=== PATIENT | male | born 1960 | race African-American/Black ===

== ENCOUNTER 2018-01-10 22:40 | Inpatient (IN) | payer OTHER ==
[2018-01-10] MEDS ORDERED: NA CHLORIDE 0.9% 1,000 ML ONE (23:35)
[2018-01-10 23:43] LABS: Absolute Lymphocytes (CBC) 2.2 K/uL (0.7-4.9); Absolute Monocytes 0.7 K/uL (0.1-1.3); Basophils % 1.3 % (0-1.3); Eosinophils % 1.2 % (0-4.4); Hematocrit 44.4 % (39.6-49.0); Lymphocytes % 24.1 % (15.3-44.8); MCH 30.3 pg (27.0-35.0); MCV 95.5 fL (80-100); MPV 10.9 fL (7.6-11.3); Monocytes % 7.6 % (3.3-12.3); RBC Red Blood Cell Count 4.65 M/uL (4.33-5.43)
[2018-01-10 23:52] LABS: Urine Blood 1+ (NEG); Urine Glucose 2+ (NEG); Urine Protein NEGATIVE (NEG); Urine pH 5.5 (5.0-7.0)
[2018-01-10 23:57] LABS: Potassium 4.8 mEq/L (3.6-5.0)
[2018-01-11] MEDS ORDERED: NA CHLORIDE 0.9% 1,000 ML ONE (00:54)
--- NOTE | 2018-01-11 01:27 | EDPHYS ---
Physician Documentation [facility] Name: Shai Gonzalez Jr Age: 57 yrs Sex: Male : 1960 Arrival Date: 01/10/2018 Time: 22:41 Bed 19 Private MD: Trent Santiago H ED Physician Dylan Barroso HPI: 01/11 01:21 This 57 yrs old Black Male presents to ER via Ambulatory with complaints of polyuria gs elevated blood sugar. 01:21 Onset: The symptoms/episode began/occurred 2 week(s) ago, and became persistent. gs Associated signs and symptoms: Pertinent positives: polydipsia, polyphagia, Pertinent negatives: anorexia, constipation. Current symptoms: In the emergency department the patient's symptoms are unchanged from the initial presentation. The patient has experienced similar episodes in the past, several times. Historical: - Allergies: 01/10 22:58 No Known Allergies; fc - Home Meds: 22:58 tolterodine 4 mg oral cp24 1 cap once daily [Active]; fc 23:02 Lasix 20 mg Oral tab 1 tab 2 times per day [Active]; cyclobenzaprine 10 mg Oral tab 1 fc tab as needed [Active]; amlodipine 10 mg tab 1 tab once daily [Active]; tramadol 50 mg Oral tab 1 tab as needed [Active]; - PMHx: 22:58 Asthma; Hypertension; Gout; fc 23:02 Back pain; fc - PSHx: 23:02 None; fc - Immunization history:: Last tetanus immunization: unknown. - Social history:: Smoking status: Patient/guardian denies using tobacco. ROS: 01/11 01:21 All other systems are negative. gs Exam: 01:21 Head/Face: Normocephalic, atraumatic. Eyes: Pupils equal round and reactive to light, gs extra-ocular motions intact. Lids and lashes normal. Conjunctiva and sclera are non-icteric and not injected. Cornea within normal limits. Periorbital areas with no swelling, redness, or edema. ENT: Nares patent. No nasal discharge, no septal abnormalities noted. Tympanic membranes are normal and external auditory canals are clear. Oropharynx with no redness, swelling, or masses, exudates, or evidence of obstruction, uvula midline. Mucous membranes moist. Neck: Trachea midline, no thyromegaly or masses palpated, and no cervical lymphadenopathy. Supple, full range of motion without nuchal rigidity, or vertebral point tenderness. No Meningismus. Chest/axilla: Normal chest wall appearance and motion. Nontender with no deformity. No lesions are appreciated. Cardiovascular: Regular rate and rhythm with a normal S1 and S2. No gallops, murmurs, or rubs. Normal PMI, no JVD. No pulse deficits. Respiratory: Lungs have equal breath sounds bilaterally, clear to auscultation and percussion. No rales, rhonchi or wheezes noted. No increased work of breathing, no retractions or nasal flaring. Abdomen/GI: Soft, non-tender, with normal bowel sounds. No distension or tympany. No guarding or rebound. No evidence of tenderness throughout. Back: No spinal tenderness. No costovertebral tenderness. Full range of motion. Skin: Warm, dry with normal turgor. Normal color with no rashes, no lesions, and no evidence of cellulitis. MS/ Extremity: Pulses equal, no cyanosis. Neurovascular intact. Full, normal range of motion. Neuro: Awake and alert, GCS 15, oriented to person, place, time, and situation. Cranial nerves II-XII grossly intact. Motor strength 5/5 in all extremities. Sensory grossly intact. Cerebellar exam normal. Normal gait. 01:21 Constitutional: The patient appears alert, awake. Vital Signs: 01/10 22:58 BP 153 / 70; Pulse 100; Resp 18; Temp 97.8(O); Pulse Ox 99% on R/A; Weight 145.15 kg fc (R); Height 5 ft. 11 in. (180.34 cm) (R); Pain 0/10; 23:47 BP 153 / 72; Pulse 99; Resp 18; Pulse Ox 100% on R/A; Pain 0/10; ea 01/11 00:08 BP 181 / 88; Pulse 90; Resp 19; Pulse Ox 99% on R/A; ea 01:02 BP 137 / 62; Pulse 95; Resp 18 S; Pulse Ox 99% on R/A; ea 01:37 BP 134 / 54; Pulse 90; Resp 20 S; Pulse Ox 98% on R/A; ea 02:19 BP 134 / 70; Pulse 92; Resp 18 S; Pulse Ox 99% on R/A; ea 04/10 22:58 Body Mass Index 44.63 (145.15 kg, 180.34 cm) MDM: 01/10 23:26 Patient medically screened. 01/11 01:21 Differential diagnosis: DKA, hyperglycemia, new onset diabetes. Data reviewed: vital gs signs, nurses notes. Response to treatment: the patient's symptoms have mildly improved after treatment, and as a result, I will admit patient. 01/10 23:19 Order name: Urine Dipstick--Ancillary (enter results); Complete Time: 00:20 rg2 01/10 23:26 Order name: CBC with Diff; Complete Time: 00:20 gs 01/10 23:26 Order name: Basic Metabolic Panel; Complete Time: 00:20 Administered Medications: 01/10 23:38 Drug: NS 0.9% 1000 ml Route: IV; Rate: 1 bolus; Site: right antecubital; ea 01/11 00:58 Follow up: Response: No adverse reaction; IV Status: Completed infusion; IV Intake: ea 1000ml 00:59 Drug: NS 0.9% 1000 ml Route: IV; Rate: 1 bolus; Site: right antecubital; ea 02:21 Follow up: Response: No adverse reaction; IV Status: Completed infusion ea Point of Care Testing: Blood Glucose: 01/10 23:10 Blood Glucose: 500 mg/dL; ea 01/11 02:19 Blood Glucose: 420 mg/dL; ea Ranges: Critical Glucose Levels:Adult <50 mg/dl or >400 mg/dl <40 mg/dl or >180 mg/dl Disposition: 01/11/18 01:27 Hospitalization ordered by Matty Pina for Inpatient Admission. Preliminary diagnosis is Hyperglycemia, unspecified. - Bed requested for Telemetry/MedSurg (Inpatient). - Status is Inpatient Admission. ea - Condition is Stable. - Problem is new. - Symptoms have improved. UTI on Admission? No Critical care time excluding procedures: 01:21 Critical care time: Bedside Care: 10 minutes, Consultation: 10 minutes, Family gs Intervention: 10 minutes. Total time: 30 minutes Signatures: Dispatcher [employer] EDMS Chretien, Merna, RN RN fc Dennys, Zeenat, RN RN cg Lozano, Esha, RN RN ea Barroso, Dylan, MD MD gs
--- NOTE | 2018-01-11 01:27 | ER ---
Nurse's Notes [facility] Name: Shai Gonzalez Jr Age: 57 yrs Sex: Male : 1960 Arrival Date: 01/10/2018 Time: 22:41 Bed 19 Private MD: Trent Santiago H Diagnosis: Hyperglycemia, unspecified Presentation: 01/10 22:54 Presenting complaint: Patient states: that for the past month he has been having fc trouble with urinating frequently, almost every hr. Always feeling thirsty. Went to dr and given Detrol with no improvement. Transition of care: patient was not received from another setting of care. Onset of symptoms was December 2017. Care prior to arrival: None. 22:54 Method Of Arrival: Ambulatory fc 22:54 Acuity: MARIA INES 3 fc Historical: - Allergies: 22:58 No Known Allergies; fc - Home Meds: 22:58 tolterodine 4 mg oral cp24 1 cap once daily [Active]; fc 23:02 Lasix 20 mg Oral tab 1 tab 2 times per day [Active]; cyclobenzaprine 10 mg Oral tab 1 fc tab as needed [Active]; amlodipine 10 mg tab 1 tab once daily [Active]; tramadol 50 mg Oral tab 1 tab as needed [Active]; - PMHx: 22:58 Asthma; Hypertension; Gout; fc 23:02 Back pain; fc - PSHx: 23:02 None; fc - Immunization history:: Last tetanus immunization: unknown. - Social history:: Smoking status: Patient/guardian denies using tobacco. Screenin:38 Abuse screen: Denies threats or abuse. Nutritional screening: No deficits noted. ea Tuberculosis screening: No symptoms or risk factors identified. Fall Risk None identified. Assessment: 23:30 General: Appears in no apparent distress. Behavior is calm, cooperative, appropriate ea for age. General: pt states " I have been urinating a lot and I have been thirsty" , reports he has been urinating a lot for the past few days. . Pain: Denies pain. Neuro: Level of Consciousness is awake, alert, obeys commands, Oriented to person, place, time, situation. Cardiovascular: Heart tones S1 S2 present Patient's skin is warm and dry. Respiratory: Airway is patent Respiratory effort is even, unlabored, Respiratory pattern is regular, symmetrical, Breath sounds are clear bilaterally. GI: No signs and/or symptoms were reported involving the gastrointestinal system. Abdomen is round Bowel sounds present X 4 quads. : Reports excessive urination. EENT: No signs and/or symptoms were reported regarding the EENT system. Derm: Skin is dry, Skin is normal, Skin temperature is warm. Musculoskeletal: Range of motion: intact in all extremities. 01/11 00:59 Reassessment: Patient and/or family updated on plan of care and expected duration. Pain ea level reassessed. Patient is alert, oriented x 3, equal unlabored respirations, skin warm/dry/pink. pt blood glucose >500, physician notified, order obtained, med administered pt tolerated well. 01:37 Reassessment: Patient and/or family updated on plan of care and expected duration. Pain ea level reassessed. Patient is alert, oriented x 3, equal unlabored respirations, skin warm/dry/pink. Patient denies pain at this time. 02:19 Reassessment: Patient and/or family updated on plan of care and expected duration. Pain ea level reassessed. Patient is alert, oriented x 3, equal unlabored respirations, skin warm/dry/pink. Patient denies pain at this time. 02:41 Reassessment: Patient and/or family updated on plan of care and expected duration. Pain ea level reassessed. Patient is alert/active/playful, equal unlabored respirations, skin warm/dry/pink. Report given to receiving nurse. Vital Signs: 01/10 22:58 BP 153 / 70; Pulse 100; Resp 18; Temp 97.8(O); Pulse Ox 99% on R/A; Weight 145.15 kg fc (R); Height 5 ft. 11 in. (180.34 cm) (R); Pain 0/10; 23:47 BP 153 / 72; Pulse 99; Resp 18; Pulse Ox 100% on R/A; Pain 0/10; ea 01/11 00:08 BP 181 / 88; Pulse 90; Resp 19; Pulse Ox 99% on R/A; ea 01:02 BP 137 / 62; Pulse 95; Resp 18 S; Pulse Ox 99% on R/A; ea 01:37 BP 134 / 54; Pulse 90; Resp 20 S; Pulse Ox 98% on R/A; ea 02:19 BP 134 / 70; Pulse 92; Resp 18 S; Pulse Ox 99% on R/A; ea 01/10 22:58 Body Mass Index 44.63 (145.15 kg, 180.34 cm) ED Course: 01/10 22:41 Patient arrived in ED. am2 22:41 Jack JanieDO Luz Maria is Private Physician. am2 22:55 Triage completed. 22:58 Arm band placed on Patient placed in an exam room, on a stretcher. 23:04 Dylan Barroso MD is Attending Physician. gs 23:04 Esha Lozano, JUAN M is Primary Nurse. ea 23:10 Patient has correct armband on for positive identification. Placed in gown. Bed in low ea position. Call light in reach. Side rails up X 1. 23:30 Inserted saline lock: 20 gauge in right antecubital area, using aseptic technique. ea Blood collected. 01/11 01:26 Matty Pina MD is Hospitalizing Provider. gs 01:34 No provider procedures requiring assistance completed. Patient admitted, IV remains in ea place. Administered Medications: 01/10 23:38 Drug: NS 0.9% 1000 ml Route: IV; Rate: 1 bolus; Site: right antecubital; ea 01/11 00:58 Follow up: Response: No adverse reaction; IV Status: Completed infusion; IV Intake: ea 1000ml 00:59 Drug: NS 0.9% 1000 ml Route: IV; Rate: 1 bolus; Site: right antecubital; ea 02:21 Follow up: Response: No adverse reaction; IV Status: Completed infusion ea Point of Care Testing: Blood Glucose: 01/10 23:10 Blood Glucose: 500 mg/dL; ea 01/11 02:19 Blood Glucose: 420 mg/dL; ea Ranges: Intake: 00:58 IV: 1000ml; Total: 1000ml. ea Outcome: 01:27 Decision to Hospitalize by Provider. gs 01:34 Instructed on the need for admit, Demonstrated understanding of instructions. ea 02:40 Condition: stable ea 02:42 Admitted to Med/surg accompanied by tech, via wheelchair, room 429, Report called to ea Receiving nurse. 02:56 Patient left the ED. ea Signatures: Merna Gutierrez RN RN Vernell Rodriguez am2 Lozano, Esha, Dylan Randall RN, ea, MD MD gs Corrections: (The following items were deleted from the chart) 01/10 23: 00:10 General: Appears in no apparent distress. Behavior is calm, cooperative, ea appropriate for age, ea 00:10 Pain: Denies pain. ea ea 00:10 Neuro: Level of Consciousness is awake, alert, obeys commands, Oriented to ea person, place, time, situation, ea 00:10 General: pt states " I have been urinating a lot and I have been thirsty" , ea reports he has been urinating a lot for the past few days. . ea : 00:10 Cardiovascular: Heart tones S1 S2 present Patient's skin is warm and dry. ea ea 00:10 Respiratory: Airway is patent Respiratory effort is even, unlabored, Respiratory ea pattern is regular, symmetrical, Breath sounds are clear bilaterally. ea 00:10 GI: No signs and/or symptoms were reported involving the gastrointestinal system. ea Abdomen is round Bowel sounds present X 4 quads. ea 00:10 : Reports excessive urination ea ea 00:10 EENT: No signs and/or symptoms were reported regarding the EENT system. ea ea 00:10 Derm: Skin is dry, Skin is normal, Skin temperature is warm ea ea 00:10 Musculoskeletal: Range of motion: intact in all extremities, ea ea 00:00 Blood Glucose: Blood Glucose Jzuwwqt=219 mg/dL. ea ea : 22:59 Blood Glucose: Blood Glucose Izsawpq=168 mg/dL. ea ea
[2018-01-11] MEDS ORDERED: ONDANSETRON 4 MG/2 ML VIAL IV PRN (01:45)
[2018-01-11] MEDS ORDERED: MORPHINE 2 MG/ML SYR IV PRN (01:45)
[2018-01-11] MEDS ORDERED: ACETAMINOPHEN 500 MG TAB PO PRN (01:45)
[2018-01-11 03:07] VITALS: O2SAT 99
[2018-01-11] MEDS: NA CHLORIDE 0.9% 1,000 ML IV SCH ×4 (03:40→20:39)
[2018-01-11 04:32] VITALS: BMI 41.2
[2018-01-11 06:03] LABS: Absolute Lymphocytes (CBC) 2.1 K/uL (0.7-4.9); Absolute Monocytes 0.9 K/uL (0.1-1.3); Absolute Neutrophil 6.1 K/uL (1.8-8.0); Basophils % 0.7 % (0-1.3); Hematocrit 38.5 % (39.6-49.0); Lymphocytes % 22.9 % (15.3-44.8); MCH 29.9 pg (27.0-35.0); MCV 92.4 fL (80-100); MPV 10.8 fL (7.6-11.3); Monocytes % 9.5 % (3.3-12.3); RBC Red Blood Cell Count 4.17 M/uL (4.33-5.43)
[2018-01-11 06:20] LABS: Albumin 3.6 g/dL (3.2-5.5); Bilirubin Total 1.6 mg/dL (0.3-1.2); Potassium 4.4 mEq/L (3.6-5.0); Protein, Total 6.9 g/dL (6.0-8.3)
--- NOTE | 2018-01-11 06:20 | P.HP ---
Certification for Inpatient Patient admitted to: Observation With expected LOS: <2 Midnights Patient will require the following post-hospital care: None Practitioner: I am a practitioner with admitting privileges, knowledge of patient current condition, hospital course, and medical plan of care. Services: Services provided to patient in accordance with Admission requirements found in Title 42 Section 412.3 of the Code of Federal Regulations Patient History Date of Service: 01/11/18 Reason for admission: Hyperosmolar nonketotic syndrome History of Present Illness: Patient is a 57-year-old gentleman who came into the hospital with hyperglycemia. Patient has been running elevated blood sugars for the last 6 months. He has a Glucometer, and in May of last year his blood sugars were in the 200s at times. He started rechecking his blood sugars again in November. His blood sugars have been in the 400s or high. He has not been feeling well and has lost 20-30 lb over the last few months. He does have polydipsia, polyphagia, and polyuria. Patient was admitted to the hospital for further evaluation as his blood sugars were greater than 800. He will need diabetic education prior to discharge. Will have the nursing staff provide this. Allergies No Known Allergies Allergy (Unverified 12/26/11 06:20) Home Medications: Amlodipine Besylate [Amlodipine Besylate] 1 tab PO DAILY 01/11/18 Finasteride [Finasteride] 1 tab PO DAILY 01/11/18 Furosemide [Furosemide] 1 tab PO BIDP PRN 01/11/18 Lifitegrast [Xiidra] 1 drop EACH EYE BID 01/11/18 Tolterodine Tartrate [Tolterodine Tartrate ER] 1 cap PO DAILY 01/11/18 traMADol HCL [Ultram*] 1 tab PO BIDP PRN 01/11/18 - Past Medical/Surgical History Has patient received pneumonia vaccine in the past: No Diabetic: No -: gout -: HTN -: cataracts -: L knee surgery -: hip abscess removal - Family History Father Family History: Reviewed- Non-Contributory - Social History Smoking Status: Never smoker Alcohol use: Yes CD- Drugs: No Caffeine use: Yes Place of Residence: Home Review of Systems 10-point ROS is otherwise unremarkable Physical Examination - Vital Signs Temperature: 97.9 F Blood Pressure: 127/70 Pulse: 88 Respirations: 18 Pulse Ox (%): 98 - Physical Exam General: Alert, In no apparent distress, Oriented x3 HEENT: Atraumatic, PERRLA, Mucous membr. moist/pink, EOMI, Sclerae nonicteric Neck: Supple, 2+ carotid pulse no bruit, No LAD, Without JVD or thyroid abnormality Respiratory: Clear to auscultation bilaterally, Normal air movement Cardiovascular: Regular rate/rhythm, Normal S1 S2, No murmurs Gastrointestinal: Normal bowel sounds, Soft and benign, Non-distended, No tenderness Musculoskeletal: No clubbing, No swelling, No tenderness Integumentary: No rashes Neurological: Normal gait, Normal speech, Normal strength at 5/5 x4 extr, Normal tone, Sensation intact, Cranial nerves 3-12 intact, Normal affect Lymphatics: No axilla or inguinal lymphadenopathy - Studies Laboratory Data (last 24 hrs) 01/10/18 23:32: Sodium 128 L, Potassium 4.8, BUN 27 H, Creatinine 1.26 H, Glucose 841 H* 01/10/18 23:32: WBC 9.1, Hgb 14.1, Hct 44.4, Plt Count 220 Assessment & Plan - Problems (Diagnosis) (1) Hyperosmolar non-ketotic state in patient with type 2 diabetes mellitus Current Visit: Yes Status: Acute (2) History of hypertension Current Visit: Yes Status: Acute (3) History of gout Current Visit: Yes Status: Acute - Plan Plan: 1. Start him on oral hypoglycemic agents 2. Aggressive IV hydration 3. Diabetic education 4. Check a hemoglobin A1c 5. Strict blood pressure control 6. Check lipid profile 7. GI and DVT prophylaxis Discharge Plan: Home Plan to discharge in: 24 Hours - Advance Directives Does patient have a Living Will: No Does patient have a Durable POA for Healthcare: No - Code Status/Comfort Care Code Status Assessed: Yes Code Status: Full Code Critical Care: No Time Spent Managing PTS Care (In Minutes): 50
[2018-01-11] MEDS ORDERED: GLUCAGON 1 MG/VIAL IM PRN (06:31)
[2018-01-11] MEDS ORDERED: D50W 25 GM/50 ML SYRINGE IV PRN (06:31)
[2018-01-11] MEDS: INSULIN -REGULAR HUMAN 50 UNIT/0.5 ML ML SQ SCH ×4 (08:00→20:38)
[2018-01-11] MEDS ORDERED: INSULIN DETEMIR 100 UNIT/1 ML INSULIN SQ SCH ×2 (08:00→21:00)
[2018-01-11] MEDS ORDERED: GLIMEPIRIDE 2 MG TABLET PO SCH (08:00)
[2018-01-11] MEDS ORDERED: glipiZIDE 5 MG TAB PO SCH (08:00)
[2018-01-11 08:51] LABS: Thyroid Stimulating Hormone 0.88 uIU/mL (0.34-5.60)
[2018-01-11] MEDS: FINASTERIDE 5 MG TAB PO SCH (09:00)
[2018-01-11] MEDS: LIFITEGRAST EACH EYE SCH ×2 (09:00→20:29)
[2018-01-11] MEDS ORDERED: TOLTERODINE LA 4 MG CAP PO SCH (09:00)
[2018-01-11] MEDS ORDERED: LISINOPRIL 10 MG TAB PO SCH ×2 (09:00→12:00)
[2018-01-11] MEDS ORDERED: AMLODIPINE 10 MG TAB PO SCH (09:00)
[2018-01-11 09:32] LABS: A1c Component ND mg/dL; Hemoglobin A1c ND % (4-6.0)
[2018-01-11] MEDS: METFORMIN HCL 500 MG TAB PO SCH ×2 (09:37→17:05)
--- NOTE | 2018-01-11 10:49 | P.PN ---
Subjective Date of Service: 01/11/18 Primary Care Provider: Dr. Santiago Chief Complaint: Hyperosmolar nonketotic syndrome Subjective: Improving Physical Examination - Vital Signs Temperature: 97.6 F Blood Pressure: 163/75 Pulse: 89 Respirations: 18 Pulse Ox (%): 98 - Physical Exam General: Alert, In no apparent distress, Oriented x3, Cooperative HEENT: Atraumatic Neck: Supple Respiratory: Clear to auscultation bilaterally, Normal air movement Cardiovascular: Normal pulses, Regular rate/rhythm Gastrointestinal: Normal bowel sounds, Soft and benign, Non-distended Musculoskeletal: No erythema, No tenderness, No warmth Integumentary: No erythema, No warmth, No cyanosis Neurological: Normal speech, Normal strength at 5/5 x4 extr, Normal tone, Normal affect Lymphatics: No axilla or inguinal lymphadenopathy - Studies Laboratory Data (last 24 hrs) 01/10/18 23:32: Sodium 128 L, Potassium 4.8, BUN 27 H, Creatinine 1.26 H, Glucose 841 H* 01/10/18 23:32: WBC 9.1, Hgb 14.1, Hct 44.4, Plt Count 220 Medications List Reviewed: Yes Assessment & Plan - Problems (Diagnosis) (1) Diabetes mellitus Current Visit: Yes Status: Chronic Plan: Will check A1c. Will start basal insulin and metformin. Will teach on diabetes. Will reassess. Anticipate discharge tomorrow once blood sugars are improved. Will continue to monitor closely. Qualifiers: Diabetes mellitus type: type 2 Diabetes mellitus rat exterminator insulin use: without rat exterminator use Diabetes mellitus complication status: with hyperglycemia Qualified Code(s): E11.65 - Type 2 diabetes mellitus with hyperglycemia (2) Obesity Current Visit: Yes Status: Chronic Plan: Will teach on lifestyle modification education. Qualifiers: Obesity type: due to excess calories Obesity classification: adult class 3 (BMI >= 40) Serious obesity comorbidity presence: with serious comorbidity Body mass index: BMI 40.0-44.9 Qualified Code(s): E66.01 - Morbid (severe) obesity due to excess calories; Z68.41 - Body mass index (BMI) 40.0-44.9, adult ; Z68.41 - Body mass index (BMI) 40.0-44.9, adult; Z68.41 - Body mass index (BMI ) 40.0-44.9, adult; Z68.41 - Body mass index (BMI) 40.0-44.9, adult (3) Hypertension Current Visit: Yes Status: Chronic Plan: Will discontinue Norvasc and switched to lisinopril. Will monitor closely and adjust. Qualifiers: Hypertension type: essential hypertension Qualified Code(s): I10 - Essential (primary) hypertension (4) Hyperosmolar non-ketotic state in patient with type 2 diabetes mellitus Onset Date: 01/11/18 Current Visit: Yes Status: Acute Plan: This has improved. Will start basal insulin and metformin. Will teach on diabetes. Anticipate possible discharge tomorrow once blood sugar better improved. (5) Hyponatremia Current Visit: Yes Status: Acute Plan: Will continue with IV fluids. Will monitor and adjust appropriately. (6) BPH (benign prostatic hyperplasia) Current Visit: Yes Status: Chronic Plan: Will continue with his medication. Will need to consider checking PSA. This can be further evaluated as an outpatient by urology. Qualifiers: Lower urinary tract symptom presence: unspecified whether lower urinary tract symptoms present Qualified Code(s): N40.0 - Benign prostatic hyperplasia without lower urinary tract symptoms Discharge Plan: Home Plan to discharge in: 24 Hours Time Spent Managing Pts Care (In Minutes): 55
[2018-01-11] MEDS: ENOXAPARIN 40 MG/0.4 ML SQ SCH (17:04)
[2018-01-11] MEDS: MORPHINE 4 MG/ML SYR IV PRN (18:16)
[2018-01-11] MEDS: ATORVASTATIN 10 MG TAB PO SCH (20:37)
[2018-01-12 04:24] LABS: Absolute Monocytes 0.6 K/uL (0.1-1.3); Basophils % 1.1 % (0-1.3); Eosinophils % 1.7 % (0-4.4); Hematocrit 36.8 % (39.6-49.0); Lymphocytes % 29.5 % (15.3-44.8); MCH 29.8 pg (27.0-35.0); MPV 10.6 fL (7.6-11.3); Monocytes % 8.9 % (3.3-12.3); RBC Red Blood Cell Count 4.04 M/uL (4.33-5.43)
[2018-01-12 04:46] LABS: ALT/SGPT 15 IU/L (10-60); AST/SGOT 11 IU/L (10-42); Albumin 3.3 g/dL (3.2-5.5); Alkaline Phosphatase 52 IU/L (42-121); BUN Blood Urea Nitrogen 19 mg/dL (6-20); Bicarbonate 24 mEq/L (21-31); Glucose Level 379 mg/dL (65-120); Potassium 3.6 mEq/L (3.6-5.0); Protein, Total 6.4 g/dL (6.0-8.3); Sodium Level 134 mEq/L (135-145)
[2018-01-12] MEDS: LIFITEGRAST EACH EYE SCH ×2 (08:41→21:00)
[2018-01-12] MEDS: FINASTERIDE 5 MG TAB PO SCH (08:42)
[2018-01-12] MEDS: INSULIN DETEMIR 100 UNIT/1 ML INSULIN SQ SCH ×3 (08:49→21:47)
[2018-01-12] MEDS: LISINOPRIL 10 MG TAB PO SCH (08:50)
[2018-01-12] MEDS: AMLODIPINE 10 MG TAB PO SCH (08:50)
[2018-01-12] MEDS: METFORMIN HCL 500 MG TAB PO SCH ×2 (08:50→17:50)
[2018-01-12] MEDS: INSULIN -REGULAR HUMAN 50 UNIT/0.5 ML ML SQ SCH ×4 (08:53→21:00)
[2018-01-12] MEDS: NA CHLORIDE 0.9% 1,000 ML IV SCH (09:25)
--- NOTE | 2018-01-12 11:34 | P.PN ---
Subjective Date of Service: 01/12/18 Primary Care Provider: Dr. Santiago Chief Complaint: Hyperosmolar nonketotic syndrome Subjective: Improving Physical Examination - Vital Signs Temperature: 98 F Blood Pressure: 140/70 Pulse: 115 Respirations: 18 Pulse Ox (%): 97 - Physical Exam General: Alert, In no apparent distress, Oriented x3, Cooperative HEENT: Atraumatic, Mucous membr. moist/pink Neck: Supple Respiratory: Clear to auscultation bilaterally, Normal air movement Cardiovascular: Normal pulses, Regular rate/rhythm Gastrointestinal: Normal bowel sounds, Soft and benign, Non-distended, No tenderness, No masses, No rebound, No guarding Musculoskeletal: No erythema, No tenderness, No warmth Integumentary: No tenderness/swelling, No erythema, No warmth, No cyanosis Neurological: Normal speech, Normal strength at 5/5 x4 extr, Normal tone, Normal affect Lymphatics: No axilla or inguinal lymphadenopathy - Studies Medications List Reviewed: Yes Assessment & Plan - Problems (Diagnosis) (1) Diabetes mellitus Current Visit: Yes Status: Chronic Plan: A1c elevated and not able to quantify. Insulin therapy has been increased. Patient on metformin. ADA diet, insulin therapy education has been addressed in detail. This was readdressed with him today. Will monitor blood sugars closely. If blood sugars remain below 300-400 will consider discharge later today. If it remains above 400 will keep in 1 more date for better control. Will reassess this afternoon.. Qualifiers: Diabetes mellitus type: type 2 Diabetes mellitus intermediate insulin use: without long term care administrator use Diabetes mellitus complication status: with hyperglycemia Qualified Code(s): E11.65 - Type 2 diabetes mellitus with hyperglycemia (2) Obesity Current Visit: Yes Status: Chronic Plan: Will continue to teach on lifestyle modification education. Qualifiers: Obesity type: due to excess calories Obesity classification: adult class 3 (BMI >= 40) Serious obesity comorbidity presence: with serious comorbidity Body mass index: BMI 40.0-44.9 Qualified Code(s): E66.01 - Morbid (severe) obesity due to excess calories; Z68.41 - Body mass index (BMI) 40.0-44.9, adult ; Z68.41 - Body mass index (BMI) 40.0-44.9, adult; Z68.41 - Body mass index (BMI ) 40.0-44.9, adult; Z68.41 - Body mass index (BMI) 40.0-44.9, adult (3) Hypertension Current Visit: Yes Status: Chronic Plan: Will continue with Norvasc and Lisinopril. Qualifiers: Hypertension type: essential hypertension Qualified Code(s): I10 - Essential (primary) hypertension (4) Hyperosmolar non-ketotic state in patient with type 2 diabetes mellitus Onset Date: 01/11/18 Current Visit: Yes Status: Acute Plan: This has improved. Will continue with basal insulin and metformin. Will teach on diabetes. Anticipate possible discharge later today (5) Hyponatremia Current Visit: Yes Status: Acute Plan: Will continue with IV fluids. Will monitor and adjust appropriately. (6) BPH (benign prostatic hyperplasia) Current Visit: Yes Status: Chronic Plan: Will discontinue with his medication. This can be further evaluated as an outpatient by urology. Qualifiers: Lower urinary tract symptom presence: unspecified whether lower urinary tract symptoms present Qualified Code(s): N40.0 - Benign prostatic hyperplasia without lower urinary tract symptoms Discharge Plan: Home Plan to discharge in: 24 Hours Time Spent Managing Pts Care (In Minutes): 55
[2018-01-12] MEDS: TRAMADOL HCL 50 MG TAB PO PRN (11:35)
[2018-01-12] MEDS: ASPIRIN EC 81 MG TAB PO SCH (12:43)
[2018-01-12] MEDS: ENOXAPARIN 40 MG/0.4 ML SQ SCH (17:51)
[2018-01-12] MEDS: ATORVASTATIN 10 MG TAB PO SCH (21:46)
[2018-01-12] MEDS: MORPHINE 4 MG/ML SYR IV PRN (21:48)
[2018-01-13] MEDS ORDERED: INSULIN DETEMIR 100 UNIT/1 ML INSULIN SQ SCH (07:26)
[2018-01-13] MEDS: LIFITEGRAST EACH EYE SCH (09:00)
[2018-01-13] MEDS: INSULIN -REGULAR HUMAN 50 UNIT/0.5 ML ML SQ SCH ×2 (09:49→12:31)
[2018-01-13] MEDS: TRAMADOL HCL 50 MG TAB PO PRN (09:50)
[2018-01-13] MEDS: ASPIRIN EC 81 MG TAB PO SCH (09:51)
[2018-01-13] MEDS: LISINOPRIL 10 MG TAB PO SCH (09:51)
[2018-01-13] MEDS: METFORMIN HCL 500 MG TAB PO SCH (09:52)
[2018-01-13] MEDS: AMLODIPINE 10 MG TAB PO SCH (09:52)
[2018-01-13 11:28] VITALS: BP 113/61; TEMP 97.2
--- NOTE | 2018-01-13 14:21 | P.DS ---
Admission Date: 01/11/18 Discharge Date: 01/13/18 Primary Care Provider: Dr. Santiago Disposition: ROUTINE DISCHARGE Discharge Condition: GOOD Reason for Admission: Hyperosmolar nonketotic syndrome - Problems (1) Diabetes mellitus Status: Chronic Qualifiers: Diabetes mellitus type: type 2 Diabetes mellitus long term care pharmacist insulin use: without jail use Diabetes mellitus complication status: with hyperglycemia Qualified Code(s): E11.65 - Type 2 diabetes mellitus with hyperglycemia (2) Obesity Status: Chronic Qualifiers: Obesity type: due to excess calories Obesity classification: adult class 3 (BMI >= 40) Serious obesity comorbidity presence: with serious comorbidity Body mass index: BMI 40.0-44.9 Qualified Code(s): E66.01 - Morbid (severe) obesity due to excess calories; Z68.41 - Body mass index (BMI) 40.0-44.9, adult ; Z68.41 - Body mass index (BMI) 40.0-44.9, adult; Z68.41 - Body mass index (BMI ) 40.0-44.9, adult; Z68.41 - Body mass index (BMI) 40.0-44.9, adult (3) Hypertension Status: Chronic Qualifiers: Hypertension type: essential hypertension Qualified Code(s): I10 - Essential (primary) hypertension (4) Hyperosmolar non-ketotic state in patient with type 2 diabetes mellitus Onset Date: 01/11/18 Status: Acute (5) Hyponatremia Status: Acute (6) BPH (benign prostatic hyperplasia) Status: Chronic Qualifiers: Lower urinary tract symptom presence: unspecified whether lower urinary tract symptoms present Qualified Code(s): N40.0 - Benign prostatic hyperplasia without lower urinary tract symptoms Brief History of Present Illness: 57-year-old male presented to the emergency room with hyperglycemia. Patient found to have hyperosmolar hyperglycemia. Patient with diabetes. Patient had not been diagnose in the past but reported that he had elevated blood sugars. Patient was admitted due to elevated blood sugars. Hospital Course: Patient found to have diabetes. Patient had reported elevated blood sugars in the past. He was not taking any medication. During this time his blood sugars have not been well controlled. He was found to have blood sugars in the range of 800. Hemoglobin A1c was not able to be quantified. The patient was treated during his stay. Patient was started on basal insulin. Better control of his blood sugars were achieved. Patient was started on metformin as well. At discharge patient will continue with Levemir 35 units subcu twice daily and metformin 500 mg 1 pill twice daily with food. Recommendation to maintain blood sugars less than 140 fasting and less than 200 after meals. Patient is to keep a log of his blood sugars. Patient may require further adjustment if blood sugars remain above 200. Further adjustment can be done with the help of his PCP. Patient may require endocrinology evaluation as an outpatient for better control. Patient will continue with a 2200 ADA diet. Education on diet , diabetes and insulin therapy will be provided. Patient has hypertension. Medications had to be adjusted. At discharge, Patient will continue with Norvasc 10 mg daily. Lisinopril 10 mg 1 pill daily has been added. Recommendation is to maintain blood pressures less 150/80. Recommendation is to keep a blood pressure log. Further adjustment can be done by his PCP. Recommendation is to recheck lab-BMP in 1 week to monitor his progress. Patient has hyperlipidemia. Patient started on Lipitor 10 mg 1 pill daily due to elevated lipid levels. This will be continued at discharge. Recommendation is to recheck fasting lipid panel in 1 week to make further adjustments. Patient with obesity. Lifestyle modification education will be provided. Patient likely has underlying sleep apnea. Recommendation is for the patient to have a sleep study done as an outpatient to further evaluate and address. Patient will continue with aspirin 81 mg daily. Previous medication of Proscar has been discontinued. Patient also had been taking medication for incontinence. Both medications were discontinued. PSA within normal range. If the patient has further problems with his prostate the patient may follow up with urology to further evaluate and address. Patient will need a follow up with his PCP to be reassess and be cleared to go back to work. Vital Signs/Physical Exam: Temp Pulse Resp BP Pulse Ox 97.2 F 86 20 113/61 98 01/13/18 11:28 01/13/18 11:28 01/13/18 11:28 01/13/18 11:28 01/13/18 11:28 General: Alert, In no apparent distress, Oriented x3, Cooperative HEENT: Atraumatic, Mucous membr. moist/pink Neck: Supple, No Thyromegaly Respiratory: Clear to auscultation bilaterally, Normal air movement Cardiovascular: Normal pulses, Regular rate/rhythm Gastrointestinal: Normal bowel sounds, Soft and benign, Non-distended, No tenderness, No masses, No rebound, No guarding Musculoskeletal: No erythema, No tenderness, No warmth Integumentary: No tenderness/swelling, No erythema, No warmth, No cyanosis Neurological: Normal speech, Normal strength at 5/5 x4 extr, Normal tone, Normal affect Laboratory Data at Discharge: WBC 6.8 K/uL (4.3-10.9) D 01/12/18 03:34 Hgb 12.1 g/dL (13.6-17.9) L 01/12/18 03:34 Hct 36.8 % (39.6-49.0) L 01/12/18 03:34 Plt Count 202 K/uL (152-406) 01/12/18 03:34 Sodium 134 mEq/L (135-145) L 01/12/18 03:34 Potassium 3.6 mEq/L (3.6-5.0) 01/12/18 03:34 BUN 19 mg/dL (6-20) 01/12/18 03:34 Creatinine 0.95 mg/dL (0.61-1.24) 01/12/18 03:34 Glucose 379 mg/dL (65-120) H 01/12/18 03:34 Total Bilirubin 1.0 mg/dL (0.3-1.2) 01/12/18 03:34 AST 11 IU/L (10-42) 01/12/18 03:34 ALT 15 IU/L (10-60) 01/12/18 03:34 Alkaline Phosphatase 52 IU/L (42-121) 01/12/18 03:34 Triglycerides 281 mg/dL (35-160) H 01/11/18 05:19 Cholesterol 232 mg/dL (<200) H 01/11/18 05:19 HDL Cholesterol 45 mg/dL (27-67) 01/11/18 05:19 Cholesterol/HDL Ratio 5.16 01/11/18 05:19 Home Medications: Lifitegrast [Xiidra] 1 drop EACH EYE BID 01/11/18 traMADol HCL [Ultram*] 1 tab PO BIDP PRN 01/11/18 Amlodipine Besylate 1 tab PO DAILY #30 tablet 01/12/18 Aspirin [Aspirin EC 81 MG] 81 mg PO DAILY #90 tablet. 01/12/18 Atorvastatin Calcium [Lipitor*] 10 mg PO BEDTIME #30 tab 01/12/18 Lisinopril [Prinivil*] 10 mg PO DAILY #30 tab 01/12/18 Metformin HCl [Glucophage*] 500 mg PO BIDWM #60 tab 01/12/18 Insulin Detemir [Levemir Flextouch] 35 unit SQ BID #1 sydney 01/13/18 New Medications: Amlodipine Besylate 1 tab PO DAILY #30 tablet Aspirin [Aspirin EC 81 MG] 81 mg PO DAILY #90 tablet. Atorvastatin Calcium [Lipitor*] 10 mg PO BEDTIME #30 tab Insulin Detemir [Levemir Flextouch] 35 unit SQ BID #1 sydney Lisinopril [Prinivil*] 10 mg PO DAILY #30 tab Metformin HCl [Glucophage*] 500 mg PO BIDWM #60 tab Patient Discharge Instructions: 1. Patient will need to follow up with his PCP within 1 week to follow up this hospitalization. 2. Patient found to have diabetes. This is not well controlled. Patient started on medication. At discharge patient will continue with Levemir 35 units subcu twice daily and metformin 500 mg 1 pill twice daily with food. Recommendation to maintain blood sugars less than 140 fasting and less than 200 after meals. Patient is to keep a log of his blood sugars. Patient may require further adjustment if blood sugars remain above 200. Further adjustment can be done with the help of his PCP. Patient may require endocrinology evaluation as an outpatient for better control. Patient will continue with a 2200 ADA diet. Education on diet , diabetes and insulin therapy will be provided. 3. Patient has hypertension. Patient will continue with Norvasc 10 mg daily. Lisinopril 10 mg 1 pill daily has been added. Recommendation is to maintain blood pressures less 150/ 80. Recommendation is to keep a blood pressure log. Further adjustment can be done by his PCP. Recommendation is to recheck lab-BMP in 1 week to monitor his progress. 4. Patient has hyperlipidemia. Patient started on Lipitor 10 mg 1 pill daily. This will be continued at discharge. Recommendation is to recheck fasting lipid panel in 1 week to make further adjustments. 5. Patient with obesity. Lifestyle modification education will be provided. 6. Patient likely has underlying sleep apnea. Recommendation is for the patient to have a sleep study done as an outpatient to further evaluate and address. 7. Patient will continue with aspirin 81 mg daily. 8. Previous medication of Proscar has been discontinued. PSA within normal range. If the patient has further problems with his prostate the patient may follow up with urology to further evaluate and address. 9. Patient will need a follow up with his PCP to be reassess and be cleared to go back to work. Diet: ADA (0 ADA) Activity: Ad naida Time spent managing pt's care (in minutes): 55
== END 2018-01-13 13:00 | disposition home or self-care (01) | DRG 637 ==
LOC: ER 22:40 → ERHOLD 01-11 01:32 → 4TH 01-11 02:17
PROVIDERS: ADMIT Hospitalist; ATTEND Hospitalist
DX: E11.65 Type 2 diabetes mellitus with hyperglycemia (principal); E11.00 Type 2 diabetes mellitus with hyperosmolarity without nonketotic hyperglycemic-hyperosmolar coma (NKHHC); Z68.41 Body mass index [BMI] 40.0-44.9, adult; E87.1 Hypo-osmolality and hyponatremia; E66.9 Obesity, unspecified; N40.0 Benign prostatic hyperplasia without lower urinary tract symptoms; I10 Essential (primary) hypertension; E78.5 Hyperlipidemia, unspecified
CPT/HCPCS: 36415; 80048; 80053; 80061; 81003; 82962; 83036; 84439; 84443; 85025; 96360; 96361; 99285; G0103; J1650; J2270; J7030

== ENCOUNTER 2018-07-14 14:42 | Emergency (ER) | payer OTHER ==
[2018-07-14] MEDS ORDERED: ONDANSETRON 4 MG/2 ML VIAL ONE (15:41)
[2018-07-14] MEDS ORDERED: MORPHINE 4 MG/ML SYR ONE ×2 (15:41→17:58)
--- NOTE | 2018-07-14 15:53 | RAD REPORT ---
EXAM DESCRIPTION: RAD - Chest Single View - 07/14/2018 3:43 pm CLINICAL HISTORY: abdominal pain Chest pain. COMPARISON: Chest Single View dated 11/30/2016; CHEST SINGLE VIEW dated 10/02/2013; CHEST SINGLE VIEW dated 05/17/2010; CHEST PA AND LAT 2 VIEW dated 10/28/2006 FINDINGS: Portable technique limits examination quality. Right lung base infiltrate is present with a small right pleural effusion. The heart is normal in siz e. No displaced fractures. IMPRESSION: Right lower lobe pneumonia.
[2018-07-14 16:18] LABS: Absolute Lymphocytes (CBC) 1.1 K/uL (0.7-4.9); Absolute Monocytes 0.5 K/uL (0.1-1.3); Absolute Neutrophil 9.8 K/uL (1.8-8.0); Basophils % 0.2 % (0-1.3); Eosinophils % 0.3 % (0-4.4); Hematocrit 47.1 % (39.6-49.0); Lymphocytes % 9.4 % (15.3-44.8); MCH 29.8 pg (27.0-35.0); MCV 90.7 fL (80-100); MPV 10.4 fL (7.6-11.3); Monocytes % 4.7 % (3.3-12.3)
[2018-07-14 16:23] LABS: Protime INR 1.07
[2018-07-14 16:40] LABS: ALT/SGPT 28 U/L (12-78); AST/SGOT 16 U/L (15-37); Albumin 4.1 g/dL (3.4-5.0); Alkaline Phosphatase 69 U/L (45-117); BUN Blood Urea Nitrogen 10 mg/dL (7-18); Bicarbonate 27 mmol/L (21-32); Bilirubin Direct 0.1 mg/dL (0-0.2); Bilirubin Total 0.4 mg/dL (0.2-1.0); Glucose Level 118 mg/dL (74-106); Lipase 162 U/L (73-393); Potassium 3.7 mmol/L (3.5-5.1); Protein, Total 8.8 g/dL (6.4-8.2); Sodium Level 139 mmol/L (136-145); Troponin I < 0.02 ng/mL (0.0-0.045)
[2018-07-14 17:13] LABS: Urine Blood 2+ (NEG); Urine Glucose NEGATIVE (NEG); Urine Protein 3+ (NEG); Urine pH 5.5 (5.0-7.0)
--- NOTE | 2018-07-14 17:24 | RAD REPORT ---
EXAM DESCRIPTION: CTAbdomen Pelvis W Contrast - 07/14/2018 5:12 pm CLINICAL HISTORY: Abdominal pain. ABD PAIN COMPARISON: Abdomen WWo Cont dated 02/23/2017 TECHNIQUE: Biphasic CT imaging of the abdomen and pelvis was performed with 100 ml non-ionic IV cont rast. All CT scans are performed using dose optimization technique as appropriate and may include automated exposure control or mA/KV adjustment according to patient size. FINDINGS: Airspace opacity is present in the right lung base with a right pleural effusion.10 mm per icardial lymph node noted. The liver demonstrates no focal mass or intrahepatic biliary dilatation. The spleen, pancreas, right adrenal gland and kidneys are normal. 3 cm left adrenal mass is present. Significant distention of the colon is present with abrupt transition in the left lower quadrant (kanika ge 49/93). A mass is suspected in this region. Omental caking is present along the greater omentum. M ild to moderate ascites. No evidence of significant lymphadenopathy. No lytic or blastic bone lesion. 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 Moderate grade obstruction of the proximal colon is likely caused by the tumor. Mild ascites. Airspace opacity with a right pleural effusion in the right base probably represents pneumonia or asp iration.
[2018-07-14] MEDS ORDERED: Levofloxacin 750mg IV 750 MG/150 ML BAG IV ONE (17:58)
--- NOTE | 2018-07-14 19:03 | ER ---
Nurse's Notes [facility] Name: Shai Gonzalez Jr Age: 57 yrs Sex: Male : 1960 Arrival Date: 07/14/2018 Time: 14:48 Bed 5 Private MD: Trent Santiago H Diagnosis: Pneumonia due to other specified bacteria;Neoplasm of uncertain behavior of colon Presentation: 07/14 14:59 Presenting complaint: Patient states: Lower abdominal pain that started this AM with aj nausea. reports the pain is worse after patient drinks alcohol. Transition of care: patient was not received from another setting of care. Onset of symptoms was July 14, 2018. Risk Assessment: Do you want to hurt yourself or someone else? Patient reports no desire to harm self or others. Initial Sepsis Screen: Does the patient meet any 2 criteria? No. Patient's initial sepsis screen is negative. Does the patient have a suspected source of infection? No. Patient's initial sepsis screen is negative. Care prior to arrival: None. 14:59 Method Of Arrival: Ambulatory aj 14:59 Acuity: MARIA INES 3 aj Triage Assessment: 15:00 General: Appears in no apparent distress. uncomfortable, obese, Behavior is calm, aj cooperative, appropriate for age. Pain: Complains of pain in right lower quadrant and left lower quadrant. Neuro: Level of Consciousness is awake, alert, obeys commands, Oriented to person, place, time, situation, Appropriate for age. Respiratory: Airway is patent Respiratory effort is even, unlabored, Respiratory pattern is regular, symmetrical. GI: Abdomen is flat. Derm: Skin is intact, is healthy with good turgor, Skin is pink, warm \\T\\ dry. normal. Historical: - Allergies: 15:00 No Known Allergies; aj - Home Meds: 15:00 amlodipine 10 mg tab 1 tab once daily [Active]; cyclobenzaprine 10 mg Oral tab 1 tab as aj needed [Active]; Lasix 20 mg Oral tab 1 tab 2 times per day [Active]; tolterodine 4 mg Oral cp24 1 cap once daily [Active]; tramadol 50 mg Oral tab 1 tab as needed [Active]; - PMHx: 15:00 Asthma; Back pain; Gout; Hypertension; Diabetes - NIDDM; aj - PSHx: 15:00 None; aj - Immunization history:: Adult Immunizations unknown. - Social history:: Smoking status: Patient uses tobacco products, denies chronic smoking, but will smoke occasionally, Patient uses alcohol, on a daily basis. - Ebola Screening: : Patient negative for fever greater than or equal to 101.5 degrees Fahrenheit, and additional compatible Ebola Virus Disease symptoms Patient denies exposure to infectious person Patient denies travel to an Ebola-affected area in the 21 days before illness onset No symptoms or risks identified at this time. Screenin:15 Abuse screen: Denies threats or abuse. Denies injuries from another. Nutritional ss screening: No deficits noted. Tuberculosis screening: Never had TB. Fall Risk None identified. Assessment: 15:15 General: Appears uncomfortable, Behavior is calm, cooperative, Reports feeling ill for ss intermittently x 1 week. Denies fever, chills. Pain: Complains of pain in suprapubic area and right lower quadrant Pain currently is 10 out of 10 on a pain scale. Quality of pain is described as aching, crampy, pressure, sharp, tender, Pain began 1 week ago Is intermittent. Neuro: Level of Consciousness is awake, alert, obeys commands, Oriented to person, place, time, situation, Yarn Skeins Examiner are equal bilaterally Speech is normal, Facial symmetry appears normal. Cardiovascular: Heart tones S1 S2 present Capillary refill < 3 seconds is brisk in bilateral fingers Patient's skin is warm and dry. Respiratory: Airway is patent Respiratory effort is even, unlabored, Respiratory pattern is regular, symmetrical. GI: Bowel sounds present X 4 quads. firm to touch in all quads, patient reports this is his baseline. Tenderness noted to L upper quadrant and suprapubic area on palpation Reports diarrhea, Patient currently denies nausea, vomiting. : No signs and/or symptoms were reported regarding the genitourinary system. EENT: Nares are clear. Derm: Skin is intact, is healthy with good turgor, Skin is dry, Skin is pink, warm \\T\\ dry. normal. Musculoskeletal: Circulation, motion, and sensation intact. Capillary refill < 3 seconds, is brisk, in bilateral fingers. Range of motion: intact in all extremities, Swelling absent. 15:59 Reassessment: Patient reports feeling "some" pain relief shortly after Morphine ss administration. Lights dimmed and blanket given for comfort. 16:41 Reassessment: Patient appears in no apparent distress at this time. Patient and/or ss family updated on plan of care and expected duration. Pain level reassessed. patient attempting to give urine specimen at this time. 17:55 Reassessment: Patient updated on POC. at bedside, call light remains within reach. ss Awaiting acceptance from transferring facility. Vital Signs: 15:00 BP 176 / 79; Pulse 84; Resp 16; Temp 97.9; Pulse Ox 96% on R/A; Weight 147.42 kg; aj Height 5 ft. 11 in. (180.34 cm); 15:30 Pain 10/10; ss 16:40 BP 167 / 92; Pulse 88; Resp 18; Pulse Ox 96% on R/A; Pain 7/10; ss 18:16 BP 147 / 85; Pulse 98; Resp 18; Pulse Ox 96% on R/A; ss 18:16 Pain 9/10; ss 19:40 BP 166 / 93; Pulse 96; Resp 20; Temp 98.1; Pulse Ox 96% on R/A; ak1 15:00 Body Mass Index 45.33 (147.42 kg, 180.34 cm) ED Course: 14:48 Patient arrived in ED. mr 14:48 Trent Santiago DO is Private Physician. mr 15:00 Triage completed. aj 15:00 Arm band placed on right wrist. Patient placed in an exam room. aj 15:11 Deondre Sinha PA is PHCP. cp 15:11 Corey Trinidad MD is Attending Physician. cp 15:15 Patient has correct armband on for positive identification. Bed in low position. Call ss light in reach. Side rails up X 1. Adult w/ patient. clinical research monitor on. Pulse ox on. NIBP on. 15:30 EKG done, by battery service technician. reviewed by Deondre BARBOSA. sm3 15:30 Inserted saline lock: 22 gauge in right antecubital area, using aseptic technique. ss Blood collected. Patient maintains SpO2 saturation greater than 95% on room air. 15:43 XRAY Chest (1 view) In Process Unspecified. EDMS 15:47 Yamilex Iglesias, JUAN M is Primary Nurse. 17:11 CT Abd/Pelvis - W/Contrast: give oral contrast In Process Unspecified. EDMS 18:00 initiated a transfer with Michelle at the [facility]. eb 18:26 connected the GI recreational specialist with Ernestine BARBOSA for patient transfer consultation they will be eb calling back with the hospitalist. 19:45 No provider procedures requiring assistance completed. Patient transferred, IV remains ak1 in place. Administered Medications: 15:45 Drug: Zofran 4 mg Route: IVP; Site: right antecubital; ss 16:15 Follow up: Response: No adverse reaction; Pain is decreased ss 15:47 Drug: morphine 4 mg Route: IVP; Site: right antecubital; ss 16:15 Follow up: Response: No adverse reaction; Pain is decreased ss 18:00 Drug: morphine 4 mg Route: IVP; Site: right antecubital; ss 19:16 Follow up: Response: No adverse reaction; Pain is decreased ss 18:05 Drug: LevaQUIN 750 mg Volume: 150 ml; Route: IVPB; Infused Over: 90 mins; Site: right ss antecubital; 19:53 Follow up: IV Status: Completed infusion ak1 20:22 Drug: Phenergan 25 mg Route: IVP; Site: right antecubital; ak1 20:35 Follow up: Response: No adverse reaction ak1 20:35 Drug: Dilaudid 1 mg Route: IVP; Site: right antecubital; ak1 20:35 Follow up: Response: No adverse reaction ak1 Outcome: 19:02 ER care complete, transfer ordered by . cp 19:45 Transferred by ground EMS to [facility], Transfer form completed. ak1 X-rays sent w/ patient. Note: report called to Wallace Viera RN for 1552 19:45 Condition: good 19:45 Instructed on the need for transfer. 20:36 Patient left the ED. ak1 Signatures: Dispatcher [employer] EDMS Vernell Blakely RN RN aj Rivera, Mary mr Smirch, Shelby, RN RN ss Krenek, Amber, RN RN ak1 Deondre Sinha PA PA cp Botello, Elizabeth eb Montes, Shakira 3
--- NOTE | 2018-07-14 19:03 | EDPHYS ---
Physician Documentation [facility] Name: Shai Gonzalez Jr Age: 57 yrs Sex: Male : 1960 Arrival Date: 07/14/2018 Time: 14:48 Bed 5 Private MD: Trent Santiago H ED Physician Corey Trinidad HPI: 07/14 15:20 This 57 yrs old Black Male presents to ER via Ambulatory with complaints of Abdominal cp Pain. 15:20 The patient presents with abdominal pain in the lower abdomen. cp 15:20 Onset: The symptoms/episode began/occurred this morning. Associated signs and symptoms: cp Pertinent positives: nausea, Pertinent negatives: blood in stools, chest pain, constipation, diarrhea, dysuria, fever, hematuria, shortness of breath, testicular pain, vomiting. The symptoms are described as constant. Historical: - Allergies: 15:00 No Known Allergies; aj - Home Meds: 15:00 amlodipine 10 mg tab 1 tab once daily [Active]; cyclobenzaprine 10 mg Oral tab 1 tab as aj needed [Active]; Lasix 20 mg Oral tab 1 tab 2 times per day [Active]; tolterodine 4 mg Oral cp24 1 cap once daily [Active]; tramadol 50 mg Oral tab 1 tab as needed [Active]; - PMHx: 15:00 Asthma; Back pain; Gout; Hypertension; Diabetes - NIDDM; aj - PSHx: 15:00 None; aj - Immunization history:: Adult Immunizations unknown. - Social history:: Smoking status: Patient uses tobacco products, denies chronic smoking, but will smoke occasionally, Patient uses alcohol, on a daily basis. - Ebola Screening: : Patient negative for fever greater than or equal to 101.5 degrees Fahrenheit, and additional compatible Ebola Virus Disease symptoms Patient denies exposure to infectious person Patient denies travel to an Ebola-affected area in the 21 days before illness onset No symptoms or risks identified at this time. ROS: 15:30 Constitutional: Negative for body aches, chills, fever, poor PO intake. cp 15:30 Eyes: Negative for injury, pain, redness, and discharge. cp 15:30 ENT: Negative for drainage from ear(s), ear pain, sore throat, difficulty swallowing, difficulty handling secretions. 15:30 Cardiovascular: Negative for chest pain, edema, palpitations. 15:30 Respiratory: Negative for cough, shortness of breath, wheezing. 15:30 Abdomen/GI: Positive for abdominal pain, nausea, Negative for vomiting, diarrhea, constipation, anorexia, black/tarry stool, rectal bleeding. 15:30 Back: Negative for pain at rest, pain with movement, radiated pain. 15:30 : Negative for urinary symptoms, testicular pain 15:30 Skin: Negative for cellulitis, rash. 15:30 Neuro: Negative for altered mental status, headache, weakness. 15:30 All other systems are negative. Exam: 15:30 ECG was reviewed by the Attending Physician. cp 15:34 Head/Face: Normocephalic, atraumatic. Eyes: Pupils equal round and reactive to light, cp extra-ocular motions intact. Lids and lashes normal. Conjunctiva and sclera are non-icteric and not injected. Cornea within normal limits. Periorbital areas with no swelling, redness, or edema. ENT: Nares patent. No nasal discharge, no septal abnormalities noted. Tympanic membranes are normal and external auditory canals are clear. Oropharynx with no redness, swelling, or masses, exudates, or evidence of obstruction, uvula midline. Mucous membranes moist. Chest/axilla: Normal chest wall appearance and motion. Nontender with no deformity. No lesions are appreciated. 15:34 Constitutional: The patient appears in no acute distress, alert, awake, non-diaphoretic, non-toxic, well developed, well nourished, obese, uncomfortable. 15:34 Cardiovascular: Rate: normal, Rhythm: regular, Pulses: Pulses are 2+ in right radial artery and left radial artery. Edema: is not appreciated, JVD: is not appreciated. 15:34 Respiratory: the patient does not display signs of respiratory distress, Respirations: normal, no use of accessory muscles, no retractions, no splinting, no tachypnea, labored breathing, is not present, Breath sounds: decreased breath sounds, that are mild, are located in both bases, stridor, is not appreciated, wheezing: is not appreciated. 15:34 Abdomen/GI: Inspection: obese Bowel sounds: active, all quadrants, Palpation: soft, in all quadrants, moderate abdominal tenderness, in the left lower quadrant, rebound tenderness, is not appreciated, voluntary guarding, is elicited in the left lower quadrant. 15:34 Back: pain, is absent, ROM is normal. 15:34 Skin: cellulitis, is not appreciated, no rash present. 15:34 Neuro: Orientation: to person, place \T\ time. Mentation: lucid, able to follow commands, Cerebellar function: is grossly normal, Motor: moves all fours, strength is normal, Sensation: no obvious gross deficits. Vital Signs: 15:00 BP 176 / 79; Pulse 84; Resp 16; Temp 97.9; Pulse Ox 96% on R/A; Weight 147.42 kg; aj Height 5 ft. 11 in. (180.34 cm); 15:30 Pain 10/10; ss 16:40 BP 167 / 92; Pulse 88; Resp 18; Pulse Ox 96% on R/A; Pain 7/10; ss 18:16 BP 147 / 85; Pulse 98; Resp 18; Pulse Ox 96% on R/A; ss 18:16 Pain 9/10; ss 19:40 BP 166 / 93; Pulse 96; Resp 20; Temp 98.1; Pulse Ox 96% on R/A; ak1 15:00 Body Mass Index 45.33 (147.42 kg, 180.34 cm) aj MDM: 15:11 Patient medically screened. cp 16:00 Differential diagnosis: appendicitis, bowel obstruction, diverticulitis, cp Pyelonephritis, Ureterolithiasis, urinary tract infection. 17:30 Data reviewed: vital signs, nurses notes, lab test result(s), EKG, radiologic studies, cp CT scan, plain films. 17:30 Test interpretation: by ED physician or midlevel provider: ECG, plain radiologic cp studies. Response to treatment: the patient's symptoms have mildly improved after treatment. 18:29 ED course: Consult with DR Braden, GI \T\[facility], will consult on patient and cp recommends transfer to care of hospitalist. 07/14 15:18 Order name: Basic Metabolic Panel cp 07/14 15:18 Order name: CBC with Diff cp 07/14 15:18 Order name: Creatinine for Radiology cp 07/14 15:18 Order name: Hepatic Function cp 07/14 15:18 Order name: Lipase; Complete Time: 16:46 cp 07/14 15:18 Order name: Magnesium; Complete Time: 16:46 cp 07/14 15:18 Order name: Troponin I; Complete Time: 16:46 cp 07/14 15:18 Order name: Basic Metabolic Panel; Complete Time: 16:46 EDMS 07/14 16:47 Interpretation: Normal except: GLUC 118. cp 07/14 15:18 Order name: CBC with Automated Diff; Complete Time: 17:24 EDMS 07/14 17:24 Interpretation: Normal except: WBC 11.5; ALIDA% 85.4; LYM% 9.4; NEUT A 9.8. cp 07/14 15:18 Order name: Creatinine (Radiology Only); Complete Time: 16:46 EDMS 07/14 15:18 Order name: Liver (Hepatic) Function; Complete Time: 16:46 EDMS 07/14 16:47 Interpretation: Normal except: TP 8.8; GLOB 4.7; A/G 0.9. cp 07/14 15:18 Order name: PT-INR; Complete Time: 17:24 cp 07/14 15:18 Order name: Ptt, Activated; Complete Time: 17:24 cp 07/14 17:10 Order name: Urine Dipstick--Ancillary (enter results); Complete Time: 17:24 eb 07/14 17:25 Interpretation: Normal except: UKET 2+; UBLD 2+; UPROT 3+. cp 07/14 15:18 Order name: IV Saline Lock; Complete Time: 16:02 cp 07/14 15:18 Order name: Labs collected and sent; Complete Time: 16:02 cp 07/14 15:18 Order name: CT Abd/Pelvis - W/Contrast: give oral contrast; Complete Time: 17:25 cp 07/14 17:26 Interpretation: Report reviewed. 07/14 15:18 Order name: XRAY Chest (1 view); Complete Time: 16:46 cp 07/14 15:18 Order name: EKG; Complete Time: 15:19 cp 07/14 15:18 Order name: EKG - Nurse/Tech; Complete Time: 16:01 cp 07/14 15:18 Order name: Urine Dipstick-Ancillary (obtain specimen); Complete Time: 17:58 cp EC:30 Rate is 83 beats/min. Rhythm is regular. TX interval is normal. QRS interval is normal. cp QT interval is normal. T waves are Inverted in leads I, II, aVL, aVF, V5, V6. Interpreted by me. Reviewed by me. Administered Medications: 15:45 Drug: Zofran 4 mg Route: IVP; Site: right antecubital; ss 16:15 Follow up: Response: No adverse reaction; Pain is decreased ss 15:47 Drug: morphine 4 mg Route: IVP; Site: right antecubital; ss 16:15 Follow up: Response: No adverse reaction; Pain is decreased ss 18:00 Drug: morphine 4 mg Route: IVP; Site: right antecubital; ss 19:16 Follow up: Response: No adverse reaction; Pain is decreased ss 18:05 Drug: LevaQUIN 750 mg Volume: 150 ml; Route: IVPB; Infused Over: 90 mins; Site: right ss antecubital; 19:53 Follow up: IV Status: Completed infusion ak1 20:22 Drug: Phenergan 25 mg Route: IVP; Site: right antecubital; ak1 20:35 Follow up: Response: No adverse reaction ak1 20:35 Drug: Dilaudid 1 mg Route: IVP; Site: right antecubital; ak1 20:35 Follow up: Response: No adverse reaction ak1 Disposition: 07/15 13:20 Co-signature as Attending Physician, Corey Trinidad MD I agree with the assessment and kdr plan of care. Disposition: 07/14/18 19:[address] [facility]. Diagnosis are Pneumonia due to other specified bacteria, Neoplasm of uncertain behavior of colon. - Reason for transfer: Higher level of care. - Accepting physician is DR Butt. - Condition is Stable. - Problem is new. - Symptoms have improved. Signatures: Dispatcher [employer] Vernell Fitzgerald RN RN aj Rittger, Kevin, MD MD kdr Smirch, Shelby, RN RN ss Krenek, Amber, RN RN ak1 Deondre Sinha PA PA cp Corrections: (The following items were deleted from the chart) 07/14 20:36 19:02 07/14/2018 19:[address] [facility]. Diagnosis is ak1 Pneumonia due to other specified bacteria; Neoplasm of uncertain behavior of colon. Reason for transfer: Higher level of care. Accepting physician is DR Butt. Condition is Stable. Problem is new. Symptoms have improved. cp
[2018-07-14] MEDS ORDERED: HYDROMORPHONE HCL 1 MG/ML INJ ONE (20:04)
[2018-07-14] MEDS ORDERED: PROMETHAZINE 25 MG/ML VIAL ONE (20:25)
[2018-07-14 20:40] VITALS: O2SAT 96
[2018-07-14 20:45] VITALS: BP 166/93; TEMP 98.1
--- NOTE | 2018-07-14 23:29 | EKG ---
Test Date: 2018-07-14 Test Time: 15:25:14 Pointer Machine Operator: LIDIA-Ynes MEASUREMENT RESULTS: Intervals: Rate: 83 MN: 156 QRSD: 80 QT: 372 QTc: 437 [place]: P: 49 MN: 156 QRS: 16 T: 131 INTERPRETIVE STATEMENTS: Normal sinus rhythm T wave abnormality, consider lateral ischemia Abnormal ECG Compared to ECG 12/20/2016 11:11:36 T-wave abnormality now present Left ventricular hypertrophy no longer present ST (T wave) deviation no longer present Possible ischemia still present Electronically Signed On 07-14-18 23:28:17 CDT by Ranjith Bailey
== END 2018-07-14 20:36 | disposition short-term general hospital (02) ==
LOC: ER 14:42
DX: J15.8 Pneumonia due to other specified bacteria (principal); D37.4 Neoplasm of uncertain behavior of colon; I10 Essential (primary) hypertension; E11.9 Type 2 diabetes mellitus without complications; Z72.0 Tobacco use
CPT/HCPCS: 36415; 71045; 74177; 80048; 80076; 81003; 83690; 83735; 84484; 85025; 85610; 85730; 93005; 96365; 96366; 96375; 99285; J1170; J2405; J2550; Q9967

== ENCOUNTER 2018-09-10 11:43 | Emergency (ER) | payer OTHER ==
--- OUTSIDE RECORDS SUMMARY | 2018-09-10 11:46 | XMS REPORT | Clinical Summary ---
:1960 Author Organization [facility] Address [address] [place] [address] Care Team Providers Name Role Phone Pcp, No Primary Care Provider Unavailable Allergies No Known Allergies Medications Medication Sig Dispensed Refills Start Date End Date Status lisinopril Take 20 mg by 0 Active (PRINIVIL,ZESTRIL) mouth daily 1 20 MG tablet tab by mouth daily . glimepiride (AMARYL) Take 2 mg by 0 Active 2 MG tablet mouth 2 (two) times daily. amLODIPine (NORVASC) Take 10 mg by 0 Active 10 MG tablet mouth daily. acetaminophen-codein Take 1 tablet 0 Active e (TYLENOL #3) by mouth 2 300-30 mg per tablet (two) times daily as needed for Pain. carvedilol (COREG) Take 2 tablets 120 tablet 0 07/20/2018 Active 3.125 MG tablet (6.25 mg 9 total) by mouth 2 (two) times daily with breakfast and dinner. carvedilol (COREG) Take 3.125 mg 0 Discontinued 3.125 MG tablet by mouth 2 8 (two) times daily with breakfast and dinner. cyclobenzaprine Take 1 tablet 30 tablet 0 07/20/2018 (FLEXERIL) 10 MG (10 mg total) 8 tablet by mouth 3 (three) times daily as needed for Muscle spasms for up to 10 days. HYDROcodone-acetamin Take 1 tablet 30 tablet 0 07/20/2018 ophen (NORCO 5-325) by mouth every 8 5-325 mg per tablet 4 (four) hours as needed for up to 10 days. Max Daily Amount: 6 tablets Active Problems Problem Noted Date Benign prostatic hyperplasia 07/16/2018 Diabetes mellitus 07/16/2018 Hypertension 07/16/2018 Descending colon CA s/p GI stent 07/15/18 07/16/2018 Large bowel obstruction 07/16/2018 Hypokalemia 07/16/2018 Morbid obesity 07/15/2018 Pneumonia 07/14/2018 History of gout 01/11/2018 Adrenal mass, left 01/18/2017 Encounters Date Type Specialty Care Team Description 07/18/2018 Surgery Gastroenterology Julius Umanzor MD 07/18/2018 Anesthesia Event Gastroenterology Ishaan Mcmullen MD 07/15/2018 Anesthesia Event Kimberlyn Mehta, PACKAGE DELIVERY DRIVER 07/15/2018 Anesthesia Event Gastroenterology Kimberlyn Mehta, PACKAGE DELIVERY DRIVER 07/15/2018 Surgery Gastroenterology Shiva Cordova COLONOSCOPY,FLUOROSC MD Naomi OPIC STENT PLACEMENT 07/14/[address] [facility] [address] [facility], Colon carcinoma metastatic to multiple sites (HCC); - Encounter Medicine Isis Bentley MD Morbid obesity (HCC); 07/20/2018 Tam, Preoperative cardiovascular examination; Jessi Essential hypertension; MD Heather Alcohol abuse; Colonic mass; Type 2 diabetes mellitus with complication, without long-term current use of insulin (HCC); Hypokalemia; Large bowel obstruction (HCC) 07/14/2018 Orders Only General Internal Medicine after 09/09/2017 Immunizations Name Dates Previously Given Next Due Influenza Four-QIV Non-PF 5+ YR 07/20/2018 Pneumococcal Conjugate (Prevnar) 13-Valent 07/20/2018 Family History Medical History Relation Name Comments Cancer Father Colon cancer at advanced age Relation Name Status Comments Father Mother Alive Social History Tobacco Use Types Packs/Day Years Used Date Current Some Day Smoker Smokeless Tobacco: Never Used Alcohol Use Drinks/Week oz/Week Comments Yes last consumption of alcohol was 1 week ago Sex Assigned at Date Recorded Not on file Job Start Date Occupation Industry Not on file Not on file Not on file Travel History Travel Start Travel End No recent travel history available. Last Filed Vital Signs Vital Sign Reading Time Taken Blood Pressure 124/60 07/20/2018 8:38 AM CDT Pulse 84 07/20/2018 8:38 AM CDT Temperature 36.8 C (98.2 F) 07/20/2018 8:38 AM CDT Respiratory Rate 18 07/20/2018 8:38 AM CDT Oxygen Saturation 93% 07/20/2018 8:38 AM CDT Inhaled Oxygen Concentration - - Weight 146.4 kg (322 lb 12.1 oz) 07/14/2018 10:58 PM CDT Height 180.3 cm (5' 11") 07/14/2018 10:58 PM CDT Body Mass Index 45.02 07/14/2018 10:58 PM CDT Plan of Treatment Not on file Implants Implanted Type Area Marketing Reporting Analyst Device Shelf Model / Identifier Expiration Serial / Date Lot Stent Colonic Single [id number] - [id number] Stents-P N/A: [employer] 06/27/2019 [id number] / Implanted: Qty: 1 on 07/15/2018 by Shiva Cordova MD [facility] Colon / l [id number] Procedures Procedure Name Priority Date/Time Associated Comments Diagnosis RHYTHM STRIP - SCAN 07/21/2018 11:00 AM CDT REPORT OF PROCEDURE - 07/21/2018 11:00 ENDOSCOPY SCAN AM CDT POCT-GLUCOSE METER Routine 07/20/2018 8:46 Results for this AM CDT procedure are in the results section. CBC W/PLT COUNT & AUTO Routine 07/20/2018 4:46 Results for this DIFFERENTIAL AM CDT procedure are in the results section. CBC W/PLT COUNT & AUTO Routine 07/20/2018 4:46 Results for this DIFFERENTIAL AM CDT procedure are in the results section. BASIC METABOLIC PANEL Routine 07/20/2018 4:46 Results for this (7) AM CDT procedure are in the results section. POCT-GLUCOSE METER Routine 07/19/2018 10:17 Results for this PM CDT procedure are in the results section. POCT-GLUCOSE METER Routine 07/19/2018 4:39 Results for this PM CDT procedure are in the results section. ECHOCARDIOGRAM REPORT 07/19/2018 3:20 - SCAN PM CDT IR PORT-A-CATH Routine 07/19/2018 3:16 Results for this PLACEMENT PM CDT procedure are in the results section. POCT-GLUCOSE METER Routine 07/19/2018 12:21 Results for this PM CDT procedure are in the results section. ECHO W CONTRAST & Routine 07/19/2018 9:18 Results for this DOPPLER AM CDT procedure are in the results section. POCT-GLUCOSE METER Routine 07/19/2018 8:23 Results for this AM CDT procedure are in the results section. CBC W/PLT COUNT & AUTO Routine 07/19/2018 5:01 Results for this DIFFERENTIAL AM CDT procedure are in the results section. PROTHROMBIN TIME/INR Routine 07/19/2018 5:01 Results for this AM CDT procedure are in the results section. CBC W/PLT COUNT & AUTO Routine 07/19/2018 5:01 Results for this DIFFERENTIAL AM CDT procedure are in the results section. BASIC METABOLIC PANEL Routine 07/19/2018 5:01 Results for this (7) AM CDT procedure are in the results section. POCT-GLUCOSE METER Routine 07/18/2018 11:13 Results for this PM CDT procedure are in the results section. REPORT OF PROCEDURE - 07/18/2018 5:40 ENDOSCOPY URL PM CDT POCT-GLUCOSE METER Routine 07/18/2018 5:17 Results for this PM CDT procedure are in the results section. POCT-GLUCOSE METER Routine 07/18/2018 3:40 Results for this PM CDT procedure are in the results section. TISSUE EXAM AP Routine 07/18/2018 3:02 Results for this PM CDT procedure are in the results section. COLONOSCOPY 07/18/2018 3:00 Colonic mass PM CDT Stenosis colon (HCC) POCT-GLUCOSE METER Routine 07/18/2018 11:46 Results for this AM CDT procedure are in the results section. POCT-GLUCOSE METER Routine 07/18/2018 6:45 Results for this AM CDT procedure are in the results section. POCT-GLUCOSE METER Routine 07/17/2018 11:01 Results for this PM CDT procedure are in the results section. POCT-GLUCOSE METER Routine 07/17/2018 5:48 Results for this PM CDT procedure are in the results section. PROTEIN, BODY FLUID Routine 07/17/2018 3:45 Results for this PM CDT procedure are in the results section. BODY FLUID CELL COUNT Routine 07/17/2018 3:45 Results for this WITH DIFFERENTIAL PM CDT procedure are in the results section. ALBUMIN, BODY FLUID Routine 07/17/2018 3:45 Results for this PM CDT procedure are in the results section. CT GUIDED BIOPSY Routine 07/17/2018 3:28 Results for this ABDOMEN PM CDT procedure are in the results section. TISSUE EXAM AP Routine 07/17/2018 3:14 Results for this PM CDT procedure are in the results section. CYTOLOGY AP Routine 07/17/2018 2:35 Results for this PM CDT procedure are in the results section. CBC W/PLT COUNT & AUTO Routine 07/17/2018 12:55 Results for this DIFFERENTIAL PM CDT procedure are in the results section. CBC W/PLT COUNT & AUTO Routine 07/17/2018 12:55 Results for this DIFFERENTIAL PM CDT procedure are in the results section. PT/APTT Routine 07/17/2018 12:55 Results for this PM CDT procedure are in the results section. CBC W/PLT COUNT & AUTO Add-On 07/17/2018 12:17 Results for this DIFFERENTIAL PM CDT procedure are in the results section. CBC W/PLT COUNT & AUTO Add-On 07/17/2018 12:17 Results for this DIFFERENTIAL PM CDT procedure are in the results section. CT CHEST WITH IV PRISCILLA 07/17/2018 11:59 Results for this CONTRAST AM CDT procedure are in the results section. CT ABDOMEN/PELVIS WITH STAT 07/17/2018 11:59 Results for this IV CONTRAST AM CDT procedure are in the results section. POCT-GLUCOSE METER Routine 07/17/2018 11:11 Results for this AM CDT procedure are in the results section. HEMOGLOBIN A1C Routine 07/17/2018 5:22 Results for this AM CDT procedure are in the results section. BASIC METABOLIC PANEL Routine 07/17/2018 5:22 Results for this (7) AM CDT procedure are in the results section. POCT-GLUCOSE METER Routine 07/17/2018 5:14 Results for this AM CDT procedure are in the results section. POCT-GLUCOSE METER Routine 07/16/2018 11:43 Results for this PM CDT procedure are in the results section. TRANSFUSION SERVICE 07/16/2018 5:50 REPORT - SCAN PM CDT POCT-GLUCOSE METER Routine 07/16/2018 5:26 Results for this PM CDT procedure are in the results section. ALBUMIN Routine 07/16/2018 1:55 Results for this PM CDT procedure are in the results section. POCT-GLUCOSE METER Routine 07/16/2018 12:28 Results for this PM CDT procedure are in the results section. POCT-GLUCOSE METER Routine 07/16/2018 6:24 Results for this AM CDT procedure are in the results section. BASIC METABOLIC PANEL Routine 07/16/2018 2:02 Results for this (7) AM CDT procedure are in the results section. POCT-GLUCOSE METER Routine 07/15/2018 11:23 Results for this PM CDT procedure are in the results section. POCT-GLUCOSE METER Routine 07/15/2018 9:27 Results for this PM CDT procedure are in the results section. POCT-GLUCOSE METER Routine 07/15/2018 5:39 Results for this PM CDT procedure are in the results section. FL PHYSICAL INSTRUCTOR IN OR 30 Routine 07/15/2018 2:18 Results for this MINUTE INCREMENTS PM CDT procedure are in the results section. REPORT OF PROCEDURE - 07/15/2018 2:17 ENDOSCOPY URL PM CDT POCT-GLUCOSE METER Routine 07/15/2018 12:05 Results for this PM CDT procedure are in the results section. XR CHEST 1 VIEW Routine 07/15/2018 11:35 Results for this PORTABLE/BEDSIDE AM CDT procedure are in the results section. PROCEDURE W/ C-ARM 07/15/2018 11:32 Colon obstruction AM CDT (HCC) Case Notes FINAL ASSEMBLY AND PACKING SUPERVISOR CASE IN OR WITH FLUORO COLONOSCOPY,FLUOROSCOPIC STENT 07/15/2018 11:32 AM Colon obstruction (HCC) PLACEMENT CDT Case Notes FINAL ASSEMBLY AND PACKING SUPERVISOR CASE IN OR WITH FLUORO TYPE AND SCREEN, AUTOMATED Routine 07/15/2018 10:47 AM CDT CARCINOEMBRYONIC ANTIGEN (CEA) Routine 07/15/2018 10:47 AM CDT HEPATIC FUNCTION PANEL Routine 07/15/2018 8:44 AM CDT POCT-GLUCOSE METER Routine 07/15/2018 8:02 AM CDT POCT-GLUCOSE METER Routine 07/15/2018 1:47 AM CDT BLOOD CULTURE Routine 07/14/2018 11:55 PM CDT RAPID INFLUENZA A&B SCREEN Routine 07/14/2018 11:30 PM CDT BASIC METABOLIC PANEL (7) Routine 07/14/2018 11:29 PM CDT LEGIONELLA URINE ANTIGEN Routine 07/14/2018 11:28 PM CDT STREP PNEUMONIAE ANTIGEN Routine 07/14/2018 11:28 PM CDT ECG 12-LEAD Routine 07/14/2018 10:59 PM CDT Procedure Note - Interface, External Ris In - 07/14/2018 11:01 PM CDT Ventricular Rate 86 BPM Atrial Rate 86 BPM P-R Interval 158 ms QRS Duration 76 ms Q-T Interval 364 ms QTC Calculation(Bazett) 435 ms P [place] 57 degrees R [place] 35 degrees T [place] 178 degrees Sinus rhythm with Premature atrial complexes T wave abnormality, consider lateral ischemia Abnormal ECG When compared with ECG of 14-JUL-2018 22:59, No significant change was found ECG 12-LEAD STAT 07/14/2018 10:59 PM CDT ECG 12-LEAD Routine 07/14/2018 10:59 PM CDT ECG 12-LEAD Routine 07/14/2018 10:59 PM CDT Procedure Note - Interface, External Ris In - 07/14/2018 11:01 PM CDT Ventricular Rate 88 BPM Atrial Rate 88 BPM P-R Interval 160 ms QRS Duration 80 ms Q-T Interval 362 ms QTC Calculation(Bazett) 438 ms P [place] 66 degrees R [place] 39 degrees T [place] 127 degrees Sinus rhythm with Premature atrial complexes Minimal voltage criteria for LVH, may be normal variant T wave abnormality, consider lateral ischemia Abnormal ECG No previous ECGs available BLOOD CULTURE Routine 07/14/2018 10:47 PM CDT CBC W/PLT COUNT & AUTO Routine 07/14/2018 10:46 PM CDT Results for this DIFFERENTIAL procedure are in the results section. CBC W/PLT COUNT & AUTO Routine 07/14/2018 10:46 PM CDT Results for this DIFFERENTIAL procedure are in the results section. RESPIRATORY PANEL [facility] Routine 07/14/2018 10:29 PM CDT after 09/09/2017 Results RHYTHM STRIP - SCAN (07/21/2018 11:00 AM CDT) Narrative Performed At EKG-SCANNED (07/21/2018 11:00 AM CDT) Narrative Performed At POC-Glucose meter (07/20/2018 8:46 AM CDT)Only the most recent of24 resultswithin the time period is included. POC-Glucose Meter 195 (H)Comment: TESTED AT 70 - 110 mg/dL [facility] [id number] [facility] [id number] Specimen Blood Performing Organization Address City/State/Zipcode Phone Number [place] [phone] [place], [place] [phone] CENTER CBC with platelet count + automated diff (07/20/2018 4:46 AM CDT)Only the most recent of5 resultswithin the time period is included. WBC 7.2 3.5 - 10.5 K/L [facility] RBC 4.62 (L) 4.63 - 6.08 M/L [facility] Hemoglobin 13.4 (L) 13.7 - 17.5 GM/DL [facility] Hematocrit 43.7 40.1 - 51.0 % [facility] MCV 94.6 (H) 79.0 - 92.2 fL [facility] MCH 29.0 25.7 - 32.2 pg [facility] MCHC 30.7 (L) 32.3 - 36.5 GM/DL [facility] RDW 13.4 11.6 - 14.4 % [facility] Platelets 224 150 - 450 K/CU MM [facility] MPV 11.5 9.4 - 12.4 fL [facility] nRBC 0 0 - 0 /100 WBC [facility] % Neutros 66 % [facility] % Lymphs 19 % [facility] % Monos 10 % [facility] % Eos 4 % [facility] % Baso 1 % [facility] # Neutros 4.80 1.78 - 5.38 K/L [facility] # Lymphs 1.39 1.32 - 3.57 K/L [facility] # Monos 0.72 0.30 - 0.82 K/L [facility] # Eos 0.25 0.04 - 0.54 K/L [facility] # Baso 0.05 0.01 - 0.08 K/L [facility] Immature Granulocytes-Relative 0 0 - 1 % [facility] Specimen Blood - Arm, Left Performing Organization Address City/[facility]/Zipcode Phone Number [address] [phone] [place] Basic Metabolic Panel (07/20/2018 4:46 AM CDT)Only the most recent of5 resultswithin the time period is included. Sodium 141 136 - 145 meq/L [facility] Potassium 3.6 3.5 - 5.1 meq/L [facility] Chloride 106 98 - 107 meq/L [facility] CO2 25 22 - 29 meq/L [facility] BUN 9 7 - 21 mg/dL [facility] Creatinine 0.80 0.57 - 1.25 mg/dL [facility] Glucose 119 (H) 70 - 105 mg/dL [facility] Calcium 8.9 8.4 - 10.2 mg/dL [facility] EGFR 121Comment: ESTIMATED GFR IS mL/min/1.73 sq m [facility] NOT ACCURATE CREATININE [facility] CENTER CLEARANCE IN PREDICTING GLOMERULAR FILTRATION RATE. ESTIMATED GFR IS NOT APPLICABLE FOR DIALYSIS PATIENTS. Specimen Blood - Arm, Left Performing Organization Address City/[facility]/Zipcode Phone Number [facility] [address] [place] [address] [place] ECHOCARDIOGRAM REPORT - SCAN (07/19/2018 3:20 PM CDT) Narrative Performed At IR Port-a-Cath Placement (07/19/2018 3:16 PM CDT) Narrative Performed At FINAL REPORT [employer] [facility] Right internal jugular chest port insertion History: Patient requires access for chemotherapy administration. Modality: Sonography and fluoroscopy. Sedation: Versed 1.5 mg and fentanyl 50 mcg given intravenously for conscious sedation.Vital signs were monitored throughout the procedure by a nurse, and remained stable. Physician intra-service time was 30 minutes. Log Yard Derrick Operator:Singh Escamilla MD Chemical Inspector:Noé. Approach: Right internal jugular vein Estimated blood loss:< 5 cc. Specimen: None. Fluoroscopy Time: 0.1 min. Reference Air Kerma (Ka, r): 5.4 mGy. Technique: Informed written consent was obtained. Discussion of risks, benefits, and alternatives were made with the patient. The patient expressed understanding and agreed to proceed.A universal timeout was performed prior to starting the procedure.All elements maximal sterile barrier technique was utilized for this procedure, including utilization of sterile scrub solution for skin prep, a large sterile sheet to cover the areas of the patient that were not prepped, and hand hygiene, mask, head covering, and sterile gown for performing radiologist and scrub technologist. The skin was anesthetized with 2% lidocaine.Ultrasound evaluation showed a patent and compressible right internal jugular vein, which was punctured under direct real-time ultrasound guidance with a micropuncture needle.An ultrasound image was saved to PACS. A 0.018 inch wire was placed through the needle into the right atrium. A 4 Lao micropuncture sheath was placed. A subcutaneous tunnel and pocket were created in the right anterior chest wall by blunt dissection.The pocket was flushed with antibiotic solution. A 6F Bard port was placed within the pocket and the catheter brought through the tunnel. The catheter was cut at 25 cm. A peel-away sheath was placed in the right IJ vein and the catheter was advanced through the sheath, with its distal tip terminating in the cavoatrial junction. The peel-away sheath was removed. The port was flushed and aspirated easily following placement.The skin incision was closed with 3-0 running subcuticular Monocryl and Steri-Strips.The small jugular incision site was closed using Steri-Strips.The patient tolerated the procedure well and left the department in the same condition. Results:Spot radiograph of the chest demonstrates the new right IJ Port-A-Cath to lie in the expected position with its tip overlying the cavoatrial junction. Impression: Successful, uncomplicated placement of a right internal jugular chest port. The port is ready for immediate use. Signed: Singh Escamilla MD Report Verified Date/Time:07/19/2018 18:25:29 Reading Location: [place] [address] Angio Body Reading Room Procedure Note Interface, External Ris In - 07/19/2018 6:27 PM CDT FINAL REPORT Right internal jugular chest port insertion History: Patient requires access for chemotherapy administration. Modality: Sonography and fluoroscopy. Sedation: Versed 1.5 mg and fentanyl 50 mcg given intravenously for conscious sedation. Vital signs were monitored throughout the procedure by a nurse, and remained stable. Physician intra-service time was 30 minutes. Log Yard Derrick Operator: Singh Escamilla MD Chemical Inspector: Noé. Approach: Right internal jugular vein Estimated blood loss: < 5 cc. Specimen: None. Fluoroscopy Time: 0.1 min. Reference Air Kerma (Ka, r): 5.4 mGy. Technique: Informed written consent was obtained. Discussion of risks, benefits, and alternatives were made with the patient. The patient expressed understanding and agreed to proceed. A universal timeout was performed prior to starting the procedure. All elements maximal sterile barrier technique was utilized for this procedure, including utilization of sterile scrub solution for skin prep, a large sterile sheet to cover the areas of the patient that were not prepped, and hand hygiene, mask, head covering, and sterile gown for performing radiologist and scrub technologist. The skin was anesthetized with 2% lidocaine. Ultrasound evaluation showed a patent and compressible right internal jugular vein, which was punctured under direct real-time ultrasound guidance with a micropuncture needle. An ultrasound image was saved to PACS. A 0.018 inch wire was placed through the needle into the right atrium. A 4 Lao micropuncture sheath was placed. A subcutaneous tunnel and pocket were created in the right anterior chest wall by blunt dissection. The pocket was flushed with antibiotic solution. A 6F Bard port was placed within the pocket and the catheter brought through the tunnel. The catheter was cut at 25 cm. A peel-away sheath was placed in the right IJ vein and the catheter was advanced through the sheath, with its distal tip terminating in the cavoatrial junction. The peel-away sheath was removed. The port was flushed and aspirated easily following placement. The skin incision was closed with 3-0 running subcuticular Monocryl and Steri-Strips. The small jugular incision site was closed using Steri-Strips. The patient tolerated the procedure well and left the department in the same condition. Results: Spot radiograph of the chest demonstrates the new right IJ Port-A-Cath to lie in the expected position with its tip overlying the cavoatrial junction. Impression: Successful, uncomplicated placement of a right internal jugular chest port. The port is ready for immediate use. Signed: Singh Escamilla MD Report Verified Date/Time: 07/19/2018 18:25:29 Reading Location: [place] [address] Angio Body Reading Room Performing Organization Address City/State/Zipcode Phone Number [phone] ECHO W CONTRAST & DOPPLER (07/19/2018 9:18 AM CDT) Ejection Fraction [facility] Narrative Performed At Transthoracic Echocardiography Report (TTE) [facility] Demographics Patient Name Sunny LARA of Study 07/19/2018 [id number] GenderMale Visit Number [id number] RaceBlack [id number] Room Number [id number] Number Date of Birth1960 Referring Physician DEON TURCIOS Age57 year(s) Word Processing Specialist Tr Garnett RDCS AnalystIzokirstin Mahoney MD Physician Procedure Type of Study TTE procedure:2DECHO W/CONTRAST & DOPPLER (Routine) Indications:Dyspnea/SOB. Clinical History Asthma, DM, HTN, Smoker, Obesity HGB 13.1 HCT 43.3 % Contrast Medium: Definity. Height: 71 inches Weight: 146.06 kg (322 lbs) BSA: 2.58 m^2 BMI: 44.91 kg/m^2 HR: 71 bpm BP: 172/88 mmHg Summary IV saline contrast injection was negative for a PFO (patent foramen ovale) at rest and post Valsalva . The left ventricle is chamber size (by PSLAX dimension) is normal (male - LVIDd 4.2-5.8cm) . Mild concentric LV hypertrophy. All of the LV segments contract normally . Global LV systolic function normal . Estimated LVEF by qualitative assessment is normal (>60%) . LV endocardium is adequately visualized with IV ultrasound enhancing agent. Grade 1 diastolic dysfunction (impaired relaxation and low-normal LA pressure). LA size is mildly enlarged (35-41 ml/m2) . Previous Study No prior studies available for comparison. Signature Findings Left Ventricle The left ventricle is chamber size (by PSLAX di mension) is normal (male - LVIDd 4.2-5.8cm) . Mi ld concentric LV hypertrophy. All of the LV se gments contract normally . Global LV systolic fu nction normal . Estimated LVEF by qualitative as sessment is normal (>60%) . LV endocardium is ad equately visualized with IV ultrasound enhancing ag ent. Grade 1 diastolic dysfunction (impaired re laxation and low-normal LA pressure). Left AtriumLA size is mildly enlarged (35-41 ml/m2) . Right VentricleThe right ventricular chamber size and systolic fu nction are within normal limits. Right Atrium RA cavity size is normal . Atrial SeptumIV saline contrast injection was negative for a PFO (p atent foramen ovale) at rest and post Valsalva . Aortic Valve Normal AoV structure and function. Mitral Valve Mild MV leaflet thickening. Mi ld mitral annular calcification. No significant mitral regurgitation. Tricuspid ValveUnable to estimate peak systolic PA pressure; in adequate TR velocity signal. Pulmonic Valve Normal PV structure and function. AortaProximal ascending aorta size is normal . Aortic ro ot size (SInus of Valsalva diameter) is normal . PericardiumNo significant pericardial effusion is visualized. IVC/SVC/PA/PV/PleuralThe right upper pulmonary vein (RUPV) is normal . Th e estimated RA pressure by IVC dynamics 5mmHg . Chambers/Structures Left Atrium LA Volume: 105.38 mlLA Area: 28.87 cm^2 LA Vol. Index: 41 ml/m^2 Left Ventricle LVIDd: 4.95 cm LV Septum Diastolic: 1.28 cm LV PW Diastolic: 1.41 cm LVOT Diameter: 2.43 cm Right Ventricle TAPSE: 2.34 cm Aorta Ao Root S of Marysol.: 3.52 cmAscending Aorta: 3.44 cm Doppler/Quantitative Measurements Mitral Valve MV Peak E-Wave: 0.57 m/sMV Peak A-Wave: 0.74 m/s E/A Ratio: 0.76 Peak Gradient: 1.28 mmHg Deceleration Time: 271.6 msec MV Gareth. Peak: Tissue Doppler E' Lateral Velocity: 0.08 m/s E/E': 6.76 Aortic Valve Peak Velocity: 1.06 m/sMean Velocity: 0.8 m/s Peak Gradient: 4.51 mmHg Mean Gradient: 2.79 mmHg AV Area (continuity): 3.81 cm^2 AV VTI: 21.3 cm AV DVI: 0.82 LVOT Peak Velocity: 0.9 m/sPeak Gradient: 3.23 mmHg Mean Velocity: 0.61 m/s Mean Gradient: 1.66 mmHg LVOT Diameter: 2.43 cmLVOT VTI: 17.51 cm LVOT Area: 4.64 cm^2LVOT SV:81.16 ml LVOT CO: 5.76 l/min LVOT CI: 2.23 l/min/m^2 Procedure Note Interface, External Ris In - 07/19/2018 2:35 PM CDT Transthoracic Echocardiography Report (TTE) Demographics Patient Name LISSETH LARA Date of Study 07/19/2018 Gender Male Visit Number [id number] Race Black Room Number [id number] Number Date of 1960 Referring Physician DEON TURCIOS Age 57 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 Clinical History Asthma, DM, HTN, Smoker, Obesity HGB 13.1 HCT 43.3 % Contrast Medium: Definity. Height: 71 inches Weight: 146.06 kg (322 lbs) BSA: 2.58 m^2 BMI: 44.91 kg/m^2 HR: 71 bpm BP: 172/88 mmHg Summary IV saline contrast injection was negative for a PFO (patent foramen ovale) at rest and post Valsalva . The left ventricle is chamber size (by PSLAX dimension) is normal (male - LVIDd 4.2-5.8cm) . Mild concentric LV hypertrophy. All of the LV segments contract normally . Global LV systolic function normal . Estimated LVEF by qualitative assessment is normal (>60%) . LV endocardium is adequately visualized with IV ultrasound enhancing agent. Grade 1 diastolic dysfunction (impaired relaxation and low-normal LA pressure). LA size is mildly enlarged (35-41 ml/m2) . Previous Study No prior studies available for comparison. Signature Findings Left Ventricle The left ventricle is chamber size (by PSLAX dimension) is normal (male - LVIDd 4.2-5.8cm) . Mild concentric LV hypertrophy. All of the LV segments contract normally . Global LV systolic function normal . Estimated LVEF by qualitative assessment is normal (>60%) . LV endocardium is adequately visualized with IV ultrasound enhancing agent. Grade 1 diastolic dysfunction (impaired relaxation and low-normal LA pressure). Left Atrium LA size is mildly enlarged (35-41 ml/m2) . Right Ventricle The right ventricular chamber size and systolic function are within normal limits. Right Atrium RA cavity size is normal . Atrial Septum IV saline contrast injection was negative for a PFO (patent foramen ovale) at rest and post Valsalva . Aortic Valve Normal AoV structure and function. Mitral Valve Mild MV leaflet thickening. Mild mitral annular calcification. No significant mitral regurgitation. Tricuspid Valve Unable to estimate peak systolic PA pressure; inadequate TR velocity signal. Pulmonic Valve Normal PV structure and function. Aorta Proximal ascending aorta size is normal . Aortic root size (SInus of Valsalva diameter) is normal . Pericardium No significant pericardial effusion is visualized. IVC/SVC/PA/PV/Pleural The right upper pulmonary vein (RUPV) is normal . The estimated RA pressure by IVC dynamics 5mmHg . Chambers/Structures Left Atrium LA Volume: 105.38 ml LA Area: 28.87 cm^2 LA Vol. Index: 41 ml/m^2 Left Ventricle LVIDd: 4.95 cm LV Septum Diastolic: 1.28 cm LV PW Diastolic: 1.41 cm LVOT Diameter: 2.43 cm Right Ventricle TAPSE: 2.34 cm Aorta Ao Root S of Marysol.: 3.52 cm Ascending Aorta: 3.44 cm Doppler/Quantitative Measurements Mitral Valve MV Peak E-Wave: 0.57 m/s MV Peak A-Wave: 0.74 m/s E/A Ratio: 0.76 Peak Gradient: 1.28 mmHg Deceleration Time: 271.6 msec MV Gareth. Peak: Tissue Doppler E' Lateral Velocity: 0.08 m/s E/E': 6.76 Aortic Valve Peak Velocity: 1.06 m/s Mean Velocity: 0.8 m/s Peak Gradient: 4.51 mmHg Mean Gradient: 2.79 mmHg AV Area (continuity): 3.81 cm^2 AV VTI: 21.3 cm AV DVI: 0.82 LVOT Peak Velocity: 0.9 m/s Peak Gradient: 3.23 mmHg Mean Velocity: 0.61 m/s Mean Gradient: 1.66 mmHg LVOT Diameter: 2.43 cm LVOT VTI: 17.51 cm LVOT Area: 4.64 cm^2 LVOT SV:81.16 ml LVOT CO: 5.76 l/min LVOT CI: 2.23 l/min/m^2 Performing Organization Address City/State/Zipcode Phone Number [facility] Prothrombin time/INR (07/19/2018 5:01 AM CDT) Protime 14.2 11.7 - 14.7 seconds [facility] INR 1.1 <=5.9 [facility] Specimen Blood - Arm, Left Narrative Performed At [facility] RECOMMENDED COUMADIN/WARFARIN INR THERAPY RANGES STANDARD DOSE: 2.0 - 3.0 Includes: PROPHYLAXIS for venous thrombosis, systemic embolization; TREATMENT for venous thrombosis and/or pulmonary embolus. HIGH RISK: Target INR is 2.5-3.5 for patients with mechanical heart valves. Performing Organization Address City/[facility] Phone Number [address] [address] [phone] CENTER REPORT OF PROCEDURE - ENDOSCOPY URL (07/18/2018 5:40 PM CDT) Narrative Performed At Tissue Exam (07/18/2018 3:02 PM CDT)Only the most recent of2 resultswithin the time period is included. Case Report Surgical Pathology Report Case: [id number] [facility] Authorizing Provider:Julius Umanzor MDCollected: 07/18/[address] [place] [address] Ordering Location: [address] Received: 07/19/2018 [facility] Service Pathologist: Charo Brar MD Specimen:Large Intestine, Colon - Left/Descending, mass DIAGNOSIS LEFT/DESCENDING COLON, BIOPSY: [facility] - INVASIVE MODERATELY DIFFERENTIATED ADENOCARCINOMA, SITUATED PREDOMINANTLY [facility] BENEATH THE MUSCULARIS MUCOSA, WITH FOCAL NECROSIS MO/pl Signing Pathologist Direct Phone Line: [phone] CPT Code(s) 70041 x1 [facility] CLINICAL HISTORY Stenosis of colon, colonic [facility] mass [facility] SPECIMEN SOURCE Left descending colon mass [facility] biopsy [facility] GROSS DESCRIPTION The specimen is received in [facility] a formalin-filled container [facility] labeled with the patient's information and labeled "left descending colon mass biopsy" and consists of multiple fragments of guido-red soft tissue ranging from less than 0.1 to 0.3 cm, submitted entirely in A1. CG/ew MICROSCOPIC DESCRIPTION The biopsy from the [facility] left/descending colon shows [facility] an invasive mostly moderately differentiated adenocarcinoma, with features consistent with colonic type. A bit of the overlying epithelium shows some adenomatous changes, but a definitive adjacent polyp is not well-demonstrated in these sections. In this sample, invasive tumor is mostly present subjacent/below the muscularis mucosa and there is some associated necrosis with apoptosis. Other significant features are not noted. Specimen Tissue - Large Intestine, Colon - Left/Descending Performing Organization Address City/[facility] Corporation[facility] Phone Number [address] [phone] [place] Body fluid cell count with differential (07/17/2018 3:45 PM CDT) Appearance Slightly Bloody (A) Clear [facility] Color Yarelis (A) Colorless, Straw [facility] RBCs 9,500 (H) <=1 /cu mm [facility] Adjusted WBC Count 1,043 (H) <=5 /cu mm [facility] Lining Cells 42 (H) <=1 /cu mm [facility] % Segs 17 % [facility] % Lymphs 28 % [facility] % Monos 55 % [facility] % Eos 0 % [facility] % Baso 0 % [facility] Container Body Fluid EDTA Tube [facility] Specimen Body Fluid - Ascites Performing Organization Address City/[facility] Corporation[facility] Phone Number [address] [address] [place] Protein, body fluid (07/17/2018 3:45 PM CDT) Protein, Fluid 5.0 g/dL [facility] Specimen Body Fluid - Ascites Narrative Performed At [facility] Absence of reference range indicates that normals have not been defined. Assay performance has not been validated for this type of specimen. Performing Organization Address City/[facility] Corporationcode Phone Number [place] [phone] [place] [address] [place] Albumin, body fluid (07/17/2018 3:45 PM CDT) Albumin, Fluid 2.9 gm/dL [facility] Specimen Body Fluid - Ascites Narrative Performed At [facility] Reference Range:No Normals Assay performance has not been validated for this type of specimen. Performing Organization Address [facility] Corporationcoil Phone Number [address] [address] biopsy abdomen (07/17/2018 3:28 PM CDT) Narrative Performed At FINAL REPORT [facility] PROCEDURE: CT-guided core biopsy of omental nodules. Dose modulation, iterative reconstruction, and/or weight-based adjustment of the mA/kV was utilized to reduce the radiation dose to as low as reasonably achievable. INDICATION: 57-year-old man with omental nodules. COMPARISON: Chest, abdomen, and pelvis CT from earlier same date. SEDATION: Intravenous moderate sedation was administered by radiology nursing and monitored under the direction of the undersigned radiologist. The patient's vital signs were monitored throughout the procedure and recorded in the patient's medical record by radiology nursing. Total intraservice time of sedation was 45 minutes. MEDICATIONS: 2 mg Versed, 100 mcg fentanyl DESCRIPTION: After obtaining informed written consent, the patient was brought to the CT scanner and placed in the supine position. Preliminary CT scan revealed multiple omental nodules. The largest nodule in the right anterior abdomen was targeted for biopsy. The overlying skin was prepped and draped in the usual, sterile fashion and local 1% lidocaine anesthesia was administered. Under CT guidance, a 19-gauge introducer needle was inserted into the right paramedian anterior abdominal wall and placed into the periphery of the omental nodule. The inner stylette was removed, and a 20-gauge Temno core biopsy needle was passed introducer and into the nodule. Multiple passes were attempted through the nodule, however no tissue was readily obtained. The needles were removed. It was then decided to target the omental nodularity in the left abdomen. Under CT guidance, a 19-gauge introducer needle was inserted into the left anterior abdominal wall and placed into the periphery of the omental nodularity. The inner stylette was removed, and a 20-gauge Temno core biopsy needle was passed introducer and into the nodular. Five core biopsy samples of the omental nodularity were obtained. The needles were removed. Postprocedure CT scan revealed no evidence for hematoma. There were no immediate complications. IMPRESSION: Uncomplicated CT-guided core biopsy of omental nodules. Signed: Stephanie Duffy MD Report Verified Date/Time:07/17/2018 16:57:37 Reading Location: [address] Body Reading Room Procedure Note Interface, External Ris In - 07/17/2018 4:59 PM CDT FINAL REPORT PROCEDURE: CT-guided core biopsy of omental nodules. Dose modulation, iterative reconstruction, and/or weight-based adjustment of the mA/kV was utilized to reduce the radiation dose to as low as reasonably achievable. INDICATION: 57-year-old man with omental nodules. COMPARISON: Chest, abdomen, and pelvis CT from earlier same date. SEDATION: Intravenous moderate sedation was administered by radiology nursing and monitored under the direction of the undersigned radiologist. The patient's vital signs were monitored throughout the procedure and recorded in the patient's medical record by radiology nursing. Total intraservice time of sedation was 45 minutes. MEDICATIONS: 2 mg Versed, 100 mcg fentanyl DESCRIPTION: After obtaining informed written consent, the patient was brought to the CT scanner and placed in the supine position. Preliminary CT scan revealed multiple omental nodules. The largest nodule in the right anterior abdomen was targeted for biopsy. The overlying skin was prepped and draped in the usual, sterile fashion and local 1% lidocaine anesthesia was administered. Under CT guidance, a 19-gauge introducer needle was inserted into the right paramedian anterior abdominal wall and placed into the periphery of the omental nodule. The inner stylette was removed, and a 20-gauge Temno core biopsy needle was passed introducer and into the nodule. Multiple passes were attempted through the nodule, however no tissue was readily obtained. The needles were removed. It was then decided to target the omental nodularity in the left abdomen. Under CT guidance, a 19-gauge introducer needle was inserted into the left anterior abdominal wall and placed into the periphery of the omental nodularity. The inner stylette was removed, and a 20-gauge Temno core biopsy needle was passed introducer and into the nodular. Five core biopsy samples of the omental nodularity were obtained. The needles were removed. Postprocedure CT scan revealed no evidence for hematoma. There were no immediate complications. IMPRESSION: Uncomplicated CT-guided core biopsy of omental nodules. Signed: Stephanie Duffy MD Report Verified Date/Time: 07/17/2018 16:57:37 Reading Location: [address] Body Reading Room Performing Organization Address City/State/Zipcode Phone Number [facility] Cytology (07/17/2018 2:35 PM CDT) Case Report Medical Cytology Report Case: [id number] [facility] Authorizing Provider:Jessi Turcios MD Collected: 07/17/[address] [facility] Ordering Location: [address] Received: 07/18/2018 0837 Service Pathologist: Alvin Arroyo MD Specimen:Peritoneal Fluid DIAGNOSIS PERITONEAL FLUID (CYTOSPINS): [facility] - SUSPICIOUS FOR MALIGNANCY [facility] Signing Pathologist Direct Phone Line: [phone] COMMENT There are a few atypical [facility] clusters that are [facility] suspicious for malignancy in a background of reactive mesothelial cells and chronic inflammation. CPT Code(s) 67938 [facility] CLINICAL DATA Ascites; colon mass and [facility] omental nodules presents [facility] for CT-guided core biopsy of omental nodules SPECIMEN SOURCE PERITONEAL FLUID [facility] GROSS DESCRIPTION Prepared 4 cytospins from 4 ml yellow blood-tinged fluid [facility] Collected: [id number] [facility] Received: [id number] STATEMENT OF ADEQUACY Satisfactory [facility] Gross assessment was [facility] performed at [place], Department of [facility] Pathology, [address] [place] [id number], Technical component was [facility] performed at [place], Department of [facility] Pathology, [address] [place] [id number], Professional component was [facility] performed at [place], Department of [facility] Pathology, [address] [place] [address], Specimen Body Fluid - Peritoneal Fluid Narrative Performed At Performing Organization Address City/State/Zipcode Phone Number [address] [address] [place] PT/aPTT (07/17/2018 12:55 PM CDT) Protime 14.6 11.7 - 14.7 seconds [facility] INR 1.1 <=5.9 [facility] PTT 27.7 22.5 - 36.0 seconds [facility] Specimen Blood - Arm, Right Narrative Performed At [facility] RECOMMENDED COUMADIN/WARFARIN INR THERAPY RANGES STANDARD DOSE: 2.0 - 3.0 Includes: PROPHYLAXIS for venous thrombosis, systemic embolization; TREATMENT for venous thrombosis and/or pulmonary embolus. HIGH RISK: Target INR is 2.5-3.5 for patients with mechanical heart valves. Performing Organization Address City/State/Zipcode Phone Number [address] [address] [phone] [address] abdomen/pelvis with IV contrast (07/17/2018 11:59 AM CDT) Narrative Performed At FINAL REPORT [facility] TECHNIQUE: CT of the chest, abdomen, and pelvis WITH intravenous contrast and WITH oral contrast. Dose modulation, iterative reconstruction, and/or weight-based adjustment of the mA/kV was utilized to reduce the radiation dose to as low as reasonably achievable. INDICATION: 57-year-old man with colon mass. COMPARISON: None. FINDINGS: LINES/TUBES: None. LUNGS AND AIRWAYS: Central airways are patent. 3 mm nodule in the right upper lobe adjacent to the minor fissure (axial lung window series image 34). Relaxation atelectasis in the right lower lobe adjacent to the pleural effusion. Linear subsegmental atelectasis in the left lung base. Subcentimeter calcified granulomas in the right lower lobe. PLEURA: Small-moderate right pleural effusion. HEART AND MEDIASTINUM: The visualized thyroid gland is normal. No significant mediastinal, hilar, or axillary lymphadenopathy. The heart and pericardium are within normal limits. HEPATOBILIARY: 1 cm enhancing lesion in the right hepatic lobe (axial series image 63). Gallbladder is unremarkable. No biliary ductal dilatation. SPLEEN: No splenomegaly. PANCREAS: No focal masses or ductal dilatation. ADRENALS: 3.9 x 3.1 cm left adrenal nodule. No right adrenal nodules. KIDNEYS/URETERS: No hydronephrosis, stones, or solid mass lesions. PELVIC ORGANS/BLADDER: The bladder is underdistended, limiting its evaluation. Prostate and seminal vesicles are grossly unremarkable. PERITONEUM/RETROPERITONEUM: Omental and peritoneal soft tissue nodularity. Small volume ascites. LYMPH NODES: Few mildly prominent retroperitoneal lymph nodes, the largest is a 1.1 cm left para-aortic lymph node (axial series image 74). Nonspecific subcentimeter bilateral cardiophrenic lymph nodes measure up to 0.9 cm on the right. VESSELS: Atherosclerotic vascular calcifications without aneurysm. GI TRACT: Metallic stent and clip in the descending colon. The reported colonic mass in the descending colon is not clearly identified, likely secondary to overlying stent as well as lack of enteric contrast in this region. No bowel obstruction. Normal appendix. BONES AND SOFT TISSUES: Degenerative changes of the visualized spine. Soft tissues are unremarkable. IMPRESSION: Metallic stent in the descending colon. No bowel obstruction. The reported colonic mass is not clearly identified, likely secondary to overlying stent and lack of enteric contrast in this region. Peritoneal carcinomatosis with small volume ascites. Indeterminate findings, for which metastasis cannot be excluded, include: *3.9 cm left adrenal nodule. *Enhancing lesion in the right hepatic lobe. *Mildly prominent retroperitoneal lymph nodes. *3 mm pulmonary nodule in the right upper lobe. Small-moderate right pleural effusion. RECOMMENDATION: If indicated, hepatic and left adrenal lesions may be further characterized with abdomen MRI with and without intravenous contrast. Signed: Stephanie Duffy MD Report Verified Date/Time:07/17/2018 12:37:32 Reading Location: [facility] B1 C013Y CT Body Reading Room Procedure Note Interface, External Ris In - 07/17/2018 12:39 PM CDT FINAL REPORT TECHNIQUE: CT of the chest, abdomen, and pelvis WITH intravenous contrast and WITH oral contrast. Dose modulation, iterative reconstruction, and/or weight-based adjustment of the mA/kV was utilized to reduce the radiation dose to as low as reasonably achievable. INDICATION: 57-year-old man with colon mass. COMPARISON: None. FINDINGS: LINES/TUBES: None. LUNGS AND AIRWAYS: Central airways are patent. 3 mm nodule in the right upper lobe adjacent to the minor fissure (axial lung window series image 34). Relaxation atelectasis in the right lower lobe adjacent to the pleural effusion. Linear subsegmental atelectasis in the left lung base. Subcentimeter calcified granulomas in the right lower lobe. PLEURA: Small-moderate right pleural effusion. HEART AND MEDIASTINUM: The visualized thyroid gland is normal. No significant mediastinal, hilar, or axillary lymphadenopathy. The heart and pericardium are within normal limits. HEPATOBILIARY: 1 cm enhancing lesion in the right hepatic lobe (axial series image 63). Gallbladder is unremarkable. No biliary ductal dilatation. SPLEEN: No splenomegaly. PANCREAS: No focal masses or ductal dilatation. ADRENALS: 3.9 x 3.1 cm left adrenal nodule. No right adrenal nodules. KIDNEYS/URETERS: No hydronephrosis, stones, or solid mass lesions. PELVIC ORGANS/BLADDER: The bladder is underdistended, limiting its evaluation. Prostate and seminal vesicles are grossly unremarkable. PERITONEUM/RETROPERITONEUM: Omental and peritoneal soft tissue nodularity. Small volume ascites. LYMPH NODES: Few mildly prominent retroperitoneal lymph nodes, the largest is a 1.1 cm left para-aortic lymph node (axial series image 74). Nonspecific subcentimeter bilateral cardiophrenic lymph nodes measure up to 0.9 cm on the right. VESSELS: Atherosclerotic vascular calcifications without aneurysm. GI TRACT: Metallic stent and clip in the descending colon. The reported colonic mass in the descending colon is not clearly identified, likely secondary to overlying stent as well as lack of enteric contrast in this region. No bowel obstruction. Normal appendix. BONES AND SOFT TISSUES: Degenerative changes of the visualized spine. Soft tissues are unremarkable. IMPRESSION: Metallic stent in the descending colon. No bowel obstruction. The reported colonic mass is not clearly identified, likely secondary to overlying stent and lack of enteric contrast in this region. Peritoneal carcinomatosis with small volume ascites. Indeterminate findings, for which metastasis cannot be excluded, include: *3.9 cm left adrenal nodule. *Enhancing lesion in the right hepatic lobe. *Mildly prominent retroperitoneal lymph nodes. *3 mm pulmonary nodule in the right upper lobe. Small-moderate right pleural effusion. RECOMMENDATION: If indicated, hepatic and left adrenal lesions may be further characterized with abdomen MRI with and without intravenous contrast. Signed: Stephanie Duffy MD Report Verified Date/Time: 07/17/2018 12:37:32 Reading Location: [address] Body Reading Room Performing Organization Address City/State/Zipcode Phone Number [facility] CT chest with IV contrast (07/17/2018 11:59 AM CDT) Narrative Performed At FINAL REPORT [facility] TECHNIQUE: CT of the chest, abdomen, and pelvis WITH intravenous contrast and WITH oral contrast. Dose modulation, iterative reconstruction, and/or weight-based adjustment of the mA/kV was utilized to reduce the radiation dose to as low as reasonably achievable. INDICATION: 57-year-old man with colon mass. COMPARISON: None. FINDINGS: LINES/TUBES: None. LUNGS AND AIRWAYS: Central airways are patent. 3 mm nodule in the right upper lobe adjacent to the minor fissure (axial lung window series image 34). Relaxation atelectasis in the right lower lobe adjacent to the pleural effusion. Linear subsegmental atelectasis in the left lung base. Subcentimeter calcified granulomas in the right lower lobe. PLEURA: Small-moderate right pleural effusion. HEART AND MEDIASTINUM: The visualized thyroid gland is normal. No significant mediastinal, hilar, or axillary lymphadenopathy. The heart and pericardium are within normal limits. HEPATOBILIARY: 1 cm enhancing lesion in the right hepatic lobe (axial series image 63). Gallbladder is unremarkable. No biliary ductal dilatation. SPLEEN: No splenomegaly. PANCREAS: No focal masses or ductal dilatation. ADRENALS: 3.9 x 3.1 cm left adrenal nodule. No right adrenal nodules. KIDNEYS/URETERS: No hydronephrosis, stones, or solid mass lesions. PELVIC ORGANS/BLADDER: The bladder is underdistended, limiting its evaluation. Prostate and seminal vesicles are grossly unremarkable. PERITONEUM/RETROPERITONEUM: Omental and peritoneal soft tissue nodularity. Small volume ascites. LYMPH NODES: Few mildly prominent retroperitoneal lymph nodes, the largest is a 1.1 cm left para-aortic lymph node (axial series image 74). Nonspecific subcentimeter bilateral cardiophrenic lymph nodes measure up to 0.9 cm on the right. VESSELS: Atherosclerotic vascular calcifications without aneurysm. GI TRACT: Metallic stent and clip in the descending colon. The reported colonic mass in the descending colon is not clearly identified, likely secondary to overlying stent as well as lack of enteric contrast in this region. No bowel obstruction. Normal appendix. BONES AND SOFT TISSUES: Degenerative changes of the visualized spine. Soft tissues are unremarkable. IMPRESSION: Metallic stent in the descending colon. No bowel obstruction. The reported colonic mass is not clearly identified, likely secondary to overlying stent and lack of enteric contrast in this region. Peritoneal carcinomatosis with small volume ascites. Indeterminate findings, for which metastasis cannot be excluded, include: *3.9 cm left adrenal nodule. *Enhancing lesion in the right hepatic lobe. *Mildly prominent retroperitoneal lymph nodes. *3 mm pulmonary nodule in the right upper lobe. Small-moderate right pleural effusion. RECOMMENDATION: If indicated, hepatic and left adrenal lesions may be further characterized with abdomen MRI with and without intravenous contrast. Signed: Stephanie Duffy MD Report Verified Date/Time:07/17/2018 12:37:32 Reading Location: [address] Body Reading Room Procedure Note Interface, External Ris In - 07/17/2018 12:39 PM CDT FINAL REPORT TECHNIQUE: CT of the chest, abdomen, and pelvis WITH intravenous contrast and WITH oral contrast. Dose modulation, iterative reconstruction, and/or weight-based adjustment of the mA/kV was utilized to reduce the radiation dose to as low as reasonably achievable. INDICATION: 57-year-old man with colon mass. COMPARISON: None. FINDINGS: LINES/TUBES: None. LUNGS AND AIRWAYS: Central airways are patent. 3 mm nodule in the right upper lobe adjacent to the minor fissure (axial lung window series image 34). Relaxation atelectasis in the right lower lobe adjacent to the pleural effusion. Linear subsegmental atelectasis in the left lung base. Subcentimeter calcified granulomas in the right lower lobe. PLEURA: Small-moderate right pleural effusion. HEART AND MEDIASTINUM: The visualized thyroid gland is normal. No significant mediastinal, hilar, or axillary lymphadenopathy. The heart and pericardium are within normal limits. HEPATOBILIARY: 1 cm enhancing lesion in the right hepatic lobe (axial series image 63). Gallbladder is unremarkable. No biliary ductal dilatation. SPLEEN: No splenomegaly. PANCREAS: No focal masses or ductal dilatation. ADRENALS: 3.9 x 3.1 cm left adrenal nodule. No right adrenal nodules. KIDNEYS/URETERS: No hydronephrosis, stones, or solid mass lesions. PELVIC ORGANS/BLADDER: The bladder is underdistended, limiting its evaluation. Prostate and seminal vesicles are grossly unremarkable. PERITONEUM/RETROPERITONEUM: Omental and peritoneal soft tissue nodularity. Small volume ascites. LYMPH NODES: Few mildly prominent retroperitoneal lymph nodes, the largest is a 1.1 cm left para-aortic lymph node (axial series image 74). Nonspecific subcentimeter bilateral cardiophrenic lymph nodes measure up to 0.9 cm on the right. VESSELS: Atherosclerotic vascular calcifications without aneurysm. GI TRACT: Metallic stent and clip in the descending colon. The reported colonic mass in the descending colon is not clearly identified, likely secondary to overlying stent as well as lack of enteric contrast in this region. No bowel obstruction. Normal appendix. BONES AND SOFT TISSUES: Degenerative changes of the visualized spine. Soft tissues are unremarkable. IMPRESSION: Metallic stent in the descending colon. No bowel obstruction. The reported colonic mass is not clearly identified, likely secondary to overlying stent and lack of enteric contrast in this region. Peritoneal carcinomatosis with small volume ascites. Indeterminate findings, for which metastasis cannot be excluded, include: *3.9 cm left adrenal nodule. *Enhancing lesion in the right hepatic lobe. *Mildly prominent retroperitoneal lymph nodes. *3 mm pulmonary nodule in the right upper lobe. Small-moderate right pleural effusion. RECOMMENDATION: If indicated, hepatic and left adrenal lesions may be further characterized with abdomen MRI with and without intravenous contrast. Signed: Stephanie Duffy MD Report Verified Date/Time: 07/17/2018 12:37:32 Reading Location: [facility] B1 C013Y CT Body Reading Room Performing Organization Address City/State/Zipcode Phone Number GE RIS Hemoglobin A1c (07/17/2018 5:22 AM CDT) Hemoglobin A1C 5.6 4.3 - 6.1 % [facility] Specimen Blood Performing Organization Address City/State/Zipcode Phone Number [address] [phone] [facility] TRANSFUSION SERVICE REPORT - SCAN (07/16/2018 5:50 PM CDT) Narrative Performed At Albumin (07/16/2018 1:55 PM CDT) Albumin 3.9 3.5 - 5.0 g/dL [facility] Specimen Blood - Arm, Left Performing Organization Address City/[facility] Phone Number [address] [phone] [place] floor trader in or 30 minute increments (07/15/2018 2:18 PM CDT) Narrative Performed At FINAL REPORT GE RIS Intraoperative fluoroscopy. CLINICAL HISTORY: BOWEL OBSTRUCTION. FINDINGS: Seven fluoroscopically acquired images were acquired by the referring physician. An intraoperative verbal report was not requested. Fluoroscopy was not performed by the undersigned. Fluoroscopy time: 129 seconds. Seven images. Signed: Rj Angel MD Report Verified Date/Time:07/15/2018 14:44:01 Reading Location: [facility] B1 C013X Ortho Consult Reading Room Procedure Note Interface, External Ris In - 07/15/2018 2:46 PM CDT FINAL REPORT Intraoperative fluoroscopy. CLINICAL HISTORY: BOWEL OBSTRUCTION. FINDINGS: Seven fluoroscopically acquired images were acquired by the referring physician. An intraoperative verbal report was not requested. Fluoroscopy was not performed by the undersigned. Fluoroscopy time: 129 seconds. Seven images. Signed: Rj Angel MD Report Verified Date/Time: 07/15/2018 14:44:01 Reading Location: [facility] C013X Ortho Consult Reading Room Performing Organization Address City/State/Zipcode Phone Number [facility] REPORT OF PROCEDURE - ENDOSCOPY URL (07/15/2018 2:17 PM CDT) Narrative Performed At XR chest 1 view portable / bedside (07/15/2018 11:35 AM CDT) Narrative Performed At FINAL REPORT [facility] TECHNIQUE: Frontal view of the chest. INDICATION: Pneumonia. COMPARISON: None. FINDINGS: LINES/TUBES: NG/OG tube is only partially visualized. Due to lack of penetration, it is difficult to see the more distal portion. LUNGS: Mild patchy opacity in the right base PLEURA: Small right pleural effusion. HEART AND MEDIASTINUM: The cardiomediastinal silhouette is within normal limits. SOFT TISSUES AND BONES: Unremarkable. IMPRESSION: Small right pleural effusion. The patchy opacity in the right base could be atelectasis or pneumonia depending on clinical setting. Signed: João Mixon MD Report Verified Date/Time:07/15/2018 11:43:39 Reading Location: [facility] C013Y CT Body Reading Room Procedure Note Interface, External Ris In - 07/15/2018 12:04 PM CDT FINAL REPORT TECHNIQUE: Frontal view of the chest. INDICATION: Pneumonia. COMPARISON: None. FINDINGS: LINES/TUBES: NG/OG tube is only partially visualized. Due to lack of penetration, it is difficult to see the more distal portion. LUNGS: Mild patchy opacity in the right base PLEURA: Small right pleural effusion. HEART AND MEDIASTINUM: The cardiomediastinal silhouette is within normal limits. SOFT TISSUES AND BONES: Unremarkable. IMPRESSION: Small right pleural effusion. The patchy opacity in the right base could be atelectasis or pneumonia depending on clinical setting. Signed: João Mixon MD Report Verified Date/Time: 07/15/2018 11:43:39 Reading Location: [facility] B1 C013Y CT Body Reading Room Performing Organization Address City/[facility] Corporation[facility] Phone Number GE RIS Type and screen, automated (07/15/2018 10:47 AM CDT) ABO/RH AUTOMATED (BEAKER) A POSITIVE [facility] Ab Scrn NEGATIVE [facility] Specimen Blood - Arm, Left Performing Organization Address [facility] Corporationcoil Phone Number [address] [address] Carcinoembryonic Antigen (CEA) (07/15/2018 10:47 AM CDT) CEA, SERUM 766.0 (H) 0.0 - 5.0 ng/mL [facility] Specimen Blood - Arm, Left Performing Organization Address [facility] Corporation[facility] Phone Number [address] [address] [phone] CENTER Hepatic function panel (07/15/2018 8:44 AM CDT) Protein, Total 8.1 6.0 - 8.3 gm/dL [facility] Albumin 4.4 3.5 - 5.0 g/dL [facility] Total Bilirubin 0.6 0.2 - 1.2 mg/dL [facility] Bilirubin, Direct 0.3 0.1 - 0.5 mg/dL [facility] Alkaline Phosphatase 58 40 - 150 U/L [facility] AST 16 5 - 34 U/L [facility] ALT 19 6 - 55 U/L [facility] Specimen Blood - Arm, Left Performing Organization Address [facility] Corporationcode Phone Number [facility] [address] [place] [phone] [facility] Blood culture (07/14/2018 11:55 PM CDT)Only the most recent of2 resultswithin the time period is included. Result No growth in 5 days [facility] Specimen Blood - Hand, Right Performing Organization Address [facility] Corporation[facility]il Phone Number [address] [address] [phone] [place] Rapid Influenza A&B Screen (07/14/2018 11:30 PM CDT) Rapid Influenza A NEGATIVE LABORATORY Negative, Inconclusive [facility] Antigen FINDING [facility] Rapid influenza B NEGATIVE LABORATORY Negative, Inconclusive [facility] Antigen FINDING [facility] Specimen Nasal - Nasal Mucosa Performing Organization Address [facility] Phone Number [address] [address] [phone] [place] Strep pneumoniae urine antigen (07/14/2018 11:28 PM CDT) Strep pneumoniae Presumptive negative Presumptive negative [facility] for pneumococcal for pneumococcal [facility] pneumonia - see comment pneumonia - see CENTER comment, Presumptive negative for pneumococcal meningitis - see comment Specimen Urine - Urine, Unspecified Source Narrative Performed At Presumptive negative for pneumococcal [facility] pneumonia, suggesting no current or recent pneumococcal infection. Infection due to S. pneumoniae cannot be ruled out since the antigen present in the sample may be below the detection limit of the test. Performing Organization Address [facility] Corporation[facility] Phone Number [address] [address] [phone] [place] Legionella antigen, urine (07/14/2018 11:28 PM CDT) Legionella Urine Antigen Negative - see [facility] commentComment: Negative [facility] for L. pneumophila serogroup 1 antigen, suggesting no recent or current infection with this serogroup. Legionellosis cannot be ruled out since other serogroups and species may cause disease. Specimen Urine - Urine, Clean Catch Performing Organization Address City/[facility]/Zipcode Phone Number [facility] [address] [place] [address] CENTER EKG 12 lead (07/14/2018 10:59 PM CDT)Only the most recent of2 resultswithin the time period is included. Narrative Performed At Ventricular Rate 86 BPM GE MUSE Atrial Rate 86 BPM P-R Interval 158 ms QRS Duration 76 ms Q-T Interval 364 ms QTC Calculation(Bazett) 435 ms P [place] 57 degrees R [place] 35 degrees T [place] 178 degrees Sinus rhythm with Premature atrial complexes Minimal voltage criteria for LVH, may be normal variant T wave inversion lateral leads consider postischemic changes Abnormal ECG When compared with ECG of 14-JUL-2018 22:59, No significant change was found Confirmed by MD SAGE YOCHAI ([id number]) on 07/15/2018 6:45:16 AM Procedure Note Interface, External Ris In - 07/15/2018 6:45 AM CDT Ventricular Rate 86 BPM Atrial Rate 86 BPM P-R Interval 158 ms QRS Duration 76 ms Q-T Interval 364 ms QTC Calculation(Bazett) 435 ms P [place] 57 degrees R [place] 35 degrees T [place] 178 degrees Sinus rhythm with Premature atrial complexes Minimal voltage criteria for LVH, may be normal variant T wave inversion lateral leads consider postischemic changes Abnormal ECG When compared with ECG of 14-JUL-2018 22:59, No significant change was found Confirmed by MD SAEG YOCHAI ([id number]) on 07/15/2018 6:45:16 AM Performing Organization Address City/[facility]/Zipcode Phone Number [employer] RESPIRATORY PANEL [facility] (07/14/2018 10:29 PM CDT) Human Metapneumovirus Not detected Not detected, [facility] Rhinovirus Not detected Not detected, [facility] Influenza A Not detected Not detected, [facility] Equivocal [facility] INFLUENZA A (NO SUBTYPE) Not detected, [facility] Equivocal [facility] Influenza A subtype H1 Not detected, [facility] Influenza A Subtype H3 Not detected, [facility] Influenza A Subtype H1-2009 Not detected, [facility] Influenza B Not detected Not detected, [facility] Respiratory Syncytial Virus Not detected Not detected, [facility] Parainfluenza Virus 1 Not detected Not detected, [facility] Parainfluenza Virus 2 Not detected Not detected, [facility] Parainfluenza virus 3 Not detected Not detected, [facility] Parainfluenza Virus 4 Not detected Not detected, [facility] Adenovirus Not detected Not detected, [facility] Coronavirus 229E Not detected Not detected, [facility] Coronavirus HKU1 Not detected Not detected, [facility] Coronavirus NL63 Not detected Not detected, [facility] Coronavirus OC43 Not detected Not detected, [facility] Bordetella Pertussis Not detected Not detected, [facility] Chlamydophila Pneumoniae Not detected Not detected, [facility] Mycoplasma Pneumoniae Not detected Not detected, [facility] Specimen Nasopharyngeal - Nasopharyngeal Swab Narrative Performed At Other viruses and bacteria not targeted by [facility] this PCR panel cannot be excluded; therefore clinical correlation and follow up of serology, culture results, and other molecular studies is required. The results are not intended to be used as the sole means for clinical diagnosis or patient management decisions. This sample was tested at the [facility] Molecular Diagnostics Laboratory using the v2telArray Respiratory Panel. It is FDA cleared and has been verified and approved by the [facility] Molecular Diagnostics Laboratory for clinical use on nasal swab specimens. It is not FDA-cleared for use on bronchial wash/lavage samples. However, for this sample type, validation was performed and test characteristics were determined and approved, by [facility] Molecular Diagnostics laboratory for clinical use under the Clinical Laboratory Improvement Amendments (CLIA) of 1988 requirements. Therefore, FDA clearance is not required.This laboratory is CLIA-certified and [employer] (CAP)-accredited to perform high complexity testing. Performing Organization Address City/State/Zipcode Phone Number [facility] [address] [place] [address] CENTER after 09/09/2017 Insurance Payer Benefit Plan / Group Subscriber ID Type Phone Address OTHER-COMMERCIAL GENERIC COMMERCIAL xxxxxxxxx [employer] xxxxxxxxx PPO (Home) [id number] [place] [address] Advance Directives For more information, please contact:[address] [phone] Code Status Date Activated Date Inactivated Comments Full Code 07/14/2018 10:24 PM 07/20/2018 5:34 PM This code status was determined by: Patient
--- OUTSIDE RECORDS SUMMARY | 2018-09-10 11:47 | XMS REPORT ---
:1960 Author Organization [facility] Address [address] [place] [address] Care Team Providers Name Role Phone JENNY MARYAM Mc Unavailable Unavailable Problems This patient has no known problems. Allergies, Adverse Reactions, Alerts This patient has no known allergies or adverse reactions. Medications This patient has no known medications. Results Test Description Test Time Test Comments Text Results Atomic Results Result Comments TISSUE EXAM 2018-07-20 10:07:00 Surgical Pathology Report Case: [id number] Authorizing Provider: Jessi Turcios MD Collected: 07/17/2018 5797 Ordering Location: [address] Received: 07/17/2018 1607 Service Pathologist: Allen Velazquez MD Specimen: Omentum The addendum is being issued to report the results of immunohistochemistry (IHC) testing for Mismatch Repair (MMR) Proteins. The diagnosis remains unchanged.IHC testing for all four MMR proteins was performed with appropriate controls.RESULTSMLH1: Intact nuclear expressionMSH2: Intact nuclear expressionMSH6: Intact nuclear expressionPMS2: Intact nuclear expressionHE[facility] InterpretationNo loss of nuclear expression of MMR proteins: low probability of microsatellite instability-high (MSI-H)# #There are exceptions to the above IHC interpretations. These results should not be considered in isolation, and clinical correlation with genetic counseling is recommended to assess the need for germline testing.Immunohistochemistry disclaimer:The immunohistochemistry test was developed and its performance characteristics determined by [facility], Pathology Laboratory. It has not been cleared or approved by the U.S. Food and Drug Administration. The FDA has determined that such clearance or approval is not necessary. The test is used for clinical purposes. It should not be regarded as investigational or for research. This laboratory is certified under the Clinical Laboratory Improvement Amendments of 1988 (CLIA-88) as qualified to perform high complexity clinical laboratory testing.00103 x 4Addendum electronically signed by Star Trejo MD on 07/20/2018 at 10:07 AMPART A OMENTAL BIOPSY:MODERATELY DIFFERENTIATED ADENOCARCINOMA.SEE DIAGNOSTIC COMMENT. Signing Pathologist Direct Phone Line: [phone] signed by Allen Velazquez MD on 07/19/2018 at 7:35 AMPreliminary result electronically signed by Allen Velazquez MD on 07/18/2018 at 7:55 AMImmunohistochemical studies performed on block A1 demonstrate the tumor cells to be positive for CK20, CDX2, and CK19. They are negative for CK7, TTF1, and PSA. The immunoprofile is nonspecific but is most compatible with an adenocarcinoma of colonic origin. Correlation with clinical findings and imaging studies is required for complete interpretation.03035, 54196, [id number] givenOmentum The specimen is received in a formalin-filled container and labeled with the patient's information labeled "omentum" and consists of four off white core biopsies ranging from 0.2 to 0.4 cm, submitted entirely A1.CG/pl PERFORMED.The following special studies were performed on this case and the interpretation is incorporated in the diagnostic report above:BLOCK A1- CK7, CK20, CDX2, TTF1, PSA, MU56Tkj immunohistochemistry test was developed and its performance characteristics determined by [facility], Pathology Laboratory. It has not been cleared or approved by the U.S. Food and Drug Administration. The FDA has determined that such clearance or approval is not necessary. The test is used for clinical purposes. It should not be regarded as investigational or for research. This laboratory is certified under the Clinical Laboratory Improvement Amendments of 1988 (CLIA-88) as qualified to perform high complexity clinical laboratory testing. POCT-GLUCOSE METER 2018-07-20 09:00:00 Test Item Value Reference Range Comments POC-GLUCOSE METER (BEAKER) (test 195 mg/dL 70-[address] [facility] [address] g[facility]) [facility] [address] BLOOD [id number] 06:00:00 Test Item Value Reference Range Comments CULTURE ([employer]) (test ykhe=0414) No growth in 5 days BLOOD [id number] 06:00:00 Test Item Value Reference Range Comments CULTURE (BEAKER) (test ehfg=3396) No growth in 5 days BASIC METABOLIC [id number] 05:43:00 Test Item Value Reference Range Comments SODIUM (BEAKER) (test 141 meq/L 136-145 sibc=731) POTASSIUM (BEAKER) (test 3.6 meq/L 3.5-5.1 fwaw=328) CHLORIDE (BEAKER) (test 106 meq/L 98-107 jgvg=264) CO2 (BEAKER) (test 25 meq/L 22-29 rmmt=257) BLOOD UREA NITROGEN 9 mg/dL 7-21 (BEAKER) (test bqcf=224) CREATININE (BEAKER) (test 0.80 mg/dL 0.57-1.25 erwo=632) GLUCOSE RANDOM (BEAKER) 119 mg/dL 70-105 (test vryh=336) CALCIUM (BEAKER) (test 8.9 mg/dL 8.4-10.2 qfmz=336) EGFR (BEAKER) (test 121 mL/min/1.73 sq m ESTIMATED GFR IS NOT fmlh=8390) ACCURATE CREATININE CLEARANCE IN PREDICTING GLOMERULAR FILTRATION RATE. ESTIMATED GFR IS NOT APPLICABLE FOR DIALYSIS PATIENTS. CBC W/PLT COUNT & AUTO [id number] 05:01:00 Test Item Value Reference Range Comments WHITE BLOOD CELL COUNT (BEAKER) (test rpmj=327) 7.2 K/ L 3.5-10.5 RED BLOOD CELL COUNT (BEAKER) (test evju=028) 4.62 M/ L 4.63-6.08 HEMOGLOBIN (BEAKER) (test tvur=307) 13.4 GM/DL 13.7-17.5 HEMATOCRIT (BEAKER) (test cpni=022) 43.7 % 40.1-51.0 MEAN CORPUSCULAR VOLUME (BEAKER) (test ucpp=493) 94.6 fL 79.0-92.2 MEAN CORPUSCULAR HEMOGLOBIN (BEAKER) (test 29.0 pg 25.7-32.2 usdv=249) MEAN CORPUSCULAR HEMOGLOBIN CONC (BEAKER) (test 30.7 GM/DL 32.3-36.5 ilpk=155) RED CELL DISTRIBUTION WIDTH (BEAKER) (test 13.4 % 11.6-14.4 fkum=562) PLATELET COUNT (BEAKER) (test tfit=401) 224 K/CU MM 150-450 MEAN PLATELET VOLUME (BEAKER) (test uphv=913) 11.5 fL 9.4-12.4 NUCLEATED RED BLOOD CELLS (BEAKER) (test 0 /100 WBC 0-0 xsav=701) NEUTROPHILS RELATIVE PERCENT (BEAKER) (test 66 % sioa=874) LYMPHOCYTES RELATIVE PERCENT (BEAKER) (test 19 % vxgs=107) MONOCYTES RELATIVE PERCENT (BEAKER) (test 10 % uxpq=867) EOSINOPHILS RELATIVE PERCENT (BEAKER) (test 4 % svdk=324) BASOPHILS RELATIVE PERCENT (BEAKER) (test 1 % koem=232) NEUTROPHILS ABSOLUTE COUNT (BEAKER) (test 4.80 K/ L 1.78-5.38 brib=621) LYMPHOCYTES ABSOLUTE COUNT (BEAKER) (test 1.39 K/ L 1.32-3.57 wfwf=776) MONOCYTES ABSOLUTE COUNT (BEAKER) (test 0.72 K/ L 0.30-0.82 cqkv=231) EOSINOPHILS ABSOLUTE COUNT (BEAKER) (test 0.25 K/ L 0.04-0.54 bfke=036) BASOPHILS ABSOLUTE COUNT (BEAKER) (test 0.05 K/ L 0.01-0.08 gayc=805) IMMATURE GRANULOCYTES-RELATIVE PERCENT (BEAKER) 0 % 0-1 (test igzx=9192) POCT-GLUCOSE [id number] 22:22:00 Test Item Value Reference Range Comments POC-GLUCOSE METER (BEAKER) 171 mg/dL 70-[address] [facility] [address] [place] [address] (test ysfz=2146) [facility] [address] ANG, TUNNEL CATH CENTRAL INS W/PORT [id number] 18:25:00Reason for exam:-> need for chemotherapy.FINAL REPORT Right internal jugular chest port insertion History: Patient requires access for chemotherapy administration. Modality: Sonography andfluoroscopy. Sedation: Versed 1.5 mg and fentanyl 50 mcg given intravenously for conscious sedation. Vital signs were monitored throughout the procedure by a nurse, and remained stable. Physician intra-service time was 30 minutes. Compliance Auditor: Singh Escamilla MD Mine Wedge Sawyer: Noé. Approach: Right internal jugular vein Estimated blood loss : < 5 cc. Specimen:None. Fluoroscopy Time: 0.1 min.Reference Air Kerma (Ka , r): 5.4 mGy. Technique: Informed written consent was obtained. Discussion of risks, benefits, and alternatives were made with the patient. Thepatient expressed understanding and agreed to proceed. A [...] jugular vein, which was punctured under direct real- time ultrasound guidance with a micropuncture needle. An ultrasound image was saved to PACS. A 0.018 inch wire was placed through the needle into the right atrium. A 4 Polish micropuncture sheath was placed. A subcutaneous tunnel [...] placement. The skin incision was closed with 3- 0 running subcuticular Monocryl and Steri-Strips. The small [...] ready for immediate use. Signed: Singh Escamilla MDRsommer Verified Date/Time: 07/19 18:25:29 Reading Location: [facility] P048 Angio Body Reading Room POCT- GLUCOSE [id number] 16:53:00 Test Item Value Reference Range Comments POC-GLUCOSE METER (BEAKER) 124 mg/dL 70-110 TESTED AT [address] (test uyfq=5948) [facility] [address] TISSUE [id number] 16:29:00Surgical Pathology Report Case: [id number] Authorizing Provider: Julius Umanzor MD Collected: 07/18/2018 1502 Ordering Location: [address] Received: 07/19/2018 0751 Service Pathologist: Charo Brar MD Specimen: Large Intestine, Colon - Left/Descending , mass LEFT/DESCENDING COLON, BIOPSY: - INVASIVE MODERATELY DIFFERENTIATED ADENOCARCINOMA, SITUATED PREDOMINANTLY BENEATH THE MUSCULARIS MUCOSA, WITH FOCAL NECROSISMO/pl Signing Pathologist Direct Phone Line: [phone] signed by Charo Brar MD on 07/19/2018 at 4:29 [id number] v4Nrmslirs of colon, colonic mass Left descending colon mass biopsyThe specimen is received in a formalin-filled container labeled with the patient's information and labeled "left descending colon mass biopsy" and consists of multiple fragments of guido-red soft tissue ranging from less than 0.1 to 0.3 cm, submitted entirely in A1. CG/ew The biopsy from the left/descending colon shows an invasive mostly moderately differentiated adenocarcinoma, with features consistent with colonic type. A bit of the overlying epithelium shows some adenomatous changes, but a definitive adjacent polyp is not well-demonstrated in these sections. In this sample, invasive tumor is mostly present subjacent/below the muscularis mucosa and there is some associated necrosis with apoptosis. Other significant features are not noted.POCT-GLUCOSE [id number] 12:32:00 Test Item Value Reference Range Comments POC-GLUCOSE METER (BEAKER) 116 mg/dL 70-110 TESTED AT [address] (test lrsv=3498) [place] [id number] POCT-GLUCOSE [id number] 09:22:00 Test Item Value Reference Range Comments POC-GLUCOSE METER (BEAKER) 130 mg/dL 70-110 TESTED AT [address] (test pktm=3677) [place] [address] BASIC METABOLIC [id number] 06:03:00 Test Item Value Reference Range Comments SODIUM (BEAKER) (test 138 meq/L 136-145 jrfh=490) POTASSIUM (BEAKER) (test 3.3 meq/L 3.5-5.1 gqfz=048) CHLORIDE (BEAKER) (test 104 meq/L 98-107 bzlj=398) CO2 (BEAKER) (test 23 meq/L 22-29 azfn=389) BLOOD UREA NITROGEN 6 mg/dL 7-21 (BEAKER) (test qepb=750) CREATININE (BEAKER) (test 0.76 mg/dL 0.57-1.25 eykg=070) GLUCOSE RANDOM (BEAKER) 122 mg/dL 70-105 (test ldkr=064) CALCIUM (BEAKER) (test 9.2 mg/dL 8.4-10.2 jtct=825) EGFR (BEAKER) (test 128 mL/min/1.73 sq m ESTIMATED GFR IS NOT dlom=4299) ACCURATE CREATININE CLEARANCE IN PREDICTING GLOMERULAR FILTRATION RATE. ESTIMATED GFR IS NOT APPLICABLE FOR DIALYSIS PATIENTS. PROTHROMBIN [id number] 05:34:00 Test Item Value Reference Range Comments PROTIME (BEAKER) (test ygxa=753) 14.2 seconds 11.7-14.7 INR (BEAKER) (test cmxn=725) 1.1 <=5.9 RECOMMENDED COUMADIN/WARFARIN INR THERAPY RANGESSTANDARD DOSE: 2.0 - 3.0 Includes: PROPHYLAXIS forvenous thrombosis, systemic embolization; TREATMENT for venous thrombosis and/or pulmonary embolus.HIGH RISK: Target INR is 2.5-3.5 for patients with mechanical heart valves.CBC W/PLT COUNT & AUTO [id number] 05:29:00 Test Item Value Reference Range Comments WHITE BLOOD CELL COUNT (BEAKER) (test csbv=376) 9.1 K/ L 3.5-10.5 RED BLOOD CELL COUNT (BEAKER) (test dsng=655) 4.61 M/ L 4.63-6.08 HEMOGLOBIN (BEAKER) (test mgep=127) 13.5 GM/DL 13.7-17.5 HEMATOCRIT (BEAKER) (test gfxb=501) 42.6 % 40.1-51.0 MEAN CORPUSCULAR VOLUME (BEAKER) (test drsk=988) 92.4 fL 79.0-92.2 MEAN CORPUSCULAR HEMOGLOBIN (BEAKER) (test 29.3 pg 25.7-32.2 pbmc=200) MEAN CORPUSCULAR HEMOGLOBIN CONC (BEAKER) (test 31.7 GM/DL 32.3-36.5 vout=115) RED CELL DISTRIBUTION WIDTH (BEAKER) (test 13.3 % 11.6-14.4 zljb=078) PLATELET COUNT (BEAKER) (test oala=795) 235 K/CU MM 150-450 MEAN PLATELET VOLUME (BEAKER) (test hbiq=214) 11.5 fL 9.4-12.4 NUCLEATED RED BLOOD CELLS (BEAKER) (test 0 /100 WBC 0-0 meoh=089) NEUTROPHILS RELATIVE PERCENT (BEAKER) (test 71 % wnjp=689) LYMPHOCYTES RELATIVE PERCENT (BEAKER) (test 14 % exea=501) MONOCYTES RELATIVE PERCENT (BEAKER) (test 11 % bdjr=768) EOSINOPHILS RELATIVE PERCENT (BEAKER) (test 2 % vxws=794) BASOPHILS RELATIVE PERCENT (BEAKER) (test 1 % emge=746) NEUTROPHILS ABSOLUTE COUNT (BEAKER) (test 6.48 K/ L 1.78-5.38 dhxn=803) LYMPHOCYTES ABSOLUTE COUNT (BEAKER) (test 1.31 K/ L 1.32-3.57 gyle=127) MONOCYTES ABSOLUTE COUNT (BEAKER) (test 0.98 K/ L 0.30-0.82 hszq=578) EOSINOPHILS ABSOLUTE COUNT (BEAKER) (test 0.20 K/ L 0.04-0.54 fmco=540) BASOPHILS ABSOLUTE COUNT (BEAKER) (test 0.05 K/ L 0.01-0.08 tjmt=630) IMMATURE GRANULOCYTES-RELATIVE PERCENT (BEAKER) 1 % 0-1 (test ixhq=0083) POCT-GLUCOSE [id number] 23:21:00 Test Item Value Reference Range Comments POC-GLUCOSE METER (BEAKER) 127 mg/dL 70-110 TESTED AT [address] (test jqhc=3711) [facility] [address] POCT-GLUCOSE [id number] 17:29:00 Test Item Value Reference Range Comments POC-GLUCOSE METER (BEAKER) 116 mg/dL 70-110 TESTED AT [address] (test uftw=1319) [facility] [address] POCT-GLUCOSE [id number] 15:41:00 Test Item Value Reference Range Comments POC-GLUCOSE METER (BEAKER) 122 mg/dL 70-110 TESTED AT [address] (test akhb=6110) [place] [id number] 15:40:00Medical Cytology Report Case: [id number] Authorizing Provider: Jessi Turcios MD Collected: 07/17/2018 1435 Ordering Location: [address] Received: 07/18/2018 0837 Service Pathologist: Alvin Arroyo MD Specimen: Peritoneal Fluid PERITONEAL FLUID (CYTOSPINS): - SUSPICIOUS FOR MALIGNANCY Signing Pathologist Direct Phone Line: [phone] signed by Alvin Arroyo MD on 07/18/2018 at 3:40 PMThere are a few atypical clusters that are suspicious for malignancy in a background of reactive mesothelial cells and chronic inflammation.18905Tvdzvil; colon mass and omental nodules presents for CT-guided core biopsy of omentalnodulesPERITONEAL FLUIDPrepared 4 cytospins from 4 ml yellow blood-tinged fluidCollected: [id number]: [id number] [facility], Department of Pathology, [address] [place] [address], [facility], [address] [place] [address], [facility], [facility] of [facility], [address] [place] [address], GPCB-GLUCOSE [id number] 11:53:00 Test Item Value Reference Range Comments POC-GLUCOSE METER (BEAKER) 111 mg/dL 70-110 TESTED AT [address] (test odyp=4656) [place] [address] POCT-GLUCOSE [id number] 06:48:00 Test Item Value Reference Range Comments POC-GLUCOSE METER (BEAKER) 124 mg/dL 70-110 TESTED AT [address] (test qqix=1903) [place] [address] POCT-GLUCOSE [id number] 23:34:00 Test Item Value Reference Range Comments POC-GLUCOSE METER (BEAKER) 133 mg/dL 70-110 TESTED AT [address] (test mhxb=5207) [place] [address] BODY FLUID CELL COUNT WITH [id number] 18:38:00 Test Item Value Reference Range Comments APPEARANCE FLUID (BEAKER) (test pjvj=551) Slightly Bloody Clear COLOR FLUID (BEAKER) (test dwaq=018) Yarelis Colorless, Straw RBC FLUID (BEAKER) (test svvy=593) 9500 /cu mm <=1 ADJUSTED WBC FLUID (BEAKER) (test 1043 /cu mm <=5 tgpl=1510) LINING CELLS (BEAKER) (test wman=4458) 42 /cu mm <=1 NEUTROPHILS FLUID (BEAKER) (test pinp=0969) 17 % LYMPHS FLUID (BEAKER) (test vesr=373) 28 % MONO/MACROPHAGE FLUID (BEAKER) (test 55 % lbie=619) EOSINOPHILS FLUID (BEAKER) (test rlpp=962) 0 % BASO FLUID (BEAKER) (test agmm=219) 0 % CONTAINER BODY FLUID (BEAKER) (test EDTA Tube hqsa=8032) POCT-GLUCOSE [id number] 17:54:00 Test Item Value Reference Range Comments POC-GLUCOSE METER (BEAKER) 145 mg/dL 70-[address] [facility] [address] [facility] (test ejjc=7603) [facility] [address] CT, BIOPSY, [id number] 16:57:00Reason for exam:->Need biopsy of omentum for tissue diagnosisFINAL REPORT PROCEDURE: CT- guided core biopsy of omental nodules. Dose modulation, iterative reconstruction , and/or weight-based adjustment of the mA/kV was [...] no tissue was readily obtained. The needles wereremoved. It was then decided to target the omental nodularity in the left abdomen. Under CT guidance, a 19-gauge introducer needle was inserted into the left anterior abdominal wall and placed into theperiphery of the omental nodularity. The inner stylette was removed, and a 20-gauge Temno core biopsy needle was passed introducer and into the nodular. Five core biopsy samples of the omental nodularity were obtained. The needles were removed. Postprocedure CT scan revealed no evidence for hematoma. There were no immediate complications. IMPRESSION:Uncomplicated CT-guided core biopsy of omental nodules. Signed: Stephanie Mcdaniel MDReport Verified Date/Time: 2017 16:57:37 Reading Location: [address] Body Reading Room ALBUMIN , BODY [id number] 16:12:00 Test Item Value Reference Range Comments ALBUMIN FLUID (BEAKER) (test fsaz=039) 2.9 gm/dL Reference Range: No Normals Assay performance has not been validated for this type of specimen.PROTEIN, BODY [id number] 16:12:00 Test Item Value Reference Range Comments PROTEIN FLUID (BEAKER) (test zqdb=412) 5.0 g/dL Absence of reference range indicates that normals have not been defined.Assay performance has not been validated for this type of specimen.PT/[id number] 13:18:00 Test Item Value Reference Range Comments PROTIME (BEAKER) (test wwfp=857) 14.6 seconds 11.7-14.7 INR (BEAKER) (test okov=908) 1.1 <=5.9 PARTIAL THROMBOPLASTIN TIME (BEAKER) (test 27.7 seconds 22.5-36.0 astv=512) RECOMMENDED COUMADIN/WARFARIN INR THERAPY RANGESSTANDARD DOSE: 2.0 - 3.0 Includes: PROPHYLAXIS forvenous thrombosis, systemic embolization; TREATMENT for venous thrombosis and/or pulmonary embolus.HIGH RISK: Target INR is 2.5-3.5 for patients with mechanical heart valves.CBC W/PLT COUNT & AUTO [id number] 13:08:00 Test Item Value Reference Range Comments WHITE BLOOD CELL COUNT (BEAKER) (test wpkb=367) 10.4 K/ L 3.5-10.5 RED BLOOD CELL COUNT (BEAKER) (test ouar=588) 4.53 M/ L 4.63-6.08 HEMOGLOBIN (BEAKER) (test hzpb=607) 13.1 GM/DL 13.7-17.5 HEMATOCRIT (BEAKER) (test ivev=819) 43.3 % 40.1-51.0 MEAN CORPUSCULAR VOLUME (BEAKER) (test vrbn=821) 95.6 fL 79.0-92.2 MEAN CORPUSCULAR HEMOGLOBIN (BEAKER) (test 28.9 pg 25.7-32.2 fufw=480) MEAN CORPUSCULAR HEMOGLOBIN CONC (BEAKER) (test 30.3 GM/DL 32.3-36.5 ttts=004) RED CELL DISTRIBUTION WIDTH (BEAKER) (test 13.5 % 11.6-14.4 qixb=825) PLATELET COUNT (BEAKER) (test ctln=718) 236 K/CU MM 150-450 MEAN PLATELET VOLUME (BEAKER) (test kvbd=119) 11.4 fL 9.4-12.4 NUCLEATED RED BLOOD CELLS (BEAKER) (test 0 /100 WBC 0-0 iteh=754) NEUTROPHILS RELATIVE PERCENT (BEAKER) (test 73 % sxnx=565) LYMPHOCYTES RELATIVE PERCENT (BEAKER) (test 15 % chge=202) MONOCYTES RELATIVE PERCENT (BEAKER) (test 10 % ibxq=199) EOSINOPHILS RELATIVE PERCENT (BEAKER) (test 1 % byoo=181) BASOPHILS RELATIVE PERCENT (BEAKER) (test 1 % wseg=498) NEUTROPHILS ABSOLUTE COUNT (BEAKER) (test 7.56 K/ L 1.78-5.38 bben=360) LYMPHOCYTES ABSOLUTE COUNT (BEAKER) (test 1.60 K/ L 1.32-3.57 tofe=584) MONOCYTES ABSOLUTE COUNT (BEAKER) (test 1.01 K/ L 0.30-0.82 gapr=803) EOSINOPHILS ABSOLUTE COUNT (BEAKER) (test 0.14 K/ L 0.04-0.54 bsel=852) BASOPHILS ABSOLUTE COUNT (BEAKER) (test 0.06 K/ L 0.01-0.08 sawl=255) IMMATURE GRANULOCYTES-RELATIVE PERCENT (BEAKER) 0 % 0-1 (test bkal=5581) CT, [id number] 12:37:00CT abdomen pelvis with IV and PO contrast.FINAL REPORT TECHNIQUE: CT of the chest, abdomen, and pelvis WITH intravenouscontrast and WITH oral contrast. Dose modulation, iterative reconstruction, and/or weight-based adjustment of the mA/kV was utilized to reduce the radiation dose to as low as reasonably achievable. INDICATION: 57- year-old man with colon mass. COMPARISON: None. FINDINGS: LINES/TUBES: None. LUNGS AND AIRWAYS: Central airways are patent. 3 mm nodule in the right upper lobe adjacent to the minor fissure(axial lung window series image 34). Relaxation atelectasis in the right lower lobe adjacent to the pleural effusion. Linear subsegmental atelectasis in the left lung base. Subcentimeter calcified granulomas in the right lower lobe.PLEURA: Small-moderate right pleural effusion. HEART AND MEDIASTINUM: The visualized thyroid gland is normal. No significant mediastinal, hilar, or axillary lymphadenopathy. The heart and pericardium are within normal limits. HEPATOBILIARY: 1 cm enhancing lesion in the right hepatic lobe (axial series image 63). Gallbladder is unremarkable. No biliary ductal dilatation.SPLEEN: No splenomegaly.PANCREAS: No focal masses or ductal dilatation. ADRENALS: 3.9 x 3.1 cm left adrenal nodule. No right adrenal nodules.KIDNEYS/URETERS: No hydronephrosis, stones, or solid mass lesions.PELVIC ORGANS/BLADDER: The bladder is underdistended, limiting its evaluation. Prostate and seminal vesicles are grossly unremarkable. PERITONEUM/ RETROPERITONEUM: Omental and peritoneal soft tissue nodularity. Small volume ascites.LYMPH NODES: Few mildly prominent retroperitoneal lymph nodes, the largest is a 1.1 cm left para-aortic lymph node (axial series image 74). Nonspecific subcentimeter bilateral cardiophrenic lymph nodes measure up to 0.9 cm on the right.VESSELS: Atherosclerotic vascular calcifications without aneurysm. GI TRACT: Metallic stent and clip in the descending colon. The reported colonic mass in the descending colon is not clearly identified, likely secondary to overlying stent as well as lack of enteric contrast in this region. No bowel obstruction. Normal appendix. BONES AND SOFT TISSUES: Degenerative changes of the visualized spine. Soft tissues are unremarkable. IMPRESSION:Metallic stent in the descending colon. No bowel obstruction. The reported colonic mass is not clearly identified, likely secondary to overlying stent and lack of enteric contrast in this region. Peritoneal carcinomatosis with small volume ascites. Indeterminate findings, for which metastasis cannot be excluded, include: *3.9 cm left adrenal nodule.*Enhancing lesion in the right hepatic lobe.*Mildly prominent retroperitoneal lymph nodes.*3 mm pulmonary nodule in the right upper lobe. Small-moderate right pleural effusion. RECOMMENDATION:If indicated, hepatic and left adrenal lesions may be further characterized with abdomen MRI with and without intravenous contrast. Signed: Stephanie Mcdaniel MDReport Verified Date/Time: 07/17/2018 12:37:32 Reading Location: [address] Body Reading Room CT, CHEST, WITH [id number] 12:37:00FINAL REPORT TECHNIQUE: CT of the chest, abdomen, and pelvis WITH intravenouscontrast and WITH oral contrast. Dose modulation, iterative reconstruction, and/or weight-based adjustment of the mA/ kV was utilized to reduce the radiation dose to as low as reasonably achievable. INDICATION: 57-year-old man with colon mass. COMPARISON: None. FINDINGS: LINES/TUBES: None. LUNGS AND AIRWAYS: Central airways are patent. 3 mm nodule in the right upper lobe adjacent to the minor fissure(axial lung window series image 34). Relaxation atelectasis in the right lower lobe adjacent to the pleural effusion. Linear subsegmental atelectasis in the left lung base. Subcentimeter calcified granulomas in the right lower lobe.PLEURA: Small-moderate right pleural effusion. HEART AND MEDIASTINUM: The visualized thyroid gland is normal. No significant mediastinal, hilar, or axillary lymphadenopathy. The heart and pericardium are within normal limits. HEPATOBILIARY: 1 cm enhancing lesion in the right hepatic lobe (axial series image 63). Gallbladder is unremarkable. No biliary ductal dilatation.SPLEEN: No splenomegaly.PANCREAS: No focal masses or ductal dilatation. ADRENALS: 3.9 x 3.1 cm left adrenal nodule. No right adrenal nodules.KIDNEYS/URETERS: No hydronephrosis, stones, or solid mass lesions.PELVIC ORGANS/BLADDER: The bladder is underdistended, limiting its evaluation. Prostate and seminal vesicles are grossly unremarkable. PERITONEUM/RETROPERITONEUM: Omental and peritoneal soft tissue nodularity. Small volume ascites.LYMPH NODES: Few mildly prominent retroperitoneal lymph nodes, the largest is a 1.1 cm left para-aortic lymph node (axial series image 74). Nonspecific subcentimeter bilateral cardiophrenic lymph nodes measure up to 0.9 cm on the right.VESSELS: Atherosclerotic vascular calcifications without aneurysm. GI TRACT: Metallic stent and clip in the descending colon. The reported colonic mass in the descending colon is not clearly identified, likely secondary to overlying stent as well as lack of enteric contrast in this region. No bowel obstruction. Normal appendix. BONES AND SOFT TISSUES: Degenerative changes of the visualized spine. Soft tissues are unremarkable. IMPRESSION:Metallic stent in the descending colon. No bowel obstruction. The reported colonic mass is not clearly identified, likely secondary to overlying stent and lack of enteric contrast in this region. Peritoneal carcinomatosis with small volume ascites. Indeterminate findings, for which metastasis cannot be excluded, include: *3.9 cm left adrenal nodule.*Enhancing lesion in the right hepatic lobe.*Mildly prominent retroperitoneal lymph nodes.*3 mm pulmonary nodule in the right upper lobe. Small-moderate right pleural effusion. RECOMMENDATION:If indicated, hepatic and left adrenal lesions may be further characterized with abdomen MRI with and without intravenous contrast. Signed: Stephanie Mcdaniel MDReport Verified Date/Time: 07/17/2018 12:37:32 Reading Location: [facility] C013Y CT Body Reading Room 12 :37 PMPOCT-GLUCOSE [id number] 12:31:00 Test Item Value Reference Range Comments POC-GLUCOSE METER (BEAKER) 188 mg/dL 70-[address] [facility] [address] [place] [address] (test gdzb=4827) [facility] [address] CBC W/PLT COUNT & AUTO [id number] 12:21:00 Test Item Value Reference Range Comments WHITE BLOOD CELL COUNT (BEAKER) (test slmf=414) 10.1 K/ L 3.5-10.5 RED BLOOD CELL COUNT (BEAKER) (test jwuo=235) 4.41 M/ L 4.63-6.08 HEMOGLOBIN (BEAKER) (test nies=496) 13.1 GM/DL 13.7-17.5 HEMATOCRIT (BEAKER) (test mwdp=859) 42.6 % 40.1-51.0 MEAN CORPUSCULAR VOLUME (BEAKER) (test wxem=119) 96.6 fL 79.0-92.2 MEAN CORPUSCULAR HEMOGLOBIN (BEAKER) (test 29.7 pg 25.7-32.2 nrpk=803) MEAN CORPUSCULAR HEMOGLOBIN CONC (BEAKER) (test 30.8 GM/DL 32.3-36.5 cjab=238) RED CELL DISTRIBUTION WIDTH (BEAKER) (test 14.0 % 11.6-14.4 hnhl=851) PLATELET COUNT (BEAKER) (test dmeu=405) 232 K/CU MM 150-450 MEAN PLATELET VOLUME (BEAKER) (test cdoh=005) 12.5 fL 9.4-12.4 NUCLEATED RED BLOOD CELLS (BEAKER) (test 0 /100 WBC 0-0 jkhh=687) NEUTROPHILS RELATIVE PERCENT (BEAKER) (test 73 % puyu=808) LYMPHOCYTES RELATIVE PERCENT (BEAKER) (test 14 % mvds=323) MONOCYTES RELATIVE PERCENT (BEAKER) (test 10 % xzlz=264) EOSINOPHILS RELATIVE PERCENT (BEAKER) (test 1 % bhxm=326) BASOPHILS RELATIVE PERCENT (BEAKER) (test 1 % ycqw=102) NEUTROPHILS ABSOLUTE COUNT (BEAKER) (test 7.40 K/ L 1.78-5.38 qrfb=058) LYMPHOCYTES ABSOLUTE COUNT (BEAKER) (test 1.45 K/ L 1.32-3.57 npau=847) MONOCYTES ABSOLUTE COUNT (BEAKER) (test 1.01 K/ L 0.30-0.82 klsc=969) EOSINOPHILS ABSOLUTE COUNT (BEAKER) (test 0.13 K/ L 0.04-0.54 wufx=387) BASOPHILS ABSOLUTE COUNT (BEAKER) (test 0.07 K/ L 0.01-0.08 lbgi=087) IMMATURE GRANULOCYTES-RELATIVE PERCENT (BEAKER) 0 % 0-1 (test ccyr=2760) HEMOGLOBIN [id number] 10:07:00 Test Item Value Reference Range Comments HEMOGLOBIN A1C (BEAKER) (test rgum=034) 5.6 % 4.3-6.1 BASIC METABOLIC [id number] 06:33:00 Test Item Value Reference Range Comments SODIUM (BEAKER) (test 138 meq/L 136-145 ueag=084) POTASSIUM (BEAKER) (test 3.4 meq/L 3.5-5.1 wtyp=527) CHLORIDE (BEAKER) (test 105 meq/L 98-107 ljpr=435) CO2 (BEAKER) (test 24 meq/L 22-29 mvcp=287) BLOOD UREA NITROGEN 10 mg/dL 7-21 (BEAKER) (test wyfu=452) CREATININE (BEAKER) (test 0.80 mg/dL 0.57-1.25 jrcv=850) GLUCOSE RANDOM (BEAKER) 122 mg/dL 70-105 (test sqqr=796) CALCIUM (BEAKER) (test 8.5 mg/dL 8.4-10.2 mrxm=433) EGFR (BEAKER) (test 121 mL/min/1.73 sq m ESTIMATED GFR IS NOT qpgr=3459) ACCURATE CREATININE CLEARANCE IN PREDICTING GLOMERULAR FILTRATION RATE. ESTIMATED GFR IS NOT APPLICABLE FOR DIALYSIS PATIENTS. POCT-GLUCOSE [id number] 05:17:00 Test Item Value Reference Range Comments POC-GLUCOSE METER (BEAKER) 133 mg/dL 70-110 TESTED AT [address] (test xvdw=7172) [place] [id number] POCT-GLUCOSE [id number] 23:45:00 Test Item Value Reference Range Comments POC-GLUCOSE METER (BEAKER) 121 mg/dL 70-110 TESTED AT [address] (test ptmv=8176) [place] [address] POCT-GLUCOSE [id number] 17:45:00 Test Item Value Reference Range Comments POC-GLUCOSE METER (BEAKER) 112 mg/dL 70-110 TESTED AT [address] (test wbin=7428) [place] [address] [id number] 14:30:00 Test Item Value Reference Range Comments ALBUMIN (BEAKER) (test qdep=4601) 3.9 g/dL 3.5-5.0 POCT-GLUCOSE [id number] 12:40:00 Test Item Value Reference Range Comments POC-GLUCOSE METER (BEAKER) 110 mg/dL 70-110 TESTED AT [address] (test ygzj=1142) [place] [id number] POCT-GLUCOSE [id number] 08:32:00 Test Item Value Reference Range Comments POC-GLUCOSE METER (BEAKER) 137 mg/dL 70-110 TESTED AT [address] (test xrep=3665) [place] [address] BASIC METABOLIC [id number] 06:10:00 Test Item Value Reference Range Comments SODIUM (BEAKER) (test 143 meq/L 136-145 ighd=159) POTASSIUM (BEAKER) (test 3.4 meq/L 3.5-5.1 epzv=493) CHLORIDE (BEAKER) (test 105 meq/L 98-107 uebd=790) CO2 (BEAKER) (test 26 meq/L 22-29 sqyu=354) BLOOD UREA NITROGEN 13 mg/dL 7-21 (BEAKER) (test pyde=056) CREATININE (BEAKER) (test 0.96 mg/dL 0.57-1.25 ipby=786) GLUCOSE RANDOM (BEAKER) 90 mg/dL 70-105 (test spkt=145) CALCIUM (BEAKER) (test 9.1 mg/dL 8.4-10.2 oudp=723) EGFR (BEAKER) (test 98 mL/min/1.73 sq m ESTIMATED GFR IS NOT yvmt=1372) ACCURATE CREATININE CLEARANCE IN PREDICTING GLOMERULAR FILTRATION RATE. ESTIMATED GFR IS NOT APPLICABLE FOR DIALYSIS PATIENTS. POCT-GLUCOSE [id number] 00:28:00 Test Item Value Reference Range Comments POC-GLUCOSE METER (BEAKER) 108 mg/dL 70-110 TESTED AT [address] (test wzej=1702) [place] [id number] POCT-GLUCOSE [id number] 00:28:00 Test Item Value Reference Range Comments POC-GLUCOSE METER (BEAKER) 107 mg/dL 70-110 TESTED AT [address] (test lyjr=5028) [place] [address] POCT-GLUCOSE [id number] 17:40:00 Test Item Value Reference Range Comments POC-GLUCOSE METER (BEAKER) 137 mg/dL 70-110 TESTED AT [address] (test obxa=8527) [facility] [address] [place], CUSTOMER SUPPORT ADVISOR IN OR/30 MINUTE [id number] 14:44:00INTRA OP IMAGINGReason for exam:->BOWEL OBSTRUCTIONFINAL REPORT Intraoperative fluoroscopy. CLINICAL HISTORY: BOWEL OBSTRUCTION.FINDINGS: Seven fluoroscopically acquired images were acquired by the referring physician. An intraoperative verbal report was not requested. Fluoroscopy was not performed by the undersigned. Fluoroscopy time: 129 seconds. Seven images. Signed: Rj Angel Verified Date/Time: 14:44:01 Reading Location: [address] Ortho Consult Reading Room POCT- GLUCOSE [id number] 12:28:00 Test Item Value Reference Range Comments POC-GLUCOSE METER (ZACHARY) 154 mg/dL 70-110 TESTED AT [address] (test cxbh=7057) [facility] [address] CARCINOEMBRYONIC ANTIGEN (CEA)2018-07-15 11:45:00 Test Item Value Reference Range Comments CARCINOEMBRYONIC ANTIGEN (KEVINAKER) (test 766.0 ng/mL 0.0-5.0 cmme=480) RAD, CHEST, 1 VIEW, NON [id number] 11:43:00Reason for exam:->pnaShould this be performed at the bedside?->YesFINAL REPORT TECHNIQUE: Frontal view of the chest. [...] BONES: Unremarkable. IMPRESSION: Small right pleural effusion. Thepatchy opacity in the right base could be atelectasis or pneumonia depending on clinical setting. Signed: João Mixon Verified Date/Time: 2017 11:43:39 Reading Location: [facility] C013Y CT Body Reading Room HEPATIC FUNCTION [id number] 09:19:00 Test Item Value Reference Range Comments TOTAL PROTEIN (BEAKER) (test tduf=000) 8.1 gm/dL 6.0-8.3 ALBUMIN (BEAKER) (test jpia=2327) 4.4 g/dL 3.5-5.0 BILIRUBIN TOTAL (BEAKER) (test ebgg=042) 0.6 mg/dL 0.2-1.2 BILIRUBIN DIRECT (BEAKER) (test jqjk=024) 0.3 mg/dL 0.1-0.5 ALKALINE PHOSPHATASE (BEAKER) (test unhu=424) 58 U/L 40-150 AST (SGOT) (BEAKER) (test jxoq=865) 16 U/L 5-34 ALT (SGPT) (BEAKER) (test kgrx=290) 19 U/L 6-55 POCT-GLUCOSE [id number] 08:21:00 Test Item Value Reference Range Comments POC-GLUCOSE METER (BEAKER) 130 mg/dL 70-[address] [facility] [address] [facility] (test xfah=0217) [facility] [address] RESPIRATORY PANEL [id number] 07:29:00 Test Item Value Reference Range Comments HUMAN METAPNEUMOVIRUS (BEAKER) (test Not detected Not detected, Equivocal chni=8401) RHINOVIRUS (BEAKER) (test xuuc=0559) Not detected Not detected, Equivocal INFLUENZA A (BEAKER) (test iogl=1730) Not detected Not detected, Equivocal INFLUENZA A (NO SUBTYPE) (test Not detected, Equivocal kdgf=9191) INFLUENZA A SUBTYPE H1 (BEAKER) (test Not detected, Equivocal tssq=7460) INFLUENZA A SUBTYPE H3 (BEAKER) (test Not detected, Equivocal jfpy=0113) INFLUENZA A SUBTYPE H1-2009 (BEAKER) Not detected, Equivocal (test degs=7723) INFLUENZA B (BEAKER) (test nxfk=6979) Not detected Not detected, Equivocal RESPIRATORY SYNCYTIAL VIRUS (BEAKER) Not detected Not detected, Equivocal (test desf=2042) PARAINFLUENZA VIRUS 1 (BEAKER) (test Not detected Not detected, Equivocal ykvb=6393) PARAINFLUENZA VIRUS 2 (BEAKER) (test Not detected Not detected, Equivocal xciu=0604) PARAINFLUENZA VIRUS 3 (BEAKER) (test Not detected Not detected, Equivocal fhow=1759) PARAINFLUENZA VIRUS 4 (BEAKER) (test Not detected Not detected, Equivocal toob=4399) ADENOVIRUS (BEAKER) (test thiz=1565) Not detected Not detected, Equivocal CORONAVIRUS 229E (BEAKER) (test Not detected Not detected, Equivocal czen=4560) CORONAVIRUS HKU1 (BEAKER) (test Not detected Not detected, Equivocal pule=1071) CORONAVIRUS NL63 (BEAKER) (test Not detected Not detected, Equivocal tcbj=3300) CORONAVIRUS OC43 (BEAKER) (test Not detected Not detected, Equivocal yueb=4353) BORDETELLA PERTUSSIS (BEAKER) (test Not detected Not detected, Equivocal xbud=8318) CHLAMYDOPHILA PNEUMONIAE (BEAKER) (test Not detected Not detected, Equivocal ikpj=3497) MYCOPLASMA PNEUMONIAE (BEAKER) (test Not detected Not detected, Equivocal tayv=6517) Other viruses and bacteria not targeted by this PCR panel cannot be excluded; therefore clinical correlation and follow up of serology, culture results, and other molecular studies is required. The results are not intended to be used as the sole means for clinical diagnosis or patient management decisions. This sample was tested at the [facility] Molecular Diagnostics Laboratory using the [employer] Respiratory Panel. It is FDA cleared and has been verified and approved by the [facility] Molecular [facility]ostics Laboratory for clinical use on nasal swab specimens. It is not FDA-cleared for use on bronchial wash/lavage samples. However, for this sample type, validation was performed and test characteristics were determined and approved, by [facility] Molecular Diagnostics laboratory for clinical use under the Clinical Laboratory Improvement Amendments (CLIA) of 1988 requirements. Therefore, FDA clearance isnot required. This laboratory is CLIA-certified and [employer] ([employer])-accredited to perform high complexity testing.LEGIONELLA ANTIGEN, [id number] 04:44:00 Test Item Value Reference Range Comments L. PNEUMOPHILA SEROGP 1 Negative - see Negative for L. UR AG (BEAKER) (test comment pneumophila serogroup 1 yvvb=1038) antigen, suggesting no recent or current infection with this serogroup. Legionellosis cannot be ruled out since other serogroups and species may cause disease. STREP PNEUMONIAE [id number] 04:43:00 Test Item Value Reference Range Comments STREP PNEUMONIAE ANTIGEN Presumptive negative for Presumptive negative for (BEAKER) (test pneumococcal pneumonia - pneumococcal pneumonia - vgvz=3961) see comment see commen Presumptive negative for pneumococcal pneumonia, suggesting no current or recent pneumococcal infection. Infection due to S. pneumoniae cannot be ruled out since the antigen present in the sample may be below the detection limit of the test.POCT-GLUCOSE [id number] 01:51:00 Test Item Value Reference Range Comments POC-GLUCOSE METER (BEAKER) 127 mg/dL 70-[address] [facility] [address] [facility] (test kgmp=4474) [facility] [address] BASIC METABOLIC [id number] 00:38:00 Test Item Value Reference Range Comments SODIUM (BEAKER) (test 136 meq/L 136-145 tzhm=268) POTASSIUM (BEAKER) (test 3.3 meq/L 3.5-5.1 llue=718) CHLORIDE (BEAKER) (test 101 meq/L 98-107 damr=110) CO2 (BEAKER) (test 22 meq/L 22-29 hacb=067) BLOOD UREA NITROGEN 11 mg/dL 7-21 (BEAKER) (test stba=288) CREATININE (BEAKER) (test 0.85 mg/dL 0.57-1.25 ryiv=363) GLUCOSE RANDOM (BEAKER) 114 mg/dL 70-105 (test kors=827) CALCIUM (BEAKER) (test 9.3 mg/dL 8.4-10.2 nrbo=119) EGFR (BEAKER) (test 113 mL/min/1.73 sq m ESTIMATED GFR IS NOT tdnw=0624) ACCURATE CREATININE CLEARANCE IN PREDICTING GLOMERULAR FILTRATION RATE. ESTIMATED GFR IS NOT APPLICABLE FOR DIALYSIS PATIENTS. RAPID INFLUENZA A&B [id number] 00:32:00 Test Item Value Reference Range Comments RAPID INFLUENZA A AG (BEAKER) (test Negative Negative, Inconclusive ugbk=2459) RAPID INFLUENZA B AG (BEAKER) (test Negative Negative, Inconclusive xted=9848) CBC W/PLT COUNT & AUTO [id number] 22:58:00 Test Item Value Reference Range Comments WHITE BLOOD CELL COUNT (BEAKER) (test tjpf=567) 10.9 K/ L 3.5-10.5 RED BLOOD CELL COUNT (BEAKER) (test bxqm=080) 4.96 M/ L 4.63-6.08 HEMOGLOBIN (BEAKER) (test ndux=729) 14.5 GM/DL 13.7-17.5 HEMATOCRIT (BEAKER) (test mdim=626) 46.1 % 40.1-51.0 MEAN CORPUSCULAR VOLUME (BEAKER) (test oxnh=377) 92.9 fL 79.0-92.2 MEAN CORPUSCULAR HEMOGLOBIN (BEAKER) (test 29.2 pg 25.7-32.2 wcza=848) MEAN CORPUSCULAR HEMOGLOBIN CONC (BEAKER) (test 31.5 GM/DL 32.3-36.5 suhe=600) RED CELL DISTRIBUTION WIDTH (BEAKER) (test 13.9 % 11.6-14.4 xffg=732) PLATELET COUNT (BEAKER) (test jmny=585) 277 K/CU MM 150-450 MEAN PLATELET VOLUME (BEAKER) (test fska=647) 11.2 fL 9.4-12.4 NUCLEATED RED BLOOD CELLS (BEAKER) (test 0 /100 WBC 0-0 kluy=985) NEUTROPHILS RELATIVE PERCENT (BEAKER) (test 81 % pwup=267) LYMPHOCYTES RELATIVE PERCENT (BEAKER) (test 11 % qjvp=298) MONOCYTES RELATIVE PERCENT (BEAKER) (test 7 % rpcx=816) EOSINOPHILS RELATIVE PERCENT (BEAKER) (test 0 % eoqk=519) BASOPHILS RELATIVE PERCENT (BEAKER) (test 0 % hkbg=570) NEUTROPHILS ABSOLUTE COUNT (BEAKER) (test 8.86 K/ L 1.78-5.38 ruwi=399) LYMPHOCYTES ABSOLUTE COUNT (BEAKER) (test 1.21 K/ L 1.32-3.57 wybj=850) MONOCYTES ABSOLUTE COUNT (BEAKER) (test 0.79 K/ L 0.30-0.82 qgrr=697) EOSINOPHILS ABSOLUTE COUNT (BEAKER) (test 0.01 K/ L 0.04-0.54 wgvf=235) BASOPHILS ABSOLUTE COUNT (BEAKER) (test 0.02 K/ L 0.01-0.08 hisr=560) IMMATURE GRANULOCYTES-RELATIVE PERCENT (BEAKER) 1 % 0-1 (test zepc=6930)
[2018-09-10] MEDS ORDERED: NA CHLORIDE 0.9% 1,000 ML ONE (13:02)
[2018-09-10] MEDS ORDERED: CIPROFLOXACIN 400mg IV 400 MG/200 ML BAG IV ONE (13:03)
[2018-09-10] MEDS ORDERED: METRONIDAZOLE 500mg IVPB 500 MG/100 ML BAG IV ONE (13:03)
[2018-09-10 13:04] LABS: Absolute Lymphocytes (CBC) 1.4 K/uL (0.7-4.9); Absolute Neutrophil 7.9 K/uL (1.8-8.0); Basophils % 0.4 % (0-1.3); Eosinophils % 0.5 % (0-4.4); Hematocrit 42.6 % (39.6-49.0); Lymphocytes % 13.8 % (15.3-44.8); MCH 29.6 pg (27.0-35.0); MPV 9.7 fL (7.6-11.3); Monocytes % 9.3 % (3.3-12.3)
[2018-09-10 13:05] LABS: Protime INR 1.18
[2018-09-10] MEDS ORDERED: MORPHINE 4 MG/ML SYR ONE ×3 (13:06→19:04)
[2018-09-10] MEDS ORDERED: ONDANSETRON 4 MG/2 ML VIAL ONE (13:06)
--- NOTE | 2018-09-10 13:08 | RAD REPORT ---
EXAM DESCRIPTION: RAD - Chest Single View - 09/10/2018 12:43 pm CLINICAL HISTORY: ABDOMINAL DISTENTION Chest pain. COMPARISON: Chest Single View dated 07/14/2018; Chest Single View dated 11/30/2016; CHEST SINGLE VIEW dated 10/02/2013; CHEST SINGLE VIEW dated 05/17/2010; Abdomen Pelvis W Contrast dated 07/14/2018 FINDINGS: Portable technique limits examination quality. Linear opacities in the medial right lung base noted, likely atelectasis. The heart is normal in size . No displaced fractures.Right-sided port catheter its tip in the SVC.
[2018-09-10 13:19] LABS: ALT/SGPT 22 U/L (12-78); AST/SGOT 10 U/L (15-37); Alkaline Phosphatase 70 U/L (45-117); BUN Blood Urea Nitrogen 12 mg/dL (7-18); Bicarbonate 29 mmol/L (21-32); Bilirubin Direct 0.2 mg/dL (0-0.2); Bilirubin Total 0.5 mg/dL (0.2-1.0); Glucose Level 123 mg/dL (74-106); Lipase 107 U/L (73-393); Magnesium 2.1 mg/dL (1.8-2.4); NT PRO-BNP 122 pg/mL (<125); Potassium 3.1 mmol/L (3.5-5.1); Protein, Total 9.1 g/dL (6.4-8.2); Sodium Level 137 mmol/L (136-145); Troponin (Emerg Dept Use Only) < 0.02 ng/mL (0.0-0.045)
[2018-09-10] MEDS ORDERED: KCL 20 MEQ/100 mL IVPB 20 MEQ/100 ML BAG IV ONE (14:42)
--- NOTE | 2018-09-10 15:21 | RAD REPORT ---
EXAM DESCRIPTION: CT - Abdomen Pelvis W Contrast - 09/10/2018 2:22 pm CLINICAL HISTORY: Abdominal pain, history of colon cancer COMPARISON: CT July 2018 TECHNIQUE: Biphasic, helical CT imaging of the abdomen and pelvis was performed following 100 ml non -ionic IV contrast. No oral contrast administered. All CT scans are performed using dose optimization technique as appropriate and may include automated exposure control or mA/KV adjustment according to patient size. FINDINGS: Moderate right pleural effusion present with partial atelectasis of the right lower lobe. This is similar to July. No left-sided pleural effusion. No pericardial thickening or significant effusion. Lymph node in the right side pericardial fat has not changed size since July. The liver, spleen, and pancreas show no suspicious findings. Gallbladder and biliary tree are also wi thout suspicious finding. Symmetric renal function is seen with no hydronephrosis or suspicious renal mass. No pyelonephritis o r acute renal parenchymal process. Contracted urinary bladder shows no suspicious finding. A 4.3 x 3. 3 cm left adrenal mass is present similar to July. No gastric dilatation or wall thickening. There is a small quantity of oral contrast present having r eached the distal small bowel but not yet having reached the colon. Rectum and sigmoid portions of th e colon contain a small to moderate amount of stool with no acute findings. There is a stent in place across the descending colon, site of malignancy seen on the July study. From cecum to the proxima l aspect of the descending mass the colon is distended 8-9 cm. No wall thickening or edema. No free air or pneumatosis. Mild ascites is present primarily in the upper abdomen. This is a non sourav inable quantity of fluid. Ascites volume is similar to the comparison study. Carcinomatosis is seen with omental thickening and nodularity. No bulky lymphadenopathy. No hernia seen. No suspicious bony findings. IMPRESSION: Since the prior examination a stent has been placed across the obstructing descending co leydi malignancy. Colon proximal to the stent is distended or dilated 10 8-9 cm. The lumen across the stent is patent. Malignant ascites and carcinomatosis findings have not changed. No free air or surgically emergent finding.
[2018-09-10 15:36] LABS: Urine Blood TRACE (NEG); Urine Glucose NEGATIVE (NEG); Urine Protein 2+ (NEG)
--- NOTE | 2018-09-10 15:44 | EDPHYS ---
Physician Documentation [facility] Name: Shai Gonzalez Jr Age: 57 yrs Sex: Male : 1960 Arrival Date: 09/10/2018 Time: 11:46 Bed 2 Private MD: Trent Santiago H ED Physician Deondre Quijano HPI: 09/10 12:16 This 57 yrs old Black Male presents to ER via Ambulatory with complaints of Abdominal joao Pain. 12:16 The patient presents with abdominal pain abdominal distention in the upper abdomen, in joao the lower abdomen. Onset: The symptoms/episode began/occurred 1 week(s) ago. The symptoms do not radiate. Associated signs and symptoms: Pertinent positives: nausea and vomiting, shortness of breath. The symptoms are described as constant, crampy. Modifying factors: The symptoms are alleviated by nothing, the symptoms are aggravated by breathing deeply, pressure, walking. Severity of pain: At its worst the pain was mild moderate in the emergency department the pain is unchanged. The patient has experienced similar episodes in the past, multiple times. Historical: - Allergies: 11:59 No Known Allergies; aj - Home Meds: 11:59 amlodipine 10 mg tab 1 tab once daily [Active]; cyclobenzaprine 10 mg Oral tab 1 tab as aj needed [Active]; Lasix 20 mg Oral tab 1 tab 2 times per day [Active]; tolterodine 4 mg Oral cp24 1 cap once daily [Active]; tramadol 50 mg Oral tab 1 tab as needed [Active]; Hydrocodone-Acetaminophen Oral [Active]; - PMHx: 11:59 Asthma; Back pain; Diabetes - NIDDM; Gout; Hypertension; Colon Cancer; aj - PSHx: 11:59 Stent in bowel; aj - Immunization history:: Adult Immunizations up to date. - Social history:: Smoking status: Patient/guardian denies using tobacco. - Ebola Screening: : Patient negative for fever greater than or equal to 101.5 degrees Fahrenheit, and additional compatible Ebola Virus Disease symptoms Patient denies exposure to infectious person Patient denies travel to an Ebola-affected area in the 21 days before illness onset No symptoms or risks identified at this time. - Family history:: not pertinent. ROS: 12:16 Constitutional: Negative for fever, chills, and weight loss, Eyes: Negative for injury, joao pain, redness, and discharge, ENT: Negative for injury, pain, and discharge, Neck: Negative for injury, pain, and swelling, Cardiovascular: Negative for chest pain, palpitations, and edema, Respiratory: Negative for shortness of breath, cough, wheezing, and pleuritic chest pain, Back: Negative for injury and pain, : Negative for injury, bleeding, discharge, and swelling, MS/Extremity: Negative for injury and deformity, Skin: Negative for injury, rash, and discoloration, Neuro: Negative for headache, weakness, numbness, tingling, and seizure, Psych: Negative for depression, anxiety, suicide ideation, homicidal ideation, and hallucinations, Allergy/Immunology: Negative for hives, rash, and allergies, Endocrine: Negative for neck swelling, polydipsia, polyuria, polyphagia, and marked weight changes, Hematologic/Lymphatic: Negative for swollen nodes, abnormal bleeding, and unusual bruising. 12:16 Abdomen/GI: Positive for abdominal pain, abdominal distension, of the right upper quadrant, left upper quadrant, right lower quadrant and left lower quadrant. Exam: 12:16 Constitutional: This is a well developed, well nourished patient who is awake, alert, joao and in no acute distress. Head/Face: Normocephalic, atraumatic. Eyes: Pupils equal round and reactive to light, extra-ocular motions intact. Lids and lashes normal. Conjunctiva and sclera are non-icteric and not injected. Cornea within normal limits. Periorbital areas with no swelling, redness, or edema. ENT: Nares patent. No nasal discharge, no septal abnormalities noted. Tympanic membranes are normal and external auditory canals are clear. Oropharynx with no redness, swelling, or masses, exudates, or evidence of obstruction, uvula midline. Mucous membranes moist. Neck: Trachea midline, no thyromegaly or masses palpated, and no cervical lymphadenopathy. Supple, full range of motion without nuchal rigidity, or vertebral point tenderness. No Meningismus. Chest/axilla: Normal chest wall appearance and motion. Nontender with no deformity. No lesions are appreciated. Cardiovascular: Regular rate and rhythm with a normal S1 and S2. No gallops, murmurs, or rubs. Normal PMI, no JVD. No pulse deficits. Respiratory: Lungs have equal breath sounds bilaterally, clear to auscultation and percussion. No rales, rhonchi or wheezes noted. No increased work of breathing, no retractions or nasal flaring. Back: No spinal tenderness. No costovertebral tenderness. Full range of motion. Male : Normal genitalia with no discharge or lesions. Skin: Warm, dry with normal turgor. Normal color with no rashes, no lesions, and no evidence of cellulitis. MS/ Extremity: Pulses equal, no cyanosis. Neurovascular intact. Full, normal range of motion. Neuro: Awake and alert, GCS 15, oriented to person, place, time, and situation. Cranial nerves II-XII grossly intact. Motor strength 5/5 in all extremities. Sensory grossly intact. Cerebellar exam normal. Normal gait. Psych: Awake, alert, with orientation to person, place and time. Behavior, mood, and affect are within normal limits. 12:16 Abdomen/GI: Inspection: distension, Bowel sounds: active, Palpation: mild abdominal tenderness, in all quadrants, Liver: no appreciated palpable abnormalities, Hernia: not appreciated. Vital Signs: 11:59 BP 172 / 88; Pulse 94; Resp 24; Temp 98.1; Pulse Ox 97% on R/A; Weight 136.53 kg; aj Height 5 ft. 11 in. (180.34 cm); 12:53 BP 157 / 88; Pulse 100; Resp 28; Pulse Ox 96% on R/A; mh5 14:10 BP 136 / 73; Pulse 97; Resp 24; Pulse Ox 97% on R/A; ca1 15:05 BP 141 / 84; Pulse 98; Resp 24; Pulse Ox 96% on R/A; Pain 6/10; ca1 16:05 BP 127 / 76; Pulse 94; Resp 21 S; Pulse Ox 92% on R/A; Pain 5/10; ca1 17:03 BP 130 / 78; Pulse 90; Resp 25; Pulse Ox 97% on R/A; ca1 11:59 Body Mass Index 41.98 (136.53 kg, 180.34 cm) [facility]: 12:02 Patient medically screened. [facility] 12:18 Data reviewed: vital signs, nurses notes, lab test result(s), EKG, radiologic studies, [facility] CT scan, plain films. 09/10 12:04 Order name: Basic Metabolic Panel [facility] 09/10 12:04 Order name: CBC with Diff; Complete Time: 14:24 [facility] 12 12:04 Order name: LFT's; Complete Time: 14:24 [facility] 12 12:04 Order name: Magnesium; Complete Time: 14:24 [facility] 12 12:04 Order name: NT PRO-BNP; Complete Time: 14:24 [facility] 12 12:04 Order name: PT-INR; Complete Time: 14:24 [facility] 12 12:04 Order name: Troponin (emerg Dept Use Only); Complete Time: 14:24 [facility] 12 12:04 Order name: XRAY Chest (1 view); Complete Time: 14:24 [facility] 12 12:04 Order name: Lipase; Complete Time: 14:24 [facility] 12 12:04 Order name: CT Abd/Pelvis - W/Contrast; Complete Time: 15:28 [facility] 12 12:04 Order name: Urine Culture [facility] 09/10 12:04 Order name: Basic Metabolic Panel; Complete Time: 14:24 EDMS 09/10 12:51 Order name: AMMONIA [facility] 09/10 13:31 Order name: Urine Dipstick--Ancillary (enter results); Complete Time: 15:58 bd 12 12:04 Order name: EKG; Complete Time: 12:05 [facility] 09/10 12:04 Order name: Cardiac monitoring; Complete Time: 12:44 [facility] 09/10 12:04 Order name: EKG - Nurse/Tech; Complete Time: 12:45 [facility] 09/10 12:04 Order name: IV Saline Lock; Complete Time: 12:45 [facility] 09/10 12:04 Order name: Labs collected and sent; Complete Time: 12:45 [facility] 09/10 12:04 Order name: O2 Per Protocol; Complete Time: 12:45 [facility] 09/10 12:04 Order name: O2 Sat Monitoring; Complete Time: 12:45 [facility] 09/10 12:04 Order name: Urine Dipstick-Ancillary (obtain specimen); Complete Time: 16:02 [facility] Administered Medications: 13:00 Drug: NS 0.9% 1000 ml Route: IV; Rate: 125 ml/hr; Site: right antecubital; ca1 13:08 Drug: morphine 4 mg Route: IVP; Site: right antecubital; ca1 16:21 Follow up: Response: No adverse reaction ca1 13:10 Drug: Zofran 4 mg Route: IVP; Site: right antecubital; ca1 13:14 Drug: Flagyl 500 mg Volume: 100 ml; Route: IVPB; Rate: 200 ml/hr; Infused Over: 30 ca1 mins; Site: right antecubital; 14:00 Drug: Cipro 400 mg Volume: 200 ml; Route: IVPB; Infused Over: 60 mins; Site: right ca1 antecubital; 14:35 Drug: Potassium Chloride 20 mEq Route: IV; Rate: per protocol; Site: right antecubital; ca1 16:21 Follow up: Response: No adverse reaction ca1 15:40 Drug: morphine 4 mg Route: IVP; Site: right antecubital; ca1 16:22 Follow up: Response: No adverse reaction ca1 18:56 Drug: morphine 4 mg Route: IVP; Site: right antecubital; aa5 18:58 Follow up: Response: No adverse reaction aa5 Disposition: 09/10/18 15:[address] [facility]. Diagnosis are Abdominal tenderness, Other intestinal obstruction - descending colon, Obesity, unspecified, Ascites - mallignant, carcinomatosis, Type 2 diabetes mellitus, Pleural effusion in conditions classified elsewhere, Hypokalemia. - Reason for transfer: Higher level of care. - Accepting physician is to [facility]. - Condition is Fair. - Problem is new. - Symptoms have improved. Signatures: Dispatcher [employer] Vernell Fitzgerald RN RN aj Anderson, Corey, MD MD cha Calderon, Audri, RN RN aa5 Candace Sotomayor RN RN ca1 Corrections: (The following items were deleted from the chart) 16:00 15:43 09/10/2018 15:[address] [facility]. Diagnosis is joao Abdominal tenderness; Other intestinal obstruction - descending colon; Obesity, unspecified; Ascites - mallignant, carcinomatosis; Type 2 diabetes mellitus. Reason for transfer: Higher level of care. Accepting physician is to [facility]. Condition is Fair. Problem is new. Symptoms have improved. [facility] 16:00 16:00 09/10/2018 15:[address] [facility]. Diagnosis is joao Abdominal tenderness; Other intestinal obstruction - descending colon; Obesity, unspecified; Ascites - mallignant, carcinomatosis; Type 2 diabetes mellitus; Pleural effusion in conditions classified elsewhere. Reason for transfer: Higher level of care. Accepting physician is to [facility]. Condition is Fair. Problem is new. Symptoms have improved. [facility] 19:02 16:00 09/10/2018 15:[address] [facility]. Diagnosis is aa5 Abdominal tenderness; Other intestinal obstruction - descending colon; Obesity, unspecified; Ascites - mallignant, carcinomatosis; Type 2 diabetes mellitus; Pleural effusion in conditions classified elsewhere; Hypokalemia. Reason for transfer: Higher level of care. Accepting physician is to [facility]. Condition is Fair. Problem is new. Symptoms have improved. [facility]
--- NOTE | 2018-09-10 15:44 | ER ---
Nurse's Notes [facility] Name: Shai Gonzalez Jr Age: 57 yrs Sex: Male : 1960 Arrival Date: 09/10/2018 Time: 11:46 Bed 2 Private MD: Trent Santiago H Diagnosis: Abdominal tenderness;Other intestinal obstruction-descending colon;Obesity, unspecified;Ascites-mallignant, carcinomatosis;Type 2 diabetes mellitus;Pleural effusion in conditions classified elsewhere;Hypokalemia Presentation: 09/10 11:56 Presenting complaint: Patient states: Lower abdominal pain and swelling for 2 days with aj increased gas. Patient reports BM on Tuesday that was hard. Transition of care: patient was not received from another setting of care. Onset of symptoms was September 08, 2018. Risk Assessment: Do you want to hurt yourself or someone else? Patient reports no desire to harm self or others. Initial Sepsis Screen: Does the patient meet any 2 criteria? No. Patient's initial sepsis screen is negative. Does the patient have a suspected source of infection? No. Patient's initial sepsis screen is negative. Care prior to arrival: None. 11:56 Method Of Arrival: Ambulatory aj 11:56 Acuity: MARIA INES 3 aj Triage Assessment: 11:59 General: Appears in no apparent distress. uncomfortable, Behavior is calm, cooperative, aj appropriate for age. Pain: Complains of pain in right lower quadrant and left lower quadrant. Neuro: Level of Consciousness is awake, alert, obeys commands, Oriented to person, place, time, situation, Appropriate for age. Respiratory: Airway is patent Respiratory effort is even, unlabored, Respiratory pattern is regular, symmetrical. GI: Abdomen is round distended, Reports lower abdominal pain, constipation. Derm: Skin is intact, is healthy with good turgor, Skin is pink, warm \\T\\ dry. normal. Historical: - Allergies: 11:59 No Known Allergies; aj - Home Meds: 11:59 amlodipine 10 mg tab 1 tab once daily [Active]; cyclobenzaprine 10 mg Oral tab 1 tab as aj needed [Active]; Lasix 20 mg Oral tab 1 tab 2 times per day [Active]; tolterodine 4 mg Oral cp24 1 cap once daily [Active]; tramadol 50 mg Oral tab 1 tab as needed [Active]; Hydrocodone-Acetaminophen Oral [Active]; - PMHx: 11:59 Asthma; Back pain; Diabetes - NIDDM; Gout; Hypertension; Colon Cancer; aj - PSHx: 11:59 Stent in bowel; aj - Immunization history:: Adult Immunizations up to date. - Social history:: Smoking status: Patient/guardian denies using tobacco. - Ebola Screening: : Patient negative for fever greater than or equal to 101.5 degrees Fahrenheit, and additional compatible Ebola Virus Disease symptoms Patient denies exposure to infectious person Patient denies travel to an Ebola-affected area in the 21 days before illness onset No symptoms or risks identified at this time. - Family history:: not pertinent. Screenin:00 Abuse screen: Denies threats or abuse. Nutritional screening: No deficits noted. ca1 Tuberculosis screening: No symptoms or risk factors identified. Fall Risk None identified. Assessment: 12:00 General: Appears in no apparent distress. uncomfortable, Behavior is calm, cooperative. ca1 12:00 Pain: Complains of pain in left lower quadrant and right lower quadrant Pain does not ca1 radiate. Pain currently is 10 out of 10 on a pain scale. Quality of pain is described as squeezing, Pain began 2-3 days ago. Is intermittent. Neuro: Level of Consciousness is awake, alert, obeys commands, Oriented to person, place, time. Cardiovascular: Heart tones S1 S2 present. Respiratory: Airway is patent Trachea midline Respiratory effort is even, labored, Respiratory pattern is regular, symmetrical, tachypnea Breath sounds are clear bilaterally. GI: Bowel sounds present X 4 quads. hyperactive in left upper quadrant and left lower quadrant Abdomen is tender to palpation in left lower quadrant and right lower quadrant Abd is rigid X 4 quads. Reports bloating, constipation, Patient states, "the pain gets worst when I feel the left side of my abdomen bubbling". : No signs and/or symptoms were reported regarding the genitourinary system. Derm: Skin is pink, warm \\T\\ dry. Musculoskeletal: Circulation, motion, and sensation intact. 13:00 Reassessment: Reassessment: Patient appears in no apparent distress at this time. No ca1 changes from previously documented assessment. Patient and/or family updated on plan of care and expected duration. Pain level reassessed. 14:02 Reassessment: Patient appears in no apparent distress at this time. Patient states, ca1 "feeling a little better, pain have subsided a little and is at a 6/10".. 15:14 Reassessment: Patient appears in no apparent distress at this time. Awaiting results ca1 and medications on going. . 16:03 Reassessment: Patient appears in no apparent distress at this time. Informed of ca1 transfer orders by . . 17:02 Reassessment: Patient appears in no apparent distress at this time. Patient is alert, ca1 oriented x 3, equal unlabored respirations, skin warm/dry/pink. Awaiting approval from receiving hospital. . Vital Signs: 11:59 BP 172 / 88; Pulse 94; Resp 24; Temp 98.1; Pulse Ox 97% on R/A; Weight 136.53 kg; aj Height 5 ft. 11 in. (180.34 cm); 12:53 BP 157 / 88; Pulse 100; Resp 28; Pulse Ox 96% on R/A; mh5 14:10 BP 136 / 73; Pulse 97; Resp 24; Pulse Ox 97% on R/A; ca1 15:05 BP 141 / 84; Pulse 98; Resp 24; Pulse Ox 96% on R/A; Pain 6/10; ca1 16:05 BP 127 / 76; Pulse 94; Resp 21 S; Pulse Ox 92% on R/A; Pain 5/10; ca1 17:03 BP 130 / 78; Pulse 90; Resp 25; Pulse Ox 97% on R/A; ca1 11:59 Body Mass Index 41.98 (136.53 kg, 180.34 cm) aj ED Course: 11:46 Patient arrived in ED. as 11:46 Trent Santiago DO is Private Physician. as 11:57 Triage completed. aj 11:59 Arm band placed on right wrist. Patient placed in an exam room. aj 12:00 Patient has correct armband on for positive identification. Placed in gown. Bed in low ca1 position. Call light in reach. Side rails up X 1. Adult w/ patient. labeler on. Pulse ox on. NIBP on. 12:00 Initial lab(s) drawn, sent to lab. by Meagan Patel RN. Inserted saline lock: 20 ca1 gauge in right antecubital area, using aseptic technique. Blood collected. 12:02 Deondre Quijano MD is Attending Physician. joao 12:33 X-ray completed. Portable x-ray completed in exam room. Patient tolerated procedure la2 well. 12:43 XRAY Chest (1 view) In Process Unspecified. EDMS 12:44 Candace Sotomayor RN is Primary Nurse. ca1 12:52 EKG done, by ED staff, reviewed by Deondre Quijano MD. 5 14:23 CT Abd/Pelvis - W/Contrast In Process Unspecified. EDMS 14:23 CT completed. Patient tolerated procedure well. Patient moved back from CT. 18:59 No provider procedures requiring assistance completed. Patient transferred, IV remains aa5 in place. Administered Medications: 13:00 Drug: NS 0.9% 1000 ml Route: IV; Rate: 125 ml/hr; Site: right antecubital; ca1 13:08 Drug: morphine 4 mg Route: IVP; Site: right antecubital; ca1 16:21 Follow up: Response: No adverse reaction ca1 13:10 Drug: Zofran 4 mg Route: IVP; Site: right antecubital; ca1 13:14 Drug: Flagyl 500 mg Volume: 100 ml; Route: IVPB; Rate: 200 ml/hr; Infused Over: 30 ca1 mins; Site: right antecubital; 14:00 Drug: Cipro 400 mg Volume: 200 ml; Route: IVPB; Infused Over: 60 mins; Site: right ca1 antecubital; 14:35 Drug: Potassium Chloride 20 mEq Route: IV; Rate: per protocol; Site: right antecubital; ca1 16:21 Follow up: Response: No adverse reaction ca1 15:40 Drug: morphine 4 mg Route: IVP; Site: right antecubital; ca1 16:22 Follow up: Response: No adverse reaction ca1 18:56 Drug: morphine 4 mg Route: IVP; Site: right antecubital; aa5 18:58 Follow up: Response: No adverse reaction aa5 Outcome: 15:43 ER care complete, transfer ordered by . [facility] 18:59 Transferred to [facility], Transfer form completed. X-rays sent w/ aa5 patient. Note: Report given to [facility]. Report given by Candace Sotomayor RN to Candace Case RN (at [facility]) 18:59 Condition: stable 18:59 Instructed on the need for transfer, Demonstrated understanding of instructions. 19:02 Patient left the ED. 5 Signatures: Dispatcher [employer] Vernell Fitzgerald, RN RN Deondre Chow MD MD cha Hagler, Ml Velazquez Audri, JUAN M RN Ching Denney [facility] Yanni Moise la2 Candace Sotomayor RN RN ca1 Corrections: (The following items were deleted from the chart) 14:30 12:53 Patient has correct armband on for positive identification. Placed in gown. Bed ca1 in low position. Call light in reach. Side rails up X 1. Adult w/ patient. [facility] 14:30 12:53 labeler on. Pulse ox on. NIBP on. [place] [id number] 15:28 15:13 Reassessment: [place] [id number]
[2018-09-10 19:53] VITALS: TEMP 98.1
[2018-09-10 20:00] VITALS: BP 130/78; O2SAT 97
--- NOTE | 2018-09-11 07:12 | EKG ---
Test Date: 2018-09-10 Test Time: 12:49:53 Cabinet Installer: KANWAL MEASUREMENT RESULTS: Intervals: Rate: 98 [place]: 164 QRSD: 82 QT: 364 QTc: [address] [place]: P: 49 [place]: 164 QRS: 23 T: 173 INTERPRETIVE STATEMENTS: Sinus rhythm with premature atrial complexes T wave abnormality, consider lateral ischemia Prolonged QT Abnormal ECG Compared to ECG 07/14/2018 15:25:14 Atrial premature complex(es) now present Prolonged QT interval now present T-wave abnormality still present Possible ischemia still present Electronically Signed On 09-11-18 07:11:00 ANESTHESIOLOGIST/PHYSICIAN by Slick Velásquez
== END 2018-09-10 19:02 | disposition short-term general hospital (02) ==
LOC: ER 11:43
DX: K56.609 Unspecified intestinal obstruction, unspecified as to partial versus complete obstruction (principal); R18.0 Malignant ascites; C48.1 Malignant neoplasm of specified parts of peritoneum; E87.6 Hypokalemia; J91.8 Pleural effusion in other conditions classified elsewhere; E11.9 Type 2 diabetes mellitus without complications; E66.9 Obesity, unspecified; I10 Essential (primary) hypertension
CPT/HCPCS: 36415; 71045; 74177; 80048; 80076; 81003; 82140; 83690; 83735; 83880; 84484; 85025; 85610; 87086; 87088; 93005; 96374; 96375; 99285; J0744; J2405; J7030; Q9967

== ENCOUNTER 2019-05-07 20:37 | Emergency (ER) | payer OTHER ==
--- OUTSIDE RECORDS SUMMARY | 2019-05-07 20:41 | XMS REPORT | Clinical Summary ---
:1960 Author Organization [facility] Address [address] [place] [address] Care Team Providers Name Role Phone Pcp, No Primary Care Provider Unavailable Allergies No Known Allergies Medications Medication Sig Dispensed Refills Start Date End Date Status amLODIPine (NORVASC) Take 10 mg by 0 Active 10 MG tablet mouth daily. acetaminophen-codein Take 1 tablet 0 Active e (TYLENOL #3) by mouth 2 300-30 mg per tablet (two) times daily as needed for Pain. HYDROcodone-acetamin Take 1 tablet 0 Active ophen (NORCO 10-325) by mouth every 10-325 mg per tablet 6 (six) hours as needed for Pain. cyclobenzaprine Take 10 mg by 0 Active (FLEXERIL) 10 MG mouth 3 tablet (three) times daily as needed for Muscle spasms. carvedilol (COREG) Take 1 tablet 180 tablet 3 09/13/2018 Active 12.5 MG tablet (12.5 mg 9 total) by mouth 2 (two) times daily with breakfast and dinner. lisinopril Take 20 mg by 0 Discontinued (PRINIVIL,ZESTRIL) mouth daily 1 8 20 MG tablet tab by mouth daily . carvedilol (COREG) Take 3.125 mg 0 Discontinued 3.125 MG tablet by mouth 2 8 (two) times daily with breakfast and dinner. glimepiride (AMARYL) Take 2 mg by 0 Discontinued 2 MG tablet mouth 2 (two) 8 times daily. carvedilol (COREG) Take 2 tablets 120 tablet 0 07/20/2018 Discontinued 3.125 MG tablet (6.25 mg 8 total) by mouth 2 (two) times daily [...] 10 days. Max Daily Amount: 6 tablets spironolactone Take 50 mg by 0 Discontinued (ALDACTONE) 50 MG mouth 2 (two) 8 tablet times daily. morphine (MS CONTIN) Take 15 mg by 0 Discontinued 15 MG 12 hr tablet mouth every 12 8 (twelve) hours. senna-docusate Take 1 tablet 0 Discontinued (SENOKOT S) 8.6-50 by mouth 8 mg per tablet daily. polyethylene glycol Take 17 g by 1020 g 0 09/13/2018 (GLYCOLAX) 17 gram mouth 2 (two) 9 packet times daily for 30 days. Active Problems Problem Noted Date Colon adenocarcinoma 09/10/2018 Benign prostatic hyperplasia 07/16/2018 Diabetes mellitus 07/16/2018 Essential hypertension 07/16/2018 Descending colon CA s/p GI stent 07/15/18 07/16/2018 Large bowel obstruction 07/16/2018 Hypokalemia 07/16/2018 Morbid obesity 07/15/2018 Pneumonia 07/14/2018 History of gout 01/11/2018 Adrenal mass, left 01/18/2017 Encounters Date Type Specialty Care Team Description 04/11/2019 Hospital Computed Tomography Mary, Colon cancer Encounter Kyle Perdomo, metastasized to multiple sites (HCC) 1, [facility] Room 04/11/2019 Hospital Computed Tomography Mary, Colon cancer Encounter Kyle Perdomo, metastasized to MD multiple sites (HCC) 1, [facility] Room 04/09/2019 Outside Orders Central Scheduling Mary Colon cancer Kyle Perdomo, metastasized to multiple sites (HCC) (Primary Dx) 12/25/2018 Hospital Computed Tomography Musher, Malignant neoplasm Encounter eboni Garcia MD unspecified part of 1, [facility] colon (HCC) [facility] Room 12/18/2018 Outside Orders Central Scheduling Mary, Malignant neoplasm eboni Garcia MD unspecified part of colon (HCC) (Primary Dx) 09/11/2018 Surgery Gastroenterology Shiva Cordova COLONOSCOPY MD Naomi 09/11/2018 Anesthesia Event Gastroenterology Jazmin Munoz, JOURNEYMAN PRESS OPERATOR 09/10/2018 [facility] Internal [facility], Large bowel obstruction (HCC ) (Primary Dx); - Encounter Medicine Renato Gage Colonic mass; 09/13/2018 MD DEBRA Type 2 diabetes mellitus with complication, without long-term current use of insulin (HCC); Changela, Essential hypertension MD Valentino Loyd, MD Cody 09/10/2018 Travel 09/10/2018 [facility] Internal Medicine Aftab, Encounter Ishaan Garcia MD 07/18/2018 Surgery Gastroenterology Julius Umanzor COLONOSCOPY MD Ron 07/18/2018 Anesthesia Event Gastroenterology Ishaan Mcmullen MD 07/15/2018 Anesthesia Event Kimberlyn Mehta, JOURNEYMAN PRESS OPERATOR 07/15/2018 Anesthesia Event Gastroenterology Kimberlyn Mehta, JOURNEYMAN PRESS OPERATOR 07/15/2018 Surgery Gastroenterology Shiva Cordova COLONOSCOPY,FLUOROSC MD Naomi OPIC STENT PLACEMENT 07/14/2018 [facility], Colon carcinoma metastatic to multiple sites (HCC); - Encounter Medicine Isis Bentley MD Morbid obesity (HCC); 07/20/2018 Tam, Preoperative cardiovascular examination; Jessi Essential hypertension; MD Heather Alcohol abuse; Colonic mass; Type 2 diabetes mellitus with complication, without long-term current use of insulin (HCC); Hypokalemia; Large bowel obstruction (HCC) 07/14/2018 Orders Only General Internal Medicine after 05/06/2018 Immunizations Name Dates Previously Given Next Due [...] Vital Sign Reading Time Taken Blood Pressure 139/75 09/13/2018 11:50 AM [facility] Pulse 86 09/13/2018 11:50 AM [facility] Temperature 37.4 C (99.4 F) 09/13/2018 11:50 AM [facility] Respiratory Rate 18 09/13/2018 11:50 AM [facility] Oxygen Saturation 93% 09/13/2018 11:50 AM [facility] Inhaled Oxygen Concentration 21% 09/12/2018 12:32 AM [facility] Weight 143.1 kg (315 lb 6.4 oz) 09/10/2018 8:13 PM [facility] Height 180.3 cm (5' 11") 09/10/2018 8:13 PM [facility] Body Mass Index 43.99 09/10/2018 8:13 PM [facility] Plan of Treatment Not on file Implants Implanted Type Area Sampler And Test Preparer Device Shelf Model / Serial / Identifier Expiration Lot Date Stent Colonic Single [id number] - [id number] Stents- N/A: [employer] 06/27/2019 [id number] / Implanted: Qty: 1 on 07/15/2018 by Shiva Cordova MD Periphe Colon / ral [id number] Wallflex Colonic Stent [id number] [employer] 10/25/2019 GTIN [id number] / Implanted: Qty: 1 on 09/11/2018 by Shiva Cordova MD SCIENTIFIC [id number] / [id number] Procedures Procedure Name Priority Date/Time Associated Comments Diagnosis CT CHEST WITH IV Routine 04/11/2019 9:52 Colon cancer Results for this CONTRAST AM CDT metastasized to procedure are in multiple sites the results (HCC) section. CT ABDOMEN/PELVIS WITH Routine 04/11/2019 9:52 Colon cancer Results for this IV CONTRAST AM CDT metastasized to procedure are in multiple sites the results (HCC) section. CT PELVIS WITH IV Routine 12/25/2018 12:22 Results for this CONTRAST PM CDT procedure are in the results section. CT ABDOMEN WITH/WITHOUT Routine 12/25/2018 12:22 Results for this CONTRAST PM CDT procedure are in the results section. CT CHEST WITH IV Routine 12/25/2018 9:50 Malignant neoplasm Results for this CONTRAST AM CDT of colon, procedure are in unspecified part of the results colon (HCC) section. POCT-CREATININE Routine 12/25/2018 8:52 Results for this AM CDT procedure are in the results section. REPORT OF PROCEDURE - 09/20/2018 7:50 ENDOSCOPY SCAN AM [facility] RHYTHM STRIP - SCAN 09/20/2018 7:50 AM [facility] POCT-GLUCOSE METER Routine 09/13/2018 12:33 Results for this PM [facility] procedure are in the results section. POCT-GLUCOSE METER Routine 09/13/2018 7:48 Results for this AM [facility] procedure are in the results section. CBC W/PLT COUNT & AUTO Routine 09/13/2018 6:08 Results for this DIFFERENTIAL AM [facility] procedure are in the results section. MAGNESIUM STAT 09/13/2018 6:08 Results for this AM [facility] procedure are in the results section. CARCINOEMBRYONIC ANTIGEN Routine 09/13/2018 6:08 Results for this (CEA) AM [facility] procedure are in the results section. HEPATIC FUNCTION PANEL Routine 09/13/2018 6:08 Results for this AM [facility] procedure are in the results section. CBC W/PLT COUNT & AUTO Routine 09/13/2018 6:08 Results for this DIFFERENTIAL AM [facility] procedure are in the results section. BASIC METABOLIC PANEL Routine 09/13/2018 6:08 Results for this (7) AM [facility] procedure are in the results section. POCT-GLUCOSE METER Routine 09/13/2018 12:58 Results for this AM [facility] procedure are in the results section. POCT-GLUCOSE METER Routine 09/12/2018 5:34 Results for this PM [facility] procedure are in the results section. POCT-GLUCOSE METER Routine 09/12/2018 12:20 Results for this PM [facility] procedure are in the results section. POCT-GLUCOSE METER Routine 09/12/2018 7:18 Results for this AM [facility] procedure are in the results section. CBC W/PLT COUNT & AUTO Routine 09/12/2018 5:41 Results for this DIFFERENTIAL AM [facility] procedure are in the results section. MAGNESIUM STAT 09/12/2018 5:41 Results for this AM [facility] procedure are in the results section. CBC W/PLT COUNT & AUTO Routine 09/12/2018 5:41 Results for this DIFFERENTIAL AM [facility] procedure are in the results section. BASIC METABOLIC PANEL Routine 09/12/2018 5:41 Results for this (7) AM [facility] procedure are in the results section. POCT-GLUCOSE METER Routine 09/12/2018 12:27 Results for this AM [facility] procedure are in the results section. POCT-GLUCOSE METER Routine 09/11/2018 6:30 Results for this PM [facility] procedure are in the results section. REPORT OF PROCEDURE - 09/11/2018 6:00 ENDOSCOPY URL PM [facility] PROCEDURE W/ C-ARM 09/11/2018 6:00 Colonic obstruction PM [facility] (HCC) Special Needs Colonoscopy w/ anes COLONOSCOPY 09/11/2018 6:00 PM [facility] Colonic obstruction (HCC) Special Needs Colonoscopy w/ anes FL SYSTEMS INTEGRATION ENGINEER IN OR 30 Routine 09/11/2018 5:50 Results for this MINUTE INCREMENTS PM [facility] procedure are in the results section. POCT-GLUCOSE METER Routine 09/11/2018 12:05 Results for this PM [facility] procedure are in the results section. POCT-GLUCOSE METER Routine 09/11/2018 6:31 Results for this AM [facility] procedure are in the results section. CBC W/PLT COUNT & AUTO Routine 09/11/2018 5:34 Results for this DIFFERENTIAL AM [facility] procedure are in the results section. PHOSPHORUS STAT 09/11/2018 5:34 Results for this AM [facility] procedure are in the results section. MAGNESIUM STAT 09/11/2018 5:34 Results for this AM [facility] procedure are in the results section. CBC W/PLT COUNT & AUTO Routine 09/11/2018 5:34 Results for this DIFFERENTIAL AM [facility] procedure are in the results section. BASIC METABOLIC PANEL Routine 09/11/2018 5:34 Results for this (7) AM [facility] procedure are in the results section. POCT-GLUCOSE METER Routine 09/11/2018 1:33 Results for this AM [facility] procedure are in the results section. RHYTHM STRIP - SCAN 07/21/2018 11:00 AM [...] procedure are in the results section. FL SYSTEMS INTEGRATION ENGINEER IN OR 30 Routine 07/15/2018 2:18 Results [...] Colon obstruction AM CDT (HCC) Case Notes COPPER MINER BLASTING CASE IN OR WITH FLUORO COLONOSCOPY,FLUOROSCOPIC STENT 07/15/2018 11:32 AM Colon obstruction (HCC) PLACEMENT CDT Case Notes COPPER MINER BLASTING CASE IN OR WITH FLUORO TYPE AND [...] 364 ms QTC Calculation(Bazett) 435 ms P Butler 57 degrees R Butler 35 degrees T Butler 178 degrees Sinus rhythm with Premature atrial [...] 362 ms QTC Calculation(Bazett) 438 ms P Butler 66 degrees R Butler 39 degrees T Butler 127 degrees Sinus rhythm with Premature atrial [...] [facility] Routine 07/14/2018 10:29 PM CDT after 05/06/[address] Abdomen/Pelvis with IV Contrast (04/11/2019 9:52 AM CDT)Only the most recent of2 resultswithin the time period is included. Specimen Narrative Performed At FINAL REPORT [facility] EXAM: CT Chest, Abdomen and Pelvis WITH contrast INDICATION: Colon [id number] COMPARISON: 12/25/2018, 10/05/2018, 07/17/2018 TECHNIQUE: Chest, abdomen and pelvis were scanned utilizing a multidetector helical scanner from the lung apex to the pubic symphysis after administration of IV contrast. Coronal and sagittal reformations were obtained. Routine protocol was performed. Scan was performed when during portal venous phase. IV CONTRAST: 100 mL of Isovue-300 ORAL CONTRAST: None COMPLICATIONS: None RADIATION DOSE: Total DLP: 1501.52 mGy*cm Estimated effective dose: (DLP x 0.015 x size factor) mSv CTDIvol has been reviewed. It is below the limits set by the Radiation Protocol Committee (RPC). Dose reduction techniques used: Automated exposure control, adjustment of the mAs and/or kVp according to patient size, standardized low-dose protocol, and/or iterative reconstruction technique. FINDINGS: LINES and TUBES: Right chest port with catheter extending to the mid SVC. LUNGS AND AIRWAYS:Multiple pulmonary nodules are again seen (series 2): Right: Lower lobe abutting the major fissure, 2 mm (previous 5 mm), image 48 Lower lobe abutting the major fissure, 3 mm (previous punctate), image 54 Upper lobe abutting the minor fissure, 1 to 2 mm (previous 1 to 2 mm), image 57 Other punctate nodules previously described in the right middle lobe are no longer identified. Left: No discrete masses are seen. No new masses are seen in either lung. Trachea and main bronchi are clear. PLEURA: Decrease of the previous small right pleural effusion which is now minimal. No left effusion. No pneumothorax. HEART AND MEDIASTINUM: The thyroid gland is normal.No mediastinal, hilar or axillary lymphadenopathy.The heart is normal in size. There is no pericardial effusion.Thoracic aorta is atherosclerotic with minimal scattered calcified plaque. There is no dilatation of the thoracic aorta or main pulmonary artery. HEPATOBILIARY: Previously noted 1.0 cm enhancing lesion in the right lobe of the liver is only faintly seen, likely due to differences in bolus timing. Size is unchanged. No new liver lesions are seen. No intrahepatic bile duct dilatation. GALLBLADDER: No radio-opaque stones or sludge.No wall thickening. SPLEEN: No splenomegaly. Ill-defined areas of hypodensity at the medial aspect of the spleen are unchanged. PANCREAS: No focal masses or ductal dilatation. ADRENALS: Left adrenal nodule measuring 3.6 x 2.8 cm is unchanged in appearance. Precise characterization not possible on postcontrast only imaging. KIDNEYS/URETERS: Kidneys enhance symmetrically.No hydronephrosis. No cystic or solid mass lesions.No stones. GI TRACT: No abnormal distention, wall thickening, or evidence of bowel obstruction.Again noted is a stent in the mid descending colon. There is stable mild wall thickening of the colon surrounding the stent. There are no inflammatory findings.Appendix is not well seen but thought to be visualized and unremarkable. PELVIC ORGANS/BLADDER: Urinary bladder has an unremarkable appearance. No discrete abnormal mass or fluid collection in the pelvis. LYMPH NODES: No dominant lymph node mass is seen in the abdomen, retroperitoneum or pelvis. Again noted is an aortocaval node measuring 0.6 cm (previous 0.6 cm), image 76. Cardiophrenic node on the right measures 0.5 cm (previous 0.9 cm), image 46. VESSELS: The abdominal aorta is atherosclerotic but scattered calcified plaque. No aneurysm. IVC and portal system appear unremarkable. PERITONEUM / RETROPERITONEUM: No pneumoperitoneum or ascites. Previous area of omental thickening in the left anterior abdomen now measures 0.9 cm thickness (previous 1.8 cm). BONES: No acute or suspicious bone lesions. Degenerative changes in the spine. SOFT TISSUES: Superficial surrounding soft tissue unremarkable. IMPRESSION: 1.Multiple small pulmonary nodules are stable or decreased in size since previous exam. A single 3 mm nodule in the right, abutting the major fissure and possibly representing a subpleural node, is very slightly larger than on the previous exam. Continued attention on follow-up CT suggested. 2.Generally positive response to treatment. Previous small right pleural effusion has diminished and become minimal. Cardiophrenic lymph node on the right and focal area of peritoneal thickening on the left have diminished since previous exam. Small retroperitoneal lymph node is stable. 3.1.0 cm enhancing nodule in the right lobe of the liver is only faintly seen, likely due to differences in bolus timing, but unchanged in size. No new liver masses. 4.Stable appearing stent in the descending colon. 5.Faint area of heterogeneous hypodensity in the medial aspect of the spleen is unchanged. Left adrenal nodule is unchanged. Signed: Asa Menjivar MD Report Verified Date/Time:04/17/2019 09:11:14 Procedure Note Interface, External Ris In - 04/17/2019 9:13 AM CDT FINAL REPORT EXAM: CT Chest, Abdomen and Pelvis WITH contrast INDICATION: Colon cancer C18.9 COMPARISON: 12/25/2018, 10/05/2018, 07/17/2018 TECHNIQUE: Chest, abdomen and pelvis were scanned utilizing a multidetector helical scanner from the lung apex to the pubic symphysis after administration of IV contrast. Coronal and sagittal reformations were obtained. Routine protocol was performed. Scan was performed when during portal venous phase. IV CONTRAST: 100 mL of Isovue-300 ORAL CONTRAST: None COMPLICATIONS: None RADIATION DOSE: Total DLP: 1501.52 mGy*cm Estimated effective dose: (DLP x 0.015 x size factor) mSv CTDIvol has been reviewed. It is below the limits set by the Radiation Protocol Committee (RPC). Dose reduction techniques used: Automated exposure control, adjustment of the mAs and/or kVp according to patient size, standardized low-dose protocol, and/or iterative reconstruction technique. FINDINGS: LINES and TUBES: Right chest port with catheter extending to the mid SVC. LUNGS AND AIRWAYS: Multiple pulmonary nodules are again seen (series 2): Right: Lower lobe abutting the major fissure, 2 mm (previous 5 mm), image 48 Lower lobe abutting the major fissure, 3 mm (previous punctate), image 54 Upper lobe abutting the minor fissure, 1 to 2 mm (previous 1 to 2 mm), image 57 Other punctate nodules previously described in the right middle lobe are no longer identified. Left: No discrete masses are seen. No new masses are seen in either lung. Trachea and main bronchi are clear. PLEURA: Decrease of the previous small right pleural effusion which is now minimal. No left effusion. No pneumothorax. HEART AND MEDIASTINUM: The thyroid gland is normal. No mediastinal, hilar or axillary lymphadenopathy. The heart is normal in size. There is no pericardial effusion. Thoracic aorta is atherosclerotic with minimal scattered calcified plaque. There is no dilatation of the thoracic aorta or main pulmonary artery. HEPATOBILIARY: Previously noted 1.0 cm enhancing lesion in the right lobe of the liver is only faintly seen, likely due to differences in bolus timing. Size is unchanged. No new liver lesions are seen. No intrahepatic bile duct dilatation. GALLBLADDER: No radio-opaque stones or sludge. No wall thickening. SPLEEN: No splenomegaly. Ill-defined areas of hypodensity at the medial aspect of the spleen are unchanged. PANCREAS: No focal masses or ductal dilatation. ADRENALS: Left adrenal nodule measuring 3.6 x 2.8 cm is unchanged in appearance. Precise characterization not possible on postcontrast only imaging. KIDNEYS/URETERS: Kidneys enhance symmetrically. No hydronephrosis. No cystic or solid mass lesions. No stones. GI TRACT: No abnormal distention, wall thickening, or evidence of bowel obstruction. Again noted is a stent in the mid descending colon. There is stable mild wall thickening of the colon surrounding the stent. There are no inflammatory findings. Appendix is not well seen but thought to be visualized and unremarkable. PELVIC ORGANS/BLADDER: Urinary bladder has an unremarkable appearance. No discrete abnormal mass or fluid collection in the pelvis. LYMPH NODES: No dominant lymph node mass is seen in the abdomen, retroperitoneum or pelvis. Again noted is an aortocaval node measuring 0.6 cm (previous 0.6 cm), image 76. Cardiophrenic node on the right measures 0.5 cm (previous 0.9 cm), image 46. VESSELS: The abdominal aorta is atherosclerotic but scattered calcified plaque. No aneurysm. IVC and portal system appear unremarkable. PERITONEUM / RETROPERITONEUM: No pneumoperitoneum or ascites. Previous area of omental thickening in the left anterior abdomen now measures 0.9 cm thickness (previous 1.8 cm). BONES: No acute or suspicious bone lesions. Degenerative changes in the spine. SOFT TISSUES: Superficial surrounding soft tissue unremarkable. IMPRESSION: 1.Multiple small pulmonary nodules are stable or decreased in size since previous exam. A single 3 mm nodule in the right, abutting the major fissure and possibly representing a subpleural node, is very slightly larger than on the previous exam. Continued attention on follow-up CT suggested. 2.Generally positive response to treatment. Previous small right pleural effusion has diminished and become minimal. Cardiophrenic lymph node on the right and focal area of peritoneal thickening on the left have diminished since previous exam. Small retroperitoneal lymph node is stable. 3.1.0 cm enhancing nodule in the right lobe of the liver is only faintly seen, likely due to differences in bolus timing, but unchanged in size. No new liver masses. 4.Stable appearing stent in the descending colon. 5.Faint area of heterogeneous hypodensity in the medial aspect of the spleen is unchanged. Left adrenal nodule is unchanged. Signed: Asa Menjivar MD Report Verified Date/Time: 04/17/2019 09:11:14 Performing Organization Address City/State/Zipcode Phone Number [facility] CT Chest with IV Contrast (04/11/2019 9:52 AM CDT)Only the most recent of3 resultswithin the time period is included. Specimen Narrative Performed At FINAL REPORT [facility] EXAM: CT Chest, Abdomen and Pelvis WITH contrast INDICATION: Colon [id number] COMPARISON: 12/25/2018, 10/05/2018, 07/17/2018 TECHNIQUE: Chest, abdomen and pelvis were scanned utilizing a multidetector helical scanner from the lung apex to the pubic symphysis after administration of IV contrast. Coronal and sagittal reformations were obtained. Routine protocol was performed. Scan was performed when during portal venous phase. IV CONTRAST: 100 mL of Isovue-300 ORAL CONTRAST: None COMPLICATIONS: None RADIATION DOSE: Total DLP: 1501.52 mGy*cm Estimated effective dose: (DLP x 0.015 x size factor) mSv CTDIvol has been reviewed. It is below the limits set by the Radiation Protocol Committee (RPC). Dose reduction techniques used: Automated exposure control, adjustment of the mAs and/or kVp according to patient size, standardized low-dose protocol, and/or iterative reconstruction technique. FINDINGS: LINES and TUBES: Right chest port with catheter extending to the mid SVC. LUNGS AND AIRWAYS:Multiple pulmonary nodules are again seen (series 2): Right: Lower lobe abutting the major fissure, 2 mm (previous 5 mm), image 48 Lower lobe abutting the major fissure, 3 mm (previous punctate), image 54 Upper lobe abutting the minor fissure, 1 to 2 mm (previous 1 to 2 mm), image 57 Other punctate nodules previously described in the right middle lobe are no longer identified. Left: No discrete masses are seen. No new masses are seen in either lung. Trachea and main bronchi are clear. PLEURA: Decrease of the previous small right pleural effusion which is now minimal. No left effusion. No pneumothorax. HEART AND MEDIASTINUM: The thyroid gland is normal.No mediastinal, hilar or axillary lymphadenopathy.The heart is normal in size. There is no pericardial effusion.Thoracic aorta is atherosclerotic with minimal scattered calcified plaque. There is no dilatation of the thoracic aorta or main pulmonary artery. HEPATOBILIARY: Previously noted 1.0 cm enhancing lesion in the right lobe of the liver is only faintly seen, likely due to differences in bolus timing. Size is unchanged. No new liver lesions are seen. No intrahepatic bile duct dilatation. GALLBLADDER: No radio-opaque stones or sludge.No wall thickening. SPLEEN: No splenomegaly. Ill-defined areas of hypodensity at the medial aspect of the spleen are unchanged. PANCREAS: No focal masses or ductal dilatation. ADRENALS: Left adrenal nodule measuring 3.6 x 2.8 cm is unchanged in appearance. Precise characterization not possible on postcontrast only imaging. KIDNEYS/URETERS: Kidneys enhance symmetrically.No hydronephrosis. No cystic or solid mass lesions.No stones. GI TRACT: No abnormal distention, wall thickening, or evidence of bowel obstruction.Again noted is a stent in the mid descending colon. There is stable mild wall thickening of the colon surrounding the stent. There are no inflammatory findings.Appendix is not well seen but thought to be visualized and unremarkable. PELVIC ORGANS/BLADDER: Urinary bladder has an unremarkable appearance. No discrete abnormal mass or fluid collection in the pelvis. LYMPH NODES: No dominant lymph node mass is seen in the abdomen, retroperitoneum or pelvis. Again noted is an aortocaval node measuring 0.6 cm (previous 0.6 cm), image 76. Cardiophrenic node on the right measures 0.5 cm (previous 0.9 cm), image 46. VESSELS: The abdominal aorta is atherosclerotic but scattered calcified plaque. No aneurysm. IVC and portal system appear unremarkable. PERITONEUM / RETROPERITONEUM: No pneumoperitoneum or ascites. Previous area of omental thickening in the left anterior abdomen now measures 0.9 cm thickness (previous 1.8 cm). BONES: No acute or suspicious bone lesions. Degenerative changes in the spine. SOFT TISSUES: Superficial surrounding soft tissue unremarkable. IMPRESSION: 1.Multiple small pulmonary nodules are stable or decreased in size since previous exam. A single 3 mm nodule in the right, abutting the major fissure and possibly representing a subpleural node, is very slightly larger than on the previous exam. Continued attention on follow-up CT suggested. 2.Generally positive response to treatment. Previous small right pleural effusion has diminished and become minimal. Cardiophrenic lymph node on the right and focal area of peritoneal thickening on the left have diminished since previous exam. Small retroperitoneal lymph node is stable. 3.1.0 cm enhancing nodule in the right lobe of the liver is only faintly seen, likely due to differences in bolus timing, but unchanged in size. No new liver masses. 4.Stable appearing stent in the descending colon. 5.Faint area of heterogeneous hypodensity in the medial aspect of the spleen is unchanged. Left adrenal nodule is unchanged. Signed: Asa Menjivar MD Report Verified Date/Time:04/17/2019 09:11:14 Procedure Note Interface, External Ris In - 04/17/2019 9:13 AM CDT FINAL REPORT EXAM: CT Chest, Abdomen and Pelvis WITH contrast INDICATION: Colon cancer C18.9 COMPARISON: 12/25/2018, 10/05/2018, 07/17/2018 TECHNIQUE: Chest, abdomen and pelvis were scanned utilizing a multidetector helical scanner from the lung apex to the pubic symphysis after administration of IV contrast. Coronal and sagittal reformations were obtained. Routine protocol was performed. Scan was performed when during portal venous phase. IV CONTRAST: 100 mL of Isovue-300 ORAL CONTRAST: None COMPLICATIONS: None RADIATION DOSE: Total DLP: 1501.52 mGy*cm Estimated effective dose: (DLP x 0.015 x size factor) mSv CTDIvol has been reviewed. It is below the limits set by the Radiation Protocol Committee (RPC). Dose reduction techniques used: Automated exposure control, adjustment of the mAs and/or kVp according to patient size, standardized low-dose protocol, and/or iterative reconstruction technique. FINDINGS: LINES and TUBES: Right chest port with catheter extending to the mid SVC. LUNGS AND AIRWAYS: Multiple pulmonary nodules are again seen (series 2): Right: Lower lobe abutting the major fissure, 2 mm (previous 5 mm), image 48 Lower lobe abutting the major fissure, 3 mm (previous punctate), image 54 Upper lobe abutting the minor fissure, 1 to 2 mm (previous 1 to 2 mm), image 57 Other punctate nodules previously described in the right middle lobe are no longer identified. Left: No discrete masses are seen. No new masses are seen in either lung. Trachea and main bronchi are clear. PLEURA: Decrease of the previous small right pleural effusion which is now minimal. No left effusion. No pneumothorax. HEART AND MEDIASTINUM: The thyroid gland is normal. No mediastinal, hilar or axillary lymphadenopathy. The heart is normal in size. There is no pericardial effusion. Thoracic aorta is atherosclerotic with minimal scattered calcified plaque. There is no dilatation of the thoracic aorta or main pulmonary artery. HEPATOBILIARY: Previously noted 1.0 cm enhancing lesion in the right lobe of the liver is only faintly seen, likely due to differences in bolus timing. Size is unchanged. No new liver lesions are seen. No intrahepatic bile duct dilatation. GALLBLADDER: No radio-opaque stones or sludge. No wall thickening. SPLEEN: No splenomegaly. Ill-defined areas of hypodensity at the medial aspect of the spleen are unchanged. PANCREAS: No focal masses or ductal dilatation. ADRENALS: Left adrenal nodule measuring 3.6 x 2.8 cm is unchanged in appearance. Precise characterization not possible on postcontrast only imaging. KIDNEYS/URETERS: Kidneys enhance symmetrically. No hydronephrosis. No cystic or solid mass lesions. No stones. GI TRACT: No abnormal distention, wall thickening, or evidence of bowel obstruction. Again noted is a stent in the mid descending colon. There is stable mild wall thickening of the colon surrounding the stent. There are no inflammatory findings. Appendix is not well seen but thought to be visualized and unremarkable. PELVIC ORGANS/BLADDER: Urinary bladder has an unremarkable appearance. No discrete abnormal mass or fluid collection in the pelvis. LYMPH NODES: No dominant lymph node mass is seen in the abdomen, retroperitoneum or pelvis. Again noted is an aortocaval node measuring 0.6 cm (previous 0.6 cm), image 76. Cardiophrenic node on the right measures 0.5 cm (previous 0.9 cm), image 46. VESSELS: The abdominal aorta is atherosclerotic but scattered calcified plaque. No aneurysm. IVC and portal system appear unremarkable. PERITONEUM / RETROPERITONEUM: No pneumoperitoneum or ascites. Previous area of omental thickening in the left anterior abdomen now measures 0.9 cm thickness (previous 1.8 cm). BONES: No acute or suspicious bone lesions. Degenerative changes in the spine. SOFT TISSUES: Superficial surrounding soft tissue unremarkable. IMPRESSION: 1.Multiple small pulmonary nodules are stable or decreased in size since previous exam. A single 3 mm nodule in the right, abutting the major fissure and possibly representing a subpleural node, is very slightly larger than on the previous exam. Continued attention on follow-up CT suggested. 2.Generally positive response to treatment. Previous small right pleural effusion has diminished and become minimal. Cardiophrenic lymph node on the right and focal area of peritoneal thickening on the left have diminished since previous exam. Small retroperitoneal lymph node is stable. 3.1.0 cm enhancing nodule in the right lobe of the liver is only faintly seen, likely due to differences in bolus timing, but unchanged in size. No new liver masses. 4.Stable appearing stent in the descending colon. 5.Faint area of heterogeneous hypodensity in the medial aspect of the spleen is unchanged. Left adrenal nodule is unchanged. Signed: Asa Menjivar MD Report Verified Date/Time: 04/17/2019 09:11:14 Performing Organization Address City/State/Zipcode Phone Number [facility] CT abdomen without & with IV contrast (12/25/2018 12:22 PM CDT) Specimen Narrative Performed At FINAL REPORT [facility] CT CHEST, ABDOMEN, AND PELVIS WITH CONTRAST HISTORY: colon cancer metastasized to multiple sites COMPARISON:CTs of the chest abdomen and pelvis October 05, 2018 and July 17, 2018. TECHNIQUE: CT scan of the chest, abdomen, and pelvis WITH intravenous contrast, using standard protocol. Coronal and sagittal reformats are provided. IV CONTRAST:150 cc of Isovue-300. RADIATION DOSE: Total DLP: 2792.97 mGy*cm Dose modulation, iterative reconstruction, and/or weight based adjustment of the mA/kV was utilized to reduce the radiation dose to as low as reasonably achievable. COMPLICATIONS: None FINDINGS: Lines/tubes: Stable appearing right chest port, the tip near the confluence of the brachiocephalic veins. CHEST: Lungs and Airways: Right: *A 5 mm nodule abutting the major fissure (axial image 48), comparison is markedly limited given the previous size of the pleural effusion and adjacent atelectasis. *A punctate nodule near the major fissure (axial image 51), comparison is markedly limited given the previous size of the pleural effusion and adjacent atelectasis. *Stable punctate nodule in the right upper lobe adjacent to the minor fissure (axial image 52). *Stable 2 mm nodule adjacent to the lateral aspect of the minor fissure (axial image 53). *Punctate nodule adjacent to the major fissure (axial image 53), comparison is markedly limited given the previous size of the pleural effusion and adjacent atelectasis. *Stable punctate nodule along the minor fissure (axial image 55). *Stable 3 mm subpleural nodule in the anterior aspect of the middle lobe (axial image image 58). *Stable 3 mm calcified granuloma within the lower lobe (axial image 71). Pleura:Interval decreased size of the left pleural effusion and adjacent atelectasis, small residual. Heart and mediastinum: The thyroid gland is normal. The heart is normal, no pericardial effusion. ABDOMEN: HEPATOBILIARY: Stable 1 cm enhancing lesion in the right lobe of the liver, axial image 59. No biliary ductal dilatation. The gallbladder is unremarkable. SPLEEN: Subtle nonspecific heterogeneous density at the medial aspect, without a discrete well-defined mass. PANCREAS: No focal masses or ductal dilatation. ADRENALS: No right adrenal nodule. Stable 3.9 x 3.1 cm left adrenal nodule. KIDNEYS/URETERS: No hydronephrosis, stones, or solid mass lesions. PELVIS: The urinary bladder is partially decompressed, which limits evaluation. PERITONEUM / RETROPERITONEUM: *Interval decreased omental nodularity and thickening, 1.8 cm in thickness (axial image 70). *Resolution of the ascites. LYMPH NODES: *Decreased size of the right cardiophrenic lymph node, now 0.9 cm. *Interval decreased size of the enlarged retroperitoneal lymph nodes, the largest remaining aortocaval nodes, measures 0.6 cm in short axis. VESSELS: Atherosclerotic calcifications, including the coronary arteries. GI TRACT: Similar appearance of the metallic stent and clip in the descending colon, results in beam nix artifact which partially limits regional evaluation. Questionable mild interval increased soft tissue prominence adjacent to the superior and posterolateral aspect of the stent (axial image 69 and coronal image 80). BONES:No aggressive osseous lesion or acute fracture. SOFT TISSUES: Unremarkable. IMPRESSION: 1.Interval decrease in the peritoneal carcinomatosis and peritoneal/right cardiophrenic lymphadenopathy, compatible with response to treatment. 2.Stable appearance of the descending colon stent, questionable mild interval increase in the soft tissue prominence adjacent to the superior and posterolateral aspect of the stent, advise attention to this region on subsequent follow-ups. 3.Stable left adrenal nodule. 4.Stable enhancing 1 cm lesion in the right hepatic lobe. 5.Multiple stable small pulmonary nodules and nodules measuring up to 5 mm which cannot be evaluated for interval change. Advise continued attention on subsequent follow-ups. 6.Interval decrease in the left pleural effusion and adjacent atelectasis. 7.Mild nonspecific heterogeneity at the medial aspect of the spleen, advise attention on subsequent follow-ups. Signed: Og Soriano MD Report Verified Date/Time:12/25/2018 15:06:57 Procedure Note Interface, External Ris In - 12/25/2018 3:09 PM CDT FINAL REPORT CT CHEST, ABDOMEN, AND PELVIS WITH CONTRAST HISTORY: colon cancer metastasized to multiple sites COMPARISON: CTs of the chest abdomen and pelvis October 05, 2018 and July 17, 2018. TECHNIQUE: CT scan of the chest, abdomen, and pelvis WITH intravenous contrast, using standard protocol. Coronal and sagittal reformats are provided. IV CONTRAST: 150 cc of Isovue-300. RADIATION DOSE: Total DLP: 2792.97 mGy*cm Dose modulation, iterative reconstruction, and/or weight based adjustment of the mA/kV was utilized to reduce the radiation dose to as low as reasonably achievable. COMPLICATIONS: None FINDINGS: Lines/tubes: Stable appearing right chest port, the tip near the confluence of the brachiocephalic veins. CHEST: Lungs and Airways: Right: *A 5 mm nodule abutting the major fissure (axial image 48), comparison is markedly limited given the previous size of the pleural effusion and adjacent atelectasis. *A punctate nodule near the major fissure (axial image 51), comparison is markedly limited given the previous size of the pleural effusion and adjacent atelectasis. *Stable punctate nodule in the right upper lobe adjacent to the minor fissure (axial image 52). *Stable 2 mm nodule adjacent to the lateral aspect of the minor fissure (axial image 53). *Punctate nodule adjacent to the major fissure (axial image 53), comparison is markedly limited given the previous size of the pleural effusion and adjacent atelectasis. *Stable punctate nodule along the minor fissure (axial image 55). *Stable 3 mm subpleural nodule in the anterior aspect of the middle lobe (axial image image 58). *Stable 3 mm calcified granuloma within the lower lobe (axial image 71). Pleura: Interval decreased size of the left pleural effusion and adjacent atelectasis, small residual. Heart and mediastinum: The thyroid gland is normal. The heart is normal, no pericardial effusion. ABDOMEN: HEPATOBILIARY: Stable 1 cm enhancing lesion in the right lobe of the liver, axial image 59. No biliary ductal dilatation. The gallbladder is unremarkable. SPLEEN: Subtle nonspecific heterogeneous density at the medial aspect, without a discrete well-defined mass. PANCREAS: No focal masses or ductal dilatation. ADRENALS: No right adrenal nodule. Stable 3.9 x 3.1 cm left adrenal nodule. KIDNEYS/URETERS: No hydronephrosis, stones, or solid mass lesions. PELVIS: The urinary bladder is partially decompressed, which limits evaluation. PERITONEUM / RETROPERITONEUM: *Interval decreased omental nodularity and thickening, 1.8 cm in thickness (axial image 70). *Resolution of the ascites. LYMPH NODES: *Decreased size of the right cardiophrenic lymph node, now 0.9 cm. *Interval decreased size of the enlarged retroperitoneal lymph nodes, the largest remaining aortocaval nodes, measures 0.6 cm in short axis. VESSELS: Atherosclerotic calcifications, including the coronary arteries. GI TRACT: Similar appearance of the metallic stent and clip in the descending colon, results in beam nix artifact which partially limits regional evaluation. Questionable mild interval increased soft tissue prominence adjacent to the superior and posterolateral aspect of the stent (axial image 69 and coronal image 80). BONES: No aggressive osseous lesion or acute fracture. SOFT TISSUES: Unremarkable. IMPRESSION: 1. Interval decrease in the peritoneal carcinomatosis and peritoneal/right cardiophrenic lymphadenopathy, compatible with response to treatment. 2. Stable appearance of the descending colon stent, questionable mild interval increase in the soft tissue prominence adjacent to the superior and posterolateral aspect of the stent, advise attention to this region on subsequent follow-ups. 3. Stable left adrenal nodule. 4. Stable enhancing 1 cm lesion in the right hepatic lobe. 5. Multiple stable small pulmonary nodules and nodules measuring up to 5 mm which cannot be evaluated for interval change. Advise continued attention on subsequent follow-ups. 6. Interval decrease in the left pleural effusion and adjacent atelectasis. 7. Mild nonspecific heterogeneity at the medial aspect of the spleen, advise attention on subsequent follow-ups. Signed: Og Soriano MD Report Verified Date/Time: 12/25/2018 15:06:57 Performing Organization Address City/State/Zipcode Phone Number [facility] CT pelvis with IV contrast (12/25/2018 12:22 PM CDT) Specimen Narrative Performed At FINAL REPORT [facility] CT CHEST, ABDOMEN, AND PELVIS WITH CONTRAST HISTORY: colon cancer metastasized to multiple sites COMPARISON:CTs of the chest abdomen and pelvis October 05, 2018 and July 17, 2018. TECHNIQUE: CT scan of the chest, abdomen, and pelvis WITH intravenous contrast, using standard protocol. Coronal and sagittal reformats are provided. IV CONTRAST:150 cc of Isovue-300. RADIATION DOSE: Total DLP: 2792.97 mGy*cm Dose modulation, iterative reconstruction, and/or weight based adjustment of the mA/kV was utilized to reduce the radiation dose to as low as reasonably achievable. COMPLICATIONS: None FINDINGS: Lines/tubes: Stable appearing right chest port, the tip near the confluence of the brachiocephalic veins. CHEST: Lungs and Airways: Right: *A 5 mm nodule abutting the major fissure (axial image 48), comparison is markedly limited given the previous size of the pleural effusion and adjacent atelectasis. *A punctate nodule near the major fissure (axial image 51), comparison is markedly limited given the previous size of the pleural effusion and adjacent atelectasis. *Stable punctate nodule in the right upper lobe adjacent to the minor fissure (axial image 52). *Stable 2 mm nodule adjacent to the lateral aspect of the minor fissure (axial image 53). *Punctate nodule adjacent to the major fissure (axial image 53), comparison is markedly limited given the previous size of the pleural effusion and adjacent atelectasis. *Stable punctate nodule along the minor fissure (axial image 55). *Stable 3 mm subpleural nodule in the anterior aspect of the middle lobe (axial image image 58). *Stable 3 mm calcified granuloma within the lower lobe (axial image 71). Pleura:Interval decreased size of the left pleural effusion and adjacent atelectasis, small residual. Heart and mediastinum: The thyroid gland is normal. The heart is normal, no pericardial effusion. ABDOMEN: HEPATOBILIARY: Stable 1 cm enhancing lesion in the right lobe of the liver, axial image 59. No biliary ductal dilatation. The gallbladder is unremarkable. SPLEEN: Subtle nonspecific heterogeneous density at the medial aspect, without a discrete well-defined mass. PANCREAS: No focal masses or ductal dilatation. ADRENALS: No right adrenal nodule. Stable 3.9 x 3.1 cm left adrenal nodule. KIDNEYS/URETERS: No hydronephrosis, stones, or solid mass lesions. PELVIS: The urinary bladder is partially decompressed, which limits evaluation. PERITONEUM / RETROPERITONEUM: *Interval decreased omental nodularity and thickening, 1.8 cm in thickness (axial image 70). *Resolution of the ascites. LYMPH NODES: *Decreased size of the right cardiophrenic lymph node, now 0.9 cm. *Interval decreased size of the enlarged retroperitoneal lymph nodes, the largest remaining aortocaval nodes, measures 0.6 cm in short axis. VESSELS: Atherosclerotic calcifications, including the coronary arteries. GI TRACT: Similar appearance of the metallic stent and clip in the descending colon, results in beam nix artifact which partially limits regional evaluation. Questionable mild interval increased soft tissue prominence adjacent to the superior and posterolateral aspect of the stent (axial image 69 and coronal image 80). BONES:No aggressive osseous lesion or acute fracture. SOFT TISSUES: Unremarkable. IMPRESSION: 1.Interval decrease in the peritoneal carcinomatosis and peritoneal/right cardiophrenic lymphadenopathy, compatible with response to treatment. 2.Stable appearance of the descending colon stent, questionable mild interval increase in the soft tissue prominence adjacent to the superior and posterolateral aspect of the stent, advise attention to this region on subsequent follow-ups. 3.Stable left adrenal nodule. 4.Stable enhancing 1 cm lesion in the right hepatic lobe. 5.Multiple stable small pulmonary nodules and nodules measuring up to 5 mm which cannot be evaluated for interval change. Advise continued attention on subsequent follow-ups. 6.Interval decrease in the left pleural effusion and adjacent atelectasis. 7.Mild nonspecific heterogeneity at the medial aspect of the spleen, advise attention on subsequent follow-ups. Signed: Og Soriano MD Report Verified Date/Time:12/25/2018 15:06:57 Procedure Note Interface, External Ris In - 12/25/2018 3:09 PM CDT FINAL REPORT CT CHEST, ABDOMEN, AND PELVIS WITH CONTRAST HISTORY: colon cancer metastasized to multiple sites COMPARISON: CTs of the chest abdomen and pelvis October 05, 2018 and July 17, 2018. TECHNIQUE: CT scan of the chest, abdomen, and pelvis WITH intravenous contrast, using standard protocol. Coronal and sagittal reformats are provided. IV CONTRAST: 150 cc of Isovue-300. RADIATION DOSE: Total DLP: 2792.97 mGy*cm Dose modulation, iterative reconstruction, and/or weight based adjustment of the mA/kV was utilized to reduce the radiation dose to as low as reasonably achievable. COMPLICATIONS: None FINDINGS: Lines/tubes: Stable appearing right chest port, the tip near the confluence of the brachiocephalic veins. CHEST: Lungs and Airways: Right: *A 5 mm nodule abutting the major fissure (axial image 48), comparison is markedly limited given the previous size of the pleural effusion and adjacent atelectasis. *A punctate nodule near the major fissure (axial image 51), comparison is markedly limited given the previous size of the pleural effusion and adjacent atelectasis. *Stable punctate nodule in the right upper lobe adjacent to the minor fissure (axial image 52). *Stable 2 mm nodule adjacent to the lateral aspect of the minor fissure (axial image 53). *Punctate nodule adjacent to the major fissure (axial image 53), comparison is markedly limited given the previous size of the pleural effusion and adjacent atelectasis. *Stable punctate nodule along the minor fissure (axial image 55). *Stable 3 mm subpleural nodule in the anterior aspect of the middle lobe (axial image image 58). *Stable 3 mm calcified granuloma within the lower lobe (axial image 71). Pleura: Interval decreased size of the left pleural effusion and adjacent atelectasis, small residual. Heart and mediastinum: The thyroid gland is normal. The heart is normal, no pericardial effusion. ABDOMEN: HEPATOBILIARY: Stable 1 cm enhancing lesion in the right lobe of the liver, axial image 59. No biliary ductal dilatation. The gallbladder is unremarkable. SPLEEN: Subtle nonspecific heterogeneous density at the medial aspect, without a discrete well-defined mass. PANCREAS: No focal masses or ductal dilatation. ADRENALS: No right adrenal nodule. Stable 3.9 x 3.1 cm left adrenal nodule. KIDNEYS/URETERS: No hydronephrosis, stones, or solid mass lesions. PELVIS: The urinary bladder is partially decompressed, which limits evaluation. PERITONEUM / RETROPERITONEUM: *Interval decreased omental nodularity and thickening, 1.8 cm in thickness (axial image 70). *Resolution of the ascites. LYMPH NODES: *Decreased size of the right cardiophrenic lymph node, now 0.9 cm. *Interval decreased size of the enlarged retroperitoneal lymph nodes, the largest remaining aortocaval nodes, measures 0.6 cm in short axis. VESSELS: Atherosclerotic calcifications, including the coronary arteries. GI TRACT: Similar appearance of the metallic stent and clip in the descending colon, results in beam nix artifact which partially limits regional evaluation. Questionable mild interval increased soft tissue prominence adjacent to the superior and posterolateral aspect of the stent (axial image 69 and coronal image 80). BONES: No aggressive osseous lesion or acute fracture. SOFT TISSUES: Unremarkable. IMPRESSION: 1. Interval decrease in the peritoneal carcinomatosis and peritoneal/right cardiophrenic lymphadenopathy, compatible with response to treatment. 2. Stable appearance of the descending colon stent, questionable mild interval increase in the soft tissue prominence adjacent to the superior and posterolateral aspect of the stent, advise attention to this region on subsequent follow-ups. 3. Stable left adrenal nodule. 4. Stable enhancing 1 cm lesion in the right hepatic lobe. 5. Multiple stable small pulmonary nodules and nodules measuring up to 5 mm which cannot be evaluated for interval change. Advise continued attention on subsequent follow-ups. 6. Interval decrease in the left pleural effusion and adjacent atelectasis. 7. Mild nonspecific heterogeneity at the medial aspect of the spleen, advise attention on subsequent follow-ups. Signed: Og Soriano MD Report Verified Date/Time: 12/25/2018 15:06:57 Performing Organization Address City/[facility] [facility] Phone Number RIS POC-Creatinine (12/25/2018 8:52 AM CDT) POC-Creatinine 0.7Comment: TESTED AT [facility] 0.6 - 1.3 mg/dL [address] [address] POC-EGFR 140 mL/min/1.73M2 [facility] Specimen Blood Performing Organization Address [facility] HospitalCambridge [place] [address] [phone] [place] EKG-SCANNED (09/20/2018 7:50 AM AP[facility] THINNER)Only the most recent of2 resultswithin the time period is included. Narrative Performed At RHYTHM STRIP - SCAN (09/20/2018 7:50 AM AP[facility]INNER)Only the most recent of2 resultswithin the time period is included. Narrative Performed At POC-Glucose meter (09/13/2018 12:33 PM AP[facility] THINNER)Only the most recent of35 resultswithin the time period is included. POC-Glucose Meter 115 (H)Comment: TESTED AT 70 - 110 mg/dL [address] [address] Specimen Blood Performing Organization Address [facility] HospitalcoPhosImmune Phone Number [place] [phone] CENTER CBC with platelet count + automated diff (09/13/2018 6:08 AM APPLE THINNER)Only the most recent of8 resultswithin the time period is included. WBC 9.8 3.5 - 10.5 K/L [facility] RBC 4.61 (L) 4.63 - 6.08 M/L [facility] Hemoglobin 12.9 (L) 13.7 - 17.5 GM/DL [facility] Hematocrit 41.0 40.1 - 51.0 % [facility] MCV 88.9 79.0 - 92.2 fL [facility] MCH 28.0 25.7 - 32.2 pg [facility] MCHC 31.5 (L) 32.3 - 36.5 GM/DL [facility] RDW 13.0 11.6 - 14.4 % [facility] Platelets 285 150 - 450 K/CU MM [facility] MPV 11.3 9.4 - 12.4 fL [facility] nRBC 0 0 - 0 /100 WBC [facility] % Neutros 69 % [facility] % Lymphs 18 % [facility] % Monos 11 % [facility] % Eos 2 % [facility] % Baso 1 % [facility] # Neutros 6.71 (H) 1.78 - 5.38 K/L [facility] # Lymphs 1.72 1.32 - 3.57 K/L [facility] # Monos 1.10 (H) 0.30 - 0.82 K/L [facility] # Eos 0.17 0.04 - 0.54 K/L [facility] # Baso 0.06 0.01 - 0.08 K/L [facility] Immature Granulocytes-Relative 0 0 - 1 % [facility] Specimen Blood Performing Organization Address City/[facility]/Zipcode Phone Number [address] [address] [phone] [place] Magnesium (09/13/2018 6:08 AM APPLE THINNER)Only the most recent of3 resultswithin the time period is included. Magnesium 1.7 1.6 - 2.6 mg/dL [facility] Specimen Blood Performing Organization Address City/[facility]/Zipcode Phone Number [address] [address] [phone] [place] Carcinoembryonic Antigen (CEA) (09/13/2018 6:08 AM [facility]INNER)Only the most recent of2 resultswithin the time period is included. CEA, SERUM 1,302.5 (H) 0.0 - 5.0 ng/mL [facility] Specimen Blood Performing Organization Address City/[facility] Hospitalcomo Phone Number [address] [address] [phone] [place] Hepatic function panel (09/13/2018 6:08 AM AP[facility] THINNER)Only the most recent of2 resultswithin the time period is included. Protein, Total 7.4 6.0 - 8.3 gm/dL [facility] Albumin 3.9 3.5 - 5.0 g/dL [facility] Total Bilirubin 0.6 0.2 - 1.2 mg/dL [facility] Bilirubin, Direct 0.3 0.1 - 0.5 mg/dL [facility] Alkaline Phosphatase 63 40 - 150 U/L [facility] AST 23 5 - 34 U/L [facility] ALT 37 6 - 55 U/L [facility] Specimen Blood Performing Organization Address City/[facility]/Zipcode Phone Number [facility] [address] [place] [address] [phone] CENTER Basic metabolic panel (09/13/2018 6:08 AM [facility]INNER)Only the most recent of8 resultswithin the time period is included. Sodium 139 136 - 145 meq/L [facility] Potassium 3.5 3.5 - 5.1 meq/L [facility] Chloride 105 98 - 107 meq/L [facility] CO2 26 22 - 29 meq/L [facility] BUN 10 7 - 21 mg/dL [facility] Creatinine 0.77 0.57 - 1.25 mg/dL [facility] Glucose 135 (H) 70 - 105 mg/dL [facility] Calcium 8.9 8.4 - 10.2 mg/dL [facility] EGFR 126Comment: ESTIMATED GFR IS mL/min/1.73 sq m [facility] NOT ACCURATE CREATININE [facility] CLEARANCE IN PREDICTING GLOMERULAR FILTRATION RATE. ESTIMATED GFR IS NOT APPLICABLE FOR DIALYSIS PATIENTS. Specimen Blood Performing Organization Address [facility] Phone Number [facility] [address] [place], [place] [phone] [place] REPORT OF PROCEDURE - ENDOSCOPY URL (09/11/2018 6:00 PM AP[facility]INNER) Narrative Performed At [place] trading manager in or 30 minute increments (09/11/2018 5:50 PM [facility]INNER)Only the most recent of2 resultswithin the time period is included. Specimen Narrative Performed At FINAL REPORT [employer] Fluoroscopy 5 views intraoperative 09/11/2018 7:39 PM CLINICAL HISTORY: Instrument localization COMPARISON: None available IMPRESSION: Please correlate imaging report findings with the procedure note prepared by Dr. Cordova, as an intra-procedure imaging consultation was not requested. Reported fluoroscopy time: 525.3 seconds. Signed: Chau Gasca MD Report Verified Date/Time:09/11/2018 19:40:28 Reading Location: [facility] Radiology Reading Room Procedure Note Interface, External Ris In - 09/11/2018 7:42 PM [facility] FINAL REPORT Fluoroscopy 5 views intraoperative 09/11/2018 7:39 PM CLINICAL HISTORY: Instrument localization COMPARISON: None available IMPRESSION: Please correlate imaging report findings with the procedure note prepared by Dr. Cordova, as an intra-procedure imaging consultation was not requested. Reported fluoroscopy time: 525.3 seconds. Signed: Chau Gasca MD Report Verified Date/Time: 09/11/2018 19:40:28 Reading Location: [facility] Radiology Reading Room Performing Organization Address City/State/Zipcode Phone Number GE RIS Phosphorus (09/11/2018 5:34 AM AP[facility] THINNER) Phosphorus 3.8 2.3 - 4.7 mg/dL [facility] Specimen Blood Performing Organization Address City/[facility]/[place] [address] CENTER ECHOCARDIOGRAM REPORT - SCAN (07/19/2018 3:20 PM CDT) Narrative Performed At IR Port-a-Cath Placement (07/19/2018 3:16 PM CDT) Specimen Narrative Performed At FINAL REPORT GE RIS Right internal jugular chest port insertion History: Patient requires access for chemotherapy administration. Modality: Sonography and fluoroscopy. Sedation: Versed 1.5 mg and fentanyl 50 mcg given intravenously for conscious sedation.Vital signs were monitored throughout the procedure by a nurse, and remained stable. Physician intra-service time was 30 minutes. Print Shop Chief Clerk:Singh Escamilla MD Die Maker Stamping:Noé. Approach: Right internal jugular vein Estimated blood [...] needle into the right atrium. A 4 Czech micropuncture sheath was placed. A subcutaneous tunnel [...] MD Report Verified Date/Time:07/19/2018 18:25:29 Reading Location: [place] [address] Angio Body Reading Room Procedure Note Interface, [...] stable. Physician intra-service time was 30 minutes. Print Shop Chief Clerk: Singh Escamilla MD Die Maker Stamping: Noé. Approach: Right internal jugular vein Estimated [...] needle into the right atrium. A 4 Czech micropuncture sheath was placed. A subcutaneous tunnel [...] Report Verified Date/Time: 07/19/2018 18:25:29 Reading Location: [facility] P048 Angio Body Reading Room Performing Organization Address City/State/Zipcode Phone Number GE RIS ECHO W CONTRAST & DOPPLER (07/19/2018 9:18 AM CDT) Ejection Fraction [facility] Specimen Narrative Performed At Transthoracic Echocardiography Report (TTE) [facility] Demographics Patient Name Sunny LARA of Study 07/19/2018 [id number] GenderMale Visit Number [id number] RaceBlack [id number] Room Number 1551 Number Date of Birth1960 Referring Physician DEON TURCIOS Age57 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 Morton Interpreting Zeynep Mahoney MD Physician [...] 2.34 cm Aorta Ao Root S of Mayrsol.: 3.52 cm Ascending Aorta: 3.44 cm Doppler/Quantitative [...] Performing Organization Address City/State/Zipcode Phone Number [facility]CHO [facility] Prothrombin time/INR (07/19/2018 5:01 AM CDT) Protime 14.2 11.7 - 14.7 seconds [facility] INR 1.1 <=5.9 [facility] Specimen Blood Narrative Performed At [facility] RECOMMENDED COUMADIN/WARFARIN INR THERAPY RANGES STANDARD DOSE: 2.0 - 3.0 Includes: PROPHYLAXIS for venous thrombosis, systemic embolization; TREATMENT for venous thrombosis and/or pulmonary embolus. HIGH RISK: Target INR is 2.5-3.5 for patients with mechanical heart valves. Performing Organization Address City/[facility]/Zipcode Phone Number [facility] [address] [place] [address] CENTER REPORT OF PROCEDURE - ENDOSCOPY URL (07/18/2018 5:40 PM CDT) Narrative Performed At Tissue Exam (07/18/2018 3:02 PM CDT)Only the most recent of2 resultswithin the time period is included. Case Report Surgical Pathology Report Case: [id number] [facility] Authorizing Provider:Julius Umanzor MDCollected: 07/18/2018 1502 [facility] Ordering Location: [address] Received: 07/19/2018 0751 Service Pathologist: Charo Brar MD Specimen:Large Intestine, Colon - Left/Descending, mass DIAGNOSIS LEFT/DESCENDING COLON, BIOPSY: [facility] - INVASIVE MODERATELY DIFFERENTIATED ADENOCARCINOMA, SITUATED PREDOMINANTLY [facility] BENEATH THE MUSCULARIS MUCOSA, WITH FOCAL NECROSIS MO/pl Signing Pathologist Direct Phone Line: [phone] CPT Code(s) 35416 x1 [facility] CLINICAL HISTORY Stenosis of colon, colonic [facility] mass [facility] SPECIMEN SOURCE Left descending colon mass [facility] biopsy [facility] GROSS DESCRIPTION The specimen is received in [facility] a formalin-filled container [facility] labeled with the patient's information and labeled "left descending colon mass biopsy" and consists of multiple fragments of guido-red soft tissue ranging from less than 0.1 to 0.3 cm, submitted entirely in A1. CG/ew MICROSCOPIC DESCRIPTION The biopsy from the [facility] left/descending colon shows [facility] an invasive mostly moderately differentiated adenocarcinoma, with features consistent with colonic type. A bit of the overlying epithelium shows some adenomatous changes, but a definitive adjacent polyp is not well-demonstrated in these sections. In this sample, invasive tumor is mostly present subjacent/below the muscularis mucosa and there is some associated necrosis with apoptosis. Other significant features are not noted. Specimen Tissue Performing Organization Address City/[facility]/Zipcode Phone Number [facility] [address] [place] Body fluid cell count with differential (07/17/2018 3:45 PM CDT) Appearance Slightly Bloody (A) Clear [facility] Color Yarelis (A) Colorless, Straw [facility] RBCs 9,500 (H) <=1 /cu mm [facility] Adjusted WBC Count 1,043 (H) <=5 /cu mm [facility] Lining Cells 42 (H) <=1 /cu mm [facility] % Segs 17 % [facility] % Lymphs 28 % [facility] % Monos 55 % [facility] % Eos 0 % [facility] % Baso 0 % [facility] Container Body Fluid EDTA Tube [facility] Specimen Body Fluid Performing Organization Address City/[facility] Phone Number [address] [address] [place] Protein, body fluid (07/17/2018 3:45 PM CDT) Protein, Fluid 5.0 g/dL [facility] Specimen Body Fluid Narrative Performed At [facility] Absence of reference range indicates that normals have not been defined. Assay performance has not been validated for this type of specimen. Performing Organization Address City/State/[facility] Phone Number [address] [address] [phone] [place] Albumin, body fluid (07/17/2018 3:45 PM CDT) Albumin, Fluid 2.9 gm/dL [facility] Specimen Body Fluid Narrative Performed At [facility] Reference Range:No Normals Assay performance has not been validated for this type of specimen. Performing Organization Address City/State/[facility] Phone Number [facility] [address] [place] [address] [phone] biopsy abdomen (07/17/2018 3:28 PM CDT) Specimen Narrative Performed At FINAL REPORT [employer] PROCEDURE: CT-guided core biopsy of omental nodules. [...] MD Report Verified Date/Time:07/17/2018 16:57:37 Reading Location: [facility] B1 C013Y CT Body Reading Room Procedure [...] Report Verified Date/Time: 07/17/2018 16:57:37 Reading Location: [facility] B1 C013Y CT Body Reading Room Performing Organization Address City/State/Zipcode Phone Number GE RIS Cytology (07/17/2018 2:35 PM CDT) Case Report Medical Cytology Report Case: [id number] [facility] Authorizing Provider:Jessi Turcios MD Collected: 07/17/2018 1435 [facility] Ordering Location: [address] Received: 07/18/2018 0837 Service Pathologist: Alvin Arroyo MD Specimen:Peritoneal Fluid DIAGNOSIS PERITONEAL FLUID (CYTOSPINS): [facility] - SUSPICIOUS FOR MALIGNANCY [facility] Signing Pathologist Direct Phone Line: [phone] COMMENT There are a few atypical [facility] clusters that are [facility] suspicious for malignancy in a background of reactive mesothelial cells and chronic inflammation. CPT Code(s) 14460 [facility] CLINICAL DATA Ascites; colon mass and [facility] omental nodules presents [facility] for CT-guided core biopsy of omental nodules SPECIMEN SOURCE PERITONEAL FLUID [facility] GROSS DESCRIPTION Prepared 4 cytospins from 4 ml yellow blood-tinged fluid [facility] Collected: [id number] [facility] Received: [id number] STATEMENT OF ADEQUACY Satisfactory [facility] Gross assessment was [facility] performed at [place], Department [facility] Pathology, [address] [place] [phone], Technical component was [facility] performed at [place], Department [facility] Pathology, [address] [place] [address], Professional component was [facility] performed at [place], Department [facility] Pathology, [address] [place] [address], Specimen Body Fluid Narrative Performed At Performing Organization Address [facility] Phone Number [address] [address] [place] PT/aPTT (07/17/2018 12:55 PM CDT) Protime 14.6 11.7 - 14.7 seconds [facility] INR 1.1 <=5.9 [facility] PTT 27.7 22.5 - 36.0 seconds [facility] Specimen Blood Narrative Performed At [facility] RECOMMENDED COUMADIN/WARFARIN INR THERAPY RANGES STANDARD DOSE: 2.0 - 3.0 Includes: PROPHYLAXIS for venous thrombosis, systemic embolization; TREATMENT for venous thrombosis and/or pulmonary embolus. HIGH RISK: Target INR is 2.5-3.5 for patients with mechanical heart valves. Performing Organization Address [facility] Phone Number [address] [address] CENTER Hemoglobin A1c (07/17/2018 5:22 AM CDT) Hemoglobin A1C 5.6 4.3 - 6.1 % [facility] Specimen Blood Performing Organization Address [facility] Phone Number [address] [address] [phone] [place] TRANSFUSION SERVICE REPORT - SCAN (07/16/2018 5:50 PM CDT) Narrative Performed At Albumin (07/16/2018 1:55 PM CDT) Albumin 3.9 3.5 - 5.0 g/dL [facility] Specimen Blood Performing Organization Address [facility]/Zipcode Phone Number [address] [address] [place] REPORT OF PROCEDURE - ENDOSCOPY URL (07/15/2018 2:17 PM CDT) Narrative Performed At XR chest 1 view portable / bedside (07/15/2018 11:35 AM CDT) Specimen Narrative Performed At FINAL REPORT GE RIS TECHNIQUE: Frontal view of the chest. INDICATION: [...] MD Report Verified Date/Time:07/15/2018 11:43:39 Reading Location: [address] Body Reading Room Procedure Note [...] Report Verified Date/Time: 07/15/2018 11:43:39 Reading Location: [address] Body Reading Room Performing Organization Address City/State/Zipcode Phone Number GE RIS Type and screen, automated (07/15/2018 10:47 AM CDT) ABO/RH AUTOMATED (BEAKER) A POSITIVE [facility] Ab Scrn NEGATIVE [facility] Specimen Blood Performing Organization Address City/State/[facility] Phone Number [address] [address] Blood culture (07/14/2018 11:55 PM CDT)Only the most recent of2 resultswithin the time period is included. Result No growth in 5 days [facility] Specimen Blood Performing Organization Address [facility] Phone Number [address] [address] [phone] CENTER Rapid Influenza A&B Screen (07/14/2018 11:30 PM CDT) Rapid Influenza A Antigen Negative Negative, Inconclusive [facility] Rapid influenza B Antigen Negative Negative, Inconclusive [facility] Specimen Nasal Performing Organization Address [facility] Phone Number [address] [address] CENTER Strep pneumoniae urine antigen (07/14/2018 11:28 PM CDT) Strep pneumoniae Presumptive negative Presumptive negative [facility] for pneumococcal [facility] pneumonia - see comment pneumonia - see CENTER comment, Presumptive negative for pneumococcal meningitis - see comment Specimen Urine Narrative Performed At Presumptive negative for pneumococcal [facility] pneumonia, suggesting no current or recent pneumococcal infection. Infection due to S. pneumoniae cannot be ruled out since the antigen present in the sample may be below the detection limit of the test. Performing Organization Address [facility] Hospitalcom[facility] Phone Number [address] [id number] [phone] CENTER Legionella antigen, urine (07/14/2018 11:28 PM CDT) Legionella Urine Antigen Negative - see [facility] commentComment: Negative [facility] for L. pneumophila serogroup 1 antigen, suggesting no recent or current infection with this serogroup. Legionellosis cannot be ruled out since other serogroups and species may cause disease. Specimen Urine Performing Organization Address [facility] Phone Number [address] [place] [address] [phone] CENTER EKG 12 lead (07/14/2018 10:59 PM CDT)Only the most recent of2 resultswithin the time period is included. Specimen Narrative Performed At Ventricular Rate 86 BPM GE MUSE Atrial Rate 86 BPM P-R Interval 158 ms QRS Duration 76 ms Q-T Interval 364 ms QTC Calculation(Bazett) 435 ms P Butler 57 degrees R Butler 35 degrees T Butler 178 degrees Sinus rhythm with Premature atrial complexes Minimal voltage criteria for LVH, may be normal variant T wave inversion lateral leads consider postischemic changes Abnormal ECG When compared with ECG of 14-JUL-2018 22:59, No significant change was found Confirmed by MD SAGE YOCHAI ([id number]) on 07/15/2018 6:45:16 AM Procedure Note Interface, External Ris In - 07/15/2018 6:45 AM CDT Ventricular Rate 86 BPM Atrial Rate 86 BPM P-R Interval 158 ms QRS Duration 76 ms Q-T Interval 364 ms QTC Calculation(Bazett) 435 ms P Butler 57 degrees R Butler 35 degrees T Butler 178 degrees Sinus rhythm with Premature atrial complexes Minimal voltage criteria for LVH, may be normal variant T wave inversion lateral leads consider postischemic changes Abnormal ECG When compared with ECG of 14-JUL-2018 22:59, No significant change was found Confirmed by MD SAGE YOCHAI ([id number]) on 07/15/2018 6:45:16 AM Performing Organization Address City/State/Zipcode Phone Number GE MUSE Respiratory Panel [facility] (07/14/2018 10:29 PM CDT) Human Metapneumovirus Not detected Not detected, [facility] Rhinovirus Not detected Not detected, [facility] Equivocal [facility] Influenza A Not detected Not detected, [facility] INFLUENZA A (NO SUBTYPE) Not detected, [facility] [employer]ocal [facility] Influenza A subtype H1 Not detected, [facility] Influenza A Subtype H3 Not detected, [facility] [employer] [facility] Influenza A Subtype H1-2009 Not detected, [facility] [employer] [facility] Influenza B Not detected Not detected, [facility] Respiratory Syncytial Virus Not detected Not detected, [facility] Parainfluenza Virus 1 Not detected Not detected, [facility] Parainfluenza Virus 2 Not detected Not detected, [facility] Parainfluenza virus 3 Not detected Not detected, [facility] Parainfluenza Virus 4 Not detected Not detected, [facility] Adenovirus Not detected Not detected, [facility] Coronavirus 229E Not detected Not detected, [facility] Coronavirus HKU1 Not detected Not detected, [facility] Coronavirus NL63 Not detected Not detected, [facility] Coronavirus OC43 Not detected Not detected, [facility] Bordetella Pertussis Not detected Not detected, [facility] Chlamydophila Pneumoniae Not detected Not detected, [facility] Mycoplasma Pneumoniae Not detected Not detected, [facility] Specimen Nasopharyngeal Narrative Performed At Other viruses and bacteria not targeted by [facility] this PCR panel cannot be excluded; therefore clinical correlation and follow up of serology, culture results, and other molecular studies is required. The results are not intended to be used as the sole means for clinical diagnosis or patient management decisions. This sample was tested at the [facility] using the [employer] Respiratory Panel. It is FDA cleared and has been verified and approved by the [facility] for clinical use on nasal swab specimens. It is not FDA-cleared for use on bronchial wash/lavage samples. However, for this sample type, validation was performed and test characteristics were determined and approved, by [facility] for clinical use under the Clinical Laboratory Improvement Amendments (CLIA) of 1988 requirements. Therefore, FDA clearance is not required.This laboratory is CLIA-certified and [employer] ([employer])-accredited to perform high complexity testing. Performing Organization Address City/State/[facility] Phone Number S[facility]INO [employer] [facility] [address] [place] [address] CENTER after 05/06/2018 Insurance Payer Benefit Plan / Group Subscriber ID Type Phone Address [employer]N xxxxxxxxx PPO [employer] AM[employer] xxxxxxxxxxx (Home) [address] [place] [address] Advance Directives For more information, please contact:SABINO [employer] [id number] [place], [place] [phone] Code Status Date Activated Date Inactivated Comments Full Code 09/10/2018 8:57 PM This code status was determined by: Patient Full Code 07/14/2018 10:24 PM 07/20/2018 5:34 PM This code status was determined by: Patient
--- OUTSIDE RECORDS SUMMARY | 2019-05-07 20:42 | XMS REPORT ---
:1960 [facility] [address] [place] [address] Care Team Providers Name Role Phone MARLYS SOLITARIO Unavailable Unavailable ABDIRASHID SPARKS Unavailable Unavailable MARYAM ALVARADO Unavailable Unavailable Problems This patient has no known problems. Allergies, Adverse Reactions, Alerts This patient has no known allergies or adverse reactions. Medications This patient has no known medications. Results Test Description Test Time Test Comments Text Results Atomic Results Result Comments CT, ABDOMEN 2019-04-17 09:11:00 FINAL REPORT EXAM: CT Chest, Abdomen and Pelvis WITH contrast INDICATION: Colon cancer C18.9 COMPARISON: 12/25/2018, 10/05/2018, 07/17/2018TECHNIQUE: Chest, abdomen and pelvis were scanned utilizing [...] Multiple pulmonary nodules are again seen (series 2):Right:Lower lobe abutting the major fissure, 2 mm (previous 5 mm), image 48Lower lobe abutting the major fissure, 3 mm (previous punctate), image 54Upper lobe abutting the minor fissure, 1 to 2 mm (previous 1 to 2 mm), image 57Other punctate nodules previously described in the right middle lobe are no longer identified.Left:No discrete masses are seen.No new masses are seen in either lung.Trachea and main bronchi are clear. PLEURA: Decrease [...] adrenal nodule is unchanged. Signed: Asa Menjivar MDReport Verified Date/Time: 04/17/2019 09:11:14 , CHEST, WITH IV 2019-04-17 09:11:00 FINAL REPORT CONTRAST EXAM: CT Chest, Abdomen and Pelvis WITH contrast INDICATION: Colon cancer C18.9 COMPARISON: 12/25/2018, 10/05/2018, 07/17/2018TECHNIQUE: Chest, abdomen and pelvis were scanned utilizing [...] Multiple pulmonary nodules are again seen (series 2):Right:Lower lobe abutting the major fissure, 2 mm (previous 5 mm), image 48Lower lobe abutting the major fissure, 3 mm (previous punctate), image 54Upper lobe abutting the minor fissure, 1 to 2 mm (previous 1 to 2 mm), image 57Other punctate nodules previously described in the right middle lobe are no longer identified.Left:No discrete masses are seen.No new masses are seen in either lung.Trachea and main bronchi are clear. PLEURA: Decrease [...] adrenal nodule is unchanged. Signed: Asa Menjivar MDReport Verified Date/Time: 04/17/2019 09:11:14 , CHEST, WITH IV 2018-12-25 15:06:[address] CHEST, ABDOMEN, AND PELVIS WITH CONTRAST HISTORY: colon cancer metastasized to multiple sites COMPARISON: CTs of the chest abdomen and pelvis October 05, 2018 and July 17, 2018.TECHNIQUE:CT scan of the chest, abdomen, and pelvis WITH intravenous contrast, using standard protocol.Coronal and sagittal reformats are provided. IV CONTRAST: 150 cc of Isovue-300. RADIATION DOSE: Total DLP: 2792.97 mGy*cmDose modulation, iterative reconstruction, and/or weight based adjustment of the mA/kV was utilized to reduce the radiation dose to as low as reasonably achievable. COMPLICATIONS: None FINDINGS:Lines/tubes: Stable appearing right chest port, the tip near the confluence of the brachiocephalic veins. CHEST:Lungs and Airways: Right: *A 5 mm nodule abutting the major fissure (axial image 48), comparison is markedly limited given the previous size of the pleural effusion and adjacent atelectasis.*A punctate nodule near the major fissure (axial image 51), comparison is markedly limited given the previous size of the pleural effusion and adjacent atelectasis.*Stable punctate nodule in the right upper lobe adjacent to the minor fissure (axial image 52).*Stable 2 mm nodule adjacent to the lateral aspect of the minor fissure (axial image 53).*Punctate nodule adjacent to the major fissure (axial image 53), comparison is markedly limited given the previous size of the pleural effusion and adjacent atelectasis.*Stable punctate nodule along the minor fissure (axial image 55).*Stable 3 mm subpleural nodule in the anterior aspect of the middle lobe (axial image image 58).*Stable 3 mm calcified granuloma within the lower lobe (axial image 71). Pleura: Interval decreased size of the left pleural effusion and adjacent atelectasis, small residual. Heart and mediastinum: The thyroid gland is normal.The heart is normal, no pericardial effusion. ABDOMEN:HEPATOBILIARY: Stable 1 cm enhancing lesion in the right lobe of the liver, axial image 59.No biliary ductal dilatation. The gallbladder is unremarkable. SPLEEN: Subtle nonspecific heterogeneous density at the medial aspect, without a discrete well-defined mass. PANCREAS: No focal masses or ductal dilatation. ADRENALS: No right adrenal nodule.Stable 3.9 x 3.1 cm left adrenal nodule. KIDNEYS/URETERS: No hydronephrosis, stones, or solid mass lesions. PELVIS:The urinary bladder is partially decompressed, which limits evaluation. PERITONEUM / RETROPERITONEUM: *Interval decreased omental nodularity and thickening, 1.8 cm in thickness (axial image 70).*Resolution of the ascites. LYMPH NODES: *Decreased size of the right cardiophrenic lymph node, now 0.9 cm.*Interval decreased size of the enlarged retroperitoneal lymph [...] stent (axial image 69 and coronal image 80).BONES: No aggressive osseous lesion or acute fracture. SOFT TISSUES: Unremarkable. IMPRESSION: 1. Interval decrease in the peritoneal carcinomatosis and peritoneal/right cardiophrenic lymphadenopathy, compatible with response to treatment.2. Stable appearance of the descending colon stent, questionable mild interval increase in the soft tissue prominence adjacent to the superior and posterolateral aspect of the stent, advise attention to this region on subsequent follow-ups.3. Stable left adrenal nodule.4. Stable enhancing 1 cm lesion in the right hepatic lobe.5. Multiple stable small pulmonary nodules and nodules measuring up to 5 mm which cannot be evaluated for interval change. Advise continued attention on subsequent follow-ups.6. Interval decrease in the left pleural effusion and adjacent atelectasis.7. Mild nonspecific heterogeneity at the medial aspect of the spleen, advise attention on subsequent follow-ups. Signed: Og Soriano [facility] Verified Date/Time: 12/25/2018 15:06:57 , ABDOMEN, 2018-12-25 15:06:00 FINAL REPORT WITH IV CONTRAST CT CHEST, ABDOMEN, AND PELVIS WITH CONTRAST HISTORY: colon cancer metastasized to multiple sites COMPARISON: CTs of the chest abdomen and pelvis October 05, 2018 and July 17, 2018.TECHNIQUE:CT scan of the chest, abdomen, and pelvis WITH intravenous contrast, using standard protocol.Coronal and sagittal reformats are provided. IV CONTRAST: 150 cc of Isovue-300. RADIATION DOSE: Total DLP: 2792.97 mGy*cmDose modulation, iterative reconstruction, and/or weight based adjustment of the mA/kV was utilized to reduce the radiation dose to as low as reasonably achievable. COMPLICATIONS: None FINDINGS:Lines/tubes: Stable appearing right chest port, the tip near the confluence of the brachiocephalic veins. CHEST:Lungs and Airways: Right: *A 5 mm nodule abutting the major fissure (axial image 48), comparison is markedly limited given the previous size of the pleural effusion and adjacent atelectasis.*A punctate nodule near the major fissure (axial image 51), comparison is markedly limited given the previous size of the pleural effusion and adjacent atelectasis.*Stable punctate nodule in the right upper lobe adjacent to the minor fissure (axial image 52).*Stable 2 mm nodule adjacent to the lateral aspect of the minor fissure (axial image 53).*Punctate nodule adjacent to the major fissure (axial image 53), comparison is markedly limited given the previous size of the pleural effusion and adjacent atelectasis.*Stable punctate nodule along the minor fissure (axial image 55).*Stable 3 mm subpleural nodule in the anterior aspect of the middle lobe (axial image image 58).*Stable 3 mm calcified granuloma within the lower lobe (axial image 71). Pleura: Interval decreased size of the left pleural effusion and adjacent atelectasis, small residual. Heart and mediastinum: The thyroid gland is normal.The heart is normal, no pericardial effusion. ABDOMEN:HEPATOBILIARY: Stable 1 cm enhancing lesion in the right lobe of the liver, axial image 59.No biliary ductal dilatation. The gallbladder is unremarkable. SPLEEN: Subtle nonspecific heterogeneous density at the medial aspect, without a discrete well-defined mass. PANCREAS: No focal masses or ductal dilatation. ADRENALS: No right adrenal nodule.Stable 3.9 x 3.1 cm left adrenal nodule. KIDNEYS/URETERS: No hydronephrosis, stones, or solid mass lesions. PELVIS:The urinary bladder is partially decompressed, which limits evaluation. PERITONEUM / RETROPERITONEUM: *Interval decreased omental nodularity and thickening, 1.8 cm in thickness (axial image 70).*Resolution of the ascites. LYMPH NODES: *Decreased size of the right cardiophrenic lymph node, now 0.9 cm.*Interval decreased size of the enlarged retroperitoneal lymph [...] stent (axial image 69 and coronal image 80).BONES: No aggressive osseous lesion or acute fracture. SOFT TISSUES: Unremarkable. IMPRESSION: 1. Interval decrease in the peritoneal carcinomatosis and peritoneal/right cardiophrenic lymphadenopathy, compatible with response to treatment.2. Stable appearance of the descending colon stent, questionable mild interval increase in the soft tissue prominence adjacent to the superior and posterolateral aspect of the stent, advise attention to this region on subsequent follow-ups.3. Stable left adrenal nodule.4. Stable enhancing 1 cm lesion in the right hepatic lobe.5. Multiple stable small pulmonary nodules and nodules measuring up to 5 mm which cannot be evaluated for interval change. Advise continued attention on subsequent follow-ups.6. Interval decrease in the left pleural effusion and adjacent atelectasis.7. Mild nonspecific heterogeneity at the medial aspect of the spleen, advise attention on subsequent follow-ups. Signed: Og Soriano MDR[facility] Verified Date/Time: 12/25/2018 15:06:57 , PELVIS, WITH IV 2018-12-25 15:06:[address] CHEST, ABDOMEN, AND PELVIS WITH CONTRAST HISTORY: colon cancer metastasized to multiple sites COMPARISON: CTs of the chest abdomen and pelvis October 05, 2018 and July 17, 2018.TECHNIQUE:CT scan of the chest, abdomen, and pelvis WITH intravenous contrast, using standard protocol.Coronal and sagittal reformats are provided. IV CONTRAST: 150 cc of Isovue-300. RADIATION DOSE: Total DLP: 2792.97 mGy*cmDose modulation, iterative reconstruction, and/or weight based adjustment of the mA/kV was utilized to reduce the radiation dose to as low as reasonably achievable. COMPLICATIONS: None FINDINGS:Lines/tubes: Stable appearing right chest port, the tip near the confluence of the brachiocephalic veins. CHEST:Lungs and Airways: Right: *A 5 mm nodule abutting the major fissure (axial image 48), comparison is markedly limited given the previous size of the pleural effusion and adjacent atelectasis.*A punctate nodule near the major fissure (axial image 51), comparison is markedly limited given the previous size of the pleural effusion and adjacent atelectasis.*Stable punctate nodule in the right upper lobe adjacent to the minor fissure (axial image 52).*Stable 2 mm nodule adjacent to the lateral aspect of the minor fissure (axial image 53).*Punctate nodule adjacent to the major fissure (axial image 53), comparison is markedly limited given the previous size of the pleural effusion and adjacent atelectasis.*Stable punctate nodule along the minor fissure (axial image 55).*Stable 3 mm subpleural nodule in the anterior aspect of the middle lobe (axial image image 58).*Stable 3 mm calcified granuloma within the lower lobe (axial image 71). Pleura: Interval decreased size of the left pleural effusion and adjacent atelectasis, small residual. Heart and mediastinum: The thyroid gland is normal.The heart is normal, no pericardial effusion. ABDOMEN:HEPATOBILIARY: Stable 1 cm enhancing lesion in the right lobe of the liver, axial image 59.No biliary ductal dilatation. The gallbladder is unremarkable. SPLEEN: Subtle nonspecific heterogeneous density at the medial aspect, without a discrete well-defined mass. PANCREAS: No focal masses or ductal dilatation. ADRENALS: No right adrenal nodule.Stable 3.9 x 3.1 cm left adrenal nodule. KIDNEYS/URETERS: No hydronephrosis, stones, or solid mass lesions. PELVIS:The urinary bladder is partially decompressed, which limits evaluation. PERITONEUM / RETROPERITONEUM: *Interval decreased omental nodularity and thickening, 1.8 cm in thickness (axial image 70).*Resolution of the ascites. LYMPH NODES: *Decreased size of the right cardiophrenic lymph node, now 0.9 cm.*Interval decreased size of the enlarged retroperitoneal lymph [...] stent (axial image 69 and coronal image 80).BONES: No aggressive osseous lesion or acute fracture. SOFT TISSUES: Unremarkable. IMPRESSION: 1. Interval decrease in the peritoneal carcinomatosis and peritoneal/right cardiophrenic lymphadenopathy, compatible with response to treatment.2. Stable appearance of the descending colon stent, questionable mild interval increase in the soft tissue prominence adjacent to the superior and posterolateral aspect of the stent, advise attention to this region on subsequent follow-ups.3. Stable left adrenal nodule.4. Stable enhancing 1 cm lesion in the right hepatic lobe.5. Multiple stable small pulmonary nodules and nodules measuring up to 5 mm which cannot be evaluated for interval change. Advise continued attention on subsequent follow-ups.6. Interval decrease in the left pleural effusion and adjacent atelectasis.7. Mild nonspecific heterogeneity at the medial aspect of the spleen, advise attention on subsequent follow-ups. Signed: Og Soriano MDR[facility]ort Verified Date/Time: 12/25/2018 15:06:57 -CREATININE 2018-12-25 08:55:00 Test Item Value Reference Range Comments POC-CREATININE (BEAKER) (test 0.7 mg/dL 0.6-1.3 TESTED AT [facility] 7200 lzaw=6911) [facility] [address] POC-EGFR (BEAKER) (test 140 mL/min/1.73M2 cqdt=7886) TISSUE [id number] 13:08:00Surgical Pathology Report Case: [id number] Authorizing Provider: Jessi Turcios MD Collected: 07/17/2018 5674 Ordering Location: [address] Received: 07/17/2018 1607 Service Pathologist: Allen Velazquez MD Specimen: Omentum 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 The diagnosis remains unchanged.IHC testing for all four MMR proteins was performed with appropriate controls.RESULTSMLH1: Intact nuclear expressionMSH2: Intact nuclear expressionMSH6: Intact nuclear expressionPMS2: Intact nuclear expressionJ[facility] InterpretationNo loss of nuclear expression of MMR proteins: low probability of microsatellite instability-high (MSI-H)# #There are exceptions to the above IHC interpretations.These results should not be considered in isolation, and clinical correlation with genetic counseling is recommended to assess the need for germline testing.Immunohistochemistry disclaimer:The immunohistochemistry test was developed and its performance characteristics determined by [facility], Pathology Laboratory. It has not been cleared [...] qualified to perform high complexity clinical laboratory testing.[id number] x 4Addendum electronically signed by Star Trejo MD on 07/20/2018 at 10:07 AMPART A OMENTAL BIOPSY:MODERATELY DIFFERENTIATED ADENOCARCINOMA.SEE DIAGNOSTIC COMMENT. Signing Pathologist Direct Phone Line: [phone] signed by Allen Velazquez MD on 07/19/2018 at 7:35 AMPreliminary result electronically signed by Allen Velazquez MD on 07/18/2018 at 7:55 AMImmunohistochemical studies performed on block A1 demonstrate the tumor cells to be positive for CK20, CDX2 , and CK19. They are negative for CK7, TTF1, and PSA. The immunoprofile is nonspecific but is most compatible with an adenocarcinoma of colonic origin. Correlation with clinical findings and imaging studies is required for complete interpretation.[id number], 76030, [id number] givenOmentum The specimen is received in a formalin-filled container and labeledwith the patient's information labeled "omentum" and consists of four off white core biopsies ranging from 0.2 to 0.4 cm, submitted entirely A1.CG/pl PERFORMED.The following special studies were performed on this case and the interpretation is incorporated in the diagnostic report above:BLOCK A1- CK7,CK20, CDX2, TTF1, PSA, CL26Dzp immunohistochemistry test was developed and its performance characteristics determined by [facility], Pathology Laboratory. It has not been cleared [...] qualified to perform high complexity clinical laboratory testing.POCT-GLUCOSE [id number] 12:55:00 Test Item Value Reference Range Comments POC-GLUCOSE METER (BEAKER) 115 mg/dL 70-110 TESTED AT [address] (test mvvx=1592) [facility] [address] POCT-GLUCOSE [id number] 08:52:00 Test Item Value Reference Range Comments POC-GLUCOSE METER (BEAKER) 137 mg/dL 70-110 TESTED AT [facility] [address] (test iczk=7873) [facility] [address] CARCINOEMBRYONIC ANTIGEN (CEA)2018-09-13 07:11:00 Test Item Value Reference Range Comments CARCINOEMBRYONIC ANTIGEN (BEAKER) (test 1302.5 ng/mL 0.0-5.0 xugi=192) [id number] 07:04:00 Test Item Value Reference Range Comments MAGNESIUM (BEAKER) (test fibm=069) 1.7 mg/dL 1.6-2.6 BASIC METABOLIC [id number] 07:04:00 Test Item Value Reference Range Comments SODIUM (BEAKER) (test 139 meq/L 136-145 klly=944) POTASSIUM (BEAKER) (test 3.5 meq/L 3.5-5.1 chzx=246) CHLORIDE (BEAKER) (test 105 meq/L 98-107 kibn=982) CO2 (BEAKER) (test 26 meq/L 22-29 hsnk=076) BLOOD UREA NITROGEN 10 mg/dL 7-21 (BEAKER) (test vfvu=430) CREATININE (BEAKER) (test 0.77 mg/dL 0.57-1.25 tmkt=806) GLUCOSE RANDOM (BEAKER) 135 mg/dL 70-105 (test bdca=432) CALCIUM (BEAKER) (test 8.9 mg/dL 8.4-10.2 eqsc=922) EGFR (BEAKER) (test 126 mL/min/1.73 sq m ESTIMATED GFR IS NOT mtun=7301) ACCURATE CREATININE CLEARANCE IN PREDICTING GLOMERULAR FILTRATION RATE. ESTIMATED GFR IS NOT APPLICABLE FOR DIALYSIS PATIENTS. HEPATIC FUNCTION [id number] 07:04:00 Test Item Value Reference Range Comments TOTAL PROTEIN (BEAKER) (test iiir=599) 7.4 gm/dL 6.0-8.3 ALBUMIN (BEAKER) (test nfiz=2998) 3.9 g/dL 3.5-5.0 BILIRUBIN TOTAL (BEAKER) (test nsyu=182) 0.6 mg/dL 0.2-1.2 BILIRUBIN DIRECT (BEAKER) (test cnjt=524) 0.3 mg/dL 0.1-0.5 ALKALINE PHOSPHATASE (BEAKER) (test svtp=572) 63 U/L 40-150 AST (SGOT) (BEAKER) (test fzgn=520) 23 U/L 5-34 ALT (SGPT) (BEAKER) (test aqrb=996) 37 U/L 6-55 CBC W/PLT COUNT & AUTO [id number] 06:29:00 Test Item Value Reference Range Comments WHITE BLOOD CELL COUNT (BEAKER) (test lqzq=192) 9.8 K/ L 3.5-10.5 RED BLOOD CELL COUNT (BEAKER) (test zfai=507) 4.61 M/ L 4.63-6.08 HEMOGLOBIN (BEAKER) (test oqps=120) 12.9 GM/DL 13.7-17.5 HEMATOCRIT (BEAKER) (test mehp=236) 41.0 % 40.1-51.0 MEAN CORPUSCULAR VOLUME (BEAKER) (test yuco=914) 88.9 fL 79.0-92.2 MEAN CORPUSCULAR HEMOGLOBIN (BEAKER) (test 28.0 pg 25.7-32.2 gala=056) MEAN CORPUSCULAR HEMOGLOBIN CONC (BEAKER) (test 31.5 GM/DL 32.3-36.5 xves=063) RED CELL DISTRIBUTION WIDTH (BEAKER) (test 13.0 % 11.6-14.4 eqgl=476) PLATELET COUNT (BEAKER) (test wjpl=733) 285 K/CU MM 150-450 MEAN PLATELET VOLUME (BEAKER) (test tchg=393) 11.3 fL 9.4-12.4 NUCLEATED RED BLOOD CELLS (BEAKER) (test 0 /100 WBC 0-0 pcri=737) NEUTROPHILS RELATIVE PERCENT (BEAKER) (test 69 % quly=090) LYMPHOCYTES RELATIVE PERCENT (BEAKER) (test 18 % qjlz=519) MONOCYTES RELATIVE PERCENT (BEAKER) (test 11 % vefn=278) EOSINOPHILS RELATIVE PERCENT (BEAKER) (test 2 % etbm=513) BASOPHILS RELATIVE PERCENT (BEAKER) (test 1 % eypr=174) NEUTROPHILS ABSOLUTE COUNT (BEAKER) (test 6.71 K/ L 1.78-5.38 qgfh=939) LYMPHOCYTES ABSOLUTE COUNT (BEAKER) (test 1.72 K/ L 1.32-3.57 sqzt=254) MONOCYTES ABSOLUTE COUNT (BEAKER) (test 1.10 K/ L 0.30-0.82 twxj=148) EOSINOPHILS ABSOLUTE COUNT (BEAKER) (test 0.17 K/ L 0.04-0.54 ajnt=732) BASOPHILS ABSOLUTE COUNT (BEAKER) (test 0.06 K/ L 0.01-0.08 hiix=102) IMMATURE GRANULOCYTES-RELATIVE PERCENT (BEAKER) 0 % 0-1 (test syex=5614) POCT-GLUCOSE [id number] 01:02:00 Test Item Value Reference Range Comments POC-GLUCOSE METER (BEAKER) 130 mg/dL 70-110 TESTED AT [address] (test uhrj=5906) [facility] [address] POCT-GLUCOSE [id number] 17:48:00 Test Item Value Reference Range Comments POC-GLUCOSE METER (BEAKER) 119 mg/dL 70-110 TESTED AT [address] (test jmun=7029) [facility] [address] POCT-GLUCOSE [id number] 12:27:00 Test Item Value Reference Range Comments POC-GLUCOSE METER (BEAKER) 154 mg/dL 70-110 TESTED AT [address] (test bnkc=5238) [facility] [address] POCT-GLUCOSE [id number] 07:44:00 Test Item Value Reference Range Comments POC-GLUCOSE METER (BEAKER) 243 mg/dL 70-110 TESTED AT [address] (test rbrn=3176) [place] [id number] 06:49:00 Test Item Value Reference Range Comments MAGNESIUM (BEAKER) (test gggw=995) 1.8 mg/dL 1.6-2.6 BASIC METABOLIC [id number] 06:49:00 Test Item Value Reference Range Comments SODIUM (BEAKER) (test 138 meq/L 136-145 hhuf=979) POTASSIUM (BEAKER) (test 3.3 meq/L 3.5-5.1 hzul=718) CHLORIDE (BEAKER) (test 103 meq/L 98-107 nyam=242) CO2 (BEAKER) (test 27 meq/L 22-29 koyt=653) BLOOD UREA NITROGEN 18 mg/dL 7-21 (BEAKER) (test gviu=604) CREATININE (BEAKER) (test 1.08 mg/dL 0.57-1.25 twqr=414) GLUCOSE RANDOM (BEAKER) 139 mg/dL 70-105 (test nxlp=621) CALCIUM (BEAKER) (test 8.6 mg/dL 8.4-10.2 iwrt=356) EGFR (BEAKER) (test 85 mL/min/1.73 sq m ESTIMATED GFR IS NOT mbjn=6837) ACCURATE CREATININE CLEARANCE IN PREDICTING GLOMERULAR FILTRATION RATE. ESTIMATED GFR IS NOT APPLICABLE FOR DIALYSIS PATIENTS. CBC W/PLT COUNT & AUTO [id number] 06:29:00 Test Item Value Reference Range Comments WHITE BLOOD CELL COUNT (BEAKER) (test vefc=023) 9.6 K/ L 3.5-10.5 RED BLOOD CELL COUNT (BEAKER) (test pmdn=823) 4.04 M/ L 4.63-6.08 HEMOGLOBIN (BEAKER) (test xcju=015) 11.5 GM/DL 13.7-17.5 HEMATOCRIT (BEAKER) (test zold=884) 36.5 % 40.1-51.0 MEAN CORPUSCULAR VOLUME (BEAKER) (test vgqy=513) 90.3 fL 79.0-92.2 MEAN CORPUSCULAR HEMOGLOBIN (BEAKER) (test 28.5 pg 25.7-32.2 ybqd=659) MEAN CORPUSCULAR HEMOGLOBIN CONC (BEAKER) (test 31.5 GM/DL 32.3-36.5 lzpp=828) RED CELL DISTRIBUTION WIDTH (BEAKER) (test 13.1 % 11.6-14.4 ngpw=804) PLATELET COUNT (BEAKER) (test rhel=417) 238 K/CU MM 150-450 MEAN PLATELET VOLUME (BEAKER) (test feca=001) 11.3 fL 9.4-12.4 NUCLEATED RED BLOOD CELLS (BEAKER) (test 0 /100 WBC 0-0 qqbp=048) NEUTROPHILS RELATIVE PERCENT (BEAKER) (test 71 % ztrm=459) LYMPHOCYTES RELATIVE PERCENT (BEAKER) (test 15 % dhig=755) MONOCYTES RELATIVE PERCENT (BEAKER) (test 12 % ztsg=511) EOSINOPHILS RELATIVE PERCENT (BEAKER) (test 2 % phfd=534) BASOPHILS RELATIVE PERCENT (BEAKER) (test 1 % wdty=670) NEUTROPHILS ABSOLUTE COUNT (BEAKER) (test 6.74 K/ L 1.78-5.38 gsin=412) LYMPHOCYTES ABSOLUTE COUNT (BEAKER) (test 1.42 K/ L 1.32-3.57 zfhe=467) MONOCYTES ABSOLUTE COUNT (BEAKER) (test 1.17 K/ L 0.30-0.82 bybx=559) EOSINOPHILS ABSOLUTE COUNT (BEAKER) (test 0.14 K/ L 0.04-0.54 uxma=186) BASOPHILS ABSOLUTE COUNT (BEAKER) (test 0.06 K/ L 0.01-0.08 clci=617) IMMATURE GRANULOCYTES-RELATIVE PERCENT (BEAKER) 0 % 0-1 (test subf=8154) POCT-GLUCOSE [id number] 00:36:00 Test Item Value Reference Range Comments POC-GLUCOSE METER (BEAKER) 141 mg/dL 70-110 TESTED AT [address] (test stlp=8690) [address], [employer] IN OR/30 MINUTE [id number] 19:40:00Reason for exam:-> DURING PROCEDUREBRONCHFINAL REPORT Fluoroscopy 5 views intraoperative 09/11/2018 7:39 PM CLINICAL HISTORY: Instrument localization COMPARISON: None available IMPRESSION: Please correlate imaging report findings with the procedure note prepared by Dr. Cordova, as an intra-procedure imaging consultation was not requested. Reported fluoroscopy time: 525.3 seconds. Signed : Chau Gasca Verified Date/Time: 09/11/2018 19:40:28 Reading Location: [facility] Radiology Reading Room POCT-GLUCOSE [id number] 18:32: 00 Test Item Value Reference Range Comments POC-GLUCOSE METER (BEAKER) 116 mg/dL 70-110 TESTED AT [address] (test svqn=0979) [place] [address] POCT-GLUCOSE [id number] 12:08:00 Test Item Value Reference Range Comments POC-GLUCOSE METER (BEAKER) 156 mg/dL 70-110 TESTED AT [address] (test cqxx=9850) [place] [address] [id number] 09:06:00 Test Item Value Reference Range Comments MAGNESIUM (BEAKER) (test wypz=981) 1.9 mg/dL 1.6-2.6 [id number] 09:06:00 Test Item Value Reference Range Comments PHOSPHORUS (BEAKER) (test kdmp=267) 3.8 mg/dL 2.3-4.7 BASIC METABOLIC [id number] 06:49:00 Test Item Value Reference Range Comments SODIUM (BEAKER) (test 139 meq/L 136-145 viub=913) POTASSIUM (BEAKER) (test 3.0 meq/L 3.5-5.1 btbc=073) CHLORIDE (BEAKER) (test 100 meq/L 98-107 qbpo=428) CO2 (BEAKER) (test 28 meq/L 22-29 dmai=399) BLOOD UREA NITROGEN 13 mg/dL 7-21 (BEAKER) (test dyqt=858) CREATININE (BEAKER) (test 0.83 mg/dL 0.57-1.25 ftdg=670) GLUCOSE RANDOM (BEAKER) 135 mg/dL 70-105 (test xwam=123) CALCIUM (BEAKER) (test 9.2 mg/dL 8.4-10.2 dpuv=425) EGFR (BEAKER) (test 116 mL/min/1.73 sq m ESTIMATED GFR IS NOT zqqj=5606) ACCURATE CREATININE CLEARANCE IN PREDICTING GLOMERULAR FILTRATION RATE. ESTIMATED GFR IS NOT APPLICABLE FOR DIALYSIS PATIENTS. POCT-GLUCOSE [id number] 06:36:00 Test Item Value Reference Range Comments POC-GLUCOSE METER (BEAKER) 161 mg/dL 70-110 TESTED AT [address] (test jnje=9180) [facility] [address] CBC W/PLT COUNT & AUTO [id number] 06:28:00 Test Item Value Reference Range Comments WHITE BLOOD CELL COUNT (BEAKER) (test sked=346) 10.7 K/ L 3.5-10.5 RED BLOOD CELL COUNT (BEAKER) (test unqu=965) 4.72 M/ L 4.63-6.08 HEMOGLOBIN (BEAKER) (test fogt=970) 13.7 GM/DL 13.7-17.5 HEMATOCRIT (BEAKER) (test opio=004) 42.6 % 40.1-51.0 MEAN CORPUSCULAR VOLUME (BEAKER) (test lmed=782) 90.3 fL 79.0-92.2 MEAN CORPUSCULAR HEMOGLOBIN (BEAKER) (test 29.0 pg 25.7-32.2 btkz=124) MEAN CORPUSCULAR HEMOGLOBIN CONC (BEAKER) (test 32.2 GM/DL 32.3-36.5 kjxt=442) RED CELL DISTRIBUTION WIDTH (BEAKER) (test 12.9 % 11.6-14.4 ucgz=238) PLATELET COUNT (BEAKER) (test solt=084) 292 K/CU MM 150-450 MEAN PLATELET VOLUME (BEAKER) (test uodf=724) 11.3 fL 9.4-12.4 NUCLEATED RED BLOOD CELLS (BEAKER) (test 0 /100 WBC 0-0 fnoa=380) NEUTROPHILS RELATIVE PERCENT (BEAKER) (test 75 % qhms=417) LYMPHOCYTES RELATIVE PERCENT (BEAKER) (test 13 % udkh=350) MONOCYTES RELATIVE PERCENT (BEAKER) (test 11 % esuv=198) EOSINOPHILS RELATIVE PERCENT (BEAKER) (test 0 % fmxp=083) BASOPHILS RELATIVE PERCENT (BEAKER) (test 0 % nkih=310) NEUTROPHILS ABSOLUTE COUNT (BEAKER) (test 7.97 K/ L 1.78-5.38 xlzm=340) LYMPHOCYTES ABSOLUTE COUNT (BEAKER) (test 1.41 K/ L 1.32-3.57 lutt=841) MONOCYTES ABSOLUTE COUNT (BEAKER) (test 1.18 K/ L 0.30-0.82 egqh=377) EOSINOPHILS ABSOLUTE COUNT (BEAKER) (test 0.04 K/ L 0.04-0.54 imfe=225) BASOPHILS ABSOLUTE COUNT (BEAKER) (test 0.03 K/ L 0.01-0.08 ayug=909) IMMATURE GRANULOCYTES-RELATIVE PERCENT (BEAKER) 1 % 0-1 (test kyjy=9877) POCT-GLUCOSE [id number] 01:34:00 Test Item Value Reference Range Comments POC-GLUCOSE METER (BEAKER) 135 mg/dL 70-110 TESTED AT [facility] [address] (test okqn=5448) [facility] [address] POCT-GLUCOSE [id number] 09:00:00 Test Item Value Reference Range Comments POC-GLUCOSE METER (BEAKER) 195 mg/dL 70-110 TESTED AT [facility] [address] (test sotz=7494) [facility] [address] BLOOD [id number] 06:00:00 Test Item Value Reference Range Comments CULTURE (BEAKER) (test pehd=8513) No growth in 5 days BLOOD [id number] 06:00:00 Test Item Value Reference Range Comments CULTURE (BEAKER) (test mcna=7608) No growth in 5 days BASIC METABOLIC [id number] 05:43:00 Test Item Value Reference Range Comments SODIUM (BEAKER) (test 141 meq/L 136-145 inhc=878) POTASSIUM (BEAKER) (test 3.6 meq/L 3.5-5.1 kwsk=763) CHLORIDE (BEAKER) (test 106 meq/L 98-107 wuks=747) CO2 (BEAKER) (test 25 meq/L 22-29 ngsv=098) BLOOD UREA NITROGEN 9 mg/dL 7-21 (BEAKER) (test tjon=648) CREATININE (BEAKER) (test 0.80 mg/dL 0.57-1.25 ktgk=300) GLUCOSE RANDOM (BEAKER) 119 mg/dL 70-105 (test xqvf=206) CALCIUM (BEAKER) (test 8.9 mg/dL 8.4-10.2 goxt=349) EGFR (BEAKER) (test 121 mL/min/1.73 sq m ESTIMATED GFR IS NOT twwr=1361) ACCURATE CREATININE CLEARANCE IN PREDICTING GLOMERULAR FILTRATION RATE. ESTIMATED GFR IS NOT APPLICABLE FOR DIALYSIS PATIENTS. CBC W/PLT COUNT & AUTO [id number] 05:01:00 Test Item Value Reference Range Comments WHITE BLOOD CELL COUNT (BEAKER) (test zvoi=050) 7.2 K/ L 3.5-10.5 RED BLOOD CELL COUNT (BEAKER) (test gcec=804) 4.62 M/ L 4.63-6.08 HEMOGLOBIN (BEAKER) (test wjqi=517) 13.4 GM/DL 13.7-17.5 HEMATOCRIT (BEAKER) (test gamp=695) 43.7 % 40.1-51.0 MEAN CORPUSCULAR VOLUME (BEAKER) (test bfrc=278) 94.6 fL 79.0-92.2 MEAN CORPUSCULAR HEMOGLOBIN (BEAKER) (test 29.0 pg 25.7-32.2 yjsa=420) MEAN CORPUSCULAR HEMOGLOBIN CONC (BEAKER) (test 30.7 GM/DL 32.3-36.5 xhsz=633) RED CELL DISTRIBUTION WIDTH (BEAKER) (test 13.4 % 11.6-14.4 drim=362) PLATELET COUNT (BEAKER) (test gfjd=118) 224 K/CU MM 150-450 MEAN PLATELET VOLUME (BEAKER) (test tvpe=289) 11.5 fL 9.4-12.4 NUCLEATED RED BLOOD CELLS (BEAKER) (test 0 /100 WBC 0-0 gzcw=690) NEUTROPHILS RELATIVE PERCENT (BEAKER) (test 66 % wbbi=745) LYMPHOCYTES RELATIVE PERCENT (BEAKER) (test 19 % wpmz=814) MONOCYTES RELATIVE PERCENT (BEAKER) (test 10 % xdia=434) EOSINOPHILS RELATIVE PERCENT (BEAKER) (test 4 % ywwl=003) BASOPHILS RELATIVE PERCENT (BEAKER) (test 1 % qamd=308) NEUTROPHILS ABSOLUTE COUNT (BEAKER) (test 4.80 K/ L 1.78-5.38 pxqz=189) LYMPHOCYTES ABSOLUTE COUNT (BEAKER) (test 1.39 K/ L 1.32-3.57 hkhz=625) MONOCYTES ABSOLUTE COUNT (BEAKER) (test 0.72 K/ L 0.30-0.82 ifpo=535) EOSINOPHILS ABSOLUTE COUNT (BEAKER) (test 0.25 K/ L 0.04-0.54 fxfm=982) BASOPHILS ABSOLUTE COUNT (BEAKER) (test 0.05 K/ L 0.01-0.08 nojc=189) IMMATURE GRANULOCYTES-RELATIVE PERCENT (BEAKER) 0 % 0-1 (test zdhg=9261) POCT-GLUCOSE [id number] 22:22:00 Test Item Value Reference Range Comments POC-GLUCOSE METER (BEAKER) 171 mg/dL 70-110 TESTED AT [facility] [address] [facility] (test cfrr=8779) [facility] [address] ANG, TUNNEL CATH CENTRAL INS W/PORT [id number] 18:25:00Reason for exam:-> need for chemotherapy.FINAL REPORT Right internal jugular chest port insertion History: Patient requires access for chemotherapy administration. Modality: Sonography andfluoroscopy. Sedation: Versed 1.5 mg and fentanyl 50 mcg given intravenously for conscious sedation. Vital signs were monitored throughout the procedure by a nurse, and remained stable. Physician intra-service time was 30 minutes. Assistant Professor Of Dietetics: Singh Escamilla MD Motor Block Mechanic: Noé. Approach: Right internal jugular vein Estimated [...] needle into the right atrium. A 4 Turkmen micropuncture sheath was placed. A subcutaneous tunnel [...] ready for immediate use. Signed: Singh Escamilla MDReport Verified Date/Time: 07/19 18:25:29 Reading Location: [facility] P048 Angio Body Reading Room POCT- GLUCOSE [id number] 16:53:00 Test Item Value Reference Range Comments POC-GLUCOSE METER (BEAKER) 124 mg/dL 70-110 TESTED AT [address] (test kbrs=8227) [place] [address] TISSUE [id number] 16:29:00Surgical Pathology Report Case: [id number] Authorizing Provider: Julius Umanzor MD Collected: 07/18/2018 1502 Ordering Location: [address] Received: 07/19/2018 0751 Service Pathologist: Charo Brar MD Specimen: Large Intestine, Colon - Left/Descending , mass LEFT/DESCENDING COLON, BIOPSY: - INVASIVE MODERATELY DIFFERENTIATED ADENOCARCINOMA, SITUATED PREDOMINANTLY BENEATH THE MUSCULARIS MUCOSA, WITH FOCAL NECROSISMO/pl Signing Pathologist Direct Phone Line: [phone] signed by Charo Brar MD on 07/19/2018 at 4:29 [id number] e5Deizlxmd of colon, colonic mass Left descending colon [...] apoptosis. Other significant features are not noted.POCT-GLUCOSE [id number] 12:32:00 Test Item Value Reference Range Comments POC-GLUCOSE METER (BEAKER) 116 mg/dL 70-110 TESTED AT [address] (test xasw=8747) [place] [id number] POCT-GLUCOSE [id number] 09:22:00 Test Item Value Reference Range Comments POC-GLUCOSE METER (BEAKER) 130 mg/dL 70-110 TESTED AT [address] (test qzfz=8852) [facility] [address] BASIC METABOLIC [id number] 06:03:00 Test Item Value Reference Range Comments SODIUM (BEAKER) (test 138 meq/L 136-145 jkrv=181) POTASSIUM (BEAKER) (test 3.3 meq/L 3.5-5.1 obin=883) CHLORIDE (BEAKER) (test 104 meq/L 98-107 nzdz=344) CO2 (BEAKER) (test 23 meq/L 22-29 sryw=239) BLOOD UREA NITROGEN 6 mg/dL 7-21 (BEAKER) (test utfd=615) CREATININE (BEAKER) (test 0.76 mg/dL 0.57-1.25 lobd=316) GLUCOSE RANDOM (BEAKER) 122 mg/dL 70-105 (test arps=368) CALCIUM (BEAKER) (test 9.2 mg/dL 8.4-10.2 bwgy=239) EGFR (BEAKER) (test 128 mL/min/1.73 sq m ESTIMATED GFR IS NOT wjwp=0342) ACCURATE CREATININE CLEARANCE IN PREDICTING GLOMERULAR FILTRATION RATE. ESTIMATED GFR IS NOT APPLICABLE FOR DIALYSIS PATIENTS. PROTHROMBIN [id number] 05:34:00 Test Item Value Reference Range Comments PROTIME (BEAKER) (test clpw=635) 14.2 seconds 11.7-14.7 INR (BEAKER) (test oftc=969) 1.1 <=5.9 RECOMMENDED COUMADIN/WARFARIN INR THERAPY RANGESSTANDARD DOSE: 2.0 - 3.0 Includes: PROPHYLAXIS forvenous thrombosis, systemic embolization; TREATMENT for venous thrombosis and/or pulmonary embolus.HIGH RISK: Target INR is 2.5-3.5 for patients with mechanical heart valves.CBC W/PLT COUNT & AUTO [id number] 05:29:00 Test Item Value Reference Range Comments WHITE BLOOD CELL COUNT (BEAKER) (test asot=217) 9.1 K/ L 3.5-10.5 RED BLOOD CELL COUNT (BEAKER) (test rfqt=572) 4.61 M/ L 4.63-6.08 HEMOGLOBIN (BEAKER) (test twmm=801) 13.5 GM/DL 13.7-17.5 HEMATOCRIT (BEAKER) (test ivgu=053) 42.6 % 40.1-51.0 MEAN CORPUSCULAR VOLUME (BEAKER) (test pkjt=765) 92.4 fL 79.0-92.2 MEAN CORPUSCULAR HEMOGLOBIN (BEAKER) (test 29.3 pg 25.7-32.2 eqdn=986) MEAN CORPUSCULAR HEMOGLOBIN CONC (BEAKER) (test 31.7 GM/DL 32.3-36.5 bkxl=226) RED CELL DISTRIBUTION WIDTH (BEAKER) (test 13.3 % 11.6-14.4 emeu=300) PLATELET COUNT (BEAKER) (test cmhe=263) 235 K/CU MM 150-450 MEAN PLATELET VOLUME (BEAKER) (test zruc=832) 11.5 fL 9.4-12.4 NUCLEATED RED BLOOD CELLS (BEAKER) (test 0 /100 WBC 0-0 bimh=243) NEUTROPHILS RELATIVE PERCENT (BEAKER) (test 71 % ecaw=511) LYMPHOCYTES RELATIVE PERCENT (BEAKER) (test 14 % tlzn=549) MONOCYTES RELATIVE PERCENT (BEAKER) (test 11 % gbfu=369) EOSINOPHILS RELATIVE PERCENT (BEAKER) (test 2 % sijw=412) BASOPHILS RELATIVE PERCENT (BEAKER) (test 1 % jmkc=792) NEUTROPHILS ABSOLUTE COUNT (BEAKER) (test 6.48 K/ L 1.78-5.38 qmsv=976) LYMPHOCYTES ABSOLUTE COUNT (BEAKER) (test 1.31 K/ L 1.32-3.57 vijz=433) MONOCYTES ABSOLUTE COUNT (BEAKER) (test 0.98 K/ L 0.30-0.82 kpjg=386) EOSINOPHILS ABSOLUTE COUNT (BEAKER) (test 0.20 K/ L 0.04-0.54 fuur=482) BASOPHILS ABSOLUTE COUNT (BEAKER) (test 0.05 K/ L 0.01-0.08 vmvl=825) IMMATURE GRANULOCYTES-RELATIVE PERCENT (BEAKER) 1 % 0-1 (test uosr=3849) POCT-GLUCOSE [id number] 23:21:00 Test Item Value Reference Range Comments POC-GLUCOSE METER (BEAKER) 127 mg/dL 70-110 TESTED AT [address] (test rsfj=9346) [facility] [address] POCT-GLUCOSE [id number] 17:29:00 Test Item Value Reference Range Comments POC-GLUCOSE METER (BEAKER) 116 mg/dL 70-110 TESTED AT [address] (test zljx=1750) [facility] [address] POCT-GLUCOSE [id number] 15:41:00 Test Item Value Reference Range Comments POC-GLUCOSE METER (BEAKER) 122 mg/dL 70-110 TESTED AT [address] (test erfh=8899) [place] [id number] 15:40:00Medical Cytology Report Case: [id number] Authorizing Provider: Jessi Turcios MD Collected: 07/17/2018 1435 Ordering Location: [address] Received: 07/18/2018 0837 Service Pathologist: Alvin Arroyo MD Specimen: Peritoneal Fluid PERITONEAL FLUID (CYTOSPINS): - SUSPICIOUS FOR MALIGNANCY Signing Pathologist Direct Phone Line: [phone] signed by Alvin Arroyo MD on 07/18/2018 at 3:40 PMThere are a few atypical clusters that are suspicious for malignancy in a background of reactive mesothelial cells and chronic inflammation.[id number]; colon mass and omental nodules presents for CT-guided core biopsy of omentalnodulesPERITONEAL FLUIDPrepared 4 cytospins from 4 ml yellow blood-tinged fluidCollected: [id number]: [id number] [facility], Department of Pathology, [address] [place] [address], [facility], [facility], [address] [place] [phone], [facility], Department of Pathology, [address] [place] [address], LRFI-GLUCOSE [id number] 11:53:00 Test Item Value Reference Range Comments POC-GLUCOSE METER (BEAKER) 111 mg/dL 70-110 TESTED AT [address] (test ifwo=1163) [place] [address] POCT-GLUCOSE [id number] 06:48:00 Test Item Value Reference Range Comments POC-GLUCOSE METER (BEAKER) 124 mg/dL 70-110 TESTED AT [address] (test hcuw=7078) [place] [address] POCT-GLUCOSE [id number] 23:34:00 Test Item Value Reference Range Comments POC-GLUCOSE METER (BEAKER) 133 mg/dL 70-110 TESTED AT [address] (test tjvf=3503) [place] [id number] BODY FLUID CELL COUNT WITH [id number] 18:38:00 Test Item Value Reference Range Comments APPEARANCE FLUID (BEAKER) (test lgiu=519) Slightly Bloody Clear COLOR FLUID (BEAKER) (test dfmq=021) Yarelis Colorless, Straw RBC FLUID (BEAKER) (test ifqx=072) 9500 /cu mm <=1 ADJUSTED WBC FLUID (BEAKER) (test 1043 /cu mm <=5 izqy=1548) LINING CELLS (BEAKER) (test pomr=6728) 42 /cu mm <=1 NEUTROPHILS FLUID (BEAKER) (test dizr=0196) 17 % LYMPHS FLUID (BEAKER) (test ceov=171) 28 % MONO/MACROPHAGE FLUID (BEAKER) (test 55 % shok=973) EOSINOPHILS FLUID (BEAKER) (test mgom=867) 0 % BASO FLUID (BEAKER) (test vrfb=675) 0 % CONTAINER BODY FLUID (BEAKER) (test EDTA Tube kpuu=8168) POCT-GLUCOSE [id number] 17:54:00 Test Item Value Reference Range Comments POC-GLUCOSE METER (BEAKER) 145 mg/dL 70-110 TESTED AT [address] (test ahdf=9896) [place] [address] CT, BIOPSY, [id number] 16:57:00Reason for exam:->Need biopsy of omentum for [...] biopsy of omental nodules. Signed: Stephanie Duffy MDReport Verified Date/Time: 2017 16:57:37 Reading Location: [address] Body Reading Room ALBUMIN , BODY [id number] 16:12:00 Test Item Value Reference Range Comments ALBUMIN FLUID (BEAKER) (test dyom=279) 2.9 gm/dL Reference Range: No Normals Assay performance has not been validated for this type of specimen.PROTEIN, BODY [id number] 16:12:00 Test Item Value Reference Range Comments PROTEIN FLUID (BEAKER) (test june=830) 5.0 g/dL Absence of reference range indicates that normals have not been defined.Assay performance has not been validated for this type of specimen.PT/[id number] 13:18:00 Test Item Value Reference Range Comments PROTIME (BEAKER) (test chhb=980) 14.6 seconds 11.7-14.7 INR (BEAKER) (test hwko=701) 1.1 <=5.9 PARTIAL THROMBOPLASTIN TIME (BEAKER) (test 27.7 seconds 22.5-36.0 rpwd=029) RECOMMENDED COUMADIN/WARFARIN INR THERAPY RANGESSTANDARD DOSE: 2.0 - 3.0 Includes: PROPHYLAXIS forvenous thrombosis, systemic embolization; TREATMENT for venous thrombosis and/or pulmonary embolus.HIGH RISK: Target INR is 2.5-3.5 for patients with mechanical heart valves.CBC W/PLT COUNT & AUTO [id number] 13:08:00 Test Item Value Reference Range Comments WHITE BLOOD CELL COUNT (BEAKER) (test pyla=078) 10.4 K/ L 3.5-10.5 RED BLOOD CELL COUNT (BEAKER) (test jncc=390) 4.53 M/ L 4.63-6.08 HEMOGLOBIN (BEAKER) (test libv=635) 13.1 GM/DL 13.7-17.5 HEMATOCRIT (BEAKER) (test uhvp=378) 43.3 % 40.1-51.0 MEAN CORPUSCULAR VOLUME (BEAKER) (test xtwx=854) 95.6 fL 79.0-92.2 MEAN CORPUSCULAR HEMOGLOBIN (BEAKER) (test 28.9 pg 25.7-32.2 lctp=898) MEAN CORPUSCULAR HEMOGLOBIN CONC (BEAKER) (test 30.3 GM/DL 32.3-36.5 oxwe=983) RED CELL DISTRIBUTION WIDTH (BEAKER) (test 13.5 % 11.6-14.4 atag=491) PLATELET COUNT (BEAKER) (test ntzw=711) 236 K/CU MM 150-450 MEAN PLATELET VOLUME (BEAKER) (test ggec=275) 11.4 fL 9.4-12.4 NUCLEATED RED BLOOD CELLS (BEAKER) (test 0 /100 WBC 0-0 isjw=823) NEUTROPHILS RELATIVE PERCENT (BEAKER) (test 73 % tgjc=378) LYMPHOCYTES RELATIVE PERCENT (BEAKER) (test 15 % mzwh=377) MONOCYTES RELATIVE PERCENT (BEAKER) (test 10 % jyfi=668) EOSINOPHILS RELATIVE PERCENT (BEAKER) (test 1 % ldnb=872) BASOPHILS RELATIVE PERCENT (BEAKER) (test 1 % hqpp=973) NEUTROPHILS ABSOLUTE COUNT (BEAKER) (test 7.56 K/ L 1.78-5.38 czyp=337) LYMPHOCYTES ABSOLUTE COUNT (BEAKER) (test 1.60 K/ L 1.32-3.57 oawc=721) MONOCYTES ABSOLUTE COUNT (BEAKER) (test 1.01 K/ L 0.30-0.82 ztma=673) EOSINOPHILS ABSOLUTE COUNT (BEAKER) (test 0.14 K/ L 0.04-0.54 nykv=539) BASOPHILS ABSOLUTE COUNT (BEAKER) (test 0.06 K/ L 0.01-0.08 ujxi=721) IMMATURE GRANULOCYTES-RELATIVE PERCENT (BEAKER) 0 % 0-1 (test bsqa=0550) CT, [id number] 12:37:00CT abdomen pelvis with IV and PO [...] and without intravenous contrast. Signed: Stephanie Duffy MDReport Verified Date/Time: 07/17/2018 12:37:32 Reading Location: [address] Body Reading Room CT, CHEST, WITH [id number] 12:37:00FINAL REPORT TECHNIQUE: CT of the [...] and without intravenous contrast. Signed: Stephanie Duffy Verified Date/Time: 07/17/2018 12:37:32 Reading Location: [address] Body Reading Room 12 :37 PMPOCT-GLUCOSE [id number] 12:31:00 Test Item Value Reference Range Comments POC-GLUCOSE METER (BEAKER) 188 mg/dL 70-110 TESTED AT [facility] [address] [facility] (test xcaq=6303) [facility] [address] CBC W/PLT COUNT & AUTO [id number] 12:21:00 Test Item Value Reference Range Comments WHITE BLOOD CELL COUNT (BEAKER) (test awpf=342) 10.1 K/ L 3.5-10.5 RED BLOOD CELL COUNT (BEAKER) (test faum=300) 4.41 M/ L 4.63-6.08 HEMOGLOBIN (BEAKER) (test qvqn=373) 13.1 GM/DL 13.7-17.5 HEMATOCRIT (BEAKER) (test ijiz=500) 42.6 % 40.1-51.0 MEAN CORPUSCULAR VOLUME (BEAKER) (test mpbc=964) 96.6 fL 79.0-92.2 MEAN CORPUSCULAR HEMOGLOBIN (BEAKER) (test 29.7 pg 25.7-32.2 amva=187) MEAN CORPUSCULAR HEMOGLOBIN CONC (BEAKER) (test 30.8 GM/DL 32.3-36.5 mvoi=409) RED CELL DISTRIBUTION WIDTH (BEAKER) (test 14.0 % 11.6-14.4 zxai=818) PLATELET COUNT (BEAKER) (test pusp=002) 232 K/CU MM 150-450 MEAN PLATELET VOLUME (BEAKER) (test vgkt=368) 12.5 fL 9.4-12.4 NUCLEATED RED BLOOD CELLS (BEAKER) (test 0 /100 WBC 0-0 sgia=168) NEUTROPHILS RELATIVE PERCENT (BEAKER) (test 73 % rixv=505) LYMPHOCYTES RELATIVE PERCENT (BEAKER) (test 14 % qkqj=080) MONOCYTES RELATIVE PERCENT (BEAKER) (test 10 % mxwi=317) EOSINOPHILS RELATIVE PERCENT (BEAKER) (test 1 % fbiw=884) BASOPHILS RELATIVE PERCENT (BEAKER) (test 1 % znsz=594) NEUTROPHILS ABSOLUTE COUNT (BEAKER) (test 7.40 K/ L 1.78-5.38 xyfr=050) LYMPHOCYTES ABSOLUTE COUNT (BEAKER) (test 1.45 K/ L 1.32-3.57 tppl=140) MONOCYTES ABSOLUTE COUNT (BEAKER) (test 1.01 K/ L 0.30-0.82 upua=218) EOSINOPHILS ABSOLUTE COUNT (BEAKER) (test 0.13 K/ L 0.04-0.54 ysdb=393) BASOPHILS ABSOLUTE COUNT (BEAKER) (test 0.07 K/ L 0.01-0.08 vpxx=002) IMMATURE GRANULOCYTES-RELATIVE PERCENT (BEAKER) 0 % 0-1 (test aioz=7274) HEMOGLOBIN [id number] 10:07:00 Test Item Value Reference Range Comments HEMOGLOBIN A1C (BEAKER) (test damh=035) 5.6 % 4.3-6.1 BASIC METABOLIC [id number] 06:33:00 Test Item Value Reference Range Comments SODIUM (BEAKER) (test 138 meq/L 136-145 sigh=040) POTASSIUM (BEAKER) (test 3.4 meq/L 3.5-5.1 unvu=795) CHLORIDE (BEAKER) (test 105 meq/L 98-107 ftcy=296) CO2 (BEAKER) (test 24 meq/L 22-29 cdgo=947) BLOOD UREA NITROGEN 10 mg/dL 7-21 (BEAKER) (test ejug=601) CREATININE (BEAKER) (test 0.80 mg/dL 0.57-1.25 utgu=659) GLUCOSE RANDOM (BEAKER) 122 mg/dL 70-105 (test zeoc=509) CALCIUM (BEAKER) (test 8.5 mg/dL 8.4-10.2 tlop=985) EGFR (BEAKER) (test 121 mL/min/1.73 sq m ESTIMATED GFR IS NOT yaxf=4649) ACCURATE CREATININE CLEARANCE IN PREDICTING GLOMERULAR FILTRATION RATE. ESTIMATED GFR IS NOT APPLICABLE FOR DIALYSIS PATIENTS. POCT-GLUCOSE [id number] 05:17:00 Test Item Value Reference Range Comments POC-GLUCOSE METER (BEAKER) 133 mg/dL 70-110 TESTED AT [address] (test thlo=5824) [facility] [address] POCT-GLUCOSE [id number] 23:45:00 Test Item Value Reference Range Comments POC-GLUCOSE METER (BEAKER) 121 mg/dL 70-110 TESTED AT [place] [id number] [facility] (test mkzz=9952) [facility] [address] POCT-GLUCOSE [id number] 17:45:00 Test Item Value Reference Range Comments POC-GLUCOSE METER (BEAKER) 112 mg/dL 70-110 TESTED AT [address] (test yibj=5514) [place] [address] [id number] 14:30:00 Test Item Value Reference Range Comments ALBUMIN (BEAKER) (test tbls=1645) 3.9 g/dL 3.5-5.0 POCT-GLUCOSE [id number] 12:40:00 Test Item Value Reference Range Comments POC-GLUCOSE METER (BEAKER) 110 mg/dL 70-110 TESTED AT [address] (test vvpp=7244) [place] [address] POCT-GLUCOSE [id number] 08:32:00 Test Item Value Reference Range Comments POC-GLUCOSE METER (BEAKER) 137 mg/dL 70-110 TESTED AT [address] (test kzfj=2365) [place] [address] BASIC METABOLIC [id number] 06:10:00 Test Item Value Reference Range Comments SODIUM (BEAKER) (test 143 meq/L 136-145 xtou=362) POTASSIUM (BEAKER) (test 3.4 meq/L 3.5-5.1 tvph=286) CHLORIDE (BEAKER) (test 105 meq/L 98-107 mnvj=636) CO2 (BEAKER) (test 26 meq/L 22-29 peba=586) BLOOD UREA NITROGEN 13 mg/dL 7-21 (BEAKER) (test jsnr=516) CREATININE (BEAKER) (test 0.96 mg/dL 0.57-1.25 vyoh=820) GLUCOSE RANDOM (BEAKER) 90 mg/dL 70-105 (test btzz=075) CALCIUM (BEAKER) (test 9.1 mg/dL 8.4-10.2 xnrd=904) EGFR (BEAKER) (test 98 mL/min/1.73 sq m ESTIMATED GFR IS NOT ycem=2927) ACCURATE CREATININE CLEARANCE IN PREDICTING GLOMERULAR FILTRATION RATE. ESTIMATED GFR IS NOT APPLICABLE FOR DIALYSIS PATIENTS. POCT-GLUCOSE [id number] 00:28:00 Test Item Value Reference Range Comments POC-GLUCOSE METER (BEAKER) 108 mg/dL 70-110 TESTED AT [address] (test jjvn=2477) [place] [address] POCT-GLUCOSE [id number] 00:28:00 Test Item Value Reference Range Comments POC-GLUCOSE METER (BEAKER) 107 mg/dL 70-110 TESTED AT [facility] [address] [facility] (test ujbk=8799) [facility] [address] POCT-GLUCOSE [id number] 17:40:00 Test Item Value Reference Range Comments POC-GLUCOSE METER (BEAKER) 137 mg/dL 70-110 TESTED AT [address] (test ysgx=6626) [facility] [address] [place], [employer] IN OR/30 MINUTE [id number] 14:44:00INTRA OP IMAGINGReason for exam:->BOWEL OBSTRUCTIONFINAL REPORT Intraoperative fluoroscopy. CLINICAL HISTORY: BOWEL OBSTRUCTION.FINDINGS: Seven fluoroscopically acquired images were acquired by the referring physician. An intraoperative verbal report was not requested. Fluoroscopy was not performed by the undersigned. Fluoroscopy time: 129 seconds. Seven images. Signed: Rj Angel Verified Date/Time: 14:44:01 Reading Location: [address] Ortho Consult Reading Room POCT- GLUCOSE [id number] 12:28:00 Test Item Value Reference Range Comments POC-GLUCOSE METER (BEAKER) 154 mg/dL 70-110 TESTED AT [address] (test cvqn=3807) [facility] [address] CARCINOEMBRYONIC ANTIGEN (CEA)2018-07-15 11:45:00 Test Item Value Reference Range Comments CARCINOEMBRYONIC ANTIGEN (BEAKER) (test 766.0 ng/mL 0.0-5.0 haep=585) RAD, CHEST, 1 VIEW, NON [id number] 11:43:00Reason for exam:->pnaShould this be performed at [...] Mixon Verified Date/Time: 2017 11:43:39 Reading Location: [facility] B1 C013Y CT Body Reading Room HEPATIC FUNCTION [id number] 09:19:00 Test Item Value Reference Range Comments TOTAL PROTEIN (BEAKER) (test eoau=699) 8.1 gm/dL 6.0-8.3 ALBUMIN (BEAKER) (test aydo=2475) 4.4 g/dL 3.5-5.0 BILIRUBIN TOTAL (BEAKER) (test kzzx=015) 0.6 mg/dL 0.2-1.2 BILIRUBIN DIRECT (BEAKER) (test rzpr=511) 0.3 mg/dL 0.1-0.5 ALKALINE PHOSPHATASE (BEAKER) (test zpjn=129) 58 U/L 40-150 AST (SGOT) (BEAKER) (test rmtu=928) 16 U/L 5-34 ALT (SGPT) (BEAKER) (test ysvv=554) 19 U/L 6-55 POCT-GLUCOSE [id number] 08:21:00 Test Item Value Reference Range Comments POC-GLUCOSE METER (BEAKER) 130 mg/dL 70-110 TESTED AT [facility] [address] [facility] (test stvj=4355) [facility] [address] RESPIRATORY PANEL [id number] 07:29:00 Test Item Value Reference Range Comments HUMAN METAPNEUMOVIRUS (BEAKER) (test Not detected Not detected, Equivocal coob=3236) RHINOVIRUS (BEAKER) (test xrsn=9338) Not detected Not detected, Equivocal INFLUENZA A (BEAKER) (test oeda=0808) Not detected Not detected, Equivocal INFLUENZA A (NO SUBTYPE) (test Not detected, Equivocal owmo=1738) INFLUENZA A SUBTYPE H1 (BEAKER) (test Not detected, Equivocal nfpi=9178) INFLUENZA A SUBTYPE H3 (BEAKER) (test Not detected, Equivocal uyaw=1974) INFLUENZA A SUBTYPE H1-2009 (BEAKER) Not detected, Equivocal (test cwfe=4608) INFLUENZA B (BEAKER) (test leju=1849) Not detected Not detected, Equivocal RESPIRATORY SYNCYTIAL VIRUS (BEAKER) Not detected Not detected, Equivocal (test quqt=2423) PARAINFLUENZA VIRUS 1 (BEAKER) (test Not detected Not detected, Equivocal wfqe=8026) PARAINFLUENZA VIRUS 2 (BEAKER) (test Not detected Not detected, Equivocal udag=4882) PARAINFLUENZA VIRUS 3 (BEAKER) (test Not detected Not detected, Equivocal dkvy=4563) PARAINFLUENZA VIRUS 4 (BEAKER) (test Not detected Not detected, Equivocal qish=2123) ADENOVIRUS (BEAKER) (test stao=4236) Not detected Not detected, Equivocal CORONAVIRUS 229E (BEAKER) (test Not detected Not detected, Equivocal sjcv=5521) CORONAVIRUS HKU1 (BEAKER) (test Not detected Not detected, Equivocal pfns=2345) CORONAVIRUS NL63 (BEAKER) (test Not detected Not detected, Equivocal view=3701) CORONAVIRUS OC43 (BEAKER) (test Not detected Not detected, Equivocal phwi=0543) BORDETELLA PERTUSSIS (BEAKER) (test Not detected Not detected, Equivocal lfib=2521) CHLAMYDOPHILA PNEUMONIAE (BEAKER) (test Not detected Not detected, Equivocal aofi=1006) MYCOPLASMA PNEUMONIAE (BEAKER) (test Not detected Not detected, Equivocal smpq=0836) Other viruses and bacteria not targeted by this PCR panel cannot be excluded; therefore clinical correlation and follow up of serology, culture results, and other molecular studies is required. The results are not intended to be used as the sole means for clinical diagnosis or patient management decisions. This sample was tested at the [facility] using the [email or web address] Film[employer] Respiratory Panel. It is FDA cleared and has been verified and approved by the [facility] for clinical use on nasal swab specimens. It is not FDA-cleared for use on bronchial wash/lavage samples. However, for this sample type, validation was performed and test characteristics were determined and approved, by [facility] [employer] [facility] for clinical use under the Clinical Laboratory Improvement Amendments (CLIA) of 1988 requirements. Therefore, FDA clearance isnot required. This laboratory is CLIA-certified and [employer] ([employer])-accredited to perform high complexity testing.LEGIONELLA ANTIGEN, [id number] 04:44:00 Test Item Value Reference Range Comments L. PNEUMOPHILA SEROGP 1 Negative - see Negative for L. UR AG (BEAKER) (test comment pneumophila serogroup 1 qscb=7583) antigen, suggesting no recent or current infection with this serogroup. Legionellosis cannot be ruled out since other serogroups and species may cause disease. STREP PNEUMONIAE [id number] 04:43:00 Test Item Value Reference Range Comments STREP PNEUMONIAE ANTIGEN Presumptive negative for Presumptive negative for (BEAKER) (test pneumococcal pneumonia - pneumococcal pneumonia - tpwn=3270) see comment see commen Presumptive negative for pneumococcal pneumonia, suggesting no current or recent pneumococcal infection. Infection due to S. pneumoniae cannot be ruled out since the antigen present in the sample may be below the detection limit of the test.POCT-GLUCOSE [id number] 01:51:00 Test Item Value Reference Range Comments POC-GLUCOSE METER (BEAKER) 127 mg/dL 70-110 TESTED AT [facility] [address] [facility] (test ddrb=2177) [facility] [address] BASIC METABOLIC [id number] 00:38:00 Test Item Value Reference Range Comments SODIUM (BEAKER) (test 136 meq/L 136-145 exge=055) POTASSIUM (BEAKER) (test 3.3 meq/L 3.5-5.1 ycis=894) CHLORIDE (BEAKER) (test 101 meq/L 98-107 keul=485) CO2 (BEAKER) (test 22 meq/L 22-29 npcx=948) BLOOD UREA NITROGEN 11 mg/dL 7-21 (BEAKER) (test tcrl=834) CREATININE (BEAKER) (test 0.85 mg/dL 0.57-1.25 dyig=246) GLUCOSE RANDOM (BEAKER) 114 mg/dL 70-105 (test kslv=400) CALCIUM (BEAKER) (test 9.3 mg/dL 8.4-10.2 drzz=133) EGFR (BEAKER) (test 113 mL/min/1.73 sq m ESTIMATED GFR IS NOT npxi=1703) ACCURATE CREATININE CLEARANCE IN PREDICTING GLOMERULAR FILTRATION RATE. ESTIMATED GFR IS NOT APPLICABLE FOR DIALYSIS PATIENTS. RAPID INFLUENZA A&B [id number] 00:32:00 Test Item Value Reference Range Comments RAPID INFLUENZA A AG (BEAKER) (test Negative Negative, Inconclusive izay=4312) RAPID INFLUENZA B AG (BEAKER) (test Negative Negative, Inconclusive onao=2858) CBC W/PLT COUNT & AUTO [id number] 22:58:00 Test Item Value Reference Range Comments WHITE BLOOD CELL COUNT (BEAKER) (test ygcw=685) 10.9 K/ L 3.5-10.5 RED BLOOD CELL COUNT (BEAKER) (test twvn=034) 4.96 M/ L 4.63-6.08 HEMOGLOBIN (BEAKER) (test ahip=786) 14.5 GM/DL 13.7-17.5 HEMATOCRIT (BEAKER) (test pukb=702) 46.1 % 40.1-51.0 MEAN CORPUSCULAR VOLUME (BEAKER) (test mdda=284) 92.9 fL 79.0-92.2 MEAN CORPUSCULAR HEMOGLOBIN (BEAKER) (test 29.2 pg 25.7-32.2 irhe=754) MEAN CORPUSCULAR HEMOGLOBIN CONC (BEAKER) (test 31.5 GM/DL 32.3-36.5 oaqs=406) RED CELL DISTRIBUTION WIDTH (BEAKER) (test 13.9 % 11.6-14.4 rrar=201) PLATELET COUNT (BEAKER) (test sdhk=755) 277 K/CU MM 150-450 MEAN PLATELET VOLUME (BEAKER) (test xogm=912) 11.2 fL 9.4-12.4 NUCLEATED RED BLOOD CELLS (BEAKER) (test 0 /100 WBC 0-0 zptr=097) NEUTROPHILS RELATIVE PERCENT (BEAKER) (test 81 % lsib=155) LYMPHOCYTES RELATIVE PERCENT (BEAKER) (test 11 % cgqv=279) MONOCYTES RELATIVE PERCENT (BEAKER) (test 7 % oqbv=741) EOSINOPHILS RELATIVE PERCENT (BEAKER) (test 0 % bzoy=672) BASOPHILS RELATIVE PERCENT (BEAKER) (test 0 % pajo=700) NEUTROPHILS ABSOLUTE COUNT (BEAKER) (test 8.86 K/ L 1.78-5.38 noui=067) LYMPHOCYTES ABSOLUTE COUNT (BEAKER) (test 1.21 K/ L 1.32-3.57 tbxj=050) MONOCYTES ABSOLUTE COUNT (BEAKER) (test 0.79 K/ L 0.30-0.82 lezm=126) EOSINOPHILS ABSOLUTE COUNT (BEAKER) (test 0.01 K/ L 0.04-0.54 lbwa=801) BASOPHILS ABSOLUTE COUNT (BEAKER) (test 0.02 K/ L 0.01-0.08 bdpe=941) IMMATURE GRANULOCYTES-RELATIVE PERCENT (Azure MineralsAKER) 1 % 0-1 (test qnxu=9120)
--- OUTSIDE RECORDS SUMMARY | 2019-05-07 20:43 | XMS REPORT | Summary of Care ---
:1960 Author Organization [facility] [place] [address] Care Team Providers Name Role Phone Graham Goodwin MD Primary Care Provider Reason for Referral Consult, Test & Treat (Routine) Status Reason Specialty Diagnoses / Referred By Referred To Procedures Contact Contact Pending Consult, Endocrinology Diagnoses Uncontrolled type 2 diabetes mellitus with hyperglycemia Raymond Hernandez Test, and Procedures [place] OFFICE OUTPATIENT NEW 30 MINUTES MD Kyle Endocrinology Treat [address] [facility] [address] [place], [place] [address] [address] [address]; Phone: [phone] [phone] [place], [place] Fax: [phone] Reason for Visit Reason Comments Follow Up Encounter Details Date Type Department Care Team Description 05/07/2019 Office Visit [facility] Hematology BennettMiguel NP Follow Up and Oncology [address] [facility] [address] [facility] 7th Floor, [address] Floor, [address] [place] [address] [place] [address] Allergies No Known Allergiesdocumented as of this encounter (statuses as of 05/07/2019) Medications Medication Sig Dispensed Refills Start Date End Date Status glimepiride (AMARYL) 2 Take 2 mg by mouth 0 Active MG tablet every morning. carvedilol (COREG) Take 3.125 mg by 0 Active 3.125 MG tablet mouth 2 times daily (with meals). cyclobenzaprine Take 10 mg by 0 Active (FLEXERIL) 10 MG mouth 3 times tablet daily as needed for Muscle spasms. amlodipine (NORVASC) Take 10 mg by 0 Active 10 MG tablet mouth daily. ondansetron (ZOFRAN) 8 Take 1 Tab by 30 Tab 3 11/06/2018 Active mg tablet mouth every 8 hours as needed. For chemotherapy-induc ed nausea docusate sodium Take 1 Cap by 60 Cap 3 12/04/2018 Active (COLACE) 100 MG mouth two times capsule daily. lidocaine-prilocaine Apply 1 30 g 3 12/04/2018 Active (EMLA) 2.5-2.5 % cream application topically as needed. polyethylene glycol Take 17 g by mouth 1 Bottle 2 01/15/2019 Active (GLYCOLAX) powder daily as needed. Morphine Sulfate ER 15 Take 15 mg by 60 Each 0 03/12/2019 Active MG [id number]: mouth every 12 Colon cancer hours. metastasized to multiple sites, Cancer related pain hydrocodone-acetaminop Take 1 Tab by 120 Tab 0 04/23/2019 Active hen (NORCO) 10-325 MG mouth every 6 per tabletIndications: hours as needed Colon cancer for Pain. metastasized to Eprescribed multiple sites, Cancer related pain Tamsulosin HCl 0.4 MG TAKE 1 CAPSULE BY 30 Cap 3 05/04/2019 Active CAPSIndications: MOUTH EVERY DAY Benign prostatic hyperplasia with urinary frequency documented as of this encounter (statuses as of 05/07/2019) Active Problems Problem Noted Date Colon cancer metastasized to multiple sites 07/24/2018 documented as of this encounter (statuses as of 05/07/2019) Social History Tobacco Use Types Packs/Day Years Used Date Former Smoker Cigarettes Smokeless Tobacco: Former User Alcohol Use Drinks/Week oz/Week Comments Yes Alcohol Habits Answer Date Recorded How often do you have a drink containing alcohol? Not asked How many drinks containing alcohol do you have on a typical 5 or 6 07/24/2018 day when you are drinking? How often do you have six or more drinks on one occasion? Not asked Sex Assigned at Date Recorded Not on file Job Start Date Occupation Industry Not on file Not on file Not on file Travel History Travel Start Travel End No recent travel history available. documented as of this encounter Last Filed Vital Signs Vital Sign Reading Time Taken Comments Blood Pressure 113/71 05/07/2019 8:31 AM CDT Pulse 75 05/07/2019 8:31 AM CDT Temperature 36.7 C (98.1 F) 05/07/2019 8:31 AM CDT Respiratory Rate - - Oxygen Saturation - - Inhaled Oxygen Concentration - - Weight 138.2 kg (304 lb 9.6 oz) 05/07/2019 8:31 AM CDT Height 180.3 cm (5' 11") 05/07/2019 8:31 AM CDT Body Mass Index 42.48 05/07/2019 8:31 AM CDT documented in this encounter Patient Instructions Patient InstructionsAnusha Pavon CMA - 05/07/2019 9:00 AM [facility] [phone] FAX [phone] Please note that all labs and or imaging results will be discussed at the next office visit unless told otherwise. if a problem occurs after hours please contact our office and have physician customer liaison paged [phone] Patient Instructions: (to be completed before next visit) RTC 2 weeks with labs prior Endocrinology referral placed A1C add on for today's labs TELL US ABOUT YOUR EXPERIENCE You may receive an email or letter from [facility] via our partner, [employer]. This is a survey about your experience today. Your feedback is important to us so we can improve. If any question does not apply to your visit, please leave it blank. Our goal is to ensure you have an exceptional experience at [facility]. If for any reason you cannot rate your experience as very good, please let a member of our staff know so wecan make immediate improvements. Please don't hesitate to call if you have any questions or concerns before your appt. Thanks Anusha Pavon CMA II documented in this encounter Progress Notes Mirtha Armas RD, LD - 05/07/2019 9:00 AM CDT OUTPATIENT ONCOLOGY NUTRITION NOTE Shai Gonzalez Jr. is a 58 y.o. male referred by Dr. Hernandez for nutrition assessment and counseling due to elevated blood glucose. Participants: Patient and Visit Type: Initial nutrition assessment Oncology History: stage IV colon (dx 07/2018) -FOLFOX (1/22/19-01/29/19) -5FU/LV maintenance (02/21/19-ongoing) Subjective: (05/07/2019) BG steadily increasing over the month, now in the upper 300 range. Takes glimepiride but has never received formal diet counseling for diabetes. Diet recall reflects diet high in refined carbohydrates, saturated fats. Low in fruit and vegetable consumption and fiber. Reports using honey to angie foods and beverages as it is a natural sugar. Diet Recall: [place] side eggs, grits, sausage baked chicken, vegetables Steak or sausage or fried shrimp/fish, vegetables Snacks on fruit Dines out every day- popeyes, lubys, cook islander buffet Beverages: water, unsweet tea, juice, and whole/chocolate milk (16-32 oz) Objective: Past Medical History: Diagnosis Date Asthma Colon cancer HBP (high blood pressure) Labs: BG 358, A1c pending Ht Readings from Last 1 Encounters: 05/07/19 5' 11" (1.803 m) BMI: 42.6 Weight history: Wt Readings from Last 10 Encounters: 05/07/19 (!) 304 lb 9.6 oz (138.2 kg) 04/23/19 (!) 306 lb (138.8 kg) 04/09/19 (!) 305 lb (138.3 kg) 03/26/19 (!) 311 lb 9.6 oz (141.3 kg) 03/12/19 (!) 307 lb (139.3 kg) 02/28/19 (!) 301 lb 6.4 oz (136.7 kg) 02/12/19 (!) 305 lb 12.8 oz (138.7 kg) 01/29/19 (!) 309 lb (140.2 kg) 01/15/19 (!) 312 lb (141.5 kg) 01/01/19 (!) 313 lb 12.8 oz (142.3 kg) Usual Body Weight: 310# Polaris body weight: 75.3 kg (166 lb 0.1 oz) Adjusted ideal body weight: 100.4 kg (221 lb 7.1 oz) Estimated Nutrient Needs: 7188-0259 kcal/day (15-18 kcal/kg) 138-200 g protein/day (1-1.5 g/kg) Nutrient Intake Calorie needs met, protein needs unmet Nutrition Focused Physical Assessment Malnutrition Evidence Tool Etiology: None Nutrient Intake: Does not meet criteria Nutrient Indicator: Good PO intake Weight Loss: Does not meet criteria Subcutaneous Fat Loss: Does not meet criteria Muscle Loss: Does not meet criteria Supporting Evidence Fluid Accumulation: Does not meet criteria Videographer Strength: not assessed Malnutrition Evidence: Does not meet criteria for malnutrition at this time NUTRITION DIAGNOSIS: Food and nutrition related knowledge deficit related to stage IV colon cancer, uncontrolled diabetesas evidenced by pt report. Plan of Care: -Recommend consistent carbohydrate intake and reviewed portion sizing. -Reviewed food sources of carbohydrates and encouraged increased intake of fruits and non-starchy vegetables, fiber containing gains. Avoid high saturated fat foods, refined carbohydrates, and processed foods. Suggested eliminating sugar sweetened beverages from diet. -Recommend at least 30 minutes of physical activity daily. Teaching Assessment - Nutrition Knowledge: poor - Readiness to change: contemplation - Patient/family understanding of education: fair - Expected level of compliance: fair - Barriers to education: none Patient verbalizes understanding of plan and denies further nutrition related questions or concerns at this time. Dietitian will continue to monitor and remains available to address future nutrition related questions and concerns. Mirtha Armas, MS, RD, LD Registered Dietitian Azam Falcon [facility] Keanu, Miguel Morris NP - 05/07/2019 9:00 AM CDT Patient: Shai Gonzalez Jr. 1960 58 y.o. with stage IV colon cancer diagnosed at [facility], here for f/u 05/07/2019 S: Presents to clinic continuing on maintenance 5FU. Doing well with only complaint being continued numbness/tingling to fingertips and toes. Some mild problems with fine manipulation (buttons on shirt,etc), but not progressive. Glucose management concern. Not seeing endo. No CP/SOB, no N/V/D/C, no F/C/NS. ECOG PS 1 Course summary: - admitted to [facility] for obstipation - cScope 07/15/18 (Tasha@ [facility]): A malignant-appearing, intrinsic severe stenosis measuring 3 mm (inner diameter) was found in the descending colon and was non-traversed. This was stented with a 25 mm x 87 mm Ultraflex Precision stent under fluoroscopic guidance. Estimated blood loss was minimal. - CEA 766 on 07/15/18 - CT CAP 07/17/18 ([facility]): Metallic stent in the descending colon. No bowel obstruction. Peritonealcarcinomatosis with small volume ascites. 3.9 cm left adrenal nodule. Enhancing lesion in the right hepatic lobe. Mildly prominent retroperitoneal lymph nodes. 3 mm pulmonary nodule in the right upper lobe. Small-moderate right pleural effusion. Biopsy + for mod diff adenocarcinoma, pMMR, KRAS mut + - omental biopsy (CT-guided) 07/17/18: pMMR moderately differentiated adenoCA of colorectal origin. Ascites with suspicious cells - R thoracentesis 07/17/18 ([facility]): 1043 WBC, 9500 RBCs; fluid not sent for cytology. Protein 5, albumin 2.9 - paracentesis 07/18/18: cytology + for adenoCA - cScope 07/18/18: partially obstructing descending colon mass with stent in place - R chest port 07/19/18, was supposed to start chemo but lost insurance - admitted to [facility] in Sep 2018 for LBO -> cScope ([place]) 09/11/18 showed occluded stent -> Wallflex stent placed - CT CAP 10/05/18 - Progression of peritoneal carcinomatosis. Enlarging portacaval and periaortic lymph nodes. Enlarging right cardiophrenic lymph node concerning for metastasis. Very tiny right pulmonary nodules bear watching to exclude developing metastases. Stable right pleural effusion. Stable left adrenal nodule. Stable enhancing nodule in the right hepatic lobe. No new intrahepatic lesions have developed. Stable stent in the descending colon. Moderate burden of stool proximal to the stent. No obstruction. - FOLFOX #1 10/24, #2 11/06, #3 11/20, #4 12/04/18, #5 12/18/18 - CT CAP 12/25/18: Decreased size of peritoneal carcinomatosis and LAD. Otherwise stable overall, though with questionable mild interval increase in the soft tissue prominence adjacent to the superior and posterolateral aspect of the stent - FOLFOX #6 01/01, #7 4/15, #8 01/29 - 5FU/LV maintenance (no kelly secondary to colonic stent with prior obstruction) 02/12, 02/28, 03/12, 03/26, 04/09 - CT CAP 04/17/19: ongoing response - 5FU/LV maintenance (no kelly secondary to colonic stent with prior obstruction) 04/23, 05/07 Past Medical, Surgical, Family, Social History: unchanged No Known Allergies Current Outpatient Medications Medication Sig Dispense Refill amlodipine (NORVASC) 10 MG tablet Take 10 mg by mouth daily. carvedilol (COREG) 3.125 MG tablet Take 3.125 mg by mouth 2 times daily ( with meals). cyclobenzaprine (FLEXERIL) 10 MG tablet Take 10 mg by mouth 3 times daily as needed for Muscle spasms. docusate sodium (COLACE) 100 MG capsule Take 1 Cap by mouth two times daily. 60 Cap 3 glimepiride (AMARYL) 2 MG tablet Take 2 mg by mouth every morning. hydrocodone-acetaminophen (NORCO) 10-325 MG per tablet Take 1 Tab by mouth every 6 hours as needed for Pain. Eprescribed 120 Tab 0 lidocaine-prilocaine (EMLA) 2.5-2.5 % cream Apply 1 application topically as needed. 30 g 3 Morphine Sulfate ER 15 MG T12A Take 15 mg by mouth every 12 hours. 60 Each 0 ondansetron (ZOFRAN) 8 mg tablet Take 1 Tab by mouth every 8 hours as needed. For chemotherapy-induced nausea 30 Tab 3 polyethylene glycol (GLYCOLAX) powder Take 17 g by mouth daily as needed. 1 Bottle 2 Tamsulosin HCl 0.4 MG CAPS TAKE 1 CAPSULE BY MOUTH EVERY DAY 30 Cap 3 No current facility-administered medications for this visit. Review of Systems Constitutional: Negative for chills, fever and weight loss. HENT: Negative. Eyes: Negative. Respiratory: Positive for shortness of breath (chronic SAPP). Negative for cough. Cardiovascular: Positive for orthopnea (chronic (ANASTACIO)) and leg swelling ( chronic (mild)). Gastrointestinal: Negative for abdominal pain, blood in stool, constipation, diarrhea and vomiting. Genitourinary: Positive for frequency and urgency. Musculoskeletal: Positive for joint pain (chronic). Skin: Negative. Neurological: Positive for sensory change (mild numbness in toes, doesn't affect function; stable tofingers with minimal impact). Endo/Heme/Allergies: Negative. Psychiatric/Behavioral: Negative. BP 113/71 (BP Location: left arm, Patient Position: Sitting) | Pulse 75 | Temp 98.1 F (36.7 C)(Oral) | Ht 5' 11" (1.803 m) | Wt (!) 304 lb 9.6 oz ( 138.2 kg) | BMI 42.48 kg/m Wt Readings from Last 3 Encounters: 05/07/19 (!) 304 lb 9.6 oz (138.2 kg) 04/23/19 (!) 306 lb (138.8 kg) 04/09/19 (!) 305 lb (138.3 kg) Physical Exam Constitutional: He is oriented to person, place, and time and well-developed, well-nourished, and inno distress. No distress. Pleasant obese AA man accompanied by his , ambulatory HENT: Head: Normocephalic and atraumatic. Mouth/Throat: Oropharynx is clear and moist. No oropharyngeal exudate. Eyes: Conjunctivae are normal. Right eye exhibits no discharge. Left eye exhibits no discharge. No scleral icterus. Neck: Neck supple. No tracheal deviation present. Cardiovascular: Normal rate and regular rhythm. Exam reveals no friction rub. No murmur heard. Pulmonary/Chest: Effort normal. No stridor. No respiratory distress. He has no wheezes. He has no rales. He exhibits no tenderness. Port CDI Abdominal: Soft. Bowel sounds are normal. He exhibits distension. He exhibits no mass. There is no tenderness. There is no rebound and no guarding. Obese abd Musculoskeletal: Normal range of motion. He exhibits edema (trace BLE edema). He exhibits no tenderness or deformity. Lymphadenopathy: He has no cervical adenopathy. Neurological: He is alert and oriented to person, place, and time. He exhibits normal muscle tone. Coordination normal. Skin: Skin is warm and dry. No rash noted. He is not diaphoretic. No erythema. No pallor. Psychiatric: Mood, memory, affect and judgment normal. Pertinent labs/studies (other than those mentioned in the HPI): Lab Results Component Value Date WBC 8.1 05/07/2019 HGB 14.1 05/07/2019 HCT 42.8 05/07/2019 MCV 96.0 05/07/2019 PLT 176 05/07/2019 Lab Results Component Value Date ALT 30 05/07/2019 AST 22 05/07/2019 ALKPHOS 81 05/07/2019 BILITOT 0.8 05/07/2019 Lab Results Component Value Date CREATININE 0.91 05/07/2019 BUN 24 (H) 05/07/2019 NA 138 05/07/2019 K 4.6 05/07/2019 CL 99 (L) 05/07/2019 CO2 27 05/07/2019 Lab Results Component Value Date GLUCOSE 358 (H) 05/07/2019 Assessment/Plan: 1) biopsy-proven stage IV pMMR KRAS MUT L-sided colon cancer with malignant pleural effusion and malignant ascites (both cytology-proven). Delayed by insurance, of which he obtained October 2018. CT CAP 10/05/18 showed PD -> FOLFOX (copay for xeloda too high) -> [place] after 5 cycles with nice reduction in CEA -> maint 5FU with CT in April 2019 showing ongoing response - cont maintenance 5FU. 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 Chair [address], [address] [place] [address] 05/21/2019 Office Visit Hematology and Oncology Miguel Bennett, [employer] [address], [address] [place] [address] 05/21/2019 Appointment Infusion Center 12, [facility] Chair [address] Floor, [address] [place] [address] 05/23/2019 Appointment Infusion Center 12, [facility] Chair [address] Floor, [address] [place] [address] 06/05/2019 Appointment Infusion Center 12, [facility] Chair [address] Floor, [address] [place] [address] 06/07/2019 Appointment Infusion Center 12, [facility] Chair [address], [address] [place] [address] Name Type Priority Associated Diagnoses Order Schedule HEMOGLOBIN A1C Lab Routine Uncontrolled type 2 Ordered: 05/07/2019 diabetes mellitus with hyperglycemia CBC W/AUTO DIFF WITH Lab STAT Colon cancer metastasized Ordered: 05/07/2019 PLATELETS to multiple sites MAGNESIUM Lab STAT Colon cancer metastasized Ordered: 05/07/2019 to multiple sites Name Type Priority Associated Diagnoses Order Schedule AMB REF TO Outpatient Routine Uncontrolled type 2 Ordered: ENDOCRINOLOGY [facility] Referral diabetes mellitus 05/07/2019 with hyperglycemia Health Maintenance Due Date Last Done Comments TETANUS SHOT (ADULT) 12/12/1975 BMI FOLLOW UP PLAN 1978 HEPATITIS C SCREENING 1978 HIV SCREENING 1978 FLU VACCINE > 6 MONTHS 05/03/2019 08/02/2018 COLON CANCER SCREENIN09/12/2028 09/12/2018, 09/11/2018, COLONOSCOPY 07/18/2018, Additional history exists documented as of this encounter Results Not on filedocumented in this encounter Visit Diagnoses Diagnosis Colon cancer metastasized to multiple sites - Primary Malignant neoplasm of colon, unspecified site Uncontrolled type 2 diabetes mellitus with hyperglycemia documented in this encounter Insurance Payer Benefit Plan / Subscriber ID Effective Dates Phone Address Type Group [facility] - xxxxxxxxxxx 2018-Present [address] [place] [address] (Home) [id number] [place] [address] documented as of this encounter
--- NOTE | 2019-05-07 22:35 | EDPHYS ---
Physician Documentation [facility] Name: Shai Gonzalez Jr Age: 58 yrs Sex: Male : 1960 Arrival Date: 05/07/2019 Time: 20:40 Bed 12 Private MD: ED Physician Andre Blas HPI: 05/08 00:55 This 58 yrs old Black Male presents to ER via Ambulatory with complaints of Port kb Problem. 00:55 Pt reports he had his port accessed today for his home chemo pump. STates he is not kb supposed to do anything while the infusion is going, but he took the trash out and it accidentally pulled it out. Came here because he needs his port accessed again so that he can finish his transfusion. Onset: The symptoms/episode began/occurred just prior to arrival. Severity of symptoms: At their worst the symptoms were mild in the emergency department the symptoms are unchanged. The patient has not experienced similar symptoms in the past. The patient has not recently seen a physician. Historical: - Allergies: 05/07 21:14 No Known Allergies; ak1 - Home Meds: 21:14 amlodipine 10 mg tab 1 tab once daily [Active]; cyclobenzaprine 10 mg Oral tab 1 tab as ak1 needed [Active]; Hydrocodone-Acetaminophen Oral [Active]; Lasix 20 mg Oral tab 1 tab 2 times per day [Active]; tolterodine 4 mg Oral cp24 1 cap once daily [Active]; tramadol 50 mg Oral tab 1 tab as needed [Active]; - PMHx: 21:14 Asthma; Back pain; colon cancer; Diabetes - NIDDM; Gout; Hypertension; ak1 - PSHx: 21:14 Stent in bowel; ak1 - Immunization history:: Adult Immunizations unknown. - Social history:: Smoking status: Patient/guardian denies using tobacco. - Ebola Screening: : No symptoms or risks identified at this time. ROS: 05/08 00:53 Constitutional: Negative for fever, chills, and weight loss, ENT: Negative for injury, kb pain, and discharge, Neck: Negative for injury, pain, and swelling, Cardiovascular: Negative for chest pain, palpitations, and edema, Respiratory: Negative for shortness of breath, cough, wheezing, and pleuritic chest pain, Abdomen/GI: Negative for abdominal pain, nausea, vomiting, diarrhea, and constipation, Back: Negative for injury and pain, MS/Extremity: Negative for injury and deformity, Skin: Negative for injury, rash, and discoloration, Neuro: Negative for headache, weakness, numbness, tingling, and seizure. Exam: 00:54 Constitutional: This is a well developed, well nourished patient who is awake, alert, kb and in no acute distress. Head/Face: Normocephalic, atraumatic. ENT: Nares patent. No nasal discharge, no septal abnormalities noted. Tympanic membranes are normal and external auditory canals are clear. Oropharynx with no redness, swelling, or masses, exudates, or evidence of obstruction, uvula midline. Mucous membranes moist. Neck: Trachea midline, no thyromegaly or masses palpated, and no cervical lymphadenopathy. Supple, full range of motion without nuchal rigidity, or vertebral point tenderness. No Meningismus. Chest/axilla: Normal chest wall appearance and motion. Nontender with no deformity. No lesions are appreciated. Cardiovascular: Regular rate and rhythm with a normal S1 and S2. No gallops, murmurs, or rubs. Normal PMI, no JVD. No pulse deficits. Respiratory: Lungs have equal breath sounds bilaterally, clear to auscultation and percussion. No rales, rhonchi or wheezes noted. No increased work of breathing, no retractions or nasal flaring. Abdomen/GI: Soft, non-tender, with normal bowel sounds. No distension or tympany. No guarding or rebound. No evidence of tenderness throughout. Skin: Warm, dry with normal turgor. Normal color with no rashes, no lesions, and no evidence of cellulitis. Port noted to right upper chest MS/ Extremity: Pulses equal, no cyanosis. Neurovascular intact. Full, normal range of motion. Neuro: Awake and alert, GCS 15, oriented to person, place, time, and situation. Cranial nerves II-XII grossly intact. Motor strength 5/5 in all extremities. Sensory grossly intact. Cerebellar exam normal. Normal gait. Vital Signs: 05/07 21:11 BP 149 / 75; Pulse 72; Resp 18; Temp 97.2; Pulse Ox 96% on R/A; Weight 137.89 kg (R); ak1 Height 5 ft. 1 in. (154.94 cm) (R); Pain 0/10; 21:11 Body Mass Index 57.44 (137.89 kg, 154.94 cm) ak1 MDM: 22:18 Patient medically screened. kb 22:34 Data reviewed: vital signs, nurses notes. Data interpreted: Pulse oximetry: on room air kb is 96 %. Interpretation: normal. Counseling: I had a detailed discussion with the patient and/or guardian regarding: the historical points, exam findings, and any diagnostic results supporting the discharge/admit diagnosis, the need for outpatient follow up, a family practitioner, to return to the emergency department if symptoms worsen or persist or if there are any questions or concerns that arise at home. 05/07 22:18 Order name: Misc. Order: access port for pt's chemo, pt has his pump; Complete Time: kb 22:31 Administered Medications: No medications were administered Disposition: 05/08 07:09 Co-signature as Attending Physician, Andre Blas MD Available for consultation at ps1 all times. . Disposition: 05/07/19 22:35 Discharged to Home. Impression: Encounter for adjustment and management of infusion pump - reaccess port. - Condition is Stable. - Discharge Instructions: Implanted Port Home Guide. - Medication Reconciliation Form, Thank You Letter, Antibiotic Education, Prescription Opioid Use form. - Follow up: Emergency Department; When: As needed; Reason: Worsening of condition. Follow up: Private Physician; When: 2 - 3 days; Reason: Recheck today's complaints, Continuance of care, Re-evaluation by your physician. Signatures: Jenni Pemberton FNP-C FNP-Ckb Ballard, Brenda, RN RN bb Yarelis Overton RN RN ak1 Andre Blas MD MD ps1 Corrections: (The following items were deleted from the chart) 05/07 22:39 22:35 05/07/2019 22:35 Discharged to Home. Impression: Encounter for adjustment and bb management of infusion pump - reaccess port. Condition is Stable. Forms are Medication Reconciliation Form, Thank You Letter, Antibiotic Education, Prescription Opioid Use. Follow up: Emergency Department; When: As needed; Reason: Worsening of condition. Follow up: Private Physician; When: 2 - 3 days; Reason: Recheck today's complaints, Continuance of care, Re-evaluation by your physician. kb
--- NOTE | 2019-05-07 22:35 | ER ---
Nurse's Notes [facility] Name: Shai Gonzalez Jr Age: 58 yrs Sex: Male : 1960 Arrival Date: 05/07/2019 Time: 20:40 Bed 12 Private MD: Diagnosis: Encounter for adjustment and management of infusion pump-reaccess port Presentation: 05/07 21:12 Presenting complaint: Patient states: port access came out while pt was taking trash ak1 out at 1830. pt has chemo infusing for colon cancer. pt had port accessed today at [facility]. Transition of care: patient was not received from another setting of care. Onset of symptoms was May 07, 2019. Risk Assessment: Do you want to hurt yourself or someone else? Patient reports no desire to harm self or others. Initial Sepsis Screen: Does the patient meet any 2 criteria? No. Patient's initial sepsis screen is negative. Does the patient have a suspected source of infection? No. Patient's initial sepsis screen is negative. Care prior to arrival: None. 21:12 Method Of Arrival: Ambulatory ak1 21:12 Acuity: MARIA INES 3 ak1 Triage Assessment: 21:14 General: Appears in no apparent distress. Behavior is calm, cooperative. ak1 Historical: - Allergies: 21:14 No Known Allergies; ak1 - Home Meds: 21:14 amlodipine 10 mg tab 1 tab once daily [Active]; cyclobenzaprine 10 mg Oral tab 1 tab as ak1 needed [Active]; Hydrocodone-Acetaminophen Oral [Active]; Lasix 20 mg Oral tab 1 tab 2 times per day [Active]; tolterodine 4 mg Oral cp24 1 cap once daily [Active]; tramadol 50 mg Oral tab 1 tab as needed [Active]; - PMHx: 21:14 Asthma; Back pain; colon cancer; Diabetes - NIDDM; Gout; Hypertension; ak1 - PSHx: 21:14 Stent in bowel; ak1 - Immunization history:: Adult Immunizations unknown. - Social history:: Smoking status: Patient/guardian denies using tobacco. - Ebola Screening: : No symptoms or risks identified at this time. Screenin:32 Abuse screen: Denies threats or abuse. Nutritional screening: No deficits noted. bb Tuberculosis screening: No symptoms or risk factors identified. Fall Risk None identified. Assessment: 22:31 Reassessment: pt has rubalcaav needle dislodged from right chest wall. General: Appears in bb no apparent distress. obese, Behavior is calm, cooperative. Pain: Denies pain. Neuro: Level of Consciousness is awake, alert, obeys commands, Oriented to person, place, time, situation. Cardiovascular: No deficits noted. Respiratory: Respiratory effort is even, unlabored, Respiratory pattern is regular. GI: No signs and/or symptoms were reported involving the gastrointestinal system. Derm: Skin is dry, Skin is normal, Skin temperature is warm. Musculoskeletal: Circulation, motion, and sensation intact. Vital Signs: 21:11 BP 149 / 75; Pulse 72; Resp 18; Temp 97.2; Pulse Ox 96% on R/A; Weight 137.89 kg (R); ak1 Height 5 ft. 1 in. (154.94 cm) (R); Pain 0/10; 21:11 Body Mass Index 57.44 (137.89 kg, 154.94 cm) ak1 ED Course: 20:40 Patient arrived in ED. ag3 21:11 Arm band placed on Patient placed in waiting room, Patient notified of wait time. ak1 21:13 Triage completed. ak1 22:11 [facility]C [facility]. kb 22:11 Andre Blas MD is Attending Physician. kb 22:31 Caren Mancini, RN is Primary Nurse. bb 22:32 Patient has correct armband on for positive identification. Call light in reach. Adult bb w/ patient. 22:32 No provider procedures requiring assistance completed. Accessed Port-a-Cath. using bb accessed w/ # 20 Rubalcava needle, ,sterile technique, per hospital protocol. Good blood return. Flushes easily. 22:39 Patient did not have IV access during this emergency room visit. bb Administered Medications: No medications were administered Outcome: 22:35 Discharge ordered by . kb 22:39 Discharged to home ambulatory, with family. bb 22:39 Condition: stable 22:39 Discharge instructions given to patient, Instructed on discharge instructions, follow up and referral plans. Demonstrated understanding of instructions, follow-up care. 22:39 Patient left the ED. bb Signatures: Jenni Pemberton FNP-C FNP-Ckb Ballard, Brenda, RN RN bb Yarelis Overton RN RN ak1 Dannielle Packer ag3
[2019-05-07 23:35] VITALS: BP 149/75; TEMP 97.2; O2SAT 96
== END 2019-05-07 22:39 | disposition home or self-care (01) ==
LOC: ER 20:37
DX: Z45.1 Encounter for adjustment and management of infusion pump (principal); C18.9 Malignant neoplasm of colon, unspecified; I10 Essential (primary) hypertension; E11.9 Type 2 diabetes mellitus without complications
CPT/HCPCS: 99284

== ENCOUNTER 2019-06-15 08:22 | Emergency (ER) | payer OTHER ==
--- OUTSIDE RECORDS SUMMARY | 2019-06-15 08:26 | XMS REPORT | Clinical Summary ---
:1960 Author Organization [facility] Address [address] [place] [address] Care Team Providers Name Role Phone Pcp, [...] Perdomo, metastasized to multiple sites (HCC) 1, [facility] Room 04/11/2019 Hospital Computed Tomography Mary, Colon cancer Encounter Kyle Perdomo, metastasized to MD multiple sites (HCC) 1, [facility] Room 04/09/2019 Outside Orders Central Scheduling Mary Colon cancer Kyle Perdomo, metastasized to multiple sites (HCC) (Primary Dx) 12/25/2018 Hospital Computed Tomography Musher, Malignant neoplasm Encounter eboni Garcia MD unspecified part of 1, [facility] colon (HCC) [facility] Room 12/18/2018 Outside Orders Central Scheduling Mary, Malignant neoplasm eboni Garcia MD unspecified part of colon (HCC) (Primary Dx) 09/11/2018 Surgery Gastroenterology Shiva Cordova COLONOSCOPY MD Naomi 09/11/2018 Anesthesia Event Gastroenterology Jazmin Munoz, BUTCHER ALL ROUND 09/10/2018 [facility] Internal [facility], Large bowel obstruction (HCC ) (Primary Dx); - Encounter Medicine Renato Gage Colonic mass; 09/13/2018 MD DEBRA Type 2 diabetes mellitus with complication, without long-term current use of insulin (HCC); Changela, Essential hypertension MD Valentino Loyd, MD Cody 09/10/2018 Travel 09/10/2018 [facility] Internal Medicine Aftab, Encounter Ishaan Garcia MD 07/18/2018 Surgery Gastroenterology Julius Umanzor COLONOSCOPY MD Ron 07/18/2018 Anesthesia Event Gastroenterology Ishaan Mcmullen MD 07/15/2018 Anesthesia Event Kimberlyn Mehta, BUTCHER ALL ROUND 07/15/2018 Anesthesia Event Gastroenterology Kimberlyn Mehta, BUTCHER ALL ROUND 07/15/2018 Surgery Gastroenterology Shiva Cordova COLONOSCOPY,FLUOROSC MD Naomi OPIC STENT PLACEMENT 07/14/2018 [facility], Colon carcinoma metastatic to multiple sites (HCC); - Encounter Medicine Isis Bentley MD Morbid obesity (HCC); 07/20/2018 Tam, Preoperative cardiovascular examination; Jessi Essential hypertension; MD Heather Alcohol abuse; Colonic mass; Type 2 diabetes mellitus with complication, without long-term current use of insulin (HCC); Hypokalemia; Large bowel obstruction (HCC) 07/14/2018 Orders Only General Internal Medicine after 06/14/2018 Immunizations Name Dates Previously Given Next Due [...] Taken Blood Pressure 139/75 09/13/2018 11:50 AM LOSS PREVENTION AUDITOR Pulse 86 09/13/2018 11:50 AM LOSS PREVENTION AUDITOR Temperature 37.4 C (99.4 F) 09/13/2018 11:50 AM LOSS PREVENTION AUDITOR Respiratory Rate 18 09/13/2018 11:50 AM LOSS PREVENTION AUDITOR Oxygen Saturation 93% 09/13/2018 11:50 AM LOSS PREVENTION AUDITOR Inhaled Oxygen Concentration 21% 09/12/2018 12:32 AM LOSS PREVENTION AUDITOR Weight 143.1 kg (315 lb 6.4 oz) 09/10/2018 8:13 PM LOSS PREVENTION AUDITOR Height 180.3 cm (5' 11") 09/10/2018 8:13 PM LOSS PREVENTION AUDITOR Body Mass Index 43.99 09/10/2018 8:13 PM LOSS PREVENTION AUDITOR Plan of Treatment Not on file Implants Implanted Type Area Sandwich Hand Device Shelf Model / Serial / Identifier Expiration Lot Date Stent Colonic Single [id number] - [id number] Stents- N/A: [employer] SCI:[employer] 06/27/2019 [id number] / Implanted: Qty: 1 on 07/15/2018 by Shiva Cordova MD Periphe Colon / ral [id number] Wallflex Colonic Stent [id number] [employer] 10/25/2019 GTIN [id number] / Implanted: Qty: 1 on 09/11/2018 by Shiva Cordova MD SCIENTIFIC [id number] / [id number] Procedures Procedure Name Priority Date/Time Associated Comments [...] PROCEDURE - 09/20/2018 7:50 ENDOSCOPY SCAN AM LOSS PREVENTION AUDITOR RHYTHM STRIP - SCAN 09/20/2018 7:50 AM LOSS PREVENTION AUDITOR POCT-GLUCOSE METER Routine 09/13/2018 12:33 Results for this PM LOSS PREVENTION AUDITOR procedure are in the results section. POCT-GLUCOSE METER Routine 09/13/2018 7:48 Results for this AM LOSS PREVENTION AUDITOR procedure are in the results section. CBC W/PLT COUNT & AUTO Routine 09/13/2018 6:08 Results for this DIFFERENTIAL AM LOSS PREVENTION AUDITOR procedure are in the results section. MAGNESIUM STAT 09/13/2018 6:08 Results for this AM LOSS PREVENTION AUDITOR procedure are in the results section. CARCINOEMBRYONIC ANTIGEN Routine 09/13/2018 6:08 Results for this (CEA) AM LOSS PREVENTION AUDITOR procedure are in the results section. HEPATIC FUNCTION PANEL Routine 09/13/2018 6:08 Results for this AM LOSS PREVENTION AUDITOR procedure are in the results section. CBC W/PLT COUNT & AUTO Routine 09/13/2018 6:08 Results for this DIFFERENTIAL AM LOSS PREVENTION AUDITOR procedure are in the results section. BASIC METABOLIC PANEL Routine 09/13/2018 6:08 Results for this (7) AM LOSS PREVENTION AUDITOR procedure are in the results section. POCT-GLUCOSE METER Routine 09/13/2018 12:58 Results for this AM LOSS PREVENTION AUDITOR procedure are in the results section. POCT-GLUCOSE METER Routine 09/12/2018 5:34 Results for this PM LOSS PREVENTION AUDITOR procedure are in the results section. POCT-GLUCOSE METER Routine 09/12/2018 12:20 Results for this PM LOSS PREVENTION AUDITOR procedure are in the results section. POCT-GLUCOSE METER Routine 09/12/2018 7:18 Results for this AM LOSS PREVENTION AUDITOR procedure are in the results section. CBC W/PLT COUNT & AUTO Routine 09/12/2018 5:41 Results for this DIFFERENTIAL AM LOSS PREVENTION AUDITOR procedure are in the results section. MAGNESIUM STAT 09/12/2018 5:41 Results for this AM LOSS PREVENTION AUDITOR procedure are in the results section. CBC W/PLT COUNT & AUTO Routine 09/12/2018 5:41 Results for this DIFFERENTIAL AM LOSS PREVENTION AUDITOR procedure are in the results section. BASIC METABOLIC PANEL Routine 09/12/2018 5:41 Results for this (7) AM LOSS PREVENTION AUDITOR procedure are in the results section. POCT-GLUCOSE METER Routine 09/12/2018 12:27 Results for this AM LOSS PREVENTION AUDITOR procedure are in the results section. POCT-GLUCOSE METER Routine 09/11/2018 6:30 Results for this PM LOSS PREVENTION AUDITOR procedure are in the results section. 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 POCT-GLUCOSE METER Routine 09/11/2018 12:05 Results for this PM LOSS PREVENTION AUDITOR procedure are in the results section. POCT-GLUCOSE METER Routine 09/11/2018 6:31 Results for this AM LOSS PREVENTION AUDITOR procedure are in the results section. CBC W/PLT COUNT & AUTO Routine 09/11/2018 5:34 Results for this DIFFERENTIAL AM LOSS PREVENTION AUDITOR procedure are in the results section. PHOSPHORUS STAT 09/11/2018 5:34 Results for this AM LOSS PREVENTION AUDITOR procedure are in the results section. MAGNESIUM STAT 09/11/2018 5:34 Results for this AM LOSS PREVENTION AUDITOR procedure are in the results section. CBC W/PLT COUNT & AUTO Routine 09/11/2018 5:34 Results for this DIFFERENTIAL AM LOSS PREVENTION AUDITOR procedure are in the results section. BASIC METABOLIC PANEL Routine 09/11/2018 5:34 Results for this (7) AM LOSS PREVENTION AUDITOR procedure are in the results section. POCT-GLUCOSE METER Routine 09/11/2018 1:33 Results for this AM LOSS PREVENTION AUDITOR procedure are in the results section. RHYTHM [...] procedure are in the results section. 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 Routine 07/15/2018 2:18 Results [...] Colon obstruction AM CDT (HCC) Case Notes ASSOCIATE SOFTWARE APPLICATION ENGINEER CASE IN OR WITH FLUORO COLONOSCOPY,FLUOROSCOPIC STENT 07/15/2018 11:32 AM Colon obstruction (HCC) PLACEMENT CDT Case Notes ASSOCIATE SOFTWARE APPLICATION ENGINEER CASE IN OR WITH FLUORO TYPE AND [...] 364 ms QTC Calculation(Bazett) 435 ms P [place] 57 degrees R [place] 35 degrees T [place] 178 degrees Sinus rhythm with Premature atrial [...] 362 ms QTC Calculation(Bazett) 438 ms P [place] 66 degrees R [place] 39 degrees T [place] 127 degrees Sinus rhythm with Premature atrial [...] [facility] Routine 07/14/2018 10:29 PM CDT after 06/14/[address] Abdomen/Pelvis with IV Contrast (04/11/2019 9:52 AM CDT)Only the most recent of2 resultswithin the time period is included. Specimen Narrative Performed At FINAL REPORT [facility] EXAM: CT Chest, Abdomen and Pelvis WITH contrast INDICATION: Colon [id number] COMPARISON: 12/25/2018, 10/05/2018, 07/17/2018 TECHNIQUE: Chest, abdomen [...] 09:11:14 Performing Organization Address City/State/Zipcode Phone Number [facility] CT Chest with IV Contrast (04/11/2019 9:52 AM CDT)Only the most recent of3 resultswithin the time period is included. Specimen Narrative Performed At FINAL REPORT [facility] EXAM: CT Chest, Abdomen and Pelvis WITH contrast INDICATION: Colon [id number] COMPARISON: 12/25/2018, 10/05/2018, 07/17/2018 TECHNIQUE: Chest, abdomen [...] Left adrenal nodule is unchanged. Signed: Asa Mnejivar MD Report Verified Date/Time: 04/17/2019 09:11:14 Performing Organization Address City/State/Zipcode Phone Number [facility] CT abdomen without & with IV contrast (12/25/2018 12:22 PM CDT) Specimen Narrative Performed At FINAL REPORT [facility] CT CHEST, ABDOMEN, AND PELVIS WITH CONTRAST [...] 15:06:57 Performing Organization Address City/State/Zipcode Phone Number [facility] CT pelvis with IV contrast (12/25/2018 12:22 PM CDT) Specimen Narrative Performed At FINAL REPORT [facility] CT CHEST, ABDOMEN, AND PELVIS WITH CONTRAST [...] Verified Date/Time: 12/25/2018 15:06:57 Performing Organization Address City/[facility] Phone Number RIS POC-Creatinine (12/25/2018 8:52 AM CDT) POC-Creatinine 0.7Comment: TESTED AT [facility] 0.6 - 1.3 mg/dL [address] [address] POC-EGFR 140 mL/min/1.73M2 [facility] Specimen Blood Performing Organization Address [facility] Hospital[facility] [place] [address] BEE EKG-SCANNED (09/20/2018 7:50 AM LOSS PREVENTION AUDITOR)Only the most recent of2 resultswithin the time period is included. Narrative Performed At RHYTHM STRIP - SCAN (09/20/2018 7:50 AM LOSS PREVENTION AUDITOR)Only the most recent of2 resultswithin the time period is included. Narrative Performed At POC-Glucose meter (09/13/2018 12:33 PM LOSS PREVENTION AUDITOR)Only the most recent of35 resultswithin the time period is included. POC-Glucose Meter 115 (H)Comment: TESTED AT 70 - 110 mg/dL [address] [address] Specimen Blood Performing Organization Address [facility] Phone Number [place] [phone] CENTER CBC with platelet count + automated diff (09/13/2018 6:08 AM LOSS PREVENTION AUDITOR)Only the most recent of8 resultswithin the time period is included. WBC 9.8 3.5 - 10.5 K/L [facility] RBC 4.61 (L) 4.63 - 6.08 M/L [facility] Hemoglobin 12.9 (L) 13.7 - 17.5 GM/DL [facility] Hematocrit 41.0 40.1 - 51.0 % [facility] MCV 88.9 79.0 - 92.2 fL [facility] MCH 28.0 25.7 - 32.2 pg [facility] MCHC 31.5 (L) 32.3 - 36.5 GM/DL [facility] RDW 13.0 11.6 - 14.4 % [facility] Platelets 285 150 - 450 K/CU MM [facility] MPV 11.3 9.4 - 12.4 fL [facility] nRBC 0 0 - 0 /100 WBC [facility] % Neutros 69 % [facility] % Lymphs 18 % [facility] % Monos 11 % [facility] % Eos 2 % [facility] % Baso 1 % [facility] # Neutros 6.71 (H) 1.78 - 5.38 K/L [facility] # Lymphs 1.72 1.32 - 3.57 K/L [facility] # Monos 1.10 (H) 0.30 - 0.82 K/L [facility] # Eos 0.17 0.04 - 0.54 K/L [facility] # Baso 0.06 0.01 - 0.08 K/L [facility] Immature Granulocytes-Relative 0 0 - 1 % [facility] Specimen Blood Performing Organization Address City/[facility]/Zipcode Phone Number [address] [address] [phone] BEE Magnesium (09/13/2018 6:08 AM LOSS PREVENTION AUDITOR)Only the most recent of3 resultswithin the time period is included. Magnesium 1.7 1.6 - 2.6 mg/dL [facility] Specimen Blood Performing Organization Address City/[facility]/Zipcode Phone Number [address] [address] BEE Carcinoembryonic Antigen (CEA) (09/13/2018 6:08 AM LOSS PREVENTION AUDITOR)Only the most recent of2 resultswithin the time period is included. CEA, SERUM 1,302.5 (H) 0.0 - 5.0 ng/mL [facility] Specimen Blood Performing Organization Address City/[facility] Hospital[facility]m Phone Number [address] [address] [phone] BEE Hepatic function panel (09/13/2018 6:08 AM LOSS PREVENTION AUDITOR)Only the most recent of2 resultswithin the time period is included. Protein, Total 7.4 6.0 - 8.3 gm/dL [facility] Albumin 3.9 3.5 - 5.0 g/dL [facility] Total Bilirubin 0.6 0.2 - 1.2 mg/dL [facility] Bilirubin, Direct 0.3 0.1 - 0.5 mg/dL [facility] Alkaline Phosphatase 63 40 - 150 U/L [facility] AST 23 5 - 34 U/L [facility] ALT 37 6 - 55 U/L [facility] Specimen Blood Performing Organization Address City/[facility]/Zipcode Phone Number [facility] [address] [place] [address] [phone] CENTER Basic metabolic panel (09/13/2018 6:08 AM LOSS PREVENTION AUDITOR)Only the most recent of8 resultswithin the time period is included. Sodium 139 136 - 145 meq/L [facility] Potassium 3.5 3.5 - 5.1 meq/L [facility] Chloride 105 98 - 107 meq/L [facility] CO2 26 22 - 29 meq/L [facility] BUN 10 7 - 21 mg/dL [facility] Creatinine 0.77 0.57 - 1.25 mg/dL [facility] Glucose 135 (H) 70 - 105 mg/dL [facility] Calcium 8.9 8.4 - 10.2 mg/dL [facility] EGFR 126Comment: ESTIMATED GFR IS mL/min/1.[address] [facility] NOT ACCURATE CREATININE [facility] CLEARANCE IN PREDICTING GLOMERULAR FILTRATION RATE. ESTIMATED GFR IS NOT APPLICABLE FOR DIALYSIS PATIENTS. Specimen Blood Performing Organization Address [facility] Phone Number [facility] [address] [place], [place] [phone] BEE REPORT OF PROCEDURE - ENDOSCOPY URL (09/11/2018 6:00 PM LOSS PREVENTION AUDITOR) Narrative Performed At [place] 6th grade teacher in or 30 minute increments (09/11/2018 5:50 PM LOSS PREVENTION AUDITOR)Only the most recent of2 resultswithin the time period is included. Specimen Narrative Performed At FINAL REPORT [facility] Fluoroscopy 5 views intraoperative 09/11/2018 7:39 PM CLINICAL HISTORY: Instrument localization COMPARISON: None available IMPRESSION: Please correlate imaging report findings with the procedure note prepared by Dr. Cordova, as an intra-procedure imaging consultation was not requested. Reported fluoroscopy time: 525.3 seconds. Signed: Chau Gasca MD Report Verified Date/Time:09/11/2018 19:40:28 Reading Location: [facility] Radiology Reading Room Procedure Note Interface, External Ris In - 09/11/2018 7:42 PM LOSS PREVENTION AUDITOR FINAL REPORT Fluoroscopy 5 views intraoperative 09/11/2018 7:39 PM CLINICAL HISTORY: Instrument localization COMPARISON: None available IMPRESSION: Please correlate imaging report findings with the procedure note prepared by Dr. Cordova, as an intra-procedure imaging consultation was not requested. Reported fluoroscopy time: 525.3 seconds. Signed: Chau Gasca MD Report Verified Date/Time: 09/11/2018 19:40:28 Reading Location: [facility] Radiology Reading Room Performing Organization Address City/State/Zipcode Phone Number GE RIS Phosphorus (09/11/2018 5:34 AM LOSS PREVENTION AUDITOR) Phosphorus 3.8 2.3 - 4.7 mg/dL [facility] Specimen Blood Performing Organization Address City/[facility]/[place] [address] [phone] CENTER ECHOCARDIOGRAM REPORT - SCAN (07/19/2018 3:20 [...] stable. Physician intra-service time was 30 minutes. Eyeglass Frames Inspector:Singh Escamilla MD Tripper:Noé. Approach: Right internal jugular vein Estimated blood [...] needle into the right atrium. A 4 Russian micropuncture sheath was placed. A subcutaneous tunnel [...] MD Report Verified Date/Time:07/19/2018 18:25:29 Reading Location: [place] [address] Angio Body Reading Room Procedure Note Interface, [...] stable. Physician intra-service time was 30 minutes. Eyeglass Frames Inspector: Singh Escamilla MD Tripper: Noé. Approach: Right internal jugular vein Estimated [...] needle into the right atrium. A 4 Russian micropuncture sheath was placed. A subcutaneous tunnel [...] Report Verified Date/Time: 07/19/2018 18:25:29 Reading Location: [facility] P048 Angio Body Reading Room Performing Organization Address City/State/Zipcode Phone Number GE RIS ECHO W CONTRAST & DOPPLER (07/19/2018 9:18 AM CDT) Ejection Fraction [facility] ECHO HEARTLAB [facility] Specimen Narrative Performed At Transthoracic Echocardiography Report (TTE) [facility] ECHO HEARTLAB [facility] Demographics Patient Name Sunny LARA of Study 07/19/2018 [id number] GenderMale Visit Number [id number] RaceBlack [id number] Room Number 1551 Number Date of Birth1960 Referring Physician DEON TURCIOS Age57 year(s) 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 Tr Garnett [facility] AnalystIzokirstin Mahoney MD Physician Procedure Type of [...] of Study 07/19/2018 Gender Male Visit Number [id number] Race Black Room Number 1551 Number Date of 1960 Referring Physician DEON TURCIOS Age 57 year(s) 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 Tr Garnett RDCS 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 Helper Aramis Morton Interpreting Zeynep Mahoney MD Physician [...] City/State/Zipcode Phone Number [facility] ECHO HEARTLAB [facility] Prothrombin time/INR (07/19/2018 5:01 AM CDT) Protime 14.2 11.7 - 14.7 seconds [facility] INR 1.1 <=5.9 [facility] Specimen Blood Narrative Performed At [facility] RECOMMENDED COUMADIN/WARFARIN INR THERAPY RANGES STANDARD DOSE: 2.0 - 3.0 Includes: PROPHYLAXIS for venous thrombosis, systemic embolization; TREATMENT for venous thrombosis and/or pulmonary embolus. HIGH RISK: Target INR is 2.5-3.5 for patients with mechanical heart valves. Performing Organization Address City/[facility]/Zipcode Phone Number [facility] [address] [place] [address] [phone] CENTER REPORT OF PROCEDURE - ENDOSCOPY URL (07/18/2018 5:40 PM CDT) Narrative Performed At Tissue Exam (07/18/2018 3:02 PM CDT)Only the most recent of2 resultswithin the time period is included. Case Report Surgical Pathology Report Case: [id number] [facility] Authorizing Provider:Julius Umanzor MDCollected: 07/18/2018 1502 [facility] Ordering Location: [address] Received: 07/19/2018 0751 Service Pathologist: Charo Brar MD Specimen:Large Intestine, Colon - Left/Descending, mass DIAGNOSIS LEFT/DESCENDING COLON, BIOPSY: [facility] - INVASIVE MODERATELY DIFFERENTIATED ADENOCARCINOMA, SITUATED PREDOMINANTLY [facility] BENEATH THE MUSCULARIS MUCOSA, WITH FOCAL NECROSIS MO/pl Signing Pathologist Direct Phone Line: [phone] CPT Code(s) 74262 x1 [facility] CLINICAL HISTORY Stenosis of colon, colonic [facility] mass [facility] SPECIMEN SOURCE Left descending colon mass [facility] biopsy [facility] GROSS DESCRIPTION The specimen is received in [facility] a formalin-filled container [facility] labeled with the patient's information and labeled "left descending colon mass biopsy" and consists of multiple fragments of guido-red soft tissue ranging from less than 0.1 to 0.3 cm, submitted entirely in A1. CG/ew MICROSCOPIC DESCRIPTION The biopsy from the [facility] left/descending colon shows [facility] an invasive mostly moderately differentiated adenocarcinoma, with [...] not noted. Specimen Tissue Performing Organization Address City/[facility]/Zipcode Phone Number [facility] [address] [phone] BEE Body fluid cell count with differential (07/17/2018 3:45 PM CDT) Appearance Slightly Bloody (A) Clear [facility] Color Yarelis (A) Colorless, Straw [facility] RBCs 9,500 (H) <=1 /cu mm [facility] Adjusted WBC Count 1,043 (H) <=5 /cu mm [facility] Lining Cells 42 (H) <=1 /cu mm [facility] % Segs 17 % [facility] % Lymphs 28 % [facility] % Monos 55 % [facility] % Eos 0 % [facility] % Baso 0 % [facility] Container Body Fluid EDTA Tube [facility] Specimen Body Fluid Performing Organization Address City/[facility] Phone Number [address] [address] BEE Protein, body fluid (07/17/2018 3:45 PM CDT) Protein, Fluid 5.0 g/dL [facility] Specimen Body Fluid Narrative Performed At [facility] Absence of reference range indicates that normals have not been defined. Assay performance has not been validated for this type of specimen. Performing Organization Address City/State/[facility] Phone Number [address] [address] BEE Albumin, body fluid (07/17/2018 3:45 PM CDT) Albumin, Fluid 2.9 gm/dL [facility] Specimen Body Fluid Narrative Performed At [facility] Reference Range:No Normals Assay performance has not been validated for this type of specimen. Performing Organization Address City/State/[facility] Hospital[facility] Phone Number [facility] [address] [place] [address] [phone] biopsy abdomen (07/17/2018 3:28 PM CDT) Specimen Narrative Performed At FINAL REPORT [facility] PROCEDURE: CT-guided core biopsy of omental nodules. [...] MD Report Verified Date/Time:07/17/2018 16:57:37 Reading Location: [facility] B1 C013Y CT Body Reading Room Procedure [...] Report Verified Date/Time: 07/17/2018 16:57:37 Reading Location: [facility] B1 C013Y CT Body Reading Room Performing Organization Address City/State/Zipcode Phone Number GE RIS Cytology (07/17/2018 2:35 PM CDT) Case Report Medical Cytology Report Case: [id number] [facility] Authorizing Provider:Jessi Turcios MD Collected: 07/17/2018 1435 [facility] Ordering Location: [address] Received: 07/18/2018 0837 Service Pathologist: Alvin Arroyo MD Specimen:Peritoneal Fluid DIAGNOSIS PERITONEAL FLUID (CYTOSPINS): [facility] - SUSPICIOUS FOR MALIGNANCY [facility] Signing Pathologist Direct Phone Line: [phone] COMMENT There are a few atypical [facility] clusters that are [facility] suspicious for malignancy in a background of reactive mesothelial cells and chronic inflammation. CPT Code(s) 40361 [facility] CLINICAL DATA Ascites; colon mass and [facility] omental nodules presents [facility] for CT-guided core biopsy of omental nodules SPECIMEN SOURCE PERITONEAL FLUID [facility] GROSS DESCRIPTION Prepared 4 cytospins from 4 ml yellow blood-tinged fluid [facility] Collected: [id number] [facility] Received: [id number] STATEMENT OF ADEQUACY Satisfactory [facility] Gross assessment was [facility] performed at [place], Department [facility] Pathology, [address] [place] [address], Technical component was [facility] performed at [place], Department [facility]ology, [address] [place] [address], Professional component was [facility] performed at [place], Department [facility] Pathology, [address] [place] [address], Specimen Body Fluid Narrative Performed At Performing Organization Address [facility] Phone Number [address] [address] BEE PT/aPTT (07/17/2018 12:55 PM CDT) Protime 14.6 11.7 - 14.7 seconds [facility] INR 1.1 <=5.9 [facility] PTT 27.7 22.5 - 36.0 seconds [facility] Specimen Blood Narrative Performed At [facility] RECOMMENDED COUMADIN/WARFARIN INR THERAPY RANGES STANDARD DOSE: 2.0 - 3.0 Includes: PROPHYLAXIS for venous thrombosis, systemic embolization; TREATMENT for venous thrombosis and/or pulmonary embolus. HIGH RISK: Target INR is 2.5-3.5 for patients with mechanical heart valves. Performing Organization Address [facility] Hospital[facility] Phone Number [address] [address] CENTER Hemoglobin A1c (07/17/2018 5:22 AM CDT) Hemoglobin A1C 5.6 4.3 - 6.1 % [facility] Specimen Blood Performing Organization Address [facility] Phone Number [address] [address] [phone] BEE TRANSFUSION SERVICE REPORT - SCAN (07/16/2018 5:50 PM CDT) Narrative Performed At Albumin (07/16/2018 1:55 PM CDT) Albumin 3.9 3.5 - 5.0 g/dL [facility] Specimen Blood Performing Organization Address [facility]/Zipcode Phone Number [address] [address] BEE REPORT OF PROCEDURE - ENDOSCOPY URL (07/15/2018 [...] MD Report Verified Date/Time:07/15/2018 11:43:39 Reading Location: [address] Body Reading Room Procedure Note [...] Report Verified Date/Time: 07/15/2018 11:43:39 Reading Location: [address] Body Reading Room Performing Organization Address City/State/Zipcode Phone Number GE RIS Type and screen, automated (07/15/2018 10:47 AM CDT) ABO/RH AUTOMATED (BEAKER) A POSITIVE [facility] Ab Scrn NEGATIVE [facility] Specimen Blood Performing Organization Address City/State/[facility] Phone Number [address] [address] Blood culture (07/14/2018 11:55 PM CDT)Only the most recent of2 resultswithin the time period is included. Result No growth in 5 days [facility] Specimen Blood Performing Organization Address [facility] Hospital[facility] Phone Number [address] [address] [phone] CENTER Rapid Influenza A&B Screen (07/14/2018 11:30 PM CDT) Rapid Influenza A Antigen Negative Negative, Inconclusive [facility] Rapid influenza B Antigen Negative Negative, Inconclusive [facility] Specimen Nasal Performing Organization Address [facility] Phone Number [address] [address] [phone] CENTER Strep pneumoniae urine antigen (07/14/2018 11:28 PM CDT) Strep pneumoniae Presumptive negative Presumptive negative [facility] for pneumococcal [facility] pneumonia - see comment pneumonia - see CENTER comment, Presumptive negative for pneumococcal meningitis - see comment Specimen Urine Narrative Performed At Presumptive negative for pneumococcal [facility] pneumonia, suggesting no current or recent pneumococcal infection. Infection due to S. pneumoniae cannot be ruled out since the antigen present in the sample may be below the detection limit of the test. Performing Organization Address [facility] Hospital[facility]m Phone Number [address] [phone] CENTER Legionella antigen, urine (07/14/2018 11:28 PM CDT) Legionella Urine Antigen Negative - see [facility] commentComment: Negative [facility] for L. pneumophila serogroup 1 antigen, suggesting no recent or current infection with this serogroup. Legionellosis cannot be ruled out since other serogroups and species may cause disease. Specimen Urine Performing Organization Address [facility] Hospital[facility] Phone Number [address] [place] [address] CENTER EKG 12 lead (07/14/2018 10:59 PM CDT)Only the most recent of2 resultswithin the time period is included. Specimen Narrative Performed At Ventricular Rate 86 BPM GE MUSE Atrial Rate 86 BPM P-R Interval 158 ms QRS Duration 76 ms Q-T Interval 364 ms QTC Calculation(Bazett) 435 ms P [place] 57 degrees R [place] 35 degrees T [place] 178 degrees Sinus rhythm with Premature atrial [...] 364 ms QTC Calculation(Bazett) 435 ms P [place] 57 degrees R [place] 35 degrees T [place] 178 degrees Sinus rhythm with Premature atrial [...] CDT) Human Metapneumovirus Not detected Not detected, [facility] Rhinovirus Not detected Not detected, [facility] Equivocal [facility] Influenza A Not detected Not detected, [facility] INFLUENZA A (NO SUBTYPE) Not detected, [facility] [employer]ocal [facility] Influenza A subtype H1 Not detected, [facility] Influenza A Subtype H3 Not detected, [facility] Equivocal [facility] Influenza A Subtype H1-[address], [facility] Equivocal [facility] Influenza B Not detected Not detected, [facility] Respiratory Syncytial Virus Not detected Not detected, [facility] Parainfluenza Virus 1 Not detected Not detected, [facility] Parainfluenza Virus 2 Not detected Not detected, [facility] Parainfluenza virus 3 Not detected Not detected, [facility] Parainfluenza Virus 4 Not detected Not detected, [facility] Adenovirus Not detected Not detected, [facility] Coronavirus 229E Not detected Not detected, [facility] Coronavirus HKU1 Not detected Not detected, [facility] Coronavirus NL63 Not detected Not detected, [facility] Coronavirus OC43 Not detected Not detected, [facility] Bordetella Pertussis Not detected Not detected, [facility] Chlamydophila Pneumoniae Not detected Not detected, [facility] Mycoplasma Pneumoniae Not detected Not detected, [facility] Specimen Nasopharyngeal Narrative Performed At Other viruses and bacteria not targeted by [facility] this PCR panel cannot be excluded; therefore clinical correlation and follow up of serology, culture results, and other molecular studies is required. The results are not intended to be used as the sole means for clinical diagnosis or patient management decisions. This sample was tested at the [facility] using the [employer] Respiratory Panel. It is FDA cleared and has been verified and approved by the [facility] for clinical use on nasal swab specimens. It is not FDA-cleared for use on bronchial wash/lavage samples. However, for this sample type, validation was performed and test characteristics were determined and approved, by [facility] for clinical use under the Clinical Laboratory Improvement Amendments (CLIA) of 1988 requirements. Therefore, FDA clearance is not required.This laboratory is CLIA-certified and [employer] ([employer])-accredited to perform high complexity testing. Performing Organization Address City/State/[facility]code Phone Number SABINO [employer] [place] [employer] [facility] [address] [place] [address] CENTER after 06/14/2018 Insurance Payer Benefit Plan / Group Subscriber ID Type Phone Address [employer]N [employer]/CCN xxxxxxxxx PPO AMBETTER AMB[employer]TER SUPERIOR xxxxxxxxxxx (Home) [address] [place] [address] Advance Directives For more information, please contact:SABINO ParisiSHIMAUMA [employer] [address] [place], [place] [phone] Code Status Date Activated Date Inactivated Comments Full Code 09/10/2018 8:57 PM This code status was determined by: Patient Full Code 07/14/2018 10:24 PM 07/20/2018 5:34 PM This code status was determined by: Patient
--- OUTSIDE RECORDS SUMMARY | 2019-06-15 08:27 | XMS REPORT | Summary of Care ---
:1960 Author Organization [facility] [place] [address] Care Team Providers Name Role Phone Graham Goodwin MD Primary Care Provider Reason for Referral Consult, Test & Treat (Routine) Status Reason Specialty Diagnoses / Referred By Referred To Procedures Contact Contact Pending Consult, Gastroenterology Diagnoses Non-insulin dependent type 2 diabetes mellitus Nikhil Barfield MD [place], Test, and Procedures [facility], 1ST, INDIV, EA 15 MIN [address] [facility], [address] [place] [address] Phone: Fax: Reason for Visit Reason Comments Initial Visit - Diabetes Encounter Details Date Type Department Care Team Description 05/23/2019 Office Visit [facility] Nikhil Barfield MD Initial Visit - Medicine [address] [facility] Diabetes Endocrinology 8th Floor, [address] [facility] [place] [address] 8th Floor; [address] [phone] [place] [address] Allergies No Known Allergiesdocumented as of this encounter (statuses as of 05/23/2019) Medications Medication Sig Dispensed Refills Start Date End Date Status carvedilol (COREG) Take 3.125 mg by 0 Active 3.125 MG tablet mouth 2 times daily (with meals). cyclobenzaprine Take 10 mg by 0 Active (FLEXERIL) 10 MG mouth 3 times tablet daily as needed for Muscle spasms. amlodipine (NORVASC) Take 10 mg by 0 Active 10 MG tablet mouth daily. ondansetron (ZOFRAN) Take 1 Tab by 30 Tab 3 11/06/2018 Active 8 mg tablet mouth every 8 hours as needed. For chemotherapy-ind uced nausea docusate sodium Take 1 Cap by 60 Cap 3 12/04/2018 Active (COLACE) 100 MG mouth two times capsule daily. lidocaine-prilocaine Apply 1 30 g 3 12/04/2018 Active (EMLA) 2.5-2.5 % application cream topically as needed. polyethylene glycol Take 17 g by 1 Bottle 2 01/15/2019 Active (GLYCOLAX) powder mouth daily as needed. Morphine Sulfate ER Take 15 mg by 60 Each 0 03/12/2019 Active 15 MG mouth every 12 [id number]: hours. Colon cancer metastasized to multiple sites, Cancer related pain hydrocodone-acetamin Take 1 Tab by 120 Tab 0 04/23/2019 Active ophen (NORCO) 10-325 mouth every 6 MG per hours as needed tabletIndications: for Pain. Colon cancer Eprescribed metastasized to multiple sites, Cancer related pain Tamsulosin HCl 0.4 TAKE 1 CAPSULE 30 Cap 3 05/04/2019 Active MG CAPSIndications: BY MOUTH EVERY Benign prostatic DAY hyperplasia with urinary frequency linaGLIPtin 5 MG Take 1 tablet by 90 Tab 3 05/23/2019 08/21/20 Active TABS mouth daily for 19 90 days. glimepiride (AMARYL) Take 1 Tab by 90 Tab 3 05/23/2019 Active 4 MG tablet mouth every morning. glimepiride (AMARYL) Take 2 mg by 0 05/23/20 Discontinued 2 MG tablet mouth every 19 morning. documented as of this encounter (statuses as of 05/23/2019) Active Problems Problem Noted Date Non-insulin dependent type 2 diabetes mellitus 05/23/2019 Colon cancer metastasized to multiple sites 07/24/2018 documented as of this encounter (statuses as of 05/23/2019) Social History Tobacco Use Types Packs/Day Years [...] Sign Reading Time Taken Comments Blood Pressure 128/78 05/23/2019 8:08 AM CDT Pulse 73 05/23/2019 8:08 AM CDT Temperature - - Respiratory Rate 16 05/23/2019 8:08 AM CDT Oxygen Saturation - - Inhaled Oxygen Concentration - - Weight 137.9 kg (304 lb) 05/23/2019 8:08 AM CDT Height 177.8 cm (5' 10") 05/23/2019 8:08 AM CDT Body Mass Index 43.62 05/23/2019 8:08 AM CDT documented in this encounter Patient Instructions Patient InstructionsNikhil Barfield MD - 05/23/2019 2:00 PM CDTDIABETES INSTRUCTIONS Your new diabetes regimen is as follows: Glimepiride 4mg daily Linagliptin 5mg daily This medication can be associated with pancreatitis, stomach symptoms and contraindicated in patients with personal or family history of medullary thyroid carcinoma or MEN2 (multiple endocrine neoplasia) syndrome. You should go to the ER should you develop symptoms of severe abdominal pain, nausea, vomiting to be checked for pancreatitis. Important Reminders: - Please remember to obtain your yearly diabetic eye exam for diabetic retinopathy if you have not done. Please send us a copy of the results if they were not done at [facility]. Our fax # is [phone]. - Please check your blood pressure at home, your blood pressure goal is less than 140/90 - Please check your feet daily for ulcers and infections - It is recommended that you eat Diabetic diet. More information can be found at [email or web address]-d-[email or web address] - Eat meals on time and on a regular schedule - Blood sugar goals ---- Your fasting blood sugar should be between 90-130 ---- Your blood sugar after meals should be no greater than 180 Treatment of low blood sugar (less than 65) - the rule Eat 15 grams of carbohydrate 4 glucose tablets OR Half cup (4 ounces) of fruit juice or regular soda OR 6 hard candies OR 1 tablespoon of sugar OR honey Wait 15 minutes for the sugar to get into the blood and check your blood sugar. If it is below 65 then you can repeat with 15 more grams of carbohydrates. Your blood sugar should be checked to make sure it has come within a safe range PLEASE BRING A RECORD OF YOUR DILATED EYE EXAM at your next visit IT IS VERY IMPORTANT TO BRING YOUR BLOOD GLUCOSE LOGS WITH YOU TO EVERY ENDOCRINE VISIT GENERAL INSTRUCTIONS Please go to the front end web developer on your way out today to schedule your next appointment. Please let us know what we can do better by providing comments on the survey you will receive. We value your feedback! Return to clinic in 3 months documented in this encounter Progress Notes Nikhil Barfield MD - 05/23/2019 2:00 PM CDT [facility] Endocrine Clinic [facility] ENDO[facility] 8th Floor; [address] [facility] [address] Dept: [phone] Dept Referring physician Graham Goodwin MD Chief Complaint: Type 2 diabetes History of Present Illness Mr. Gonzalez is a 58 y.o. Black or male who presents with type 2 diabetes. 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 Patient is a very poor historian. Initial endocrine visit at [facility] Endocrine with [place] 05/23/2019 Onset: Diagnosed year 2017 Current diabetes regimen: Glimepiride 2mg once a day And another pill that he does not know the name Severity: Last A1C: HEMOGLOBIN A1C Date Value Ref Range Status 05/07/2019 11.7 (H) 4.2 - 5.6 % Final Comment: [employer] GUIDELINES FOR HGB A1C: PREDIABETES/INCREASED RISK . . . . . . . 5.7-6.4% DIAGNOSIS OF DIABETES . . . . . . . . . >=6.5% WITH CONFIRMATION OR APPROPRIATE SYMPTOMS NOTE: ASSAY MAY BE AFFECTED BY HEMOGLOBINOPATHIES (SICKLE CELL ANEMIA, S-C DISEASE, OTHERS) OR ARTIFICIALLY LOWERED BY DECREASED RED CELL SURVIVAL (HEMOLYTIC ANEMIAS, BLOOD LOSS, ETC.). CONSIDER ALTERNATE TESTING OR LABORATORY CONSULTATION. Unless Otherwise Indicated, All Testing Performed At: [facility], [address] [place] [id number] Box Office Clerk: Luis Alberto Perez M.D. IA Number [id number] [facility] [place]. [id number] Hypoglycemic episodes: none No history of seizure, loss of consciousness or hospitalization due to hypoglycemia Eat 3 meals a day: bk, lunch and dinner. No bedtime snacks. Does not check BG Associated signs and symptoms Diabetes associated complications/co-morbidities Microvascular Neuropathy: no numbness, tingling in b/l fingers/toes Eye exam: last dilated eye exam was in 2018. No DR. Nephropathy: not on ACEI/ARB Macrovascular Lipids: not on statin CAD: no history of stroke, ischemic heart disease, peripheral arterial disease DM foot: no ulcers No history of pancreatitis, medullary thyroid carcinoma or MEN syndrome Current Outpatient Medications Medication Sig Dispense Refill [...] times daily. 60 Cap 3 glimepiride (AMARYL) 4 MG tablet Take 1 Tab by mouth every morning. 90 Tab 3 hydrocodone-acetaminophen (NORCO) 10-325 MG per tablet Take 1 Tab by mouth every 6 hours as needed for Pain. Eprescribed 120 Tab 0 lidocaine-prilocaine (EMLA) 2.5-2.5 % cream Apply 1 application topically as needed. 30 g 3 linaGLIPtin 5 MG TABS Take 1 tablet by mouth daily for 90 days. 90 Tab 3 Morphine Sulfate ER 15 MG T12A [...] for this visit. Review of Systems Constitutional: negative for fevers, chills, sweats. anorexia. Eyes: negative for eye redness or excessive tears Ears, nose, mouth, throat: negative for ear drainage, earaches, hearing loss. Respiratory: negative for cough, sputum, hemoptysis. Cardiovascular: Negative for chest pain, dyspnea, or palpitations. Gastrointestinal: negative for nausea or vomiting Genitourinary: negative for dysuria. Skin: negative for rash, skin lesion(s). Hematologic/lymphatic: negative for easy bruising, bleeding. Musculoskeletal: negative for myalgias, or arthralgias. Neurological: negative for weakness. Endocrine: please see HPI Allergic/Immunologic: negative for urticaria, and anaphylaxis. Social History Tobacco Use Smoking status: Former Smoker Types: Cigarettes Smokeless tobacco: Former User Substance Use Topics Alcohol use: Yes Drinks per session: 5 or 6 Drug use: No Past medical history, family history and surgical history : reviewed, listed below or as in scanned in media Past Medical History: Diagnosis Date Asthma Colon cancer HBP (high blood pressure) No past surgical history on file. No Known Allergies Physical Exam Vitals: 05/23/19 0808 BP: 128/78 BP Location: right arm Patient Position: Sitting Cuff Size: regular Pulse: 73 Resp: 16 Weight: (!) 304 lb (137.9 kg) Height: 5' 10" (1.778 m) Body mass index is 43.62 kg/m. 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 Component Latest Ref Rng & Units 05/21/2019 GLUCOSE 70 - 99 MG/DL 426 (HH) BLOOD UREA NITROGEN 6 - 20 MG/DL 27 (H) CREATININE 0.80 - 1.40 MG/DL 0.86 EGFR AA >60 ML/MIN/1.73 111 EGFR >60 ML/MIN/1.73 96 BUN/CREAT RATIO 6 - 28 RATIO 31 (H) SODIUM 133 - 146 MEQ/L 135 POTASSIUM 3.5 - 5.4 MEQ/L 5.0 CHLORIDE 100 - 112 MEQ/L 98 (L) CO2 21 - 30 MEQ/L 22 CALCIUM 8.5 - 10.5 MG/DL 10.2 PROTEIN TOTAL 6.1 - 8.1 G/DL 7.7 ALBUMIN 3.4 - 4.8 G/DL 4.2 GLOBULINS, SERUM, TOTAL 1.9 - 3.7 G/DL 3.5 A/G RATIO 1.0 - 2.6 RATIO 1.2 BILIRUBIN TOTAL <=1.2 MG/DL 0.7 ALKALINE PHOSPHATASE 30 - 132 U/L 93 AST (SGOT) 7 - 56 U/L 26 ALT (SGPT) 3 - 47 U/L 29 DIAGNOSIS ICD-10-CM 1. Non-insulin dependent type 2 diabetes mellitus E11.9 2. Blood glucose elevated R73.9 Assessment and Plan Shai Gonzalez Jr. is a 58 y.o. male with 1. Type 2 diabetes HEMOGLOBIN A1C Date Value Ref Range Status 05/07/2019 11.7 (H) 4.2 - 5.6 % Final Comment: [employer] GUIDELINES FOR HGB A1C: PREDIABETES/INCREASED RISK . . . . . . . 5.7-6.4% DIAGNOSIS OF DIABETES . . . . . . . . . >=6.5% WITH CONFIRMATION OR APPROPRIATE SYMPTOMS NOTE: ASSAY MAY BE AFFECTED BY HEMOGLOBINOPATHIES (SICKLE CELL ANEMIA, S-C DISEASE, OTHERS) OR ARTIFICIALLY LOWERED BY DECREASED RED CELL SURVIVAL (HEMOLYTIC ANEMIAS, BLOOD LOSS, ETC.). CONSIDER ALTERNATE TESTING OR LABORATORY CONSULTATION. Unless Otherwise Indicated, All Testing Performed At: [facility], [address] [place] [id number] Box Office Clerk: Luis Alberto Perez M.D. IA Number [id number] [facility] [place]. [id number] Hypoglycemia: none Regimen prior to this visit: Glimepiride 2mg once a day Plan: Prescription drug management for diabetes: Glimepiride 4mg once a day Add Linagliptin 5mg daily He does not want any injection. He does not want to be on metformin due to bad online reviews that he had read This medication can be associated with pancreatitis, stomach symptoms and contraindicated in patients with personal or family history of medullary thyroid carcinoma or MEN2 (multiple endocrine neoplasia) syndrome. You should go to the ER should you develop symptoms of severe abdominal pain, nausea, vomiting to be checked for pancreatitis. BG log to be sent in for review in 1-2 weeks Discussed with patient to do self exam of both feet daily Check blood glucose before meals and at bedtime Counseled consistent and low carb diet Counseled signs/symptoms of hypoglycemia. Hypoglycemia precautions and management discussed. Counseled to eat all meals on time to avoid hypoglycemia Counseled patient to wear socks/shoes that are loose and examine feet daily Dyslipidemia: - Not on statin - Check FLP Diabetic retinopathy - Need eye exam this year. Diabetic nephropathy - Check microalbuminuria - not on KHALIF/ARB Orders Placed This Encounter Procedures POCT REAGENT STP/BLD GLUCOSE Lipid panel Microalbumin / creatinine urine ratio AMB REF TO GI CAGE UNLOADER [facility] Referral Priority: Routine Referral Type: Consult, Test & Treat Referral Reason: Consult, Test, and Treat Referred to Provider: Savanna Mccracken RD Number of Visits Requested: 6 Return to clinic in 3 months. Patient was given enough time and opportunities to ask questions. All questions and concerns were addressed to patient's satisfaction Nikhil Barfield MD Retort Furnace Helper Department of Endocrinology, Diabetes and Metabolism [facility] documented in this encounter Plan of Treatment Date Type Specialty Care Team Description 06/05/2019 Appointment Infusion Center 12, [facility] [address] Floor, [address] [place] [address] 06/07/2019 Appointment Infusion Center 12, [facility] [address] Floor, [address] [place] [address] 06/18/2019 Office Visit Hematology and Oncology Miguel Bennett NP [address] Floor, [address] [place] [address] 09/20/2019 Office Visit Endocrinology Nikhil Barfield MD [address] [facility] 8th Floor, [address] [place] [address] Name Type Priority Associated Diagnoses Order Schedule LIPID PANEL Lab Routine Non-insulin dependent type 2 Ordered: 05/23/2019 diabetes mellitus MICROALBUMIN/CREAT Lab Routine Non-insulin dependent type 2 Ordered: 2018 URINE RATIO diabetes mellitus Name Type Priority Associated Diagnoses Order Schedule AMB REF TO GI Outpatient Referral Routine Non-insulin Ordered: CAGE UNLOADER dependent type 2 05/23/2019 diabetes mellitus Health Maintenance Due Date Last Done Comments TETANUS SHOT (ADULT) 12/12/1975 ANNUAL DIABETIC FOOT EXAM 1978 ANNUAL DIABETIC RETINOPATHY 1978 SCREENING BMI FOLLOW UP PLAN 1978 HEPATITIS C SCREENING 1978 HIV SCREENING 1978 FLU VACCINE > 6 MONTHS 05/03/2019 08/02/2018 COLON CANCER SCREENIN09/12/2028 09/12/2018, 09/11/2018, COLONOSCOPY 07/18/2018, Additional history exists documented as of this encounter Procedures Procedure Name Priority Date/Time Associated Diagnosis Comments POCT REAGENT Routine 05/23/2019 8:15 AM Blood glucose Results for this STP/BLD GLUCOSE CDT elevated procedure are in the results section. documented in this encounter Results POCT REAGENT STP/BLD GLUCOSE (05/23/2019 8:15 AM CDT) GLUCOSE FINGERSTICK 369 Specimen Blood documented in this encounter Visit Diagnoses Diagnosis Non-insulin dependent type 2 diabetes mellitus - Primary Type II or unspecified type diabetes mellitus without mention of complication, not stated as uncontrolled Blood glucose elevated Other abnormal glucose documented in this encounter Insurance Payer Benefit Plan / Subscriber ID Effective Dates Phone Address Type Group [facility] - xxxxxxxxxxx 2018-Present [address] [place] [address] (Home) [address] [place] [address] documented as of this encounter
--- OUTSIDE RECORDS SUMMARY | 2019-06-15 08:27 | XMS REPORT | Summary of Care ---
:1960 Author Organization [facility] [place] [address] Care Team Providers Name Role Phone Graham Goodwin MD Primary Care Provider Reason for Visit Reason Comments Follow Up f/u colon cancer pain left side , black area side of left knee Encounter Details Date Type Department Care Team Description 05/21/2019 Office Visit [facility] Miguel Bennett Follow Up (f/u colon Medicine Hematology KAVEH Morris cancer pain left and Oncology [address] side , black area [address] 7th Floor, [address] side of left knee ) 7th Floor, [address] [place] [address] [place] [phone] [address] [phone] Allergies No Known Allergiesdocumented as of this encounter (statuses as of 05/21/2019) Medications Medication Sig Dispensed Refills Start Date [...] by 60 Each 0 03/12/2019 Active MG [id number]: mouth every 12 Colon cancer hours. metastasized [...] as of this encounter (statuses as of 05/21/2019) Active Problems Problem Noted Date Colon cancer metastasized to multiple sites 07/24/2018 documented as of this encounter (statuses as of 05/21/2019) Social History Tobacco Use Types Packs/Day Years [...] Sign Reading Time Taken Comments Blood Pressure 131/73 05/21/2019 8:58 AM CDT Pulse 82 05/21/2019 8:58 AM CDT Temperature - - Respiratory Rate 18 05/21/2019 8:58 AM CDT Oxygen Saturation - - Inhaled Oxygen Concentration - - Weight 135.4 kg (298 lb 9.6 oz) 05/21/2019 8:58 AM CDT Height 180.3 cm (5' 10.98") 05/21/2019 8:58 AM CDT Body Mass Index 41.67 05/21/2019 8:58 AM CDT documented in this encounter Progress Notes Kyle Hernandez MD - 05/21/2019 8:00 AM CDT Patient: Shai Gonzalez Jr. 1960 58 y.o. with stage IV colon cancer diagnosed at [facility], here for f/u 05/21/2019 S: doing well on maintenance 5FU. Still with numbness/tingling to fingertips and toes, stable to a little worse. Blood sugars have been a problem due to dietary indiscrection. Has still seen endo (notscheduled until 06/29). Intermittent LUQ pain, lasts for a few seconds, resolves spontaneously. No CP/ SOB, no N/V/D/C, no F/C/NS. ECOG PS 1 Course summary: - admitted to [facility] for obstipation - cScope 07/15/18 (Tasha@ [facility]): A malignant-appearing, intrinsic severe stenosis measuring 3 mm (inner diameter) was found in the descending colon and was non-traversed. This was stented with a 25 mm x 87 mm Ultraflex Precision stent under fluoroscopic guidance. Estimated blood loss was minimal. - CEA 766 on 07/15/18 - CT CAP 07/17/18 ([facility]): Metallic stent in the descending colon. No [...] with suspicious cells - R thoracentesis 07/17/18 ([facility]): 1043 WBC, 9500 RBCs; fluid not sent for cytology. Protein 5, albumin 2.9 - paracentesis 07/18/18: cytology + for adenoCA - cScope 07/18/18: partially obstructing descending colon mass with stent in place - R chest port 07/19/18, was supposed to start chemo but lost insurance - admitted to [facility] in Sep 2018 for LBO -> cScope [...] the stent - FOLFOX #6 01/01, #7 01/15, #8 01/29 - 5FU/LV maintenance (no kelly secondary to colonic stent with prior obstruction) 02/12, 02/28, 03/12, 03/26, 04/09 - CT CAP 04/17/19: ongoing response - 5FU/LV maintenance (no kelly secondary to colonic stent with prior obstruction) 04/23, 05/07, 05/21 Past Medical, Surgical, Family, Social History: unchanged [...] for this visit. Review of Systems Constitutional: Positive for weight loss (down a few pounds). Negative for chills and fever. HENT: Negative. Eyes: Negative. Respiratory: Positive for shortness of breath (chronic SAPP). Negative for cough. Cardiovascular: Positive for orthopnea (chronic (ANASTACIO)) and leg swelling ( chronic (mild)). Gastrointestinal: Positive for abdominal pain (intermittent LUQ pain, see HPI). Negative for blood in stool, constipation, diarrhea and vomiting. Genitourinary: Positive for frequency and urgency. Musculoskeletal: Positive for joint pain (chronic). Skin: Negative. Neurological: Positive for sensory change (mild numbness in toes adn fingers. doesn't affect function). Endo/Heme/Allergies: Negative. Psychiatric/Behavioral: Negative. BP 131/73 (BP Location: left arm, Patient Position: Sitting) | Pulse 82 | Resp 18 | Ht 5' 10.98" (1.803 m) | Wt 298 lb 9.6 oz (135.4 kg) | BMI 41.67 kg /m Wt Readings from Last 3 Encounters: 05/21/19 298 lb 9.6 oz (135.4 kg) 05/07/19 (!) 304 lb 9.6 oz (138.2 kg) 04/23/19 (!) 306 lb (138.8 kg) Physical Exam Constitutional: He is oriented [...] is not diaphoretic. No erythema. No pallor. Darkness of palms and soles Psychiatric: Mood, memory, affect and judgment normal. [...] FOLFOX (copay for xeloda too high) -> NE after 5 cycles with nice reduction in [...] to address his comorbidities, especially HTN 5) DM, poorly controlled. 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 Kalin Falcon [facility] documented in this encounter Plan of Treatment Date Type Specialty Care Team Description 05/21/2019 Hospital Encounter Infusion Center 12, [facility] Chair [address], [address] [place] [address] 05/23/2019 Appointment Infusion Center 12, [facility] [address], [address] [place] [address] 06/05/2019 Appointment Infusion Center 12, [facility] [address] Floor, [address] [place] [address] 06/07/2019 Appointment Infusion Center 12, [facility] [address] Floor, [address] [place] [address] 07/05/2019 Office Visit Endocrinology Yoselyn Singleton MD [address] [address] Health Maintenance Due Date Last Done Comments [...] Primary Malignant neoplasm of colon, unspecified site documented in this encounter Insurance Payer Benefit Plan / Subscriber ID Effective Dates Phone Address Type Group [facility] - xxxxxxxxxxx 2018-Present [address] [place] [address] [place] (Home) [address] [place] [address] documented as of this encounter
--- OUTSIDE RECORDS SUMMARY | 2019-06-15 08:27 | XMS REPORT ---
:1960 [facility] [address] [place] [address] Care Team Providers Name Role Phone MARLYS [...] attention on subsequent follow-ups. Signed: Og Soriano [facility] Verified Date/Time: 12/25/2018 15:06:57 , ABDOMEN, 2018-12-25 [...] (BEAKER) (test 0.7 mg/dL 0.6-1.[address] [facility] 7200 jhnu=4950) [facility] [address] POC-EGFR (BEAKER) (test 140 mL/min/1.73M2 zvqk=5747) TISSUE [id number] 13:08:00Surgical Pathology Report Case: [id number] Authorizing Provider: Jessi Turcios MD Collected: 07/17/2018 1254 Ordering Location: [address] Received: 07/17/2018 1607 Service Pathologist: Allen [...] nuclear expressionMSH6: Intact nuclear expressionPMS2: Intact [facility] expression[facility] InterpretationNo loss of nuclear expression of MMR proteins: low probability of microsatellite instability-high (MSI-H)# #There are exceptions to the above IHC interpretations.These results should not be considered in isolation, and clinical correlation with genetic counseling is recommended to assess the need for germline testing.Immunohistochemistry disclaimer:The immunohistochemistry test was developed and its performance characteristics determined by [facility], Pathology Laboratory. It has not been [...] qualified to perform high complexity clinical laboratory testing.[id number] x 4Addendum electronically signed by Star Trejo MD on 07/20/2018 at 10:07 AMPART A OMENTAL BIOPSY:MODERATELY DIFFERENTIATED ADENOCARCINOMA.SEE DIAGNOSTIC COMMENT. Signing Pathologist Direct Phone Line: [phone] signed by Allen Velazquez MD on 07/19/2018 [...] and imaging studies is required for complete interpretation.[id number], 24148, [id number] givenOmentum The specimen is received in a formalin-filled container and labeledwith the patient's information labeled "omentum" and consists of four off white core biopsies ranging from 0.2 to 0.4 cm, submitted entirely A1.CG/pl PERFORMED.The following special studies were performed on this case and the interpretation is incorporated in the diagnostic report above:BLOCK A1- CK7,CK20, CDX2, TTF1, PSA, FD09Sxv immunohistochemistry test was developed and its performance characteristics determined by [facility], Pathology Laboratory. It has not been [...] to perform high complexity clinical laboratory testing.POCT-GLUCOSE [id number] 12:55:00 Test Item Value Reference Range Comments POC-GLUCOSE METER (BEAKER) 115 mg/dL 70-110 TESTED AT [address] (test slge=0177) [facility] [address] POCT-GLUCOSE [id number] 08:52:00 Test Item Value Reference Range Comments POC-GLUCOSE METER (BEAKER) 137 mg/dL 70-[address] [facility] [address] (test zivx=0433) [facility] [address] CARCINOEMBRYONIC ANTIGEN (CEA)2018-09-13 07:11:00 Test Item Value Reference Range Comments CARCINOEMBRYONIC ANTIGEN (BEAKER) (test 1302.5 ng/mL 0.0-5.0 hfih=674) [id number] 07:04:00 Test Item Value Reference Range Comments MAGNESIUM (BEAKER) (test makg=672) 1.7 mg/dL 1.6-2.6 BASIC METABOLIC [id number] 07:04:00 Test Item Value Reference Range Comments SODIUM (BEAKER) (test 139 meq/L 136-145 ilcc=276) POTASSIUM (BEAKER) (test 3.5 meq/L 3.5-5.1 zhpl=538) CHLORIDE (BEAKER) (test 105 meq/L 98-107 soui=682) CO2 (BEAKER) (test 26 meq/L 22-29 osil=926) BLOOD UREA NITROGEN 10 mg/dL 7-21 (BEAKER) (test gcjm=668) CREATININE (BEAKER) (test 0.77 mg/dL 0.57-1.25 guld=972) GLUCOSE RANDOM (BEAKER) 135 mg/dL 70-105 (test ctqe=085) CALCIUM (BEAKER) (test 8.9 mg/dL 8.4-10.2 cdfs=472) EGFR (BEAKER) (test 126 mL/min/1.73 sq m ESTIMATED GFR IS NOT pdej=0145) ACCURATE CREATININE CLEARANCE IN PREDICTING GLOMERULAR FILTRATION RATE. ESTIMATED GFR IS NOT APPLICABLE FOR DIALYSIS PATIENTS. HEPATIC FUNCTION [id number] 07:04:00 Test Item Value Reference Range Comments TOTAL PROTEIN (BEAKER) (test txgz=811) 7.4 gm/dL 6.0-8.3 ALBUMIN (BEAKER) (test asst=9198) 3.9 g/dL 3.5-5.0 BILIRUBIN TOTAL (BEAKER) (test niep=167) 0.6 mg/dL 0.2-1.2 BILIRUBIN DIRECT (BEAKER) (test rrrl=738) 0.3 mg/dL 0.1-0.5 ALKALINE PHOSPHATASE (BEAKER) (test mwoi=408) 63 U/L 40-150 AST (SGOT) (BEAKER) (test hnuv=341) 23 U/L 5-34 ALT (SGPT) (BEAKER) (test ajuh=602) 37 U/L 6-55 CBC W/PLT COUNT & AUTO [id number] 06:29:00 Test Item Value Reference Range Comments WHITE BLOOD CELL COUNT (BEAKER) (test cplq=306) 9.8 K/ L 3.5-10.5 RED BLOOD CELL COUNT (BEAKER) (test ovgw=883) 4.61 M/ L 4.63-6.08 HEMOGLOBIN (BEAKER) (test fcaj=115) 12.9 GM/DL 13.7-17.5 HEMATOCRIT (BEAKER) (test fzoy=753) 41.0 % 40.1-51.0 MEAN CORPUSCULAR VOLUME (BEAKER) (test hwtv=367) 88.9 fL 79.0-92.2 MEAN CORPUSCULAR HEMOGLOBIN (BEAKER) (test 28.0 pg 25.7-32.2 kdjs=754) MEAN CORPUSCULAR HEMOGLOBIN CONC (BEAKER) (test 31.5 GM/DL 32.3-36.5 ultr=843) RED CELL DISTRIBUTION WIDTH (BEAKER) (test 13.0 % 11.6-14.4 nhvo=794) PLATELET COUNT (BEAKER) (test poty=658) 285 K/CU MM 150-450 MEAN PLATELET VOLUME (BEAKER) (test alsg=851) 11.3 fL 9.4-12.4 NUCLEATED RED BLOOD CELLS (BEAKER) (test 0 /100 WBC 0-0 uxyg=716) NEUTROPHILS RELATIVE PERCENT (BEAKER) (test 69 % prox=812) LYMPHOCYTES RELATIVE PERCENT (BEAKER) (test 18 % sttl=006) MONOCYTES RELATIVE PERCENT (BEAKER) (test 11 % jxzi=617) EOSINOPHILS RELATIVE PERCENT (BEAKER) (test 2 % kvoa=245) BASOPHILS RELATIVE PERCENT (BEAKER) (test 1 % ecwv=359) NEUTROPHILS ABSOLUTE COUNT (BEAKER) (test 6.71 K/ L 1.78-5.38 hisi=719) LYMPHOCYTES ABSOLUTE COUNT (BEAKER) (test 1.72 K/ L 1.32-3.57 kaeb=464) MONOCYTES ABSOLUTE COUNT (BEAKER) (test 1.10 K/ L 0.30-0.82 mitz=738) EOSINOPHILS ABSOLUTE COUNT (BEAKER) (test 0.17 K/ L 0.04-0.54 yyis=938) BASOPHILS ABSOLUTE COUNT (BEAKER) (test 0.06 K/ L 0.01-0.08 qhiq=946) IMMATURE GRANULOCYTES-RELATIVE PERCENT (BEAKER) 0 % 0-1 (test dlfr=7842) POCT-GLUCOSE [id number] 01:02:00 Test Item Value Reference Range Comments POC-GLUCOSE METER (BEAKER) 130 mg/dL 70-110 TESTED AT [address] (test syuv=8452) [facility] [address] POCT-GLUCOSE [id number] 17:48:00 Test Item Value Reference Range Comments POC-GLUCOSE METER (BEAKER) 119 mg/dL 70-110 TESTED AT [address] (test fqvp=7554) [facility] [address] POCT-GLUCOSE [id number] 12:27:00 Test Item Value Reference Range Comments POC-GLUCOSE METER (BEAKER) 154 mg/dL 70-110 TESTED AT [address] (test qnkp=7177) [facility] [address] POCT-GLUCOSE [id number] 07:44:00 Test Item Value Reference Range Comments POC-GLUCOSE METER (BEAKER) 243 mg/dL 70-110 TESTED AT [address] (test cuvb=5985) [place] [id number] 06:49:00 Test Item Value Reference Range Comments MAGNESIUM (BEAKER) (test swnt=275) 1.8 mg/dL 1.6-2.6 BASIC METABOLIC [id number] 06:49:00 Test Item Value Reference Range Comments SODIUM (BEAKER) (test 138 meq/L 136-145 mwjq=137) POTASSIUM (BEAKER) (test 3.3 meq/L 3.5-5.1 swmv=196) CHLORIDE (BEAKER) (test 103 meq/L 98-107 hxmk=907) CO2 (BEAKER) (test 27 meq/L 22-29 hhdn=776) BLOOD UREA NITROGEN 18 mg/dL 7-21 (BEAKER) (test fkao=863) CREATININE (BEAKER) (test 1.08 mg/dL 0.57-1.25 pvbk=602) GLUCOSE RANDOM (BEAKER) 139 mg/dL 70-105 (test syoi=754) CALCIUM (BEAKER) (test 8.6 mg/dL 8.4-10.2 fyuw=503) EGFR (BEAKER) (test 85 mL/min/1.73 sq m ESTIMATED GFR IS NOT chnf=8784) ACCURATE CREATININE CLEARANCE IN PREDICTING GLOMERULAR FILTRATION RATE. ESTIMATED GFR IS NOT APPLICABLE FOR DIALYSIS PATIENTS. CBC W/PLT COUNT & AUTO [id number] 06:29:00 Test Item Value Reference Range Comments WHITE BLOOD CELL COUNT (BEAKER) (test nkwe=543) 9.6 K/ L 3.5-10.5 RED BLOOD CELL COUNT (BEAKER) (test ltkp=964) 4.04 M/ L 4.63-6.08 HEMOGLOBIN (BEAKER) (test bgcd=128) 11.5 GM/DL 13.7-17.5 HEMATOCRIT (BEAKER) (test vevr=626) 36.5 % 40.1-51.0 MEAN CORPUSCULAR VOLUME (BEAKER) (test wjhw=225) 90.3 fL 79.0-92.2 MEAN CORPUSCULAR HEMOGLOBIN (BEAKER) (test 28.5 pg 25.7-32.2 cxuf=170) MEAN CORPUSCULAR HEMOGLOBIN CONC (BEAKER) (test 31.5 GM/DL 32.3-36.5 awan=089) RED CELL DISTRIBUTION WIDTH (BEAKER) (test 13.1 % 11.6-14.4 wjrc=197) PLATELET COUNT (BEAKER) (test nwbi=342) 238 K/CU MM 150-450 MEAN PLATELET VOLUME (BEAKER) (test tmtj=044) 11.3 fL 9.4-12.4 NUCLEATED RED BLOOD CELLS (BEAKER) (test 0 /100 WBC 0-0 hrfq=543) NEUTROPHILS RELATIVE PERCENT (BEAKER) (test 71 % cghp=780) LYMPHOCYTES RELATIVE PERCENT (BEAKER) (test 15 % rhqh=960) MONOCYTES RELATIVE PERCENT (BEAKER) (test 12 % dpyb=198) EOSINOPHILS RELATIVE PERCENT (BEAKER) (test 2 % xsoj=039) BASOPHILS RELATIVE PERCENT (BEAKER) (test 1 % xsno=813) NEUTROPHILS ABSOLUTE COUNT (BEAKER) (test 6.74 K/ L 1.78-5.38 ibrc=730) LYMPHOCYTES ABSOLUTE COUNT (BEAKER) (test 1.42 K/ L 1.32-3.57 vrdb=665) MONOCYTES ABSOLUTE COUNT (BEAKER) (test 1.17 K/ L 0.30-0.82 tuyl=650) EOSINOPHILS ABSOLUTE COUNT (BEAKER) (test 0.14 K/ L 0.04-0.54 yuvh=620) BASOPHILS ABSOLUTE COUNT (BEAKER) (test 0.06 K/ L 0.01-0.08 ahrg=597) IMMATURE GRANULOCYTES-RELATIVE PERCENT (BEAKER) 0 % 0-1 (test jawi=6564) POCT-GLUCOSE [id number] 00:36:00 Test Item Value Reference Range Comments POC-GLUCOSE METER (BEAKER) 141 mg/dL 70-110 TESTED AT [address] (test bjxe=0714) [address], CERTIFIED TRAVEL COUNSELOR IN OR/30 MINUTE [id number] 19:40:00Reason for exam:-> DURING PROCEDUREBRONCHFINAL REPORT Fluoroscopy 5 views intraoperative 09/11/2018 7:39 PM CLINICAL HISTORY: Instrument localization COMPARISON: None available IMPRESSION: Please correlate imaging report findings with the procedure note prepared by Dr. Cordova, as an intra-procedure imaging consultation was not requested. Reported fluoroscopy time: 525.3 seconds. Signed : Chau Gasca Verified Date/Time: 09/11/2018 19:40:28 Reading Location: [facility] Radiology Reading Room POCT-GLUCOSE [id number] 18:32: 00 Test Item Value Reference Range Comments POC-GLUCOSE METER (BEAKER) 116 mg/dL 70-110 TESTED AT [address] (test ojff=6758) [place] [address] POCT-GLUCOSE [id number] 12:08:00 Test Item Value Reference Range Comments POC-GLUCOSE METER (BEAKER) 156 mg/dL 70-110 TESTED AT [address] (test ixhe=2730) [place] [address] [id number] 09:06:00 Test Item Value Reference Range Comments MAGNESIUM (BEAKER) (test zxnc=683) 1.9 mg/dL 1.6-2.6 [id number] 09:06:00 Test Item Value Reference Range Comments PHOSPHORUS (BEAKER) (test vegg=143) 3.8 mg/dL 2.3-4.7 BASIC METABOLIC [id number] 06:49:00 Test Item Value Reference Range Comments SODIUM (BEAKER) (test 139 meq/L 136-145 cfbr=873) POTASSIUM (BEAKER) (test 3.0 meq/L 3.5-5.1 epae=054) CHLORIDE (BEAKER) (test 100 meq/L 98-107 jhir=645) CO2 (BEAKER) (test 28 meq/L 22-29 ztid=189) BLOOD UREA NITROGEN 13 mg/dL 7-21 (BEAKER) (test wfhp=139) CREATININE (BEAKER) (test 0.83 mg/dL 0.57-1.25 rcck=206) GLUCOSE RANDOM (BEAKER) 135 mg/dL 70-105 (test fkqz=539) CALCIUM (BEAKER) (test 9.2 mg/dL 8.4-10.2 tgbx=527) EGFR (BEAKER) (test 116 mL/min/1.73 sq m ESTIMATED GFR IS NOT eren=4582) ACCURATE CREATININE CLEARANCE IN PREDICTING GLOMERULAR FILTRATION RATE. ESTIMATED GFR IS NOT APPLICABLE FOR DIALYSIS PATIENTS. POCT-GLUCOSE [id number] 06:36:00 Test Item Value Reference Range Comments POC-GLUCOSE METER (BEAKER) 161 mg/dL 70-110 TESTED AT [address] (test bwkg=3883) [facility] [address] CBC W/PLT COUNT & AUTO [id number] 06:28:00 Test Item Value Reference Range Comments WHITE BLOOD CELL COUNT (BEAKER) (test wpsr=805) 10.7 K/ L 3.5-10.5 RED BLOOD CELL COUNT (BEAKER) (test zdxt=672) 4.72 M/ L 4.63-6.08 HEMOGLOBIN (BEAKER) (test gilb=964) 13.7 GM/DL 13.7-17.5 HEMATOCRIT (BEAKER) (test xlqk=563) 42.6 % 40.1-51.0 MEAN CORPUSCULAR VOLUME (BEAKER) (test szxz=466) 90.3 fL 79.0-92.2 MEAN CORPUSCULAR HEMOGLOBIN (BEAKER) (test 29.0 pg 25.7-32.2 utxu=816) MEAN CORPUSCULAR HEMOGLOBIN CONC (BEAKER) (test 32.2 GM/DL 32.3-36.5 jykp=978) RED CELL DISTRIBUTION WIDTH (BEAKER) (test 12.9 % 11.6-14.4 mxhn=820) PLATELET COUNT (BEAKER) (test apzf=170) 292 K/CU MM 150-450 MEAN PLATELET VOLUME (BEAKER) (test krps=245) 11.3 fL 9.4-12.4 NUCLEATED RED BLOOD CELLS (BEAKER) (test 0 /100 WBC 0-0 uhai=439) NEUTROPHILS RELATIVE PERCENT (BEAKER) (test 75 % jwyu=739) LYMPHOCYTES RELATIVE PERCENT (BEAKER) (test 13 % jumf=093) MONOCYTES RELATIVE PERCENT (BEAKER) (test 11 % qjta=794) EOSINOPHILS RELATIVE PERCENT (BEAKER) (test 0 % rjii=653) BASOPHILS RELATIVE PERCENT (BEAKER) (test 0 % uuzq=405) NEUTROPHILS ABSOLUTE COUNT (BEAKER) (test 7.97 K/ L 1.78-5.38 fmyl=131) LYMPHOCYTES ABSOLUTE COUNT (BEAKER) (test 1.41 K/ L 1.32-3.57 pwjv=366) MONOCYTES ABSOLUTE COUNT (BEAKER) (test 1.18 K/ L 0.30-0.82 xjew=769) EOSINOPHILS ABSOLUTE COUNT (BEAKER) (test 0.04 K/ L 0.04-0.54 gnmd=658) BASOPHILS ABSOLUTE COUNT (BEAKER) (test 0.03 K/ L 0.01-0.08 gzie=606) IMMATURE GRANULOCYTES-RELATIVE PERCENT (BEAKER) 1 % 0-1 (test yzig=2765) POCT-GLUCOSE [id number] 01:34:00 Test Item Value Reference Range Comments POC-GLUCOSE METER (BEAKER) 135 mg/dL 70-[address] [facility] [address] (test ldwk=0487) [facility] [address] POCT-GLUCOSE [id number] 09:00:00 Test Item Value Reference Range Comments POC-GLUCOSE METER (BEAKER) 195 mg/dL 70-[address] [facility] [address] (test irlw=5951) [facility] [address] BLOOD [id number] 06:00:00 Test Item Value Reference Range Comments CULTURE (BEAKER) (test psus=1080) No growth in 5 days BLOOD [id number] 06:00:00 Test Item Value Reference Range Comments CULTURE (BEAKER) (test prjf=5983) No growth in 5 days BASIC METABOLIC [id number] 05:43:00 Test Item Value Reference Range Comments SODIUM (BEAKER) (test 141 meq/L 136-145 jupy=265) POTASSIUM (BEAKER) (test 3.6 meq/L 3.5-5.1 dfun=555) CHLORIDE (BEAKER) (test 106 meq/L 98-107 haom=759) CO2 (BEAKER) (test 25 meq/L 22-29 onmw=622) BLOOD UREA NITROGEN 9 mg/dL 7-21 (BEAKER) (test fqtb=448) CREATININE (BEAKER) (test 0.80 mg/dL 0.57-1.25 idnb=920) GLUCOSE RANDOM (BEAKER) 119 mg/dL 70-105 (test xasy=066) CALCIUM (BEAKER) (test 8.9 mg/dL 8.4-10.2 pvcd=418) EGFR (BEAKER) (test 121 mL/min/1.73 sq m ESTIMATED GFR IS NOT hwrv=0727) ACCURATE CREATININE CLEARANCE IN PREDICTING GLOMERULAR FILTRATION RATE. ESTIMATED GFR IS NOT APPLICABLE FOR DIALYSIS PATIENTS. CBC W/PLT COUNT & AUTO [id number] 05:01:00 Test Item Value Reference Range Comments WHITE BLOOD CELL COUNT (BEAKER) (test djkv=549) 7.2 K/ L 3.5-10.5 RED BLOOD CELL COUNT (BEAKER) (test oafy=827) 4.62 M/ L 4.63-6.08 HEMOGLOBIN (BEAKER) (test mmnh=383) 13.4 GM/DL 13.7-17.5 HEMATOCRIT (BEAKER) (test vksg=201) 43.7 % 40.1-51.0 MEAN CORPUSCULAR VOLUME (BEAKER) (test svnb=625) 94.6 fL 79.0-92.2 MEAN CORPUSCULAR HEMOGLOBIN (BEAKER) (test 29.0 pg 25.7-32.2 wvni=079) MEAN CORPUSCULAR HEMOGLOBIN CONC (BEAKER) (test 30.7 GM/DL 32.3-36.5 tvmk=323) RED CELL DISTRIBUTION WIDTH (BEAKER) (test 13.4 % 11.6-14.4 ogqg=164) PLATELET COUNT (BEAKER) (test itey=582) 224 K/CU MM 150-450 MEAN PLATELET VOLUME (BEAKER) (test qmoh=039) 11.5 fL 9.4-12.4 NUCLEATED RED BLOOD CELLS (BEAKER) (test 0 /100 WBC 0-0 enxt=571) NEUTROPHILS RELATIVE PERCENT (BEAKER) (test 66 % zgue=282) LYMPHOCYTES RELATIVE PERCENT (BEAKER) (test 19 % yter=345) MONOCYTES RELATIVE PERCENT (BEAKER) (test 10 % klvr=304) EOSINOPHILS RELATIVE PERCENT (BEAKER) (test 4 % iwrs=805) BASOPHILS RELATIVE PERCENT (BEAKER) (test 1 % yuus=548) NEUTROPHILS ABSOLUTE COUNT (BEAKER) (test 4.80 K/ L 1.78-5.38 zkud=768) LYMPHOCYTES ABSOLUTE COUNT (BEAKER) (test 1.39 K/ L 1.32-3.57 ptzq=732) MONOCYTES ABSOLUTE COUNT (BEAKER) (test 0.72 K/ L 0.30-0.82 dvrd=758) EOSINOPHILS ABSOLUTE COUNT (BEAKER) (test 0.25 K/ L 0.04-0.54 blfo=640) BASOPHILS ABSOLUTE COUNT (BEAKER) (test 0.05 K/ L 0.01-0.08 ncmk=116) IMMATURE GRANULOCYTES-RELATIVE PERCENT (BEAKER) 0 % 0-1 (test lrny=3459) POCT-GLUCOSE [id number] 22:22:00 Test Item Value Reference Range Comments POC-GLUCOSE METER (BEAKER) 171 mg/dL 70-[address] [facility] [address] [facility] (test ltqj=0555) [facility] [address] ANG, TUNNEL CATH CENTRAL INS W/PORT [id number] 18:25:00Reason for exam:-> need for chemotherapy.FINAL REPORT Right internal jugular chest port insertion History: Patient requires access for chemotherapy administration. Modality: Sonography andfluoroscopy. Sedation: Versed 1.5 mg and fentanyl 50 mcg given intravenously for conscious sedation. Vital signs were monitored throughout the procedure by a nurse, and remained stable. Physician intra-service time was 30 minutes. Supervisor Statement Clerks: Singh Escamilla MD Tie In Machine Operator: Noé. Approach: Right internal jugular vein Estimated [...] needle into the right atrium. A 4 [place] micropuncture sheath was placed. A subcutaneous tunnel [...] MDReport Verified Date/Time: 07/19 18:25:29 Reading Location: [facility] P[address] Angio Body Reading Room POCT- GLUCOSE [id number] 16:53:00 Test Item Value Reference Range Comments POC-GLUCOSE METER (BEAKER) 124 mg/dL 70-110 TESTED AT [address] (test wckc=1176) [place] [address] TISSUE [id number] 16:29:00Surgical Pathology Report Case: [id number] Authorizing Provider: Julius Umanzor MD Collected: 07/18/2018 1502 Ordering Location: [address] Received: 07/19/2018 0751 Service Pathologist: Charo Brar MD Specimen: Large Intestine, Colon - Left/Descending , mass LEFT/DESCENDING COLON, BIOPSY: - INVASIVE MODERATELY DIFFERENTIATED ADENOCARCINOMA, SITUATED PREDOMINANTLY BENEATH THE MUSCULARIS MUCOSA, WITH FOCAL NECROSISMO/pl Signing Pathologist Direct Phone Line: [phone] signed by Charo Brar MD on 07/19/2018 at 4:29 [id number] s3Osvbuiee of colon, colonic mass Left descending colon [...] apoptosis. Other significant features are not noted.POCT-GLUCOSE [id number] 12:32:00 Test Item Value Reference Range Comments POC-GLUCOSE METER (BEAKER) 116 mg/dL 70-110 TESTED AT [address] (test mrkl=6504) [place] [id number] POCT-GLUCOSE [id number] 09:22:00 Test Item Value Reference Range Comments POC-GLUCOSE METER (BEAKER) 130 mg/dL 70-110 TESTED AT [address] (test bfeo=6120) [facility] [address] BASIC METABOLIC [id number] 06:03:00 Test Item Value Reference Range Comments SODIUM (BEAKER) (test 138 meq/L 136-145 ldpx=734) POTASSIUM (BEAKER) (test 3.3 meq/L 3.5-5.1 oula=042) CHLORIDE (BEAKER) (test 104 meq/L 98-107 hnyn=706) CO2 (BEAKER) (test 23 meq/L 22-29 yxnj=021) BLOOD UREA NITROGEN 6 mg/dL 7-21 (BEAKER) (test byfa=348) CREATININE (BEAKER) (test 0.76 mg/dL 0.57-1.25 vurf=507) GLUCOSE RANDOM (BEAKER) 122 mg/dL 70-105 (test zwcc=588) CALCIUM (BEAKER) (test 9.2 mg/dL 8.4-10.2 lzwc=751) EGFR (BEAKER) (test 128 mL/min/1.73 sq m ESTIMATED GFR IS NOT qksu=0567) ACCURATE CREATININE CLEARANCE IN PREDICTING GLOMERULAR FILTRATION RATE. ESTIMATED GFR IS NOT APPLICABLE FOR DIALYSIS PATIENTS. PROTHROMBIN [id number] 05:34:00 Test Item Value Reference Range Comments PROTIME (BEAKER) (test hugp=939) 14.2 seconds 11.7-14.7 INR (BEAKER) (test cnek=352) 1.1 <=5.9 RECOMMENDED COUMADIN/WARFARIN INR THERAPY RANGESSTANDARD DOSE: 2.0 - 3.0 Includes: PROPHYLAXIS forvenous thrombosis, systemic embolization; TREATMENT for venous thrombosis and/or pulmonary embolus.HIGH RISK: Target INR is 2.5-3.5 for patients with mechanical heart valves.CBC W/PLT COUNT & AUTO [id number] 05:29:00 Test Item Value Reference Range Comments WHITE BLOOD CELL COUNT (BEAKER) (test lshd=081) 9.1 K/ L 3.5-10.5 RED BLOOD CELL COUNT (BEAKER) (test dndx=044) 4.61 M/ L 4.63-6.08 HEMOGLOBIN (BEAKER) (test pkfp=148) 13.5 GM/DL 13.7-17.5 HEMATOCRIT (BEAKER) (test cjsr=298) 42.6 % 40.1-51.0 MEAN CORPUSCULAR VOLUME (BEAKER) (test ammt=263) 92.4 fL 79.0-92.2 MEAN CORPUSCULAR HEMOGLOBIN (BEAKER) (test 29.3 pg 25.7-32.2 paot=568) MEAN CORPUSCULAR HEMOGLOBIN CONC (BEAKER) (test 31.7 GM/DL 32.3-36.5 zrvs=616) RED CELL DISTRIBUTION WIDTH (BEAKER) (test 13.3 % 11.6-14.4 wyim=685) PLATELET COUNT (BEAKER) (test yrvo=548) 235 K/CU MM 150-450 MEAN PLATELET VOLUME (BEAKER) (test vsln=225) 11.5 fL 9.4-12.4 NUCLEATED RED BLOOD CELLS (BEAKER) (test 0 /100 WBC 0-0 lxxm=251) NEUTROPHILS RELATIVE PERCENT (BEAKER) (test 71 % fcje=769) LYMPHOCYTES RELATIVE PERCENT (BEAKER) (test 14 % jyks=151) MONOCYTES RELATIVE PERCENT (BEAKER) (test 11 % wlev=517) EOSINOPHILS RELATIVE PERCENT (BEAKER) (test 2 % robu=119) BASOPHILS RELATIVE PERCENT (BEAKER) (test 1 % crsg=999) NEUTROPHILS ABSOLUTE COUNT (BEAKER) (test 6.48 K/ L 1.78-5.38 wgsl=648) LYMPHOCYTES ABSOLUTE COUNT (BEAKER) (test 1.31 K/ L 1.32-3.57 otad=612) MONOCYTES ABSOLUTE COUNT (BEAKER) (test 0.98 K/ L 0.30-0.82 eepj=190) EOSINOPHILS ABSOLUTE COUNT (BEAKER) (test 0.20 K/ L 0.04-0.54 ngei=828) BASOPHILS ABSOLUTE COUNT (BEAKER) (test 0.05 K/ L 0.01-0.08 nekf=889) IMMATURE GRANULOCYTES-RELATIVE PERCENT (BEAKER) 1 % 0-1 (test msyc=6416) POCT-GLUCOSE [id number] 23:21:00 Test Item Value Reference Range Comments POC-GLUCOSE METER (BEAKER) 127 mg/dL 70-110 TESTED AT [address] (test xxwp=4363) [facility] [address] POCT-GLUCOSE [id number] 17:29:00 Test Item Value Reference Range Comments POC-GLUCOSE METER (BEAKER) 116 mg/dL 70-110 TESTED AT [address] (test rtfu=8289) [facility] [address] POCT-GLUCOSE [id number] 15:41:00 Test Item Value Reference Range Comments POC-GLUCOSE METER (BEAKER) 122 mg/dL 70-110 TESTED AT [address] (test dram=6297) [place] [id number] 15:40:00Medical Cytology Report Case: [id number] Authorizing Provider: Jessi Turcios MD Collected: 07/17/2018 1435 Ordering Location: [address] Received: 07/18/2018 0837 Service Pathologist: Alvin Arroyo MD Specimen: Peritoneal Fluid PERITONEAL FLUID (CYTOSPINS): - SUSPICIOUS FOR MALIGNANCY Signing Pathologist Direct Phone Line: [phone] signed by Alvin Arroyo MD on 07/18/2018 at 3:40 PMThere are a few atypical clusters that are suspicious for malignancy in a background of reactive mesothelial cells and chronic inflammation.[id number]; colon mass and omental nodules presents for CT-guided core biopsy of omentalnodulesPERITONEAL FLUIDPrepared 4 cytospins from 4 ml yellow blood-tinged fluidCollected: [id number]: [id number] [facility], Department of Pathology, [address] [place] [address], [facility], [facility] of [facility], [address] [place] [id number], [facility]gr[facility], Department of Pathology, [address] [place] [address], STQJ-GLUCOSE [id number] 11:53:00 Test Item Value Reference Range Comments POC-GLUCOSE METER (BEAKER) 111 mg/dL 70-110 TESTED AT [address] (test gfkb=9245) [place] [address] POCT-GLUCOSE [id number] 06:48:00 Test Item Value Reference Range Comments POC-GLUCOSE METER (BEAKER) 124 mg/dL 70-110 TESTED AT [address] (test rfjb=1902) [place] [address] POCT-GLUCOSE [id number] 23:34:00 Test Item Value Reference Range Comments POC-GLUCOSE METER (BEAKER) 133 mg/dL 70-110 TESTED AT [address] (test elkp=7225) [place] [id number] BODY FLUID CELL COUNT WITH [id number] 18:38:00 Test Item Value Reference Range Comments APPEARANCE FLUID (BEAKER) (test kver=408) Slightly Bloody Clear COLOR FLUID (BEAKER) (test ppfu=037) Yarelis Colorless, Straw RBC FLUID (BEAKER) (test vgfq=272) 9500 /cu mm <=1 ADJUSTED WBC FLUID (BEAKER) (test 1043 /cu mm <=5 bvda=1416) LINING CELLS (BEAKER) (test cufl=6305) 42 /cu mm <=1 NEUTROPHILS FLUID (BEAKER) (test qsto=7551) 17 % LYMPHS FLUID (BEAKER) (test wsde=174) 28 % MONO/MACROPHAGE FLUID (BEAKER) (test 55 % dvzd=868) EOSINOPHILS FLUID (BEAKER) (test cmnu=332) 0 % BASO FLUID (BEAKER) (test clqi=930) 0 % CONTAINER BODY FLUID (BEAKER) (test EDTA Tube zwlb=3413) POCT-GLUCOSE [id number] 17:54:00 Test Item Value Reference Range Comments POC-GLUCOSE METER (BEAKER) 145 mg/dL 70-110 TESTED AT [address] (test ywev=8607) [place] [address] [address], BIOPSY, [id number] 16:57:00Reason for exam:->Need biopsy of omentum for [...] MDReport Verified Date/Time: 2017 16:57:37 Reading Location: [address] Body Reading Room ALBUMIN , BODY [id number] 16:12:00 Test Item Value Reference Range Comments ALBUMIN FLUID (BEAKER) (test ktri=936) 2.9 gm/dL Reference Range: No Normals Assay performance has not been validated for this type of specimen.PROTEIN, BODY [id number] 16:12:00 Test Item Value Reference Range Comments PROTEIN FLUID (BEAKER) (test ygid=662) 5.0 g/dL Absence of reference range indicates that normals have not been defined.Assay performance has not been validated for this type of specimen.PT/[id number] 13:18:00 Test Item Value Reference Range Comments PROTIME (BEAKER) (test peji=886) 14.6 seconds 11.7-14.7 INR (BEAKER) (test hgdx=836) 1.1 <=5.9 PARTIAL THROMBOPLASTIN TIME (BEAKER) (test 27.7 seconds 22.5-36.0 nudp=554) RECOMMENDED COUMADIN/WARFARIN INR THERAPY RANGESSTANDARD DOSE: 2.0 - 3.0 Includes: PROPHYLAXIS forvenous thrombosis, systemic embolization; TREATMENT for venous thrombosis and/or pulmonary embolus.HIGH RISK: Target INR is 2.5-3.5 for patients with mechanical heart valves.CBC W/PLT COUNT & AUTO [id number] 13:08:00 Test Item Value Reference Range Comments WHITE BLOOD CELL COUNT (BEAKER) (test tmsq=410) 10.4 K/ L 3.5-10.5 RED BLOOD CELL COUNT (BEAKER) (test ljqd=643) 4.53 M/ L 4.63-6.08 HEMOGLOBIN (BEAKER) (test dlim=271) 13.1 GM/DL 13.7-17.5 HEMATOCRIT (BEAKER) (test rwki=723) 43.3 % 40.1-51.0 MEAN CORPUSCULAR VOLUME (BEAKER) (test pqvv=337) 95.6 fL 79.0-92.2 MEAN CORPUSCULAR HEMOGLOBIN (BEAKER) (test 28.9 pg 25.7-32.2 snxb=421) MEAN CORPUSCULAR HEMOGLOBIN CONC (BEAKER) (test 30.3 GM/DL 32.3-36.5 urjf=064) RED CELL DISTRIBUTION WIDTH (BEAKER) (test 13.5 % 11.6-14.4 oytc=736) PLATELET COUNT (BEAKER) (test rfun=284) 236 K/CU MM 150-450 MEAN PLATELET VOLUME (BEAKER) (test lvnh=696) 11.4 fL 9.4-12.4 NUCLEATED RED BLOOD CELLS (BEAKER) (test 0 /100 WBC 0-0 lvvr=487) NEUTROPHILS RELATIVE PERCENT (BEAKER) (test 73 % wedg=134) LYMPHOCYTES RELATIVE PERCENT (BEAKER) (test 15 % ekgj=546) MONOCYTES RELATIVE PERCENT (BEAKER) (test 10 % uhgg=176) EOSINOPHILS RELATIVE PERCENT (BEAKER) (test 1 % ggmc=213) BASOPHILS RELATIVE PERCENT (BEAKER) (test 1 % qzmj=885) NEUTROPHILS ABSOLUTE COUNT (BEAKER) (test 7.56 K/ L 1.78-5.38 sbic=218) LYMPHOCYTES ABSOLUTE COUNT (BEAKER) (test 1.60 K/ L 1.32-3.57 qrno=433) MONOCYTES ABSOLUTE COUNT (BEAKER) (test 1.01 K/ L 0.30-0.82 ofcx=210) EOSINOPHILS ABSOLUTE COUNT (BEAKER) (test 0.14 K/ L 0.04-0.54 fupy=683) BASOPHILS ABSOLUTE COUNT (BEAKER) (test 0.06 K/ L 0.01-0.08 slnc=382) IMMATURE GRANULOCYTES-RELATIVE PERCENT (BEAKER) 0 % 0-1 (test prdt=8415) CT, [id number] 12:37:00CT abdomen pelvis with IV and PO [...] MDReport Verified Date/Time: 07/17/2018 12:37:32 Reading Location: [address] Body Reading Room CT, CHEST, WITH [id number] 12:37:00FINAL REPORT TECHNIQUE: CT of the [...] Duffy Verified Date/Time: 07/17/2018 12:37:32 Reading Location: [address] Body Reading Room 12 :37 PMPOCT-GLUCOSE [id number] 12:31:00 Test Item Value Reference Range Comments POC-GLUCOSE METER (BEAKER) 188 mg/dL 70-[address] [facility] [address] [facility] (test bfxq=0559) [facility] [address] CBC W/PLT COUNT & AUTO [id number] 12:21:00 Test Item Value Reference Range Comments WHITE BLOOD CELL COUNT (BEAKER) (test wxec=791) 10.1 K/ L 3.5-10.5 RED BLOOD CELL COUNT (BEAKER) (test odek=084) 4.41 M/ L 4.63-6.08 HEMOGLOBIN (BEAKER) (test yban=905) 13.1 GM/DL 13.7-17.5 HEMATOCRIT (BEAKER) (test qibh=910) 42.6 % 40.1-51.0 MEAN CORPUSCULAR VOLUME (BEAKER) (test dyqm=396) 96.6 fL 79.0-92.2 MEAN CORPUSCULAR HEMOGLOBIN (BEAKER) (test 29.7 pg 25.7-32.2 lbgu=474) MEAN CORPUSCULAR HEMOGLOBIN CONC (BEAKER) (test 30.8 GM/DL 32.3-36.5 udmy=919) RED CELL DISTRIBUTION WIDTH (BEAKER) (test 14.0 % 11.6-14.4 cjen=145) PLATELET COUNT (BEAKER) (test arse=727) 232 K/CU MM 150-450 MEAN PLATELET VOLUME (BEAKER) (test vlnl=498) 12.5 fL 9.4-12.4 NUCLEATED RED BLOOD CELLS (BEAKER) (test 0 /100 WBC 0-0 nuhw=729) NEUTROPHILS RELATIVE PERCENT (BEAKER) (test 73 % qdxz=688) LYMPHOCYTES RELATIVE PERCENT (BEAKER) (test 14 % nccg=202) MONOCYTES RELATIVE PERCENT (BEAKER) (test 10 % tgwf=422) EOSINOPHILS RELATIVE PERCENT (BEAKER) (test 1 % rsib=184) BASOPHILS RELATIVE PERCENT (BEAKER) (test 1 % behu=802) NEUTROPHILS ABSOLUTE COUNT (BEAKER) (test 7.40 K/ L 1.78-5.38 nayl=599) LYMPHOCYTES ABSOLUTE COUNT (BEAKER) (test 1.45 K/ L 1.32-3.57 tqzo=872) MONOCYTES ABSOLUTE COUNT (BEAKER) (test 1.01 K/ L 0.30-0.82 awlt=461) EOSINOPHILS ABSOLUTE COUNT (BEAKER) (test 0.13 K/ L 0.04-0.54 bvno=677) BASOPHILS ABSOLUTE COUNT (BEAKER) (test 0.07 K/ L 0.01-0.08 upsg=435) IMMATURE GRANULOCYTES-RELATIVE PERCENT (BEAKER) 0 % 0-1 (test gcyn=9345) HEMOGLOBIN [id number] 10:07:00 Test Item Value Reference Range Comments HEMOGLOBIN A1C (BEAKER) (test fgoe=628) 5.6 % 4.3-6.1 BASIC METABOLIC [id number] 06:33:00 Test Item Value Reference Range Comments SODIUM (BEAKER) (test 138 meq/L 136-145 iyhf=093) POTASSIUM (BEAKER) (test 3.4 meq/L 3.5-5.1 cyji=513) CHLORIDE (BEAKER) (test 105 meq/L 98-107 icyx=251) CO2 (BEAKER) (test 24 meq/L 22-29 xseg=659) BLOOD UREA NITROGEN 10 mg/dL 7-21 (BEAKER) (test ujgh=427) CREATININE (BEAKER) (test 0.80 mg/dL 0.57-1.25 iryw=508) GLUCOSE RANDOM (BEAKER) 122 mg/dL 70-105 (test pzbh=337) CALCIUM (BEAKER) (test 8.5 mg/dL 8.4-10.2 lrol=414) EGFR (BEAKER) (test 121 mL/min/1.73 sq m ESTIMATED GFR IS NOT zvdo=0841) ACCURATE CREATININE CLEARANCE IN PREDICTING GLOMERULAR FILTRATION RATE. ESTIMATED GFR IS NOT APPLICABLE FOR DIALYSIS PATIENTS. POCT-GLUCOSE [id number] 05:17:00 Test Item Value Reference Range Comments POC-GLUCOSE METER (BEAKER) 133 mg/dL 70-110 TESTED AT [address] (test lgzz=3205) [facility] [address] POCT-GLUCOSE [id number] 23:45:00 Test Item Value Reference Range Comments POC-GLUCOSE METER (BEAKER) 121 mg/dL 70-110 TESTED AT [place] [id number] [facility] (test rgrg=2404) [facility] [address] POCT-GLUCOSE [id number] 17:45:00 Test Item Value Reference Range Comments POC-GLUCOSE METER (BEAKER) 112 mg/dL 70-110 TESTED AT [address] (test yuof=1686) [place] [address] [id number] 14:30:00 Test Item Value Reference Range Comments ALBUMIN (BEAKER) (test mwpv=1195) 3.9 g/dL 3.5-5.0 POCT-GLUCOSE [id number] 12:40:00 Test Item Value Reference Range Comments POC-GLUCOSE METER (BEAKER) 110 mg/dL 70-110 TESTED AT [address] (test blrm=9748) [place] [address] POCT-GLUCOSE [id number] 08:32:00 Test Item Value Reference Range Comments POC-GLUCOSE METER (BEAKER) 137 mg/dL 70-110 TESTED AT [address] (test gobo=9208) [place] [address] BASIC METABOLIC [id number] 06:10:00 Test Item Value Reference Range Comments SODIUM (BEAKER) (test 143 meq/L 136-145 eznj=621) POTASSIUM (BEAKER) (test 3.4 meq/L 3.5-5.1 rbso=707) CHLORIDE (BEAKER) (test 105 meq/L 98-107 ssrm=038) CO2 (BEAKER) (test 26 meq/L 22-29 rzme=069) BLOOD UREA NITROGEN 13 mg/dL 7-21 (BEAKER) (test gode=836) CREATININE (BEAKER) (test 0.96 mg/dL 0.57-1.25 eque=453) GLUCOSE RANDOM (BEAKER) 90 mg/dL 70-105 (test cgzx=206) CALCIUM (BEAKER) (test 9.1 mg/dL 8.4-10.2 omka=067) EGFR (BEAKER) (test 98 mL/min/1.73 sq m ESTIMATED GFR IS NOT wcrp=1990) ACCURATE CREATININE CLEARANCE IN PREDICTING GLOMERULAR FILTRATION RATE. ESTIMATED GFR IS NOT APPLICABLE FOR DIALYSIS PATIENTS. POCT-GLUCOSE [id number] 00:28:00 Test Item Value Reference Range Comments POC-GLUCOSE METER (BEAKER) 108 mg/dL 70-110 TESTED AT [address] (test cdfi=4259) [place] [address] POCT-GLUCOSE [id number] 00:28:00 Test Item Value Reference Range Comments POC-GLUCOSE METER (BEAKER) 107 mg/dL 70-[address] [facility] [address] [facility] (test ocgm=4636) [facility] [address] POCT-GLUCOSE [id number] 17:40:00 Test Item Value Reference Range Comments POC-GLUCOSE METER (BEAKER) 137 mg/dL 70-110 TESTED AT [address] (test gjke=7144) [facility] [address] [place], CERTIFIED TRAVEL COUNSELOR IN OR/30 MINUTE [id number] 14:44:00INTRA OP IMAGINGReason for exam:->BOWEL OBSTRUCTIONFINAL REPORT Intraoperative fluoroscopy. CLINICAL HISTORY: BOWEL OBSTRUCTION.FINDINGS: Seven fluoroscopically acquired images were acquired by the referring physician. An intraoperative verbal report was not requested. Fluoroscopy was not performed by the undersigned. Fluoroscopy time: 129 seconds. Seven images. Signed: Rj Angel Verified Date/Time: 14:44:01 Reading Location: [address] Ortho Consult Reading Room POCT- GLUCOSE [id number] 12:28:00 Test Item Value Reference Range Comments POC-GLUCOSE METER (BEAKER) 154 mg/dL 70-110 TESTED AT [address] (test manm=8087) [facility] [address] CARCINOEMBRYONIC ANTIGEN (CEA)2018-07-15 11:45:00 Test Item Value Reference Range Comments CARCINOEMBRYONIC ANTIGEN (BEAKER) (test 766.0 ng/mL 0.0-5.0 gzcm=656) RAD, CHEST, 1 VIEW, NON [id number] 11:43:00Reason for exam:->pnaShould this be performed at [...] Mixon Verified Date/Time: 2017 11:43:39 Reading Location: [facility] [address] Body Reading Room HEPATIC FUNCTION [id number] 09:19:00 Test Item Value Reference Range Comments TOTAL PROTEIN (BEAKER) (test ftyv=883) 8.1 gm/dL 6.0-8.3 ALBUMIN (BEAKER) (test luqk=6332) 4.4 g/dL 3.5-5.0 BILIRUBIN TOTAL (BEAKER) (test jvdi=824) 0.6 mg/dL 0.2-1.2 BILIRUBIN DIRECT (BEAKER) (test whfx=379) 0.3 mg/dL 0.1-0.5 ALKALINE PHOSPHATASE (BEAKER) (test mrdh=039) 58 U/L 40-150 AST (SGOT) (BEAKER) (test jgse=769) 16 U/L 5-34 ALT (SGPT) (BEAKER) (test oaqh=808) 19 U/L 6-55 POCT-GLUCOSE [id number] 08:21:00 Test Item Value Reference Range Comments POC-GLUCOSE METER (BEAKER) 130 mg/dL 70-[address] [facility] [address] [facility] (test arej=5396) [facility] [address] RESPIRATORY PANEL [id number] 07:29:00 Test Item Value Reference Range Comments HUMAN METAPNEUMOVIRUS (BEAKER) (test Not detected Not detected, Equivocal dzwx=3825) RHINOVIRUS (BEAKER) (test fszi=1840) Not detected Not detected, Equivocal INFLUENZA A (BEAKER) (test orno=1662) Not detected Not detected, Equivocal INFLUENZA A (NO SUBTYPE) (test Not detected, Equivocal iwhw=3242) INFLUENZA A SUBTYPE H1 (BEAKER) (test Not detected, Equivocal rjlm=2035) INFLUENZA A SUBTYPE H3 (BEAKER) (test Not detected, Equivocal hbav=5051) INFLUENZA A SUBTYPE H1-2009 (BEAKER) Not detected, Equivocal (test uedv=3811) INFLUENZA B (BEAKER) (test ypvy=9764) Not detected Not detected, Equivocal RESPIRATORY SYNCYTIAL VIRUS (BEAKER) Not detected Not detected, Equivocal (test rmsx=8138) PARAINFLUENZA VIRUS 1 (BEAKER) (test Not detected Not detected, Equivocal itdg=6914) PARAINFLUENZA VIRUS 2 (BEAKER) (test Not detected Not detected, Equivocal bpfe=6084) PARAINFLUENZA VIRUS 3 (BEAKER) (test Not detected Not detected, Equivocal kssu=4791) PARAINFLUENZA VIRUS 4 (BEAKER) (test Not detected Not detected, Equivocal hmbc=0532) ADENOVIRUS (BEAKER) (test upuq=6214) Not detected Not detected, Equivocal CORONAVIRUS 229E (BEAKER) (test Not detected Not detected, Equivocal xupw=5957) CORONAVIRUS HKU1 (BEAKER) (test Not detected Not detected, Equivocal wlmu=9854) CORONAVIRUS NL63 (BEAKER) (test Not detected Not detected, Equivocal fqbd=0940) CORONAVIRUS OC43 (BEAKER) (test Not detected Not detected, Equivocal etex=3925) BORDETELLA PERTUSSIS (BEAKER) (test Not detected Not detected, Equivocal jrla=5979) CHLAMYDOPHILA PNEUMONIAE (BEAKER) (test Not detected Not detected, Equivocal peid=2294) MYCOPLASMA PNEUMONIAE (BEAKER) (test Not detected Not detected, Equivocal udxy=3978) Other viruses and bacteria not targeted by this PCR panel cannot be excluded; therefore clinical correlation and follow up of serology, culture results, and other molecular studies is required. The results are not intended to be used as the sole means for clinical diagnosis or patient management decisions. This sample was tested at the [facility] Molecular Diagnostics Laboratory using the [email or web address] FilmArray Respiratory Panel. It is FDA cleared and has been verified and approved by the [facility]ostics Laboratory for clinical use on nasal swab specimens. It is not FDA-cleared for use on bronchial wash/lavage samples. However, for this sample type, validation was performed and test characteristics were determined and approved, by [facility] [employer] [facility] laboratory for clinical use under the Clinical Laboratory Improvement Amendments (CLIA) of 1988 requirements. Therefore, FDA clearance isnot required. This laboratory is CLIA-certified and [employer] (CAP)-accredited to perform high complexity testing.LEGIONELLA ANTIGEN, [id number] 04:44:00 Test Item Value Reference Range Comments L. PNEUMOPHILA SEROGP 1 Negative - see Negative for L. UR AG (BEAKER) (test comment pneumophila serogroup 1 jqwa=3374) antigen, suggesting no recent or current infection with this serogroup. Legionellosis cannot be ruled out since other serogroups and species may cause disease. STREP PNEUMONIAE [id number] 04:43:00 Test Item Value Reference Range Comments STREP PNEUMONIAE ANTIGEN Presumptive negative for Presumptive negative for (BEAKER) (test pneumococcal pneumonia - pneumococcal pneumonia - qiob=3838) see comment see commen Presumptive negative for pneumococcal pneumonia, suggesting no current or recent pneumococcal infection. Infection due to S. pneumoniae cannot be ruled out since the antigen present in the sample may be below the detection limit of the test.POCT-GLUCOSE [id number] 01:51:00 Test Item Value Reference Range Comments POC-GLUCOSE METER (BEAKER) 127 mg/dL 70-[address] [facility] [address] [facility] (test libo=3745) [facility] [address] BASIC METABOLIC [id number] 00:38:00 Test Item Value Reference Range Comments SODIUM (BEAKER) (test 136 meq/L 136-145 akfr=288) POTASSIUM (BEAKER) (test 3.3 meq/L 3.5-5.1 zdsl=636) CHLORIDE (BEAKER) (test 101 meq/L 98-107 sjzf=308) CO2 (BEAKER) (test 22 meq/L 22-29 vlqn=081) BLOOD UREA NITROGEN 11 mg/dL 7-21 (BEAKER) (test zgie=331) CREATININE (BEAKER) (test 0.85 mg/dL 0.57-1.25 eoaa=408) GLUCOSE RANDOM (BEAKER) 114 mg/dL 70-105 (test hfqm=986) CALCIUM (BEAKER) (test 9.3 mg/dL 8.4-10.2 lyra=711) EGFR (BEAKER) (test 113 mL/min/1.73 sq m ESTIMATED GFR IS NOT iofh=7392) ACCURATE CREATININE CLEARANCE IN PREDICTING GLOMERULAR FILTRATION RATE. ESTIMATED GFR IS NOT APPLICABLE FOR DIALYSIS PATIENTS. RAPID INFLUENZA A&B [id number] 00:32:00 Test Item Value Reference Range Comments RAPID INFLUENZA A AG (BEAKER) (test Negative Negative, Inconclusive qniy=6466) RAPID INFLUENZA B AG (BEAKER) (test Negative Negative, Inconclusive gcjm=6927) CBC W/PLT COUNT & AUTO [id number] 22:58:00 Test Item Value Reference Range Comments WHITE BLOOD CELL COUNT (BEAKER) (test rgch=050) 10.9 K/ L 3.5-10.5 RED BLOOD CELL COUNT (BEAKER) (test imkn=313) 4.96 M/ L 4.63-6.08 HEMOGLOBIN (BEAKER) (test tnrq=219) 14.5 GM/DL 13.7-17.5 HEMATOCRIT (BEAKER) (test bvzz=671) 46.1 % 40.1-51.0 MEAN CORPUSCULAR VOLUME (BEAKER) (test ckkf=521) 92.9 fL 79.0-92.2 MEAN CORPUSCULAR HEMOGLOBIN (BEAKER) (test 29.2 pg 25.7-32.2 citq=964) MEAN CORPUSCULAR HEMOGLOBIN CONC (BEAKER) (test 31.5 GM/DL 32.3-36.5 oxns=866) RED CELL DISTRIBUTION WIDTH (BEAKER) (test 13.9 % 11.6-14.4 ykbk=563) PLATELET COUNT (BEAKER) (test hera=980) 277 K/CU MM 150-450 MEAN PLATELET VOLUME (BEAKER) (test doll=396) 11.2 fL 9.4-12.4 NUCLEATED RED BLOOD CELLS (BEAKER) (test 0 /100 WBC 0-0 ktlq=616) NEUTROPHILS RELATIVE PERCENT (BEAKER) (test 81 % clii=165) LYMPHOCYTES RELATIVE PERCENT (BEAKER) (test 11 % uilv=040) MONOCYTES RELATIVE PERCENT (BEAKER) (test 7 % ohjw=503) EOSINOPHILS RELATIVE PERCENT (BEAKER) (test 0 % wqum=422) BASOPHILS RELATIVE PERCENT (BEAKER) (test 0 % kihz=192) NEUTROPHILS ABSOLUTE COUNT (BEAKER) (test 8.86 K/ L 1.78-5.38 wzlz=489) LYMPHOCYTES ABSOLUTE COUNT (BEAKER) (test 1.21 K/ L 1.32-3.57 ixob=514) MONOCYTES ABSOLUTE COUNT (BEAKER) (test 0.79 K/ L 0.30-0.82 zodl=491) EOSINOPHILS ABSOLUTE COUNT (BEAKER) (test 0.01 K/ L 0.04-0.54 ftey=311) BASOPHILS ABSOLUTE COUNT (BEAKER) (test 0.02 K/ L 0.01-0.08 ueoe=337) IMMATURE GRANULOCYTES-RELATIVE PERCENT (RadLogicsAKER) 1 % 0-1 (test pdua=8271)
[2019-06-15] MEDS ORDERED: NA CHLORIDE 0.9% 1,000 ML ONE (09:14)
[2019-06-15 09:23] LABS: Absolute Lymphocytes (CBC) 1.1 K/uL (0.7-4.9); Basophils % 0.3 % (0-1.3); Hematocrit 40.5 % (39.6-49.0); MPV 9.9 fL (7.6-11.3); RBC Red Blood Cell Count 4.27 M/uL (4.33-5.43)
[2019-06-15 09:45] LABS: BUN Blood Urea Nitrogen 18 mg/dL (7-18); Bicarbonate 26 mmol/L (21-32); Glucose Level 346 mg/dL (74-106); Potassium 4.2 mmol/L (3.5-5.1); Sodium Level 140 mmol/L (136-145)
--- NOTE | 2019-06-15 09:54 | RAD REPORT ---
EXAM DESCRIPTION: RAD -Hand Left 3 View - 06/15/2019 9:42 am CLINICAL HISTORY: Left hand pain FINDINGS: No fracture. Mild lateral subluxation third distal phalanx Moderate to marked narrowing third DIP joint with osteophytes and erosions compatible with an erosive arthropathy
[2019-06-15 09:56] LABS: Urine Blood 2+ (NEG); Urine Glucose 2+ (NEG); Urine Protein NEGATIVE (NEG); Urine Specific Gravity 1.015 (1.005-1.030)
--- NOTE | 2019-06-15 10:34 | ER ---
Nurse's Notes [facility] Name: Shai Gonzalez Jr Age: 58 yrs Sex: Male : 1960 Arrival Date: 06/15/2019 Time: 08:24 Bed 10 Private MD: Trent Santiago H Diagnosis: Hyperglycemia, unspecified;Contusion of left middle finger without damage to nail Presentation: 06/15 08:36 Presenting complaint: Patient states: "my blood sugar has been high for a year and it aa5 goes down with the pills but it comes right back up, it's roderick around 365". Pt also c/o pain to left middle finger, pt states "I was messing with my horse and hurt my finger". Pt reports he is on chemotherapy for colon cancer x 1 year ago. Transition of care: patient was not received from another setting of care. Onset of symptoms was June 2019. Risk Assessment: Do you want to hurt yourself or someone else? Patient reports no desire to harm self or others. Initial Sepsis Screen: Does the patient meet any 2 criteria? No. Patient's initial sepsis screen is negative. Does the patient have a suspected source of infection? No. Patient's initial sepsis screen is negative. Care prior to arrival: None. 08:36 Method Of Arrival: Ambulatory aa5 08:42 Acuity: MARIA INES 3 aa5 Historical: - Allergies: 08:40 No Known Allergies; aa5 - Home Meds: 08:40 Tradjenta 5 mg oral tab 1 tab once daily [Active]; glimepiride 4 mg Oral tab 1 tab once aa5 daily [Active]; tamsulosin 0.4 mg oral cp24 1 cap once daily [Active]; morphine 15 mg Oral tab every 12 hours [Active]; carvedilol 12.5 mg oral tab 2 times per day [Active]; amlodipine 10 mg tab 1 tab once daily [Active]; ondansetron HCl 8 mg oral tab as needed [Active]; hydrocodone-acetaminophen 10-325 mg oral tab every 6 hours [Active]; - PMHx: 08:40 Asthma; Back pain; colon cancer; Diabetes - NIDDM; Gout; Hypertension; aa5 - PSHx: 08:40 Stent in bowel; aa5 - Immunization history:: Adult Immunizations unknown. - Ebola Screening: : No symptoms or risks identified at this time. - Social history:: Smoking status: unknown. - Family history:: not pertinent. - Hospitalizations: : No recent hospitalization is reported. Screenin:16 Abuse screen: Denies threats or abuse. Denies injuries from another. Nutritional jl7 screening: No deficits noted. Tuberculosis screening: No symptoms or risk factors identified. Fall Risk IV access (20 points). Total Holliday Fall Scale indicates No Risk (0-24 pts). Assessment: 09:16 Pain: Complains of pain in left middle finger Pain currently is 15 out of 10 on a pain jl7 scale. Pain began 1 day ago. Neuro: Level of Consciousness is awake, alert, obeys commands, Oriented to person, place, time, situation. Cardiovascular: Patient's skin is warm and dry. Respiratory: Airway is patent Respiratory effort is even, unlabored, Respiratory pattern is regular, symmetrical. GI: Abdomen is round obese. : Reports urinary frequency. EENT: No signs and/or symptoms were reported regarding the EENT system. Derm: Skin is pink, warm \\T\\ dry. Musculoskeletal: Bony deformity noted of dorsal aspect of distal phalanx of left middle finger. 10:15 Reassessment: Patient appears in no apparent distress at this time. No changes from jl7 previously documented assessment. Patient and/or family updated on plan of care and expected duration. Pain level reassessed. Patient is alert, oriented x 3, equal unlabored respirations, skin warm/dry/pink. 11:00 Reassessment: Pt will be discharged once fluids are done infusing. jl7 Vital Signs: 08:43 BP 106 / 67; Pulse 75; Resp 18 S; Temp 98.2(O); Pulse Ox 98% on R/A; Weight 137.89 kg aa5 (R); Height 5 ft. 11 in. (180.34 cm) (R); 11:00 BP 120 / 66; Pulse 75; Resp 16 S; Pulse Ox 98% on R/A; jl7 08:43 Body Mass Index 42.40 (137.89 kg, 180.34 cm) aa5 ED Course: 08:24 Patient arrived in ED. rg4 08:25 Trent aSntiago DO is Private Physician. rg4 08:36 Arm band placed on. aa5 08:43 Triage completed. aa5 08:51 Mookie Leos MD is Attending Physician. rn 09:06 Initial lab(s) drawn, by ky, sent to lab. Inserted saline lock: 22 gauge in right hand, jl7 using aseptic technique. Blood collected. 09:16 Patient has correct armband on for positive identification. Bed in low position. Call [facility] light in reach. Pulse ox on. NIBP on. 09:16 Urine collected: clean catch specimen, clear. [facility] 09:16 Urine Microscopic Only Sent. [facility] 09:44 XRAY Hand LEFT 3 View In Process Unspecified. EDMS 10:32 Trent Santiago DO is Referral Physician. rn 11:00 No provider procedures requiring assistance completed. jl7 12:02 IV discontinued, intact, bleeding controlled, No redness/swelling at site. Pressure jl7 dressing applied. Administered Medications: 09:30 Drug: NS 0.9% 1000 ml Route: IV; Rate: 1000 ml; Site: right hand; jl7 12:02 Follow up: IV Status: Completed infusion; IV Intake: 1000ml jl7 10:50 Drug: Insulin Regular Human 5 units {Co-Signature: sg (Tino Clark RN).} Route: Sub-Q; jl7 Site: right lower abdomen; 12:01 Follow up: Response: No adverse reaction; Blood sugar is lowered jl7 10:50 Drug: [place] 10 mg-325 mg 1 tabs Route: PO; jl7 11:20 Follow up: Response: No adverse reaction; Pain is decreased jl7 Point of Care Testing: Blood Glucose: 08:42 Blood Glucose: 358 mg/dL; aa5 12:02 Blood Glucose: 306 mg/dL; jl7 Ranges: Intake: 12:02 IV: 1000ml; Total: 1000ml. jl7 Outcome: 10:33 Discharge ordered by . rn 12:02 Discharged to home ambulatory. jl7 12:02 Condition: stable 12:02 Discharge instructions given to patient, Instructed on discharge instructions, follow up and referral plans. medication usage, Demonstrated understanding of instructions, follow-up care, medications, Prescriptions given X 1. 12:03 Patient left the ED. jl7 Addendum: 06/18/2019 11:43 Addendum: Culture Results: Positive urine culture. Phone call Attempt #1 unable to a a5 leave voicemail. Signatures: Dispatcher [employer] Mookie Ashton MD MD rn Calderon, Audri, JUAN M RN 5 Ricarda Noyola [facility] James Cruz RN RN jl7 Tino Clark RN Corrections: (The following items were deleted from the chart) 06/15 08:43 08:36 Presenting complaint: Patient states: "my blood sugar has been high for a year aa5 and it goes down with the pills but it comes right back up, it's roderick around 365". Pt also c/o pain to left middle finger, pt states "I was messing with my horse and hurt my finger". aa5 08:55 08:53 James Cruz, JUAN M is Primary Nurse. jl7 aa 13:40 08:53 Meagan Patel, JUAN M is Primary Nurse. 5 13:40 08:53 Primary Nurse role handed off by Meagan Patel RN jl7 5
--- NOTE | 2019-06-15 10:34 | EDPHYS ---
Physician Documentation [facility] Name: Shai Gonzalez Jr Age: 58 yrs Sex: Male : 1960 Arrival Date: 06/15/2019 Time: 08:24 Bed 10 Private MD: Trent Santiago H ED Physician Mookie Leos HPI: 06/15 10:17 This 58 yrs old Black Male presents to ER via Ambulatory with complaints of Hand rn Injury, High Blood Sugar. 10:17 The patient or guardian reports injury. The complaints affect the PIP of left middle rn finger. Onset: The symptoms/episode began/occurred yesterday. Modifying factors: The symptoms are alleviated by nothing, the symptoms are aggravated by movement. Severity of symptoms: At their worst the symptoms were moderate, in the emergency department the symptoms are unchanged. The patient has not experienced similar symptoms in the past. The patient has not recently seen a physician. Reports here for 2 reasons. States blood sugar high for 2 weeks, has increased thirst and urination. Also here for left hand 3rd finger injured in rope with horse. Has gout as well. . Historical: - Allergies: 08:40 No Known Allergies; aa5 - Home Meds: 08:40 Tradjenta 5 mg oral tab 1 tab once daily [Active]; glimepiride 4 mg Oral tab 1 tab once aa5 daily [Active]; tamsulosin 0.4 mg oral cp24 1 cap once daily [Active]; morphine 15 mg Oral tab every 12 hours [Active]; carvedilol 12.5 mg oral tab 2 times per day [Active]; amlodipine 10 mg tab 1 tab once daily [Active]; ondansetron HCl 8 mg oral tab as needed [Active]; hydrocodone-acetaminophen 10-325 mg oral tab every 6 hours [Active]; - PMHx: 08:40 Asthma; Back pain; colon cancer; Diabetes - NIDDM; Gout; Hypertension; aa5 - PSHx: 08:40 Stent in bowel; aa5 - Immunization history:: Adult Immunizations unknown. - Ebola Screening: : No symptoms or risks identified at this time. - Social history:: Smoking status: unknown. - Family history:: not pertinent. - Hospitalizations: : No recent hospitalization is reported. ROS: 10:17 Constitutional: Negative for fever, chills, and weight loss, Eyes: Negative for injury, rn pain, redness, and discharge, Neck: Negative for injury, pain, and swelling, Cardiovascular: Negative for chest pain, palpitations, and edema, Respiratory: Negative for shortness of breath, cough, wheezing, and pleuritic chest pain, Abdomen/GI: Negative for abdominal pain, nausea, vomiting, diarrhea, and constipation, MS/Extremity: + left middle finger injury and pain Skin: Negative for injury, rash, and discoloration, Neuro: Negative for headache, weakness, numbness, tingling, and seizure. Exam: 10:17 Constitutional: This is a well developed, well nourished patient who is awake, alert, rn and in no acute distress. Head/Face: Normocephalic, atraumatic. Eyes: Pupils equal round and reactive to light, extra-ocular motions intact. ENT: MMM Cardiovascular: Regular rate and rhythm. No pulse deficits. Respiratory: Lungs have equal breath sounds bilaterally, clear to auscultation. No increased work of breathing, no retractions or nasal flaring. MS/ Extremity: Pulses equal, no cyanosis. Neurovascular intact. + left middle finger with mild tenderness PIP. + bony chronic deformity of left 3rd DIP. NO fusiform swelling. No flexor tenoxynovitis. Neuro: Awake and alert, GCS 15, oriented to person, place, time, and situation. Cranial nerves II-XII grossly intact. Motor strength 5/5 in all extremities. Sensory grossly intact. Cerebellar exam normal. Normal gait. Vital Signs: 08:43 BP 106 / 67; Pulse 75; Resp 18 S; Temp 98.2(O); Pulse Ox 98% on R/A; Weight 137.89 kg aa5 (R); Height 5 ft. 11 in. (180.34 cm) (R); 11:00 BP 120 / 66; Pulse 75; Resp 16 S; Pulse Ox 98% on R/A; jl7 08:43 Body Mass Index 42.40 (137.89 kg, 180.34 cm) aa5 MDM: 08:52 Patient medically screened. rn 10:22 Differential diagnosis: dislocation, closed fracture. Data reviewed: vital signs, rn nurses notes, lab test result(s), radiologic studies, plain films, and as a result, I will discharge patient. Counseling: I had a detailed discussion with the patient and/or guardian regarding: the historical points, exam findings, and any diagnostic results supporting the discharge/admit diagnosis, lab results, radiology results, the need for outpatient follow up, to return to the emergency department if symptoms worsen or persist or if there are any questions or concerns that arise at home. Special discussion: I discussed with the patient/guardian in detail that at this point there is no indication for admission to the hospital. It is understood, however, that if the symptoms persist or worsen the patient needs to return immediately for re-evaluation. Based on the history and exam findings, there is no indication for further emergent testing or inpatient evaluation. I discussed with the patient/guardian the need to see the primary care provider for further evaluation of the symptoms. ED course: Pt without acute fracture/dislocation of left 3rd digit, + chronic osteophytes on xray with mild subluxation of distal phalanx, likely chronic given injury and pain more proximal. Will splint. Glucose elevated but no AG and neg ketones. Will dc home with instructions to f/u with pcp for better glucose management given PCP took him off insulin.. 06/15 08:59 Order name: CBC with Diff; Complete Time: 10:00 rn 06/15 08:59 Order name: Basic Metabolic Panel rn 06/15 08:59 Order name: Ketone, Serum rn 06/15 08:59 Order name: Urine Microscopic Only rn 06/15 09:18 Order name: Urine Dipstick--Ancillary (enter results); Complete Time: 10:00 bd 06/15 11:06 Order name: Urine Culture EDMS 06/15 08:59 Order name: XRAY Hand LEFT 3 View; Complete Time: 10:00 rn 06/15 08:59 Order name: IV Start; Complete Time: 09:14 rn 06/15 08:59 Order name: Urine Dipstick-Ancillary (obtain specimen); Complete Time: 09:14 rn 06/15 10:22 Order name: Splint - Finger: left middle finger; Complete Time: 11:02 rn Administered Medications: 09:30 Drug: NS 0.9% 1000 ml Route: IV; Rate: 1000 ml; Site: right hand; jl7 12:02 Follow up: IV Status: Completed infusion; IV Intake: 1000ml jl 10:50 Drug: Insulin Regular Human 5 units {Co-Signature: sg (Tino Clark RN).} Route: Sub-Q; jl7 Site: right lower abdomen; 12:01 Follow up: Response: No adverse reaction; Blood sugar is lowered jl7 10:50 Drug: [place] 10 mg-325 mg 1 tabs Route: PO; jl7 11:20 Follow up: Response: No adverse reaction; Pain is decreased jl7 Point of Care Testing: Blood Glucose: 08:42 Blood Glucose: 358 mg/dL; aa5 12:02 Blood Glucose: 306 mg/dL; jl7 Ranges: Critical Glucose Levels:Adult <50 mg/dl or >400 mg/dl <40 mg/dl or >180 mg/dl Disposition: 06/15/19 10:33 Discharged to Home. Impression: Hyperglycemia, unspecified, Contusion of left middle finger without damage to nail. - Condition is Stable. - Discharge Instructions: Hyperglycemia, Finger Sprain, Adult. - Prescriptions for Ultram 50 mg Oral Tablet - take 1 tablet by ORAL route every 6 hours As needed; 15 tablet. - Medication Reconciliation Form, Thank You Letter, Antibiotic Education, Prescription Opioid Use form. - Follow up: Trent Santiago DO; When: As needed; Reason: Recheck today's complaints, Re-evaluation by your physician. - Problem is new. - Symptoms have improved. Signatures: Dispatcher [employer] EDMookie Roger MD MD rn Calderon, Audri RN RN aa5 James Cruz RN RN jl7 Tino marie Corrections: (The following items were deleted from the chart) 12:03 10:33 06/15/2019 10:33 Discharged to Home. Impression: Hyperglycemia, unspecified; jl7 Contusion of left middle finger without damage to nail. Condition is Stable. Forms are Medication Reconciliation Form, Thank You Letter, Antibiotic Education, Prescription Opioid Use. Follow up: Trent Santiago; When: As needed; Reason: Recheck today's complaints, Re-evaluation by your physician. Problem is new. Symptoms have improved. rn
[2019-06-15] MEDS ORDERED: INSULIN -REGULAR HUMAN 50 UNIT/0.5 ML ML ONE (10:38)
[2019-06-15] MEDS ORDERED: HYDROCODONE/APAP 10/325 TAB ONE (10:39)
[2019-06-15 11:03] LABS: Urine Bacteria <20 /HPF (NONE SEEN); Urine Culture Reflex Order REFLEXED; Urine Yeast PRESENT (NONE SEEN)
[2019-06-15 12:15] VITALS: TEMP 98.2; O2SAT 98
[2019-06-15 12:16] VITALS: BP 120/66
== END 2019-06-15 12:03 | disposition home or self-care (01) ==
LOC: ER 08:22
DX: S60.032A Contusion of left middle finger without damage to nail, initial encounter (principal); E11.65 Type 2 diabetes mellitus with hyperglycemia; X58.XXXA Exposure to other specified factors, initial encounter; Y93.89 Activity, other specified; Y92.9 Unspecified place or not applicable; I10 Essential (primary) hypertension; Z85.038 Personal history of other malignant neoplasm of large intestine
CPT/HCPCS: 96361; 87088; 85025; 87086; 80048; 36415; 82010; 82962 ×2; 87077; 87186; 73130; 96360; 96372; 99284; J7030; 81003; 81015

== ENCOUNTER 2019-09-18 07:27 | Inpatient (IN) | payer OTHER ==
--- OUTSIDE RECORDS SUMMARY | 2019-09-18 07:31 | XMS REPORT ---
:1960 Author Organization [facility] Address [address] [place] [address] Care Team Providers Name Role Phone MARLYS SOLITARIO Unavailable Unavailable ABDIRASHID SPARKS Unavailable Unavailable MARYAM ALVARADO Unavailable Unavailable Problems This patient has no known problems. Allergies, Adverse Reactions, Alerts This patient has no known allergies or adverse reactions. Medications This patient has no known medications. Results Test Description Test Time Test Comments Text Results Atomic Results Result Comments RAD, CHEST, 2 VIEWS 2019-07-16 14:00:00 Reason for FINAL REPORT PATIENT ID: Exam:->SOB shortness [id number] CHEST PA AND of breath LATERAL COMPARISON STUDY: 07/15/2018 History provided: Shortness of breath, metastatic colon cancer Heart upper limits of normal in size. Small right pleural effusion again noted. No pleural fluid on the left. Subpleural nodule seen on CT cannot be visualized on routine chest x-ray. There is a Port-A-Cath from right jugular approach with a loop as the catheter enters the jugular vein, the tip of the catheter at the level of the SVC. IMPRESSION: Right pleural effusion. Signed: Eliana White MDReport Verified Date/Time: 07/16/2019 14:00:37 Reading Location: [address] Radiology Reading Room , CHEST, WITH IV 2019-07-02 13:11:00 Reason for FINAL REPORT PATIENT ID: CONTRAST Exam:->C18.[id number] of the chest, abdomen and pelvis, with contrast Clinical History: C18.9 Technique: CT of the chest, abdomen and pelvis is performed with intravenous contrast administration. This exam was performed according to our departmental dose optimization program which includes automated exposure control, adjustment of the mA and/or kV according to patient's size and/or use of iterative reconstructive technique. Comparison Film: April 11, 2019, October 05, 2018, July 07, 2018 Discussion: There is a right-sided Port-A-Cath. Visualized thyroid gland is normal. No supraclavicular, axillary, mediastinal or hilar lymphadenopathy. Heart and pericardium are unremarkable. There is a moderate-sized right pleural effusion, increased since the prior exam. It is associated with relaxation atelectasis of the right lower lobe. A few tiny nodules along the right major fissure are unchanged. There are two subpleural nodules in the right upper lobe, which have become larger. No consolidation. Central airways are patent. Stable enhancing focus in the anterior right hepatic lobe probably represents a hemangioma. No new liver mass is identified. There is no biliary ductal dilatation, gallbladder is unremarkable. There are subcentimeter hypodensities in the medial aspect of the spleen, grossly unchanged. The pancreas is unremarkable. A left adrenal mass that measures 3.8 x 2.9 cm is unchanged. Kidneys demonstrate no mass, hydronephrosis or radiopaque stone. No bowel obstruction. Again noted is a stent in the descending colon, with localized colonic wall thickening. Normal appendix. Omental nodules are without significant interval change. No ascites. No new adenopathy. There is moderate vascular calcification. In the pelvis, bladder is unremarkable. Prostate gland is mildly prominent. Osseous structures demonstrate degenerative changes. No suspicious bony lesion is identified. Impression: Moderate right pleural effusion, increased since the previous exam. Small nodules along the right major fissure are unchanged. However, there are two right upper lobe subpleural nodules that have become larger, concerning for metastasis, and continued follow-up is suggested. Stable intra-abdominal findings, including omental carcinomatosis, left adrenal lesion, and subcentimeter hypodensities in the medial aspect of spleen. Signed: Stefanie Roy MDReport Verified Date/Time: 07/02/2019 13:11:30 Reading Location: [facility] C[address] [facility] Consult Reading Room , ABDOMEN 2019-07-02 13:11:00 Reason for FINAL REPORT PATIENT ID: Exam:->C18.[id number] of the chest, abdomen and pelvis, with contrast Clinical History: C18.9 Technique: CT of the chest, abdomen and pelvis is performed with intravenous contrast administration. This exam was performed according to our departmental dose optimization program which includes automated exposure control, adjustment of the mA and/or kV according to patient's size and/or use of iterative reconstructive technique. Comparison Film: April 11, 2019, October 05, 2018, July 07, 2018 Discussion: There is a right-sided Port-A-Cath. Visualized thyroid gland is normal. No supraclavicular, axillary, mediastinal or hilar lymphadenopathy. Heart and pericardium are unremarkable. There is a moderate-sized right pleural effusion, increased since the prior exam. It is associated with relaxation atelectasis of the right lower lobe. A few tiny nodules along the right major fissure are unchanged. There are two subpleural nodules in the right upper lobe, which have become larger. No consolidation. Central airways are patent. Stable enhancing focus in the anterior right hepatic lobe probably represents a hemangioma. No new liver mass is identified. There is no biliary ductal dilatation, gallbladder is unremarkable. There are subcentimeter hypodensities in the medial aspect of the spleen, grossly unchanged. The pancreas is unremarkable. A left adrenal mass that measures 3.8 x 2.9 cm is unchanged. Kidneys demonstrate no mass, hydronephrosis or radiopaque stone. No bowel obstruction. Again noted is a stent in the descending colon, with localized colonic wall thickening. Normal appendix. Omental nodules are without significant interval change. No ascites. No new adenopathy. There is moderate vascular calcification. In the pelvis, bladder is unremarkable. Prostate gland is mildly prominent. Osseous structures demonstrate degenerative changes. No suspicious bony lesion is identified. Impression: Moderate right pleural effusion, increased since the previous exam. Small nodules along the right major fissure are unchanged. However, there are two right upper lobe subpleural nodules that have become larger, concerning for metastasis, and continued follow-up is suggested. Stable intra-abdominal findings, including omental carcinomatosis, left adrenal lesion, and subcentimeter hypodensities in the medial aspect of spleen. Signed: Stefanie Roy MDReport Verified Date/Time: 07/02/2019 13:11:30 Reading Location: [facility] C[address] [facility] Consult Reading Room -CREATININE 2019-07-02 07:46:00 Test Item Value Reference Range Comments POC-CREATININE (ZACHARY) (test 0.7 mg/dL 0.6-1.3 TESTED AT [facility] 7200 ixae=1407) [facility] [address] POC-EGFR (ZACHARY) (test 140 mL/min/1.73M2 vipa=6319) CT, [id number] 09:11:00FINAL REPORT EXAM: CT Chest , Abdomen and Pelvis WITH contrast INDICATION: Colon [...] and/or kVp according to patient size, standardized low- doseprotocol, and/or iterative reconstruction technique. FINDINGS: LINES and TUBES: Right chest port with catheter extending to the mid SVC. LUNGS AND AIRWAYS: Multiple pulmonary nodules are again seen (series 2):Right:Lower lobe abutting the major fissure, 2 mm (previous 5 mm), image 48Lower lobe abutting the major fissure, 3 mm (previous punctate), image 54Upper lobe abutting the minor fissure, 1 to 2mm (previous 1 to 2 mm), image 57Other [...] is only faintly seen, likely due to differencesin bolus timing. Size is unchanged. No new [...] evidence of bowel obstruction. Again noted is astent in the mid descending colon. There is stable mild wall thickening of the colon surrounding thestent. There are no inflammatory findings. Appendix is [...] scattered calcified plaque. No aneurysm. IVC and portalsystem appear unremarkable. PERITONEUM / RETROPERITONEUM: No pneumoperitoneum [...] unchanged. Signed: Asa Menjivar MDReport Verified Date/Time: 2018 09:11:14 09 :11 AMCT, CHEST, WITH IV [id number] 09:11:00FINAL REPORT EXAM: CT Chest, Abdomen and Pelvis [...] and/or kVp according to patient size, standardized low-doseprotocol, and/or iterative reconstruction technique. FINDINGS: LINES and TUBES: Right chest port with catheter extending to the mid SVC. LUNGS AND AIRWAYS: Multiple pulmonary nodules are again seen ( series 2):Right:Lower lobe abutting the major fissure, 2 mm (previous 5 mm), image 48Lower lobe abutting the major fissure, 3 mm (previous punctate), image 54Upper lobe abutting the minor fissure, 1 to 2mm (previous 1 to 2 mm), image 57Other [...] is only faintly seen, likely due to differencesin bolus timing. Size is unchanged. No new liver lesions are seen. No intrahepatic bile duct dilatation. GALLBLADDER: No radio- opaque stones or sludge. No wall thickening. SPLEEN: No splenomegaly. Ill- defined areas of hypodensity at the medial aspect [...] evidence of bowel obstruction. Again noted is astent in the mid descending colon. There is stable mild wall thickening of the colon surrounding thestent. There are no inflammatory findings. Appendix is [...] scattered calcified plaque. No aneurysm. IVC and portalsystem appear unremarkable. PERITONEUM / RETROPERITONEUM: No pneumoperitoneum or ascites. Previous area of omental thickening in the left anterior abdomen now measures 0.9 cm thickness ( previous 1.8 cm). BONES: No acute or suspicious [...] on the previous exam. Continued attention on follow -up CT suggested. 2.Generally positive response to treatment. [...] is unchanged. Signed: Asa Menjivar MDReport Verified Date/Time : 04/17/2019 09:11:14 Electronically signed by: ASA MENJIVAR MD on 09:11 AMCT, CHEST, WITH IV [id number] 15:06:00FINAL REPORT CT CHEST, ABDOMEN, AND PELVIS WITH CONTRAST HISTORY: coloncancer metastasized to multiple sites COMPARISON: CTs of the chest abdomen and pelvis October and July 17, 2018.TECHNIQUE:CT scan of the chest, abdomen, and pelvis WITH intravenous contrast, using standard protocol.Coronal and sagittal reformats are provided. IV CONTRAST: 150 cc of Isovue-300. RADIATION DOSE: Total DLP: 2792.97 mGy*cmDose modulation, iterative reconstruction, and/or weight based adjustment of the mA/ kV was utilized [...] markedly limited given the previous size of thepleural effusion and adjacent atelectasis.*Stable punctate nodule in the right upper lobe adjacent to the minor fissure (axial image 52).* Stable 2 mm nodule adjacent to the lateral [...] 58).*Stable 3 mm calcified granuloma within the lowerlobe (axial image 71). Pleura: Interval decreased size of the left pleural effusion and adjacent atelectasis, small residual. Heart and mediastinum : The thyroid gland is normal.The heart is normal,no pericardial effusion. ABDOMEN:HEPATOBILIARY: Stable 1 cm enhancing [...] *Decreased size of the right cardiophrenic lymph node , now 0.9 cm.*Interval decreased size of the enlarged retroperitoneal lymph nodes, the largest remaining aortocaval nodes, measures 0.6 cm in short axis. VESSELS: Atherosclerotic calcifications, including the coronary arteries. GI TRACT: Similar appearance of the metallic stent and clip in the descending colon , results in beam nix artifact which partially [...] subsequent follow-ups. Signed: Og Soriano MDReport Verified Date/ Time: 12/25/2018 15:06:57 CT, ABDOMEN, WITHOUT / WITH IV [id number] 15:06: 00FINAL REPORT CT CHEST, ABDOMEN, AND PELVIS WITH CONTRAST HISTORY: coloncancer metastasized to multiple sites COMPARISON : CTs of the chest abdomen and pelvis October and July 17, 2018.TECHNIQUE:CT scan of the chest, abdomen, and pelvis WITH intravenous contrast, using standard protocol.Coronal and sagittal reformats are provided. IV CONTRAST: 150 cc of Isovue-300. RADIATION DOSE: Total DLP: 2792.97 mGy*cmDose modulation, iterative reconstruction, and/or weight based adjustment of the mA/kV was utilized to reduce the radiation dose to as low as reasonably achievable. COMPLICATIONS: None FINDINGS:Lines/ tubes: Stable appearing right chest port, the tip near the confluence of the brachiocephalic veins. CHEST:Lungs and Airways: Right: *A 5 mm nodule abutting the major fissure (axial image 48), comparison is markedly limited given the previous size of the pleural effusion and adjacent atelectasis.*A punctate nodule near the major fissure (axial image 51), comparison is markedly limited given the previous size of thepleural effusion and adjacent atelectasis. *Stable punctate nodule in the right upper lobe adjacent to the minor fissure ( axial image 52).*Stable 2 mm nodule adjacent to [...] 58).*Stable 3 mm calcified granuloma within the lowerlobe (axial image 71). Pleura: Interval decreased size of the left pleural effusion and adjacent atelectasis, small residual. Heart and mediastinum: The thyroid gland is normal.The heart is normal,no pericardial effusion. ABDOMEN:HEPATOBILIARY: Stable 1 cm enhancing [...] *Decreased size of the right cardiophrenic lymph node , now 0.9 cm.*Interval decreased size of the enlarged retroperitoneal lymph nodes, the largest remaining aortocaval nodes, measures 0.6 cm in short axis. VESSELS: Atherosclerotic calcifications, including the coronary arteries. GI TRACT: Similar appearance of the metallic stent and clip in the descending colon , results in beam nix artifact which partially [...] subsequent follow-ups. Signed: Og Soriano MDReport Verified Date/ Time: 12/25/2018 15:06:57 CT, PELVIS, WITH IV [id number] 15:06:00FINAL REPORT CT CHEST, ABDOMEN, AND PELVIS WITH CONTRAST HISTORY: coloncancer metastasized to multiple sites COMPARISON: CTs of the chest abdomen and pelvis October and July 17, 2018.TECHNIQUE: CT scan of the chest, abdomen, and [...] markedly limited given the previous size of thepleural effusion and adjacent atelectasis.*Stable punctate nodule in the right upper lobe adjacent to the minor fissure (axial image 52).* Stable 2 mm nodule adjacent to the lateral [...] 58).*Stable 3 mm calcified granuloma within the lowerlobe (axial image 71). Pleura: Interval decreased size of the left pleural effusion and adjacent atelectasis, small residual. Heart and mediastinum : The thyroid gland is normal.The heart is normal,no pericardial effusion. ABDOMEN:HEPATOBILIARY: Stable 1 cm enhancing [...] *Decreased size of the right cardiophrenic lymph node , now 0.9 cm.*Interval decreased size of the enlarged retroperitoneal lymph nodes, the largest remaining aortocaval nodes, measures 0.6 cm in short axis. VESSELS: Atherosclerotic calcifications, including the coronary arteries. GI TRACT: Similar appearance of the metallic stent and clip in the descending colon , results in beam nix artifact which partially [...] attention on subsequent follow-ups. Signed: [facility] Verified Date/ Time: 12/25/2018 15:06:57 [id number] 08:55:00 Test Item Value Reference Range Comments POC-CREATININE (BEAKER) 0.7 mg/dL 0.6-1.3 TESTED AT [facility] 7200 (test sspi=9986) [facility] [address] POC-EGFR (BEAKER) (test 140 mL/min/1.73M2 yszu=8450) TISSUE [id number] 13:08:00Surgical Pathology Report Case: [id number] Authorizing Provider: Jessi Turcios MD Collected: 07/17/2018 9634 Ordering Location: [address] Received: 07/17/2018 1607 Service Pathologist: Allen [...] nuclear expressionMSH6: Intact nuclear expressionPMS2: Intact nuclear expressionIHC InterpretationNo loss of nuclear expression of MMR proteins: low probability of microsatellite instability-high (MSI-H)# #There are exceptions to the above IHC interpretations.These results should not be considered in isolation, and clinical correlation with genetic counseling is recommended to assess the need for germline testing.Immunohistochemistry disclaimer:The immunohistochemistry test was developed and its performance characteristics determined by [facility], Pathology Laboratory. It has not been cleared [...] qualified to perform high complexity clinical laboratory testing.[id number] x 4Addendum electronically signed by Star Trejo MD on 07/20/2018 at 10:07 AMPART A OMENTAL BIOPSY:MODERATELY DIFFERENTIATED ADENOCARCINOMA.SEE DIAGNOSTIC COMMENT. Signing Pathologist Direct Phone Line: [phone] signed by Allen Velazquez MD on 07/19/2018 [...] and imaging studies is required for complete interpretation.89092, 70415, 14362n3Gst givenOmentum The specimen is received in a formalin-filled container and labeledwith the patient's information labeled "omentum" and consists of four off white core biopsies ranging from 0.2 to 0.4 cm, submitted entirely A1.CG/pl PERFORMED.The following special studies were performed on this case and the interpretation is incorporated in the diagnostic report above:BLOCK A1- CK7,CK20, CDX2, TTF1, PSA, WU30Igt immunohistochemistry test was developed and its performance characteristics determined by [facility], Pathology Laboratory. It has not been cleared [...] to perform high complexity clinical laboratory testing.POCT-GLUCOSE [id number] 12:55:00 Test Item Value Reference Range Comments POC-GLUCOSE METER (BEAKER) 115 mg/dL 70-110 TESTED AT [address] (test kgkh=7663) [facility] [address] POCT-GLUCOSE [id number] 08:52:00 Test Item Value Reference Range Comments POC-GLUCOSE METER (BEAKER) 137 mg/dL 70-110 TESTED AT [facility] [address] (test zklf=3786) [facility] [address] CARCINOEMBRYONIC ANTIGEN (CEA)2018-09-13 07:11:00 Test Item Value Reference Range Comments CARCINOEMBRYONIC ANTIGEN (BEAKER) (test 1302.5 ng/mL 0.0-5.0 kwap=478) [id number] 07:04:00 Test Item Value Reference Range Comments MAGNESIUM (BEAKER) (test ebpi=038) 1.7 mg/dL 1.6-2.6 BASIC METABOLIC [id number] 07:04:00 Test Item Value Reference Range Comments SODIUM (BEAKER) (test 139 meq/L 136-145 ilqz=057) POTASSIUM (BEAKER) (test 3.5 meq/L 3.5-5.1 pdoi=195) CHLORIDE (BEAKER) (test 105 meq/L 98-107 wwty=776) CO2 (BEAKER) (test 26 meq/L 22-29 pvco=079) BLOOD UREA NITROGEN 10 mg/dL 7-21 (BEAKER) (test nytd=908) CREATININE (BEAKER) (test 0.77 mg/dL 0.57-1.25 liql=396) GLUCOSE RANDOM (BEAKER) 135 mg/dL 70-105 (test stom=695) CALCIUM (BEAKER) (test 8.9 mg/dL 8.4-10.2 tjqk=765) EGFR (BEAKER) (test 126 mL/min/1.73 sq m ESTIMATED GFR IS NOT eojg=6742) ACCURATE CREATININE CLEARANCE IN PREDICTING GLOMERULAR FILTRATION RATE. ESTIMATED GFR IS NOT APPLICABLE FOR DIALYSIS PATIENTS. HEPATIC FUNCTION [id number] 07:04:00 Test Item Value Reference Range Comments TOTAL PROTEIN (BEAKER) (test nqip=439) 7.4 gm/dL 6.0-8.3 ALBUMIN (BEAKER) (test wgns=3701) 3.9 g/dL 3.5-5.0 BILIRUBIN TOTAL (BEAKER) (test ruei=915) 0.6 mg/dL 0.2-1.2 BILIRUBIN DIRECT (BEAKER) (test vjno=491) 0.3 mg/dL 0.1-0.5 ALKALINE PHOSPHATASE (BEAKER) (test uzmt=093) 63 U/L 40-150 AST (SGOT) (BEAKER) (test rcap=453) 23 U/L 5-34 ALT (SGPT) (BEAKER) (test sdwv=130) 37 U/L 6-55 CBC W/PLT COUNT & AUTO [id number] 06:29:00 Test Item Value Reference Range Comments WHITE BLOOD CELL COUNT (BEAKER) (test gykk=582) 9.8 K/ L 3.5-10.5 RED BLOOD CELL COUNT (BEAKER) (test urci=841) 4.61 M/ L 4.63-6.08 HEMOGLOBIN (BEAKER) (test ceyh=746) 12.9 GM/DL 13.7-17.5 HEMATOCRIT (BEAKER) (test tctv=284) 41.0 % 40.1-51.0 MEAN CORPUSCULAR VOLUME (BEAKER) (test lzva=182) 88.9 fL 79.0-92.2 MEAN CORPUSCULAR HEMOGLOBIN (BEAKER) (test 28.0 pg 25.7-32.2 mvns=974) MEAN CORPUSCULAR HEMOGLOBIN CONC (BEAKER) (test 31.5 GM/DL 32.3-36.5 jpwi=703) RED CELL DISTRIBUTION WIDTH (BEAKER) (test 13.0 % 11.6-14.4 rxkz=824) PLATELET COUNT (BEAKER) (test qdgs=606) 285 K/CU MM 150-450 MEAN PLATELET VOLUME (BEAKER) (test mjrz=907) 11.3 fL 9.4-12.4 NUCLEATED RED BLOOD CELLS (BEAKER) (test 0 /100 WBC 0-0 fbsu=316) NEUTROPHILS RELATIVE PERCENT (BEAKER) (test 69 % adcu=043) LYMPHOCYTES RELATIVE PERCENT (BEAKER) (test 18 % gpbb=397) MONOCYTES RELATIVE PERCENT (BEAKER) (test 11 % kaga=542) EOSINOPHILS RELATIVE PERCENT (BEAKER) (test 2 % hygg=368) BASOPHILS RELATIVE PERCENT (BEAKER) (test 1 % nzst=670) NEUTROPHILS ABSOLUTE COUNT (BEAKER) (test 6.71 K/ L 1.78-5.38 jszi=964) LYMPHOCYTES ABSOLUTE COUNT (BEAKER) (test 1.72 K/ L 1.32-3.57 kzyt=826) MONOCYTES ABSOLUTE COUNT (BEAKER) (test 1.10 K/ L 0.30-0.82 nrpv=867) EOSINOPHILS ABSOLUTE COUNT (BEAKER) (test 0.17 K/ L 0.04-0.54 djoc=919) BASOPHILS ABSOLUTE COUNT (BEAKER) (test 0.06 K/ L 0.01-0.08 jpwg=240) IMMATURE GRANULOCYTES-RELATIVE PERCENT (BEAKER) 0 % 0-1 (test onuh=9639) POCT-GLUCOSE [id number] 01:02:00 Test Item Value Reference Range Comments POC-GLUCOSE METER (BEAKER) 130 mg/dL 70-110 TESTED AT [address] (test hiwb=3136) [facility] [address] POCT-GLUCOSE [id number] 17:48:00 Test Item Value Reference Range Comments POC-GLUCOSE METER (BEAKER) 119 mg/dL 70-110 TESTED AT [address] (test rhpf=7586) [facility] [address] POCT-GLUCOSE [id number] 12:27:00 Test Item Value Reference Range Comments POC-GLUCOSE METER (BEAKER) 154 mg/dL 70-110 TESTED AT [address] (test jxte=0703) [facility] [address] POCT-GLUCOSE [id number] 07:44:00 Test Item Value Reference Range Comments POC-GLUCOSE METER (BEAKER) 243 mg/dL 70-110 TESTED AT [address] (test jipl=0910) [facility] [address] [id number] 06:49:00 Test Item Value Reference Range Comments MAGNESIUM (BEAKER) (test qlrf=120) 1.8 mg/dL 1.6-2.6 BASIC METABOLIC [id number] 06:49:00 Test Item Value Reference Range Comments SODIUM (BEAKER) (test 138 meq/L 136-145 xrcz=045) POTASSIUM (BEAKER) (test 3.3 meq/L 3.5-5.1 vwzr=819) CHLORIDE (BEAKER) (test 103 meq/L 98-107 mvmc=867) CO2 (BEAKER) (test 27 meq/L 22-29 thyo=261) BLOOD UREA NITROGEN 18 mg/dL 7-21 (BEAKER) (test jqst=623) CREATININE (BEAKER) (test 1.08 mg/dL 0.57-1.25 ziqs=378) GLUCOSE RANDOM (BEAKER) 139 mg/dL 70-105 (test bspl=892) CALCIUM (BEAKER) (test 8.6 mg/dL 8.4-10.2 mpym=974) EGFR (BEAKER) (test 85 mL/min/1.73 sq m ESTIMATED GFR IS NOT zsyg=2503) ACCURATE CREATININE CLEARANCE IN PREDICTING GLOMERULAR FILTRATION RATE. ESTIMATED GFR IS NOT APPLICABLE FOR DIALYSIS PATIENTS. CBC W/PLT COUNT & AUTO [id number] 06:29:00 Test Item Value Reference Range Comments WHITE BLOOD CELL COUNT (BEAKER) (test syte=242) 9.6 K/ L 3.5-10.5 RED BLOOD CELL COUNT (BEAKER) (test tgab=488) 4.04 M/ L 4.63-6.08 HEMOGLOBIN (BEAKER) (test xewm=737) 11.5 GM/DL 13.7-17.5 HEMATOCRIT (BEAKER) (test hnkc=155) 36.5 % 40.1-51.0 MEAN CORPUSCULAR VOLUME (BEAKER) (test vtei=761) 90.3 fL 79.0-92.2 MEAN CORPUSCULAR HEMOGLOBIN (BEAKER) (test 28.5 pg 25.7-32.2 ytmd=710) MEAN CORPUSCULAR HEMOGLOBIN CONC (BEAKER) (test 31.5 GM/DL 32.3-36.5 pwwl=285) RED CELL DISTRIBUTION WIDTH (BEAKER) (test 13.1 % 11.6-14.4 cqqg=120) PLATELET COUNT (BEAKER) (test fpyb=748) 238 K/CU MM 150-450 MEAN PLATELET VOLUME (BEAKER) (test ucjv=572) 11.3 fL 9.4-12.4 NUCLEATED RED BLOOD CELLS (BEAKER) (test 0 /100 WBC 0-0 iami=112) NEUTROPHILS RELATIVE PERCENT (BEAKER) (test 71 % rzxu=420) LYMPHOCYTES RELATIVE PERCENT (BEAKER) (test 15 % ngbi=711) MONOCYTES RELATIVE PERCENT (BEAKER) (test 12 % wgpf=482) EOSINOPHILS RELATIVE PERCENT (BEAKER) (test 2 % wlxs=340) BASOPHILS RELATIVE PERCENT (BEAKER) (test 1 % sfhs=921) NEUTROPHILS ABSOLUTE COUNT (BEAKER) (test 6.74 K/ L 1.78-5.38 jwiu=478) LYMPHOCYTES ABSOLUTE COUNT (BEAKER) (test 1.42 K/ L 1.32-3.57 crlo=822) MONOCYTES ABSOLUTE COUNT (BEAKER) (test 1.17 K/ L 0.30-0.82 exat=000) EOSINOPHILS ABSOLUTE COUNT (BEAKER) (test 0.14 K/ L 0.04-0.54 kbpe=133) BASOPHILS ABSOLUTE COUNT (BEAKER) (test 0.06 K/ L 0.01-0.08 idpt=911) IMMATURE GRANULOCYTES-RELATIVE PERCENT (BEAKER) 0 % 0-1 (test hsfo=9982) POCT-GLUCOSE [id number] 00:36:00 Test Item Value Reference Range Comments POC-GLUCOSE METER (BEAKER) 141 mg/dL 70-110 TESTED AT [address] (test pgxo=9202) [place] [address] [place], REFERENCE LIBRARY ASSISTANT IN OR/30 MINUTE [id number] 19:40:00Reason for exam:-> DURING PROCEDUREBRONCHFINAL REPORT Fluoroscopy 5 views intraoperative 09/11/2018 7:39 PM CLINICAL HISTORY: Instrument localization COMPARISON: None available IMPRESSION: Please correlate imaging report findings with the procedure note prepared by Dr. Cordova, as an intra-procedure imaging consultation was not requested. Reported fluoroscopy time: 525.3 seconds. Signed : Chau Gasca Verified Date/Time: 09/11/2018 19:40:28 Reading Location: [facility] Radiology Reading Room POCT-GLUCOSE [id number] 18:32: 00 Test Item Value Reference Range Comments POC-GLUCOSE METER (BEAKER) 116 mg/dL 70-110 TESTED AT [address] (test gzug=6694) [place] [address] POCT-GLUCOSE [id number] 12:08:00 Test Item Value Reference Range Comments POC-GLUCOSE METER (BEAKER) 156 mg/dL 70-110 TESTED AT [address] (test tjpf=6055) [place] [address] [id number] 09:06:00 Test Item Value Reference Range Comments MAGNESIUM (BEAKER) (test ggrt=284) 1.9 mg/dL 1.6-2.6 [id number] 09:06:00 Test Item Value Reference Range Comments PHOSPHORUS (BEAKER) (test ibam=433) 3.8 mg/dL 2.3-4.7 BASIC METABOLIC [id number] 06:49:00 Test Item Value Reference Range Comments SODIUM (BEAKER) (test 139 meq/L 136-145 uast=699) POTASSIUM (BEAKER) (test 3.0 meq/L 3.5-5.1 brvp=748) CHLORIDE (BEAKER) (test 100 meq/L 98-107 reyi=287) CO2 (BEAKER) (test 28 meq/L 22-29 mnzx=976) BLOOD UREA NITROGEN 13 mg/dL 7-21 (BEAKER) (test cgwr=097) CREATININE (BEAKER) (test 0.83 mg/dL 0.57-1.25 zjpp=593) GLUCOSE RANDOM (BEAKER) 135 mg/dL 70-105 (test qcxo=004) CALCIUM (BEAKER) (test 9.2 mg/dL 8.4-10.2 pryr=120) EGFR (BEAKER) (test 116 mL/min/1.73 sq m ESTIMATED GFR IS NOT nqyj=4234) ACCURATE CREATININE CLEARANCE IN PREDICTING GLOMERULAR FILTRATION RATE. ESTIMATED GFR IS NOT APPLICABLE FOR DIALYSIS PATIENTS. POCT-GLUCOSE [id number] 06:36:00 Test Item Value Reference Range Comments POC-GLUCOSE METER (BEAKER) 161 mg/dL 70-110 TESTED AT [facility] [address] (test qkxo=1310) [facility] [address] CBC W/PLT COUNT & AUTO [id number] 06:28:00 Test Item Value Reference Range Comments WHITE BLOOD CELL COUNT (BEAKER) (test hmta=590) 10.7 K/ L 3.5-10.5 RED BLOOD CELL COUNT (BEAKER) (test dbtg=442) 4.72 M/ L 4.63-6.08 HEMOGLOBIN (BEAKER) (test tung=300) 13.7 GM/DL 13.7-17.5 HEMATOCRIT (BEAKER) (test fcpd=821) 42.6 % 40.1-51.0 MEAN CORPUSCULAR VOLUME (BEAKER) (test ruwf=736) 90.3 fL 79.0-92.2 MEAN CORPUSCULAR HEMOGLOBIN (BEAKER) (test 29.0 pg 25.7-32.2 scfd=431) MEAN CORPUSCULAR HEMOGLOBIN CONC (BEAKER) (test 32.2 GM/DL 32.3-36.5 wrez=349) RED CELL DISTRIBUTION WIDTH (BEAKER) (test 12.9 % 11.6-14.4 olao=136) PLATELET COUNT (BEAKER) (test popy=713) 292 K/CU MM 150-450 MEAN PLATELET VOLUME (BEAKER) (test omzj=525) 11.3 fL 9.4-12.4 NUCLEATED RED BLOOD CELLS (BEAKER) (test 0 /100 WBC 0-0 iaqj=364) NEUTROPHILS RELATIVE PERCENT (BEAKER) (test 75 % foub=570) LYMPHOCYTES RELATIVE PERCENT (BEAKER) (test 13 % kppw=513) MONOCYTES RELATIVE PERCENT (BEAKER) (test 11 % fzqa=383) EOSINOPHILS RELATIVE PERCENT (BEAKER) (test 0 % dayb=973) BASOPHILS RELATIVE PERCENT (BEAKER) (test 0 % uhng=753) NEUTROPHILS ABSOLUTE COUNT (BEAKER) (test 7.97 K/ L 1.78-5.38 uemo=538) LYMPHOCYTES ABSOLUTE COUNT (BEAKER) (test 1.41 K/ L 1.32-3.57 nebe=626) MONOCYTES ABSOLUTE COUNT (BEAKER) (test 1.18 K/ L 0.30-0.82 fzzk=414) EOSINOPHILS ABSOLUTE COUNT (BEAKER) (test 0.04 K/ L 0.04-0.54 mxgh=104) BASOPHILS ABSOLUTE COUNT (BEAKER) (test 0.03 K/ L 0.01-0.08 imvv=671) IMMATURE GRANULOCYTES-RELATIVE PERCENT (BEAKER) 1 % 0-1 (test vbkg=1915) POCT-GLUCOSE [id number] 01:34:00 Test Item Value Reference Range Comments POC-GLUCOSE METER (BEAKER) 135 mg/dL 70-110 TESTED AT [address] (test dqam=8160) [place] [id number] POCT-GLUCOSE [id number] 09:00:00 Test Item Value Reference Range Comments POC-GLUCOSE METER (BEAKER) 195 mg/dL 70-110 TESTED AT [address] (test qtgq=4359) [place] [id number] BLOOD [id number] 06:00:00 Test Item Value Reference Range Comments CULTURE (BEAKER) (test ogqq=7318) No growth in 5 days BLOOD [id number] 06:00:00 Test Item Value Reference Range Comments CULTURE (BEAKER) (test hyke=4196) No growth in 5 days BASIC METABOLIC [id number] 05:43:00 Test Item Value Reference Range Comments SODIUM (BEAKER) (test 141 meq/L 136-145 ctqg=260) POTASSIUM (BEAKER) (test 3.6 meq/L 3.5-5.1 zdua=102) CHLORIDE (BEAKER) (test 106 meq/L 98-107 pock=456) CO2 (BEAKER) (test 25 meq/L 22-29 fkvi=682) BLOOD UREA NITROGEN 9 mg/dL 7-21 (BEAKER) (test udee=330) CREATININE (BEAKER) (test 0.80 mg/dL 0.57-1.25 aqhr=427) GLUCOSE RANDOM (BEAKER) 119 mg/dL 70-105 (test leox=213) CALCIUM (BEAKER) (test 8.9 mg/dL 8.4-10.2 jwfv=203) EGFR (BEAKER) (test 121 mL/min/1.73 sq m ESTIMATED GFR IS NOT rmzs=5567) ACCURATE CREATININE CLEARANCE IN PREDICTING GLOMERULAR FILTRATION RATE. ESTIMATED GFR IS NOT APPLICABLE FOR DIALYSIS PATIENTS. CBC W/PLT COUNT & AUTO [id number] 05:01:00 Test Item Value Reference Range Comments WHITE BLOOD CELL COUNT (BEAKER) (test fqra=009) 7.2 K/ L 3.5-10.5 RED BLOOD CELL COUNT (BEAKER) (test nnrh=129) 4.62 M/ L 4.63-6.08 HEMOGLOBIN (BEAKER) (test glba=101) 13.4 GM/DL 13.7-17.5 HEMATOCRIT (BEAKER) (test jzxc=144) 43.7 % 40.1-51.0 MEAN CORPUSCULAR VOLUME (BEAKER) (test nwdi=635) 94.6 fL 79.0-92.2 MEAN CORPUSCULAR HEMOGLOBIN (BEAKER) (test 29.0 pg 25.7-32.2 jbub=832) MEAN CORPUSCULAR HEMOGLOBIN CONC (BEAKER) (test 30.7 GM/DL 32.3-36.5 qiwf=282) RED CELL DISTRIBUTION WIDTH (BEAKER) (test 13.4 % 11.6-14.4 dzkn=750) PLATELET COUNT (BEAKER) (test trzd=564) 224 K/CU MM 150-450 MEAN PLATELET VOLUME (BEAKER) (test bpdc=386) 11.5 fL 9.4-12.4 NUCLEATED RED BLOOD CELLS (BEAKER) (test 0 /100 WBC 0-0 imgg=247) NEUTROPHILS RELATIVE PERCENT (BEAKER) (test 66 % ixia=497) LYMPHOCYTES RELATIVE PERCENT (BEAKER) (test 19 % tiws=158) MONOCYTES RELATIVE PERCENT (BEAKER) (test 10 % ztwz=318) EOSINOPHILS RELATIVE PERCENT (BEAKER) (test 4 % drpw=578) BASOPHILS RELATIVE PERCENT (BEAKER) (test 1 % liah=538) NEUTROPHILS ABSOLUTE COUNT (BEAKER) (test 4.80 K/ L 1.78-5.38 rast=107) LYMPHOCYTES ABSOLUTE COUNT (BEAKER) (test 1.39 K/ L 1.32-3.57 gfng=979) MONOCYTES ABSOLUTE COUNT (BEAKER) (test 0.72 K/ L 0.30-0.82 rgep=883) EOSINOPHILS ABSOLUTE COUNT (BEAKER) (test 0.25 K/ L 0.04-0.54 rnfw=632) BASOPHILS ABSOLUTE COUNT (BEAKER) (test 0.05 K/ L 0.01-0.08 wiqz=373) IMMATURE GRANULOCYTES-RELATIVE PERCENT (BEAKER) 0 % 0-1 (test gjvc=2250) POCT-GLUCOSE [id number] 22:22:00 Test Item Value Reference Range Comments POC-GLUCOSE METER (BEAKER) 171 mg/dL 70-110 TESTED AT [facility] [address] (test zdpp=9254) [facility] [address] ANG, TUNNEL CATH CENTRAL INS W/PORT [id number] 18:25:00Reason for exam:-> need for chemotherapy.FINAL REPORT Right internal jugular chest port insertion History: Patient requires access for chemotherapy administration. Modality: Sonography andfluoroscopy. Sedation: Versed 1.5 mg and fentanyl 50 mcg given intravenously for conscious sedation. Vital signs were monitored throughout the procedure by a nurse, and remained stable. Physician intra-service time was 30 minutes. Director Business Systems: Singh Escamilla MD Carbonation Tester: Noé. Approach: Right internal jugular vein Estimated [...] needle into the right atrium. A 4 Ukrainian micropuncture sheath was placed. A subcutaneous tunnel [...] ready for immediate use. Signed: Singh Escamilla Verified Date/Time: 07/19 18:25:29 Reading Location: [place] [address] Angio Body Reading Room POCT- GLUCOSE [id number] 16:53:00 Test Item Value Reference Range Comments POC-GLUCOSE METER (BEAKER) 124 mg/dL 70-110 TESTED AT [facility] [address] [place] [address] (test zbff=0025) [facility] [address] TISSUE [id number] 16:29:00Surgical Pathology Report Case: [id number] Authorizing Provider: Julius Umanzor MD Collected: 07/18/2018 1502 Ordering Location: [address] Received: 07/19/2018 0751 Service Pathologist: Charo Brar MD Specimen: Large Intestine, Colon - Left/Descending , mass LEFT/DESCENDING COLON, BIOPSY: - INVASIVE MODERATELY DIFFERENTIATED ADENOCARCINOMA, SITUATED PREDOMINANTLY BENEATH THE MUSCULARIS MUCOSA, WITH FOCAL NECROSISMO/pl Signing Pathologist Direct Phone Line: [phone] signed by Charo Brar MD on 07/19/2018 at 4:29 [id number] i4Rwtfkwus of colon, colonic mass Left descending colon [...] apoptosis. Other significant features are not noted.POCT-GLUCOSE [id number] 12:32:00 Test Item Value Reference Range Comments POC-GLUCOSE METER (BEAKER) 116 mg/dL 70-110 TESTED AT [address] (test kbpe=6645) [place] [address] POCT-GLUCOSE [id number] 09:22:00 Test Item Value Reference Range Comments POC-GLUCOSE METER (BEAKER) 130 mg/dL 70-110 TESTED AT [address] (test hdzs=3328) [place] [address] BASIC METABOLIC [id number] 06:03:00 Test Item Value Reference Range Comments SODIUM (BEAKER) (test 138 meq/L 136-145 gbcc=217) POTASSIUM (BEAKER) (test 3.3 meq/L 3.5-5.1 ijfy=563) CHLORIDE (BEAKER) (test 104 meq/L 98-107 vvco=582) CO2 (BEAKER) (test 23 meq/L 22-29 ydtn=377) BLOOD UREA NITROGEN 6 mg/dL 7-21 (BEAKER) (test jgtb=889) CREATININE (BEAKER) (test 0.76 mg/dL 0.57-1.25 eazy=561) GLUCOSE RANDOM (BEAKER) 122 mg/dL 70-105 (test lbti=043) CALCIUM (BEAKER) (test 9.2 mg/dL 8.4-10.2 ubko=835) EGFR (BEAKER) (test 128 mL/min/1.73 sq m ESTIMATED GFR IS NOT sfnh=1611) ACCURATE CREATININE CLEARANCE IN PREDICTING GLOMERULAR FILTRATION RATE. ESTIMATED GFR IS NOT APPLICABLE FOR DIALYSIS PATIENTS. PROTHROMBIN TIME/[id number] 05:34:00 Test Item Value Reference Range Comments PROTIME (BEAKER) (test mdjc=750) 14.2 seconds 11.7-14.7 INR (BEAKER) (test vvpe=553) 1.1 <=5.9 RECOMMENDED COUMADIN/WARFARIN INR THERAPY RANGESSTANDARD DOSE: 2.0 - 3.0 Includes: PROPHYLAXIS forvenous thrombosis, systemic embolization; TREATMENT for venous thrombosis and/or pulmonary embolus.HIGH RISK: Target INR is 2.5-3.5 for patients with mechanical heart valves.CBC W/PLT COUNT & AUTO [id number] 05:29:00 Test Item Value Reference Range Comments WHITE BLOOD CELL COUNT (BEAKER) (test essp=495) 9.1 K/ L 3.5-10.5 RED BLOOD CELL COUNT (BEAKER) (test telj=578) 4.61 M/ L 4.63-6.08 HEMOGLOBIN (BEAKER) (test wwia=875) 13.5 GM/DL 13.7-17.5 HEMATOCRIT (BEAKER) (test iwox=229) 42.6 % 40.1-51.0 MEAN CORPUSCULAR VOLUME (BEAKER) (test ivdh=555) 92.4 fL 79.0-92.2 MEAN CORPUSCULAR HEMOGLOBIN (BEAKER) (test 29.3 pg 25.7-32.2 wvhx=565) MEAN CORPUSCULAR HEMOGLOBIN CONC (BEAKER) (test 31.7 GM/DL 32.3-36.5 cvoc=400) RED CELL DISTRIBUTION WIDTH (BEAKER) (test 13.3 % 11.6-14.4 ahug=151) PLATELET COUNT (BEAKER) (test xdky=619) 235 K/CU MM 150-450 MEAN PLATELET VOLUME (BEAKER) (test npwn=384) 11.5 fL 9.4-12.4 NUCLEATED RED BLOOD CELLS (BEAKER) (test 0 /100 WBC 0-0 orxy=148) NEUTROPHILS RELATIVE PERCENT (BEAKER) (test 71 % znol=346) LYMPHOCYTES RELATIVE PERCENT (BEAKER) (test 14 % fvxr=205) MONOCYTES RELATIVE PERCENT (BEAKER) (test 11 % wfbr=173) EOSINOPHILS RELATIVE PERCENT (BEAKER) (test 2 % jbpz=115) BASOPHILS RELATIVE PERCENT (BEAKER) (test 1 % jirm=300) NEUTROPHILS ABSOLUTE COUNT (BEAKER) (test 6.48 K/ L 1.78-5.38 urhv=537) LYMPHOCYTES ABSOLUTE COUNT (BEAKER) (test 1.31 K/ L 1.32-3.57 ftjb=460) MONOCYTES ABSOLUTE COUNT (BEAKER) (test 0.98 K/ L 0.30-0.82 ucth=505) EOSINOPHILS ABSOLUTE COUNT (BEAKER) (test 0.20 K/ L 0.04-0.54 fyps=420) BASOPHILS ABSOLUTE COUNT (BEAKER) (test 0.05 K/ L 0.01-0.08 jeky=894) IMMATURE GRANULOCYTES-RELATIVE PERCENT (BEAKER) 1 % 0-1 (test kegz=9243) POCT-GLUCOSE [id number] 23:21:00 Test Item Value Reference Range Comments POC-GLUCOSE METER (BEAKER) 127 mg/dL 70-110 TESTED AT [address] (test xnip=3955) [place] [address] POCT-GLUCOSE [id number] 17:29:00 Test Item Value Reference Range Comments POC-GLUCOSE METER (BEAKER) 116 mg/dL 70-110 TESTED AT [address] (test rpzk=3865) [place] [address] POCT-GLUCOSE [id number] 15:41:00 Test Item Value Reference Range Comments POC-GLUCOSE METER (BEAKER) 122 mg/dL 70-110 TESTED AT [address] (test dniy=9514) [place] [address] [id number] 15:40:00Medical Cytology Report Case: [id number] Authorizing Provider: Jessi Turcios MD Collected: 07/17/2018 1435 Ordering Location: [address] Received: 07/18/2018 0837 Service Pathologist: Alvin Arroyo MD Specimen: Peritoneal Fluid PERITONEAL FLUID (CYTOSPINS): - SUSPICIOUS FOR MALIGNANCY Signing Pathologist Direct Phone Line: [phone] signed by Alvin Arroyo MD on 07/18/2018 at 3:40 PMThere are a few atypical clusters that are suspicious for malignancy in a background of reactive mesothelial cells and chronic inflammation.[id number]; colon mass and omental nodules presents for CT-guided core biopsy of omentalnodulesPERITONEAL FLUIDPrepared 4 cytospins from 4 ml yellow blood-tinged fluidCollected: [id number]: [id number].S. [facility], Department of Pathology, [address] [place] [address], [facility]sqwntC[facility], Department of Pathology, [address] [place] [address], DghyklC[facility], Department of Pathology, [address] [place] [address], PBNL-GLUCOSE [id number] 11:53:00 Test Item Value Reference Range Comments POC-GLUCOSE METER (BEAKER) 111 mg/dL 70-110 TESTED AT [address] (test vqgn=5304) [place] [address] POCT-GLUCOSE [id number] 06:48:00 Test Item Value Reference Range Comments POC-GLUCOSE METER (BEAKER) 124 mg/dL 70-110 TESTED AT [address] (test grfw=8383) [place] [address] POCT-GLUCOSE [id number] 23:34:00 Test Item Value Reference Range Comments POC-GLUCOSE METER (BEAKER) 133 mg/dL 70-110 TESTED AT [address] (test hqch=4012) [place] [address] BODY FLUID CELL COUNT WITH [id number] 18:38:00 Test Item Value Reference Range Comments APPEARANCE FLUID (BEAKER) (test ftil=115) Slightly Bloody Clear COLOR FLUID (BEAKER) (test rsbf=583) Yarelis Colorless, Straw RBC FLUID (BEAKER) (test wwec=907) 9500 /cu mm <=1 ADJUSTED WBC FLUID (BEAKER) (test 1043 /cu mm <=5 dpef=5746) LINING CELLS (BEAKER) (test fbgj=1925) 42 /cu mm <=1 NEUTROPHILS FLUID (BEAKER) (test hmdq=9739) 17 % LYMPHS FLUID (BEAKER) (test gtkt=175) 28 % MONO/MACROPHAGE FLUID (BEAKER) (test 55 % wnwx=769) EOSINOPHILS FLUID (BEAKER) (test vhwb=006) 0 % BASO FLUID (BEAKER) (test qpfp=253) 0 % CONTAINER BODY FLUID (BEAKER) (test EDTA Tube tfsq=5009) POCT-GLUCOSE [id number] 17:54:00 Test Item Value Reference Range Comments POC-GLUCOSE METER (BEAKER) 145 mg/dL 70-110 TESTED AT [address] (test qway=7265) [facility] [address] CT, BIOPSY, [id number] 16:57:00Reason for exam:->Need biopsy of omentum for [...] MDReport Verified Date/Time: 2017 16:57:37 Reading Location: [facility] C013Y CT Body Reading Room ALBUMIN , BODY [id number] 16:12:00 Test Item Value Reference Range Comments ALBUMIN FLUID (BEAKER) (test jddv=941) 2.9 gm/dL Reference Range: No Normals Assay performance has not been validated for this type of specimen.PROTEIN, BODY [id number] 16:12:00 Test Item Value Reference Range Comments PROTEIN FLUID (BEAKER) (test ldwe=075) 5.0 g/dL Absence of reference range indicates that normals have not been defined.Assay performance has not been validated for this type of specimen.PT/[id number] 13:18:00 Test Item Value Reference Range Comments PROTIME (BEAKER) (test scya=602) 14.6 seconds 11.7-14.7 INR (BEAKER) (test gkif=125) 1.1 <=5.9 PARTIAL THROMBOPLASTIN TIME (BEAKER) (test 27.7 seconds 22.5-36.0 rzdq=133) RECOMMENDED COUMADIN/WARFARIN INR THERAPY RANGESSTANDARD DOSE: 2.0 - 3.0 Includes: PROPHYLAXIS forvenous thrombosis, systemic embolization; TREATMENT for venous thrombosis and/or pulmonary embolus.HIGH RISK: Target INR is 2.5-3.5 for patients with mechanical heart valves.CBC W/PLT COUNT & AUTO [id number] 13:08:00 Test Item Value Reference Range Comments WHITE BLOOD CELL COUNT (BEAKER) (test bbqa=812) 10.4 K/ L 3.5-10.5 RED BLOOD CELL COUNT (BEAKER) (test ppto=669) 4.53 M/ L 4.63-6.08 HEMOGLOBIN (BEAKER) (test ajor=545) 13.1 GM/DL 13.7-17.5 HEMATOCRIT (BEAKER) (test zlxz=825) 43.3 % 40.1-51.0 MEAN CORPUSCULAR VOLUME (BEAKER) (test svuk=753) 95.6 fL 79.0-92.2 MEAN CORPUSCULAR HEMOGLOBIN (BEAKER) (test 28.9 pg 25.7-32.2 trcr=166) MEAN CORPUSCULAR HEMOGLOBIN CONC (BEAKER) (test 30.3 GM/DL 32.3-36.5 dpwd=883) RED CELL DISTRIBUTION WIDTH (BEAKER) (test 13.5 % 11.6-14.4 upjw=880) PLATELET COUNT (BEAKER) (test ncxq=889) 236 K/CU MM 150-450 MEAN PLATELET VOLUME (BEAKER) (test oiob=435) 11.4 fL 9.4-12.4 NUCLEATED RED BLOOD CELLS (BEAKER) (test 0 /100 WBC 0-0 xfuf=102) NEUTROPHILS RELATIVE PERCENT (BEAKER) (test 73 % tdni=079) LYMPHOCYTES RELATIVE PERCENT (BEAKER) (test 15 % kmdg=241) MONOCYTES RELATIVE PERCENT (BEAKER) (test 10 % hnce=377) EOSINOPHILS RELATIVE PERCENT (BEAKER) (test 1 % qtrz=867) BASOPHILS RELATIVE PERCENT (BEAKER) (test 1 % hscc=844) NEUTROPHILS ABSOLUTE COUNT (BEAKER) (test 7.56 K/ L 1.78-5.38 xbje=649) LYMPHOCYTES ABSOLUTE COUNT (BEAKER) (test 1.60 K/ L 1.32-3.57 vzuy=057) MONOCYTES ABSOLUTE COUNT (BEAKER) (test 1.01 K/ L 0.30-0.82 ewgd=098) EOSINOPHILS ABSOLUTE COUNT (BEAKER) (test 0.14 K/ L 0.04-0.54 bhsp=080) BASOPHILS ABSOLUTE COUNT (BEAKER) (test 0.06 K/ L 0.01-0.08 nbns=018) IMMATURE GRANULOCYTES-RELATIVE PERCENT (BEAKER) 0 % 0-1 (test apxp=6070) CT, [id number] 12:37:00CT abdomen pelvis with IV and PO [...] MDReport Verified Date/Time: 07/17/2018 12:37:32 Reading Location: [address] Body Reading Room CT, CHEST, WITH [id number] 12:37:00FINAL REPORT TECHNIQUE: CT of the [...] MDReport Verified Date/Time: 07/17/2018 12:37:32 Reading Location: [facility] B1 C013Y CT Body Reading Room 12 :37 PMPOCT-GLUCOSE [id number] 12:31:00 Test Item Value Reference Range Comments POC-GLUCOSE METER (ZACHARY) 188 mg/dL 70-110 TESTED AT [facility] [address] (test kjqk=3682) [facility] [address] CBC W/PLT COUNT & AUTO [id number] 12:21:00 Test Item Value Reference Range Comments WHITE BLOOD CELL COUNT (KEVINAKER) (test xjin=044) 10.1 K/ L 3.5-10.5 RED BLOOD CELL COUNT (BEAKER) (test vjhw=780) 4.41 M/ L 4.63-6.08 HEMOGLOBIN (BEAKER) (test zolg=051) 13.1 GM/DL 13.7-17.5 HEMATOCRIT (BEAKER) (test xkai=652) 42.6 % 40.1-51.0 MEAN CORPUSCULAR VOLUME (BEAKER) (test ielb=388) 96.6 fL 79.0-92.2 MEAN CORPUSCULAR HEMOGLOBIN (BEAKER) (test 29.7 pg 25.7-32.2 psdg=620) MEAN CORPUSCULAR HEMOGLOBIN CONC (BEAKER) (test 30.8 GM/DL 32.3-36.5 nyev=397) RED CELL DISTRIBUTION WIDTH (BEAKER) (test 14.0 % 11.6-14.4 bsjr=338) PLATELET COUNT (BEAKER) (test oewm=720) 232 K/CU MM 150-450 MEAN PLATELET VOLUME (BEAKER) (test ekpr=682) 12.5 fL 9.4-12.4 NUCLEATED RED BLOOD CELLS (BEAKER) (test 0 /100 WBC 0-0 qhtp=156) NEUTROPHILS RELATIVE PERCENT (BEAKER) (test 73 % ndml=705) LYMPHOCYTES RELATIVE PERCENT (BEAKER) (test 14 % btfr=265) MONOCYTES RELATIVE PERCENT (BEAKER) (test 10 % jwjj=363) EOSINOPHILS RELATIVE PERCENT (BEAKER) (test 1 % icag=994) BASOPHILS RELATIVE PERCENT (BEAKER) (test 1 % dwdr=379) NEUTROPHILS ABSOLUTE COUNT (BEAKER) (test 7.40 K/ L 1.78-5.38 pcog=290) LYMPHOCYTES ABSOLUTE COUNT (BEAKER) (test 1.45 K/ L 1.32-3.57 qtzz=599) MONOCYTES ABSOLUTE COUNT (BEAKER) (test 1.01 K/ L 0.30-0.82 pctd=315) EOSINOPHILS ABSOLUTE COUNT (BEAKER) (test 0.13 K/ L 0.04-0.54 khnd=647) BASOPHILS ABSOLUTE COUNT (BEAKER) (test 0.07 K/ L 0.01-0.08 ifky=676) IMMATURE GRANULOCYTES-RELATIVE PERCENT (BEAKER) 0 % 0-1 (test wnhc=1837) HEMOGLOBIN [id number] 10:07:00 Test Item Value Reference Range Comments HEMOGLOBIN A1C (BEAKER) (test ibok=705) 5.6 % 4.3-6.1 BASIC METABOLIC [id number] 06:33:00 Test Item Value Reference Range Comments SODIUM (BEAKER) (test 138 meq/L 136-145 sago=308) POTASSIUM (BEAKER) (test 3.4 meq/L 3.5-5.1 eyhh=356) CHLORIDE (BEAKER) (test 105 meq/L 98-107 vnlu=985) CO2 (BEAKER) (test 24 meq/L 22-29 ikit=571) BLOOD UREA NITROGEN 10 mg/dL 7-21 (BEAKER) (test mofq=579) CREATININE (BEAKER) (test 0.80 mg/dL 0.57-1.25 dpcr=975) GLUCOSE RANDOM (BEAKER) 122 mg/dL 70-105 (test fvxp=274) CALCIUM (BEAKER) (test 8.5 mg/dL 8.4-10.2 enzp=128) EGFR (BEAKER) (test 121 mL/min/1.73 sq m ESTIMATED GFR IS NOT jiwa=9818) ACCURATE CREATININE CLEARANCE IN PREDICTING GLOMERULAR FILTRATION RATE. ESTIMATED GFR IS NOT APPLICABLE FOR DIALYSIS PATIENTS. POCT-GLUCOSE [id number] 05:17:00 Test Item Value Reference Range Comments POC-GLUCOSE METER (BEAKER) 133 mg/dL 70-110 TESTED AT [address] (test bxtg=8762) [place] [address] POCT-GLUCOSE [id number] 23:45:00 Test Item Value Reference Range Comments POC-GLUCOSE METER (BEAKER) 121 mg/dL 70-110 TESTED AT [address] (test fetv=1119) [place] [id number] POCT-GLUCOSE [id number] 17:45:00 Test Item Value Reference Range Comments POC-GLUCOSE METER (BEAKER) 112 mg/dL 70-110 TESTED AT [address] (test ysoc=0731) [place] [id number] 14:30:00 Test Item Value Reference Range Comments ALBUMIN (BEAKER) (test trap=6426) 3.9 g/dL 3.5-5.0 POCT-GLUCOSE [id number] 12:40:00 Test Item Value Reference Range Comments POC-GLUCOSE METER (BEAKER) 110 mg/dL 70-110 TESTED AT [address] (test knqq=6758) [place] [id number] POCT-GLUCOSE [id number] 08:32:00 Test Item Value Reference Range Comments POC-GLUCOSE METER (BEAKER) 137 mg/dL 70-110 TESTED AT [address] (test nnth=6229) [place] [address] BASIC METABOLIC [id number] 06:10:00 Test Item Value Reference Range Comments SODIUM (BEAKER) (test 143 meq/L 136-145 fgzm=059) POTASSIUM (BEAKER) (test 3.4 meq/L 3.5-5.1 tlzy=198) CHLORIDE (BEAKER) (test 105 meq/L 98-107 hqby=351) CO2 (BEAKER) (test 26 meq/L 22-29 ydle=551) BLOOD UREA NITROGEN 13 mg/dL 7-21 (BEAKER) (test gres=474) CREATININE (BEAKER) (test 0.96 mg/dL 0.57-1.25 rtuj=024) GLUCOSE RANDOM (BEAKER) 90 mg/dL 70-105 (test wbxn=031) CALCIUM (BEAKER) (test 9.1 mg/dL 8.4-10.2 soxv=225) EGFR (BEAKER) (test 98 mL/min/1.73 sq m ESTIMATED GFR IS NOT ruva=5278) ACCURATE CREATININE CLEARANCE IN PREDICTING GLOMERULAR FILTRATION RATE. ESTIMATED GFR IS NOT APPLICABLE FOR DIALYSIS PATIENTS. POCT-GLUCOSE [id number] 00:28:00 Test Item Value Reference Range Comments POC-GLUCOSE METER (BEAKER) 108 mg/dL 70-110 TESTED AT [address] (test qrwn=7540) [place] [id number] POCT-GLUCOSE [id number] 00:28:00 Test Item Value Reference Range Comments POC-GLUCOSE METER (BEAKER) 107 mg/dL 70-110 TESTED AT [address] (test dxkd=8031) [place] [address] POCT-GLUCOSE [id number] 17:40:00 Test Item Value Reference Range Comments POC-GLUCOSE METER (BEAKER) 137 mg/dL 70-110 TESTED AT [address] (test irdr=3834) [place] [address] [place], REFERENCE [employer]RARY ASSISTANT IN OR/30 MINUTE [id number] 14:44:00INTRA OP IMAGINGReason for exam:->BOWEL OBSTRUCTIONFINAL REPORT Intraoperative fluoroscopy. CLINICAL HISTORY: BOWEL OBSTRUCTION.FINDINGS: Seven fluoroscopically acquired images were acquired by the referring physician. An intraoperative verbal report was not requested. Fluoroscopy was not performed by the undersigned. Fluoroscopy time: 129 seconds. Seven images. Signed: Rj Angel Verified Date/Time: 14:44:01 Reading Location: [facility] C013X Ortho Consult Reading Room POCT- GLUCOSE [id number] 12:28:00 Test Item Value Reference Range Comments POC-GLUCOSE METER (BEAKER) 154 mg/dL 70-110 TESTED AT [address] (test fdlo=0680) [facility] [address] CARCINOEMBRYONIC ANTIGEN (CEA)2018-07-15 11:45:00 Test Item Value Reference Range Comments CARCINOEMBRYONIC ANTIGEN (BEAKER) (test 766.0 ng/mL 0.0-5.0 jlfs=749) RAD, CHEST, 1 VIEW, NON [id number] 11:43:00Reason for exam:->pnaShould this be performed at [...] Mixon Verified Date/Time: 2017 11:43:39 Reading Location: [facility] C013Y CT Body Reading Room HEPATIC FUNCTION [id number] 09:19:00 Test Item Value Reference Range Comments TOTAL PROTEIN (BEAKER) (test gfmp=626) 8.1 gm/dL 6.0-8.3 ALBUMIN (BEAKER) (test vbyg=4646) 4.4 g/dL 3.5-5.0 BILIRUBIN TOTAL (BEAKER) (test dnrk=992) 0.6 mg/dL 0.2-1.2 BILIRUBIN DIRECT (BEAKER) (test nrhf=033) 0.3 mg/dL 0.1-0.5 ALKALINE PHOSPHATASE (BEAKER) (test icnf=242) 58 U/L 40-150 AST (SGOT) (BEAKER) (test hpxb=459) 16 U/L 5-34 ALT (SGPT) (BEAKER) (test lcel=724) 19 U/L 6-55 POCT-GLUCOSE [id number] 08:21:00 Test Item Value Reference Range Comments POC-GLUCOSE METER (BEAKER) 130 mg/dL 70-110 TESTED AT [facility] [address] (test ccaq=8288) [facility] [address] RESPIRATORY PANEL [id number] 07:29:00 Test Item Value Reference Range Comments HUMAN METAPNEUMOVIRUS (BEAKER) (test Not detected Not detected, Equivocal imbi=7977) RHINOVIRUS (BEAKER) (test ooak=8740) Not detected Not detected, Equivocal INFLUENZA A (BEAKER) (test xtkw=8694) Not detected Not detected, Equivocal INFLUENZA A (NO SUBTYPE) (test Not detected, Equivocal cuop=2457) INFLUENZA A SUBTYPE H1 (BEAKER) (test Not detected, Equivocal sfty=1287) INFLUENZA A SUBTYPE H3 (BEAKER) (test Not detected, Equivocal vkju=9779) INFLUENZA A SUBTYPE H1-2009 (BEAKER) Not detected, Equivocal (test umjz=9570) INFLUENZA B (BEAKER) (test niek=1669) Not detected Not detected, Equivocal RESPIRATORY SYNCYTIAL VIRUS (BEAKER) Not detected Not detected, Equivocal (test clch=7389) PARAINFLUENZA VIRUS 1 (BEAKER) (test Not detected Not detected, Equivocal mrmw=3125) PARAINFLUENZA VIRUS 2 (BEAKER) (test Not detected Not detected, Equivocal emwe=9205) PARAINFLUENZA VIRUS 3 (BEAKER) (test Not detected Not detected, Equivocal szia=4280) PARAINFLUENZA VIRUS 4 (BEAKER) (test Not detected Not detected, Equivocal uukl=6560) ADENOVIRUS (BEAKER) (test yqdg=6155) Not detected Not detected, Equivocal CORONAVIRUS 229E (BEAKER) (test Not detected Not detected, Equivocal rwvl=8052) CORONAVIRUS HKU1 (BEAKER) (test Not detected Not detected, Equivocal asfy=9485) CORONAVIRUS NL63 (BEAKER) (test Not detected Not detected, Equivocal beqm=3187) CORONAVIRUS OC43 (BEAKER) (test Not detected Not detected, Equivocal okvz=6463) BORDETELLA PERTUSSIS (BEAKER) (test Not detected Not detected, Equivocal armr=2796) CHLAMYDOPHILA PNEUMONIAE (BEAKER) (test Not detected Not detected, Equivocal qhri=5489) MYCOPLASMA PNEUMONIAE (BEAKER) (test Not detected Not detected, Equivocal nsth=1971) Other viruses and bacteria not targeted by this PCR panel cannot be excluded; therefore clinical correlation and follow up of serology, culture results, and other molecular studies is required. The results are not intended to be used as the sole means for clinical diagnosis or patient management decisions. This sample was tested at the [facility] using the [employer] Respiratory Panel. It is FDA cleared and has been verified and approved by the [facility] for clinical use on nasal swab specimens. It is not FDA-cleared for use on bronchial wash/lavage samples. However, for this sample type, validation was performed and test characteristics were determined and approved, by [facility] Only [facility] laboratory for clinical use under the Clinical Laboratory Improvement Amendments (CLIA) of 1988 requirements. Therefore, FDA clearance isnot required. This laboratory is CLIA-certified and [employer] (CAP)-accredited to perform high complexity testing.LEGIONELLA ANTIGEN, [id number] 04:44:00 Test Item Value Reference Range Comments L. PNEUMOPHILA SEROGP 1 Negative - see Negative for L. UR AG (BEAKER) (test comment pneumophila serogroup 1 mbed=4293) antigen, suggesting no recent or current infection with this serogroup. Legionellosis cannot be ruled out since other serogroups and species may cause disease. STREP PNEUMONIAE [id number] 04:43:00 Test Item Value Reference Range Comments STREP PNEUMONIAE ANTIGEN Presumptive negative for Presumptive negative for (BEAKER) (test pneumococcal pneumonia - pneumococcal pneumonia - feqm=1874) see comment see commen Presumptive negative for pneumococcal pneumonia, suggesting no current or recent pneumococcal infection. Infection due to S. pneumoniae cannot be ruled out since the antigen present in the sample may be below the detection limit of the test.POCT-GLUCOSE [id number] 01:51:00 Test Item Value Reference Range Comments POC-GLUCOSE METER (BEAKER) 127 mg/dL 70-110 TESTED AT [address] (test srzf=2381) [facility] [address] BASIC METABOLIC [id number] 00:38:00 Test Item Value Reference Range Comments SODIUM (BEAKER) (test 136 meq/L 136-145 wfvj=825) POTASSIUM (BEAKER) (test 3.3 meq/L 3.5-5.1 kzws=231) CHLORIDE (BEAKER) (test 101 meq/L 98-107 wttj=645) CO2 (BEAKER) (test 22 meq/L 22-29 wigk=269) BLOOD UREA NITROGEN 11 mg/dL 7-21 (BEAKER) (test vlni=877) CREATININE (BEAKER) (test 0.85 mg/dL 0.57-1.25 wlsu=720) GLUCOSE RANDOM (BEAKER) 114 mg/dL 70-105 (test kjic=250) CALCIUM (BEAKER) (test 9.3 mg/dL 8.4-10.2 fosz=871) EGFR (BEAKER) (test 113 mL/min/1.73 sq m ESTIMATED GFR IS NOT opdk=6372) ACCURATE CREATININE CLEARANCE IN PREDICTING GLOMERULAR FILTRATION RATE. ESTIMATED GFR IS NOT APPLICABLE FOR DIALYSIS PATIENTS. RAPID INFLUENZA A&B [id number] 00:32:00 Test Item Value Reference Range Comments RAPID INFLUENZA A AG (BEAKER) (test Negative Negative, Inconclusive agep=8244) RAPID INFLUENZA B AG (BEAKER) (test Negative Negative, Inconclusive zgjl=7820) CBC W/PLT COUNT & AUTO [id number] 22:58:00 Test Item Value Reference Range Comments WHITE BLOOD CELL COUNT (BEAKER) (test rcxq=756) 10.9 K/ L 3.5-10.5 RED BLOOD CELL COUNT (BEAKER) (test mdio=009) 4.96 M/ L 4.63-6.08 HEMOGLOBIN (BEAKER) (test qnkb=663) 14.5 GM/DL 13.7-17.5 HEMATOCRIT (BEAKER) (test hprs=120) 46.1 % 40.1-51.0 MEAN CORPUSCULAR VOLUME (BEAKER) (test tgbh=491) 92.9 fL 79.0-92.2 MEAN CORPUSCULAR HEMOGLOBIN (BEAKER) (test 29.2 pg 25.7-32.2 sfjk=689) MEAN CORPUSCULAR HEMOGLOBIN CONC (BEAKER) (test 31.5 GM/DL 32.3-36.5 fnqo=247) RED CELL DISTRIBUTION WIDTH (BEAKER) (test 13.9 % 11.6-14.4 yptw=495) PLATELET COUNT (BEAKER) (test izlp=134) 277 K/CU MM 150-450 MEAN PLATELET VOLUME (BEAKER) (test kzgb=349) 11.2 fL 9.4-12.4 NUCLEATED RED BLOOD CELLS (BEAKER) (test 0 /100 WBC 0-0 rxuk=036) NEUTROPHILS RELATIVE PERCENT (BEAKER) (test 81 % cbrz=522) LYMPHOCYTES RELATIVE PERCENT (BEAKER) (test 11 % tfrq=548) MONOCYTES RELATIVE PERCENT (BEAKER) (test 7 % pbmi=487) EOSINOPHILS RELATIVE PERCENT (BEAKER) (test 0 % zofr=951) BASOPHILS RELATIVE PERCENT (BEAKER) (test 0 % qbzr=588) NEUTROPHILS ABSOLUTE COUNT (BEAKER) (test 8.86 K/ L 1.78-5.38 nrnb=718) LYMPHOCYTES ABSOLUTE COUNT (BEAKER) (test 1.21 K/ L 1.32-3.57 ikli=600) MONOCYTES ABSOLUTE COUNT (BEAKER) (test 0.79 K/ L 0.30-0.82 lirm=182) EOSINOPHILS ABSOLUTE COUNT (BEAKER) (test 0.01 K/ L 0.04-0.54 huyj=615) BASOPHILS ABSOLUTE COUNT (BEAKER) (test 0.02 K/ L 0.01-0.08 zjph=082) IMMATURE GRANULOCYTES-RELATIVE PERCENT (BEAKER) 1 % 0-1 (test hazq=2376)
--- OUTSIDE RECORDS SUMMARY | 2019-09-18 07:32 | XMS REPORT | Summary of Care ---
:1960 Author Organization [facility] Address [address] [id number] Care Team Providers Name Role Phone Graham Goodwin MD Primary Care Provider Reason for Referral Radiology Services (Routine) Status Reason Specialty Diagnoses / Referred By Contact Referred To Contact Procedures Pending Radiology Diagnoses SOB (shortness of breath) Kyle Hernandez McNair, Radiology Procedures XR CHEST PA AND LATERAL [address] [facility] [address] [place] [address] [place] [address] Reason for Visit Reason Comments Follow Up Encounter Details Date Type Department Care Team Description 07/16/2019 Office Visit [facility] Miguel Arizmendi, [facility]am [facility] [address] [facility] 7th [address], [address] [place] [address] 7th Floor, [address] [phone] [place] [address] [phone] Allergies No Known Allergiesdocumented as of this encounter (statuses as of 07/16/2019) Medications Medication Sig Dispensed Refills Start Date [...] mouth every 8 hours as needed. For chemotherapy-yaneli cliff nausea docusate sodium Take 1 Cap by 60 Cap 3 12/04/2018 Active (COLACE) 100 MG mouth two times capsule daily. lidocaine-prilocaine Apply 1 30 g 3 12/04/2018 Active (EMLA) 2.5-2.5 % cream application topically as needed. polyethylene glycol Take 17 g by 1 Bottle 2 01/15/2019 Active (GLYCOLAX) powder mouth daily as needed. Morphine Sulfate ER 15 Take 15 mg by 60 Each 0 03/12/2019 Active MG G90MGydmkxtlzdx: mouth every 12 Colon cancer hours. metastasized to multiple sites (HCCode), Cancer related pain hydrocodone-acetaminop Take 1 Tab by 120 Tab 0 04/23/2019 Active hen (NORCO) 10-325 MG mouth every 6 per tabletIndications: hours as needed Colon cancer for Pain. metastasized to Eprescribed multiple sites (HCCode), Cancer related pain Tamsulosin HCl 0.4 MG TAKE 1 CAPSULE BY 30 Cap 3 05/04/2019 Active CAPSIndications: MOUTH EVERY DAY Benign prostatic hyperplasia with urinary frequency linaGLIPtin 5 MG TABS Take 1 tablet by 90 Tab 3 05/23/2019 08/21/2019 Active mouth daily for 90 days. glimepiride (AMARYL) 4 Take 1 Tab by 90 Tab 3 05/23/2019 Active MG tablet mouth every morning. Insulin Aspart Prot & Inject 20 Units 0 06/22/2019 Active Aspart (NOVOLOG MIX into the skin. 70/30 FLEXPEN) (70-30) 100 UNIT/ML SUPN documented as of this encounter (statuses as of 07/16/2019) Active Problems Problem Noted Date Non-insulin dependent type 2 diabetes mellitus (HCCode) 05/23/2019 Colon cancer metastasized to multiple sites (HCCode) 07/24/2018 documented as of this encounter (statuses as of 07/16/2019) Social History Tobacco Use Types Packs/Day Years [...] Sign Reading Time Taken Comments Blood Pressure 156/70 07/16/2019 8:45 AM CDT Pulse 75 07/16/2019 8:45 AM CDT Temperature 36.8 C (98.3 F) 07/16/2019 8:45 AM CDT Respiratory Rate - - Oxygen Saturation - - Inhaled Oxygen Concentration - - Weight 136.1 kg (300 lb) 07/16/2019 8:45 AM CDT Height - - Body Mass Index 43.05 06/18/2019 9:21 AM CDT documented in this encounter Patient Instructions Patient InstructionsArabella Hu CMA - 07/16/2019 9:30 AM CDT [facility] SECTION OF ONCOLOGY/HEMATOLOGY [phone] FAX [phone] Please note that all labs and or imaging results will be discussed at the next office visit unless told otherwise. if a problem occurs after hours please contact our office and have physician vocational auto body instructor paged [phone] Patient Instructions: (to be completed before next visit) RTC 2 weeks with labs prior help desk support will schedule the appt Please don't hesitate to call if you have any questions or concerns before your appt. TELL US ABOUT YOUR EXPERIENCE You may receive an email or letter from [facility] via our partner, [employer]. This is a survey about your experience today. Your feedback is important to us so we can improve. If any question does not apply to your visit, please leave it blank. Our goal is to ensure you have an exceptional experience at [facility]. If for any reason you cannot rate your experience as very good, please let a member of our staff know so wecan make immediate improvements. Thanks Arabella Hu CMA documented in this encounter Progress Notes Kyle Hernandez MD - 07/16/2019 9:30 AM CDTSeen with [employer] DEVELOPER Parks Only new complaint is worsening SAPP. No CP, BLE edema CT shows stable disease in abd, and most recent CEA lower. 2 subcm pleural nodules in the RUL, larger (but still small-mod) R-sided pleural effusion Plan: - cont maintenance chemo - CXR today. If effusion big euongh to tap, order thora (Ddx: malignancy, CHF, cirrhosis) Kyle Hernandez M.D. Kalin Shi Endowed Professor Azam [facility] yrd, Miguel Morris NP - 07/16/2019 9:30 AM CDT Patient: Shai Gonzalez Jr. 1960 58 y.o. with stage IV colon cancer diagnosed at [facility], here for f/u 07/16/2019 S: Pain to L side Presents to clinic on maintenance 5FU, doing well with treatments. Main problem continues to be poorglucose control. Has seen endocrinology and was started on glimepiride and linagliptin. He states that he is adhering to schedule and eating better but glucose remains elevated. He is not sleeping well. Having polyuria. Left hand pain after getting hand caught in rope as horse ran off, here with splint to left ring finger for sprain. Some swelling to left hand. Otherwise stable intermittent LUQ abdominal pain, no CP/SOB, no N/V/D/C, no F/C/ NS. ECOG PS 1 Course summary: - admitted to [facility] for obstipation - cScope 07/15/18 (Tasha@ [facility]): A malignant-appearing, intrinsic severe stenosis measuring 3 mm (inner diameter) was found in the descending colon and was non-traversed. This was stented with a 25 mm x 87 mm Ultraflex Precision stent under fluoroscopic guidance. Estimated blood loss was minimal. - CEA 766 on 07/15/18 - CT CAP 07/17/18 ([facility]): Metallic stent in the descending colon. No [...] with suspicious cells - R thoracentesis 07/17/18 ([facility]): 1043 WBC, 9500 RBCs; fluid not sent for cytology. Protein 5, albumin 2.9 - paracentesis 07/18/18: cytology + for adenoCA - cScope 07/18/18: partially obstructing descending colon mass with stent in place - R chest port 07/19/18, was supposed to start chemo but lost insurance - admitted to [facility] in Sep 2018 for LBO -> cScope [...] colonic stent with prior obstruction) 04/23, 05/07, 05/21, 06/05/19, 06/18/19 Past Medical, Surgical, Family, Social History: unchanged Past Medical History: Diagnosis Date Asthma Colon cancer (HCCode) HBP (high blood pressure) No Known Allergies Current Outpatient Medications Medication [...] affect function). Endo/Heme/Allergies: Negative. Psychiatric/Behavioral: Negative. BP 156/70 (BP Location: left arm, Patient Position: Sitting, Cuff Size: large) | Pulse 75 | Temp 98.3 F (36.8 C) (Oral) | Wt 300 lb (136.1 kg) | BMI 43.05 kg/m Wt Readings from Last 3 Encounters: 07/16/19 300 lb (136.1 kg) 07/02/19 (!) 307 lb 12.8 oz (139.6 kg) 06/18/19 (!) 304 lb (137.9 kg) Physical Exam Constitutional: He is oriented [...] edema). He exhibits no tenderness or deformity. Hands: Lymphadenopathy: He has no cervical adenopathy. Neurological: [...] HPI): Lab Results Component Value Date WBC 8.2 07/16/2019 HGB 12.9 (L) 07/16/2019 HCT 40.1 07/16/2019 MCV 100.0 07/16/2019 PLT 206 07/16/2019 Lab Results Component Value Date ALT PENDING 07/16/2019 AST PENDING 07/16/2019 ALKPHOS PENDING 07/16/2019 BILITOT PENDING 07/16/2019 Lab Results Component Value Date CREATININE PENDING 07/16/2019 BUN PENDING 07/16/2019 NA PENDING 07/16/2019 K PENDING 07/16/2019 CL PENDING 07/16/2019 CO2 PENDING 07/16/2019 Lab Results Component Value Date GLUCOSE PENDING 07/16/2019 Assessment/Plan: 1) biopsy-proven stage IV pMMR KRAS MUT L-sided colon cancer with malignant pleural effusion and malignant ascites (both cytology-proven). Delayed by insurance, of which he obtained October 2018. CT CAP 10/05/18 showed PD -> FOLFOX (copay for xeloda too high) -> MS after 5 cycles with nice reduction in CEA -> maint 5FU with CT in April 2019 showing ongoing response - cont maintenance 5FU. 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 (oxali +/- DM) - follow RTC [address] prior Discussed with KAVEH Maria [facility] signed by Miguel Parks NP at 11:51 AM CDTdocumented in this encounter Plan of Treatment Date Type Specialty Care Team Description 07/18/2019 Office Visit Gastroenterology Savanna Mccracken, RD [address] [address] [phone] 07/18/2019 Appointment Infusion Center 5, [facility] Chair [address] [facility] 7th [address], [address] [place] [address] 07/30/2019 Office Visit Hematology and Oncology Miguel Parks, KAVEH [address] [facility] 7[address], [address] [place] [address] [phone] 07/30/2019 Appointment Infusion Center 9, [facility] Chair [address] [facility] 7[address] Floor, [address] [place] [address] 08/01/2019 Appointment Infusion Center 5, [facility] [address] [facility] 7th Floor, [address] [place] [address] 09/20/2019 Office Visit Endocrinology Nikhil Barfield MD [address] [facility] 8th Floor, [address] [place] [address] [phone] Name Type Priority Associated Diagnoses Order Schedule BRAIN NATRIURETIC PEPTIDE Lab Routine SOB (shortness of Ordered: 07/16/2019 breath) XR CHEST PA AND LATERAL Imaging Routine SOB (shortness of 1 Occurrences breath) starting 07/16/2019 until 02/14/2020 ELECTROCARDIOGRAM COMPLETE ECG Routine SOB (shortness of 1 Occurrences breath) starting 07/16/2019 until 07/16/2020 CBC W/AUTO DIFF WITH Lab STAT Colon cancer Ordered: 07/16/2019 PLATELETS metastasized to multiple sites (HCCode) COMPREHENSIVE METABOLIC Lab STAT Colon cancer Ordered: 07/16/2019 PANEL metastasized to multiple sites (HCCode) CEA Lab Routine Colon cancer Ordered: 07/16/2019 metastasized to multiple sites (HCCode) MAGNESIUM Lab STAT Colon cancer Ordered: 07/16/2019 metastasized to multiple sites (HCCode) NT-PROBNP Lab Routine SOB (shortness of Ordered: 07/16/2019 breath) Health Maintenance Due Date Last Done Comments TETANUS SHOT (ADULT) 12/12/1975 ANNUAL DIABETIC FOOT EXAM 1978 ANNUAL DIABETIC RETINOPATHY 1978 SCREENING BMI FOLLOW UP PLAN 1978 HEPATITIS C SCREENING 1978 HIV SCREENING 1978 FLU VACCINE > 6 MONTHS 05/03/2019 08/02/2018 A1C TESTING EVERY 6 MONTHS 11/07/2019 05/07/2019 COLON CANCER SCREENIN09/12/2028 09/12/2018, 09/11/2018, COLONOSCOPY 07/18/2018, Additional history exists documented as of this encounter Results Not on filedocumented in this encounter Visit Diagnoses Diagnosis Colon cancer metastasized to multiple sites (HCCode) - Primary Malignant neoplasm of colon, unspecified site SOB (shortness of breath) Shortness of breath documented in this encounter Insurance Payer Benefit Plan / Subscriber ID Effective Dates Phone Address Type Group [facility] PRAVE[facility] - xxxxxxxxxxx 2018-Present [address] [place] [address] (Home) [address] [place] [address] documented as of this encounter"
--- OUTSIDE RECORDS SUMMARY | 2019-09-18 07:32 | XMS REPORT | Summary of Care ---
:1960 Author Organization [facility] [place] [address] Care Team Providers Name Role Phone Graham Goodwin MD Primary Care Provider Reason for Visit Reason Comments Follow Up Encounter Details Date Type Department Care Team Description 07[facility]2019 [facility] [address] [facility] 7th Floor, [address] [place] [address] 7th Floor, [address] [phone] [place] [address] [phone] Allergies No Known Allergiesdocumented as of this encounter (statuses as of 07/30/2019) Medications Medication Sig Dispensed Refills Start Date [...] 03/12/2019 Active 15 MG mouth every 12 [id number]: hours. Colon cancer metastasized to multiple sites (HCCode), Cancer related pain Tamsulosin HCl 0.4 TAKE 1 CAPSULE 30 Cap 3 05/04/2019 Active MG CAPSIndications: BY MOUTH EVERY Benign prostatic DAY hyperplasia with urinary frequency linaGLIPtin 5 MG Take 1 tablet by 90 Tab 3 05/23/2019 08/21/20 Active TABS mouth daily for 19 90 days. glimepiride (AMARYL) Take 1 Tab by 90 Tab 3 05/23/2019 Active 4 MG tablet mouth every morning. Insulin Aspart Prot Inject 20 Units 0 06/22/2019 Active & Aspart (NOVOLOG into the skin. MIX 70/30 FLEXPEN) (70-30) 100 UNIT/ML SUPN hydrocodone-acetamin Take 1 Tab by 120 Tab 0 07/30/2019 Active ophen (NORCO) 10-325 mouth every 6 MG per hours as needed tabletIndications: for Pain. Colon cancer Eprescribed metastasized to multiple sites (HCCode), Cancer related pain hydrocodone-acetamin Take 1 Tab by 120 Tab 0 04/23/2019 07/30/20 Discontinued ophen (NORCO) 10-325 mouth every 6 19 MG per hours as needed tabletIndications: for Pain. Colon cancer Eprescribed metastasized to multiple sites (HCCode), Cancer related pain documented as of this encounter (statuses as of 07/30/2019) Active Problems Problem Noted Date Non-insulin dependent type 2 diabetes mellitus (HCCode) 05/23/2019 Colon cancer metastasized to multiple sites (HCCode) 07/24/2018 documented as of this encounter (statuses as of 07/30/2019) Social History Tobacco Use Types Packs/Day Years [...] Sign Reading Time Taken Comments Blood Pressure 135/73 07/30/2019 8:25 AM CDT Pulse 71 07/30/2019 8:25 AM CDT Temperature 36.9 C (98.4 F) 07/30/2019 8:25 AM CDT Respiratory Rate - - Oxygen Saturation - - Inhaled Oxygen Concentration - - Weight 138.8 kg (306 lb) 07/30/2019 8:25 AM CDT Height 180.3 cm (5' 11") 07/30/2019 8:25 AM CDT Body Mass Index 42.68 07/30/2019 8:25 AM CDT documented in this encounter Patient Instructions Patient InstructionsLucy Noyola RN - 07/30/2019 9:30 AM CDT [facility] SECTION OF ONCOLOGY/HEMATOLOGY [phone] FAX [phone] Please note that all labs and or imaging results will be discussed at the next office visit unless told otherwise. if a problem occurs after hours please contact our office and have physician electronics engineering technician paged [phone] Patient Instructions: (to be completed before next visit) Follow up in [address] Hernandez. Please don't hesitate to call if you have any questions or concerns before your appt. TELL US ABOUT YOUR EXPERIENCE You may receive an email or letter from [facility] via our partner, [employer]. This is a survey about your experience today. Your feedback is important to us so we can improve. If any question does not apply to your visit, please leave it blank. Our goal is to ensure you have an exceptional experience at [facility]. If for any reason you cannot rate your experience as very good, please let a member of our staff know so wecan make immediate improvements. Best Regards, Lucy Noyola RN documented in this encounter Progress Notes Miguel Bennett NP - 07/30/2019 9:30 AM CDT Patient: Shai Gonzalez Jr. 1960 58 y.o. with stage IV colon cancer diagnosed at [facility], here for f/u 07/30/2019 S: Presents to clinic continuing on single agent 5FU. Feeling better in general , still staying pretty active working the jha and playing with grandchildren. Feels the SAPP is stable, no better and noworse. Glucose is better controlled on current insulin regimen. Having trouble with meal planning estella is often busy and away from the house so diet is still overall not healthy. Neuropathy to fingersand feet is stable. Only occasional use of Trinity for abdominal pain. No CP, no N/V, no F/C/NS. ECOG PS 1-2 Course summary: - admitted to [facility] for obstipation - cScope 07/15/18 (Tasha@ [facility]): A malignant-appearing, intrinsic severe stenosis measuring 3 mm (inner diameter) was found in the descending colon and was non-traversed. This was stented with a 25 mm x 87 mm Ultraflex Precision stent under fluoroscopic guidance. Estimated blood loss was minimal. - CEA 766 on 07/15/18 - CT CAP 07/17/18 ([facility]): Metallic stent in the descending [...] cells - R thoracentesis 07/17/18 ([facility]): 1043 WBC, 9500 RBCs; fluid not sent for cytology. Protein 5, albumin 2.9 - paracentesis 07/18/18: cytology + for adenoCA - cScope 07/18/18: partially obstructing descending colon mass with stent in place - R chest port 07/19/18, was supposed to start chemo but lost insurance - admitted to [facility] in Sep 2018 for LBO [...] with prior obstruction) 04/23, 05/07, 05/21, 06/05/19, 06/18/19, 07/02/19 - CT CAP 07/02/19: SD in abdomen and pelvis; 2 new small subcm lesions to R major fissure, increased pleural effusion - CXR 07/16/19: small right pleural effusion - 5FU/LV: 07/16/19, 07/30/19 Past Medical, Surgical, Family, Social History: unchanged [...] needed for Pain. Eprescribed 120 Tab 0 Insulin Aspart Prot & Aspart (NOVOLOG MIX 70/30 FLEXPEN) (70-30) 100 UNIT/ML SUPN Inject 20 Units into the skin. lidocaine-prilocaine (EMLA) 2.5-2.5 % cream Apply 1 [...] Respiratory: Positive for shortness of breath (chronic SAPP, had increased previously, now stable). Negative for cough. Cardiovascular: Positive for orthopnea (chronic (ANASTACIO)) and leg swelling ( chronic (mild)). Gastrointestinal: Positive for abdominal pain (intermittent LUQ pain, see HPI). Negative for blood in stool, constipation, diarrhea and vomiting. Genitourinary: Negative for frequency and urgency (improved with better glucose management). Musculoskeletal: Positive for joint pain (chronic). Skin: Negative. Neurological: Positive for sensory change (mild numbness in feet and fingers, lingering). Endo/Heme/Allergies: Negative. Psychiatric/Behavioral: Negative. BP 135/73 (BP Location: left arm, Patient Position: Sitting, Cuff Size: large) | Pulse 71 | Temp 98.4 F (36.9 C) (Oral) | Ht 5' 11" (1.803 m) | Wt (!) 306 lb (138.8 kg) | BMI 42.68 kg/m Wt Readings from Last 3 Encounters: 07/30/19 (!) 306 lb (138.8 kg) 07/16/19 300 lb (136.1 kg) 07/02/19 (!) 307 lb 12.8 oz (139.6 kg) Physical Exam Constitutional: He is oriented to person, place, and time and well-developed, well-nourished, and inno distress. Presents ambulatory in clinic, obese, good spirits, alone in clinic today HENT: Head: Normocephalic and atraumatic. Right Ear: External ear normal. Left Ear: External ear normal. Eyes: Conjunctivae and EOM are normal. No scleral icterus. Neck: Normal range of motion. Neck supple. Cardiovascular: Normal rate, regular rhythm and normal heart sounds. Pulmonary/Chest: Effort normal and breath sounds normal. Port CDI Abdominal: Soft. Bowel sounds are normal. Musculoskeletal: Normal range of motion. He exhibits edema (trace BLE). Lymphadenopathy: He has no cervical adenopathy. Neurological: He is alert and oriented to person, place, and time. Gait normal. Skin: Skin is warm and dry. No rash noted. No erythema. Psychiatric: Mood, memory, affect and judgment normal. Pertinent labs/studies (other than those mentioned in the HPI): Lab Results Component Value Date WBC 8.6 07/30/2019 HGB 13.6 07/30/2019 HCT 43.1 07/30/2019 MCV 100.0 07/30/2019 PLT 230 07/30/2019 Lab Results Component Value Date ALT 26 07/30/2019 AST 29 07/30/2019 ALKPHOS 71 07/30/2019 BILITOT 0.7 07/30/2019 Lab Results Component Value Date CREATININE 0.96 07/30/2019 BUN 20 07/30/2019 NA 142 07/30/2019 K 4.6 07/30/2019 CL 105 07/30/2019 CO2 29 07/30/2019 Lab Results Component Value Date GLUCOSE 81 07/30/2019 Assessment/Plan: 1) biopsy-proven stage IV pMMR KRAS MUT L-sided colon cancer with malignant pleural effusion and malignant ascites (both cytology-proven). Delayed by insurance, of which he obtained October 2018. CT CAP 10/05/18 showed PD -> FOLFOX (copay for xeloda too high) -> MN after 5 cycles with nice reduction in CEA -> maint 5FU with CT in July 2019 showing increased pleural effusion with 2 very small new lesions to right fissure. - cont maintenance 5FU. No avastin due to prior obstruction requiring stent - RTC 2 weeks with labs prior - follow CEA, was slowly rising, now dropping; today is pending - zofran prn 2) near obstruction of descending colon s/p stent placement - stool softener/laxative, reiterated need to maintain soft BM daily 3) obesity 4) HTN - pt knows to f/u with his primary MD to address his comorbidities, especially HTN 5) DM, poorly controlled. 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 SAPP stable. CEA falling. Echo in Jul 2018 showed normal EF. No other s/s of CHF Plan: Cont 5FU alone (no kelly) until PD RTC 2 weeks Kyle Hernandez M.D. [facility] documented in this encounter Plan of Treatment Date Type Specialty Care Team Description 07/30/2019 Hospital Encounter Infusion Center 9, [facility] Chair Arrived [address] [facility] 7th Floor, [address] [place] [address] [phone]/01/2019 Appointment Infusion Center 5, [facility] Chair [address] Floor, [address] [place] [address] 08/13/2019 Office Visit Hematology and Oncology Kyle Hernandez MD [address] [place] [address] 08/15/2019 Office Visit Gastroenterology Savanna Mccracken, RD [address] [facility] [address] [place] [address] 09/20/2019 Office Visit Endocrinology Nikhil Barfield MD [address] [facility] 8th Floor, [address] [place] [address] Name Type Priority Associated Diagnoses Order Schedule CBC W/AUTO DIFF WITH Lab STAT Colon cancer metastasized Ordered: 07/30/2019 PLATELETS to multiple sites (HCCode) COMPREHENSIVE METABOLIC Lab STAT Colon cancer metastasized Ordered: 2018 PANEL to multiple sites (HCCode) Health Maintenance Due Date Last Done Comments TETANUS SHOT (ADULT) 12/12/1975 ANNUAL DIABETIC FOOT EXAM 1978 ANNUAL DIABETIC RETINOPATHY 1978 SCREENING BMI FOLLOW UP PLAN 1978 HEPATITIS C SCREENING 1978 HIV SCREENING 1978 FLU VACCINE > 6 MONTHS 05/03/2019 08/02/2018 A1C TESTING EVERY 6 MONTHS 11/07/2019 05/07/2019 PREVNAR >=65 (PCV13) 2025 07/20/2018 COLON CANCER SCREENIN09/12/2028 09/12/2018, 09/11/2018, COLONOSCOPY 07/18/2018, Additional history exists documented as of this encounter Results Not on filedocumented in this encounter Visit Diagnoses Diagnosis Colon cancer metastasized to multiple sites (HCCode) - Primary Malignant neoplasm of colon, unspecified site Cancer related pain Neoplasm related pain (acute) (chronic) documented in this encounter Insurance Payer Benefit Plan / Subscriber ID Effective Dates Phone Address Type Group [facility] [employer] - xxxxxxxxxxx 2018-Present [address] [place] [address] (Home) [address] [place] [address] documented as of this encounter
--- OUTSIDE RECORDS SUMMARY | 2019-09-18 07:32 | XMS REPORT | Summary of Care ---
:1960 Author Organization [facility] [place] [address] Care Team Providers Name Role Phone Graham Goodwin MD Primary Care Provider Reason for Visit Reason Comments Nutrition Counseling Consult, Test & Treat (Routine) Status Reason Specialty Diagnoses / Referred By Referred To Procedures Contact Contact Authorization Not Consult, Gastroenterology Diagnoses Non-insulin dependent type 2 diabetes mellitus (HCCode) Non-insulin dependent type 2 diabetes mellitus E11.9 [place], [place], [place], Needed Test, and Procedures [place] MED NUTR THER, 1ST, INDIV, EA 15 MIN MD [place], RD Treat [address] [place] [address] [address] [facility], [address] [place] [phone] Phone: Fax: Encounter Details Date Type Department Care Team Description 07/18/2019 Office Visit [facility] Savanna Mccracken, Nutrition Counseling Medicine RD Gastroenterology [address] [facility] [address] [place] [address]. [facility] [address] 8th Floor, [address] [place] [id number] [place], [place] [phone] [phone] Allergies No Known Allergiesdocumented as of this encounter (statuses as of 07/18/2019) Medications Medication Sig Dispensed Refills Start Date [...] by 60 Each 0 03/12/2019 Active MG [id number]: mouth every 12 Colon cancer hours. metastasized [...] as of this encounter (statuses as of 07/18/2019) Active Problems Problem Noted Date Non-insulin dependent type 2 diabetes mellitus (HCCode) 05/23/2019 Colon cancer metastasized to multiple sites (HCCode) 07/24/2018 documented as of this encounter (statuses as of 07/18/2019) Social History Tobacco Use Types Packs/Day Years [...] of this encounter Last Filed Vital Signs Not on filedocumented in this encounter Progress Notes Savanna Mccracken, BLAS - 07/18/2019 9:00 AM CDT Nutrition Initial Data: This is a 58 year old Male Clinical Data: Diagnosis DM II, morbid obesity Current Weight and Height: Height is 70 in Weight is ->304 lbs. Weight is Current. BMI 43.6 (morbid obesity) Energy 1406-4664 calories per day (for weight loss) (45% carbs, 25% fat, 30% protein) Weight Change N/A Assessment: Pt reports recently eliminating sugary drinks from his diet. He states blood glucose ranges from 160s to 200s. He denies carb counting and admits to unhealthy snack choices at times (i.e. candy, chips etc). Further review of his diet intake indicated infrequent intake of wqyq-ndmfvyo-ttus foods, high saturated fat & high sodium intake. He denies any current exercise. I have provided extensive guidance on DM, HTN and weight loss mgmt. Intervention: Instructed pt. about caloric needs, carb food sources, carb counting based on weight loss goal Discussed meal planning strategies using visual aids and provided meal planning tools Discussed nutrition label reading to identify total caloric, carb, fat and sodium content of foods Reviewed anti-oxidant rich food sources and encouraged adequate intake Provided sample meal plans Plan: Pt to begin low carb diet (2331-0545 calories/day, 45% carbs, 30% protein, 25 % fat) Use meal planning guides provided Begin intake of some lean & plant-based protein foods Maintain a food and blood glucose log Consider mild exercise as tolerable after Physician clearance Bring log to follow up Follow-up in 4 wksElectronically signed by Savanna Mccracken RD at 2018 3:24 PM CDTdocumented in this encounter Plan of Treatment Date Type Specialty Care Team Description 07/30/2019 Office Visit Hematology and Oncology Miguel Bennett NP [address] [facility] 7th Floor, [address] [place] [address] 07/30/2019 Appointment Infusion Center 9, [facility] Chair [address] [facility] 7th Floor, [address] [place] [address] 08/01/2019 Appointment Infusion Center 5, [facility] Chair [address] [facility] 7th Floor, [address] [place] [address] 08/15/2019 Office Visit Gastroenterology Savanna Mccracken RD [address] [facility] [address] [place] [address] [phone] 09/20/2019 Office Visit Endocrinology Nikhil Barfield MD [address] [facility] 8th Floor, [address] [place] [address] [phone] Name Type Priority Associated Diagnoses Order Schedule [place] MED NUTR THER, [place] Charge Routine Diabetes Mellitus Treated Ordered: 1ST, CARLA BARON 15 With Insulin (Hccode) MIN Morbid obesity with BMI of 40.0-44.9, adult (HCCode) Health Maintenance Due Date Last Done [...] filedocumented in this encounter Visit Diagnoses Diagnosis Diabetes mellitus treated with insulin (HCCode) - Primary Morbid obesity with BMI of 40.0-44.9, adult (HCCode) documented in this encounter Insurance Payer Benefit Plan / Subscriber ID Effective Dates Phone Address Type Group [facility] [employer] - xxxxxxxxxxx 2018-Present [address] [place] [address] (Home) [address] [place] [address] documented as of this encounter
--- OUTSIDE RECORDS SUMMARY | 2019-09-18 07:32 | XMS REPORT | Summary of Care ---
:1960 Author Organization [facility] [place] [address] Care Team Providers Name Role Phone Graham Goodwin MD Primary Care Provider Reason for Referral Radiology Services (Routine) Status Reason Specialty Diagnoses / Procedures Referred By Referred To Contact Contact Pending Radiology Diagnoses Colon cancer metastasized to multiple sites (HCCode) Kyle Hernandez McNair , Radiology Procedures CT CHEST ABDOMEN PELVIS W CONTRAST [address] [facility] [address]st [place] [address] [place] [address] Reason for Visit Reason Comments Follow Up Encounter Details Date Type Department Care Team Description 06/18/2019 Office Visit [facility] Miguel Arizmendi, [facility] Azam [facility] [address] [facility] 7th Floor, [address] [place] [address] 7th Floor, [address] [phone] [place] [phone] Allergies No Known Allergiesdocumented as of this encounter (statuses as of 06/18/2019) Medications Medication Sig Dispensed Refills Start Date [...] by 60 Each 0 03/12/2019 Active MG [id number]: mouth every 12 Colon cancer hours. metastasized [...] 05/23/2019 Active MG tablet mouth every morning. documented as of this encounter (statuses as of 06/18/2019) Active Problems Problem Noted Date Non-insulin dependent type 2 diabetes mellitus (HCCode) 05/23/2019 Colon cancer metastasized to multiple sites (HCCode) 07/24/2018 documented as of this encounter (statuses as of 06/18/2019) Social History Tobacco Use Types Packs/Day Years [...] Sign Reading Time Taken Comments Blood Pressure 122/76 06/18/2019 9:21 AM CDT Pulse 80 06/18/2019 9:21 AM CDT Temperature 36.6 C (97.8 F) 06/18/2019 9:21 AM CDT Respiratory Rate - - Oxygen Saturation - - Inhaled Oxygen Concentration - - Weight 137.9 kg (304 lb) 06/18/2019 9:21 AM CDT Height 177.8 cm (5' 10") 06/18/2019 9:21 AM CDT Body Mass Index 43.62 06/18/2019 9:21 AM CDT documented in this encounter Patient Instructions Patient InstructionsArabella Hu CMA - 06/18/2019 8:30 AM CDT [facility] SECTION OF ONCOLOGY/HEMATOLOGY [phone] FAX [phone] Please note that all labs and or imaging results will be discussed at the next office visit unless told otherwise. if a problem occurs after hours please contact our office and have physician head refrigeration engineer paged [phone] Patient Instructions: (to be completed before next visit) RTC [address] and labs prior Please don't hesitate to call if you have any questions or concerns before your appt. TELL US ABOUT YOUR EXPERIENCE You may receive an email or letter from [facility] via our partner, [employer]. This is a survey about your experience today. Your feedback is important to us so we can improve. If any question does not apply to your visit, please leave it blank. Our goal is to ensure you have an exceptional experience at [facility]. If for any reason you cannot rate your experience as very good, please let a member of our staff know so wecan make immediate improvements. Thanks Arabella Hu CMA documented in this encounter Progress Notes Kyle Hernandez MD - 06/18/2019 8:30 AM CDTD/w STUDENT NURSE Bennett Aside from blood sugars, doing well Will give 2 more cycles of chemo and restage Kyle Hernandez M.D. Kalin Falcon [facility] yrd, Miguel Morris NP - 06/18/2019 8:30 AM CDT Patient: Shai Gonzalez Jr. 1960 58 y.o. with stage IV colon cancer diagnosed at [facility], here for f/u 06/18/2019 S: Needs to see PCP or endocrinology Has polyuria Taking glimepiride and linagliptin doing well on maintenance 5FU. Still with numbness/tingling to fingertips and toes, stable to a little worse. Blood sugars have been a problem due to dietary indiscrection. Has still seen endo (not scheduled until 06/29). Intermittent LUQ pain, lasts for a few seconds, resolves spontaneously. No CP/SOB, no N/V/D/C , no F/C/NS. ECOG PS 1 Course summary: - admitted to [facility] for obstipation - cScope 07/15/18 (Tasha@ [facility]): A malignant-appearing, intrinsic severe stenosis measuring 3 mm (inner diameter) was found in the descending colon and was non-traversed. This was stented with a 25 mm x 87 mm Ultraflex Precision stent under fluoroscopic guidance. Estimated blood loss was minimal. - CEA 766 on 07/15/18 - CT CAP 07/17/18 ([facility]): Metallic stent in the descending colon. No [...] with suspicious cells - R thoracentesis 07/17/18 ([facility]): 1043 WBC, 9500 RBCs; fluid not sent for cytology. Protein 5, albumin 2.9 - paracentesis 07/18/18: cytology + for adenoCA - cScope 07/18/18: partially obstructing descending colon mass with stent in place - R chest port 07/19/18, was supposed to start chemo but lost insurance - admitted to [facility] in Sep 2018 for LBO -> cScope [...] affect function). Endo/Heme/Allergies: Negative. Psychiatric/Behavioral: Negative. BP 122/76 (BP Location: left arm, Patient Position: Sitting, Cuff Size: large) | Pulse 80 | Temp 97.8 F (36.6 C) (Oral) | Ht 5' 10" (1.778 m) | Wt (!) 304 lb (137.9 kg) | BMI 43.62 kg/m Wt Readings from Last 3 Encounters: 06/18/19 (!) 304 lb (137.9 kg) 05/23/19 (!) 304 lb (137.9 kg) 05/21/19 298 lb 9.6 oz (135.4 kg) Physical Exam Constitutional: He is oriented [...] Lab Results Component Value Date WBC 8.6 06/18/2019 HGB 13.1 06/18/2019 HCT 40.4 06/18/2019 MCV 96.9 06/18/2019 PLT 178 06/18/2019 Lab Results Component Value Date ALT PENDING 06/18/2019 AST PENDING 06/18/2019 ALKPHOS PENDING 06/18/2019 BILITOT PENDING 06/18/2019 Lab Results Component Value Date CREATININE PENDING 06/18/2019 BUN PENDING 06/18/2019 NA PENDING 06/18/2019 K PENDING 06/18/2019 CL PENDING 06/18/2019 CO2 PENDING 06/18/2019 Lab Results Component Value Date GLUCOSE PENDING 06/18/2019 Assessment/Plan: 1) biopsy-proven stage IV pMMR KRAS MUT L-sided colon cancer with malignant pleural effusion and malignant ascites (both cytology-proven). Delayed by insurance, of which he obtained October 2018. 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 Kalin Qureshi Professor Azam Falcon [facility] documented in this encounter Plan of Treatment Date Type Specialty Care Team Description 06/20/2019 Appointment Infusion Center 12, [facility] Chair [address], [address] [place] [address] 07/02/2019 Appointment Infusion Center 9, [facility] Chair [address], [address] [place] [address] 07/04/2019 Appointment Infusion Center 5, [facility] Chair [address], [address] [place], [place] [phone] 07/16/2019 Office Visit Hematology and Oncology Miguel Bennett, KAVEH [address], [address] [place] [address] [phone] 07/16/2019 Appointment Infusion Center 9, [facility] Chair [address] 7th Floor, [address] [place] [address] 07/18/2019 Office Visit Gastroenterology Savanna Mccracken, RD [address] [facility] [address] [place], [place] [phone] 07/18/2019 Appointment Infusion Center 5, [facility] Chair [address] [facility] 7th Floor, [address] [place], [place] [phone] 09/20/2019 Office Visit Endocrinology Nikhil Barfield MD [address] [facility] 8th Floor, [address] [place], [place] [phone] Name Type Priority Associated Diagnoses Order Schedule CBC W/AUTO DIFF WITH Lab STAT Colon cancer Ordered: 06/18/2019 PLATELETS metastasized to multiple sites (HCCode) COMPREHENSIVE METABOLIC Lab STAT Colon cancer Ordered: 06/18/2019 PANEL metastasized to multiple sites (HCCode) CEA Lab Routine Colon cancer Ordered: 06/18/2019 metastasized to multiple sites (HCCode) MAGNESIUM Lab STAT Colon cancer Ordered: 06/18/2019 metastasized to multiple sites (HCCode) CT CHEST ABDOMEN PELVIS Imaging Routine Colon cancer 1 Occurrences W CONTRAST metastasized to starting 06/18/2019 multiple sites (HCCode) until 06/18/2020 Health Maintenance Due Date Last Done Comments [...] ID Effective Dates Phone Address Type Group [facility] - xxxxxxxxxxx 2018-Present [address] [place] [address] QU[place]IN Philip (Home) [address] [place] [address] documented as of this encounter
[2019-09-18 08:18] LABS: Absolute Lymphocytes (CBC) 1.3 K/uL (0.7-4.9); Basophils % 0.9 % (0-1.3); Hematocrit 43.6 % (39.6-49.0); Lymphocytes % 17.3 % (15.3-44.8); MPV 9.3 fL (7.6-11.3)
[2019-09-18 08:21] LABS: Protime INR 1.11
[2019-09-18] MEDS ORDERED: METOPROLOL TARTRATE 5 MG/5 ML INJ IV ONE (08:21)
[2019-09-18 08:32] LABS: ALT/SGPT 64 U/L (12-78); AST/SGOT 20 U/L (15-37); Albumin 3.4 g/dL (3.4-5.0); Alkaline Phosphatase 68 U/L (45-117); BUN Blood Urea Nitrogen 14 mg/dL (7-18); Bicarbonate 30 mmol/L (21-32); Bilirubin Direct 0.2 mg/dL (0-0.2); Bilirubin Total 0.4 mg/dL (0.2-1.0); Glucose Level 141 mg/dL (74-106); Magnesium 2.2 mg/dL (1.8-2.4); NT PRO-BNP 420 pg/mL (<125); Potassium 4.1 mmol/L (3.5-5.1); Protein, Total 7.4 g/dL (6.4-8.2); Sodium Level 141 mmol/L (136-145); Troponin (Emerg Dept Use Only) < 0.02 ng/mL (0.0-0.045)
--- NOTE | 2019-09-18 09:24 | RAD REPORT ---
EXAM DESCRIPTION: Alo Single View09/18/2019 7:56 am CLINICAL HISTORY: Palpitations COMPARISON: September 10, 2018 FINDINGS: Moderate right pleural effusion with right basilar atelectasis. Left lung appears clear. Heart is normal size Central venous line in place
[2019-09-18] MEDS ORDERED: FUROSEMIDE 40 MG/4 ML VIAL ONE (09:28)
--- NOTE | 2019-09-18 09:33 | RAD REPORT ---
EXAM DESCRIPTION: CT - Abdomen Pelvis W Contrast - 09/18/2019 9:06 am CLINICAL HISTORY: Abdominal pain COMPARISON: September 2018 TECHNIQUE: Computed axial tomography of the abdomen pelvis was obtained. 100 cc Isovue-300 was admin istered intravenously. Oral contrast was not requested which limits evaluation of bowel. All CT scans are performed using dose optimization technique as appropriate and may include automated exposure control or mA/KV adjustment according to patient size. FINDINGS: A moderate right pleural effusion with basilar atelectasis 32 millimeter left adrenal mass has decreased in size. Previously it measured 38 millimeters The liver, spleen, pancreas, right adrenal and kidneys appear unremarkable. There is no evidence of diverticulitis. A stent is present within the descending colon. An obstructio n is not present. Mild nodularity is present within the greater omentum. IMPRESSION: Moderate right pleural effusion Mild nodularity within greater omentum likely carcinomatosis. 32 millimeter left adrenal mass has decreased in size
--- NOTE | 2019-09-18 09:44 | EDPHYS ---
Physician Documentation [facility] Name: Shai Gonzalez Jr Age: 58 yrs Sex: Male : 1960 Arrival Date: 09/18/2019 Time: 07:28 Bed 6 Private MD: Trent Santiago H ED Physician Matty Hu HPI: 09/18 08:53 This 58 yrs old Black Male presents to ER via Ambulatory with complaints of Abdominal kb Pain, Shortness Of Breath, rapid heartbeat. 08:53 The patient has shortness of breath at rest. Onset: The symptoms/episode began/occurred kb 1 week(s) ago. Duration: The symptoms are continuous. The patient's shortness of breath is aggravated by exertion, light activity, is alleviated by nothing. Associated signs and symptoms: Pertinent positives: rapid heart rate, abd swelling. Severity of symptoms: At their worst the symptoms were moderate in the emergency department the symptoms are unchanged. The patient has not experienced similar symptoms in the past. The patient has been recently seen by a physician: the patient's primary care provider, 5 day(s) ago, with similar presenting complaints. Pt reports he has had abd swelling and shortness of breath for a week. Was seen by Dr Santiago on Tuesday and was told it was probably fluid, but no interventions were initiated. Today he went to [place] for cataract surgery and was told they couldn't do it because of his fast heart rate and difficulty breathing. Recommended he come to the ER. Historical: - Allergies: 07:46 No Known Allergies; ss - PMHx: 07:46 Asthma; colon cancer; Back pain; Diabetes - NIDDM; Gout; Hypertension; ss - PSHx: 07:46 Stent in bowel; ss - Immunization history:: Adult Immunizations up to date. - Social history:: Smoking status: Patient/guardian denies using tobacco. - Ebola Screening: : Patient denies exposure to infectious person Patient denies travel to an Ebola-affected area in the 21 days before illness onset. ROS: 08:50 Constitutional: Negative for fever, chills, and weight loss, ENT: Negative for injury, kb pain, and discharge, Neck: Negative for injury, pain, and swelling, Back: Negative for injury and pain, : Negative for injury, bleeding, discharge, and swelling, MS/Extremity: Negative for injury and deformity, Skin: Negative for injury, rash, and discoloration, Neuro: Negative for headache, weakness, numbness, tingling, and seizure. 08:50 Cardiovascular: Positive for palpitations. 08:50 Respiratory: Positive for dyspnea on exertion, shortness of breath. 08:50 Abdomen/GI: Positive for abdominal pain. Exam: 08:50 Constitutional: This is a well developed, well nourished patient who is awake, alert, kb and in no acute distress. Head/Face: Normocephalic, atraumatic. ENT: Nares patent. No nasal discharge, no septal abnormalities noted. Tympanic membranes are normal and external auditory canals are clear. Oropharynx with no redness, swelling, or masses, exudates, or evidence of obstruction, uvula midline. Mucous membranes moist. Neck: Trachea midline, no thyromegaly or masses palpated, and no cervical lymphadenopathy. Supple, full range of motion without nuchal rigidity, or vertebral point tenderness. No Meningismus. Chest/axilla: Normal chest wall appearance and motion. Nontender with no deformity. No lesions are appreciated. Back: No spinal tenderness. No costovertebral tenderness. Full range of motion. Skin: Warm, dry with normal turgor. Normal color with no rashes, no lesions, and no evidence of cellulitis. MS/ Extremity: Pulses equal, no cyanosis. Neurovascular intact. Full, normal range of motion. Neuro: Awake and alert, GCS 15, oriented to person, place, time, and situation. Cranial nerves II-XII grossly intact. Motor strength 5/5 in all extremities. Sensory grossly intact. Cerebellar exam normal. Normal gait. 08:50 Cardiovascular: Rate: tachycardic, Rhythm: regular, Pulses: no pulse deficits are appreciated, Heart sounds: S1, S2. 08:50 ECG was reviewed by the Attending Physician. 08:50 Respiratory: mild respiratory distress is noted, Respirations: labored breathing, that is mild, Breath sounds: decreased breath sounds, that are moderate, are located in both bases. 08:50 Abdomen/GI: Inspection: distension, that is moderate, that is severe, in the abdomen diffusely, Bowel sounds: normal, in all quadrants, Palpation: soft, in all quadrants, moderate abdominal tenderness, in the right lower quadrant. Vital Signs: 07:41 BP 152 / 108; Pulse 131; Resp 28; Temp 97.4(TE); Pulse Ox 97% ; Weight 148.32 kg; ss Height 5 ft. 11 in. (180.34 cm); Pain 7/10; 08:15 BP 148 / 105; Pulse 130; Resp 24 S; Pulse Ox 92% on R/A; aa5 08:20 Pulse Ox 97% on 4 lpm NC; aa5 08:24 BP 137 / 96; Pulse 125; Resp 22 S; Pulse Ox 97% on 4 lpm NC; aa5 08:29 BP 130 / 87; Pulse 105; Resp 24 S; Pulse Ox 96% on 4 lpm NC; aa5 08:38 BP 140 / 89; Pulse 98; Resp 22 S; Pulse Ox 96% on 4 lpm NC; aa5 09:34 BP 129 / 98; Pulse 110; Resp 28 S; Pulse Ox 95% on 4 lpm NC; aa5 10:15 BP 118 / 80; Pulse 114; Resp 20 S; Pulse Ox 98% on 4 lpm NC; aa5 12:30 BP 125 / 89; Pulse 131; Resp 26; Pulse Ox 95% on 3 lpm NC; Pain 0/10; ss 07:41 Body Mass Index 45.61 (148.32 kg, 180.34 cm) ss MDM: 07:31 Patient medically screened. kb 08:50 Data reviewed: vital signs, nurses notes. Data interpreted: Pulse oximetry: on room air kb is 96 %. Interpretation: normal. 09:41 Counseling: I had a detailed discussion with the patient and/or guardian regarding: the kb historical points, exam findings, and any diagnostic results supporting the discharge/admit diagnosis, lab results, radiology results, the need for further work-up and treatment in the hospital. 09:43 Physician consultation: Dustin Ramírez MD was called at 09:43, was contacted at 09:43, kb regarding admission, to the telemetry unit. patient's condition, and will see patient in ED, shortly. 09/18 07:38 Order name: Basic Metabolic Panel kb 09/18 07:38 Order name: CBC with Diff kb 09/18 07:38 Order name: LFT's kb 09/18 07:38 Order name: Magnesium kb 09/18 07:38 Order name: NT PRO-BNP kb 09/18 07:38 Order name: PT-INR 09/18 07:38 Order name: Troponin (emerg Dept Use Only) kb 09/18 08:24 Order name: Protime (+INR); Complete Time: 08:30 EDMS 09/18 08:24 Order name: CBC with Automated Diff; Complete Time: 08:30 EDMS 09/18 08:33 Order name: Basic Metabolic Panel; Complete Time: 08:36 EDMS 09/18 08:33 Order name: Liver (Hepatic) Function; Complete Time: 08:36 EDMS 09/18 08:33 Order name: Troponin (Emerg Dept Use Only); Complete Time: 08:36 EDMS 09/18 08:33 Order name: NT PRO-BNP; Complete Time: 08:36 EDMS 09/18 08:33 Order name: Magnesium; Complete Time: 08:36 EDMS 09/18 07:38 Order name: XRAY Chest (1 view) 09/18 07:38 Order name: EKG; Complete Time: 07:39 09/18 07:38 Order name: Cardiac monitoring; Complete Time: 07:41 kb 09/18 07:38 Order name: EKG - Nurse/Tech; Complete Time: 07:41 kb 09/18 07:38 Order name: IV Saline Lock; Complete Time: 08:04 kb 09/18 07:38 Order name: Labs collected and sent; Complete Time: 08:04 09/18 07:38 Order name: O2 Per Protocol; Complete Time: 07:42 kb 09/18 07:38 Order name: O2 Sat Monitoring; Complete Time: 07:42 09/18 07:38 Order name: CT Abd/Pelvis - IV Contrast Only 09/18 09:30 Order name: RAD; Complete Time: 09:31 EDMS 09/18 09:37 Order name: CT; Complete Time: 09:37 EDMS 09/18 11:15 Order name: Diet 2 Gm Sodium; Complete Time: 11:20 aa5 EC:50 Rate is 124 beats/min. Rhythm is regular. kb Administered Medications: 08:20 Drug: Lopressor 5 mg Route: IVP; Site: right forearm; aa5 08:25 Drug: Lopressor 5 mg Route: IVP; Site: right forearm; aa5 08:30 Drug: Lopressor 5 mg Route: IVP; Site: right forearm; aa5 08:40 Follow up: Response: No adverse reaction aa5 09:33 Drug: Lasix 40 mg Route: IVP; Site: right forearm; aa5 12:44 Drug: Digoxin 0.25 mg Route: IVP; Site: right forearm; ss 13:08 Follow up: Response: Cardiac rhythm is unchanged ss Disposition: 09/18/19 09:42 Hospitalization ordered by Dustin Ramírez for Observation. Preliminary diagnosis are Dyspnea, Tachycardia, unspecified, Pleural effusion, not elsewhere classified. - Bed requested for Telemetry/MedSurg (observation). - Status is Observation. ss - Condition is Stable. - Problem is new. - Symptoms are unchanged. UTI on Admission? No Signatures: Dispatcher [employer] EDMS Jenni Pemberton, CONRADO-C CHIEF COUNSEL-Caridad Collazo Audri, RN RN aa5 Yamilex Iglesias RN RN ss Everette Duvall RN RN ja1 Corrections: (The following items were deleted from the chart) 11:51 09:42 Hospitalization Ordered by Dustin Ramírez MD for Observation. Preliminary diagnosis bd is Dyspnea; Tachycardia, unspecified; Pleural effusion, not elsewhere classified. Bed requested for Telemetry/MedSurg (observation). Status is Observation. Condition is Stable. Problem is new. Symptoms are unchanged. UTI on Admission? No. kb 12:56 11:51 09/18/2019 09:42 Hospitalization Ordered by Dustin Ramírez MD for Observation. ja1 Preliminary diagnosis is Dyspnea; Tachycardia, unspecified; Pleural effusion, not elsewhere classified. Bed requested for Telemetry/MedSurg (observation). Status is Observation. Condition is Stable. Problem is new. Symptoms are unchanged. UTI on Admission? No. bd 13:08 12:56 09/18/2019 09:42 Hospitalization Ordered by Dustin Ramírez MD for Observation. ss Preliminary diagnosis is Dyspnea; Tachycardia, unspecified; Pleural effusion, not elsewhere classified. Bed requested for Telemetry/MedSurg (observation). Status is Observation. Condition is Stable. Problem is new. Symptoms are unchanged. UTI on Admission? No. ja1
--- NOTE | 2019-09-18 09:44 | ER ---
Nurse's Notes [facility] Name: Shai Gonzalez Jr Age: 58 yrs Sex: Male : 1960 Arrival Date: 09/18/2019 Time: 07:28 Bed 6 Private MD: Trent Santiago H Diagnosis: Dyspnea;Tachycardia, unspecified;Pleural effusion, not elsewhere classified Presentation: 09/18 07:42 Presenting complaint: Patient states: Went to have cataract surgery in [place] this ss morning and was told to come to the ER because his heart rate was high and he was breathing too fast. C/o abd pain/ distention x 1 week and SOB that has been getting worse over the past 3-4 days. Denies fever. Transition of care: patient was not received from another setting of care. Onset of symptoms was September 11, 2019. Risk Assessment: Do you want to hurt yourself or someone else? Patient reports no desire to harm self or others. Initial Sepsis Screen: Does the patient meet any 2 criteria? RR > 20 per min. HR > 90 bpm. Does the patient have a suspected source of infection? No. Patient's initial sepsis screen is negative. Care prior to arrival: None. 07:42 Acuity: MARIA INES 2 ss 07:42 Method Of Arrival: Ambulatory ss Historical: - Allergies: 07:46 No Known Allergies; ss - PMHx: 07:46 Asthma; colon cancer; Back pain; Diabetes - NIDDM; Gout; Hypertension; ss - PSHx: 07:46 Stent in bowel; ss - Immunization history:: Adult Immunizations up to date. - Social history:: Smoking status: Patient/guardian denies using tobacco. - Ebola Screening: : Patient denies exposure to infectious person Patient denies travel to an Ebola-affected area in the 21 days before illness onset. Screenin:00 Abuse screen: Denies threats or abuse. Nutritional screening: No deficits noted. aa5 Tuberculosis screening: No symptoms or risk factors identified. Fall Risk IV access (20 points). Total Holliday Fall Scale indicates No Risk (0-24 pts). Assessment: 07:45 General: Appears comfortable, Behavior is calm, cooperative. Pain: Complains of pain in aa5 right upper quadrant, left upper quadrant, right lower quadrant and left lower quadrant Pain does not radiate. Pain currently is 7 out of 10 on a pain scale. Quality of pain is described as "It just feels bloated" Pain began 2-3 days ago. Is continuous. Neuro: Level of Consciousness is awake, alert, obeys commands, Oriented to person, place, time, situation. Cardiovascular: Denies chest pain, palpitations, Heart tones S1 S2 present Rhythm is atrial fibrillation. Respiratory: Reports shortness of breath at rest since 2-3 days ago Airway is patent Respiratory effort is even, unlabored, Respiratory pattern is tachypnea Breath sounds are clear bilaterally. Denies cough. GI: Abdomen is distended, Bowel sounds present X 4 quads. Abd is soft and non tender X 4 quads. Reports bloating, Patient currently denies diarrhea, nausea, vomiting. : No signs and/or symptoms were reported regarding the genitourinary system. EENT: No signs and/or symptoms were reported regarding the EENT system. Derm: Skin is dry, Skin is normal, Skin temperature is warm. Musculoskeletal: Range of motion: intact in all extremities. 08:20 Reassessment: Pt sitting up in bed. A\\T\\O x 4, equal and unlabored respirations, skin is aa5 normal/warm/dry. A-fib with RVR on monitor. . 08:48 Reassessment: Pt to CT via stretcher . aa5 09:30 Neuro: Level of Consciousness is awake, alert, obeys commands, Oriented to person, aa5 place, time, situation. Cardiovascular: Rhythm is atrial fibrillation. Respiratory: Airway is patent Respiratory effort is even, unlabored, Respiratory pattern is regular, symmetrical. Derm: Skin is dry, Skin is normal, Skin temperature is warm. 12:30 Reassessment: Pt sitting up in bed, eating lunch, pt tolerating well. . aa5 13:04 Reassessment: Report called to JUAN M Rossi. Vital Signs: 07:41 BP 152 / 108; Pulse 131; Resp 28; Temp 97.4(TE); Pulse Ox 97% ; Weight 148.32 kg; ss Height 5 ft. 11 in. (180.34 cm); Pain 7/10; 08:15 BP 148 / 105; Pulse 130; Resp 24 S; Pulse Ox 92% on R/A; aa5 08:20 Pulse Ox 97% on 4 lpm NC; aa5 08:24 BP 137 / 96; Pulse 125; Resp 22 S; Pulse Ox 97% on 4 lpm NC; aa5 08:29 BP 130 / 87; Pulse 105; Resp 24 S; Pulse Ox 96% on 4 lpm NC; aa5 08:38 BP 140 / 89; Pulse 98; Resp 22 S; Pulse Ox 96% on 4 lpm NC; aa5 09:34 BP 129 / 98; Pulse 110; Resp 28 S; Pulse Ox 95% on 4 lpm NC; aa5 10:15 BP 118 / 80; Pulse 114; Resp 20 S; Pulse Ox 98% on 4 lpm NC; aa5 12:30 BP 125 / 89; Pulse 131; Resp 26; Pulse Ox 95% on 3 lpm NC; Pain 0/10; ss 07:41 Body Mass Index 45.61 (148.32 kg, 180.34 cm) ED Course: 07:28 Patient arrived in ED. am2 07:28 Trent Santiago DO is Private Physician. am2 07:31 Jenn[facility]ember[facility]C [facility]. kb 07:31 Anup Ovalles MD is Attending Physician. kb 07:41 Arm band placed on right wrist. ss 07:43 Matty Hu MD is Attending Physician. kb 07:45 Triage completed. ss 07:45 Patient has correct armband on for positive identification. Placed in gown. Bed in low aa5 position. Call light in reach. Side rails up X2. fine sander on. Pulse ox on. NIBP on. 07:45 EKG done, by senior technical support engineer. reviewed by Matty Hu MD. at1 08:01 Initial lab(s) drawn, by al, sent to lab. Inserted saline lock: 20 gauge in right dh3 forearm, using aseptic technique. Blood collected. 08:04 Meagan Patel, JUAN M is Primary Nurse. aa5 09:14 Patient moved back from [place]. aa5 09:42 Dustin Ramírez MD is Hospitalizing Provider. kb 12:44 No provider procedures requiring assistance completed. Patient admitted, IV remains in ss place. Administered Medications: 08:20 Drug: Lopressor 5 mg Route: IVP; Site: right forearm; aa5 08:25 Drug: Lopressor 5 mg Route: IVP; Site: right forearm; aa5 08:30 Drug: Lopressor 5 mg Route: IVP; Site: right forearm; aa5 08:40 Follow up: Response: No adverse reaction aa5 09:33 Drug: Lasix 40 mg Route: IVP; Site: right forearm; aa5 12:44 Drug: Digoxin 0.25 mg Route: IVP; Site: right forearm; ss 13:08 Follow up: Response: Cardiac rhythm is unchanged ss Output: 09:30 Urine: 200ml (Voided); Total: 200ml. aa5 Outcome: 09:42 Decision to Hospitalize by Provider. kb 13:04 Admitted to Tele accompanied by tech, family with patient, via wheelchair, room 415, ss with oxygen, with chart, Report called to JUAN M Rossi 13:04 Condition: good 13:04 Instructed on the need for admit. 13:08 Patient left the ED. Signatures: Jenni Pemberton, Meagan Bradley RN RN aa5 Yamilex Iglesias RN RN Vernell Navarrete, wafer line worker EKG Tat1 Vernell Rodriguez am2 Petra Paul 3 Corrections: (The following items were deleted from the chart) 07:59 07:45 EKG done, by senior technical support engineer. reviewed by Jenni SALGUERO at1 at1
[2019-09-18] MEDS ORDERED: DIGOXIN 0.25 MG/ML AMP IV SCH ×2 (12:00→17:00)
[2019-09-18] MEDS ORDERED: DIGOXIN 0.25 MG/ML AMP ONE (12:41)
[2019-09-18] MEDS ORDERED: GLUCAGON 1 MG/VIAL IM PRN (12:56)
[2019-09-18] MEDS ORDERED: ONDANSETRON 4 MG/2 ML VIAL IV PRN (12:56)
[2019-09-18] MEDS: INSULIN -REGULAR HUMAN 50 UNIT/0.5 ML ML SQ SCH ×3 (12:56→20:39)
[2019-09-18] MEDS ORDERED: D50W 25 GM/50 ML SYRINGE/VIAL IV PRN (12:56)
[2019-09-18] MEDS: ALBUTEROL 2.5 MG/3 ML NEB SOL NEB SCH ×2 (13:20→21:00)
[2019-09-18] MEDS: IPRATROPIUM BROM 0.5MG/2.5ML NEB SCH ×2 (13:20→21:00)
[2019-09-18 13:36] VITALS: BMI 45.6
[2019-09-18] MEDS ORDERED: CYCLOBENZAPRINE 10 MG TAB PO PRN (14:11)
[2019-09-18] MEDS: ACETAMINOPHEN 500 MG TAB PO PRN (14:37)
[2019-09-18] MEDS: METOPROLOL TARTRATE 5 MG/5 ML INJ IV PRN ×2 (14:38→23:18)
[2019-09-18 16:42] LABS: Urine Appearance CLEAR; Urine Bilirubin NEGATIVE (NEG); Urine Blood NEGATIVE (NEG); Urine Color YELLOW; Urine Glucose NEGATIVE (NEG); Urine Protein NEGATIVE (NEG); Urine Specific Gravity 1.025 (1.005-1.030); Urine pH 6.5 (5.0-7.0)
[2019-09-18 16:47] LABS: Urine Microscopic Reflex NO UMIC
[2019-09-18] MEDS ORDERED: ENOXAPARIN 100 MG/ML SYR SQ ONE (17:00)
[2019-09-18] MEDS: HYDROCODONE/APAP 10/325 TAB PO PRN (17:51)
[2019-09-18] MEDS: METOPROLOL TAR 50 MG TAB PO SCH (18:46)
[2019-09-18] MEDS: POLYETHYL GLY 3350 17 GM/DOSE PO SCH (20:41)
[2019-09-18] MEDS: DOCUSATE NA 100 MG CAP PO SCH (20:48)
[2019-09-18] MEDS: HUMALOG MIX 75/25 100 UNITS/ML SQ SCH (20:50)
--- NOTE | 2019-09-18 22:22 | HP ---
Date of Admission: 09/18/2019 Primary Care Physician: Trent Santiago DO. Consultants: 1.Dr. Velásquez with Cardiology. 2.Dr. Goddard with Pulmonology. Chief Complaint: Shortness of breath, palpitations. History Of Present Illness: Patient is a 58-year-old male with past medical history of colon cancer, advanced stage with metastases, diabetes, gout, hypertension, who has been having progressive shortn ess of breath over the past 1 week. Patient denies any chest pain, fever, chills, cough, or sputum p roduction. Patient does note some abdominal distention. Patient had gotten to see his PCP and was s cheduled for a cataract surgery this morning at [facility]. His surgery was canceled due to his symptoms including shortness of breath and he was found to be tachycardic, rate in the 150s to 1 30s. Patient then came back to [place] and came to the ER for further evaluation. His symptoms are constant, moderate, progressively worsening. Patient was given Lopressor x3 and then his rate i mproved to the low 100s and patient still remained short of breath. His chest x-ray showed significa nt right-sided pleural effusion. Patient was then also given 40 mg of Lasix and then referred for ad mission. Imaging Studies: Chest x-ray showed right pleural effusion. His CT scan of the abdomen and pelvis s howed nodularity within the greater omentum, likely carcinomatosis and adrenal mass, which was decrea sed in size. Patient was then referred for admission. When seen in the ER, he was awake, alert, poornima ented x3. Some mild distress. Past Medical History: Gout; hypertension; cataract; diabetes type 2, insulin-requiring; colon cancer currently on chemotherapy, last session 2 weeks ago. Follows with Oncology at [facility]. Past Surgical History: Right cataract surgery, left knee surgery, hip abscess removal. Allergies: NO KNOWN DRUG ALLERGIES. Medications: List reviewed. Social History: Patient denies any tobacco use, alcohol use, or illicit drug use. Patient is marrie d, independent in his activities of daily living. Family History: Patient denies any premature history of coronary artery disease in the family. Physical Examination: VITAL SIGNS: Blood pressure 152/108, pulse 131, respirations 28, temperature 97.4, O2 of 97% on 4 L via nasal cannula. BMI is 45. GENERAL: Awake, alert, oriented x3, appears in some mild distress, ill-appearing male. HEENT: Normocephalic, atraumatic. PERRLA. EOMI. Moist mucous membranes. Oropharynx is clear. No rmal dentition. Conjunctivae are anicteric. NECK: Supple. No JVD. Trachea midline. CV: S1, S2, irregularly irregular. Rapid rate. Peripheral pulses present. RESPIRATORY: Diminished breath sounds, right worse than left. Some rales heard. Patient is slightl y tachypneic. No use of accessory muscles. No stridor. GASTROINTESTINAL: Abdomen: Soft, nontender. However, is distended. Positive bowel sounds. No gua rding or rigidity. No tenderness to palpation. EXTREMITIES: No clubbing, cyanosis, or edema. No calf tenderness. NEURO: Cranial nerves 2 through 12 intact grossly. No focal neurological deficits. Speech is yoselyn l. Sensation is decreased to light touch in a stocking-glove distribution. SKIN: No rashes. Normal skin turgor. PSYCH: Mood is okay. Affect is full. Insight and judgment are good. Laboratory Data: Sodium 141, potassium 4.1, chloride 105, CO2 of 30, BUN 14, creatinine 1.02, glucos e 141, calcium 8.5, magnesium 2.2. Troponin less than 0.02. WBC 7.7, H and H 14.3 and 43.6, platele ts 235, neutrophils 70%. INR 1.1. Imaging Studies: CT abdomen and pelvis without contrast shows moderate right pleural effusion, mild nodularity within greater omentum, likely carcinomatosis. The 32 mm left adrenal mass has decreased in size. Chest x-ray shows moderate right pleural effusion with right basilar atelectasis. Left kaitlyn g appears clear. Heart normal in size. Central venous line in place. Assessment And Plan: A 58-year-old male with: 1.Shortness of breath, likely secondary to atrial fibrillation. Patient is hypoxic requiring 4 L of oxygen via nasal cannula. 2.Atrial fibrillation, new onset with rapid ventricular response, rate is improved with Lopressor; h owever, climbing back up to the 130s. We will check TSH, magnesium level, and have Cardiology evalua tion and echocardiogram. Patient will need to be placed on Lovenox. However, we will hold off as th e patient needs thoracentesis. 3.Moderate right pleural effusion. Patient would benefit from thoracentesis. We will reach out to radiologist to see if thoracentesis is possible under guidance. We will obtain pulmonary consultatio n. 4.Essential hypertension, stable. 5.Gout. We will continue home medications as appropriate. Plan: Admit patient to Med-Surg, place as inpatient. Length of stay greater than 2 midnights. ANGELI Voice ID: [id number]
[2019-09-19] MEDS: ALBUTEROL 2.5 MG/3 ML NEB SOL NEB SCH ×2 (02:00→07:55)
[2019-09-19] MEDS: IPRATROPIUM BROM 0.5MG/2.5ML NEB SCH ×2 (02:00→07:55)
[2019-09-19] MEDS: HYDROCODONE/APAP 10/325 TAB PO PRN ×3 (05:30→20:21)
[2019-09-19] MEDS: METOPROLOL TAR 50 MG TAB PO SCH (05:30)
[2019-09-19 06:13] LABS: Absolute Lymphocytes (CBC) 1.6 K/uL (0.7-4.9); Basophils % 0.8 % (0-1.3); Hematocrit 40.9 % (39.6-49.0); Lymphocytes % 21.2 % (15.3-44.8); RBC Red Blood Cell Count 4.25 M/uL (4.33-5.43)
[2019-09-19 06:46] LABS: Albumin 3.5 g/dL (3.4-5.0); Bilirubin Total 0.3 mg/dL (0.2-1.0); Potassium 4.2 mmol/L (3.5-5.1); Protein, Total 7.5 g/dL (6.4-8.2); Thyroid Stimulating Hormone 2.05 uIU/mL (0.360-3.740)
[2019-09-19] MEDS: INSULIN -REGULAR HUMAN 50 UNIT/0.5 ML ML SQ SCH ×4 (07:30→20:22)
--- NOTE | 2019-09-19 07:58 | EKG ---
Test Date: 2019-09-18 Test Time: 07:45:49 Assisted Living Administrator: SILVANO MEASUREMENT RESULTS: Intervals: Rate: 124 OH: QRSD: 76 QT: 314 QTc: 451 Bejou: P: -86 OH: QRS: 29 T: -78 INTERPRETIVE STATEMENTS: Atrial flutter with variable AV block T wave abnormality, consider inferior ischemia Abnormal ECG Compared to ECG 09/10/2018 12:49:53 Sinus rhythm no longer present Prolonged QT interval no longer present T-wave abnormality still present Electronically Signed On 09-19-19 07:57:35 [employer]ARDMASTER by Ranjith Bailey
[2019-09-19] MEDS: AMLODIPINE 10 MG TAB PO SCH (09:00)
[2019-09-19] MEDS: HUMALOG MIX 75/25 100 UNITS/ML SQ SCH ×2 (09:00→21:00)
--- NOTE | 2019-09-19 10:29 | RAD REPORT ---
EXAM DESCRIPTION: US - Thoracentesis w/ US Guide - 09/19/2019 9:26 am CLINICAL HISTORY: Pleural effusion. right pleural effusion, SOB, hypoxia COMPARISON: No comparisons FINDINGS: Preoperative diagnosis: Right pleural effusion Post operative diagnosis: Same Conscious Sedation: None. Estimated blood loss: Minimal Specimens:A small volume of fluid was sent for requested lab studies. The patient was placed in the upright recumbent position and the posterior right chest was prepped an d draped in the usual sterile fashion. 1% Lidocaine was infiltrated into the soft tissues for local anesthesia. Under sonographic guidance, a thoracentesis needle and 6 Argentine catheter was advanced in to the right pleural space. Approximately 1.5 liters yellow fluid was aspirated. Samples were sent to pathology for requested analysis. The patient tolerated the procedure without immediate complication and transferred to the floor in stable condition. IMPRESSION: Successful ultrasound-guided thoracentesis as detailed.
[2019-09-19 10:48] LABS: Appearance SLT. TURBID (CLEAR); Body Fluid Source PLEURAL; Body Fluid WBC 1245 /mm^3; Color of fluid Yellow (COLORLESS)
[2019-09-19] MEDS: TAMSULOSIN 0.4 MG SR CAP PO SCH (11:23)
[2019-09-19] MEDS: DOCUSATE NA 100 MG CAP PO SCH ×2 (11:24→20:21)
[2019-09-19] MEDS: SOTALOL HCL 80 MG TAB PO SCH ×2 (11:24→19:14)
[2019-09-19] MEDS: GLIMEPIRIDE 2 MG TABLET PO SCH (11:24)
[2019-09-19] MEDS: POLYETHYL GLY 3350 17 GM/DOSE PO SCH ×2 (11:25→20:21)
--- NOTE | 2019-09-19 11:29 | CON ---
History Of Present Illness: Mr. Gonzalez is 58. He came to the hospital with shortness of breath. He is found to have a large right pleural effusion and atrial fibrillation. I am asked to see him for the atrial fibrillation. Mr. Gonzalez was not aware his heart was beating fast. Not aware of having a trial fib before. His last visit with a doctor was about 4 days before this admission on September 14 , he was in an oncologist's office where he gets chemotherapy for metastatic colon cancer. A CAT sca n looks like there is a large right pleural effusion. It looks like there may be a loop of intestine in there as well to me. I am not sure what the radiologist found in it. There may be a loop of int estine in the right side of his chest as well. The patient has had surgery for the colon cancer. Th ere is a stent in his colon as well. The patient has never had myocardial infarction, stroke, atrial fib. Outpatient Oral Medications: Aspirin, amlodipine, GlycoLax, Zofran, insulin, hydrocodone, glimepirid e, docusate, cyclobenzaprine, carvedilol, and tamsulosin. Allergies: HE REPORTS NO ALLERGIES. Social History: Uses no tobacco or alcohol. Physical Examination: Constitutional: 5 feet 11 inches, 327 pounds. General: Alert, oriented, pleasant, not in distress. Lungs: Reveal no breath sounds on the right. Abdomen: Obese. Extremities: Mild edema. Heart: Irregularly irregular. Vital Signs: His blood pressure 135/54, heart rate 116. Impression: We really do not know how long he has been in atrial fibrillation. It certainly could b e much more than 48 hours easily. He is asymptomatic for that, so I think cardioverting him right no w would be risky. We want to slow his heart rate down to what we can. We will give him anticoagulat ion for 3 weeks to try to get him in normal rhythm. I will use Betapace to slow him down, which will give us a better chance of sustaining sinus rhythm if we get to that point where we do a cardioversi on. We will see if he can tolerate it. With the atrial fibrillation, he should not be on Zofran or cyclobenzaprine. I am not sure if he will have a thoracentesis today or not. I do not think Dr. Lara lopez or the radiologist had seen him yet. We will try Betapace instead of metoprolol to slow his hea rt rate and plan on doing a cardioversion after he can be anticoagulated for at least 3 weeks. RAYNE/DEVAN Voice ID: [id number] Report ID: [id number]
--- NOTE | 2019-09-19 12:18 | P.CNS ---
Date of Consult: 09/19/19 Reason for Consult: Pleural effusion shortness of breath Chief Complaint: Shortness of breath History of Present Illness: Patient is a 58 years of age with a history of colon cancer. Metastatic disease people other problems has been having progressive dyspnea over the past week this problem started when he was diagnosed with colon cancer about a year ago about 6 months ago then noticed some pleural effusion. This too small to do a thoracentesis patient also noticed some abdominal distention apparently he was scheduled to have a cataract surgery downtime is found to have a tachycardia and was sent here for evaluation patient recently had a thoracentesis and he is feeling much better. He has had a history of smoking for at least 40 years smoke about 1 or 2 packs a week any quick quite sometime ago no history of coronary artery disease increasing multiple DrAnastacia also saw all pulmonologists. Patient denies any cough or sputum hemoptysis fever or chills also has some lower extremity edema and was prescribed some diuretics Allergies No Known Allergies Allergy (Unverified 12/26/11 06:20) Home Medications: Amlodipine Besylate 1 tab PO DAILY #30 tablet 01/12/18 Aspirin [Aspirin EC 81 MG] 81 mg PO DAILY #90 tablet. 01/12/18 Carvedilol [Coreg] 1 tab PO BID 09/18/19 Cyclobenzaprine [Flexeril] 10 mg PO TID PRN 09/18/19 Docusate [Colace Cap*] 1 cap PO BID 09/18/19 Glimepiride 1 tab PO DAILY 09/18/19 Hydrocodone Bit/Acetaminophen [Hydrocodon-Acetaminophn 10-325] 1 tab PO Q6H PRN 09/18/19 Insulin Aspart Protam & Aspart [Novolog Mix 70-30 Flexpen Syrn] 30 units SQ BID 09/18/19 Ondansetron HCl 1 tab PO Q8H PRN 09/18/19 Polyethyl Gly 3350 [Glycolax*] 1 packet PO BID 09/18/19 Tamsulosin HCl 1 tab PO DAILY 09/18/19 - Past Medical/Surgical History Diabetic: Yes -: gout -: HTN -: cataracts -: DM -: colon cancer -: L knee surgery -: hip abscess removal - Family History Mother Medical History: Hypertension Father Medical History: Cancer Notes: throat cancer - Social History Smoking Status: Former smoker, Unknown if ever smoked Alcohol use: No CD- Drugs: No Caffeine use: Yes Place of Residence: Home Review of Systems 10-point ROS is otherwise unremarkable General: Weakness Respiratory: Shortness of Breath Cardiovascular: Edema Physical Examination Temp Pulse Resp BP Pulse Ox 97.2 F 103 H 20 110/62 95 09/19/19 12:00 09/19/19 12:00 09/19/19 12:00 09/19/19 12:00 09/19/19 12:00 General: Alert, In no apparent distress, Oriented x3 HEENT: Atraumatic Neck: Supple Respiratory: Clear to auscultation bilaterally, Diminished (Diminished on the right side) Cardiovascular: Edema (Minimal edema), Irregular heart rate/rhythm Gastrointestinal: Normal bowel sounds, Soft and benign - Problems (1) Pleural effusion Current Visit: Yes Status: Acute Plan: The patient is a 58 years of age immediately dyspnea over the past week is fond of significant right-sided pleural effusion status post thoracentesis 1.5 ET was drained by the radiologist's just straw-colored feeling much better report throughout thromboembolism he is high risk he also has intra-abdominal carcinomatosis perforation SP sigmoid predominance of lymphocytes in may be malignant effusion (2) Atrial fibrillation Current Visit: Yes Status: Acute Plan: The patient has new onset of atrial fibrillation is anticoagulated rate control echocardiogram he may have underlying COPD Qualifiers: Atrial fibrillation type: paroxysmal Qualified Code(s): I48.0 - Paroxysmal atrial fibrillation
[2019-09-19] MEDS ORDERED: IPRATROPIUM BROM 0.5MG/2.5ML NEB PRN (12:21)
[2019-09-19] MEDS ORDERED: ALBUTEROL 2.5 MG/3 ML NEB SOL NEB PRN (12:21)
--- NOTE | 2019-09-19 13:45 | RAD REPORT ---
EXAM DESCRIPTION: US - Extrem Venous W Compress Mahamed - 09/19/2019 1:21 pm CLINICAL HISTORY: Rule out DVT Bilateral leg edema and swelling. COMPARISON: Upper Lower Extrem Art Multi dated 01/05/2017 TECHNIQUE: Real-time sonographic interrogation of the left and right lower extremity deep venous sys tems was performed. FINDINGS: Normal compressibility, flow augmentation, phasic flow and spontaneous flow is identified in both the left and right lower extremity deep venous systems. IMPRESSION: No sonographic evidence of left or right lower extremity deep venous thrombosis.
--- NOTE | 2019-09-19 14:18 | P.PN ---
Subjective Date of Service: 09/19/19 Primary Care Provider: Dr. Santiago; Oncology-Dr. Brooke Chief Complaint: Shortness of breath Subjective: Doing well Physical Examination - Vital Signs Temperature: 97.2 F Blood Pressure: 110/62 Pulse: 103 Respirations: 20 Pulse Ox (%): 95 - Physical Exam General: Alert, In no apparent distress, Oriented x3 HEENT: Atraumatic Neck: Supple Respiratory: Diminished (To the right side) Cardiovascular: Irregular heart rate/rhythm (AFib rate around 100) Gastrointestinal: Normal bowel sounds Musculoskeletal: No tenderness, No warmth Integumentary: No erythema, No warmth, No cyanosis Neurological: Normal speech, Normal strength at 5/5 x4 extr, Normal tone - Studies Medications List Reviewed: Yes Assessment & Plan Discharge Plan: Home Plan to discharge in: Greater than 2 days Physician Review Additional Text: Impression: Shortness of breath secondary to moderate right pleural effusion suspect CHF related versus malignant process New onset atrial fibrillation with RVR Hypertension Diabetes mellitus type 2 History of colon cancer on chemotherapy BPH Plan: Shortness of breath secondary to moderate right pleural effusion suspect CHF related versus malignant process: Case discussed with pulmonology. Patient will have thoracentesis. Will obtain lab to further evaluate. Will continue monitor closely after thoracentesis. Will maintain sats above 90%. Will obtain echocardiogram. Anticipate improvement over the next 2-3 days. New onset atrial fibrillation with RVR: Reviewed notes from cardiology. Cardiology plans to discontinue metoprolol and jacquard loom card changer to sotalol. Patient will require chronic anti coagulation therapy. Will discuss further with cardiology. Hypertension: Will monitor closely. Will provide medication. Diabetes mellitus type 2: Continue Accu-Cheks. Continue sliding scale. Will continue with basal insulin. History of colon cancer on chemotherapy: Patient recently had chemotherapy. BPH: Continue with medication. Time Spent Managing Pts Care (In Minutes): 55
--- NOTE | 2019-09-19 14:44 | RAD REPORT ---
EXAM DESCRIPTION: CT - Chest Angio - 09/19/2019 2:31 pm CLINICAL HISTORY: Chest pain. Rule out PE COMPARISON: Chest For Pe Angio dated 11/30/2016; Extrem Venous W Compress Mahamed dated 09/19/2019 TECHNIQUE: CT angiogram of the pulmonary arteries was performed with MIP. All CT scans are performed using dose optimization technique as appropriate and may include automated exposure control or mA/KV adjustment according to patient size. FINDINGS: No evidence of pulmonary thromboembolism. No acute aortic finding demonstrated. Right lung base opacity is present likely representing atelectasis or pneumonia. A small right pleura l effusion is noted. Poorly defined opacities in the right lung probably represent mild re-expansion pulmonary edema status post recent thoracentesis. No left-sided pleural effusion. No pericardial effusion. A noncalcified anterolateral right-sided ple ural plaque is evident. No pneumothorax. No concerning bony finding. IMPRESSION: No evidence of pulmonary thromboembolism.
[2019-09-20 04:42] LABS: Albumin 3.1 g/dL (3.4-5.0); Bilirubin Total 0.3 mg/dL (0.2-1.0); Magnesium 2.5 mg/dL (1.8-2.4); Potassium 4.7 mmol/L (3.5-5.1); Protein, Total 6.6 g/dL (6.4-8.2)
[2019-09-20 04:43] LABS: Absolute Lymphocytes (CBC) 1.5 K/uL (0.7-4.9); Basophils % 0.5 % (0-1.3); Hematocrit 37.9 % (39.6-49.0); Lymphocytes % 23.3 % (15.3-44.8); MPV 9.1 fL (7.6-11.3); RBC Red Blood Cell Count 3.92 M/uL (4.33-5.43)
[2019-09-20] MEDS: SOTALOL HCL 80 MG TAB PO SCH (05:01)
[2019-09-20] MEDS: HYDROCODONE/APAP 10/325 TAB PO PRN (05:01)
[2019-09-20 05:10] LABS: Blood Morphology Comment NOT SEEN (NOT SEEN); Platelet Estimate ADEQ
[2019-09-20] MEDS: INSULIN -REGULAR HUMAN 50 UNIT/0.5 ML ML SQ SCH ×2 (07:30→11:30)
--- NOTE | 2019-09-20 07:53 | ECHO ---
HEIGHT: 5 ft 11 in WEIGHT: 327 lb 0 oz DATE OF STUDY: 09/19/[address]: Dustin Ramírez MD 2-DIMENSIONAL: YES M.MODE: YES DOPPLER: YES COLOR FLOW: YES TDS: YES PORTABLE: NO DEFINITY: NO BUBBLE STUDY: NO DIAGNOSIS: ATRIAL FIBRILLATION CARDIAC HISTORY: CATHERIZATION: NO SURGERY: NO PROSTHETIC VALVE: NO PACEMAKER: NO MEASUREMENTS (cm) DIASTOLIC (NORMALS) SYSTOLIC (NORMALS) IVSd 1.5 (0.6-1.2) LA Diam 3.4 (1.9-4.0) LVEF 59% LVIDd 4.0 (3.5-5.7) LVIDs 2.8 (2.0-3.5) %FS 31% LVPWd 1.5 (0.6-1.2) Ao Diam 2.9 (2.0-3.7) 2 DIMENSIONAL ASSESSMENT: RIGHT ATRIUM: NORMAL LEFT ATRIUM: NORMAL RIGHT VENTRICLE: NORMAL LEFT VENTRICLE: LEFT VENTRICULAR HYPERTROPHY TRICUSPID VALVE: NORMAL MITRAL VALVE: NORMAL PULMONIC VALVE: NORMAL AORTIC VALVE: NORMAL PERICARDIAL EFFUSION: NONE AORTIC ROOT: NORMAL LEFT VENTRICULAR WALL MOTION: NORMAL DOPPLER/COLOR FLOW: TRACE MITRAL AND TRICUSPID REGURGITATION. NORMAL RIGHT VENTRICULAR SYSTOLIC PRESSURE. COMMENTS: NORMAL LEFT VENTRICULAR EJECTION FRACTION. LEFT VENTRICULAR HYPERTROPHY. TRACE MITRAL AND TRICUSPID REGURGITATION. ATRIAL FIBRILLATION. HEART RATE 75-90 BEATS PER MINUTE. TECHNOLOGIST: Sushila BOYER
--- NOTE | 2019-09-20 08:26 | RAD REPORT ---
EXAM DESCRIPTION: Nathaliat Single View09/20/2019 6:59 am CLINICAL HISTORY: Chest pain COMPARISON: September 18, 2019 FINDINGS: Small right pleural effusion with right basilar atelectasis Left lung appears clear. Heart is enlarged Heart is enlarged. Central venous line with its tip in the superior vena cava
--- NOTE | 2019-09-20 08:32 | P.PN ---
Subjective Date of Service: 09/20/19 Primary Care Provider: Dr. Santiago; Oncology-Dr. Brooke Chief Complaint: Pleural effusion Subjective: Improving (Patient is improving doing well shortness of breath has improved) Review of Systems General: Weakness Respiratory: Shortness of Breath Physical Examination - Vital Signs Temperature: 97.6 F Blood Pressure: 110/57 Pulse: 80 Respirations: 17 Pulse Ox (%): 98 - Physical Exam General: Alert, Oriented x3 Respiratory: Clear to auscultation bilaterally, Diminished (On the right side) Cardiovascular: No edema, Regular rate/rhythm - Studies Medications List Reviewed: Yes Assessment & Plan - Problems (Diagnosis) (1) Pleural effusion Current Visit: Yes Status: Acute Plan: Status post thoracentesis is doing much better lymphocytic predominant suspicious of metastatic cancer no evidence of DVT or pulmonary embolism awaiting chemistries and cytology vital signs stable chest x-ray no evidence of pneumothorax no DVT stable for discharge to follow with me in 2 weeks (2) Atrial fibrillation Current Visit: Yes Status: Acute Plan: Patient in AFib rate controlled echocardiogram normal Qualifiers: Atrial fibrillation type: paroxysmal Qualified Code(s): I48.0 - Paroxysmal atrial fibrillation Physician Review Additional Text: Impression: Shortness of breath secondary to moderate right pleural effusion suspect CHF related versus malignant process New onset atrial fibrillation with RVR Hypertension Diabetes mellitus type 2 History of colon cancer on chemotherapy BPH Plan: Shortness of breath secondary to moderate right pleural effusion suspect CHF related versus malignant process: Case discussed with pulmonology. Patient will have thoracentesis. Will obtain lab to further evaluate. Will continue monitor closely after thoracentesis. Will maintain sats above 90%. Will obtain echocardiogram. Anticipate improvement over the next 2-3 days. New onset atrial fibrillation with RVR: Reviewed notes from cardiology. Cardiology plans to discontinue metoprolol and bladder changer to sotalol. Patient will require chronic anti coagulation therapy. Will discuss further with cardiology. Hypertension: Will monitor closely. Will provide medication. Diabetes mellitus type 2: Continue Accu-Cheks. Continue sliding scale. Will continue with basal insulin. History of colon cancer on chemotherapy: Patient recently had chemotherapy. BPH: Continue with medication.
[2019-09-20 08:47] VITALS: O2SAT 96
--- NOTE | 2019-09-20 08:51 | P.DS ---
Admission Date: 09/18/19 Discharge Date: 09/20/19 Primary Care Provider: Dr. Santiago; Oncology-Dr. Brooke([facility]) [facility] Discharge Condition: GOOD Reason for Admission: Pleural effusion Consultations: Pulmonary-Dr. Goddard Cardiology-Dr. Velásquez Procedures: CT AB Scan: FINDINGS: A moderate right pleural effusion with basilar atelectasis 32 millimeter left adrenal mass has decreased in size. Previously it measured 38 millimeters The liver, spleen, pancreas, right adrenal and kidneys appear unremarkable. There is no evidence of diverticulitis. A stent is present within the descending colon. An obstruction is not present. Mild nodularity is present within the greater omentum. IMPRESSION: Moderate right pleural effusion Mild nodularity within greater omentum likely carcinomatosis. 32 millimeter left adrenal mass has decreased in size CT Chest: FINDINGS: No evidence of pulmonary thromboembolism. No acute aortic finding demonstrated. Right lung base opacity is present likely representing atelectasis or pneumonia. A small right pleural effusion is noted. Poorly defined opacities in the right lung probably represent mild re-expansion pulmonary edema status post recent thoracentesis. No left-sided pleural effusion. No pericardial effusion. A noncalcified anterolateral right-sided pleural plaque is evident. No pneumothorax. No concerning bony finding. IMPRESSION: No evidence of pulmonary thromboembolism. ECHO: Ejection fraction 59% LEFT VENTRICULAR WALL MOTION: NORMAL DOPPLER/COLOR FLOW: TRACE MITRAL AND TRICUSPID REGURGITATION. NORMAL RIGHT VENTRICULAR SYSTOLIC PRESSURE. COMMENTS: NORMAL LEFT VENTRICULAR EJECTION FRACTION. LEFT VENTRICULAR HYPERTROPHY. TRACE MITRAL AND TRICUSPID REGURGITATION. ATRIAL FIBRILLATION. HEART RATE 75-90 BEATS PER MINUTE. Venous Doppler: FINDINGS: Normal compressibility, flow augmentation, phasic flow and spontaneous flow is identified in both the left and right lower extremity deep venous systems. IMPRESSION: No sonographic evidence of left or right lower extremity deep venous thrombosis Thorancentesis: COMPARISON: No comparisons FINDINGS: Preoperative diagnosis: Right pleural effusion Post operative diagnosis: Same Conscious Sedation: None. Estimated blood loss: Minimal Specimens:A small volume of fluid was sent for requested lab studies. The patient was placed in the upright recumbent position and the posterior right chest was prepped and draped in the usual sterile fashion. 1% Lidocaine was infiltrated into the soft tissues for local anesthesia. Under sonographic guidance, a thoracentesis needle and 6 [place] catheter was advanced into the right pleural space. Approximately 1.5 liters yellow fluid was aspirated. Samples were sent to pathology for requested analysis. The patient tolerated the procedure without immediate complication and transferred to the floor in stable condition. IMPRESSION: Successful ultrasound-guided thoracentesis as detailed. Follow up CXR: COMPARISON: September 18, 2019 FINDINGS: Small right pleural effusion with right basilar atelectasis Left lung appears clear. Heart is enlarged Heart is enlarged. Central venous line with its tip in the superior vena cava Medical Problem List: Shortness of breath secondary to moderate right pleural effusion possibly related to atrial fibrillation New onset atrial fibrillation with RVR Hypertension Diabetes mellitus type 2 insulin dependent History of colon cancer on chemotherapy with metastasis to the greater omentum likely omental carcinomatosis and adrenal gland BPH History of colonic stent Brief History of Present Illness: 58 yo AAM with history of colon cancer with mets on chemotherapy, DM, HTN presented with shortness of breath. He was to have surgery on the day of admission but sent to the ER for evaluation. He was found to have pleural effusions and Atrial fibrillation with RVR. He was admitted for further evaluation and treatment. Hospital Course: Patient presented with shortness of breath secondary to right pleural effusion. He was given IV diuretic therapy. He was also seen by Pulmonary. Due to his history of colon cancer and mets, thorancentesis was recommended. He had a radiology assisted US guided thorancentesis. This was successful and patient tolerated the procedure well. Repeat CXR showed improvement. He is without SOB today. No need for home oxygen. Pathology from thoracentesis showed no malignant cells. Pleural effusion may be related to underlying AFib. Echocardiogram shows normal ejection fraction. Patient is to have another chemotherapy treatment soon. Recommend follow up with oncology within 1 week to further address and monitor. Recommend recheck chest x-ray in 2-4 weeks to monitor resolution.. Patient also was found to have new onset atrial fibrillation with RVR. Echocardiogram shows normal ejection fraction. Cardiology was consulted. Patient initially on beta-trisha therapy. This was switched over to Betapace. At discharge patient will continue with Betapace 80 mg 1 pill twice daily. Patient will also continue with chronic anti coagulation therapy-Eliquis 5 mg 1 pill twice daily. Education on Betapace and Eliquis provided. Recommend follow up with cardiology in 2-3 weeks. If the patient remains in atrial fibrillation, cardiology will consider cardioversion after that time. Education on atrial fibrillation also provided. Please note Flexeril and Zofran have been discontinued as this may interfere with Betapace. Patient with hypertension. Patient previously on carvedilol and Norvasc. Carvedilol was discontinued since the patient is on Betapace. This has remained stable. At discharge he will continue with medication-Norvasc 10 mg daily. Carvedilol has been discontinued. Recommend to maintain blood pressures less 150/80. Further adjustment can be done by his PCP. Patient with diabetes mellitus type 2 insulin-dependent. This has remained stable. Patient will continue with his insulin therapy-insulin 70/30 30 units subcu twice daily. Patient will also continue with glimepiride 4 mg daily. Patient is to monitor for hypoglycemia since the patient is on insulin and glimepiride. May need to consider discontinuing glimepiride if with low blood sugars. Recommend to maintain blood sugars less 140 fasting and less than 200 after meals. Further adjustment can be done by his PCP. Patient with BPH. At discharge he will continue with medication-Flomax 0.4 mg daily. As mentioned above patient with stage IV colon cancer. CT scan revealed a stent within the descending colon. No obstruction seen. Mild nodularity within the greater omentum likely carcinomatosis. 32 mm left adrenal mass has decreased in size. Patient continues with chemotherapy as an outpatient. Patient gets chemotherapy and care at [facility] in [place]. Recommend to follow up with oncology within 1 week to follow up this hospitalization. Vital Signs/Physical Exam: Temp Pulse Resp BP Pulse Ox 97.6 F 80 17 110/57 L 98 09/20/19 08:31 09/20/19 08:31 09/20/19 08:31 09/20/19 08:31 09/20/19 08:31 General: Alert, In no apparent distress, Oriented x3 HEENT: Atraumatic Neck: Supple Respiratory: Clear to auscultation bilaterally, Normal air movement Cardiovascular: Irregular heart rate/rhythm (AFib rate controlled) Gastrointestinal: Normal bowel sounds, Soft and benign, No masses, No rebound, No guarding, Ascites Musculoskeletal: No erythema, No tenderness, No warmth Integumentary: No erythema, No warmth, No cyanosis Neurological: Normal speech, Normal strength at 5/5 x4 extr, Normal tone, Normal affect Laboratory Data at Discharge: WBC 6.5 K/uL (4.3-10.9) D 09/20/19 03:26 Hgb 12.4 g/dL (13.6-17.9) L 09/20/19 03:26 Hct 37.9 % (39.6-49.0) L 09/20/19 03:26 Plt Count 226 K/uL (152-406) 09/20/19 03:26 PT 13.1 SECONDS (9.5-12.5) H 09/18/19 08:01 INR 1.11 09/18/19 08:01 Sodium 140 mmol/L (136-145) 09/20/19 03:26 Potassium 4.7 mmol/L (3.5-5.1) 09/20/19 03:26 BUN 22 mg/dL (7-18) H 09/20/19 03:26 Creatinine 1.23 mg/dL (0.55-1.3) 09/20/19 03:26 Glucose 158 mg/dL (74-106) H 09/20/19 03:26 Magnesium 2.5 mg/dL (1.8-2.4) H 09/20/19 03:26 Total Bilirubin 0.3 mg/dL (0.2-1.0) 09/20/19 03:26 AST 20 U/L (15-37) 09/20/19 03:26 ALT 51 U/L (12-78) 09/20/19 03:26 Alkaline Phosphatase 65 U/L (45-117) 09/20/19 03:26 Home Medications: Amlodipine Besylate 1 tab PO DAILY #30 tablet 01/12/18 Docusate [Colace Cap*] 1 cap PO BID 09/18/19 Glimepiride 1 tab PO DAILY 09/18/19 Hydrocodone Bit/Acetaminophen [Hydrocodon-Acetaminophn 10-325] 1 tab PO Q6H PRN 09/18/19 Insulin Aspart Protam & Aspart [Novolog Mix 70-30 Flexpen Syrn] 30 units SQ BID 09/18/19 Polyethyl Gly 3350 [Glycolax*] 1 packet PO BID 09/18/19 Tamsulosin HCl 1 tab PO DAILY 09/18/19 Apixaban [Eliquis] 5 mg PO BID #60 tablet 09/20/19 Sotalol HCl [Betapace*] 80 mg PO BID 6AM 6PM #60 tab 09/20/19 New Medications: Apixaban [Eliquis] 5 mg PO BID #60 tablet Sotalol HCl [Betapace*] 80 mg PO BID 6AM 6PM #60 tab Patient Discharge Instructions: 1. Recommend follow up with PCP within 1 week. 2. Patient presented with shortness of breath secondary to right pleural effusion. He was given IV diuretic therapy. He was also seen by Pulmonary. Due to his history of colon cancer and mets, thorancentesis was recommended. He had a radiology assisted US guided thorancentesis. This was successful and patient tolerated the procedure well. Repeat CXR showed improvement. He is without SOB today. No need for home oxygen. Pathology from thoracentesis showed no malignant cells. Pleural effusion may be related to underlying AFib. Echocardiogram shows normal ejection fraction. Patient is to have another chemotherapy treatment soon. Recommend follow up with oncology within 1 week to further address and monitor. Recommend recheck chest x-ray in 2-4 weeks to monitor resolution.. 3. Patient also was found to have new onset atrial fibrillation with RVR. Echocardiogram shows normal ejection fraction. Cardiology was consulted. Patient initially on beta-trisha therapy. This was switched over to Betapace. At discharge patient will continue with Betapace 80 mg 1 pill twice daily. Patient will also continue with chronic anti coagulation therapy-Eliquis 5 mg 1 pill twice daily. Education on Betapace and Eliquis provided. Recommend follow up with cardiology in 2-3 weeks. If the patient remains in atrial fibrillation, cardiology will consider cardioversion after that time. Education on atrial fibrillation also provided. Please note Flexeril and Zofran have been discontinued as this may interfere with Betapace. 4. Patient with hypertension. Patient previously on carvedilol and Norvasc. Carvedilol was discontinued since the patient is on Betapace. This has remained stable. At discharge he will continue with medication-Norvasc 10 mg daily. Carvedilol has been discontinued. Recommend to maintain blood pressures less 150/80. Further adjustment can be done by his PCP. 5. Patient with diabetes mellitus type 2 insulin-dependent. This has remained stable. Patient will continue with his insulin therapy-insulin 70/30 30 units subcu twice daily. Patient will also continue with glimepiride 4 mg daily. Patient is to monitor for hypoglycemia since the patient is on insulin and glimepiride. May need to consider discontinuing glimepiride if with low blood sugars. Recommend to maintain blood sugars less 140 fasting and less than 200 after meals. Further adjustment can be done by his PCP. 6. Patient with BPH. At discharge he will continue with medication-Flomax 0.4 mg daily. 7. As mentioned above patient with stage IV colon cancer. CT scan revealed a stent within the descending colon. No obstruction seen. Mild nodularity within the greater omentum likely carcinomatosis. 32 mm left adrenal mass has decreased in size. Patient continues with chemotherapy as an outpatient. Patient gets chemotherapy and care at [facility] in [place]. Recommend to follow up with oncology within 1 week to follow up this hospitalization. Diet: ADA Activity: Ad naida Time spent managing pt's care (in minutes): 55
[2019-09-20] MEDS: GLIMEPIRIDE 2 MG TABLET PO SCH (09:00)
[2019-09-20] MEDS: AMLODIPINE 10 MG TAB PO SCH (09:00)
[2019-09-20] MEDS: HUMALOG MIX 75/25 100 UNITS/ML SQ SCH (09:00)
[2019-09-20] MEDS: POLYETHYL GLY 3350 17 GM/DOSE PO SCH (09:06)
[2019-09-20] MEDS: DOCUSATE NA 100 MG CAP PO SCH (09:06)
[2019-09-20] MEDS: TAMSULOSIN 0.4 MG SR CAP PO SCH (09:07)
[2019-09-20] MEDS: ACETAMINOPHEN 500 MG TAB PO PRN (09:20)
[2019-09-20 12:06] VITALS: BP 115/62; TEMP 97.5
--- NOTE | 2019-09-20 13:41 | PN ---
Date of Progress Note: 09/20/2019 Mr. Gonzalez had came in with ascites, pleural effusion, hypoxia, was found to have atrial fibrillation . Dr. Bailey placed him on Betapace 80 mg 1 p.o. b.i.d. His initial heart rate was in the 150s. He is now in the 70s to 80s, but remained in atrial fibrillation. He should be on Betapace and Xarelto and as far as we concerned whenever it is okay with Dr. Peters, he can go home. We will plan a card ioversion at about 3 weeks from yesterday. He will see me in the office in the near future. LAURA/DEVAN Voice ID: [id number] Report ID: [id number]
== END 2019-09-20 12:42 | disposition home or self-care (01) | DRG 187 ==
LOC: ER 07:27 → ERHOLD 10:27 → 4TH 12:59
PROVIDERS: ADMIT Family Medicine; ATTEND Family Medicine
PROC: 0W993ZZ Drainage of Right Pleural Cavity, Percutaneous Approach (ICD-10-PCS; principal; 2019-09-19)
DX: J90 Pleural effusion, not elsewhere classified (principal); C18.9 Malignant neoplasm of colon, unspecified; C78.6 Secondary malignant neoplasm of retroperitoneum and peritoneum; I48.91 Unspecified atrial fibrillation; I10 Essential (primary) hypertension; M10.9 Gout, unspecified; N40.0 Benign prostatic hyperplasia without lower urinary tract symptoms; E11.9 Type 2 diabetes mellitus without complications
CPT/HCPCS: 32555; 36415; 71045; 71275; 74177; 80048; 80053; 80076; 81003; 82947; 83615; 83735; 83880; 84443; 84484; 85025; 85610; 88108; 88305; 89050; 93005; 93306; 93970; 94640; 94760; 96374; 96375; 99285; J1160; J1650; J1815; J1940; Q9967

== ENCOUNTER 2019-09-27 07:51 | Emergency (ER) | payer OTHER ==
--- OUTSIDE RECORDS SUMMARY | 2019-09-27 07:54 | XMS REPORT ---
:1960 [facility] Address [address] [place] [address] Care Team Providers Name Role Phone MARLYS [...] for FINAL REPORT PATIENT ID: Exam:->SOB shortness [id number] CHEST PA AND of breath LATERAL COMPARISON [...] MDReport Verified Date/Time: 07/16/2019 14:00:37 Reading Location: [address] Radiology Reading Room , CHEST, WITH IV 2019-07-02 13:11:00 Reason for FINAL REPORT PATIENT ID: CONTRAST Exam:->C18.[id number] of the chest, abdomen and pelvis, [...] MDReport Verified Date/Time: 07/02/2019 13:11:30 Reading Location: [facility] C013X [facility] Consult Reading Room , ABDOMEN 2019-07-02 13:11:00 Reason for FINAL REPORT PATIENT ID: Exam:->C18.[id number] of the chest, abdomen and pelvis, [...] MDReport Verified Date/Time: 07/02/2019 13:11:30 Reading Location: [facility] C013X [facility] Consult Reading Room -CREATININE 2019-07-02 07:46:00 Test Item Value Reference Range Comments POC-CREATININE (ZACHARY) (test 0.7 mg/dL 0.6-1.3 TESTED AT [facility] 7200 dxaf=7410) [facility] [address] POC-EGFR (ZACHARY) (test 140 mL/min/1.73M2 flvb=1112) CT, [id number] 09:11:00FINAL REPORT EXAM: CT Chest , Abdomen [...] 09:11:14 09 :11 AMCT, CHEST, WITH IV [id number] 09:11:00FINAL REPORT EXAM: CT Chest, Abdomen and [...] MD on 09:11 AMCT, CHEST, WITH IV [id number] 15:06:00FINAL REPORT CT CHEST, ABDOMEN, AND PELVIS [...] 15:06:57 CT, ABDOMEN, WITHOUT / WITH IV [id number] 15:06: 00FINAL REPORT CT CHEST, ABDOMEN, AND [...] Time: 12/25/2018 15:06:57 CT, PELVIS, WITH IV [id number] 15:06:00FINAL REPORT CT CHEST, ABDOMEN, AND PELVIS [...] attention on subsequent follow-ups. Signed: Og Soriano [facility] Verified Date/ Time: 12/25/2018 15:06:57 [id number] 08:55:00 Test Item Value Reference Range Comments POC-CREATININE (BEAKER) 0.7 mg/dL 0.6-1.3 TESTED AT [facility] 7200 (test dypi=3892) [facility] [address] POC-EGFR (BEAKER) (test 140 mL/min/1.73M2 qvju=2937) TISSUE [id number] 13:08:00Surgical Pathology Report Case: [id number] Authorizing Provider: Jessi Turcios MD Collected: 07/17/2018 0004 Ordering Location: [address] Received: 07/17/2018 1607 Service Pathologist: Allen [...] developed and its performance characteristics determined by [facility], Pathology Laboratory. It has not been [...] qualified to perform high complexity clinical laboratory testing.[id number] x 4Addendum electronically signed by Star Trejo MD on 07/20/2018 at 10:07 AMPART A OMENTAL BIOPSY:MODERATELY DIFFERENTIATED ADENOCARCINOMA.SEE DIAGNOSTIC COMMENT. Signing Pathologist Direct Phone Line: [phone] signed by Allen Velazquez MD on 07/19/2018 [...] and imaging studies is required for complete interpretation.[id number], 33432, [id number] givenOmentum The specimen is received in a formalin-filled container and labeledwith the patient's information labeled "omentum" and consists of four off white core biopsies ranging from 0.2 to 0.4 cm, submitted entirely A1.CG/pl PERFORMED.The following special studies were performed on this case and the interpretation is incorporated in the diagnostic report above:BLOCK A1- CK7,CK20, CDX2, TTF1, PSA, AZ92Fje immunohistochemistry test was developed and its performance characteristics determined by [facility], Pathology Laboratory. It has not been [...] to perform high complexity clinical laboratory testing.POCT-GLUCOSE [id number] 12:55:00 Test Item Value Reference Range Comments POC-GLUCOSE METER (BEAKER) 115 mg/dL 70-110 TESTED AT [address] (test eaml=1836) [facility] [address] POCT-GLUCOSE [id number] 08:52:00 Test Item Value Reference Range Comments POC-GLUCOSE METER (BEAKER) 137 mg/dL 70-110 TESTED AT [facility] [address] [facility] (test rtjt=4034) [facility] [address] CARCINOEMBRYONIC ANTIGEN (CEA)2018-09-13 07:11:00 Test Item Value Reference Range Comments CARCINOEMBRYONIC ANTIGEN (BEAKER) (test 1302.5 ng/mL 0.0-5.0 nwkp=771) [id number] 07:04:00 Test Item Value Reference Range Comments MAGNESIUM (BEAKER) (test jadu=674) 1.7 mg/dL 1.6-2.6 BASIC METABOLIC [id number] 07:04:00 Test Item Value Reference Range Comments SODIUM (BEAKER) (test 139 meq/L 136-145 zvbt=756) POTASSIUM (BEAKER) (test 3.5 meq/L 3.5-5.1 jfis=002) CHLORIDE (BEAKER) (test 105 meq/L 98-107 xqpd=275) CO2 (BEAKER) (test 26 meq/L 22-29 zses=139) BLOOD UREA NITROGEN 10 mg/dL 7-21 (BEAKER) (test ywku=579) CREATININE (BEAKER) (test 0.77 mg/dL 0.57-1.25 gcln=120) GLUCOSE RANDOM (BEAKER) 135 mg/dL 70-105 (test hohj=811) CALCIUM (BEAKER) (test 8.9 mg/dL 8.4-10.2 srdw=763) EGFR (BEAKER) (test 126 mL/min/1.73 sq m ESTIMATED GFR IS NOT ucnb=7203) ACCURATE CREATININE CLEARANCE IN PREDICTING GLOMERULAR FILTRATION RATE. ESTIMATED GFR IS NOT APPLICABLE FOR DIALYSIS PATIENTS. HEPATIC FUNCTION [id number] 07:04:00 Test Item Value Reference Range Comments TOTAL PROTEIN (BEAKER) (test brfn=710) 7.4 gm/dL 6.0-8.3 ALBUMIN (BEAKER) (test wktx=4504) 3.9 g/dL 3.5-5.0 BILIRUBIN TOTAL (BEAKER) (test crtu=481) 0.6 mg/dL 0.2-1.2 BILIRUBIN DIRECT (BEAKER) (test fvnj=571) 0.3 mg/dL 0.1-0.5 ALKALINE PHOSPHATASE (BEAKER) (test ccgy=305) 63 U/L 40-150 AST (SGOT) (BEAKER) (test pivy=077) 23 U/L 5-34 ALT (SGPT) (BEAKER) (test edul=923) 37 U/L 6-55 CBC W/PLT COUNT & AUTO [id number] 06:29:00 Test Item Value Reference Range Comments WHITE BLOOD CELL COUNT (BEAKER) (test oxzt=263) 9.8 K/ L 3.5-10.5 RED BLOOD CELL COUNT (BEAKER) (test irpv=010) 4.61 M/ L 4.63-6.08 HEMOGLOBIN (BEAKER) (test puar=120) 12.9 GM/DL 13.7-17.5 HEMATOCRIT (BEAKER) (test hfhe=097) 41.0 % 40.1-51.0 MEAN CORPUSCULAR VOLUME (BEAKER) (test cspy=796) 88.9 fL 79.0-92.2 MEAN CORPUSCULAR HEMOGLOBIN (BEAKER) (test 28.0 pg 25.7-32.2 chkb=145) MEAN CORPUSCULAR HEMOGLOBIN CONC (BEAKER) (test 31.5 GM/DL 32.3-36.5 bjrm=460) RED CELL DISTRIBUTION WIDTH (BEAKER) (test 13.0 % 11.6-14.4 kvwv=361) PLATELET COUNT (BEAKER) (test hrnd=927) 285 K/CU MM 150-450 MEAN PLATELET VOLUME (BEAKER) (test avaq=573) 11.3 fL 9.4-12.4 NUCLEATED RED BLOOD CELLS (BEAKER) (test 0 /100 WBC 0-0 pzux=941) NEUTROPHILS RELATIVE PERCENT (BEAKER) (test 69 % zdvk=589) LYMPHOCYTES RELATIVE PERCENT (BEAKER) (test 18 % frmk=840) MONOCYTES RELATIVE PERCENT (BEAKER) (test 11 % wueu=079) EOSINOPHILS RELATIVE PERCENT (BEAKER) (test 2 % onpa=741) BASOPHILS RELATIVE PERCENT (BEAKER) (test 1 % ocqw=506) NEUTROPHILS ABSOLUTE COUNT (BEAKER) (test 6.71 K/ L 1.78-5.38 tjyk=235) LYMPHOCYTES ABSOLUTE COUNT (BEAKER) (test 1.72 K/ L 1.32-3.57 yejn=923) MONOCYTES ABSOLUTE COUNT (BEAKER) (test 1.10 K/ L 0.30-0.82 ldye=743) EOSINOPHILS ABSOLUTE COUNT (BEAKER) (test 0.17 K/ L 0.04-0.54 tbpa=771) BASOPHILS ABSOLUTE COUNT (BEAKER) (test 0.06 K/ L 0.01-0.08 litg=213) IMMATURE GRANULOCYTES-RELATIVE PERCENT (BEAKER) 0 % 0-1 (test hixr=2783) POCT-GLUCOSE [id number] 01:02:00 Test Item Value Reference Range Comments POC-GLUCOSE METER (BEAKER) 130 mg/dL 70-110 TESTED AT [address] (test smke=0303) [facility] [address] POCT-GLUCOSE [id number] 17:48:00 Test Item Value Reference Range Comments POC-GLUCOSE METER (BEAKER) 119 mg/dL 70-110 TESTED AT [address] (test inin=6567) [facility] [address] POCT-GLUCOSE [id number] 12:27:00 Test Item Value Reference Range Comments POC-GLUCOSE METER (BEAKER) 154 mg/dL 70-110 TESTED AT [address] (test nsey=9099) [facility] [address] POCT-GLUCOSE [id number] 07:44:00 Test Item Value Reference Range Comments POC-GLUCOSE METER (BEAKER) 243 mg/dL 70-110 TESTED AT [address] (test ybwz=6676) [facility] [address] [id number] 06:49:00 Test Item Value Reference Range Comments MAGNESIUM (BEAKER) (test sulz=629) 1.8 mg/dL 1.6-2.6 BASIC METABOLIC [id number] 06:49:00 Test Item Value Reference Range Comments SODIUM (BEAKER) (test 138 meq/L 136-145 tndr=164) POTASSIUM (BEAKER) (test 3.3 meq/L 3.5-5.1 vvbw=612) CHLORIDE (BEAKER) (test 103 meq/L 98-107 jcgj=304) CO2 (BEAKER) (test 27 meq/L 22-29 dgjg=727) BLOOD UREA NITROGEN 18 mg/dL 7-21 (BEAKER) (test zsih=268) CREATININE (BEAKER) (test 1.08 mg/dL 0.57-1.25 epht=331) GLUCOSE RANDOM (BEAKER) 139 mg/dL 70-105 (test trll=828) CALCIUM (BEAKER) (test 8.6 mg/dL 8.4-10.2 kwqc=203) EGFR (BEAKER) (test 85 mL/min/1.73 sq m ESTIMATED GFR IS NOT svcs=9428) ACCURATE CREATININE CLEARANCE IN PREDICTING GLOMERULAR FILTRATION RATE. ESTIMATED GFR IS NOT APPLICABLE FOR DIALYSIS PATIENTS. CBC W/PLT COUNT & AUTO [id number] 06:29:00 Test Item Value Reference Range Comments WHITE BLOOD CELL COUNT (BEAKER) (test fkaf=468) 9.6 K/ L 3.5-10.5 RED BLOOD CELL COUNT (BEAKER) (test odex=308) 4.04 M/ L 4.63-6.08 HEMOGLOBIN (BEAKER) (test hxvn=831) 11.5 GM/DL 13.7-17.5 HEMATOCRIT (BEAKER) (test tsqe=202) 36.5 % 40.1-51.0 MEAN CORPUSCULAR VOLUME (BEAKER) (test jlui=319) 90.3 fL 79.0-92.2 MEAN CORPUSCULAR HEMOGLOBIN (BEAKER) (test 28.5 pg 25.7-32.2 kxjo=795) MEAN CORPUSCULAR HEMOGLOBIN CONC (BEAKER) (test 31.5 GM/DL 32.3-36.5 orlh=224) RED CELL DISTRIBUTION WIDTH (BEAKER) (test 13.1 % 11.6-14.4 cbzv=269) PLATELET COUNT (BEAKER) (test yjgt=349) 238 K/CU MM 150-450 MEAN PLATELET VOLUME (BEAKER) (test sbie=256) 11.3 fL 9.4-12.4 NUCLEATED RED BLOOD CELLS (BEAKER) (test 0 /100 WBC 0-0 eqgh=159) NEUTROPHILS RELATIVE PERCENT (BEAKER) (test 71 % drjh=914) LYMPHOCYTES RELATIVE PERCENT (BEAKER) (test 15 % epcd=446) MONOCYTES RELATIVE PERCENT (BEAKER) (test 12 % zmoj=655) EOSINOPHILS RELATIVE PERCENT (BEAKER) (test 2 % wosr=046) BASOPHILS RELATIVE PERCENT (BEAKER) (test 1 % fmec=308) NEUTROPHILS ABSOLUTE COUNT (BEAKER) (test 6.74 K/ L 1.78-5.38 wnhh=316) LYMPHOCYTES ABSOLUTE COUNT (BEAKER) (test 1.42 K/ L 1.32-3.57 rdww=948) MONOCYTES ABSOLUTE COUNT (BEAKER) (test 1.17 K/ L 0.30-0.82 vvmu=869) EOSINOPHILS ABSOLUTE COUNT (BEAKER) (test 0.14 K/ L 0.04-0.54 kfge=444) BASOPHILS ABSOLUTE COUNT (BEAKER) (test 0.06 K/ L 0.01-0.08 fyxb=528) IMMATURE GRANULOCYTES-RELATIVE PERCENT (BEAKER) 0 % 0-1 (test ajdg=0785) POCT-GLUCOSE [id number] 00:36:00 Test Item Value Reference Range Comments POC-GLUCOSE METER (BEAKER) 141 mg/dL 70-110 TESTED AT [address] (test vybh=4028) [place] [address] [place], ATOMIC PHYSICS PROFESSOR IN OR/30 MINUTE [id number] 19:40:00Reason for exam:-> DURING PROCEDUREBRONCHFINAL REPORT Fluoroscopy 5 views intraoperative 09/11/2018 7:39 PM CLINICAL HISTORY: Instrument localization COMPARISON: None available IMPRESSION: Please correlate imaging report findings with the procedure note prepared by Dr. Cordova, as an intra-procedure imaging consultation was not requested. Reported fluoroscopy time: 525.3 seconds. Signed : Chau Gasca Verified Date/Time: 09/11/2018 19:40:28 Reading Location: [facility] Radiology Reading Room POCT-GLUCOSE [id number] 18:32: 00 Test Item Value Reference Range Comments POC-GLUCOSE METER (BEAKER) 116 mg/dL 70-110 TESTED AT [address] (test ctyc=1647) [place] [address] POCT-GLUCOSE [id number] 12:08:00 Test Item Value Reference Range Comments POC-GLUCOSE METER (BEAKER) 156 mg/dL 70-110 TESTED AT [address] (test uule=4666) [place] [address] [id number] 09:06:00 Test Item Value Reference Range Comments MAGNESIUM (BEAKER) (test fflb=431) 1.9 mg/dL 1.6-2.6 [id number] 09:06:00 Test Item Value Reference Range Comments PHOSPHORUS (BEAKER) (test twmf=453) 3.8 mg/dL 2.3-4.7 BASIC METABOLIC [id number] 06:49:00 Test Item Value Reference Range Comments SODIUM (BEAKER) (test 139 meq/L 136-145 ndka=985) POTASSIUM (BEAKER) (test 3.0 meq/L 3.5-5.1 awnk=666) CHLORIDE (BEAKER) (test 100 meq/L 98-107 xksb=377) CO2 (BEAKER) (test 28 meq/L 22-29 kbnt=937) BLOOD UREA NITROGEN 13 mg/dL 7-21 (BEAKER) (test qwcu=191) CREATININE (BEAKER) (test 0.83 mg/dL 0.57-1.25 zmpz=296) GLUCOSE RANDOM (BEAKER) 135 mg/dL 70-105 (test cyto=612) CALCIUM (BEAKER) (test 9.2 mg/dL 8.4-10.2 cfib=173) EGFR (BEAKER) (test 116 mL/min/1.73 sq m ESTIMATED GFR IS NOT jqob=7326) ACCURATE CREATININE CLEARANCE IN PREDICTING GLOMERULAR FILTRATION RATE. ESTIMATED GFR IS NOT APPLICABLE FOR DIALYSIS PATIENTS. POCT-GLUCOSE [id number] 06:36:00 Test Item Value Reference Range Comments POC-GLUCOSE METER (BEAKER) 161 mg/dL 70-110 TESTED AT [facility] [address] [facility] (test tfjs=2717) [facility] [address] CBC W/PLT COUNT & AUTO [id number] 06:28:00 Test Item Value Reference Range Comments WHITE BLOOD CELL COUNT (BEAKER) (test kmkm=563) 10.7 K/ L 3.5-10.5 RED BLOOD CELL COUNT (BEAKER) (test ymlb=344) 4.72 M/ L 4.63-6.08 HEMOGLOBIN (BEAKER) (test bmgq=570) 13.7 GM/DL 13.7-17.5 HEMATOCRIT (BEAKER) (test ehzt=890) 42.6 % 40.1-51.0 MEAN CORPUSCULAR VOLUME (BEAKER) (test kqtx=836) 90.3 fL 79.0-92.2 MEAN CORPUSCULAR HEMOGLOBIN (BEAKER) (test 29.0 pg 25.7-32.2 vwaq=428) MEAN CORPUSCULAR HEMOGLOBIN CONC (BEAKER) (test 32.2 GM/DL 32.3-36.5 shni=621) RED CELL DISTRIBUTION WIDTH (BEAKER) (test 12.9 % 11.6-14.4 jbfy=947) PLATELET COUNT (BEAKER) (test mdcg=973) 292 K/CU MM 150-450 MEAN PLATELET VOLUME (BEAKER) (test edpw=704) 11.3 fL 9.4-12.4 NUCLEATED RED BLOOD CELLS (BEAKER) (test 0 /100 WBC 0-0 coui=526) NEUTROPHILS RELATIVE PERCENT (BEAKER) (test 75 % hnxp=103) LYMPHOCYTES RELATIVE PERCENT (BEAKER) (test 13 % mojl=450) MONOCYTES RELATIVE PERCENT (BEAKER) (test 11 % xsrj=830) EOSINOPHILS RELATIVE PERCENT (BEAKER) (test 0 % ofrg=985) BASOPHILS RELATIVE PERCENT (BEAKER) (test 0 % hidj=962) NEUTROPHILS ABSOLUTE COUNT (BEAKER) (test 7.97 K/ L 1.78-5.38 lgsq=983) LYMPHOCYTES ABSOLUTE COUNT (BEAKER) (test 1.41 K/ L 1.32-3.57 mmud=096) MONOCYTES ABSOLUTE COUNT (BEAKER) (test 1.18 K/ L 0.30-0.82 dvle=945) EOSINOPHILS ABSOLUTE COUNT (BEAKER) (test 0.04 K/ L 0.04-0.54 jzqp=762) BASOPHILS ABSOLUTE COUNT (BEAKER) (test 0.03 K/ L 0.01-0.08 lpwd=080) IMMATURE GRANULOCYTES-RELATIVE PERCENT (BEAKER) 1 % 0-1 (test jjxx=2720) POCT-GLUCOSE [id number] 01:34:00 Test Item Value Reference Range Comments POC-GLUCOSE METER (BEAKER) 135 mg/dL 70-110 TESTED AT [address] (test hkpj=9197) [place] [id number] POCT-GLUCOSE [id number] 09:00:00 Test Item Value Reference Range Comments POC-GLUCOSE METER (BEAKER) 195 mg/dL 70-110 TESTED AT [address] (test oemf=1661) [place] [id number] BLOOD [id number] 06:00:00 Test Item Value Reference Range Comments CULTURE (BEAKER) (test ljrg=4042) No growth in 5 days BLOOD [id number] 06:00:00 Test Item Value Reference Range Comments CULTURE (BEAKER) (test rwws=3492) No growth in 5 days BASIC METABOLIC [id number] 05:43:00 Test Item Value Reference Range Comments SODIUM (BEAKER) (test 141 meq/L 136-145 zowo=288) POTASSIUM (BEAKER) (test 3.6 meq/L 3.5-5.1 itpu=268) CHLORIDE (BEAKER) (test 106 meq/L 98-107 ibdo=130) CO2 (BEAKER) (test 25 meq/L 22-29 mrfq=215) BLOOD UREA NITROGEN 9 mg/dL 7-21 (BEAKER) (test agoo=272) CREATININE (BEAKER) (test 0.80 mg/dL 0.57-1.25 efdg=412) GLUCOSE RANDOM (BEAKER) 119 mg/dL 70-105 (test gjug=975) CALCIUM (BEAKER) (test 8.9 mg/dL 8.4-10.2 yikg=462) EGFR (BEAKER) (test 121 mL/min/1.73 sq m ESTIMATED GFR IS NOT soqk=2648) ACCURATE CREATININE CLEARANCE IN PREDICTING GLOMERULAR FILTRATION RATE. ESTIMATED GFR IS NOT APPLICABLE FOR DIALYSIS PATIENTS. CBC W/PLT COUNT & AUTO [id number] 05:01:00 Test Item Value Reference Range Comments WHITE BLOOD CELL COUNT (BEAKER) (test jxqw=784) 7.2 K/ L 3.5-10.5 RED BLOOD CELL COUNT (BEAKER) (test cxlh=381) 4.62 M/ L 4.63-6.08 HEMOGLOBIN (BEAKER) (test yynl=657) 13.4 GM/DL 13.7-17.5 HEMATOCRIT (BEAKER) (test gohi=771) 43.7 % 40.1-51.0 MEAN CORPUSCULAR VOLUME (BEAKER) (test nxbi=716) 94.6 fL 79.0-92.2 MEAN CORPUSCULAR HEMOGLOBIN (BEAKER) (test 29.0 pg 25.7-32.2 yhra=882) MEAN CORPUSCULAR HEMOGLOBIN CONC (BEAKER) (test 30.7 GM/DL 32.3-36.5 mvqg=703) RED CELL DISTRIBUTION WIDTH (BEAKER) (test 13.4 % 11.6-14.4 ukvt=490) PLATELET COUNT (BEAKER) (test sbso=305) 224 K/CU MM 150-450 MEAN PLATELET VOLUME (BEAKER) (test wiwk=199) 11.5 fL 9.4-12.4 NUCLEATED RED BLOOD CELLS (BEAKER) (test 0 /100 WBC 0-0 ybvb=239) NEUTROPHILS RELATIVE PERCENT (BEAKER) (test 66 % wbpp=848) LYMPHOCYTES RELATIVE PERCENT (BEAKER) (test 19 % onmc=794) MONOCYTES RELATIVE PERCENT (BEAKER) (test 10 % sulf=306) EOSINOPHILS RELATIVE PERCENT (BEAKER) (test 4 % abtr=900) BASOPHILS RELATIVE PERCENT (BEAKER) (test 1 % ciid=456) NEUTROPHILS ABSOLUTE COUNT (BEAKER) (test 4.80 K/ L 1.78-5.38 bfwd=984) LYMPHOCYTES ABSOLUTE COUNT (BEAKER) (test 1.39 K/ L 1.32-3.57 kvmq=113) MONOCYTES ABSOLUTE COUNT (BEAKER) (test 0.72 K/ L 0.30-0.82 kxfw=476) EOSINOPHILS ABSOLUTE COUNT (BEAKER) (test 0.25 K/ L 0.04-0.54 dmqj=608) BASOPHILS ABSOLUTE COUNT (BEAKER) (test 0.05 K/ L 0.01-0.08 gldx=028) IMMATURE GRANULOCYTES-RELATIVE PERCENT (BEAKER) 0 % 0-1 (test rcbr=5651) POCT-GLUCOSE [id number] 22:22:00 Test Item Value Reference Range Comments POC-GLUCOSE METER (BEAKER) 171 mg/dL 70-110 TESTED AT [facility] [address] [facility] (test nwdt=3068) [facility] [address] ANG, TUNNEL CATH CENTRAL INS W/PORT [id number] 18:25:00Reason for exam:-> need for chemotherapy.FINAL REPORT Right internal jugular chest port insertion History: Patient requires access for chemotherapy administration. Modality: Sonography andfluoroscopy. Sedation: Versed 1.5 mg and fentanyl 50 mcg given intravenously for conscious sedation. Vital signs were monitored throughout the procedure by a nurse, and remained stable. Physician intra-service time was 30 minutes. Hadoop Developer: Singh Escamilla MD Assembly Hand: Noé. Approach: Right internal jugular vein Estimated [...] needle into the right atrium. A 4 Romansh micropuncture sheath was placed. A subcutaneous tunnel [...] Escamilla Verified Date/Time: 07/19 18:25:29 Reading Location: [place] [address] Angio Body Reading Room POCT- GLUCOSE [id number] 16:53:00 Test Item Value Reference Range Comments POC-GLUCOSE METER (BEAKER) 124 mg/dL 70-110 TESTED AT [facility] [address] [place] [address] (test azrd=9464) [facility] [address] TISSUE [id number] 16:29:00Surgical Pathology Report Case: [id number] Authorizing Provider: Julius Umanzor MD Collected: 07/18/2018 1502 Ordering Location: [address] Received: 07/19/2018 0751 Service Pathologist: Charo Brar MD Specimen: Large Intestine, Colon - Left/Descending , mass LEFT/DESCENDING COLON, BIOPSY: - INVASIVE MODERATELY DIFFERENTIATED ADENOCARCINOMA, SITUATED PREDOMINANTLY BENEATH THE MUSCULARIS MUCOSA, WITH FOCAL NECROSISMO/pl Signing Pathologist Direct Phone Line: [phone] signed by Charo Brar MD on 07/19/2018 at 4:29 [id number] u9Puprwalg of colon, colonic mass Left descending colon [...] apoptosis. Other significant features are not noted.POCT-GLUCOSE [id number] 12:32:00 Test Item Value Reference Range Comments POC-GLUCOSE METER (BEAKER) 116 mg/dL 70-110 TESTED AT [address] (test pqse=0160) [place] [address] POCT-GLUCOSE [id number] 09:22:00 Test Item Value Reference Range Comments POC-GLUCOSE METER (BEAKER) 130 mg/dL 70-110 TESTED AT [address] (test jexm=3473) [place] [address] BASIC METABOLIC [id number] 06:03:00 Test Item Value Reference Range Comments SODIUM (BEAKER) (test 138 meq/L 136-145 yeei=815) POTASSIUM (BEAKER) (test 3.3 meq/L 3.5-5.1 kkvi=186) CHLORIDE (BEAKER) (test 104 meq/L 98-107 wqsh=470) CO2 (BEAKER) (test 23 meq/L 22-29 buhy=411) BLOOD UREA NITROGEN 6 mg/dL 7-21 (BEAKER) (test tqmg=569) CREATININE (BEAKER) (test 0.76 mg/dL 0.57-1.25 zwwa=640) GLUCOSE RANDOM (BEAKER) 122 mg/dL 70-105 (test abut=177) CALCIUM (BEAKER) (test 9.2 mg/dL 8.4-10.2 tqcq=117) EGFR (BEAKER) (test 128 mL/min/1.73 sq m ESTIMATED GFR IS NOT srre=4555) ACCURATE CREATININE CLEARANCE IN PREDICTING GLOMERULAR FILTRATION RATE. ESTIMATED GFR IS NOT APPLICABLE FOR DIALYSIS PATIENTS. PROTHROMBIN TIME/[id number] 05:34:00 Test Item Value Reference Range Comments PROTIME (BEAKER) (test jrzm=874) 14.2 seconds 11.7-14.7 INR (BEAKER) (test xjum=343) 1.1 <=5.9 RECOMMENDED COUMADIN/WARFARIN INR THERAPY RANGESSTANDARD DOSE: 2.0 - 3.0 Includes: PROPHYLAXIS forvenous thrombosis, systemic embolization; TREATMENT for venous thrombosis and/or pulmonary embolus.HIGH RISK: Target INR is 2.5-3.5 for patients with mechanical heart valves.CBC W/PLT COUNT & AUTO [id number] 05:29:00 Test Item Value Reference Range Comments WHITE BLOOD CELL COUNT (BEAKER) (test fpxy=610) 9.1 K/ L 3.5-10.5 RED BLOOD CELL COUNT (BEAKER) (test mvff=006) 4.61 M/ L 4.63-6.08 HEMOGLOBIN (BEAKER) (test sfrf=799) 13.5 GM/DL 13.7-17.5 HEMATOCRIT (BEAKER) (test lacf=667) 42.6 % 40.1-51.0 MEAN CORPUSCULAR VOLUME (BEAKER) (test kmnh=203) 92.4 fL 79.0-92.2 MEAN CORPUSCULAR HEMOGLOBIN (BEAKER) (test 29.3 pg 25.7-32.2 htkt=356) MEAN CORPUSCULAR HEMOGLOBIN CONC (BEAKER) (test 31.7 GM/DL 32.3-36.5 pghr=330) RED CELL DISTRIBUTION WIDTH (BEAKER) (test 13.3 % 11.6-14.4 dcfj=342) PLATELET COUNT (BEAKER) (test zcwv=267) 235 K/CU MM 150-450 MEAN PLATELET VOLUME (BEAKER) (test dpxq=889) 11.5 fL 9.4-12.4 NUCLEATED RED BLOOD CELLS (BEAKER) (test 0 /100 WBC 0-0 hbcc=660) NEUTROPHILS RELATIVE PERCENT (BEAKER) (test 71 % lgvs=660) LYMPHOCYTES RELATIVE PERCENT (BEAKER) (test 14 % brxo=557) MONOCYTES RELATIVE PERCENT (BEAKER) (test 11 % qlvx=616) EOSINOPHILS RELATIVE PERCENT (BEAKER) (test 2 % geoo=967) BASOPHILS RELATIVE PERCENT (BEAKER) (test 1 % ceag=755) NEUTROPHILS ABSOLUTE COUNT (BEAKER) (test 6.48 K/ L 1.78-5.38 xnbl=358) LYMPHOCYTES ABSOLUTE COUNT (BEAKER) (test 1.31 K/ L 1.32-3.57 jntz=673) MONOCYTES ABSOLUTE COUNT (BEAKER) (test 0.98 K/ L 0.30-0.82 cssh=159) EOSINOPHILS ABSOLUTE COUNT (BEAKER) (test 0.20 K/ L 0.04-0.54 sjhg=185) BASOPHILS ABSOLUTE COUNT (BEAKER) (test 0.05 K/ L 0.01-0.08 ojci=278) IMMATURE GRANULOCYTES-RELATIVE PERCENT (BEAKER) 1 % 0-1 (test lfeb=4571) POCT-GLUCOSE [id number] 23:21:00 Test Item Value Reference Range Comments POC-GLUCOSE METER (BEAKER) 127 mg/dL 70-110 TESTED AT [address] (test kxow=7034) [place] [id number] POCT-GLUCOSE [id number] 17:29:00 Test Item Value Reference Range Comments POC-GLUCOSE METER (BEAKER) 116 mg/dL 70-110 TESTED AT [address] (test udbr=2949) [place] [id number] POCT-GLUCOSE [id number] 15:41:00 Test Item Value Reference Range Comments POC-GLUCOSE METER (BEAKER) 122 mg/dL 70-110 TESTED AT [address] (test vmla=1190) [place] [id number] 15:40:00Medical Cytology Report Case: [id number] Authorizing Provider: Jessi Turcios MD Collected: 07/17/2018 1435 Ordering Location: [address] Received: 07/18/2018 0837 Service Pathologist: Alvin Arroyo MD Specimen: Peritoneal Fluid PERITONEAL FLUID (CYTOSPINS): - SUSPICIOUS FOR MALIGNANCY Signing Pathologist Direct Phone Line: [phone] signed by Alvin Arroyo MD on 07/18/2018 at 3:40 PMThere are a few atypical clusters that are suspicious for malignancy in a background of reactive mesothelial cells and chronic inflammation.[id number]; colon mass and omental nodules presents for CT-guided core biopsy of omentalnodulesPERITONEAL FLUIDPrepared 4 cytospins from 4 ml yellow blood-tinged fluidCollected: [id number]: [id number] L. [facility], Department of [facility]ology, [address] [place] [id number], [facility], [facility], [address] [place] [id number], [facility], Department of [facility]ology, [address] [place] [id number], KCMG-GLUCOSE [id number] 11:53:00 Test Item Value Reference Range Comments POC-GLUCOSE METER (BEAKER) 111 mg/dL 70-110 TESTED AT [address] (test gfvk=4410) [place] [address] POCT-GLUCOSE [id number] 06:48:00 Test Item Value Reference Range Comments POC-GLUCOSE METER (BEAKER) 124 mg/dL 70-110 TESTED AT [address] (test fztp=9706) [place] [address] POCT-GLUCOSE [id number] 23:34:00 Test Item Value Reference Range Comments POC-GLUCOSE METER (BEAKER) 133 mg/dL 70-110 TESTED AT [address] (test zkhx=7099) [place] [address] BODY FLUID CELL COUNT WITH [id number] 18:38:00 Test Item Value Reference Range Comments APPEARANCE FLUID (BEAKER) (test qtzy=841) Slightly Bloody Clear COLOR FLUID (BEAKER) (test nhgg=747) Yarelis Colorless, Straw RBC FLUID (BEAKER) (test bhxq=572) 9500 /cu mm <=1 ADJUSTED WBC FLUID (BEAKER) (test 1043 /cu mm <=5 oveb=0472) LINING CELLS (BEAKER) (test taas=9258) 42 /cu mm <=1 NEUTROPHILS FLUID (BEAKER) (test rzbq=6885) 17 % LYMPHS FLUID (BEAKER) (test hpwt=641) 28 % MONO/MACROPHAGE FLUID (BEAKER) (test 55 % xdqz=768) EOSINOPHILS FLUID (BEAKER) (test emsl=274) 0 % BASO FLUID (BEAKER) (test lhje=901) 0 % CONTAINER BODY FLUID (BEAKER) (test EDTA Tube uips=7100) POCT-GLUCOSE [id number] 17:54:00 Test Item Value Reference Range Comments POC-GLUCOSE METER (BEAKER) 145 mg/dL 70-110 TESTED AT [address] (test wuka=6544) [facility] [address] CT, BIOPSY, [id number] 16:57:00Reason for exam:->Need biopsy of omentum for [...] MDReport Verified Date/Time: 2017 16:57:37 Reading Location: [facility] C013Y CT Body Reading Room ALBUMIN , BODY [id number] 16:12:00 Test Item Value Reference Range Comments ALBUMIN FLUID (BEAKER) (test vkta=858) 2.9 gm/dL Reference Range: No Normals Assay performance has not been validated for this type of specimen.PROTEIN, BODY [id number] 16:12:00 Test Item Value Reference Range Comments PROTEIN FLUID (BEAKER) (test mnga=357) 5.0 g/dL Absence of reference range indicates that normals have not been defined.Assay performance has not been validated for this type of specimen.[id number] 13:18:00 Test Item Value Reference Range Comments PROTIME (BEAKER) (test vmov=138) 14.6 seconds 11.7-14.7 INR (BEAKER) (test iyke=094) 1.1 <=5.9 PARTIAL THROMBOPLASTIN TIME (BEAKER) (test 27.7 seconds 22.5-36.0 hzwu=808) RECOMMENDED COUMADIN/WARFARIN INR THERAPY RANGESSTANDARD DOSE: 2.0 - 3.0 Includes: PROPHYLAXIS forvenous thrombosis, systemic embolization; TREATMENT for venous thrombosis and/or pulmonary embolus.HIGH RISK: Target INR is 2.5-3.5 for patients with mechanical heart valves.CBC W/PLT COUNT & AUTO [id number] 13:08:00 Test Item Value Reference Range Comments WHITE BLOOD CELL COUNT (BEAKER) (test nubu=668) 10.4 K/ L 3.5-10.5 RED BLOOD CELL COUNT (BEAKER) (test ufnk=116) 4.53 M/ L 4.63-6.08 HEMOGLOBIN (BEAKER) (test hrex=102) 13.1 GM/DL 13.7-17.5 HEMATOCRIT (BEAKER) (test hrqk=103) 43.3 % 40.1-51.0 MEAN CORPUSCULAR VOLUME (BEAKER) (test lbyl=384) 95.6 fL 79.0-92.2 MEAN CORPUSCULAR HEMOGLOBIN (BEAKER) (test 28.9 pg 25.7-32.2 jzsf=565) MEAN CORPUSCULAR HEMOGLOBIN CONC (BEAKER) (test 30.3 GM/DL 32.3-36.5 qihs=971) RED CELL DISTRIBUTION WIDTH (BEAKER) (test 13.5 % 11.6-14.4 amly=915) PLATELET COUNT (BEAKER) (test eqcr=179) 236 K/CU MM 150-450 MEAN PLATELET VOLUME (BEAKER) (test oayx=447) 11.4 fL 9.4-12.4 NUCLEATED RED BLOOD CELLS (BEAKER) (test 0 /100 WBC 0-0 nxdf=281) NEUTROPHILS RELATIVE PERCENT (BEAKER) (test 73 % rmwy=250) LYMPHOCYTES RELATIVE PERCENT (BEAKER) (test 15 % cbsh=271) MONOCYTES RELATIVE PERCENT (BEAKER) (test 10 % fsbv=757) EOSINOPHILS RELATIVE PERCENT (BEAKER) (test 1 % jyzp=293) BASOPHILS RELATIVE PERCENT (BEAKER) (test 1 % gxqu=918) NEUTROPHILS ABSOLUTE COUNT (BEAKER) (test 7.56 K/ L 1.78-5.38 ptcx=529) LYMPHOCYTES ABSOLUTE COUNT (BEAKER) (test 1.60 K/ L 1.32-3.57 mtsm=538) MONOCYTES ABSOLUTE COUNT (BEAKER) (test 1.01 K/ L 0.30-0.82 wvrp=611) EOSINOPHILS ABSOLUTE COUNT (BEAKER) (test 0.14 K/ L 0.04-0.54 jajn=605) BASOPHILS ABSOLUTE COUNT (BEAKER) (test 0.06 K/ L 0.01-0.08 smxj=078) IMMATURE GRANULOCYTES-RELATIVE PERCENT (BEAKER) 0 % 0-1 (test dhsk=5984) CT, [id number] 12:37:00CT abdomen pelvis with IV and PO [...] MDReport Verified Date/Time: 07/17/2018 12:37:32 Reading Location: [address] Body Reading Room CT, CHEST, WITH [id number] 12:37:00FINAL REPORT TECHNIQUE: CT of the [...] MDReport Verified Date/Time: 07/17/2018 12:37:32 Reading Location: [facility] B1 C013Y CT Body Reading Room 12 :37 PMPOCT-GLUCOSE [id number] 12:31:00 Test Item Value Reference Range Comments POC-GLUCOSE METER (ZACHARY) 188 mg/dL 70-110 TESTED AT [facility] [address] [facility] (test nyzq=3506) [facility] [address] CBC W/PLT COUNT & AUTO [id number] 12:21:00 Test Item Value Reference Range Comments WHITE BLOOD CELL COUNT (KEVINAKER) (test lrnn=297) 10.1 K/ L 3.5-10.5 RED BLOOD CELL COUNT (BEAKER) (test pkts=307) 4.41 M/ L 4.63-6.08 HEMOGLOBIN (BEAKER) (test wirb=201) 13.1 GM/DL 13.7-17.5 HEMATOCRIT (BEAKER) (test umep=342) 42.6 % 40.1-51.0 MEAN CORPUSCULAR VOLUME (BEAKER) (test cqsi=507) 96.6 fL 79.0-92.2 MEAN CORPUSCULAR HEMOGLOBIN (BEAKER) (test 29.7 pg 25.7-32.2 lmdk=038) MEAN CORPUSCULAR HEMOGLOBIN CONC (BEAKER) (test 30.8 GM/DL 32.3-36.5 fkid=981) RED CELL DISTRIBUTION WIDTH (BEAKER) (test 14.0 % 11.6-14.4 gltr=511) PLATELET COUNT (BEAKER) (test sfwd=382) 232 K/CU MM 150-450 MEAN PLATELET VOLUME (BEAKER) (test vxfy=853) 12.5 fL 9.4-12.4 NUCLEATED RED BLOOD CELLS (BEAKER) (test 0 /100 WBC 0-0 kbms=721) NEUTROPHILS RELATIVE PERCENT (BEAKER) (test 73 % xaqf=840) LYMPHOCYTES RELATIVE PERCENT (BEAKER) (test 14 % oajf=172) MONOCYTES RELATIVE PERCENT (BEAKER) (test 10 % ahfj=391) EOSINOPHILS RELATIVE PERCENT (BEAKER) (test 1 % ultm=269) BASOPHILS RELATIVE PERCENT (BEAKER) (test 1 % tupo=834) NEUTROPHILS ABSOLUTE COUNT (BEAKER) (test 7.40 K/ L 1.78-5.38 xtbd=053) LYMPHOCYTES ABSOLUTE COUNT (BEAKER) (test 1.45 K/ L 1.32-3.57 qyvq=680) MONOCYTES ABSOLUTE COUNT (BEAKER) (test 1.01 K/ L 0.30-0.82 vaba=354) EOSINOPHILS ABSOLUTE COUNT (BEAKER) (test 0.13 K/ L 0.04-0.54 focr=825) BASOPHILS ABSOLUTE COUNT (BEAKER) (test 0.07 K/ L 0.01-0.08 htbx=086) IMMATURE GRANULOCYTES-RELATIVE PERCENT (BEAKER) 0 % 0-1 (test iihb=2248) HEMOGLOBIN [id number] 10:07:00 Test Item Value Reference Range Comments HEMOGLOBIN A1C (BEAKER) (test frsu=244) 5.6 % 4.3-6.1 BASIC METABOLIC [id number] 06:33:00 Test Item Value Reference Range Comments SODIUM (BEAKER) (test 138 meq/L 136-145 adwm=486) POTASSIUM (BEAKER) (test 3.4 meq/L 3.5-5.1 duvt=097) CHLORIDE (BEAKER) (test 105 meq/L 98-107 rcmg=315) CO2 (BEAKER) (test 24 meq/L 22-29 bagx=430) BLOOD UREA NITROGEN 10 mg/dL 7-21 (BEAKER) (test ydke=214) CREATININE (BEAKER) (test 0.80 mg/dL 0.57-1.25 miol=848) GLUCOSE RANDOM (BEAKER) 122 mg/dL 70-105 (test fzle=827) CALCIUM (BEAKER) (test 8.5 mg/dL 8.4-10.2 raqo=051) EGFR (BEAKER) (test 121 mL/min/1.73 sq m ESTIMATED GFR IS NOT mdss=3784) ACCURATE CREATININE CLEARANCE IN PREDICTING GLOMERULAR FILTRATION RATE. ESTIMATED GFR IS NOT APPLICABLE FOR DIALYSIS PATIENTS. POCT-GLUCOSE [id number] 05:17:00 Test Item Value Reference Range Comments POC-GLUCOSE METER (BEAKER) 133 mg/dL 70-110 TESTED AT [address] (test rrzv=9702) [place] [address] POCT-GLUCOSE [id number] 23:45:00 Test Item Value Reference Range Comments POC-GLUCOSE METER (BEAKER) 121 mg/dL 70-110 TESTED AT [address] (test vprx=2901) [place] [id number] POCT-GLUCOSE [id number] 17:45:00 Test Item Value Reference Range Comments POC-GLUCOSE METER (BEAKER) 112 mg/dL 70-110 TESTED AT [address] (test yhvn=9729) [place] [id number] 14:30:00 Test Item Value Reference Range Comments ALBUMIN (BEAKER) (test sfjj=3390) 3.9 g/dL 3.5-5.0 POCT-GLUCOSE [id number] 12:40:00 Test Item Value Reference Range Comments POC-GLUCOSE METER (BEAKER) 110 mg/dL 70-110 TESTED AT [address] (test eiik=8062) [place] [id number] POCT-GLUCOSE [id number] 08:32:00 Test Item Value Reference Range Comments POC-GLUCOSE METER (BEAKER) 137 mg/dL 70-110 TESTED AT [address] (test jkts=4359) [place] [address] BASIC METABOLIC [id number] 06:10:00 Test Item Value Reference Range Comments SODIUM (BEAKER) (test 143 meq/L 136-145 pwch=723) POTASSIUM (BEAKER) (test 3.4 meq/L 3.5-5.1 nxcu=854) CHLORIDE (BEAKER) (test 105 meq/L 98-107 uuym=641) CO2 (BEAKER) (test 26 meq/L 22-29 vffm=896) BLOOD UREA NITROGEN 13 mg/dL 7-21 (BEAKER) (test wywv=570) CREATININE (BEAKER) (test 0.96 mg/dL 0.57-1.25 juty=562) GLUCOSE RANDOM (BEAKER) 90 mg/dL 70-105 (test kqkr=420) CALCIUM (BEAKER) (test 9.1 mg/dL 8.4-10.2 kqvl=597) EGFR (BEAKER) (test 98 mL/min/1.73 sq m ESTIMATED GFR IS NOT maok=0919) ACCURATE CREATININE CLEARANCE IN PREDICTING GLOMERULAR FILTRATION RATE. ESTIMATED GFR IS NOT APPLICABLE FOR DIALYSIS PATIENTS. POCT-GLUCOSE [id number] 00:28:00 Test Item Value Reference Range Comments POC-GLUCOSE METER (BEAKER) 108 mg/dL 70-110 TESTED AT [address] (test aafv=6362) [place] [id number] POCT-GLUCOSE [id number] 00:28:00 Test Item Value Reference Range Comments POC-GLUCOSE METER (BEAKER) 107 mg/dL 70-110 TESTED AT [address] (test qbik=3572) [place] [address] POCT-GLUCOSE [id number] 17:40:00 Test Item Value Reference Range Comments POC-GLUCOSE METER (BEAKER) 137 mg/dL 70-110 TESTED AT [address] (test dkya=9760) [place] [address] [place], ATOMIC PHYSICS PROFESSOR IN OR/30 MINUTE [id number] 14:44:00INTRA OP IMAGINGReason for exam:->BOWEL OBSTRUCTIONFINAL REPORT Intraoperative fluoroscopy. CLINICAL HISTORY: BOWEL OBSTRUCTION.FINDINGS: Seven fluoroscopically acquired images were acquired by the referring physician. An intraoperative verbal report was not requested. Fluoroscopy was not performed by the undersigned. Fluoroscopy time: 129 seconds. Seven images. Signed: Rj Angel Verified Date/Time: 14:44:01 Reading Location: [facility] C013X Ortho Consult Reading Room POCT- GLUCOSE [id number] 12:28:00 Test Item Value Reference Range Comments POC-GLUCOSE METER (BEAKER) 154 mg/dL 70-110 TESTED AT [address] (test msuk=9508) [facility] [address] CARCINOEMBRYONIC ANTIGEN (CEA)2018-07-15 11:45:00 Test Item Value Reference Range Comments CARCINOEMBRYONIC ANTIGEN (BEAKER) (test 766.0 ng/mL 0.0-5.0 xhgi=134) RAD, CHEST, 1 VIEW, NON [id number] 11:43:00Reason for exam:->pnaShould this be performed at [...] Mixon Verified Date/Time: 2017 11:43:39 Reading Location: [facility] C013Y CT Body Reading Room HEPATIC FUNCTION [id number] 09:19:00 Test Item Value Reference Range Comments TOTAL PROTEIN (BEAKER) (test xxas=448) 8.1 gm/dL 6.0-8.3 ALBUMIN (BEAKER) (test rpaz=7622) 4.4 g/dL 3.5-5.0 BILIRUBIN TOTAL (BEAKER) (test jiqr=412) 0.6 mg/dL 0.2-1.2 BILIRUBIN DIRECT (BEAKER) (test dwqo=417) 0.3 mg/dL 0.1-0.5 ALKALINE PHOSPHATASE (BEAKER) (test iyag=952) 58 U/L 40-150 AST (SGOT) (BEAKER) (test tqmc=146) 16 U/L 5-34 ALT (SGPT) (BEAKER) (test jtpf=653) 19 U/L 6-55 POCT-GLUCOSE [id number] 08:21:00 Test Item Value Reference Range Comments POC-GLUCOSE METER (BEAKER) 130 mg/dL 70-110 TESTED AT [facility] [address] [facility] (test fvgj=0172) [facility] [address] RESPIRATORY PANEL [id number] 07:29:00 Test Item Value Reference Range Comments HUMAN METAPNEUMOVIRUS (BEAKER) (test Not detected Not detected, Equivocal uknq=7183) RHINOVIRUS (BEAKER) (test zfsm=0000) Not detected Not detected, Equivocal INFLUENZA A (BEAKER) (test vtfq=9311) Not detected Not detected, Equivocal INFLUENZA A (NO SUBTYPE) (test Not detected, Equivocal leru=4731) INFLUENZA A SUBTYPE H1 (BEAKER) (test Not detected, Equivocal rrvf=4104) INFLUENZA A SUBTYPE H3 (BEAKER) (test Not detected, Equivocal eqbx=6596) INFLUENZA A SUBTYPE H1-2009 (BEAKER) Not detected, Equivocal (test yjsj=2878) INFLUENZA B (BEAKER) (test ntqy=6391) Not detected Not detected, Equivocal RESPIRATORY SYNCYTIAL VIRUS (BEAKER) Not detected Not detected, Equivocal (test idhg=2353) PARAINFLUENZA VIRUS 1 (BEAKER) (test Not detected Not detected, Equivocal tzhy=4779) PARAINFLUENZA VIRUS 2 (BEAKER) (test Not detected Not detected, Equivocal thgf=1651) PARAINFLUENZA VIRUS 3 (BEAKER) (test Not detected Not detected, Equivocal mevm=1952) PARAINFLUENZA VIRUS 4 (BEAKER) (test Not detected Not detected, Equivocal sgbn=7649) ADENOVIRUS (BEAKER) (test xggh=3157) Not detected Not detected, Equivocal CORONAVIRUS 229E (BEAKER) (test Not detected Not detected, Equivocal kmgu=6422) CORONAVIRUS HKU1 (BEAKER) (test Not detected Not detected, Equivocal lfur=8247) CORONAVIRUS NL63 (BEAKER) (test Not detected Not detected, Equivocal mned=6421) CORONAVIRUS OC43 (BEAKER) (test Not detected Not detected, Equivocal mosf=6976) BORDETELLA PERTUSSIS (BEAKER) (test Not detected Not detected, Equivocal rjqc=8938) CHLAMYDOPHILA PNEUMONIAE (BEAKER) (test Not detected Not detected, Equivocal prit=0053) MYCOPLASMA PNEUMONIAE (BEAKER) (test Not detected Not detected, Equivocal beix=5942) Other viruses and bacteria not targeted by this PCR panel cannot be excluded; therefore clinical correlation and follow up of serology, culture results, and other molecular studies is required. The results are not intended to be used as the sole means for clinical diagnosis or patient management decisions. This sample was tested at the [facility] using the AffymaxArray Respiratory Panel. It is FDA cleared and has been verified and approved by the [facility] for clinical use on nasal swab specimens. It is not FDA-cleared for use on bronchial wash/lavage samples. However, for this sample type, validation was performed and test characteristics were determined and approved, by [facility] for clinical use under the Clinical Laboratory Improvement Amendments (CLIA) of 1988 requirements. Therefore, FDA clearance isnot required. This laboratory is CLIA-certified and [employer] ([employer])-accredited to perform high complexity testing.LEGIONELLA ANTIGEN, [id number] 04:44:00 Test Item Value Reference Range Comments L. PNEUMOPHILA SEROGP 1 Negative - see Negative for L. UR AG (BEAKER) (test comment pneumophila serogroup 1 bmdh=6009) antigen, suggesting no recent or current infection with this serogroup. Legionellosis cannot be ruled out since other serogroups and species may cause disease. STREP PNEUMONIAE [id number] 04:43:00 Test Item Value Reference Range Comments STREP PNEUMONIAE ANTIGEN Presumptive negative for Presumptive negative for (BEAKER) (test pneumococcal pneumonia - pneumococcal pneumonia - bvzt=4653) see comment see commen Presumptive negative for pneumococcal pneumonia, suggesting no current or recent pneumococcal infection. Infection due to S. pneumoniae cannot be ruled out since the antigen present in the sample may be below the detection limit of the test.POCT-GLUCOSE [id number] 01:51:00 Test Item Value Reference Range Comments POC-GLUCOSE METER (BEAKER) 127 mg/dL 70-110 TESTED AT [address] (test bufr=2186) [facility] [address] BASIC METABOLIC [id number] 00:38:00 Test Item Value Reference Range Comments SODIUM (BEAKER) (test 136 meq/L 136-145 kspm=914) POTASSIUM (BEAKER) (test 3.3 meq/L 3.5-5.1 owfc=244) CHLORIDE (BEAKER) (test 101 meq/L 98-107 ypql=967) CO2 (BEAKER) (test 22 meq/L 22-29 njgb=439) BLOOD UREA NITROGEN 11 mg/dL 7-21 (BEAKER) (test vbhp=932) CREATININE (BEAKER) (test 0.85 mg/dL 0.57-1.25 ykam=963) GLUCOSE RANDOM (BEAKER) 114 mg/dL 70-105 (test icoq=981) CALCIUM (BEAKER) (test 9.3 mg/dL 8.4-10.2 hehu=987) EGFR (BEAKER) (test 113 mL/min/1.73 sq m ESTIMATED GFR IS NOT kyjq=5605) ACCURATE CREATININE CLEARANCE IN PREDICTING GLOMERULAR FILTRATION RATE. ESTIMATED GFR IS NOT APPLICABLE FOR DIALYSIS PATIENTS. RAPID INFLUENZA A&B [id number] 00:32:00 Test Item Value Reference Range Comments RAPID INFLUENZA A AG (BEAKER) (test Negative Negative, Inconclusive idql=2875) RAPID INFLUENZA B AG (BEAKER) (test Negative Negative, Inconclusive mqlu=8985) CBC W/PLT COUNT & AUTO [id number] 22:58:00 Test Item Value Reference Range Comments WHITE BLOOD CELL COUNT (BEAKER) (test oyxn=570) 10.9 K/ L 3.5-10.5 RED BLOOD CELL COUNT (BEAKER) (test pokv=098) 4.96 M/ L 4.63-6.08 HEMOGLOBIN (BEAKER) (test uudd=601) 14.5 GM/DL 13.7-17.5 HEMATOCRIT (BEAKER) (test gvfu=163) 46.1 % 40.1-51.0 MEAN CORPUSCULAR VOLUME (BEAKER) (test zwzr=990) 92.9 fL 79.0-92.2 MEAN CORPUSCULAR HEMOGLOBIN (BEAKER) (test 29.2 pg 25.7-32.2 jjhe=943) MEAN CORPUSCULAR HEMOGLOBIN CONC (BEAKER) (test 31.5 GM/DL 32.3-36.5 ldrd=210) RED CELL DISTRIBUTION WIDTH (BEAKER) (test 13.9 % 11.6-14.4 ullf=586) PLATELET COUNT (BEAKER) (test ftfr=055) 277 K/CU MM 150-450 MEAN PLATELET VOLUME (BEAKER) (test mwci=924) 11.2 fL 9.4-12.4 NUCLEATED RED BLOOD CELLS (BEAKER) (test 0 /100 WBC 0-0 lsas=510) NEUTROPHILS RELATIVE PERCENT (BEAKER) (test 81 % vrev=328) LYMPHOCYTES RELATIVE PERCENT (BEAKER) (test 11 % fesr=177) MONOCYTES RELATIVE PERCENT (BEAKER) (test 7 % popo=077) EOSINOPHILS RELATIVE PERCENT (BEAKER) (test 0 % huil=778) BASOPHILS RELATIVE PERCENT (BEAKER) (test 0 % chuj=931) NEUTROPHILS ABSOLUTE COUNT (BEAKER) (test 8.86 K/ L 1.78-5.38 tddq=257) LYMPHOCYTES ABSOLUTE COUNT (BEAKER) (test 1.21 K/ L 1.32-3.57 drzj=310) MONOCYTES ABSOLUTE COUNT (BEAKER) (test 0.79 K/ L 0.30-0.82 eagz=960) EOSINOPHILS ABSOLUTE COUNT (BEAKER) (test 0.01 K/ L 0.04-0.54 arkg=879) BASOPHILS ABSOLUTE COUNT (BEAKER) (test 0.02 K/ L 0.01-0.08 esmw=790) IMMATURE GRANULOCYTES-RELATIVE PERCENT (BEAKER) 1 % 0-1 (test icpg=7573)
[2019-09-27] MEDS ORDERED: MORPHINE 4 MG/ML SYR ONE (08:32)
[2019-09-27] MEDS ORDERED: ONDANSETRON 4 MG/2 ML VIAL ONE (08:33)
[2019-09-27 09:03] LABS: Absolute Lymphocytes (CBC) 0.6 K/uL (0.7-4.9); Basophils % 0.4 % (0-1.3); Hematocrit 42.9 % (39.6-49.0); Lymphocytes % 5.3 % (15.3-44.8); MPV 9.5 fL (7.6-11.3); RBC Red Blood Cell Count 4.45 M/uL (4.33-5.43)
[2019-09-27 09:17] LABS: ALT/SGPT 63 U/L (12-78); AST/SGOT 40 U/L (15-37); Albumin 3.4 g/dL (3.4-5.0); Alkaline Phosphatase 63 U/L (45-117); BUN Blood Urea Nitrogen 26 mg/dL (7-18); Bicarbonate 24 mmol/L (21-32); Bilirubin Direct 0.1 mg/dL (0-0.2); Bilirubin Total 0.4 mg/dL (0.2-1.0); Glucose Level 167 mg/dL (74-106); Lipase 108 U/L (73-393); Potassium 4.5 mmol/L (3.5-5.1); Protein, Total 7.3 g/dL (6.4-8.2); Sodium Level 142 mmol/L (136-145)
--- NOTE | 2019-09-27 10:28 | RAD REPORT ---
EXAM DESCRIPTION: CT - Abdomen Pelvis W Contrast - 09/27/2019 9:59 am CLINICAL HISTORY: ABD PAIN Additional history of lower abdominal pain since 0300 hours, history of colon cancer, ascites COMPARISON: CT study September 18, CT September 2018 TECHNIQUE: Biphasic, helical CT imaging of the abdomen and pelvis was performed following 100 ml non -ionic IV contrast. No oral contrast administered. All CT scans are performed using dose optimization technique as appropriate and may include automated exposure control or mA/KV adjustment according to patient size. FINDINGS: Large to moderately large right pleural effusion is present only partially visualized. Sig nificant atelectasis in the right low. Findings are similar to comparison. Very minimal pericardial e ffusion present. Liver is enlarged and has a nodular contour. No portal vein thrombus. There is an ill-defined 2.0 x 1 .5 centimeter area of enhancement seen in the central right lobe on arterial phase imaging. This is i sodense to the liver on venous phase imaging. This has a similar appearance back to September 2018. Th is is not a typical appearance for metastatic disease and stability over a 14 month interval would fa vor a benign etiology. Spleen and pancreas show no suspicious findings. Well filled gallbladder shows no suspicious finding. Gallstones can be occult. No biliary tree dilatation. Symmetric renal function is seen with no hydronephrosis or suspicious renal mass. No pyelonephritis o r acute parenchymal process. No bladder abnormalities. Right adrenal gland is normal. Low-density lef t adrenal mass has not changed back to July 2018 imaging. This is likely an incidental adrenal imchelle noma. Stomach is mostly decompressed. No gastric wall thickening or mass identifiable. No dilated small bow el or focal small bowel abnormality seen. Stent in the descending colon is again noted. Colon proxima l to the stent is distended but not dilated. No evidence for mass AP proximal or distal aspect of the stent. Colon distal to the stent is mostly decompressed but there is air and stool that extends to t he rectum. No appendicitis findings. Stranding and nodularity along the omentum is similar to the mid September examination. Mild strandin g in the fat adjacent to the stented portion of the colon also stable from prior imaging. No free air , free fluid, pneumatosis or new stranding. No hernia, mass or bulky lymphadenopathy. No suspicious bony findings. IMPRESSION: No free air, bowel obstruction or surgically emergent finding identifiable. There is a l david segment stent in the descending colon. No mass lesion confirmed at the proximal or distal aspect of the stent. Colon is distended proximal to the stent but not dilated. In the absence of bowel contrast and bowel cleansing, stool from soft tissue mass can be difficult to distinguish in the region of the stent. Cirrhotic appearing changes to the liver without a new or progressive liver parenchymal finding. No acute small bowel finding. No acute finding. Large to moderately large right pleural effusion incompletely assessed. Finding is not significantly different from the [facility] imaging.
--- NOTE | 2019-09-27 10:47 | ER ---
Nurse's Notes [facility] Name: Shai Gonzalez Jr Age: 58 yrs Sex: Male : 1960 Arrival Date: 09/27/2019 Time: 07:56 Bed 14 Private MD: Diagnosis: Unspecified abdominal pain;Constipation, unspecified Presentation: 09/27 08:01 Presenting complaint: EMS states: LOWER ABDOMINAL PAIN SINCE 0300. Transition of care: bp patient was not received from another setting of care. Onset of symptoms was September 27, 2019 at 03:00. Risk Assessment: Do you want to hurt yourself or someone else? Patient reports no desire to harm self or others. Initial Sepsis Screen: Does the patient meet any 2 criteria? No. Patient's initial sepsis screen is negative. Does the patient have a suspected source of infection? No. Patient's initial sepsis screen is negative. Care prior to arrival: Medication(s) given: 30MG TORADOL IV initiated. 20 GA, in the left antecubital area, Glucose check: 190. 08:01 Method Of Arrival: EMS: [facility] bp 08:01 Acuity: MARIA INES 3 bp Historical: - Allergies: 08:01 No Known Allergies; bp - Home Meds: 08:01 sotalol 80 mg Oral tab 1 tab 2 times per day [Active]; Tradjenta 5 mg oral tab 1 tab bp once daily [Active]; [place] 10-325 mg Oral tab 1 tab every 6 hours [Active]; glimepiride 4 mg Oral tab 1 tab once daily [Active]; Eliquis 5 mg oral tab 1 tab 2 times per day [Active]; - PMHx: 08:01 Asthma; Back pain; colon cancer; Diabetes - NIDDM; Gout; Hypertension; ASCITES; bp - Immunization history:: Adult Immunizations up to date. - Social history:: Smoking status: Patient/guardian denies using tobacco. - Family history:: not pertinent. - Ebola Screening: : No symptoms or risks identified at this time. - Hospitalizations: : The patient was recently seen at [facility]. Screenin:05 Abuse screen: Denies threats or abuse. Denies injuries from another. Nutritional bp screening: No deficits noted. Tuberculosis screening: No symptoms or risk factors identified. Fall Risk None identified. Assessment: 08:05 General: SEE TRIAGE NOTE. Pain: Complains of pain in right lower quadrant and left bp lower quadrant. GI: Bowel sounds present X 4 quads. Abd is soft X 4 quads. 09:00 Reassessment: ALL CURRENT COMPLETED, RESULTS PENDING. bp 11:00 Reassessment: PT D/C HOME AMBULATORY WITH FAMILY, DX WITH NONSPECIFIC ABDOMINAL PAIN. bp Vital Signs: 08:01 BP 160 / 90; Pulse 88; Resp 17; Temp 98.5; Pulse Ox 97% ; Weight 145.15 kg; Height 5 bp ft. 11 in. (180.34 cm); 09:00 BP 122 / 76; Pulse 120; Resp 18; Pulse Ox 94% ; bp 10:58 BP 124 / 79; Pulse 114; Resp 17; Temp 98.3; Pulse Ox 96% ; bp 08:01 Body Mass Index 44.63 (145.15 kg, 180.34 cm) bp ED Course: 07:56 Patient arrived in ED. bp 07:57 Rojelio Garcia, JUAN M is Primary Nurse. bp 07:58 Mookie Leos MD is Attending Physician. rn 08:05 Maintain EMS IV. Dressing intact. Good blood return noted. Site clean \T\ dry. Gauge \T\ bp site: 20 GAUGE LEFT AC. 08:05 Patient has correct armband on for positive identification. Bed in low position. Call bp light in reach. Side rails up X2. Adult w/ patient. 08:23 EKG done, by systems technologist. reviewed by Mookie Leos MD. at1 08:32 Radiology exam delayed due to lab results not completed at this time. (BUN/Creatinine). vm2 09:09 Triage completed. bp 09:14 Arm band placed on. bp 10:00 CT Abd/Pelvis - IV Contrast Only In Process Unspecified. EDMS 11:00 No provider procedures requiring assistance completed. IV discontinued, intact, bp bleeding controlled, No redness/swelling at site. Pressure dressing applied. Administered Medications: 08:30 Drug: morphine 4 mg Route: IVP; Site: left antecubital; bp 11:04 Follow up: Response: Pain is decreased bp 08:30 Drug: Zofran 4 mg Route: IVP; Site: left antecubital; bp 11:04 Follow up: Response: Nausea is decreased bp Outcome: 10:46 Discharge ordered by . rn 11:00 Discharged to home ambulatory, with family. bp 11:00 Condition: stable 11:00 Discharge instructions given to Instructed on discharge instructions, follow up and referral plans. medication usage, Demonstrated understanding of instructions, follow-up care, medications, Prescriptions given X 1. 11:05 Patient left the ED. bp Signatures: Dispatcher [employer] EDMS Mookie Leos MD MD rn Vernell Navarrete, agricultural chemicals inspector EKG [facility] Nita Hernández 2 Rojelio Garcia, RN RN bp
--- NOTE | 2019-09-27 10:47 | EDPHYS ---
Physician Documentation [facility] Name: Shai Gonzalez Jr Age: 58 yrs Sex: Male : 1960 Arrival Date: 09/27/2019 Time: 07:56 Bed 14 Private MD: ED Physician Mookie Leos HPI: 09/27 08:01 This 58 yrs old Black Male presents to ER via Unassigned with complaints of Abdominal rn Pain. 08:01 The patient presents with abdominal pain in the lower abdomen, in the periumbilical rn area. Onset: The symptoms/episode began/occurred last night. The symptoms do not radiate. Associated signs and symptoms: Pertinent positives: constipation, Pertinent negatives: anorexia, blood in stools, chest pain, diarrhea, dysuria, fever, hematuria, testicular pain. The symptoms are described as crampy, intermittent, sharp. Modifying factors: The symptoms are alleviated by nothing, the symptoms are aggravated by nothing. Severity of pain: At its worst the pain was moderate in the emergency department the pain is unchanged. The patient has not experienced similar symptoms in the past. Reports has colon cancer, undergoing chemotherapy in [place], reports had 10AM appt today, last night began with lower abd pain, no fever/vomiting/diarrhea. + mild constipation but pain did not improve after miralax and BM. . Historical: - Allergies: 08:01 No Known Allergies; bp - Home Meds: 08:01 sotalol 80 mg Oral tab 1 tab 2 times per day [Active]; Tradjenta 5 mg oral tab 1 tab bp once daily [Active]; [place] 10-325 mg Oral tab 1 tab every 6 hours [Active]; glimepiride 4 mg Oral tab 1 tab once daily [Active]; Eliquis 5 mg oral tab 1 tab 2 times per day [Active]; - PMHx: 08:01 Asthma; Back pain; colon cancer; Diabetes - NIDDM; Gout; Hypertension; ASCITES; bp - Immunization history:: Adult Immunizations up to date. - Social history:: Smoking status: Patient/guardian denies using tobacco. - Family history:: not pertinent. - Ebola Screening: : No symptoms or risks identified at this time. - Hospitalizations: : The patient was recently seen at [facility]. ROS: 08:01 Constitutional: Negative for fever, chills, and weight loss, Eyes: Negative for injury, rn pain, redness, and discharge, Neck: Negative for injury, pain, and swelling, Cardiovascular: Negative for chest pain, palpitations, and edema, Respiratory: Negative for shortness of breath, cough, wheezing, and pleuritic chest pain, Abdomen/GI: + abd pain, negative for vomiting/diarrhea MS/Extremity: Negative for injury and deformity, Skin: Negative for injury, rash, and discoloration, Neuro: Negative for headache, weakness, numbness, tingling, and seizure. Exam: 08:01 Constitutional: This is a well developed, well nourished patient who is awake, alert, rn appears uncomfortable Head/Face: Normocephalic, atraumatic. ENT: MMM Cardiovascular: Irregular rhythm, regular rate Respiratory: No increased work of breathing, no retractions or nasal flaring. Abdomen/GI: Soft, + fluid wave, mild lower midline tenderness MS/ Extremity: Pulses equal, no cyanosis. Neurovascular intact. Full, normal range of motion. Equal circumference. Neuro: Awake and alert, GCS 15, oriented to person, place, time, and situation. Vital Signs: 08:01 BP 160 / 90; Pulse 88; Resp 17; Temp 98.5; Pulse Ox 97% ; Weight 145.15 kg; Height 5 bp ft. 11 in. (180.34 cm); 09:00 BP 122 / 76; Pulse 120; Resp 18; Pulse Ox 94% ; bp 10:58 BP 124 / 79; Pulse 114; Resp 17; Temp 98.3; Pulse Ox 96% ; bp 08:01 Body Mass Index 44.63 (145.15 kg, 180.34 cm) bp MDM: 07:58 Patient medically screened. rn 10:44 Differential diagnosis: appendicitis, bowel obstruction, diverticulitis, rn Ureterolithiasis, worsening cancer, ascites. Data reviewed: vital signs, nurses notes, lab test result(s), radiologic studies, CT scan, and as a result, I will discharge patient. Counseling: I had a detailed discussion with the patient and/or guardian regarding: the historical points, exam findings, and any diagnostic results supporting the discharge/admit diagnosis, lab results, radiology results, the need for outpatient follow up, to return to the emergency department if symptoms worsen or persist or if there are any questions or concerns that arise at home. Response to treatment: the patient's symptoms have markedly improved after treatment, and as a result, I will discharge patient. Special discussion: I discussed with the patient/guardian in detail that at this point there is no indication for admission to the hospital. It is understood, however, that if the symptoms persist or worsen the patient needs to return immediately for re-evaluation. ED course: No acute findings on bloodwork or CT abdomen, could be constipation, no dilation or evidence of stent malfunction, will dc home, has appt today with his cancer doctor. . 09/27 08:00 Order name: Basic Metabolic Panel; Complete Time: 09:46 rn 09/27 08:00 Order name: CBC with Diff rn 09/27 08:00 Order name: Creatinine for Radiology; Complete Time: :46 rn 09/27 08:00 Order name: Hepatic Function; Complete Time: 09:46 rn 09/27 08:00 Order name: Lipase; Complete Time: 09:46 rn 09/27 09:14 Order name: CBC Smear Scan [facility] 09/27 08:00 Order name: IV Saline Lock; Complete Time: 08:40 rn 09/27 08:00 Order name: Labs collected and sent; Complete Time: 08:40 rn 09/27 08:00 Order name: CT Abd/Pelvis - IV Contrast Only; Complete Time: 10:33 rn Administered Medications: 08:30 Drug: morphine 4 mg Route: IVP; Site: left antecubital; bp 11:04 Follow up: Response: Pain is decreased bp 08:30 Drug: Zofran 4 mg Route: IVP; Site: left antecubital; bp 11:04 Follow up: Response: Nausea is decreased bp Disposition: 09/27/19 10:46 Discharged to Home. Impression: Unspecified abdominal pain, Constipation, unspecified. - Condition is Stable. - Discharge Instructions: Abdominal Pain, Adult, Constipation, Adult. - Prescriptions for Ultram 50 mg Oral Tablet - take 1 tablet by ORAL route every 6 hours As needed; 20 tablet. - Medication Reconciliation Form, Thank You Letter, Antibiotic Education, Prescription Opioid Use form. - Follow up: Private Physician; When: Today; Reason: Recheck today's complaints, Re-evaluation by your physician. - Problem is new. - Symptoms have improved. Signatures: Dispatcher [employer] EDMookie Roger MD MD rn Radha, Rojelio, JUAN M RN bp Corrections: (The following items were deleted from the chart) 11:05 10:46 09/27/2019 10:46 Discharged to Home. Impression: Unspecified abdominal pain; bp Constipation, unspecified. Condition is Stable. Forms are Medication Reconciliation Form, Thank You Letter, Antibiotic Education, Prescription Opioid Use. Follow up: Private Physician; When: Today; Reason: Recheck today's complaints, Re-evaluation by your physician. Problem is new. Symptoms have improved. rn
[2019-09-27 11:16] VITALS: BP 124/79; TEMP 98.3; O2SAT 96
[2019-09-27 12:49] LABS: Anisocytosis 1+; Blood Morphology Comment NOTED (NOT SEEN); Platelet Estimate ADEQ; Urine White Blood Cell Casts OK
--- NOTE | 2019-09-28 13:51 | EKG ---
Test Date: 2019-09-27 Test Time: 08:01:06 Volunteer Assistant: SILVANO MEASUREMENT RESULTS: Intervals: Rate: 95 [place]: QRSD: 74 QT: 348 QTc: 437 [place]: P: WI: QRS: 54 T: 65 INTERPRETIVE STATEMENTS: Atrial flutter with variable AV block ST & T wave abnormality, consider inferolateral ischemia Abnormal ECG Compared to ECG 09/18/2019 07:45:49 ST (T wave) deviation now present T-wave abnormality no longer present Possible ischemia still present Electronically Signed On 09-28-19 13:47:07 ADVANCED ANALYTICS ASSOCIATE by Slick Velásquez
== END 2019-09-27 11:05 | disposition home or self-care (01) ==
LOC: ER 07:51
DX: K59.00 Constipation, unspecified (principal); I10 Essential (primary) hypertension; E11.9 Type 2 diabetes mellitus without complications; Z79.01 Long term (current) use of anticoagulants; Z85.038 Personal history of other malignant neoplasm of large intestine
CPT/HCPCS: 93005; 85025; 80048; 36415; 80076; 83690; 74177; 96375; 96374; 99284; Q9967; J2405

== ENCOUNTER 2019-10-16 09:32 | Observation (INO) | payer OTHER ==
--- OUTSIDE RECORDS SUMMARY | 2019-10-16 09:36 | XMS REPORT ---
:1960 [facility] Address [address] [place] [address] Care Team Providers Name Role Phone MARLYS [...] for FINAL REPORT PATIENT ID: Exam:->SOB shortness [id number] CHEST PA AND of breath LATERAL COMPARISON [...] MDReport Verified Date/Time: 07/16/2019 14:00:37 Reading Location: [address] Radiology Reading Room , CHEST, WITH IV 2019-07-02 13:11:00 Reason for FINAL REPORT PATIENT ID: CONTRAST Exam:->C18.[id number] of the chest, abdomen and pelvis, [...] MDReport Verified Date/Time: 07/02/2019 13:11:30 Reading Location: [facility] C013X [facility] Consult Reading Room , ABDOMEN 2019-07-02 13:11:00 Reason for FINAL REPORT PATIENT ID: Exam:->C18.[id number] of the chest, abdomen and pelvis, [...] the medial aspect of spleen. Signed: Stefanie Royort Verified Date/Time: 07/02/2019 13:11:30 Reading Location: [facility] C013X [facility] Consult Reading Room -CREATININE 2019-07-02 07:46:00 Test Item Value Reference Range Comments POC-CREATININE (ZACHARY) (test 0.7 mg/dL 0.6-1.3 TESTED AT [facility] 7200 jfta=0805) [facility] [address] POC-EGFR (ZACHARY) (test 140 mL/min/1.73M2 qsbr=9124) CT, [id number] 09:11:00FINAL REPORT EXAM: CT Chest , Abdomen [...] 09:11:14 09 :11 AMCT, CHEST, WITH IV [id number] 09:11:00FINAL REPORT EXAM: CT Chest, Abdomen and [...] MD on 09:11 AMCT, CHEST, WITH IV [id number] 15:06:00FINAL REPORT CT CHEST, ABDOMEN, AND PELVIS [...] 15:06:57 CT, ABDOMEN, WITHOUT / WITH IV [id number] 15:06: 00FINAL REPORT CT CHEST, ABDOMEN, AND [...] Time: 12/25/2018 15:06:57 CT, PELVIS, WITH IV [id number] 15:06:00FINAL REPORT CT CHEST, ABDOMEN, AND PELVIS [...] Soriano MDReport Verified Date/ Time: 12/25/2018 15:06:57 [id number] 08:55:00 Test Item Value Reference Range Comments POC-CREATININE (ZACHARY) 0.7 mg/dL 0.6-1.3 TESTED AT [facility] 7200 (test uofh=6214) [facility] [address] POC-EGFR (ZACHARY) (test 140 mL/min/1.73M2 pusz=8527) TISSUE [id number] 13:08:00Surgical Pathology Report Case: [id number] Authorizing Provider: Jessi Turcios MD Collected: 07/17/2018 6104 Ordering Location: [address] Received: 07/17/2018 1607 Service Pathologist: Allen [...] developed and its performance characteristics determined by [facility], Pathology Laboratory. It has not been [...] qualified to perform high complexity clinical laboratory testing.[id number] x 4Addendum electronically signed by Star Trejo MD on 07/20/2018 at 10:07 AMPART A OMENTAL BIOPSY:MODERATELY DIFFERENTIATED ADENOCARCINOMA.SEE DIAGNOSTIC COMMENT. Signing Pathologist Direct Phone Line: [phone] signed by Allen Velazquez MD on 07/19/2018 [...] and imaging studies is required for complete interpretation.[id number], 95949, [id number] givenOmentum The specimen is received in a formalin-filled container and labeledwith the patient's information labeled "omentum" and consists of four off white core biopsies ranging from 0.2 to 0.4 cm, submitted entirely A1.CG/pl PERFORMED.The following special studies were performed on this case and the interpretation is incorporated in the diagnostic report above:BLOCK A1- CK7,CK20, CDX2, TTF1, PSA, TV96Sze immunohistochemistry test was developed and its performance characteristics determined by [facility], Pathology Laboratory. It has not been [...] to perform high complexity clinical laboratory testing.POCT-GLUCOSE [id number] 12:55:00 Test Item Value Reference Range Comments POC-GLUCOSE METER (BEAKER) 115 mg/dL 70-110 TESTED AT [address] (test syrv=5822) [facility] [address] POCT-GLUCOSE [id number] 08:52:00 Test Item Value Reference Range Comments POC-GLUCOSE METER (BEAKER) 137 mg/dL 70-110 TESTED AT [facility] [address] [facility] (test kauv=6253) [facility] [address] CARCINOEMBRYONIC ANTIGEN (CEA)2018-09-13 07:11:00 Test Item Value Reference Range Comments CARCINOEMBRYONIC ANTIGEN (BEAKER) (test 1302.5 ng/mL 0.0-5.0 eadn=134) [id number] 07:04:00 Test Item Value Reference Range Comments MAGNESIUM (BEAKER) (test vlou=348) 1.7 mg/dL 1.6-2.6 BASIC METABOLIC [id number] 07:04:00 Test Item Value Reference Range Comments SODIUM (BEAKER) (test 139 meq/L 136-145 owfo=730) POTASSIUM (BEAKER) (test 3.5 meq/L 3.5-5.1 yexg=035) CHLORIDE (BEAKER) (test 105 meq/L 98-107 muah=636) CO2 (BEAKER) (test 26 meq/L 22-29 eweb=011) BLOOD UREA NITROGEN 10 mg/dL 7-21 (BEAKER) (test vydj=758) CREATININE (BEAKER) (test 0.77 mg/dL 0.57-1.25 nivq=005) GLUCOSE RANDOM (BEAKER) 135 mg/dL 70-105 (test kndw=454) CALCIUM (BEAKER) (test 8.9 mg/dL 8.4-10.2 etjt=232) EGFR (BEAKER) (test 126 mL/min/1.73 sq m ESTIMATED GFR IS NOT fkph=0230) ACCURATE CREATININE CLEARANCE IN PREDICTING GLOMERULAR FILTRATION RATE. ESTIMATED GFR IS NOT APPLICABLE FOR DIALYSIS PATIENTS. HEPATIC FUNCTION [id number] 07:04:00 Test Item Value Reference Range Comments TOTAL PROTEIN (BEAKER) (test tahh=744) 7.4 gm/dL 6.0-8.3 ALBUMIN (BEAKER) (test gzbr=3431) 3.9 g/dL 3.5-5.0 BILIRUBIN TOTAL (BEAKER) (test cqsl=606) 0.6 mg/dL 0.2-1.2 BILIRUBIN DIRECT (BEAKER) (test pcrn=652) 0.3 mg/dL 0.1-0.5 ALKALINE PHOSPHATASE (BEAKER) (test ctgi=644) 63 U/L 40-150 AST (SGOT) (BEAKER) (test dujj=878) 23 U/L 5-34 ALT (SGPT) (BEAKER) (test utie=751) 37 U/L 6-55 CBC W/PLT COUNT & AUTO [id number] 06:29:00 Test Item Value Reference Range Comments WHITE BLOOD CELL COUNT (BEAKER) (test ujvi=632) 9.8 K/ L 3.5-10.5 RED BLOOD CELL COUNT (BEAKER) (test laei=705) 4.61 M/ L 4.63-6.08 HEMOGLOBIN (BEAKER) (test zcwn=546) 12.9 GM/DL 13.7-17.5 HEMATOCRIT (BEAKER) (test lyvo=687) 41.0 % 40.1-51.0 MEAN CORPUSCULAR VOLUME (BEAKER) (test vtya=449) 88.9 fL 79.0-92.2 MEAN CORPUSCULAR HEMOGLOBIN (BEAKER) (test 28.0 pg 25.7-32.2 fndx=869) MEAN CORPUSCULAR HEMOGLOBIN CONC (BEAKER) (test 31.5 GM/DL 32.3-36.5 tvbn=234) RED CELL DISTRIBUTION WIDTH (BEAKER) (test 13.0 % 11.6-14.4 vmih=440) PLATELET COUNT (BEAKER) (test edod=691) 285 K/CU MM 150-450 MEAN PLATELET VOLUME (BEAKER) (test twgj=967) 11.3 fL 9.4-12.4 NUCLEATED RED BLOOD CELLS (BEAKER) (test 0 /100 WBC 0-0 ymaq=341) NEUTROPHILS RELATIVE PERCENT (BEAKER) (test 69 % gfca=130) LYMPHOCYTES RELATIVE PERCENT (BEAKER) (test 18 % mxaq=352) MONOCYTES RELATIVE PERCENT (BEAKER) (test 11 % irja=624) EOSINOPHILS RELATIVE PERCENT (BEAKER) (test 2 % ryxr=003) BASOPHILS RELATIVE PERCENT (BEAKER) (test 1 % hrrg=223) NEUTROPHILS ABSOLUTE COUNT (BEAKER) (test 6.71 K/ L 1.78-5.38 huyb=900) LYMPHOCYTES ABSOLUTE COUNT (BEAKER) (test 1.72 K/ L 1.32-3.57 urlj=945) MONOCYTES ABSOLUTE COUNT (BEAKER) (test 1.10 K/ L 0.30-0.82 pzlj=029) EOSINOPHILS ABSOLUTE COUNT (BEAKER) (test 0.17 K/ L 0.04-0.54 pjmi=317) BASOPHILS ABSOLUTE COUNT (BEAKER) (test 0.06 K/ L 0.01-0.08 bhgq=459) IMMATURE GRANULOCYTES-RELATIVE PERCENT (BEAKER) 0 % 0-1 (test oxpn=5000) POCT-GLUCOSE [id number] 01:02:00 Test Item Value Reference Range Comments POC-GLUCOSE METER (BEAKER) 130 mg/dL 70-110 TESTED AT [address] (test qicb=5220) [facility] [address] POCT-GLUCOSE [id number] 17:48:00 Test Item Value Reference Range Comments POC-GLUCOSE METER (BEAKER) 119 mg/dL 70-110 TESTED AT [address] (test qspc=8423) [facility] [address] POCT-GLUCOSE [id number] 12:27:00 Test Item Value Reference Range Comments POC-GLUCOSE METER (BEAKER) 154 mg/dL 70-110 TESTED AT [address] (test rbyn=8200) [facility] [address] POCT-GLUCOSE [id number] 07:44:00 Test Item Value Reference Range Comments POC-GLUCOSE METER (BEAKER) 243 mg/dL 70-110 TESTED AT [address] (test yizt=8128) [facility] [address] [id number] 06:49:00 Test Item Value Reference Range Comments MAGNESIUM (BEAKER) (test tgnp=405) 1.8 mg/dL 1.6-2.6 BASIC METABOLIC [id number] 06:49:00 Test Item Value Reference Range Comments SODIUM (BEAKER) (test 138 meq/L 136-145 uays=468) POTASSIUM (BEAKER) (test 3.3 meq/L 3.5-5.1 uiyu=120) CHLORIDE (BEAKER) (test 103 meq/L 98-107 gmzh=169) CO2 (BEAKER) (test 27 meq/L 22-29 woia=694) BLOOD UREA NITROGEN 18 mg/dL 7-21 (BEAKER) (test begd=569) CREATININE (BEAKER) (test 1.08 mg/dL 0.57-1.25 hfsy=471) GLUCOSE RANDOM (BEAKER) 139 mg/dL 70-105 (test xtwf=437) CALCIUM (BEAKER) (test 8.6 mg/dL 8.4-10.2 xymk=085) EGFR (BEAKER) (test 85 mL/min/1.73 sq m ESTIMATED GFR IS NOT cpfy=5746) ACCURATE CREATININE CLEARANCE IN PREDICTING GLOMERULAR FILTRATION RATE. ESTIMATED GFR IS NOT APPLICABLE FOR DIALYSIS PATIENTS. CBC W/PLT COUNT & AUTO [id number] 06:29:00 Test Item Value Reference Range Comments WHITE BLOOD CELL COUNT (BEAKER) (test grai=301) 9.6 K/ L 3.5-10.5 RED BLOOD CELL COUNT (BEAKER) (test xaoq=568) 4.04 M/ L 4.63-6.08 HEMOGLOBIN (BEAKER) (test dyvy=602) 11.5 GM/DL 13.7-17.5 HEMATOCRIT (BEAKER) (test ziuc=466) 36.5 % 40.1-51.0 MEAN CORPUSCULAR VOLUME (BEAKER) (test roga=200) 90.3 fL 79.0-92.2 MEAN CORPUSCULAR HEMOGLOBIN (BEAKER) (test 28.5 pg 25.7-32.2 zvor=373) MEAN CORPUSCULAR HEMOGLOBIN CONC (BEAKER) (test 31.5 GM/DL 32.3-36.5 jwlu=378) RED CELL DISTRIBUTION WIDTH (BEAKER) (test 13.1 % 11.6-14.4 ftif=522) PLATELET COUNT (BEAKER) (test agku=601) 238 K/CU MM 150-450 MEAN PLATELET VOLUME (BEAKER) (test djkc=423) 11.3 fL 9.4-12.4 NUCLEATED RED BLOOD CELLS (BEAKER) (test 0 /100 WBC 0-0 flre=090) NEUTROPHILS RELATIVE PERCENT (BEAKER) (test 71 % sxyy=121) LYMPHOCYTES RELATIVE PERCENT (BEAKER) (test 15 % ulvc=139) MONOCYTES RELATIVE PERCENT (BEAKER) (test 12 % jinp=963) EOSINOPHILS RELATIVE PERCENT (BEAKER) (test 2 % agqk=315) BASOPHILS RELATIVE PERCENT (BEAKER) (test 1 % zdvq=973) NEUTROPHILS ABSOLUTE COUNT (BEAKER) (test 6.74 K/ L 1.78-5.38 ymgf=632) LYMPHOCYTES ABSOLUTE COUNT (BEAKER) (test 1.42 K/ L 1.32-3.57 yuyf=659) MONOCYTES ABSOLUTE COUNT (BEAKER) (test 1.17 K/ L 0.30-0.82 msxr=592) EOSINOPHILS ABSOLUTE COUNT (BEAKER) (test 0.14 K/ L 0.04-0.54 gxhh=145) BASOPHILS ABSOLUTE COUNT (BEAKER) (test 0.06 K/ L 0.01-0.08 oywv=711) IMMATURE GRANULOCYTES-RELATIVE PERCENT (BEAKER) 0 % 0-1 (test btru=8491) POCT-GLUCOSE [id number] 00:36:00 Test Item Value Reference Range Comments POC-GLUCOSE METER (BEAKER) 141 mg/dL 70-110 TESTED AT [address] (test gdvc=5497) [facility] [address] [place], TUBE HANDLER IN OR/30 MINUTE [id number] 19:40:00Reason for exam:-> DURING PROCEDUREBRONCHFINAL REPORT Fluoroscopy 5 views intraoperative 09/11/2018 7:39 PM CLINICAL HISTORY: Instrument localization COMPARISON: None available IMPRESSION: Please correlate imaging report findings with the procedure note prepared by Dr. Cordova, as an intra-procedure imaging consultation was not requested. Reported fluoroscopy time: 525.3 seconds. Signed : Chau Gasca Verified Date/Time: 09/11/2018 19:40:28 Reading Location: [facility] Radiology Reading Room POCT-GLUCOSE [id number] 18:32: 00 Test Item Value Reference Range Comments POC-GLUCOSE METER (BEAKER) 116 mg/dL 70-110 TESTED AT [address] (test swxr=6371) [place] [id number] POCT-GLUCOSE [id number] 12:08:00 Test Item Value Reference Range Comments POC-GLUCOSE METER (BEAKER) 156 mg/dL 70-110 TESTED AT [address] (test fhdb=2461) [place] [address] [id number] 09:06:00 Test Item Value Reference Range Comments MAGNESIUM (BEAKER) (test yamw=458) 1.9 mg/dL 1.6-2.6 [id number] 09:06:00 Test Item Value Reference Range Comments PHOSPHORUS (BEAKER) (test poov=460) 3.8 mg/dL 2.3-4.7 BASIC METABOLIC [id number] 06:49:00 Test Item Value Reference Range Comments SODIUM (BEAKER) (test 139 meq/L 136-145 faka=095) POTASSIUM (BEAKER) (test 3.0 meq/L 3.5-5.1 kbnd=461) CHLORIDE (BEAKER) (test 100 meq/L 98-107 ryuk=834) CO2 (BEAKER) (test 28 meq/L 22-29 tmbl=193) BLOOD UREA NITROGEN 13 mg/dL 7-21 (BEAKER) (test kumu=556) CREATININE (BEAKER) (test 0.83 mg/dL 0.57-1.25 ovpx=613) GLUCOSE RANDOM (BEAKER) 135 mg/dL 70-105 (test zncx=751) CALCIUM (BEAKER) (test 9.2 mg/dL 8.4-10.2 chan=039) EGFR (BEAKER) (test 116 mL/min/1.73 sq m ESTIMATED GFR IS NOT atkh=5151) ACCURATE CREATININE CLEARANCE IN PREDICTING GLOMERULAR FILTRATION RATE. ESTIMATED GFR IS NOT APPLICABLE FOR DIALYSIS PATIENTS. POCT-GLUCOSE [id number] 06:36:00 Test Item Value Reference Range Comments POC-GLUCOSE METER (BEAKER) 161 mg/dL 70-110 TESTED AT [facility] [address] [facility] (test bfcx=1250) [facility] [address] CBC W/PLT COUNT & AUTO [id number] 06:28:00 Test Item Value Reference Range Comments WHITE BLOOD CELL COUNT (BEAKER) (test hsao=705) 10.7 K/ L 3.5-10.5 RED BLOOD CELL COUNT (BEAKER) (test gomr=086) 4.72 M/ L 4.63-6.08 HEMOGLOBIN (BEAKER) (test kvmz=945) 13.7 GM/DL 13.7-17.5 HEMATOCRIT (BEAKER) (test ftal=048) 42.6 % 40.1-51.0 MEAN CORPUSCULAR VOLUME (BEAKER) (test zrsr=961) 90.3 fL 79.0-92.2 MEAN CORPUSCULAR HEMOGLOBIN (BEAKER) (test 29.0 pg 25.7-32.2 hvlv=490) MEAN CORPUSCULAR HEMOGLOBIN CONC (BEAKER) (test 32.2 GM/DL 32.3-36.5 fzfj=736) RED CELL DISTRIBUTION WIDTH (BEAKER) (test 12.9 % 11.6-14.4 asru=974) PLATELET COUNT (BEAKER) (test trny=622) 292 K/CU MM 150-450 MEAN PLATELET VOLUME (BEAKER) (test rfiu=538) 11.3 fL 9.4-12.4 NUCLEATED RED BLOOD CELLS (BEAKER) (test 0 /100 WBC 0-0 ojca=497) NEUTROPHILS RELATIVE PERCENT (BEAKER) (test 75 % rfmz=852) LYMPHOCYTES RELATIVE PERCENT (BEAKER) (test 13 % mlrr=965) MONOCYTES RELATIVE PERCENT (BEAKER) (test 11 % oztz=276) EOSINOPHILS RELATIVE PERCENT (BEAKER) (test 0 % rqjc=117) BASOPHILS RELATIVE PERCENT (BEAKER) (test 0 % alfz=112) NEUTROPHILS ABSOLUTE COUNT (BEAKER) (test 7.97 K/ L 1.78-5.38 oqmz=114) LYMPHOCYTES ABSOLUTE COUNT (BEAKER) (test 1.41 K/ L 1.32-3.57 nlrw=629) MONOCYTES ABSOLUTE COUNT (BEAKER) (test 1.18 K/ L 0.30-0.82 gpee=733) EOSINOPHILS ABSOLUTE COUNT (BEAKER) (test 0.04 K/ L 0.04-0.54 rdhr=642) BASOPHILS ABSOLUTE COUNT (BEAKER) (test 0.03 K/ L 0.01-0.08 ydve=993) IMMATURE GRANULOCYTES-RELATIVE PERCENT (BEAKER) 1 % 0-1 (test yoof=4232) POCT-GLUCOSE [id number] 01:34:00 Test Item Value Reference Range Comments POC-GLUCOSE METER (BEAKER) 135 mg/dL 70-110 TESTED AT [address] (test rxuu=9660) [place] [id number] POCT-GLUCOSE [id number] 09:00:00 Test Item Value Reference Range Comments POC-GLUCOSE METER (BEAKER) 195 mg/dL 70-110 TESTED AT [address] (test rrqr=1540) [place] [address] BLOOD [id number] 06:00:00 Test Item Value Reference Range Comments CULTURE (BEAKER) (test svgv=6008) No growth in 5 days BLOOD [id number] 06:00:00 Test Item Value Reference Range Comments CULTURE (BEAKER) (test kaqi=2442) No growth in 5 days BASIC METABOLIC [id number] 05:43:00 Test Item Value Reference Range Comments SODIUM (BEAKER) (test 141 meq/L 136-145 znpm=427) POTASSIUM (BEAKER) (test 3.6 meq/L 3.5-5.1 ydyp=922) CHLORIDE (BEAKER) (test 106 meq/L 98-107 ngyq=507) CO2 (BEAKER) (test 25 meq/L 22-29 zfkj=072) BLOOD UREA NITROGEN 9 mg/dL 7-21 (BEAKER) (test dvoc=624) CREATININE (BEAKER) (test 0.80 mg/dL 0.57-1.25 kzcd=781) GLUCOSE RANDOM (BEAKER) 119 mg/dL 70-105 (test hrbl=134) CALCIUM (BEAKER) (test 8.9 mg/dL 8.4-10.2 gkul=692) EGFR (BEAKER) (test 121 mL/min/1.73 sq m ESTIMATED GFR IS NOT sime=0444) ACCURATE CREATININE CLEARANCE IN PREDICTING GLOMERULAR FILTRATION RATE. ESTIMATED GFR IS NOT APPLICABLE FOR DIALYSIS PATIENTS. CBC W/PLT COUNT & AUTO [id number] 05:01:00 Test Item Value Reference Range Comments WHITE BLOOD CELL COUNT (BEAKER) (test yanw=150) 7.2 K/ L 3.5-10.5 RED BLOOD CELL COUNT (BEAKER) (test esei=059) 4.62 M/ L 4.63-6.08 HEMOGLOBIN (BEAKER) (test ucoy=865) 13.4 GM/DL 13.7-17.5 HEMATOCRIT (BEAKER) (test loaz=199) 43.7 % 40.1-51.0 MEAN CORPUSCULAR VOLUME (BEAKER) (test bgyv=985) 94.6 fL 79.0-92.2 MEAN CORPUSCULAR HEMOGLOBIN (BEAKER) (test 29.0 pg 25.7-32.2 oswo=328) MEAN CORPUSCULAR HEMOGLOBIN CONC (BEAKER) (test 30.7 GM/DL 32.3-36.5 iatw=030) RED CELL DISTRIBUTION WIDTH (BEAKER) (test 13.4 % 11.6-14.4 ddoe=612) PLATELET COUNT (BEAKER) (test uedd=426) 224 K/CU MM 150-450 MEAN PLATELET VOLUME (BEAKER) (test lmkk=709) 11.5 fL 9.4-12.4 NUCLEATED RED BLOOD CELLS (BEAKER) (test 0 /100 WBC 0-0 ntza=360) NEUTROPHILS RELATIVE PERCENT (BEAKER) (test 66 % kygw=847) LYMPHOCYTES RELATIVE PERCENT (BEAKER) (test 19 % ukrv=561) MONOCYTES RELATIVE PERCENT (BEAKER) (test 10 % scwh=748) EOSINOPHILS RELATIVE PERCENT (BEAKER) (test 4 % xtuq=209) BASOPHILS RELATIVE PERCENT (BEAKER) (test 1 % tdfs=127) NEUTROPHILS ABSOLUTE COUNT (BEAKER) (test 4.80 K/ L 1.78-5.38 jpis=467) LYMPHOCYTES ABSOLUTE COUNT (BEAKER) (test 1.39 K/ L 1.32-3.57 jstj=134) MONOCYTES ABSOLUTE COUNT (BEAKER) (test 0.72 K/ L 0.30-0.82 ugwv=458) EOSINOPHILS ABSOLUTE COUNT (BEAKER) (test 0.25 K/ L 0.04-0.54 wrdr=324) BASOPHILS ABSOLUTE COUNT (BEAKER) (test 0.05 K/ L 0.01-0.08 mlbg=190) IMMATURE GRANULOCYTES-RELATIVE PERCENT (BEAKER) 0 % 0-1 (test qbml=0183) POCT-GLUCOSE [id number] 22:22:00 Test Item Value Reference Range Comments POC-GLUCOSE METER (BEAKER) 171 mg/dL 70-110 TESTED AT [address] (test cuhe=1908) [facility] [address] ANG, TUNNEL CATH CENTRAL INS W/PORT [id number] 18:25:00Reason for exam:-> need for chemotherapy.FINAL REPORT Right internal jugular chest port insertion History: Patient requires access for chemotherapy administration. Modality: Sonography andfluoroscopy. Sedation: Versed 1.5 mg and fentanyl 50 mcg given intravenously for conscious sedation. Vital signs were monitored throughout the procedure by a nurse, and remained stable. Physician intra-service time was 30 minutes. Site Leasing Agent: Singh Escamilla MD Crm Functional Analyst: Noé. Approach: Right internal jugular vein Estimated [...] needle into the right atrium. A 4 Cypriot micropuncture sheath was placed. A subcutaneous tunnel [...] Escamilla Verified Date/Time: 07/19 18:25:29 Reading Location: [place] [address] Angio Body Reading Room POCT- GLUCOSE [id number] 16:53:00 Test Item Value Reference Range Comments POC-GLUCOSE METER (BEAKER) 124 mg/dL 70-110 TESTED AT [facility] [address] [facility] (test xqae=4580) [facility] [address] TISSUE [id number] 16:29:00Surgical Pathology Report Case: [id number] Authorizing Provider: Julius Umanzor MD Collected: 07/18/2018 1502 Ordering Location: [address] Received: 07/19/2018 0751 Service Pathologist: Charo Brar MD Specimen: Large Intestine, Colon - Left/Descending , mass LEFT/DESCENDING COLON, BIOPSY: - INVASIVE MODERATELY DIFFERENTIATED ADENOCARCINOMA, SITUATED PREDOMINANTLY BENEATH THE MUSCULARIS MUCOSA, WITH FOCAL NECROSISMO/pl Signing Pathologist Direct Phone Line: [phone] signed by Charo Brar MD on 07/19/2018 at 4:29 [id number] [id number] of colon, colonic mass Left descending colon [...] apoptosis. Other significant features are not noted.POCT-GLUCOSE [id number] 12:32:00 Test Item Value Reference Range Comments POC-GLUCOSE METER (BEAKER) 116 mg/dL 70-110 TESTED AT [address] (test tebv=1328) [place] [id number] POCT-GLUCOSE [id number] 09:22:00 Test Item Value Reference Range Comments POC-GLUCOSE METER (BEAKER) 130 mg/dL 70-110 TESTED AT [address] (test hrqy=2103) [place] [id number] BASIC METABOLIC [id number] 06:03:00 Test Item Value Reference Range Comments SODIUM (BEAKER) (test 138 meq/L 136-145 zaso=550) POTASSIUM (BEAKER) (test 3.3 meq/L 3.5-5.1 altr=302) CHLORIDE (BEAKER) (test 104 meq/L 98-107 rctl=665) CO2 (BEAKER) (test 23 meq/L 22-29 tynn=923) BLOOD UREA NITROGEN 6 mg/dL 7-21 (BEAKER) (test vjmz=861) CREATININE (BEAKER) (test 0.76 mg/dL 0.57-1.25 khca=317) GLUCOSE RANDOM (BEAKER) 122 mg/dL 70-105 (test uqvv=860) CALCIUM (BEAKER) (test 9.2 mg/dL 8.4-10.2 gsep=453) EGFR (BEAKER) (test 128 mL/min/1.73 sq m ESTIMATED GFR IS NOT wzla=0814) ACCURATE CREATININE CLEARANCE IN PREDICTING GLOMERULAR FILTRATION RATE. ESTIMATED GFR IS NOT APPLICABLE FOR DIALYSIS PATIENTS. PROTHROMBIN [id number] 05:34:00 Test Item Value Reference Range Comments PROTIME (BEAKER) (test xzpv=817) 14.2 seconds 11.7-14.7 INR (BEAKER) (test jhaa=722) 1.1 <=5.9 RECOMMENDED COUMADIN/WARFARIN INR THERAPY RANGESSTANDARD DOSE: 2.0 - 3.0 Includes: PROPHYLAXIS forvenous thrombosis, systemic embolization; TREATMENT for venous thrombosis and/or pulmonary embolus.HIGH RISK: Target INR is 2.5-3.5 for patients with mechanical heart valves.CBC W/PLT COUNT & AUTO [id number] 05:29:00 Test Item Value Reference Range Comments WHITE BLOOD CELL COUNT (BEAKER) (test qtqc=449) 9.1 K/ L 3.5-10.5 RED BLOOD CELL COUNT (BEAKER) (test woac=511) 4.61 M/ L 4.63-6.08 HEMOGLOBIN (BEAKER) (test uuqj=139) 13.5 GM/DL 13.7-17.5 HEMATOCRIT (BEAKER) (test dcqs=432) 42.6 % 40.1-51.0 MEAN CORPUSCULAR VOLUME (BEAKER) (test xtkb=363) 92.4 fL 79.0-92.2 MEAN CORPUSCULAR HEMOGLOBIN (BEAKER) (test 29.3 pg 25.7-32.2 xxhr=516) MEAN CORPUSCULAR HEMOGLOBIN CONC (BEAKER) (test 31.7 GM/DL 32.3-36.5 yaqg=662) RED CELL DISTRIBUTION WIDTH (BEAKER) (test 13.3 % 11.6-14.4 otfa=092) PLATELET COUNT (BEAKER) (test qlwv=274) 235 K/CU MM 150-450 MEAN PLATELET VOLUME (BEAKER) (test hbqr=746) 11.5 fL 9.4-12.4 NUCLEATED RED BLOOD CELLS (BEAKER) (test 0 /100 WBC 0-0 dvyu=674) NEUTROPHILS RELATIVE PERCENT (BEAKER) (test 71 % lfgd=338) LYMPHOCYTES RELATIVE PERCENT (BEAKER) (test 14 % gxza=000) MONOCYTES RELATIVE PERCENT (BEAKER) (test 11 % dxxs=654) EOSINOPHILS RELATIVE PERCENT (BEAKER) (test 2 % magw=646) BASOPHILS RELATIVE PERCENT (BEAKER) (test 1 % tkuj=483) NEUTROPHILS ABSOLUTE COUNT (BEAKER) (test 6.48 K/ L 1.78-5.38 cxyp=875) LYMPHOCYTES ABSOLUTE COUNT (BEAKER) (test 1.31 K/ L 1.32-3.57 xygf=925) MONOCYTES ABSOLUTE COUNT (BEAKER) (test 0.98 K/ L 0.30-0.82 bwhn=626) EOSINOPHILS ABSOLUTE COUNT (BEAKER) (test 0.20 K/ L 0.04-0.54 tqye=127) BASOPHILS ABSOLUTE COUNT (BEAKER) (test 0.05 K/ L 0.01-0.08 dnhd=702) IMMATURE GRANULOCYTES-RELATIVE PERCENT (BEAKER) 1 % 0-1 (test ovsr=6207) POCT-GLUCOSE [id number] 23:21:00 Test Item Value Reference Range Comments POC-GLUCOSE METER (BEAKER) 127 mg/dL 70-110 TESTED AT [address] (test eegg=8432) [place] [id number] POCT-GLUCOSE [id number] 17:29:00 Test Item Value Reference Range Comments POC-GLUCOSE METER (BEAKER) 116 mg/dL 70-110 TESTED AT [address] (test galk=6298) [place] [id number] POCT-GLUCOSE [id number] 15:41:00 Test Item Value Reference Range Comments POC-GLUCOSE METER (BEAKER) 122 mg/dL 70-110 TESTED AT [address] (test jevz=4877) [place] [id number] 15:40:00Medical Cytology Report Case: [id number] Authorizing Provider: Jessi Turcios MD Collected: 07/17/2018 1435 Ordering Location: [address] Received: 07/18/2018 0837 Service Pathologist: Alvin Arroyo MD Specimen: Peritoneal Fluid PERITONEAL FLUID (CYTOSPINS): - SUSPICIOUS FOR MALIGNANCY Signing Pathologist Direct Phone Line: [phone] signed by Alvin Arroyo MD on 07/18/2018 at 3:40 PMThere are a few atypical clusters that are suspicious for malignancy in a background of reactive mesothelial cells and chronic inflammation.[id number]; colon mass and omental nodules presents for CT-guided core biopsy of omentalnodulesPERITONEAL FLUIDPrepared 4 cytospins from 4 ml yellow blood-tinged fluidCollected: [id number]: [id number] [facility]hel[facility], Department of [facility]ology, [address] [place] [id number], [facility], [facility], [address] [place] [id number], [facility]ofK[facility], [facility] of Pathology, [address] [place] [id number], UYDC-GLUCOSE [id number] 11:53:00 Test Item Value Reference Range Comments POC-GLUCOSE METER (BEAKER) 111 mg/dL 70-110 TESTED AT [address] (test ejot=4932) [place] [id number] POCT-GLUCOSE [id number] 06:48:00 Test Item Value Reference Range Comments POC-GLUCOSE METER (BEAKER) 124 mg/dL 70-110 TESTED AT [address] (test ldvc=5882) [place] [address] POCT-GLUCOSE [id number] 23:34:00 Test Item Value Reference Range Comments POC-GLUCOSE METER (BEAKER) 133 mg/dL 70-110 TESTED AT [address] (test dtcf=2615) [place] [address] BODY FLUID CELL COUNT WITH [id number] 18:38:00 Test Item Value Reference Range Comments APPEARANCE FLUID (BEAKER) (test sisv=534) Slightly Bloody Clear COLOR FLUID (BEAKER) (test xzjh=007) Yarelis Colorless, Straw RBC FLUID (BEAKER) (test ppga=446) 9500 /cu mm <=1 ADJUSTED WBC FLUID (BEAKER) (test 1043 /cu mm <=5 vvwz=0283) LINING CELLS (BEAKER) (test ubsw=6562) 42 /cu mm <=1 NEUTROPHILS FLUID (BEAKER) (test iais=3256) 17 % LYMPHS FLUID (BEAKER) (test kusu=485) 28 % MONO/MACROPHAGE FLUID (BEAKER) (test 55 % rsar=356) EOSINOPHILS FLUID (BEAKER) (test ojxy=353) 0 % BASO FLUID (BEAKER) (test iehy=060) 0 % CONTAINER BODY FLUID (BEAKER) (test EDTA Tube bmsz=8804) POCT-GLUCOSE [id number] 17:54:00 Test Item Value Reference Range Comments POC-GLUCOSE METER (BEAKER) 145 mg/dL 70-110 TESTED AT [facility] [address] [place] [address] (test zcsc=1822) [facility] [address] CT, BIOPSY, [id number] 16:57:00Reason for exam:->Need biopsy of omentum for [...] MDReport Verified Date/Time: 2017 16:57:37 Reading Location: [facility] C013Y CT Body Reading Room ALBUMIN , BODY [id number] 16:12:00 Test Item Value Reference Range Comments ALBUMIN FLUID (BEAKER) (test knkh=303) 2.9 gm/dL Reference Range: No Normals Assay performance has not been validated for this type of specimen.PROTEIN, BODY [id number] 16:12:00 Test Item Value Reference Range Comments PROTEIN FLUID (BEAKER) (test vtlx=077) 5.0 g/dL Absence of reference range indicates that normals have not been defined.Assay performance has not been validated for this type of specimen.[id number] 13:18:00 Test Item Value Reference Range Comments PROTIME (BEAKER) (test dzks=749) 14.6 seconds 11.7-14.7 INR (BEAKER) (test jkxy=334) 1.1 <=5.9 PARTIAL THROMBOPLASTIN TIME (BEAKER) (test 27.7 seconds 22.5-36.0 cadz=916) RECOMMENDED COUMADIN/WARFARIN INR THERAPY RANGESSTANDARD DOSE: 2.0 - 3.0 Includes: PROPHYLAXIS forvenous thrombosis, systemic embolization; TREATMENT for venous thrombosis and/or pulmonary embolus.HIGH RISK: Target INR is 2.5-3.5 for patients with mechanical heart valves.CBC W/PLT COUNT & AUTO [id number] 13:08:00 Test Item Value Reference Range Comments WHITE BLOOD CELL COUNT (BEAKER) (test vvuc=403) 10.4 K/ L 3.5-10.5 RED BLOOD CELL COUNT (BEAKER) (test hbzm=016) 4.53 M/ L 4.63-6.08 HEMOGLOBIN (BEAKER) (test jopv=843) 13.1 GM/DL 13.7-17.5 HEMATOCRIT (BEAKER) (test voxp=147) 43.3 % 40.1-51.0 MEAN CORPUSCULAR VOLUME (BEAKER) (test zyct=268) 95.6 fL 79.0-92.2 MEAN CORPUSCULAR HEMOGLOBIN (BEAKER) (test 28.9 pg 25.7-32.2 mndk=630) MEAN CORPUSCULAR HEMOGLOBIN CONC (BEAKER) (test 30.3 GM/DL 32.3-36.5 eofu=979) RED CELL DISTRIBUTION WIDTH (BEAKER) (test 13.5 % 11.6-14.4 zjng=225) PLATELET COUNT (BEAKER) (test cvnq=701) 236 K/CU MM 150-450 MEAN PLATELET VOLUME (BEAKER) (test offs=065) 11.4 fL 9.4-12.4 NUCLEATED RED BLOOD CELLS (BEAKER) (test 0 /100 WBC 0-0 iexl=022) NEUTROPHILS RELATIVE PERCENT (BEAKER) (test 73 % niai=239) LYMPHOCYTES RELATIVE PERCENT (BEAKER) (test 15 % qlsu=433) MONOCYTES RELATIVE PERCENT (BEAKER) (test 10 % ddxw=617) EOSINOPHILS RELATIVE PERCENT (BEAKER) (test 1 % ggew=645) BASOPHILS RELATIVE PERCENT (BEAKER) (test 1 % ydvf=757) NEUTROPHILS ABSOLUTE COUNT (BEAKER) (test 7.56 K/ L 1.78-5.38 kozr=909) LYMPHOCYTES ABSOLUTE COUNT (BEAKER) (test 1.60 K/ L 1.32-3.57 xnbe=924) MONOCYTES ABSOLUTE COUNT (BEAKER) (test 1.01 K/ L 0.30-0.82 diyb=836) EOSINOPHILS ABSOLUTE COUNT (BEAKER) (test 0.14 K/ L 0.04-0.54 iqre=888) BASOPHILS ABSOLUTE COUNT (BEAKER) (test 0.06 K/ L 0.01-0.08 zywa=985) IMMATURE GRANULOCYTES-RELATIVE PERCENT (BEAKER) 0 % 0-1 (test qsfh=2000) CT, [id number] 12:37:00CT abdomen pelvis with IV and PO [...] MDReport Verified Date/Time: 07/17/2018 12:37:32 Reading Location: [address] Body Reading Room CT, CHEST, WITH [id number] 12:37:00FINAL REPORT TECHNIQUE: CT of the [...] MDReport Verified Date/Time: 07/17/2018 12:37:32 Reading Location: [facility] C013Y CT Body Reading Room 12 :37 PMPOCT-GLUCOSE [id number] 12:31:00 Test Item Value Reference Range Comments POC-GLUCOSE METER (ZACHARY) 188 mg/dL 70-110 TESTED AT [facility] [address] [place] [address] (test fkij=3400) [facility] [address] CBC W/PLT COUNT & AUTO [id number] 12:21:00 Test Item Value Reference Range Comments WHITE BLOOD CELL COUNT (ZACHARY) (test cqnk=550) 10.1 K/ L 3.5-10.5 RED BLOOD CELL COUNT (BEAKER) (test omzq=429) 4.41 M/ L 4.63-6.08 HEMOGLOBIN (BEAKER) (test skcm=686) 13.1 GM/DL 13.7-17.5 HEMATOCRIT (BEAKER) (test wgbu=641) 42.6 % 40.1-51.0 MEAN CORPUSCULAR VOLUME (BEAKER) (test qzhh=813) 96.6 fL 79.0-92.2 MEAN CORPUSCULAR HEMOGLOBIN (BEAKER) (test 29.7 pg 25.7-32.2 rdla=998) MEAN CORPUSCULAR HEMOGLOBIN CONC (BEAKER) (test 30.8 GM/DL 32.3-36.5 iebq=810) RED CELL DISTRIBUTION WIDTH (BEAKER) (test 14.0 % 11.6-14.4 jdaq=219) PLATELET COUNT (BEAKER) (test pioe=594) 232 K/CU MM 150-450 MEAN PLATELET VOLUME (BEAKER) (test iaxo=178) 12.5 fL 9.4-12.4 NUCLEATED RED BLOOD CELLS (BEAKER) (test 0 /100 WBC 0-0 kyhu=972) NEUTROPHILS RELATIVE PERCENT (BEAKER) (test 73 % nhyt=372) LYMPHOCYTES RELATIVE PERCENT (BEAKER) (test 14 % khli=990) MONOCYTES RELATIVE PERCENT (BEAKER) (test 10 % gyza=504) EOSINOPHILS RELATIVE PERCENT (BEAKER) (test 1 % ywlk=069) BASOPHILS RELATIVE PERCENT (BEAKER) (test 1 % uxcd=685) NEUTROPHILS ABSOLUTE COUNT (BEAKER) (test 7.40 K/ L 1.78-5.38 bxdf=855) LYMPHOCYTES ABSOLUTE COUNT (BEAKER) (test 1.45 K/ L 1.32-3.57 cjmx=876) MONOCYTES ABSOLUTE COUNT (BEAKER) (test 1.01 K/ L 0.30-0.82 sioc=981) EOSINOPHILS ABSOLUTE COUNT (BEAKER) (test 0.13 K/ L 0.04-0.54 dvyk=633) BASOPHILS ABSOLUTE COUNT (BEAKER) (test 0.07 K/ L 0.01-0.08 zbxj=400) IMMATURE GRANULOCYTES-RELATIVE PERCENT (BEAKER) 0 % 0-1 (test vnih=1081) HEMOGLOBIN [id number] 10:07:00 Test Item Value Reference Range Comments HEMOGLOBIN A1C (BEAKER) (test fcty=494) 5.6 % 4.3-6.1 BASIC METABOLIC [id number] 06:33:00 Test Item Value Reference Range Comments SODIUM (BEAKER) (test 138 meq/L 136-145 kfdc=537) POTASSIUM (BEAKER) (test 3.4 meq/L 3.5-5.1 kscw=996) CHLORIDE (BEAKER) (test 105 meq/L 98-107 dpqd=580) CO2 (BEAKER) (test 24 meq/L 22-29 meas=898) BLOOD UREA NITROGEN 10 mg/dL 7-21 (BEAKER) (test rpvj=587) CREATININE (BEAKER) (test 0.80 mg/dL 0.57-1.25 aggg=493) GLUCOSE RANDOM (BEAKER) 122 mg/dL 70-105 (test uyou=079) CALCIUM (BEAKER) (test 8.5 mg/dL 8.4-10.2 uldk=308) EGFR (BEAKER) (test 121 mL/min/1.73 sq m ESTIMATED GFR IS NOT guhj=3487) ACCURATE CREATININE CLEARANCE IN PREDICTING GLOMERULAR FILTRATION RATE. ESTIMATED GFR IS NOT APPLICABLE FOR DIALYSIS PATIENTS. POCT-GLUCOSE [id number] 05:17:00 Test Item Value Reference Range Comments POC-GLUCOSE METER (BEAKER) 133 mg/dL 70-110 TESTED AT [address] (test oevj=2491) [place] [address] POCT-GLUCOSE [id number] 23:45:00 Test Item Value Reference Range Comments POC-GLUCOSE METER (BEAKER) 121 mg/dL 70-110 TESTED AT [address] (test ujfj=4977) [place] [id number] POCT-GLUCOSE [id number] 17:45:00 Test Item Value Reference Range Comments POC-GLUCOSE METER (BEAKER) 112 mg/dL 70-110 TESTED AT [address] (test vucv=9904) [place] [address] [id number] 14:30:00 Test Item Value Reference Range Comments ALBUMIN (BEAKER) (test vcsf=1116) 3.9 g/dL 3.5-5.0 POCT-GLUCOSE [id number] 12:40:00 Test Item Value Reference Range Comments POC-GLUCOSE METER (BEAKER) 110 mg/dL 70-110 TESTED AT [address] (test ikzk=0236) [place] [id number] POCT-GLUCOSE [id number] 08:32:00 Test Item Value Reference Range Comments POC-GLUCOSE METER (BEAKER) 137 mg/dL 70-110 TESTED AT [address] (test nyyp=4998) [place] [address] BASIC METABOLIC [id number] 06:10:00 Test Item Value Reference Range Comments SODIUM (BEAKER) (test 143 meq/L 136-145 jfum=684) POTASSIUM (BEAKER) (test 3.4 meq/L 3.5-5.1 jwwj=746) CHLORIDE (BEAKER) (test 105 meq/L 98-107 ngni=785) CO2 (BEAKER) (test 26 meq/L 22-29 euqo=339) BLOOD UREA NITROGEN 13 mg/dL 7-21 (BEAKER) (test iqlo=599) CREATININE (BEAKER) (test 0.96 mg/dL 0.57-1.25 slvj=011) GLUCOSE RANDOM (BEAKER) 90 mg/dL 70-105 (test otyj=060) CALCIUM (BEAKER) (test 9.1 mg/dL 8.4-10.2 bstv=673) EGFR (BEAKER) (test 98 mL/min/1.73 sq m ESTIMATED GFR IS NOT ldem=2773) ACCURATE CREATININE CLEARANCE IN PREDICTING GLOMERULAR FILTRATION RATE. ESTIMATED GFR IS NOT APPLICABLE FOR DIALYSIS PATIENTS. POCT-GLUCOSE [id number] 00:28:00 Test Item Value Reference Range Comments POC-GLUCOSE METER (BEAKER) 108 mg/dL 70-110 TESTED AT [address] (test opfn=3498) [place] [id number] POCT-GLUCOSE [id number] 00:28:00 Test Item Value Reference Range Comments POC-GLUCOSE METER (BEAKER) 107 mg/dL 70-110 TESTED AT [address] (test dzfy=6193) [place] [id number] POCT-GLUCOSE [id number] 17:40:00 Test Item Value Reference Range Comments POC-GLUCOSE METER (BEAKER) 137 mg/dL 70-110 TESTED AT [address] (test sifj=1314) [address], TUBE HAND[employer]ER IN OR/30 MINUTE [id number] 14:44:00INTRA OP IMAGINGReason for exam:->BOWEL OBSTRUCTIONFINAL REPORT Intraoperative fluoroscopy. CLINICAL HISTORY: BOWEL OBSTRUCTION.FINDINGS: Seven fluoroscopically acquired images were acquired by the referring physician. An intraoperative verbal report was not requested. Fluoroscopy was not performed by the undersigned. Fluoroscopy time: 129 seconds. Seven images. Signed: Rj Angel Verified Date/Time: 14:44:01 Reading Location: [facility] C013X Ortho Consult Reading Room POCT- GLUCOSE [id number] 12:28:00 Test Item Value Reference Range Comments POC-GLUCOSE METER (BEAKER) 154 mg/dL 70-110 TESTED AT [facility] [address] [facility] (test vqqy=8195) [facility] [address] CARCINOEMBRYONIC ANTIGEN (CEA)2018-07-15 11:45:00 Test Item Value Reference Range Comments CARCINOEMBRYONIC ANTIGEN (BEAKER) (test 766.0 ng/mL 0.0-5.0 uaen=946) RAD, CHEST, 1 VIEW, NON [id number] 11:43:00Reason for exam:->pnaShould this be performed at [...] Mixon Verified Date/Time: 2017 11:43:39 Reading Location: [facility] C013Y CT Body Reading Room HEPATIC FUNCTION [id number] 09:19:00 Test Item Value Reference Range Comments TOTAL PROTEIN (BEAKER) (test omme=036) 8.1 gm/dL 6.0-8.3 ALBUMIN (BEAKER) (test amsv=3363) 4.4 g/dL 3.5-5.0 BILIRUBIN TOTAL (BEAKER) (test qnrc=619) 0.6 mg/dL 0.2-1.2 BILIRUBIN DIRECT (BEAKER) (test ekba=140) 0.3 mg/dL 0.1-0.5 ALKALINE PHOSPHATASE (BEAKER) (test vsuk=619) 58 U/L 40-150 AST (SGOT) (BEAKER) (test kpzu=076) 16 U/L 5-34 ALT (SGPT) (BEAKER) (test gabc=354) 19 U/L 6-55 POCT-GLUCOSE [id number] 08:21:00 Test Item Value Reference Range Comments POC-GLUCOSE METER (BEAKER) 130 mg/dL 70-110 TESTED AT [address] (test crbz=2639) [facility] [address] RESPIRATORY PANEL [id number] 07:29:00 Test Item Value Reference Range Comments HUMAN METAPNEUMOVIRUS (BEAKER) (test Not detected Not detected, Equivocal rjvo=7794) RHINOVIRUS (BEAKER) (test voly=5878) Not detected Not detected, Equivocal INFLUENZA A (BEAKER) (test vegw=5777) Not detected Not detected, Equivocal INFLUENZA A (NO SUBTYPE) (test Not detected, Equivocal ieim=7032) INFLUENZA A SUBTYPE H1 (BEAKER) (test Not detected, Equivocal axsv=4938) INFLUENZA A SUBTYPE H3 (BEAKER) (test Not detected, Equivocal sfvd=6600) INFLUENZA A SUBTYPE H1-2009 (BEAKER) Not detected, Equivocal (test zfpe=5952) INFLUENZA B (BEAKER) (test wfpg=1344) Not detected Not detected, Equivocal RESPIRATORY SYNCYTIAL VIRUS (BEAKER) Not detected Not detected, Equivocal (test reuh=1169) PARAINFLUENZA VIRUS 1 (BEAKER) (test Not detected Not detected, Equivocal htnf=7278) PARAINFLUENZA VIRUS 2 (BEAKER) (test Not detected Not detected, Equivocal rslo=7034) PARAINFLUENZA VIRUS 3 (BEAKER) (test Not detected Not detected, Equivocal ifuw=0971) PARAINFLUENZA VIRUS 4 (BEAKER) (test Not detected Not detected, Equivocal svxz=3883) ADENOVIRUS (BEAKER) (test hgmm=1387) Not detected Not detected, Equivocal CORONAVIRUS 229E (BEAKER) (test Not detected Not detected, Equivocal jlwp=0488) CORONAVIRUS HKU1 (BEAKER) (test Not detected Not detected, Equivocal ahna=4534) CORONAVIRUS NL63 (BEAKER) (test Not detected Not detected, Equivocal pyib=0014) CORONAVIRUS OC43 (BEAKER) (test Not detected Not detected, Equivocal wvfe=7835) BORDETELLA PERTUSSIS (BEAKER) (test Not detected Not detected, Equivocal wpex=4796) CHLAMYDOPHILA PNEUMONIAE (BEAKER) (test Not detected Not detected, Equivocal efos=5698) MYCOPLASMA PNEUMONIAE (BEAKER) (test Not detected Not detected, Equivocal qlxg=8276) Other viruses and bacteria not targeted by [...] [facility] Laboratory using the [employer] Respiratory Panel. It is FDA cleared and has been verified and approved by the [facility] Molecular Diagnostics Laboratory for clinical use on nasal swab specimens. It is not FDA-cleared for use on bronchial wash/lavage samples. However, for this sample type, validation was performed and test characteristics were determined and approved, by [facility] for clinical use under the Clinical Laboratory Improvement Amendments (CLIA) of 1988 requirements. Therefore, FDA clearance isnot required. This laboratory is CLIA-certified and [employer] ([employer])-accredited to perform high complexity testing.LEGIONELLA ANTIGEN, [id number] 04:44:00 Test Item Value Reference Range Comments L. PNEUMOPHILA SEROGP 1 Negative - see Negative for L. UR AG (BEAKER) (test comment pneumophila serogroup 1 irgu=1447) antigen, suggesting no recent or current infection with this serogroup. Legionellosis cannot be ruled out since other serogroups and species may cause disease. STREP PNEUMONIAE [id number] 04:43:00 Test Item Value Reference Range Comments STREP PNEUMONIAE ANTIGEN Presumptive negative for Presumptive negative for (BEAKER) (test pneumococcal pneumonia - pneumococcal pneumonia - uadb=2061) see comment see commen Presumptive negative for pneumococcal pneumonia, suggesting no current or recent pneumococcal infection. Infection due to S. pneumoniae cannot be ruled out since the antigen present in the sample may be below the detection limit of the test.POCT-GLUCOSE [id number] 01:51:00 Test Item Value Reference Range Comments POC-GLUCOSE METER (BEAKER) 127 mg/dL 70-110 TESTED AT [facility] [address] [facility] (test vkek=3687) [facility] [address] BASIC METABOLIC [id number] 00:38:00 Test Item Value Reference Range Comments SODIUM (BEAKER) (test 136 meq/L 136-145 zvie=822) POTASSIUM (BEAKER) (test 3.3 meq/L 3.5-5.1 vquy=480) CHLORIDE (BEAKER) (test 101 meq/L 98-107 ptbp=292) CO2 (BEAKER) (test 22 meq/L 22-29 agfk=264) BLOOD UREA NITROGEN 11 mg/dL 7-21 (BEAKER) (test askh=231) CREATININE (BEAKER) (test 0.85 mg/dL 0.57-1.25 ztdi=414) GLUCOSE RANDOM (BEAKER) 114 mg/dL 70-105 (test vqbt=299) CALCIUM (BEAKER) (test 9.3 mg/dL 8.4-10.2 xqde=274) EGFR (BEAKER) (test 113 mL/min/1.73 sq m ESTIMATED GFR IS NOT zjod=9313) ACCURATE CREATININE CLEARANCE IN PREDICTING GLOMERULAR FILTRATION RATE. ESTIMATED GFR IS NOT APPLICABLE FOR DIALYSIS PATIENTS. RAPID INFLUENZA A&B [id number] 00:32:00 Test Item Value Reference Range Comments RAPID INFLUENZA A AG (BEAKER) (test Negative Negative, Inconclusive ezoh=1050) RAPID INFLUENZA B AG (BEAKER) (test Negative Negative, Inconclusive muzs=8513) CBC W/PLT COUNT & AUTO [id number] 22:58:00 Test Item Value Reference Range Comments WHITE BLOOD CELL COUNT (BEAKER) (test bwix=050) 10.9 K/ L 3.5-10.5 RED BLOOD CELL COUNT (BEAKER) (test urvo=176) 4.96 M/ L 4.63-6.08 HEMOGLOBIN (BEAKER) (test hndk=928) 14.5 GM/DL 13.7-17.5 HEMATOCRIT (BEAKER) (test tzds=569) 46.1 % 40.1-51.0 MEAN CORPUSCULAR VOLUME (BEAKER) (test esow=440) 92.9 fL 79.0-92.2 MEAN CORPUSCULAR HEMOGLOBIN (BEAKER) (test 29.2 pg 25.7-32.2 ifpg=975) MEAN CORPUSCULAR HEMOGLOBIN CONC (BEAKER) (test 31.5 GM/DL 32.3-36.5 fdzo=776) RED CELL DISTRIBUTION WIDTH (BEAKER) (test 13.9 % 11.6-14.4 mmhs=165) PLATELET COUNT (BEAKER) (test ebpv=867) 277 K/CU MM 150-450 MEAN PLATELET VOLUME (BEAKER) (test vqkv=382) 11.2 fL 9.4-12.4 NUCLEATED RED BLOOD CELLS (BEAKER) (test 0 /100 WBC 0-0 uthg=169) NEUTROPHILS RELATIVE PERCENT (BEAKER) (test 81 % ahom=336) LYMPHOCYTES RELATIVE PERCENT (BEAKER) (test 11 % ixns=835) MONOCYTES RELATIVE PERCENT (BEAKER) (test 7 % pltn=049) EOSINOPHILS RELATIVE PERCENT (BEAKER) (test 0 % uflc=660) BASOPHILS RELATIVE PERCENT (BEAKER) (test 0 % wmfj=500) NEUTROPHILS ABSOLUTE COUNT (BEAKER) (test 8.86 K/ L 1.78-5.38 kkjb=100) LYMPHOCYTES ABSOLUTE COUNT (BEAKER) (test 1.21 K/ L 1.32-3.57 zpxu=475) MONOCYTES ABSOLUTE COUNT (BEAKER) (test 0.79 K/ L 0.30-0.82 ofhz=421) EOSINOPHILS ABSOLUTE COUNT (BEAKER) (test 0.01 K/ L 0.04-0.54 fnnu=345) BASOPHILS ABSOLUTE COUNT (BEAKER) (test 0.02 K/ L 0.01-0.08 lsia=749) IMMATURE GRANULOCYTES-RELATIVE PERCENT (BEAKER) 1 % 0-1 (test mbbz=4544)
[2019-10-16] MEDS ORDERED: NA CHLORIDE 0.9% 1,000 ML ONE (10:26)
[2019-10-16 11:06] LABS: Absolute Lymphocytes (CBC) 1.4 K/uL (0.7-4.9); Basophils % 0.9 % (0-1.3); Hematocrit 43.6 % (39.6-49.0); Lymphocytes % 16.4 % (15.3-44.8); MPV 9.1 fL (7.6-11.3); RBC Red Blood Cell Count 4.59 M/uL (4.33-5.43)
[2019-10-16 11:07] LABS: Protime INR 1.27
[2019-10-16 11:19] LABS: ALT/SGPT 45 U/L (12-78); AST/SGOT 21 U/L (15-37); Albumin 3.7 g/dL (3.4-5.0); Alkaline Phosphatase 77 U/L (45-117); BUN Blood Urea Nitrogen 18 mg/dL (7-18); Bicarbonate 30 mmol/L (21-32); Bilirubin Direct 0.2 mg/dL (0-0.2); Bilirubin Total 0.5 mg/dL (0.2-1.0); Glucose Level 102 mg/dL (74-106); Magnesium 2.1 mg/dL (1.8-2.4); NT PRO-BNP 533 pg/mL (<125); Potassium 3.9 mmol/L (3.5-5.1); Protein, Total 8.2 g/dL (6.4-8.2); Sodium Level 141 mmol/L (136-145); Troponin (Emerg Dept Use Only) < 0.02 ng/mL (0.0-0.045)
--- NOTE | 2019-10-16 11:21 | RAD REPORT ---
EXAM DESCRIPTION: RAD - Chest Single View - 10/16/2019 10:49 am CLINICAL HISTORY: COUGH Chest pain. COMPARISON: Chest Single View dated 09/20/2019; Chest Single View dated 09/18/2019; Chest Single Vie w dated 09/10/2018; Chest Single View dated 07/14/2018 FINDINGS: Portable technique limits examination quality. Moderate right pleural effusion. Left lung is grossly clear. Right-sided port catheter has tip in the SVC. The heart is normal in size. No displaced fractures.
[2019-10-16 12:11] LABS: Urine Blood TRACE (NEG); Urine Glucose NEGATIVE (NEG); Urine Protein NEGATIVE (NEG); Urine Specific Gravity 1.015 (1.005-1.030)
--- NOTE | 2019-10-16 12:53 | ER ---
Nurse's Notes [facility] Name: Shai Gonzalez Jr Age: 58 yrs Sex: Male : 1960 Arrival Date: 10/16/2019 Time: 09:35 Bed 13 Private MD: Trent Santiago H Diagnosis: Dyspnea;Pleural effusion in conditions classified elsewhere-moderate right Presentation: 10/16 09:45 Presenting complaint: Patient states: difficulty breathing since they pulled fluid out iw of my back, 2 weeks ago, feels like there's fluid in his stomach. Transition of care: patient was not received from another setting of care. Onset of symptoms was October 03, 2019. Risk Assessment: Do you want to hurt yourself or someone else? Patient reports no desire to harm self or others. Initial Sepsis Screen: Does the patient meet any 2 criteria? No. Patient's initial sepsis screen is negative. Does the patient have a suspected source of infection? No. Patient's initial sepsis screen is negative. Care prior to arrival: None. 09:45 Method Of Arrival: Ambulatory iw 09:45 Acuity: MARIA INES 3 iw 10:15 Initial Sepsis Screen: Does the patient meet any 2 criteria? RR > 20 per min. HR > 90 iw bpm. Yes Does the patient have a suspected source of infection? No. Patient's initial sepsis screen is negative. Triage Assessment: 09:56 General: Appears in no apparent distress. comfortable, obese, Behavior is cooperative, iw appropriate for age, anxious. Pain: Denies pain. EENT: No deficits noted. Neuro: No deficits noted. Cardiovascular: Rhythm is sinus rhythm. Respiratory: Reports shortness of breath Airway is patent Respiratory effort is even, labored, Onset: The symptoms/episode began/occurred this morning, the patient has mild shortness of breath. GI: Abdomen is obese, Reports bloating. : No signs and/or symptoms were reported regarding the genitourinary system. Derm: No deficits noted. Musculoskeletal: No deficits noted. Historical: - Allergies: 09:48 No Known Allergies; iw - Home Meds: 09:48 Eliquis 5 mg Oral tab 1 tab 2 times per day [Active]; glimepiride 4 mg Oral tab 1 tab iw once daily [Active]; [place] 10-325 mg Oral tab 1 tab every 6 hours [Active]; sotalol 80 mg Oral tab 1 tab 2 times per day [Active]; Tradjenta 5 mg Oral tab 1 tab once daily [Active]; - PMHx: 09:48 ascites; Asthma; Back pain; colon cancer; Diabetes - NIDDM; Gout; Hypertension; iw - PSHx: 09:48 None; iw - Immunization history:: Adult Immunizations not up to date. - Social history:: Smoking status: Patient/guardian denies using tobacco. - Ebola Screening: : Patient negative for fever greater than or equal to 101.5 degrees Fahrenheit, and additional compatible Ebola Virus Disease symptoms Patient denies exposure to infectious person Patient denies travel to an Ebola-affected area in the 21 days before illness onset No symptoms or risks identified at this time. - Family history:: not pertinent. Screenin:58 Abuse screen: Denies threats or abuse. Denies injuries from another. Nutritional iw screening: No deficits noted. Tuberculosis screening: No symptoms or risk factors identified. Fall Risk None identified. Assessment: 09:57 General: SEE TRIAGE NOTE. Cardiovascular: Rhythm is sinus rhythm. Respiratory: Airway iw is patent Breath sounds are coarse bilaterally. 10:59 Reassessment: RESP COARSE BILATERALLY, ABDOMEN BLOATED BUT NOT TAUT. PT MAINTAINING bp SP02 ON ROOM AIR. 12:00 Reassessment: LAB RESULTS IN PROCESS, VS STABLE ON MONITOR. PT STILL AFFIRMS SOB. bp 13:00 Reassessment: ADMIT IN PROCESS. PT REMAINS TACHYCARDIC ON MONITOR. bp 15:00 Reassessment: PT SEEN BY ADMIT MD, BED ASSIGNMENT PENDING. iw 15:57 Reassessment: ADMIT COMPLETE. REPORT TO KINA MCGOWAN FOR 208. iw Vital Signs: 09:48 BP 138 / 94; Pulse 115; Resp 22 S; Temp 97.9; Pulse Ox 96% on R/A; Weight 144.7 kg; iw Height 5 ft. 11 in. (180.34 cm); Pain 7/10; 10:13 BP 137 / 91; Pulse 107; Resp 20; Pulse Ox 95% ; iw 10:58 BP 117 / 84; Pulse 101; Resp 24; Pulse Ox 94% ; bp 12:01 BP 123 / 82; Pulse 91; Resp 20; Temp 98.0(O); Pulse Ox 100% on R/A; 5 13:00 BP 106 / 73; Pulse 114; Resp 20; Pulse Ox 93% ; bp 14:00 BP 101 / 71; Pulse 103; Resp 20; Pulse Ox 95% ; bp 15:00 BP 124 / 70; Pulse 94; Resp 20; Pulse Ox 92% ; iw 15:58 BP 134 / 90; Pulse 105; Resp 20; Temp 98; Pulse Ox 100% ; iw 09:48 Body Mass Index 44.49 (144.70 kg, 180.34 cm) iw ED Course: 09:35 Patient arrived in ED. mr 09:36 Trent Santiago, is Private Physician. mr 09:47 Triage completed. iw 09:48 Arm band placed on. iw 09:56 Tresa Arizmendi, RN is Primary Nurse. iw 09:58 Deondre Quijano MD is Attending Physician. joao 09:58 Patient has correct armband on for positive identification. Placed in gown. Bed in low iw position. Call light in reach. Side rails up X2. 10:30 EKG done, by radar technician. reviewed by Deondre Quijano MD. at1 10:45 Inserted saline lock: 22 gauge in right hand, using aseptic technique. Blood collected. bp 10:50 XRAY Chest (1 view) In Process Unspecified. EDMS 12:50 Tavia Louis MD is Hospitalizing Provider. joao 16:00 No provider procedures requiring assistance completed. Patient admitted, IV remains in iw place. Administered Medications: 10:45 Drug: NS 0.9% 1000 ml Route: IV; Rate: 75 ml/hr; Site: right hand; bp 16:00 Follow up: IV Status: Infusion continued upon admission iw 13:10 Drug: SOLU-Medrol 125 mg Route: IVP; Site: right hand; bp 15:37 Follow up: Response: No adverse reaction iw 13:10 Drug: Xopenex 1.25 mg Route: Inhalation; bp 13:10 Drug: AtroVENT Aerosol 0.5 mg Route: Inhalation; bp Outcome: 12:52 Decision to Hospitalize by Provider. joao 15:59 Admitted to ER Hold. [facility] iw 15:59 Condition: stable 15:59 Instructed on the need for admit. 16:19 Patient left the ED. bp Signatures: Dispatcher [employer] EDNV Deondre Quijano MD MD cha Rivera, Mary mr Trsea Arizmendi, RN RN iw Vernell Navarrete, train caller EKG Tat1 Ching Price 5 Rojelio Garcia, RN RN bp Corrections: (The following items were deleted from the chart) 10:16 09:45 Initial Sepsis Screen: Does the patient meet any 2 criteria? No. Patient's iw initial sepsis screen is negative. Does the patient have a suspected source of infection? No. Patient's initial sepsis screen is negative. 14:45 14:00 Reassessment: ADMIT IN PROCESS. PT REMAINS TACHYCARDIC ON MONITOR. bp bp
--- NOTE | 2019-10-16 12:53 | EDPHYS ---
Physician Documentation [facility] Name: Shai Gonzalez Jr Age: 58 yrs Sex: Male : 1960 Arrival Date: 10/16/2019 Time: 09:35 Bed 13 Private MD: Trent Santiago H ED Physician Deondre Quijano HPI: 10/16 10:52 This 58 yrs old Black Male presents to ER via Ambulatory with complaints of Breathing joao Difficulty. 10:52 The patient has shortness of breath with light activity. Onset: The symptoms/episode joao began/occurred 2 day(s) ago. Duration: The symptoms are continuous, and are steadily getting worse. The patient's shortness of breath has no apparent modifying factors. Severity of symptoms: At their worst the symptoms were moderate in the emergency department the symptoms are unchanged. The patient has experienced similar episodes in the past, several times. Historical: - Allergies: 09:48 No Known Allergies; iw - Home Meds: 09:48 Eliquis 5 mg Oral tab 1 tab 2 times per day [Active]; glimepiride 4 mg Oral tab 1 tab iw once daily [Active]; [place] 10-325 mg Oral tab 1 tab every 6 hours [Active]; sotalol 80 mg Oral tab 1 tab 2 times per day [Active]; Tradjenta 5 mg Oral tab 1 tab once daily [Active]; - PMHx: 09:48 ascites; Asthma; Back pain; colon cancer; Diabetes - NIDDM; Gout; Hypertension; iw - PSHx: 09:48 None; iw - Immunization history:: Adult Immunizations not up to date. - Social history:: Smoking status: Patient/guardian denies using tobacco. - Ebola Screening: : Patient negative for fever greater than or equal to 101.5 degrees Fahrenheit, and additional compatible Ebola Virus Disease symptoms Patient denies exposure to infectious person Patient denies travel to an Ebola-affected area in the 21 days before illness onset No symptoms or risks identified at this time. - Family history:: not pertinent. ROS: 10:52 Constitutional: Negative for fever, chills, and weight loss, Eyes: Negative for injury, joao pain, redness, and discharge, ENT: Negative for injury, pain, and discharge, Neck: Negative for injury, pain, and swelling, Cardiovascular: Negative for chest pain, palpitations, and edema, Abdomen/GI: Negative for abdominal pain, nausea, vomiting, diarrhea, and constipation, Back: Negative for injury and pain, : Negative for injury, bleeding, discharge, and swelling, MS/Extremity: Negative for injury and deformity, Skin: Negative for injury, rash, and discoloration, Neuro: Negative for headache, weakness, numbness, tingling, and seizure, Psych: Negative for depression, anxiety, suicide ideation, homicidal ideation, and hallucinations, Allergy/Immunology: Negative for hives, rash, and allergies, Endocrine: Negative for neck swelling, polydipsia, polyuria, polyphagia, and marked weight changes, Hematologic/Lymphatic: Negative for swollen nodes, abnormal bleeding, and unusual bruising. 10:52 Respiratory: Positive for shortness of breath, at rest. Exam: 10:52 Constitutional: This is a well developed, well nourished patient who is awake, alert, joao and in no acute distress. Head/Face: Normocephalic, atraumatic. Eyes: Pupils equal round and reactive to light, extra-ocular motions intact. Lids and lashes normal. Conjunctiva and sclera are non-icteric and not injected. Cornea within normal limits. Periorbital areas with no swelling, redness, or edema. ENT: Nares patent. No nasal discharge, no septal abnormalities noted. Tympanic membranes are normal and external auditory canals are clear. Oropharynx with no redness, swelling, or masses, exudates, or evidence of obstruction, uvula midline. Mucous membranes moist. Neck: Trachea midline, no thyromegaly or masses palpated, and no cervical lymphadenopathy. Supple, full range of motion without nuchal rigidity, or vertebral point tenderness. No Meningismus. Chest/axilla: Normal chest wall appearance and motion. Nontender with no deformity. No lesions are appreciated. Cardiovascular: Regular rate and rhythm with a normal S1 and S2. No gallops, murmurs, or rubs. Normal PMI, no JVD. No pulse deficits. Abdomen/GI: Soft, non-tender, with normal bowel sounds. No distension or tympany. No guarding or rebound. No evidence of tenderness throughout. Back: No spinal tenderness. No costovertebral tenderness. Full range of motion. Male : Normal genitalia with no discharge or lesions. Skin: Warm, dry with normal turgor. Normal color with no rashes, no lesions, and no evidence of cellulitis. Neuro: Awake and alert, GCS 15, oriented to person, place, time, and situation. Cranial nerves II-XII grossly intact. Motor strength 5/5 in all extremities. Sensory grossly intact. Cerebellar exam normal. Normal gait. Psych: Awake, alert, with orientation to person, place and time. Behavior, mood, and affect are within normal limits. 10:52 Respiratory: mild respiratory distress is noted, moderate respiratory distress is noted, Respirations: labored breathing, that is mild, Breath sounds: decreased breath sounds, that are moderate, are heard in the right middle lobe, right lower lobe, right posterior middle lobe and right posterior lower lobe. Vital Signs: 09:48 BP 138 / 94; Pulse 115; Resp 22 S; Temp 97.9; Pulse Ox 96% on R/A; Weight 144.7 kg; iw Height 5 ft. 11 in. (180.34 cm); Pain 7/10; 10:13 BP 137 / 91; Pulse 107; Resp 20; Pulse Ox 95% ; iw 10:58 BP 117 / 84; Pulse 101; Resp 24; Pulse Ox 94% ; bp 12:01 BP 123 / 82; Pulse 91; Resp 20; Temp 98.0(O); Pulse Ox 100% on R/A; mh5 13:00 BP 106 / 73; Pulse 114; Resp 20; Pulse Ox 93% ; bp 14:00 BP 101 / 71; Pulse 103; Resp 20; Pulse Ox 95% ; bp 15:00 BP 124 / 70; Pulse 94; Resp 20; Pulse Ox 92% ; iw 15:58 BP 134 / 90; Pulse 105; Resp 20; Temp 98; Pulse Ox 100% ; iw 09:48 Body Mass Index 44.49 (144.70 kg, 180.34 cm) MDM: 09:[address] [facility] 10:55 Data reviewed: vital signs, nurses notes, lab test result(s), EKG, radiologic studies, joao plain films. 10/16 09:58 Order name: Basic Metabolic Panel; Complete Time: 12:46 joao 10/16 09:58 Order name: CBC with Diff; Complete Time: 12:46 [facility] 10/16 09:58 Order name: LFT's; Complete Time: 12:46 [facility] 10/16 09:58 Order name: Magnesium; Complete Time: 12:46 joao 10/16 09:58 Order name: NT PRO-BNP; Complete Time: 12:46 joao 10/16 09:58 Order name: PT-INR; Complete Time: 12:46 joao 10/16 09:58 Order name: Troponin (emerg Dept Use Only); Complete Time: 12:46 joao 10/16 09:58 Order name: Blood Culture Adult (2) joao 10/16 10:57 Order name: Urine Dipstick--Ancillary (enter results); Complete Time: 12:46 bd 10/16 15:00 Order name: CBC with Automated Diff EDMS 10/16 15:00 Order name: CBC with Automated Diff EDMS 10/16 15:00 Order name: CBC with Automated Diff EDMS 10/16 15:00 Order name: CBC with Automated Diff EDMS 10/16 15:00 Order name: CBC with Automated Diff EDMS 10/16 09:58 Order name: XRAY Chest (1 view); Complete Time: 12:46 joao 10/16 15:00 Order name: CBC with Automated Diff EDMS 10/16 15:00 Order name: Comprehensive Metabolic Panel EDMS 10/16 15:00 Order name: Comprehensive Metabolic Panel EDMS 10/16 15:00 Order name: Comprehensive Metabolic Panel EDMS 10/16 15:00 Order name: Comprehensive Metabolic Panel EDMS 10/16 15:00 Order name: Magnesium EDMS 10/16 15:00 Order name: Magnesium EDMS 10/16 15:00 Order name: Magnesium EDMS 10/16 15:00 Order name: Magnesium EDMS 10/16 15:00 Order name: Magnesium EDMS 10/16 15:00 Order name: Magnesium EDMS 10/16 09:58 Order name: EKG; Complete Time: 09:59 joao 10/16 09:58 Order name: Cardiac monitoring; Complete Time: 10:13 joao 10/16 09:58 Order name: EKG - Nurse/Tech; Complete Time: 10:13 joao 10/16 09:58 Order name: IV Saline Lock; Complete Time: 10:00 joao 10/16 09:58 Order name: Labs collected and sent; Complete Time: 10:59 joao 10/16 09:58 Order name: O2 Per Protocol; Complete Time: 10:13 joao 10/16 09:58 Order name: O2 Sat Monitoring; Complete Time: 10:13 [facility] 10/16 09:58 Order name: Urine Dipstick-Ancillary (obtain specimen); Complete Time: 10:59 [facility] 10/16 14:58 Order name: CONS Pharmacy Consult EDMS 10/16 15:00 Order name: CONS Physician Consult EDMS Administered Medications: 10:45 Drug: NS 0.9% 1000 ml Route: IV; Rate: 75 ml/hr; Site: right hand; bp 16:00 Follow up: IV Status: Infusion continued upon admission iw 13:10 Drug: SOLU-Medrol 125 mg Route: IVP; Site: right hand; bp 15:37 Follow up: Response: No adverse reaction iw 13:10 Drug: Xopenex 1.25 mg Route: Inhalation; bp 13:10 Drug: AtroVENT Aerosol 0.5 mg Route: Inhalation; bp Disposition: 10/16/19 12:52 Hospitalization ordered by Tavia Louis for Inpatient Admission. Preliminary diagnosis are Dyspnea, Pleural effusion in conditions classified elsewhere - moderate right. - Bed requested for Telemetry/MedSurg (Inpatient). - Status is Inpatient Admission. bp - Condition is Fair. - Problem is new. - Symptoms have improved. UTI on Admission? No Signatures: Dispatcher [employer] EDIL Caridad Fisher Corey, MD MD cha Williams, Irene, RN RN Rojelio Garcia RN RN bp Corrections: (The following items were deleted from the chart) 15:40 12:52 Hospitalization Ordered by Tavia Louis MD for Inpatient Admission. Preliminary bd diagnosis is Dyspnea; Pleural effusion in conditions classified elsewhere - moderate right. Bed requested for Telemetry/MedSurg (Inpatient). Status is Inpatient Admission. Condition is Fair. Problem is new. Symptoms have improved. UTI on Admission? No. joao 15:41 15:40 10/16/2019 12:52 Hospitalization Ordered by Tavia Louis MD for Inpatient bd Admission. Preliminary diagnosis is Dyspnea; Pleural effusion in conditions classified elsewhere - moderate right. Bed requested for Telemetry/MedSurg (Inpatient). Status is Inpatient Admission. Condition is Fair. Problem is new. Symptoms have improved. UTI on Admission? No. bd 16:19 15:41 10/16/2019 12:52 Hospitalization Ordered by Tavia Louis MD for Inpatient bp Admission. Preliminary diagnosis is Dyspnea; Pleural effusion in conditions classified elsewhere - moderate right. Bed requested for Telemetry/MedSurg (Inpatient). Status is Inpatient Admission. Condition is Fair. Problem is new. Symptoms have improved. UTI on Admission? No. bd
[2019-10-16] MEDS ORDERED: METHYLPREDNISOLONE 125 MG INJ ONE (13:09)
[2019-10-16] MEDS ORDERED: LEVALBUTEROL 1.25 MG/3 ML NEB ONE (13:09)
[2019-10-16] MEDS ORDERED: IPRATROPIUM BROM 0.5MG/2.5ML ONE (13:09)
[2019-10-16] MEDS ORDERED: ONDANSETRON 4 MG/2 ML VIAL IV PRN (14:55)
--- NOTE | 2019-10-16 14:59 | P.HP ---
Certification for Inpatient Patient admitted to: Observation Practitioner: I am a practitioner with admitting privileges, knowledge of patient current condition, hospital course, and medical plan of care. Services: Services provided to patient in accordance with Admission requirements found in Title 42 Section 412.3 of the Code of Federal Regulations Patient History Date of Service: 10/16/19 Reason for admission: Shortness of breath History of Present Illness: Mr. Lemos a 68-year-old male with a history of metastatic colon cancer, gout , hypertension who presented to the ER with complaints of 5 days history of progressive shortness of breath. Patient was seen in September 2019 for similar complaints. He had moderate right pleural effusion and underwent thoracentesis. Patient was discharged in a stable condition. He follows up with oncologist [facility]. Patient's shortness of breath is worse with exertion. He denies any fevers nor chills. Allergies No Known Allergies Allergy (Unverified 12/26/11 06:20) - Past Medical/Surgical History Diabetic: Yes -: gout -: HTN -: cataracts -: DM -: colon cancer -: L knee surgery -: hip abscess removal - Family History Mother -: Hypertension Father -: Cancer Notes: throat cancer - Social History Alcohol use: No CD- Drugs: No Caffeine use: Yes Review of Systems 10-point ROS is otherwise unremarkable Respiratory: Shortness of Breath Gastrointestinal: Constipation Physical Examination - Physical Exam General: Alert, In no apparent distress HEENT: Atraumatic, PERRLA, Mucous membr. moist/pink, EOMI, Sclerae nonicteric Neck: Supple, 2+ carotid pulse no bruit, No LAD, Without JVD or thyroid abnormality Respiratory: Clear to auscultation bilaterally, Normal air movement, Diminished (Right) Cardiovascular: Regular rate/rhythm, Normal S1 S2 Gastrointestinal: Normal bowel sounds, No tenderness Musculoskeletal: No tenderness Integumentary: No rashes Neurological: Normal gait, Normal speech, Normal strength at 5/5 x4 extr, Normal tone, Normal affect Lymphatics: No axilla or inguinal lymphadenopathy - Studies Laboratory Data (last 24 hrs) 10/16/19 10:45: PT 14.8 H, INR 1.27 10/16/19 10:45: WBC 8.7, Hgb 14.4, Hct 43.6, Plt Count 283 10/16/19 10:45: Sodium 141, Potassium 3.9, BUN 18, Creatinine 1.03, Glucose 102 , Magnesium 2.1, Total Bilirubin 0.5, AST 21, ALT 45, Alkaline Phosphatase 77 Imagings Data: FINDINGS: Portable technique limits examination quality. Moderate right pleural effusion. Left lung is grossly clear. Right-sided port catheter has tip in the SVC. The heart is normal in size. No displaced fractures. Assessment and Plan - Plan Mr. Lemos is a 52-year-old with metastatic lung cancer presenting with a shortness of breath. #Shortness of breath, likely secondary to pleural effusion. patient is saturating greater than 90 percentile on room air. -rule out other etiology - no evidence of acute infection #Moderate right pleural effusion- recurrent. Cannot rule out malignancy related. Patient would benefit from thoracentesis. -We will obtain pulmonary consultation. - Continue supplemental oxygen. #Essential hypertension, stable. #Metastatic lung ca- follows up with oncologist outpatient. will defer management to his primary oncology team - r/o acute obstruction given reported constipation -KUB #DM- BG AC & HS and cover with ISS - check hgba1c #Gout. We will continue home medications as appropriate. Home meds yet to be uploaded to MAR DVT ppx- lovenox. Patient is full code. His at bedside is NOK. - Advance Directives Does patient have a Living Will: No Does patient have a Durable POA for Healthcare: No
[2019-10-16 16:35] VITALS: BMI 43.5
[2019-10-16] MEDS: MORPHINE 2 MG/ML SYR IV PRN (16:44)
[2019-10-16] MEDS ORDERED: D50W 25 GM/50 ML SYRINGE/VIAL IV PRN (16:56)
[2019-10-16] MEDS ORDERED: GLUCAGON 1 MG/VIAL IM PRN (16:56)
[2019-10-16 17:34] LABS: Absolute Lymphocytes (CBC) 0.9 K/uL (0.7-4.9); Basophils % 0.4 % (0-1.3); Lymphocytes % 9.4 % (15.3-44.8); MPV 9.1 fL (7.6-11.3); RBC Red Blood Cell Count 4.56 M/uL (4.33-5.43)
--- NOTE | 2019-10-16 18:30 | RAD REPORT ---
EXAM DESCRIPTION: RAD - Abdomen 1 View (KUB) - 10/16/2019 6:10 pm CLINICAL HISTORY: constipation. h/o metastatic colon ca. r/o obstruc Pain COMPARISON: No comparisons FINDINGS: The bowel gas pattern is non-obstructive. No evidence of free air or pneumatosis. No suspi cious calcifications. No significant bony findings. Colonic stent is noted on the left. IMPRESSION: Negative examination.
[2019-10-16 18:44] LABS: Urine White Blood Cell Casts OK
[2019-10-16 18:45] LABS: Blood Morphology Comment NOTED (NOT SEEN); Platelet Estimate ADEQ; Poikilocytosis 1+
--- NOTE | 2019-10-16 20:56 | EKG ---
Test Date: 2019-10-16 Test Time: 10:09:51 Death Claim Examiner: SILVANO MEASUREMENT RESULTS: Intervals: Rate: 101 MN: QRSD: 74 QT: 338 QTc: 438 [place]: P: MN: QRS: 32 T: 73 INTERPRETIVE STATEMENTS: Atrial flutter with variable AV block Nonspecific T wave abnormality Abnormal ECG Compared to ECG 09/27/2019 08:01:06 T-wave abnormality now present ST (T wave) deviation no longer present Possible ischemia no longer present Electronically Signed On 10-16-19 20:54:53 [employer] by Slick Velásquez
[2019-10-16] MEDS: INSULIN -REGULAR HUMAN 50 UNIT/0.5 ML ML SQ SCH (21:27)
[2019-10-17] MEDS: MORPHINE 2 MG/ML SYR IV PRN ×2 (04:20→12:26)
[2019-10-17 05:38] LABS: Urine Appearance CLEAR; Urine Blood NEGATIVE (NEG); Urine Color DK YELLOW; Urine Glucose 2+ (NEG); Urine Protein NEGATIVE (NEG); Urine Specific Gravity 1.025 (1.005-1.030); Urine pH 5.5 (5.0-7.0)
[2019-10-17 05:51] LABS: Absolute Lymphocytes (CBC) 1.3 K/uL (0.7-4.9); Basophils % 0.6 % (0-1.3); Hematocrit 41.9 % (39.6-49.0); Lymphocytes % 12.8 % (15.3-44.8); RBC Red Blood Cell Count 4.38 M/uL (4.33-5.43)
[2019-10-17 06:13] LABS: Albumin 3.4 g/dL (3.4-5.0); Bilirubin Total 0.4 mg/dL (0.2-1.0); Magnesium 2.2 mg/dL (1.8-2.4); Potassium 4.2 mmol/L (3.5-5.1); Protein, Total 7.8 g/dL (6.4-8.2)
[2019-10-17 06:25] LABS: Urine Bilirubin NEGATIVE (NEG); Urine Microscopic Reflex NO UMIC
[2019-10-17 06:44] VITALS: O2SAT 93
[2019-10-17] MEDS: INSULIN -REGULAR HUMAN 50 UNIT/0.5 ML ML SQ SCH ×2 (07:30→11:30)
--- NOTE | 2019-10-17 11:15 | P.PN ---
Subjective Date of Service: 10/17/19 Chief Complaint: Shortness of breath Patient was seen and examined at bedside. Denies any new complaints. Continues to be short of breath. Physical Examination - Vital Signs Temperature: 97.6 F Blood Pressure: 119/80 Pulse: 112 Respirations: 20 Pulse Ox (%): 96 - Physical Exam General: Alert, In no apparent distress HEENT: Atraumatic, PERRLA, EOMI Neck: Supple, JVD not distended Respiratory: Diminished Cardiovascular: Regular rate/rhythm, Normal S1 S2 Gastrointestinal: Normal bowel sounds, No tenderness Musculoskeletal: No tenderness Integumentary: No rashes Neurological: Normal speech, Normal tone, Normal affect Lymphatics: No axilla or inguinal lymphadenopathy - Studies Laboratory Data (last 24 hrs) 10/16/19 10:45: PT 14.8 H, INR 1.27 10/16/19 10:45: Sodium 141, Potassium 3.9, BUN 18, Creatinine 1.03, Glucose 102 , Magnesium 2.1, Total Bilirubin 0.5, AST 21, ALT 45, Alkaline Phosphatase 77 Medications List Reviewed: Yes Assessment And Plan - Plan Mr. Lemos is a 52-year-old with metastatic lung cancer presenting with a shortness of breath. #Shortness of breath, likely secondary to pleural effusion. patient is saturating greater than 90 percentile on room air. -rule out other etiology - no evidence of acute infection #Moderate right pleural effusion- recurrent. Based on previous urine analysis, malignancy related. -Patient may benefit from thoracentesis. Discussed with IR, obtain chest US to quantify further. -patient will need a close follow up with his oncologist. Discussed with primary oncologist team, patient will follow up all for possible referral to CT surgeon. -hold off on pleurx cath as patient is still undergoing chemotherapy -Pulmonary consultation, recommendation appreciated -Continue supplemental oxygen as needed. #Essential hypertension, stable. #Metastatic colon ca- follows up with oncologist outpatient. will defer management to his primary oncology team -intermittent constipation, relieved with laxative. # DM-controlled. Hemoglobin A1c of 6.2% - BG AC & HS and cover with ISS #Gout- We will continue home medications as appropriate. DVT ppx- lovenox. Patient is full code. His at bedside is NOK.
--- NOTE | 2019-10-17 13:04 | P.CNS ---
Date of Consult: 10/17/19 Reason for Consult: Pleural effusion Chief Complaint: Shortness of breath History of Present Illness: Patient is 58 years of age with metastatic colon cancer was admitted in September with effusion status post thoracentesis lymphocytic predominant and was discharged came back again with 3 4 day history of worsening dyspnea denies any fever chills or chest pain still undergoing chemotherapy Allergies No Known Allergies Allergy (Unverified 12/26/11 06:20) Home Medications: Amlodipine [Norvasc] 10 mg PO [id number] 10/16/19 Apixaban [Eliquis] 5 mg PO BID 6AM 6PM 10/16/19 Cyclobenzaprine [Flexeril] 10 mg PO [id number] 10/16/19 Furosemide 20 mg PO [id number] 10/16/19 Glimepiride 4 mg PO [id number] 10/16/19 Insulin NPH Hum/Reg Insulin Hm [Novolin 70-30 Flexpen] 30 unit SQ BID 6AM 6PM Linagliptin [Tradjenta] 5 mg PO [id number] 10/16/19 Sotalol HCl [Betapace] 80 mg PO BID 6AM 6PM 10/16/19 Tamsulosin HCl 0.4 mg PO [id number] 10/16/19 - Past Medical/Surgical History Diabetic: Yes -: gout -: HTN -: cataracts -: DM -: colon cancer -: L knee surgery -: hip abscess removal - Family History Mother Medical History: Hypertension Father Medical History: Cancer Notes: throat cancer - Social History Smoking Status: Former smoker, Unknown if ever smoked Alcohol use: No CD- Drugs: No Caffeine use: Yes Place of Residence: Home Review of Systems 10-point ROS is otherwise unremarkable General: Weakness Respiratory: Shortness of Breath Physical Examination Temp Pulse Resp BP Pulse Ox 97.6 F 112 H 20 119/80 95 10/17/19 11:15 10/17/19 11:15 10/17/19 12:26 10/17/19 11:15 10/17/19 12:26 General: Alert, Oriented x3 HEENT: Atraumatic Neck: Supple Respiratory: Diminished (Diminished air entry on the right side) Cardiovascular: No edema, Regular rate/rhythm, Normal S1 S2 Gastrointestinal: Normal bowel sounds, Soft and benign - Problems (1) Pleural effusion Current Visit: No Status: Acute Plan: Patient is 50s is 80 years of age admitted with recurrent shortness of breath recurrent right-sided pleural effusion metastatic colon cancer status post chemotherapy vital signs are satisfactory last thoracentesis was done mid September showed a lymphocytic predominant effusion exudative with negative cytology most likely had some malignant the hospitalist discuss with the oncology plan to do a thoracentesis discharged patient back to the oncologist for them to do a possible vats evaluation PleurX catheter would be contraindicated in view of active chemotherapy chemistries reviewed no evidence of sepsis Dc all antibiotics patient is on Eliquis niece to hold that for at least 24 hr
--- NOTE | 2019-10-17 13:21 | RAD REPORT ---
EXAM DESCRIPTION: US - Chest - 10/17/2019 1:06 pm CLINICAL HISTORY: evaluate pleural effusion COMPARISON: Chest Single View dated 10/16/2019 FINDINGS: Real-time sonography of the right chest was performed to evaluate pleural effusion. A smal l volume pleural effusion is present. Moderate atelectatic lung is seen in the right lung base. IMPRESSION: Small volume right pleural effusion is noted with right lower lobe atelectasis present.
--- NOTE | 2019-10-17 14:07 | P.DS ---
Admission Date: 10/16/19 Discharge Date: 10/17/19 Disposition: ROUTINE DISCHARGE Discharge Condition: GOOD Reason for Admission: Shortness of breath Consultations: [employer]ing Machine [employer]ter Brief History of Present Illness: Mr. Lemos a 68-year-old male with a history of metastatic colon cancer, gout , hypertension who presented to the ER with complaints of 5 days history of progressive shortness of breath. Patient was seen in September 2019 for similar complaints. He had moderate right pleural effusion and underwent thoracentesis. Patient was discharged in a stable condition. [facility]. Patient's shortness of breath is worse with exertion. He denies any fevers nor chills. Hospital Course: Mrr. Lemos a 68-year-old male with a history of metastatic colon cancer Currently on chemotherapy, gout, hypertension, afib on OAC who presented to the ER with complaints of 5 days history of progressive shortness of breath. Initial evaluation was concerning for moderate pleural effusion noted on the right. Patient was recently admitted to the hospital for same reason, presented with shortness of breath, underwent thoracentesis. Fluid analysis was concerning for malignancy related that had predominant lymphocytic cells. Cytology was however negative. Patient was admitted and evaluated for recurrent pleural effusion. He was placed on diuretics and repeat chest ultrasound showed pleural effusion to be small. He did improve and denied any shortness of breath. Chemotherapy is contraindication for pleurx catheter Placement, discussed with patient's primary oncologist. the plan is for the patient to follow up with the primary oncologist for evaluation by CT surgeon for possible VATS if pleural effusion is indeed recurrent. He remained hemodynamically stable for discharge. Vital Signs/Physical Exam: Temp Pulse Resp BP Pulse Ox 97.6 F 112 H 19 119/80 96 10/17/19 11:15 10/17/19 11:15 10/17/19 12:56 10/17/19 11:15 10/17/19 12:56 Laboratory Data at Discharge: WBC 9.9 K/uL (4.3-10.9) 10/17/19 05:24 Hgb 13.7 g/dL (13.6-17.9) 10/17/19 05:24 Hct 41.9 % (39.6-49.0) 10/17/19 05:24 Plt Count 293 K/uL (152-406) 10/17/19 05:24 PT 14.8 SECONDS (9.5-12.5) H 10/16/19 10:45 INR 1.27 10/16/19 10:45 Sodium 142 mmol/L (136-145) 10/17/19 05:24 Potassium 4.2 mmol/L (3.5-5.1) 10/17/19 05:24 BUN 25 mg/dL (7-18) H 10/17/19 05:24 Creatinine 1.10 mg/dL (0.55-1.3) 10/17/19 05:24 Glucose 156 mg/dL (74-106) H 10/17/19 05:24 Magnesium 2.2 mg/dL (1.8-2.4) 10/17/19 05:24 Total Bilirubin 0.4 mg/dL (0.2-1.0) 10/17/19 05:24 AST 11 U/L (15-37) L 10/17/19 05:24 ALT 36 U/L (12-78) 10/17/19 05:24 Alkaline Phosphatase 70 U/L (45-117) 10/17/19 05:24 Home Medications: Amlodipine [Norvasc*] 10 mg PO [id number] 10/16/19 Apixaban [Eliquis] 5 mg PO BID 6AM 6PM 10/16/19 Cyclobenzaprine [Flexeril*] 10 mg PO [id number] 10/16/19 Furosemide 20 mg PO [id number] 10/16/19 Glimepiride 4 mg PO [id number] 10/16/19 Insulin NPH Hum/Reg Insulin Hm [Novolin 70-30 Flexpen] 30 unit SQ BID 6AM 6PM Linagliptin [Tradjenta] 5 mg PO [id number] 10/16/19 Sotalol HCl [Betapace*] 80 mg PO BID 6AM 6PM 10/16/19 Tamsulosin HCl 0.4 mg PO [id number] 10/16/19 Diet: ADA Activity: Ad naida Followup: Perez Goddard MD [ACTIVE - CAN ADMIT] - (please call to make an appointment. ) Kyle Hernandez MD [OUTSIDE PHYSICIAN] -
[2019-10-17 15:17] VITALS: BP 135/85; TEMP 97
[2019-10-17] MEDS ORDERED: SOTALOL HCL 80 MG TAB PO SCH (18:00)
== END 2019-10-17 14:44 | disposition home or self-care (01) ==
LOC: ER 09:32 → ERHOLD 14:56 → 2ND 15:58
PROVIDERS: ADMIT Hospitalist; ATTEND Hospitalist
DX: J90 Pleural effusion, not elsewhere classified (principal); I10 Essential (primary) hypertension; M10.9 Gout, unspecified; I48.91 Unspecified atrial fibrillation; Z79.01 Long term (current) use of anticoagulants; Z85.038 Personal history of other malignant neoplasm of large intestine; E11.9 Type 2 diabetes mellitus without complications
CPT/HCPCS: 96361; 93005; 87040 ×2; 85025 ×3; 80048; 36415 ×2; 83735 ×3; 85610; 82947 ×4; 80076; 81003 ×2; 83036; 84484; 80053; 83880; 74018; 71045; 76604; 96374; 99285; J2270 ×3; J7030; J2930; G0378 ×3

== ENCOUNTER 2019-11-26 17:32 | Observation (INO) | payer OTHER ==
--- OUTSIDE RECORDS SUMMARY | 2019-11-26 17:36 | XMS REPORT ---
:1960 Author Organization [facility] Address [address] [place] [address] [address]. [address] [place] [address] Care Team Providers Name Role Phone JOSE J IRIZARRY Unavailable Unavailable MARLYS SOLITARIO Unavailable Unavailable ABDIRASHID SPARKS Unavailable Unavailable MARYAM ALVARADO Unavailable Unavailable Problems This patient has no known problems. Allergies, Adverse Reactions, Alerts This patient has no known allergies or adverse reactions. Medications This patient has no known medications. Results Test Description Test Time Test Comments Text Results Atomic Results Result Comments CYTOLOGY 2019-10-30 Medical Cytology Report 16:03:00 Case: [id number] Authorizing Provider: Nima Carranza MD Collected: 10/27/2019 1635 Ordering Location: [address] Received: 10/29/2019 1009 Service Pathologist: Charo Brar MD Specimen: Pleural, Right RIGHT PLEURAL FLUID (CYTOSPINS AND CELL BLOCK): - VERY RARE ATYPICAL CELLS PRESENT (see comment) Signing Pathologist Direct Phone Line: [phone] signed by Charo Brar MD on 10/30/2019 at 4:03 PMPlease also see cytopathology report [id number].The rare atypical cells noted in this current sample are less than those reportedly noted in the sample previous, [id number]. Please see that report for additional information.Additional testing on this small amount of material does not appear prudent at this time.02561, 36469Eoebk pleural effusion; HTN, DM, Afib/Aflutter, stage IV colon adenocarcinoma treated by Dr. Solitario with FOLFOX and most recently single agent 5FU admitted with SOB + dry cough requiring thoracocentesis for R malignant pleural effusion.RIGHT PLEURAL FLUIDReceived 1100 ml brown fluidPrepared cell block(A2) using collodion bag and 4 cytospinsCollected: [id number]: [id number]. U/S, THORACENTESIS 2019-10-30 Laterality?->[facility] FINAL REPORT PATIENT ID: 14:02:00 Lauren cabello [id number] Exam: Ultrasound exam:->suspected guided thoracentesis Clinical malignant pleural History: Right-sided Pleural effusionLabs to Effusion Human Resources Project Coordinator: manju Senior PA-C Ordered:->Body Supervising Physician: Jan Hanna MD Consent: Benefits (w/Gram Stain, and risks were explained to the C\\T\\S)Labs to be patient who gave consent to the Ordered:->Glucose procedure. Complication: None +LDH+ProteinLabs Immediate Procedure: The to be patient was placed in sitting Ordered:->Cytolog position. The right posterior y chest was prepped and draped in usual sterile fashion. 2% lidocaine was used as local anesthetic. Under ultrasound guidance, a thoracentesis catheter was inserted into the pleural cavity. Approximately 1250 cc of serosanguineous pleural fluid was aspirated. The catheter was removed. The specimen was sent to the laboratory for further analysis. The patient tolerated the procedure well without any adverse reaction. A STAT chest x-ray was ordered. The patient left the department in stable condition. Impression: Ultrasound guided right sided thoracentesis. Signed: Jan Hanna MDReport Verified Date/Time: 10/30/2019 14:02:14 Reading Location: [address] Ultrasound Reading Room LOGY 2019-10-30 Medical Cytology Report 11:52:00 Case: [id number] Authorizing Provider: Nima Carranza MD Collected: 10/25/2019 4163 Ordering Location: [address] Received: 10/26/2019 0959 Service Pathologist: Taylor Kessler MD Specimen: Pleural, Right RIGHT PLEURAL FLUID (CYTOSPINS AND CELL BLOCK): - FEW ATYPICAL CELLS CONSISTENT WITH METASTATIC CARCINOMA (SEE COMMENT) Preliminary result electronically signed by Taylor Kessler MD on 10/26/2019 at 3:49 PMRare single atypical cells are seen and the immunohistochemical features and history of metastatic colon cancer favor malignant cells of colonic origin. Due to the overall paucity of atypical cells, cytologic examination of any recurrent pleural effusions is recommended.16422, 48703, 54517 x 1, 89540 x 89 y.o. man with hx of Stage IV colon cancer with omental metastases (dx 07/2018, s/p FOLFOX and 5FU chemotherapy) c/b prior large bowel obstruction (s/p stent placement), reported to have malignant pleural effusions (recent thoracentesis 09/2019), and malignant ascitesRIGHT PLEURAL FLUIDReceived 1100 mls bloody fluid; Prepared 4 cytospins, cell block(A2) using MediaBrixodion bagCollected: [id number]: [id number].SatisfactoryThe interpretation of this case included the use of immunohistochemistry or special stains on cell block.MOC31- few positive cellsCDX2-few positive cellsTTF1-negativeCalretinin- few positive cells in backgroundControl Slides Examined: In-house known positive controls were evaluated along with the test tissue. These control slides run alongside of the patients sample show appropriate staining. Internal positive and negative controls when available are evaluated Immunohistochemistry technical testing was performed at [facility], Pathology Laboratory where it was developed and its performance characteristics were determined. It has not been cleared or approved [...] qualified to perform high complexity clinical laboratory testing.[facility], Department of Pathology, [address] [place] [address], DgvsshK[facility], [facility] of [facility], [address] [place] [address], [facility], [facility] of [facility], [address] [place] [address], BODY FLUID CULTURE + GRAM STAIN 2019-10-29 15:54:00 Test Item Value Reference Range Comments CULTURE (BEAKER) (test kssc=7868) No growth GRAM STAIN RESULT (BEAKER) (test vzcz=1197) <1+ White blood cells seen GRAM STAIN RESULT (BEAKER) (test rbop=19610) No organisms seen RAD, CHEST, PA OR AP, 1 [id number] 17:45:00Reason for exam:->right side thoracentesisFINAL REPORT TECHNIQUE: Frontal view of the chest. INDICATION: 58-year-old man after right thoracentesis. COMPARISON: Chest radiograph 10/25/2019. FINDINGS: LINES/TUBES: Unchanged. LUNGS: Persistent hazy airspace opacity in the right mid and lower lung zones. PLEURA: Decreased small- moderate right pleural effusion. No pneumothorax. HEART AND MEDIASTINUM: The cardiomediastinal silhouette is unchanged. SOFT TISSUES AND BONES: Unremarkable. IMPRESSION:Decreased small-moderate right pleural effusion. No pneumothorax. Otherwise, no significant change since 10/25/2019. Signed: Stephanie Duffy MDReport Verified Date/Time: 10/27/2019 17:45:36 Reading Location: [facility] C013Y CT Body Reading Room BODY FLUID CELL COUNT WITH [id number] 17:23:00 Test Item Value Reference Range Comments APPEARANCE FLUID (BEAKER) (test teav=119) Bloody Clear COLOR FLUID (BEAKER) (test ohll=662) Red Colorless, Straw RBC FLUID (BEAKER) (test dpaa=294) 656061 /cu mm <=1 ADJUSTED WBC FLUID (BEAKER) (test tnhr=2914) 2050 /cu mm <=5 LINING CELLS (BEAKER) (test lxwm=6625) 20 /cu mm <=1 NEUTROPHILS FLUID (BEAKER) (test ncns=6542) 33 % LYMPHS FLUID (BEAKER) (test ihpx=320) 47 % MONO/MACROPHAGE FLUID (BEAKER) (test 13 % qocj=192) EOSINOPHILS FLUID (BEAKER) (test fstr=807) 7 % BASO FLUID (BEAKER) (test nsvf=607) 0 % CONTAINER BODY FLUID (BEAKER) (test EDTA Tube clwl=6921) U/S, [id number] 17:08:00Laterality?->RightReason for exam:-> persistent fluid, still symptomatic, re-tap for therapeutic and diagnostic purposesLabs to be Ordered:->Glucose+LDH+ProteinLabs to be Ordered:->Body Fluid Culture (w/Gram Stain, C\\T\\S)Labs to be Ordered:->CytologyFINAL REPORT PROCEDURE: Ultrasound-guided thoracentesis INDICATION: 58 -year-old man with right pleural effusion. DESCRIPTION: After obtaining informed written consent, ultrasoundscan showed pleural effusion on the right. The overlying skin was prepped and draped in the usual, sterile fashion and local 2% lidocaine anesthesia was administered. A 4 Libyan catheter was advanced into the pleural cavity and 1300 cc of bloody fluid was removed. The catheter was removed without immediate complication. Samples were sent for analysis. IMPRESSION:Uncomplicated ultrasound-guided right thoracentesis with 1300 cc fluid removed. Signed: Stephanie Duffy MDReport Verified Date/Time: 17:08:31 Reading Location: [facility] C013Y CT Body Reading Room POCT- GLUCOSE [id number] 11:21:00 Test Item Value Reference Range Comments POC-GLUCOSE METER (BEAKER) 162 mg/dL 70-110 : TESTED AT [address] (test iurm=6142) [facility]: Counter Stacker/Corporate Planning Manager [phone] for [place], [place] POCT-GLUCOSE [id number] 07:21:00 Test Item Value Reference Range Comments POC-GLUCOSE METER (BEAKER) 136 mg/dL 70-110 : TESTED AT [address] (test kdqz=2545) [place] [address]: Counter Stacker/Corporate Planning Manager [phone] for LAW, [place] [id number] 06:31:00 Test Item Value Reference Range Comments MAGNESIUM (BEAKER) (test xjcw=970) 2.1 mg/dL 1.6-2.6 Counter Stacker ID - ARGENIS MBASIC METABOLIC [id number] 06:31:00 Test Item Value Reference Range Comments SODIUM (BEAKER) (test 137 meq/L 136-145 wegv=492) POTASSIUM (BEAKER) (test 4.4 meq/L 3.5-5.1 ucni=799) CHLORIDE (BEAKER) (test 103 meq/L 98-107 gjxp=484) CO2 (BEAKER) (test 27 meq/L 22-29 mdzj=157) BLOOD UREA NITROGEN 18 mg/dL 7-21 (BEAKER) (test jpdo=794) CREATININE (BEAKER) (test 0.84 mg/dL 0.57-1.25 ylyx=990) GLUCOSE RANDOM (BEAKER) 133 mg/dL 70-105 (test tjiz=443) CALCIUM (BEAKER) (test 8.8 mg/dL 8.4-10.2 ltgt=242) EGFR (BEAKER) (test 114 mL/min/1.73 sq m ESTIMATED GFR IS NOT qyxr=6218) ACCURATE CREATININE CLEARANCE IN PREDICTING GLOMERULAR FILTRATION RATE. ESTIMATED GFR IS NOT APPLICABLE FOR DIALYSIS PATIENTS. Counter Stacker ID - ARGENIS MPROTHROMBIN TIME/[id number] 05:51:00 Test Item Value Reference Range Comments PROTIME (BEAKER) (test sudg=480) 14.0 seconds 11.9-14.2 INR (BEAKER) (test sttd=614) 1.1 <=5.9 Effective 02/28/2019: PT Reference Range ChangeNew: 11.9-14.2 Previous: 11.7- 14.7RECOMMENDED COUMADIN/WARFARIN INR THERAPY RANGESSTANDARD DOSE: 2.0-3.0 Includes: PROPHYLAXIS for venous thrombosis, systemic embolization; TREATMENT for venous thrombosis and/or pulmonary embolus.HIGH RISK: Target INR is2.5-3.5 for patients wiht mechanical heart valves.CBC W/PLT COUNT & AUTO [id number] 05:41:00 Test Item Value Reference Range Comments WHITE BLOOD CELL COUNT (BEAKER) (test stan=946) 7.7 K/ L 3.5-10.5 RED BLOOD CELL COUNT (BEAKER) (test fnxm=971) 4.14 M/ L 4.63-6.08 HEMOGLOBIN (BEAKER) (test rkjt=942) 12.8 GM/DL 13.7-17.5 HEMATOCRIT (BEAKER) (test fcee=294) 40.3 % 40.1-51.0 MEAN CORPUSCULAR VOLUME (BEAKER) (test sfeb=144) 97.3 fL 79.0-92.2 MEAN CORPUSCULAR HEMOGLOBIN (BEAKER) (test 30.9 pg 25.7-32.2 oazs=843) MEAN CORPUSCULAR HEMOGLOBIN CONC (BEAKER) (test 31.8 GM/DL 32.3-36.5 vduf=843) RED CELL DISTRIBUTION WIDTH (BEAKER) (test 14.0 % 11.6-14.4 hdnm=446) PLATELET COUNT (BEAKER) (test znhs=165) 228 K/CU MM 150-450 MEAN PLATELET VOLUME (BEAKER) (test nnuv=671) 11.1 fL 9.4-12.4 NUCLEATED RED BLOOD CELLS (BEAKER) (test 0 /100 WBC 0-0 hyls=274) NEUTROPHILS RELATIVE PERCENT (BEAKER) (test 65 % pfmy=961) LYMPHOCYTES RELATIVE PERCENT (BEAKER) (test 17 % pruw=882) MONOCYTES RELATIVE PERCENT (BEAKER) (test 13 % sbpe=477) EOSINOPHILS RELATIVE PERCENT (BEAKER) (test 4 % qpga=290) BASOPHILS RELATIVE PERCENT (BEAKER) (test 1 % bkzc=433) NEUTROPHILS ABSOLUTE COUNT (BEAKER) (test 4.94 K/ L 1.78-5.38 yzic=369) LYMPHOCYTES ABSOLUTE COUNT (BEAKER) (test 1.30 K/ L 1.32-3.57 rabs=735) MONOCYTES ABSOLUTE COUNT (BEAKER) (test 1.00 K/ L 0.30-0.82 jios=259) EOSINOPHILS ABSOLUTE COUNT (BEAKER) (test 0.34 K/ L 0.04-0.54 tans=592) BASOPHILS ABSOLUTE COUNT (BEAKER) (test 0.07 K/ L 0.01-0.08 ndus=532) IMMATURE GRANULOCYTES-RELATIVE PERCENT (BEAKER) 0 % 0-1 (test rvsw=6365) POCT-GLUCOSE [id number] 21:40:00 Test Item Value Reference Range Comments POC-GLUCOSE METER (BEAKER) 140 mg/dL 70-110 : TESTED AT [facility] [address] (test hqtp=0387) [facility], [address]: Counter Stacker/Corporate Planning Manager [id number] for Chayito Du [id number] 18:44:00 Test Item Value Reference Range Comments MAGNESIUM (BEAKER) (test 2.1 mg/dL 1.6-2.6 Specimen slightly hemolyzed ddkh=279) Counter Stacker DARYN TOBIN EBASIC METABOLIC [id number] 18:44:00 Test Item Value Reference Range Comments SODIUM (BEAKER) (test 137 meq/L 136-145 hzio=793) POTASSIUM (BEAKER) (test 5.2 meq/L 3.5-5.1 Specimen slightly nmar=944) hemolyzed CHLORIDE (BEAKER) (test 103 meq/L 98-107 guhk=192) CO2 (BEAKER) (test 27 meq/L 22-29 fotc=597) BLOOD UREA NITROGEN 21 mg/dL 7-21 (BEAKER) (test xtyc=179) CREATININE (BEAKER) (test 1.03 mg/dL 0.57-1.25 Specimen slightly gtyk=250) hemolyzed GLUCOSE RANDOM (BEAKER) 153 mg/dL 70-105 (test avpt=331) CALCIUM (BEAKER) (test 8.4 mg/dL 8.4-10.2 psww=414) EGFR (BEAKER) (test 90 mL/min/1.73 sq m ESTIMATED GFR IS NOT fupg=6977) ACCURATE CREATININE CLEARANCE IN PREDICTING GLOMERULAR FILTRATION RATE. ESTIMATED GFR IS NOT APPLICABLE FOR DIALYSIS PATIENTS. Counter Stacker DARYN TOBIN ELACTATE DEHYDROGENASE (LDH)2019-10-26 18:44:00 Test Item Value Reference Range Comments LACTATE DEHYDROGENASE (BEAKER) 345 U/L 125-220 Specimen slightly hemolyzed (test rcbl=881) Counter Stacker DARYN TOBIN EPOCT-GLUCOSE [id number] 16:31:00 Test Item Value Reference Range Comments POC-GLUCOSE METER (BEAKER) 143 mg/dL 70-110 : TESTED AT [place] [id number] [facility] (test inuf=4175) [facility], [address]: Counter Stacker/Corporate Planning Manager [id number] for [place], [place] POCT-GLUCOSE [id number] 10:51:00 Test Item Value Reference Range Comments POC-GLUCOSE METER (BEAKER) 135 mg/dL 70-110 : TESTED AT [place] [id number] [facility] (test djfh=7179) [facility], [address]: Counter Stacker/Corporate Planning Manager [id number] for [place], [place] CBC W/PLT COUNT & AUTO [id number] 10:37:00 Test Item Value Reference Range Comments WHITE BLOOD CELL COUNT (BEAKER) (test mczq=853) 9.3 K/ L 3.5-10.5 RED BLOOD CELL COUNT (BEAKER) (test fvhe=279) 4.44 M/ L 4.63-6.08 HEMOGLOBIN (BEAKER) (test zwgo=641) 13.4 GM/DL 13.7-17.5 HEMATOCRIT (BEAKER) (test svxs=206) 43.2 % 40.1-51.0 MEAN CORPUSCULAR VOLUME (BEAKER) (test lgzj=431) 97.3 fL 79.0-92.2 MEAN CORPUSCULAR HEMOGLOBIN (BEAKER) (test 30.2 pg 25.7-32.2 zdvz=747) MEAN CORPUSCULAR HEMOGLOBIN CONC (BEAKER) (test 31.0 GM/DL 32.3-36.5 rlcj=318) RED CELL DISTRIBUTION WIDTH (BEAKER) (test 14.2 % 11.6-14.4 bqqy=166) PLATELET COUNT (BEAKER) (test kwbh=702) 272 K/CU MM 150-450 MEAN PLATELET VOLUME (BEAKER) (test lkez=726) 10.6 fL 9.4-12.4 NUCLEATED RED BLOOD CELLS (BEAKER) (test 0 /100 WBC 0-0 qnec=095) NEUTROPHILS RELATIVE PERCENT (BEAKER) (test 66 % nwyp=503) LYMPHOCYTES RELATIVE PERCENT (BEAKER) (test 17 % wzbc=304) MONOCYTES RELATIVE PERCENT (BEAKER) (test 13 % xhcs=847) EOSINOPHILS RELATIVE PERCENT (BEAKER) (test 4 % dlua=148) BASOPHILS RELATIVE PERCENT (BEAKER) (test 1 % zxxn=572) NEUTROPHILS ABSOLUTE COUNT (BEAKER) (test 6.10 K/ L 1.78-5.38 qfef=986) LYMPHOCYTES ABSOLUTE COUNT (BEAKER) (test 1.54 K/ L 1.32-3.57 bten=659) MONOCYTES ABSOLUTE COUNT (BEAKER) (test 1.18 K/ L 0.30-0.82 ywjm=258) EOSINOPHILS ABSOLUTE COUNT (BEAKER) (test 0.36 K/ L 0.04-0.54 flxb=726) BASOPHILS ABSOLUTE COUNT (BEAKER) (test 0.06 K/ L 0.01-0.08 dhkk=260) IMMATURE GRANULOCYTES-RELATIVE PERCENT (BEAKER) 0 % 0-1 (test ewzp=8777) POCT-GLUCOSE [id number] 04:16:00 Test Item Value Reference Range Comments POC-GLUCOSE METER (BEAKER) 183 mg/dL 70-110 : TESTED AT [facility] [address] [facility] (test kzej=5892) [facility], [address]: Counter Stacker/Corporate Planning Manager [phone] for LETA LGAUERRE BODY FLUID CELL COUNT WITH [id number] 21:39:00 Test Item Value Reference Range Comments APPEARANCE FLUID (BEAKER) (test lebm=435) Bloody Clear COLOR FLUID (BEAKER) (test wzvj=387) Red Colorless, Straw RBC FLUID (BEAKER) (test mtos=258) 360745 /cu mm <=1 ADJUSTED WBC FLUID (BEAKER) (test fakm=9094) 1657 /cu mm <=5 LINING CELLS (BEAKER) (test bbpy=8933) 33 /cu mm <=1 NEUTROPHILS FLUID (BEAKER) (test hbgz=9862) 13 % LYMPHS FLUID (BEAKER) (test hmhv=845) 64 % MONO/MACROPHAGE FLUID (BEAKER) (test 11 % msxd=020) EOSINOPHILS FLUID (BEAKER) (test ekpy=227) 9 % BASO FLUID (BEAKER) (test zqnp=485) 3 % CONTAINER BODY FLUID (BEAKER) (test EDTA Tube ntcf=6173) POCT-GLUCOSE [id number] 19:01:00 Test Item Value Reference Range Comments POC-GLUCOSE METER (BEAKER) 123 mg/dL 70-110 : TESTED AT [address] (test tbpq=0511) [facility], [address]: Counter Stacker/Corporate Planning Manager [phone] for BEVERLY SAMANIEGO RAD, CHEST, 1 VIEW, NON [id number] 18:04:00Reason for exam:->post right sided thoracentesisShould this be performed at the bedside?->YesFINAL REPORT INDICATION: post right sided thoracentesis TECHNIQUE: Chest radiograph, single view, portable technique. FINDINGS / IMPRESSION: No pneumothorax is demonstrated afterright thoracentesis. Moderate right pleural effusion is not significantly changed in size since October 23. Enlarged heart shadow and right chest port again demonstrated. Right chest port turns back onitself in the internal jugular vein and terminates in the upper SVC. Signed: Roldan Hemphill MDReport Verified Date/Time: 10/25/2019 18:04:22 Reading Location: [facility] C013T Transitional Reading Room POCT-GLUCOSE [id number] 12:43:00 Test Item Value Reference Range Comments POC-GLUCOSE METER (BEAKER) 144 mg/dL 70-110 : TESTED AT [facility] [address] [facility] (test tpdu=9774) [facility], [address]: Counter Stacker/Corporate Planning Manager [phone] for BEVERLY SAMANIEGO [id number] 06:05:00 Test Item Value Reference Range Comments MAGNESIUM (BEAKER) (test lcog=096) 2.1 mg/dL 1.6-2.6 Counter Stacker ID - BSBASIC METABOLIC [id number] 06:05:00 Test Item Value Reference Range Comments SODIUM (BEAKER) (test 137 meq/L 136-145 qcvo=624) POTASSIUM (BEAKER) (test 4.3 meq/L 3.5-5.1 mmgo=328) CHLORIDE (BEAKER) (test 102 meq/L 98-107 bnlm=367) CO2 (BEAKER) (test 26 meq/L 22-29 qhvp=777) BLOOD UREA NITROGEN 23 mg/dL 7-21 (BEAKER) (test jugc=545) CREATININE (BEAKER) (test 0.88 mg/dL 0.57-1.25 wbmu=913) GLUCOSE RANDOM (BEAKER) 126 mg/dL 70-105 (test rchw=473) CALCIUM (BEAKER) (test 8.7 mg/dL 8.4-10.2 zuka=124) EGFR (BEAKER) (test 108 mL/min/1.73 sq m ESTIMATED GFR IS NOT qcmw=0876) ACCURATE CREATININE CLEARANCE IN PREDICTING GLOMERULAR FILTRATION RATE. ESTIMATED GFR IS NOT APPLICABLE FOR DIALYSIS PATIENTS. Counter Stacker ID - BSPT/[id number] 05:00:00 Test Item Value Reference Range Comments PROTIME (BEAKER) (test aaum=144) 14.2 seconds 11.9-14.2 INR (BEAKER) (test jtsl=348) 1.1 <=5.9 PARTIAL THROMBOPLASTIN TIME (BEAKER) (test 27.6 seconds 22.5-36.0 jgmp=910) Effective 02/28/2019: PT Reference Range ChangeNew: 11.9-14.2 Previous: 11.7- 14.7RECOMMENDED COUMADIN/WARFARIN INR THERAPY RANGESSTANDARD DOSE: 2.0-3.0 Includes: PROPHYLAXIS for venous thrombosis, systemic embolization; TREATMENT for venous thrombosis and/or pulmonary embolus.HIGH RISK: Target INR is2.5-3.5 for patients wiht mechanical heart valves.CBC W/PLT COUNT & AUTO [id number] 04:47:00 Test Item Value Reference Range Comments WHITE BLOOD CELL COUNT (BEAKER) (test nymk=265) 7.8 K/ L 3.5-10.5 RED BLOOD CELL COUNT (BEAKER) (test vmhx=744) 4.10 M/ L 4.63-6.08 HEMOGLOBIN (BEAKER) (test rgwr=538) 12.6 GM/DL 13.7-17.5 HEMATOCRIT (BEAKER) (test fvpt=534) 39.8 % 40.1-51.0 MEAN CORPUSCULAR VOLUME (BEAKER) (test gxvh=648) 97.1 fL 79.0-92.2 MEAN CORPUSCULAR HEMOGLOBIN (BEAKER) (test 30.7 pg 25.7-32.2 cmas=797) MEAN CORPUSCULAR HEMOGLOBIN CONC (BEAKER) (test 31.7 GM/DL 32.3-36.5 kylk=036) RED CELL DISTRIBUTION WIDTH (BEAKER) (test 14.4 % 11.6-14.4 ryca=812) PLATELET COUNT (BEAKER) (test bjra=009) 211 K/CU MM 150-450 MEAN PLATELET VOLUME (BEAKER) (test uway=086) 10.6 fL 9.4-12.4 NUCLEATED RED BLOOD CELLS (BEAKER) (test 0 /100 WBC 0-0 ypud=985) NEUTROPHILS RELATIVE PERCENT (BEAKER) (test 58 % njwr=506) LYMPHOCYTES RELATIVE PERCENT (BEAKER) (test 20 % yuym=354) MONOCYTES RELATIVE PERCENT (BEAKER) (test 15 % rkcp=047) EOSINOPHILS RELATIVE PERCENT (BEAKER) (test 5 % qwrm=981) BASOPHILS RELATIVE PERCENT (BEAKER) (test 1 % sahn=501) NEUTROPHILS ABSOLUTE COUNT (BEAKER) (test 4.51 K/ L 1.78-5.38 oxhe=626) LYMPHOCYTES ABSOLUTE COUNT (BEAKER) (test 1.57 K/ L 1.32-3.57 sivt=440) MONOCYTES ABSOLUTE COUNT (BEAKER) (test 1.19 K/ L 0.30-0.82 sifw=681) EOSINOPHILS ABSOLUTE COUNT (BEAKER) (test 0.41 K/ L 0.04-0.54 ghrz=575) BASOPHILS ABSOLUTE COUNT (BEAKER) (test 0.05 K/ L 0.01-0.08 prdi=120) IMMATURE GRANULOCYTES-RELATIVE PERCENT (BEAKER) 0 % 0-1 (test bquy=5464) POCT-GLUCOSE [id number] 21:38:00 Test Item Value Reference Range Comments POC-GLUCOSE METER (BEAKER) 170 mg/dL 70-110 : TESTED AT [address] (test hrnb=1094) [facility], [address]: Counter Stacker/Corporate Planning Manager [phone] for MARLENY RODRIGUEZ POCT-GLUCOSE [id number] 17:40:00 Test Item Value Reference Range Comments POC-GLUCOSE METER (BEAKER) 211 mg/dL 70-110 : TESTED AT [address] (test anrw=3316) [facility], [address]: Counter Stacker/Corporate Planning Manager [phone] for Estefany Gross POCT-GLUCOSE [id number] 11:07:00 Test Item Value Reference Range Comments POC-GLUCOSE METER (BEAKER) 168 mg/dL 70-110 : TESTED AT [address] (test elnn=0752) [facility], [address]: Counter Stacker/Corporate Planning Manager [phone] for Estefany Gross POCT-GLUCOSE [id number] 07:58:00 Test Item Value Reference Range Comments POC-GLUCOSE METER (BEAKER) 129 mg/dL 70-110 : TESTED AT [address] (test rkbd=5769) [facility], [address]: Counter Stacker/Corporate Planning Manager [id number] for Estefany Gross [id number] 06:35:00 Test Item Value Reference Range Comments MAGNESIUM (BEAKER) (test zxcx=254) 2.1 mg/dL 1.6-2.6 Counter Stacker ID - ARGENIS MBASIC METABOLIC [id number] 06:35:00 Test Item Value Reference Range Comments SODIUM (BEAKER) (test 139 meq/L 136-145 vuxk=625) POTASSIUM (BEAKER) (test 4.0 meq/L 3.5-5.1 dxqi=671) CHLORIDE (BEAKER) (test 105 meq/L 98-107 uqos=001) CO2 (BEAKER) (test 28 meq/L 22-29 nuby=176) BLOOD UREA NITROGEN 18 mg/dL 7-21 (BEAKER) (test vion=780) CREATININE (BEAKER) (test 0.83 mg/dL 0.57-1.25 hfwd=740) GLUCOSE RANDOM (BEAKER) 123 mg/dL 70-105 (test vbou=217) CALCIUM (BEAKER) (test 8.9 mg/dL 8.4-10.2 yyod=756) EGFR (BEAKER) (test 115 mL/min/1.73 sq m ESTIMATED GFR IS NOT kuem=6675) ACCURATE CREATININE CLEARANCE IN PREDICTING GLOMERULAR FILTRATION RATE. ESTIMATED GFR IS NOT APPLICABLE FOR DIALYSIS PATIENTS. Counter Stacker ID - ARGENIS MCARCINOEMBRYONIC ANTIGEN (CEA)2019-10-24 06:24:00 Test Item Value Reference Range Comments CARCINOEMBRYONIC ANTIGEN (BEAKER) (test 100.3 ng/mL 0.0-5.0 krin=589) Counter Stacker ID - ARGENIS MTSH/FREE T4 IF [id number] 06:24:00 Test Item Value Reference Range Comments THYROID STIMULATING HORMONE (BEAKER) (test 1.00 uIU/mL 0.35-4.94 oqse=472) Counter Stacker ID - ARGENIS MTROPONIN [id number] 06:16:00 Test Item Value Reference Range Comments TROPONIN I (BEAKER) (test wfzl=592) < ng/mL 0.00-0.03 Troponin I (TnI) levels must be interpreted in the context of the presenting symptoms and the clinical findings. Elevated TnI levels indicate myocardial damage, but are not specific for ischemic heart disease. Elevated TnI levels are seen in patients with other cardiac conditions (including myocarditis and congestive heart failure), and slight TnI elevations occur in patients with other conditions, including sepsis, renal failure, acidosis, acute neurological disease, and persistent tachyarrhythmia.Counter Stacker ID - ARGENIS MLACTATE DEHYDROGENASE (LDH)2019-10-24 06:08:00 Test Item Value Reference Range Comments LACTATE DEHYDROGENASE (BEAKER) (test ykui=096) 209 U/L 125-220 Counter Stacker ID - ARGENIS [facility] W/PLT COUNT & AUTO [id number] 05:43:00 Test Item Value Reference Range Comments WHITE BLOOD CELL COUNT (BEAKER) (test dkyw=546) 8.5 K/ L 3.5-10.5 RED BLOOD CELL COUNT (BEAKER) (test rvcq=286) 4.58 M/ L 4.63-6.08 HEMOGLOBIN (BEAKER) (test ajlw=488) 13.8 GM/DL 13.7-17.5 HEMATOCRIT (BEAKER) (test hhdq=852) 44.8 % 40.1-51.0 MEAN CORPUSCULAR VOLUME (BEAKER) (test qncf=970) 97.8 fL 79.0-92.2 MEAN CORPUSCULAR HEMOGLOBIN (BEAKER) (test 30.1 pg 25.7-32.2 rnkw=804) MEAN CORPUSCULAR HEMOGLOBIN CONC (BEAKER) (test 30.8 GM/DL 32.3-36.5 mcro=164) RED CELL DISTRIBUTION WIDTH (BEAKER) (test 14.6 % 11.6-14.4 ohwu=237) PLATELET COUNT (BEAKER) (test mnte=918) 229 K/CU MM 150-450 MEAN PLATELET VOLUME (BEAKER) (test heuh=514) 10.6 fL 9.4-12.4 NUCLEATED RED BLOOD CELLS (BEAKER) (test 0 /100 WBC 0-0 avcr=146) NEUTROPHILS RELATIVE PERCENT (BEAKER) (test 66 % bkyr=268) LYMPHOCYTES RELATIVE PERCENT (BEAKER) (test 16 % xisl=207) MONOCYTES RELATIVE PERCENT (BEAKER) (test 12 % tvqq=311) EOSINOPHILS RELATIVE PERCENT (BEAKER) (test 5 % cjua=192) BASOPHILS RELATIVE PERCENT (BEAKER) (test 1 % fcln=217) NEUTROPHILS ABSOLUTE COUNT (BEAKER) (test 5.62 K/ L 1.78-5.38 oxpg=095) LYMPHOCYTES ABSOLUTE COUNT (BEAKER) (test 1.39 K/ L 1.32-3.57 yvgu=496) MONOCYTES ABSOLUTE COUNT (BEAKER) (test 1.00 K/ L 0.30-0.82 rrxl=521) EOSINOPHILS ABSOLUTE COUNT (BEAKER) (test 0.43 K/ L 0.04-0.54 vhvo=427) BASOPHILS ABSOLUTE COUNT (BEAKER) (test 0.06 K/ L 0.01-0.08 sdgy=356) IMMATURE GRANULOCYTES-RELATIVE PERCENT (BEAKER) 1 % 0-1 (test tnil=4912) POCT-GLUCOSE [id number] 00:33:00 Test Item Value Reference Range Comments POC-GLUCOSE METER (BEAKER) 109 mg/dL 70-110 : TESTED AT [address] (test cwwv=8691) [place] [id number]: Counter Stacker/Corporate Planning Manager [id number] for Chayito Du TROPONIN [id number] 17:41:00 Test Item Value Reference Range Comments TROPONIN I (BEAKER) (test dhre=112) < ng/mL 0.00-0.03 Troponin I (TnI) levels must be interpreted in the context of the presenting symptoms and the clinical findings. Elevated TnI levels indicate myocardial damage, but are not specific for ischemic heart disease. Elevated TnI levels are seen in patients with other cardiac conditions (including myocarditis and congestive heart failure), and slight TnI elevations occur in patients with other conditions, including sepsis, renal failure, acidosis, acute neurological disease, and persistent tachyarrhythmia.Counter Stacker ID - BSPOCT-GLUCOSE [id number] 17:16:00 Test Item Value Reference Range Comments POC-GLUCOSE METER (BEAKER) 60 mg/dL 70-110 : TESTED AT [address] (test bwdv=7015) [place] [id number]: Counter Stacker/Corporate Planning Manager [id number] for Estefany Gross RAD, CHEST, 2 [id number] 14:27:00Reason for exam:->SHORTNESS OF BREATHx3 months; worse over last month; recent admission in [facility] REPORT INDICATION: SHORTNESS OF BREATH COMPARISON: July 16, 2019 TECHNIQUE: Frontal and lateral views of the chest. FINDINGS: Lungs and pleura: Moderate right effusion and adjacent compressive atelectasis..Heart and mediastinum: Normal heart size. Unremarkable mediastinal contours.Osseous structures: No acute abnormality.Additional findings: Port-A- Cath tip overlies the SVC. IMPRESSION: Moderate right effusion with adjacent compressive atelectasis Signed: Rosales Martin MDReport Verified Date/Time: 14:27:38 Reading Location: [facility] Radiology Reading Room [id number] 13:25:00 Test Item Value Reference Range Comments PARTIAL THROMBOPLASTIN TIME (BEAKER) (test 26.1 sec 22.5-36.0 thzl=046) PROTHROMBIN [id number] 13:25:00 Test Item Value Reference Range Comments PROTIME (BEAKER) (test zmjm=212) 11.0 sec 11.7-14.7 INR (BEAKER) (test tplg=169) 1.1 INR <=5.9 RECOMMENDED COUMADIN/WARFARIN INR THERAPY RANGESSTANDARD DOSE: 2.0 - 3.0 Includes: PROPHYLAXIS forvenous thrombosis, systemic embolization; TREATMENT for venous thrombosis and/or pulmonary embolus.HIGH RISK: Target INR is 2.5-3.5 for patients with mechanical heart valves.CBC W/PLT COUNT & AUTO [id number] 12:51:00 Test Item Value Reference Range Comments WHITE BLOOD CELL COUNT (BEAKER) (test clzy=800) 9.9 K/ L 3.5-10.5 RED BLOOD CELL COUNT (BEAKER) (test pefb=402) 4.28 M/ L 4.63-6.08 HEMOGLOBIN (BEAKER) (test xeyt=120) 13.3 GM/DL 13.7-17.5 HEMATOCRIT (BEAKER) (test zrsu=803) 42.1 % 40.1-51.0 MEAN CORPUSCULAR VOLUME (BEAKER) (test aesa=990) 98.4 fL 79.0-92.2 MEAN CORPUSCULAR HEMOGLOBIN (BEAKER) (test 31.1 pg 25.7-32.2 ggnd=668) MEAN CORPUSCULAR HEMOGLOBIN CONC (BEAKER) (test 31.6 GM/DL 32.3-36.5 ozph=048) RED CELL DISTRIBUTION WIDTH (BEAKER) (test 14.6 % 11.6-14.4 eikf=158) PLATELET COUNT (BEAKER) (test opml=117) 227 K/CU MM 150-450 MEAN PLATELET VOLUME (BEAKER) (test zzxe=339) 10.4 fL 9.4-12.4 NEUTROPHILS RELATIVE PERCENT (BEAKER) (test 69 % tdsx=171) LYMPHOCYTES RELATIVE PERCENT (BEAKER) (test 17 % vnnp=972) MONOCYTES RELATIVE PERCENT (BEAKER) (test 9 % pghx=034) EOSINOPHILS RELATIVE PERCENT (BEAKER) (test 4 % todv=955) BASOPHILS RELATIVE PERCENT (BEAKER) (test 1 % bkmg=538) NEUTROPHILS ABSOLUTE COUNT (BEAKER) (test 6.88 K/ L 1.78-5.38 gqfj=539) LYMPHOCYTES ABSOLUTE COUNT (BEAKER) (test 1.64 K/ L 1.32-3.57 hgdr=732) MONOCYTES ABSOLUTE COUNT (BEAKER) (test 0.89 K/ L 0.30-0.82 bdxi=002) EOSINOPHILS ABSOLUTE COUNT (BEAKER) (test 0.42 K/ L 0.04-0.54 agsf=832) BASOPHILS ABSOLUTE COUNT (BEAKER) (test 0.05 K/ L 0.01-0.08 aomd=949) IMMATURE GRANULOCYTES-RELATIVE PERCENT (BEAKER) 0 % 0-1 (test tcwf=8779) CT, CHEST, WITH IV CONTRAST- PE TEST [id number] 12:20:00Reason for exam:-& gt;SHORTNESS OF BREATHx3 months; worse over last month; [place]?->No SedationFINAL REPORT CT of the chest, pulmonary embolism protocol, and CT of the abdomen and pelvis, with contrast Clinical History: Shortness of breath, tachycardia, bowel obstructionsuspected, history of colon cancer Technique: Precontrast axial images at the level of the pulmonary outflow tract are obtained for the purpose of contrast bolus tracking. Postcontrast axial images of the chest are subsequently obtained with optimal pulmonary arterial enhancement followed by delayedpostcontrast images. Coronal reformatted images are obtained. CT of the abdomen and pelvis is also obtained after intravenous contrast administration. This exam was performed according to our departmental dose optimization program which includes automated exposure control, adjustment of the mA and/or kV according to patient's size and/or use of iterative reconstructive technique. Comparison Film: September 19, 2019, September 18, 2019 Discussion: Contrast opacification of the pulmonary arteries is suboptimal. Allowing for this limitation, no filling defect is identified. There is a right-sided Port-A-Cath. Visualized thyroid gland is unremarkable. No supraclavicular, axillary, mediastinal or hilar lymphadenopathy. There is a large right-sided pleural effusion, similar to the prior exam, associated with collapse of most of the right lung. Aerated portion of the lung appear unremarkable. There isno left effusion. Subtle enhancing pleural nodules are noted at the right lung base, suggestive of metastatic disease Central airways appear patent. No liver lesion is identified. There is no biliary ductal dilatation, gallbladder is unremarkable. Spleen, and pancreas are normal. There is a left adrenal 3.2 x 3.3 cm mass without significant interval change, and contains a punctate focus of calcification. Right adrenal gland is normal. Kidneys demonstrate no mass, hydronephrosis or radiopaque stone. No evidence of bowel obstruction. A stent is present in the proximal descending colon, where wall thickening is noted, in keeping with history of colon cancer. Multiple nodules are seen in the omentum, compatible with carcinomatosis. There may be subtle serosal nodules along the hepatic dome as well. In the pelvis, bladder, prostate and seminal vesicles are unremarkable. No ascites or free intraperitoneal air. Osseous structures demonstrate degenerative changes. No suspicious bony lesion is identified. Impression: Technically suboptimal exam, allowing for this limitation, no PE is identified. Large right pleural effusion. Suspect right-sided pleural-based metastasis. Stent in proximal descending colon. There is omental carcinomatosis. Serosal deposits may also be present along the liver surface. Indeterminate left adrenal 3.3 cm mass. Signed : Stefanie Royort Verified Date/Time: 10/23/2019 12:20:34 Reading Location: [facility] C0X [facility] Consult Reading Room CT, [id number] 12:20:00FINAL REPORT CT of the chest, pulmonary embolism protocol, and CT of the abdomen and pelvis, with contrast Clinical History: Shortness of breath, tachycardia, bowel obstructionsuspected, history of colon cancer Technique: Precontrast axial images at the level of the pulmonary outflow tract are obtained for the purpose of contrast bolus tracking. Postcontrast axial images of the chest are subsequently obtained with optimal pulmonary arterial enhancement followed by delayedpostcontrast images. Coronal reformatted images are obtained. CT of the abdomen and pelvis is also obtained after intravenous contrast administration. This exam was performed according to our departmental dose optimization program which includes automated exposure control, adjustment of the mA and/or kV according to patient's size and/or use of iterative reconstructive technique. Comparison Film: September 19, 2019, September 18, 2019 Discussion: Contrast opacification of the pulmonary arteries is suboptimal. Allowing for this limitation, no filling defect is identified. There is a right-sided Port-A-Cath. Visualized thyroid gland is unremarkable. No supraclavicular, axillary, mediastinal or hilar lymphadenopathy. There is a large right-sided pleural effusion, similar to the prior exam, associated with collapse of most of the right lung. Aerated portion of the lung appear unremarkable. There isno left effusion. Subtle enhancing pleural nodules are noted at the right lung base, suggestive of metastatic disease Central airways appear patent. No liver lesion is identified. There is no biliary ductal dilatation, gallbladder is unremarkable. Spleen, and pancreas are normal. There is a left adrenal 3.2 x 3.3 cm mass without significant interval change, and contains a punctate focus of calcification. Right adrenal gland is normal. Kidneys demonstrate no mass, hydronephrosis or radiopaque stone. No evidence of bowel obstruction. A stent is present in the proximal descending colon, where wall thickening is noted, in keeping with history of colon cancer. Multiple nodules are seen in the omentum, compatible with carcinomatosis. There may be subtle serosal nodules along the hepatic dome as well. In the pelvis, bladder, prostate and seminal vesicles are unremarkable. No ascites or free intraperitoneal air. Osseous structures demonstrate degenerative changes. No suspicious bony lesion is identified. Impression: Technically suboptimal exam, allowing for this limitation, no PE is identified. Large right pleural effusion. Suspect right-sided pleural-based metastasis. Stent in proximal descending colon. There is omental carcinomatosis. Serosal deposits may also be present along the liver surface. Indeterminate left adrenal 3.3 cm mass. Signed : Stefanie Royort Verified Date/Time: 10/23/2019 12:20:34 Reading Location: [facility] C013X [facility] Consult Reading Room URINALYSIS WITH MICROSCOPIC IF [id number] 12:10:00 Test Item Value Reference Range Comments COLOR (BEAKER) (test uuue=379) Yellow CLARITY (BEAKER) (test vpgy=701) Clear SPECIFIC GRAVITY UA (BEAKER) (test qoog=578) 1.015 1.005-1.030 PH UA (BEAKER) (test qsge=514) 6.0 5.0-9.0 PROTEIN UA (BEAKER) (test ywid=314) Negative Negative GLUCOSE UA (BEAKER) (test pjgl=704) Negative Negative KETONES UA (BEAKER) (test pcth=685) Negative Negative BILIRUBIN UA (BEAKER) (test zsrg=457) Negative Negative BLOOD UA (BEAKER) (test pdof=870) Trace Negative NITRITE UA (BEAKER) (test dgvc=118) Negative Negative LEUKOCYTE ESTERASE UA (BEAKER) (test syuq=753) Negative Negative UROBILINOGEN UA (BEAKER) (test xojz=630) 1.0 mg/dL 0.2-1.0 SOURCE(BEAKER) (test yydq=8835) BASIC METABOLIC [id number] 11:56:00 Test Item Value Reference Range Comments SODIUM (BEAKER) (test 141 meq/L 136-145 nsfg=984) POTASSIUM (BEAKER) (test 3.8 meq/L 3.5-5.1 Specimen slightly oehn=886) hemolyzed CHLORIDE (BEAKER) (test 103 meq/L 98-107 erim=073) CO2 (BEAKER) (test 28 meq/L 22-29 oloj=314) BLOOD UREA NITROGEN 16 mg/dL 7-21 (BEAKER) (test lqjy=230) CREATININE (BEAKER) (test 0.84 mg/dL 0.57-1.25 Specimen slightly mgfk=531) hemolyzed GLUCOSE RANDOM (BEAKER) 78 mg/dL 70-105 (test wfoo=612) CALCIUM (BEAKER) (test 8.2 mg/dL 8.4-10.2 gybb=296) EGFR (BEAKER) (test 114 mL/min/1.73 sq m ESTIMATED GFR IS NOT tkxl=7696) ACCURATE CREATININE CLEARANCE IN PREDICTING GLOMERULAR FILTRATION RATE. ESTIMATED GFR IS NOT APPLICABLE FOR DIALYSIS PATIENTS. LACTATE DEHYDROGENASE (LDH)2019-10-23 11:50:00 Test Item Value Reference Range Comments LACTATE DEHYDROGENASE (BEAKER) 233 U/L 125-220 Specimen slightly hemolyzed (test odhn=425) B-TYPE NATRIURETIC FACTOR (BNP)2019-10-23 11:49:00 Test Item Value Reference Range Comments B-TYPE NATRIURETIC PEPTIDE (BEAKER) (test xcgo=238) 93 pg/mL 0-100 [id number] 11:49:00 Test Item Value Reference Range Comments PHOSPHORUS (BEAKER) (test 3.7 mg/dL 2.3-4.7 Specimen slightly hemolyzed nchm=316) TROPONIN [id number] 11:49:00 Test Item Value Reference Range Comments TROPONIN I (BEAKER) (test qlav=057) 0.01 ng/mL 0.00-0.03 Troponin I (TnI) levels must be interpreted in the context of the presenting symptoms and the clinical findings. Elevated TnI levels indicate myocardial damage, but are not specific for ischemic heart disease. Elevated TnI levels are seen in patients with other cardiac conditions (including myocarditis and congestive heart failure), and slight TnI elevations occur in patients with other conditions, including sepsis, renal failure, acidosis, acute neurological disease, and persistent tachyarrhythmia.BLOOD GAS, [id number] 11:22:00 Test Item Value Reference Range Comments PH VENOUS (BEAKER) (test pghs=886) 7.40 7.32-7.42 PCO2 VENOUS (BEAKER) (test mzgf=734) 49 mmHg 41-51 PO2 VENOUS (BEAKER) (test pewq=602) 42 mmHg 25-40 O2 SATURATION VENOUS (BEAKER) (test sazv=011) 77.6 % 40.0-70.0 HCO3 VENOUS (BEAKER) (test faks=332) 30 mmol/L 21-29 BASE EXCESS VENOUS (BEAKER) (test wwhw=649) 3.9 mmol/L -2.0-3.0 PATIENT TEMPERATURE (BEAKER) (test ukex=0889) 37.0 C FIO2 (BEAKER) (test ucts=9274) 100.0 % POCT-GLUCOSE [id number] 11:13:00 Test Item Value Reference Range Comments POC-GLUCOSE METER (BEAKER) 69 mg/dL 70-110 : TESTED AT [address] (test adxj=8827) [facility] [id number]: Counter Stacker/Corporate Planning Manager [id number] for CONNER LUNDBERG RAD, CHEST, 2 [id number] 14:00:00Reason for Exam:->SOB shortness of breathFINAL REPORT CHEST PA AND LATERAL COMPARISON STUDY : 07/15/2018 History provided: Shortness of breath, metastatic [...] MDReport Verified Date/Time: 07/16/2019 14:00:37 Reading Location: [address] Radiology Reading Room Electronically signed by: ELIANA WHITE on 02:00 PMCT, CHEST, WITH IV [id number] 13:11:00Reason for Exam:- >C18.9FINAL REPORT CT of the chest, abdomen and pelvis, with contrast Clinical History: C18.9 Technique: CT of the chest, abdomen and pelvis is performed with intravenous contrast administration. This exam was performed according to our departmental dose optimization program whichincludes automated exposure control, adjustment of the mA and/or kV according to patient's size and/or use of iterative reconstructive technique. Comparison Film: April 11, 2019, October 05, 2018, July 07, 2018 Discussion: There is a right-sided Port-A-Cath. Visualized thyroid gland is normal. No supraclavicular, axillary, mediastinal or hilar lymphadenopathy. Heart and pericardium are unremarkable.There is a moderate-sized right pleural effusion, increased since the prior exam. It is associated with relaxation atelectasis of the right lower lobe. A few tiny nodules along the right major fissure are unchanged. There are two subpleural nodules in the right upper lobe, which have become larger. Noconsolidation. Central airways are patent. Stable enhancing focus in the anterior right hepatic lobeprobably represents a hemangioma. No new liver mass [...] intra-abdominal findings, including omental carcinomatosis, left adrenal lesion , and subcentimeter hypodensities in the medial aspect of spleen. Signed: Stefanie Royeport Verified Date/Time: 07/02/2019 13:11:30 Reading Location: [address] Consult Reading Room CT, [id number] 13:11:00Reason for Exam:-> C18.9FINAL REPORT CT of the chest, abdomen and pelvis, with contrast Clinical History: C18.9 Technique: CT of the chest, abdomen and pelvis is performed with intravenous contrast administration. This exam was performed according to our departmental dose optimization program whichincludes automated exposure control, adjustment of the mA and/or kV according to patient' s size and/or use of iterative reconstructive technique. Comparison Film: April 11, 2019, October 05, 2018, July 07, 2018 Discussion: There is a right-sided Port-A-Cath. Visualized thyroid gland is normal. No supraclavicular, axillary, mediastinal or hilar lymphadenopathy. Heart and pericardium are unremarkable.There is a moderate-sized right pleural effusion, increased since the prior exam. It is associated with relaxation atelectasis of the right lower lobe. A few tiny nodules along the right major fissure are unchanged. There are two subpleural nodules in the right upper lobe, which have become larger. Noconsolidation. Central airways are patent. Stable enhancing focus in the anterior right hepatic lobeprobably represents a hemangioma. No new liver mass [...] Royort Verified Date/Time: 07/02/2019 13:11:30 Reading Location: [address] Consult Reading Room [id number] 07:46:00 Test Item Value Reference Range Comments POC-CREATININE (BEAKER) 0.7 mg/dL 0.6-1.3 TESTED AT [facility] 7200 (test awpj=5972) [facility] [address] POC-EGFR (BEAKER) (test 140 mL/min/1.73M2 gvmy=0742) CT, [id number] 09:11:00FINAL REPORT EXAM: CT Chest , Abdomen and Pelvis WITH contrast INDICATION: Colon cancer C18.9 COMPARISON: 12/25/2018, 10/05/2018, 10/15/2018TECHNIQUE: Chest, abdomen and pelvis were scanned utilizing [...] 09:11:14 09 :11 AMCT, CHEST, WITH IV [id number] 09:11:00FINAL REPORT EXAM: CT Chest, Abdomen and [...] MD on 09:11 AMCT, CHEST, WITH IV [id number] 15:06:00FINAL REPORT CT CHEST, ABDOMEN, AND PELVIS [...] 15:06:57 CT, ABDOMEN, WITHOUT / WITH IV [id number] 15:06: 00FINAL REPORT CT CHEST, ABDOMEN, AND [...] Time: 12/25/2018 15:06:57 CT, PELVIS, WITH IV [id number] 15:06:00FINAL REPORT CT CHEST, ABDOMEN, AND PELVIS [...] advise attention on subsequent follow-ups. Signed: Og Sorianoeport Verified Date/ Time: 12/25/2018 15:06:57 [id number] 08:55:00 Test Item Value Reference Range Comments POC-CREATININE (BEAKER) 0.7 mg/dL 0.6-1.3 TESTED AT [facility] 7200 (test hswa=1570) [facility] [address] POC-EGFR (BEAKER) (test 140 mL/min/1.73M2 oium=1584) TISSUE [id number] 13:08:00Surgical Pathology Report Case: [id number] Authorizing Provider: Jessi Turcios MD Collected: 07/17/2018 2070 Ordering Location: [address] Received: 07/17/2018 1607 Service Pathologist: Allen [...] developed and its performance characteristics determined by [facility], Pathology Laboratory. It has not been [...] qualified to perform high complexity clinical laboratory testing.[id number] x 4Addendum electronically signed by Star Trejo MD on 07/20/2018 at 10:07 AMPART A OMENTAL BIOPSY:MODERATELY DIFFERENTIATED ADENOCARCINOMA.SEE DIAGNOSTIC COMMENT. Signing Pathologist Direct Phone Line: [phone] signed by Allen Velazquez MD on 07/19/2018 [...] and imaging studies is required for complete interpretation.32067, 13869, [id number] givenOmentum The specimen is received in a formalin-filled container and labeledwith the patient's information labeled "omentum" and consists of four off white core biopsies ranging from 0.2 to 0.4 cm, submitted entirely A1.CG/pl PERFORMED.The following special studies were performed on this case and the interpretation is incorporated in the diagnostic report above:BLOCK A1- CK7,CK20, CDX2, TTF1, PSA, SE81Exg immunohistochemistry test was developed and its performance characteristics determined by [facility], Pathology Laboratory. It has not been [...] to perform high complexity clinical laboratory testing.POCT-GLUCOSE [id number] 12:55:00 Test Item Value Reference Range Comments POC-GLUCOSE METER (BEAKER) 115 mg/dL 70-110 TESTED AT [address] (test vvxg=1278) [place] [address] POCT-GLUCOSE [id number] 08:52:00 Test Item Value Reference Range Comments POC-GLUCOSE METER (BEAKER) 137 mg/dL 70-110 TESTED AT [address] (test vpoa=1318) [place] [address] CARCINOEMBRYONIC ANTIGEN (CEA)2018-09-13 07:11:00 Test Item Value Reference Range Comments CARCINOEMBRYONIC ANTIGEN (BEAKER) (test 1302.5 ng/mL 0.0-5.0 afbh=654) [id number] 07:04:00 Test Item Value Reference Range Comments MAGNESIUM (BEAKER) (test vowi=540) 1.7 mg/dL 1.6-2.6 BASIC METABOLIC [id number] 07:04:00 Test Item Value Reference Range Comments SODIUM (BEAKER) (test 139 meq/L 136-145 fgow=287) POTASSIUM (BEAKER) (test 3.5 meq/L 3.5-5.1 yfgh=749) CHLORIDE (BEAKER) (test 105 meq/L 98-107 jftu=963) CO2 (BEAKER) (test 26 meq/L 22-29 opzu=270) BLOOD UREA NITROGEN 10 mg/dL 7-21 (BEAKER) (test sisf=755) CREATININE (BEAKER) (test 0.77 mg/dL 0.57-1.25 oahw=792) GLUCOSE RANDOM (BEAKER) 135 mg/dL 70-105 (test fqcc=139) CALCIUM (BEAKER) (test 8.9 mg/dL 8.4-10.2 rgtv=369) EGFR (BEAKER) (test 126 mL/min/1.73 sq m ESTIMATED GFR IS NOT gfzl=8182) ACCURATE CREATININE CLEARANCE IN PREDICTING GLOMERULAR FILTRATION RATE. ESTIMATED GFR IS NOT APPLICABLE FOR DIALYSIS PATIENTS. HEPATIC FUNCTION [id number] 07:04:00 Test Item Value Reference Range Comments TOTAL PROTEIN (BEAKER) (test jusu=881) 7.4 gm/dL 6.0-8.3 ALBUMIN (BEAKER) (test biyq=7968) 3.9 g/dL 3.5-5.0 BILIRUBIN TOTAL (BEAKER) (test zbtc=168) 0.6 mg/dL 0.2-1.2 BILIRUBIN DIRECT (BEAKER) (test bulk=391) 0.3 mg/dL 0.1-0.5 ALKALINE PHOSPHATASE (BEAKER) (test qkrt=795) 63 U/L 40-150 AST (SGOT) (BEAKER) (test dndk=699) 23 U/L 5-34 ALT (SGPT) (BEAKER) (test pzcd=388) 37 U/L 6-55 CBC W/PLT COUNT & AUTO [id number] 06:29:00 Test Item Value Reference Range Comments WHITE BLOOD CELL COUNT (BEAKER) (test qdmd=095) 9.8 K/ L 3.5-10.5 RED BLOOD CELL COUNT (BEAKER) (test uxib=876) 4.61 M/ L 4.63-6.08 HEMOGLOBIN (BEAKER) (test zphq=599) 12.9 GM/DL 13.7-17.5 HEMATOCRIT (BEAKER) (test qifx=349) 41.0 % 40.1-51.0 MEAN CORPUSCULAR VOLUME (BEAKER) (test kboh=065) 88.9 fL 79.0-92.2 MEAN CORPUSCULAR HEMOGLOBIN (BEAKER) (test 28.0 pg 25.7-32.2 jbcn=352) MEAN CORPUSCULAR HEMOGLOBIN CONC (BEAKER) (test 31.5 GM/DL 32.3-36.5 fhjx=536) RED CELL DISTRIBUTION WIDTH (BEAKER) (test 13.0 % 11.6-14.4 lpky=197) PLATELET COUNT (BEAKER) (test ezyh=390) 285 K/CU MM 150-450 MEAN PLATELET VOLUME (BEAKER) (test fcgv=869) 11.3 fL 9.4-12.4 NUCLEATED RED BLOOD CELLS (BEAKER) (test 0 /100 WBC 0-0 clwj=491) NEUTROPHILS RELATIVE PERCENT (BEAKER) (test 69 % zjdj=025) LYMPHOCYTES RELATIVE PERCENT (BEAKER) (test 18 % ygmy=518) MONOCYTES RELATIVE PERCENT (BEAKER) (test 11 % bsyw=671) EOSINOPHILS RELATIVE PERCENT (BEAKER) (test 2 % xnxc=841) BASOPHILS RELATIVE PERCENT (BEAKER) (test 1 % imdj=975) NEUTROPHILS ABSOLUTE COUNT (BEAKER) (test 6.71 K/ L 1.78-5.38 yotn=777) LYMPHOCYTES ABSOLUTE COUNT (BEAKER) (test 1.72 K/ L 1.32-3.57 nvfq=371) MONOCYTES ABSOLUTE COUNT (BEAKER) (test 1.10 K/ L 0.30-0.82 dqdw=027) EOSINOPHILS ABSOLUTE COUNT (BEAKER) (test 0.17 K/ L 0.04-0.54 epxp=443) BASOPHILS ABSOLUTE COUNT (BEAKER) (test 0.06 K/ L 0.01-0.08 tkgv=809) IMMATURE GRANULOCYTES-RELATIVE PERCENT (BEAKER) 0 % 0-1 (test lksw=2814) POCT-GLUCOSE [id number] 01:02:00 Test Item Value Reference Range Comments POC-GLUCOSE METER (BEAKER) 130 mg/dL 70-110 TESTED AT [address] (test nbor=9061) [facility] [address] POCT-GLUCOSE [id number] 17:48:00 Test Item Value Reference Range Comments POC-GLUCOSE METER (BEAKER) 119 mg/dL 70-110 TESTED AT [address] (test xcer=3508) [facility] [address] POCT-GLUCOSE [id number] 12:27:00 Test Item Value Reference Range Comments POC-GLUCOSE METER (BEAKER) 154 mg/dL 70-110 TESTED AT [facility] [address] [facility] (test ipyc=0285) [facility] [address] POCT-GLUCOSE [id number] 07:44:00 Test Item Value Reference Range Comments POC-GLUCOSE METER (BEAKER) 243 mg/dL 70-110 TESTED AT [facility] [address] [facility] (test wgrk=1612) [facility] [address] [id number] 06:49:00 Test Item Value Reference Range Comments MAGNESIUM (BEAKER) (test kgtd=659) 1.8 mg/dL 1.6-2.6 BASIC METABOLIC [id number] 06:49:00 Test Item Value Reference Range Comments SODIUM (BEAKER) (test 138 meq/L 136-145 vzfe=529) POTASSIUM (BEAKER) (test 3.3 meq/L 3.5-5.1 riwh=957) CHLORIDE (BEAKER) (test 103 meq/L 98-107 mvoe=527) CO2 (BEAKER) (test 27 meq/L 22-29 yfkj=077) BLOOD UREA NITROGEN 18 mg/dL 7-21 (BEAKER) (test duht=463) CREATININE (BEAKER) (test 1.08 mg/dL 0.57-1.25 fqak=361) GLUCOSE RANDOM (BEAKER) 139 mg/dL 70-105 (test jhaa=205) CALCIUM (BEAKER) (test 8.6 mg/dL 8.4-10.2 eemu=856) EGFR (BEAKER) (test 85 mL/min/1.73 sq m ESTIMATED GFR IS NOT hmnv=2665) ACCURATE CREATININE CLEARANCE IN PREDICTING GLOMERULAR FILTRATION RATE. ESTIMATED GFR IS NOT APPLICABLE FOR DIALYSIS PATIENTS. CBC W/PLT COUNT & AUTO [id number] 06:29:00 Test Item Value Reference Range Comments WHITE BLOOD CELL COUNT (BEAKER) (test ptdb=116) 9.6 K/ L 3.5-10.5 RED BLOOD CELL COUNT (BEAKER) (test rljr=530) 4.04 M/ L 4.63-6.08 HEMOGLOBIN (BEAKER) (test idol=689) 11.5 GM/DL 13.7-17.5 HEMATOCRIT (BEAKER) (test ijvz=157) 36.5 % 40.1-51.0 MEAN CORPUSCULAR VOLUME (BEAKER) (test iclb=685) 90.3 fL 79.0-92.2 MEAN CORPUSCULAR HEMOGLOBIN (BEAKER) (test 28.5 pg 25.7-32.2 kqfp=965) MEAN CORPUSCULAR HEMOGLOBIN CONC (BEAKER) (test 31.5 GM/DL 32.3-36.5 nwxx=344) RED CELL DISTRIBUTION WIDTH (BEAKER) (test 13.1 % 11.6-14.4 rdmg=232) PLATELET COUNT (BEAKER) (test gpwu=142) 238 K/CU MM 150-450 MEAN PLATELET VOLUME (BEAKER) (test eypo=450) 11.3 fL 9.4-12.4 NUCLEATED RED BLOOD CELLS (BEAKER) (test 0 /100 WBC 0-0 xftp=884) NEUTROPHILS RELATIVE PERCENT (BEAKER) (test 71 % ofiw=051) LYMPHOCYTES RELATIVE PERCENT (BEAKER) (test 15 % mmms=089) MONOCYTES RELATIVE PERCENT (BEAKER) (test 12 % nlbu=364) EOSINOPHILS RELATIVE PERCENT (BEAKER) (test 2 % pfwx=734) BASOPHILS RELATIVE PERCENT (BEAKER) (test 1 % wkxk=020) NEUTROPHILS ABSOLUTE COUNT (BEAKER) (test 6.74 K/ L 1.78-5.38 rkar=935) LYMPHOCYTES ABSOLUTE COUNT (BEAKER) (test 1.42 K/ L 1.32-3.57 qrtx=743) MONOCYTES ABSOLUTE COUNT (BEAKER) (test 1.17 K/ L 0.30-0.82 wtff=788) EOSINOPHILS ABSOLUTE COUNT (BEAKER) (test 0.14 K/ L 0.04-0.54 qsej=386) BASOPHILS ABSOLUTE COUNT (BEAKER) (test 0.06 K/ L 0.01-0.08 relq=050) IMMATURE GRANULOCYTES-RELATIVE PERCENT (BEAKER) 0 % 0-1 (test lful=4757) POCT-GLUCOSE [id number] 00:36:00 Test Item Value Reference Range Comments POC-GLUCOSE METER (BEAKER) 141 mg/dL 70-110 TESTED AT [facility] [address] [facility] (test avsn=5282) [facility] [address] [place], FRINGE KNOTTER IN OR/30 MINUTE [id number] 19:40:00Reason for exam:-> DURING PROCEDUREBRONCHFINAL REPORT Fluoroscopy 5 views intraoperative 09/11/2018 7:39 PM CLINICAL HISTORY: Instrument localization COMPARISON: None available IMPRESSION: Please correlate imaging report findings with the procedure note prepared by Dr. Cordova, as an intra-procedure imaging consultation was not requested. Reported fluoroscopy time: 525.3 seconds. Signed : Chau Gasca Verified Date/Time: 09/11/2018 19:40:28 Reading Location: [facility] Radiology Reading Room POCT-GLUCOSE [id number] 18:32: 00 Test Item Value Reference Range Comments POC-GLUCOSE METER (BEAKER) 116 mg/dL 70-110 TESTED AT [address] (test jwli=9202) [facility] [address] POCT-GLUCOSE [id number] 12:08:00 Test Item Value Reference Range Comments POC-GLUCOSE METER (BEAKER) 156 mg/dL 70-110 TESTED AT [address] (test wlqw=6381) [place] [address] [id number] 09:06:00 Test Item Value Reference Range Comments MAGNESIUM (BEAKER) (test atim=272) 1.9 mg/dL 1.6-2.6 [id number] 09:06:00 Test Item Value Reference Range Comments PHOSPHORUS (BEAKER) (test dbid=845) 3.8 mg/dL 2.3-4.7 BASIC METABOLIC [id number] 06:49:00 Test Item Value Reference Range Comments SODIUM (BEAKER) (test 139 meq/L 136-145 nbma=491) POTASSIUM (BEAKER) (test 3.0 meq/L 3.5-5.1 efvg=536) CHLORIDE (BEAKER) (test 100 meq/L 98-107 kqgz=682) CO2 (BEAKER) (test 28 meq/L 22-29 rloy=121) BLOOD UREA NITROGEN 13 mg/dL 7-21 (BEAKER) (test ibzu=573) CREATININE (BEAKER) (test 0.83 mg/dL 0.57-1.25 pwcz=685) GLUCOSE RANDOM (BEAKER) 135 mg/dL 70-105 (test oull=607) CALCIUM (BEAKER) (test 9.2 mg/dL 8.4-10.2 ysez=248) EGFR (BEAKER) (test 116 mL/min/1.73 sq m ESTIMATED GFR IS NOT eofj=5663) ACCURATE CREATININE CLEARANCE IN PREDICTING GLOMERULAR FILTRATION RATE. ESTIMATED GFR IS NOT APPLICABLE FOR DIALYSIS PATIENTS. POCT-GLUCOSE [id number] 06:36:00 Test Item Value Reference Range Comments POC-GLUCOSE METER (BEAKER) 161 mg/dL 70-110 TESTED AT [facility] [address] [facility] (test wyak=4577) [facility] [address] CBC W/PLT COUNT & AUTO [id number] 06:28:00 Test Item Value Reference Range Comments WHITE BLOOD CELL COUNT (BEAKER) (test uzxr=770) 10.7 K/ L 3.5-10.5 RED BLOOD CELL COUNT (BEAKER) (test rejk=004) 4.72 M/ L 4.63-6.08 HEMOGLOBIN (BEAKER) (test vqqp=808) 13.7 GM/DL 13.7-17.5 HEMATOCRIT (BEAKER) (test ogqt=107) 42.6 % 40.1-51.0 MEAN CORPUSCULAR VOLUME (BEAKER) (test gcyz=679) 90.3 fL 79.0-92.2 MEAN CORPUSCULAR HEMOGLOBIN (BEAKER) (test 29.0 pg 25.7-32.2 ifjk=166) MEAN CORPUSCULAR HEMOGLOBIN CONC (BEAKER) (test 32.2 GM/DL 32.3-36.5 crwy=065) RED CELL DISTRIBUTION WIDTH (BEAKER) (test 12.9 % 11.6-14.4 myql=609) PLATELET COUNT (BEAKER) (test qsaa=994) 292 K/CU MM 150-450 MEAN PLATELET VOLUME (BEAKER) (test flni=561) 11.3 fL 9.4-12.4 NUCLEATED RED BLOOD CELLS (BEAKER) (test 0 /100 WBC 0-0 afof=540) NEUTROPHILS RELATIVE PERCENT (BEAKER) (test 75 % yoqx=992) LYMPHOCYTES RELATIVE PERCENT (BEAKER) (test 13 % qnvi=497) MONOCYTES RELATIVE PERCENT (BEAKER) (test 11 % dnbm=358) EOSINOPHILS RELATIVE PERCENT (BEAKER) (test 0 % tbge=697) BASOPHILS RELATIVE PERCENT (BEAKER) (test 0 % dcfx=531) NEUTROPHILS ABSOLUTE COUNT (BEAKER) (test 7.97 K/ L 1.78-5.38 cuwn=947) LYMPHOCYTES ABSOLUTE COUNT (BEAKER) (test 1.41 K/ L 1.32-3.57 ktpf=544) MONOCYTES ABSOLUTE COUNT (BEAKER) (test 1.18 K/ L 0.30-0.82 qhyi=404) EOSINOPHILS ABSOLUTE COUNT (BEAKER) (test 0.04 K/ L 0.04-0.54 mtbb=958) BASOPHILS ABSOLUTE COUNT (BEAKER) (test 0.03 K/ L 0.01-0.08 alow=195) IMMATURE GRANULOCYTES-RELATIVE PERCENT (BEAKER) 1 % 0-1 (test eprh=7257) POCT-GLUCOSE [id number] 01:34:00 Test Item Value Reference Range Comments POC-GLUCOSE METER (BEAKER) 135 mg/dL 70-110 TESTED AT [address] (test elof=7302) [place] [id number] POCT-GLUCOSE [id number] 09:00:00 Test Item Value Reference Range Comments POC-GLUCOSE METER (BEAKER) 195 mg/dL 70-110 TESTED AT [address] (test mioo=8143) [facility] [address] BLOOD [id number] 06:00:00 Test Item Value Reference Range Comments CULTURE (BEAKER) (test scmn=9042) No growth in 5 days BLOOD [id number] 06:00:00 Test Item Value Reference Range Comments CULTURE (BEAKER) (test iyji=3678) No growth in 5 days BASIC METABOLIC [id number] 05:43:00 Test Item Value Reference Range Comments SODIUM (BEAKER) (test 141 meq/L 136-145 xhhw=119) POTASSIUM (BEAKER) (test 3.6 meq/L 3.5-5.1 hqle=719) CHLORIDE (BEAKER) (test 106 meq/L 98-107 vwui=664) CO2 (BEAKER) (test 25 meq/L 22-29 jjds=510) BLOOD UREA NITROGEN 9 mg/dL 7-21 (BEAKER) (test waod=717) CREATININE (BEAKER) (test 0.80 mg/dL 0.57-1.25 plcu=332) GLUCOSE RANDOM (BEAKER) 119 mg/dL 70-105 (test hhtu=019) CALCIUM (BEAKER) (test 8.9 mg/dL 8.4-10.2 mnzd=938) EGFR (BEAKER) (test 121 mL/min/1.73 sq m ESTIMATED GFR IS NOT wcsb=7388) ACCURATE CREATININE CLEARANCE IN PREDICTING GLOMERULAR FILTRATION RATE. ESTIMATED GFR IS NOT APPLICABLE FOR DIALYSIS PATIENTS. CBC W/PLT COUNT & AUTO [id number] 05:01:00 Test Item Value Reference Range Comments WHITE BLOOD CELL COUNT (BEAKER) (test uhys=999) 7.2 K/ L 3.5-10.5 RED BLOOD CELL COUNT (BEAKER) (test yeit=202) 4.62 M/ L 4.63-6.08 HEMOGLOBIN (BEAKER) (test qstf=407) 13.4 GM/DL 13.7-17.5 HEMATOCRIT (BEAKER) (test ohvp=361) 43.7 % 40.1-51.0 MEAN CORPUSCULAR VOLUME (BEAKER) (test yedv=239) 94.6 fL 79.0-92.2 MEAN CORPUSCULAR HEMOGLOBIN (BEAKER) (test 29.0 pg 25.7-32.2 ijaj=636) MEAN CORPUSCULAR HEMOGLOBIN CONC (BEAKER) (test 30.7 GM/DL 32.3-36.5 wgug=702) RED CELL DISTRIBUTION WIDTH (BEAKER) (test 13.4 % 11.6-14.4 vtvy=327) PLATELET COUNT (BEAKER) (test nssc=006) 224 K/CU MM 150-450 MEAN PLATELET VOLUME (BEAKER) (test jbrb=779) 11.5 fL 9.4-12.4 NUCLEATED RED BLOOD CELLS (BEAKER) (test 0 /100 WBC 0-0 cspt=296) NEUTROPHILS RELATIVE PERCENT (BEAKER) (test 66 % ixet=225) LYMPHOCYTES RELATIVE PERCENT (BEAKER) (test 19 % nmhf=595) MONOCYTES RELATIVE PERCENT (BEAKER) (test 10 % fzmu=860) EOSINOPHILS RELATIVE PERCENT (BEAKER) (test 4 % oebb=821) BASOPHILS RELATIVE PERCENT (BEAKER) (test 1 % oaip=100) NEUTROPHILS ABSOLUTE COUNT (BEAKER) (test 4.80 K/ L 1.78-5.38 frfo=510) LYMPHOCYTES ABSOLUTE COUNT (BEAKER) (test 1.39 K/ L 1.32-3.57 yjjc=280) MONOCYTES ABSOLUTE COUNT (BEAKER) (test 0.72 K/ L 0.30-0.82 gbnc=254) EOSINOPHILS ABSOLUTE COUNT (BEAKER) (test 0.25 K/ L 0.04-0.54 pfvi=738) BASOPHILS ABSOLUTE COUNT (BEAKER) (test 0.05 K/ L 0.01-0.08 cqbl=749) IMMATURE GRANULOCYTES-RELATIVE PERCENT (BEAKER) 0 % 0-1 (test wswq=4786) POCT-GLUCOSE [id number] 22:22:00 Test Item Value Reference Range Comments POC-GLUCOSE METER (BEAKER) 171 mg/dL 70-110 TESTED AT [facility] [address] [facility] (test kpte=3188) [facility] [address] ANG, TUNNEL CATH CENTRAL INS W/PORT [id number] 18:25:00Reason for exam:-> need for chemotherapy.FINAL REPORT Right internal jugular chest port insertion History: Patient requires access for chemotherapy administration. Modality: Sonography andfluoroscopy. Sedation: Versed 1.5 mg and fentanyl 50 mcg given intravenously for conscious sedation. Vital signs were monitored throughout the procedure by a nurse, and remained stable. Physician intra-service time was 30 minutes. Human Resources Project Coordinator: Singh Escamilla MD Time Analysis Clerk: Noé. Approach: Right internal jugular vein Estimated [...] needle into the right atrium. A 4 Libyan micropuncture sheath was placed. A subcutaneous tunnel [...] MDReport Verified Date/Time: 07/19 18:25:29 Reading Location: [place] [address] Angio Body Reading Room POCT- GLUCOSE [id number] 16:53:00 Test Item Value Reference Range Comments POC-GLUCOSE METER (BEAKER) 124 mg/dL 70-110 TESTED AT [address] (test bkbj=3472) [facility] [address] TISSUE [id number] 16:29:00Surgical Pathology Report Case: [id number] Authorizing Provider: Julius Umanzor MD Collected: 07/18/2018 1502 Ordering Location: [address] Received: 07/19/2018 0751 Service Pathologist: Charo Brar MD Specimen: Large Intestine, Colon - Left/Descending , mass LEFT/DESCENDING COLON, BIOPSY: - INVASIVE MODERATELY DIFFERENTIATED ADENOCARCINOMA, SITUATED PREDOMINANTLY BENEATH THE MUSCULARIS MUCOSA, WITH FOCAL NECROSISMO/pl Signing Pathologist Direct Phone Line: [phone] signed by Charo Brar MD on 07/19/2018 at 4:29 [id number] t1Rmzjzeoa of colon, colonic mass Left descending colon [...] apoptosis. Other significant features are not noted.POCT-GLUCOSE [id number] 12:32:00 Test Item Value Reference Range Comments POC-GLUCOSE METER (BEAKER) 116 mg/dL 70-110 TESTED AT [address] (test oozh=9548) [facility] [address] POCT-GLUCOSE [id number] 09:22:00 Test Item Value Reference Range Comments POC-GLUCOSE METER (BEAKER) 130 mg/dL 70-110 TESTED AT [address] (test rqmw=1108) [facility] [address] BASIC METABOLIC [id number] 06:03:00 Test Item Value Reference Range Comments SODIUM (BEAKER) (test 138 meq/L 136-145 vsxg=010) POTASSIUM (BEAKER) (test 3.3 meq/L 3.5-5.1 vqee=598) CHLORIDE (BEAKER) (test 104 meq/L 98-107 pclo=143) CO2 (BEAKER) (test 23 meq/L 22-29 bckj=301) BLOOD UREA NITROGEN 6 mg/dL 7-21 (BEAKER) (test axrk=054) CREATININE (BEAKER) (test 0.76 mg/dL 0.57-1.25 mtuf=610) GLUCOSE RANDOM (BEAKER) 122 mg/dL 70-105 (test bdcj=098) CALCIUM (BEAKER) (test 9.2 mg/dL 8.4-10.2 cgdc=380) EGFR (BEAKER) (test 128 mL/min/1.73 sq m ESTIMATED GFR IS NOT vdpu=9445) ACCURATE CREATININE CLEARANCE IN PREDICTING GLOMERULAR FILTRATION RATE. ESTIMATED GFR IS NOT APPLICABLE FOR DIALYSIS PATIENTS. PROTHROMBIN [id number] 05:34:00 Test Item Value Reference Range Comments PROTIME (BEAKER) (test txli=953) 14.2 seconds 11.7-14.7 INR (BEAKER) (test upou=797) 1.1 <=5.9 RECOMMENDED COUMADIN/WARFARIN INR THERAPY RANGESSTANDARD DOSE: 2.0 - 3.0 Includes: PROPHYLAXIS forvenous thrombosis, systemic embolization; TREATMENT for venous thrombosis and/or pulmonary embolus.HIGH RISK: Target INR is 2.5-3.5 for patients with mechanical heart valves.CBC W/PLT COUNT & AUTO [id number] 05:29:00 Test Item Value Reference Range Comments WHITE BLOOD CELL COUNT (BEAKER) (test pcxk=592) 9.1 K/ L 3.5-10.5 RED BLOOD CELL COUNT (BEAKER) (test xoqw=820) 4.61 M/ L 4.63-6.08 HEMOGLOBIN (BEAKER) (test udlq=793) 13.5 GM/DL 13.7-17.5 HEMATOCRIT (BEAKER) (test msid=555) 42.6 % 40.1-51.0 MEAN CORPUSCULAR VOLUME (BEAKER) (test dvtj=358) 92.4 fL 79.0-92.2 MEAN CORPUSCULAR HEMOGLOBIN (BEAKER) (test 29.3 pg 25.7-32.2 ludo=340) MEAN CORPUSCULAR HEMOGLOBIN CONC (BEAKER) (test 31.7 GM/DL 32.3-36.5 qxyn=288) RED CELL DISTRIBUTION WIDTH (BEAKER) (test 13.3 % 11.6-14.4 teyd=827) PLATELET COUNT (BEAKER) (test albe=916) 235 K/CU MM 150-450 MEAN PLATELET VOLUME (BEAKER) (test vtcc=628) 11.5 fL 9.4-12.4 NUCLEATED RED BLOOD CELLS (BEAKER) (test 0 /100 WBC 0-0 sele=253) NEUTROPHILS RELATIVE PERCENT (BEAKER) (test 71 % wflb=672) LYMPHOCYTES RELATIVE PERCENT (BEAKER) (test 14 % ifqi=418) MONOCYTES RELATIVE PERCENT (BEAKER) (test 11 % atbr=478) EOSINOPHILS RELATIVE PERCENT (BEAKER) (test 2 % zcjm=311) BASOPHILS RELATIVE PERCENT (BEAKER) (test 1 % etlf=688) NEUTROPHILS ABSOLUTE COUNT (BEAKER) (test 6.48 K/ L 1.78-5.38 tmrs=516) LYMPHOCYTES ABSOLUTE COUNT (BEAKER) (test 1.31 K/ L 1.32-3.57 lekt=539) MONOCYTES ABSOLUTE COUNT (BEAKER) (test 0.98 K/ L 0.30-0.82 zsfp=710) EOSINOPHILS ABSOLUTE COUNT (BEAKER) (test 0.20 K/ L 0.04-0.54 srfv=026) BASOPHILS ABSOLUTE COUNT (BEAKER) (test 0.05 K/ L 0.01-0.08 iwba=527) IMMATURE GRANULOCYTES-RELATIVE PERCENT (BEAKER) 1 % 0-1 (test ccvg=5638) POCT-GLUCOSE [id number] 23:21:00 Test Item Value Reference Range Comments POC-GLUCOSE METER (BEAKER) 127 mg/dL 70-110 TESTED AT [address] (test enyi=0888) [place] [address] POCT-GLUCOSE [id number] 17:29:00 Test Item Value Reference Range Comments POC-GLUCOSE METER (BEAKER) 116 mg/dL 70-110 TESTED AT [address] (test xalj=0964) [facility] [address] POCT-GLUCOSE [id number] 15:41:00 Test Item Value Reference Range Comments POC-GLUCOSE METER (BEAKER) 122 mg/dL 70-110 TESTED AT [address] (test nbmr=8735) [place] [id number] 15:40:00Medical Cytology Report Case: [id number] Authorizing Provider: Jessi Turcios MD Collected: 07/17/2018 1435 Ordering Location: [address] Received: 07/18/2018 0837 Service Pathologist: Alvin Arroyo MD Specimen: Peritoneal Fluid PERITONEAL FLUID (CYTOSPINS): - SUSPICIOUS FOR MALIGNANCY Signing Pathologist Direct Phone Line: [phone] signed by Alvin Arroyo MD on 07/18/2018 at 3:40 PMThere are a few atypical clusters that are suspicious for malignancy in a background of reactive mesothelial cells and chronic inflammation.[id number]; colon mass and omental nodules presents for CT-guided core biopsy of omentalnodulesPERITONEAL FLUIDPrepared 4 cytospins from 4 ml yellow blood-tinged fluidCollected: [id number]: [id number] Scott & [facility], Department of Pathology, [address] [place] [address], [facility]dkzvmL[facility], [facility] of [facility]ology, [address] [place] [address], XjsdzeLoma Linda University [facility], Department of Pathology, [address] [place] [address], BZZO-GLUCOSE [id number] 11:53:00 Test Item Value Reference Range Comments POC-GLUCOSE METER (BEAKER) 111 mg/dL 70-110 TESTED AT [address] (test urbv=1210) [place] [address] POCT-GLUCOSE [id number] 06:48:00 Test Item Value Reference Range Comments POC-GLUCOSE METER (BEAKER) 124 mg/dL 70-110 TESTED AT [address] (test sydd=5228) [place] [address] POCT-GLUCOSE [id number] 23:34:00 Test Item Value Reference Range Comments POC-GLUCOSE METER (BEAKER) 133 mg/dL 70-110 TESTED AT [address] (test eath=9301) [place] [address] BODY FLUID CELL COUNT WITH [id number] 18:38:00 Test Item Value Reference Range Comments APPEARANCE FLUID (BEAKER) (test eurq=046) Slightly Bloody Clear COLOR FLUID (BEAKER) (test thum=372) Yarelis Colorless, Straw RBC FLUID (BEAKER) (test ymih=539) 9500 /cu mm <=1 ADJUSTED WBC FLUID (BEAKER) (test 1043 /cu mm <=5 gxhw=7529) LINING CELLS (BEAKER) (test lebt=5205) 42 /cu mm <=1 NEUTROPHILS FLUID (BEAKER) (test vqpb=4861) 17 % LYMPHS FLUID (BEAKER) (test ympu=017) 28 % MONO/MACROPHAGE FLUID (BEAKER) (test 55 % zuia=985) EOSINOPHILS FLUID (BEAKER) (test rysv=816) 0 % BASO FLUID (BEAKER) (test xewh=803) 0 % CONTAINER BODY FLUID (BEAKER) (test EDTA Tube hcdg=5065) POCT-GLUCOSE [id number] 17:54:00 Test Item Value Reference Range Comments POC-GLUCOSE METER (BEAKER) 145 mg/dL 70-110 TESTED AT [facility] [address] [place] (test nely=1134) [facility] [address] CT, BIOPSY, [id number] 16:57:00Reason for exam:->Need biopsy of omentum for [...] MDReport Verified Date/Time: 2017 16:57:37 Reading Location: [address] Body Reading Room ALBUMIN , BODY [id number] 16:12:00 Test Item Value Reference Range Comments ALBUMIN FLUID (BEAKER) (test wwhg=071) 2.9 gm/dL Reference Range: No Normals Assay performance has not been validated for this type of specimen.PROTEIN, BODY [id number] 16:12:00 Test Item Value Reference Range Comments PROTEIN FLUID (BEAKER) (test lsbs=049) 5.0 g/dL Absence of reference range indicates that normals have not been defined.Assay performance has not been validated for this type of specimen.PT/[id number] 13:18:00 Test Item Value Reference Range Comments PROTIME (BEAKER) (test jghu=755) 14.6 seconds 11.7-14.7 INR (BEAKER) (test brqh=016) 1.1 <=5.9 PARTIAL THROMBOPLASTIN TIME (BEAKER) (test 27.7 seconds 22.5-36.0 rksl=499) RECOMMENDED COUMADIN/WARFARIN INR THERAPY RANGESSTANDARD DOSE: 2.0 - 3.0 Includes: PROPHYLAXIS forvenous thrombosis, systemic embolization; TREATMENT for venous thrombosis and/or pulmonary embolus.HIGH RISK: Target INR is 2.5-3.5 for patients with mechanical heart valves.CBC W/PLT COUNT & AUTO [id number] 13:08:00 Test Item Value Reference Range Comments WHITE BLOOD CELL COUNT (BEAKER) (test prlh=383) 10.4 K/ L 3.5-10.5 RED BLOOD CELL COUNT (BEAKER) (test nmqn=608) 4.53 M/ L 4.63-6.08 HEMOGLOBIN (BEAKER) (test pmpu=493) 13.1 GM/DL 13.7-17.5 HEMATOCRIT (BEAKER) (test kpft=962) 43.3 % 40.1-51.0 MEAN CORPUSCULAR VOLUME (BEAKER) (test akjw=649) 95.6 fL 79.0-92.2 MEAN CORPUSCULAR HEMOGLOBIN (BEAKER) (test 28.9 pg 25.7-32.2 ngdj=446) MEAN CORPUSCULAR HEMOGLOBIN CONC (BEAKER) (test 30.3 GM/DL 32.3-36.5 xdox=785) RED CELL DISTRIBUTION WIDTH (BEAKER) (test 13.5 % 11.6-14.4 hblc=429) PLATELET COUNT (BEAKER) (test jfun=600) 236 K/CU MM 150-450 MEAN PLATELET VOLUME (BEAKER) (test ikid=828) 11.4 fL 9.4-12.4 NUCLEATED RED BLOOD CELLS (BEAKER) (test 0 /100 WBC 0-0 oljk=214) NEUTROPHILS RELATIVE PERCENT (BEAKER) (test 73 % zqir=283) LYMPHOCYTES RELATIVE PERCENT (BEAKER) (test 15 % lasw=413) MONOCYTES RELATIVE PERCENT (BEAKER) (test 10 % fijs=713) EOSINOPHILS RELATIVE PERCENT (BEAKER) (test 1 % azhg=860) BASOPHILS RELATIVE PERCENT (BEAKER) (test 1 % rvme=695) NEUTROPHILS ABSOLUTE COUNT (BEAKER) (test 7.56 K/ L 1.78-5.38 ptya=530) LYMPHOCYTES ABSOLUTE COUNT (BEAKER) (test 1.60 K/ L 1.32-3.57 cojl=610) MONOCYTES ABSOLUTE COUNT (BEAKER) (test 1.01 K/ L 0.30-0.82 rbth=126) EOSINOPHILS ABSOLUTE COUNT (BEAKER) (test 0.14 K/ L 0.04-0.54 zahn=416) BASOPHILS ABSOLUTE COUNT (BEAKER) (test 0.06 K/ L 0.01-0.08 ezcb=161) IMMATURE GRANULOCYTES-RELATIVE PERCENT (BEAKER) 0 % 0-1 (test uuhd=2629) CT, [id number] 12:37:00CT abdomen pelvis with IV and PO [...] MDReport Verified Date/Time: 07/17/2018 12:37:32 Reading Location: [facility] B1 C[address]Y CT Body Reading Room CT, CHEST, WITH [id number] 12:37:00FINAL REPORT TECHNIQUE: CT of the [...] MDReport Verified Date/Time: 07/17/2018 12:37:32 Reading Location: [facility] C013 CT Body Reading Room 12 :37 PMPOCT-GLUCOSE [id number] 12:31:00 Test Item Value Reference Range Comments POC-GLUCOSE METER (BEAKER) 188 mg/dL 70-110 TESTED AT [address] (test bgpk=2657) [facility] [id number] CBC W/PLT COUNT & AUTO [id number] 12:21:00 Test Item Value Reference Range Comments WHITE BLOOD CELL COUNT (BEAKER) (test htaw=548) 10.1 K/ L 3.5-10.5 RED BLOOD CELL COUNT (BEAKER) (test dgwn=245) 4.41 M/ L 4.63-6.08 HEMOGLOBIN (BEAKER) (test umuj=945) 13.1 GM/DL 13.7-17.5 HEMATOCRIT (BEAKER) (test slfp=647) 42.6 % 40.1-51.0 MEAN CORPUSCULAR VOLUME (BEAKER) (test duts=428) 96.6 fL 79.0-92.2 MEAN CORPUSCULAR HEMOGLOBIN (BEAKER) (test 29.7 pg 25.7-32.2 dhbk=705) MEAN CORPUSCULAR HEMOGLOBIN CONC (BEAKER) (test 30.8 GM/DL 32.3-36.5 vkar=618) RED CELL DISTRIBUTION WIDTH (BEAKER) (test 14.0 % 11.6-14.4 fpij=794) PLATELET COUNT (BEAKER) (test egrc=143) 232 K/CU MM 150-450 MEAN PLATELET VOLUME (BEAKER) (test pzup=579) 12.5 fL 9.4-12.4 NUCLEATED RED BLOOD CELLS (BEAKER) (test 0 /100 WBC 0-0 goyz=517) NEUTROPHILS RELATIVE PERCENT (BEAKER) (test 73 % obox=004) LYMPHOCYTES RELATIVE PERCENT (BEAKER) (test 14 % jxjp=733) MONOCYTES RELATIVE PERCENT (BEAKER) (test 10 % xeqh=696) EOSINOPHILS RELATIVE PERCENT (BEAKER) (test 1 % zdqj=609) BASOPHILS RELATIVE PERCENT (BEAKER) (test 1 % ldfe=136) NEUTROPHILS ABSOLUTE COUNT (BEAKER) (test 7.40 K/ L 1.78-5.38 akje=246) LYMPHOCYTES ABSOLUTE COUNT (BEAKER) (test 1.45 K/ L 1.32-3.57 wzkt=615) MONOCYTES ABSOLUTE COUNT (BEAKER) (test 1.01 K/ L 0.30-0.82 aixy=766) EOSINOPHILS ABSOLUTE COUNT (BEAKER) (test 0.13 K/ L 0.04-0.54 qtqa=666) BASOPHILS ABSOLUTE COUNT (BEAKER) (test 0.07 K/ L 0.01-0.08 lgak=910) IMMATURE GRANULOCYTES-RELATIVE PERCENT (BEAKER) 0 % 0-1 (test itmj=1893) HEMOGLOBIN [id number] 10:07:00 Test Item Value Reference Range Comments HEMOGLOBIN A1C (BEAKER) (test obay=018) 5.6 % 4.3-6.1 BASIC METABOLIC [id number] 06:33:00 Test Item Value Reference Range Comments SODIUM (BEAKER) (test 138 meq/L 136-145 eyyq=791) POTASSIUM (BEAKER) (test 3.4 meq/L 3.5-5.1 meft=246) CHLORIDE (BEAKER) (test 105 meq/L 98-107 moye=435) CO2 (BEAKER) (test 24 meq/L 22-29 qodr=526) BLOOD UREA NITROGEN 10 mg/dL 7-21 (BEAKER) (test krus=944) CREATININE (BEAKER) (test 0.80 mg/dL 0.57-1.25 axcv=205) GLUCOSE RANDOM (BEAKER) 122 mg/dL 70-105 (test pckg=423) CALCIUM (BEAKER) (test 8.5 mg/dL 8.4-10.2 hyfd=671) EGFR (BEAKER) (test 121 mL/min/1.73 sq m ESTIMATED GFR IS NOT nslk=2312) ACCURATE CREATININE CLEARANCE IN PREDICTING GLOMERULAR FILTRATION RATE. ESTIMATED GFR IS NOT APPLICABLE FOR DIALYSIS PATIENTS. POCT-GLUCOSE [id number] 05:17:00 Test Item Value Reference Range Comments POC-GLUCOSE METER (BEAKER) 133 mg/dL 70-110 TESTED AT [address] (test kkmz=8149) [place] [address] POCT-GLUCOSE [id number] 23:45:00 Test Item Value Reference Range Comments POC-GLUCOSE METER (BEAKER) 121 mg/dL 70-110 TESTED AT [address] (test ohxd=6444) [place] [address] POCT-GLUCOSE [id number] 17:45:00 Test Item Value Reference Range Comments POC-GLUCOSE METER (BEAKER) 112 mg/dL 70-110 TESTED AT [address] (test xpsv=9576) [place] [address] [id number] 14:30:00 Test Item Value Reference Range Comments ALBUMIN (BEAKER) (test cckb=3762) 3.9 g/dL 3.5-5.0 POCT-GLUCOSE [id number] 12:40:00 Test Item Value Reference Range Comments POC-GLUCOSE METER (BEAKER) 110 mg/dL 70-110 TESTED AT [address] (test togw=4887) [place] [address] POCT-GLUCOSE [id number] 08:32:00 Test Item Value Reference Range Comments POC-GLUCOSE METER (BEAKER) 137 mg/dL 70-110 TESTED AT [address] (test yxbn=7747) [place] [address] BASIC METABOLIC [id number] 06:10:00 Test Item Value Reference Range Comments SODIUM (BEAKER) (test 143 meq/L 136-145 jtoz=932) POTASSIUM (BEAKER) (test 3.4 meq/L 3.5-5.1 blnl=619) CHLORIDE (BEAKER) (test 105 meq/L 98-107 nfst=674) CO2 (BEAKER) (test 26 meq/L 22-29 uzcm=659) BLOOD UREA NITROGEN 13 mg/dL 7-21 (BEAKER) (test fzyy=983) CREATININE (BEAKER) (test 0.96 mg/dL 0.57-1.25 mvse=837) GLUCOSE RANDOM (BEAKER) 90 mg/dL 70-105 (test cudv=189) CALCIUM (BEAKER) (test 9.1 mg/dL 8.4-10.2 ivrj=821) EGFR (BEAKER) (test 98 mL/min/1.73 sq m ESTIMATED GFR IS NOT sfoj=3744) ACCURATE CREATININE CLEARANCE IN PREDICTING GLOMERULAR FILTRATION RATE. ESTIMATED GFR IS NOT APPLICABLE FOR DIALYSIS PATIENTS. POCT-GLUCOSE [id number] 00:28:00 Test Item Value Reference Range Comments POC-GLUCOSE METER (BEAKER) 108 mg/dL 70-110 TESTED AT [address] (test wjcz=3358) [facility] [address] POCT-GLUCOSE [id number] 00:28:00 Test Item Value Reference Range Comments POC-GLUCOSE METER (BEAKER) 107 mg/dL 70-110 TESTED AT [address] (test pqfo=7578) [facility] [address] POCT-GLUCOSE [id number] 17:40:00 Test Item Value Reference Range Comments POC-GLUCOSE METER (BEAKER) 137 mg/dL 70-110 TESTED AT [address] (test ndml=1992) [facility] [address] [place], [place]TER IN [place]/30 MINUTE [id number] 14:44:00INTRA OP IMAGINGReason for exam:->BOWEL OBSTRUCTIONFINAL REPORT Intraoperative fluoroscopy. CLINICAL HISTORY: BOWEL OBSTRUCTION.FINDINGS: Seven fluoroscopically acquired images were acquired by the referring physician. An intraoperative verbal report was not requested. Fluoroscopy was not performed by the undersigned. Fluoroscopy time: 129 seconds. Seven images. Signed: Rj Angel Verified Date/Time: 14:44:01 Reading Location: [address] Consult Reading Room POCT- GLUCOSE [id number] 12:28:00 Test Item Value Reference Range Comments POC-GLUCOSE METER (BEAKER) 154 mg/dL 70-110 TESTED AT [facility] [address] [place] (test vdap=6336) [facility] [address] CARCINOEMBRYONIC ANTIGEN (CEA)2018-07-15 11:45:00 Test Item Value Reference Range Comments CARCINOEMBRYONIC ANTIGEN (BEAKER) (test 766.0 ng/mL 0.0-5.0 bqrc=388) RAD, CHEST, 1 VIEW, NON [id number] 11:43:00Reason for exam:->pnaShould this be performed at [...] Mixon Verified Date/Time: 2017 11:43:39 Reading Location: [address] Body Reading Room HEPATIC FUNCTION [id number] 09:19:00 Test Item Value Reference Range Comments TOTAL PROTEIN (BEAKER) (test wyzy=008) 8.1 gm/dL 6.0-8.3 ALBUMIN (BEAKER) (test krtw=3121) 4.4 g/dL 3.5-5.0 BILIRUBIN TOTAL (BEAKER) (test ccwb=005) 0.6 mg/dL 0.2-1.2 BILIRUBIN DIRECT (BEAKER) (test pqve=282) 0.3 mg/dL 0.1-0.5 ALKALINE PHOSPHATASE (BEAKER) (test khnw=190) 58 U/L 40-150 AST (SGOT) (BEAKER) (test kzbz=378) 16 U/L 5-34 ALT (SGPT) (BEAKER) (test puty=511) 19 U/L 6-55 POCT-GLUCOSE [id number] 08:21:00 Test Item Value Reference Range Comments POC-GLUCOSE METER (BEAKER) 130 mg/dL 70-110 TESTED AT [facility] [address] [facility] (test dzui=7558) [facility] [address] RESPIRATORY PANEL [id number] 07:29:00 Test Item Value Reference Range Comments HUMAN METAPNEUMOVIRUS (BEAKER) (test Not detected Not detected, Equivocal tcvo=3366) RHINOVIRUS (BEAKER) (test fmbj=5989) Not detected Not detected, Equivocal INFLUENZA A (BEAKER) (test vavl=3569) Not detected Not detected, Equivocal INFLUENZA A (NO SUBTYPE) (test Not detected, Equivocal ozhj=6596) INFLUENZA A SUBTYPE H1 (BEAKER) (test Not detected, Equivocal ycjd=9403) INFLUENZA A SUBTYPE H3 (BEAKER) (test Not detected, Equivocal ebxl=5950) INFLUENZA A SUBTYPE H1-2009 (BEAKER) Not detected, Equivocal (test wvox=5150) INFLUENZA B (BEAKER) (test zilt=0387) Not detected Not detected, Equivocal RESPIRATORY SYNCYTIAL VIRUS (BEAKER) Not detected Not detected, Equivocal (test gtru=1280) PARAINFLUENZA VIRUS 1 (BEAKER) (test Not detected Not detected, Equivocal kbvl=7845) PARAINFLUENZA VIRUS 2 (BEAKER) (test Not detected Not detected, Equivocal qlar=2996) PARAINFLUENZA VIRUS 3 (BEAKER) (test Not detected Not detected, Equivocal esij=0791) PARAINFLUENZA VIRUS 4 (BEAKER) (test Not detected Not detected, Equivocal nbkh=7039) ADENOVIRUS (BEAKER) (test kxxf=6858) Not detected Not detected, Equivocal CORONAVIRUS 229E (BEAKER) (test Not detected Not detected, Equivocal ofpp=1319) CORONAVIRUS HKU1 (BEAKER) (test Not detected Not detected, Equivocal epsy=1699) CORONAVIRUS NL63 (BEAKER) (test Not detected Not detected, Equivocal vvrv=4411) CORONAVIRUS OC43 (BEAKER) (test Not detected Not detected, Equivocal ghjf=9180) BORDETELLA PERTUSSIS (BEAKER) (test Not detected Not detected, Equivocal nahu=4379) CHLAMYDOPHILA PNEUMONIAE (BEAKER) (test Not detected Not detected, Equivocal ufwi=0128) MYCOPLASMA PNEUMONIAE (BEAKER) (test Not detected Not detected, Equivocal adyy=2959) Other viruses and bacteria not targeted by this PCR panel cannot be excluded; therefore clinical correlation and follow up of serology, culture results, and other molecular studies is required. The results are not intended to be used as the sole means for clinical diagnosis or patient management decisions. This sample was tested at the [facility] using the [employer] Respiratory Panel. It is FDA cleared and has been verified and approved by the [facility] for clinical use on nasal swab specimens. It is not FDA-cleared for use on bronchial wash/lavage samples. However, for this sample type, validation was performed and test characteristics were determined and approved, by [facility] for clinical use under the Clinical Laboratory Improvement Amendments (CLIA) of 1988 requirements. Therefore, FDA clearance isnot required. This laboratory is CLIA-certified and [employer] (CAP)-accredited to perform high complexity testing.LEGIONELLA ANTIGEN, [id number] 04:44:00 Test Item Value Reference Range Comments L. PNEUMOPHILA SEROGP 1 Negative - see Negative for L. UR AG (AKER) (test comment pneumophila serogroup 1 xdzi=2692) antigen, suggesting no recent or current infection with this serogroup. Legionellosis cannot be ruled out since other serogroups and species may cause disease. STREP PNEUMONIAE [id number] 04:43:00 Test Item Value Reference Range Comments STREP PNEUMONIAE ANTIGEN Presumptive negative for Presumptive negative for (BEAKER) (test pneumococcal pneumonia - pneumococcal pneumonia - rnxh=7540) see comment see commen Presumptive negative for pneumococcal pneumonia, suggesting no current or recent pneumococcal infection. Infection due to S. pneumoniae cannot be ruled out since the antigen present in the sample may be below the detection limit of the test.POCT-GLUCOSE [id number] 01:51:00 Test Item Value Reference Range Comments POC-GLUCOSE METER (Sunrun) 127 mg/dL 70-110 TESTED AT [facility] [address] (test xuvg=2308) [facility] [address] BASIC METABOLIC [id number] 00:38:00 Test Item Value Reference Range Comments SODIUM (BEAKER) (test 136 meq/L 136-145 gtsa=552) POTASSIUM (BEAKER) (test 3.3 meq/L 3.5-5.1 utpz=250) CHLORIDE (BEAKER) (test 101 meq/L 98-107 gvqp=218) CO2 (BEAKER) (test 22 meq/L 22-29 hxmp=962) BLOOD UREA NITROGEN 11 mg/dL 7-21 (BEAKER) (test phwl=016) CREATININE (BEAKER) (test 0.85 mg/dL 0.57-1.25 exul=059) GLUCOSE RANDOM (BEAKER) 114 mg/dL 70-105 (test kcxv=948) CALCIUM (BEAKER) (test 9.3 mg/dL 8.4-10.2 isrg=450) EGFR (BEAKER) (test 113 mL/min/1.73 sq m ESTIMATED GFR IS NOT qfey=5573) ACCURATE CREATININE CLEARANCE IN PREDICTING GLOMERULAR FILTRATION RATE. ESTIMATED GFR IS NOT APPLICABLE FOR DIALYSIS PATIENTS. RAPID INFLUENZA A&B [id number] 00:32:00 Test Item Value Reference Range Comments RAPID INFLUENZA A AG (BEAKER) (test Negative Negative, Inconclusive alar=8586) RAPID INFLUENZA B AG (BEAKER) (test Negative Negative, Inconclusive kocw=9523) CBC W/PLT COUNT & AUTO [id number] 22:58:00 Test Item Value Reference Range Comments WHITE BLOOD CELL COUNT (BEAKER) (test vtej=126) 10.9 K/ L 3.5-10.5 RED BLOOD CELL COUNT (BEAKER) (test qvud=718) 4.96 M/ L 4.63-6.08 HEMOGLOBIN (BEAKER) (test zpsq=666) 14.5 GM/DL 13.7-17.5 HEMATOCRIT (BEAKER) (test nkjp=252) 46.1 % 40.1-51.0 MEAN CORPUSCULAR VOLUME (BEAKER) (test skng=280) 92.9 fL 79.0-92.2 MEAN CORPUSCULAR HEMOGLOBIN (BEAKER) (test 29.2 pg 25.7-32.2 yarc=495) MEAN CORPUSCULAR HEMOGLOBIN CONC (BEAKER) (test 31.5 GM/DL 32.3-36.5 hfov=014) RED CELL DISTRIBUTION WIDTH (BEAKER) (test 13.9 % 11.6-14.4 ivcm=165) PLATELET COUNT (BEAKER) (test iinw=211) 277 K/CU MM 150-450 MEAN PLATELET VOLUME (BEAKER) (test ufka=046) 11.2 fL 9.4-12.4 NUCLEATED RED BLOOD CELLS (BEAKER) (test 0 /100 WBC 0-0 etfz=833) NEUTROPHILS RELATIVE PERCENT (BEAKER) (test 81 % qzyc=225) LYMPHOCYTES RELATIVE PERCENT (BEAKER) (test 11 % pymp=278) MONOCYTES RELATIVE PERCENT (BEAKER) (test 7 % moij=996) EOSINOPHILS RELATIVE PERCENT (BEAKER) (test 0 % cfgk=342) BASOPHILS RELATIVE PERCENT (BEAKER) (test 0 % evbk=943) NEUTROPHILS ABSOLUTE COUNT (BEAKER) (test 8.86 K/ L 1.78-5.38 xpfo=157) LYMPHOCYTES ABSOLUTE COUNT (BEAKER) (test 1.21 K/ L 1.32-3.57 fepf=387) MONOCYTES ABSOLUTE COUNT (BEAKER) (test 0.79 K/ L 0.30-0.82 qoyh=584) EOSINOPHILS ABSOLUTE COUNT (BEAKER) (test 0.01 K/ L 0.04-0.54 wzun=189) BASOPHILS ABSOLUTE COUNT (BEAKER) (test 0.02 K/ L 0.01-0.08 qdpy=854) IMMATURE GRANULOCYTES-RELATIVE PERCENT (BEAKER) 1 % 0-1 (test pffo=6796)
--- OUTSIDE RECORDS SUMMARY | 2019-11-26 17:37 | XMS REPORT | Summary of Care ---
:1960 Author Organization [facility] [place] [address] Care Team Providers Name Role Phone Graham Goodwin MD Primary Care Provider Reason for Visit Reason Comments Follow Up Colon cancer metastasized to multiple sites. Encounter Details Date Type Department Care Team Description [facility] Azam Morris NP cancer metastasized [facility] [address] [facility] to multiple sites. ) Cancer Center 7th Floor, [address] [facility] [address] 7th Floor, [address] [place] [address] [place] [address] Allergies No Known Allergiesdocumented as of this encounter (statuses as of 10/23/2019) Medications Medication Sig Dispensed Refills Start Date [...] 2.5-2.5 % cream application topically as needed. Morphine Sulfate ER 15 Take 15 mg by 60 Each 0 03/12/2019 Active MG [id number]: mouth every 12 Colon cancer hours. metastasized to multiple sites (HCCode), Cancer related pain glimepiride (AMARYL) 4 Take 1 Tab by 90 Tab 3 05/23/2019 Active MG tablet mouth every morning. Insulin Aspart Prot & Inject 20 Units 0 06/22/2019 Active Aspart (NOVOLOG MIX into the skin. 70/30 FLEXPEN) (70-30) 100 UNIT/ML SUPN hydrocodone-acetaminop Take 1 Tab by 120 Tab 0 07/30/2019 Active hen (NORCO) 10-325 MG mouth every 6 per tabletIndications: hours as needed Colon cancer for Pain. metastasized to Eprescribed multiple sites (HCCode), Cancer related pain Tamsulosin HCl 0.4 MG TAKE 1 CAPSULE BY 90 Cap 1 08/24/2019 Active CAPSIndications: MOUTH EVERY DAY Benign prostatic hyperplasia with urinary frequency [facility] PURELA[facility] TAKE 17 G BY MOUTH 510 g 2 09/14/2019 Active powderIndications: DAILY NEEDED Colon cancer WITH WATER OR metastasized to JUICE multiple sites (HCCode) documented as of this encounter (statuses as of 10/23/2019) Active Problems Problem Noted Date Non-insulin dependent type 2 diabetes mellitus (HCCode) 05/23/2019 Colon cancer metastasized to multiple sites (HCCode) 07/24/2018 documented as of this encounter (statuses as of 10/23/2019) Social History Tobacco Use Types Packs/Day Years [...] Sign Reading Time Taken Comments Blood Pressure 134/79 10/23/2019 8:40 AM MED AIDE Pulse 73 10/23/2019 8:40 AM MED AIDE Temperature - - Respiratory Rate 16 10/23/2019 8:40 AM MED AIDE Oxygen Saturation - - Inhaled Oxygen Concentration - - Weight 144.2 kg (318 lb) 10/23/2019 8:40 AM MED AIDE Height 180.3 cm (5' 11") 10/23/2019 8:40 AM MED AIDE Body Mass Index 44.35 10/23/2019 8:40 AM MED AIDE documented in this encounter Progress Notes Kyle Hernandez MD - 10/23/2019 9:00 AM CST Patient: Lisseth Gonzalez Jr. 1960 58 y.o. with stage IV colon cancer diagnosed at [facility], here for f/u 10/23/2019 S: last cycle held due to concern for CV issues. missed his appt with cardiology , rescheduled for later today. Pt still c/o SOB, even with rest. Worse than it was last time. Constipated but able to have BMs, thinks that his abd pain is related to constipation. No GI bleeding. Urinating but "coming out slow." Neuropathy stable. No CP, no N/V, no F/C/NS. ECOG PS 2 Course summary: - admitted to [facility] for obstipation - cScope 07/15/18 ([email or web address]@ [facility]): A malignant-appearing, intrinsic severe stenosis measuring 3 mm (inner diameter) was found in the descending colon and was non-traversed. This was stented with a 25 mm x 87 mm Ultraflex Precision stent under fluoroscopic guidance. Estimated blood loss was minimal. - CEA 766 on 07/15/18 - CT CAP 07/17/18 ([facility]): Metallic stent in the descending colon. No [...] cells - R thoracentesis 07/17/18 ([facility]): 1043 WBC, 9500 RBCs; fluid not sent for cytology. Protein 5, albumin 2.9 - paracentesis 07/18/18: cytology + for adenoCA - cScope 07/18/18: partially obstructing descending colon mass with stent in place - R chest port 07/19/18, was supposed to start chemo but lost insurance - admitted to [facility] in Sep 2018 for LBO -> cScope [...] to colonic stent with prior obstruction) 04/23, 8, 05/21, 06/05/19, 06/18/19, 07/02/19 - CT CAP 07/02/19: SD in abdomen and pelvis; 2 new small subcm lesions to R major fissure, increased pleural effusion - CXR 07/16/19: small right pleural effusion - 5FU/LV: 07/16/19, 07/30/19, 08/13/19, 08/27/19, 09/10/19 - [facility] admission: 09/18/19-09/20/19 (approximate dates): R pleural effusion, negative CT chest angiogram, normal EF. Thoracentesis with negative cytology, started on Betapace and Eliquis - 5FU/LV: 09/25/19, held 10/08/19 for worsening clinical status (+SAPP, absent right pleural sounds) Past Medical, Surgical, Family, Social History: unchanged Past Medical History: Diagnosis Date Asthma Colon cancer (HCCode) HBP (high blood pressure) No Known Allergies Current Outpatient Medications Medication Sig Dispense Refill amlodipine (NORVASC) 10 MG tablet Take 10 mg by mouth daily. carvedilol (COREG) 3.125 MG tablet Take 3.125 mg by mouth 2 times daily ( with meals). [facility] PURELAX powder TAKE 17 G BY MOUTH DAILY NEEDED WITH WATER OR JUICE 510 g 2 cyclobenzaprine (FLEXERIL) 10 MG tablet Take 10 [...] needed. For chemotherapy-induced nausea 30 Tab 3 Tamsulosin HCl 0.4 MG CAPS TAKE 1 CAPSULE BY MOUTH EVERY DAY 90 Cap 1 No current facility-administered medications for this visit. Review of Systems Constitutional: Negative for chills, fever and weight loss. HENT: Negative. Eyes: Negative. Respiratory: Positive for shortness of breath (+SAPP, even with minimal exertion) . Negative for cough. Cardiovascular: Positive for orthopnea (chronic (ANASTACIO)) and leg swelling ( chronic (mild), R>L). Gastrointestinal: Positive for abdominal pain (mild, intermittent) and constipation. Negative for blood in stool, diarrhea and vomiting. Genitourinary: Negative for frequency and urgency (improved with better glucose management). ED Musculoskeletal: Positive for joint pain (chronic). Skin: Negative. Neurological: Positive for sensory change (mild numbness in feet and fingers, lingering and more noticeable in fingertips lately). Negative for seizures. Endo/Heme/Allergies: Negative. Psychiatric/Behavioral: Negative. There were no vitals taken for this visit. Wt Readings from Last 3 Encounters: 10/08/19 (!) 319 lb (144.7 kg) 09/25/19 (!) 320 lb (145.2 kg) 09/10/19 (!) 318 lb 12.8 oz (144.6 kg) Physical Exam Constitutional: He is oriented to person, place, and time and well-developed, well-nourished, and inno distress. No distress. Presents ambulatory in clinic, obese, alone in clinic today. More dyspneic than he was last time butstill no acute distress HENT: Head: Normocephalic and atraumatic. Right Ear: External ear normal. Left Ear: External ear normal. Eyes: Conjunctivae and EOM are normal. No scleral icterus. Neck: Normal range of motion. Neck supple. Cardiovascular: Regular rhythm and normal heart sounds. Tachycardia present. tachycardic Pulmonary/Chest: Tachypnea noted. He has decreased breath sounds in the right middle field and the right lower field. Port CDI Decreased breath sounds R lung Abdominal: Soft. Bowel sounds are normal. Musculoskeletal: Normal range of motion. General: Edema (trace BLE; R>L) present. Lymphadenopathy: He has no cervical adenopathy. Neurological: He is alert and oriented to person, place, and time. Gait normal. Skin: Skin is warm and dry. No rash noted. He is not diaphoretic. No erythema. Psychiatric: Mood, memory, affect and judgment normal. Pertinent labs/studies (other than those mentioned in the HPI): Results for LISSETH GONZALEZ JR. ( ) as of 10/23/2019 09:21 10/23/2019 08:18 GLUCOSE 64 (L) BLOOD UREA NITROGEN 23 (H) CREATININE 0.85 BUN/CREAT RATIO 27 SODIUM 145 POTASSIUM 4.3 CHLORIDE 101 CO2 32 (H) CALCIUM 9.5 PROTEIN TOTAL 7.5 ALBUMIN 4.0 GLOBULINS, SERUM, TOTAL 3.5 A/G RATIO 1.1 BILIRUBIN TOTAL 1.1 ALKALINE PHOSPHATASE 78 AST (SGOT) 22 ALT (SGPT) 21 MAGNESIUM 2.1 CEA PENDING RBC 4.70 WBC 9.1 HEMOGLOBIN 14.3 HEMATOCRIT 45.0 MEAN CORPUSCULAR VOLUME 95.7 MEAN CORPUSCULAR HEMOGLOBIN 30.4 MEAN CORPUSCULAR HEMOGLOBIN CONC 31.8 (L) RED CELL DISTRIBUTION WIDTH 14.7 PLATELET COUNT 252 NEUTROPHILS % 65 LYMPHOCYTES % 17 (L) MONOCYTES % 13 BASOPHILS % 0 EOSINOPHILS % 5 EGFR 96 EGFR AA 111 Assessment/Plan: 1) biopsy-proven stage IV pMMR KRAS MUT L-sided colon cancer with malignant pleural effusion and malignant ascites (both cytology-proven). Delayed by insurance, of which he obtained October 2018. CT CAP 10/05/18 showed PD -> FOLFOX (copay for xeloda too high) -> ID after 5 cycles with nice reduction in CEA -> maint 5FU with CT in July 2019 showing increased pleural effusion with 2 very small new lesions to right fissure. CXR That showed small effusion (a little blunting of the R costophrenic angle) - not enough to tap. - Hold maintenance 5FU pending cardiac eval (see below) - follow CEA - zofran prn 2) SOB/R pleural effusion/vol overload Limited records from [facility] showed: BNP 533 (normal <125) Cr and LFTs were normal. CXR showed R pleural effision. R Pleural fluid + WBC (1245 with 68% lymphs and 20% mononuc cless and 10% PMN. We don't have any results of LDH, prot, cytology , but pt says that he was told that it wasn't related to his cancer he also says that he had CT chest, but we don't have the report. He says that he was told that there was no PE --> send pt to ED for CT angio (r/o PE), possible admission for echo, cardiology evaluation, ratecontrol. 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 Kalin [facility] documented in this encounter Plan of Treatment Date Type Specialty Care Team Description 10/25/2019 Appointment Infusion Center 10, [facility] [address], [address] [place] [address] 11/05/2019 Appointment Infusion Center 10, [facility] [address], [address] [place] [address] 11/07/2019 Appointment Infusion Center 10, [facility] [address], [address] [place] [address] Health Maintenance Due Date Last Done Comments TETANUS SHOT (ADULT) 12/12/1975 ANNUAL DIABETIC FOOT EXAM 1978 ANNUAL DIABETIC RETINOPATHY 1978 SCREENING BMI FOLLOW UP PLAN 1978 HEPATITIS C SCREENING 1978 HIV SCREENING 1978 FLU VACCINE > 6 MONTHS 05/03/2019 08/02/2018 A1C TESTING EVERY 6 MONTHS 11/07/2019 05/07/2019 COLON CANCER SCREENING: COLONOSCOPY 09/11/2028 09/11/2018, 07/18/2018, 07/15/2018 documented as of this encounter Results Not on filedocumented in this encounter Visit Diagnoses Diagnosis Colon cancer metastasized to multiple sites (HCCode) - Primary Malignant neoplasm of colon, unspecified site documented in this encounter Insurance Payer Benefit Plan / Subscriber ID Effective Dates Phone Address Type Group [facility] - xxxxxxxxxxx 2018-Present [address] [place] [address] (Home) [address] [place] [address] documented as of this encounter
--- OUTSIDE RECORDS SUMMARY | 2019-11-26 17:38 | XMS REPORT | Summary of Care ---
:1960 Author Organization [facility] [place] [address] Care Team Providers Name Role Phone Graham Goodwin MD Primary Care Provider Reason for Referral Infusion Clinic (Urgent) Status Reason Specialty Diagnoses / Referred By Referred To Procedures Contact Contact Pending New Treatment Infusion Center Diagnoses Colon cancer metastasized to multiple sites (HCCode) Mary Infusion Procedures AL OFFICE OUTPATIENT NEW 30 MINUTES MD Kyle [address] [place] [address] Reason for Visit Reason Comments Follow Up Encounter Details Date Type Department Care Team Description 11/05/2019 Office Visit [facility] Miguel Arizmendi, [facility] [address] [facility] [address] [facility] 7th Floor, [address] [place] [address] 7th Floor, [address] [phone] [place] [address] [phone] Allergies No Known Allergiesdocumented as of this encounter (statuses as of 11/05/2019) Medications Medication Sig Dispensed Refills Start Date End Date Status carvedilol (COREG) 3.125 Take 12.5 mg by 0 Active MG tablet mouth two times daily. cyclobenzaprine Take 10 mg by 0 Active (FLEXERIL) 10 MG tablet mouth 3 times daily as needed for Muscle spasms. amlodipine (NORVASC) 10 Take 10 mg by 0 Active MG tablet mouth daily. ondansetron (ZOFRAN) 8 mg Take 1 Tab by 30 Tab 3 11/06/2018 Active tablet mouth every 8 hours as needed. For chemotherapy-in duced nausea Additional Information Patient not taking. Reason: PRN Med, Informant: Self, Reported on 11/05/2019 8 :56 AM docusate sodium (COLACE) Take 1 Cap by mouth 60 Cap 3 12/04/2018 Active 100 MG capsule two times daily. lidocaine-prilocaine Apply 1 application 30 g 3 12/04/2018 Active (EMLA) 2.5-2.5 % cream topically as needed. Morphine Sulfate ER 15 Take 15 mg by mouth 60 Each 0 03/12/2019 Active MG [id number]: every 12 hours. Colon cancer metastasized to multiple sites (HCCode), Cancer related pain glimepiride (AMARYL) 4 Take 1 Tab by mouth 90 Tab 3 05/23/2019 Active MG tablet every morning. Insulin Aspart Prot & Inject 30 Units into 0 06/22/2019 Active Aspart (NOVOLOG MIX the skin. 70/30 FLEXPEN) (70-30) 100 UNIT/ML SUPN hydrocodone-acetaminophe Take 1 Tab by mouth 120 Tab 0 07/30/2019 Active n (NORCO) 10-325 MG per every 6 hours as tabletIndications: Colon needed for Pain. cancer metastasized to Eprescribed multiple sites (HCCode), Cancer related pain Tamsulosin HCl 0.4 MG TAKE 1 CAPSULE BY 90 Cap 1 08/24/2019 Active CAPSIndications: Benign MOUTH EVERY DAY prostatic hyperplasia with urinary frequency [facility] PURELAX TAKE 17 G BY MOUTH 510 g 2 09/14/2019 Active powderIndications: Colon DAILY NEEDED WITH cancer metastasized to WATER OR JUICE multiple sites (HCCode) aspirin EC 81 MG TBEC Take 81 mg by mouth. 0 10/27/2019 10/26/2020 Active furosemide (LASIX) 20 MG Take 40 mg by mouth. 0 10/27/2019 Active tablet linaGLIPtin 5 MG TABS Take 5 mg by mouth. 0 Active metoprolol (LOPRESSOR) Take 25 mg by mouth 0 10/27/2019 10/26/2020 Active 25 MG tablet two times daily. sotalol (BETAPACE) 80 MG Take 80 mg by mouth. 0 10/27/2019 Active tablet senna-docusate Take 1 Tab by mouth. 0 10/27/2019 10/26/2020 Active (PERICOLACE) 8.6-50 MG per tablet tramadol (ULTRAM) 50 MG Take 50 mg by mouth. 0 10/27/2019 Active tablet Apixaban (ELIQUIS) 5 MG Take 5 mg by mouth. 0 Active TABS documented as of this encounter (statuses as of 11/05/2019) Active Problems Problem Noted Date Non-insulin dependent type 2 diabetes mellitus (HCCode) 05/23/2019 Colon cancer metastasized to multiple sites (HCCode) 07/24/2018 documented as of this encounter (statuses as of 11/05/2019) Social History Tobacco Use Types Packs/Day Years [...] Sign Reading Time Taken Comments Blood Pressure 149/82 11/05/2019 8:53 AM RN PROGR[facility] Pulse 120 11/05/2019 8:53 AM RN [facility] Temperature 36.9 C (98.5 F) 11/05/2019 8:53 AM RN PRO[facility] Respiratory Rate 18 11/05/2019 8:53 AM RN PROGR[facility]ARE Oxygen Saturation - - Inhaled Oxygen Concentration - - Weight 144.2 kg (318 lb) 11/05/2019 8:53 AM RN PROGR[facility] Height 180.3 cm (5' 11") 11/05/2019 8:53 AM RN PROGRESSIVE CARE Body Mass Index 44.35 11/05/2019 8:53 AM RN PRO[facility] documented in this encounter Progress Notes Kyle Hernandez MD - 11/05/2019 8:30 AM CST Patient: Shai Gonzalez 1960 58 y.o. with stage IV colon cancer diagnosed at [facility], here for f/u 11/05/2019 S: since last appt, pt was hospitalized at [facility] and underwent restaging, thoracentesis, and evaluation/tx by cardiology. Still with SAPP, but overall better. Has some R pleuritic chest pain. Occasionalcough, no hemoptysis. Daily BMs without blood. Urinating but "coming out slow." Neuropathy mild and stable. No CP, no N/V, no F/C/NS. ECOG PS 2 (due to SAPP) Course summary: - admitted to [facility] for obstipation - cScope 07/15/18 ([email or web address]@ [facility]): A malignant-appearing, intrinsic severe stenosis measuring 3 mm (inner diameter) was found in the descending colon and was non-traversed. This was stented with a 25 mm x 87 mm Ultraflex Precision stent under fluoroscopic guidance. Estimated blood loss was minimal. - CEA 766 on 07/15/18 - CT CAP 07/17/18 ([facility]): Metallic stent in the descending colon. [...] with suspicious cells - R thoracentesis 07/17/18 ([facility]): 1043 WBC, 9500 RBCs; fluid not sent for cytology. Protein 5, albumin 2.9 - paracentesis 07/18/18: cytology + for adenoCA - cScope 07/18/18: partially obstructing descending colon mass with stent in place - R chest port 07/19/18, was supposed to start chemo but lost insurance - admitted to [facility] in Sep 2018 for LBO -> [...] 07/16/19, 07/30/19, 08/13/19, 08/27/19, 09/10/19 [facility]-09/20/19 (approximate dates): R pleural effusion, negative CT chest angiogram, normal EF. Thoracentesis with negative cytology, started on Betapace and Eliquis - 5FU/LV: 09/25/19, held 10/08/19 for worsening clinical status (+SAPP, absent right pleural sounds) - CT 10/23/19 ([facility]): Technically suboptimal exam, allowing for this limitation , no PE is identified. Large right pleural effusion. Suspect right-sided pleural -based Metastasis. Stent in proximal descending colon. There is omental carcinomatosis. Serosal deposits may also be present along the liver surface. Indeterminate left adrenal 3.3 cm mass. - R thoracentesis 10/27/19: few atypical cells staining + for MOC1 and CDX2 - FOLFIRI #1 11/05/19 Past Medical, Surgical, Family, Social History: unchanged Past Medical History: Diagnosis Date Asthma Colon cancer (HCCode) HBP (high blood pressure) No Known Allergies Current Outpatient Medications Medication Sig Dispense Refill amlodipine (NORVASC) 10 MG tablet Take 10 mg by mouth daily. Apixaban (ELIQUIS) 5 MG TABS Take 5 mg by mouth. aspirin EC 81 MG TBEC Take 81 mg by mouth. carvedilol (COREG) 3.125 MG tablet Take 12.5 mg by mouth two times daily. [facility] PURELAX powder TAKE 17 G BY MOUTH DAILY NEEDED WITH WATER OR JUICE 510 g 2 cyclobenzaprine (FLEXERIL) 10 MG tablet Take 10 mg by mouth 3 times daily as needed for Muscle spasms. docusate sodium (COLACE) 100 MG capsule Take 1 Cap by mouth two times daily. 60 Cap 3 furosemide (LASIX) 20 MG tablet Take 40 mg by mouth. glimepiride (AMARYL) 4 MG tablet Take 1 Tab by mouth every morning. 90 Tab 3 hydrocodone-acetaminophen (NORCO) 10-325 MG per tablet Take 1 Tab by mouth every 6 hours as needed for Pain. Eprescribed 120 Tab 0 Insulin Aspart Prot & Aspart (NOVOLOG MIX 70/30 FLEXPEN) (70-30) 100 UNIT/ML SUPN Inject 30 Units into the skin. lidocaine-prilocaine (EMLA) 2.5-2.5 % cream Apply 1 application topically as needed. 30 g 3 linaGLIPtin 5 MG TABS Take 5 mg by mouth. metoprolol (LOPRESSOR) 25 MG tablet Take 25 mg by mouth two times daily. Morphine Sulfate ER 15 MG T12A Take 15 mg by mouth every 12 hours. 60 Each 0 ondansetron (ZOFRAN) 8 mg tablet Take 1 Tab by mouth every 8 hours as needed. For chemotherapy-induced nausea (Patient taking differently: Take 8 mg by mouth. For chemotherapy-induced nausea) 30 Tab 3 senna-docusate (PERICOLACE) 8.6-50 MG per tablet Take 1 Tab by mouth. sotalol (BETAPACE) 80 MG tablet Take 80 mg by mouth. Tamsulosin HCl 0.4 MG CAPS TAKE 1 CAPSULE BY MOUTH EVERY DAY 90 Cap 1 tramadol (ULTRAM) 50 MG tablet Take 50 mg by mouth. No current facility-administered medications for this visit. Review of Systems Constitutional: Negative for chills, fever and weight loss. HENT: Negative. Eyes: Negative. Respiratory: Positive for shortness of breath (+SAPP). Negative for cough. Cardiovascular: Positive for orthopnea (chronic (ANASTACIO)) and leg swelling ( chronic (mild), R>L). Gastrointestinal: Positive for abdominal pain (mild, intermittent) and constipation. Negative for blood in stool, diarrhea and vomiting. Genitourinary: Negative for frequency and urgency (improved with better glucose management). ED Musculoskeletal: Positive for joint pain (chronic). Skin: Negative. Neurological: Positive for sensory change (mild numbness in feet and fingers). Negative for seizures. Endo/Heme/Allergies: Negative. Psychiatric/Behavioral: Negative. There were no vitals taken for this visit. Wt Readings from Last 3 Encounters: 10/31/19 (!) 323 lb 9.6 oz (146.8 kg) 10/23/19 (!) 318 lb (144.2 kg) 10/08/19 (!) 319 lb (144.7 kg) Physical Exam Constitutional: He is oriented to person, place, and time and well-developed, well-nourished, and inno distress. No distress. Alone today. Looks better than he did last time HENT: Head: Normocephalic and atraumatic. Right Ear: External ear normal. Left Ear: External ear normal. Eyes: Conjunctivae and EOM are normal. No scleral icterus. Neck: Normal range of motion. Neck supple. Cardiovascular: Regular rhythm and normal heart sounds. Tachycardia present. tachycardic Pulmonary/Chest: No tachypnea. He has no decreased breath sounds. Port CDI Decreased breath sounds R lung [...] (other than those mentioned in the HPI): pending Assessment/Plan: 1) biopsy-proven stage IV pMMR KRAS MUT L-sided colon cancer with malignant pleural effusion and malignant ascites (both cytology-proven). Delayed by insurance, of which he obtained October 2018. CT CAP 10/05/18 showed PD -> FOLFOX (copay for xeloda too high) -> AL after 5 cycles with nice reduction in CEA -> maint 5FU with CT in July 2019 showing increased pleural effusion with 2 very small new lesions to right fissure. CXR That showed small effusion (a little blunting of the R costophrenic angle) - not enough to tap. Now with larger effusion (cytology +), rising CEA - add irinotecan (FOLFIRI); can try oxali again later on if neuropathy improves and if cancer resistant to irinotecan - follow CEA - zofran prn 2) SOB/R pleural effusion/vol overload - cytology was mildly + but BNP has been high at >500, andrate has been high (120s-130s). In other words, cancer and CV issues probably both contributing to his symptoms - cont f/u with cardiology for rate control - await effect of rate control and chemo to see if another thora and/or pleurX is indicated 3) near obstruction of descending colon s/p [...] 8) abdominal pain secondary to #1 - [place] prn (will stop MSER for now), rare use 9) ANASTACIO, not currently, using CPAP Kyle Hernandez M.D. Kalin [facility] documented in this encounter Plan of Treatment Date Type Specialty Care Team Description 11/05/2019 Appointment Infusion Center 10, [facility] Chair [address] [facility] 7th Floor, [address] [place] [address] 11/07/2019 Appointment Infusion Center 10, [facility] Chair [address] [facility] [address], [address] [place] [address] 12/05/2019 Office Visit Cardiology Kelly Lobo MD [address] [facility] [address] [place] [address] [phone] Name Type Priority Associated Diagnoses Order Schedule AMB REF TO Outpatient Referral Routine Colon cancer Ordered: INFUSION CENTER metastasized to 11/05/2019 multiple sites (HCCode) Health Maintenance Due Date [...] ID Effective Dates Phone Address Type Group [facility] [employer] - xxxxxxxxxxx 2018-Present [address] [place] [address] (Home) [address] [place] [address] documented as of this encounter
--- OUTSIDE RECORDS SUMMARY | 2019-11-26 17:38 | XMS REPORT | Summary of Care ---
:1960 Author Organization [facility] [place] [address] Care Team Providers Name Role Phone Graham Goodwin MD Primary Care Provider Reason for Visit Reason Comments Cardiology Follow-up fluid outside of lungs hospital f/u [facility] released Tuesday - pain on R side for past 2 weeks Shortness of Breath when idle and exertion Palpitations Consultation (Routine) Status Reason Specialty Diagnoses / Referred By Referred To Procedures Contact Contact Authorization Not Cardiology Diagnoses SOB (shortness of breath) SOB (shortness of breath) Nima Carranza Needed Procedures IN OFFICE OUTPATIENT NEW 30 MINUTES [id number] (CPT) - [facility] REFERRAL TO CARDIOLOGY [address] [place] [address] Encounter Details Date Type Department Care Team Description 10/31/2019 Office Visit [facility] Kelly Lobo Cardiology Follow- up Medicine Cardiology MD Ashvin (fluid outside of lungs [address] [facility] f/u 6th Floor, [address] [place] [address] [place] [address] Tuesday - pain on R side [id number] for past 2 weeks ); [phone] Shortness of Breath (Fax) (when idle and exertion ); Palpitations Allergies No Known Allergiesdocumented as of this encounter (statuses as of 11/06/2019) Medications Medication Sig Dispensed Refills Start Date [...] mouth 60 Each 0 03/12/2019 Active MG [id number]: every 12 hours. Colon cancer metastasized to [...] as of this encounter (statuses as of 11/06/2019) Active Problems Problem Noted Date Non-insulin dependent type 2 diabetes mellitus (HCCode) 05/23/2019 Colon cancer metastasized to multiple sites (HCCode) 07/24/2018 documented as of this encounter (statuses as of 11/06/2019) Social History Tobacco Use Types Packs/Day Years [...] Sign Reading Time Taken Comments Blood Pressure 120/79 10/31/2019 9:43 AM V BELT CURER Pulse 81 10/31/2019 9:43 AM V BELT CURER Temperature - - Respiratory Rate - - Oxygen Saturation 97% 10/31/2019 9:43 AM V BELT CURER Inhaled Oxygen Concentration - - Weight 146.8 kg (323 lb 9.6 oz) 10/31/2019 9:43 AM V BELT CURER Height 180.3 cm (5' 11") 10/31/2019 9:43 AM V BELT CURER Body Mass Index 45.13 10/31/2019 9:43 AM V BELT CURER documented in this encounter Progress Notes Kelly Lobo MD - 10/31/2019 11:00 AM CST Patient Name: Shai Gonzalez : 1960 MR #: [id number] Date: 11/06/2019 Referring Physician: inpatient follow up Staff Cardiac Fire Extinguisher Installer: Kelly Lobo MD, PhD Cardiac Electrophysiology Clinic Note CC: atrial fibrillation/flutter Chief Complaint Patient presents with Cardiology Follow-up fluid outside of lungs ~ hospital f/u [facility] released Tuesday - pain on R side for past 2 weeks Shortness of Breath when idle and exertion Palpitations History of Present Illness: Shai Gonzalez is a 58 y.o. old male with medical history significant for afib/flutter CHADS2-VASc=2, DM, HTN, obesity/ANASTACIO, stage IV colon cancer, referred for afib/flutter. Went to OSH 09/2019 with shortness of breath. Was diagnosed with atrial flutter and pleural effusion. He had thoracentesis for the effusion. For atrial flutter , he was started on eliquis and sotalol. Went to [facility] 10/2019 with shortness of breath, with recurrence of pleural effusion which was drained.Telemetry showed atrial fibrillation and atrial flutter. Sotaolol was continued. Eliquis was stoppeddue to his likely need for more thoracenteses. Metoprolol was added for better rate control. He feels fine. He can walk >10 minutes without dyspnea. Denies palpitations, lightheadedness/dizziness, syncope. He has stable orthopnea. No LE edema. No bleeding. No personal history of CAD, CHF. Never had [place], cath, stress test. No family history of cardiovascular disease ROS Gen - denies f/c Neuro - denies RAE CV - see HPI Resp - see HPI GI - denies abd pain - denies dysuria MSK - denies arthralgias Heme - denies bleeding Skin - denies rashes Psych - denies depression Lymph- denies LAD PMH Past Medical History: Diagnosis Date Asthma Colon cancer (HCCode) HBP (high blood pressure) PSH No past surgical history on file. Family History Family History Problem Relation Name Age of Onset Colon Cancer Father Social History Social History Socioeconomic History Marital status: Spouse name: Not on file Number of children: Not on file Years of education: Not on file Highest education level: Not on file Occupational History Not on file Social Needs Financial resource strain: Not on file Food insecurity: Worry: Not on file Inability: Not on file Transportation needs: Medical: Not on file Non-medical: Not on file Tobacco Use Smoking status: Former Smoker Types: Cigarettes Smokeless tobacco: Former User Substance and Sexual Activity Alcohol use: Yes Drinks per session: 5 or 6 Drug use: No Sexual activity: Not on file Lifestyle Physical activity: Days per week: Not on file Minutes per session: Not on file Stress: Not on file Relationships Social connections: Talks on phone: Not on file Gets together: Not on file Attends restorationist service: Not on file Active member of club or organization: Not on file Attends meetings of clubs or organizations: Not on file Relationship status: Not on file Intimate partner violence: Fear of current or ex partner: Not on file Emotionally abused: Not on file Physically abused: Not on file Forced sexual activity: Not on file Other Topics Concerns: Not on file Social History Narrative Not on file Current Outpatient Medications: amlodipine (NORVASC) 10 MG tablet, Take 10 mg by mouth daily., Disp: , Rfl: carvedilol (COREG) 3.125 MG tablet, Take 3.125 mg by mouth 2 times daily ( with meals)., Disp: ,Rfl: [employer] PURELAX powder, TAKE 17 G BY MOUTH DAILY NEEDED WITH WATER OR JUICE , Disp: 510 g, Rfl: 2 cyclobenzaprine (FLEXERIL) 10 MG tablet, Take 10 mg by mouth 3 times daily as needed for Musclespasms., Disp: , Rfl: docusate sodium (COLACE) 100 MG capsule, Take 1 Cap by mouth two times daily. (Patient not taking: Reported on 10/31/2019), Disp: 60 Cap, Rfl: 3 glimepiride (AMARYL) 4 MG tablet, Take 1 Tab by mouth every morning., Disp : 90 Tab, Rfl: 3 hydrocodone-acetaminophen (NORCO) 10-325 MG per tablet, Take 1 Tab by mouth every 6 hours as needed for Pain. Eprescribed, Disp: 120 Tab, Rfl: 0 Insulin Aspart Prot & Aspart (NOVOLOG MIX 70/30 FLEXPEN) (70-30) 100 UNIT/ML SUPN, Inject 30 Units into the skin., Disp: , Rfl: lidocaine-prilocaine (EMLA) 2.5-2.5 % cream, Apply 1 application topically as needed., Disp: 30g, Rfl: 3 Morphine Sulfate ER 15 MG T12A, Take 15 mg by mouth every 12 hours., Disp: 60 Each, Rfl: 0 ondansetron (ZOFRAN) 8 mg tablet, Take 1 Tab by mouth every 8 hours as needed. For chemotherapy-induced nausea (Patient not taking: Reported on 2019), Disp: 30 Tab, Rfl: 3 Tamsulosin HCl 0.4 MG CAPS, TAKE 1 CAPSULE BY MOUTH EVERY DAY, Disp: 90 Cap , Rfl: 1 PHYSICAL EXAM Ht 5' 11" (1.803 m) | Wt (!) 323 lb 9.6 oz (146.8 kg) | BMI 45.13 kg/m Gen: NAD HEENT: normal conjunctiva Neck: no JVD CV: RRR, no m/r/g Pulm: normal respiratory effort, no w/r/c Abd: soft Extremities: no edema Labs/imaging: reviewed ECG: NA Echo: 10/2019 Summary 1. The left ventricle is chamber size (by PSLAX dimension) is normal (male - LVIDd 4.2-5.8cm) with moderate concentric LV hypertrophy. LVEF by Aldrich's method of disk assessment is normal (55-60%) . Degree of diastolic dysfunction (LAP assessment) is inconclusive due to arrhythmia . 2. Normal RV size and systolic function. 3. RA cavity size is mildly enlarged . 4. No significant valvular abnormality. 5. Estimated peak systolic PA pressure is 30-35 mmHg . Previous Study In comparison with the prior exam on 07-19-18 there are no significant changes. Stress: NA Cath: NA ASSESSMENT/PLAN: Atrial flutter, CHADS2-VASc=2 - currently rate controlled - continue aspirin, no AC due to possible need for more thoracenteses - continue sotalol 80mg bid, QTc acceptable today - continue metoprolol - Chemotherapy is currently being held "pending cardiac evaluation", which includes assessment of arrhythmia. He's currently well rate controlled. But recurrent illness/pleural effusion or chemotherapycan precipitated tachycardia RVR. Atrial flutter ablation is a possibility for improved rhythm control. It may alleviate recurrent pleural effusion (unless they're malignant effusions). After the ablation, he would require 1 month of systemic anticoagulation, but can stop after 1 month. He is currently not interested in this procedure as he may need a repeat thoracentesis, but he will keep thinking about it. Will also communicate with oncologist Dr. Hernandez. RTC: 1 month Patient seen and discussed with Dr. Lashell Marinelli MD [facility] Space Control Agent 10/31/2019, 9:52 AM The patient was seen, examined, and discussed with Dr. Marinelli. All data including telemetry, EKGs, and imaging studies were independently visualized and confirmed. The above note was reviewed and edited as appropriate. I agree with the findings , corrections, and addenda after the appropriate edits were made to the above note. > 50% of this 40 minute appointment was spent counseling the patient regarding atrial flutter management. Electronically signed by Kelly Lobo MD, PhD. Kelly Lobo MD, PhD, [facility] Playground Supervisor Director of Electrophysiology, [facility] Rug Sizer, [facility] documented in this encounter Plan of Treatment Date Type Specialty Care Team Description 11/07/2019 Appointment Infusion Center 10, [facility] Chair [address], [address] [place] [address] 11/19/2019 Office Visit Hematology and Oncology Miguel Bennett NP [address], [address] [place] [address] 11/19/2019 Appointment Infusion Center 10, [facility] [address], [address] [place] [address] 11/21/2019 Appointment Infusion Center 1, [facility] [address] Floor, [address] [place] [address] 12/03/2019 Appointment Infusion Center 10, [facility] Chair [address] Floor, [address] [place] [address] 12/05/2019 Office Visit Cardiology Kelly Lobo MD [address] [facility] [address] [place] [address] [phone] 12/05/2019 Appointment Infusion Center 1, [facility] Chair [address] [facility] 7th Floor, [address] [place] [address] Health Maintenance Due Date Last Done Comments TETANUS SHOT (ADULT) 12/12/1975 ANNUAL DIABETIC FOOT EXAM 1978 ANNUAL DIABETIC RETINOPATHY 1978 SCREENING BMI FOLLOW UP PLAN 1978 HEPATITIS C SCREENING 1978 HIV SCREENING 1978 FLU VACCINE > 6 MONTHS 05/03/2019 08/02/2018 A1C TESTING EVERY 6 MONTHS 11/07/2019 05/07/2019 COLON CANCER SCREENING: COLONOSCOPY 09/11/2028 09/11/2018, 07/18/2018, 07/15/2018 documented as of this encounter Procedures Procedure Name Priority Date/Time Associated Comments Diagnosis ELECTROCARDIOGRAM Routine 10/31/2019 10:25 SOB (shortness of Results for this COMPLETE AM V BELT CURER breath) procedure are in the results section. documented in this encounter Results ELECTROCARDIOGRAM COMPLETE (10/31/2019 10:25 AM V BELT CURER) Narrative Performed At Result approved by Kelly Lobo MD on 10/31/19 documented in this encounter Visit Diagnoses Diagnosis SOB (shortness of breath) - Primary Shortness of breath documented in this encounter Insurance Payer Benefit Plan / Subscriber ID Effective Dates Phone Address Type Group [facility] [employer] - xxxxxxxxxxx 2018-Present [address] [place] [address] (Home) [address] [place] [address] documented as of this encounter
--- OUTSIDE RECORDS SUMMARY | 2019-11-26 17:38 | XMS REPORT | Summary of Care ---
:1960 Author Organization [facility] [place] [address] Care Team Providers Name Role Phone Graham Goodwin MD Primary Care Provider Reason for Visit Reason Comments Follow Up Encounter Details Date Type Department Care Team Description [facility] Azam [facility] Cancer [address] [facility] 7th Floor, [address] [place] [address] 7th Floor, [address] [phone] [place] [address] [phone] Allergies No Known Allergiesdocumented as of this encounter (statuses as of 11/19/2019) Medications Medication Sig Dispensed Refills Start Date End Date Status carvedilol (COREG) Take 12.5 mg by 0 Active 3.125 MG tablet mouth two times daily. cyclobenzaprine [...] by 60 Each 0 03/12/2019 Active MG [id number]: mouth every 12 Colon cancer hours. metastasized to multiple sites (HCCode), Cancer related pain glimepiride (AMARYL) 4 Take 1 Tab by 90 Tab 3 05/23/2019 Active MG tablet mouth every morning. Insulin Aspart Prot & Inject 30 Units 0 06/22/2019 Active Aspart (NOVOLOG MIX [...] frequency [facility] PURELAX TAKE 17 G BY 510 g 2 09/14/2019 Active powderIndications: MOUTH DAILY Colon cancer NEEDED WITH WATER metastasized to OR JUICE multiple sites (HCCode) aspirin EC 81 MG TBEC Take 81 mg by 0 10/27/2019 10/26/2020 Active mouth. furosemide (LASIX) 20 Take 40 mg by 0 10/27/2019 Active MG tablet mouth. linaGLIPtin 5 MG TABS Take 5 mg by 0 Active mouth. metoprolol (LOPRESSOR) Take 25 mg by 0 10/27/2019 10/26/2020 Active 25 MG tablet mouth two times daily. sotalol (BETAPACE) 80 Take 80 mg by 0 10/27/2019 Active MG tablet mouth. senna-docusate Take 1 Tab by 0 10/27/2019 10/26/2020 Active (PERICOLACE) 8.6-50 MG mouth. per tablet tramadol (ULTRAM) 50 Take 50 mg by 0 10/27/2019 Active MG tablet mouth. Apixaban (ELIQUIS) 5 Take 5 mg by 0 Active MG TABS mouth. promethazine Take 1 Tab by 30 Tab 2 11/08/2019 Active (PHENERGAN) 12.5 MG mouth every 6 tablet hours as needed for Nausea. documented as of this encounter (statuses as of 11/19/2019) Active Problems Problem Noted Date Non-insulin dependent type 2 diabetes mellitus (HCCode) 05/23/2019 Colon cancer metastasized to multiple sites (HCCode) 07/24/2018 documented as of this encounter (statuses as of 11/19/2019) Social History Tobacco Use Types Packs/Day Years [...] Sign Reading Time Taken Comments Blood Pressure 162/91 11/19/2019 8:11 AM CATTLE KILLER Pulse 116 11/19/2019 8:11 AM CATTLE KILLER Temperature 36.7 C (98 F) 11/19/2019 8:11 AM CATTLE KILLER Respiratory Rate - - Oxygen Saturation - - Inhaled Oxygen Concentration - - Weight 145.9 kg (321 lb 9.6 oz) 11/19/2019 8:11 AM CATTLE KILLER Height 180.3 cm (5' 11") 11/19/2019 8:11 AM CATTLE KILLER Body Mass Index 44.85 11/19/2019 8:11 AM CATTLE KILLER documented in this encounter Patient Instructions Patient InstructionsArabella Hu CMA - 11/19/2019 8:30 AM CATTLE KILLER [facility] SECTION OF ONCOLOGY/HEMATOLOGY [phone] FAX [phone] Please note that all labs and or imaging results will be discussed at the next office visit unless told otherwise. if a problem occurs after hours please contact our office and have physician personal lines sales rep paged [phone] Patient Instructions: (to be completed before next visit) Return to clinic in 2 weeks with labs prior Please don't hesitate to call if you have any questions or concerns before your appt. TELL US ABOUT YOUR EXPERIENCE You may receive an email or letter from [facility] via our partner, [employer]. This is a survey about your experience today. Your feedback is important to us so we can improve. If any question does not apply to your visit, please leave it blank. Our goal is to ensure you have an exceptional experience at [facility]. If for any reason you cannot rate your experience as very good, please let a member of our staff know so wecan make immediate improvements. Thanks Arabella Hu CMA LE KILLER documented in this encounter Progress Notes Kyle Hernandez MD - 11/19/2019 8:30 AM CST Patient: Shai Gonzalez 1960 58 y.o. with stage IV colon cancer diagnosed at [facility], here for f/u 11/19/2019 S: Presents to clinic for next cycle FOLFIRI. Tolerated well overall. Some nausea and was told by his systems software engineer not to take ondansetron. Has started on promethazine which he takes once daily to prevent nausea. Has slowed down his Miralax use since starting irinotecan, no watery movement but looser.Still with daily stool softener. +SAPP, but much improved overall. Stable neuropathy. No CP , no F/C/NS, no bleed, voiding well. Has cardiology appointment 12/05/19. ECOG PS 2 (due to SAPP) Course summary: - admitted to [facility] for obstipation - cScope 07/15/18 ([email or web address]@ [email or web address]): A malignant-appearing, intrinsic severe stenosis measuring 3 mm (inner diameter) was found in the descending colon and was non-traversed. This was stented with a 25 mm x 87 mm Ultraflex Precision stent under fluoroscopic guidance. Estimated blood loss was minimal. - CEA 766 on 07/15/18 - CT CAP 07/17/18 ([facility]): Metallic stent in the descending colon. [...] with suspicious cells - R thoracentesis 07/17/18 ([facility]): 1043 WBC, 9500 RBCs; fluid not sent for cytology. Protein 5, albumin 2.9 - paracentesis 07/18/18: cytology + for adenoCA - cScope 07/18/18: partially obstructing descending colon mass with stent in place - R chest port 07/19/18, was supposed to start chemo but lost insurance - admitted to [facility] in Sep 2018 for LBO -> [...] absent right pleural sounds) - CT 10/23/19 ([facility]): Technically suboptimal exam, allowing for this limitation , no PE is identified. Large right pleural effusion. Suspect right-sided pleural -based Metastasis. Stent in proximal descending colon. There is omental carcinomatosis. Serosal deposits may also be present along the liver surface. Indeterminate left adrenal 3.3 cm mass. - R thoracentesis 10/27/19: few atypical cells staining + for MOC1 and CDX2 - FOLFIRI #1 11/05/19, #2 11/19/19 Past Medical, Surgical, Family, Social History: unchanged [...] needed. For chemotherapy-induced nausea 30 Tab 3 promethazine (PHENERGAN) 12.5 MG tablet Take 1 Tab by mouth every 6 hours as needed for Nausea. 30 Tab 2 senna-docusate (PERICOLACE) 8.6-50 MG per tablet Take [...] Respiratory: Positive for shortness of breath (+SAPP, though now improved). Negative for cough. Cardiovascular: Positive for orthopnea (chronic (ANASTACIO)) and leg swelling ( chronic (mild), R>L). Gastrointestinal: Positive for abdominal pain (mild, intermittent). Negative for blood in stool, constipation (less so since irinotecan), diarrhea and vomiting. Genitourinary: Negative for frequency and urgency (improved with better glucose management). ED Musculoskeletal: Positive for joint pain (chronic). Skin: Negative. Neurological: Positive for sensory change (mild numbness in feet and fingers). Negative for seizures. Endo/Heme/Allergies: Negative. Psychiatric/Behavioral: Negative. BP (!) 162/91 (BP Location: left arm, Patient Position: Sitting, Cuff Size: large) | Pulse 116 | Temp 98 F (36.7 C) (Oral) | Ht 5' 11" (1.803 m) | Wt (!) 321 lb 9.6 oz (145.9 kg) | BMI 44.85 kg/m Wt Readings from Last 3 Encounters: 11/19/19 (!) 321 lb 9.6 oz (145.9 kg) 11/05/19 (!) 318 lb (144.2 kg) 10/31/19 (!) 323 lb 9.6 oz (146.8 kg) Physical Exam Constitutional: He is oriented to person, place, and time and well-developed, well-nourished, and inno distress. No distress. Alone today. No distress, appears much better than before HENT: Head: Normocephalic and atraumatic. Right Ear: External ear normal. Left Ear: External ear normal. Eyes: Conjunctivae and EOM are normal. No scleral icterus. Neck: Normal range of motion. Neck supple. Cardiovascular: Regular rhythm and normal heart sounds. Tachycardia present. tachycardic Pulmonary/Chest: No tachypnea. He has no decreased breath sounds. Port CDI Decreased breath sounds R lung, though improved some Abdominal: Soft. Bowel sounds are normal. Musculoskeletal: [...] FOLFOX (copay for xeloda too high) -> OR after 5 cycles with nice reduction in CEA -> maint 5FU with CT in July 2019 showing increased pleural effusion with 2 very small new lesions to right fissure. CXR That showed small effusion (a little blunting of the R costophrenic angle) - not enough to tap. Now with larger effusion (cytology +), rising CEA - FOLFIRI #2 today; can try oxali again later on if neuropathy improves and if cancer resistant to irinotecan - follow CEA - zofran prn 2) SOB/R pleural effusion/vol overload - cytology was mildly + but BNP has been high at >500, andrate has been high (120s-130s). In other words, cancer and CV issues probably both contributing to his symptoms - cont f/u with cardiology for rate control, next appointment 12/05/19 - await effect of rate control and [...] 8) abdominal pain secondary to #1 - Boscobel prn (will stop MSER for now), rare use 9) ANASTACIO, not currently, using CPAP RTC 2 weeks with labs prior Kyle Hernandez M.D. Kalin Qureshi Professor Az[facility] Cancer [facility] documented in this encounter Plan of Treatment Date Type Specialty Care Team Description 11/19/2019 Hospital Encounter Infusion Center 10, [facility] Chair Arrived [address], [address] [place] [address] 11/21/2019 Appointment Infusion Center 1, [facility] Chair [address], [address] [place] [address] 12/03/2019 Office Visit Hematology and Miguel Bennett, Oncology EXECUTIVE COMPENSATION ANALYST [address], [address] [place] [address] [phone] 12/03/2019 Appointment Infusion Center 10, [facility] Chair [address], [address] [place] [address] 12/05/2019 Office Visit Cardiology Kelly Lobo MD [address] [facility] [address] [place] [address] [phone] 12/05/2019 Appointment Infusion Center 1, [facility] Chair [address] [facility] 7th Floor, [address] [place] [address] Name Type Priority Associated Diagnoses Order Schedule CBC W/AUTO DIFF WITH Lab STAT Colon cancer metastasized Ordered: 11/19/2019 PLATELETS to multiple sites (HCCode) COMPREHENSIVE METABOLIC Lab STAT Colon cancer metastasized Ordered: 2019 PANEL to multiple sites (HCCode) CEA Lab Routine Colon cancer metastasized Ordered: 11/19/2019 to multiple sites (HCCode) MAGNESIUM Lab STAT Colon cancer metastasized Ordered: 11/19/2019 to multiple sites (HCCode) Health Maintenance Due [...] - xxxxxxxxxxx 2018-Present [address] [place] [address] (Home) [address] [place] [address] documented as of this encounter
[2019-11-26 18:27] LABS: Absolute Lymphocytes (CBC) 1.1 K/uL (0.7-4.9); Hematocrit 39.9 % (39.6-49.0); MPV 8.9 fL (7.6-11.3); RBC Red Blood Cell Count 4.36 M/uL (4.33-5.43)
[2019-11-26] MEDS ORDERED: NA CHLORIDE 0.9% 500 ML ONE (18:33)
[2019-11-26] MEDS ORDERED: LEVALBUTEROL 1.25 MG/3 ML NEB ONE ×2 (18:33→20:03)
[2019-11-26] MEDS ORDERED: Levofloxacin 750mg IV 750 MG/150 ML BAG IV ONE (18:33)
--- NOTE | 2019-11-26 18:39 | RAD REPORT ---
EXAM DESCRIPTION: RAD - Chest Single View - 11/26/2019 6:30 pm CLINICAL HISTORY: COUGH Chest pain. COMPARISON: Abdomen 1 View (KUB) dated 10/16/2019; Chest Single View dated 10/16/2019; Chest Single Vi ew dated 09/20/2019; Chest Single View dated 09/18/2019; Chest dated 10/17/2019 FINDINGS: Portable technique limits examination quality. Small right pleural effusion is seen, significantly smaller than on 10/16/2019 comparative study. Haz y left parahilar lung opacity is seen which may represent infiltrate/pneumonia. The heart is moderate ly enlarged. Right-sided port catheter its tip in the SVC.
[2019-11-26 18:43] LABS: ALT/SGPT 31 U/L (12-78); AST/SGOT 34 U/L (15-37); Albumin 3.5 g/dL (3.4-5.0); Alkaline Phosphatase 70 U/L (45-117); Amylase Level 40 U/L (25-115); BUN Blood Urea Nitrogen 17 mg/dL (7-18); Bicarbonate 30 mmol/L (21-32); Bilirubin Direct 0.1 mg/dL (0-0.2); Bilirubin Total 0.3 mg/dL (0.2-1.0); CKMB Creatine Kinase MB < 1.0 ng/mL (0.3-3.6); Creatine Phosphokinase 353 U/L (39-308); Glucose Level 70 mg/dL (74-106); Lipase 113 U/L (73-393); Potassium 3.4 mmol/L (3.5-5.1); Protein, Total 8.5 g/dL (6.4-8.2); Sodium Level 139 mmol/L (136-145); Troponin (Emerg Dept Use Only) < 0.02 ng/mL (0.0-0.045)
[2019-11-26 19:45] LABS: Anisocytosis 1+; Blood Morphology Comment NOTED (NOT SEEN); Platelet Estimate ADEQ; Urine White Blood Cell Casts OK
[2019-11-26] MEDS ORDERED: ALBUTEROL 2.5 MG/3 ML NEB SOL ONE (19:59)
[2019-11-26] MEDS ORDERED: IPRATROPIUM BROM 0.5MG/2.5ML ONE (19:59)
[2019-11-26] MEDS ORDERED: METHYLPREDNISOLONE 125 MG INJ ONE (19:59)
[2019-11-26] MEDS ORDERED: ONDANSETRON 4 MG/2 ML VIAL ONE (20:04)
[2019-11-26] MEDS ORDERED: MORPHINE 4 MG/ML SYR ONE (20:04)
[2019-11-26] MEDS ORDERED: FUROSEMIDE 40 MG/4 ML VIAL ONE (20:17)
[2019-11-26] MEDS ORDERED: FUROSEMIDE 20 MG/ 2ML VIAL ONE (20:17)
[2019-11-26 20:42] LABS: Urine Blood 1+ (NEG); Urine Glucose NEGATIVE (NEG); Urine Protein 1+ (NEG); Urine pH 5.5 (5.0-7.0)
[2019-11-26 20:42] LABS: Urine Bacteria <20 /HPF (NONE SEEN); Urine Culture Reflex Order NOT NEEDED; Urine Mucus 1+ /HPF (NONE SEEN)
--- NOTE | 2019-11-26 20:44 | EDPHYS ---
Physician Documentation [facility] Name: Shai Gonzalez Jr Age: 58 yrs Sex: Male : 1960 Arrival Date: 11/26/2019 Time: 17:37 Bed 8 Private MD: Trent Santiago H ED Physician Matty Hu HPI: 11/26 18:43 This 58 yrs old Black Male presents to ER via Ambulatory with complaints of Cough. ma2 18:43 Onset: The symptoms/episode began/occurred gradually, 2 day(s) ago. Severity of ma2 symptoms: At their worst the symptoms were moderate, in the emergency department the symptoms are unchanged. Associated signs and symptoms: Pertinent negatives: diarrhea, fever, sore throat, vomiting. The patient has not experienced similar symptoms in the past. Historical: - Allergies: 17:39 No Known Allergies; hb - PMHx: 17:39 ascites; Asthma; Back pain; colon cancer; Diabetes - NIDDM; Gout; Hypertension; hb - PSHx: 17:39 None; hb - Immunization history:: Adult Immunizations up to date. - Coronavirus screen:: The patient has NOT traveled to [place] in the past 14 days. The patient has NOT had contact with known/suspected case of Coronavirus? Proceed with normal triage procedures. - Social history:: Patient/guardian denies using alcohol, street drugs, The patient lives with family, Smoking status: Patient denies any tobacco usage or history of. - Family history:: not pertinent. - Ebola Screening: : No symptoms or risks identified at this time. ROS: 18:43 Constitutional: Negative for fever, chills, and weight loss. ma2 18:43 All other systems are negative. Exam: 18:43 Constitutional: This is a well developed, well nourished patient who is awake, alert, ma2 and in no acute distress. Eyes: Pupils equal round and reactive to light, extra-ocular motions intact. Lids and lashes normal. Conjunctiva and sclera are non-icteric and not injected. Cornea within normal limits. Periorbital areas with no swelling, redness, or edema. ENT: Nares patent. No nasal discharge, no septal abnormalities noted. Tympanic membranes are normal and external auditory canals are clear. Oropharynx with no redness, swelling, or masses, exudates, or evidence of obstruction, uvula midline. Mucous membranes moist. Neck: Trachea midline, no thyromegaly or masses palpated, and no cervical lymphadenopathy. Supple, full range of motion without nuchal rigidity, or vertebral point tenderness. No Meningismus. Chest/axilla: Normal chest wall appearance and motion. Nontender with no deformity. No lesions are appreciated. Cardiovascular: Regular rate and rhythm with a normal S1 and S2. No gallops, murmurs, or rubs. Normal PMI, no JVD. No pulse deficits. Respiratory: Lungs have equal breath sounds bilaterally, clear to auscultation and percussion. No rales, rhonchi or wheezes noted. No increased work of breathing, no retractions or nasal flaring. Abdomen/GI: Soft, non-tender, with normal bowel sounds. No distension or tympany. No guarding or rebound. No evidence of tenderness throughout. Skin: Warm, dry with normal turgor. Normal color with no rashes, no lesions, and no evidence of cellulitis. MS/ Extremity: Pulses equal, no cyanosis. Neurovascular intact. Full, normal range of motion. Neuro: Awake and alert, GCS 15, oriented to person, place, time, and situation. Cranial nerves II-XII grossly intact. Motor strength 5/5 in all extremities. Sensory grossly intact. Cerebellar exam normal. Normal gait. Vital Signs: 17:39 BP 157 / 90; Pulse 112; Resp 24; Temp 99.2; Pulse Ox 96% on R/A; Weight 143.34 kg; hb Height 5 ft. 11 in. (180.34 cm); Pain 7/10; 18:25 BP 139 / 95; Pulse 103; Resp 21; Pulse Ox 100% on Nebulizer Mask; ca1 19:20 BP 128 / 84; Pulse 114; Resp 24 S; Pulse Ox 99% on R/A; ca1 20:28 BP 136 / 75; Pulse 120; Resp 28; Pulse Ox 100% on R/A; ca1 21:06 BP 153 / 95; Pulse 124; Resp 28; Pulse Ox 91% on R/A; ca1 21:10 Pulse Ox 88% on R/A; ca1 21:15 Pulse Ox 94% on 2 lpm NC; ca1 22:00 BP 122 / 76; Pulse 122; Resp 22; Pulse Ox 94% on 2 lpm NC; sg 22:30 BP 114 / 75; Pulse 122; Resp 24; Pulse Ox 97% on 2 lpm NC; rv 23:00 BP 132 / 76; Pulse 120; Resp 23; Temp 98.9; Pulse Ox 97% on 2 lpm NC; rv 17:39 Body Mass Index 44.07 (143.34 kg, 180.34 cm) hb MDM: 17:52 Patient medically screened. ma2 18:43 Differential Diagnosis: Obstructed Airway Bronchitis Influenza Upper Respiratory ma2 Infection Sinusitis Pharyngitis. Data reviewed: vital signs, nurses notes. 20:40 Counseling: I had a detailed discussion with the patient and/or guardian regarding: the ma2 historical points, exam findings, and any diagnostic results supporting the discharge/admit diagnosis, the presence of at least one elevated blood pressure reading (>120/80) during this emergency department visit, the need for further work-up and treatment in the hospital. Response to treatment: the patient's symptoms have markedly improved after treatment. 11/26 18:15 Order name: Amylase, Serum ca1 11/26 18:15 Order name: Basic Metabolic Panel ca1 11/26 18:15 Order name: Blood Culture Adult (2) ca1 11/26 18:15 Order name: CBC with Diff ca1 11/26 18:15 Order name: Ckmb ca1 11/26 18:15 Order name: CPK ca1 11/26 18:15 Order name: Lactate ca1 11/26 18:15 Order name: LFT's ca1 11/26 18:15 Order name: Lipase ca1 11/26 18:15 Order name: Procalcitonin ca1 11/26 18:15 Order name: Protime (+inr) ca1 11/26 18:15 Order name: Ptt, Activated ca1 11/26 18:15 Order name: Troponin (emerg Dept Use Only) ca1 11/26 18:15 Order name: Urine Microscopic Only ca1 11/26 18:17 Order name: Flu ca1 11/26 18:35 Order name: CBC with Automated Diff; Complete Time: 19:52 EDMS 11/26 18:35 Order name: Glucose, Ancillary Testing; Complete Time: 19:52 EDMS 11/26 18:51 Order name: Basic Metabolic Panel; Complete Time: 19:52 EDMS 11/26 18:51 Order name: Liver (Hepatic) Function; Complete Time: 19:52 EDMS 11/26 18:51 Order name: Creatine Phosphokinase; Complete Time: 19:52 EDMS 11/26 18:51 Order name: CKMB Creatine Kinase MB; Complete Time: 19:52 EDMS 11/26 18:51 Order name: Troponin (Emerg Dept Use Only); Complete Time: 19:52 EDMS 11/26 18:51 Order name: Amylase Level; Complete Time: 19:52 EDMS 11/26 18:51 Order name: Lipase; Complete Time: 19:52 EDMS 11/26 19:18 Order name: Influenza Screen (A ; Complete Time: 19:52 EDMS 11/26 19:44 Order name: Procalcitonin; Complete Time: 19:52 EDMS 11/26 19:46 Order name: CBC Smear Scan; Complete Time: 19:52 EDMS 11/26 20:00 Order name: Urine Dipstick--Ancillary (enter results) ar5 11/26 20:07 Order name: Lactate EDNJ 11/26 20:46 Order name: Urine Dipstick-Ancillary EDNJ 11/26 18:15 Order name: Chest Single View XRAY ca1 11/26 18:15 Order name: Accucheck; Complete Time: 18:15 ca1 11/26 18:15 Order name: Cardiac monitoring; Complete Time: 18:15 ca1 11/26 18:15 Order name: EKG - Nurse/Tech; Complete Time: 18:17 ca1 11/26 18:15 Order name: IV Saline Lock - Large Bore; Complete Time: 18:15 ca1 11/26 18:15 Order name: Labs collected and sent; Complete Time: 18:15 ca1 11/26 18:15 Order name: O2 Per Protocol; Complete Time: 18:15 ca1 11/26 18:15 Order name: O2 Sat Monitoring; Complete Time: 18:15 ca1 11/26 18:15 Order name: Urine Dipstick-Ancillary (obtain specimen); Complete Time: 20:27 ca1 11/26 22:51 Order name: RAD EDMS Administered Medications: 18:24 Not Given (Physician Discretion): NS 0.9% (30 ml/kg) 30 ml/kg IV at bolus once; Sepsis ca1 Protocol 18:27 Drug: Xopenex 1.25 mg Route: Inhalation; ca1 18:27 Drug: Xopenex 1.25 mg Route: Inhalation; ca1 18:30 Drug: NS 0.9% 500 ml Route: IV; Rate: bolus; Site: right antecubital; ca1 23:09 Follow up: IV Status: Completed infusion; IV Intake: 500ml rv 18:34 Drug: LevaQUIN 750 mg Volume: 150 ml; Route: IVPB; Infused Over: 90 mins; Site: right ca1 antecubital; 23:09 Follow up: IV Status: Completed infusion rv 20:03 Not Given (TACHYCARDIA): Albuterol - atroVENT (3:1) (2.5 mg - 0.5 mg) 3 ml Nebulizer rv once 20:03 Drug: SOLU-Medrol 125 mg Route: IVP; Site: right antecubital; rv 21:04 Follow up: Response: No adverse reaction ca1 20:04 Drug: morphine 4 mg {Note: RASS 0.} Route: IVP; Site: right antecubital; rv 21:04 Follow up: Response: No adverse reaction; Pain is decreased; RASS: Alert and Calm (0) ca1 20:04 Drug: Zofran 4 mg Route: IVP; Site: right antecubital; rv 21:05 Follow up: Response: No adverse reaction; Nausea is decreased ca1 20:04 Drug: Xopenex (3) 1.25 mg Route: Inhalation; rv 21:05 Follow up: Response: No adverse reaction ca1 20:19 Drug: Lasix 60 mg Route: IVP; Site: right antecubital; rv 21:04 Follow up: Urine output 1100 ml; Response: No adverse reaction ca1 Disposition: 11/26/19 20:41 Hospitalization ordered by Matty Pina for Inpatient Admission. Preliminary diagnosis are Asthma, Pneumonia due to other specified bacteria. - Bed requested for Telemetry/MedSurg (observation). - Status is Inpatient Admission. rv - Condition is Stable. - Problem is new. - Symptoms are unchanged. Signatures: Dispatcher [employer] Tino Johnson RN RN Sonia Tyler RN RN Matty uH MD MD [facility] Jose Purcell RN RN rv Acob, JUAN M Maria RN ca1 Corrections: (The following items were deleted from the chart) 20:41 20:41 Hospitalization Ordered by Matty Pina MD for Observation. Preliminary [facility] diagnosis is Asthma; Pneumonia due to other specified bacteria. Bed requested for Telemetry/MedSurg (observation). Status is Observation. Condition is Stable. Problem is new. Symptoms are unchanged. ma2 22:56 20:41 11/26/2019 20:41 Hospitalization Ordered by Matty Pina MD for Inpatient sg Admission. Preliminary diagnosis is Asthma; Pneumonia due to other specified bacteria. Bed requested for Telemetry/MedSurg (observation). Status is Inpatient Admission. Condition is Stable. Problem is new. Symptoms are unchanged. ma2 23:12 22:56 11/26/2019 20:41 Hospitalization Ordered by Matty Pina MD for Inpatient rv Admission. Preliminary diagnosis is Asthma; Pneumonia due to other specified bacteria. Bed requested for Telemetry/MedSurg (observation). Status is Inpatient Admission. Condition is Stable. Problem is new. Symptoms are unchanged. sg
--- NOTE | 2019-11-26 20:44 | ER ---
Nurse's Notes [facility] Name: Shai Gonzalez Jr Age: 58 yrs Sex: Male : 1960 Arrival Date: 11/26/2019 Time: 17:37 Bed 8 Private MD: Trent Santiago H Diagnosis: Asthma;Pneumonia due to other specified bacteria Presentation: 11/26 17:37 Presenting complaint: Productive cough with yellow sputum,. pain with cough, and SOB x hb 3 days. Transition of care: patient was not received from another setting of care. Onset of symptoms was November 23, 2019. Risk Assessment: Do you want to hurt yourself or someone else? Patient reports no desire to harm self or others. Care prior to arrival: None. 17:37 Method Of Arrival: Ambulatory hb 17:37 Acuity: MARIA INES 3 hb 17:58 Initial Sepsis Screen: Does the patient meet any 2 criteria? RR > 20 per min. HR > 90 ca1 bpm. Does the patient have a suspected source of infection? Yes: Productive cough/pneumonia. 17:59 Acuity: MARIA INES 2 ca1 Historical: - Allergies: 17:39 No Known Allergies; hb - PMHx: 17:39 ascites; Asthma; Back pain; colon cancer; Diabetes - NIDDM; Gout; Hypertension; hb - PSHx: 17:39 None; hb - Immunization history:: Adult Immunizations up to date. - Coronavirus screen:: The patient has NOT traveled to [place] in the past 14 days. The patient has NOT had contact with known/suspected case of Coronavirus? Proceed with normal triage procedures. - Social history:: Patient/guardian denies using alcohol, street drugs, The patient lives with family, Smoking status: Patient denies any tobacco usage or history of. - Family history:: not pertinent. - Ebola Screening: : No symptoms or risks identified at this time. Screenin:54 Abuse screen: Denies threats or abuse. Denies injuries from another. Nutritional ca1 screening: No deficits noted. Tuberculosis screening: No symptoms or risk factors identified. Fall Risk IV access (20 points). Assessment: 17:54 General: Appears distressed, comfortable, Behavior is calm, cooperative, appropriate ca1 for age. Pain: Complains of pain in right upper quadrant Aggravated by coughing. Neuro: Level of Consciousness is awake, alert, obeys commands, Oriented to person, place, time, situation, Appropriate for age. Cardiovascular: Heart tones S1 S2 present Capillary refill < 3 seconds Patient's skin is warm and dry. Cardiovascular: Rhythm is atrial fibrillation. Respiratory: Reports shortness of breath at rest cough that is non-productive, Airway is patent Respiratory effort is even, unlabored, Respiratory pattern is regular, symmetrical, Breath sounds are diminished Breath sounds with wheezes bilaterally. GI: Abdomen is round non-distended, obese, Bowel sounds present X 4 quads. Abd is soft and non tender X 4 quads. : No signs and/or symptoms were reported regarding the genitourinary system. EENT: No signs and/or symptoms were reported regarding the EENT system. Derm: Skin is intact, is healthy with good turgor, Skin is pink, warm \T\ dry. Musculoskeletal: Circulation, motion, and sensation intact. Capillary refill < 3 seconds, Range of motion: intact in all extremities. 18:25 Reassessment: VO give only NS 500ml bolus and Xopenex 2.5. ca1 18:35 Reassessment: Patient appears in no apparent distress at this time. Patient and/or ca1 family updated on plan of care and expected duration. Pain level reassessed. Patient is alert, oriented x 3, equal unlabored respirations, skin warm/dry/pink. 19:25 Reassessment: Patient appears in no apparent distress at this time. Patient and/or ca1 family updated on plan of care and expected duration. Pain level reassessed. Patient is alert, oriented x 3, equal unlabored respirations, skin warm/dry/pink. Reassessment: Ambulated to restroom, with steady gait. 20:28 Reassessment: Patient appears in no apparent distress at this time. Patient and/or ca1 family updated on plan of care and expected duration. Pain level reassessed. Patient is alert, oriented x 3, equal unlabored respirations, skin warm/dry/pink. 21:12 Reassessment: Patient appears in no apparent distress at this time. Patient is alert, ca1 oriented x 3, equal unlabored respirations, skin warm/dry/pink. 23:09 Reassessment: Patient appears in no apparent distress at this time. Patient and/or rv family updated on plan of care and expected duration. Pain level reassessed. Patient is alert, oriented x 3, equal unlabored respirations, skin warm/dry/pink. patient is alert and oriented upon admission. respiration is still labored. with oxygen therapy at 2 LPM via nasal cannula. given report to Dagoberto MCGOWAN, she took the patient to the floor via wheelchair with oxygen running at 2LPM via nasal cannula. Patient denies pain at this time. Patient states feeling better. Patient states symptoms have improved. Vital Signs: 17:39 BP 157 / 90; Pulse 112; Resp 24; Temp 99.2; Pulse Ox 96% on R/A; Weight 143.34 kg; hb Height 5 ft. 11 in. (180.34 cm); Pain 7/10; 18:25 BP 139 / 95; Pulse 103; Resp 21; Pulse Ox 100% on Nebulizer Mask; ca1 19:20 BP 128 / 84; Pulse 114; Resp 24 S; Pulse Ox 99% on R/A; ca1 20:28 BP 136 / 75; Pulse 120; Resp 28; Pulse Ox 100% on R/A; ca1 21:06 BP 153 / 95; Pulse 124; Resp 28; Pulse Ox 91% on R/A; ca1 21:10 Pulse Ox 88% on R/A; ca1 21:15 Pulse Ox 94% on 2 lpm NC; ca1 22:00 BP 122 / 76; Pulse 122; Resp 22; Pulse Ox 94% on 2 lpm NC; sg 22:30 BP 114 / 75; Pulse 122; Resp 24; Pulse Ox 97% on 2 lpm NC; rv 23:00 BP 132 / 76; Pulse 120; Resp 23; Temp 98.9; Pulse Ox 97% on 2 lpm NC; rv 17:39 Body Mass Index 44.07 (143.34 kg, 180.34 cm) hb ED Course: 17:37 Patient arrived in ED. mr 17:37 Trent Santiago DO is Private Physician. mr 17:38 Triage completed. hb 17:39 Arm band placed on. hb 17:51 Candace Sotomayor, JUAN M is Primary Nurse. ca1 17:52 Matty Hu MD is Attending Physician. ma2 17:54 Patient has correct armband on for positive identification. Placed in gown. Bed in low ca1 position. Call light in reach. Side rails up X2. Pulse ox on. NIBP on. Warm blanket given. 18:15 No provider procedures requiring assistance completed. Inserted saline lock: 20 gauge ca1 in right antecubital area, using aseptic technique. Blood collected. 18:15 Initial lab(s) drawn, by laborer landscape, sent to lab. First set of blood cultures drawn by ca1 lab staff. 18:25 Second set of blood cultures drawn by lab staff. ca1 18:37 EKG done, by ED staff, reviewed by Matty Hu MD. ca1 20:41 Matty Pina MD is Hospitalizing Provider. ma2 21:12 Patient admitted, IV remains in place. ca1 Administered Medications: 18:24 Not Given (Physician Discretion): NS 0.9% (30 ml/kg) 30 ml/kg IV at bolus once; Sepsis ca1 Protocol 18:27 Drug: Xopenex 1.25 mg Route: Inhalation; ca1 18:27 Drug: Xopenex 1.25 mg Route: Inhalation; ca1 18:30 Drug: NS 0.9% 500 ml Route: IV; Rate: bolus; Site: right antecubital; ca1 23:09 Follow up: IV Status: Completed infusion; IV Intake: 500ml rv 18:34 Drug: LevaQUIN 750 mg Volume: 150 ml; Route: IVPB; Infused Over: 90 mins; Site: right ca1 antecubital; 23:09 Follow up: IV Status: Completed infusion rv 20:03 Not Given (TACHYCARDIA): Albuterol - atroVENT (3:1) (2.5 mg - 0.5 mg) 3 ml Nebulizer rv once 20:03 Drug: SOLU-Medrol 125 mg Route: IVP; Site: right antecubital; rv 21:04 Follow up: Response: No adverse reaction ca1 20:04 Drug: morphine 4 mg {Note: RASS 0.} Route: IVP; Site: right antecubital; rv 21:04 Follow up: Response: No adverse reaction; Pain is decreased; RASS: Alert and Calm (0) ca1 20:04 Drug: Zofran 4 mg Route: IVP; Site: right antecubital; rv 21:05 Follow up: Response: No adverse reaction; Nausea is decreased ca1 20:04 Drug: Xopenex (3) 1.25 mg Route: Inhalation; rv 21:05 Follow up: Response: No adverse reaction ca1 20:19 Drug: Lasix 60 mg Route: IVP; Site: right antecubital; rv 21:04 Follow up: Urine output 1100 ml; Response: No adverse reaction ca1 Intake: 23:09 IV: 500ml; Total: 500ml. rv Output: 21:04 Urine: 1100ml; Total: 1100ml. ca1 Outcome: 20:41 Decision to Hospitalize by Provider. ma2 23:12 Admitted to Med/surg accompanied by nurse, via wheelchair, room 211, with oxygen, with rv chart, Report called to DAGOBERTO MCGOWAN 23:12 Condition: stable 23:12 Discharge instructions given to patient, Instructed on the need for admit, Demonstrated understanding of instructions. 23:12 Patient left the ED. rv Signatures: Tino Clark RN RN Charo Wilson mr TylerSonia RN RN hb Matty Hu MD MD ak2 Jose Purcell RN RN rv Candace Sotomayor RN RN ca1 Corrections: (The following items were deleted from the chart) 17:40 17:39 BP 157 / 90; Pulse 112bpm; Resp 24bpm; Pulse Ox 95% RA; Temp 99.2F; 143.34 kg; hb Height 5 ft. 11 in.; BMI: 44.0; Pain 7/10; hb 21:15 21:06 BP 153 / 95; Pulse 124bpm; Resp 28bpm; Pulse Ox 94% RA; ca1 ca1
[2019-11-26] MEDS ORDERED: ACETAMINOPHEN 500 MG TAB PO PRN (21:17)
[2019-11-26] MEDS ORDERED: MORPHINE 2 MG/ML SYR IV PRN (21:17)
[2019-11-26] MEDS ORDERED: ONDANSETRON 4 MG/2 ML VIAL IV PRN (21:17)
[2019-11-26 21:29] LABS: Protime INR 1.24
[2019-11-26] MEDS ORDERED: NA CHLORIDE 0.9% 1,000 ML IV SCH (22:00)
[2019-11-26] MEDS ORDERED: ALBUTEROL 2.5 MG/3 ML NEB SOL NEB SCH (22:00)
[2019-11-27 00:54] VITALS: BMI 43.4
[2019-11-27] MEDS: METHYLPREDNISOLONE 125 MG INJ IV SCH ×2 (00:54→05:08)
[2019-11-27] MEDS ORDERED: HYDROCODONE/CHLORPHEN 5 ML/OSYR PO PRN (01:33)
[2019-11-27] MEDS: IPRATROPIUM BROM 0.5MG/2.5ML NEB SCH ×2 (02:25→08:10)
[2019-11-27 04:28] VITALS: O2SAT 92
[2019-11-27 05:27] LABS: Absolute Lymphocytes (CBC) 0.5 K/uL (0.7-4.9); Basophils % 0.4 % (0-1.3); Hematocrit 40.9 % (39.6-49.0); Lymphocytes % 16.8 % (15.3-44.8); MPV 8.8 fL (7.6-11.3); RBC Red Blood Cell Count 4.39 M/uL (4.33-5.43)
[2019-11-27 05:43] LABS: Albumin 3.4 g/dL (3.4-5.0); Bilirubin Total 0.3 mg/dL (0.2-1.0); Potassium 4.1 mmol/L (3.5-5.1); Protein, Total 8.4 g/dL (6.4-8.2)
[2019-11-27 06:07] LABS: Blood Morphology Comment NOT SEEN (NOT SEEN); Platelet Estimate ADEQ
[2019-11-27] MEDS ORDERED: BENZONATATE 100 MG CAP PO PRN (08:17)
[2019-11-27] MEDS: predniSONE 10 MG TAB PO SCH ×2 (08:31→09:28)
--- NOTE | 2019-11-27 08:42 | EKG ---
Test Date: 2019-11-26 Test Time: 18:23:15 Medical Transcription Editor: DWIGHT MEASUREMENT RESULTS: Intervals: Rate: 103 VT: QRSD: 76 QT: 272 QTc: 356 Valentines: P: VT: QRS: 36 T: 124 INTERPRETIVE STATEMENTS: Atrial flutter with variable AV block Nonspecific T wave abnormality Abnormal ECG Compared to ECG 10/16/2019 10:09:51 No significant changes Electronically Signed On 11-27-19 08:41:05 MATERIAL WORKER by Slick Velásquez
[2019-11-27] MEDS ORDERED: CEFTRIAXONE/SWI 1gm 1 GM/10 ML SYR IV SCH (09:00)
[2019-11-27] MEDS ORDERED: DULERA 200/5 (MOMETASONE/FORMOTEROL) INHALER IH SCH (09:00)
[2019-11-27] MEDS ORDERED: CEFTRIAXONE 1 GM/NS 50 ML 1 GM/50 ML BAG IV SCH (09:00)
[2019-11-27] MEDS ORDERED: HYDROCODONE/APAP 10/325 TAB PO PRN (10:20)
--- NOTE | 2019-11-27 10:33 | RAD REPORT ---
EXAM DESCRIPTION: CT - Chest Abdomen Pelvis W Cont - 11/27/2019 9:02 am CLINICAL HISTORY: abdominal distention/pleural effusion COMPARISON: Chest dated 10/17/2019; Abdomen Pelvis W Contrast dated 09/27/2019 TECHNIQUE: Following dynamic enhancement using 100 milliliters nonionic IV contrast, axial imaging o f the chest, abdomen and pelvis was performed. Biphasic technique was utilized through the abdomen. Oral contrast was administered. All CT scans are performed using dose optimization technique as appropriate and may include automated exposure control or mA/KV adjustment according to patient size. FINDINGS: Patchy alveolar opacification is present in the inferior aspect of the left lower lobe. No dense consolidation or air bronchogram formation. No endobronchial lesions seen. Left upper lung fie ld is clear. Partial atelectasis is present in the right lower lobe. Small to moderate right pleural fluid collection is present primarily in the right lung base. Stranding is seen along the margins of the pleural fluid and there are several small focal areas of pleural fluid present. Fluid is present along the superior aspect of the major fissure. Loculation of the right pleural fluid is suspected. No pneumothorax. No pleural based mass. No significant aortic or pulmonary arterial tree finding. Me diastinal and hilar regions show no mass or abnormal lymphadenopathy. No chest wall mass or axillary lymphadenopathy. Liver size is normal. There is a small 11 millimeter focus of enhancement in the lateral mid right lo be (image 62/95) on arterial phase imaging. This is isodense on venous phase imaging. No other liver lesions identifiable. There is slight nodular contour to the liver parenchyma. Spleen is normal size. No acute pancreatic process. Gallbladder and biliary tree are unremarkable. G allstones can be occult on CT imaging. Symmetric renal function is seen with no mass or hydronephrosi s. No right adrenal abnormality. A 4.2 centimeter left adrenal mass is present. This is heterogeneous in attenuation includes a small calcification. No gastric dilatation or wall thickening. No acute small bowel finding. Moderate stool volume is pres ent in the colon from cecum to the splenic flexure. There is a long segment stent within the lumen of the descending colon presumed to be the site of colon malignancy. There is omental nodularity in the left mid abdomen suspicious for metastatic disease. No new or enlarging colon mass. No free air, ama e fluid or pneumatosis. Bony degenerative changes are present. SI joints are fused. Pathologic bone process is not identified . No significant vascular findings. IMPRESSION: Alveolar opacities are present in the left lower lobe typical for mild pneumonia. Small to moderate right-sided pleural effusion with atelectasis. Loculation is suspected.No chest mal ignant finding confirmed. Pleural fluid is similar to the September 2019 CT abdomen study. Nodular liver capsule could indicate cirrhosis or hepatic parenchymal disease. A small enhancing focu s in the lateral right lobe is not substantially different from comparison. Left-sided omental nodularity suspicious for metastatic disease. This is similar to comparison. Patie nt has a long segment of the descending colon stented. This is presumed to be the area of primary col on malignancy. No enlarging mass at the stent. A 4.2 centimeter left adrenal mass is present and stable.
[2019-11-27] MEDS ORDERED: DRISDOL (VITAMIN D=ERGOCALCIFEROL) 50000 UNIT CAP PO SCH (11:00)
--- NOTE | 2019-11-27 12:10 | CON ---
Patient admitted on 11/26/[address] Peters. Reason For Consultation: Chest pain and cough and atrial flutter. History Of Present Illness: Mr. Gonzalez is a 58-year-old black male, who has multiple past medical hi story including history of colon cancer, presently on chemotherapy. He has history of ascites, diabe elissa, gout, hypertension. He came in with cough, asthma exacerbation, atypical chest pain. Had a dori st x-ray showing bilateral pleural effusion. Was found in atrial flutter, which is chronic to him. He is on sotalol and is not on any anticoagulation apparently because of history of bleeding. His ra te is controlled. Denied syncope. Past Medical History: As stated above. Allergies: NONE. Review of Systems: Negative. Social History: Negative. Family History: Noncontributory. Medications: At home include Norvasc, glimepiride, Lopressor, aspirin, Lasix, insulin, Tradjenta, so talol and Flomax. Physical Examination: General: He was in no acute distress. Vital Signs: Stable. He was in atrial flutter at a rate of 80. He weighed 312 pounds. HEENT: Negative. Neck: Supple without any bruit. Chest: Reveals some rales and decreased breath sounds in both bases. Cardiac: Revealed atrial flutter. No murmurs, gallops, or rubs. Abdomen: Obese. Positive for ascites. Nontender. Extremities: Revealed 1+ edema. Skin: Dry and intact. Neurologic: He was nonfocal. Impression And Plan: 1.Atypical chest pain. Echocardiogram is pending. Maybe we will do an outpatient stress test on hi m down the road. 2.Pleural effusion, ascites, possibly related to his colon cancer. 3.Chronic atrial fibrillation and flutter, on sotalol, rate controlled. He is on aspirin. Not a ca ndidate for anticoagulation. 4.His other problems include diabetes, gout, and hypertension. Both of those are well controlled. He has an echocardiogram pending. We will see what that shows. Continue present medical regimen. W e will consider an outpatient stress test in the near future. LAURA/AZAML Voice ID: [id number] Report ID: [id number]
--- NOTE | 2019-11-27 12:26 | P.DS ---
Admission Date: 11/26/19 Discharge Date: 11/27/19 Primary Care Provider: Dr. Santiago; Pulm-Dr. Goddard; Oncology-[place] Disposition: ROUTINE DISCHARGE Discharge Condition: GOOD Reason for Admission: SOB Consultations: Pulmonary-Dr. Goddard Cardiology-Dr. Velásquez Procedures: CT Scan: FINDINGS: Patchy alveolar opacification is present in the inferior aspect of the left lower lobe. No dense consolidation or air bronchogram formation. No endobronchial lesions seen. Left upper lung field is clear. Partial atelectasis is present in the right lower lobe. Small to moderate right pleural fluid collection is present primarily in the right lung base. Stranding is seen along the margins of the pleural fluid and there are several small focal areas of pleural fluid present. Fluid is present along the superior aspect of the major fissure. Loculation of the right pleural fluid is suspected. No pneumothorax. No pleural based mass. No significant aortic or pulmonary arterial tree finding. Mediastinal and hilar regions show no mass or abnormal lymphadenopathy. No chest wall mass or axillary lymphadenopathy. Liver size is normal. There is a small 11 millimeter focus of enhancement in the lateral mid right lobe (image 62/95) on arterial phase imaging. This is isodense on venous phase imaging. No other liver lesions identifiable. There is slight nodular contour to the liver parenchyma. Spleen is normal size. No acute pancreatic process. Gallbladder and biliary tree are unremarkable. Gallstones can be occult on CT imaging. Symmetric renal function is seen with no mass or hydronephrosis. No right adrenal abnormality. A 4.2 centimeter left adrenal mass is present. This is heterogeneous in attenuation includes a small calcification. No gastric dilatation or wall thickening. No acute small bowel finding. Moderate stool volume is present in the colon from cecum to the splenic flexure. There is a long segment stent within the lumen of the descending colon presumed to be the site of colon malignancy. There is omental nodularity in the left mid abdomen suspicious for metastatic disease. No new or enlarging colon mass. No free air, free fluid or pneumatosis. Bony degenerative changes are present. SI joints are fused. Pathologic bone process is not identified. No significant vascular findings. IMPRESSION: Alveolar opacities are present in the left lower lobe typical for mild pneumonia. Small to moderate right-sided pleural effusion with atelectasis. Loculation is suspected.No chest malignant finding confirmed. Pleural fluid is similar to the September 2019 CT abdomen study. Nodular liver capsule could indicate cirrhosis or hepatic parenchymal disease. A small enhancing focus in the lateral right lobe is not substantially different from comparison. Left-sided omental nodularity suspicious for metastatic disease. This is similar to comparison. Patient has a long segment of the descending colon stented. This is presumed to be the area of primary colon malignancy. No enlarging mass at the stent. A 4.2 centimeter left adrenal mass is present and stable. Medical Problem List: Shortness of breath secondary to bronchitis likely viral with underlying reactive airway disease Colon cancer with metastasis to the liver, omentum Chronic small moderate right pleural effusion with atelectasis Chronic atrial fibrillation not on chronic anti coagulation therapy Hypertension Diabetes mellitus type 2 insulin dependent Chronic pain secondary to cancer Brief History of Present Illness: 58-year-old male presented to emergency room with shortness of breath. Patient with history of colon cancer with metastasis, diabetes, hypertension and atrial fibrillation. Patient was admitted for further evaluation. Hospital Course: Patient presented with shortness of breath. Patient was admitted for further evaluation. Patient seen and evaluated by pulmonology. CT scan showed a chronic small to moderate right pleural effusion with atelectasis. White count unremarkable. Pro calcitonin negative. Pulmonology felt shortness of breath was related to bronchitis likely viral with underlying reactive airway disease. Patient has done well. No need for home oxygen at this time. At discharge patient will continue with prednisone 10 mg 1 pill twice daily for 5 days then 1 pill once daily for 5 days. Patient will also be provided Tessalon Perles 100 mg 3 times a day as needed for cough. Patient will continue with Dulera 2 puffs twice daily and Xopenex 2 puffs 3 times a day as needed for shortness of breath. Recommend follow up with pulmonology in 1-2 weeks to follow up this hospitalization. Patient may require pulmonary function test as an outpatient to further evaluate. Patient with underlying colon cancer with metastasis to the liver and omentum. Chronic pleural effusion noted with atelectasis. Patient currently getting chemotherapy. Patient has follow up with oncology within the next week. Recommend follow up with oncology to further address his condition. CT scan shows no significant change from September 2019. Patient with chronic atrial fibrillation not on chronic anti coagulation therapy due to his cancer. This was discussed in detail with Cardiology. At discharge patient will continue with his medication Betapace 80 mg 1 pill twice daily. Patient with hypertension. This has remained stable. At discharge she will continue with metoprolol 25 mg 1 pill twice daily. Patient with diabetes mellitus type 2 insulin dependent. Blood sugar stable. At discharge he will continue with insulin 70/30 30 units subcu twice daily, glimepiride 4 mg daily, and Tradjenta 5 mg daily. Patient is to monitor for hypoglycemia. Further adjustment in medication may be required. This can be done with the help of his PCP. Patient with chronic pain. Patient may continue with hydrocodone as directed. Further adjustment in medication can be done by his PCP or oncology. I will provide a limited supply of tramadol 50 mg 1 pill 3 times a day for pain. Vital Signs/Physical Exam: Temp Pulse Resp BP Pulse Ox 97.4 F 113 H 18 133/80 95 11/27/19 08:00 11/27/19 08:00 11/27/19 11:04 11/27/19 08:00 11/27/19 11:04 General: Alert, In no apparent distress, Oriented x3, Cooperative HEENT: Atraumatic Neck: Supple Respiratory: Expiratory wheezes (Mild) Cardiovascular: Irregular heart rate/rhythm (Atrial fibrillation rate slightly increased) Gastrointestinal: Normal bowel sounds, Soft and benign, Non-distended, No tenderness, No masses, No rebound, No guarding Musculoskeletal: No tenderness, No warmth Integumentary: No erythema, No warmth, No cyanosis Neurological: Normal speech, Normal strength at 5/5 x4 extr, Normal tone, Normal affect Laboratory Data at Discharge: WBC 2.9 K/uL (4.3-10.9) L D 11/27/19 05:02 Hgb 12.9 g/dL (13.6-17.9) L 11/27/19 05:02 Hct 40.9 % (39.6-49.0) 11/27/19 05:02 Plt Count 235 K/uL (152-406) 11/27/19 05:02 PT 14.5 SECONDS (9.5-12.5) H 11/26/19 20:55 INR 1.24 11/26/19 20:55 APTT 30.9 SECONDS (24.3-36.9) 11/26/19 20:55 Sodium 134 mmol/L (136-145) L 11/27/19 05:02 Potassium 4.1 mmol/L (3.5-5.1) 11/27/19 05:02 BUN 17 mg/dL (7-18) 11/27/19 05:02 Creatinine 1.04 mg/dL (0.55-1.3) 11/27/19 05:02 Glucose 294 mg/dL (74-106) H 11/27/19 05:02 Total Bilirubin 0.3 mg/dL (0.2-1.0) 11/27/19 05:02 AST 27 U/L (15-37) 11/27/19 05:02 ALT 34 U/L (12-78) 11/27/19 05:02 Alkaline Phosphatase 72 U/L (45-117) 11/27/19 05:02 Amylase 40 U/L (25-115) 11/26/19 18:10 Lipase 113 U/L (73-393) 11/26/19 18:10 Home Medications: Amlodipine [Norvasc*] 10 mg PO [id number] 10/16/19 Furosemide 40 mg PO DAILY 10/16/19 Glimepiride 4 mg PO [id number] 10/16/19 Insulin NPH Hum/Reg Insulin Hm [Novolin 70-30 Flexpen] 30 unit SQ BID 6AM 6PM Linagliptin [Tradjenta] 5 mg PO [id number] 10/16/19 Sotalol HCl [Betapace*] 80 mg PO BID 6AM 6PM 10/16/19 Tamsulosin HCl 0.4 mg PO [id number] 10/16/19 Aspirin Chewable [Aspirin Chewable*] 81 mg PO DAILY 11/27/19 Benzonatate [Tessalon Perle*] 100 mg PO TID PRN #15 cap 11/27/19 Docusate [Colace Cap*] 100 mg PO BID 11/27/19 Ergocalciferol (Vitamin D2) [Vitamin D 50,000 Unit Cap] 50,000 unit PO Q7D 11/27 Hydrocodone 10/APAP 325 [[place] 10/325*] 1 tab PO Q6H PRN 11/27/19 Levalbuterol Tartrate [Xopenex Hfa] 2 puff IH TID PRN #1 hfa.aer.ad 11/27/19 Metoprolol Tartrate [Lopressor*] 25 mg PO BID 11/27/19 Mometasone/Formoterol [Dulera 200 Mcg/5 Mcg Inhaler] 2 puff IH BID #1 inhaler Polyethyl Gly 3350 [Glycolax*] 17 gm PO DAILYPRN PRN 11/27/19 Promethazine HCl 12.5 mg PO Q6HP PRN 11/27/19 Tramadol HCl [Ultram] 50 mg PO TID PRN #15 tablet 11/27/19 predniSONE [Deltasone*] 10 mg PO SEECOM #15 tab 11/27/19 New Medications: Benzonatate [Tessalon Perle*] 100 mg PO TID PRN #15 cap PRN Reason: Cough Levalbuterol Tartrate [Xopenex Hfa] 2 puff IH TID PRN #1 hfa.aer.ad PRN Reason: Shortness Of Breath Mometasone/Formoterol [Dulera 200 Mcg/5 Mcg Inhaler] 2 puff IH BID #1 inhaler predniSONE [Deltasone*] 10 mg PO SEECOM #15 tab Tramadol HCl [Ultram] 50 mg PO TID PRN #15 tablet PRN Reason: Pain Scale 2-4 (Mild) Patient Discharge Instructions: 1. Recommend follow up with PCP in 1-2 weeks to follow up this hospitalization. 2. Patient presented with shortness of breath. Patient was admitted for further evaluation. Patient seen and evaluated by pulmonology. CT scan showed a chronic small to moderate right pleural effusion with atelectasis. White count unremarkable. Pro calcitonin negative. Pulmonology felt shortness of breath was related to bronchitis likely viral with underlying reactive airway disease. Patient has done well. No need for home oxygen at this time. At discharge patient will continue with prednisone 10 mg 1 pill twice daily for 5 days then 1 pill once daily for 5 days. Patient will also be provided Tessalon Perles 100 mg 3 times a day as needed for cough. Patient will continue with Dulera 2 puffs twice daily and Xopenex 2 puffs 3 times a day as needed for shortness of breath. Recommend follow up with pulmonology in 1-2 weeks to follow up this hospitalization. Patient may require pulmonary function test as an outpatient to further evaluate. 3. Patient with underlying colon cancer with metastasis to the liver and omentum. Chronic pleural effusion noted with atelectasis. Patient currently getting chemotherapy. Patient has follow up with oncology within the next week. Recommend follow up with oncology to further address his condition. CT scan shows no significant change from September 2019. 4. Patient with chronic atrial fibrillation not on chronic anti coagulation therapy due to his cancer. This was discussed in detail with Cardiology. At discharge patient will continue with his medication Betapace 80 mg 1 pill twice daily. 5. Patient with hypertension. This has remained stable. At discharge she will continue with metoprolol 25 mg 1 pill twice daily. 6. Patient with diabetes mellitus type 2 insulin dependent. Blood sugar stable. At discharge he will continue with insulin 70/30 30 units subcu twice daily, glimepiride 4 mg daily, and Tradjenta 5 mg daily. Patient is to monitor for hypoglycemia. Further adjustment in medication may be required. This can be done with the help of his PCP. 7. Patient with chronic pain. Patient may continue with hydrocodone as directed. Further adjustment in medication can be done by his PCP or oncology. I will provide a limited supply of tramadol 50 mg 1 pill 3 times a day for pain. Diet: AHA Activity: Ad naida Time spent managing pt's care (in minutes): 55
--- NOTE | 2019-11-27 12:46 | P.CNS ---
Date of Consult: 11/27/19 Reason for Consult: Cough Primary Care Provider: Dr. Santiago; Pulm-Dr. Goddard; Oncology-[place] Chief Complaint: Cough History of Present Illness: Patient is 58 years of age with metastatic colon cancer is been treated in [place] recently had a thoracentesis done his medication was changed admitted to the hospital complaining of acute cough nonproductive no history of obstructive airways disease patient does not smoke no fever chills Allergies No Known Allergies Allergy (Verified 11/26/19 23:54) Home Medications: Amlodipine [Norvasc*] 10 mg PO [id number] 10/16/19 Furosemide 40 mg PO DAILY 10/16/19 Glimepiride 4 mg PO [id number] 10/16/19 Insulin NPH Hum/Reg Insulin Hm [Novolin 70-30 Flexpen] 30 unit SQ BID 6AM 6PM Linagliptin [Tradjenta] 5 mg PO [id number] 10/16/19 Sotalol HCl [Betapace*] 80 mg PO BID 6AM 6PM 10/16/19 Tamsulosin HCl 0.4 mg PO [id number] 10/16/19 Aspirin Chewable [Aspirin Chewable*] 81 mg PO DAILY 11/27/19 Benzonatate [Tessalon Perle*] 100 mg PO TID PRN #15 cap 11/27/19 Docusate [Colace Cap*] 100 mg PO BID 11/27/19 Ergocalciferol (Vitamin D2) [Vitamin D 50,000 Unit Cap] 50,000 unit PO Q7D 11/27 Hydrocodone 10/APAP 325 [[place] 10/325*] 1 tab PO Q6H PRN 11/27/19 Levalbuterol Tartrate [Xopenex Hfa] 2 puff IH TID PRN #1 hfa.aer.ad 11/27/19 Metoprolol Tartrate [Lopressor*] 25 mg PO BID 11/27/19 Mometasone/Formoterol [Dulera 200 Mcg/5 Mcg Inhaler] 2 puff IH BID #1 inhaler Polyethyl Gly 3350 [Glycolax*] 17 gm PO DAILYPRN PRN 11/27/19 Promethazine HCl 12.5 mg PO Q6HP PRN 11/27/19 Tramadol HCl [Ultram] 50 mg PO TID PRN #15 tablet 11/27/19 predniSONE [Deltasone*] 10 mg PO SEECOM #15 tab 11/27/19 - Past Medical/Surgical History Diabetic: Yes -: gout -: HTN -: cataracts -: DM -: colon cancer -: Atrial Fibrillation -: L knee surgery -: hip abscess removal -: Port a cath right chest -: Thoracentesis -: Colon surgery - Family History Mother Medical History: Hypertension Father Medical History: Cancer Notes: throat cancer - Social History Smoking Status: Former smoker, Unknown if ever smoked Alcohol use: Yes CD- Drugs: No Caffeine use: Yes Place of Residence: Home Review of Systems 10-point ROS is otherwise unremarkable General: Weakness Respiratory: Cough, Shortness of Breath Physical Examination Temp Pulse Resp BP Pulse Ox 97.4 F 113 H 18 133/80 95 11/27/19 08:00 11/27/19 08:00 11/27/19 11:04 11/27/19 08:00 11/27/19 11:04 General: Alert, Oriented x3 Neck: Supple Respiratory: Expiratory wheezes Cardiovascular: No edema, Regular rate/rhythm Laboratory Data (last 24 hrs) 11/26/19 20:55: PT 14.5 H, INR 1.24, APTT 30.9 11/26/19 18:10: WBC 3.4 L, Hgb 12.9 L, Hct 39.9, Plt Count 245 11/26/19 18:10: Sodium 139, Potassium 3.4 L, BUN 17, Creatinine 0.99, Glucose 70 L, Total Bilirubin 0.3, AST 34, ALT 31, Alkaline Phosphatase 70, Amylase 40, Lipase 113 - Problems (1) Cough Current Visit: Yes Status: Acute Plan: Patient is 58 years of age admitted with acute cough years metastatic colon cancer recent thoracentesis was positive for malignant cells as per patient chemistries all reviewed mildly neutropenic vital signs are stable he may have underlying reactive airways disease from a viral infection no evidence of bacterial infection pro calcitonin is negative final signs satisfactory patient can be discharged home on inhaler
[2019-11-27 14:17] VITALS: BP 124/65; TEMP 97.8
--- NOTE | 2019-11-27 16:45 | P.HP ---
Certification for Inpatient Patient admitted to: Observation With expected LOS: <2 Midnights Patient will require the following post-hospital care: None Practitioner: I am a practitioner with admitting privileges, knowledge of patient current condition, hospital course, and medical plan of care. Services: Services provided to patient in accordance with Admission requirements found in Title 42 Section 412.3 of the Code of Federal Regulations Patient History Date of Service: 11/26/19 Reason for admission: FEVER/DYSPNEA/METASTATIC LUNG CANCER/PLEURAL EFFUSION History of Present Illness: PATIENT IS A 58YO WHO WAS ADMITTED TO THE HOSPITAL WITH SHORTNESS OF BREATH. PATIENT WAS HAVING WHEEZING AND CONGESTION AND CAME TO THE HOSPITAL. PATIENT HAS A HISTORY OF STAGE IV LUNG CANCER. PATIENT HAS HAD THORACENTESIS WITH REMOVAL OF ABOUT 3 L OF FLUID. THIS WAS DONE FROM THE RIGHT LUNG. PATIENT WAS TOLD THERE WAS CANCER CELLS. PATIENT HAVING AN CHEMOTHERAPY AND HAD A MEDIPORT PLACED OVER A MONTH AGO. HE GETS CHEMOTHERAPY EVERY OTHER WEEK. HE HAS BEEN HAVING SOME ABDOMINAL DISTENTION WELL. WILL GO AHEAD AND GET A CT OF HIS CHEST ABDOMEN AND PELVIS. HE DOES NOT FEEL WELL AND HE HAS BEEN TACHYCARDIC THROUGHOUT HIS STAY. HE WILL PROBABLY NEED INPATIENT HOSPITALIZATION. HE IS ON CHEMOTHERAPY AND I WORRY HIS IMMUNE RESPONSE WILL BE SUPPRESSED IF HE DOES HAVE AN UNDERLYING ILLNESS WHICH COULD COMPROMISE HIS LIFE. HE WILL BE ADMITTED FOR FURTHER WORKUP AT THIS TIME. Allergies No Known Allergies Allergy (Verified 11/26/19 23:54) Home Medications: Amlodipine [Norvasc*] 10 mg PO [id number] 10/16/19 Furosemide 40 mg PO DAILY 10/16/19 Glimepiride 4 mg PO [id number] 10/16/19 Insulin NPH Hum/Reg Insulin Hm [Novolin 70-30 Flexpen] 30 unit SQ BID 6AM 6PM Linagliptin [Tradjenta] 5 mg PO [id number] 10/16/19 Sotalol HCl [Betapace*] 80 mg PO BID 6AM 6PM 10/16/19 Tamsulosin HCl 0.4 mg PO [id number] 10/16/19 Aspirin Chewable [Aspirin Chewable*] 81 mg PO DAILY 11/27/19 Benzonatate [Tessalon Perle*] 100 mg PO TID PRN #15 cap 11/27/19 Docusate [Colace Cap*] 100 mg PO BID 11/27/19 Ergocalciferol (Vitamin D2) [Vitamin D 50,000 Unit Cap] 50,000 unit PO Q7D 11/27 Hydrocodone 10/APAP 325 [[place] 10/325*] 1 tab PO Q6H PRN 11/27/19 Levalbuterol Tartrate [Xopenex Hfa] 2 puff IH TID PRN #1 hfa.aer.ad 11/27/19 Metoprolol Tartrate [Lopressor*] 25 mg PO BID 11/27/19 Mometasone/Formoterol [Dulera 200 Mcg/5 Mcg Inhaler] 2 puff IH BID #1 inhaler Polyethyl Gly 3350 [Glycolax*] 17 gm PO DAILYPRN PRN 11/27/19 Promethazine HCl 12.5 mg PO Q6HP PRN 11/27/19 Tramadol HCl [Ultram] 50 mg PO TID PRN #15 tablet 11/27/19 predniSONE [Deltasone*] 10 mg PO SEECOM #15 tab 11/27/19 - Past Medical/Surgical History Has patient received pneumonia vaccine in the past: Yes Diabetic: Yes -: gout -: HTN -: cataracts -: DM -: LUNG cancer -: Atrial Fibrillation -: L knee surgery -: hip abscess removal -: Port a cath right chest -: Thoracentesis -: Colon surgery - Family History Mother Medical History: Hypertension Father Medical History: Cancer Notes: throat cancer - Social History Alcohol use: Yes CD- Drugs: No Caffeine use: Yes Place of Residence: Home Review of Systems 10-point ROS is otherwise unremarkable Physical Examination - Vital Signs Temperature: 97.8 F Blood Pressure: 124/65 Pulse: 116 Respirations: 17 Pulse Ox (%): 96 - Physical Exam General: Alert, In no apparent distress, Oriented x3 HEENT: Atraumatic, PERRLA, Mucous membr. moist/pink, EOMI, Sclerae nonicteric Neck: Supple, 2+ carotid pulse no bruit, No LAD, Without JVD or thyroid abnormality Respiratory: Diminished, Crackles/rales Cardiovascular: Regular rate/rhythm, Normal S1 S2, Systolic murmur Gastrointestinal: Normal bowel sounds, Soft and benign, Non-distended, No tenderness Musculoskeletal: No clubbing, No tenderness, Swelling Integumentary: No rashes Neurological: Normal speech, Normal tone, Normal affect, Abnormal strength Lymphatics: No axilla or inguinal lymphadenopathy - Studies Laboratory Data (last 24 hrs) 11/26/19 20:55: PT 14.5 H, INR 1.24, APTT 30.9 11/26/19 18:10: WBC 3.4 L, Hgb 12.9 L, Hct 39.9, Plt Count 245 11/26/19 18:10: Sodium 139, Potassium 3.4 L, BUN 17, Creatinine 0.99, Glucose 70 L, Total Bilirubin 0.3, AST 34, ALT 31, Alkaline Phosphatase 70, Amylase 40, Lipase 113 Microbiology Data (last 24 hrs): 11/26/19 18:26 Nasopharnyx Influenza Type A Antigen Screen - Final 11/26/19 18:26 Nasopharnyx Influenza Type B Antigen Screen - Final Assessment & Plan - Problems (Diagnosis) (1) Malignant lung neoplasm Status: Acute (2) Atrial fibrillation Status: Acute Qualifiers: Atrial fibrillation type: paroxysmal Qualified Code(s): I48.0 - Paroxysmal atrial fibrillation (3) History of gout Onset Date: 01/11/18 Status: Acute (4) History of hypertension Onset Date: 01/11/18 Status: Acute (5) Hyperosmolar non-ketotic state in patient with type 2 diabetes mellitus Onset Date: 01/11/18 Status: Acute (6) Pleural effusion Status: Acute (7) Diabetes mellitus Status: Chronic Qualifiers: Diabetes mellitus type: type 2 Diabetes mellitus residential insulin use: without residential use Diabetes mellitus complication status: with hyperglycemia Qualified Code(s): E11.65 - Type 2 diabetes mellitus with hyperglycemia (8) Hypertension Status: Chronic Qualifiers: Hypertension type: essential hypertension Qualified Code(s): I10 - Essential (primary) hypertension (9) Obesity Status: Chronic Qualifiers: Obesity type: due to excess calories Obesity classification: adult class 3 (BMI >= 40) Serious obesity comorbidity presence: with serious comorbidity Body mass index: BMI 40.0-44.9 Qualified Code(s): E66.01 - Morbid (severe) obesity due to excess calories; Z68.41 - Body mass index (BMI) 40.0-44.9, adult ; Z68.41 - Body mass index (BMI) 40.0-44.9, adult; Z68.41 - Body mass index (BMI ) 40.0-44.9, adult; Z68.41 - Body mass index (BMI) 40.0-44.9, adult - Plan PLAN: 1. CONTINUE WITH IV ANTIBIOTICS 2. AWAITING SPUTUM AND BLOOD CULTURE; PROCALCITONIN LEVEL PENDING 3. REPEAT CHEST X-RAY IN AM 4. WILL ORDER CT SCAN OF THE CHEST/ABD/PEL 5. CHECK ECHOCARDIOGRAM TO EVALUATE CARDIAC FUNCTIONING 6. CONTINUE WITH NEBS NEEDED 7. O2 PER PROTOCOL 8. CONTINUE WITH GENTLE HYDRATION 9. REPEAT LABS INCLUDING CBC AND RENAL FUNCTION IN A.M. 10. CONSULT WITH PULMONARY 11. GI AND DVT PROPHYLAXIS Discharge Plan: Home Plan to discharge in: Greater than 2 days - Advance Directives Does patient have a Living Will: No Does patient have a Durable POA for Healthcare: No - Code Status/Comfort Care Code Status Assessed: Yes Code Status: Full Code Critical Care: No Time Spent Managing PTS Care (In Minutes): 45
[2019-11-27] MEDS ORDERED: NPH (HUMAN) 100 UNITS/ML INSULIN SQ SCH (18:00)
[2019-11-27] MEDS ORDERED: SOTALOL HCL 80 MG TAB PO SCH (18:00)
[2019-11-27] MEDS ORDERED: METOPROLOL TAR 25 MG TAB PO SCH (21:00)
[2019-11-27] MEDS ORDERED: DOCUSATE NA 100 MG CAP PO SCH (21:00)
[2019-11-27] MEDS ORDERED: IPRATROPIUM BROM 0.5MG/2.5ML NEB SCH (22:00)
[2019-11-28] MEDS ORDERED: TAMSULOSIN 0.4 MG SR CAP PO SCH (06:00)
[2019-11-28] MEDS ORDERED: AMLODIPINE 10 MG TAB PO SCH (06:00)
[2019-11-28] MEDS ORDERED: FUROSEMIDE 40 MG TABLET PO SCH (09:00)
[2019-11-28] MEDS ORDERED: ASPIRIN 81 MG CHEWABLE TABLET PO SCH (09:00)
== END 2019-11-27 13:43 | disposition home or self-care (01) ==
LOC: ER 17:32 → INTOOBSV 21:47 → ERHOLD 21:47 → 2ND 23:00
PROVIDERS: ADMIT Family Medicine; ATTEND Family Medicine
DX: J40 Bronchitis, not specified as acute or chronic (principal); C34.90 Malignant neoplasm of unspecified part of unspecified bronchus or lung; C18.9 Malignant neoplasm of colon, unspecified; C78.7 Secondary malignant neoplasm of liver and intrahepatic bile duct; C78.6 Secondary malignant neoplasm of retroperitoneum and peritoneum; E27.9 Disorder of adrenal gland, unspecified; J90 Pleural effusion, not elsewhere classified; J98.11 Atelectasis; I48.20 Chronic atrial fibrillation, unspecified; I48.0 Paroxysmal atrial fibrillation; E11.65 Type 2 diabetes mellitus with hyperglycemia; I11.9 Hypertensive heart disease without heart failure; I44.30 Unspecified atrioventricular block; R07.89 Other chest pain; R18.8 Other ascites; G89.3 Neoplasm related pain (acute) (chronic); M10.9 Gout, unspecified; E66.01 Morbid (severe) obesity due to excess calories; Z68.41 Body mass index [BMI] 40.0-44.9, adult; Z79.4 Long term (current) use of insulin; Z79.891 Long term (current) use of opiate analgesic; Z79.82 Long term (current) use of aspirin; Z79.52 Long term (current) use of systemic steroids; Z79.899 Other long term (current) drug therapy
CPT/HCPCS: 36415; 71045; 71260; 74177; 80048; 80053; 80076; 81003; 81015; 82150; 82550; 82553; 82947; 83605; 83690; 84145; 84484; 85025; 85610; 85730; 87040; 87804; 93005; 94760; 96365; 96366; 96375; 99285; G0378; J0696; J1815; J1940; J2270; J2405; J2930; J7040; J7512; J7606; Q9967

== ENCOUNTER 2020-11-01 22:03 | Emergency (ER) | payer OTHER ==
--- OUTSIDE RECORDS SUMMARY | 2020-11-01 22:08 | XMS REPORT | Clinical Summary ---
:1960 Author Organization [facility] Address [address] [place] [address] Care Team Providers Name Role Phone Santiago, Adryan Kylie Primary Care Provider Allergies No Known Allergies Medications Medication Sig Dispensed Refills Start End Date Status Date tamsulosin Take 0.4 mg by 0 Acti ve (FLOMAX) 0.4 mg mouth daily. Cap 24 hr capsule glimepiride Take 4 mg by mouth 0 Active (AMARYL) 4 MG every morning tablet before breakfast. linaGLIPtin Take 5 mg by mouth 0 Active (TRADJENTA) 5 mg daily. Tab furosemide Take 2 tablets (40 30 tablet 0 Active (LASIX) 20 MG mg total) by mouth 0 tablet daily. metoprolol Take 1 tablet (25 60 tablet 11 08/22/20 A ctive succinate mg total) by mouth 0 21 (TOPROL-XL) 25 2 (two) times MG 24 hr tablet daily. morphine (MS Take 15 mg by 0 Act annabelle CONTIN) 15 MG 12 mouth 2 (two) hr tablet times daily . enoxaparin Inject 120 mg 0 Activ e (LOVENOX) 120 subcutaneously 2 mg/0.8 mL (two) times daily. SyrgIndications: deep venous thrombosis HYDROcodone-acet Take 1 tablet by 15 tablet 0 Active aminophen (NORCO mouth every 4 0 10-325) 10-325 (four) hours as mg per tablet needed for Pain. Max Daily Amount: 6 tablets amLODIPine Take 10 mg by 0 04/28/20 Disco ntinued (NORVASC) 10 MG mouth daily. 20 ( Stop Taking at tablet Discharge) metoprolol Take 1 tablet (25 120 tablet 0 04/28/20 Discontinued (LOPRESSOR) 25 mg total) by mouth 0 20 (Stop Taking at MG tablet 2 (two) times Discha rge) daily. senna-docusate Take 1 tablet by 30 tablet 11 10/26/19 (SENOKOT S) mouth nightly. 0 21 8.6-50 mg per tablet aspirin 81 MG EC Take 1 tablet (81 30 tablet 3 10/26 tablet mg total) by mouth 0 21 daily. sotalol AF Take 1 tablet (80 60 tablet 0 04/28/20 D iscontinued (BETAPACE AF) 80 mg total) by mouth 0 20 (Stop Taking at MG tablet 2 (two) times Discha rge) daily. traMADol Take 1 tablet (50 60 tablet 0 10/02/20 Di scontinued (ULTRAM) 50 mg mg total) by mouth 0 20 (Stop Taking at tablet every 6 (six) Discha rge) hours as needed. Max Daily Amount: 200 mg enoxaparin Inject 0.97 mLs 60 mL 3 04/27/20 Dis continued (LOVENOX) 150 (150 mg total) 0 20 mg/mL injection subcutaneously every 12 (twelve) hours for 90 days. enoxaparin Inject 0.97 mLs 58.2 mL 2 10/02/20 Dis continued (LOVENOX) 150 (150 mg total) 0 20 ( Stop Taking at mg/mL injection subcutaneously Discharge) every 12 (twelve) hours for 90 days. digoxin Take 1 tablet (125 90 tablet 0 04/28/20 D iscontinued (LANOXIN) 0.125 mcg total) by 0 20 MG tablet mouth daily. metoprolol Take 1 tablet (25 90 tablet 0 04/28/20 D iscontinued succinate mg total) by mouth 0 20 (TOPROL-XL) 25 daily. MG 24 hr tablet digoxin Take 1 tablet (125 30 tablet 2 07/27/20 E xpired (LANOXIN) 0.125 mcg total) by 0 20 MG tablet mouth daily for 90 days. metoprolol Take 2 tablets (50 60 tablet 2 07/27/20 succinate mg total) by mouth 0 20 (TOPROL-XL) 25 daily for 90 days. MG 24 hr tablet HYDROcodone-acet Take 1 tablet by 0 Discontinued aminophen (NORCO mouth every 6 20 (Reorder) 10-325) 10-325 (six) hours as mg per tablet needed for Pain . polyethylene Take 17 g by mouth 510 g 2 09/21/20 glycol daily for 30 days. 0 20 (GLYCOLAX) 17 gram packet gabapentin Take 1 capsule 42 capsule 0 10/16/19 Exp ired (NEURONTIN) 300 (300 mg total) by 0 21 MG capsule mouth 3 (three) times daily for 14 days. amoxicillin-clav Take 1 tablet by 10 tablet 0 ulanate mouth every 12 0 21 (AUGMENTIN) (twelve) hours for 875-125 mg per 5 days. 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, pleural 09/30/2020 biopsy 09/30/2020 Multiple subsegmental pulmonary emboli without acute c or pulmonale 04/23/2020 Colon adenocarcinoma 09/10/2018 Benign prostatic hyperplasia 07/16/2018 Diabetes mellitus 07/16/2018 Essential hypertension 07/16/2018 Descending colon CA s/p GI stent 07/15/18 07/16/2018 Large bowel obstruction 07/16/2018 Hypokalemia 07/16/2018 Morbid obesity 07/15/2018 Pneumonia 07/14/2018 History of gout 01/11/2018 Adrenal mass, left 01/18/2017 Resolved Problems Problem Noted Date Resolved Date Pleural effusion, right 09/30/2020 10/01/2020 Generalized abdominal pain 08/20/2020 10/01/2020 Acute chest pain 04/22/2020 10/01/2020 SOB (shortness of breath) 10/23/2019 10/01/2020 Recurrent pleural effusion on right 10/23/2019 12 Encounters Date Type Specialty Care Team Description 10/30/2020 Outside Orders Central Scheduling Stephanie Solitario MD malignant neopl asm of colon (HCC) (Primary Dx) 10/09/2020 Hospital Radiology [place], Rina Pleural effusi on Encounter Roberta 10/06/2020 Outside Orders Central Scheduling [place], Rina Pleura l effusion Roberta (Primary Dx) [facility] Ricardo 09/30/2020 Anesthesia Event Lenora Saldana MD Cohen, Joshua Bernard, MD 09/30/2020 [facility]ori n - Encounter MD Ricardo 10[facility]02[facility]2020 [facility] En[facility] MD Ricardo 09/29/2020 Hospital Pre-Admission Testing Encounter 09/29/2020 Travel 09/18/2020 Orders Only Cardiac Intensive Care Jaimson Rosemarypaul Lima Pre op testing (Primary Dx) 08/21/2020 Anesthesia Event Gastroenterology Chase Mason MD Ware, Chandra Ann, CRNA 08/21/2020 Surgery Gastroenterology Julius Umanzor SIGMOIDOS COPY,FLEX MD Ron W/STENT 08/20/2020 [facility] Karasek, Generalized abd ominal pain (Primary Dx); - Encounter MD Wojciech Colon adenocarcinoma (HCC); 08/22/2020 Clara Umanzor Essential hyper tension; MD Clark Large bowel obstruction (HCC); Alex, Multiple subseg mental pulmonary emboli without acute cor pulmonale (HCC); MD Samir Typical atrial flutter (HCC); SOB (shortness of breath) 08/20/2020 Travel 06/16/2020 Hospital Radiology Mary, Recurrent pleur al effusion on right; Encounter MD Kyle Colon adenocarc inoma (HCC) 06/16/2020 Clinic Visit Radiology Jr Hunt MD 06/05/2020 Hospital Computed Tomography Musher, Colon ca ncer Encounter MD Kyle metastasized to 1, [facility] multiple sites (HCC) [address] Room 06/05/2020 Hospital Computed Tomography Musher, Colon ca ncer Encounter MD Kyle metastasized to 1, [facility] multiple sites (HCC) [address] Room 05/26/2020 Orders Only Oncology Miguel Bennett Recurrent pleu ral effusion on right (Primary Dx); KAVEH Morris Colon adenocarc inoma (HCC) 05/12/2020 [facility] Musher, Colon cancer Encounter MD Kyle metastasized to multiple sites (HCC) 05/12/2020 Outside Orders Central Scheduling Musher, Colon c ney Wright MD metastasized to multiple sites (HCC) (Primary Dx) 04/22/2020 [facility] Brusatori, Acute chest lori n (Primary Dx); - Encounter Bijal Acute dyspnea; 04/28/2020 MD Lor Palpitations; Margarito Preston Multiple subse gmental pulmonary emboli without acute cor pulmonale (HCC); MD Caridad Acute massive pulmonary embolism (HCC); Lou, Cancer associat ed pain; MD Zhou Pleuritic chest pain; Siddhartha Leo, SOB (shortness of breath); Bandar Slow transit co nstipation; MD Ariadna Neoplastic (mal ignant) related fatigue; Palliative care by specialist; ACP (advance ca re planning); Acute pulmonary embolism without acute cor pulmonale, unspecified pulmonary embolism type (HCC); Colon adenocarc inoma (HCC); Typical atrial flutter (HCC); Essential hyper tension; Morbid obesity (HCC); Recurrent pleur al effusion on right 04/22/2020 Orders Only General Internal Medicine 04/22/2020 Travel 04/07/2020 [facility] Mushanahi, Malignant neopl asm of colon, unspecified part of colon (HCC); Encounter MD Kyle Pleural effusio n on right 03/27/2020 Outside Orders Central Scheduling Musher, Maligna nt neoplasm of colon, unspecified part of colon (HCC) (Primary Dx); MD Kyle Pleural effusio n on right 03/13/2020 Hospital Computed Tomography Musher, Colon ca ncer Encounter MD Kyle metastasized to 1, [facility] multiple sites (HCC) [address] Room 03/13/2020 Hospital Computed Tomography Musher, Colon ca ncer Encounter MD Kyle metastasized to 1, [facility] multiple sites (HCC) [facility] Room 02/19/2020 Outside Orders Central Scheduling Musher, Colon c ney Wright MD metastasized to multiple sites (HCC) (Primary Dx) 01/18/2020 [facility] Computed Tomography Musher, Colon ca ncer Encounter MD Kyle metastasized to 1, [facility] multiple sites (HCC) [facility] [address] Room 01/18/2020 Hospital Computed Tomography Karel Solitario MD metastasized to [address] [place] [address] multiple sites (HCC) [facility] Room 01/09/2020 Outside Orders Central Scheduling Karel Solitario MD metastasized to multiple sites (HCC) (Primary Dx) after 11/01/2019 Immunizations Name Administration Dates Next Due Influenza Four-QIV Non-PF 5+ YR 07/20/2018 Pneumococcal Conjugate (Prevnar) 13-Valent 07/20/2018 Family History Medical History Relation Name Comments Cancer Father Colon cancer at advanced age Relation Name Status Comments Father Mother Alive Social History Tobacco Use Types Packs/Day Years Used Date Former Smoker Quit: 2016 Smokeless Tobacco: Never Used Alcohol Use Drinks/Week oz/Week Comments Yes special occasion s Sex Assigned at Date Recorded Not on file Last Filed Vital Signs Vital Sign Reading Time Taken Comments Blood Pressure 111/56 10/02/2020 3:18 PM LABOR OPERATOR Pulse 101 10/02/2020 3:18 PM LABOR OPERATOR Temperature 37.4 C (99.3 F) 10/02/2020 3:18 PM LABOR OPERATOR Respiratory Rate 18 10/02/2020 3:18 PM LABOR OPERATOR Oxygen Saturation 100% 10/02/2020 3:18 PM LABOR OPERATOR Inhaled Oxygen Concentration 28% 04/26/2020 7:34 PM CDT Weight 117.8 kg (259 lb 11.2 oz) 10/02/2020 8:50 AM LABOR OPERATOR Height 180.3 cm (5' 11") 09/30/2020 5:41 AM LABOR OPERATOR Body Mass Index 36.22 09/30/2020 5:41 AM LABOR OPERATOR Plan of Treatment Date Type Specialty Care Team Description 11/04/2020 Appointment Computed Tomography Kailey Solitario MD [address] [address] 1, [facility] [address] Room 11/04/2020 Appointment Computed Tomography Kailey Solitario MD [address] [address] 1, [facility] [address] Room Health Maintenance Due Date Last Done Comments DTAP/TDAP/TD VACCINES (1 - Tdap) 12/12/1967 DIABETIC EYE EXAM 1970 DIABETIC FOOT EXAM 1970 HEPATITIS C SCREENING 1978 PNEUMOCOCCAL VACCINE 0-64 YRS (1 of 1 - 09/14/2018 07/20/20 18 PPSV23) URINE MICROALBUMIN 05/23/2020 05/23/2019 INFLUENZA VACCINE (#1) 2020 07/20/2018 DEPRESSION SCREENING (12+) 10/03/2020 HEMOGLOBIN A1C 10/25/2020 04/24/2020, 07/17/2018 LIPID PANEL 05/23/2022 05/23/2019 COLON CANCER SCREENING COLONOSCOPY 09/11/2028 09/11/2018, 1 Implants Implanted Type Area Math Instructor Device Shelf Model / Identifier Expiration Serial / Date Lot Stent Colonic Single [id number] - [id number] Stents-P N/A: BIPIN ON SCI:ENDO 06/27/2019 [id number] / Implanted: Qty: 1 on 07/15/2018 by Shiva Mejias MD at [facility] eriphera Colon / l [id number] Description:PLACED 07/15/18 Wallflex Colonic Stent [id number] [employer] C 10/25/2019 GTIN [id number] / Implanted: Qty: 1 on 09/11/2018 by Shiva Mejias MD at [facility] [id number] / [id number] Wallflex Colonic Tent [employer] 01/28/2021 [id number] / Implanted: Qty: 1 on 08/21/2020 by Julius Umanzor MD at [facility] / Procedures Procedure Name Priority Date/Time Associated Comments Diagnosis XR CHEST 2 VIEWS Routine 10/09/2020 7:51 Pleural effusion Res ults for this AM LABOR OPERATOR procedure are i n the results section. POCT-GLUCOSE METER Routine 10/02/2020 4:38 Resul ts for this PM LABOR OPERATOR procedure are i n the results section. POCT-GLUCOSE METER Routine 10/02/2020 1:11 Resul ts for this PM LABOR OPERATOR procedure are i n the results section. XR CHEST 1 VIEW Routine 10/02/2020 10:58 Results for this PORTABLE/BEDSIDE AM LABOR OPERATOR procedure a re in the results section. XR CHEST 1 VIEW Routine 10/02/2020 6:47 Results for this PORTABLE/BEDSIDE AM LABOR OPERATOR procedure a re in the results section. (CELLAVISION MANUAL Routine 10/02/2020 4:16 Resu lts for this DIFF) AM LABOR OPERATOR procedure are i n the results section. CBC W/PLT COUNT & Routine 10/02/2020 4:16 Result s for this AUTO DIFFERENTIAL AM LABOR OPERATOR procedure are in the results section. CBC W/PLT COUNT & Routine 10/02/2020 4:16 Result s for this AUTO DIFFERENTIAL AM LABOR OPERATOR procedure are in the results section. MAGNESIUM Routine 10/02/2020 4:16 Results for this AM LABOR OPERATOR procedure are i n the results section. BASIC METABOLIC PANEL Routine 10/02/2020 4:16 Re sults for this (7) AM LABOR OPERATOR procedure are i n the results section. PREPARE LEUKO-REDUCED STAT 10/01/2020 11:54 Re sults for this RBC PM LABOR OPERATOR procedure are i n the results section. POCT-GLUCOSE METER Routine 10/01/2020 11:22 Resul ts for this AM LABOR OPERATOR procedure are i n the results section. POCT-GLUCOSE METER Routine 10/01/2020 7:30 Resul ts for this AM LABOR OPERATOR procedure are i n the results section. (CELLAVISION MANUAL Routine 10/01/2020 4:04 Resu lts for this DIFF) AM LABOR OPERATOR procedure are i n the results section. CBC W/PLT COUNT & Routine 10/01/2020 4:04 Result s for this AUTO DIFFERENTIAL AM LABOR OPERATOR procedure are in the results section. CBC W/PLT COUNT & Routine 10/01/2020 4:04 Result s for this AUTO DIFFERENTIAL AM LABOR OPERATOR procedure are in the results section. MAGNESIUM Routine 10/01/2020 4:04 Results for this AM LABOR OPERATOR procedure are i n the results section. BASIC METABOLIC PANEL Routine 10/01/2020 4:04 Re sults for this (7) AM LABOR OPERATOR procedure are i n the results section. XR CHEST 1 VIEW Routine 10/01/2020 1:09 Results for this PORTABLE/BEDSIDE AM LABOR OPERATOR procedure a re in the results section. POCT-GLUCOSE METER Routine 09/30/2020 11:48 Resul ts for this PM LABOR OPERATOR procedure are i n the results section. CBC (HEMOGRAM ONLY) Timed 09/30/2020 10:58 Resu lts for this PM LABOR OPERATOR procedure are i n the results section. TRANSFUSE Routine 09/30/2020 9:37 LEUKO-REDUCED RED PM LABOR OPERATOR BLOOD CELLS MAGNESIUM STAT 09/30/2020 6:04 Results for this PM LABOR OPERATOR procedure are i n the results section. BASIC METABOLIC PANEL STAT 09/30/2020 6:04 Re sults for this (7) PM LABOR OPERATOR procedure are i n the results section. TROPONIN I STAT 09/30/2020 6:04 Results for this PM LABOR OPERATOR procedure are i n the results section. PREPARE LEUKO-REDUCED Routine 09/30/2020 5:58 Re sults for this RBC PM LABOR OPERATOR procedure are i n the results section. ECG 12-LEAD Routine 09/30/2020 5:14 Results for this PM LABOR OPERATOR procedure are i n the results section. ECG 12-LEAD Routine 09/30/2020 5:14 PM LABOR OPERATOR Procedure Note - Interface, External Ris In - 09/30/2020 5:15 PM LABOR OPERATOR Ventricular Rate 113 BPM Atrial Rate 113 BPM P-R Interval 178 ms QRS Duration 70 ms Q-T Interval 340 ms QTC Calculation(Bazett) 466 ms P [place] 49 degrees R [place] 15 degrees T [place] 59 degrees Sinus tachycardia Nonspecific T wave abnormali ty Abnormal ECG When compared with ECG of 17:13, Premature atrial complexes a re no longer Present ECG 12-LEAD Routine 09/30/2020 5:13 PM LABOR OPERATOR Resu lts for this procedure are in the results section . ECG 12-LEAD Routine 09/30/2020 5:13 PM LABOR OPERATOR Procedure Note - Interface, External Ris In - 09/30/2020 5:15 PM LABOR OPERATOR Ventricular Rate 103 BPM Atrial Rate 103 BPM P-R Interval 154 ms QRS Duration 72 ms Q-T Interval 304 ms QTC Calculation(Bazett) 398 ms P [place] 45 degrees R [place] 17 degrees T [place] 68 degrees Sinus tachycardia with [place] ture atrial complexes Nonspecific T wave abnormali ty Abnormal ECG When compared with ECG of 12:53, Premature atrial complexes a re now Present Nonspecific T wave abnormali ty, worse in Anterolateral leads QT has shortened POCT-GLUCOSE METER Routine 09/30/2020 4:34 Resul ts for PM LABOR OPERATOR this procedure are in the results section. HEMOGLOBIN AND Routine 09/30/2020 4:31 Results f or HEMATOCRIT PM LABOR OPERATOR this procedure are in the results section. POCT-GLUCOSE METER Routine 09/30/2020 1:51 Resul ts for PM LABOR OPERATOR this procedure are in the results section. HGB/HCT (H&H) - STAT Routine 09/30/2020 11:57 Res ults for LAB AM LABOR OPERATOR this procedure are in the results section. CT CHEST WITHOUT IV STAT 09/30/2020 11:11 Resu lts for CONTRAST AM LABOR OPERATOR this procedure are in the results section. XR CHEST 1 VIEW Routine 09/30/2020 10:30 Results for PORTABLE/BEDSIDE AM LABOR OPERATOR this proced ure are in the results section. CALCIUM, IONIZED STAT 09/30/2020 10:15 Results for AM LABOR OPERATOR this procedure are in the results section. PT/APTT STAT 09/30/2020 10:15 Results for AM LABOR OPERATOR this procedure are in the results section. MAGNESIUM STAT 09/30/2020 10:15 Results for AM LABOR OPERATOR this procedure are in the results section. PHOSPHORUS STAT 09/30/2020 10:15 Results for AM LABOR OPERATOR this procedure are in the results section. BASIC METABOLIC PANEL STAT 09/30/2020 10:15 Re sults for (7) AM LABOR OPERATOR this procedure are in the results section. CBC (HEMOGRAM ONLY) STAT 09/30/2020 10:15 Resu lts for AM LABOR OPERATOR this procedure are in the results section. HEMOGLOBIN AND STAT 09/30/2020 10:15 Results f or HEMATOCRIT AM LABOR OPERATOR this procedure are in the results section. POTASSIUM STAT 09/30/2020 10:15 Results for AM LABOR OPERATOR this procedure are in the results section. GLUCOSE STAT 09/30/2020 10:15 Results for AM LABOR OPERATOR this procedure are in the results section. TISSUE EXAM AP Routine 09/30/2020 9:05 Results for AM LABOR OPERATOR this procedure are in the results section. HGB/HCT (H&H) - STAT STAT 09/30/2020 8:59 Res ults for LAB AM LABOR OPERATOR this procedure are in the results section. GLUCOSE-STAT LAB STAT 09/30/2020 8:59 Results for AM LABOR OPERATOR this procedure are in the results section. POCT-GLUCOSE METER Routine 09/30/2020 7:26 Resul ts for AM LABOR OPERATOR this procedure are in the results section. THORACOSCOPY (VATS) 09/30/2020 7:09 Pleural effusion AM LABOR OPERATOR BRONCHOSCOPY 09/30/2020 7:09 Pleural effusion AM LABOR OPERATOR POCT-GLUCOSE METER Routine 09/30/2020 5:42 Resul ts for AM LABOR OPERATOR this procedure are in the results section. XR CHEST 2 VIEWS Routine 09/29/2020 12:19 Results for PM LABOR OPERATOR this procedure are in the results section. TYPE AND SCREEN, Routine 09/29/2020 11:52 Results for AUTOMATED AM LABOR OPERATOR this procedure are in the results section. SARS-COV2/RT-PCR Routine 09/29/2020 11:47 Preop testing Result s for ([facility]) AM LABOR OPERATOR this proce dure are in the results section. POCT-GLUCOSE METER Routine 08/22/2020 9:17 Resul ts for AM LABOR OPERATOR this procedure are in the results section. CBC W/PLT COUNT & Routine 08/22/2020 6:22 Result s for AUTO DIFFERENTIAL AM LABOR OPERATOR this proce dure are in the results section. BASIC METABOLIC PANEL Routine 08/22/2020 6:22 Re sults for (7) AM LABOR OPERATOR this procedure are in the results section. CBC W/PLT COUNT & Routine 08/22/2020 6:22 Result s for AUTO DIFFERENTIAL AM LABOR OPERATOR this proce dure are in the results section. POCT-GLUCOSE METER Routine 08/21/2020 9:18 Resul ts for PM LABOR OPERATOR this procedure are in the results section. POCT-GLUCOSE METER Routine 08/21/2020 3:26 Resul ts for PM LABOR OPERATOR this procedure are in the results section. REPORT OF PROCEDURE - 08/21/2020 2:17 ENDOSCOPY URL PM LABOR OPERATOR FL FLUORO Routine 08/21/2020 1:55 Results for NON-SPECIFIC UP TO 1 PM LABOR OPERATOR this pr ocedure HOUR are in the results section. PROCEDURE W/ C-ARM 08/21/2020 12:55 Colonic obstructio n PM LABOR OPERATOR (HCC) SIGMOIDOSCOPY,FLEX 08/21/2020 12:55 Colonic obstructio n W/STENT PM LABOR OPERATOR (HCC) POCT-GLUCOSE METER Routine 08/21/2020 7:29 Resul ts for AM LABOR OPERATOR this procedure are in the results section. CBC W/PLT COUNT & Routine 08/21/2020 5:31 Result s for AUTO DIFFERENTIAL AM LABOR OPERATOR this proce dure are in the results section. CBC W/PLT COUNT & Routine 08/21/2020 5:31 Result s for AUTO DIFFERENTIAL AM LABOR OPERATOR this proce dure are in the results section. BASIC METABOLIC PANEL Routine 08/21/2020 5:31 Re sults for (7) AM LABOR OPERATOR this procedure are in the results section. ECG 12-LEAD Routine 08/20/2020 12:53 Results for PM LABOR OPERATOR this procedure are in the results section. SARS-COV2/RT-PCR Routine 08/20/2020 12:41 Results for ([facility]) PM LABOR OPERATOR this proce dure are in the results section. CT ABDOMEN/PELVIS STAT 08/20/2020 11:53 Result s for WITH IV CONTRAST AM LABOR OPERATOR this proced ure are in the results section. CBC W/PLT COUNT & STAT 08/20/2020 10:07 Result s for AUTO DIFFERENTIAL AM LABOR OPERATOR this proce dure are in the results section. TROPONIN I STAT 08/20/2020 10:07 Results for AM LABOR OPERATOR this procedure are in the results section. URINALYSIS W/ REFLEX Routine 08/20/2020 10:07 Res ults for URINE CULTURE AM LABOR OPERATOR this procedure are in the results section. LACTIC ACID, VENOUS STAT 08/20/2020 10:07 Resu lts for AM LABOR OPERATOR this procedure are in the results section. LIPASE STAT 08/20/2020 10:07 Results for AM LABOR OPERATOR this procedure are in the results section. COMPREHENSIVE STAT 08/20/2020 10:07 Results fo r METABOLIC PANEL AM LABOR OPERATOR this procedu re are in the results section. CBC W/PLT COUNT & STAT 08/20/2020 10:07 Result s for AUTO DIFFERENTIAL AM LABOR OPERATOR this proce dure are in the results section. ED ECG INTERPRETATION Routine 08/20/2020 9:50 Re sults for AM LABOR OPERATOR this procedure are in the results section. ECG 12-LEAD Routine 08/20/2020 9:44 Results for AM LABOR OPERATOR this procedure are in the results section. REPORT OF PROCEDURE - 08/20/2020 Result s for ENDOSCOPY SCAN this procedur e are in the results section. REPORT OF PROCEDURE - 08/20/2020 Result s for ENDOSCOPY SCAN this procedur e are in the results section. XR CHEST 1 VIEW PRISCILLA 06/16/2020 11:23 Results for PORTABLE/BEDSIDE AM CDT this proced ure are in the results section. IR REMOVAL INDWELLING Routine 06/16/2020 9:30 Recurrent pleur al Results for TUNNELED PLEURAL CATH AM CDT effusion o n right this procedure W/CUFF Colon adenocarcinoma are in the (HCC) results section. CBC W/PLT COUNT & Routine 06/16/2020 8:25 Result s for AUTO DIFFERENTIAL AM CDT this proce dure are in the results section. PROTHROMBIN TIME/INR Routine 06/16/2020 8:25 Res ults for AM CDT this procedure are in the results section. APTT Routine 06/16/2020 8:25 Results for AM CDT this procedure are in the results section. CBC W/PLT COUNT & Routine 06/16/2020 8:25 Result s for AUTO DIFFERENTIAL AM CDT this proce dure are in the results section. CT ABDOMEN/PELVIS Routine 06/05/2020 9:25 Colon cancer Result s for WITH IV CONTRAST AM CDT metastasized to this pro cedure multiple sites (HCC) are in the results section. CT CHEST WITH IV Routine 06/05/2020 9:25 Colon cancer Results for CONTRAST AM CDT metastasized to this procedu re multiple sites (HCC) are in the results section. XR CHEST 2 VIEWS Routine 05/12/2020 1:29 Colon cancer Results for PM CDT metastasized to this procedu re multiple sites (HCC) are in the results section. RHYTHM STRIP - SCAN 04/29/2020 2:02 PM CDT POCT-GLUCOSE METER Routine 04/28/2020 11:11 Resul ts for AM CDT this procedure are in the results section. POCT-GLUCOSE METER Routine 04/28/2020 9:01 Resul ts for AM CDT this procedure are in the results section. BASIC METABOLIC PANEL Routine 04/28/2020 5:15 Re sults for (7) AM CDT this procedure are in the results section. CBC (HEMOGRAM ONLY) Routine 04/28/2020 5:15 Resu lts for AM CDT this procedure are in the results section. PHOSPHORUS Routine 04/28/2020 5:15 Results for AM CDT this procedure are in the results section. MAGNESIUM Routine 04/28/2020 5:15 Results for AM CDT this procedure are in the results section. POCT-GLUCOSE METER Routine 04/27/2020 9:30 Resul ts for PM CDT this procedure are in the results section. POCT-GLUCOSE METER Routine 04/27/2020 4:55 Resul ts for PM CDT this procedure are in the results section. POCT-GLUCOSE METER Routine 04/27/2020 11:05 Resul ts for AM CDT this procedure are in the results section. POCT-GLUCOSE METER Routine 04/27/2020 7:49 Resul ts for AM CDT this procedure are in the results section. BASIC METABOLIC PANEL Add-On 04/27/2020 6:44 Re sults for (7) AM CDT this procedure are in the results section. PHOSPHORUS Routine 04/27/2020 6:44 Results for AM CDT this procedure are in the results section. MAGNESIUM Routine 04/27/2020 6:44 Results for AM CDT this procedure are in the results section. POCT-GLUCOSE METER Routine 04/26/2020 9:10 Resul ts for PM CDT this procedure are in the results section. POCT-GLUCOSE METER Routine 04/26/2020 6:00 Resul ts for PM CDT this procedure are in the results section. POCT-GLUCOSE METER Routine 04/26/2020 12:48 Resul ts for PM CDT this procedure are in the results section. POCT-GLUCOSE METER Routine 04/26/2020 8:37 Resul ts for AM CDT this procedure are in the results section. DIGOXIN LEVEL Routine 04/26/2020 6:02 Results fo r AM CDT this procedure are in the results section. PHOSPHORUS Routine 04/26/2020 6:02 Results for AM CDT this procedure are in the results section. MAGNESIUM Routine 04/26/2020 6:02 Results for AM CDT this procedure are in the results section. POCT-GLUCOSE METER Routine 04/25/2020 10:12 Resul ts for PM CDT this procedure are in the results section. POCT-GLUCOSE METER Routine 04/25/2020 4:03 Resul ts for PM CDT this procedure are in the results section. POCT-GLUCOSE METER Routine 04/25/2020 12:35 Resul ts for PM CDT this procedure are in the results section. HEPARIN ASSAY - LOW Routine 04/25/2020 10:00 Resu lts for MOLECULAR WEIGHT AM CDT this proced ure are in the results section. POCT-GLUCOSE METER Routine 04/25/2020 8:42 Resul ts for AM CDT this procedure are in the results section. POCT-GLUCOSE METER Routine 04/25/2020 5:24 Resul ts for AM CDT this procedure are in the results section. CBC W/PLT COUNT & Routine 04/25/2020 5:02 Result s for AUTO DIFFERENTIAL AM CDT this proce dure are in the results section. PHOSPHORUS Routine 04/25/2020 5:02 Results for AM CDT this procedure are in the results section. MAGNESIUM Routine 04/25/2020 5:02 Results for AM CDT this procedure are in the results section. CBC W/PLT COUNT & Routine 04/25/2020 5:02 Result s for AUTO DIFFERENTIAL AM CDT this proce dure are in the results section. BASIC METABOLIC PANEL Routine 04/25/2020 5:02 Re sults for (7) AM CDT this procedure are in the results section. POCT-GLUCOSE METER Routine 04/24/2020 11:26 Resul ts for PM CDT this procedure are in the results section. POCT-GLUCOSE METER Routine 04/24/2020 11:00 Resul ts for AM CDT this procedure are in the results section. POCT-GLUCOSE METER Routine 04/24/2020 5:52 Resul ts for AM CDT this procedure are in the results section. CBC W/PLT COUNT & Routine 04/24/2020 3:21 Result s for AUTO DIFFERENTIAL AM CDT this proce dure are in the results section. HEMOGLOBIN A1C Routine 04/24/2020 3:21 Results f or AM CDT this procedure are in the results section. TSH/FREE T4 IF Routine 04/24/2020 3:21 Results f or INDICATED AM CDT this procedure are in the results section. PHOSPHORUS Routine 04/24/2020 3:21 Results for AM CDT this procedure are in the results section. MAGNESIUM Routine 04/24/2020 3:21 Results for AM CDT this procedure are in the results section. CBC W/PLT COUNT & Routine 04/24/2020 3:21 Result s for AUTO DIFFERENTIAL AM CDT this proce dure are in the results section. BASIC METABOLIC PANEL Routine 04/24/2020 3:21 Re sults for (7) AM CDT this procedure are in the results section. POCT-GLUCOSE METER Routine 04/24/2020 2:15 Resul ts for AM CDT this procedure are in the results section. TROPONIN I Routine 04/23/2020 8:21 Results for PM CDT this procedure are in the results section. B-TYPE NATRIURETIC Routine 04/23/2020 8:21 Resul ts for FACTOR (BNP) PM CDT this procedure are in the results section. HEPATIC FUNCTION Routine 04/23/2020 8:21 Results for PANEL PM CDT this procedure are in the results section. ECG 12-LEAD Routine 04/23/2020 6:52 Results for PM CDT this procedure are in the results section. ECG 12-LEAD Routine 04/23/2020 6:52 PM CDT Procedure Note - Interface, External Ris In - 04/29/2020 2:19 PM CDT Ventricular Rate 112 BPM Atrial Rate 242 BPM QRS Duration 90 ms Q-T Interval 376 ms QTC Calculation(Bazett) 513 ms R [place] 25 degrees T [place] 84 degrees Atrial flutter with variable A-V block ST elevation consider latera l injury or acute infarct * ACUTE AR * Abnormal ECG When compared with ECG of 18:49, Atrial flutter has replaced Atrial fibrillation Criteria for Inferior infarc t are no longer Present ST elevation now present in Inferior leads ECG 12-LEAD Routine 04/23/2020 6:49 PM CDT Procedure Note - Interface, External Ris In - 04/29/2020 2:18 PM CDT Ventricular Rate 109 BPM Atrial Rate 120 BPM QRS Duration 84 ms Q-T Interval 366 ms QTC Calculation(Bazett) 492 ms R [place] -30 degrees T [place] -28 degrees Poor data quality, interp retation may be adversely affected Atrial fibrillation with rap id ventricular response Left axis deviation Inferior infarct , age undet ermined Lateral injury pattern * ACUTE AR * Abnormal ECG When compared with ECG of 18:25, Significant changes have occ urred POCT-GLUCOSE METER Routine 04/23/2020 4:52 PM Re sults for this CDT procedure are i n the results section . PT/APTT STAT 04/23/2020 10:37 AM Results for this CDT procedure are i n the results section . PROCALCITONIN Routine 04/23/2020 9:17 AM Results for this CDT procedure are i n the results section . POCT-GLUCOSE METER Routine 04/23/2020 9:15 AM Re sults for this CDT procedure are i n the results section . APTT STAT 04/23/2020 5:05 AM Results for this CDT procedure are i n the results section . CBC W/PLT COUNT & AUTO Routine 04/23/2020 5:04 AM Results for this DIFFERENTIAL CDT procedure are i n the results section . PHOSPHORUS Routine 04/23/2020 5:04 AM Results for this CDT procedure are i n the results section . MAGNESIUM Routine 04/23/2020 5:04 AM Results for this CDT procedure are i n the results section . CBC W/PLT COUNT & AUTO Routine 04/23/2020 5:04 AM Results for this DIFFERENTIAL CDT procedure are i n the results section . BASIC METABOLIC PANEL Routine 04/23/2020 5:04 AM Results for this (7) CDT procedure are i n the results section . 2D ECHO W/ DOPPLER STAT(After Hours 04/23/2020 2:09 AM Results for this (CW/PW/COLOR) Page Staff) CDT procedure are in the results section . BLOOD GAS, ARTERIAL STAT 04/23/2020 1:01 AM R esults for this CDT procedure are i n the results section . APTT STAT 04/22/2020 10:32 PM Results for this CDT procedure are i n the results section . LACTIC ACID, VENOUS STAT 04/22/2020 10:32 PM R esults for this CDT procedure are i n the results section . CBC (HEMOGRAM ONLY) STAT 04/22/2020 10:31 PM R esults for this CDT procedure are i n the results section . TROPONIN I STAT 04/22/2020 10:31 PM Results for this CDT procedure are i n the results section . BLOOD CULTURE STAT 04/22/2020 10:31 PM Results for this CDT procedure are i n the results section . BLOOD CULTURE STAT 04/22/2020 10:31 PM Results for this CDT procedure are i n the results section . CT CHEST PE TEST DESIGN STAT 04/22/2020 9:42 PM Results for this CDT procedure are i n the results section . VENOUS DOPPLER LEGS STAT 04/22/2020 9:07 PM R esults for this BILATERAL CDT procedure are i n the results section . CRITICAL CARE Routine 04/22/2020 8:42 PM Results for this CDT procedure are i n the results section . SARS-COV2/RT-PCR ([facility] & STAT 04/22/2020 8:41 PM Results for this REF LABS) CDT procedure are i n the results section . CBC W/PLT COUNT & AUTO STAT 04/22/2020 7:37 PM Results for this DIFFERENTIAL CDT procedure are i n the results section . TROPONIN I STAT 04/22/2020 7:37 PM Results for this CDT procedure are i n the results section . B-TYPE NATRIURETIC STAT 04/22/2020 7:37 PM Re sults for this FACTOR (BNP) CDT procedure are i n the results section . PT/APTT STAT 04/22/2020 7:37 PM Results for this CDT procedure are i n the results section . LACTIC ACID, VENOUS STAT 04/22/2020 7:37 PM R esults for this CDT procedure are i n the results section . BASIC METABOLIC PANEL STAT 04/22/2020 7:37 PM Results for this (7) CDT procedure are i n the results section . CBC W/PLT COUNT & AUTO STAT 04/22/2020 7:37 PM Results for this DIFFERENTIAL CDT procedure are i n the results section . D-DIMER STAT 04/22/2020 7:37 PM Results for this CDT procedure are i n the results section . XR CHEST 1 VIEW STAT 04/22/2020 7:16 PM Resul ts for this PORTABLE/BEDSIDE CDT procedure a re in the results section . ECG 12-LEAD Routine 04/22/2020 6:25 PM CDT Procedure Note - Interface, External Ris In - 05/16/2020 12:17 PM CDT Ventricular Rate 129 BPM Atrial Rate 129 BPM P-R Interval 162 ms QRS Duration 74 ms Q-T Interval 362 ms QTC Calculation(Bazett) 530 ms P [place] 75 degrees R [place] 44 degrees T [place] 126 degrees Sinus tachycardia T wave abnormality, consider lateral ischemia Abnormal ECG When compared with ECG of 10:11, Sinus rhythm has replaced At rial flutter T wave inversion more eviden t in Lateral leads ECG 12-LEAD Routine 04/22/2020 6:25 PM CDT Procedure Note - Interface, External Ris In - 04/28/2020 5:08 PM CDT Ventricular Rate 129 BPM Atrial Rate 129 BPM P-R Interval 162 ms QRS Duration 74 ms Q-T Interval 362 ms QTC Calculation(Bazett) 530 ms P [place] 75 degrees R [place] 44 degrees T [place] 126 degrees Sinus tachycardia T wave abnormality, consider lateral ischemia Abnormal ECG When compared with ECG of 10:11, Sinus rhythm has replaced At rial flutter T wave inversion more eviden t in Lateral leads ECG 12-LEAD STAT 04/22/2020 6:25 Results for this PM CDT procedure are i n the results section. IR TUNNELED CATH Routine 04/07/2020 10:06 Results for this INTRAPERITONEAL AM CDT procedure ar e in the results section. CBC W/PLT COUNT & AUTO Routine 04/07/2020 6:43 R esults for this DIFFERENTIAL AM CDT procedure are i n the results section. APTT Routine 04/07/2020 6:43 Results for this AM CDT procedure are i n the results section. PROTHROMBIN TIME/INR Routine 04/07/2020 6:43 Res ults for this AM CDT procedure are i n the results section. CBC W/PLT COUNT & AUTO Routine 04/07/2020 6:43 R esults for this DIFFERENTIAL AM CDT procedure are i n the results section. CT CHEST WITH IV Routine 03/13/2020 7:23 Colon cancer Results for this CONTRAST AM CDT metastasized to procedure ar e in multiple sites (HCC) the res ults section. CT ABDOMEN/PELVIS WITH Routine 03/13/2020 7:23 Colon cancer R esults for this IV CONTRAST AM CDT metastasized to procedure ar e in multiple sites (HCC) the res ults section. CT ABDOMEN/PELVIS WITH Routine 01/18/2020 8:20 Colon cancer R esults for this IV CONTRAST AM CDT metastasized to procedure ar e in multiple sites (HCC) the res ults section. CT CHEST WITH IV Routine 01/18/2020 8:20 Colon cancer Results for this CONTRAST AM CDT metastasized to procedure ar e in multiple sites (HCC) the res ults section. POCT-CREATININE Routine 01/18/2020 7:59 Results for this AM CDT procedure are i n the results section. after 11/01/2019 Results XR Chest 2 Views (10/09/2020 7:51 AM LABOR OPERATOR)Only the most recent of3 resultswithin the time period is included. Specimen Narrative Performed At FINAL REPORT [facility] EXAMINATION: RAD, CHEST, 2 VIEWS INDICATION: Pleural effusion COMPARISON: 10/02/2020 FINDINGS: TUBES and LINES: Right anterior chest port catheter looped over the right upper chest with distal tip over t he low superior vena cava. LUNGS: Likely scarring/atelectasis at the right lung base with moderate size right pleural effusion. Sl ight improved aeration of the right lung when compared with the prior exam. The left lung is clear. PLEURA: No pneumothorax HEART AND MEDIASTINUM: The cardiomedia stinal silhouette is partially obscured. BONES AND SOFT TISSUES: No acute osseo us lesion. Soft tissues are unremarkable. UPPER ABDOMEN: No free air under the johnny phragm. IMPRESSION: Likely scarring/atelectasis at the right lung base with moderate size right pleural effusion. Slight improved aeration of the right lung when compared with the prior exam. The l eft lung is clear. Signed: Starr Bailey MD Report Verified Date/Time: 10/09/2020 09:28:01 Reading Location: [facility] Reading Amisha m 1 - B01.627 Electronically signed by: STARR miller 10/09/2020 09:28 AM Procedure Note Interface, External Ris In - 10/09/2020 9:30 AM LABOR OPERATOR FINAL REPORT EXAMINATION: RAD, CHEST, 2 VIEWS INDICATION: Pleural effusion COMPARISON: 10/02/2020 FINDINGS: TUBES and LINES: Right anterior chest p ort catheter looped over the right upper chest with distal tip over t he low superior vena cava. LUNGS: Likely scarring/atelectasis at t he right lung base with moderate size right pleural effusion. Sl ight improved aeration of the right lung when compared with the prior exam. The left lung is clear. PLEURA: No pneumothorax HEART AND MEDIASTINUM: The cardiomedias tinal silhouette is partially obscured. BONES AND SOFT TISSUES: No acute osseou s lesion. Soft tissues are unremarkable. UPPER ABDOMEN: No free air under the johnny phragm. IMPRESSION: Likely scarring/atelectasis at the right lung base with moderate size right pleural effusion. Slight improved aeration of the right lung when compared with the prior exam. The l eft lung is clear. Signed: Starr Bailey MD Report Verified Date/Time: 10/09/2020 0 9:28:01 Reading Location: [facility] Reading Amisha m 1 - B01.627 Performing Organization Address City/State/Zipcode Phone Number [facility] POC-Glucose meter (10/02/2020 4:38 PM LABOR OPERATOR)Only the most recent of34 results within the time period is included. [facility] POC-Glucose Meter 110 70 - 110 mg/dL [facility] Comment: [facility] : TESTED AT [address], [address] CENTER : Dehydrogenation Operator Head/Route Salesman And Driver ID = [id number] for JOSE ALBERTO WITT Specimen Blood Performing Organization Address City/[facility]/Zipcode Phone Number [address] [address] CENTER XR chest 1 view portable / bedside (10/02/2020 10:58 AM LABOR OPERATOR)Only the most recent of6 resultswithin the time period is included. Specimen Narrative Performed At FINAL REPORT RIS CLINICAL HISTORY: s/p ChT removal TECHNIQUE: 1 view of the chest. COMPARISON: 10/02/2020 IMPRESSION: The right central line is unchanged. The right lower chest tube has been removed without pneumothorax. Right hemithorax pleural parenchymal opacities are similar appear ing. The left lung remains relatively well-aerated. The cardiomedia stinal silhouette is magnified by technique. Signed: Radha Argueta MD Report Verified Date/Time: 10/02/2020 12:26:12 Reading Location: [employer] [facility] Reading Room Procedure Note Interface, External Ris In - 10/02/2020 12:28 PM LABOR OPERATOR FINAL REPORT CLINICAL HISTORY: s/p ChT removal TECHNIQUE: 1 view of the chest. COMPARISON: 10/02/2020 IMPRESSION: The right central line is unchanged. The right lower chest tube has been removed without pneumothorax. Right hemithorax pleural parenchymal opacities are similar appear ing. The left lung remains relatively well-aerated. The cardiomedia stinal silhouette is magnified by technique. Signed: Radha Argueta MD Report Verified Date/Time: 10/02/2020 1 2:26:12 Reading Location: [facility] [facility] Reading Room Performing Organization Address City/State/Zipcode Phone Number RIS Manual Differential (10/02/2020 4:16 AM LABOR OPERATOR)Only the most recent of2 results within the time period is included. Pathologist Sig nature % Neutros 72 % [facility] % Lymphs 8 % [facility] % Monos 8 % [facility] % Eos 7 % [facility] % Baso 2 % [facility] % Atypical Lymphs 2 (H) 0 - 0 % [facility] # Neutros 7.63 (H) 1.78 - 5.38 K/ul [facility] # Lymphs 0.85 (L) 1.32 - 3.57 K/ul [facility] # Monos 0.85 (H) 0.30 - 0.82 K/uL [facility] # Eos 0.74 (H) 0.04 - 0.54 K/uL [facility] # Baso 0.21 (H) 0.01 - 0.08 K/uL [facility] # Atypical Lymphs 0.21 (H) 0.00 - 0.00 K/uL [facility] Total Counted 100 [facility] WBC Morphology Normal [facility] Giant Platelet Present [facility] Large Platelet Present [facility] Polychromasia 1+ few [facility] Hypochromia 1+ few [facility] Poikilocytes 1+ few [facility] Spherocytes 1+ few [facility] Ovalocytes 1+ few [facility] Tear Drop Cells 1+ few [facility] Artifact Present [facility] Platelet Conc Adequate [facility] Specimen Blood Narrative Performed At Dehydrogenation Operator Head DARYN - Jessenia Mendoza [facility] User comments: Slide comments: WBC: SEGMENTED WITH TOXIC GRANULATIONS PRESENT Performing Organization Address City/State/Zipcode Phone Number [facility] [address] [place] [address] CENTER CBC with platelet count + automated diff (10/02/2020 4:16 AM LABOR OPERATOR)Only the most recent of11 resultswithin the time period is included. Pathologist Sig nature WBC 10.6 (H) 3.5 - 10.5 K/L [facility] RBC 2.98 (L) 4.63 - 6.08 M/L [facility] Hemoglobin 7.2 (L) 13.7 - 17.5 GM/DL [facility] Hematocrit 25.3 (L) 40.1 - 51.0 % [facility] MCV 84.9 79.0 - 92.2 fL [facility] MCH 24.2 (L) 25.7 - 32.2 pg [facility] MCHC 28.5 (L) 32.3 - 36.5 GM/DL [facility] RDW 18.7 (H) 11.6 - 14.4 % [facility] Platelets 332 150 - 450 K/CU MM [facility] MPV 9.8 9.4 - 12.4 fL [facility] nRBC 0 0 - 0 /100 WBC [facility] Specimen Blood Performing Organization Address City/State/Zipcode Phone Number [address] [address] CENTER Magnesium (10/02/2020 4:16 AM LABOR OPERATOR)Only the most recent of10 resultswithin the time period is included. Pathologist Sig nature Magnesium 2.2 1.6 - 2.6 mg/dL [facility] Specimen Blood Narrative Performed At Dehydrogenation Operator Head ID - ARGENIS M [facility] Performing Organization Address City/State/Zipcode Phone Number [address] [address] CENTER Basic Metabolic Panel (10/02/2020 4:16 AM LABOR OPERATOR)Only the most recent of12 results within the time period is included. Sodium 139 136 - 145 meq/L [facility] Potassium 4.2 3.5 - 5.1 meq/L [facility] Chloride 104 98 - 107 meq/L [facility] CO2 27 22 - 29 meq/L [facility] BUN 8 7 - 21 mg/dL [facility] Creatinine 0.64 0.57 - 1.25 [facility] mg/dL [facility] Glucose 107 (H) 70 - 105 mg/dL [facility] Calcium 8.2 (L) 8.4 - 10.2 [facility] mg/dL [facility] EGFR 155Comment: mL/min/1.73 sq [facility] ESTIMATED GFR IS NOT [facility] ACCURATE CENTER CREATININE CLEARANCE IN PREDICTING GLOMERULAR FILTRATION RATE. ESTIMATED GFR IS NOT APPLICABLE FOR DIALYSIS PATIENTS. Specimen Blood Narrative Performed At Dehydrogenation Operator Head ID - ARGENIS Irish [facility]ENTER Performing Organization Address City/[facility] Centercode Phone Number [facility] [address] [place] [address] CENTER Prepare Leuko-Red RBC (10/01/2020 11:54 PM LABOR OPERATOR)Only the most recent of2 results within the time period is included. Pathologist Sig nature CROSSMATCH COMPATIBLE SAFETRACE TX Unit ABO A Pos SAFETRACE TX UNIT NUMBER [id number] SAFETRACE TX Status TX_TIMEINCHART SAFETRACE TX Blood Bank Product RED BLOOD CELLS SAFETRACE TX PRODUCT CODE [id number] SAFETRACE TX CROSSMATCH COMPATIBLE SAFETRACE TX Unit ABO A Pos SAFETRACE TX UNIT NUMBER [id number] SAFETRACE TX Status RETURNED FROM ISSUE SAFETRACE TX Blood Bank Product RED BLOOD CELLS SAFETRACE TX PRODUCT CODE [id number] SAFETRACE TX Specimen Other Performing Organization Address City/[facility] Centercode Phone Number SAFETRACE TX CBC (Hemogram only) (09/30/2020 10:58 PM LABOR OPERATOR)Only the most recent of4 results within the time period is included. Pathologist Sig idris WBC 12.7 (H) 3.5 - 10.5 K/L [facility] RBC 3.35 (L) 4.63 - 6.08 M/L [facility] Hemoglobin 8.0 (L) 13.7 - 17.5 GM/DL [facility] Hematocrit 28.4 (L) 40.1 - 51.0 % [facility] MCV 84.8 79.0 - 92.2 fL [facility] MCH 23.9 (L) 25.7 - 32.2 pg [facility] MCHC 28.2 (L) 32.3 - 36.5 GM/DL [facility] RDW 18.7 (H) 11.6 - 14.4 % [facility] Platelets 325 150 - 450 K/CU MM [facility] MPV 10.2 9.4 - 12.4 fL [facility] nRBC 0 0 - 0 /100 WBC [facility] Specimen Blood Performing Organization Address City/State/[facility] Phone Number [facility] [address] [place] [address] CENTER Transfuse Leuko-Red RBC (09/30/2020 9:37 PM LABOR OPERATOR)Troponin I (09/30/2020 6:04 PM LABOR OPERATOR)Only the most recent of5 resultswithin the time period is included. Pathologist Sig nature Troponin I <0.01 0.00 - 0.03 ng/mL [facility] Specimen Blood Narrative Performed At Troponin I (TnI) levels must be interpreted [facility] in the context of the presenting symptoms and the clinical findings. Elevated TnI levels indicate myocardial damage, but are not specific for ischemic heart disease. Elevated TnI levels are seen in patients with other cardiac conditions (including myocarditis and congestive heart failure), and slight TnI elevations occur in patients with other conditions, including sepsis, renal failure, acidosis, acute neurological disease, and persistent tachyarrhythmia. Dehydrogenation Operator Head ID - BS Performing Organization Address City/State/Zipcode Phone Number [facility] [address] [place] [address] [place] ECG 12 lead (09/30/2020 5:14 PM LABOR OPERATOR)Only the most recent of6 resultswithin the time period is included. Specimen Narrative Performed At Ventricular Rate 113 BPM GE MUSE Atrial Rate 113 BPM P-R Interval 178 ms QRS Duration 70 ms Q-T Interval 340 ms QTC Calculation(Bazett) 466 ms P [place] 49 degrees R [place] 15 degrees T [place] 59 degrees Sinus tachycardia with frequent Prematur e atrial complexes Nonspecific T wave abnormality Abnormal ECG When compared with ECG of 30-SEP-2020 17 :13, No significant changes Confirmed by MD CHAMPION JOSEPH P ([id number]) on 10/01/20 8:18:03 AM Procedure Note Interface, External Ris In - 10/01/2020 8:18 AM LABOR OPERATOR Ventricular Rate 113 BPM Atrial Rate 113 BPM P-R Interval 178 ms QRS Duration 70 ms Q-T Interval 340 ms QTC Calculation(Bazett) 466 ms P [place] 49 degrees R [place] 15 degrees T [place] 59 degrees Sinus tachycardia with frequent Prematur e atrial complexes Nonspecific T wave abnormality Abnormal ECG When compared with ECG of 30-SEP-2020 17 :13, No significant changes Confirmed by MD CHAMPION JOSEPH P ([id number]) on 10/01/2020 8:18:03 AM Performing Organization Address [facility] Centercoin Phone Number [employer] MUSE Hemoglobin and hematocrit (09/30/2020 4:31 PM LABOR OPERATOR)Only the most recent of2 resultswithin the time period is included. Pathologist Sig nature Hemoglobin 6.8 (L) 13.7 - 17.5 GM/DL [facility] Hematocrit 24.6 (L) 40.1 - 51.0 % [facility] Specimen Blood Narrative Performed At Dehydrogenation Operator Head ID - [id number] [facility]ENTER Performing Organization Address City/State/Zipcode Phone Number [facility] [address] [place] [address] [place] HGB/HCT (H&H)-Stat Lab (09/30/2020 11:57 AM LABOR OPERATOR)Only the most recent of2 resultswithin the time period is included. Pathologist Sig nature Hemoglobin 7.6 (L) 13.0 - 16.8 GM/DL [facility] Hematocrit 22.0 (L) 40.0 - 50.0 % [facility] Specimen Blood, Arterial Performing Organization Address City/State/Zipcode Phone Number [facility] [address] [place] [address] chest without IV contrast (09/30/2020 11:11 AM LABOR OPERATOR) Specimen Narrative Performed At FINAL REPORT [employer] RUST TECHNIQUE: CT of the chest WITHOUT intra venous contrast. Dose modulation, iterative reconstruction, an d/or weight-based adjustment of the mA/kV was utilized to reduce the radiation dose to as low as reasonably achievable. INDICATION: Pleural effusion. COMPARISON: CT abdomen pelvis 04/19/2020, CT chest 06/05/2020. FINDINGS: ABSENCE OF INTRAVENOUS CONTRAST DECREASE S SENSITIVITY FOR DETECTION OF FOCAL LESIONS AND VASCULAR PATHOLOGY. LINES/TUBES: The right IJ port catheter tip terminates in the superior vena cava.. LUNGS AND AIRWAYS: Mild retained secreti ons within the right main bronchus. Central airways are otherwise patent. There is consolidative opacity throughout the rig ht lung which has increased since August 22, 2020. Linear bands of subsegmental atelectasis within the left lower lobe. There is a n ew 0.4 cm lingular nodule. (See axial image 37). PLEURA: Complex ri ght subpulmonic pleural effusion with pleural nodularity. Few sm all foci of gas are noted within the effusion. There is a tunneled pleural catheter. HEART AND MEDIASTINUM: There are mildly enlarged mediastinal lymph nodes appear. For instance a right parat tato lymph node measures 1.8 x 2.2 cm. This is not significantly changed since previous exam.. The heart and pericardium are within nor mal limits. SOFT TISSUES AND BONES: Small amount of subcutaneous gas in the right chest wall.. Degenerative changes in the spine. No suspicious osseous lesion. UPPER ABDOMEN: Metallic stent in the pro ximal descending colon.. Partially visualized omental nodularity in the left upper quadrant of the abdomen. Redemonstration of implant along the dome of the left hepatic lobe measuring 2.8 cm. There is redemonstration of a 4.7 x 3.4 cm left adrenal mass. IMPRESSION: Complex loculated malignant effusion in the right lung base with pleural catheter in place. Foci of gas a re noted within the collection and in the right chest wall. This may related to recent intervention. Superimposed infection can not be excluded. Increased consolidation throughout the r ight lung concerning for pneumonia and/or atelectasis. New 4 mm lingular nodule which may repre sent metastatic disease. Redemonstration of peritoneal metastatic disease. Unchanged left adrenal mass. Unchanged mildly enlarged mediastinal ly mph nodes also concerning for metastatic disease. Signed: Olga Alamo MD Report Verified Date/Time: 09/30/2020 13:19:51 Reading Location: [address] Reading Room Procedure Note Interface, External Ris In - 09/30/2020 1:22 PM LABOR OPERATOR FINAL REPORT TECHNIQUE: CT of the chest WITHOUT intra venous contrast. Dose modulation, iterative reconstruction, an d/or weight-based adjustment of the mA/kV was utilized to reduce the radiation dose to as low as reasonably achievable. INDICATION: Pleural effusion. COMPARISON: CT abdomen pelvis 04/19/2020, CT chest 06/05/2020. FINDINGS: ABSENCE OF INTRAVENOUS CONTRAST DECREASE S SENSITIVITY FOR DETECTION OF FOCAL LESIONS AND VASCULAR PATHOLOGY. LINES/TUBES: The right IJ port catheter tip terminates in the superior vena cava.. LUNGS AND AIRWAYS: Mild retained secreti ons within the right main bronchus. Central airways are otherwise patent. There is consolidative opacity throughout the rig ht lung which has increased since August 22, 2020. Linear bands of subsegmental atelectasis within the left lower lobe. There is a n ew 0.4 cm lingular nodule. (See axial image 37). PLEURA: Complex ri ght subpulmonic pleural effusion with pleural nodularity. Few sm all foci of gas are noted within the effusion. There is a tunneled pleural catheter. HEART AND MEDIASTINUM: There are mildly enlarged mediastinal lymph nodes appear. For instance a right parat tato lymph node measures 1.8 x 2.2 cm. This is not significantly changed since previous exam.. The heart and pericardium are within nor mal limits. SOFT TISSUES AND BONES: Small amount of subcutaneous gas in the right chest wall.. Degenerative changes in the spine. No suspicious osseous lesion. UPPER ABDOMEN: Metallic stent in the pro ximal descending colon.. Partially visualized omental nodularity in the left upper quadrant of the abdomen. Redemonstration of implant along the dome of the left hepatic lobe measuring 2.8 cm. There is redemonstration of a 4.7 x 3.4 cm left adrenal mass. IMPRESSION: Complex loculated malignant effusion in the right lung base with pleural catheter in place. Foci of gas a re noted within the collection and in the right chest wall. This may related to recent intervention. Superimposed infection can not be excluded. Increased consolidation throughout the r ight lung concerning for pneumonia and/or atelectasis. New 4 mm lingular nodule which may repre sent metastatic disease. Redemonstration of peritoneal metastatic disease. Unchanged left adrenal mass. Unchanged mildly enlarged mediastinal ly mph nodes also concerning for metastatic disease. Signed: Olga Alamo MD Report Verified Date/Time: 09/30/2020 1 3:19:51 Reading Location: [facility] C013X [facility] Reading Room Performing Organization Address City/State/Zipcode Phone Number [facility] PT/aPTT (09/30/2020 10:15 AM LABOR OPERATOR)Only the most recent of3 resultswithin the time period is included. Pathologist Sig nature Protime 16.0 (H) 11.9 - 14.2 seconds [facility] INR 1.32 <=5.90 [facility] PTT 33.1 22.5 - 36.0 seconds [facility] Specimen Blood Narrative Performed At Effective 02/28/2019: PT Reference Range [facility] Change New: 11.9-14.2 Previous: 11.7-14.7 RECOMMENDED COUMADIN/WARFARIN INR THERAPY RANGES STANDARD DOSE: 2.0-3.0 Includes: PROPHYLAXIS for venous thrombosis, systemic embolization; TREATMENT for venous thrombosis and/or pulmonary embolus. HIGH RISK: Target INR is 2.5-3.5 for patients wiht mechanical heart valves. Performing Organization Address City/[facility] Phone Number [address] [address] [place] Calcium, Ionized (09/30/2020 10:15 AM LABOR OPERATOR) Pathologist Sig nature Calcium, Ion 1.16 1.12 - 1.27 mmol/L [facility] pH, Blood 7.35 [facility] Specimen Blood Performing Organization Address [facility] Centercode Phone Number [address] [address] [place] Potassium (09/30/2020 10:15 AM LABOR OPERATOR) Pathologist Sig nature Potassium 3.6 3.5 - 5.1 meq/L [facility] Specimen Blood Performing Organization Address [facility] Phone Number [address] [address] CENTER Phosphorus (09/30/2020 10:15 AM LABOR OPERATOR)Only the most recent of7 resultswithin the time period is included. Pathologist Sig nature Phosphorus 4.4 2.3 - 4.7 mg/dL [facility] Specimen Blood Narrative Performed At Dehydrogenation Operator Head DARYN Oliver [facility] MED [facility]AL CENTER Performing Organization Address [facility] Phone Number [address] [address] [place] Glucose (09/30/2020 10:15 AM LABOR OPERATOR) Pathologist Sig nature Glucose 126 (H) 70 - 105 mg/dL [facility] Specimen Blood Performing Organization Address [facility]ode Phone Number [address] [address] [place] Tissue Exam (09/30/2020 9:05 AM LABOR OPERATOR) Case Report Surgical Pathology Report Case: [id number] I [facility] Authorizing Provider: Tarun Coker MD Collected: 09/30/2020 09:05 AM [facility] Ordering Location: [facility] Received: 09/30/2020 09:23 AM [facility] Pathologist: Allen Velazquez MD Specimens: A) - Pleural, Right, RIGHT PLEURAL BIOPSY B) - Pleu ral, Right, RIGHT PLUERAL BIOPSY R/O CANCER DIAGNOSIS A. PLEURA, RIGHT, BIOPSY: [facility] E lectronically MODERATELY DIFFERENTIATED ADENOCARCINOMA. [facility] signed by Caroline, SEE DIAGNOSTIC COMMENT. MEDICAL Cirilo jaelyn Ramirez MD CENTER on 10/08/2020 at B. PLEURA, RIGHT, BIOPSY: 9: 40 AM MODERATELY DIFFERENTIATED ADENOCARCINOMA. Signing Pathologist Direct Phone Line: COMMENT Immunohistochemical [facility] studies performed on [facility] block A2 demonstrate the MEDICAL tumor cells to be CENTER positive for CK20 and CDX2. They are negative for CK7 and TTF1. The immunophenotypic as well as the morphologic findings are compatible with an adenocarcinoma of colonic origin. CPT Code(s) 11925, 66840 X 2, [address]107, [facility] [id number] [facility] CLINICAL HISTORY Preoperative diagnosis: [facility] Pleural effusion. [facility] SPECIMEN SOURCE A. Pleural, right [facility] B. Pleural, right [facility] GROSS DESCRIPTION Part A received in formalin labeled with the patient's name, date of , assigned accession number and "pleural, right" consists of multiple tucker-black fragments of soft tissue measuring between 0.[address] [facility] to 1.5 cm in greatest dimens ion and 2 x 2.5 x 0.8 cm in aggregate. The entire tissue is submitted in cassettes A1-A3. [facility] MEDICAL Part B received fresh for in traoperative consultation labeled with the patient's name, date of , assigned accession number and "pleural, right" consists of two pink-maroon fragments of soft tissue CENTER measuring 2.5 x 1.5 x 0.8 cm in aggregate. A portion of the lesion was submitted for frozen section, and the results were communicated to the surgical team. The entire tissue including the remainder of the frozen section is submit murphy in cassette B1-B4 (B1 is the remainder of the frozen section). LC/ew INTRAOPERATIVE [facility] CONSULTATION B. PLEURA, RIGHT, BIOPSY: [facility] - POSITIVE FOR [facility] MICROSCOPIC Performed. [facility] SPECIAL STUDIES The interpretation of this c ase included the use of immunohistochemistry or special stains. [facility] Control Slides Examined: In -house known positive controls were evaluated along with the test tissue. These control slides run alongside of the patients sample show appropriate staining. Internal posit MEDICAL annabelle and negative controls when available are evaluated [place] Immunohistochemistry technic al testing was performed at [facility], Pathology Laboratory where it was developed and its performance characteristics were determined. It has not be en cleared or approved by [facility] U.S. Food and Drug Administration. The FDA has determined that such clearance or approval is not necessary. The test is used for clinical purposes. It should not be regarde d as investigational or for research. This laboratory is certified under the Clinical Laboratory Improvement Amendments of 1988 (CLIA-88) as qualified to perform high complexity clinical laboratory testing. BLOCK A2- CK7, CK20, CDX2, TTF1 Gross assessment [facility] was performed at [facility] Pathology, [address] [place] [address] CENTER [id number], Technical component [facility] was performed at [facility] Pathology, [address] [place] [address] CENTER [address], Professional [facility] component was [facility] performed at Pathology, [address] [place] [address] CENTER [address], Specimen Tissue - Structure of right pleural cavi ty (body structure) Tissue specimen (specimen) - Structure o f right pleural cavity (body structure) Performing Organization Address City/State/Zipcode Phone Number [address] [phone] [place] Glucose-Stat Lab (09/30/2020 8:59 AM LABOR OPERATOR) Pathologist Sig nature Glucose 101 70 - 110 mg/dL [facility] [place] Specimen Blood, Arterial Performing Organization Address [facility]/Zipcode Phone Number [facility] [address] [place] [address] CENTER Type and screen, automated (09/29/2020 11:52 AM LABOR OPERATOR) Pathologist Sig nature ABO/RH AUTOMATED A POSITIVE [facility] (BEAKER) [facility] Ab Scrn NEGATIVE [facility] Specimen Blood - Entire left upper arm (body stru cture) Performing Organization Address City/[facility]/Zipcode Phone Number [facility] [address] [place] [address] SARS-CoV2/RT-PCR ([facility] Ref Labs) (09/29/2020 11:47 AM LABOR OPERATOR)Only the most recent of3 resultswithin the time period is included. SARS-COV2/RT-PCR Negative Not Detected, [facility] Negative, See [facility] external report CENTER for linked test SARS-COV-2 [facility] VIRGEN [facility] PERFORMING LAB [facility] Specimen Other - Nasopharyngeal wall structure (b monty structure) Narrative Performed At Negative result for this test determines that [facility] SARS-CoV-2 RNA was not present in the specimen above the Limit of Detection (LOD). However, Negative results do not preclude SARS-CoV-2 infection and should not be used as the sole basis for treatment or patient management decisions. Negative results must be combined with clinical observations, patient history, and epidemiological information. A false negative result may occur if a specimen is improperly collected, transported or handled. A false negative result should be considered if patient's recent exposures or clinical presentation indicate that COVID-19 (SARS-CoV-2) is likely and diagnostic tests for other causes of illness are negative. Re-testing should be considered in cases of suspected false negatives. The limit of detection for this assay is 800 copies/mL. This SARS CoV-2 test is a real-time RT-PCR test intended for the qualitative detection of nucleic acid from SARS-CoV-2 in a nasopharyngeal swab specimen collected from individuals suspected of COVID-19 by their healthcare provider. This test has not been Food and Drug Administration (FDA) cleared or approved. This is a modified version of an approved Emergency Use Authorization (EUA) and is in the process of review by the FDA. Once authorized by the FDA, the issued EUA will be effective until the declaration that circumstances exist justifying the authorization of the emergency use of in vitro diagnostic tests for detection and/or diagnosis of COVID-19 is terminated under Section 564(b)(2) of the Act or the EUA is revoked under Section 564(g) of the Act. Fact Sheet for Healthcare Providers: https://www.[employer]/sites/default/files/pro duct/documents/Fact_Sheet_HC_Providers_Lyra_SA RS-CoV-2.pdf Fact Sheet for Healthcare Patients: https://www.[employer]/sites/default/files/pro duct/documents/Fact_Sheet_Patients_Lyra_SARS-C oV-2.pdf Performing Laboratory: [place] [address] Performing Organization Address City/State/[place]code [place] [address] CENTER REPORT OF PROCEDURE - ENDOSCOPY URL (08/21/2020 2:17 PM LABOR OPERATOR) Narrative Performed At This result has an attachment that is no t available. [place] fluoro non-specific up to 1 hour (08/21/2020 1:55 PM LABOR OPERATOR) Specimen Narrative Performed At Fluoroscopic unit utilized for a procedure performed i n the OR. No [facility] interpretation was requested. Refer to the operative report for findings. Refer to PACS for patient radiation dose i nformation. Procedure Note Interface, External Ris In - 08/21/2020 5:26 PM LABOR OPERATOR Fluoroscopic unit utilized for a procedu re performed in the OR. No interpretation was requested. Refer to the operative r eport for findings. Refer to PACS for patient radiation dose information. Performing Organization Address City/State/Zipcode Phone Number GE RIS CT abdomen pelvis with IV contrast (08/20/2020 11:53 AM LABOR OPERATOR)Only the most recent of4 resultswithin the time period is included. Specimen Narrative Performed At FINAL REPORT GE RIS CT of the abdomen and pelvis, with contr ast Clinical History: Abdominal distension ABDOMINAL PAIN Technique: CT of the abdomen and pelvis is performed with intravenous contrast administration. This exam was performed according to our departmental dose optimization program w hich includes automated exposure control, adjustment of the mA a nd/or kV according to patient's size and/or use of iterative r econstructive technique. Comparison Film: June 05, 2020 Discussion: There is a loculated right pleural effus ion, associated with marked nodular thickening of the pleura, which is worse since the prior study. There are enlarged right diaphrag matic lymph nodes. There are serosal deposits along the olya er surface, progressed since the prior study, with two dominant nodul ar foci noted at the dome region, measuring 2.7 cm and 2.3 cm, and another dominant deposit is seen along the inferior right lobe, josh uring 2 cm. No biliary ductal dilatation. Gallbladder is normal. The spleen, pancreas are unremarkable. A left adrenal mass measures 3.3 x 4.2 cm, without interval change. N ormal right adrenal gland. Kidneys demonstrate no mass, hydronephro sis or radiopaque stone. There is a stent in the descending colon . There is increased distention of the colon proximal to the stent, suggesting obstruction. Small bowel is normal in ca liber. In the pelvis, bladder is normal. Prosta te is mildly prominent. There is mild degree of omental carcinom atosis not significantly changed. No free air, or ascites. No new adenopathy. Bony structures demonstrate degenerative changes. No larry picious lesion is identified. Impression: Colonic distention proximal to the stent in the descending colon, suggesting obstruction. Interval progression of right pleural, a nd hepatic serosal metastatic deposits. Omental carcinomatosis is tatianna sly unchanged. Stable left adrenal mass. Signed: Stefanie Roy MD Report Verified Date/Time: 08/20/2020 12:21:52 Reading Location: [facility] C013X [facility] Reading Room Procedure Note Interface, External Ris In - 08/20/2020 12:24 PM LABOR OPERATOR FINAL REPORT CT of the abdomen and pelvis, with contr ast Clinical History: Abdominal distension ABDOMINAL PAIN Technique: CT of the abdomen and pelvis is performed with intravenous contrast administration. This exam was performed according to our departmental dose optimization program w hich includes automated exposure control, adjustment of the mA a nd/or kV according to patient's size and/or use of iterative r econstructive technique. Comparison Film: June 05, 2020 Discussion: There is a loculated right pleural effus ion, associated with marked nodular thickening of the pleura, which is worse since the prior study. There are enlarged right diaphrag matic lymph nodes. There are serosal deposits along the olya er surface, progressed since the prior study, with two dominant nodul ar foci noted at the dome region, measuring 2.7 cm and 2.3 cm, and another dominant deposit is seen along the inferior right lobe, josh uring 2 cm. No biliary ductal dilatation. Gallbladder is normal. The spleen, pancreas are unremarkable. A left adrenal mass measures 3.3 x 4.2 cm, without interval change. N ormal right adrenal gland. Kidneys demonstrate no mass, hydronephro sis or radiopaque stone. There is a stent in the descending colon . There is increased distention of the colon proximal to the stent, suggesting obstruction. Small bowel is normal in ca liber. In the pelvis, bladder is normal. Prosta te is mildly prominent. There is mild degree of omental carcinom atosis not significantly changed. No free air, or ascites. No new adenopathy. Bony structures demonstrate degenerative changes. No larry picious lesion is identified. Impression: Colonic distention proximal to the stent in the descending colon, suggesting obstruction. Interval progression of right pleural, a nd hepatic serosal metastatic deposits. Omental carcinomatosis is tatianna sly unchanged. Stable left adrenal mass. Signed: Stefanie Roy MD Report Verified Date/Time: 08/20/2020 1 2:21:52 Reading Location: [facility] C013X [facility] Reading Room Performing Organization Address City/State/Zipcode Phone Number GE [facility] Urinalysis w/Microscopic + Reflex to Culture (08/20/2020 10:07 AM LABOR OPERATOR) Color, UA Yellow [facility] Clarity, UA Clear [facility] Specific [place], 1.020 1.005 - 1.030 [facility] UA [facility] pH, UA 6.0 5.0 - 9.0 [facility] Protein, UA Negative Negative [facility] Glucose, UA Negative Negative [facility] Ketones, UA Negative Negative [facility] Bilirubin, UA Negative Negative [facility] Blood, UA Trace (A) Negative [facility] Nitrite, UA Negative Negative [facility] Leukocytes, UA Negative Negative [facility] Urobilinogen, UA 0.2 0.2 - 1.0 mg/dL [facility] Bacteria, UA Occasional [facility] RBC, UA <5 /HPF [facility] WBC, UA <5 /HPF [facility] Specimen Source [facility] Specimen Urine Performing Organization Address [facility] Phone Number [facility] [address] [place] [address] Lactic acid, venous (08/20/2020 10:07 AM LABOR OPERATOR)Only the most recent of3 results within the time period is included. Lactate, Venous 1.60Comment: 0.50 - 2.20 [facility] markedly mmol/L [facility] hemolyzed Specimen Blood Performing Organization Address [facility] Phone Number [facility] [address] [place] [address] Lipase (08/20/2020 10:07 AM LABOR OPERATOR) Pathologist Sig nature Lipase 26 8 - 78 U/L [facility] Specimen Blood Performing Organization Address [facility] Phone Number [facility] [address] [place] [address] Comprehensive metabolic panel (08/20/2020 10:07 AM LABOR OPERATOR) Protein, Total 8.6 (H)Comment: 6.0 - 8.3 [facility] Specimen slightly gm/dL [facility] hemolyzed Albumin 4.4Comment: 3.5 - 5.0 [facility] Specimen slightly g/dL [facility] hemolyzed Alkaline 75 40 - 150 U/L [facility] Phosphatase [facility] Total Bilirubin 0.3Comment: 0.2 - 1.2 [facility] Specimen slightly mg/dL [facility] hemolyzed Sodium 134 (L) 136 - 145 [facility] meq/L [facility] Potassium 3.9Comment: 3.5 - 5.1 [facility] Specimen slightly meq/L [facility] hemolyzed Chloride 99 98 - 107 [facility] meq/L [facility] CO2 29 22 - 29 meq/L [facility] BUN 12 7 - 21 mg/dL [facility] Creatinine 0.68Comment: 0.57 - 1.25 [facility] Specimen slightly mg/dL [facility] hemolyzed Glucose 110 (H) 70 - 105 [facility] mg/dL [facility] Calcium 9.1 8.4 - 10.2 [facility] mg/dL [facility] AST 25Comment: 5 - 34 U/L [facility] Specimen slightly [facility] hem[facility] ALT 10Comment: 6 - 55 U/L [facility] Specimen slightly [facility] hem[facility] EGFR 145Comment: mL/min/1.73 [facility] ESTIMATED GFR IS sq m [facility] NOT ACCURATE CREATININE CLEARANCE IN PREDICTING GLOMERULAR FILTRATION RATE. ESTIMATED GFR IS NOT APPLICABLE FOR DIALYSIS PATIENTS. Specimen Blood Performing Organization Address City/State/Zipcode Phone Number [facility] [address] [place] [address] ECG/EKG Interpretation (08/20/2020 9:50 AM LABOR OPERATOR) Narrative Performed At Wojciech Mcdermott MD 08/20/2020 10: 34 AM ECG/EKG Interpretation Date/Time: 08/20/2020 10:34 AM Performed by: Wojciech Mcdermott MD Authorized by: Wojciech Mcdermott MD The ECG was interpreted by ED physician. Comments: Sin us with PACs, rate 83, pr 152, qrs 82, qtc 465, normal axis , no sig dayanara/std, twi inferolaterally EKG-SCANNED (08/20/2020)Only the most recent of2 resultswithin the time period is included. Narrative Performed At This result has an attachment that is no t available. Ordered by an unspecified provider. IR Removal Indwelling Tunneled Pleural Cath w/Cuff (06/16/2020 9:30 AM CDT) Specimen Narrative Performed At FINAL REPORT GE RUST History: Recurrent right pleural effusio ns, patient no longer needs tunneled pleural catheter Procedure: Following informed written consent, the patient's existing right tunneled pleural catheter and surroundin g skin site were prepped and draped in the usual sterile manner. 2% l idocaine was given locally for anesthesia. No conscious sedation wa s administered. The catheter cuff was bluntly dissected from the subc utaneous tunnel and the catheter was removed without complicatio ns. Impression: 1. Successful uncomplicated removal of t he patient's right tunneled pleural catheter. No fluoroscopy was utilized for this pro cedure and no images were obtained. Signed: Lalita Lopez MD Report Verified Date/Time: 06/24/2020 16:22:21 Reading Location: [place] [address] Angio Body Reading Room Procedure Note Interface, External Ris In - 06/24/2020 4:24 PM CDT FINAL REPORT History: Recurrent right pleural effusio ns, patient no longer needs tunneled pleural catheter Procedure: Following informed written consent, the patient's existing right tunneled pleural catheter and surroundin g skin site were prepped and draped in the usual sterile manner. 2% l idocaine was given locally for anesthesia. No conscious sedation wa s administered. The catheter cuff was bluntly dissected from the subc utaneous tunnel and the catheter was removed without complicatio ns. Impression: 1. Successful uncomplicated removal of t he patient's right tunneled pleural catheter. No fluoroscopy was utilized for this pro cedure and no images were obtained. Signed: Lalita Lopez MD Report Verified Date/Time: 06/24/2020 1 6:22:21 Reading Location: [facility] P048 Angio Body Reading Room Performing Organization Address City/[facility] Phone Number LORENZO aPTT (06/16/2020 8:25 AM CDT)Only the most recent of4 resultswithin the time period is included. Pathologist Sig nature PTT 29.4 22.5 - 36.0 seconds [facility] Specimen Blood Performing Organization Address [facility] Phone Number [address] [address] CENTER Prothrombin time/INR (06/16/2020 8:25 AM CDT)Only the most recent of2 results within the time period is included. Pathologist Sig nature Protime 15.6 (H) 11.9 - 14.2 seconds [facility] INR 1.28 <=5.90 [facility] Specimen Blood Narrative Performed At Effective 02/28/2019: PT Reference Range [facility] Change New: 11.9-14.2 Previous: 11.7-14.7 RECOMMENDED COUMADIN/WARFARIN INR THERAPY RANGES STANDARD DOSE: 2.0-3.0 Includes: PROPHYLAXIS for venous thrombosis, systemic embolization; TREATMENT for venous thrombosis and/or pulmonary embolus. HIGH RISK: Target INR is 2.5-3.5 for patients wiht mechanical heart valves. Performing Organization Address [facility] Phone Number [address] Chest with IV Contrast (06/05/2020 9:25 AM CDT)Only the most recent of3 resultswithin the time period is included. Specimen Narrative Performed At FINAL REPORT GE LORENZO EXAM: CT, ABDOMEN \\T\\ PELVIS, WITH IV CO NTRAST, CT, CHEST, WITH IV CONTRAST CLINICAL HISTORY: Unlisted Reason for Ex am Colon cancer metastasized to multiple si elissa COMPARISON: CT pulmonary angiogram 2019, CT chest abdomen and pelvis 03/13/2020 REFERRING PHYSICIAN: Dr. SOLITARIO. TECHNIQUE: A CT scan of the chest, abdom en, and pelvis. After the uncomplicated administration of intraven ous contrast material, volumetric imaging of the chest, abdomen , and pelvis was performed with coronal and sagittal reconstruction s. Oral contrast was not administered. Dose modulation, iterative reconstruction, and/or weight-based adjustment of the mA/kV was utilized to reduce the radiation dose to as low as reasonably a chievable. FINDINGS: ONCOLOGIC FINDINGS: History of colon cancer, with a stent ac ross the descending colonic mass, and a right pleural catheter in pl halima, with: - Increasing pleural thickening and nodu larity on the right compared with 03/13/2020. -Large right pleural effusion is grossly unchanged in size otherwise. -Peritoneal nodularity and omental nodul arity (most notable axial image 79 in the omentum and axial image 87 and the right lateral peritoneum), slightly more conspicuous t mariano 03/13/2020. -Capsular implants and/or peritoneal imp lants adjacent to the liver with mild contour nodularity (axial imag e 54), similar to 04/22/2020, perhaps slightly progressed from 03/13/20 20. -Suspicious right anterior supradiaphrag matic lymph nodes, up to 12 mm short axis, minimally increasing cons picuity from 03/13/2020 -Left adrenal mass, 38 x 36 mm, unchange d from on 03/13/2020 ADDITIONAL FINDINGS: CHEST: Lungs: Consolidation and subpleural nodu larity in the right lung, not convincingly changed from prior exam 04/03. Minimal subsegmental left lower lobe atelectasis. Otherwise g rossly clear left lung. Lymph nodes and Mediastinum: As above. U nchanged 13 mm short axis subcarinal node. Otherwise no definite m ediastinal lymphadenopathy. Left lower lobe consolidation has resolv ed since 04/22/2020, may have been related to a small pulmonary infarc t. Pleura: As above. Cardiovascular: The pulmonary emboli see n on CT PE 04/22/2020 are not visualized, although this exam was not t ailored for evaluation of the pulmonary vasculature. Right chest wall Port-A-Cath with tip at the upper SVC, catheter partially coiled in the right internal jugular vein. Coronary artery calcifications and atherosclerotic calcifications Other: Unremarkable. ABDOMEN/PELVIS: Liver: As above. Gallbladder and bile ducts: Unremarkable . Spleen, pancreas, adrenals: Left adrenal mass as above. Otherwise unremarkable Kidneys and ureters: Unremarkable. Bowel: As above. Wall thickening of the colon about the stent, not convincingly changed. No evidence for lore wel obstruction. Normal appendix. Bladder and reproductive organs: Underdi stended bladder. Lymph nodes: No lymphadenopathy. Peritoneum: As above. Vessels: Moderate atherosclerotic calcif ications. Abdominal wall: Extensive subcutaneous n odularity and foci of soft tissue gas and skin thickening in the bi lateral anterior abdominal wall upper and lower quadrants is new, l ikely related to subcutaneous medication administration. MUSCULOSKELETAL: Multilevel degenerative changes of the t horacolumbar spine. Small nonspecific lytic focus in the left pubi c bone, unchanged over multiple exams and likely benign. Ankylo sis of the bilateral sacroiliac joints unchanged. IMPRESSION: History of colon cancer, with a descendi ng colonic stent and a right pleural catheter, with: 1.Suggestion of some mildly increased di sease, extensive right pleural and peritoneal/omental nodularit y appears slightly worse than 03/13/2020. 2.Right anterior supradiaphragmatic lymp h nodes continue to minimally increased in conspicuity. 3.Unchanged left adrenal mass. 4.Unchanged size of the large right pleu ral effusion. Signed: Angelita Leon MD Report Verified Date/Time: 06/05/2020 10:54:37 Reading Location: [facility] B1 C013Y CT Body R [facility] Room Procedure Note Interface, External Ris In - 06/05/2020 10:56 AM CDT FINAL REPORT EXAM: CT, ABDOMEN \\T\\ PELVIS, WITH IV CO NTRAST, CT, CHEST, WITH IV CONTRAST CLINICAL HISTORY: Unlisted Reason for Ex am Colon cancer metastasized to multiple si elissa COMPARISON: CT pulmonary angiogram 2019, CT chest abdomen and pelvis 03/13/2020 REFERRING PHYSICIAN: Dr. SOLITARIO. TECHNIQUE: A CT scan of the chest, abdom en, and pelvis. After the uncomplicated administration of intraven ous contrast material, volumetric imaging of the chest, abdomen , and pelvis was performed with coronal and sagittal reconstruction s. Oral contrast was not administered. Dose modulation, iterative reconstruction, and/or weight-based adjustment of the mA/kV was utilized to reduce the radiation dose to as low as reasonably a chievable. FINDINGS: ONCOLOGIC FINDINGS: History of colon cancer, with a stent ac ross the descending colonic mass, and a right pleural catheter in pl halima, with: - Increasing pleural thickening and nodu larity on the right compared with 03/13/2020. -Large right pleural effusion is grossly unchanged in size otherwise. -Peritoneal nodularity and omental nodul arity (most notable axial image 79 in the omentum and axial image 87 and the right lateral peritoneum), slightly more conspicuous t mariano 03/13/2020. -Capsular implants and/or peritoneal imp lants adjacent to the liver with mild contour nodularity (axial imag e 54), similar to 04/22/2020, perhaps slightly progressed from 03/13/20 20. -Suspicious right anterior supradiaphrag matic lymph nodes, up to 12 mm short axis, minimally increasing cons picuity from 03/13/2020 -Left adrenal mass, 38 x 36 mm, unchange d from on 03/13/2020 ADDITIONAL FINDINGS: CHEST: Lungs: Consolidation and subpleural nodu larity in the right lung, not convincingly changed from prior exam 04/03. Minimal subsegmental left lower lobe atelectasis. Otherwise g rossly clear left lung. Lymph nodes and Mediastinum: As above. U nchanged 13 mm short axis subcarinal node. Otherwise no definite m ediastinal lymphadenopathy. Left lower lobe consolidation has resolv ed since 04/22/2020, may have been related to a small pulmonary infarc t. Pleura: As above. Cardiovascular: The pulmonary emboli see n on CT PE 04/22/2020 are not visualized, although this exam was not t ailored for evaluation of the pulmonary vasculature. Right chest wall Port-A-Cath with tip at the upper SVC, catheter partially coiled in the right internal jugular vein. Coronary artery calcifications and atherosclerotic calcifications Other: Unremarkable. ABDOMEN/PELVIS: Liver: As above. Gallbladder and bile ducts: Unremarkable . Spleen, pancreas, adrenals: Left adrenal mass as above. Otherwise unremarkable Kidneys and ureters: Unremarkable. Bowel: As above. Wall thickening of the colon about the stent, not convincingly changed. No evidence for lore wel obstruction. Normal appendix. Bladder and reproductive organs: Underdi stended bladder. Lymph nodes: No lymphadenopathy. Peritoneum: As above. Vessels: Moderate atherosclerotic calcif ications. Abdominal wall: Extensive subcutaneous n odularity and foci of soft tissue gas and skin thickening in the bi lateral anterior abdominal wall upper and lower quadrants is new, l ikely related to subcutaneous medication administration. MUSCULOSKELETAL: Multilevel degenerative changes of the t horacolumbar spine. Small nonspecific lytic focus in the left pubi c bone, unchanged over multiple exams and likely benign. Ankylo sis of the bilateral sacroiliac joints unchanged. IMPRESSION: History of colon cancer, with a descendi ng colonic stent and a right pleural catheter, with: 1.Suggestion of some mildly increased di sease, extensive right pleural and peritoneal/omental nodularit y appears slightly worse than 03/13/2020. 2.Right anterior supradiaphragmatic lymp h nodes continue to minimally increased in conspicuity. 3.Unchanged left adrenal mass. 4.Unchanged size of the large right pleu ral effusion. Signed: Angelita Leon MD Report Verified Date/Time: 06/05/2020 1 0:54:37 Reading Location: [facility] C013Y CT Body R eading Room Performing Organization Address City/State/Zipcode Phone Number [employer] RIS RHYTHM STRIP - SCAN (04/29/2020 2:02 PM CDT) Narrative Performed At This result has an attachment that is no t available. Digoxin level (04/26/2020 6:02 AM CDT) Pathologist Sig nature Digoxin Lvl 1.14 0.80 - 2.00 ng/mL [facility] Specimen Blood Narrative Performed At Dehydrogenation Operator Head ID - MORENO [facility] Performing Organization Address City/State/Zipcode Phone Number [facility] MEDICAL [address] [place] [address] CENTER Heparin Assay - Low Molecular Weight (04/25/2020 10:00 AM CDT) Pathologist Sig nature Anti 10A-Lovenox 1.05 0.60 - 2.00 u/ml [facility] Specimen Blood Narrative Performed At Anti-Factor 10-A Level (Heparin Assay for Low [facility] Molecular Weight Heparin) Monitoring Guidelines: Blood samples should be obtained 4 hours post subcutaneous injection (time of Peak level) Therapeutic Peak Levels: 0.6-1.0 units/mL twice daily enoxapar in 1.0-2.0 units/mL once daily enoxapari n Ref: CHEST 2012;141:[id number] Please draw 4 hours after enoxaparin dose for accurate level. Performing Organization Address City/[facility]/Zipcode Phone Number [address] [address] CENTER TSH/Free T4 If Indicated (04/24/2020 3:21 AM CDT) Pathologist Sig nature TSH 0.685 0.350 - 4.940 uIU/mL [facility] Specimen Blood Narrative Performed At Dehydrogenation Operator Head ID - EDASI [facility] Performing Organization Address [facility] Phone Number [address] [address] CENTER Hemoglobin A1c (04/24/2020 3:21 AM CDT) Pathologist Sig nature Hemoglobin A1C 6.9 (H) 4.3 - 6.1 % [facility] Specimen Blood Performing Organization Address [facility] Phone Number [address] [address] CENTER B-type Natriuretic Factor (BNP) (04/23/2020 8:21 PM CDT)Only the most recent of 2 resultswithin the time period is included. Pathologist Sig nature BNP 85 0 - 100 pg/mL [facility] ME DICAL CENTER Specimen Blood Narrative Performed At Dehydrogenation Operator Head ID - BS [facility] Performing Organization Address [facility] Phone Number [address] [address] CENTER Hepatic function panel (04/23/2020 8:21 PM CDT) Protein, Total 7.8Comment: 6.0 - 8.3 [facility] Specimen gm/dL [facility] hemolyzed Albumin 3.5Comment: 3.5 - 5.0 [facility] Specimen g/dL [facility] hemolyzed Total Bilirubin 0.5Comment: 0.2 - 1.2 [facility] Specimen mg/dL [facility] hemolyzed Bilirubin, Direct 0.2Comment: 0.1 - 0.5 [facility] Specimen mg/dL [facility] hemolyzed Alkaline 74 40 - 150 U/L [facility] AST 29Comment: 5 - 34 U/L [facility] hemolyzed ALT 14Comment: 6 - 55 U/L [facility] hemolyzed Specimen Blood Narrative Performed At Dehydrogenation Operator Head ID - BS [facility] MED [facility]AL CENTER Performing Organization Address City/[facility] Centercode [place] [address] CENTER Procalcitonin (04/23/2020 9:17 AM CDT) Pathologist Sig nature Procalcitonin <0.05 <0.05 ng/mL [facility] Specimen Blood Narrative Performed At SEPSIS RISK (ng/mL) [facility] Low: 0.05-0.50 Intermediate: 0.51-2.00 High: >=2.01 Performing Organization Address [facility] Phone Number [address] [address] CENTER 2D Echo W/Doppler(CW/PW/Color) (04/23/2020 2:09 AM CDT) Pathologist Sig nature Ejection Fraction [facility] ECHO HEARTLAB [facility] Specimen Narrative Performed At Transthoracic Echocardiography Report (T TE) [facility] ECHO HEARTLAB [facility] Demographics Patient Name SHAI LARA Date of Study 04/23/2020 Anastacia Gender Male Visit Number [id number] Race Black Room Number ED27 Number Date of 1960 Referring Physician Constance jha Age 59 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 Clinical History Obesity, DM, Pneumonia, HTN, Asthma HGB 11.4 HCT 37.1 % Contrast Medium: Definity. Height: 71 inches Weight: 146.06 kg (322 lbs) BSA: 2.58 m^2 BMI: 44.91 kg/m^2 HR: 119 bpm BP: 136/86 mmHg Summary Technically difficult study. 1. The left ventricle is chamber size (by PSLAX dimension) is small (male - LVIDd < 4.2cm) with moderate concentric LV hypertrophy. Estimated LVEF by qualitative assessment is normal (55-60%) . Degree of diastolic dysfunction (LAP assessment) is inconclusive due to tachycardia . 2. Normal RV size and systolic function . 3. No significant valvular abnormality. 4. Unable to estimate peak systolic PA pressure; inadequate TR velocity signal. Previous Study In comparison with the prior exam on 10/24/2019 the following changes are noted: patient was tachycardic on today's exam and PASP was unable to be measured. Signature Findings Rhythm/BP Rapid rhythm during the exam. Left Ventricle The LV endocardium is adequately visualized. The left ventricle is chamber size (by PSLAX dimension) is small (male - LVIDd < 4.2cm) . Moderate concentric LV hypertrophy. All of the LV segments contract normally . Estimated LVEF by qualitative assessment is normal (55- 60%) . Degree of diastolic dysfunction (LAP assessment) i s inconclusive due to tachycardia . Left Atrium LA is partially visualized. LA size is normal . Right Ventricle RV is partially visualized. RV chamber size is normal . Global RV systolic function is normal . Right Atrium The right atrium is not well visualized. Atrial Septum Normal interatrial septum by available views. Aortic Valve The aortic valve is not well visualized. No evidence of aortic stenosis. Mitral Valve MV is partially visualized. Mild MV leaflet thickening. Mild mitral annular calcification. No significant mitral regurgitation. Tricuspid Valve TV is not well visualized. Unable to estimate peak systolic PA pressure; inadequate TR velocity signal. Pulmonic Valve PV is not well visualized; function appears normal by Doppler visualized. Aorta Aortic root size (SInus of Valsalva diameter) is norm al . Pericardium Small pericardial effusion present anterior to the RV. IVC/SVC/PA/PV/Pleural The estimated RA pressure by IVC dynamics 11-15mmHg . Chambers/Structures Left Atrium LA Volume: 83.05 ml LA Area: 25.73 cm^2 LA Vol. Index: 32 ml/m^2 Left Ventricle LVIDd: 3.72 cm LV Septum Diastolic: 1.63 cm LV PW Diastolic: 1.56 cm LVOT Diameter: 2.19 cm Right Ventricle RV Diast Dim.: 3.33 cm Aorta Ao Root S of Mary[place].: 3.61 cm Doppler/Quantitative Measurements Mitral Valve Deceleration Time: 135.3 msec MV Gareth. Peak: Aortic Valve Peak Velocity: 0.83 m/s Mean Velocity: 0.62 m/s Peak Gradient: 2.77 mmHg Mean Gradient: 1.76 mmHg AV Area (continuity): 3.93 cm^2 AV VTI: 12.82 cm AV DVI: 1.04 LVOT Peak Velocity: 0.85 m/s Peak Gradient: 2.86 mmHg Mean Velocity: 0.61 m/s Mean Gradient: 1.67 mmHg LVOT Diameter: 2.19 cm LVOT VTI: 13.39 cm LVOT Area: 3.77 cm^2 LVOT SV:50.41 ml LVOT CO: 6 l/min LVOT CI: 2.33 l/min/m^2 Procedure Note Interface, External Ris In - 04/23/2020 8:15 AM CDT Transthoracic Echocardiography Report (TTE) Demographics Patient Name SHAI LARA Date of Study 04/23/2020 Caitlin arellano Male Visit Number [id number] Race Black Room Number ED27 Number Date of 1960 [facility] Physician Constance Horowitz Age 59 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 Clinical History Obesity, DM, Pneumonia, HTN, Asthma HGB 11.4 HCT 37.1 % Contrast Medium: Definity. Height: 71 inches Weight: 146.06 kg (322 lbs) BSA: 2.58 m^2 BMI: 44.91 kg/m^2 HR: 119 bpm BP: 136/86 mmHg Summary Technically difficult study. 1. The left ventricle is chamber size ( by PSLAX dimension) is small (male - LVIDd < 4.2cm) with moderate concentr ic LV hypertrophy. Estimated LVEF by qualitative assessmen t is normal (55-60%) . Degree of diastolic dysfunction (LAP as sessment) is inconclusive due to tachycardia . 2. Normal RV size and systolic function . 3. No significant valvular abnormality. 4. Unable to estimate peak systolic PA pressure; inadequate TR velocity signal. Previous Study In comparison with the prior exam on the following changes are noted: patient was tachycardic on today 's exam and PASP was unable to be measured. Signature Findings Rhythm/BP Rapid rhythm dur ing the exam. Left Ventricle The LV endocardi um is adequately visualized. The left ventric le is chamber size (by PSLAX dimension) is sm all (male - LVIDd < 4.2cm) . Moderate concent brayan LV hypertrophy. All of the LV se gments contract normally . Estimated LVEF b y qualitative assessment is normal (55-60%) . Degree of diasto lic dysfunction (LAP assessment) is inconclusive due to tachycardia . Left Atrium LA is partially visualized. LA size is yoselyn l . Right Ventricle RV is partially visualized. RV chamber size is normal . Global RV systol ic function is normal . Right Atrium The right atrium is not well visualized. Atrial Septum Normal interatri al septum by available views. Aortic Valve The aortic valve is not well visualized. No evidence of a ortic stenosis. Mitral Valve MV is partially visualized. Mild MV leaflet thickening. Mild mitral kishan lar calcification. No significant m itral regurgitation. Tricuspid Valve TV is not well v isualized. Unable to estima te peak systolic PA pressure; inadequate TR ve locity signal. Pulmonic Valve PV is not well v isualized; function appears normal by Doppler visua lized. Aorta Aortic root size (SInus of Valsalva diameter) is normal . Pericardium Small pericardia l effusion present anterior to the RV. IVC/SVC/PA/PV/Pleural The estimated RA pressure by IVC dynamics 11-15mmHg . Chambers/Structures Left Atrium LA Volume: 83.05 ml LA Area: 25.73 cm^2 LA Vol. Index: 32 ml/m^2 Left Ventricle LVIDd: 3.72 cm LV Septum Diastolic: 1.63 cm LV PW Diastolic: 1.56 cm LVOT Diameter: 2.19 cm Right Ventricle RV Diast Dim.: 3.33 cm Aorta Ao Root S of Marysol.: 3.61 cm Doppler/Quantitative Measurements Mitral Valve Deceleration Dennys e: 135.3 msec MV Gareth. Peak: Aortic Valve Peak Velocity: 0.83 m/s Mean Velocity: 0.62 m/s Peak Gradient: 2.77 mmHg Mean Gradient: 1.76 mmHg AV Area (continuity): 3.93 cm^2 AV VTI: 12.82 cm AV DVI: 1.04 LVOT Peak Velocity: 0.85 m/s Pea k Gradient: 2.86 mmHg Mean Velocity: 0.61 m/s Krystal n Gradient: 1.67 mmHg LVOT Diameter: 2.19 cm LVO T VTI: 13.39 cm LVOT Area: 3.77 cm^2 LVO T SV:50.41 ml LVOT CO: 6 l/min LVO T CI: 2.33 l/min/m^2 Performing Organization Address [facility] Phone Number [facility] MKCKESSON CPACS Blood gas, arterial (04/23/2020 1:01 AM CDT) Pathologist Sig nature pH, Arterial 7.44 7.35 - 7.45 [facility] pCO2, Arterial 36 35 - 45 mmHg [facility] pO2, Arterial 108 (H) 80 - 90 mmHg [facility] O2 Sat, Arterial 98.1 (H) 96.0 - 97.0 % [facility] HCO3, Arterial 24 21 - 29 mmol/L [facility] Base Excess, Arterial -0.1 -2.0 - 3.0 [facility] mmol/L [facility] Patient Temperature 36.8 C [facility] FIO2 28.0 % [facility] Specimen Blood, Arterial Performing Organization Address [facility] Phone Number [address] [address] [place] Blood Culture - Routine (Left Venipuncture) (04/22/2020 10:31 PM CDT)Only the most recent of2 resultswithin the time period is included. Pathologist Sig nature Result No growth in 5 days [facility] Specimen Blood - Entire left upper arm (body stru cture) Performing Organization Address [facility] Phone Number [facility] [address] [place] [address] chest PE test design (04/22/2020 9:42 PM CDT) Specimen Narrative Performed At FINAL REPORT GE RIS TECHNIQUE: CT of the chest WITH intraven ous contrast (pulmonary embolism protocol). Dose modulation, ite rative reconstruction, and/or weight-based adjustment of the mA/kV was utilized to reduce the radiation dose to as low as reasonably a chievable. INDICATION: Shortness of breath. COMPARISON: 03/13/2020. FINDINGS: LINES/TUBES: None. PULMONARY ARTERIES: Proximal to the bifu rcation of the main pulmonary artery, the main pulmonary artery is 3.1 cm in diameter. There are numerous filling defects in the bilatera l lobar branches extending into the segmental branches.. LUNGS AND AIRWAYS: Central airways are p atent. Nodular pleural thickening and loculated pleural effusio n are not significant changed. There is unchanged consolidatio n and volume loss in the right middle and right lower lobes. Sharmin pheral focus of consolidation within the left lower lobe. (Axial image 47). PLEURA: There is a moderate loculated ri ght basilar pleural effusion with, pleural catheter in place. Effusio n is unchanged in size.. HEART AND MEDIASTINUM: The visualized th yroid gland is normal. No significant mediastinal, hilar, or axill yessy lymphadenopathy. The heart and pericardium are within normal limits. SOFT TISSUES AND BONES: Degenerative joao nges are noted in the spine. No suspicious osseous lesion.. UPPER ABDOMEN: Stable 4.2 cm left adrena l mass. Partially visualized stent in the proximal descending colon. There is persistent thickening along the surface of the live r suggestive of peritoneal metastatic disease. IMPRESSION: Bilateral acute pulmonary emboli within the lobar and segmental branches in all the lobes. No evidence o f right heart strain. Unchanged appearance of right-sided pleu ral metastatic disease with stable loculated right basilar pleural e ffusion with, pleural catheter in place. Nodular thickening along the surface of the liver suggestive of peritoneal metastatic disease. Unchanged left adrenal mass. New subpleural focus of consolidation in the left lower lobe possibly representing pulmonary infarct or new me tastatic focus. Attention on follow-up imaging is recommended.. D/W Dr. Nolasco at 9:51 PM . Signed: Olga Alamo MD Report Verified Date/Time: 04/22/2020 21:52:23 Reading Location: [address] Reading Room Procedure Note Interface, External Ris In - 04/22/2020 9:54 PM CDT FINAL REPORT TECHNIQUE: CT of the chest WITH intraven ous contrast (pulmonary embolism protocol). Dose modulation, ite rative reconstruction, and/or weight-based adjustment of the mA/kV was utilized to reduce the radiation dose to as low as reasonably a chievable. INDICATION: Shortness of breath. COMPARISON: 03/13/2020. FINDINGS: LINES/TUBES: None. PULMONARY ARTERIES: Proximal to the bifu rcation of the main pulmonary artery, the main pulmonary artery is 3.1 cm in diameter. There are numerous filling defects in the bilatera l lobar branches extending into the segmental branches.. LUNGS AND AIRWAYS: Central airways are p atent. Nodular pleural thickening and loculated pleural effusio n are not significant changed. There is unchanged consolidatio n and volume loss in the right middle and right lower lobes. Sharmin pheral focus of consolidation within the left lower lobe. (Axial image 47). PLEURA: There is a moderate loculated ri ght basilar pleural effusion with, pleural catheter in place. Effusio n is unchanged in size.. HEART AND MEDIASTINUM: The visualized th yroid gland is normal. No significant mediastinal, hilar, or axill yessy lymphadenopathy. The heart and pericardium are within normal limits. SOFT TISSUES AND BONES: Degenerative joao nges are noted in the spine. No suspicious osseous lesion.. UPPER ABDOMEN: Stable 4.2 cm left adrena l mass. Partially visualized stent in the proximal descending colon. There is persistent thickening along the surface of the live r suggestive of peritoneal metastatic disease. IMPRESSION: Bilateral acute pulmonary emboli within the lobar and segmental branches in all the lobes. No evidence o f right heart strain. Unchanged appearance of right-sided pleu ral metastatic disease with stable loculated right basilar pleural e ffusion with, pleural catheter in place. Nodular thickening along the surface of the liver suggestive of peritoneal metastatic disease. Unchanged left adrenal mass. New subpleural focus of consolidation in the left lower lobe possibly representing pulmonary infarct or new me tastatic focus. Attention on follow-up imaging is recommended.. D/W Dr. Nolasco at 9:51 PM . Signed: Olga Alamo MD Report Verified Date/Time: 04/22/2020 2 1:52:23 Reading Location: [facility] [id number] [facility] Reading Room Performing Organization Address City/State/Zipcode Phone Number GE RIS Venous doppler legs bilateral (04/22/2020 9:07 PM CDT) [facility] Sig nature Ejection Fraction [facility] ECHO HEART[facility] [employer] [facility] Specimen Impressions Performed At Right Impression [facility] ECHO HEART[facility] MRI InterventionsCKSift [facility]ON [facility] 1. There is no deep venous obstruction in the common femoral, profunda femoral, femoral, popliteal, posterior tibial or peroneal veins where visualized. 2. There is no superficial venous obstruction in the great saphenous vein where visualized. Left Impression 1. There is no deep venous obstruction in the common femoral, profunda femoral, femoral, popliteal, posterior tibial or peroneal veins where visualized. 2. There is no superficial venous obstruction in the great saphenous vein where visualized. Conclusions Summary Venous duplex imaging and compression of the bilateral lower extremities were performed. The veins were technically difficult to visualize due to edema and patient body habitus. The bilateral venous systems were patent and compressible with no evidence of thrombus where visualized. 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 Indications for Study:Swelling and R/O D VT. Patient Status:STAT. Study Location:Portable. Technical Quality:Technically Difficult. Risk Factors History of Disease + +----+ + !Diagnosis !Date!Comments ! + +----+ + !History/Risk Factors: ! !Morbid Obesity, DM, HTN ! + +----+ + Procedure Note Interface, External Ris In - 04/24/2020 12:12 AM CDT [facility] - Lower Extremities DVT Study Demographics Patient Name SHAI LARA Da te of Study 04/22/2020 Ag e 59 Visit Number [id number] Ge nder Male Accession Number [id number] Da te of 1960 Referring Constance Appiah Ro om Number [id number] Physician Lor Ant[employer] Furn[employer] Restorer Leighton Escobedo In terpreting Marla Garza, Ph ysician Procedure Type of Study: Veins: Lower Extremities DVT Study, RAMIN OUS DOPPLER LEG, BILATERAL. Indications for Study:Swelling and R/O D VT. Patient Status:STAT. Study Location:Portable. Technical Quality:Technically Difficult. Risk Factors History of Disease + +----+--- + !Diagnosis !Date!Com ments ! + +----+--- + !History/Risk Factors: ! !Mor bid Obesity, DM, HTN ! + +----+--- + Impressions Right Impression 1. There is no deep venous obstruction i n the common femoral, profunda femoral, femoral, popliteal, posterior t ibial or peroneal veins where visualized. 2. There is no superficial venous obstru ction in the great saphenous vein where visualized. Left Impression 1. There is no deep venous obstruction i n the common femoral, profunda femoral, femoral, popliteal, posterior t ibial or peroneal veins where visualized. 2. There is no superficial venous obstru ction in the great saphenous vein where visualized. Conclusions Summary Venous duplex imaging and compression o f the bilateral lower extremities were performed. The veins were technica lly difficult to visualize due to edema and patient body habitus. The aidan ateral venous systems were patent and compressible with no evidence of th rombus where visualized. Signature Velocities are measured in cm/s ; Diamet ers are measured in cm Performing Organization Address City/State/Zipcode Phone Number [facility] (04/22/2020 8:42 PM CDT) Narrative Performed At Bijal Nolasco MD 04/22 10:47 PM Critical Care Performed by: Bijal Nolasco MD Authorized by: Bijal Nolasco MD Total critical care time: 30 minutes Critical care time was exclusive of sepa rately billable procedures and treating other patients. Critical care was necessary to treat or prevent imminent or life-threatening deterioration of the fo llowing conditions: respiratory failure and cardiac failure. Critical care was time spent personally by me on the [facility] activities: blood draw for specimens, discussions wi consultants, evaluation of patient's response to treatment, obtaini ng history from patient or surrogate, ordering and review of labora tory studies, pulse oximetry, review of old charts, development of zeenat atment plan with patient or surrogate, discussions with primary prov ider, interpretation of cardiac output measurements, examination of lavelle ent, ordering and performing treatments and interventions, ordering and review of r adiographic studies and re-evaluation of patient's condition . D-dimer, quantitative (04/22/2020 7:37 PM CDT) Pathologist Sig nature D-Dimer, Quant 19.48 (H) <0.50 MG/L FEU [facility] Specimen Blood - Entire right upper arm (body str ucture) Narrative Performed At Intended Use: The D-Dimer Assay can be used [facility] to aid in the diagnosis of Deep Vein Thrombosis (DVT) and Pulmonary Embolism Disease (PED). In patients with low pre-test probability, various studies concerning STA Liatest D-dimer test have reported that with a cutoff value of 0.50 MG/L FEU, the Negative Predictive Value (NPV) regarding the exclusion of thrombosis is within 95-100% range. Performing Organization Address City/State/Zipcode Phone Number [facility] [address] [place] [address] CENTER ANG INTRAPERITONEAL PERMANENT CATHETER (04/07/2020 10:06 AM CDT) Specimen Narrative Performed At FINAL REPORT [facility] Tunneled right pleural catheter insertion, 04/07/2020. History: Recurrent malignant pleural effusion. Modality:Fluoroscopy. Sedation: Versed 1.5 mg and fentanyl 100 mcg was given intravenously for conscious sedation. Vital signs we re monitored throughout the procedure by a nurse, and remained stabl e. Physician intra-service time was 40 minutes. Range Mounter: Nelida. Radial Saw Operator: Nichol. Approach: Right lateral chest. Estimated blood loss: < 1 cc. Specimen: 0.45 liters of serosanguineous fluid. Fluoroscopy Time: 0.6 min. Dose (Ka ,r): 60.1 mGy. Technique: Informed written consent was obtained. Discussion of risks, benefits, and alternatives were m michelle with the patient. The patient expressed understanding and agre ed to proceed. All elements maximal sterile barrier technique was ut ilized for this procedure, including utilization of sterile scrub s olution for skin prep, a large sterile sheet to cover the areas o f the patient that were not prepped, and hand hygiene, mask, head co vering, and sterile gown for performing radiologist and scrub technol ogist. The skin was anesthetized with 2% lidoca ine. The right pleural cavity was accessed using fluoro guidanc e with an 18-gauge angiocath. A Garland wire was advanced through the ca theter and curled within the chest. A subcutaneous tunnel was creat ed in the lateral chest wall by blunt dissection. A Paddy Pleurex catheter was brought through the tunnel. A peel-away sheath was place d into the pleural cavity and the Pleurex catheter was advanced throug h the sheath, with its distal tip terminating in the right medial ches t. The peel-away sheath was removed. The catheter was sutured to t he skin with 2-0 silk to secure its placement. Vacuum bottle was attached to the tube to drain the fluid. Vital signs were monitored th roughout the procedure by a nurse, and remained stable. The patien t tolerated the procedure well and left the department in the same cond ition. Results: Spot radiograph of the chest demonstrates the Jeannette Pleurex catheter to lie in the expected position with its tip overlying the right midlung. Final x-r ay demonstrates significant decrease in right pleural effusion without evidence of pneumothorax. Impression: Successful, uncomplicated placement of a right Paddy Pleurex tunneled catheter using fluoroscopic guidance and cons cious sedation. Signed: Brock Krause MD Report Verified Date/Time: 04/08/2020 14:28:27 Reading Location: [place] [id number] Angio Body Reading Room Procedure Note Interface, External Ris In - 04/08/2020 2:30 PM CDT FINAL REPORT Tunneled right pleural catheter insertio n, 04/07/2020. History: Recurrent malignant pleural eff usion. Modality:Fluoroscopy. Sedation: Versed 1.5 mg and fentanyl 100 mcg was given intravenously for conscious sedation. Vital signs wer e monitored throughout the procedure by a nurse, and remained stabl e. Physician intra-service time was 40 minutes. Range Mounter: Nelida. Radial Saw Operator: Nichol. Approach: Right lateral chest. Estimated blood loss: < 1 cc. Specimen: 0.45 liters of serosanguineous fluid. Fluoroscopy Time: 0.6 min. Dose (Ka,r ): 60.1 mGy. Technique: Informed written consent was obtained. Discussion of risks, benefits, and alternatives were m michelle with the patient. The patient expressed understanding and agre ed to proceed. All elements maximal sterile barrier technique was ut ilized for this procedure, including utilization of sterile scrub s olution for skin prep, a large sterile sheet to cover the areas o f the patient that were not prepped, and hand hygiene, mask, head co vering, and sterile gown for performing radiologist and scrub technol ogist. The skin was anesthetized with 2% lidoca ine. The right pleural cavity was accessed using fluoro guidanc e with an 18-gauge angiocath. A Garland wire was advanced through the ca theter and curled within the chest. A subcutaneous tunnel was create d in the lateral chest wall by blunt dissection. A Jeannette Pleurex c atheter was brought through the tunnel. A peel-away sheath was place d into the pleural cavity and the Pleurex catheter was advanced throug h the sheath, with its distal tip terminating in the right medial ches t. The peel-away sheath was removed. The catheter was sutured to th e skin with 2-0 silk to secure its placement. Vacuum bottle was attached to the tube to drain the fluid. Vital signs were monitored th roughout the procedure by a nurse, and remained stable. The patient tolerated the procedure well and left the department in the same cond ition. Results: Spot radiograph of the chest d emonstrates the Paddy Pleurex catheter to lie in the expected position with its tip overlying the right midlung. Final x-ra y demonstrates significant decrease in right pleural effusion witho ut evidence of pneumothorax. Impression: Successful, uncomplicated placement of a right Jeannette Pleurex tunneled catheter using fluoroscopic mahad dance and conscious sedation. Signed: Brock Krause MD Report Verified Date/Time: 04/08/2020 1 4:28:27 Reading Location: [place] [address] Angio Body Reading Room Performing Organization Address City/State/Zipcode Phone Number GE RIS POC-Creatinine (01/18/2020 7:59 AM CDT) POC-Creatinine 0.9Comment: : 0.6 - 1.3 [facility] TESTED AT [facility] mg/dL [facility] [address] [facility] [id number]: Dehydrogenation Operator Head/Technicia n ID = [id number] for YULISSA MARY POC-EGFR 105 mL/min/1.73M2 [facility] Specimen Blood Performing Organization Address City/State/Zipcode Phone Number [facility] [address] [place] [address] CENTER after 11/01/2019 Advance Directives For more information, please contact: [phone] Code Status Date Activated Date Inactivated Comments Full Code 09/30/2020 1:16 PM 10/02/2020 7:51 PM This code status was determined by: Patient Full Code 09/30/2020 6:06 AM 09/30/2020 1:16 PM This code status was determined by: Patient Full Code 08/20/2020 8:39 PM 08/22/2020 6:52 PM This code status was determined by: Patient Full Code 04/22/2020 7:09 PM 04/22/2020 7:09 PM This code status was determined by: Patient Full Code 04/07/2020 10:28 AM 04/11/2020 12:48 PM This code status was determined by: Patient
--- OUTSIDE RECORDS SUMMARY | 2020-11-01 22:15 | XMS REPORT | Continuity of Care Document ---
:1960 Author Organization [facility] t Address [address] [place] [address] Dr. [address] [place] [address] Care Team Providers Name Role Phone Adryan Santiago Kylie Primary Care Physician Altaf TORRE Attending Clinician Maile Bennett NP Attending Clinician Fredi TORRE Attending Clinician Lilibeth LINN-Roberta Oliver Attending Clinician Altaf TORRE Attending Clinician Roberta Mcelroy Attending Clinician SALVADOR RAI Attending Clinician Unavailable Salvador Rai MD Attending Clinician Shana TORRE Attending Clinician Efe Figueredo MD Attending Clinician Benny Florez MD Attending Clinician Janie Siwft Attending Clinician Sharron TORRE Attending Clinician Clark Sands MD Attending Clinician Alex TORRE Attending Clinician Joaquin Mason MD Attending Clinician Stefanie Sneed CRNA Attending Clinician Ron Sands MD Attending Clinician SHARRON Attending Clinician Unavailable Ashvin Lobo MD Attending Clinician ALTAF Attending Clinician Unavailable Gilbert TORRE, Alireza Attending Clinician Eusebio TORRE Attending Clinician , [address] Room Attending Clinician Unavailable Donald LINN, Maile Attending Clinician Lor Goldberg MD Attending Clinician Caridad Preston MD Attending Clinician Marguerite TORRE Attending Clinician Ariadna Young MD Attending Clinician LOR GOLDBERG Attending Clinician Unavailable Johny TORRE Attending Clinician TATY IRIZARRY Attending Clinician Unavailable Kaykay ODONNELL Attending Clinician Carolyne TORRE Attending Clinician BRYANT SPARKS Attending Clinician Unavailable Mc ALVARADO Attending Clinician Unavailable SALVADOR RAI Admitting Clinician Unavailable CLARK SANDS Admitting Clinician Unavailable ALTAF Admitting Clinician Unavailable SANTOSH Admitting Clinician Unavailable MARGUERITE Admitting Clinician Unavailable BRYANT SPARKS Admitting Clinician Unavailable Mc ALVARADO Admitting Clinician Unavailable Payers Payer Name Policy Type Policy Effective Date Expiration Date [facility] Number AMBETTERAMBETTER [id number] 2020 SABINO Carrion [id number] 00:00:00 - Medical /2019-Present Center Problems Condition Condition Condition Status Onset Resolution Last Treating Co mments Source Name Details Category Date Date Treatment Clinician Date 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[address] [facility] 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 00:00: Medi jessica pleural pleural 00 Center effusion effusion s/p R VATS s/p R VATS decorticat decorticat ion, ion, pleural pleural biopsy biopsy 09/30/2020 09/30/2020 Multiple Multiple Disease [facility] sub[facility] subsegment 7-22 [facility] - al al 00:00: Medical pulmonary pulmonary 00 Cent er emboli emboli without without acute cor acute cor pulmonale pulmonale Colon Colon Disease Active 2017-[address] [facility] [address] adenocarci adenocarci 2-09 [facility] k[facility] - noma noma 00:00: Medical 00 Center Benign Benign Disease Active 2017-[address] [facility] prostatic prostatic 0-14 [facility] - hyperplasi hyperplasi 00:00: Me dical a a 00 Center Diabetes Diabetes Disease Active 2017-[facility] mellitus mellitus 0-14 [facility] Medical 00 [place] Essential Essential Disease Active 2017-[address] [facility] [address] hypertensi hypertensi 0-14 [facility] - on on 00:00: Medical 00 Center Descending Descending Disease Active 2017-[address] colon CA colon CA 0-14 [facility] - s/p GI s/p GI 00:00: Medical stent stent 00 [place] 07/15/18 07/15/18 Large Large Disease Active 2017-[address] [facility] [address] bowel bowel 0-14 [facility] - obstructio obstructio 00:00: Nv dical n n 00 Center Hypokalemi Hypokalemi Disease Active 2017-[address] a a 0-14 [facility] - 00:00: Medical 00 [place] Morbid Morbid Disease Active 2017-[address] [facility] obesity obesity 0-13 [facility] - 00:00: Medical 00 [place] Pneumonia Pneumonia Disease Active 2017-[address] [facility] 0-12 [facility] - 00:00: Medical 00 Center History of History of Disease Active [facility] gout gout 4-11 [facility] - 00:00: Medical 00 Center Adrenal Adrenal Disease Active [facility] mass, left mass, left 4-18 [facility] - 00:00: Medical 00 [place] Pleural Pleural Disease Resolve 2019-102020-10-01 2020-10-[address] effusion, effusion, d 2- 00:00:00 10:41:37 [facility] - right right 00:00: Medical 00 [place] Generalize Generalize Disease Resolve 2019-102020-10-01 2020-10-[address] d d d - 00:00:00 10:41:57 [facility] - abdominal abdominal 00:00: Medi jessica pain pain 00 Center History of Past Illness Condition Condition Condition Status Onset Resolution Last Treating Co mments Source Name Details Category Date Date Treatment Clinician Date Acute Acute Disease Resolve 2020-10-01 2020-10-[address] [facility] [address] chest pain chest pain d 7- 00:00:00 10:41:56 [facility] - 00:00: Medical 00 Center SOB SOB Disease Resolve 2020-10-01 2020-10-[address] (shortness (shortness d 10-23 00:00:00 10:41:59 [facility] - of breath) of breath) 00:00: Me dical 00 [place] Recurrent Recurrent Disease Resolve 2020-10-01 2020-10-[address] pleural pleural d 10-23 00:00:00 10:41:52 [facility] - effusion effusion 00:00: Medica l on right on right 00 [place] Allergies, Adverse Reactions, Alerts This patient has no known allergies or adverse reactions. Family History Family Member Diagnosis Comments Start Date Stop Date Source Natural father [facility] Social History Social Habit Start Date Stop Date Quantity Comments Source History of Current smoker [facility] tobacco use [facility] Cente r Sex Assigned At [facility] Tobacco use and 2020-10-01 2020-10-[address] [facility] - exposure 00:00:00 00:00:00 [facility] Alcohol intake 2020-10-01 2020-10-01 Current drinker [facility] - 00:00:00 00:00:00 of alcohol [facility] Center (finding) Alcohol Comment 2019-10-23 2019-10-[address] [facility] - 00:00:00 00:00:00 [facility] Smoking Status Start Date Stop Date Source Former smoker 2020-10-01 00:00:00 2020-10-01 00:00:00 [facility] Medications Ordered Filled Start Stop Current Ordering Indication Dosage Frequency Signature Comments Components Source Medication Medication Date Date Medication? Clinician (SIG) Name Name tamsulosin 2019-10 Yes .4mg QD Take 0.[address] [facility] (FLOMAX) 2-31 mg by [facility] - 0.4 mg Cap 17:51: mouth Medica l 24 hr 38 daily. [place] capsule glimepiride 2019-10 Yes 4mg Take [address] (AMARYL) 4 2-31 by mouth [facility] - MG tablet 17:51: every Medical 38 morning Center before breakfast. linaGLIPtin 2019-10 Yes 5mg QD Take [address] (TRADJENTA) 2-31 by mouth [facility] - 5 mg Tab 17:51: daily. Medical 38 Center morphine 2019-10 Yes 15mg Q.5D Take [address] (MS CONTIN) 2-31 by mouth 2 Niecy kes - 15 MG 12 hr 17:51: (two) Medic al tablet 38 times Center daily . enoxaparin 2019-10 Yes deep venous 120mg Q.5D Inject [address] (LOVENOX) 2-31 thrombosis mg [facility] - 120 mg/0.8 17:51: subcutaneo M edical mL Syrg 38 usly 2 Center (two) times daily. HYDROcodone 2019-10 2020- No 1{tbl} Take [address] -acetaminop 2-31 12-31 tablet by Niecy mixon ([employer] 16:16: 00:00 mouth Medic al 10-325) 15 :00 every 6 Center 10-325 mg (six) per tablet hours as needed for Pain . HYDROcodone 2019-10 Yes 1{tbl} Take [address] -acetaminop 2-31 tablet by Amy mixon ([employer] 00:00: mouth Medica l 10-325) 00 every 4 Center 10-325 mg (four) per tablet hours as needed for Pain. Max Daily Amount: 6 tablets gabapentin 2019-10- No 300mg [id number] Take [address] (NEURONTIN) 2-31 -14 [id number] capsule [facility] - 300 MG 00:00: 23:59 3D (300 mg Medical capsule 00 :00 total) by Center mouth 3 (three) times daily for 14 days. amoxicillin 2019-10- No 1{tbl} Take [address] -clavulanat 2-31 01-05 tablet by Niecy tolbert 00:00: 23:59 mouth Medical (AUGMENTIN) 00 :00 every 12 Cent er 875-125 mg (twelve) per tablet hours for 5 days. metoprolol 2019-10- Yes 25mg Q.5D Take [address] succinate 1-20 11-20 tablet (25 Amy es - (TOPROL-XL) 00:00: 23:59 mg total) Medical 25 MG 24 hr 00 :00 by mouth 2 Ce nter tablet (two) times daily. polyethylen 2019-10- No 17g QD Take [address] e glycol 1-20 12-20 by mouth [facility] - (GLYCOLAX) 00:00: 23:59 daily for M edical 17 gram 00 :00 30 days. Center packet amLODIPine 2019- No 10mg QD Take [address] [facility] (NORVASC) 04-28 by mouth [facility] - 10 MG 07:49: 00:00 daily. Medical tablet 09 :00 Center digoxin 2019- No 125ug QD Take [address] [facility] (LANOXIN) 04-28 10-25 tablet [facility] - 0.125 MG 00:00: 23:59 (125 mcg Medi jessica tablet 00 :00 total) by Center mouth daily for 90 days. metoprolol 2019- No 50mg QD Take [address] succinate 04-28 10-25 tablets [facility] - (TOPROL-XL) 00:00: 23:59 (50 mg Med ical 25 MG 24 hr 00 :00 total) by [facility] ter tablet mouth daily for 90 days. digoxin 2019- No 125ug QD Take [address] (LANOXIN) 04-28 tablet [facility] - 0.125 MG 00:00: 00:00 (125 mcg Medi jessica tablet 00 :00 total) by Center mouth daily. metoprolol 2019- No 25mg QD Take [address] succinate 04-28 tablet (25 Amy es - (TOPROL-XL) 00:00: 00:00 mg total) Medical 25 MG 24 hr 00 :00 by mouth Cent er tablet daily. enoxaparin 2019- No 150mg Inject [facility] (LOVENOX) 04-27 0.97 mLs [facility]ukes - 150 mg/mL 00:00: 00:00 (150 mg Medi jessica injection 00 :00 total) Center subcutaneo usly every 12 (twelve) hours for 90 days. enoxaparin 2019- No 150mg Inject [facility] (LOVENOX) 04-25- 0.97 mLs [facility] - 150 mg/mL 00:00: 00:00 (150 mg Medi jessica injection 00 :00 total) Center subcutaneo usly every 12 (twelve) hours for 90 days. furosemide Yes 40mg QD Take 2 [facility] (LASIX) 20 1-25 tablets [facility] - MG tablet 00:00: (40 mg Medica l 00 total) by Center mouth daily. senna-docus No 1{tbl} QD Take [address] ate 10-27 tablet by [facility]ukes - (SENOKOT S) 00:00: 23:59 mouth Medi jessica 8.6-50 mg 00 :00 nightly. Center per tablet aspirin 81 No 81mg QD Take [address] [facility] MG EC 10-27 tablet (81 [facility] - tablet 00:00: 23:59 mg total) Medic al 00 :00 by mouth Center daily. traMADol No 50mg Take [address] [facility] [facility] (ULTRAM) 50 10-27 tablet (50 L ukes - mg tablet 00:00: 00:00 mg total) Me dical 00 :00 by mouth Center every 6 (six) hours as needed. Max Daily Amount: 200 mg metoprolol 2019- No 25mg Q.5D Take [address] (LOPRESSOR) 10-27-27 tablet (25 L ukes - 25 MG 00:00: 00:00 mg total) Medica l tablet 00 :00 by mouth 2 Center (two) times daily. sotalol AF No 80mg Q.5D Take [address] (BETAPACE 10-27- tablet (80 Amy es - AF) 80 MG 00:00: 00:00 mg total) Me dical tablet 00 :00 by mouth 2 Center (two) times daily. Immunizations Ordered Immunization Filled Immunization Date Status Commen ts Source Name Name Pneumococcal 2018-07-[address] [facility] - Conjugate (Prevnar) 00:00:00 Medic al Center 13-Valent Influenza Four-QIV 2018-07-[address] [facility] - Non-PF 5+ YR 00:00:00 Medical Cent er Vital Signs Vital Name Observation Time Observation Value Comments Source Systolic blood 2020-10-02 15:18:00 111 mm[Hg] [facility] Diastolic blood 2020-10-02 15:18:00 56 mm[Hg] [facility] Heart rate 2020-10-02 15:18:00 101 /min [facility] Body temperature 2020-10-02 15:18:00 37.39 Stefany [facility] Respiratory rate 2020-10-02 15:18:00 18 /min [facility] Oxygen saturation in 2020-10-02 15:18:00 100 /min [facility] - Arterial blood by Medical Ce nter Pulse oximetry Body weight 2020-10-02 08:50:00 117.8 kg [facility] BMI 2020-10-02 08:50:00 36.22 kg/m2 [facility] Body height 2020-09-30 05:41:00 180.3 cm [facility] Procedures Procedure Date / Time Performing Clinician Source Performed XR CHEST 2 VIEWS 2020-10-09 07:51:00 Rina Mcelroy [facility] POCT-GLUCOSE METER 2020-10-02 16:38:00 Tarun Rai [facility] POCT-GLUCOSE METER 2020-10-02 13:11:00 Tarun Rai [facility] XR CHEST 1 VIEW 2020-10-02 10:58:00 Twila Ellis [facility] PORTABLE/BEDSIDE [facility] XR CHEST 1 VIEW 2020-10-02 06:47:00 Twila Ellis [facility] PORTABLE/BEDSIDE [facility] BASIC METABOLIC PANEL (7) 2020-10-02 04:16:00 Twila Ellis [facility] MAGNESIUM 2020-10-02 04:16:00 Twila Ellis [facility] CBC W/PLT COUNT & AUTO 2020-10-02 04:16:00 Twila Ellis [facility] DIFFERENTIAL [facility] (CELLAVISION MANUAL DIFF) 2020-10-02 04:16:00 Twila Ellis [facility] PREPARE LEUKO-REDUCED RBC 2020-10-01 23:54:00 Noé Aryacasey [facility] POCT-GLUCOSE METER 2020-10-01 11:22:00 [facility] 2020-10-01 07:30:00 [facility] BASIC [facility]OLIC PANEL (7) 2020-10-01 04:04:00 Twila Ellis [facility] MAGNESIUM 2020-10-01 04:04:00 [facility] W/[facility]T [facility] & AUTO 2020-10-01 04:04:00 Snads [facility] (CELLAVISION MANUAL DIFF) 2020-10-01 04:04:[address] [facility] [place] XR CHEST 1 VIEW 2020-10-01 01:09:00 Twila Ellis [facility] - PORTABLE/BEDSIDE [facility] POCT-GLUCOSE METER 2020-09-30 23:48:00 Tarun Rai [facility] CBC (HEMOGRAM ONLY) 2020-09-30 22:58:00 Twila Ellis [facility] TRANSFUSE LEUKO-REDUCED 2020-09-30 21:37:[address] [facility] - RED BLOOD CELLS [facility] TROPONIN I 2020-09-30 18:04:00 Twila Ellis [facility] BASIC METABOLIC PANEL (7) 2020-09-30 18:04:00 Twila Ellis [facility] MAGNESIUM 2020-09-30 18:04:00 Twila Ellis [facility] PREPARE LEUKO-REDUCED RBC 2020-09-30 17:58:00 Twila Ellis [facility] ECG 12-LEAD 2020-09-30 17:14:05 Unknown, Hl7 [facility] ECG 12-LEAD 2020-09-30 17:13:49 Twila Ellis [facility] POCT-GLUCOSE METER 2020-09-30 16:34:00 Tarun Rai [facility] HEMOGLOBIN AND HEMATOCRIT 2020-09-30 16:31:00 Twila Ellis [facility] POCT-GLUCOSE METER 2020-09-30 13:51:00 Tarun Rai [facility] HGB/HCT (H&H) - STAT LAB 2020-09-30 11:57:00 Tarun Rai [facility] CT CHEST WITHOUT IV 2020-09-30 11:11:00 April Ramírez [facility] XR CHEST 1 VIEW 2020-09-30 10:30:00 Noé [facility] - PORTABLE/BEDSIDE [facility] GLUCOSE 2020-09-30 10:15:00 [facility] POT[facility]SIUM 2020-09-30 10:15:00 Saldana [facility] HEMOGLOBIN AND HEMATOCRIT 2020-09-30 10:15:00 [facility] CBC (HEMOGRAM ONLY) 2020-09-30 10:15:[address] [facility] [place] BASIC METABOLIC PANEL (7) 2020-09-30 10:15:[address] [facility] [place] PHOSPHORUS 2020-09-30 10:15:00 Noé [facility] MAGNESIUM 2020-09-30 10:15:00 Noé [facility] PT/APTT 2020-09-30 10:15:00 [facility]ON[facility]ED 2020-09-30 10:15:00 oNé [facility] TISSUE EXAM 2020-09-30 09:05:00 Tarun Rai [facility] GLUCOSE-STAT LAB 2020-09-30 08:59:45 Shana [facility] HGB/HCT (H&H) - STAT LAB 2020-09-30 08:59:45 Lenora Saldana [facility] POCT-GLUCOSE METER 2020-09-30 07:26:00 Tarun Rai [facility] BRONCHOSCOPY 2020-09-30 07:09:00 Tarun Rai [facility] THORACOSCOPY (VATS) 2020-09-30 07:09:00 Fredi Tarun Salvador [facility] POCT-GLUCOSE METER 2020-09-30 05:42:00 Fredi Tarun [facility] XR CHEST 2 VIEWS 2020-09-29 12:19:00 Lalita Quintanilla [facility] TYPE AND SCREEN, AUTOMATED 2020-09-29 11:52:00 Lalita Quintanilla and [facility] SARS-COV2/RT-PCR ([facility] & 2020-09-29 11:47:[address] [facility] - REF LABS) [facility] POCT-GLUCOSE METER 2020-08-22 09:17:00 Samir [facility] BASIC METABOLIC PANEL (7) 2020-08-22 06:22:00 Daiana Hartman sa [facility] CBC W/PLT COUNT & AUTO 2020-08-22 06:22:00 Daiana Hartman [facility] POCT-GLUCOSE METER 2020-08-21 21:18:00 [facility]-GLU[facility]SE METER 2020-08-21 15:26:00 Samir [facility] REPORT OF PROCEDURE - 2020-08-21 14:17:41 Julius Sands I [facility] ENDOSCOPY [facility] [place] FLUORO NON-SPECIFIC UP 2020-08-21 13:55:[address] [facility] - TO 1 HOUR [facility] SIGMOIDOSCOPY,FLEX W/STENT 2020-08-21 12:55:00 Julius Sands [facility] PROCEDURE W/ C-ARM 2020-08-21 12:55:00 Julius Sandsu [facility] POCT-GLUCOSE METER 2020-08-21 07:29:00 Samir [facility] BASIC METABOLIC PANEL (7) 2020-08-21 05:31:00 Swati Ralph [facility] CBC W/PLT COUNT & AUTO 2020-08-21 05:31:00 Swati Ralph [facility] DIFFERENTIAL [facility] ECG 12-LEAD 2020-08-20 12:53:13 Unknown, Hl7 [facility] SARS-COV2/RT-PCR ([facility] & 2020-08-20 12:41:00 Daiana Hartman [facility] REF LABS) [facility] CT ABDOMEN/PELVIS WITH IV 2020-08-20 11:53:00 Wojciech Mcdermott [facility] COMPREHENSIVE METABOLIC 2020-08-20 10:07:00 Sharron [facility] LIPASE 2020-08-20 10:07:00 Sharron [facility] LACTIC ACID, VENOUS 2020-08-20 10:07:00 Sharron [facility] URINALYSIS W/ REFLEX URINE 2020-08-20 10:07:00 Wojciech Mcdermott [facility] TROPONIN I 2020-08-20 10:07:00 Sharron [facility] CBC W/PLT COUNT & AUTO 2020-08-20 10:07:00 Sharron [facility] ED ECG INTERPRETATION 2020-08-20 09:50:55 Sharron [facility] ECG 12-LEAD 2020-08-20 09:44:38 Unknown, Hl7 [facility] REPORT OF PROCEDURE - 2020-08-20 00:00:00 Provider, Germaine [facility] - ENDOSCOPY SCAN Scanning [facility] XR CHEST 1 VIEW 2020-06-16 11:23:00 Kyle Solitario [facility] PORTABLE/BEDSIDE Medical Center IR REMOVAL INDWELLING 2020-06-16 09:30:00 Miguel Bennett [facility] TUNNELED PLEURAL CATH Medical nter W/CUFF APTT 2020-06-16 08:25:00 Sheila Guerra [facility] PROTHROMBIN TIME/INR 2020-06-16 08:25:00 Sheila Guerra [facility] CBC W/PLT COUNT & AUTO 2020-06-16 08:25:00 Sheila Guerra [facility] CT CHEST WITH IV CONTRAST 2020-06-05 09:25:00 Kyle Solitario [facility] CT ABDOMEN/PELVIS WITH IV 2020-06-05 09:25:00 Kyle Solitario [facility] XR CHEST 2 VIEWS 2020-05-12 13:29:00 Kyle Solitario [facility] RHYTHM STRIP - SCAN 2020-04-29 14:02:04 Germaine Meyer [facility] POCT-GLUCOSE METER 2020-04-28 11:11:00 Gumaro [facility] POCT-GLUCOSE METER 2020-04-28 09:01:00 Marguerite [facility] MAGNESIUM 2020-04-28 05:15:00 Norberto [facility] PHOSPHORUS 2020-04-28 05:15:00 Norberto [facility] CBC (HEMOGRAM ONLY) 2020-04-28 05:15:00 George [facility] BASIC METABOLIC PANEL (7) 2020-04-28 05:15:00 George [facility] POCT-GLUCOSE METER 2020-04-27 21:30:00 Omiunliane [facility] POCT-GLUCOSE METER 2020-04-27 16:55:00 Omiunliane [facility] POCT-GLUCOSE METER 2020-04-27 11:05:00 Civunluzcorazonmarleen [facility] POCT-GLUCOSE METER 2020-04-27 07:49:00 Civjacquiemarisola, [facility] MAGNESIUM 2020-04-27 06:44:00 [facility]US 2020-04-27 06:44:00 Norberto [facility] BASIC METABOLIC PANEL (7) 2020-04-27 06:44:00 Alber Vazquez [facility] POCT-GLUCOSE METER 2020-04-26 21:10:00 [facility] PO[facility]SE [facility] 2020-04-26 18:00:00 [facility] POCT-GLUCOSE METER 2020-04-26 12:48:00 [facility] POCT-GLUCOSE METER 2020-04-26 08:37:00 Marthaluztom [facility] MAGNESIUM 2020-04-26 06:02:00 Norberto [facility] PHOSPHORUS 2020-04-26 06:02:00 Norberto [facility] DIGOXIN LEVEL 2020-04-26 06:02:00 Blas Freitas [facility] POCT-GLUCOSE METER 2020-04-25 22:12:00 Civunigunta, [facility] POCT-GLUCOSE METER 2020-04-25 16:03:00 Civunigunta, [facility] POCT-GLUCOSE METER 2020-04-25 12:35:00 [facility] HEPARIN ASSAY - LOW 2020-04-25 10:00:00 Margarito Preston I [facility] POCT-GLUCOSE METER 2020-04-25 08:42:00 [facility] POCT-GLUCOSE METER 2020-04-25 05:24:00 Zhou Blake [facility] BASIC METABOLIC PANEL (7) 2020-04-25 05:02:00 Tamra Winston [facility] MAGNESIUM 2020-04-25 05:02:00 Norberto [facility] PHOSPHORUS 2020-04-25 05:02:00 Norberto [facility] CBC W/PLT COUNT & AUTO 2020-04-25 05:02:00 Tamra Winston [facility] POCT-GLUCOSE METER 2020-04-24 23:26:00 [facility]ER 2020-04-24 11:00:[address] [facility] POCT-GLUCOSE METER 2020-04-24 05:52:[address] [facility] BASIC METABOLIC PANEL (7) 2020-04-24 03:21:00 Tamra Winston [facility] MAGNESIUM 2020-04-24 03:21:00 Norberto [facility] PHOSPHORUS 2020-04-24 03:21:00 Norberto [facility] TSH/FREE T4 IF INDICATED 2020-04-24 03:21:00 Audelia [facility] HEMOGLOBIN A1C 2020-04-24 03:21:00 Blas Freitas [facility] CBC W/PLT COUNT & AUTO 2020-04-24 03:21:00 Tamra Winston [facility] POCT-GLUCOSE METER 2020-04-24 02:15:[address] [facility] HEPATIC FUNCTION PANEL 2020-04-23 20:21:00 Audelia [facility] B-TYPE NATRIURETIC FACTOR 2020-04-23 20:21:00 Jayjay Aldrich [facility] (BNP) [facility] TROPONIN I 2020-04-23 20:21:00 Jayjay Aldrich [facility] ECG 12-LEAD 2020-04-23 18:52:30 Unknown, Hl7 Doctor [facility] ECG 12-LEAD 2020-04-23 18:49:58 Unknown, Hl7 Doctor [facility] POCT-GLUCOSE METER 2020-04-23 16:52:00 [facility] PT[facility]TT 2020-04-23 10:37:00 BryonAbe vides [facility] PROCALCITONIN 2020-04-23 09:17:00 Nikki Dimas [facility] POCT-GLUCOSE METER 2020-04-23 09:15:00 Constance [facility] APTT 2020-04-23 05:05:00 Constance [facility] BASIC METABOLIC PANEL (7) 2020-04-23 05:04:00 Tamra Winston [facility] MAGNESIUM 2020-04-23 05:04:00 Norberto [facility] PHOSPHORUS 2020-04-23 05:04:00 Norberto [facility] CBC W/PLT COUNT & AUTO 2020-04-23 05:04:00 [facility] 2D ECHO W/ DOPPLER 2020-04-23 02:09:23 [facility] BLOOD GAS, ARTERIAL 2020-04-23 01:01:[address] [facility] LACTIC ACID, VENOUS 2020-04-22 22:32:00 Constance [facility] APTT 2020-04-22 22:32:00 Hortensia [facility] BLOOD CULTURE 2020-04-22 22:31:00 [facility] TROPONIN I 2020-04-22 22:31:00 [facility] [facility] CBC (HEMOGRAM ONLY) 2020-04-22 22:31:00 Bijal Goldberg [facility] CT CHEST PE TEST DESIGN 2020-04-22 21:42[facility]00 [facility] DOPPLER LEGS 2020-04-22 21:07:00 Bijal Goldberg [facility] BILATERAL [facility] CRITICAL CARE 2020-04-22 20:42:13 Bijal Goldberg [facility] SARS-COV2/RT-PCR ([facility] & 2020-04-22 20:41[facility]00 [facility] D-DIMER 2020-04-22 19:37:00 [facility] BASIC METABOLIC PANEL (7) 2020-04-22 19:37:00 Bijal Goldberg [facility] LACTIC ACID, VENOUS 2020-04-22 19:37:00 Bijal Goldberg [facility] PT/APTT 2020-04-22 19:37:00 Constance [facility] B-TYPE NATRIURETIC FACTOR 2020-04-22 19:37:00 Bijal Goldberg [facility] (BNP) [facility] TROPONIN I 2020-04-22 19:37:00 [facility] W/PLT COUNT & AUTO 2020-04-22 19:37:00 Bijal Goldberg [facility] DIFFERENTIAL [facility] XR CHEST 1 VIEW 2020-04-22 19:16:[address] [facility] - PORTABLE/BEDSIDE [facility] ECG 12-LEAD 2020-04-22 18:25:30 Unknown, Hl7 [facility] IR TUNNELED CATH 2020-04-07 10:06:00 Kyle Solitario [facility] PROTHROMBIN TIME/INR 2020-04-07 06:43:00 Sheila [facility] APTT 2020-04-07 06:43:00 KaushalshadySheila [facility] CBC W/PLT COUNT & AUTO 2020-04-07 06:43:00 KaushalshadySheila [facility] CT ABDOMEN/PELVIS WITH IV 2020-03-13 07:23:00 Kyle Solitario [facility] CT CHEST WITH IV CONTRAST 2020-03-13 07:23:00 Kyle Solitario [facility] CT CHEST WITH IV CONTRAST 2020-01-18 08:20:00 Kyle Solitario [facility] CT ABDOMEN/PELVIS WITH IV 2020-01-18 08:20:00 Kyle Solitario [facility] POCT-CREATININE 2020-01-18 07:59:00 Kyle Solitario [facility] Plan of Care Planned Activity Planned Date Details Comments Source Future Scheduled 2028-09-[address] [facility] - Test 00:00:00 malignant neoplasm of [facility] colon (procedure) [code = 550279511] Future Scheduled 2022-05-[address] - Test 00:00:00 (procedure) [code = [facility] 14462938] Future Scheduled 2020-10-[address] - Test 00:00:00 measurement [facility] (procedure) [code = 65931315] Future Scheduled 2020-10-[address] [facility] - Test 00:00:00 (12+) [code = [facility] Center DEPRESSION SCREENING (12+)] Future Scheduled 2020-06-03 INFLUENZA VACCINE (#1) [facility] Test 00:00:00 [code = INFLUENZA Medical nter VACCINE (#1)] Future Scheduled 2020-05-23 Urine screening for [facility] - Test 00:00:00 protein (procedure) [facility] [code = 693043449] Future Scheduled 2018-09-[address] [facility] - Test 00:00:00 0-64 YRS (1 of 1 - Medical C enter PPSV23) [code = PNEUMOCOCCAL VACCINE 0-64 YRS (1 of 1 - PPSV23)] Future Scheduled 1978 HEPATITIS C [facility] Test 00:00:00 [code = HEPATITIS C [facility] Center SCREENING] Future Scheduled 1970 DIABETIC EYE EXAM [facility] - Test 00:00:00 [code = DIABETIC EYE [facility] EXAM] Future Scheduled [address] - Test 00:00:00 examination Medical Center (regime/therapy) [code = 154680243] Future Scheduled 1967-12-12 DTAP/TDAP/TD VACCINES [facility] Test 00:00:00 (1 - Tdap) [code = Medical C enter DTAP/TDAP/TD VACCINES (1 - Tdap)] Encounters Start End Encounter Admission Attending Care Care Encounter Source Date/Time Date/Time Type Type Clinicians Facility Department ID 2020-10-27 2020-10-27 Office KAREN Bennett 1.2.840.114 [id number] 07:40:19 09:59:48 Visit Miguel Villa 350.1.13.21 [place] 0.2.7.2.686 [id number] 530 2020-10-23 2020-10-23 Office SHANICE Rai 1.2.840.114 [id number] 07:37:27 07:52:27 Visit Tarun AMBULATOR 350.1.13.21 Y 0.2.7.2.686 [id number] 2020-10-15 2020-10-15 Office SHANICE Mcelroy 1.2.840.114 [id number] 08:32:53 08:47:53 Visit Rina Granados AMBULATOR 350.1.13.21 Y 0.2.7.2.686 [id number] 2020-10-13 2020-10-13 Office SHANICE Mcelroy 1.2.840.114 [id number] 08:02:20 13:44:23 Visit Rina Granados AMBULATOR 350.1.13.21 Y 0.2.7.2.686 [id number] 2020-10-13 2020-10-13 Office KAREN Solitario 1.2.840.114 [id number] 09:10:38 11:10:40 Visit Kyle Daisy 350.1.13.21 0.2.7.2.686 [id number] 530 2020-10-09 2020-10-09 Office SHANICE Rai 1.2.840.114 [id number] 08:03:42 11:34:59 Visit Tarun AMBULATOR 350.1.13.21 Y 0.2.7.2.686 [id number] 810 2020-09-18 2020-09-18 Office SHANICE Rai 1.2.840.114 [id number] 14:05:33 16:28:30 Visit Tarun AMBULATOR 350.1.13.21 Y 0.2.7.2.686 [id number] 2020-09-18 2020-09-18 Office Niesha Florez [facility] 1.2.840.114 [id number] 13:03:03 16:27:09 Visit Benny AMBULATOR 350.1.13.21 Y 0.2.7.2.686 [id number] 2020-09-15 2020-09-15 Office Altaf [facility] 1.2.840.114 [id number] 08:20:44 08:40:44 Visit Kyle GonzalezNair 350.1.13.21 0.2.7.2.686 [id number] 530 2020-09-01 2020-09-01 Office Altaf [facility] 1.2.840.114 [id number] 08:27:37 08:47:37 Visit Kyle Daisy 350.1.13.21 0.2.7.2.686 [id number] 530 2020-08-11 2020-08-11 Office Altaf [facility] 1.2.840.114 [id number] 07:56:03 08:16:03 Visit Kyle Daisy 350.1.13.21 0.2.7.2.686 [id number] 530 2020-07-31 2020-07-31 Office Niesha Florez [facility] 1.2.840.114 [id number] 12:31:07 16:10:42 Visit Benny AMBULATOR 350.1.13.21 Y 0.2.7.2.686 [id number] 2020-07-30 2020-07-30 Office SHANICE Lobo 1.2.840.114 [id number] 08:44:23 09:04:23 Visit Mihail AMBULATOR 350.1.13.21 Ashvin Y 0.2.7.2.686 [id number] 375 2020-07-28 2020-07-28 Office [facility] 1.2.840.114 [id number] 07:55:26 08:15:26 Visit Kyle Daisy 350.1.13.21 0.2.7.2.686 [id number] 530 2020-07-14 2020-07-14 Office SAMSON SolitarioBenito 1.2.840.114 [id number] 08:23:29 08:43:29 Visit Kyle Daisy 350.1.13.21 0.2.7.2.686 [id number] 530 2020-06-30 2020-06-30 Office Niesha Florez [facility] 1.2.840.114 [id number] 14:43:40 16:30:13 Visit Benny AMBULATOR 350.1.13.21 Y 0.2.7.2.686 [id number] 380 2020-06-30 2020-06-30 Office SAMSON BennettBenito 1.2.840.114 [id number] 08:36:48 09:57:06 Visit Miguel GonzalezNair 350.1.13.21 Maile 0.2.7.2.686 [id number] 530 2020-06-10 2020-06-10 Office SHANICE Kaplan 1.2.840.114 [id number] 09:12:52 15:33:28 Visit Torre AMBULATOR 350.1.13.21 Y 0.2.7.2.686 [id number] 315 2020-06-10 2020-06-10 Office SAMSON SolitarioBenito 1.2.840.114 [id number] 07:49:33 08:09:33 Visit Kyle Daisy 350.1.13.21 0.2.7.2.686 [id number] 530 2020-05-28 2020-05-28 Office Lasehll, SHANICE 1.2.840.114 [id number] 07:57:22 14:16:45 Visit Kelly AMBULATOR 350.1.13.21 Ashvin Srinivas 0.2.7.2.686 [id number] 375 2020-05-26 2020-05-26 Office Altaf [facility] 1.2.840.114 [id number] 08:00:00 08:20:00 Visit Kyle Gracer 350.1.13.21 0.2.7.2.686 [id number] 530 2020-05-12 2020-05-12 Office Altaf [facility] 1.2.840.114 [id number] 07:59:35 08:19:35 Visit Kyle GonzalezNair 350.1.13.21 0.2.7.2.686 [id number] 530 2020-04-30 2020-04-30 Office Donald [facility] 1.2.840.114 [id number] 07:54:09 08:24:09 Visit Miguel GonzalezNair 350.1.13.21 Maile 0.2.7.2.686 [id number] 530 2020-04-14 2020-04-14 Office Altaf [facility] 1.2.840.114 [id number] 07:42:46 08:02:46 Visit Kyle Gracer 350.1.13.21 0.2.7.2.686 [id number] 530 2020-03-31 2020-03-31 Office Altfa [facility] 1.2.840.114 [id number] 07:45:44 08:05:44 Visit Kyle GonzalezNair 350.1.13.21 0.2.7.2.686 [id number] 530 2020-03-17 2020-03-17 Office Altaf [facility] 1.2.840.114 [id number] 07:34:53 07:54:53 Visit Kyle GonzalezNair 350.1.13.21 0.2.7.2.686 [id number] 530 2020-03-12 2020-03-12 Office Lashell, SHANICE 1.2.840.114 [id number] 08:22:35 09:55:45 Visit Kelly AMBULATOR 350.1.13.21 Ashvin Y 0.2.7.2.686 [id number] 375 2020-02-18 2020-02-18 Office KAREN Solitario 1.2.840.114 [id number] 07:45:56 08:05:56 Visit Kyle Gracer 350.1.13.21 0.2.7.2.686 [id number] 530 2020-02-04 2020-02-04 Office KAREN Solitario 1.2.840.114 [id number] 08:05:32 10:29:35 Visit Kyle Gracer 350.1.13.21 0.2.7.2.686 [id number] 530 2020-01-30 2020-01-30 [facility] 1.[facility].840.114 [id number] 08:24:26 13:41:01 ne Visit Danny Mcguire 350.1.13.10 Lorenzo 4.2.7.2.686 [facility] [id number] [address] 2020-01-07 2020-01-07 Office [facility] 1.2.840.114 [id number] 08:00:07 09:16:25 Visit Kyle Villa 350.1.13.21 0.2.7.2.686 [id number] 530 2019-12-24 2019-12-24 Office SAMSON BennettBenito 1.2.840.114 [id number] 08:11:41 08:41:41 Visit Miguel Villa 350.1.13.21 Maile 0.2.7.2.686 [id number] 530 2019-12-10 2019-12-10 Office SAMSON BennettBenito 1.2.840.114 [id number] 08:35:24 10:46:00 Visit Miguel Villa 350.1.13.21 Maile 0.2.7.2.686 [id number] 530 2019-11-19 2019-11-19 Office SAMSON BennettBenito 1.2.840.114 [id number] 07:56:36 08:26:36 Visit Miguel Villa 350.1.13.21 Maile 0.2.7.2.686 [id number] 530 2019-11-05 2019-11-05 Office [facility] 1.2.840.114 [id number] 08:50:57 09:20:57 Visit Miguel Villa 350.1.13.21 Maile 0.2.7.2.686 [id number] 530 2019-10-31 2019-10-31 Office Lashell SHANICE 1.2.840.114 [id number] 09:27:53 10:54:17 Visit Mihail AMBULATOR 350.1.13.21 Ashvin Y 0.2.7.2.686 [id number] 375 2019-10-23 2019-10-23 Office [facility] 1.2.840.114 [id number] 08:26:58 08:56:58 Visit Miguel Villa 350.1.13.21 Maile 0.2.7.2.686 [id number] 530 2019-07-30 2019-07-30 Office Donald [facility] 1.2.840.114 [id number] 07:25:57 07:55:57 Visit Miguel Villa 350.1.13.21 [place] 0.2.7.2.686 [id number] 530 2019-07-18 2019-07-18 Office Kaykay SHANICE 1.2.637.668 [id number] 08:35:31 10:08:39 Visit Savanna AMBULATOR 350.1.13.21 Y 0.2.7.2.686 [id number] 325 2019-07-16 2019-07-16 Office Donald [facility] 1.2.840.114 [id number] 08:17:45 09:32:54 Visit Miguel Villa 350.1.13.21 Maile 0.2.7.2.686 [id number] 530 2019-06-18 2019-06-18 Office Donald [facility] 1.2.840.114 [id number] 09:03:37 10:04:35 Visit Miguel Villa 350.1.13.21 Ma[place] 0.2.7.2.686 [id number] 530 2019-05-23 2019-05-23 Office Nikhil Barfield [facility] 1.2.840.114 [id number] 07:28:00 08:59:08 Visit AMBULATOR 350.1.13.21 Y 0.2.7.2.686 [id number] 2019-05-21 2019-05-21 Office SHANICE Bennett 1.2.840.114 [id number] 08:53:36 09:23:36 Visit Miguel AMBULATOR 350.1.13.21 Maile Y 0.2.7.2.686 [id number] 360 2019-05-07 2019-05-07 Office SHANICE Bennett 1.2.840.114 [id number] 07:57:42 09:30:05 Visit Miguel AMBULATOR 350.1.13.21 Maile Y 0.2.7.2.686 [id number] 360 Results Test Description Test Time Test Comments Results Result [facility] e Comments RAD, CHEST, 2 Reason for VIEWS 7 Exam:->Pleura 09:28:00 l [facility] 1960 Sex: M FINAL REPORT EXAMINATION: RAD, CHEST, 2 VIEWS INDICATION: Pleural effusion COMPARISON: 10/02/2020 FINDINGS:TUBES and LINES: Right anterior chest port catheter looped over the right upper chest with distal tip over the low superior vena cava. LUNGS: Likely scarring/atelectasis at the right lung base with moderate size right pleural effusion. Slight improved aeration of the right lung when compared with the prior exam. The left lung is clear. PLEURA: No pneumothorax HEART AND MEDIASTINUM: The cardiomediastinal silhouette is partially obscured. BONES AND SOFT TISSUES: No acute osseous lesion. Soft tissues are unremarkable. UPPER ABDOMEN: No free air under the diaphragm. IMPRESSION: Likely scarring/atelectasis at the right lung base with moderate size right pleural effusion. Slight improved aeration of the right lung when compared with the prior exam. The left lung is clear. Signed: Starr Bailey MDReport Verified Date/Time: 10/09/2020 09:28:01 Reading Location: [facility] Reading Room [address] [place] [address] Chest 2 Views Interface, External [facility] 7 Ris In - 10/09/2020 - Med ical 09:28:00 9:30 AM [facility]AL Center REPORT EXAMINATION: RAD, CHEST, 2 VIEWS INDICATION: Pleural effusion COMPARISON: 10/02/2020 FINDINGS:TUBES and LINES: Right anterior chest port catheter looped over the right upper chest with distal tip over the low superior vena cava. LUNGS: Likely scarring/atelectasis at the right lung base with moderate size right pleural effusion. Slight improved aeration of the right lung when compared with the prior exam. The left lung is clear. PLEURA: No pneumothorax HEART AND MEDIASTINUM: The cardiomediastinal silhouette is partially obscured. BONES AND SOFT TISSUES: No acute osseous lesion. Soft tissues are unremarkable. UPPER ABDOMEN: No free air under the diaphragm. IMPRESSION: Likely scarring/atelectasis at the right lung base with moderate size right pleural effusion. Slight improved aeration of the right lung when compared with the prior exam. The left lung is clear. Signed: Starr Bailey MDReport Verified Date/Time: 10/09/2020 09:28:01 Reading Location: [facility] Reading Room [address] [address] Tissue Exam 2020-10-08 09:40:00 Test Item Value Reference Range Interpretation Comme nts Case Report (test code = 104) Surgical Pathology Report Case: [id number] Authorizing Provider: Tarun Rai MD Collected: 09/30/2020 09:05 AM [facility] Received: 09/30/2020 09:23 AM PERIOPERATIVE SERVICES Pathologist: Allen Velazquez MD Specimens: A) - Pleural, Right, RIGHT PLEURAL BIOPSY B) - Pleural, Right, RIGHT PLUERAL BIOPSY R/O CANCER DIAGNOSIS (test code = 3220) v8escQBpQFIut9qcYLNpiETyGbNsXzHoAfYtHr p cdWMxIHtccnRmMVxlcGljOTIwMFxhbnNpXHNwbH PnS4RhdfyxLDgcYQ3wPS9soYzfsKOepTJxBRXgM tVhh6bbl746qJWcd2rhAZVLplrvlHa4mDduW20a f5U2PafzG33imVQcXEndaKDfolvlwnJjZHMgVBU QXMVHNRwnUleUCAFoFTMFK0MJUCjjfCFoLS1BYM ZMBUHVACsiJBaOKoTBGW8MNIZFAZElIQCDUb7MB YRQQQ8JEWToDPBbfyVZMSEmROaZQ73FS9NWSeCM I88SYI0FNzurYBNtuMAxKEQvHYKWTOESEMvvJgh VOKBoLZGAJ7CYJDyvhVBcBG5MVEGSTFVIOEnvRC pBExBVOJ4GIYMOSJIaNAIWWi3YSINFXH5HWWZnB THrrq28WPH9GeAzi2C0LPO3TDIpJHNqy6chLYEu hBZdZfThKdEoEdIyGikmiIOxYOScPdShc2thl32 2aRFse2psHGRpAsN5xLDaKUBhdZPsR334FLSjXM hyd0clz7HtAEZyjJWiv8Q9HDOVvnoftWa6fAttA 84on0V9CeleS2oeWTWzFTRrZ9BmYG2cIWThLwi9 MKU2APL7RELhDHNpY9CdYH2xKLKsnDKfJHv7y2e dbXjyBEDhTPC5x0gqNUoddgAgZP0fas4kbWq3z9 sdeaYhMTQjGTFfiLODDJCxH4BmpSdcLc5neRi3f NsvUpzaHVX5Hjy4EO8wdy88vhk4gDltEILiustk YuA2IFxdJXPxxgunRHd3DKfgQWXgtIP6IDMexOT mL6JzXXOnAH5ztuh2JLK5ITubVFGsGwX3ANPefS OwRKOpnUkhPWggk253CCB5AtVqXW5wA7Fxe0N4d N6ljXAoCEKlpZOqIyJhXYGphl3njYTaCNftk8Vy BTX8kxL4yLJvwLMcDEOqTnM5SLspHM8ntz65QYO zMDL9in8ugOKdyDdxefZcbMYrVUvvZ7SwEHEwf1 16TXGvT0BpGRXff1B1xdMgOjTlUVDujBK5qmY6Z NMeEH3nuraym3dnGPyrXZefJGGlzwH4ylV0PGJw rDNhQ2HcnC5wBEXmVG4qddjrw0llGOV2MHacMAC tRCC6LoPnBZWxz4Ockqe1XcMad5HmfXXbOZhtG5 5gj705KJVncuJtS4rbmOIrmmpehUPcsghwAFcve sO5RYNuYWitonxwVKNkTUonT8cjFuOuQBYlhIoi ZEasp5IzDZIjQAViVgYikXJyVFSeLgx5SVWawVB gFRHyZnQwU7rtbidiUuPOTIMow2thD9fijTFFcJ WrU2PmEKummpDpGRzqLMdqQSKdWON5XR27DIcsC HBhcn19 COMMENT (test code = 3359) i2kbnMOcEENkiHY9LdZeQYBag1zhl2TmfREgsAQ zMToavMFwvgEgsw48vCC5jM96FH0yGNAeCiL2MQ MbqpV3Nje8ADAqBIApoYKyS447z8cgr4gngcZvk WK6hJntQARzGBLyPZuhJVMqHyBoFO5ziF0moDro eV9neVDqcEMjeTPgaFMjoXHjDIAgpuZipb2zOKF ruzAhmX9mfuCTGbTuWM4vzyN5fsT7JYG5aFWxjM Esy4NyK0OksCVwnO4qFeTjnQ8gyHUtpeWqZt9iR LEWBqPwHS2mRZJLDABqOECrLMpnQFRlPK3aB8B3 rQVcVUJeahSNRltdIE0bBAOWMiHbTKFeDZUdwK0 0ph7saXHfb8F1hFmhJQBhOHgqgJctMVDvtDcaNV 7laiZam7onT5caXADjhmWlrpwiVCHgHBZbr86vG HZjFramMYcutIyeZI8jQKXavv1kUOAvhA1enRCc c6XgL30cf30lGzGlmcgyfO4bPFapSGO7 CPT Code(s) (test code = 3357) o2tnpSZqFXAenDP6TtVoSIXxz8iok6TlwBWs cGF tPEvtjDTbbbDtkr44dUE5jK61AI5eIPXgIcY9XI VjjnZ4Zlb1IIVeMIFbbUEyG880v7cvp7mbmkAvt NY4kRwrFVAbGVAxINeuYIHfGcRfOGhdAnOdHQe0 AmT3DUclTapkWAyaVCJjHJb2WgUgyHNtiBHdnR= = CLINICAL HISTORY (test code = 3356) f2uwaJRpPIGqjPL5EoYgZOCha4uqr4D sdHBncGF gKHqmhMIdcdLlqu26aAL9rM63WF5wDFNsYgD2AE WkksL6Yze9ODPgXOXlxENxP580l9gti5oocdDco PW1rIrbWHFkKGFmRKseMDPtHkVqCERqm2GmmwZ8 wYGwOZWeWCwdz7DtpexsDMjdhZFcwYShKeF9n7n xhj6bcLTtoG== SPECIMEN SOURCE (test code = 3377) g9zjkFTeUMJsaNL6BsLpQKNva2olk3Uc dHBncGF uRNgfnBKrqtRkbw81nFR0fD45JO6aZCMcLuS3SI HoqiW4Uyk8CRPvJESwgCVgP431t0swj4gyudAtt FF2lQznWRCfFLWjDWzsQAIsExToYB9uTXdggYCk yQjvgetybCBtFMHwlzFCWbJUmZI5hwXcYJWgxLh odCBccGFyfQ== GROSS DESCRIPTION (test code = 3366) u7grbLDsGXCvzBC0TlNeFJLqc2zfu4 BsdHBncGF bEEklxKXeulUtdr28oQP7hV75OX3tZPUaLxK4AF HyplY8Uhi2BVVoJJWwwOTuY108k0lxe7ovpeRby SQ6fFvuVCVeUZObXPtxULJlOlVlCVWkpBEVQGHp U3IieiPhUOxrXSTxha9akAfdJBukAvOpTHScq9c 3bGV6zWSxmEZ7sPNuqYfiJF7tiNXeMMVlyLLcf1 TfWztboHtkTRFvn9jrqdQiXEXtF9Qxf0zgtwHnu C8eAXApTW3fHDOxbBB7dwWjEDAptAjoyJYeW01a v5ozjKDha1BhrTBpqIbnkQWyO3MmbO1reSRplyR kffFbfKFnuQGth2Cwd05qmBK7hXTxwBItjFNly2 IhjC2sGCDdgXpsDW3mNZ55KGJrKPKfYLVjoUAom kHvhdMysTBrkFUmkY8oweIkn37rNW0fKFEpqOIb MwJheCPvYhoeW01niD4oFWorykRaPFQoYdNRgRV cCF00iWWeFOCka2V0YBIvziUspSPrkXR4TEPtfY 1nR5Emy1Y4jJKfTAXqUWTpJgilEDFikYEyGENnF FWkqiVsBhPpUNZgqXMyUZZmmiXxdIYxs0IfbJ81 dvEgcMMfDDGoeqOcN53xp8OxvUB5oQ8pZAsrKmZ qWBPbf0i7sCY9sTNoyOA7qDFxmFilKU7ihQOcVZ YlkDBvr2PeDywydEomGIEjj9eazdTwHNDuM1Iqr 5feziJymF1pGZLhOW8gBJWxqPJ1xmWqUGMuyOrf eVSrQ23pk6awzOTlp6UbpOiaTSHppygagXRnu35 wSEVvHBtrAQ39yqRnPmLgf8T1BRIkv4X6OLXlAX YvuRSltdhvNo56QPtgXW78VUecUM09UMHjLFtaR VWfU6DtX3C6RL0mXHGns7R0iW4uRI2rBUSxXCSx ACGes96pz6LuABM3Lu3cnIAhFWKaa9HtLyFknvL cFUXvG7Kac71tKTMzBLG3gAIfevKlgLy5uiR6RL ZoWGMieV16oojqBXGeMLW4pwF3kDBor8NjC8bnZ WtheYZwoE7iBGsiKGKdsKcmNNW2xVUzfVPatY4i qSYrcZ1iCZVoNTZfFG2xsM1eQXZeq9XvgOmuPDK bl3ugouUwTTD4sY2qPWimJYN3Me4tlIPcWBOebk FdPNYaDPH9RYGQFQ8ACJWhXjNbyTZsoSevNRPgq RDdkhDbcsQfAqK6hFUkAcIpqdSsWJApB1Aap37l HhFXRa3hv8voPLX9 INTRAOPERATIVE CONSULTATION (test code = c1lhtJFeFZFry SZ6LqNlYKFif6ulu7ObnTCylOD 3369) mDYgtzJEzgxXroe12tDH8jC21RV7sTITbXxO9EZ FtmgW9Wcf2GCOuLTXkuEYaE308b7dsn7cckuSzy SW4vTqpTPOnZVYpDUlxETPcIjFblBYmJWQpSNJa RIIYYQVPUJkfQsnJKBCgCMLMT1VTBHrbmZJyGST nVIIBW6YYPCrOTIRWB8SgI6OYL2lOP90HRSquQO J9 MICROSCOPIC DESCRIPTION (test code = a8sfbLBvQKWvxSY3PkDzUZNyo0lbc8 [facility] 3371) kPXtwdNArumCnhv78mCX1oA57ER4mXBRhZfW7IF RounC2Gog7LLRxZWSpgRTnP615l6cvh8blmbVnx ZL4pEmqGKMzZKKdKHddJAAdGfBhMQHzYu8njGQi LiBccGFyfQ== SPECIAL STUDIES (test code = 3376) d8yyaUEcDDLru3sxYDDagMQbJbFqGuRj ZnRuYmp woEDzALujcfFeYHafb1StW5IrYnWlPBwefxMlZK KxOrlfzwpaNYEkLAO0rgDaRWIdQBlwHCNyUAtyV b7hlILceUazRnArIJUyd6bqlcLGwxeywSl1r3oi KYOdUdC0uVZyEAcxN4nbtuLbgSMwB5CvuUWsjMu 6y3ntZtAhSnY2dQHsREeoG5uewvAzyYFvEEHhGD l1sW15KNXauW1jyUNyFJjgrdZvRlZ7ZDcwXIHvN wP7MGDofHTfRRJsB5lhJMXuEBsbZLSyGAduhSUx ILG6wYwnj3N2cLRzgHFhqZypWeCzLzHiYuJDx1L wKPo5jSroM7LoPTNtSnA5qSZwNKIbNFgdKOAuHB SmsbL0uUxesxPyn90yvEGaMLRnEUUuOmDecTuzN HXgZPZTi6WpfZmjNES0xEt9iQlhXjkiCHC6Ybt0 SU7agr72gxa4uChjFUYhkvvyOlM8YYltJTCnguy zTVn8RKheQAMmkJA2QMKntNImJ3MbKYYxFW8iua c7ZRB7ENozCYNgStF9QTBwiDYqBEHoaDaiWYfsm 127SOW5PwLcKK4wR1Aul2M8vA0kpKCeLRQzmEAs MrQvSNIotk4eaKPfRXadg6StFUE4hfP8wFEbcST lFZWkBN13Jkjkh4BsHrtzs3IaR76rvLV2MTbol0 qcBE7zTrJ5mlOhHKzup2xbxO8lBvN5KSzqPS8qE W4oHVBqtU4hedxhVZMwHqTxnqwzARGwfTxiogAe Sy8xsRleFOR1DRfpC6ycqU8eLtN0BWmkZ5csyD9 bPAj1VQgekYX7PYAevP1zQH2jnuceb6zxJCrmLH yaQNNesbT0jdL0WAGpiTKxA9KrsS2jYZUgTQ7np fonj6uzWAJ3OBtbSAZfTND0GoVqAUZpf8Gsrkr8 ArTmk0KeqRFwPAtsR10wt410JDPmlwKdW3kjfUT gwofndCXefqrmDMvlvyA1BRSnNQTuBMaeUEFrOH ZzMjJcbGFuZzEwMzNcaGljaFxmMVxkYmNoXGYxX FrlV4yhGjSxD1OtPIDyJuKxLTenZZvzlSKkzUAd nPE1pY4qNA4fFWEaxAClJ7FsVMIqetLgaUDtZQR 7yBKcgZYoIX4qZEtroUKzn6ysr2SwG1vpxOsclL F2XX5xIXYdHFVtBDyss8MrjQ3jOimsuOYtefsrQ VtsdnKxSZzoooiwNADjWBhtE0qnKoXyKKOorOva QAnca5FpSJSkGEZjPhhpwxYpVKq8shAqLPWdpzc dSOGrjKbtdN0lBjPhBrJyYxzxFF6uXJHxI1ezmY IdUUKvIWNmU6osRzIjkR4uoHbiXDtlSnKnBkOnU mNDi539jm0dCJGjvHCcsaOTtDOirB8tUIutUWig IPczxATtUJrbz1ltHWUyi8l5sBOpQOGyryZpb7v qKVnmycIiHWNsuLVrlMBmOVYqy48kSOkifQspnW jhGBBbl0WukPrxe1YpTnJlIFytw2GxR35euOTmm TEplJsyPXFpvgOyIAOke84um0xgUXAlItE9mYTa cZF5hRNhqKMes4NzmJoxJHRyr1esMRSnxr3fhbi igXCdf6WceW1mheahJNpqzTOssgEyYNDxx0e6kU WeBGUtXEGcZHthjSx7VIDll949kj9yifG8vOQaB JJ9WJrcHXFqFFSjeyElKJBesEDhaAKcGEYsHUzt XGYxXGZzMjJcbGFuZzEwMzNcaGljaFxmMVxkYmN oFMAwFLgcS6fmYpBuD4CjSTAiEnDjyFNvO3thoE FyXHBsYWluXGYxXGZzMjJcbGFuZzEwMzNcaGlja SkqRSzlIaSlTBZeYXysU5sgPsYrC6TlLUAtZfUu HQympZJkatzsODnktdZhAIwncwzsANAoCTzhG9y zDdCnEFAhgChuNYqhc3XfEGYxDVZrRzkasgSlBX j6jaNgENHgldjhaMZtdyhxXHbzysVfMPnfetugP PLeGPafP9sgMwRoZQQtfEiqPRjph2IgKZNhZXWn IwfbchYgQEafiZMnb6pxv6ZaB9nowFjceJY2JSH cR7xcyHSscJF7XYV5qG8pERiiuhEaISNlt3DhMR ZpTTHrWoM0iK6pBKG4RmRJcEvmQFIpCGisWBOjD GZzMjJcbGFuZzEwMzNcaGljaFxmMVxkYmNoXGYx SLmgP6pcHqFyB8MwSMVkNcLhvHkaCMlaLWm0Rjb jpUZsizplFZghjbXtDZyoeqprKUOmWIusB3ptUe IfEBBmyOhtBFaab9IzOIUxKDVdOwbpaoCsJWTjH TXyuYPkxUIIVE83GWKuWBNqlYublN2teYGAEBGt fxW1c8V4SUakXTJrUGf8RZgnrjZlOLOjqZ3fBIU sFN1jXSq0hbIlZWDcx5DuCS5kYDDgeTLeXDL6MH Cke5TxH0Mjd6ZgSUGnDJPcsp5eleChEoDGkRCiS NKlsp41XJDsVQ7qK3qiQEVtMWVkkyFrzECrw6Xh MOIidGE7rBZtLH1TKjEIu14xKYUzNOYOzrLpZBD eqBfwmPJ0smA1nX7uPqWTxNGaKcRQCAlavfFjME Wrwa5bjhMyAKQiZTYzc1XguVCogYBnfdMzY9Ygt 6HrEQLyuj12TQprtXVvee72NI1aN5Fqv5RioC2q EBzxQLNuf1OjgCXiqZPeSVPva1DaZ4ucvctrBNv ojGJhxE6qVDAeEPc9ABScg7ScOCNix2NkAnDpjo LjJKPbDNBdYILcbV80FZD4oTubtAgoapWxUT1jI TOuzqWpMCQyEYPlqG8hHXtdpmXbVPLmpeA9s1W8 HBmgNDKaryZtKokjQHS9bnHicgL5aHFdK3ddjbm iTIjyUGRpr8ShbH4rhHWKuPGtc9VblWDxbYATrF GwCP7zjdHgNM0nLKO9DWupJCNEEDYaKDcnOABtA FC0CQvoRxgqXGB1hjSyFEExt1BoHAglH7ixS66v qCrefKn4pESbxKzjwQLxrMGiAEXhzmN4o5N4JLG xj7RhchncHRJySBiwULZjDKImXyDhxJJxQlRqTy EezGlvhQgzYcciWqQaEEYdHUpbU5wzYwTzFoNzP oxfEEC2h4cymXDjFITogKO2ZdHnUTXts5lmo1Fb yZVvqSXjHTrjeXNufiZubk11kJQ3bT56HE6dAJZ eGcJ4QXTphmJ9Lnr6LFXpVCHwbWWiN470c2inv6 samjRdbSZ6fVlmURQmMDXmVFbzQZRwLpGiNjbCC 1mpEWXgCFAXHhnvT8vuQYreQ9AGErktZAFYIAln YXJ9fQ== Gross assessment was performed at (test [facility] enter, code = 2777) Department of Pathology, [address] [place] [id number], Technical component was performed at [facility] er, (test code = 2778) Department of Pathology, [address] [place], [place] [id number], Professional component was performed at [facility] enter, (test code = 2779) Department of Pathology, [address] [place] [address], [facility] [id number] 09:40:00Surgical Pathology Report Case: [id number] Authorizing Provider: Tarun Rai MD Collected: 09/30/2020 09:05 AM Ordering Location: [facility] Received: 09/30/2020 09:23 AM PERIOPERATIVE SERVICES Pathologist: Allen Velazquez MD Specimens: A) - Pleural, Right, RIGHT PLEURAL BIOPSY B) -Pleural, Right, RIGHT PLUERAL BIOPSY R/O CANCER A. PLEURA, RIGHT, BIOPSY:MODERATELY DIFFERENTIATED ADENOCARCINOMA.SEE DIAGNOSTIC COMMENT.B. PLEURA, RIGHT, BIOPSY:MODERATELY DIFFERENTIATED ADENOCARCINOMA. Signing Pathologist Direct Phone Line: [phone] signed by Allen Velazquez MD on 10/08/2020 at 9:40 AMImmunohistochemical studies performed on block A2 demonstrate the tumor cells to be positive for CK20 and CDX2. They are negative for CK7and TTF1. The immunophenotypic as well as the morphologic findings are compatible with an adenocarcinoma of colonic origin. 37310, 20737 X 2, 74566, [id number] diagnosis: Pleural effusion.A. Pleural, right B. Pleural, right Part A received in formalin labeled with the patient's name, date of , assigned accession number and "pleural, right" consists of multiple tucker-black fragments of soft tissue measuring between 0.5 to 1.5 cm in greatest dimension and 2 x 2.5 x 0.8 cm in aggregate. The entire tissue is submitted in cassettes A1-A3.Part B received fresh for intraoperative consultationlabeled with the patient's name, date of , assigned accession number and "pleural, right" consists of two pink-maroon fragments of soft tissue measuring 2.5 x 1.5 x 0.8 cm in aggregate. A portion of the lesion was submitted for frozen section, and the results were communicated to the surgical team. The entire tissue including the remainder of the frozen section is submitted in cassette B1-B4 (B1is the remainder of the frozen section). LC/ewB. PLEURA, RIGHT, BIOPSY: - POSITIVE FOR CARCINOMA Per formed. The interpretation of this case included the use of immunohistochemistry or special stains.Control Slides Examined: In-house known positive controls were evaluated along with the test tissue.These control slides run alongside of the patients sample show appropriate staining. Internal positive and negative controls when available are evaluated Immunohistochemistry technical testing was performed at [facility], Pathology Laboratory where it was developed and [...] Laboratory Improvement Amendments of 1988 (CLIA-88) as qualifiedto perform high complexity clinical laboratory testing.BLOCK A2- CK7, CK20, CDX2, [id number] [facility], Department of Pathology, [address] [place] [address], [facility], [address] [place] [address], [facility], [facility] of [facility], [address] [place] [address], XXW-Glucose [id number] 16:50:00 Test Item Value Reference Range Interpretation Comments POC-Glucose Meter (test 110 mg/dL 70-110 : TE STED AT [facility] code = 1538) [address] [place] [address], 770 30: Department Of Mathematics Chair/Techni patrick ID = [id number] for JOSE ALBERTO WITT Lab Interpretation (test Normal code = 15188-1) [facility] [id number] 16:50:00 Test Item Value Reference Range Interpretation Comments POC-GLUCOSE METER 110 mg/dL 70-110 : TESTED A T [place] [address] (BEAKER) (test code = [facility], 1538) [address]: Department Of Mathematics Chair/Techni patrick ID = [id number] for JOSE ALBERTO SHEPHERD POCT-GLUCOSE [id number] 13:23:00 Test Item Value Reference Range Interpretation Comments POC-GLUCOSE METER 98 mg/dL 70-110 : TESTED A T [facility] 6720 (ZACHARY) (test code = NAM[place], 1538) [address]: Department Of Mathematics Chair/Techni patrick ID = [id number] for [facility], HIWITHA RAD, CHEST, 1 VIEW, NON [id number] 12:26:00Reason for exam:->s/p ChT removalShould this be performed at the bedside?->Yes [facility] : 1960 Sex: MFINAL REPORT CLINICAL HISTORY: s/p ChT removal TECHNIQUE: 1 view of t he chest. COMPARISON: 10/02/2020 IMPRESSION: The right central line is unchanged. The right lower chest tube has been removed without pneumothorax. Right hemithorax pleural parenchymal opacities are similar appearing. The left lung remains relatively well-aerated. The cardiomediastinal silhouette is ma gnified by technique. Signed: Radha Cabrera MDReport Verified Date/Time: 10/02/2020 12:26:12 Reading Location: [facility] Reading Room XR chest 1 view portable / [id number] 12:26:00Interface, External Ris In - 10/02/2020 12:28 PM CSTFINAL REPORT CLINICAL HISTORY: s/p ChT removal TECHNIQUE: 1 view of the chest. COMPARISON: 10/02/2020 IMPRESSION: The right central line is unchanged. The right lower chest tube has been removed without pneumothorax. Right hemithorax pleural parenchymal opacities are similar appearing. The left lung remains relatively well-aerated. The cardiomediastinal silhouette is magnified by technique. Signed: Radha Cabrera MDReport Verified Date/Time: 10/02/2020 12:26:12 Reading Location: [facility] Reading [facility] diff 2020-10-02 09:20:00 Test Item Value Reference Range Interpretation Comments WBC (test code = 6690-2) 10.6 3.5- 10.5 K/L H RBC (test code = 789-8) 2.98 4.63- 6.08 M/L L MCHC (test code = 786-4) 28.5 32.3- 36.5 GM/DL L Hematocrit (test code = 4544-3) 25.3 % 40.1-51 L MCV (test code = 787-2) 84.9 fL 79-92.2 MCH (test code = 785-6) 24.2 pg 25.7-32.2 L RDW (test code = 788-0) 18.7 % 11.6-14.4 H Platelets (test code = 777-3) 332 150- 450 K/CU MM MPV (test code = 43451-6) 9.8 fL 9.4-12.4 nRBC (test code = 413) 0 0- 0 /100 WBC Lab Interpretation (test code = Abnormal 96016-6) [facility] Hospital[facility]ual [id number] 09:20:00 Test Item Value Reference Range Interpretation Comments % Neutros (test code = 72 % 2816) % Lymphs (test code = 8 % 2817) % Monos (test code = 8 % 2818) % Eos (test code = 7 % 2819) % Baso (test code = 2 % 0) % Atypical Lymphs (test 2 % 0-0 H code = 2829) # Neutros (test code = 7.63 K/ul 1.78-5.38 H 2830) # Lymphs (test code = 0.85 K/ul 1.32-3.57 L 2831) # Monos (test code = 0.85 K/uL 0.3-0.82 H 2832) # Eos (test code = 0.74 K/uL 0.04-0.54 H 2834) # Baso (test code = 0.21 K/uL 0.01-0.08 H 2835) # Atypical Lymphs (test 0.21 K/uL 0-0 H code = 2858) Total Counted (test 100 code = 1351) WBC Morphology (test Normal code = 487) Giant Platelet (test Present code = 313) Large Platelet (test Present code = 2156) Polychromasia (test 1+ few code = 478) Hypochromia (test code 1+ few = 963) Poikilocytes (test code 1+ few = 966) Spherocytes (test code 1+ few = 768) Ovalocytes (test code = 1+ few 477) Tear Drop Cells (test 1+ few code = 481) Artifact (test code = Present 3432) Platelet Conc (test Adequate code = 3438) MIGUEL A (test code = MIGUEL A) Department Of Mathematics Chair ID - Jessenia Tawnya comments: Slide comments: WBC: SEGMENTED WITH TOXIC GRANULATIONS PRESENT Lab Interpretation Abnormal (test code = 66587-2) [facility] W/PLT COUNT & AUTO [id number] 09:20:00 Test Item Value Reference Range Interpretation Comments WHITE BLOOD CELL COUNT (BEAKER) 10.6 K/ L 3.5-10.5 H (test code = 775) RED BLOOD CELL COUNT (BEAKER) 2.98 M/ L 4.63-6.08 L (test code = 761) HEMOGLOBIN (BEAKER) (test code = 7.2 GM/DL 13.7-17.5 L 410) HEMATOCRIT (BEAKER) (test code = 25.3 % 40.1-51.0 L 411) MEAN CORPUSCULAR VOLUME (BEAKER) 84.9 fL 79.0-92.2 (test code = 753) MEAN CORPUSCULAR HEMOGLOBIN 24.2 pg 25.7-32.2 L (BEAKER) (test code = 751) MEAN CORPUSCULAR HEMOGLOBIN CONC 28.5 GM/DL 32.3-36.5 L (BEAKER) (test code = 752) RED CELL DISTRIBUTION WIDTH 18.7 % 11.6-14.4 H (BEAKER) (test code = 412) PLATELET COUNT (BEAKER) (test 332 K/CU MM 150-450 code = 756) MEAN PLATELET VOLUME (BEAKER) 9.8 fL 9.4-12.4 (test code = 754) NUCLEATED RED BLOOD CELLS 0 /100 WBC 0-0 (BEAKER) (test code = 413) (CELLAVISION MANUAL DIFF)2020-10-02 09:20:00 Test Item Value Reference Range Interpretation Comments NEUTROPHILS - REL 72 % (CELLAVISION)(BEAKER) (test code = 2816) LYMPHOCYTES - REL 8 % (CELLAVISION)(BEAKER) (test code = 2817) MONOCYTES - REL 8 % (CELLAVISION)(BEAKER) (test code = 2818) EOSINOPHILS - REL 7 % (CELLAVISION)(BEAKER) (test code = 2819) BASOPHILS - REL 2 % (CELLAVISION)(BEAKER) (test code = 2820) ATYPICAL LYMPHOCYTES - REL 2 % 0-0 H (CELLAVISION)(BEAKER) (test code = 2829) NEUTROPHILS - ABS 7.63 K/ul 1.78-5.38 H (CELLAVISION)(BEAKER) (test code = 2830) LYMPHOCYTES - ABS 0.85 K/ul 1.32-3.57 L (CELLAVISION)(BEAKER) (test code = 2831) MONOCYTES - ABS 0.85 K/uL 0.30-0.82 H (CELLAVISION)(BEAKER) (test code = 2832) EOSINOPHILS - ABS 0.74 K/uL 0.04-0.54 H (CELLAVISION)(BEAKER) (test code = 2834) BASOPHILS - ABS 0.21 K/uL 0.01-0.08 H (CELLAVISION)(BEAKER) (test code = 2835) ATYPICAL LYMPHOCYTES - ABS 0.21 K/uL 0.00-0.00 H (CELLAVISION)(BEAKER) (test code = 2858) TOTAL COUNTED (BEAKER) (test code = 100 1351) WBC MORPHOLOGY (BEAKER) (test code Normal = 487) GIANT PLATELETS (BEAKER) (test code Present = 313) LARGE PLT(BEAKER) (test code = Present 2156) POLYCHROMATOPHILLIC RBCS(BEAKER) 1+ few (test code = 478) HYPOCHROMIA (BEAKER) (test code = 1+ few 963) POIKILOCYTES (BEAKER) (test code = 1+ few 966) SPHEROCYTES (BEAKER) (test code = 1+ few 768) OVALOCYTES (BEAKER) (test code = 1+ few 477) TEAR DROP CELLS (BEAKER) (test code 1+ few = 481) ARTIFACT (CELLAVISION)(BEAKER) Present (test code = 3432) PLATELET CONCENTRATION Adequate (CELLAVISION)(BEAKER) (test code = 3438) Department Of Mathematics Chair ID - Jessenia Tawnya comments: Slide comments: WBC: SEGMENTED WITH TOXIC GRANULATIONS PRESENTRAD, CHEST, 1 VIEW, NON [id number] 08:45:00 Reason for exam:->s/p R VATSShould this be performed at the bedside?->Yes [facility] : 1960 Sex: MFINAL REPORT CLINICAL HISTORY: s/p R VATS TECHNIQUE: 1 view of the [facility] COMPARISON: 10/01/2020 IMPRESSION: The right central line is unchanged. Right hemithorax pleural-parenchymal opacity is unchanged. Left lung remains well-aerated. The cardiomediastinal silhouette is magnified by technique. Signed: Radha Cabrera MDReport Verified Date/Time: 10/02/2020 08:45:51 Reading Location: [facility] Reading Room Basic Metabolic [id number] 06:11:00 Test Item Value Reference Range Interpretation Comments Sodium (test code = 139 meq/L 457-003 9507-2) Potassium (test code = 4.2 meq/L 3.5-5.1 2823-3) Chloride (test code = 104 meq/L 98-107 2075-0) CO2 (test code = 27 meq/L - 2028-9) BUN (test code = 8 mg/dL 7-21 3094-0) Creatinine (test code 0.64 mg/dL 0.57-1.25 = 2160-0) Glucose (test code = 107 mg/dL 70-105 H 2345-7) Calcium (test code = 8.2 mg/dL 8.4-10.2 L 22947-9) EGFR (test code = 155 mL/min/1.73 [place] [address]-7) NOT ACCURATE CREATININE CLEARANCE IN PREDICTING GLOMERULAR FILTRATION RATE . ESTIMATED GFR I S NOT APPLICABLE FOR DIALYSIS PATIENTS. MIGUEL A (test code = MIGUEL A) Department Of Mathematics Chair ID - ARGENIS M Lab Interpretation Abnormal (test code = 14754-8) [facility] HospitalMagnesium2020-12-31 06:11:00 Test Item Value Reference Range Interpretation Comments Magnesium (test code = 2.2 mg/dL 1.6-2.6 66030-4) MIGUEL A (test code = MIGUEL A) Department Of Mathematics Chair ID - ARGENIS M Lab Interpretation (test Normal code = 79461-6) [facility] HospitalBASIC METABOLIC [id number] 06:11:00 Test Item Value Reference Range Interpretation Comments SODIUM (BEAKER) 139 meq/L 136-145 (test code = 381) POTASSIUM (BEAKER) 4.2 meq/L 3.5-5.1 (test code = 379) CHLORIDE (BEAKER) 104 meq/L 98-107 (test code = 382) CO2 (BEAKER) (test 27 meq/L code = 355) BLOOD UREA NITROGEN 8 mg/dL 7-21 (BEAKER) (test code = 354) CREATININE (BEAKER) 0.64 mg/dL 0.57-1.25 (test code = 358) GLUCOSE RANDOM 107 mg/dL 70-105 H (BEAKER) (test code = 652) CALCIUM (BEAKER) 8.2 mg/dL 8.4-10.2 L (test code = 697) EGFR (BEAKER) (test 155 mL/min/1.73 ESTIM ATED GFR IS code = 1092) sq m NOT ACCURATE CREATININE CLEARANCE IN PREDICTING GLOMERULAR FILTRATION RATE . ESTIMATED GFR I S NOT APPLICABLE FOR DIALYSIS PATIEN TS. Department Of Mathematics Chair ID - ARGENIS [id number] 06:11:00 Test Item Value Reference Range Interpretation Comments MAGNESIUM (BEAKER) (test code = 2.2 mg/dL 1.6-2.6 627) Department Of Mathematics Chair ID - ARGENIS MPrepare Leuko-Red [id number] 23:54:00 Test Item Value Reference Range Interpretation Comments CROSSMATCH (test code = COMPATIBLE 2264) Unit ABO (test code = A Pos 7954738) UNIT NUMBER (test code = [id number] 934-0) Status (test code = RETURNED FROM ISSUE [id number]) Blood Bank Product (test RED BLOOD CELLS code = 2263) PRODUCT CODE (test code = [id number] 933-2) [facility]-GLUCOSE [id number] 11:35:00 Test Item Value Reference Range Interpretation Comments POC-GLUCOSE METER 133 mg/dL 70-110 H : TESTED A T [facility] 6720 (BEAKER) (test code = NAMITA Fer[place], 1538) [address]: Department Of Mathematics Chair/Techni patrick ID = [id number] for UKWU, HYGINUS ECG 12 [id number] 08:18:06Interface, External Ris In - 10/01/2020 8:18 AM CSTVentricular Rate 113 BPMAtrial Rate 113 BPMP-R Interval 178 msQRS Duration 70 msQ-T Interval 340 msQTC Calculation(Bazett) 466 msP Harmony 49 degreesR Harmony 15 degreesT Harmony 59 degreesSinus tachycardia with frequent Premature atrial complexesNonspecific T wave abnormalityAbnormal ECGWhen compared with ECG of 30-SEP-2020 17:13,No significant changesConfirmed by MD JAYCEE, BRYANT Haley ([id number]) on 10/01/2020 8:18:03 [facility]-GLUCOSE METER 2020-10-01 07:42:00 Test Item Value Reference Range Interpretation Comments POC-GLUCOSE METER 116 mg/dL 70-110 H : TESTED A T [facility] 6720 (ZACHARY) (test code = [place], 1538) [address]: Department Of Mathematics Chair/Techni patrick ID = [id number] for Ca ge, Yoselyn RAD, CHEST, 1 VIEW, NON [id number] 07:35:00Reason for exam:->s/p R VATSShould this be performed at the bedside?->Yes [facility] : 1960 Sex: MFINAL REPORT RAD, CHEST, 1 VIEW, NON DEPT INDICATION: s/p R VATS MICHEAL RISON: Prior day's exam FINDINGS: Portable frontal view of the chest. IMPRESSION: Support Lines: Port-A-Cath tip overlies the SVC Lungs and pleura: Right pleural effusion, decreased in the interim. Diffuse interstitial opacities are unchanged. No pneumothorax.Heart and mediastinum: Stable contours.Stable surgical changes.Additional findings: None. Signed: Twila Escobar Verified Date/Time: 10/01/2020 07:35:22 Reading Location: [facility] Reading Room CBC W/PLT COUNT & AUTO [id number] 06:46:00 Test Item Value Reference Range Interpretation Comments WHITE BLOOD CELL COUNT (ZACHARY) 11.8 K/ L 3.5-10.5 H (test code = 775) RED BLOOD CELL COUNT (BEAKER) 3.27 M/ L 4.63-6.08 L (test code = 761) HEMOGLOBIN (BEAKER) (test code = 7.7 GM/DL 13.7-17.5 L 410) HEMATOCRIT (BEAKER) (test code = 27.5 % 40.1-51.0 L 411) MEAN CORPUSCULAR VOLUME (BEAKER) 84.1 fL 79.0-92.2 (test code = 753) MEAN CORPUSCULAR HEMOGLOBIN 23.5 pg 25.7-32.2 L (BEAKER) (test code = 751) MEAN CORPUSCULAR HEMOGLOBIN CONC 28.0 GM/DL 32.3-36.5 L (BEAKER) (test code = 752) RED CELL DISTRIBUTION WIDTH 19.0 % 11.6-14.4 H (BEAKER) (test code = 412) PLATELET COUNT (BEAKER) (test 329 K/CU MM 150-450 code = 756) MEAN PLATELET VOLUME (BEAKER) 9.9 fL 9.4-12.4 (test code = 754) NUCLEATED RED BLOOD CELLS 0 /100 WBC 0-0 (BEAKER) (test code = 413) (CELLAVISION MANUAL DIFF)2020-10-01 06:46:00 Test Item Value Reference Range Interpretation Comments NEUTROPHILS - REL 71 % (CELLAVISION)(BEAKER) (test code = 2816) LYMPHOCYTES - REL 13 % (CELLAVISION)(BEAKER) (test code = 2817) MONOCYTES - REL 7 % (CELLAVISION)(BEAKER) (test code = 2818) EOSINOPHILS - REL 7 % (CELLAVISION)(BEAKER) (test code = 2819) BANDS - REL (CELLAVISION)(BEAKER) 1 % 0-10 (test code = 2826) ATYPICAL LYMPHOCYTES - REL 1 % 0-0 H (CELLAVISION)(BEAKER) (test code = 2829) NEUTROPHILS - ABS 8.38 K/ul 1.78-5.38 H (CELLAVISION)(BEAKER) (test code = 2830) LYMPHOCYTES - ABS 1.53 K/ul 1.32-3.57 (CELLAVISION)(BEAKER) (test code = 2831) MONOCYTES - ABS 0.83 K/uL 0.30-0.82 H (CELLAVISION)(BEAKER) (test code = 2832) EOSINOPHILS - ABS 0.83 K/uL 0.04-0.54 H (CELLAVISION)(BEAKER) (test code = 2834) BANDS - ABS (CELLAVISION)(BEAKER) 0.12 K/uL 0.00-0.80 (test code = 2840) ATYPICAL LYMPHOCYTES - ABS 0.12 K/uL 0.00-0.00 H (CELLAVISION)(BEAKER) (test code = 2858) TOTAL COUNTED (BEAKER) (test code = 100 1351) WBC MORPHOLOGY (BEAKER) (test code Normal = 487) PLT MORPHOLOGY (BEAKER) (test code Normal = 486) POLYCHROMATOPHILLIC RBCS(BEAKER) 1+ few (test code = 478) HYPOCHROMIA (BEAKER) (test code = 1+ few 963) POIKILOCYTES (BEAKER) (test code = 1+ few 966) ARTIFACT (CELLAVISION)(BEAKER) Present (test code = 3432) PLATELET CONCENTRATION Adequate (CELLAVISION)(BEAKER) (test code = 3438) Department Of Mathematics Chair ID - Penny OverholtUser comments: Slide comments:BASIC METABOLIC PANEL 2020-10-01 04:43:00 Test Item Value Reference Range Interpretation Comments SODIUM (BEAKER) 138 meq/L 136-145 (test code = 381) POTASSIUM (BEAKER) 4.4 meq/L 3.5-5.1 (test code = 379) CHLORIDE (BEAKER) 103 meq/L 98-107 (test code = 382) CO2 (BEAKER) (test 26 meq/L 22-29 code = 355) BLOOD UREA NITROGEN 11 mg/dL 7-21 (BEAKER) (test code = 354) CREATININE (BEAKER) 0.77 mg/dL 0.57-1.25 (test code = 358) GLUCOSE RANDOM 129 mg/dL 70-105 H (BEAKER) (test code = 652) CALCIUM (BEAKER) 8.4 mg/dL 8.4-10.2 (test code = 697) EGFR (BEAKER) (test 125 mL/min/1.73 ESTIM ATED GFR IS code = 1092) sq m NOT ACCURATE CREATININE CLEARANCE IN PREDICTING GLOMERULAR FILTRATION RATE . ESTIMATED GFR I S NOT APPLICABLE FOR DIALYSIS PATIEN TS. Department Of Mathematics Chair ID - [id number] 04:43:00 Test Item Value Reference Range Interpretation Comments MAGNESIUM (BEAKER) (test code = 2.2 mg/dL 1.6-2.6 627) Department Of Mathematics Chair ID - EDASIPOCT-GLUCOSE [id number] 00:08:00 Test Item Value Reference Range Interpretation Comments POC-GLUCOSE METER 96 mg/dL 70-110 : TESTED A T [facility] 6720 (BEAKER) (test code = NAMITA [place], 1538) [address]: Department Of Mathematics Chair/Techni patrick ID = [id number] for STEPHEN REBOLLEDO CBC (Hemogram only)2020-09-30 23:13:00 Test Item Value Reference Range Interpretation Comments WBC (test code = 6690-2) 12.7 3.5- 10.5 K/L H RBC (test code = 789-8) 3.35 4.63- 6.08 M/L L MCHC (test code = 786-4) 28.2 32.3- 36.5 GM/DL L Hematocrit (test code = 4544-3) 28.4 % 40.1-51 L MCV (test code = 787-2) 84.8 fL 79-92.2 MCH (test code = 785-6) 23.9 pg 25.7-32.2 L RDW (test code = 788-0) 18.7 % 11.6-14.4 H Platelets (test code = 777-3) 325 150- 450 K/CU MM MPV (test code = 41199-0) 10.2 fL 9.4-12.4 nRBC (test code = 413) 0 0- 0 /100 WBC Lab Interpretation (test code = Abnormal 62101-8) [facility]2020-09-30 23:13:00 Test Item Value Reference Range Interpretation Comments WHITE BLOOD CELL COUNT (BEAKER) 12.7 K/ L 3.5-10.5 H (test code = 775) RED BLOOD CELL COUNT (BEAKER) 3.35 M/ L 4.63-6.08 L (test code = 761) HEMOGLOBIN (BEAKER) (test code = 8.0 GM/DL 13.7-17.5 L 410) HEMATOCRIT (BEAKER) (test code = 28.4 % 40.1-51.0 L 411) MEAN CORPUSCULAR VOLUME (BEAKER) 84.8 fL 79.0-92.2 (test code = 753) MEAN CORPUSCULAR HEMOGLOBIN 23.9 pg 25.7-32.2 L (BEAKER) (test code = 751) MEAN CORPUSCULAR HEMOGLOBIN CONC 28.2 GM/DL 32.3-36.5 L (BEAKER) (test code = 752) RED CELL DISTRIBUTION WIDTH 18.7 % 11.6-14.4 H (BEAKER) (test code = 412) PLATELET COUNT (BEAKER) (test 325 K/CU MM 150-450 code = 756) MEAN PLATELET VOLUME (BEAKER) 10.2 fL 9.4-12.4 (test code = 754) NUCLEATED RED BLOOD CELLS 0 /100 WBC 0-0 (BEAKER) (test code = 413) Troponin [id number] 18:48:00 Test Item Value Reference Range Interpretation Comments Troponin I (test code = <0.01 0-0.03 90766-0) MIGUEL A (test code = MIGUEL A) Troponin I (TnI) levels must be interpreted [...] failure, acidosis, acute neurological disease, and persistent tachyarrhythmia.Opera tor ID - BS Lab Interpretation (test Normal code = 05600-4) [facility] [id number] 18:48:00 Test Item Value Reference Range Interpretation Comments TROPONIN I (BEAKER) (test code = 397) < ng/mL 0.00-0.03 Troponin I (TnI) levels [...] failure, acidosis, acute neurological disease, and persistent tachyarrhythmia.Department Of Mathematics Chair ID - [id number] 18:42:00 Test Item Value Reference Range Interpretation Comments MAGNESIUM (BEAKER) 2.3 mg/dL 1.6-2.6 Specimen slightly (test code = 627) hemolyzed Department Of Mathematics Chair ID - BSBASIC METABOLIC [id number] 18:42:00 Test Item Value Reference Range Interpretation Comments SODIUM (BEAKER) 136 meq/L 136-145 (test code = 381) POTASSIUM (BEAKER) 3.9 meq/L 3.5-5.1 Specimen slightly (test code = 379) hemolyzed CHLORIDE (BEAKER) 103 meq/L 98-107 (test code = 382) CO2 (BEAKER) (test 25 meq/L 22-29 code = 355) BLOOD UREA NITROGEN 10 mg/dL 7-21 (BEAKER) (test code = 354) CREATININE (BEAKER) 0.79 mg/dL 0.57-1.25 Specimen slightly (test code = 358) hemolyzed GLUCOSE RANDOM 190 mg/dL 70-105 H (BEAKER) (test code = 652) CALCIUM (BEAKER) 8.0 mg/dL 8.4-10.2 L (test code = 697) EGFR (BEAKER) (test 122 mL/min/1.73 ESTIM ATED GFR IS code = 1092) sq m NOT ACCURATE CREATININE CLEARANCE IN PREDICTING GLOMERULAR FILTRATION RATE . ESTIMATED GFR I S NOT APPLICABLE FOR DIALYSIS PATIEN TS. Department Of Mathematics Chair ID - BSHemoglobin and [id number] 16:53:00 Test Item Value Reference Range Interpretation Comments Hemoglobin (test code = 6.8 13.7- 17.5 GM/DL L 786-4) Hematocrit (test code = 24.6 % 40.1-51 L 4544-3) MIGUEL A (test code = MIGUEL A) Department Of Mathematics Chair ID - [id number] Lab Interpretation (test Abnormal code = 72579-4) [facility] HospitalHEMOGLOBIN AND [id number] 16:53:00 Test Item Value Reference Range Interpretation Comments HEMOGLOBIN (BEAKER) (test code = 6.8 GM/DL 13.7-17.5 L 410) HEMATOCRIT (BEAKER) (test code = 24.6 % 40.1-51.0 L 411) Department Of Mathematics Chair ID - 6000POCT-GLUCOSE [id number] 16:47:00 Test Item Value Reference Range Interpretation Comments POC-GLUCOSE METER 167 mg/dL 70-110 H : TESTED A T [facility] (BEAKER) (test code = NAMITA [place], 1538) [address]: Department Of Mathematics Chair/Techni patrick ID = [id number] for AMADA CORONA POCT-GLUCOSE [id number] 14:04:00 Test Item Value Reference Range Interpretation Comments POC-GLUCOSE METER 95 mg/dL 70-110 : TESTED A T [facility] 6720 (BEAKER) (test code = NAMITA Brantley [facility], 1538) [address]: Department Of Mathematics Chair/Techni patrick ID = [id number] for JYOTHI MORALES CT, CHEST, WITHOUT [id number] 13:19:00Evaluate for residual pleural effusion, extent of disease in R chestUnlisted Reason for Exam - ClickYes and Enter Reason Below->No [facility] : 1960 Sex: MFINAL REPORT TECHNIQUE: CT of the chest WITHOUT intravenous contrast. Dose modulation, iterative reconstruction, and/or weight-based adjustment of the mA/kV was utilized to reduce the radiation dose to as low as reasonably achievable. INDICATION: Pleural effusion. COMPARISON: CT abdomen pelvis 04/19/2020, CT chest 06/05/2020. FINDINGS: ABSENCE OF INTRAVENOUS CONTRAST DECR EASES SENSITIVITY FOR DETECTION OF FOCAL LESIONS AND VASCULAR PATHOLOGY. LINES/TUBES: The right IJ port catheter tip terminates in the superior vena cava.. LUNGS AND AIRWAYS: Mild retained secretions within the right main bronchus. Central airways are otherwise patent. There is consolidative opacity throughout the right lung which has increased since August 22, 2020. Linear bands of subsegmental atelectasis within the left lower lobe. There is a new 0.4 cm lingular nodule. (See axial image 37). PLEURA: Complex right subpulmonic pleural effusion with pleural nodularity. Few small foci of gas are noted within the effusion. There is a tunneled pleural catheter. HEART AND MEDIASTINUM: There are mildly enlarged mediastinal lymph nodes appear. For instance a right paratracheal lymph node measures 1.8x 2.2 cm. This is not significantly changed since previous exam.. The heart and pericardium are within normal limits. SOFT TISSUES AND BONES: Small amount of subcutaneous gas in the right chest wall.. D egenerative changes in the spine. No suspicious osseous lesion. UPPER ABDOMEN: Metallic stent in theproximal descending colon.. Partially visualized omental nodularity in the left upper quadrant of the abdomen. Redemonstration of implant along the dome of the left hepatic lobe measuring 2.8 cm. Thereis redemonstration of a 4.7 x 3.4 cm left adrenal mass. IMPRESSION:Complex loculated malignant effusion in the right lung base with pleural catheter in place. Foci of gas are noted within the collection and in the right chest wall. This may related to recent intervention. Superimposed infection cannot be excluded. Increased consolidation throughout the right lung concerning for pneumonia and/or atelectasis. New 4 mm lingular nodule which may represent metastatic disease. Redemonstration of peritoneal metastatic disease. Unchanged left adrenal mass. Unchanged mildly enlarged mediastinal lymph nodesalso concerning for metastatic disease. Signed: Olga Alamo MDReport Verified Date/Time:09/30/2020 13:19:51 Reading Location: [facility] B1 [id number] Ortho Consult Reading Room CT chest without IV [id number] 13:19:00Interface, External Ris In - 09/30/2020 1:22 PM CSTFINAL REPORT TECHNIQUE: CT of the chest WITHOUT intravenous contrast. Dose modulation, iterative reconstruction, and/or weight-based adjustment of the mA/kV was utilized to reduce the radiation dose to as low as reasonably achievable. INDICATION: Pleural effusion. COMPARISON: CT abdomen pelvis 04/19/2020, CT chest 06/05/2020. FINDINGS: ABSENCE OF INTRAVENOUS CONTRAST DECREASES SENSITIVITY FOR DETECTION OF FOCAL LESIONS AND VASCULAR PATHOLOGY. LINES/TUBES: The right IJ port catheter tip terminates in the superior vena cava.. LUNGS AND AIRWAYS: Mild retained secretions within the right main bronchus. Central airways are otherwi se patent. There is consolidative opacity throughout the right lung which has increased since August 22, 2020. Linear bands of subsegmental atelectasis within the left lower lobe. There is a new 0.4 cm lingular nodule. (See axial image 37). PLEURA: Complex right subpulmonic pleural effusion with pleural nodularity. Few small foci of gas are noted within the effusion. There is a tunneled pleural catheter. HEART AND MEDIASTINUM: There are mildly enlarged mediastinal lymph nodes appear. For instance a right paratracheal lymph node measures 1.8 x 2.2 cm. This is not significantly changed since previous exam.. The heart and pericardium are within normal limits. SOFT TISSUES AND BONES: Small amount ofsubcutaneous gas in the right chest wall.. Degenerative changes in the spine. No suspicious osseous lesion. UPPER ABDOMEN: Metallic stent in the proximal descending colon.. Partially visualized omentalnodularity in the left upper quadrant of the abdomen. Redemonstration of implant along the dome of the left hepatic lobe measuring 2.8 cm. There is redemonstration of a 4.7 x 3.4 cm left adrenal mass.IMPRESSION:Complex loculated malignant effusion in the right lung base with pleural catheter in place. Foci of gas are noted within the collection and in the right chest wall. This may related to recent intervention. Superimposed infection cannot be excluded. Increased consolidation throughout the right lung concerning for pneumonia and/or atelectasis. New 4 mm lingular nodule which may represent metastatic disease. Redemonstration of peritoneal metastatic disease. Unchanged left adrenal mass. Unchanged mildly enlarged mediastinal lymph nodes also concerning for metastatic disease. Signed: Olga Alamo MDReport Verified Date/Time: 09/30/2020 13:19:51 Reading Location: [address] OrthoConsult Reading [facility] [id number] 12:15:00 Test Item Value Reference Range Interpretation Comments Hemoglobin (test code = 786-4) 7.6 13.0- 16.8 GM/DL L Hematocrit (test code = 4544-3) 22.0 % 40-50 L Lab Interpretation (test code = Abnormal 12978-7) [facility] [id number] 12:15:00 Test Item Value Reference Range Interpretation Comments HEMOGLOBIN (BEAKER) (test code = 7.6 GM/DL 13.0-16.8 L 410) HEMATOCRIT (BEAKER) (test code = 22.0 % 40.0-50.0 L 411) [id number] 11:09:00 Test Item Value Reference Range Interpretation Comments Glucose (test code = 2345-7) 126 mg/dL 70-105 H Lab Interpretation (test code = Abnormal 77192-6) [facility] 11:09:00 Test Item Value Reference Range Interpretation Comments Phosphorus (test code = 4.4 mg/dL 2.3-4.7 2777-1) MIGUEL A (test code = MIGUEL A) Department Of Mathematics Chair ID - SAHRA C Lab Interpretation (test Normal code = 60231-9) [facility] 11:09:00 Test Item Value Reference Range Interpretation Comments Potassium (test code = 2823-3) 3.6 meq/L 3.5-5.1 Lab Interpretation (test code = Normal 30103-5) [facility] 11:09:00 Test Item Value Reference Range Interpretation Comments GLUCOSE RANDOM (BEAKER) (test code 126 mg/dL 70-105 H = 652) [id number] 11:09:00 Test Item Value Reference Range Interpretation Comments MAGNESIUM (BEAKER) (test code = 1.9 mg/dL 1.6-2.6 627) Department Of Mathematics Chair ID - SAHRA CBASIC METABOLIC [id number] 11:09:00 Test Item Value Reference Range Interpretation Comments SODIUM (BEAKER) 139 meq/L 136-145 (test code = 381) POTASSIUM (BEAKER) 3.6 meq/L 3.5-5.1 (test code = 379) CHLORIDE (BEAKER) 102 meq/L 98-107 (test code = 382) CO2 (BEAKER) (test 27 meq/L 22-29 code = 355) BLOOD UREA NITROGEN 9 mg/dL 7-21 (BEAKER) (test code = 354) CREATININE (BEAKER) 0.63 mg/dL 0.57-1.25 (test code = 358) GLUCOSE RANDOM 126 mg/dL 70-105 H (BEAKER) (test code = 652) CALCIUM (BEAKER) 8.9 mg/dL 8.4-10.2 (test code = 697) EGFR (BEAKER) (test 158 mL/min/1.73 ESTIM ATED GFR IS code = 1092) sq m NOT ACCURATE CREATININE CLEARANCE IN PREDICTING GLOMERULAR FILTRATION RATE . ESTIMATED GFR I S NOT APPLICABLE FOR DIALYSIS PATIEN TS. Department Of Mathematics Chair ID - SAHRA [id number] 11:09:00 Test Item Value Reference Range Interpretation Comments PHOSPHORUS (BEAKER) (test code = 4.4 mg/dL 2.3-4.7 604) Department Of Mathematics Chair ID - SAHRA [id number] 11:09:00 Test Item Value Reference Range Interpretation Comments POTASSIUM (BEAKER) (test code = 3.6 meq/L 3.5-5.1 379) Calcium, [id number] 10:48:00 Test Item Value Reference Range Interpretation Comments Calcium, Ion (test code = 1994-3) 1.16 mmol/L 1.12-1.27 pH, Blood (test code = 11129-9) 7.35 [facility], [id number] 10:48:00 Test Item Value Reference Range Interpretation Comments CALCIUM IONIZED (BEAKER) (test 1.16 mmol/L 1.12-1.27 code = 698) PH, BLOOD (BEAKER) (test code = 7.35 1810) RAD, CHEST, 1 VIEW, NON [id number] 10:43:00Reason for exam:->s/p R VATSShould this be performed at the bedside?->Yes [facility] : 1960 Sex: MFINAL REPORT RAD, CHEST, 1 VIEW, NON DEPT INDICATION: s/p R VATS MICHEAL RISON: Prior day's exam FINDINGS: Portable frontal view of the chest. IMPRESSION: Support Lines: Port-A-Cath tip overlies the SVC Lungs and pleura: Increased opacification of the right hemithorax Nopneumothorax.Heart and mediastinum: Stable contours.Additional findings: None. Signed: Twila Escobar Verified Date/Time: 09/30/2020 10:43:01 Reading Location: [facility] Reading Room [id number] 10:42:00 Test Item Value Reference Range Interpretation Comments Protime (test code = 16.0 11.9- 14.2 H 5902-2) seconds INR (test code = 1.32 <=5.90 6301-6) PTT (test code = 33.1 22.5- 36.0 13051-6) seconds MIGUEL A (test code = MIGUEL A) Effective 02/28/2019: PT Reference Range ChangeNew: 11.9-14.2 Previous: 11.7-14.7 RECOMMENDED COUMADIN/WARFARIN INR THERAPY RANGESSTANDARD DOSE: 2.0-3.0 Includes: PROPHYLAXIS for venous thrombosis, systemic embolization; TREATMENT for venous thrombosis and/or pulmonary embolus.HIGH RISK: Target INR is 2.5-3.5 for patients wiht mechanical heart valves. Lab Interpretation Abnormal (test code = 00004-9) [facility]PT[facility][id number] 10:42:00 Test Item Value Reference Range Interpretation Comments PROTIME (BEAKER) (test code = 16.0 seconds 11.9-14.2 H 759) INR (BEAKER) (test code = 370) 1.32 <=5.90 PARTIAL THROMBOPLASTIN TIME 33.1 seconds 22.5-36.0 (BEAKER) (test code = 760) Effective 02/28/2019: PT Reference Range ChangeNew: 11.9-14.2 Previous: 11.7- 14.7RECOMMENDED COUMADIN/WARFARIN INR THERAPY RANGESSTANDARD DOSE: 2.0-3.0 Includes: PROPHYLAXIS for venous thrombosis, systemic embolization; TREATMENT for venous thrombosis and/or pulmonary embolus.HIGH RISK: Target INR is2.5-3.5 for patients wiht mechanical heart valves.CBC (HEMOGRAM ONLY)2020-09-30 10:32:00 Test Item Value Reference Range Interpretation Comments WHITE BLOOD CELL COUNT (BEAKER) 9.4 K/ L 3.5-10.5 (test code = 775) RED BLOOD CELL COUNT (BEAKER) 3.03 M/ L 4.63-6.08 L (test code = 761) HEMOGLOBIN (BEAKER) (test code = 7.1 GM/DL 13.7-17.5 L 410) HEMATOCRIT (BEAKER) (test code = 25.5 % 40.1-51.0 L 411) MEAN CORPUSCULAR VOLUME (BEAKER) 84.2 fL 79.0-92.2 (test code = 753) MEAN CORPUSCULAR HEMOGLOBIN 23.4 pg 25.7-32.2 L (BEAKER) (test code = 751) MEAN CORPUSCULAR HEMOGLOBIN CONC 27.8 GM/DL 32.3-36.5 L (BEAKER) (test code = 752) RED CELL DISTRIBUTION WIDTH 19.3 % 11.6-14.4 H (BEAKER) (test code = 412) PLATELET COUNT (BEAKER) (test 289 K/CU MM 150-450 code = 756) MEAN PLATELET VOLUME (BEAKER) 9.9 fL 9.4-12.4 (test code = 754) NUCLEATED RED BLOOD CELLS 0 /100 WBC 0-0 (BEAKER) (test code = 413) HEMOGLOBIN AND [id number] 10:30:00 Test Item Value Reference Range Interpretation Comments HEMOGLOBIN (BEAKER) (test code = 7.1 GM/DL 13.7-17.5 L 410) HEMATOCRIT (BEAKER) (test code = 25.5 % 40.1-51.0 L 411) Glucose-Stat [id number] 09:11:00 Test Item Value Reference Range Interpretation Comments Glucose (test code = 2345-7) 101 mg/dL 70-110 Lab Interpretation (test code = Normal 96262-0) [facility] [id number] 09:11:00 Test Item Value Reference Range Interpretation Comments GLUCOSE RANDOM (BEAKER) (test code 101 mg/dL 70-110 = 652) HGB/HCT (H&H) - STAT [id number] 09:11:00 Test Item Value Reference Range Interpretation Comments HEMOGLOBIN (BEAKER) (test code = 8.0 GM/DL 13.0-16.8 L 410) HEMATOCRIT (BEAKER) (test code = 24.0 % 40.0-50.0 L 411) POCT-GLUCOSE [id number] 07:38:00 Test Item Value Reference Range Interpretation Comments POC-GLUCOSE METER 116 mg/dL 70-110 H : Notified RN/MD: ([facility]) (test code = TESTED AT [place] [address]) [place] [facility], [id number]: Department Of Mathematics Chair/Techni patrick ID = [id number] for Charo Young POCT-GLUCOSE [id number] 05:55:00 Test Item Value Reference Range Interpretation Comments POC-GLUCOSE METER 54 mg/dL 70-110 L : TESTED A T [facility] 67 ([facility]) (test code = JORGEJAMI Brantley [facility], 1538) [address]: Department Of Mathematics Chair/Techni patrick ID = [id number] for TADEO AN, LACRYSTAL SARS-CoV2/RT-PCR ([facility])2020-09-29 17:14:00 Test Item Value Reference Range Interpretation Comments SARS-COV2/RT-PCR Negative Not Detected, (test code = Negative, See 24666-8) external report for linked test SARS-COV-2 [facility] VIRGEN PERFORMING LAB (test code = 06674-3) MIGUEL A (test code = Negative result for this MIGUEL A) test determines that SARS-CoV-2 RNA was not present in the [...] of the Act. Fact Sheet for Healthcare Providers:https://www.Sina/sites/default/f fidelia/product/documents/F act_Sheet_HC_Providers_L oih_RTQV-TpD-4.pdf Fact Sheet for Healthcare Patients:https://www.[employer]/sites/default/fi les/product/documents/Fa ct_Sheet_Patients_Lyra_S ARS-CoV-2.pdf Performing Laboratory:[facility] [place] [address] [facility] ([facility])2020-09-29 17:14:00 Test Item Value Reference Range Interpretation Comments SARS-COV2/RT-PCR (test Negative Not Detected, Negative, code = 9290261) See external report for linked test SARS-COV-2 PERFORMING LAB [facility] (test code = 2022057) Negative result for this test determines that SARS-CoV-2 RNA was not present in the specimen above the Limit of Detection (LOD). However, Negative results do not preclude SARS-CoV-2 infection and should not be used as the sole basis for treatment or patient management decisions. Negative results mustbe combined with clinical observations, patient history, and epidemiological information. A false negative result may occur if a specimen is improperly collected, transported or handled. A false negative result should be considered if patient's recent exposures or clinical presentation indicate that COVID-19 (SARS-CoV-2) is likely and diagnostic tests for other causes of illness are negative. Re-testing should be considered in cases of suspected false negatives.The limit of detection for this assay is 800 copies/mL.This SARS CoV-2 test is a real-time RT-PCR test intended for the qualitative detection of nucleic acid from SARS-CoV-2 in a nasopharyngeal swab specimen collected from individuals susp ected of COVID-19 by their healthcare provider.This test has not been Food and Drug [...] is revoked under Section 564(g) of the Act.Fact Sheet for Healthcare Providers:https://www.[employer]vel[employer].com/sites/default/files/product/documents/Fact_Shee y_VE_Lzfjhfesl_Wdll_KWUP-GxW-0.pdfFact Sheet for Healthcare Patients:https://www.[employer].com/sites/default/files/product/ documents/Wogu_Eeywy_Rbhxvbjk_Qjpb_CDGI-ToE-8.pdfPerforming Laboratory:[facility], [place] [address]EET, CHEST, 2 VIEWS 2020-09-29 13:54:00Reason for exam:->Pleural effusion [J90] [facility] : 1960 Sex: MFINAL REPORT PA and Lateral views of the chest dated 09/29/2020 MICHEAL RISON: June 16, 2020 Clinical information: Pleural effusion [J90] Comment: Heart is normal in size. Pulmonary vasculature is unremarkable. There is moderate right pleural effusion. Subsegmental atelectasis is seen in the right mid and lower lobes. The rest of lungs are clear. Port-A-Cath remainsin place. IMPRESSION: Right pleural effusion with right mid and lower lobe subsegmental atelectasis.Signed: Maile Tapia MDReport Verified Date/Time: 09/29/2020 13:54:45 Type and screen, [id number] 13:02:00 Test Item Value Reference Range Interpretation Comments ABO/RH AUTOMATED (BEAKER) (test A POSITIVE code = 2260) Ab Scrn (test code = 890-4) NEGATIVE [facility] [id number] 09:29:00 Test Item Value Reference Range Interpretation Comments POC-GLUCOSE METER 88 mg/dL 70-110 : TESTED A T [facility] 6720 (BEAKER) (test code = [place], 1538) [address]: Department Of Mathematics Chair/Techni patrick ID = [id number] for YEN ARANDA IRIS BASIC METABOLIC [id number] 07:08:00 Test Item Value Reference Range Interpretation Comments SODIUM (BEAKER) 139 meq/L 136-145 (test code = 381) POTASSIUM (BEAKER) 3.8 meq/L 3.5-5.1 (test code = 379) CHLORIDE (BEAKER) 104 meq/L 98-107 (test code = 382) CO2 (BEAKER) (test 28 meq/L 22-29 code = 355) BLOOD UREA NITROGEN 10 mg/dL 7-21 (BEAKER) (test code = 354) CREATININE (BEAKER) 0.62 mg/dL 0.57-1.25 (test code = 358) GLUCOSE RANDOM 98 mg/dL 70-105 (BEAKER) (test code = 652) CALCIUM (BEAKER) 8.5 mg/dL 8.4-10.2 (test code = 697) EGFR (BEAKER) (test 161 mL/min/1.73 ESTIM ATED GFR IS code = 1092) sq m NOT ACCURATE CREATININE CLEARANCE IN PREDICTING GLOMERULAR FILTRATION RATE . ESTIMATED GFR I S NOT APPLICABLE FOR DIALYSIS PATIEN TS. Department Of Mathematics Chair ID - EDASICBC W/PLT COUNT & AUTO [id number] 06:44:00 Test Item Value Reference Range Interpretation Comments WHITE BLOOD CELL COUNT (BEAKER) 9.0 K/ L 3.5-10.5 (test code = 775) RED BLOOD CELL COUNT (BEAKER) 3.23 M/ L 4.63-6.08 L (test code = 761) HEMOGLOBIN (BEAKER) (test code = 7.9 GM/DL 13.7-17.5 L 410) HEMATOCRIT (BEAKER) (test code = 27.4 % 40.1-51.0 L 411) MEAN CORPUSCULAR VOLUME (BEAKER) 84.8 fL 79.0-92.2 (test code = 753) MEAN CORPUSCULAR HEMOGLOBIN 24.5 pg 25.7-32.2 L (BEAKER) (test code = 751) MEAN CORPUSCULAR HEMOGLOBIN CONC 28.8 GM/DL 32.3-36.5 L (BEAKER) (test code = 752) RED CELL DISTRIBUTION WIDTH 18.0 % 11.6-14.4 H (BEAKER) (test code = 412) PLATELET COUNT (BEAKER) (test 287 K/CU MM 150-450 code = 756) MEAN PLATELET VOLUME (BEAKER) 10.0 fL 9.4-12.4 (test code = 754) NUCLEATED RED BLOOD CELLS 0 /100 WBC 0-0 (BEAKER) (test code = 413) NEUTROPHILS RELATIVE PERCENT 77 % (BEAKER) (test code = 429) LYMPHOCYTES RELATIVE PERCENT 12 % (BEAKER) (test code = 430) MONOCYTES RELATIVE PERCENT 3 % (BEAKER) (test code = 431) EOSINOPHILS RELATIVE PERCENT 7 % (BEAKER) (test code = 432) BASOPHILS RELATIVE PERCENT 1 % (BEAKER) (test code = 437) NEUTROPHILS ABSOLUTE COUNT 6.92 K/ L 1.78-5.38 H (BEAKER) (test code = 670) LYMPHOCYTES ABSOLUTE COUNT 1.08 K/ L 1.32-3.57 L (BEAKER) (test code = 414) MONOCYTES ABSOLUTE COUNT (BEAKER) 0.26 K/ L 0.30-0.82 L (test code = 415) EOSINOPHILS ABSOLUTE COUNT 0.60 K/ L 0.04-0.54 H (BEAKER) (test code = 416) BASOPHILS ABSOLUTE COUNT (BEAKER) 0.06 K/ L 0.01-0.08 (test code = 417) IMMATURE GRANULOCYTES-RELATIVE 1 % 0-1 PERCENT (BEAKER) (test code = 2801) POCT-GLUCOSE [id number] 21:33:00 Test Item Value Reference Range Interpretation Comments POC-GLUCOSE METER 108 mg/dL 70-110 : TESTED A T [facility] 6720 (BEAKER) (test code = [facility], 1538) [address]: Department Of Mathematics Chair/Techni patrick ID = [id number] for OVIDIO LEONARD POCT-GLUCOSE [id number] 15:38:00 Test Item Value Reference Range Interpretation Comments POC-GLUCOSE METER 91 mg/dL 70-110 : TESTED A T [facility] 6720 (BEAKER) (test code = [facility], 1538) [address]: Department Of Mathematics Chair/Techni patrick ID = [id number] for GIA ARELLANO FL, FLUORO, NON-SPECIFIC, UP TO 1 [id number] 13:55:00Reason for exam:- >abnormal imaging [facility] : 1960 Sex: MFluoroscopic unit utilized for a procedure performed in the OR. No interpretation was requested. Refer to the operative report for findings. Refer to PACS for patient radiation dose information.FL fluoro non-specific up to 1 [id number] 13:55:00Interface, External Ris In - 08/21/2020 5:26 PM CSTFluoroscopic unit utilized for a procedure performed in the OR. No interpretation was requested. Refer to the operative report for findings. Referto PACS for patient radiation dose information.[facility] [id number] 07:42:00 Test Item Value Reference Range Interpretation Comments POC-GLUCOSE METER 110 mg/dL 70-110 : TESTED A T [facility] 6720 (BEAKER) (test code = [facility] [employer] [facility], 1538) [address]: Department Of Mathematics Chair/Techni patrick ID = [id number] for ROSA BEGUM BASIC METABOLIC [id number] 07:15:00 Test Item Value Reference Range Interpretation Comments SODIUM (BEAKER) 139 meq/L 136-145 (test code = 381) POTASSIUM (BEAKER) 3.5 meq/L 3.5-5.1 (test code = 379) CHLORIDE (BEAKER) 102 meq/L 98-107 (test code = 382) CO2 (BEAKER) (test 28 meq/L 22-29 code = 355) BLOOD UREA NITROGEN 13 mg/dL 7-21 (BEAKER) (test code = 354) CREATININE (BEAKER) 0.70 mg/dL 0.57-1.25 (test code = 358) GLUCOSE RANDOM 126 mg/dL 70-105 H (BEAKER) (test code = 652) CALCIUM (BEAKER) 8.3 mg/dL 8.4-10.2 L (test code = 697) EGFR (BEAKER) (test 140 mL/min/1.73 ESTIM ATED GFR IS code = 1092) sq m NOT ACCURATE CREATININE CLEARANCE IN PREDICTING GLOMERULAR FILTRATION RATE . ESTIMATED GFR I S NOT APPLICABLE FOR DIALYSIS PATIEN TS. Department Of Mathematics Chair ID - PIAYA LCBC W/PLT COUNT & AUTO [id number] 06:55:00 Test Item Value Reference Range Interpretation Comments WHITE BLOOD CELL COUNT (BEAKER) 8.3 K/ L 3.5-10.5 (test code = 775) RED BLOOD CELL COUNT (BEAKER) 3.33 M/ L 4.63-6.08 L (test code = 761) HEMOGLOBIN (BEAKER) (test code = 8.1 GM/DL 13.7-17.5 L 410) HEMATOCRIT (BEAKER) (test code = 28.5 % 40.1-51.0 L 411) MEAN CORPUSCULAR VOLUME (BEAKER) 85.6 fL 79.0-92.2 (test code = 753) MEAN CORPUSCULAR HEMOGLOBIN 24.3 pg 25.7-32.2 L (BEAKER) (test code = 751) MEAN CORPUSCULAR HEMOGLOBIN CONC 28.4 GM/DL 32.3-36.5 L (BEAKER) (test code = 752) RED CELL DISTRIBUTION WIDTH 18.3 % 11.6-14.4 H (BEAKER) (test code = 412) PLATELET COUNT (BEAKER) (test 348 K/CU MM 150-450 code = 756) MEAN PLATELET VOLUME (BEAKER) 10.2 fL 9.4-12.4 (test code = 754) NUCLEATED RED BLOOD CELLS 0 /100 WBC 0-0 (BEAKER) (test code = 413) NEUTROPHILS RELATIVE PERCENT 84 % (BEAKER) (test code = 429) LYMPHOCYTES RELATIVE PERCENT 8 % (BEAKER) (test code = 430) MONOCYTES RELATIVE PERCENT 3 % (BEAKER) (test code = 431) EOSINOPHILS RELATIVE PERCENT 4 % (BEAKER) (test code = 432) BASOPHILS RELATIVE PERCENT 0 % (BEAKER) (test code = 437) NEUTROPHILS ABSOLUTE COUNT 6.99 K/ L 1.78-5.38 H (BEAKER) (test code = 670) LYMPHOCYTES ABSOLUTE COUNT 0.63 K/ L 1.32-3.57 L (BEAKER) (test code = 414) MONOCYTES ABSOLUTE COUNT (BEAKER) 0.28 K/ L 0.30-0.82 L (test code = 415) EOSINOPHILS ABSOLUTE COUNT 0.35 K/ L 0.04-0.54 (BEAKER) (test code = 416) BASOPHILS ABSOLUTE COUNT (BEAKER) 0.03 K/ L 0.01-0.08 (test code = 417) IMMATURE GRANULOCYTES-RELATIVE 1 % 0-1 PERCENT (BEAKER) (test code = 2801) SARS-COV2/RT-PCR ([facility])2020-08-21 00:20:00 Test Item Value Reference Range Interpretation Comments SARS-COV2/RT-PCR (test Negative Not Detected, Negative, code = 0236803) See external report for linked test SARS-COV-2 PERFORMING LAB [facility] (test code = 3303925) Negative result for this test determines that SARS-CoV-2 RNA was not present in the specimen above the Limit of Detection (LOD). However, Negative results do not preclude SARS-CoV-2 infection and should not be used as the sole basis for treatment or patient management decisions. Negative results mustbe combined with clinical observations, patient history, and epidemiological information. A false negative result may occur if a specimen is improperly collected, transported or handled. A false negative result should be considered if patient's recent exposures or clinical presentation indicate that COVID-19 (SARS-CoV-2) is likely and diagnostic tests for other causes of illness are negative. Re-testing should be considered in cases of suspected false negatives.The limit of detection for this assay is 100 copies/mL.This SARS CoV-2 test is a real-time RT-PCR test intended for the qualitative detection of nucleic acid from SARS-CoV-2 in a nasopharyngeal swab specimen collected from individuals suspected of COVID-19 by their healthcare provider.This test has not been Food and Drug [...] is revoked under Section 564(g) of the Act.Testing was performed using the [employer] SARS-CoV-2 assay.Fact Sheet for Healthcare Providers:https://www.[employer].vieyra/grant/ TF_IIUB-SdR-4_NKA_Waqy_Tetje_09-256507.pdfFact Sheet for Healthcare Patients:https://www.[employer]/grant/MX_THXH-ShN-4_Ydzsipb_Wqla_Jhdcc_NB_[id number].pdfPerforming Laboratory:[facility] [place], [place] [address]TL, [id number] 12:21:00Reason for exam:->ABDOMINAL PAINWhat is the patient's sedation requirement?->No Sedation [facility] : 1960 Sex: MFINAL REPORT CT of the abdomen and pelvis, with contrast Clinical His tory: Abdominal distensionABDOMINAL PAIN Technique: CT of the abdomen and pelvis is performed with intravenous contrast administration. This exam was performed according to our departmental dose optimization program which includes automated exposure control, adjustment of the mA and/or kV according to patient's size and/or use of iterative reconstructive technique. Comparison Film: June 05, 2020 Discussion: There is a loculated right pleural effusion, associated with marked nodular thickeningof the pleura, which is worse since the prior study. There are enlarged right diaphragmatic lymph nodes. There are serosal deposits along the liver surface, progressed since the prior study, with two dominant nodular foci noted at the dome region, measuring 2.7 cm and 2.3 cm, and another dominant deposit is seen along the inferior right lobe, measuring 2 cm. No biliary ductal dilatation. Gallbladder is normal. The spleen, pancreas are unremarkable. A left adrenal mass measures 3.3 x 4.2 cm, without interval change. Normal right adrenal gland. Kidneys demonstrate no mass, hydronephrosis or radiopaque stone. There is a stent in the descending colon. There is increased distention of the colon proximal to the stent, suggesting obstruction. Small bowel is normal in caliber. In the pelvis, bladder is normal. Prostate is mildly prominent. There is mild degree of omental carcinomatosis not significantlychanged. No free air, or ascites. No new adenopathy. Bony structures demonstrate degenerative changes. No suspicious lesion is identified. Impression: Colonic distention proximal to the stent in the descending colon, suggesting obstruction. Interval progression of right pleural, and hepatic serosal metastatic deposits. Omental carcinomatosis is grossly unchanged. Stable left adrenal mass. Signed: Stefanie Royeport Verified Date/Time: 08/20/2020 12:21:52 Reading Location: [facility] C013X [facility] CT abdomen pelvis with IV [id number] 12:21:00Interface, External Ris In - 08/20/2020 12:[address] of the ab domen and pelvis, with contrast Clinical History: Abdominal distensionABDOMINAL PAIN Technique: CT of the abdomen and pelvis is performed with intravenous contrast administration. This exam was performed according to our departmental dose optimization program which includes automated exposure control, adjustment of the mA and/or kV according to patient's size and/or use of iterative reconstructive technique. Comparison Film: June 05, 2020 Discussion: There is a loculated right pleural effusion, associated with marked nodular thickening of the pleura, which is worse since the prior study. There are enlarged right diaphragmatic lymph nodes. There are serosal deposits along the liver surface, p rogressed since the prior study, with two dominant nodular foci noted at the dome region, measuring 2.7 cm and 2.3 cm, and another dominant deposit is seen along the inferior right lobe, measuring 2 cm. No biliary ductal dilatation. Gallbladder is normal. The spleen, pancreas are unremarkable. A left adrenal mass measures 3.3 x 4.2 cm, without interval change. Normal right adrenal gland. Kidneys demonstrate no mass, hydronephrosis or radiopaque stone. There is a stent in the descending colon. There is increased distention of the colon proximal to the stent, suggesting obstruction. Small bowel is normal in caliber. In the pelvis, bladder is normal. Prostate is mildly prominent. There is mild degreeof omental carcinomatosis not significantly changed. No free air, or ascites. No new adenopathy. Bony structures demonstrate degenerative changes. No suspicious lesion is identified. Impression: Colonic distention proximal to the stent in the descending colon, suggesting obstruction. Interval progression of right pleural, and hepatic serosal metastatic deposits. Omental carcinomatosis is grossly unchanged. Stable left adrenal mass. Signed: Stefanie Roy MDReport Verified Date/Time: 08/20/2020 12:21:52 Reading Location: [facility] C013X Ortho Consult Reading [facility] [id number] 12:05:00 Test Item Value Reference Range Interpretation Comments TROPONIN I (BEAKER) (test code = 397) < ng/mL 0.00-0.03 Troponin I (TnI) levels [...] failure, acidosis, acute neurological disease, and persistent tachyarrhythmia.Comprehensive metabolic [id number] 11:03:00 Test Item Value Reference Range Interpretation Comments Protein, Total (test 8.6 6.0- 8.3 gm/dL H Speci men slightly code = 2885-2) hemolyzed Albumin (test code = 4.4 g/dL 3.5-5 Specime n slightly 04959-6) hemolyzed Alkaline Phosphatase 75 U/L 40-150 (test code = 6768-6) Total Bilirubin (test 0.3 mg/dL 0.2-1.2 Specim en slightly code = 1975-2) hemolyzed Sodium (test code = 134 meq/L 136-145 L 2951-2) Potassium (test code = 3.9 meq/L 3.5-5.1 Speci men slightly 2823-3) hemolyzed Chloride (test code = 99 meq/L 98-107 2075-0) CO2 (test code = 29 meq/L 22-29 8-9) BUN (test code = 12 mg/dL 7-21 3094-0) Creatinine (test code = 0.68 mg/dL 0.57-1.25 Spec imen slightly 2160-0) hemolyzed Glucose (test code = 110 mg/dL 70-105 H 2345-7) Calcium (test code = 9.1 mg/dL 8.4-10.2 82993-5) AST (test code = 25 U/L 5-34 Specimen sl ightly 1920-8) hemolyzed ALT (test code = 10 U/L 6-55 Specimen sl ightly 1742-6) hemolyzed EGFR (test code = 145 mL/min/1.73 [place] [address]-1) NOT ACCURATE CREATININE CLEARANCE IN PREDICTING GLOMERULAR FILTRATION RATE . ESTIMATED GFR I S NOT APPLICABLE FOR DIALYSIS PATIEN TS. Lab Interpretation Abnormal (test code = 47847-9) [facility]00 Test Item Value Reference Range Interpretation Comments Lipase (test code = 3040-3) 26 U/L 8-78 Lab Interpretation (test code = Normal 79195-5) [facility] HospitalL[facility], [id number] 11:03:00 Test Item Value Reference Range Interpretation Comments Lactate, Venous (test 1.60 mmol/L 0.5-2.2 Specim en markedly code = 2872) hemolyzed Lab Interpretation (test Normal code = 31476-1) [facility]COM[facility] METABOLIC [id number] 11:03:00 Test Item Value Reference Range Interpretation Comments TOTAL PROTEIN 8.6 gm/dL 6.0-8.3 H Specimen sligh tly (BEAKER) (test code = hemoly zed 770) ALBUMIN (BEAKER) 4.4 g/dL 3.5-5.0 Specimen sl ightly (test code = 1145) hemolyzed ALKALINE PHOSPHATASE 75 U/L 40-150 (BEAKER) (test code = 346) BILIRUBIN TOTAL 0.3 mg/dL 0.2-1.2 Specimen sli ghtly (BEAKER) (test code = hemoly zed 377) SODIUM (BEAKER) (test 134 meq/L 136-145 L code = 381) POTASSIUM (BEAKER) 3.9 meq/L 3.5-5.1 Specimen slightly (test code = 379) hemolyzed CHLORIDE (BEAKER) 99 meq/L 98-107 (test code = 382) CO2 (BEAKER) (test 29 meq/L 22-29 code = 355) BLOOD UREA NITROGEN 12 mg/dL 7-21 (BEAKER) (test code = 354) CREATININE (BEAKER) 0.68 mg/dL 0.57-1.25 Specimen slightly (test code = 358) hemolyzed GLUCOSE RANDOM 110 mg/dL 70-105 H (BEAKER) (test code = 652) CALCIUM (BEAKER) 9.1 mg/dL 8.4-10.2 (test code = 697) AST (SGOT) (BEAKER) 25 U/L 5-34 Specimen slightly (test code = 353) hemolyzed ALT (SGPT) (BEAKER) 10 U/L 6-55 Specimen slightly (test code = 347) hemolyzed EGFR (BEAKER) (test 145 ESTIMATE D GFR IS code = 1092) mL/min/1.73 sq NOT ACCURA TE m CREATININE CLEARANCE IN PREDICTING GLOMERULAR FILTRATION RATE . ESTIMATED GFR I S NOT APPLICABLE FOR DIALYSIS PATIEN TS. [id number] 11:03:00 Test Item Value Reference Range Interpretation Comments LIPASE (BEAKER) (test code = 749) 26 U/L 8-78 LACTIC ACID, [id number] 11:03:00 Test Item Value Reference Range Interpretation Comments LACTATE BLOOD VENOUS 1.60 mmol/L 0.50-2.20 Specime n markedly (2) (BEAKER) (test hemolyzed code = 2872) Urinalysis w/Microscopic + Reflex to [id number] 10:25:00 Test Item Value Reference Range Interpretation Comments Color, UA (test code = 5778-6) Yellow Clarity, UA (test code = 5767-9) Clear Specific [place], UA (test code = 1.020 1.005-1.030 5811-5) pH, UA (test code = 5803-2) 6.0 5.0-9.0 Protein, UA (test code = 70740-7) Negative Negative Glucose, UA (test code = 365) Negative Negative Ketones, UA (test code = 2514-8) Negative Negative Bilirubin, UA (test code = Negative Negative 94622-3) Blood, UA (test code = 93327-2) Trace Negative A Nitrite, UA (test code = 5802-4) Negative Negative Leukocytes, UA (test code = Negative Negative 5799-2) Urobilinogen, UA (test code = 0.2 mg/dL 0.2-1 55245-2) Bacteria, UA (test code = 30465-0) Occasional RBC, UA (test code = 799-7) <5 /HPF WBC, UA (test code = 77742-6) <5 /HPF Specimen Source (test code = 2795) Lab Interpretation (test code = Abnormal 70718-6) [facility] URINE [id number] 10:25:00 Test Item Value Reference Range Interpretation Comments COLOR (BEAKER) (test code = 470) Yellow CLARITY (BEAKER) (test code = 469) Clear SPECIFIC GRAVITY UA (BEAKER) (test 1.020 1.005-1.030 code = 468) PH UA (BEAKER) (test code = 467) 6.0 5.0-9.0 PROTEIN UA (BEAKER) (test code = Negative Negative 464) GLUCOSE UA (BEAKER) (test code = Negative Negative 365) KETONES UA (BEAKER) (test code = Negative Negative 371) BILIRUBIN UA (BEAKER) (test code = Negative Negative 462) BLOOD UA (BEAKER) (test code = Trace Negative A 461) NITRITE UA (BEAKER) (test code = Negative Negative 465) LEUKOCYTE ESTERASE UA (BEAKER) Negative Negative (test code = 466) UROBILINOGEN UA (BEAKER) (test 0.2 mg/dL 0.2-1.0 code = 463) BACTERIA (BEAKER) (test code = Occasional 517) RBC UA-MANUAL (BEAKER) (test code <5 /HPF = 1659) WBC UA-MANUAL (BEAKER) (test code <5 /HPF = 1661) SOURCE(BEAKER) (test code = 2795) CBC W/PLT COUNT & AUTO [id number] 10:20:00 Test Item Value Reference Range Interpretation Comments WHITE BLOOD CELL COUNT (BEAKER) 10.0 K/ L 3.5-10.5 (test code = 775) RED BLOOD CELL COUNT (BEAKER) 4.01 M/ L 4.63-6.08 L (test code = 761) HEMOGLOBIN (BEAKER) (test code = 9.9 GM/DL 13.7-17.5 L 410) HEMATOCRIT (BEAKER) (test code = 33.6 % 40.1-51.0 L 411) MEAN CORPUSCULAR VOLUME (BEAKER) 83.8 fL 79.0-92.2 (test code = 753) MEAN CORPUSCULAR HEMOGLOBIN 24.7 pg 25.7-32.2 L (BEAKER) (test code = 751) MEAN CORPUSCULAR HEMOGLOBIN CONC 29.5 GM/DL 32.3-36.5 L (BEAKER) (test code = 752) RED CELL DISTRIBUTION WIDTH 18.4 % 11.6-14.4 H (BEAKER) (test code = 412) PLATELET COUNT (BEAKER) (test 511 K/CU MM 150-450 H code = 756) MEAN PLATELET VOLUME (BEAKER) 11.1 fL 9.4-12.4 (test code = 754) NEUTROPHILS RELATIVE PERCENT 82 % (BEAKER) (test code = 429) LYMPHOCYTES RELATIVE PERCENT 12 % (BEAKER) (test code = 430) MONOCYTES RELATIVE PERCENT 5 % (BEAKER) (test code = 431) EOSINOPHILS RELATIVE PERCENT 1 % (BEAKER) (test code = 432) BASOPHILS RELATIVE PERCENT 0 % (BEAKER) (test code = 437) NEUTROPHILS ABSOLUTE COUNT 8.15 K/ L 1.78-5.38 H (BEAKER) (test code = 670) LYMPHOCYTES ABSOLUTE COUNT 1.14 K/ L 1.32-3.57 L (BEAKER) (test code = 414) MONOCYTES ABSOLUTE COUNT (BEAKER) 0.50 K/ L 0.30-0.82 (test code = 415) EOSINOPHILS ABSOLUTE COUNT 0.11 K/ L 0.04-0.54 (BEAKER) (test code = 416) BASOPHILS ABSOLUTE COUNT (BEAKER) 0.01 K/ L 0.01-0.08 (test code = 417) IMMATURE GRANULOCYTES-RELATIVE 0 % 0-1 PERCENT (BEJUAN LUIS) (test code = 2801) ECG/EKG [id number] 09:50:55Wojciech Mcdermott MD 08/20/2020 10:34 AMECG/EKG Interpretation Date/Time: 08/20/2020 10:34 AMPerformed by: Wojciech Mcdermott MDAuthorized by: Wojciech Mcdermott MD The ECG was interpreted by ED physician. Comments: Sinus with PACs, rate 83, pr 152, qrs 82, qtc 465, normal axis, no sig dayanara/std, twi inferolaterallyCH[facility] [id number] 00:00:00Ordered by an unspecified provider.[facility] CenterANG, REMOVAL OF INDWELLING TUNNELED PLEURAL CATH W/[id number] 16:22:00Reason for Exam:->Pleur-X no longer draining, needs removalFINAL REPORT History: Recurrent right pleural effusions, patient no longer needs tunneled pleural catheter Procedure: Following informed written consent, the patient's existing right tunneled pleural catheter and surrounding skin site were prepped and draped in the usual sterile manner. 2% lidocaine was given locally for anesthesia. No conscious sedation was administered. The catheter cuff was bluntly dissected from the subcutaneous tunnel and the catheter was removed withoutcomplications. Impression: 1. Successful uncomplicated removal of the patient's right tunneled pleural catheter. No fluoroscopy was utilized for this procedure and no images were obtained. Signed: Lalita Goodman MDReport Verified Date/Time: 06/24/2020 16:22:21 Reading Location: [place] [address] Angio Body Reading Room IR Removal Indwelling Tunneled Pleural Cath w/[id number] 16:22:00Interface, External Ris In - 06/24/2020 4:24 PM CDTFINAL REPORT History: Recurrent right pleural effusions, patient no longer needs tunneled pleural catheter Procedure: Following informed written consent, the patient's existing right tunneled pleural catheter and surrounding skin site were prepped and draped in the usual sterile manner. 2% lidocaine was given locally for anest hesia. No conscious sedation was administered. The catheter cuff was bluntly dissected from the subcutaneous tunnel and the catheter was removed without complications. Impression: 1. Successful uncomplicated removal of the patient's right tunneled pleural catheter. No fluoroscopy was utilized for this procedure and no images were obtained. Signed: Lalita Goodmaneport Verified Date/Time: 06/24/2020 16:22:21 Reading Location: [place] [id number] Angio Body Reading [facility]ST, 1 VIEW, NON [id number] 12:14:00 Reason for exam:->pleural drain removedShould this be performed at the bedside?->YesFINAL REPORT Chest, one view History: Removal of pleural drain Comparison: 05/12/2020 Findings:Left lung is clear. Unchanged right basilar consolidation, which could represent compressive atelectasis. Normal size heart. Moderate right pleural effusion, unchanged. Interval removal of previous right pleural drainage catheter. No pneumothorax is appreciated. Unchanged position ofright-sided Port-A-Cath, which terminates in the superior vena cava. Impression:Interval removal of previous right pleural drain. Otherwise, no significant interval change. Signed: Yaron Abebe MDR eport Verified Date/Time: 06/16/2020 12:14:55 Reading Location: [facility] Radiology Reading Room Prothrombin time/[id number] 08:47:00 Test Item Value Reference Range Interpretation Comments Protime (test code = 15.6 11.9- 14.2 H 5902-2) seconds INR (test code = 1.28 <=5.90 6301-6) MIGUEL A (test code = MIGUEL A) Effective 02/28/2019: PT Reference Range ChangeNew: 11.9-14.2 Previous: 11.7-14.7 RECOMMENDED COUMADIN/WARFARIN INR THERAPY RANGESSTANDARD DOSE: 2.0-3.0 Includes: PROPHYLAXIS for venous thrombosis, systemic embolization; TREATMENT for venous thrombosis and/or pulmonary embolus.HIGH RISK: Target INR is 2.5-3.5 for patients wiht mechanical heart valves. Lab Interpretation Abnormal (test code = 83928-1) [facility] HospitalaPTT2020-09-[facility] 08:47:00 Test Item Value Reference Range Interpretation Comments PTT (test code = 03883-6) 29.4 22.5- 36.0 seconds Lab Interpretation (test code = Normal 34165-4) [facility] HospitalPROTHROMBIN TIME/[id number] 08:47:00 Test Item Value Reference Range Interpretation Comments PROTIME (BEAKER) (test code = 15.6 seconds 11.9-14.2 H 759) INR (BEAKER) (test code = 370) 1.28 <=5.90 Effective 02/28/2019: PT Reference Range ChangeNew: 11.9-14.2 Previous: 11.7- 14.7RECOMMENDED COUMADIN/WARFARIN INR THERAPY RANGESSTANDARD DOSE: 2.0-3.0 Includes: PROPHYLAXIS for venous thrombosis, systemic embolization; TREATMENT for venous thrombosis and/or pulmonary embolus.HIGH RISK: Target INR is2.5-3.5 for patients wiht mechanical heart valves.[id number] 08:47:00 Test Item Value Reference Range Interpretation Comments PARTIAL THROMBOPLASTIN TIME 29.4 seconds 22.5-36.0 (BEAKER) (test code = 760) CBC W/PLT COUNT & AUTO [id number] 08:39:00 Test Item Value Reference Range Interpretation Comments WHITE BLOOD CELL COUNT (BEAKER) 4.1 K/ L 3.5-10.5 (test code = 775) RED BLOOD CELL COUNT (BEAKER) 3.25 M/ L 4.63-6.08 L (test code = 761) HEMOGLOBIN (BEAKER) (test code = 8.3 GM/DL 13.7-17.5 L 410) HEMATOCRIT (BEAKER) (test code = 29.0 % 40.1-51.0 L 411) MEAN CORPUSCULAR VOLUME (BEAKER) 89.2 fL 79.0-92.2 (test code = 753) MEAN CORPUSCULAR HEMOGLOBIN 25.5 pg 25.7-32.2 L (BEAKER) (test code = 751) MEAN CORPUSCULAR HEMOGLOBIN CONC 28.6 GM/DL 32.3-36.5 L (BEAKER) (test code = 752) RED CELL DISTRIBUTION WIDTH 16.9 % 11.6-14.4 H (BEAKER) (test code = 412) PLATELET COUNT (BEAKER) (test 341 K/CU MM 150-450 code = 756) MEAN PLATELET VOLUME (BEAKER) 9.6 fL 9.4-12.4 (test code = 754) NUCLEATED RED BLOOD CELLS 0 /100 WBC 0-0 (BEAKER) (test code = 413) NEUTROPHILS RELATIVE PERCENT 62 % (BEAKER) (test code = 429) LYMPHOCYTES RELATIVE PERCENT 25 % (BEAKER) (test code = 430) MONOCYTES RELATIVE PERCENT 5 % (BEAKER) (test code = 431) EOSINOPHILS RELATIVE PERCENT 7 % (BEAKER) (test code = 432) BASOPHILS RELATIVE PERCENT 1 % (BEAKER) (test code = 437) NEUTROPHILS ABSOLUTE COUNT 2.54 K/ L 1.78-5.38 (BEAKER) (test code = 670) LYMPHOCYTES ABSOLUTE COUNT 1.01 K/ L 1.32-3.57 L (BEAKER) (test code = 414) MONOCYTES ABSOLUTE COUNT (BEAKER) 0.22 K/ L 0.30-0.82 L (test code = 415) EOSINOPHILS ABSOLUTE COUNT 0.28 K/ L 0.04-0.54 (BEAKER) (test code = 416) BASOPHILS ABSOLUTE COUNT (BEAKER) 0.04 K/ L 0.01-0.08 (test code = 417) IMMATURE GRANULOCYTES-RELATIVE 1 % 0-1 PERCENT (BEAKER) (test code = 2801) CT, CHEST, WITH IV [id number] 10:54:00Unlisted Reason for Exam - Click Yes and Enter Reason Below->YesUnlisted Reason for Exam->Colon cancer metastasized to multiple sitesFINAL REPORT EXAM: CT, ABDOMEN \\T\\ PELVIS, WITH IV CONTRAST, CT, CHEST, WITH IV CONTRAST CLINICAL HISTORY: Unlisted Reason for ExamColon cancer metastasized to multiple sites COM PARISON: CT pulmonary angiogram 04/22/2020, CT chest abdomen and pelvis 03/13/2020 REFERRING PHYSICIAN: Dr. SOLITARIO. TECHNIQUE: A CT scan of the chest, abdomen, and pelvis. After the uncomplicated administration of intravenous contrast material, volumetric imaging of the chest, abdomen, and pelvis was performed with coronal and sagittal reconstructions. Oral contrast was not administered. Dose modulation, iterative reconstruction, and/or weight-based adjustment of the mA/kV was utilized to reduce the radiation dose to as low as reasonably achievable. FINDINGS: ONCOLOGIC FINDINGS: History of colon cancer, with a stent across the descending colonic mass, and a right pleural catheter in place, with:- Increasing pleural thickening and nodularity on the right compared with 03/13/2020.-Large right pleural effusion is grossly unchanged in size otherwise.- Peritoneal nodularity and omental nodularity (most notable axial image 79 in the omentum and axial image 87 and the right lateral peritoneum), slightly more conspicuous than 03/13/2020.-Capsular implants and/or peritoneal implants adjacent to the liver with mild contour nodularity (axial image 54), similar to 04/22/2020, perhaps slightly progressed from 03/13/2020.-Suspicious right anterior supradiaphragmatic lymph nodes, up to 12 mm short axis, minimallyincreasing conspicuity from 03/13/2020-Left adrenal mass, 38 x 36 mm, unchanged from on 03/13/2020 ADDITIONAL FINDINGS: CHEST:Lungs: Consolidation and subpleural nodularity in the right lung, not convincingly changed from prior exam 04/22/2020. Minimal subsegmental left lower lobe atelectasis. Otherwise grossly clear left lung. Lymph nodes and Mediastinum: As above. Unchanged 13 mm short axis subcarinalnode. Otherwise no definite mediastinal lymphadenopathy. Left lower lobe consolidation has resolved since 04/22/2020, may have been related to a small pulmonary infarct.Pleura: As above.Cardiovascular: The pulmonary emboli seen on CT PE 04/22/2020 are not visualized, although this exam was not tailored for evaluation of the pulmonary vasculature. Right chest wall Port-A-Cath with tip at the upper SVC, catheter partially coiled in the right internal jugular vein. Coronary artery calcifications and atherosclerotic calcificationsOther: Unremarkable. ABDOMEN/PELVIS: Liver: As above.Gallbladder and bile ducts: Unremarkable.Spleen, pancreas, adrenals: Left adrenal mass as above. Otherwise unremarkableKidneys and ureters: Unremarkable.Bowel: As above. Wall thickening of the colon about the stent, not convincingly changed. No evidence for bowel obstruction. Normal appendix.Bladder and reproductive organs: Underdistended bladder.Lymph nodes: No lymphadenopathy.Peritoneum: As above.Vessels: Moderate atherosclerotic calcifications.Abdominal wall: Extensive subcutaneous nodularity and foci of soft tissue gas and skin thickening in the bilateral anterior abdominal wall upper and lower quadrants is new, likely related to subcutaneous medication administration. MUSCULOSKELETAL:Multilevel degenerative changes of the thoracolumbar spine. Small nonspecific lytic focus in the left pubic bone, unchanged over multiple exams and likely benign. 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 IMPRESSION: History of colon cancer, with a descending colonic stent and a right pleural catheter, with: 1.Suggestion of some mildly increased disease, extensive right pleural and peritoneal/omental nodularity appears slightly worse than 03/13/2020.2.Right anterior supradiaphragmatic lymph nodes continue to minimally increased in conspicuity.3.Unchanged left adrenal mass.4.Unchanged size of the large right pleural effusion. Signed: Angelita Rae Verified Date/Time: 06/05/2020 10:54:37 Reading Location: [address] Body Reading Room CT, [id number] 10:54:00Unlisted Reason for Exam - Click Yes and Enter Reason Below- >YesUnlisted Reason for Exam->Colon cancer metastasized to multiple sites FINAL REPORT EXAM: CT, ABDOMEN \\T\\ PELVIS, WITH IV CONTRAST, CT, CHEST, WITH IV CONTRAST CLINICAL HISTORY: Unlisted Reason for ExamColon cancer metastasized to multiple sites COMPARISON: CT pulmonary angiogram 04/22/2020, CT chest abdomen and pelvis 03/13/2020 REFERRING PHYSICIAN: Dr. SOLITARIO. TECHNIQUE: A CT scan of the chest, abdomen, and pelvis. After the uncomplicated administration of intravenous contrast material, volumetric imaging of the chest, abdomen, and pelvis was performed with coronal and sagittal reconstructions. Oral contrast was not administered. Dose modulation, iterative reconstruction, and/or weight-based adjustment of the mA/kV was utilized to reduce the radiation dose to as low as reasonably achievable. FINDINGS: ONCOLOGIC FINDINGS: History of colon cancer, with a stent across the descending colonic mass, and a right pleural catheter in place, with:- Inc reasing pleural thickening and nodularity on the right compared with 03/13/2020.- Large right pleural effusion is grossly unchanged in size otherwise.-Peritoneal nodularity and omental nodularity (most notable axial image 79 in the omentum and axial image 87 and the right lateral peritoneum), slightly more conspicuous than 03/13/2020.-Capsular implants and/or peritoneal implants adjacent to the liver with mild contour nodularity (axial image 54), similar to 04/22/2020, perhaps slightly progressed from 03/13/2020.-Suspicious right anterior supradiaphragmatic lymph nodes, up to 12 mm short axis, minimallyincreasing conspicuity from 03/13/2020-Left adrenal mass, 38 x 36 mm, unchanged from on 03/13/2020 ADDITIONAL FINDINGS: CHEST:Lungs: Consolidation and subpleural nodularity in the right lung, not convincingly changed from prior exam 04/22/2020. Minimal subsegmental left lower lobe atelectasis. Otherwise grossly clear left lung. Lymph nodes and Mediastinum: As above. Unchanged 13 mm short axis subcarinalnode. Otherwise no definite mediastinal lymphadenopathy. Left lower lobe consolidation has resolved since 04/22/2020, may have been related to a small pulmonary infarct.Pleura: As above.Cardiovascular: The pulmonary emboli seen on CT PE 04/22/2020 are not visualized, although this exam was not tailored for evaluation of the pulmonary vasculature. Right chest wall Port-A-Cath with tip at the upper SVC, catheter partially coiled in the right internal jugular vein. Coronary artery calcifications and atherosclerotic calcificationsOther: Unremarkable. ABDOMEN/PELVIS: Liver: As above.Gallbladder and bile ducts: Unremarkable.Spleen, pancreas, adrenals: Left adrenal mass as above. Otherwise unremarkableKidneys and ureters: Unremarkable.Bowel: As above. Wall thickening of the colon about the stent, not convincingly changed. No evidence for bowel obstruction. Normal appendix.Bladder and reproductive organs: Underdistended bladder.Lymph nodes: No lymphadenopathy.Peritoneum: As above.Vessels: Moderate atherosclerotic calcifications.Abdominal wall: Extensive subcutaneous nodularity and foci of soft tissue gas and skin thickening in the bilateral anterior abdominal wall upper and lower quadrants is new, likely related to subcutaneous medication administration. MUSCULOSKELETAL:Multilevel degenerative changes of the thoracolumbar spine. Small nonspecific lytic focus in the left pubic bone, unchanged over multiple exams and likely benign. 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 IMPRESSION: History of colon cancer, with a descending colonic stent and a right pleural catheter, with: 1.Suggestion of some mildly increased disease, extensive right pleural and peritoneal/omental nodularity appears slightly worse than 03/13/2020.2.Right anterior supradiaphragmatic lymph nodes continue to minimally increased in conspicuity.3.Unchanged left adrenal mass.4.Unchanged size of the large right pleural effusion. Signed: Angelita Rae MDReport Verified Date/Time: 06/05/2020 10:54:37 Reading Location: [facility] C013Y CT Body Reading Room CT Chest with IV Contrast 2020-06-05 10:54:00Interface, External Ris In - 06/05/2020 10:56 AM CDTFINAL REPORT EXAM: CT, ABDOMEN \\T\\ PELVIS, WITH IV CONTRAST, CT, CHEST, WITH IV CONTRAST CLINICAL HISTORY: Unlisted Reason for ExamColon cancer metastasized to multiple sites COMPARISON: CT pulmonary angiogram 04/22/2020, CT chest abdomen and pelvis 03/13/2020 REFERRING PHYSICIAN: Dr. SOLITARIO. TECHNIQUE: A CT scan of the chest, abdomen, and pelvis. After the uncomplicated administration of intravenous contrast material, volumetric imaging of the chest, abdomen, and pelvis was performed with coronal and sagittal reconstructions. Oral contrast was not administered. Dose modulation, iterative reconstruction, and/or weight-based adjustment of the mA/kV was utilized to reduce the radiation dose to as low as reasonably achievable. FINDINGS: ONCOLOGIC FINDINGS: History of colon cancer, with a stent across the descending colonic mass, and a right pleural catheter in place, with:- Increasing pleural thickening and nodularity on theright compared with 03/13/2020.-Large right pleural effusion is grossly unchanged in size otherwise.-Peritoneal nodularity and omental nodularity (most notable axial image 79 in the omentum and axial image 87 and the right lateral peritoneum), slightly more conspicuous than 03/13/2020.-Capsular implantsand/or peritoneal implants adjacent to the liver with mild contour nodularity (axial image 54), similar to 04/22/2020, perhaps slightly progressed from 03/13/2020.-Suspicious right anterior supradiaphragmatic lymph nodes, up to 12 mm short axis, minimally increasing conspicuity from 03/13/2020-Left adrenal mass, 38 x 36 mm, unchanged from on 03/13/2020 ADDITIONAL FINDINGS: CHEST:Lungs: Consolidation and subpleural nodularity in the right lung, not convincingly changed from prior exam 04/22/2020. Minimal subsegmental left lower lobe atelectasis. Otherwise grossly clear left lung. Lymph nodes and Mediastinum: As above. Unchanged 13 mm short axis subcarinal node. Otherwise no definite mediastinal lymphadenopathy. Left lower lobe consolidation has resolved since 04/22/2020, may have been related to a smallpulmonary infarct.Pleura: As above.Cardiovascular: The pulmonary emboli seen on CT PE 04/22/2020 are not visualized, although this exam was not tailored for evaluation of the pulmonary vasculature. Right chest wall Port-A-Cath with tip at the upper SVC, catheter partially coiled in the right internal jugular vein. Coronary artery calcifications and atherosclerotic calcificationsOther: Unremarkable. ABDOMEN/PELVIS: Liver: As above.Gallbladder and bile ducts: Unremarkable.Spleen, pancreas, adrenals: Left adrenal mass as above. Otherwise unremarkableKidneys and ureters: Unremarkable.Bowel: As above. Wall thickening of the colon about the stent, not convincingly changed. No evidence for bowel obstruction. Normal appendix.Bladder and reproductive organs: Underdistended bladder.Lymph nodes: No lymphadenopathy.Peritoneum: As above.Vessels: Moderate atherosclerotic calcifications.Abdominal wall: Extensive subcutaneous nodularity and foci of soft tissue gas and skin thickening in the bilateral anterior a bdominal wall upper and lower quadrants is new, likely related to subcutaneous medication administration. MUSCULOSKELETAL:Multilevel degenerative changes of the thoracolumbar spine. Small nonspecific lytic focus in the left pubic bone, unchanged over multiple exams and likely benign. 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 IMPRESSION: History of colon cancer, with a descending colonicstent and a right pleural catheter, with: 1.Suggestion of some mildly increased disease, extensive right pleural and peritoneal/omental nodularity appears slightly worse than 03/13/2020.2.Right anterior supradiaphragmatic lymph nodes continue to minimally increased in conspicuity.3.Unchanged left adrenal mass.4.Unchanged size of the large right pleural effusion. Signed: Angelita Rae Verified Date/Time: 06/05/2020 10:54:37 Reading Location: [facility] C013Y CT [facility] [id number] 15:35:00Reason for Exam:->Colon cancer metastasized to multiple sitesFINAL REPORT EXAM: RAD, CHEST, 2 VIEWSDATE: 05/12/2020 1:30 PM INDICATION: Colon cancer metastasized to multiple sitesCOMPARISON: Chest x-ray, 04/22/2020; chest CT, 04/22/2020 FIND INGS:Lines and tubes: Stable appearance of right chest port with IJ catheter extending to lower SVC.Stable tunneled pleural drainage catheter at the right base Heart size normal. Again noted is opacification of the lower right hemithorax likely representing combined pleural effusion and atelectasis. U nderlying mass or pleural thickening not excluded. The left lung is expanded and clear. No pneumothorax. Upper abdomen unremarkable. No acute bony abnormality. IMPRESSION:Stable appearance of the chestwith opacification of the lower right hemithorax compatible with atelectasis, pleural thickening andpleural fluid. Signed: Jermaine Menjivar MDReport Verified Date/Time: 05/12/2020 15:35:02 Reading Location: [facility] Reading Room [address] [place] [address] POCT-GLUCOSE [id number] 11:41:00 Test Item Value Reference Range Interpretation Comments POC-GLUCOSE METER 173 mg/dL 70-110 H : TESTED A T [facility] 6720 ([employer]) (test code = NAMITA Brantley [facility], 153) 08245: Department Of Mathematics Chair/Techni patrick ID = [id number] for GISELL WASSERMAN POCT-GLUCOSE [id number] 09:15:00 Test Item Value Reference Range Interpretation Comments POC-GLUCOSE METER 149 mg/dL 70-110 H : TESTED A T [facility] 6720 (BEAKER) (test code = NAMITA Brantley [facility], 1538) 68158: Department Of Mathematics Chair/Techni patrick ID = [id number] for CHARO MCDANIEL [id number] 06:46:00 Test Item Value Reference Range Interpretation Comments PHOSPHORUS (BEAKER) (test code = 3.5 mg/dL 2.3-4.7 604) Department Of Mathematics Chair ID Carmencita BAIN [id number] 06:46:00 Test Item Value Reference Range Interpretation Comments MAGNESIUM (BEAKER) (test code = 2.1 mg/dL 1.6-2.6 627) Department Of Mathematics Chair ID Carmencita BAIN WBASIC METABOLIC [id number] 06:46:00 Test Item Value Reference Range Interpretation Comments SODIUM (BEAKER) 140 meq/L 136-145 (test code = 381) POTASSIUM (BEAKER) 4.1 meq/L 3.5-5.1 (test code = 379) CHLORIDE (BEAKER) 104 meq/L 98-107 (test code = 382) CO2 (BEAKER) (test 31 meq/L 22-29 H code = 355) BLOOD UREA NITROGEN 11 mg/dL 7-21 (BEAKER) (test code = 354) CREATININE (BEAKER) 0.89 mg/dL 0.57-1.25 (test code = 358) GLUCOSE RANDOM 142 mg/dL 70-105 H (BEAKER) (test code = 652) CALCIUM (BEAKER) 9.1 mg/dL 8.4-10.2 (test code = 697) EGFR (BEAKER) (test 106 mL/min/1.73 ESTIM ATED GFR IS code = 1092) sq m NOT ACCURATE CREATININE CLEARANCE IN PREDICTING GLOMERULAR FILTRATION RATE . ESTIMATED GFR I S NOT APPLICABLE FOR DIALYSIS PATIEN TS. Department Of Mathematics Chair ID Carmencita BAIN WCBC (HEMOGRAM ONLY)2020-04-28 05:50:00 Test Item Value Reference Range Interpretation Comments WHITE BLOOD CELL COUNT (BEAKER) 6.8 K/ L 3.5-10.5 (test code = 775) RED BLOOD CELL COUNT (BEAKER) 4.12 M/ L 4.63-6.08 L (test code = 761) HEMOGLOBIN (BEAKER) (test code = 11.5 GM/DL 13.7-17.5 L 410) HEMATOCRIT (BEAKER) (test code = 39.1 % 40.1-51.0 L 411) MEAN CORPUSCULAR VOLUME (BEAKER) 94.9 fL 79.0-92.2 H (test code = 753) MEAN CORPUSCULAR HEMOGLOBIN 27.9 pg 25.7-32.2 (BEAKER) (test code = 751) MEAN CORPUSCULAR HEMOGLOBIN CONC 29.4 GM/DL 32.3-36.5 L (BEAKER) (test code = 752) RED CELL DISTRIBUTION WIDTH 16.6 % 11.6-14.4 H (BEAKER) (test code = 412) PLATELET COUNT (BEAKER) (test 251 K/CU MM 150-450 code = 756) MEAN PLATELET VOLUME (BEAKER) 10.1 fL 9.4-12.4 (test code = 754) NUCLEATED RED BLOOD CELLS 0 /100 WBC 0-0 (BEAKER) (test code = 413) Blood Culture - Routine (Left Venipuncture)2020-04-28 00:00:00 Test Item Value Reference Range Interpretation Comments Result (test code = No growth in 5 days 6463-4) [facility] [id number] 00:00:00 Test Item Value Reference Range Interpretation Comments CULTURE (BEAKER) (test No growth in 5 days code = 1095) BLOOD [id number] 00:00:00 Test Item Value Reference Range Interpretation Comments CULTURE (BEAKER) (test No growth in 5 days code = 1095) POCT-GLUCOSE [id number] 21:44:00 Test Item Value Reference Range Interpretation Comments POC-GLUCOSE METER 182 mg/dL 70-110 H : TESTED A T [facility] 6720 (BEAKER) (test code [facility], = 1538) 75000: Department Of Mathematics Chair/Techni patrick ID = [id number] for GARC IA, DAGOBERTO POCT-GLUCOSE [id number] 17:07:00 Test Item Value Reference Range Interpretation Comments POC-GLUCOSE METER 159 mg/dL 70-110 H : TESTED A T [facility] 6720 (BEAKER) (test code = [facility], 153) 80338: Department Of Mathematics Chair/Techni patrick ID = [id number] for ELLIOTT NNY, AILYN POCT-GLUCOSE [id number] 11:28:00 Test Item Value Reference Range Interpretation Comments POC-GLUCOSE METER 191 mg/dL 70-110 H : TESTED A T [facility] 6720 (BEAKER) (test code = [facility], 1538) 70605: Department Of Mathematics Chair/Techni patrick ID = [id number] for ELLIOTT NNY, AILYN BASIC METABOLIC [id number] 10:05:00 Test Item Value Reference Range Interpretation Comments SODIUM (BEAKER) 138 meq/L 136-145 (test code = 381) POTASSIUM (BEAKER) 4.1 meq/L 3.5-5.1 (test code = 379) CHLORIDE (BEAKER) 105 meq/L 98-107 (test code = 382) CO2 (BEAKER) (test 23 meq/L 22-29 code = 355) BLOOD UREA NITROGEN 10 mg/dL 7-21 (BEAKER) (test code = 354) CREATININE (BEAKER) 0.84 mg/dL 0.57-1.25 (test code = 358) GLUCOSE RANDOM 164 mg/dL 70-105 H (BEAKER) (test code = 652) CALCIUM (BEAKER) 9.3 mg/dL 8.4-10.2 (test code = 697) EGFR (BEAKER) (test 113 mL/min/1.73 ESTIM ATED GFR IS code = 1092) sq m NOT ACCURATE CREATININE CLEARANCE IN PREDICTING GLOMERULAR FILTRATION RATE . ESTIMATED GFR I S NOT APPLICABLE FOR DIALYSIS PATIEN TS. Department Of Mathematics Chair ID Carmencita MENDOZA FPOCT-GLUCOSE [id number] 08:09:00 Test Item Value Reference Range Interpretation Comments POC-GLUCOSE METER 158 mg/dL 70-110 H : TESTED A T [facility] 6720 (BEAKER) (test code = Endosee [facility], 1538) 11048: Department Of Mathematics Chair/Techni patrick ID = [id number] for AILYN ACEVEDO [id number] 07:24:00 Test Item Value Reference Range Interpretation Comments PHOSPHORUS (BEAKER) (test code = 3.5 mg/dL 2.3-4.7 604) Department Of Mathematics Chair ID Carmencita MENDOZA [id number] 07:24:00 Test Item Value Reference Range Interpretation Comments MAGNESIUM (BEAKER) (test code = 1.9 mg/dL 1.6-2.6 627) Department Of Mathematics Chair ID Carmencita MENDOZA FPOCT-GLUCOSE [id number] 21:21:00 Test Item Value Reference Range Interpretation Comments POC-GLUCOSE METER 193 mg/dL 70-110 H : TESTED A T [facility] 6720 (BEAKER) (test code = [facility] [place], 1538) 66300: Department Of Mathematics Chair/Techni patrick ID = [id number] for RODRIGO CRYSTAL PICKARDA POCT-GLUCOSE [id number] 18:12:00 Test Item Value Reference Range Interpretation Comments POC-GLUCOSE METER 121 mg/dL 70-110 H : TESTED A T [facility] 6720 (BEAKER) (test code = [facility], 1538) 51762: Department Of Mathematics Chair/Techni patrick ID = [id number] for LATHA KIRKPATRICK POCT-GLUCOSE [id number] 13:00:00 Test Item Value Reference Range Interpretation Comments POC-GLUCOSE METER 163 mg/dL 70-110 H : TESTED A T [facility] 6720 (BEAKER) (test code = [facility], 1538) 35848: Department Of Mathematics Chair/Techni patrick ID = [id number] for LATHA KIRKPATRICK POCT-GLUCOSE [id number] 08:48:00 Test Item Value Reference Range Interpretation Comments POC-GLUCOSE METER 142 mg/dL 70-110 H : TESTED A T [facility] 6720 (BEAKER) (test code = [facility], 1538) 22502: Department Of Mathematics Chair/Techni patrick ID = [id number] for LATHA KIRKPATRICK Digoxin [id number] 07:10:00 Test Item Value Reference Range Interpretation Comments Digoxin Lvl (test code = 1.14 ng/mL 0.8-2 64975-9) MIGUEL A (test code = MIGUEL A) Department Of Mathematics Chair ID - EDASI Lab Interpretation (test Normal code = 67738-2) [facility] [id number] 07:10:00 Test Item Value Reference Range Interpretation Comments DIGOXIN LEVEL (BEAKER) (test code 1.14 ng/mL 0.80-2.00 = 669) Department Of Mathematics Chair ID - [id number] 06:55:00 Test Item Value Reference Range Interpretation Comments MAGNESIUM (BEAKER) 1.9 mg/dL 1.6-2.6 Specimen moderately (test code = 627) hemolyzed Department Of Mathematics Chair ID - [id number] 06:55:00 Test Item Value Reference Range Interpretation Comments PHOSPHORUS (BEAKER) 3.4 mg/dL 2.3-4.7 Specimen moderately (test code = 604) hemolyzed Department Of Mathematics Chair ID - EDASIPOCT-GLUCOSE [id number] 22:24:00 Test Item Value Reference Range Interpretation Comments POC-GLUCOSE METER 133 mg/dL 70-110 H : TESTED A T [facility] 6720 (BEAKER) (test code = [facility], 1538) 03070: Department Of Mathematics Chair/Techni patrick ID = [id number] for JOSE EDUARDO MAYEN POCT-GLUCOSE [id number] 16:41:00 Test Item Value Reference Range Interpretation Comments POC-GLUCOSE METER 151 mg/dL 70-110 H : TESTED A T [facility] 6720 (BEAKER) (test code = [facility], 1538) 53566: Department Of Mathematics Chair/Techni patrick ID = [id number] for LATI N, GISELL POCT-GLUCOSE [id number] 13:09:00 Test Item Value Reference Range Interpretation Comments POC-GLUCOSE METER 141 mg/dL 70-110 H : TESTED A T [facility] 6720 (BEAKER) (test code = [facility], 1538) 70826: Department Of Mathematics Chair/Techni patrick ID = [id number] for LATI N, GISELL Heparin Assay - Low Molecular [id number] 11:52:00 Test Item Value Reference Range Interpretation Comments Anti 10A-Lovenox (test 1.05 u/ml 0.6-2 code = 1605) MIGUEL A (test code = MIGUEL A) Anti-Factor 10-A Level (Heparin Assay for Low Molecular Weight Heparin)Monitoring Guidelines: Blood samples should be obtained 4 hours post subcutaneous injection (time of Peak level) Therapeutic Peak Levels: 0.6-1.0 units/mL twice daily enoxaparin 1.0-2.0 units/mL once daily enoxaparin Ref: CHEST 2012;141:x20x-t98uGkq ase draw 4 hours after enoxaparin dose for accurate level. Lab Interpretation (test Normal code = 33126-6) [facility] HospitalHEPARIN ASSAY - LOW MOLECULAR [id number] 11:52:00 Test Item Value Reference Range Interpretation Comments LOVENOX-ANTI 10A (BEAKER) (test 1.05 u/ml 0.60-2.00 code = 1605) Anti-Factor 10-A Level (Heparin Assay for Low Molecular Weight Heparin)Monitoring Guidelines: Blood samples should be obtained 4 hours post subcutaneous injection (time of Peak level) Therapeutic Peak Levels: 0.6-1.0 units/mL twice daily enoxaparin 1.0-2.0 units/mL once daily enoxaparinRef: CHEST 2012;141:c85f-m64hPgykzt draw 4 hours after enoxaparin dose for accurate level.POCT-GLUCOSE [id number] 09:01:00 Test Item Value Reference Range Interpretation Comments POC-GLUCOSE METER 150 mg/dL 70-110 H : TESTED A T [facility] 6720 (BEAKER) (test code = [place], 1538) 75057: Department Of Mathematics Chair/Techni patrick ID = [id number] for GISELL WASSERMAN [id number] 06:44:00 Test Item Value Reference Range Interpretation Comments PHOSPHORUS (BEAKER) (test code = 3.7 mg/dL 2.3-4.7 604) Department Of Mathematics Chair ID - [id number] 06:44:00 Test Item Value Reference Range Interpretation Comments MAGNESIUM (BEAKER) (test code = 2.0 mg/dL 1.6-2.6 627) Department Of Mathematics Chair ID - EDASIBASIC METABOLIC [id number] 06:44:00 Test Item Value Reference Range Interpretation Comments SODIUM (BEAKER) 139 meq/L 136-145 (test code = 381) POTASSIUM (BEAKER) 3.9 meq/L 3.5-5.1 (test code = 379) CHLORIDE (BEAKER) 104 meq/L 98-107 (test code = 382) CO2 (BEAKER) (test 28 meq/L 22-29 code = 355) BLOOD UREA NITROGEN 12 mg/dL 7-21 (BEAKER) (test code = 354) CREATININE (BEAKER) 0.89 mg/dL 0.57-1.25 (test code = 358) GLUCOSE RANDOM 126 mg/dL 70-105 H (BEAKER) (test code = 652) CALCIUM (BEAKER) 8.6 mg/dL 8.4-10.2 (test code = 697) EGFR (BEAKER) (test 106 mL/min/1.73 ESTIM ATED GFR IS code = 1092) sq m NOT ACCURATE CREATININE CLEARANCE IN PREDICTING GLOMERULAR FILTRATION RATE . ESTIMATED GFR I S NOT APPLICABLE FOR DIALYSIS PATIEN TS. Department Of Mathematics Chair ID - EDASICBC W/PLT COUNT & AUTO [id number] 06:05:00 Test Item Value Reference Range Interpretation Comments WHITE BLOOD CELL COUNT (BEAKER) 5.9 K/ L 3.5-10.5 (test code = 775) RED BLOOD CELL COUNT (BEAKER) 4.09 M/ L 4.63-6.08 L (test code = 761) HEMOGLOBIN (BEAKER) (test code = 11.8 GM/DL 13.7-17.5 L 410) HEMATOCRIT (BEAKER) (test code = 38.5 % 40.1-51.0 L 411) MEAN CORPUSCULAR VOLUME (BEAKER) 94.1 fL 79.0-92.2 H (test code = 753) MEAN CORPUSCULAR HEMOGLOBIN 28.9 pg 25.7-32.2 (BEAKER) (test code = 751) MEAN CORPUSCULAR HEMOGLOBIN CONC 30.6 GM/DL 32.3-36.5 L (BEAKER) (test code = 752) RED CELL DISTRIBUTION WIDTH 16.6 % 11.6-14.4 H (BEAKER) (test code = 412) PLATELET COUNT (BEAKER) (test 223 K/CU MM 150-450 code = 756) MEAN PLATELET VOLUME (BEAKER) 10.4 fL 9.4-12.4 (test code = 754) NUCLEATED RED BLOOD CELLS 0 /100 WBC 0-0 (BEAKER) (test code = 413) NEUTROPHILS RELATIVE PERCENT 62 % (BEAKER) (test code = 429) LYMPHOCYTES RELATIVE PERCENT 20 % (BEAKER) (test code = 430) MONOCYTES RELATIVE PERCENT 14 % (BEAKER) (test code = 431) EOSINOPHILS RELATIVE PERCENT 4 % (BEAKER) (test code = 432) BASOPHILS RELATIVE PERCENT 1 % (BEAKER) (test code = 437) NEUTROPHILS ABSOLUTE COUNT 3.62 K/ L 1.78-5.38 (BEAKER) (test code = 670) LYMPHOCYTES ABSOLUTE COUNT 1.18 K/ L 1.32-3.57 L (BEAKER) (test code = 414) MONOCYTES ABSOLUTE COUNT (BEAKER) 0.82 K/ L 0.30-0.82 (test code = 415) EOSINOPHILS ABSOLUTE COUNT 0.21 K/ L 0.04-0.54 (BEAKER) (test code = 416) BASOPHILS ABSOLUTE COUNT (BEAKER) 0.03 K/ L 0.01-0.08 (test code = 417) IMMATURE GRANULOCYTES-RELATIVE 0 % 0-1 PERCENT (BEAKER) (test code = 2801) POCT-GLUCOSE [id number] 05:34:00 Test Item Value Reference Range Interpretation Comments POC-GLUCOSE METER 130 mg/dL 70-110 H : TESTED A T [facility] 6720 (ZACHARY) (test code = NAMITA Brantley [facility], 1538) 30081: Department Of Mathematics Chair/Techni patrick ID = [id number] for NG KYA HOU POCT-GLUCOSE [id number] 23:36:00 Test Item Value Reference Range Interpretation Comments POC-GLUCOSE METER 142 mg/dL 70-110 H : TESTED A T [facility] 6720 (ZACHARY) (test code = [facility] Fercho [facility], 1538) 90393: Department Of Mathematics Chair/Techni patrick ID = [id number] for NG KYA HOU Hemoglobin [id number] 12:08:00 Test Item Value Reference Range Interpretation Comments Hemoglobin A1C (test code = 4548-4) 6.9 % 4.3-6.1 H Lab Interpretation (test code = Abnormal 90649-4) [facility]MO[facility] [id number] 12:08:00 Test Item Value Reference Range Interpretation Comments HEMOGLOBIN A1C (ZACHARY) (test code = 6.9 % 4.3-6.1 H 368) POCT-GLUCOSE [id number] 11:11:00 Test Item Value Reference Range Interpretation Comments POC-GLUCOSE METER 127 mg/dL 70-110 H : TESTED A T [facility] 6720 (ZACHARY) (test code = [facility] Fer[employer] [facility], 1538) 27203: Department Of Mathematics Chair/Techni patrick ID = [id number] for GR ANTRONIT TSH/Free T4 If [id number] 08:33:00 Test Item Value Reference Range Interpretation Comments TSH (test code = 0.685 0.350- 4.940 uIU/mL 64822-9) MIGUEL A (test code = MIGUEL A) Department Of Mathematics Chair ID - EDASI Lab Interpretation (test Normal code = 94108-3) [facility] Hospital[facility] T4 IF [id number] 08:33:00 Test Item Value Reference Range Interpretation Comments THYROID STIMULATING HORMONE 0.685 uIU/mL 0.350-4.940 (BEAKER) (test code = 772) Department Of Mathematics Chair ID - EDYANICKPOCT-GLUCOSE [id number] 06:04:00 Test Item Value Reference Range Interpretation Comments POC-GLUCOSE METER 114 mg/dL 70-110 H : TESTED A T [facility] 6720 (BEAKER) (test code = NAMITA GABRI[place], 1538) 69604: Department Of Mathematics Chair/Techni patrick ID = [id number] for MO RRIS, CONNER [id number] 04:13:00 Test Item Value Reference Range Interpretation Comments PHOSPHORUS (BEAKER) (test code = 3.8 mg/dL 2.3-4.7 604) Department Of Mathematics Chair ID - ARLYN [id number] 04:13:00 Test Item Value Reference Range Interpretation Comments MAGNESIUM (BEAKER) (test code = 1.9 mg/dL 1.6-2.6 627) Department Of Mathematics Chair ID - ARLYN LBASIC METABOLIC [id number] 04:13:00 Test Item Value Reference Range Interpretation Comments SODIUM (BEAKER) 135 meq/L 136-145 L (test code = 381) POTASSIUM (BEAKER) 3.6 meq/L 3.5-5.1 (test code = 379) CHLORIDE (BEAKER) 103 meq/L 98-107 (test code = 382) CO2 (BEAKER) (test 24 meq/L 22-29 code = 355) BLOOD UREA NITROGEN 9 mg/dL 7-21 (BEAKER) (test code = 354) CREATININE (BEAKER) 0.82 mg/dL 0.57-1.25 (test code = 358) GLUCOSE RANDOM 116 mg/dL 70-105 H (BEAKER) (test code = 652) CALCIUM (BEAKER) 8.7 mg/dL 8.4-10.2 (test code = 697) EGFR (BEAKER) (test 117 mL/min/1.73 ESTIM ATED GFR IS code = 1092) sq m NOT ACCURATE CREATININE CLEARANCE IN PREDICTING GLOMERULAR FILTRATION RATE . ESTIMATED GFR I S NOT APPLICABLE FOR DIALYSIS PATIEN TS. Department Of Mathematics Chair ID - ARLYN LCBC W/PLT COUNT & AUTO [id number] 03:28:00 Test Item Value Reference Range Interpretation Comments WHITE BLOOD CELL COUNT (BEAKER) 5.1 K/ L 3.5-10.5 (test code = 775) RED BLOOD CELL COUNT (BEAKER) 3.82 M/ L 4.63-6.08 L (test code = 761) HEMOGLOBIN (BEAKER) (test code = 11.0 GM/DL 13.7-17.5 L 410) HEMATOCRIT (BEAKER) (test code = 35.0 % 40.1-51.0 L 411) MEAN CORPUSCULAR VOLUME (BEAKER) 91.6 fL 79.0-92.2 (test code = 753) MEAN CORPUSCULAR HEMOGLOBIN 28.8 pg 25.7-32.2 (BEAKER) (test code = 751) MEAN CORPUSCULAR HEMOGLOBIN CONC 31.4 GM/DL 32.3-36.5 L (BEAKER) (test code = 752) RED CELL DISTRIBUTION WIDTH 16.6 % 11.6-14.4 H (BEAKER) (test code = 412) PLATELET COUNT (BEAKER) (test 218 K/CU MM 150-450 code = 756) MEAN PLATELET VOLUME (BEAKER) 9.4 fL 9.4-12.4 (test code = 754) NUCLEATED RED BLOOD CELLS 0 /100 WBC 0-0 (BEAKER) (test code = 413) NEUTROPHILS RELATIVE PERCENT 64 % (BEAKER) (test code = 429) LYMPHOCYTES RELATIVE PERCENT 18 % (BEAKER) (test code = 430) MONOCYTES RELATIVE PERCENT 13 % (BEAKER) (test code = 431) EOSINOPHILS RELATIVE PERCENT 5 % (BEAKER) (test code = 432) BASOPHILS RELATIVE PERCENT 1 % (BEAKER) (test code = 437) NEUTROPHILS ABSOLUTE COUNT 3.25 K/ L 1.78-5.38 (BEAKER) (test code = 670) LYMPHOCYTES ABSOLUTE COUNT 0.89 K/ L 1.32-3.57 L (BEAKER) (test code = 414) MONOCYTES ABSOLUTE COUNT (BEAKER) 0.67 K/ L 0.30-0.82 (test code = 415) EOSINOPHILS ABSOLUTE COUNT 0.23 K/ L 0.04-0.54 (BEAKER) (test code = 416) BASOPHILS ABSOLUTE COUNT (BEAKER) 0.03 K/ L 0.01-0.08 (test code = 417) IMMATURE GRANULOCYTES-RELATIVE 0 % 0-1 PERCENT (BEAKER) (test code = 2801) POCT-GLUCOSE [id number] 02:26:00 Test Item Value Reference Range Interpretation Comments POC-GLUCOSE METER 119 mg/dL 70-110 H : TESTED Marleen Crooks [facility] 6720 (ZACHARY) (test code = [place], 1538) [id number]: Department Of Mathematics Chair/Techni patrick ID = [id number] for [place] Venous doppler legs [id number] 00:12:14Ejection FractionSLEH ECHO HEARTLAB MKCKESSON CPACSRight Impression1. There is no deep venous obstruction in the common femoral, profundafemoral, femoral, popliteal, posterior tibial or peroneal veins wherevisualized.2. There is no superficial venous obstruction in the great saphenous veinwhere visualized.Left Impression1. There is no deep venous obstruction in the common femoral, profundafemoral, femoral, popliteal, posterior tibial or peroneal veins wherevisualized.2. There is no superficial venous obstruction in the great saphenous veinwhere visualized. Conclusions Summary Venous duplex imaging and compression of the bilateral lower extremities were performed. The veins were technically difficult to visualize due to edema and patient body habitus. The bilateral venous systems were patent and compressible with no evidence of thrombus where visualized. 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 Indications for Study:Swelling and R/O DVT.Patient Status:STAT.Study Location:Portable.Technical Quality:Technically Difficult.Risk FactorsHistory of Disease+- +----+ +!Diagn osis !Date!Comments !+ +----+ +!History/Risk Factors: ! !Morbid Obesity, DM, HTN !+ +----+ +Impre ssionsRight Impression1. There is no deep venous obstruction in the common femoral, profundafemoral, femoral, popliteal, posterior tibial or peroneal veins wherevisualized.2. There is no superficial venous obstruction in the great saphenous veinwhere visualized.Left Impression1. There is no deep venous obstruction in the common femoral, profundafemoral, femoral, popliteal, posterior tibial or peroneal veins wherevisualized.2. There is no superficial venous obstruction in the great saphenous veinwhere visualized. Conclusions Summary Venous duplex imaging and compression of the bilateral lower extremities were performed. The veins were technically difficult to visualize due to edema and patient body habitus. The bilateral venous systems were patent and compressible with no evidence of thrombus where visualized. Signature Velocities are measured in cm/s ; Diameters are measured in [facility] HospitalB- type Natriuretic Factor (BNP)2020-04-23 20:57:00 Test Item Value Reference Range Interpretation Comments BNP (test code = 81951-8) 85 pg/mL 0-100 MIGUEL A (test code = MIGUEL A) Department Of Mathematics Chair ID - BS Lab Interpretation (test Normal code = 14927-4) [facility]TR[facility] [id number] 20:57:00 Test Item Value Reference Range Interpretation Comments TROPONIN I (BEAKER) (test code = 397) < ng/mL 0.00-0.03 Troponin I (TnI) levels [...] failure, acidosis, acute neurological disease, and persistent tachyarrhythmia.Department Of Mathematics Chair ID - BSB-TYPE NATRIURETIC FACTOR (BNP)2020-04-23 20:57:00 Test Item Value Reference Range Interpretation Comments B-TYPE NATRIURETIC PEPTIDE (BEAKER) 85 pg/mL 0-100 (test code = 700) Department Of Mathematics Chair ID - BSHepatic function [id number] 20:50:00 Test Item Value Reference Range Interpretation Comments Protein, Total (test 7.8 6.0- 8.3 gm/dL Speci men code = 2885-2) moderately hemolyzed Albumin (test code = 3.5 g/dL 3.5-5 Specime n 70572-4) moderately hemolyzed Total Bilirubin (test 0.5 mg/dL 0.2-1.2 Specim en code = 1975-2) moderately hemolyzed Bilirubin, Direct 0.2 mg/dL 0.1-0.5 Specimen (test code = 1968-7) moderat jose hemolyzed Alkaline Phosphatase 74 U/L 40-150 (test code = 6768-6) AST (test code = 29 U/L 5-34 Specimen 1920-8) moderately hemolyzed ALT (test code = 14 U/L 6-55 Specimen 1742-6) moderately hemolyzed MIGUEL A (test code = MIGUEL A) Department Of Mathematics Chair ID - BS Lab Interpretation Normal (test code = 28794-2) [facility] HospitalHEPATIC FUNCTION [id number] 20:50:00 Test Item Value Reference Range Interpretation Comments TOTAL PROTEIN (BEAKER) 7.8 gm/dL 6.0-8.3 Speci men moderately (test code = 770) hemolyzed ALBUMIN (BEAKER) (test 3.5 g/dL 3.5-5.0 Speci men moderately code = 1145) hemolyzed BILIRUBIN TOTAL 0.5 mg/dL 0.2-1.2 Specimen mod erately (BEAKER) (test code = hemoly zed 377) BILIRUBIN DIRECT 0.2 mg/dL 0.1-0.5 Specimen mo derately (BEAKER) (test code = hemoly zed 706) ALKALINE PHOSPHATASE 74 U/L 40-150 (BEAKER) (test code = 346) AST (SGOT) (BEAKER) 29 U/L 5-34 Specimen moderately (test code = 353) hemolyzed ALT (SGPT) (BEAKER) 14 U/L 6-55 Specimen moderately (test code = 347) hemolyzed Department Of Mathematics Chair ID - BSPOCT-GLUCOSE [id number] 17:04:00 Test Item Value Reference Range Interpretation Comments POC-GLUCOSE METER 99 mg/dL 70-110 : TESTED A T [facility] 6720 (BEAKER) (test code = NAMITA [place]AB[place]EL [place], 1538) [address]: Department Of Mathematics Chair/Techni patrick ID = [id number] for Ivett Barrera (contract) PT/[id number] 11:19:00 Test Item Value Reference Range Interpretation Comments PROTIME (BEAKER) (test code = 16.2 seconds 11.9-14.2 H 759) INR (BEAKER) (test code = 370) 1.3 <=5.9 PARTIAL THROMBOPLASTIN TIME 41.5 seconds 22.5-36.0 H (BEAKER) (test code = 760) Effective 02/28/2019: PT Reference Range ChangeNew: 11.9-14.2 Previous: 11.7- 14.7RECOMMENDED COUMADIN/WARFARIN INR THERAPY RANGESSTANDARD DOSE: 2.0-3.0 Includes: PROPHYLAXIS for venous thrombosis, systemic embolization; TREATMENT for venous thrombosis and/or pulmonary embolus.HIGH RISK: Target INR is2.5-3.5 for patients wiht mechanical heart valves.[id number] 10:20:00 Test Item Value Reference Range Interpretation Comments Procalcitonin (test code = <0.05 <0.05 ng/mL 56011-4) MIGUEL A (test code = MIGUEL A) SEPSIS RISK (ng/mL)Low: 0.05-0.50Intermedi ate: 0.51-2.00High: >=2.01 Lab Interpretation (test Normal code = 99085-4) [facility] HospitalPROCALCITONIN2020-07-22 10:20:00 Test Item Value Reference Range Interpretation Comments PROCALCITONIN (BEAKER) (test code = < ng/mL <0.05 3036) SEPSIS RISK (ng/mL)Low: 0.05-0.50Intermediate: 0.51-2.00High: >=2.01POCT-GLUCOSE [id number] 09:26:00 Test Item Value Reference Range Interpretation Comments POC-GLUCOSE METER 131 mg/dL 70-110 H : TESTED A T [facility] 6720 (BEAKER) (test code = N[place], 1538) [address]: Department Of Mathematics Chair/Techni patrick ID = [id number] for Anjali Zavala 2D Echo W/Doppler(CW/PW/Color)2020-04-23 08:15:31Ejection FractionSLEH ECHO HEARTLAB MKCKESSON CPACSInterface, External Ris In 04/23/2020 8:15 AM C DTTransthoracic Echocardiography Report (TTE) Demographics Patient Name LISSETH GONZALEZ Date of Study 04/23/2020 Gender Male Visit Number [id number] Race Black Room Number [id number] Number Date of 1960 Referring Physician Constance Horowitz Age 59 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 1. The left ventricle is chamber size (by PSLAX dimension) is small (male - LVIDd < 4.2cm) with moderate concentric LV hypertrophy. Estimated LVEF by qualitative assessment is normal (55-60%) . Degree of diastolic dysfunction (LAP assessment) is inconclusive due to tachycardia . 2. Normal RV size and systolic function. 3. No significant valvular abnormality. 4. Unable [...] signal. Pulmonic Valve PV is not well visualized;function appears normal by Doppler visualized. Aorta Aorticroot size (SInus of Valsalva diameter) is normal . Pericardium Small pericardial effusion present anterior [...] LVOT CO: 6 l/min LVOT CI: 2.33 l/min/m^2[facility] CenterAPTT2020-07-22 05:48:00 Test Item Value Reference Range Interpretation Comments PARTIAL THROMBOPLASTIN TIME 33.4 seconds 22.5-36.0 (BEAKER) (test code = 760) 6 hours after starting heparin infusion and as indicated per sliding scale [id number] 05:35:00 Test Item Value Reference Range Interpretation Comments PHOSPHORUS (BEAKER) (test code = 3.6 mg/dL 2.3-4.7 604) Department Of Mathematics Chair ID - [id number] 05:35:00 Test Item Value Reference Range Interpretation Comments MAGNESIUM (BEAKER) (test code = 1.9 mg/dL 1.6-2.6 627) Department Of Mathematics Chair ID - EDASIBASIC METABOLIC [id number] 05:35:00 Test Item Value Reference Range Interpretation Comments SODIUM (BEAKER) 137 meq/L 136-145 (test code = 381) POTASSIUM (BEAKER) 3.7 meq/L 3.5-5.1 (test code = 379) CHLORIDE (BEAKER) 102 meq/L 98-107 (test code = 382) CO2 (BEAKER) (test 27 meq/L 22-29 code = 355) BLOOD UREA NITROGEN 13 mg/dL 7-21 (BEAKER) (test code = 354) CREATININE (BEAKER) 0.88 mg/dL 0.57-1.25 (test code = 358) GLUCOSE RANDOM 160 mg/dL 70-105 H (BEAKER) (test code = 652) CALCIUM (BEAKER) 8.5 mg/dL 8.4-10.2 (test code = 697) EGFR (BEAKER) (test 107 mL/min/1.73 ESTIM ATED GFR IS code = 1092) sq m NOT ACCURATE CREATININE CLEARANCE IN PREDICTING GLOMERULAR FILTRATION RATE . ESTIMATED GFR I S NOT APPLICABLE FOR DIALYSIS PATIEN TS. Department Of Mathematics Chair ID - EDASICBC W/PLT COUNT & AUTO [id number] 05:17:00 Test Item Value Reference Range Interpretation Comments WHITE BLOOD CELL COUNT (BEAKER) 5.3 K/ L 3.5-10.5 (test code = 775) RED BLOOD CELL COUNT (BEAKER) 3.98 M/ L 4.63-6.08 L (test code = 761) HEMOGLOBIN (BEAKER) (test code = 11.5 GM/DL 13.7-17.5 L 410) HEMATOCRIT (BEAKER) (test code = 36.8 % 40.1-51.0 L 411) MEAN CORPUSCULAR VOLUME (BEAKER) 92.5 fL 79.0-92.2 H (test code = 753) MEAN CORPUSCULAR HEMOGLOBIN 28.9 pg 25.7-32.2 (BEAKER) (test code = 751) MEAN CORPUSCULAR HEMOGLOBIN CONC 31.3 GM/DL 32.3-36.5 L (BEAKER) (test code = 752) RED CELL DISTRIBUTION WIDTH 16.9 % 11.6-14.4 H (BEAKER) (test code = 412) PLATELET COUNT (BEAKER) (test 258 K/CU MM 150-450 code = 756) MEAN PLATELET VOLUME (BEAKER) 10.0 fL 9.4-12.4 (test code = 754) NUCLEATED RED BLOOD CELLS 0 /100 WBC 0-0 (BEAKER) (test code = 413) NEUTROPHILS RELATIVE PERCENT 59 % (BEAKER) (test code = 429) LYMPHOCYTES RELATIVE PERCENT 23 % (BEAKER) (test code = 430) MONOCYTES RELATIVE PERCENT 14 % (BEAKER) (test code = 431) EOSINOPHILS RELATIVE PERCENT 3 % (BEAKER) (test code = 432) BASOPHILS RELATIVE PERCENT 1 % (BEAKER) (test code = 437) NEUTROPHILS ABSOLUTE COUNT 3.16 K/ L 1.78-5.38 (BEAKER) (test code = 670) LYMPHOCYTES ABSOLUTE COUNT 1.21 K/ L 1.32-3.57 L (BEAKER) (test code = 414) MONOCYTES ABSOLUTE COUNT (BEAKER) 0.75 K/ L 0.30-0.82 (test code = 415) EOSINOPHILS ABSOLUTE COUNT 0.16 K/ L 0.04-0.54 (BEAKER) (test code = 416) BASOPHILS ABSOLUTE COUNT (BEAKER) 0.04 K/ L 0.01-0.08 (test code = 417) IMMATURE GRANULOCYTES-RELATIVE 0 % 0-1 PERCENT (BEAKER) (test code = 2801) Blood gas, [id number] 02:57:00 Test Item Value Reference Range Interpretation Comments pH, Arterial (test code = 2744-1) 7.44 7.35-7.45 pCO2, Arterial (test code = 36 35- 45 mmHg 2018-8) pO2, Arterial (test code = 108 80- 90 mmHg H 2703-7) O2 Sat, Arterial (test code = 98.1 % 96-97 H 2708-6) HCO3, Arterial (test code = 24 mmol/L 21-29 1960-4) Base Excess, Arterial (test code -0.1 mmol/L -2-3 = 1925-7) Patient Temperature (test code = 36.8 C 8310-5) FIO2 (test code = 1819) 28 % Lab Interpretation (test code = Abnormal 25138-4) [facility] HospitalBL[facility]OD GAS, [id number] 02:57:00 Test Item Value Reference Range Interpretation Comments PH ARTERIAL (BEAKER) (test code = 7.44 7.35-7.45 383) PCO2 ARTERIAL (BEAKER) (test code 36 mmHg 35-45 = 384) PO2 ARTERIAL (BEAKER) (test code 108 mmHg 80-90 H = 385) O2 SATURATION ARTERIAL (BEAKER) 98.1 % 96.0-97.0 H (test code = 386) HCO3 ARTERIAL (BEAKER) (test code 24 mmol/L -29 = 388) BASE EXCESS ARTERIAL (BEAKER) -0.1 mmol/L -2.0-3.0 (test code = 387) PATIENT TEMPERATURE (BEAKER) 36.8 C (test code = 1818) FIO2 (BEAKER) (test code = 1819) 28.0 % TROPONIN [id number] 23:01:00 Test Item Value Reference Range Interpretation Comments TROPONIN I (BEAKER) (test code = 397) < ng/mL 0.00-0.03 Troponin I (TnI) levels [...] failure, acidosis, acute neurological disease, and persistent tachyarrhythmia.Department Of Mathematics Chair ID - BSLACTIC ACID, VENOUS 2020-04-22 22:49:00 Test Item Value Reference Range Interpretation Comments LACTATE BLOOD VENOUS (2) (BEAKER) 1.17 mmol/L 0.50-2.20 (test code = 2872) Department Of Mathematics Chair ID - [id number] 22:49:00 Test Item Value Reference Range Interpretation Comments PARTIAL THROMBOPLASTIN TIME 28.6 seconds 22.5-36.0 (BEAKER) (test code = 760) Prior to initiating heparinCBC (HEMOGRAM ONLY)2020-04-22 22:41:00 Test Item Value Reference Range Interpretation Comments WHITE BLOOD CELL COUNT (BEAKER) 5.0 K/ L 3.5-10.5 (test code = 775) RED BLOOD CELL COUNT (BEAKER) 3.96 M/ L 4.63-6.08 L (test code = 761) HEMOGLOBIN (BEAKER) (test code = 11.4 GM/DL 13.7-17.5 L 410) HEMATOCRIT (BEAKER) (test code = 37.1 % 40.1-51.0 L 411) MEAN CORPUSCULAR VOLUME (BEAKER) 93.7 fL 79.0-92.2 H (test code = 753) MEAN CORPUSCULAR HEMOGLOBIN 28.8 pg 25.7-32.2 (BEAKER) (test code = 751) MEAN CORPUSCULAR HEMOGLOBIN CONC 30.7 GM/DL 32.3-36.5 L (BEAKER) (test code = 752) RED CELL DISTRIBUTION WIDTH 16.9 % 11.6-14.4 H (BEAKER) (test code = 412) PLATELET COUNT (BEAKER) (test 226 K/CU MM 150-450 code = 756) MEAN PLATELET VOLUME (BEAKER) 9.7 fL 9.4-12.4 (test code = 754) NUCLEATED RED BLOOD CELLS 1 /100 WBC 0-0 H (BEAKER) (test code = 413) SARS-COV2/RT-PCR ([facility])2020-04-22 22:33:00 Test Item Value Reference Range Interpretation Comments SARS-COV2/RT-PCR (test code Negative Not Detected, Negative, = 9128096) See external report for linked test SARS-COV-2 PERFORMING LAB BSC (test code = 9789909) Negative results do not preclude SARS-CoV-2 infection and should not be used as the sole basis for patient management decisions. Negative results must be combined with clinical observations, patient history, and epidemiological information. A false negative result may occur if a specimen is improperly collected, transported or handled.The limit of detection for this assay is 250 copies/mL.This SARS CoV-2 test is a rapid, real-time RT-PCR test intended for the qualitative detection of nucleic acid from SARS-CoV-2 in a nasopharyngeal swab specimen collected from individuals suspected of COVID-19 by their healthcare provider.This test has not been Food and Drug Administration (FDA) cleared or approved and has been authorized by FDA under an Emergency Use Authorization (EUA). This EUA will be effective until the declaration that circumstances exist justifying the authorization of the emergency use of in vitro diagnostic tests for detection and/or diagnosis of COVID-19 is terminated under Section 564(b)(2) of the Act or the EUA is revoked under Section 564(g) of the Act.Fact Sheet for Healthcare Pro viders:https://www.Sensopia/Documents/Xpert%20Xpress%20SARS%20CoV-2/Fact%20Sh eets/302-3802%80DQQD-QYI-0%20HEALTHCARE%20PROVIDERS%20FACT%20SHEET.pdfFact Sheet for Healthcare Patients:https://www.Excelsoft/Documents/Xpert%20Xpress%20SARS%20CoV-2/Fact%20Sheets/302-3801%20SARS-COV -2%20PATIENT%20FACT%20SHEET.pdfPerforming Laboratory:[facility] [place] [address].[place], [place] [address]UI, CHEST WITH IV CONTRAST- PE TEST [id number] 21:52:00Reason for exam:->SHORTNESS OF BREATHWhat is the patient's sedation requirement?->No SedationFINAL REPORT TECHNIQUE: CT of the chest WITH intravenous contrast (pulmonary e mbolism protocol). Dose modulation, iterative reconstruction, and/or weight- based adjustment of the mA/kV was utilized to reduce the radiation dose to as low as reasonably achievable. INDICATION: Shortness of breath. COMPARISON: 03/13/2020. FINDINGS: LINES/TUBES: None. PULMONARY ARTERIES: Proximal tothe bifurcation of the main pulmonary artery, the main pulmonary artery is 3.1 cm in diameter. There are numerous filling defects in the bilateral lobar branches extending into the segmental branches.. LUNGS AND AIRWAYS: Central airways are patent. Nodular pleural thickening and loculated pleural effusion are not significant changed. There is unchanged consolidation and volume loss in the right middle and right lower lobes. Peripheral focus of consolidation within the left lower lobe. (Axial image 47). PLEURA: There is a moderate loculated right basilar pleural effusion with, pleural catheter in place. Effusion is unchanged in size.. HEART AND MEDIASTINUM: The visualized thyroid gland is normal. No significant mediastinal, hilar, or axillary lymphadenopathy. The heart and pericardium are within normal limits. SOFT TISSUES AND BONES: Degenerative changes are noted in the spine. No suspicious osseous lesion.. UPPER ABDOMEN: Stable 4.2 cm left adrenal mass. Partially visualized stent in the proximal descending colon. There is persistent thickening along the surface of the liver suggestive of peritoneal metastatic disease. IMPRESSION:Bilateral acute pulmonary emboli within the lobar and segmental branches in all the lobes. No evidence of right heart strain. 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 Nodular thickening along the surface of the liver suggestive of peritoneal metastatic disease. Unchanged left adrenal mass. New subpleural focus of consolidation in the left lower lobe possibly representing pulmonary infarct or new metastatic focus. Attention on follow-up imaging is recommended.. D/W Dr. Goldberg at 9:51 PM . Signed: Olga Alamo MDRepst. louis behavioral medicine institute Verified Date/Time: 04/22/2020 21:52:23 Reading Location: [address] Transitional Reading Room CT chest PE test [id number] 21:52:00Interface, External Ris In - 04/22/2020 9:54 PM CDTFINAL REPORT TECHNIQUE: CT of the chest WITH intravenous contrast (pulmonary embolism protocol). Dose modulation, iterative reconstruction, and/or weight-based adjustment of the mA/kV was utilized to reduce the radiation dose to as low as reasonably achievable. INDICATION: Shortness of breath. COMPARISON: 03/13/2020. FINDINGS: LINES/TUBES: None. PULMONARY ARTERIES: Proximal to the bifurcation of the main pulmonary artery, the main pulmonary artery is 3.1 cm in diameter. There are numerous filling defects in the bilateral lobar branches extending into the segmental branches.. LUNGS AND AIRWAYS: Central airways are patent. N odular pleural thickening and loculated pleural effusion are not significant changed. There is unchanged consolidation and volume loss in the right middle and right lower lobes. Peripheral focus of consolidation within the left lower lobe. (Axial image 47). PLEURA: There is a moderate loculated right basilar pleural effusion with, pleural catheter in place. Effusion is unchanged in size.. HEART AND MEDIASTINUM: The visualized thyroid gland is normal. No significant mediastinal, hilar, or axillary lymphadenopathy. The heart and pericardium are within normal limits. SOFT TISSUES AND BONES: Degenerative changes are noted in the spine. No suspicious osseous lesion.. UPPER ABDOMEN: Stable 4.2 cm left adrenal mass. Partially visualized stent in the proximal descending colon. There is persistent thickening along the surface of the liver suggestive of peritoneal metastatic disease. IMPRESSION:Bilateralacute pulmonary emboli within the lobar and segmental branches in all the lobes. No evidence of right heart strain. 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 Nodular thickening along the surface of the liver suggestive of peritoneal metastatic disease. Unchanged left adrenal mass. New subpleuralfocus of consolidation in the left lower lobe possibly representing pulmonary infarct or new metastatic focus. Attention on follow-up imaging is recommended.. D/W Dr. Goldberg at 9:51 PM . Signed: Olga Alamo MDReport Verified Date/Time: 04/22/2020 21:52:23 Reading Location: [address] Transitional Reading Room [facility] [id number] 20:42:13Bijal Goldberg MD 04/22/2020 10:47 PMCritical CarePerformed by: Bijal Goldberg MDAuthorized by: Bijal Glodberg MD Total critical care time: 30 minutesCritical care time was exclusive of separately billable procedures and treating other patients.Critical care was necessary to treat or prevent imminent or life-threatening deterioration of the following conditions:respiratory failure and cardiac failure.Critical care was time spent personally by me on the following activities: blood draw for specimens, discussions with consultants, evaluation of patient's response to treatment, obtaining history from patient or surrogate, ordering and review of laboratory studies, pulse oximetry, review of old charts, development of treatment plan with patient or surrogate, discussions with primary provider, interpretation of cardiac output measurements, examination of patient, ordering and performing treatments and interventions, ordering and review of radiographic studies and re-evaluation of patient's condition.[facility] HospitalD-dimer, [id number] 20:32:00 Test Item Value Reference Range Interpretation Comments D-Dimer, Quant (test code 19.48 <0.50 MG/L FEU H = 86720-5) MIGUEL A (test code = MIGUEL A) Intended Use: The D-Dimer Assay can be used to aid in the diagnosis of Deep Vein Thrombosis (DVT) and Pulmonary Embolism Disease (PED).In patients with low pre-test probability, various studies concerning STA Liatest D-dimer test have reported that with a cutoff value of 0.50 MG/L FEU, the Negative Predictive Value (NPV) regarding the exclusion of thrombosis is within 95-100% range. Lab Interpretation (test Abnormal code = 38920-3) [facility] HospitalB-TYPE NATRIURETIC FACTOR (BNP)2020-04-22 20:32:00 Test Item Value Reference Range Interpretation Comments B-TYPE NATRIURETIC PEPTIDE (BEAKER) 136 pg/mL 0-100 H (test code = 700) Department Of Mathematics Chair ID - [id number] 20:32:00 Test Item Value Reference Range Interpretation Comments D-DIMER QUANTITATIVE (BEAKER) 19.48 MG/L FEU <0.50 H (test code = 671) Intended Use: The D-Dimer Assay can be used to aid in the diagnosis of Deep Vein Thrombosis (DVT) and Pulmonary Embolism Disease (PED).In patients with low pre- test probability, various studies concerning STA Liatest D-dimer test have reported that with a cutoff value of 0.50 MG/L FEU, the Negative Predictive Value (NPV) regarding the exclusion of thrombosis is within 95-100% range. TROPONIN [id number] 20:31:00 Test Item Value Reference Range Interpretation Comments TROPONIN I (BEAKER) (test code = 397) < ng/mL 0.00-0.03 Troponin I (TnI) levels [...] failure, acidosis, acute neurological disease, and persistent tachyarrhythmia.Department Of Mathematics Chair ID - CDPBASIC METABOLIC PANEL 2020-04-22 20:24:00 Test Item Value Reference Range Interpretation Comments SODIUM (BEAKER) 137 meq/L 136-145 (test code = 381) POTASSIUM (BEAKER) 3.7 meq/L 3.5-5.1 (test code = 379) CHLORIDE (BEAKER) 100 meq/L 98-107 (test code = 382) CO2 (BEAKER) (test 26 meq/L 22-29 code = 355) BLOOD UREA NITROGEN 15 mg/dL 7-21 (BEAKER) (test code = 354) CREATININE (BEAKER) 0.93 mg/dL 0.57-1.25 (test code = 358) GLUCOSE RANDOM 127 mg/dL 70-105 H (BEAKER) (test code = 652) CALCIUM (BEAKER) 9.1 mg/dL 8.4-10.2 (test code = 697) EGFR (BEAKER) (test 101 mL/min/1.73 ESTIM ATED GFR IS code = 1092) sq m NOT ACCURATE CREATININE CLEARANCE IN PREDICTING GLOMERULAR FILTRATION RATE . ESTIMATED GFR I S NOT APPLICABLE FOR DIALYSIS PATIEN TS. Department Of Mathematics Chair ID - CDPLACTIC ACID, [id number] 20:21:00 Test Item Value Reference Range Interpretation Comments LACTATE BLOOD VENOUS 1.18 mmol/L 0.50-2.20 Specime n slightly (2) (BEAKER) (test hemolyzed code = 0086) Department Of Mathematics Chair ID - [id number]/[id number] 20:16:00 Test Item Value Reference Range Interpretation Comments PROTIME (BEAKER) (test code = 16.3 seconds 11.9-14.2 H 759) INR (BEAKER) (test code = 370) 1.4 <=5.9 PARTIAL THROMBOPLASTIN TIME 28.0 seconds 22.5-36.0 (BEAKER) (test code = 760) Effective 02/28/2019: PT Reference Range ChangeNew: 11.9-14.2 Previous: 11.7- 14.7RECOMMENDED COUMADIN/WARFARIN INR THERAPY RANGESSTANDARD DOSE: 2.0-3.0 Includes: PROPHYLAXIS for venous thrombosis, systemic embolization; TREATMENT for venous thrombosis and/or pulmonary embolus.HIGH RISK: Target INR is2.5-3.5 for patients wiht mechanical heart valves.CBC W/PLT COUNT & AUTO [id number] 20:16:00 Test Item Value Reference Range Interpretation Comments WHITE BLOOD CELL COUNT (BEAKER) 6.0 K/ L 3.5-10.5 (test code = 775) RED BLOOD CELL COUNT (BEAKER) 4.28 M/ L 4.63-6.08 L (test code = 761) HEMOGLOBIN (BEAKER) (test code = 12.4 GM/DL 13.7-17.5 L 410) HEMATOCRIT (BEAKER) (test code = 39.3 % 40.1-51.0 L 411) MEAN CORPUSCULAR VOLUME (BEAKER) 91.8 fL 79.0-92.2 (test code = 753) MEAN CORPUSCULAR HEMOGLOBIN 29.0 pg 25.7-32.2 (BEAKER) (test code = 751) MEAN CORPUSCULAR HEMOGLOBIN CONC 31.6 GM/DL 32.3-36.5 L (BEAKER) (test code = 752) RED CELL DISTRIBUTION WIDTH 16.9 % 11.6-14.4 H (BEAKER) (test code = 412) PLATELET COUNT (BEAKER) (test 264 K/CU MM 150-450 code = 756) MEAN PLATELET VOLUME (BEAKER) 10.1 fL 9.4-12.4 (test code = 754) NUCLEATED RED BLOOD CELLS 1 /100 WBC 0-0 H (BEAKER) (test code = 413) NEUTROPHILS RELATIVE PERCENT 69 % (BEAKER) (test code = 429) LYMPHOCYTES RELATIVE PERCENT 16 % (BEAKER) (test code = 430) MONOCYTES RELATIVE PERCENT 13 % (BEAKER) (test code = 431) EOSINOPHILS RELATIVE PERCENT 1 % (BEAKER) (test code = 432) BASOPHILS RELATIVE PERCENT 1 % (BEAKER) (test code = 437) NEUTROPHILS ABSOLUTE COUNT 4.09 K/ L 1.78-5.38 (BEAKER) (test code = 670) LYMPHOCYTES ABSOLUTE COUNT 0.96 K/ L 1.32-3.57 L (BEAKER) (test code = 414) MONOCYTES ABSOLUTE COUNT (BEAKER) 0.77 K/ L 0.30-0.82 (test code = 415) EOSINOPHILS ABSOLUTE COUNT 0.08 K/ L 0.04-0.54 (BEAKER) (test code = 416) BASOPHILS ABSOLUTE COUNT (BEAKER) 0.04 K/ L 0.01-0.08 (test code = 417) IMMATURE GRANULOCYTES-RELATIVE 1 % 0-1 PERCENT (BEAKER) (test code = 2801) RAD, CHEST, 1 VIEW, NON [id number] 19:27:00Reason for exam:->SHORTNESS OF BREATHShould this be performed at the bedside?->YesFINAL REPORT TECHNIQUE: Frontal view of the chest. INDICATION: Shortness of br eath. COMPARISON: 10/27/2019. FINDINGS: LINES/TUBES: Right IJ port is unchanged with coiling of the catheter over the right supraclavicular region.LUNGS: Small right-sided pleural effusion and basilar consolidation remain unchanged. Left lung is clear.. No pneumothorax. HEART AND MEDIASTINUM: The cardiomediastinal silhouette is stable. SOFT TISSUES AND BONES: Unremarkable. IMPRESSION:Unchanged right basilar effusion and consolidation.. Signed: Olga Alamo MDReport Verified Date/Time: 04/22/2020 19:27:50 Reading Location: [address] Transitional Reading Room ANG, PERC TUNNELED INTRAPERITONEAL CATH, ALL [id number] 14:28:00Reason for Exam:->J90 FINAL REPORT Tunneled right pleural catheter insertion, 04/07/2020. History: Recurrent malignant pleural effusion. Modality:Fluoroscopy. Sedation: Versed 1.5 mg and fentanyl 100 mcg was given intravenously for conscious sedation. Vital signs were monitored throughout the procedure by a nurse, and remained stable. Physician intra-service time was 40 minutes. Technical Writer And Editor: Nelida. Senior Net Programmer: Nichol. Approach: Right lateral chest. Estimated blood loss: < 1 cc. Specimen: 0.45 liters of serosanguineous fluid. Fluoroscopy Time: 0.6 min. Dose (Ka,r): 60.1 mGy. Technique: Informed written consent was obtained. Discussion of risks, benefits, and alternatives were made with the patient. The patient expressed understanding and agreed to proceed. All elements maximal sterile barrier technique was utilized for this procedure, including utilization of sterile scrub solution for skin prep, a large sterile sheet to cover the areas of the patient that were not prepped, and hand hygiene, mask, head covering, and sterile gown for performing radiologist and scrub technologist. The skin was anesthetized with 2% lidocaine. The right pleural cavity was accessed using fluoro guidance with an 18-gauge angiocath. A Garland wire was advanced through the catheter and curled within the chest. A subcutaneous tunnel was created in the lateral chest wall by blunt dissection. A Paddy Pleurex catheter was brought through the tunnel. A peel-away sheath was placed into the pleuralcavity and the Pleurex catheter was advanced through the sheath, with its distal tip terminating in the right medial chest. The peel-away sheath was removed. The catheter was sutured to the skin with 2-0 silk to secure its placement. Vacuum bottle was attached to the tube to drain the fluid. Vital sig ns were monitored throughout the procedure by a nurse, and remained stable. The patient tolerated the procedure well and left the department in the same condition. Results: Spot radiograph of the chest demonstrates the Queens Pleurex catheter to lie in the expected position with its tip overlying the right midlung. Final x-ray demonstrates significant decrease in right pleural effusion without evidence of pneumothorax. Impression: Successful, uncomplicated placement of a right Paddy Pleurex tunneled catheter using fluoroscopic guidance and conscious sedation. Signed: Brock Bruno MDReport Verified Date/Time: 04/08/2020 14:28:27 Reading Location: [address] Body Reading Room ANG INTRAPERITONEAL PERMANENT [id number] 14:28:00 Interface, External Ris In - 04/08/2020 2:30 PM CDTFINAL REPORT Tunneled right pleural catheter insertion, 04/07/2020. History: Recurrent malignant pleural effusion. Modality:Fluoroscopy. Sedation: Versed 1.5 mg and fentanyl 100 mcg was given intravenously for conscious sedation. Vital signs were monitored throughout the procedure by a nurse, and remained stable. Physician intra- service time was 40 minutes. Technical Writer And Editor: Nelida. Senior Net Programmer: Nichol. Approach: Right lateral chest. Estimated blood loss: < 1 cc. Specimen: 0.45 liters of serosanguineous fluid. Fluoroscopy Time: 0.6 min. Dose (Ka,r): 60.1 mGy. Technique: Informed written consent was obtained. Discussion of risks, benefits, and alternatives were made with the patient. The patient expressed understanding and agreed to proceed. All elements maximal sterile barrier technique was utilized for this procedure, including utilization of sterile scrub solution for skin prep, a large sterile sheet to cover the areas of the patient that were not prepped, and hand hygiene, mask, head covering, and sterile gown for performing radiologist and scrub technologist. The skin was anesthetized with 2% lidocaine. The right pleural cavity was accessed using fluoro guidance with an 18-gauge angiocath. A Garland wi re was advanced through the catheter and curled within the chest. A subcutaneous tunnel was createdin the lateral chest wall by blunt dissection. A Paddy Pleurex catheter was brought through the tunnel. A peel-away sheath was placed into the pleural cavity and the Pleurex catheter was advanced through the sheath, with its distal tip terminating in the right medial chest. The peel- away sheath was removed. The catheter was sutured to the skin with 2-0 silk to secure its placement. Vacuum bottle was attached to the tube to drain the fluid. Vital signs were monitored throughout the procedure by a nurse, and remained stable. The patient tolerated the procedure well and left the department in the same condition. Results: Spot radiograph of the chest demonstrates the Queens Pleurex catheter to lie in the expected position with its tip overlying the right midlung. Final x-ray demonstrates significant decrease in right pleural effusion without evidence of pneumothorax. Impression: Successful, uncomplicated placement of a right Queens Pleurex tunneled catheter using fluoroscopic guidance and conscious sedation. Signed: Brock Bruno MDReport Verified Date/Time: 04/08/2020 14:28:27 Reading Location: [facility] P048 Angio Body Reading Room [facility] W/PLT COUNT & AUTO [id number] 07:37:00 Test Item Value Reference Range Interpretation Comments WHITE BLOOD CELL COUNT (BEAKER) 5.0 K/ L 3.5-10.5 (test code = 775) RED BLOOD CELL COUNT (BEAKER) 3.87 M/ L 4.63-6.08 L (test code = 761) HEMOGLOBIN (BEAKER) (test code = 11.4 GM/DL 13.7-17.5 L 410) HEMATOCRIT (BEAKER) (test code = 37.2 % 40.1-51.0 L 411) MEAN CORPUSCULAR VOLUME (BEAKER) 96.1 fL 79.0-92.2 H (test code = 753) MEAN CORPUSCULAR HEMOGLOBIN 29.5 pg 25.7-32.2 (BEAKER) (test code = 751) MEAN CORPUSCULAR HEMOGLOBIN CONC 30.6 GM/DL 32.3-36.5 L (BEAKER) (test code = 752) RED CELL DISTRIBUTION WIDTH 17.0 % 11.6-14.4 H (BEAKER) (test code = 412) PLATELET COUNT (BEAKER) (test 254 K/CU MM 150-450 code = 756) MEAN PLATELET VOLUME (BEAKER) 10.4 fL 9.4-12.4 (test code = 754) NUCLEATED RED BLOOD CELLS 0 /100 WBC 0-0 (BEAKER) (test code = 413) NEUTROPHILS RELATIVE PERCENT 47 % (BEAKER) (test code = 429) LYMPHOCYTES RELATIVE PERCENT 29 % (BEAKER) (test code = 430) MONOCYTES RELATIVE PERCENT 16 % (BEAKER) (test code = 431) EOSINOPHILS RELATIVE PERCENT 7 % (BEAKER) (test code = 432) BASOPHILS RELATIVE PERCENT 1 % (BEAKER) (test code = 437) NEUTROPHILS ABSOLUTE COUNT 2.33 K/ L 1.78-5.38 (BEAKER) (test code = 670) LYMPHOCYTES ABSOLUTE COUNT 1.45 K/ L 1.32-3.57 (BEAKER) (test code = 414) MONOCYTES ABSOLUTE COUNT (BEAKER) 0.78 K/ L 0.30-0.82 (test code = 415) EOSINOPHILS ABSOLUTE COUNT 0.32 K/ L 0.04-0.54 (BEAKER) (test code = 416) BASOPHILS ABSOLUTE COUNT (BEAKER) 0.04 K/ L 0.01-0.08 (test code = 417) IMMATURE GRANULOCYTES-RELATIVE 1 % 0-1 PERCENT (BEAKER) (test code = 2801) [id number] 07:16:00 Test Item Value Reference Range Interpretation Comments PARTIAL THROMBOPLASTIN TIME 26.5 seconds 22.5-36.0 (BEAKER) (test code = 760) PROTHROMBIN TIME/[id number] 07:15:00 Test Item Value Reference Range Interpretation Comments PROTIME (BEAKER) (test code = 14.0 seconds 11.9-14.2 759) INR (BEAKER) (test code = 370) 1.1 <=5.9 Effective 02/28/2019: PT Reference Range ChangeNew: 11.9-14.2 Previous: 11.7- 14.7RECOMMENDED COUMADIN/WARFARIN INR THERAPY RANGESSTANDARD DOSE: 2.0-3.0 Includes: PROPHYLAXIS for venous thrombosis, systemic embolization; TREATMENT for venous thrombosis and/or pulmonary embolus.HIGH RISK: Target INR is2.5-3.5 for patients wiht mechanical heart valves.CT, [id number] 08:47:00FINAL REPORT CT of the chest, abdomen and pelvis, with contrast Clinical History: Colon cancer metastasized to multiple sites Technique: CT of the chest, abdomen and pelvis is performed with intravenous contrast administration. This exam was performed according to our departmental dose optimization program which includes automated exposure control, adjustment of the mA and/or kV according to patient's size and/or use of iterative reconstructive technique. Comparison Film: January 18, 2020, October 23, 2019 Discussion: There is a right-sided Port-A-Cath. Visualized thyroid gland is normal. No supraclavicular, axillary, or hilar adenopathy. There is a cluster of mildly enlarged right diaphragmatic lymph nodes, unchanged. Heart and pericardium are unremarkable. There is a moderate loculated right pleural effusion, with mild plaque-like pleural thickening, as before. Stable patchy atelectasis in the right lung. Central airways are patent. No new mass is identified. No liverlesion is identified. There is no biliary ductal dilatation, gallbladder is normal. Spleen, pancreasare unremarkable. Stable left adrenal mass measuring approximately 3.4 cm. Kidneys demonstrate no mass, hydronephrosis or radiopaque stone. There is a stent in the descending colon. No obstruction. Normal appendix. In the pelvis, the bladder is unremarkable. Prostate gland is enlarged. Stable appearance of omental nodularity, compatible with carcinomatosis. No new adenopathy. No ascites. Bony structures demonstrate degenerative changes. Impression: Stable appearance of loculated right pleural effusion with pleural-based nodularity and mildly enlarged right diaphragmatic lymph nodes likely reflecting metastatic disease. Omental carcinomatosis is also unchanged. Stable left adrenal mass. Signed: Stefanie Royort Verified Date/Time: 03/13/2020 08:47:59 Reading Location: [address] CT, CHEST, WITH IV [id number] 08:47:00FINAL REPORT CT of the chest, abdomen and pelvis, with contrast Clinical History: Colon cancer metastasized to multiple sites Technique: CT of the chest, abdomen and pelvis is performed with intravenous contrast administration. This exam was performed according to our departmental dose optimization program which includes automated exposure control, adjustment of the mA and/or kV according to patient's size and/or use of iterative reconstructive technique. Comparison Film: January 18, 2020, October 23, 2019 Discussion: There is a right-sided Port-A-Cath. Visualized thyroid gland is normal. No supraclavicular, axillary, or hilar adenopathy. There is a cluster of mildly enlarged right diaphragmatic lymph nodes, unchanged. Heart and pericardium are unremarkable. There is a mod erate loculated right pleural effusion, with mild plaque-like pleural thickening, as before. Stable patchy atelectasis in the right lung. Central airways are patent. No new mass is identified. No liverlesion is identified. There is no biliary ductal dilatation, gallbladder is normal. Spleen, pancreas are unremarkable. Stable left adrenal mass measuring approximately 3.4 cm. Kidneys demonstrate no mass, hydronephrosis or radiopaque stone. There is a stent in the descending colon. No obstruction. Normal appendix. In the pelvis, the bladder is unremarkable. Prostate gland is enlarged. Stable appearance of omental nodularity, compatible with carcinomatosis. No new adenopathy. No ascites. Bony structures demonstrate degenerative changes. Impression: Stable appearance of loculated right pleural effusion with pleural-based nodularity and mildly enlarged right diaphragmatic lymph nodes likely reflecting metastatic disease. Omental carcinomatosis is also unchanged. Stable left adrenal mass. Signed: Stefanie Roy MDReport Verified Date/Time: 03/13/2020 08:47:59 Reading Location: [address] Ortho Consult Reading Room CT, CHEST, WITH IV [id number] 10:57:00FINAL REPORT CT of the chest, abdomen and pelvis, with contrast Clinical History: Colon cancer metastasized to multiple sites Technique: CT of the chest, abdomen and pelvis is performed with intravenous contrast administration. This exam was performed according to our departmental dose optimization program which includes automated exposure control, adjustment of the mA and/or kV according to patient's size and/or use of iterative reconstructive technique. Comparison Film: October 23, 2019, September 18, 2019, July 02, 2019, April 11, 2019 Discussion: Visualized thyroidgland is unremarkable. There is a right-sided Port-A-Cath. No supraclavicular, axillary, mediastinalor hilar lymphadenopathy. However, there is increased number of small nodules in the right diaphragmatic region, worrisome for metastasis. Heart and pericardium are unremarkable. There is a moderate tolarge right pleural effusion, which is partly loculated. There are multiple enhancing pleural-based nodules or plaque-like thickening, progressed since October 23, 2019, compatible with progression of metastasis. Central airways are patent, no significant bronchiectasis or bronchial wall thickening. No liver lesion is identified no biliary ductal dilatation, gallbladder appears normal. Spleen, pancreas, are also unremarkable. Stable left adrenal 3.3 cm mass. Kidneys demonstrate no mass, hydronephrosis or radiopaque stone. A stent is again seen in the descending colon. No bowel obstruction. Omental nodularity is stable, compatible with carcinomatosis. In the pelvis, bladder is normal. Prostate gland is mildly enlarged. No ascites. Osseous structures demonstrate degenerative changes. No suspicious bony lesion is identified. Impression: Moderate to large right pleural effusion. Increased right pleural nodularity and plaque-like thickening, compatible with progression of metastasis. There is also increased number of small right diaphragmatic lymph nodes, which are all likely metastatic. Stent in descending colon. Stable appearance of omental carcinomatosis. Stable left adrenal 3.3 cm mass. Signed: Stefanie Roy MDReport Verified Date/Time: 01/18/2020 10:57:00 Reading Location: [facility] C0X Ortho Consult Reading [facility], [id number] 10:57:00FINAL REPORT CT of the chest, abdomen and pelvis, with contrast Clinical History: Colon cancer metastasized to multiple sites Technique: CT of the chest, abdomen and pelvis is performed with intravenous contrast administration. This exam was performed according to our departmental dose optimization program which includes automated exposure control, adjustment of the mA and/or kV according to patient's size and/or use of iterative reconstructive technique. Comparison Film: October 23, 2019, September 18, 2019, July 02, 2019, April 11, 2019 Discussion: Visualized thyroidgland is unremarkable. There is a right-sided Port-A-Cath. No supraclavicular, axillary, mediastinalor hilar lymphadenopathy. However, there is increased number of small nodules in the right diaphragmatic region, worrisome for metastasis. Heart and pericardium are unremarkable. There is a moderate tolarge right pleural effusion, which is partly loculated. There are multiple enhancing pleural-based nodules or plaque-like thickening, progressed since October 23, 2019, compatible with progression of metastasis. Central airways are patent, no significant bronchiectasis or bronchial wall thickening. No liver lesion is identified no biliary ductal dilatation, gallbladder appears normal. Spleen, pancreas, are also unremarkable. Stable left adrenal 3.3 cm mass. Kidneys demonstrate no mass, hydronephrosis or radiopaque stone. A stent is again seen in the descending colon. No bowel obstruction. Omental nodularity is stable, compatible with carcinomatosis. In the pelvis, bladder is normal. Prostate gland is mildly enlarged. No ascites. Osseous structures demonstrate degenerative changes. No suspicious bony lesion is identified. Impression: Moderate to large right pleural effusion. Increased right pleural nodularity and plaque-like thickening, compatible with progression of metastasis. There is also increased number of small right diaphragmatic lymph nodes, which are all likely metastatic. Stent in descending colon. Stable appearance of omental carcinomatosis. Stable left adrenal 3.3 cm mass. Signed: Stefanie Roy MDReport Verified Date/Time: 01/18/2020 10:57:00 Reading Location: [facility] C013X Ortho Consult Reading Room [id number] 08:12:00 Test Item Value Reference Range Interpretation Comments POC-Creatinine (test 0.9 mg/dL 0.6-1.3 : TESTE D AT [facility] 7200 code = 1859) [facility] A, [facility] 7703 0: Department Of Mathematics Chair/Techni patrick ID = [id number] for MARY CARDONA POC-EGFR (test code 105 mL/min/1.73M2 = 1860) [id number] 08:12:00 Test Item Value Reference Range Interpretation Comments POC-CREATININE 0.9 mg/dL 0.6-1.3 : TESTED AT [facility] ([facility]) (test [address] [facility] code = 1859) A, [facility] 7 7030: Department Of Mathematics Chair/Techni patrick ID = [id number] for ASHLEY GARNETT POC-EGFR 105 mL/min/1.73M2 (BEAKER) (test code = 1860) [id number] 16:03:00Medical Cytology Report Case: [id number] Authorizing Provider: Nima Carranza MD Collected: 10/27/2019 1635 Ordering Location: [address] Received: 10/29/2019 1009 Service Pathologist: Charo Brar MD Specimen: Pleural, Right RIGHT PLEURAL FLUID (CYTOSPINS AND CELL BLOCK): - VERY RARE ATYPICAL CELLS PRESENT (see comment) Signing Pathologist Direct Phone Line: [phone] signed by Charo Brar MD on 10/30/2019 at 4:03 PMPlease also see cytopathology report [id number].The rare atypical cells noted in this current sample are less than those reportedly noted in the sample previous, [id number]. Please see that report for additional information.Additional testing on this small amount of material does not appear prudentat this time.55283, 79179Ndanp pleural effusion; HTN, DM, Afib/Aflutter, stage IV colon adenocarcinoma treated by Dr. Solitario with FOLFOX and most recently single agent 5FU admitted with SOB + dry coughrequiring thoracocentesis for R malignant pleural effusion.RIGHT PLEURAL FLUIDReceived 1100 ml brownfluidPrepared cell block(A2) using collodion bag and 4 cytospinsCollected: [id number]: [id number].U/S, [id number] 14:02:00Laterality?->RightReason for exam:->suspected malignant pleural effusionLabs to be Ordered:->Body Fluid Culture (w/Gram Stain, C\\T\\S)Labs to be Ordered:->Glucose+LDH+ProteinLabs to be Ordered:->CytologyFINAL REPORT Exam: Ultrasound guided thoracentesis Clinical History: Right-sided Pleural Effusion Technical Writer And Editor: Daiana Senior PA-C Supervising Physician: Jan Hanna MD Consent: Benefits and risks were explained to the patient who gave consent to the procedure. Complication: None Immediate Procedure: The patient was placed in sitting position. The right posterior chest was prepped and draped in usual [...] MDReport Verified Date/Time: 10/30/2019 14:02:14 Reading Location: [address] Ultrasound Reading Room [id number] 11:52:00Medical Cytology Report Case: [id number] Authorizing Provider: Nima Carranza MD Collected: 10/25/2019 0169 Ordering Location: [address] Received: 10/26/2019 0959 Service Pathologist: Taylor Kessler MD Specimen: Pleural, Right RIGHT PLEURAL FLUID (CYTOSPINS AND CELL BLOCK): - FEW ATYPICAL CELLS CONSISTENT WITH METASTATIC CARCINOMA (SEE COMMENT) Preliminary result electronically signed by Taylor Kessler MD on 10/26/2019 at 3:49 PMRare single atypical cells are seen and the i mmunohistochemical features and history of metastatic colon cancer favor malignant cells of colonic origin. Due to the overall paucity of atypical cells, cytologic examination of any recurrent pleuraleffusions is recommended.27898, 29665, 19030 x 1, 97522 x 89 y.o. man with hx of Stage IV colon cancer with omental metastases (dx 07/2018, s/p FOLFOX and 5FU chemotherapy) c/b prior large bowel obstruction (s/p stent placement), reported to have malignant pleural effusions (recent thoracentesis 09/2019), and malignant ascitesRIGHT PLEURAL FLUIDReceived 1100 mls bloody fluid; Prepared 4 cytospins, cell block(A2) using collodion bagCollected: [id number]: [id number].SatisfactoryThe interpretation of this case included the use [...] evaluated Immunohistochemistry technical testing was performed at [facility], Pathology Laboratory where it was developed and its performance characteristics were determined. It has not been cleared or approved by the U.S. Food and Drug Administration. The FDA has determined that such clearance or approval is not necessary. The test is usedfor clinical purposes. It should not be regarded as investigational or for research. This laboratoryis certified under the Clinical Laboratory Improvement Amendments of 1988 (CLIA-88) as qualified to perform high complexity clinical laboratory testing.[facility], Department of Pathology, [address] [place] [id number], [facility]fpuvK[facility], [facility] of Pathology, [address] [place] [id number], [facility]zwjJer[facility], Department of [facility]ology, [address] [place] [id number], GMNG FLUID CULTURE + GRAM [id number] 15:54:00 Test Item Value Reference Range Interpretation Comments CULTURE (BEAKER) (test No growth code = 1095) GRAM STAIN RESULT <1+ White blood cells (BEAKER) (test code = seen 1123) GRAM STAIN RESULT No organisms seen (BEAKER) (test code = 45318) RAD, CHEST, PA OR AP, 1 [id number] 17:45:00Reason for exam:->right side thoracentesisFINAL REPORT TECHNIQUE: [...] MDReport Verified Date/Time: 10/27/2019 17:45:36 Reading Location: [facility] B1 C013Y CT Body Reading Room BODY FLUID CELL COUNT WITH [id number] 17:23:00 Test Item Value Reference Range Interpretation Comments APPEARANCE FLUID (BEAKER) Bloody Clear A (test code = 510) COLOR FLUID (BEAKER) (test Red Colorless, Straw A code = 511) RBC FLUID (BEAKER) (test code 322413 /cu mm <=1 H = 513) ADJUSTED WBC FLUID (BEAKER) 2050 /cu mm <=5 H (test code = 1691) LINING CELLS (BEAKER) (test 20 /cu mm <=1 H code = 1590) NEUTROPHILS FLUID (BEAKER) 33 % (test code = 1656) LYMPHS FLUID (BEAKER) (test 47 % code = 488) MONO/MACROPHAGE FLUID (BEAKER) 13 % (test code = 489) EOSINOPHILS FLUID (BEAKER) 7 % (test code = 491) BASO FLUID (BEAKER) (test code 0 % = 492) CONTAINER BODY FLUID (BEAKER) EDTA Tube (test code = 2873) U/S, [id number] 17:08:00Laterality?->RightReason for exam:- >persistent fluid, still symptomatic, re-tap for therapeutic and diagnostic purposesLabs to be Ordered:->Glucose+LDH+ProteinLabs to be Ordered:->Body Fluid Culture (w/Gram Stain, C\\T\\S)Labs to be Ordered:->CytologyFINAL REPORT PROCEDURE: Ultrasound-guided thoracentesis INDICATION: 58-year-old man with right pleural effusion. DESCRIPTION: After obtaining informed written consent, ultrasoundscan showed pleural effusion on the right. The overlying skin was prepped and draped in the usual, sterile fashion and local 2% lidocaine anesthesia was administered. A 4 Barbadian catheter was advanced into the pleural cavity and 1300 cc of bloody fluid was removed. The catheter was removed without immediate complication. Samples were sent for analysis. IMPRESSION:Uncomplicated ultrasound-guided right thoracentesis with 1300 cc fluid removed. Signed: Stephanie Duffy MDReport Verified Date/Time: 10/27/2019 17:08:31 Reading Location: [facility] B1 C013Y [place] Body Reading Room POCT-GLUCOSE METER 2019-10-27 11:21:00 Test Item Value Reference Range Interpretation Comments POC-GLUCOSE METER 162 mg/dL 70-110 H : TESTED A T [facility] 6720 (BEAKER) (test code = NAMITA Br[place]ley [place], 1538) [id number]: Department Of Mathematics Chair/Techni patrick ID = [id number] for IB ARIELLAMMARIELLELEM POCT-GLUCOSE [id number] 07:21:00 Test Item Value Reference Range Interpretation Comments POC-GLUCOSE METER 136 mg/dL 70-110 H : TESTED A T [facility] 6720 (BEAKER) (test code = NAMITA Brantley [place], 1538) [address]: Department Of Mathematics Chair/Techni patrick ID = [id number] for IB ARIELLAM, SERKERRYLEM [id number] 06:31:00 Test Item Value Reference Range Interpretation Comments MAGNESIUM (BEAKER) (test code = 2.1 mg/dL 1.6-2.6 627) Department Of Mathematics Chair ID - ARGENIS MBASIC METABOLIC [id number] 06:31:00 Test Item Value Reference Range Interpretation Comments SODIUM (BEAKER) 137 meq/L 136-145 (test code = 381) POTASSIUM (BEAKER) 4.4 meq/L 3.5-5.1 (test code = 379) CHLORIDE (BEAKER) 103 meq/L 98-107 (test code = 382) CO2 (BEAKER) (test 27 meq/L 22-29 code = 355) BLOOD UREA NITROGEN 18 mg/dL 7-21 (BEAKER) (test code = 354) CREATININE (BEAKER) 0.84 mg/dL 0.57-1.25 (test code = 358) GLUCOSE RANDOM 133 mg/dL 70-105 H (BEAKER) (test code = 652) CALCIUM (BEAKER) 8.8 mg/dL 8.4-10.2 (test code = 697) EGFR (BEAKER) (test 114 mL/min/1.73 ESTIM ATED GFR IS code = 1092) sq m NOT ACCURATE CREATININE CLEARANCE IN PREDICTING GLOMERULAR FILTRATION RATE . ESTIMATED GFR I S NOT APPLICABLE FOR DIALYSIS PATIEN TS. Department Of Mathematics Chair ID - ARGENIS MPROTHROMBIN TIME/[id number] 05:51:00 Test Item Value Reference Range Interpretation Comments PROTIME (BEAKER) (test code = 14.0 seconds 11.9-14.2 759) INR (BEAKER) (test code = 370) 1.1 <=5.9 Effective 02/28/2019: PT Reference Range ChangeNew: 11.9-14.2 Previous: 11.7- 14.7RECOMMENDED COUMADIN/WARFARIN INR THERAPY RANGESSTANDARD DOSE: 2.0-3.0 Includes: PROPHYLAXIS for venous thrombosis, systemic embolization; TREATMENT for venous thrombosis and/or pulmonary embolus.HIGH RISK: Target INR is2.5-3.5 for patients wiht mechanical heart valves.CBC W/PLT COUNT & AUTO [id number] 05:41:00 Test Item Value Reference Range Interpretation Comments WHITE BLOOD CELL COUNT (BEAKER) 7.7 K/ L 3.5-10.5 (test code = 775) RED BLOOD CELL COUNT (BEAKER) 4.14 M/ L 4.63-6.08 L (test code = 761) HEMOGLOBIN (BEAKER) (test code = 12.8 GM/DL 13.7-17.5 L 410) HEMATOCRIT (BEAKER) (test code = 40.3 % 40.1-51.0 411) MEAN CORPUSCULAR VOLUME (BEAKER) 97.3 fL 79.0-92.2 H (test code = 753) MEAN CORPUSCULAR HEMOGLOBIN 30.9 pg 25.7-32.2 (BEAKER) (test code = 751) MEAN CORPUSCULAR HEMOGLOBIN CONC 31.8 GM/DL 32.3-36.5 L (BEAKER) (test code = 752) RED CELL DISTRIBUTION WIDTH 14.0 % 11.6-14.4 (BEAKER) (test code = 412) PLATELET COUNT (BEAKER) (test 228 K/CU MM 150-450 code = 756) MEAN PLATELET VOLUME (BEAKER) 11.1 fL 9.4-12.4 (test code = 754) NUCLEATED RED BLOOD CELLS 0 /100 WBC 0-0 (BEAKER) (test code = 413) NEUTROPHILS RELATIVE PERCENT 65 % (BEAKER) (test code = 429) LYMPHOCYTES RELATIVE PERCENT 17 % (BEAKER) (test code = 430) MONOCYTES RELATIVE PERCENT 13 % (BEAKER) (test code = 431) EOSINOPHILS RELATIVE PERCENT 4 % (BEAKER) (test code = 432) BASOPHILS RELATIVE PERCENT 1 % (BEAKER) (test code = 437) NEUTROPHILS ABSOLUTE COUNT 4.94 K/ L 1.78-5.38 (BEAKER) (test code = 670) LYMPHOCYTES ABSOLUTE COUNT 1.30 K/ L 1.32-3.57 L (BEAKER) (test code = 414) MONOCYTES ABSOLUTE COUNT (BEAKER) 1.00 K/ L 0.30-0.82 H (test code = 415) EOSINOPHILS ABSOLUTE COUNT 0.34 K/ L 0.04-0.54 (BEAKER) (test code = 416) BASOPHILS ABSOLUTE COUNT (BEAKER) 0.07 K/ L 0.01-0.08 (test code = 417) IMMATURE GRANULOCYTES-RELATIVE 0 % 0-1 PERCENT (BEAKER) (test code = 2801) POCT-GLUCOSE [id number] 21:40:00 Test Item Value Reference Range Interpretation Comments POC-GLUCOSE METER 140 mg/dL 70-110 H : TESTED A T [facility] 6720 (BEAKER) (test code = NAM[place], 1538) [address]: Department Of Mathematics Chair/Techni patrick ID = [id number] for Chayito Yoon [id number] 18:44:00 Test Item Value Reference Range Interpretation Comments MAGNESIUM (BEAKER) 2.1 mg/dL 1.6-2.6 Specimen slightly (test code = 627) hemolyzed Department Of Mathematics Chair ID - MAHAD EBASIC METABOLIC [id number] 18:44:00 Test Item Value Reference Range Interpretation Comments SODIUM (BEAKER) 137 meq/L 136-145 (test code = 381) POTASSIUM (BEAKER) 5.2 meq/L 3.5-5.1 H Specimen slightly (test code = 379) hemolyzed CHLORIDE (BEAKER) 103 meq/L 98-107 (test code = 382) CO2 (BEAKER) (test 27 meq/L 22-29 code = 355) BLOOD UREA NITROGEN 21 mg/dL 7-21 (BEAKER) (test code = 354) CREATININE (BEAKER) 1.03 mg/dL 0.57-1.25 Specimen slightly (test code = 358) hemolyzed GLUCOSE RANDOM 153 mg/dL 70-105 H (BEAKER) (test code = 652) CALCIUM (BEAKER) 8.4 mg/dL 8.4-10.2 (test code = 697) EGFR (BEAKER) (test 90 mL/min/1.73 ESTIMA EDSON GFR IS code = 1092) sq m NOT ACCURATE CREATININE CLEARANCE IN PREDICTING GLOMERULAR FILTRATION RATE . ESTIMATED GFR I S NOT APPLICABLE FOR DIALYSIS PATIEN TS. Department Of Mathematics Chair ID - MAHAD ELACTATE DEHYDROGENASE (LDH)2019-10-26 18:44:00 Test Item Value Reference Range Interpretation Comments LACTATE DEHYDROGENASE 345 U/L 125-220 H Specim en slightly (BEAKER) (test code = hemoly zed 635) Department Of Mathematics Chair ID - MAHAD EPOCT-GLUCOSE [id number] 16:31:00 Test Item Value Reference Range Interpretation Comments POC-GLUCOSE METER 143 mg/dL 70-110 H : TESTED A T [facility] 6720 (BEAKER) (test code = [facility], 1538) [address]: Department Of Mathematics Chair/Techni patrick ID = [id number] for IB RAHIM, SERKALEM POCT-GLUCOSE [id number] 10:51:00 Test Item Value Reference Range Interpretation Comments POC-GLUCOSE METER 135 mg/dL 70-110 H : TESTED A T [facility] 6720 (BEAKER) (test code = [facility], 1538) [address]: Department Of Mathematics Chair/Techni patrick ID = [id number] for IB RAHIM, SERKALEM CBC W/PLT COUNT & AUTO [id number] 10:37:00 Test Item Value Reference Range Interpretation Comments WHITE BLOOD CELL COUNT (BEAKER) 9.3 K/ L 3.5-10.5 (test code = 775) RED BLOOD CELL COUNT (BEAKER) 4.44 M/ L 4.63-6.08 L (test code = 761) HEMOGLOBIN (BEAKER) (test code = 13.4 GM/DL 13.7-17.5 L 410) HEMATOCRIT (BEAKER) (test code = 43.2 % 40.1-51.0 411) MEAN CORPUSCULAR VOLUME (BEAKER) 97.3 fL 79.0-92.2 H (test code = 753) MEAN CORPUSCULAR HEMOGLOBIN 30.2 pg 25.7-32.2 (BEAKER) (test code = 751) MEAN CORPUSCULAR HEMOGLOBIN CONC 31.0 GM/DL 32.3-36.5 L (BEAKER) (test code = 752) RED CELL DISTRIBUTION WIDTH 14.2 % 11.6-14.4 (BEAKER) (test code = 412) PLATELET COUNT (BEAKER) (test 272 K/CU MM 150-450 code = 756) MEAN PLATELET VOLUME (BEAKER) 10.6 fL 9.4-12.4 (test code = 754) NUCLEATED RED BLOOD CELLS 0 /100 WBC 0-0 (BEAKER) (test code = 413) NEUTROPHILS RELATIVE PERCENT 66 % (BEAKER) (test code = 429) LYMPHOCYTES RELATIVE PERCENT 17 % (BEAKER) (test code = 430) MONOCYTES RELATIVE PERCENT 13 % (BEAKER) (test code = 431) EOSINOPHILS RELATIVE PERCENT 4 % (BEAKER) (test code = 432) BASOPHILS RELATIVE PERCENT 1 % (BEAKER) (test code = 437) NEUTROPHILS ABSOLUTE COUNT 6.10 K/ L 1.78-5.38 H (BEAKER) (test code = 670) LYMPHOCYTES ABSOLUTE COUNT 1.54 K/ L 1.32-3.57 (BEAKER) (test code = 414) MONOCYTES ABSOLUTE COUNT (BEAKER) 1.18 K/ L 0.30-0.82 H (test code = 415) EOSINOPHILS ABSOLUTE COUNT 0.36 K/ L 0.04-0.54 (BEAKER) (test code = 416) BASOPHILS ABSOLUTE COUNT (BEAKER) 0.06 K/ L 0.01-0.08 (test code = 417) IMMATURE GRANULOCYTES-RELATIVE 0 % 0-1 PERCENT (BEAKER) (test code = 2801) POCT-GLUCOSE [id number] 04:16:00 Test Item Value Reference Range Interpretation Comments POC-GLUCOSE METER 183 mg/dL 70-110 H : TESTED A T [facility] 6720 (BEAKER) (test code = NAMT[place], 1538) [address]: Department Of Mathematics Chair/Techni patrick ID = [id number] for LETA COX BODY FLUID CELL COUNT WITH [id number] 21:39:00 Test Item Value Reference Range Interpretation Comments APPEARANCE FLUID (BEAKER) Bloody Clear A (test code = 510) COLOR FLUID (BEAKER) (test Red Colorless, Straw A code = 511) RBC FLUID (BEAKER) (test code 412112 /cu mm <=1 H = 513) ADJUSTED WBC FLUID (BEAKER) 1657 /cu mm <=5 H (test code = 1691) LINING CELLS (BEAKER) (test 33 /cu mm <=1 H code = 1590) NEUTROPHILS FLUID (BEAKER) 13 % (test code = 1656) LYMPHS FLUID (BEAKER) (test 64 % code = 488) MONO/MACROPHAGE FLUID (BEAKER) 11 % (test code = 489) EOSINOPHILS FLUID (BEAKER) 9 % (test code = 491) BASO FLUID (BEAKER) (test code 3 % = 492) CONTAINER BODY FLUID (BEAKER) EDTA Tube (test code = 2873) POCT-GLUCOSE [id number] 19:01:00 Test Item Value Reference Range Interpretation Comments POC-GLUCOSE METER 123 mg/dL 70-110 H : TESTED A T [facility] 6720 (BEAKER) (test code = NAMITA Brantley [facility], 1538) [address]: Department Of Mathematics Chair/Techni patrick ID = [id number] for BEVERLY DICKSON RAD, CHEST, 1 VIEW, NON [id number] 18:04:00Reason for exam:->post right sided thoracentesisShould this be performed at the bedside?->YesFINAL REPORT INDICATION: post right sided thoracentesis TECHNIQUE: Chest radiograph, single view, portable technique. FINDINGS / IMPRESSION: No pneumothorax is demonstrated afterright thoracentesis. Moderate right pleural effusion is not significantly changed in size since October 23. Enlarged heart shadow and right chest port again demonstrated. Right chest port turns back on itself in the internal jugular vein and terminates in the upper SVC. Signed: Jair Venegas MDReport Verified Date/Time: 10/25/2019 18:04:22 Reading Location: [address] Transitional Reading Room POCT-GLUCOSE [id number] 12:43:00 Test Item Value Reference Range Interpretation Comments POC-GLUCOSE METER 144 mg/dL 70-110 H : TESTED A T [facility] 6720 (BEAKER) (test code = NAMITA Brantley [facility], 1538) [address]: Department Of Mathematics Chair/Techni patrick ID = [id number] for BEVERLY DICKSON [id number] 06:05:00 Test Item Value Reference Range Interpretation Comments MAGNESIUM (BEAKER) (test code = 2.1 mg/dL 1.6-2.6 627) Department Of Mathematics Chair ID - BSBASIC METABOLIC [id number] 06:05:00 Test Item Value Reference Range Interpretation Comments SODIUM (BEAKER) 137 meq/L 136-145 (test code = 381) POTASSIUM (BEAKER) 4.3 meq/L 3.5-5.1 (test code = 379) CHLORIDE (BEAKER) 102 meq/L 98-107 (test code = 382) CO2 (BEAKER) (test 26 meq/L 22-29 code = 355) BLOOD UREA NITROGEN 23 mg/dL 7-21 H (BEAKER) (test code = 354) CREATININE (BEAKER) 0.88 mg/dL 0.57-1.25 (test code = 358) GLUCOSE RANDOM 126 mg/dL 70-105 H (BEAKER) (test code = 652) CALCIUM (BEAKER) 8.7 mg/dL 8.4-10.2 (test code = 697) EGFR (BEAKER) (test 108 mL/min/1.73 ESTIM ATED GFR IS code = 1092) sq m NOT ACCURATE CREATININE CLEARANCE IN PREDICTING GLOMERULAR FILTRATION RATE . ESTIMATED GFR I S NOT APPLICABLE FOR DIALYSIS PATIEN TS. Department Of Mathematics Chair ID - BSPT/[id number] 05:00:00 Test Item Value Reference Range Interpretation Comments PROTIME (BEAKER) (test code = 14.2 seconds 11.9-14.2 759) INR (BEAKER) (test code = 370) 1.1 <=5.9 PARTIAL THROMBOPLASTIN TIME 27.6 seconds 22.5-36.0 (BEAKER) (test code = 760) Effective 02/28/2019: PT Reference Range ChangeNew: 11.9-14.2 Previous: 11.7- 14.7RECOMMENDED COUMADIN/WARFARIN INR THERAPY RANGESSTANDARD DOSE: 2.0-3.0 Includes: PROPHYLAXIS for venous thrombosis, systemic embolization; TREATMENT for venous thrombosis and/or pulmonary embolus.HIGH RISK: Target INR is2.5-3.5 for patients wiht mechanical heart valves.CBC W/PLT COUNT & AUTO [id number] 04:47:00 Test Item Value Reference Range Interpretation Comments WHITE BLOOD CELL COUNT (BEAKER) 7.8 K/ L 3.5-10.5 (test code = 775) RED BLOOD CELL COUNT (BEAKER) 4.10 M/ L 4.63-6.08 L (test code = 761) HEMOGLOBIN (BEAKER) (test code = 12.6 GM/DL 13.7-17.5 L 410) HEMATOCRIT (BEAKER) (test code = 39.8 % 40.1-51.0 L 411) MEAN CORPUSCULAR VOLUME (BEAKER) 97.1 fL 79.0-92.2 H (test code = 753) MEAN CORPUSCULAR HEMOGLOBIN 30.7 pg 25.7-32.2 (BEAKER) (test code = 751) MEAN CORPUSCULAR HEMOGLOBIN CONC 31.7 GM/DL 32.3-36.5 L (BEAKER) (test code = 752) RED CELL DISTRIBUTION WIDTH 14.4 % 11.6-14.4 (BEAKER) (test code = 412) PLATELET COUNT (BEAKER) (test 211 K/CU MM 150-450 code = 756) MEAN PLATELET VOLUME (BEAKER) 10.6 fL 9.4-12.4 (test code = 754) NUCLEATED RED BLOOD CELLS 0 /100 WBC 0-0 (BEAKER) (test code = 413) NEUTROPHILS RELATIVE PERCENT 58 % (BEAKER) (test code = 429) LYMPHOCYTES RELATIVE PERCENT 20 % (BEAKER) (test code = 430) MONOCYTES RELATIVE PERCENT 15 % (BEAKER) (test code = 431) EOSINOPHILS RELATIVE PERCENT 5 % (BEAKER) (test code = 432) BASOPHILS RELATIVE PERCENT 1 % (BEAKER) (test code = 437) NEUTROPHILS ABSOLUTE COUNT 4.51 K/ L 1.78-5.38 (BEAKER) (test code = 670) LYMPHOCYTES ABSOLUTE COUNT 1.57 K/ L 1.32-3.57 (BEAKER) (test code = 414) MONOCYTES ABSOLUTE COUNT (BEAKER) 1.19 K/ L 0.30-0.82 H (test code = 415) EOSINOPHILS ABSOLUTE COUNT 0.41 K/ L 0.04-0.54 (BEAKER) (test code = 416) BASOPHILS ABSOLUTE COUNT (BEAKER) 0.05 K/ L 0.01-0.08 (test code = 417) IMMATURE GRANULOCYTES-RELATIVE 0 % 0-1 PERCENT (BEAKER) (test code = 2801) POCT-GLUCOSE [id number] 21:38:00 Test Item Value Reference Range Interpretation Comments POC-GLUCOSE METER 170 mg/dL 70-110 H : TESTED A T [facility] 6720 (BEAKER) (test code = [facility], 1538) [address]: Department Of Mathematics Chair/Techni patrick ID = [id number] for MARLENY SETH POCT-GLUCOSE [id number] 17:40:00 Test Item Value Reference Range Interpretation Comments POC-GLUCOSE METER 211 mg/dL 70-110 H : TESTED A T [facility] 6720 (BEAKER) (test code = [facility], 1538) 7[address]: Department Of Mathematics Chair/Techni patrick ID = [id number] for Vi ctEstefany engel POCT-GLUCOSE [id number] 11:07:00 Test Item Value Reference Range Interpretation Comments POC-GLUCOSE METER 168 mg/dL 70-110 H : TESTED A T [facility] 6720 (BEAKER) (test code = [facility], 1538) [address]: Department Of Mathematics Chair/Techni patrick ID = [id number] for Vi ctEstefany engel POCT-GLUCOSE [id number] 07:58:00 Test Item Value Reference Range Interpretation Comments POC-GLUCOSE METER 129 mg/dL 70-110 H : TESTED A T [facility] 6720 (BEAKER) (test code = [facility], 1538) 21447: Department Of Mathematics Chair/Techni patrick ID = [id number] for Vi ctorEstefany [id number] 06:35:00 Test Item Value Reference Range Interpretation Comments MAGNESIUM (BEAKER) (test code = 2.1 mg/dL 1.6-2.6 627) Department Of Mathematics Chair ID - ARGENIS MBASIC METABOLIC [id number] 06:35:00 Test Item Value Reference Range Interpretation Comments SODIUM (BEAKER) 139 meq/L 136-145 (test code = 381) POTASSIUM (BEAKER) 4.0 meq/L 3.5-5.1 (test code = 379) CHLORIDE (BEAKER) 105 meq/L 98-107 (test code = 382) CO2 (BEAKER) (test 28 meq/L 22-29 code = 355) BLOOD UREA NITROGEN 18 mg/dL 7-21 (BEAKER) (test code = 354) CREATININE (BEAKER) 0.83 mg/dL 0.57-1.25 (test code = 358) GLUCOSE RANDOM 123 mg/dL 70-105 H (BEAKER) (test code = 652) CALCIUM (BEAKER) 8.9 mg/dL 8.4-10.2 (test code = 697) EGFR (BEAKER) (test 115 mL/min/1.73 ESTIM ATED GFR IS code = 1092) sq m NOT ACCURATE CREATININE CLEARANCE IN PREDICTING GLOMERULAR FILTRATION RATE . ESTIMATED GFR I S NOT APPLICABLE FOR DIALYSIS PATIEN TS. Department Of Mathematics Chair ID - ARGENIS MCARCINOEMBRYONIC ANTIGEN (CEA)2019-10-24 06:24:00 Test Item Value Reference Range Interpretation Comments CARCINOEMBRYONIC ANTIGEN (BEAKER) 100.3 ng/mL 0.0-5.0 H (test code = 685) Department Of Mathematics Chair ID - ARGENIS MTSH/FREE T4 IF [id number] 06:24:00 Test Item Value Reference Range Interpretation Comments THYROID STIMULATING HORMONE 1.00 uIU/mL 0.35-4.94 (BEAKER) (test code = 772) Department Of Mathematics Chair ID - ARGENIS MTROPONIN [id number] 06:16:00 Test Item Value Reference Range Interpretation Comments TROPONIN I (BEAKER) (test code = 397) < ng/mL 0.00-0.03 Troponin I (TnI) levels [...] failure, acidosis, acute neurological disease, and persistent tachyarrhythmia.Department Of Mathematics Chair ID - ARGENIS MLACTATE DEHYDROGENASE (LDH)2019-10-24 06:08:00 Test Item Value Reference Range Interpretation Comments LACTATE DEHYDROGENASE (BEAKER) (test 209 U/L 125-220 code = 635) Department Of Mathematics Chair ID - ARGENIS MCBC W/PLT COUNT & AUTO [id number] 05:43:00 Test Item Value Reference Range Interpretation Comments WHITE BLOOD CELL COUNT (BEAKER) 8.5 K/ L 3.5-10.5 (test code = 775) RED BLOOD CELL COUNT (BEAKER) 4.58 M/ L 4.63-6.08 L (test code = 761) HEMOGLOBIN (BEAKER) (test code = 13.8 GM/DL 13.7-17.5 410) HEMATOCRIT (BEAKER) (test code = 44.8 % 40.1-51.0 411) MEAN CORPUSCULAR VOLUME (BEAKER) 97.8 fL 79.0-92.2 H (test code = 753) MEAN CORPUSCULAR HEMOGLOBIN 30.1 pg 25.7-32.2 (BEAKER) (test code = 751) MEAN CORPUSCULAR HEMOGLOBIN CONC 30.8 GM/DL 32.3-36.5 L (BEAKER) (test code = 752) RED CELL DISTRIBUTION WIDTH 14.6 % 11.6-14.4 H (BEAKER) (test code = 412) PLATELET COUNT (BEAKER) (test 229 K/CU MM 150-450 code = 756) MEAN PLATELET VOLUME (BEAKER) 10.6 fL 9.4-12.4 (test code = 754) NUCLEATED RED BLOOD CELLS 0 /100 WBC 0-0 (BEAKER) (test code = 413) NEUTROPHILS RELATIVE PERCENT 66 % (BEAKER) (test code = 429) LYMPHOCYTES RELATIVE PERCENT 16 % (BEAKER) (test code = 430) MONOCYTES RELATIVE PERCENT 12 % (BEAKER) (test code = 431) EOSINOPHILS RELATIVE PERCENT 5 % (BEAKER) (test code = 432) BASOPHILS RELATIVE PERCENT 1 % (BEAKER) (test code = 437) NEUTROPHILS ABSOLUTE COUNT 5.62 K/ L 1.78-5.38 H (BEAKER) (test code = 670) LYMPHOCYTES ABSOLUTE COUNT 1.39 K/ L 1.32-3.57 (BEAKER) (test code = 414) MONOCYTES ABSOLUTE COUNT (BEAKER) 1.00 K/ L 0.30-0.82 H (test code = 415) EOSINOPHILS ABSOLUTE COUNT 0.43 K/ L 0.04-0.54 (BEAKER) (test code = 416) BASOPHILS ABSOLUTE COUNT (BEAKER) 0.06 K/ L 0.01-0.08 (test code = 417) IMMATURE GRANULOCYTES-RELATIVE 1 % 0-1 PERCENT (BEAKER) (test code = 2801) POCT-GLUCOSE [id number] 00:33:00 Test Item Value Reference Range Interpretation Comments POC-GLUCOSE METER 109 mg/dL 70-110 : TESTED Marleen Crooks [facility] 6720 (BEAKER) (test code = [place], 1538) [address]: Department Of Mathematics Chair/Techni patrick ID = [id number] for Chayito Yoon TROPONIN [id number] 17:41:00 Test Item Value Reference Range Interpretation Comments TROPONIN I (ZACHARY) (test code = 397) < ng/mL 0.00-0.03 Troponin I (TnI) levels [...] failure, acidosis, acute neurological disease, and persistent tachyarrhythmia.Department Of Mathematics Chair ID - BSPOCT-GLUCOSE METER 2019-10-23 17:16:00 Test Item Value Reference Range Interpretation Comments POC-GLUCOSE METER 60 mg/dL 70-110 L : [facility] (ZACHARY) (test code = [place], 1538) 475[address]: Department Of Mathematics Chair/Techni patrick ID = [id number] for Ion orEstefany, CHEST, 2 [id number] 14:27:00Reason for exam:->SHORTNESS OF BREATHx3 months; worse over last month; recent admission in [facility] REPORT INDICATION: SHORTNESS OF BREATH COMPARISON: July 16, 2019 TECHNIQUE: Frontal and lateral views of the chest. FINDINGS: Lungs and pleura: Moderate right effusion and adjacent compressive atelectasis..Heart and mediastinum: Normal heart size. Unremarkable mediastinal contours.Osseous structures: No acute abnormality.Additional findings: Port-A-Cath tip overlies the SVC. IMPRESSION: Moderate right effusion with adjacent compressive atelectasis Signed: Twila [place] Verified Date/Time: 10/23/2019 14:27:38 Reading Location: [facility] Reading Room [id number] 13:25:00 Test Item Value Reference Range Interpretation Comments PARTIAL THROMBOPLASTIN TIME 26.1 sec 22.5-36.0 (ZACHARY) (test code = 760) PROTHROMBIN TIME/[id number] 13:25:00 Test Item Value Reference Range Interpretation Comments PROTIME (BEAKER) (test code = 759) 11.0 sec 11.7-14.7 L INR (BEAKER) (test code = 370) 1.1 INR <=5.9 RECOMMENDED COUMADIN/WARFARIN INR THERAPY RANGESSTANDARD DOSE: 2.0 - 3.0 Includes: PROPHYLAXIS forvenous thrombosis, systemic embolization; TREATMENT for venous thrombosis and/or pulmonary embolus.HIGH RISK: Target INR is 2.5-3.5 for patients with mechanical heart valves.CBC W/PLT COUNT & AUTO DIFFERENTIAL 2019-10-23 12:51:00 Test Item Value Reference Range Interpretation Comments WHITE BLOOD CELL COUNT (BEAKER) 9.9 K/ L 3.5-10.5 (test code = 775) RED BLOOD CELL COUNT (BEAKER) 4.28 M/ L 4.63-6.08 L (test code = 761) HEMOGLOBIN (BEAKER) (test code = 13.3 GM/DL 13.7-17.5 L 410) HEMATOCRIT (BEAKER) (test code = 42.1 % 40.1-51.0 411) MEAN CORPUSCULAR VOLUME (BEAKER) 98.4 fL 79.0-92.2 H (test code = 753) MEAN CORPUSCULAR HEMOGLOBIN 31.1 pg 25.7-32.2 (BEAKER) (test code = 751) MEAN CORPUSCULAR HEMOGLOBIN CONC 31.6 GM/DL 32.3-36.5 L (BEAKER) (test code = 752) RED CELL DISTRIBUTION WIDTH 14.6 % 11.6-14.4 H (BEAKER) (test code = 412) PLATELET COUNT (BEAKER) (test 227 K/CU MM 150-450 code = 756) MEAN PLATELET VOLUME (BEAKER) 10.4 fL 9.4-12.4 (test code = 754) NEUTROPHILS RELATIVE PERCENT 69 % (BEAKER) (test code = 429) LYMPHOCYTES RELATIVE PERCENT 17 % (BEAKER) (test code = 430) MONOCYTES RELATIVE PERCENT 9 % (BEAKER) (test code = 431) EOSINOPHILS RELATIVE PERCENT 4 % (BEAKER) (test code = 432) BASOPHILS RELATIVE PERCENT 1 % (BEAKER) (test code = 437) NEUTROPHILS ABSOLUTE COUNT 6.88 K/ L 1.78-5.38 H (BEAKER) (test code = 670) LYMPHOCYTES ABSOLUTE COUNT 1.64 K/ L 1.32-3.57 (BEAKER) (test code = 414) MONOCYTES ABSOLUTE COUNT (BEAKER) 0.89 K/ L 0.30-0.82 H (test code = 415) EOSINOPHILS ABSOLUTE COUNT 0.42 K/ L 0.04-0.54 (BEAKER) (test code = 416) BASOPHILS ABSOLUTE COUNT (BEAKER) 0.05 K/ L 0.01-0.08 (test code = 417) IMMATURE GRANULOCYTES-RELATIVE 0 % 0-1 PERCENT (BEAKER) (test code = 2801) CT, CHEST, WITH IV CONTRAST- PE TEST [id number] 12:20:00Reason for exam:- >SHORTNESS OF BREATHx3 months; worse over last month; [place]?->No SedationFINAL REPORT [...] filling defect is identified. There is a right- sided Port-A-Cath. Visualized thyroid gland is unremarkable. No [...] surface. Indeterminate left adrenal 3.3 cm mass. Signed: Stefanie Royeport Verified Date/Time: 10/23/2019 12:20:34 Reading Location: [facility] C013X Ortho Consult Reading Room CT, ABDOMEN 2019-10-23 12:20:00FINAL REPORT CT of the chest, pulmonary [...] of the abdomen and pelvis is also o btained after intravenous contrast administration. This exam was [...] surface. Indeterminate left adrenal 3.3 cm mass. Signed: Stefanie Royeport Verified Date/Time: 10/23/2019 12:20:34 Reading Location: [address] Consult Reading Room URINALYSIS WITH MICROSCOPIC IF [id number] 12:10:00 Test Item Value Reference Range Interpretation Comments COLOR (BEAKER) (test code = 470) Yellow CLARITY (BEAKER) (test code = 469) Clear SPECIFIC GRAVITY UA (BEAKER) (test 1.015 1.005-1.030 code = 468) PH UA (BEAKER) (test code = 467) 6.0 5.0-9.0 PROTEIN UA (BEAKER) (test code = Negative Negative 464) GLUCOSE UA (BEAKER) (test code = Negative Negative 365) KETONES UA (BEAKER) (test code = Negative Negative 371) BILIRUBIN UA (BEAKER) (test code = Negative Negative 462) BLOOD UA (BEAKER) (test code = 461) Trace Negative A NITRITE UA (BEAKER) (test code = Negative Negative 465) LEUKOCYTE ESTERASE UA (BEAKER) Negative Negative (test code = 466) UROBILINOGEN UA (BEAKER) (test code 1.0 mg/dL 0.2-1.0 = 463) SOURCE(BEAKER) (test code = 2795) BASIC METABOLIC [id number] 11:56:00 Test Item Value Reference Range Interpretation Comments SODIUM (BEAKER) 141 meq/L 136-145 (test code = 381) POTASSIUM (BEAKER) 3.8 meq/L 3.5-5.1 Specimen slightly (test code = 379) hemolyzed CHLORIDE (BEAKER) 103 meq/L 98-107 (test code = 382) CO2 (BEAKER) (test 28 meq/L 22-29 code = 355) BLOOD UREA NITROGEN 16 mg/dL 7-21 (BEAKER) (test code = 354) CREATININE (BEAKER) 0.84 mg/dL 0.57-1.25 Specimen slightly (test code = 358) hemolyzed GLUCOSE RANDOM 78 mg/dL 70-105 (BEAKER) (test code = 652) CALCIUM (BEAKER) 8.2 mg/dL 8.4-10.2 L (test code = 697) EGFR (BEAKER) (test 114 mL/min/1.73 ESTIM ATED GFR IS code = 1092) sq m NOT ACCURATE CREATININE CLEARANCE IN PREDICTING GLOMERULAR FILTRATION RATE . ESTIMATED GFR I S NOT APPLICABLE FOR DIALYSIS PATIEN TS. LACTATE DEHYDROGENASE (LDH)2019-10-23 11:50:00 Test Item Value Reference Range Interpretation Comments LACTATE DEHYDROGENASE 233 U/L 125-220 H Specim en slightly (BEAKER) (test code = hemoly zed 635) B-TYPE NATRIURETIC FACTOR (BNP)2019-10-23 11:49:00 Test Item Value Reference Range Interpretation Comments B-TYPE NATRIURETIC PEPTIDE (BEAKER) 93 pg/mL 0-100 (test code = 700) [id number] 11:49:00 Test Item Value Reference Range Interpretation Comments PHOSPHORUS (BEAKER) 3.7 mg/dL 2.3-4.7 Specimen slightly (test code = 604) hemolyzed TROPONIN [id number] 11:49:00 Test Item Value Reference Range Interpretation Comments TROPONIN I (BEAKER) (test code = 0.01 ng/mL 0.00-0.03 397) Troponin I (TnI) levels must be interpreted [...] acute neurological disease, and persistent tachyarrhythmia.BLOOD GAS, [id number] 11:22:00 Test Item Value Reference Range Interpretation Comments PH VENOUS (BEAKER) (test code = 7.40 7.32-7.42 701) PCO2 VENOUS (BEAKER) (test code = 49 mmHg 41-51 755) PO2 VENOUS (BEAKER) (test code = 42 mmHg 25-40 H 702) O2 SATURATION VENOUS (BEAKER) 77.6 % 40.0-70.0 H (test code = 703) HCO3 VENOUS (BEAKER) (test code = 30 mmol/L 21-29 H 705) BASE EXCESS VENOUS (BEAKER) (test 3.9 mmol/L -2.0-3.0 H code = 704) PATIENT TEMPERATURE (BEAKER) (test 37.0 C code = 1818) FIO2 (BEAKER) (test code = 1819) 100.0 % POCT-GLUCOSE [id number] 11:13:00 Test Item Value Reference Range Interpretation Comments POC-GLUCOSE METER 69 mg/dL 70-110 L : TESTED A T [facility] 7200 (BEAKER) (test code = [place] BLDG A, 1538) [place] 7[address] 0: [employer] Chair/Techni patrick ID = [id number] for [facility], CHEST, 2 [id number] 14:00:00Reason for Exam:->SOB shortness of breathFINAL REPORT CHEST PA AND LATERAL COMPARISON STUDY: 07/15/2018 History provided: Shortness [...] the SVC. IMPRESSION: Right pleural effusion. Signed: Deven White MDReport Verified Date/Time: 07/16/2019 14:00:37 Reading Location: [address] Radiology Reading Room CT, CHEST, WITH IV [id number] 13:11:00Reason for Exam:->C18.9FINAL REPORT CT of the chest, abdomen and [...] colon, with localized colonic wall thickening. Normal appe ndix. Omental nodules are without significant interval change. [...] MDReport Verified Date/Time: 07/02/2019 13:11:30 Reading Location: [facility] C0X Ortho Consult Reading Room CT, [id number] 13:11:00Reason for Exam:->C18.9FINAL REPORT CT of the chest, abdomen and [...] colon, with localized colonic wall thickening. Normal appe ndix. Omental nodules are without significant interval change. [...] MDReport Verified Date/Time: 07/02/2019 13:11:30 Reading Location: [facility] C013X Ortho Consult Reading Room [id number] 07:46:00 Test Item Value Reference Range Interpretation Comments POC-CREATININE 0.7 mg/dL 0.6-1.3 TESTED AT [facility] 7200 ([facility]) (test RANDY D G A code = 1859) [facility] 7703 0 POC-EGFR 140 mL/min/1.73M2 ([facility]) (test code = 1860) CT, [id number] 09:11:00FINAL REPORT EXAM: CT Chest, Abdomen and [...] dominant lymph node mass is seen in th e abdomen, retroperitoneum or pelvis. Again noted is [...] unchanged. Left adrenal nodule is unchanged. Signed: Jermaine Menjivar MDReport Verified Date/Time: 04/17/2019 09:11:14 CT, CHEST, WITH IV [id number] 09:11:00FINAL REPORT EXAM: CT Chest, Abdomen and Pelvis WITH contrast INDICATION: Colon cancer C18.9 COMPARISON: 12/25/2018, 10/05/2018, 07/17/2018TECHNIQUE: Chest, abdomen and pelvis were scanned utilizing a multidetector helical scanner from the lung apex to the pubic symphysis after ad ministration of IV contrast. Coronal and sagittal reformations [...] but unchanged in size. No new liver m asses. 4.Stable appearing stent in the descending colon. 5.Faint area of heterogeneous hypodensity in the medial aspect of the spleen is unchanged. Left adrenal nodule is unchanged. Signed: Jermaine Menjivar MDReport Verified Date/Time: 04/17/2019 09:11:14 CT, CHEST, WITH IV [id number] 15:06:00FINAL REPORT CT CHEST, ABDOMEN, AND PELVIS [...] as reasonably achievable. COMPLICATIONS: None FINDINGS:Lines/tubes: Stable ap pearing right chest port, the tip near the [...] attention on subsequent follow-ups. Signed: Og Soriano MDRepst. [facility] Verified Date/Time: 12/25/2018 15:06:57 CT, ABDOMEN, WITHOUT / WITH IV [id number] 15:06:[address] CHEST, ABDOMEN, AND PELVIS [...] as reasonably achievable. COMPLICATIONS: None FINDINGS:Lines/tubes: Stable ap pearing right chest port, the tip near the [...] Og Soriano MDReport Verified Date/Time: 12/25/2018 15:06:57 CT, PELVIS, WITH IV [id number] 15:06:00FINAL REPORT CT CHEST, ABDOMEN, AND PELVIS [...] as reasonably achievable. COMPLICATIONS: None FINDINGS:Lines/tubes: Stable ap pearing right chest port, the tip near the [...] Og Soriano MDReport Verified Date/Time: 12/25/2018 15:06:57 [id number] 08:55:00 Test Item Value Reference Range Interpretation Comments POC-CREATININE 0.7 mg/dL 0.6-1.3 TESTED AT [facility] 7200 ([facility]) (test RANDY [facility] G A code = 1859) [facility] 7703 0 POC-EGFR 140 mL/min/1.73M2 ([facility]) (test code = 1860) TISSUE [id number] 13:08:00Surgical Pathology Report Case: [id number] Authorizing Provider: Jessi Turcios MD Collected: 07/17/2018 2583 Ordering Location: [address] Received: 07/17/2018 1607 Service Pathologist: Allen Velazquez MD Specimen: 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 It has not been cleared or approved by the U.S. Food and Drug Administration. The FDA has determined that such clearance or approval is not necessary. The test is used fo r clinical purposes. It should not be regarded as investigational or for research. This laboratory is certified under the Clinical Laboratory Improvement Amendments of 1988 (CLIA-88) as qualified to perform high complexity clinical laboratory testing.[id number] x 4Addendum electronically signed by Star Trejo MD on 07/20/2018 at 10:07 AMPART A OMENTAL BIOPSY:MODERATELY DIFFERENTIATED ADENOCARCINOMA.SEE DIAGNOSTIC COMMENT. Signing Pathologist Direct Phone Line: [phone] signed by Allen Velazquez MD on 07/19/2018 [...] and imaging studies is required for complete interpretation.[id number], [id number], [id number] givenOmentum The specimen is received in a formalin-filled container and labeledwith the patient's information labeled "omentum" and consists of four off white core biopsies ranging from 0.2 to 0.4 cm, submitted entirely A1.CG/pl PERFORMED.The following special studies were performed on this case and the interpretation is incorporated in the diagnostic report above:BLOCK A1- CK7,CK20, CDX2, TTF1, PSA, BT64Dgy immunohistochemistry test was developed and its performance characteristics determined by [facility] Pathology [facility]. It has not been cleared or approved by the U.S. Food and Drug Administration. The FDA has determined that such clearance or approval is not necessary. The test is used for clinical purposes. It should not be regarded as investigational or for research. This laboratory is certified under the Clinical Laboratory Improvement Amendments of 1988 (CLIA- 88) as qualified to perform high complexity clinical laboratory testing.POCT- GLUCOSE [id number] 12:55:00 Test Item Value Reference Range Interpretation Comments POC-GLUCOSE METER 115 mg/dL 70-110 H TESTED AT [facility] 67 ([facility]) (test code = [facility] 1538) [address] POCT-GLUCOSE [id number] 08:52:00 Test Item Value Reference Range Interpretation Comments POC-GLUCOSE METER 137 mg/dL 70-110 H TESTED AT [place] [address] ([facility]) (test code = [facility] 1538) [address] CARCINOEMBRYONIC ANTIGEN (CEA)2018-09-13 07:11:00 Test Item Value Reference Range Interpretation Comments CARCINOEMBRYONIC ANTIGEN 1302.5 ng/mL 0.0-5.0 H ([facility]) (test code = 685) [id number] 07:04:00 Test Item Value Reference Range Interpretation Comments MAGNESIUM (BEAKER) (test code = 1.7 mg/dL 1.6-2.6 627) BASIC METABOLIC [id number] 07:04:00 Test Item Value Reference Range Interpretation Comments SODIUM (BEAKER) 139 meq/L 136-145 (test code = 381) POTASSIUM (BEAKER) 3.5 meq/L 3.5-5.1 (test code = 379) CHLORIDE (BEAKER) 105 meq/L 98-107 (test code = 382) CO2 (BEAKER) (test 26 meq/L 22-29 code = 355) BLOOD UREA NITROGEN 10 mg/dL 7-21 (BEAKER) (test code = 354) CREATININE (BEAKER) 0.77 mg/dL 0.57-1.25 (test code = 358) GLUCOSE RANDOM 135 mg/dL 70-105 H (BEAKER) (test code = 652) CALCIUM (BEAKER) 8.9 mg/dL 8.4-10.2 (test code = 697) EGFR (BEAKER) (test 126 mL/min/1.73 ESTIM ATED GFR IS code = 1092) sq m NOT ACCURATE CREATININE CLEARANCE IN PREDICTING GLOMERULAR FILTRATION RATE . ESTIMATED GFR I S NOT APPLICABLE FOR DIALYSIS PATIEN TS. HEPATIC FUNCTION [id number] 07:04:00 Test Item Value Reference Range Interpretation Comments TOTAL PROTEIN (BEAKER) (test code = 7.4 gm/dL 6.0-8.3 770) ALBUMIN (BEAKER) (test code = 1145) 3.9 g/dL 3.5-5.0 BILIRUBIN TOTAL (BEAKER) (test code 0.6 mg/dL 0.2-1.2 = 377) BILIRUBIN DIRECT (BEAKER) (test 0.3 mg/dL 0.1-0.5 code = 706) ALKALINE PHOSPHATASE (BEAKER) (test 63 U/L 40-150 code = 346) AST (SGOT) (BEAKER) (test code = 23 U/L 5-34 353) ALT (SGPT) (BEAKER) (test code = 37 U/L 6-55 347) CBC W/PLT COUNT & AUTO [id number] 06:29:00 Test Item Value Reference Range Interpretation Comments WHITE BLOOD CELL COUNT (BEAKER) 9.8 K/ L 3.5-10.5 (test code = 775) RED BLOOD CELL COUNT (BEAKER) 4.61 M/ L 4.63-6.08 L (test code = 761) HEMOGLOBIN (BEAKER) (test code = 12.9 GM/DL 13.7-17.5 L 410) HEMATOCRIT (BEAKER) (test code = 41.0 % 40.1-51.0 411) MEAN CORPUSCULAR VOLUME (BEAKER) 88.9 fL 79.0-92.2 (test code = 753) MEAN CORPUSCULAR HEMOGLOBIN 28.0 pg 25.7-32.2 (BEAKER) (test code = 751) MEAN CORPUSCULAR HEMOGLOBIN CONC 31.5 GM/DL 32.3-36.5 L (BEAKER) (test code = 752) RED CELL DISTRIBUTION WIDTH 13.0 % 11.6-14.4 (BEAKER) (test code = 412) PLATELET COUNT (BEAKER) (test 285 K/CU MM 150-450 code = 756) MEAN PLATELET VOLUME (BEAKER) 11.3 fL 9.4-12.4 (test code = 754) NUCLEATED RED BLOOD CELLS 0 /100 WBC 0-0 (BEAKER) (test code = 413) NEUTROPHILS RELATIVE PERCENT 69 % (BEAKER) (test code = 429) LYMPHOCYTES RELATIVE PERCENT 18 % (BEAKER) (test code = 430) MONOCYTES RELATIVE PERCENT 11 % (BEAKER) (test code = 431) EOSINOPHILS RELATIVE PERCENT 2 % (BEAKER) (test code = 432) BASOPHILS RELATIVE PERCENT 1 % (BEAKER) (test code = 437) NEUTROPHILS ABSOLUTE COUNT 6.71 K/ L 1.78-5.38 H (BEAKER) (test code = 670) LYMPHOCYTES ABSOLUTE COUNT 1.72 K/ L 1.32-3.57 (BEAKER) (test code = 414) MONOCYTES ABSOLUTE COUNT (BEAKER) 1.10 K/ L 0.30-0.82 H (test code = 415) EOSINOPHILS ABSOLUTE COUNT 0.17 K/ L 0.04-0.54 (BEAKER) (test code = 416) BASOPHILS ABSOLUTE COUNT (BEAKER) 0.06 K/ L 0.01-0.08 (test code = 417) IMMATURE GRANULOCYTES-RELATIVE 0 % 0-1 PERCENT (BEAKER) (test code = 2801) POCT-GLUCOSE [id number] 01:02:00 Test Item Value Reference Range Interpretation Comments POC-GLUCOSE METER 130 mg/dL 70-110 H TEST[facility] [place] [address] [facility] (test code = [place] 1538) [address] POCT-GLUCOSE [id number] 17:48:00 Test Item Value Reference Range Interpretation Comments POC-GLUCOSE METER 119 mg/dL 70-110 H TESTED AT [place] [address] ([facility]) (test code = [place] 1538) [address] POCT-GLUCOSE [id number] 12:27:00 Test Item Value Reference Range Interpretation Comments POC-GLUCOSE METER 154 mg/dL 70-110 H TESTED AT [place] [address] ([facility]) (test code = [place] 1538) [address] POCT-GLUCOSE [id number] 07:44:00 Test Item Value Reference Range Interpretation Comments POC-GLUCOSE METER 243 mg/dL 70-110 H TESTED AT [facility] 6720 (BEAKER) (test code = [place] 1538) [address] [id number] 06:49:00 Test Item Value Reference Range Interpretation Comments MAGNESIUM (BEAKER) (test code = 1.8 mg/dL 1.6-2.6 627) BASIC METABOLIC [id number] 06:49:00 Test Item Value Reference Range Interpretation Comments SODIUM (BEAKER) 138 meq/L 136-145 (test code = 381) POTASSIUM (BEAKER) 3.3 meq/L 3.5-5.1 L (test code = 379) CHLORIDE (BEAKER) 103 meq/L 98-107 (test code = 382) CO2 (BEAKER) (test 27 meq/L 22-29 code = 355) BLOOD UREA NITROGEN 18 mg/dL 7-21 (BEAKER) (test code = 354) CREATININE (BEAKER) 1.08 mg/dL 0.57-1.25 (test code = 358) GLUCOSE RANDOM 139 mg/dL 70-105 H (BEAKER) (test code = 652) CALCIUM (BEAKER) 8.6 mg/dL 8.4-10.2 (test code = 697) EGFR (BEAKER) (test 85 mL/min/1.73 ESTIMA EDSON GFR IS code = 1092) sq m NOT ACCURATE CREATININE CLEARANCE IN PREDICTING GLOMERULAR FILTRATION RATE . ESTIMATED GFR I S NOT APPLICABLE FOR DIALYSIS PATIEN TS. CBC W/PLT COUNT & AUTO [id number] 06:29:00 Test Item Value Reference Range Interpretation Comments WHITE BLOOD CELL COUNT (BEAKER) 9.6 K/ L 3.5-10.5 (test code = 775) RED BLOOD CELL COUNT (BEAKER) 4.04 M/ L 4.63-6.08 L (test code = 761) HEMOGLOBIN (BEAKER) (test code = 11.5 GM/DL 13.7-17.5 L 410) HEMATOCRIT (BEAKER) (test code = 36.5 % 40.1-51.0 L 411) MEAN CORPUSCULAR VOLUME (BEAKER) 90.3 fL 79.0-92.2 (test code = 753) MEAN CORPUSCULAR HEMOGLOBIN 28.5 pg 25.7-32.2 (BEAKER) (test code = 751) MEAN CORPUSCULAR HEMOGLOBIN CONC 31.5 GM/DL 32.3-36.5 L (BEAKER) (test code = 752) RED CELL DISTRIBUTION WIDTH 13.1 % 11.6-14.4 (BEAKER) (test code = 412) PLATELET COUNT (BEAKER) (test 238 K/CU MM 150-450 code = 756) MEAN PLATELET VOLUME (BEAKER) 11.3 fL 9.4-12.4 (test code = 754) NUCLEATED RED BLOOD CELLS 0 /100 WBC 0-0 (BEAKER) (test code = 413) NEUTROPHILS RELATIVE PERCENT 71 % (BEAKER) (test code = 429) LYMPHOCYTES RELATIVE PERCENT 15 % (BEAKER) (test code = 430) MONOCYTES RELATIVE PERCENT 12 % (BEAKER) (test code = 431) EOSINOPHILS RELATIVE PERCENT 2 % (BEAKER) (test code = 432) BASOPHILS RELATIVE PERCENT 1 % (BEAKER) (test code = 437) NEUTROPHILS ABSOLUTE COUNT 6.74 K/ L 1.78-5.38 H (BEAKER) (test code = 670) LYMPHOCYTES ABSOLUTE COUNT 1.42 K/ L 1.32-3.57 (BEAKER) (test code = 414) MONOCYTES ABSOLUTE COUNT (BEAKER) 1.17 K/ L 0.30-0.82 H (test code = 415) EOSINOPHILS ABSOLUTE COUNT 0.14 K/ L 0.04-0.54 (BEAKER) (test code = 416) BASOPHILS ABSOLUTE COUNT (BEAKER) 0.06 K/ L 0.01-0.08 (test code = 417) IMMATURE GRANULOCYTES-RELATIVE 0 % 0-1 PERCENT (BEAKER) (test code = 2801) POCT-GLUCOSE [id number] 00:36:00 Test Item Value Reference Range Interpretation Comments POC-GLUCOSE METER 141 mg/dL 70-110 H TESTED AT [facility] 6720 [facility] (test code = [place] 1538) [address] [place], [employer]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 Cordova, as an intra- procedure imaging consultation was not requested. Reported fluoroscopy time: 525.3 seconds. Signed: Latricia Gasca Verified Date/Time: 09/11/2018 19:40:28 Reading Location: [facility] Radiology Reading Room [facility] signed by: LATRICIA GASCA M.D. on 09/11/2018 07:40 PMPOCT-GLUCOSE [id number] 18:32:00 Test Item Value Reference Range Interpretation Comments POC-GLUCOSE METER 116 mg/dL 70-110 H TESTED AT [facility] 6720 (BEAKER) (test code = [facility] 1538) [address] POCT-GLUCOSE [id number] 12:08:00 Test Item Value Reference Range Interpretation Comments POC-GLUCOSE METER 156 mg/dL 70-110 H TESTED AT [facility] 6720 ([facility] (test code = [facility] 1538) [address] [id number] 09:06:00 Test Item Value Reference Range Interpretation Comments MAGNESIUM (BEAKER) (test code = 1.9 mg/dL 1.6-2.6 627) [id number] 09:06:00 Test Item Value Reference Range Interpretation Comments PHOSPHORUS (BEAKER) (test code = 3.8 mg/dL 2.3-4.7 604) BASIC METABOLIC [id number] 06:49:00 Test Item Value Reference Range Interpretation Comments SODIUM (BEAKER) 139 meq/L 136-145 (test code = 381) POTASSIUM (BEAKER) 3.0 meq/L 3.5-5.1 L (test code = 379) CHLORIDE (BEAKER) 100 meq/L 98-107 (test code = 382) CO2 (BEAKER) (test 28 meq/L 22-29 code = 355) BLOOD UREA NITROGEN 13 mg/dL 7-21 (BEAKER) (test code = 354) CREATININE (BEAKER) 0.83 mg/dL 0.57-1.25 (test code = 358) GLUCOSE RANDOM 135 mg/dL 70-105 H (BEAKER) (test code = 652) CALCIUM (BEAKER) 9.2 mg/dL 8.4-10.2 (test code = 697) EGFR (BEAKER) (test 116 mL/min/1.73 ESTIM ATED GFR IS code = 1092) sq m NOT ACCURATE CREATININE CLEARANCE IN PREDICTING GLOMERULAR FILTRATION RATE . ESTIMATED GFR I S NOT APPLICABLE FOR DIALYSIS PATIEN TS. POCT-GLUCOSE [id number] 06:36:00 Test Item Value Reference Range Interpretation Comments POC-GLUCOSE METER 161 mg/dL 70-110 H TESTED AT [facility] 6720 ([facility]) (test code = [place] 1538) [address] CBC W/PLT COUNT & AUTO [id number] 06:28:00 Test Item Value Reference Range Interpretation Comments WHITE BLOOD CELL COUNT (BEAKER) 10.7 K/ L 3.5-10.5 H (test code = 775) RED BLOOD CELL COUNT (BEAKER) 4.72 M/ L 4.63-6.08 (test code = 761) HEMOGLOBIN (BEAKER) (test code = 13.7 GM/DL 13.7-17.5 410) HEMATOCRIT (BEAKER) (test code = 42.6 % 40.1-51.0 411) MEAN CORPUSCULAR VOLUME (BEAKER) 90.3 fL 79.0-92.2 (test code = 753) MEAN CORPUSCULAR HEMOGLOBIN 29.0 pg 25.7-32.2 (BEAKER) (test code = 751) MEAN CORPUSCULAR HEMOGLOBIN CONC 32.2 GM/DL 32.3-36.5 L (BEAKER) (test code = 752) RED CELL DISTRIBUTION WIDTH 12.9 % 11.6-14.4 (BEAKER) (test code = 412) PLATELET COUNT (BEAKER) (test 292 K/CU MM 150-450 code = 756) MEAN PLATELET VOLUME (BEAKER) 11.3 fL 9.4-12.4 (test code = 754) NUCLEATED RED BLOOD CELLS 0 /100 WBC 0-0 (BEAKER) (test code = 413) NEUTROPHILS RELATIVE PERCENT 75 % (BEAKER) (test code = 429) LYMPHOCYTES RELATIVE PERCENT 13 % (BEAKER) (test code = 430) MONOCYTES RELATIVE PERCENT 11 % (BEAKER) (test code = 431) EOSINOPHILS RELATIVE PERCENT 0 % (BEAKER) (test code = 432) BASOPHILS RELATIVE PERCENT 0 % (BEAKER) (test code = 437) NEUTROPHILS ABSOLUTE COUNT 7.97 K/ L 1.78-5.38 H (BEAKER) (test code = 670) LYMPHOCYTES ABSOLUTE COUNT 1.41 K/ L 1.32-3.57 (BEAKER) (test code = 414) MONOCYTES ABSOLUTE COUNT (BEAKER) 1.18 K/ L 0.30-0.82 H (test code = 415) EOSINOPHILS ABSOLUTE COUNT 0.04 K/ L 0.04-0.54 (BEAKER) (test code = 416) BASOPHILS ABSOLUTE COUNT (BEAKER) 0.03 K/ L 0.01-0.08 (test code = 417) IMMATURE GRANULOCYTES-RELATIVE 1 % 0-1 PERCENT (BEAKER) (test code = 2801) POCT-GLUCOSE [id number] 01:34:00 Test Item Value Reference Range Interpretation Comments POC-GLUCOSE METER 135 mg/dL 70-110 H TESTED AT [place] [address] (BEAKER) (test code = [place] 1538) [address] POCT-GLUCOSE [id number] 09:00:00 Test Item Value Reference Range Interpretation Comments POC-GLUCOSE METER 195 mg/dL 70-110 H TESTED AT [place] [address] (BEAKER) [facility] 1538) [address] BLOOD [id number] 06:00:00 Test Item Value Reference Range Interpretation Comments CULTURE (BEAKER) (test No growth in 5 days code = 1095) BLOOD [id number] 06:00:00 Test Item Value Reference Range Interpretation Comments CULTURE (BEAKER) (test No growth in 5 days code = 1095) BASIC METABOLIC [id number] 05:43:00 Test Item Value Reference Range Interpretation Comments SODIUM (BEAKER) 141 meq/L 136-145 (test code = 381) POTASSIUM (BEAKER) 3.6 meq/L 3.5-5.1 (test code = 379) CHLORIDE (BEAKER) 106 meq/L 98-107 (test code = 382) CO2 (BEAKER) (test 25 meq/L 22-29 code = 355) BLOOD UREA NITROGEN 9 mg/dL 7-21 (BEAKER) (test code = 354) CREATININE (BEAKER) 0.80 mg/dL 0.57-1.25 (test code = 358) GLUCOSE RANDOM 119 mg/dL 70-105 H (BEAKER) (test code = 652) CALCIUM (BEAKER) 8.9 mg/dL 8.4-10.2 (test code = 697) EGFR (BEAKER) (test 121 mL/min/1.73 ESTIM ATED GFR IS code = 1092) sq m NOT ACCURATE CREATININE CLEARANCE IN PREDICTING GLOMERULAR FILTRATION RATE . ESTIMATED GFR I S NOT APPLICABLE FOR DIALYSIS PATIEN TS. CBC W/PLT COUNT & AUTO [id number] 05:01:00 Test Item Value Reference Range Interpretation Comments WHITE BLOOD CELL COUNT (BEAKER) 7.2 K/ L 3.5-10.5 (test code = 775) RED BLOOD CELL COUNT (BEAKER) 4.62 M/ L 4.63-6.08 L (test code = 761) HEMOGLOBIN (BEAKER) (test code = 13.4 GM/DL 13.7-17.5 L 410) HEMATOCRIT (BEAKER) (test code = 43.7 % 40.1-51.0 411) MEAN CORPUSCULAR VOLUME (BEAKER) 94.6 fL 79.0-92.2 H (test code = 753) MEAN CORPUSCULAR HEMOGLOBIN 29.0 pg 25.7-32.2 (BEAKER) (test code = 751) MEAN CORPUSCULAR HEMOGLOBIN CONC 30.7 GM/DL 32.3-36.5 L (BEAKER) (test code = 752) RED CELL DISTRIBUTION WIDTH 13.4 % 11.6-14.4 (BEAKER) (test code = 412) PLATELET COUNT (BEAKER) (test 224 K/CU MM 150-450 code = 756) MEAN PLATELET VOLUME (BEAKER) 11.5 fL 9.4-12.4 (test code = 754) NUCLEATED RED BLOOD CELLS 0 /100 WBC 0-0 (BEAKER) (test code = 413) NEUTROPHILS RELATIVE PERCENT 66 % (BEAKER) (test code = 429) LYMPHOCYTES RELATIVE PERCENT 19 % (BEAKER) (test code = 430) MONOCYTES RELATIVE PERCENT 10 % (BEAKER) (test code = 431) EOSINOPHILS RELATIVE PERCENT 4 % (BEAKER) (test code = 432) BASOPHILS RELATIVE PERCENT 1 % (BEAKER) (test code = 437) NEUTROPHILS ABSOLUTE COUNT 4.80 K/ L 1.78-5.38 (BEAKER) (test code = 670) LYMPHOCYTES ABSOLUTE COUNT 1.39 K/ L 1.32-3.57 (BEAKER) (test code = 414) MONOCYTES ABSOLUTE COUNT (BEAKER) 0.72 K/ L 0.30-0.82 (test code = 415) EOSINOPHILS ABSOLUTE COUNT 0.25 K/ L 0.04-0.54 (BEAKER) (test code = 416) BASOPHILS ABSOLUTE COUNT (BEAKER) 0.05 K/ L 0.01-0.08 (test code = 417) IMMATURE GRANULOCYTES-RELATIVE 0 % 0-1 PERCENT (BEAKER) (test code = 2801) POCT-GLUCOSE [id number] 22:22:00 Test Item Value Reference Range Interpretation Comments POC-GLUCOSE METER 171 mg/dL 70-110 H TESTED AT [facility] 6720 ([facility]) (test code = NAMITA Brantley [facility] 1538) [address] ANG, TUNNEL CATH CENTRAL INS W/PORT [id number] 18:25:00Reason for exam:- >need for chemotherapy.FINAL REPORT Right internal jugular chest port insertion History: Patient requires access for chemotherapy administration. Modality: Sonography andfluoroscopy. Sedation: Versed 1.5 mg and fentanyl 50 mcg given intravenously for conscious sedation. Vital signs were monitored throughout the procedure by a nurse, and remained stable. Physician intra-service time was 30 minutes. Technical Writer And Editor: Singh Perez MD Senior Net Programmer: Noé. Approach: Right internal jugular vein Estimated blood loss: < 5 cc. Specimen:None. Fluoroscopy Time: 0.1 min.Reference Air Kerma (Ka, r): 5.4 mGy. Technique: [...] needle into the right atrium. A 4 Barbadian micropuncture sheath was placed. A subcutaneous tunnel [...] closed with 3-0 running subcuticular Monocryl and Steri- Strips. The small jugular incision site was closed [...] is ready for immediate use. Signed: Singh Perez MDReport Verified Date/Time: 07/19/2018 18:25:29 Reading Location: [address] Body Reading Room POCT-GLUCOSE [id number] 16:53:00 Test Item Value Reference Range Interpretation Comments POC-GLUCOSE METER 124 mg/dL 70-110 H TESTED AT [facility] 67 ([facility]) (test code = NAMITA Brantley [facility] 1538) [address] TISSUE [id number] 16:29:00Surgical Pathology Report Case: [id number] Authorizing Provider: Julius Sands MD Collected: 07/18/2018 1502 Ordering Location: [address] Received: 07/19/2018 0757 Service Pathologist: Charo Brar MD Specimen: Large Intestine, Colon - Left/Descending, mass LEFT/DESCENDING COLON, BIOPSY: - INVASIVE MODERATELY DIFFERENTIATED ADENOCARCINOMA, SITUATED PREDOMINANTLY BENEATH THE MUSCULARIS MUCOSA, WITH FOCAL NECROSISMO/pl Signing Pathologist Direct Phone Line: [phone] signed by Charo Brar MD on 07/19/2018 at 4:29 [id number] [id number] of colon, colonic mass Left descending colon mass biopsyThe specimen is received in a formalin-filled con tainer labeled with the patient's information and labeled [...] apoptosis. Other significant features are not noted. POCT-GLUCOSE [id number] 12:32:00 Test Item Value Reference Range Interpretation Comments POC-GLUCOSE METER 116 mg/dL 70-110 H TESTED AT [place] [address] ([facility]) (test code = [facility] 1538) [address] POCT-GLUCOSE [id number] 09:22:00 Test Item Value Reference Range Interpretation Comments POC-GLUCOSE METER 130 mg/dL 70-110 H TESTED AT [place] [address] ([facility]) (test code = [facility] 1538) [address] BASIC METABOLIC [id number] 06:03:00 Test Item Value Reference Range Interpretation Comments SODIUM (BEAKER) 138 meq/L 136-145 (test code = 381) POTASSIUM (BEAKER) 3.3 meq/L 3.5-5.1 L (test code = 379) CHLORIDE (BEAKER) 104 meq/L 98-107 (test code = 382) CO2 (BEAKER) (test 23 meq/L 22-29 code = 355) BLOOD UREA NITROGEN 6 mg/dL 7-21 L ([facility]) (test code = 354) CREATININE (BEAKER) 0.76 mg/dL 0.57-1.25 (test code = 358) GLUCOSE RANDOM 122 mg/dL 70-105 H ([facility]) (test code = 652) CALCIUM (BEAKER) 9.2 mg/dL 8.4-10.2 (test code = 697) EGFR (BEAKER) (test 128 mL/min/1.73 ESTIM ATED GFR IS code = 1092) sq m NOT ACCURATE CREATININE CLEARANCE IN PREDICTING GLOMERULAR FILTRATION RATE . ESTIMATED GFR I S NOT APPLICABLE FOR DIALYSIS PATIEN TS. PROTHROMBIN [id number] 05:34:00 Test Item Value Reference Range Interpretation Comments PROTIME (BEAKER) (test code = 14.2 seconds 11.7-14.7 759) INR (BEAKER) (test code = 370) 1.1 <=5.9 RECOMMENDED COUMADIN/WARFARIN INR THERAPY RANGESSTANDARD DOSE: 2.0 - 3.0 Includes: PROPHYLAXIS forvenous thrombosis, systemic embolization; TREATMENT for venous thrombosis and/or pulmonary embolus.HIGH RISK: Target INR is 2.5-3.5 for patients with mechanical heart valves.CBC W/PLT COUNT & AUTO DIFFERENTIAL 2018-07-19 05:29:00 Test Item Value Reference Range Interpretation Comments WHITE BLOOD CELL COUNT (BEAKER) 9.1 K/ L 3.5-10.5 (test code = 775) RED BLOOD CELL COUNT (BEAKER) 4.61 M/ L 4.63-6.08 L (test code = 761) HEMOGLOBIN (BEAKER) (test code = 13.5 GM/DL 13.7-17.5 L 410) HEMATOCRIT (BEAKER) (test code = 42.6 % 40.1-51.0 411) MEAN CORPUSCULAR VOLUME (BEAKER) 92.4 fL 79.0-92.2 H (test code = 753) MEAN CORPUSCULAR HEMOGLOBIN 29.3 pg 25.7-32.2 (BEAKER) (test code = 751) MEAN CORPUSCULAR HEMOGLOBIN CONC 31.7 GM/DL 32.3-36.5 L (BEAKER) (test code = 752) RED CELL DISTRIBUTION WIDTH 13.3 % 11.6-14.4 (BEAKER) (test code = 412) PLATELET COUNT (BEAKER) (test 235 K/CU MM 150-450 code = 756) MEAN PLATELET VOLUME (BEAKER) 11.5 fL 9.4-12.4 (test code = 754) NUCLEATED RED BLOOD CELLS 0 /100 WBC 0-0 (BEAKER) (test code = 413) NEUTROPHILS RELATIVE PERCENT 71 % (BEAKER) (test code = 429) LYMPHOCYTES RELATIVE PERCENT 14 % (BEAKER) (test code = 430) MONOCYTES RELATIVE PERCENT 11 % (BEAKER) (test code = 431) EOSINOPHILS RELATIVE PERCENT 2 % (BEAKER) (test code = 432) BASOPHILS RELATIVE PERCENT 1 % (BEAKER) (test code = 437) NEUTROPHILS ABSOLUTE COUNT 6.48 K/ L 1.78-5.38 H (BEAKER) (test code = 670) LYMPHOCYTES ABSOLUTE COUNT 1.31 K/ L 1.32-3.57 L (BEAKER) (test code = 414) MONOCYTES ABSOLUTE COUNT (BEAKER) 0.98 K/ L 0.30-0.82 H (test code = 415) EOSINOPHILS ABSOLUTE COUNT 0.20 K/ L 0.04-0.54 (BEAKER) (test code = 416) BASOPHILS ABSOLUTE COUNT (BEAKER) 0.05 K/ L 0.01-0.08 (test code = 417) IMMATURE GRANULOCYTES-RELATIVE 1 % 0-1 PERCENT (BEAKER) (test code = 2801) POCT-GLUCOSE [id number] 23:21:00 Test Item Value Reference Range Interpretation Comments POC-GLUCOSE METER 127 mg/dL 70-110 H TESTED AT [place] [address] ([facility]) (test code = [facility] 1538) [address] POCT-GLUCOSE [id number] 17:29:00 Test Item Value Reference Range Interpretation Comments POC-GLUCOSE METER 116 mg/dL 70-110 H TESTED AT [place] [address] ([facility]) (test code = [facility] 1538) [address] POCT-GLUCOSE [id number] 15:41:00 Test Item Value Reference Range Interpretation Comments POC-GLUCOSE METER 122 mg/dL 70-110 H TESTED AT [place] [address] ([facility]) (test code = [facility] 1538) [address] [id number] 15:40:00Medical Cytology Report Case: [id number] Authorizing Provider: Jessi Turcios MD Collected: 07/17/2018 1435 Ordering Location: [address] Received: 07/18/2018 0837 Service Pathologist: Alvin Arroyo MD Specimen: Peritoneal Fluid PERITONEAL FLUID (CYTOSPINS): - SUSPICIOUS FOR MALIGNANCY Signing Pathologist Direct Phone Line: [phone] signed by Alvin Arroyo MD on 07/18/2018 at 3:40 PMThere are a few atypical clusters that are suspicious for malignancy in a background of reactive mesothelial cells and chronic inflammation.[id number]; colon mass and omental nodules presents for CT-guided core biopsy of omentalnodulesPERITONEAL FLUIDPrepared 4 cytospins from 4 ml yellow blood-tinged fluidCollected: [id number]: [id number] [facility], Department of Pathology, [address] [place] [address], [facility], [facility], [address] [place] [address], [facility]zJer[facility], Department of Pathology, [address] [place] [address], LXLS-GLUCOSE [id number] 11:53:00 Test Item Value Reference Range Interpretation Comments POC-GLUCOSE METER 111 mg/dL 70-110 H TESTED AT [place] [address] (BEAKER) (test code = [place] 043818) [address] POCT-GLUCOSE [id number] 06:48:00 Test Item Value Reference Range Interpretation Comments POC-GLUCOSE METER 124 mg/dL 70-110 H TESTED AT [place] [address] (BEAKER) (test code = [facility] 1538) [address] POCT-GLUCOSE [id number] 23:34:00 Test Item Value Reference Range Interpretation Comments POC-GLUCOSE METER 133 mg/dL 70-110 H TESTED AT [place] [address] (BEAKER) (test code = [facility] 1538) [address] BODY FLUID CELL COUNT WITH [id number] 18:38:00 Test Item Value Reference Range Interpretation Comments APPEARANCE FLUID (BEAKER) Slightly Bloody Clear A (test code = 510) COLOR FLUID (BEAKER) (test Yarelis Colorless, Straw A code = 511) RBC FLUID (BEAKER) (test 9500 /cu mm <=1 H code = 513) ADJUSTED WBC FLUID (BEAKER) 1043 /cu mm <=5 H (test code = 1691) LINING CELLS (BEAKER) (test 42 /cu mm <=1 H code = 1590) NEUTROPHILS FLUID (BEAKER) 17 % (test code = 1656) LYMPHS FLUID (BEAKER) (test 28 % code = 488) MONO/MACROPHAGE FLUID 55 % (BEAKER) (test code = 489) EOSINOPHILS FLUID (BEAKER) 0 % (test code = 491) BASO FLUID (BEAKER) (test 0 % code = 492) CONTAINER BODY FLUID EDTA Tube (BEAKER) (test code = 2873) POCT-GLUCOSE [id number] 17:54:00 Test Item Value Reference Range Interpretation Comments POC-GLUCOSE METER 145 mg/dL 70-110 H TESTED AT [facility] 6720 (BEAKER) (test code = NAMITA Brantley [facility] 1538) [address] CT, BIOPSY, [id number] 16:57:00Reason for exam:->Need biopsy of omentum for [...] monitored under the direction of the undersigned radi ologist. The patient's vital signs were monitored throughout [...] nodules. Signed: Stephanie Duffy MDReport Verified Date/Time: 07/17/2018 16:57:37 Reading Location: [facility] C013Y CT Body Reading Room ALBUMIN, BODY [id number] 16:12:00 Test Item Value Reference Range Interpretation Comments ALBUMIN FLUID (BEAKER) (test code = 2.9 gm/dL 501) Reference Range: No Normals Assay performance has not been validated for this type of specimen.PROTEIN, BODY [id number] 16:12:00 Test Item Value Reference Range Interpretation Comments PROTEIN FLUID (BEAKER) (test code = 5.0 g/dL 579) Absence of reference range indicates that normals have not been defined.Assay performance has not been validated for this type of specimen.PT/[id number] 13:18:00 Test Item Value Reference Range Interpretation Comments PROTIME (BEAKER) (test code = 14.6 seconds 11.7-14.7 759) INR (BEAKER) (test code = 370) 1.1 <=5.9 PARTIAL THROMBOPLASTIN TIME 27.7 seconds 22.5-36.0 (BEAKER) (test code = 760) RECOMMENDED COUMADIN/WARFARIN INR THERAPY RANGESSTANDARD DOSE: 2.0 - 3.0 Includes: PROPHYLAXIS forvenous thrombosis, systemic embolization; TREATMENT for venous thrombosis and/or pulmonary embolus.HIGH RISK: Target INR is 2.5-3.5 for patients with mechanical heart valves.CBC W/PLT COUNT & AUTO DIFFERENTIAL 2018-07-17 13:08:00 Test Item Value Reference Range Interpretation Comments WHITE BLOOD CELL COUNT (BEAKER) 10.4 K/ L 3.5-10.5 (test code = 775) RED BLOOD CELL COUNT (BEAKER) 4.53 M/ L 4.63-6.08 L (test code = 761) HEMOGLOBIN (BEAKER) (test code = 13.1 GM/DL 13.7-17.5 L 410) HEMATOCRIT (BEAKER) (test code = 43.3 % 40.1-51.0 411) MEAN CORPUSCULAR VOLUME (BEAKER) 95.6 fL 79.0-92.2 H (test code = 753) MEAN CORPUSCULAR HEMOGLOBIN 28.9 pg 25.7-32.2 (BEAKER) (test code = 751) MEAN CORPUSCULAR HEMOGLOBIN CONC 30.3 GM/DL 32.3-36.5 L (BEAKER) (test code = 752) RED CELL DISTRIBUTION WIDTH 13.5 % 11.6-14.4 (BEAKER) (test code = 412) PLATELET COUNT (BEAKER) (test 236 K/CU MM 150-450 code = 756) MEAN PLATELET VOLUME (BEAKER) 11.4 fL 9.4-12.4 (test code = 754) NUCLEATED RED BLOOD CELLS 0 /100 WBC 0-0 (BEAKER) (test code = 413) NEUTROPHILS RELATIVE PERCENT 73 % (BEAKER) (test code = 429) LYMPHOCYTES RELATIVE PERCENT 15 % (BEAKER) (test code = 430) MONOCYTES RELATIVE PERCENT 10 % (BEAKER) (test code = 431) EOSINOPHILS RELATIVE PERCENT 1 % (BEAKER) (test code = 432) BASOPHILS RELATIVE PERCENT 1 % (BEAKER) (test code = 437) NEUTROPHILS ABSOLUTE COUNT 7.56 K/ L 1.78-5.38 H (BEAKER) (test code = 670) LYMPHOCYTES ABSOLUTE COUNT 1.60 K/ L 1.32-3.57 (BEAKER) (test code = 414) MONOCYTES ABSOLUTE COUNT (BEAKER) 1.01 K/ L 0.30-0.82 H (test code = 415) EOSINOPHILS ABSOLUTE COUNT 0.14 K/ L 0.04-0.54 (BEAKER) (test code = 416) BASOPHILS ABSOLUTE COUNT (BEAKER) 0.06 K/ L 0.01-0.08 (test code = 417) IMMATURE GRANULOCYTES-RELATIVE 0 % 0-1 PERCENT (ZACHARY) (test code = 2801) CT, [id number] 12:37:00CT abdomen pelvis with IV and PO [...] and clip in the descending colon. The report ed colonic mass in the descending colon is not clearly identified, likely secondary to overlying stent as well as lack of enteric contrast in this region. No bowel obstruction. Normal appendix. BONES AND SOFT TISSUES: Degenerative changes of the visualized spine. Soft tissues are unremarkable. IMPRESS ION:Metallic stent in the descending colon. No bowel [...] and without intravenous contrast. Signed: Stephanie Duffy eport Verified Date/Time: 07/17/2018 12:37:32 Reading Location: [facility] C013Y CT Body Reading Room CT, CHEST, WITH [id number] 12:37:00FINAL REPORT TECHNIQUE: CT of the chest, [...] and clip in the descending colon. The report ed colonic mass in the descending colon is not clearly identified, likely secondary to overlying stent as well as lack of enteric contrast in this region. No bowel obstruction. Normal appendix. BONES AND SOFT TISSUES: Degenerative changes of the visualized spine. Soft tissues are unremarkable. IMPRESS ION:Metallic stent in the descending colon. No bowel [...] and without intravenous contrast. Signed: Stephanie Duffy eport Verified Date/Time: 07/17/2018 12:37:32 Reading Location: [facility] C013Y CT Body Reading Room POCT-GLUCOSE [id number] 12:31:00 Test Item Value Reference Range Interpretation Comments POC-GLUCOSE METER 188 mg/dL 70-110 H TESTED AT [facility] 6720 ([facility]) (test code = NAMITA Brantley [facility] 9974) [address] CBC W/PLT COUNT & AUTO [id number] 12:21:00 Test Item Value Reference Range Interpretation Comments WHITE BLOOD CELL COUNT ([facility]) 10.1 K/ L 3.5-10.5 (test code = 775) RED BLOOD CELL COUNT ([facility]) 4.41 M/ L 4.63-6.08 L (test code = 761) HEMOGLOBIN ([facility]) (test code = 13.1 GM/DL 13.7-17.5 L 410) HEMATOCRIT (BEAKER) (test code = 42.6 % 40.1-51.0 411) MEAN CORPUSCULAR VOLUME (BEAKER) 96.6 fL 79.0-92.2 H (test code = 753) MEAN CORPUSCULAR HEMOGLOBIN 29.7 pg 25.7-32.2 (BEAKER) (test code = 751) MEAN CORPUSCULAR HEMOGLOBIN CONC 30.8 GM/DL 32.3-36.5 L (BEAKER) (test code = 752) RED CELL DISTRIBUTION WIDTH 14.0 % 11.6-14.4 (BEAKER) (test code = 412) PLATELET COUNT (BEAKER) (test 232 K/CU MM 150-450 code = 756) MEAN PLATELET VOLUME (BEAKER) 12.5 fL 9.4-12.4 H (test code = 754) NUCLEATED RED BLOOD CELLS 0 /100 WBC 0-0 (BEAKER) (test code = 413) NEUTROPHILS RELATIVE PERCENT 73 % (BEAKER) (test code = 429) LYMPHOCYTES RELATIVE PERCENT 14 % (BEAKER) (test code = 430) MONOCYTES RELATIVE PERCENT 10 % (BEAKER) (test code = 431) EOSINOPHILS RELATIVE PERCENT 1 % (BEAKER) (test code = 432) BASOPHILS RELATIVE PERCENT 1 % (BEAKER) (test code = 437) NEUTROPHILS ABSOLUTE COUNT 7.40 K/ L 1.78-5.38 H (BEAKER) (test code = 670) LYMPHOCYTES ABSOLUTE COUNT 1.45 K/ L 1.32-3.57 (BEAKER) (test code = 414) MONOCYTES ABSOLUTE COUNT (BEAKER) 1.01 K/ L 0.30-0.82 H (test code = 415) EOSINOPHILS ABSOLUTE COUNT 0.13 K/ L 0.04-0.54 (BEAKER) (test code = 416) BASOPHILS ABSOLUTE COUNT (BEAKER) 0.07 K/ L 0.01-0.08 (test code = 417) IMMATURE GRANULOCYTES-RELATIVE 0 % 0-1 PERCENT (BEAKER) (test code = 2801) HEMOGLOBIN [id number] 10:07:00 Test Item Value Reference Range Interpretation Comments HEMOGLOBIN A1C (BEAKER) (test code = 5.6 % 4.3-6.1 368) BASIC METABOLIC [id number] 06:33:00 Test Item Value Reference Range Interpretation Comments SODIUM (BEAKER) 138 meq/L 136-145 (test code = 381) POTASSIUM (BEAKER) 3.4 meq/L 3.5-5.1 L (test code = 379) CHLORIDE (BEAKER) 105 meq/L 98-107 (test code = 382) CO2 (BEAKER) (test 24 meq/L 22-29 code = 355) BLOOD UREA NITROGEN 10 mg/dL 7-21 (BEAKER) (test code = 354) CREATININE (BEAKER) 0.80 mg/dL 0.57-1.25 (test code = 358) GLUCOSE RANDOM 122 mg/dL 70-105 H (BEAKER) (test code = 652) CALCIUM (BEAKER) 8.5 mg/dL 8.4-10.2 (test code = 697) EGFR (BEAKER) (test 121 mL/min/1.73 ESTIM ATED GFR IS code = 1092) sq m NOT ACCURATE CREATININE CLEARANCE IN PREDICTING GLOMERULAR FILTRATION RATE . ESTIMATED GFR I S NOT APPLICABLE FOR DIALYSIS PATIEN TS. POCT-GLUCOSE [id number] 05:17:00 Test Item Value Reference Range Interpretation Comments POC-GLUCOSE METER 133 mg/dL 70-110 H TESTED AT [place] [address] ([facility]) (test code = NAMITA Brantley [facility] 1538) [address] POCT-GLUCOSE [id number] 23:45:00 Test Item Value Reference Range Interpretation Comments POC-GLUCOSE METER 121 mg/dL 70-110 H TESTED AT [place] [address] ([facility]) (test code = NAMITA Brantley [facility] 1538) [address] POCT-GLUCOSE [id number] 17:45:00 Test Item Value Reference Range Interpretation Comments POC-GLUCOSE METER 112 mg/dL 70-110 H TEST[facility] AT [facility] 67 [facility] (test code = NAMITA Brantley [facility] 1538) [address] [id number] 14:30:00 Test Item Value Reference Range Interpretation Comments ALBUMIN (BEAKER) (test code = 1145) 3.9 g/dL 3.5-5.0 POCT-GLUCOSE [id number] 12:40:00 Test Item Value Reference Range Interpretation Comments POC-GLUCOSE METER 110 mg/dL 70-110 [facility] [place] [address] [facility] (test code = NAMITA Br[facility] 1538) [address] POCT-GLUCOSE [id number] 08:32:00 Test Item Value Reference Range Interpretation Comments POC-GLUCOSE METER 137 mg/dL 70-110 H TESTED AT [place] [address] ([facility]) (test code = NAMITA Brantley [facility] 1538) [address] BASIC METABOLIC [id number] 06:10:00 Test Item Value Reference Range Interpretation Comments SODIUM (BEAKER) 143 meq/L 136-145 (test code = 381) POTASSIUM (BEAKER) 3.4 meq/L 3.5-5.1 L (test code = 379) CHLORIDE (BEAKER) 105 meq/L 98-107 (test code = 382) CO2 (BEAKER) (test 26 meq/L 22-29 code = 355) BLOOD UREA NITROGEN 13 mg/dL 7-21 (BEAKER) (test code = 354) CREATININE (BEAKER) 0.96 mg/dL 0.57-1.25 (test code = 358) GLUCOSE RANDOM 90 mg/dL 70-105 (BEAKER) (test code = 652) CALCIUM (BEAKER) 9.1 mg/dL 8.4-10.2 (test code = 697) EGFR [facility] (test 98 mL/min/1.73 ESTIMA EDSON GFR IS code = 1092) sq m NOT ACCURATE CREATININE CLEARANCE IN PREDICTING GLOMERULAR FILTRATION RATE . ESTIMATED GFR I S NOT APPLICABLE FOR DIALYSIS PATIEN TS. POCT-GLUCOSE [id number] 00:28:00 Test Item Value Reference Range Interpretation Comments POC-GLUCOSE METER 108 mg/dL 70-110 TESTED AT [place] [address] ([facility]) (test code = NAMITA Brantley [facility] 1538) [address] POCT-GLUCOSE [id number] 00:28:00 Test Item Value Reference Range Interpretation Comments POC-GLUCOSE METER 107 mg/dL 70-110 TESTED AT [place] [address] ([facility]) (test code = [facility] 1538) [address] POCT-GLUCOSE [id number] 17:40:00 Test Item Value Reference Range Interpretation Comments POC-GLUCOSE METER 137 mg/dL 70-110 H TESTED AT [place] [address] ([facility]) (test code = [facility] 1538) [address] [place], 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 CLINICAL HISTORY: BOWEL OBSTRUCTION.FINDINGS: Seven fluoroscopically acquired images were acquired by the referring physician. An intraoperative verbal report was not requested. Fluoroscopy was not performed by the undersigned. Fluoroscopy time: 129 seconds. Seven images. Signed: Rj Angel Verified Date/Time: 07/15/2018 14:44:01 Reading Location: [facility] C013X Ortho Consult Reading Room POCT-GLUCOSE [id number] 12:28:00 Test Item Value Reference Range Interpretation Comments POC-GLUCOSE METER 154 mg/dL 70-110 H TESTED AT [facility] 6720 ([facility]) (test code = [place] 1538) [address] CARCINOEMBRYONIC ANTIGEN (CEA)2018-07-15 11:45:00 Test Item Value Reference Range Interpretation Comments CARCINOEMBRYONIC ANTIGEN ([facility]) 766.0 ng/mL 0.0-5.0 H (test code = 685) RAD, CHEST, 1 VIEW, NON [id number] 11:43:00Reason for exam:->pnaShould this be performed at [...] or pneumonia depending on clinical setting. Signed: Omar Diane Verified Date/Time: 07/15/2018 11:43:39 Reading Location: [facility] B1 C013Y CT Body Reading Room HEPATIC FUNCTION PANEL 2018-07-15 09:19:00 Test Item Value Reference Range Interpretation Comments TOTAL PROTEIN (BEAKER) (test code = 8.1 gm/dL 6.0-8.3 770) ALBUMIN (BEAKER) (test code = 1145) 4.4 g/dL 3.5-5.0 BILIRUBIN TOTAL (BEAKER) (test code 0.6 mg/dL 0.2-1.2 = 377) BILIRUBIN DIRECT (BEAKER) (test 0.3 mg/dL 0.1-0.5 code = 706) ALKALINE PHOSPHATASE (BEAKER) (test 58 U/L 40-150 code = 346) AST (SGOT) (BEAKER) (test code = 16 U/L 5-34 353) ALT (SGPT) (BEAKER) (test code = 19 U/L 6-55 347) POCT-GLUCOSE [id number] 08:21:00 Test Item Value Reference Range Interpretation Comments POC-GLUCOSE METER 130 mg/dL 70-110 H TESTED AT [facility] 6720 (BEAKER) (test code = [place] 1538) [address] RESPIRATORY PANEL [id number] 07:29:00 Test Item Value Reference Range Interpretation Comments HUMAN METAPNEUMOVIRUS Not detected Not detected, (BEAKER) (test code = 2683) Equivocal RHINOVIRUS (BEAKER) (test Not detected Not detected, code = 2684) Equivocal INFLUENZA A (BEAKER) (test Not detected Not detected, code = 2685) Equivocal INFLUENZA A (NO SUBTYPE) Not detected, (test code = 3606) Equivocal INFLUENZA A SUBTYPE H1 Not detected, (BEAKER) (test code = 2686) Equivocal INFLUENZA A SUBTYPE H3 Not detected, (BEAKER) (test code = 2687) Equivocal INFLUENZA A SUBTYPE H1-2009 Not detected, (BEAKER) (test code = 3198) Equivocal INFLUENZA B (BEAKER) (test Not detected Not detected, code = 2688) Equivocal RESPIRATORY SYNCYTIAL VIRUS Not detected Not detected, (BEAKER) (test code = 3199) Equivocal PARAINFLUENZA VIRUS 1 Not detected Not detected, (BEAKER) (test code = 2691) Equivocal PARAINFLUENZA VIRUS 2 Not detected Not detected, (BEAKER) (test code = 2692) Equivocal PARAINFLUENZA VIRUS 3 Not detected Not detected, (BEAKER) (test code = 2693) Equivocal PARAINFLUENZA VIRUS 4 Not detected Not detected, (BEAKER) (test code = 3200) Equivocal ADENOVIRUS (BEAKER) (test Not detected Not detected, code = 2694) Equivocal CORONAVIRUS 229E (BEAKER) Not detected Not detected, (test code = 3201) Equivocal CORONAVIRUS HKU1 (BEAKER) Not detected Not detected, (test code = 3202) Equivocal CORONAVIRUS NL63 (BEAKER) Not detected Not detected, (test code = 3203) Equivocal CORONAVIRUS OC43 (BEAKER) Not detected Not detected, (test code = 3204) Equivocal BORDETELLA PERTUSSIS Not detected Not detected, (BEAKER) (test code = 3205) Equivocal CHLAMYDOPHILA PNEUMONIAE Not detected Not detected, (BEAKER) (test code = 3206) Equivocal MYCOPLASMA PNEUMONIAE Not detected Not detected, (BEAKER) (test code = 3207) Equivocal Other viruses and bacteria not targeted by this PCR panel cannot be excluded; therefore clinical correlation and follow up of serology, culture results, and other molecular studies is required. The results are not intended to be used as the sole means for clinical diagnosis or patient management decisions. This sample was tested at the [facility] using the [employer] Respiratory Panel. It is FDA cleared and has been verified and approved by the [facility] for clinical use on nasal swab specimens. It is not FDA-cleared for use on bronchial wash/lavage samples. However, for this sample type, validation was performed and test characteristics were determined and approved, by [facility] for clinical use under the Clinical Laboratory Improvement Amendments (CLIA) of 1988 requirements. Therefore, FDA clearance isnot required. This laboratory is CLIA-certified and [employer] (CAP)-accredited to perform high complexity testing.LEGIONELLA ANTIGEN, URINE 2018-07-15 04:44:00 Test Item Value Reference Range Interpretation Comments L. PNEUMOPHILA Negative - see Negative fo r L. SEROGP 1 UR AG comment pneumophila (ZACHARY) (test code serogrou p 1 antigen, = 1156) suggesting no r ecent or current infe ction with this serog roup. Legionellosis c annot be ruled out si nce other serogroup s and species may cau se disease. STREP PNEUMONIAE [id number] 04:43:00 Test Item Value Reference Range Interpretation Comments STREP PNEUMONIAE Presumptive negative Presumptive negative ANTIGEN (BEAKER) for pneumococcal for pneumococcal (test code = 1615) pneumonia - see pneumonia - see comment commen Presumptive negative for pneumococcal pneumonia, suggesting no current or recent pneumococcal infection. Infection due to S. pneumoniae cannot be ruled out since the antigen present in the sample may be below the detection limit of the test.POCT-GLUCOSE [id number] 01:51:00 Test Item Value Reference Range Interpretation Comments POC-GLUCOSE METER 127 mg/dL 70-110 H TESTED AT [facility] 6720 (BEAKER) (test code = NAMITA GABRIEL CO 1538) [address] BASIC METABOLIC [id number] 00:38:00 Test Item Value Reference Range Interpretation Comments SODIUM (BEAKER) 136 meq/L 136-145 (test code = 381) POTASSIUM (BEAKER) 3.3 meq/L 3.5-5.1 L (test code = 379) CHLORIDE (BEAKER) 101 meq/L 98-107 (test code = 382) CO2 (BEAKER) (test 22 meq/L 22-29 code = 355) BLOOD UREA NITROGEN 11 mg/dL 7-21 (BEAKER) (test code = 354) CREATININE (BEAKER) 0.85 mg/dL 0.57-1.25 (test code = 358) GLUCOSE RANDOM 114 mg/dL 70-105 H (BEAKER) (test code = 652) CALCIUM (BEAKER) 9.3 mg/dL 8.4-10.2 (test code = 697) EGFR (BEAKER) (test 113 mL/min/1.73 ESTIM ATED GFR IS code = 1092) sq m NOT ACCURATE CREATININE CLEARANCE IN PREDICTING GLOMERULAR FILTRATION RATE . ESTIMATED GFR I S NOT APPLICABLE FOR DIALYSIS PATIEN TS. RAPID INFLUENZA A&B [id number] 00:32:00 Test Item Value Reference Range Interpretation Comments RAPID INFLUENZA A AG (BEAKER) Negative Negative, Inconclusive (test code = 1622) RAPID INFLUENZA B AG (BEAKER) Negative Negative, Inconclusive (test code = 1623) CBC W/PLT COUNT & AUTO [id number] 22:58:00 Test Item Value Reference Range Interpretation Comments WHITE BLOOD CELL COUNT (BEAKER) 10.9 K/ L 3.5-10.5 H (test code = 775) RED BLOOD CELL COUNT (BEAKER) 4.96 M/ L 4.63-6.08 (test code = 761) HEMOGLOBIN (BEAKER) (test code = 14.5 GM/DL 13.7-17.5 410) HEMATOCRIT (BEAKER) (test code = 46.1 % 40.1-51.0 411) MEAN CORPUSCULAR VOLUME (BEAKER) 92.9 fL 79.0-92.2 H (test code = 753) MEAN CORPUSCULAR HEMOGLOBIN 29.2 pg 25.7-32.2 (BEAKER) (test code = 751) MEAN CORPUSCULAR HEMOGLOBIN CONC 31.5 GM/DL 32.3-36.5 L (BEAKER) (test code = 752) RED CELL DISTRIBUTION WIDTH 13.9 % 11.6-14.4 (BEAKER) (test code = 412) PLATELET COUNT (BEAKER) (test 277 K/CU MM 150-450 code = 756) MEAN PLATELET VOLUME (BEAKER) 11.2 fL 9.4-12.4 (test code = 754) NUCLEATED RED BLOOD CELLS 0 /100 WBC 0-0 (BEAKER) (test code = 413) NEUTROPHILS RELATIVE PERCENT 81 % (BEAKER) (test code = 429) LYMPHOCYTES RELATIVE PERCENT 11 % (BEAKER) (test code = 430) MONOCYTES RELATIVE PERCENT 7 % (BEAKER) (test code = 431) EOSINOPHILS RELATIVE PERCENT 0 % (BEAKER) (test code = 432) BASOPHILS RELATIVE PERCENT 0 % (BEAKER) (test code = 437) NEUTROPHILS ABSOLUTE COUNT 8.86 K/ L 1.78-5.38 H (BEAKER) (test code = 670) LYMPHOCYTES ABSOLUTE COUNT 1.21 K/ L 1.32-3.57 L (BEAKER) (test code = 414) MONOCYTES ABSOLUTE COUNT (BEAKER) 0.79 K/ L 0.30-0.82 (test code = 415) EOSINOPHILS ABSOLUTE COUNT 0.01 K/ L 0.04-0.54 L (BEAKER) (test code = 416) BASOPHILS ABSOLUTE COUNT (BEAKER) 0.02 K/ L 0.01-0.08 (test code = 417) IMMATURE GRANULOCYTES-RELATIVE 1 % 0-1 PERCENT (BEAKER) (test code = 2801)
--- OUTSIDE RECORDS SUMMARY | 2020-11-01 22:16 | XMS REPORT | Summary of Care ---
:1960 Author Organization [facility] [place] [address] Care Team Providers Name Role Phone Graham Goodwin MD Primary Care Provider Reason for Visit Reason Comments Wound Check Consult, Test & Treat (Routine) Status Reason Specialty Diagnoses / Referred By Referred To Procedures Contact Contact Pending Thoracic Surgery Diagnoses Pleural effusion cath placement POV - add on per REBECCA - Niesha Treviño, Rina Mcelroy Procedures DE OFFICE CONSULTATION NEW/ESTAB PATIENT 15 MIN POST OP MD Granados, CONDUIT INSTALLER-C [address] [place] [address] [address] [place], [place] Phone: [phone] Phone: Encounter Details Date Type Department Care Team Description 10/15/2020 Office Visit [facility] Rina Mcelroy, Wound Check Thoracic Surgery CONDUIT INSTALLER-C [address] 6[address], [address] [facility] [address] Allergies No Known Active Allergiesdocumented as of this encounter (statuses as of 10/15/2020) Medications Medication Sig Dispensed Refills Start Date End Date Status docusate sodium Take 1 Cap by mouth 60 Cap 3 12/04/2018 Active (COLACE) 100 MG two times daily. capsule lidocaine-prilocaine Apply 1 application 30 g 3 9 Active (EMLA) 2.5-2.5 % topically as needed. cream glimepiride (AMARYL) Take 1 Tab by mouth 90 Tab 3 9 Active 4 MG tablet every morning. Additional Information Patient taking differently: 4 mg ORAL 2 TIMES DAILY, Reason: Patient's preference (patient said he takes BID), Reported on 10/13/2020 Insulin Aspart Prot & Inject 30 Units 0 06/22/2019 Active Aspart (NOVOLOG MIX 70/30 into the skin. FLEXPEN) (70-30) 100 UNIT/ML SUPN aspirin EC 81 MG TBEC Take 81 mg by mouth 0 10/27/19 20 10/26/2020 Active daily. Tamsulosin HCl 0.4 MG TAKE 1 CAPSULE BY 90 Cap 1 04/28/2020 Active CAPSIndications: Benign MOUTH EVERY DAY prostatic hyperplasia with urinary frequency potassium chloride SA Take 1 Tab by mouth 60 Tab 6 07/28/20 20 Active (K-DUR, KLOR-CON M20) 20 two times daily. MEQ tabletIndications: Hypokalemia sildenafil citrate (VIAGRA) TAKE ONE (1) 0 0 Active 100 MG tablet TABLET(S) BY MOUTH 30 MINS BEFORE SEX. Morphine Sulfate ER 15 MG Take 1 Tablet by 60 Each 0 020 Active [id number]: Cancer mouth every 12 related pain hours. gabapentin (NEURONTIN) 300 Take 300 mg by 0 10/02/20 20 10/16/2020 Active MG capsule mouth 3 times daily. Ergocalciferol (VITAMIN D2 Take 50,000 Units 0 Active OR) by mouth every 30 days. Enoxaparin Sodium 120 Inject into the 0 Active MG/0.8ML SOLN skin two times daily. hydrocodone-acetaminophen Take 1 Tablet by 0 Active (NORCO) 10-325 MG per mouth every 6 hours tablet as needed for Pain. furosemide (LASIX) 40 MG Take 40 mg by mouth 0 Active tablet two times daily. metoprolol (LOPRESSOR) 50 Take 50 mg by mouth 0 Active MG tablet two times daily. documented as of this encounter (statuses as of 10/15/2020) Active Problems Problem Noted Date Non-insulin dependent type 2 diabetes mellitus (HCCode ) 05/23/2019 Colon cancer metastasized to multiple sites (HCCode) 1 documented as of this encounter (statuses as of 10/15/2020) Immunizations Name Administration Dates Next Due Influenza Quad-PF 07/31/2020 documented as of this encounter Social History Tobacco Use Types Packs/Day Years Used Date Former Smoker Cigarettes 1 33 1973 - 007 Smokeless Tobacco: Former User Q uit: 06/10/2007 Alcohol Use Drinks/Week oz/Week Comments Not Currently Stopped drinking 2017 Alcohol Habits Answer Date Recorded How often do you have a drink containing alcohol? Not asked How many drinks containing alcohol do you have on a typical 5 or 6 07/24/2018 day when you are drinking? How often do you have six or more drinks on one occasion? No t asked Sex Assigned at Date Recorded Not on file COVID-19 Exposure Response Date Recorded In the last month, have you been in contact with Yes 10/09/2020 9:05 AM PHOTOENGRAVING PRINTER someone who was confirmed or suspected to have Coronavirus / COVID-19? documented as of this encounter Last Filed Vital Signs Vital Sign Reading Time Taken Comments Blood Pressure 132/70 10/15/2020 8:41 AM PHOTOENGRAVING PRINTER Pulse 85 10/15/2020 8:41 AM PHOTOENGRAVING PRINTER Temperature 36.8 C (98.3 F) 10/15/2020 8:41 AM PHOTOENGRAVING PRINTER Respiratory Rate - - Oxygen Saturation - - Inhaled Oxygen Concentration - - Weight 116.6 kg (257 lb) 10/15/2020 8:41 AM PHOTOENGRAVING PRINTER Height 180.3 cm (5' 11") 10/15/2020 8:41 AM PHOTOENGRAVING PRINTER Body Mass Index 35.84 10/15/2020 8:41 AM PHOTOENGRAVING PRINTER documented in this encounter Patient Instructions Patient InstructionsTaylorBonny MA - 10/15/2020 8:43 AM CSTYour Body mass index is 35.84 kg/m. Body mass index (BMI) can help you see if your weight is raising your risk for health problems. It uses a formula to compare how much you weigh with how tall you are. A BMI between 18.5 and 24.9 is considered healthy. A BMI between 25 and 29.9 is considered overweight. A BMI of 30 or higher is considered obese. If your BMI is in the normal range, it means that you have a lower risk for weight-related health problems. If your BMI is in the overweight or obese range, you may be at increased risk for weight-related health problems, such as high blood pressure, heart disease, stroke, arthritis or joint pain, anddiabetes. BMI is just one measure of your risk for weight-related health problems. You may be at higher risk for health problems if you are not active, you eat an unhealthy diet, or you drink too much alcohol oruse tobacco products. Follow-up care is a garcia part of your treatment and safety. Be sure to make and go to all appointments, and call your doctor if you are having problems. It's also a good idea to know your test results and keep a list of the medicines you take. How can you care for yourself at home? Practice healthy eating habits. This includes eating plenty of fruits, vegetables, whole grains, lean protein, and low-fat dairy. Get at least 30 minutes of exercise 5 days a week or more. Brisk walking is a good choice. You also may want to do other activities, such as running, swimming, cycling, or playing tennis or team sports. Do not smoke. Smoking can increase your risk for health problems. If you need help quitting, talkto your doctor about stop-smoking programs and medicines. These can increase your chances of quitting for good. Limit alcohol Where can you learn more? Go to www.[employer] Go to the Search tab with the magnifying glass on the right side of [employer] home page. Enter S176 in the search box to learn more about "Body Mass Index: Care Instructions." We discussed that you are at risk for falling. Our goal is to prevent a fall that might seriously affect your wellbeing. We agreed to the following plan(s): Keep recommended follow up appointment to see how you are doing Where can you learn more? Go to www.[employer] Go to the Search tab with the magnifying glass on the right side of [employer] home page. Enter G117 in the search box to learn more about "Preventing Falls: Care Instructions." OENGRAVING PRINTER documented in this encounter Progress Notes Rina Mcelroy NP-C - 10/15/2020 8:15 AM [facility] FOLLOW UP REASON FOR VISIT: Post-op visit/wound check SUBJECTIVE: Shai Gonzalez Jr. is a 59 y.o. male here for post-op follow up s/pRight thoracoscopic partial decortication and pleural biopsyon 09/30/20. Shai Daniel a 59 y.o.M with a history of Stage IV colon cancer with omental carcinomatosis since 2018 (s/p FOLFOX and 5FU chemotherapy undergoing FOLFIRI) on therapeutic anticoagulation whopresented withmalignant right- sided pleural effusion. Patient s/p previous thoracentesis procedures with a recent PleurX catheter placement 04/07/20 by IR. This became nonfunctional after 4-6 weeks andwas removed by IR 06/16/20. Patient states that he was able to drain 300-500mL per day initially until the PleurX stopped working. He currently uses home O2, up to 3L. His main goal is to improve his breathing to be able to return to work. 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 Pt was recently admitted to [facility] 08/20 - 08/22/20 for recurrent large bowel obstruction due to tumor ingrowth into prior sigmoid colon stent s/p c-scope and new stent placement 08/21. He reports that he is still taking therapeutic lovenox with his history of cancer and multiple PEs. Patient underwent R VATS partial decortication and pleural biopsy on 09/30/2020. The planned pleurx catheter was unable to be placed. He tolerated the procedure well, was extubated in the OR, and was admitted to [facility] for post operative care. He was noted to have R lung infiltrates on CT scan, and wasprescribed a 1 week course of Augmentin. His ChT was removed on POD 2 after high output resolved, with post pull stable imaging. He was transitioned to PO pain meds and instructed to follow up closely with Dr. Rai and Dr. Hernandez.By day of discharge, patient was afebrile/vital signs stable, tolerating regular diet, voiding freely, passing flatus, ambulating, and pain was controlled with po pain meds. Today he returns to clinic for wound site check. He reports that it is still draining quite a bit from the incision site. On today's dressing drainage was scant and incision site looked clean. He has started chemo with . Denies any F/C. REVIEW OF SYSTEMS: 14 point review of symptoms is negative except for the complaints noted above. PHYSICAL EXAM: Blood pressure 132/70, pulse 85, temperature 98.3 F (36.8 C), temperature source Oral, height 5'11" (1.803 m), weight 257 lb (116.6 kg). Body mass index is 35.84 kg/m. Overall well-appearing, comfortable, and in no distress. No difficulty in climbing upon the exam room table. Sclera are anicteric and mucous membrane are moist. No evidence of cervical, supraclavicular, or axillary lymphadenopathy. Symmetric bilateral chest excursion, with no chest wall tenderness. Clear breath sounds in all posterior bilateral lung jha. Normal cardiac examination without murmurs or rubs. Right chest tube site incisions partially healed. Slight bloody drainage noted. Abdomen is soft, nontender, and non distended. No upper extremity swelling or clubbing. No lower extremity edema. Skin exam is normal. Neurologic exam is nonfocal and gait is normal. IMPRESSION & RECOMMENDATIONS: Shai Gonzalez Jr. is a 59 y.o. male with metastatic colon cancer with large right malignant pleural effusion.s/pRight thoracoscopic partial decortication and pleural biopsyon 09/30/20.Intra op he was noted to have necrotic tumor,biopsy positive for moderately differentiated adenocarcinoma compatible with adenocarcinoma of colonic origin. Scant amount of drainage on previous dressing. Incision site clean. Cleaned the incision site and applied ABD pad and Tegaderm dressing. He will continue to change dressing daily and as needed. He willRTC next for follow up with . He agreed and voiced understanding of the plan. was given enough opportunity to ask questions and were answered up to his satisfaction. GABRIEL Leblanc Thoracic Surgery OENGRAVING PRINTER documented in this encounter Plan of Treatment Date Type Specialty Care Team Description 10/15/[address] [facility], [facility] Chair Arrived [address], [address] [place], [place] [address] 10/23/2020 Office Visit Thoracic Surgery Tarun Rai M D [address] [facility] [address] [place], [place] [address] [phone] 10/27/2020 Office Visit Hematology and Miguel Bennett, Oncology CONDUIT INSTALLER [address], [address] [place], [place] [address] [phone] 10/27/2020 Appointment Infusion Center 7, [facility] Chair [address], [address] [place] [address] 10/29/2020 Appointment Infusion Center 2, [facility] Chair [address], [address] [place] [address] 11/05/2020 Office Visit Cardiology Kelly Lobo MD [address] [facility] [address] [place], [place] [address] [phone] Health Maintenance Due Date Last Done Comments COVID-19 Vaccine Evaluation 1960 TETANUS SHOT (ADULT) 12/12/1975 ANNUAL DIABETIC FOOT EXAM 1978 ANNUAL DIABETIC RETINOPATHY 1978 SCREENING HEPATITIS C SCREENING 1978 HIV SCREENING 1978 ZOSTER VACCINE (1 of 2) 2010 A1C TESTING EVERY 6 MONTHS 10/25/2020 04/24/2020, 05/07/2019 BMI FOLLOW UP PLAN 10/15/2021 10/15/2020, 10/09/2020, 09/18/2020 COLON CANCER SCREENIN09/11/2028 09/11/2018, COLONOSCOPY 07/18/2018, 07/15/2018 FLU VACCINE > 6 MONTHS Completed 07/31/2020, 08/02/2018 HPV VACCINE Aged Out No longer eligib [place] based on patient's age to complete this to pic documented as of this encounter Results Not on filedocumented in this encounter Visit Diagnoses Diagnosis Colon cancer metastasized to multiple si elissa (HCCode) - Primary Malignant neoplasm of colon, unspecified site Encounter for postoperative wound check - Primary Other specified aftercare following surg deo documented in this encounter Insurance Payer Benefit Plan / Subscriber ID Effective Dates Phone Addre ss Type Group [facility] - [id number] 2018-Present [address] [place] [address] documented as of this encounter
--- OUTSIDE RECORDS SUMMARY | 2020-11-01 22:16 | XMS REPORT | Summary of Care ---
:1960 Author Organization [facility] [place] [address] Care Team Providers Name Role Phone Graham Goodwin MD Primary Care Provider Reason for Visit Reason Comments Follow Up Encounter Details Date Type Department Care Team Description 10/23/2020 Office Visit [facility] Tarun Rai MD Follow Up Thoracic Surgery [address] [place] [address] [address], [address] [place] [address] [place], [place] [id number] Allergies No Known Active Allergiesdocumented as of this encounter (statuses as of 10/23/2020) Medications Medication Sig Dispensed Refills Start Date [...] Tablet by 60 Each 0 020 Active [id number]: Cancer mouth every 12 related pain hours. Ergocalciferol (VITAMIN D2 Take 50,000 Units 0 [...] as of this encounter (statuses as of 10/23/2020) Active Problems Problem Noted Date Non-insulin dependent type 2 diabetes mellitus (HCCode ) 05/23/2019 [facility] documented as of this encounter (statuses as of 10/23/2020) Immunizations Name Administration Dates Next Due Influenza [...] in contact with Yes 10/09/2020 9:05 AM IMPREGNATOR AND DRIER HELPER someone who was confirmed or suspected to have Coronavirus / COVID-19? documented as of this encounter Last Filed Vital Signs Vital Sign Reading Time Taken Comments Blood Pressure 128/64 10/23/2020 8:18 AM IMPREGNATOR AND DRIER HELPER Pulse 82 10/23/2020 8:18 AM IMPREGNATOR AND DRIER HELPER Temperature 36.9 C (98.4 F) 10/23/2020 8:18 AM IMPREGNATOR AND DRIER HELPER Respiratory Rate - - Oxygen Saturation - - Inhaled Oxygen Concentration - - Weight 115.2 kg (254 lb) 10/23/2020 8:18 AM IMPREGNATOR AND DRIER HELPER Height 180.3 cm (5' 11") 10/23/2020 8:18 AM IMPREGNATOR AND DRIER HELPER Body Mass Index 35.43 10/23/2020 8:18 AM IMPREGNATOR AND DRIER HELPER documented in this encounter Patient Instructions Patient InstructionsTaylorBonny MA - 10/23/2020 8:19 AM CSTYour Body mass index is 35.43 kg/m. Body mass index (BMI) can help [...] Where can you learn more? Go to [email or web address] Go to the Search tab with the magnifying glass on the right side of [employer] home page. Enter S176 in the search box to learn more about "Body Mass Index: Care Instructions." EGNATOR AND DRIER HELPER documented in this encounter Progress Notes Tarun Rai MD - 10/23/2020 8:45 AM CSTThoracic Surgery Attending Note I, Dr. Tarun Rai, personally performed the services described in this documentation, ascribed by Rina Mcelroy, Thoracic Surgery [employer], in my presence, and it is both accurate and complete. In brief, he is a 59 year old man with stage IV colon cancer who was diagnosed in 2018. He is on systemic chemotherapy and has a known malignant right pleural effusion. He underwent Pleurx placement by IR in April 2020 but was removed 6 weeks later after it stopped draining. Since then, he's noticedworsening dyspnea. He is now on 3L of oxygen and due to dyspnea is unable to work. Recent cross sectional imaging demonstrated a moderate to large right pleural effusion. He was seen by Dr. Florez who felt that he'd be better served by thoracoscopic Pleurx placement. On 09/30/2020, I performed a right thoracoscopic exploration. The space was filled with old blood and tumor debris. I did not place a Pleurx since there was no free-flowing fluid. Furthermore, the lung was entrapped by a thick rind of tumor. Biopsies confirmed the presence of carcinoma. On preadmission testing, he had a mildly elevated WBC and developed an infiltrate postop. Consequently, we placed him on Augmentin for a community acquired pneumonia. At his first postoperative visit, he had mild breakdown of his chest tube incision. He's following up for a wound check. His dyspnea is unchanged. His primarily complains of abdominal pain which he attributes to his stent. He's had no drainage from the incision. On exam, his incisions are healing nicely. There is no surrounding erythema or induration. In summary, Mr. Gonzalez is a 59 year old man with a colon cancer and right pleural disease. His lungis entrapped. There is no free-flowing fluid for drainage. His lung will not expand or collapse further without a thoracotomy and decortication which is not in his best interest. I recommend no further intervention at this time. His incisions are healing nicely. There is no need for any particular further wound care. He will follow-up with Dr. Hernandez and will see me on an as needed basis. Tarun Rai M.D. Rina De Leon NP-C - 10/23/2020 8:45 AM CST [facility] FOLLOW UP REASON FOR VISIT: Post-op visit/wound check SUBJECTIVE: Shai Gonzalez Jr. is a 59 y.o. male here for post-op follow up s/Jorget thoracoscopic partial decortication and pleural biopsyon 09/30/20. 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 Pt was recently admitted [facility] [...] Today he returns to clinic for wound check. He reports that he had been changing dressing twice daily until yesterday but noticed no drainage yesterday. He is still using oxygen 3-4 L NC depending on his activity. He has started chemo and second cycle due on next Tuesday. Denies any F/C. REVIEW OF SYSTEMS: 14 point review of symptoms is negative except for the complaints noted above. PHYSICAL EXAM: Blood pressure 128/64, pulse 82, temperature 98.4 F (36.9 C), temperature source Oral, height 5'11" (1.803 m), weight 254 lb (115.2 kg). Body mass index is 35.43 kg/m. Overall well-appearing, comfortable, and in no distress. No difficulty in climbing upon the exam room table. Sclera are anicteric and mucous membrane are moist. No evidence of cervical, supraclavicular, or axillary lymphadenopathy. Symmetric bilateral chest excursion, with no chest wall tenderness. Clear breath sounds in all posterior bilateral lung jha. Normal cardiac examination without murmurs or rubs. Right thoracoscopic incisions well approximated and healed. Right chest tube site well approximated, No drainage noted. Abdomen is soft, nontender, and non distended. No upper extremity swelling or clubbing. No lower extremity edema. Skin exam is normal. Neurologic exam is nonfocal and gaitis normal. PROCEDURE: 09/30/20: NAME OF OPERATION: Right thoracoscopic partial decortication and pleural biopsy. PATHOLOGY: 09/30/20: DIAGNOSIS EXT A. PLEURA, RIGHT, BIOPSY: MODERATELY DIFFERENTIATED ADENOCARCINOMA. SEE DIAGNOSTIC COMMENT. B. PLEURA, RIGHT, BIOPSY: MODERATELY DIFFERENTIATED ADENOCARCINOMA. Signing Pathologist Direct Phone Line: [phone] IMPRESSION & RECOMMENDATIONS: Shai Gonzalez Jr. is a 59 y.o. male with metastatic colon cancer with large right malignant pleural effusion.s/pRight thoracoscopic partial decortication and pleural biopsyon 09/30/20.Intra op he was noted to have necrotic tumor,biopsy positive for moderately differentiated adenocarcinoma compatible with adenocarcinoma of colonic origin.He is here for wound check. His chest tube site has approximated well and healed. No drainage noted. He will continue oncologiccare with . He will call us with any questions, concerns or RTC as needed for follow up. IRina NP-C, am scribing for, and in the presence of, Dr. Rai. GABRIEL Leblanc Thoracic Surgery EGNATOR AND DRIER HELPER documented in this encounter Plan of Treatment Date Type Specialty Care Team Description 10/27/2020 Office Visit Hematology and Oncology Shonna Bennett NP [address] [facility] [address], [address] [place], [place] [address] [phone] 10/27/2020 Appointment Infusion Center 7, [facility] Chair [address] [facility] [address], [address] [place], [place] [address] 10/29/2020 Appointment Infusion Center 2, [facility] Chair [address] [facility] [address], [address] [place], [place] [address] 11/05/2020 Office Visit Cardiology Kelly Lobo MD [address] [address] [phone] Health Maintenance Due Date Last Done Comments COVID-19 Vaccine 1960 Evaluation TETANUS SHOT (ADULT) 12/12/1975 ANNUAL DIABETIC FOOT EXAM 1978 ANNUAL DIABETIC 1978 RETINOPATHY SCREENING HEPATITIS C SCREENING 1978 HIV SCREENING 1978 ZOSTER VACCINE (1 of 2) 2010 A1C TESTING EVERY 6 MONTHS 10/25/2020 04/24/2020, 9 BMI FOLLOW UP PLAN 10/23/2021 10/23/2020, 10/15/2020, 10/09/2020, Additional history exists COLON CANCER SCREENIN09/11/2028 09/11/2018, 07/18/2018, COLONOSCOPY 07/15/2018 FLU VACCINE > 6 MONTHS Completed 07/31/2020, 08/02/2018 HPV VACCINE Aged Out No longer eliarmidab [place] based on patient 's age to complete this topic documented as of this encounter Results Not on filedocumented in this encounter Visit Diagnoses Diagnosis Malignant pleural effusion - Primary documented in this encounter Insurance Payer Benefit Plan / Subscriber ID Effective Dates Phone Addre ss Type Group [facility] PRAVEEN - [id number] 2018-Present [address] [place] [address] documented as of this encounter
--- OUTSIDE RECORDS SUMMARY | 2020-11-01 22:16 | XMS REPORT | Summary of Care ---
:1960 Author Organization [facility] Address [address] [id number] Care Team Providers Name Role Phone Graham Goodwin MD Primary Care Provider Reason for Visit Reason Comments Initial Consultation Consult, Test & Treat (Routine) Status Reason Specialty Diagnoses / Referred By Referred To Procedures Contact Contact Authorization Not Thoracic Diagnoses Pleural effusion ADD ON - internal referral - ref by Dr. Florez - Pleural Effusion - eval for pleurex placement - RAMÍREZ Florez, Tarun Ledesma, Needed Surgery Procedures CO OFFICE CONSULTATION NEW/ESTAB PATIENT 30 MIN NEW PATIENT MD NICHO Zapata [address] [place] [id number] Phone: Fax: Encounter Details Date Type Department Care Team Description 09/18/2020 Office Visit [facility] Tarun Collins MD Initial Consultation Medicine Thoracic [address] [place] [address] Surgery [address] [place] [address] [address], [address] [phone] [place] [address] [phone] Allergies No Known Active Allergiesdocumented as of this encounter (statuses as of 10/05/2020) Medications Medication Sig Dispensed Refills Start End Date Status Date cyclobenzaprine Take 10 mg by 0 Active (FLEXERIL) 10 MG mouth 3 times tablet daily as needed for Muscle spasms. ondansetron Take 1 Tab by 30 Tab 3 Acti ve (ZOFRAN) 8 mg mouth every 8 9 tablet hours as needed. For chemotherapy-in duced nausea docusate sodium Take 1 Cap by 60 Cap 3 Active (COLACE) 100 MG mouth two times 9 capsule daily. lidocaine-prilocain Apply 1 30 g 3 Active e (EMLA) 2.5-2.5 % application 9 cream topically as needed. glimepiride Take 1 Tab by 90 Tab 3 Acti ve (AMARYL) 4 MG mouth every 9 tablet morning. Insulin Aspart Prot Inject 30 Units 0 Active & Aspart (NOVOLOG into the skin. 9 MIX 70/30 FLEXPEN) (70-30) 100 UNIT/ML SUPN [facility] PURELAX TAKE 17 G BY 510 g 2 Activ e powderIndications: MOUTH DAILY 9 Colon cancer NEEDED WITH metastasized to WATER OR JUICE multiple sites (HCCode) aspirin EC 81 MG Take 81 mg by 0 10/26/19 Active TBEC mouth. 0 21 furosemide (LASIX) Take 40 mg by 0 Active 20 MG tablet mouth two times 0 daily. promethazine Take 1 Tab by 30 Tab 2 Act annabelle (PHENERGAN) 12.5 MG mouth every 6 0 tablet hours as needed for Nausea. Ergocalciferol Take by mouth. 0 Active (VITAMIN D2) 10 MCG (400 UNIT) TABS Tamsulosin HCl 0.4 TAKE 1 CAPSULE 90 Cap 1 Active MG CAPSIndications: BY MOUTH EVERY 0 Benign prostatic DAY hyperplasia with urinary frequency linaGLIPtin 5 MG Take 5 mg by 30 Tab 0 Active TABSIndications: mouth daily. 0 Non-insulin dependent type 2 diabetes mellitus (HCCode) Enoxaparin Sodium Inject 1 60 Syringe 6 A ctive 120 MG/0.8ML Syringe into 0 SOLNIndications: the skin every Colon cancer 12 hours. metastasized to multiple sites (HCCode), VTE (venous thromboembolism) potassium chloride Take 1 Tab by 60 Tab 6 Active SA (K-DUR, KLOR-CON mouth two times 0 M20) 20 MEQ daily. tabletIndications: Hypokalemia metoprolol Take 1 Tablet 180 Tablet 3 Acti ve (LOPRESSOR) 25 MG by mouth two 0 tabletIndications: times daily. Essential hypertension, benign, Atrial fibrillation, unspecified type (HCCode), SOB (shortness of breath) sildenafil citrate TAKE ONE (1) 0 Active (VIAGRA) 100 MG TABLET(S) BY 0 tablet MOUTH 30 MINS BEFORE SEX. senna-docusate Take 1 Tab by 0 09/18/20 D iscontinued (PERICOLACE) 8.6-50 mouth. 0 20 (*Therapy MG per tablet comple murphy) Morphine Sulfate ER Take 1 Tablet 60 Each 0 Discontinued 15 MG by mouth every 0 20 (Reor adam) [id number]: 12 hours. Cancer related pain hydrocodone-acetami Take 1 Tablet 120 Tablet 0 09/29 Discontinued nophen (NORCO) by mouth every 0 20 (Reorder) 10-325 MG per 6 hours as tabletIndications: needed for Cancer related pain Pain. Eprescribed documented as of this encounter (statuses as of 10/05/2020) Active Problems Problem Noted Date Non-insulin dependent type 2 diabetes mellitus (HCCode ) 05/23/2019 Colon cancer metastasized to multiple sites (HCCode) 1 documented as of this encounter (statuses as of 10/05/2020) Immunizations Name Administration Dates Next Due Influenza Quad-PF 07/31/2020 documented as of this encounter Social History Tobacco Use Types Packs/Day Years Used Date Former Smoker Cigarettes 1 30 Quit: 06/10/20 07 Smokeless Tobacco: Former User Q uit: 06/10/2007 [...] Assigned at Date Recorded Not on file documented as of this encounter Last Filed Vital Signs Vital Sign Reading Time Taken Comments Blood Pressure 131/66 09/18/2020 2:16 PM [employer] Pulse 81 09/18/2020 2:16 PM [employer] Temperature 36.2 C (97.2 F) 09/18/2020 2:16 PM [employer] Respiratory Rate - - Oxygen Saturation - - Inhaled Oxygen Concentration - - Weight 122 kg (269 lb) 09/18/2020 2:16 PM [employer] Height 180.3 cm (5' 11") 09/18/2020 2:16 PM [employer] Body Mass Index 37.52 09/18/2020 2:16 PM [employer] documented in this encounter Patient Instructions Patient InstructionsMarisa MannMARIO - 09/18/2020 2:30 PM CSTYour Body mass index is 37.52 kg/m. Body mass index (BMI) can help [...] Where can you learn more? Go to [email or web address] Go to the Search tab with the magnifying glass on the right side of Fiiiling home page. Enter S176 in the search box to learn more about "Body Mass Index: Care Instructions." [employer] documented in this encounter Progress Notes Tarun Rai MD - 09/18/2020 2:00 PM CSTThoracic Surgery Attending Note Patient seen and examined with Thoracic Surgery Resident, Dr. Rosemary Swift. The above note reflects ourjoint assessment and plan. In brief, he is a 59 year [...] be better served by thoracoscopic Pleurx placement. Past Medical History, Past Surgical History, Medications, Allergies, Social History, Family History and Review of Symptoms as above On therapeutic LMWH for PEs On exam, he is well-appearing. His sclera are anicteric. Breathing mildly labored but in no acute distress. He is alert and orientated. Studies: CT chest (06/05/2020) Images reviewed by me. Moderate right pleural effusion CT Abdomen and Pelvis (08/20/2020) Colonic distention proximal to the stent in the descending colon,suggesting obstruction. Interval progression of right pleural, and hepatic serosal metastatic deposits. Omental carcinomatosis is grossly unchanged. Stable left adrenal mass. In summary, Mr. Gonzalez is a 59 year old man with a malignant right pleural effusion. We discussed the management options for a malignant pleural effusion. I recommend placing another tunneled pleuralcatheter. We discussed outpatient Pleurx care. After discussing the risks and benefits of the procedure, the patient provided informed consent for a right thoracoscopic Pleurx catheter placement. Tarun Rai M.D. uRosemary MD - 09/18/2020 2:00 PM CST [facility] THORACIC SURGERY INITIAL CLINIC VISIT Reason for visit: Malignant right pleural effusion Referring Physician: Dr. Vikki Gibbons Lisa is a 59 y.o. M with a history of Stage IV colon cancer with omental carcinomatosis since 2018 (s/p FOLFOX and 5FU chemotherapy undergoing FOLFIRI) on therapeutic anticoagulation who presented with malignant right-sided pleural effusion. Patient s/p previous thoracentesis procedures with a recent PleurX catheter placement 04/07/20 by IR. This became nonfunctional after 4-6 weeks and wasremoved by IR 06/16/20. Patient states that he was able to drain 300-500mL per day initially until the PleurX stopped working. He currently uses home O2, up to 3L. His main goal is to improve his breathing to be able to return to work. 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 Pt was recently admitted to [facility] 08/20 - 08/22/20 for recurrent large bowel obstruction due to tumor ingrowth into prior sigmoid colon stent s/p c-scope and new stent placement 08/21. He reports that he is still taking therapeutic lovenox with his history of cancer and multiple PEs. ZUBROD SCALE: 2 ECOG STATUS: 2 Patient Active Problem List Diagnosis Colon cancer metastasized to multiple sites (HCCode) Non-insulin dependent type 2 diabetes mellitus (HCCode) Past Medical History: Diagnosis Date Asthma Colon cancer (HCCode) HBP (high blood pressure) No past surgical history on file. Current Outpatient Medications Medication Sig Dispense Refill aspirin EC 81 MG TBEC Take 81 mg by mouth. [facility] PURELAX powder TAKE 17 G BY MOUTH DAILY NEEDED WITH WATER OR JUICE 510 g 2 cyclobenzaprine (FLEXERIL) 10 MG tablet Take 10 mg by mouth 3 times daily as needed for Muscle spasms. docusate sodium (COLACE) 100 MG capsule Take 1 Cap by mouth two times daily. 60 Cap 3 Enoxaparin Sodium 120 MG/0.8ML SOLN Inject 1 Syringe into the skin every 12 hours. 60 Syringe 6 Ergocalciferol (VITAMIN D2) 10 MCG (400 UNIT) TABS Take by mouth. furosemide (LASIX) 20 MG tablet Take 40 mg by mouth two times daily. glimepiride (AMARYL) 4 MG tablet Take 1 Tab by mouth every morning. 90 Tab 3 hydrocodone-acetaminophen (NORCO) 10-325 MG per tablet Take 1 Tablet by mouth every 6 hours as needed for Pain. Eprescribed 120 Tablet 0 Insulin Aspart Prot & Aspart (NOVOLOG MIX 70/30 FLEXPEN) (70-30) 100 UNIT/ML SUPN Inject 30 Units into the skin. lidocaine-prilocaine (EMLA) 2.5-2.5 % cream Apply 1 application topically as needed. 30 g 3 linaGLIPtin 5 MG TABS Take 5 mg by mouth daily. 30 Tab 0 metoprolol (LOPRESSOR) 25 MG tablet Take 1 Tablet by mouth two times daily. 180 Tablet 3 Morphine Sulfate ER 15 MG T12A Take 1 Tablet by mouth every 12 hours. 60 Each 0 ondansetron (ZOFRAN) 8 mg tablet Take 1 Tab by mouth every 8 hours as needed. For chemotherapy-induced nausea 30 Tab 3 potassium chloride SA (K-DUR, KLOR-CON M20) 20 MEQ tablet Take 1 Tab by mouth two times daily. 60 Tab 6 promethazine (PHENERGAN) 12.5 MG tablet Take 1 Tab by mouth every 6 hours as needed for Nausea. 30 Tab 2 sildenafil citrate (VIAGRA) 100 MG tablet TAKE ONE (1) TABLET(S) BY MOUTH 30 MINS BEFORE SEX. Tamsulosin HCl 0.4 MG CAPS TAKE 1 CAPSULE BY MOUTH EVERY DAY 90 Cap 1 No current facility-administered medications for this visit. No Known Allergies Family History Problem Relation Name Age of Onset Colon Cancer Father Social History Socioeconomic History Marital status: Spouse name: Not on file Number of children: Not on file Years of education: Not on file Highest education level: Not on file Occupational History Not on file Tobacco Use Smoking status: Former Smoker Packs/day: 1.00 Years: 30.00 Pack years: 30 Types: Cigarettes Quit date: 06/10/2007 Years since quittin.2 Smokeless tobacco: Former User Quit date: 06/10/2007 Substance and Sexual Activity Alcohol use: Not Currently Comment: Stopped drinking 2017 Drug use: No Comment: as a kid Sexual activity: Yes Partners: Female Other Topics Concerns: Not on file Social History Narrative He lives independently. He is , but his lives in a separate house (they are not , just living separately). He has 4 children - an army sergeant, a nurse in [employer], a master lay out specialist, and a worker at [employer]. He has many grandchildren and says he enjoys playing with them and spoiling them. 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 Social Determinants of Health Financial Resource Strain: Difficulty of Paying Living Expenses: Not on file Food Insecurity: Worried About Running Out of Food in the Last Year: Not on file Ran Out of Food in the Last Year: Not on file Transportation Needs: Lack of Transportation (Medical): Not on file Lack of Transportation (Non-Medical): Not on file Physical Activity: Days of Exercise per Week: Not on file Minutes of Exercise per Session: Not on file Stress: Feeling of Stress : Not on file Social Connections: Frequency of Communication with Friends and Family: Not on file Frequency of Social Gatherings with Friends and Family: Not on file Attends Baptism Services: Not on file Active Member of Clubs or Organizations: Not on file Attends Club or Organization Meetings: Not on file Marital Status: Not on file Intimate Partner Violence: Fear of Current or Ex-Partner: Not on file Emotionally Abused: Not on file Physically Abused: Not on file Sexually Abused: Not on file Oncology History No history exists. REVIEW OF SYSTEMS: Constitutional: Negative for chills, activity change and appetite change, weight loss or night sweats. Neurological: Negative for dizziness, seizures, syncope, light-headedness and headaches. Psychiatric/Behavioral: Negative for hallucinations and confusion. No depression, anxiety HEENT: Negative for hearing loss, ear pain, facial swelling and neck pain. Negative for pain, discharge and itching. Cardiovascular: Negative for chest pain and palpitations. No syncope or near syncope. No peripheral edema Respiratory: Positive for shortness of breath. Negative for apnea, cough and chest tightness. No chest wall pain, No hemoptysis or wheezing GI: Negative for nausea, diarrhea, constipation, reflux, pain, dysphagia early satiety. Genitourinary: Negative for urgency, hematuria and flank pain. Skin:No rashes or non-healing ulcers. Endocrine: Negative for cold intolerance, heat intolerance, polydipsia. Infectious Disease: No known exposure to Hepatitis A, B, C, D, or E; no known exposure to HIV; no known exposure to active tuberculosis EXAM: BP 131/66 (BP Location: right arm, Patient Position: Sitting) | Pulse 81 | Temp 97.2 F (36.2 C) (Oral) | Ht 5' 11" (1.803 m) | Wt 269 lb (122 kg) | BMI 37.52 kg/m Constitutional: he is oriented to person, place, and time. Appears well- developed, well-nourished. Neurological: Oriented to person, place and time; normal affect and mood; no abnormal gait or imbalance; normal muscle tone; no significant decreased sensation in extremities to light touch/pressure Psychiatric: normal mood and affect. Head: Normocephalic and atraumatic. Eyes: EOM are normal. Pupils are equal, round, and reactive to light. Neck: Normal range of motion. No thyromegaly present. No carotid bruit. Cardiovascular: Normal rate and rhythm. No murmurs. PMI Nondisplaced Pulmonary/Chest: Effort normal. Diminished breath sounds on right. No respiratory distress. No wheezes. No chest wall tenderness. Stable on 3L NC. Abdominal: Soft, No distension. There is no tenderness. No rebound. No abdominal scars. Musculoskeletal: Right hand numbness and parethesia, not moving right 4th and small fingers, Skin: Skin is warm and dry. No rash noted. No erythema. Lymphatic: No Cervical, clavicular, femoral adenopathy. STUDIES: 08/20/2020 CT abd/pel images and report reviewed, radiologist interpretation follows: Colonic distention proximal to the stent in the descending colon, suggesting obstruction. Interval progression of right pleural, and hepatic serosal metastatic deposits. Omental carcinomatosis is grossly unchanged. Stable left adrenal mass. 07/31/2020 Beside ultrasound performed by Dr. Florez - RIGHT - large complex effusion 06/30/2020Bedside ultrasound performed by Dr. Florez LEFT - no fluid RIGHT - large effusion 06/16/2020CXR images and report reviewed, radiologist interpretation follows: Interval removal of previous right pleural drain. Otherwise, no significant interval change. 06/05/2020CT chest images and report reviewed, radiologist interpretation follows: 1.Suggestion of some mildly increased disease, extensive right pleural and peritoneal/omental nodularity appears slightly worse than 03/13/2020. 2.Right anterior supradiaphragmatic lymph nodes continue to minimally increased in conspicuity. 3.Unchanged left adrenal mass. 4.Unchanged size of the large right pleural effusion. IMPRESSION & RECOMMENDATIONS: In Summary Shai Gonzalez is a 59 y.o. male with metastatic colon cancer with large right malignant pleural effusion. We will proceed to OR on 09/30/20 for Right Video-Assisted Thoracoscopic Surgery (VATS) and PleurX catheter placement. Risks, benefits, and indications of the procedure were discussed. Consent was obtained. PAT and COVID testing will be performed preoperatively. He was advised to hold lovenox shot the evening prior to surgery. The patient was given ample amount of time to ask all of their questions and they were all thoroughly answered by Dr. Rai. Patient verbalizes understanding and has no further questions at this time. Rosemary Swift MD Thoracic Surgery documented in this encounter Plan of Treatment Date Type Specialty Care Team Description 10/13/2020 Office Visit Hematology and Oncology Kyle Hernandez MD [address] [place], [place] [address] [phone] 10/13/2020 Appointment Infusion Center 4, [facility] [address], [address] [place], [place] [address] 10/15/2020 Appointment Infusion Center 7, [facility] [address] [facility] Floor, [address] [place], [place] [address] 10/27/2020 Appointment Infusion Center 7, [facility] [address] [place] [address], [address] [place], [place] [address] 10/29/2020 Appointment Infusion Center 2, [facility] [address] [facility] Floor, [address] [place], [place] [address] 11/05/2020 Office Visit Cardiology Kelly Lobo MD [address] [place] [address] [address] [phone] Health Maintenance Due Date Last Done Comments TETANUS SHOT (ADULT) 12/12/1975 ANNUAL DIABETIC FOOT EXAM 1978 ANNUAL DIABETIC RETINOPATHY 1978 SCREENING HEPATITIS C SCREENING 1978 HIV SCREENING 1978 ZOSTER VACCINE (1 of 2) 2010 A1C TESTING EVERY 6 MONTHS 10/25/2020 04/24/2020, 05/07/2019 BMI FOLLOW UP PLAN 09/18/2021 09/18/2020 COLON CANCER SCREENIN09/11/2028 09/11/2018, COLONOSCOPY 07/18/2018, 07/15/2018 FLU VACCINE > 6 MONTHS Completed 07/31/2020, 08/02/2018 HPV VACCINE Aged Out No longer eligib le based on patient's age to complete [facility] documented as of this encounter Results Not on filedocumented in this encounter Visit Diagnoses Diagnosis Malignant pleural effusion - Primary documented in this encounter Insurance Payer Benefit Plan / Subscriber ID Effective Dates Phone Addre ss Type Group [facility] [employer] - [id number] 2018-Present [address] [place] [address] documented as of this encounter
--- OUTSIDE RECORDS SUMMARY | 2020-11-01 22:16 | XMS REPORT | Summary of Care ---
:1960 Author Organization [facility] [place] [address] Care Team Providers Name Role Phone Graham Goodwin MD Primary Care Provider Reason for Visit Reason Comments Follow Up Encounter Details Date Type Department Care Team Description [facility] Azam Falcon [address] [place] [address] [address] [facility] [phone] 7th Floor, [address] [place] [address] Allergies No Known Active Allergiesdocumented as of this encounter (statuses as of 09/15/2020) Medications Medication Sig Dispensed Refills Start Date End Date Status cyclobenzaprine Take 10 mg by 0 Active (FLEXERIL) 10 MG mouth 3 times tablet daily as needed for Muscle spasms. ondansetron (ZOFRAN) Take 1 Tab by 30 Tab 3 11/06/2018 Active 8 mg tablet mouth every 8 hours as needed. For chemotherapy-yaneli cliff nausea docusate sodium Take 1 Cap by 60 Cap 3 12/04/2018 Active (COLACE) 100 MG mouth two times capsule daily. lidocaine-prilocaine Apply 1 30 g 3 12/04/2018 Active (EMLA) 2.5-2.5 % application cream topically as needed. glimepiride (AMARYL) Take 1 Tab by 90 Tab 3 05/23/2019 Active 4 MG tablet mouth every morning. Insulin Aspart Prot & Inject 30 Units 0 06/22/2019 Active Aspart (NOVOLOG MIX into the skin. 70/30 FLEXPEN) (70-30) 100 UNIT/ML SUPN [facility] PURELAX TAKE 17 G BY 510 g 2 09/14/2019 Acti ve powderIndications: MOUTH DAILY Colon cancer NEEDED WITH WATER metastasized to OR JUICE multiple sites (HCCode) aspirin EC 81 MG TBEC Take 81 mg by 0 10/27/2019 Active mouth. furosemide (LASIX) 20 Take 40 mg by 0 10/27/2019 Active MG tablet mouth. senna-docusate Take 1 Tab by 0 10/27/2019 10/26/2020 Active (PERICOLACE) 8.6-50 mouth. MG per tablet promethazine Take 1 Tab by 30 Tab 2 11/08/2019 Ac tive (PHENERGAN) 12.5 MG mouth every 6 tablet hours as needed for Nausea. Ergocalciferol Take by mouth. 0 Active (VITAMIN D2) 10 MCG (400 UNIT) TABS Tamsulosin HCl 0.4 MG TAKE 1 CAPSULE BY 90 Cap 1 04/28/2020 Active CAPSIndications: MOUTH EVERY DAY Benign prostatic hyperplasia with urinary frequency linaGLIPtin 5 MG Take 5 mg by 30 Tab 0 05/30/2020 Active TABSIndications: mouth daily. Non-insulin dependent type 2 diabetes mellitus (HCCode) Enoxaparin Sodium 120 Inject 1 Syringe 60 Syringe 6 07/28/2020 Active MG/0.8ML into the skin SOLNIndications: every 12 hours. Colon cancer metastasized to multiple sites (HCCode), VTE (venous thromboembolism) potassium chloride SA Take 1 Tab by 60 Tab 6 07/28/2020 Active (K-DUR, KLOR-CON M20) mouth two times 20 MEQ daily. tabletIndications: Hypokalemia metoprolol Take 1 Tablet by 180 Tablet 3 08/19/2020 Active (LOPRESSOR) 25 MG mouth two times tabletIndications: daily. Essential hypertension, benign, Atrial fibrillation, unspecified type (HCCode), SOB (shortness of breath) Morphine Sulfate ER Take 1 Tablet by 60 Each 0 09/01/2020 Active 15 MG mouth every 12 [id number]: hours. Cancer related pain hydrocodone-acetamino Take 1 Tablet by 120 Tablet 0 09/01/2020 Active phen (NORCO) 10-325 mouth every 6 MG per hours as needed tabletIndications: for Pain. Cancer related pain Eprescribed documented as of this encounter (statuses as of 09/15/2020) Active Problems Problem Noted Date Non-insulin dependent type 2 diabetes mellitus (HCCode ) 05/23/2019 Colon cancer metastasized to multiple sites (HCCode) 1 documented as of this encounter (statuses as of 09/15/2020) Immunizations Name Administration Dates Next Due Influenza Quad-PF 07/31/2020 documented as of this encounter Social History Tobacco Use Types Packs/Day Years Used Date Former Smoker Cigarettes 1 30 Quit: 06/10/20 07 Smokeless Tobacco: Former User Q uit: 06/10/2007 Alcohol Use Drinks/Week oz/Week Comments Not Currently Stopped drinking 2017 - social drinker Alcohol Habits Answer Date Recorded How often [...] Sign Reading Time Taken Comments Blood Pressure 153/78 09/15/2020 8:23 AM LOKIE ENGINEER Pulse 119 09/15/2020 8:23 AM LOKIE ENGINEER Temperature 37.1 C (98.7 F) 09/15/2020 8:23 AM LOKIE ENGINEER Respiratory Rate - - Oxygen Saturation - - Inhaled Oxygen Concentration - - Weight 122 kg (269 lb) 09/15/2020 8:23 AM LOKIE ENGINEER Height 180.3 cm (5' 11") 09/15/2020 8:23 AM LOKIE ENGINEER Body Mass Index 37.52 09/15/2020 8:23 AM LOKIE ENGINEER documented in this encounter Progress Notes Kyle Hernandez MD - 09/15/2020 8:40 AM CST Patient: Shai Gonzalez 1960 59 y.o. with stage IV colon cancer diagnosed at [facility], here for f/u 09/15/2020: Overall, feeling better. Main issue remains his breathing. Doesn't really need O2 at rest, but needs with ambulation. BMs good since stent placed. Pain better controlled on MSER 15 q12h +Sauquoit (average 2 pills/d). No CP, no N/V, no F/C/NS. ECOG PS 2 (stable) Course summary: - admitted to [facility] for obstipation - cScope 07/15/18 (Tasha@ [facility]): A malignant-appearing, intrinsic severe stenosis measuring 3 mm (inner diameter) was found in the descending colon and was non-traversed. This was stented with a 25 mm x 87 mm Ultraflex Precision stent under fluoroscopic guidance. Estimated blood loss was minimal. - CEA 766 on 07/15/18 - CT CAP 07/17/18 ([facility]): Metallic stent in the descending [...] with suspicious cells - R thoracentesis 07/17/18 ([facility]): 1043 WBC, 9500 RBCs; fluid not sent for cytology. Protein 5, albumin 2.9 - paracentesis 07/18/18: cytology + for adenoCA - cScope 07/18/18: partially obstructing descending colon mass with stent in place - R chest port 07/19/18, was supposed to start chemo but lost insurance - admitted to [facility] in Sep 2018 for LBO [...] aspect of the stent - FOLFOX #6 4/, #7 01/15, #8 01/29 - 5FU/LV maintenance [...] 07/16/19, 07/30/19, 08/13/19, 08/27/19, 09/10/19 - [facility]: 09/18/19-09/20/19 (approximate dates): R pleural effusion, negative CT chest angiogram, normal EF. Thoracentesis with negative cytology, started on Betapace and Eliquis - 5FU/LV: 09/25/19, held 10/08/19 for worsening clinical status (+SAPP, absent right pleural sounds) - CT 10/23/19 ([facility]): Technically suboptimal exam, allowing for this limitation, no PE is identified. Large right pleural effusion. Suspect right-sided pleural- based metastasis. Stent in proximal descending colon. There is omental carcinomatosis. Serosal deposits may also be present along the liver surface. Indeterminate left adrenal 3.3 cm mass. - R thoracentesis 10/27/19: few atypical cells staining + for MOC1 and CDX2 - FOLFIRI #1 11/05/19, #2 11/19/19, #3 12/10/19, #4 12/23, #5 01/06 - CT 01/18/20: Moderate to large right pleural effusion. Increased right pleural nodularity and plaque-like thickening, compatible with progression of metastasis. There is also increased number of smallright diaphragmatic lymph nodes, which are all likely metastatic. Stent in descending colon. Stable a ppearance of omental carcinomatosis. Stable left adrenal 3.3 cm mass -> reported as PD, but to myeye, very little change when compared to Oct, R pleural effusion stable, and CEA (which was rising) is now falling - FOLFIRI #6 01/21/20, #7 02/04/20, #8 02/18/20, #9 03/03/20 - CT CAP 03/13/20: Stable appearance of loculated right pleural effusion with pleural-based nodularity and mildly enlarged right diaphragmatic lymph nodes likely reflecting metastatic disease. Omental carcinomatosis is also unchanged. Stable left adrenal mass - FOLFIRI #10 03/17/20, #11 03/31/20 - R PleurX placed 04/08/20 - FOLFIRI 04/14/20 #12 - CT chest PE protcol 04/22/20: Bilateral acute pulmonary emboli within the lobar and segmental branches in all the lobes. No evidence of right heart strain. New subpleural focus of consolidation in theleft lower lobe. Otherwise stable - FOLFIRI 05/12/20 (held 04/30 per pt request and clinical SAPP), 05/26/20 - CT CAP 06/05/20: Suggestion of some mildly increased disease, extensive right pleural and peritoneal/omental nodularity appears slightly worse than 03/13/2020. Right anterior supradiaphragmatic lymph nodes continue to minimally increased in conspicuity. Unchanged left adrenal mass. Unchanged size of the large right pleural effusion. - FOLFIRI 06/11/20, 06/30/2020, 07/14/20, 07/28/20, 08/11/20 - hospitalized for LBO, scope showed occluded stent 08/21/20 -> new stent placed - FOLFIRI 09/01, 09/15 Past Medical, Surgical, Family, Social History: unchanged [...] per tablet Take 1 Tab by mouth. Tamsulosin HCl 0.4 MG CAPS TAKE 1 CAPSULE BY MOUTH EVERY DAY 90 Cap 1 No current facility-administered medications for this visit. Review of Systems Constitutional: Negative for chills, fever and weight loss. HENT: Negative. Eyes: Negative. Respiratory: Positive for shortness of breath (a little worse now). Negative for cough. Cardiovascular: Positive for orthopnea (chronic (ANASTACIO)) and leg swelling (chronic (mild), R>L, mild now). Gastrointestinal: Positive for abdominal pain (managed well with MSER and Sauquoit). Negative for bloodin stool, constipation (normal stools since stent placed), diarrhea, nausea and vomiting. Genitourinary: Negative for frequency and urgency. Musculoskeletal: Positive for joint pain (chronic). Skin: Negative. Neurological: Positive for sensory change (mild numbness in feet and fingers, stable). Negative for seizures. Endo/Heme/Allergies: Negative. Psychiatric/Behavioral: Negative. BP 153/78 (BP Location: left arm, Patient Position: Sitting, Cuff Size: regular) | Pulse 119 | Temp 98.7 F (37.1 C) (Oral) | Ht 5' 11" (1.803 m) | Wt 269 lb (122 kg) | BMI 37.52 kg/m Wt Readings from Last 3 Encounters: 09/15/20 269 lb (122 kg) 09/01/20 261 lb 3.2 oz (118.5 kg) 08/18/20 257 lb 11.2 oz (116.9 kg) Physical Exam Constitutional: He is oriented to person, place, and time and well-developed, well-nourished, and inno distress. No distress. Alone today. No acute distress, on O2. HENT: Head: Normocephalic and atraumatic. Right Ear: External ear normal. Left Ear: External ear normal. Eyes: Conjunctivae and EOM are normal. No scleral icterus. Cardiovascular: Normal rate, regular rhythm and normal heart sounds. tachycardic Pulmonary/Chest: No tachypnea. He has no decreased breath sounds. He has no wheezes. He has no rales. Port CDI Absent breath sounds R lung Sites of prior PleurX wel-healed, no nodularity Abdominal: Soft. Bowel sounds are normal. There is no abdominal tenderness. There is no rebound and no guarding. Musculoskeletal: General: Edema (1+ RLE, trace LLE edeam) present. Normal range of motion. Cervical back: Normal range of motion and neck supple. Lymphadenopathy: He has no cervical adenopathy. Neurological: He is alert and oriented to person, place, and time. Gait normal. Skin: Skin is warm and dry. No rash noted. He is not diaphoretic. No erythema. Psychiatric: Mood, memory, affect and judgment normal. Pertinent labs/studies (other than those mentioned in the HPI): Lab Results Component Value Date WBC 7.7 09/01/2020 HGB 8.6 (L) 09/01/2020 HCT 30.3 (L) 09/01/2020 MCV 86.1 09/01/2020 PLT 460 (H) 09/01/2020 Lab Results Component Value Date ALT 9 09/01/2020 AST 20 09/01/2020 ALKPHOS 85 09/01/2020 BILITOT 0.3 09/01/2020 Lab Results Component Value Date CREATININE 0.62 (L) 09/01/2020 BUN 12 09/01/2020 NA 144 09/01/2020 K 4.3 09/01/2020 CL 106 09/01/2020 CO2 30 09/01/2020 Lab Results Component Value Date CEA 264.0 (H) 09/01/2020 Assessment/Plan: 1) biopsy-proven stage IV pMMR KRAS [...] Now with larger effusion (cytology +), rising CEA. CT on 03/13/20 shows SD, stable effusion. R PleurX placed 04/08/20. Now with bilateral PE on admission 04/22/20. CT while an inpt at [facility] 08/14/20 showed stable to slightly worse disease (I reviewed the images) - cont FOLFIRI - restage in mid Oct, switch back to FOLFOX upon samuel PD - zofran prn - cont f/u with Dr. Hewitt 2) SOB/R pleural effusion/vol overload, multifactorial (Afib/RVR, R plerual effusion with + cytology, Bilateral PEs) - f/u cardiology - PleurX removed. I sent a message to Dr. 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 Kalin Muñized Professor Azam Falcon [facility] E ENGINEER documented in this encounter Plan of Treatment Date Type Specialty Care Team Description 09/15/2020 Hospital Encounter Infusion Center 10, [facility] Chair [address], [address] [place], [place] [address] 09/17/2020 Appointment Infusion Center 4, [facility] [address] [facility] 7th Floor, [address] [place], [place] [address] 09/29/2020 Appointment Infusion Center 15, [facility] [address] [facility] 7th Floor, [address] [place], [place] [address] 10/01/2020 Appointment Infusion Center 20, [facility] 11/05/2020 Office Visit Cardiology Kelly Lobo MD [address] [address] Health Maintenance Due Date Last Done Comments TETANUS SHOT (ADULT) 12/12/1975 ANNUAL DIABETIC FOOT EXAM 1978 ANNUAL DIABETIC RETINOPATHY 1978 SCREENING BMI FOLLOW UP PLAN 1978 HEPATITIS C SCREENING 1978 HIV SCREENING 1978 ZOSTER VACCINE (1 of 2) 2010 A1C TESTING EVERY 6 MONTHS 10/25/2020 04/24/2020, 05/07/2019 COLON CANCER SCREENIN09/11/2028 09/11/2018, COLONOSCOPY 07/18/2018, 07/15/2018 FLU VACCINE > 6 MONTHS Completed 07/31/2020, 08/02/2018 HPV VACCINE Aged Out No longer eligib [place] based on patient's age to complete this to pic documented as of this encounter Results Not on filedocumented in this encounter Visit Diagnoses Diagnosis Colon cancer metastasized to multiple si elissa (HCCode) - Primary Malignant neoplasm of colon, unspecified site Colon cancer metastasized to multiple si elissa (HCCode) - Primary Malignant neoplasm of colon, unspecified site documented in this encounter Insurance Payer Benefit Plan / Subscriber ID Effective Dates Phone Addre ss Type Group [facility] PRAVEENR - [id number] 2018-Present [address] [place] [address] documented as of this encounter
--- OUTSIDE RECORDS SUMMARY | 2020-11-01 22:16 | XMS REPORT | Summary of Care ---
:1960 Author Organization [facility] [place] [address] Care Team Providers Name Role Phone Graham Goodwin MD Primary Care Provider Reason for Visit Reason Comments Pleural Effusion Cancer Encounter Details Date Type Department Care Team Description 09/18/2020 Office Visit [facility] Niesha Florez MD Pleural Effusion; Medicine Pulmonary [address] Cancer [address] Floor, [address] [place] [address] [place], [place] [id number] Allergies No Known Active Allergiesdocumented as of this encounter (statuses as of 10/02/2020) Medications Medication Sig Dispensed Refills Start End [...] unspecified type (HCCode), SOB (shortness of breath) senna-docusate Take 1 Tab by 0 09/18/20 D iscontinued (PERICOLACE) 8.6-50 mouth. 0 20 (*Therapy MG per tablet comple murphy) Morphine Sulfate ER Take 1 Tablet 60 Each 0 Discontinued 15 MG by mouth every 0 20 (Reor adam) [id number]: 12 hours. Cancer related pain hydrocodone-acetami Take 1 Tablet 120 Tablet 0 09/29 Discontinued nophen (NORCO) by mouth every 0 20 (Reorder) 10-325 MG per 6 hours as tabletIndications: needed for Cancer related pain Pain. Eprescribed documented as of this encounter (statuses as of 10/02/2020) Active Problems Problem Noted Date Non-insulin dependent type 2 diabetes mellitus (HCCode ) 05/23/2019 Colon cancer metastasized to multiple sites (HCCode) 1 documented as of this encounter (statuses as of 10/02/2020) Immunizations Name Administration Dates Next Due Influenza [...] Time Taken Comments Blood Pressure 131/66 09/18/2020 1:18 PM SAP BPC ARCHITECT Pulse 81 09/18/2020 1:18 PM SAP BPC ARCHITECT Temperature - - Respiratory Rate 16 09/18/2020 1:18 PM SAP BPC ARCHITECT Oxygen Saturation - - Inhaled Oxygen Concentration - - Weight 122 kg (269 lb) 09/18/2020 1:18 PM SAP BPC ARCHITECT Height 180.3 cm (5' 11") 09/18/2020 1:18 PM SAP BPC ARCHITECT Body Mass Index 37.52 09/18/2020 1:18 PM SAP BPC ARCHITECT documented in this encounter Patient Instructions Patient InstructionsNiesha Florez MD - 09/18/2020 1:00 PM CSTThank you choosing the Interventional Pulmonary clinic at [facility]. Please let us know what we can do better by providing comments on the survey you will receive. We value your feedback! Here are some helpful general instructions: 1. If you have not already done so, we encourage you to sign up for [email or web address] as it is a very efficient way to contact the Pulmonary team for non-emergent questions / requests. 2. Labs can be performed / scheduled at the front line supervisor. Results will be provided to you either through DeluxeBox or a personal communication (letter or phone call) from our team. 3. Chest CT Scans will be performed at [facility] at [address]. To make or confirm your appointment, please call [phone] Option 3. 4. Certain CTs can be performed at [facility], we will tell you if this is possible - To make or confirm your appointment, please call [phone]. 5. Please go to the front line supervisor on your way out today to schedule your next appointment 6. If you are scheduled for a bronchoscopy you will receive a confirmation call from Juana Farah from Pulmonary. 7. If you have questions after your visit, please contact us in one of the following ways: ? For non-emergent questions / requests: DeluxeBox message ? For appointments: ? For clinical matters: ; you will be asked to leave a message and our team will call you back as soon as possible, and definitely within 1-2 business day. ? Please note I am in the OR most days of the week and may be not be as prompt to reply to all your messages as I would like so be patient with me. ? For emergent clinical issues: please call 911 or go to the emergency room. ? To send in clinical records: please use the fax number at or send via DeluxeBox ? Please see below for specific information related to your diagnosis or symptoms. ? THORACIC SURGERY ? We appreciate the opportunity to take part in your care. BPC ARCHITECT documented in this encounter Progress Notes Niesha Florez MD - 09/18/2020 1:00 PM CST INTERVENTIONAL PULMONOLOGY Chief Complaint: colon cancer with pleural effusions History of Present Illness: Mr. Gonzalez is here for follow up today. He was last seen in clinic on 07/31/2020. Since the last visit, he has been doing roughly the same. Notes significant neuropathy in his hands. Short of breath with exertion. On O2 - 3L NC. He denies any coughing, wheezing, fevers, chills, weight loss or hemoptysis. There has not been any chest pain, syncope or lightheadedness. He denies any nocturnal respiratory symptoms. The remainder of his 14 system review of systems are otherwise negative. Allergies: Patient has no known allergies. Current medications: Current Outpatient Medications Medication Sig Dispense Refill [...] No current facility-administered medications for this visit. His past medical history, family history and social history are otherwise unchanged. Physical examination: Vital signs: Blood pressure 131/66, pulse 81, resp. rate 16, height 5' 11" (1.803 m), weight 269 lb (122 kg).. SpO2 100% on 3LNC. In general, he appears well and is in no acute distress. On HEENT exam, his mucus membranes are moist and his oropharynx is clear. He has no cervical lymphadenopathy, thyroid enlargement or thyroid nodules. On cardiovascular examination, he has a regular rate and rhythm with no murmurs, rubs or gallops with a normal S1 and S2. He has good respiratory effort with symmetric expansion with diminished breath sounds on the right on auscultation. His abdomen is soft, non-tender and non-distended. On extremity exam, he has no clubbing or cyanosis, has 1+ RLE edema. He has no rashes, lesions or ulcers on examined portions of the skin. He is alert and orientated and his affect is normal. Data: Oncology notes reviewed Discussed with Dr Hernandez 09/18/2020 Ultrasound Performed - highly complex effusion 08/20/2020 CT abd/pel images and report reviewed, radiologist interpretation follows: Colonic distention proximal to the stent in the descending colon, suggesting obstruction. Interval progression of right pleural, and hepatic serosal metastatic deposits. Omental carcinomatosis is grossly unchanged. Stable left adrenal mass. 07/31/2020 Beside ultrasound performed - RIGHT - large complex effusion 06/30/2020 Bedside ultrasound performed LEFT - no fluid RIGHT - large [...] size of the large right pleural effusion. Pulmonary Function Tests: none on file Impression/Recommendations: Mr. Gonzalez is a 59 y.o. male with Stage IV Colon Cancerwho presents for continued evaluation and management ofright sided large malignant pleural effusion. # Colon Cancer # Pleural Effusion # PE # chronic anticoagulation - theultrasounddemonstrates that is iscomplex, no safe window without cutdown - enlarging slowly - referring to thoracic surgery for surgical placement of pleurx - will be seen today I have discussed my findings and recommendations with the patient and have answered all of his questions. I asked him to contact me if he does not hear back about any testing in order to obtain the results. documented in this encounter Plan of Treatment Date Type Specialty Care Team Description 10/13/2020 Office Visit Hematology and Oncology Kyle Hernandez MD [address] [place], [place] [address] 10/13/2020 Appointment Infusion Center 4, [facility] Chair [address], [address] [place] [address] 10/15/2020 Appointment Infusion Center 7, [facility] Chair [address], [address] [place] [address] 10/27/2020 Appointment Infusion Center 7, [facility] Chair [address], [address] [place] [address] 10/29/2020 Appointment Infusion Center 2, [facility] [address], [address] [place], [place] [address] 11/05/2020 Office Visit Cardiology Kelly Lobo MD [address] [address] 0 [phone] Health Maintenance Due Date Last Done Comments [...] Primary Malignant neoplasm of colon, unspecified site Pleural effusion Unspecified pleural effusion documented in this encounter Insurance Payer Benefit Plan / Subscriber ID Effective Dates Phone Addre ss Type Group [facility] PRAVEENR - [id number] 2018-Present [address] [place] [address] documented as of this encounter
--- OUTSIDE RECORDS SUMMARY | 2020-11-01 22:16 | XMS REPORT | Summary of Care ---
:1960 Author Organization [facility] [place] [address] Care Team Providers Name Role Phone Graham Goodwin MD Primary Care Provider Reason for Visit Reason Comments Follow Up Encounter Details Date Type Department Care Team Description 09/01/2020 Office Visit [facility] Kyle Soto MD Follow Up [facility] Azam Falcon [address] [place] [address] [address] [facility] [phone] 7th Floor, [address] [place] [address] Allergies No Known Active Allergiesdocumented as of this encounter (statuses as of 09/01/2020) Medications Medication Sig Dispensed Refills Start End [...] mg by 0 Active 20 MG tablet mouth. 0 senna-docusate Take 1 Tab by 0 10/26/19 A ctive (PERICOLACE) 8.6-50 mouth. 0 21 MG per tablet promethazine Take 1 Tab [...] breath) Morphine Sulfate ER Take 1 Tablet 60 Each 0 Active 15 MG by mouth every 0 [id number]: 12 hours. Cancer related pain hydrocodone-acetami Take 1 Tablet 120 Tablet 0 Active nophen (NORCO) by mouth every 0 10-325 MG per 6 hours as tabletIndications: needed for Cancer related pain Pain. Eprescribed Morphine Sulfate ER Take 1 Tab by 60 Each 0 Discontinued 15 MG mouth every 12 0 20 (Reor adam) [id number]: hours. Cancer related pain hydrocodone-acetami Take 1 Tab by 120 Tab 0 Discontinued nophen (NORCO) mouth every 6 0 20 ( Reorder) 10-325 MG per hours as needed tabletIndications: for Pain. Cancer related pain Eprescribed documented as of this encounter (statuses as of 09/01/2020) Active Problems Problem Noted Date Non-insulin dependent type 2 diabetes mellitus (HCCode ) 05/23/2019 Colon cancer metastasized to multiple sites (HCCode) 1 documented as of this encounter (statuses as of 09/01/2020) Immunizations Name Administration Dates Next Due Influenza [...] Sign Reading Time Taken Comments Blood Pressure 94/61 09/01/2020 8:29 AM PAPERBOARD BOX MAKER Pulse 137 09/01/2020 8:29 AM PAPERBOARD BOX MAKER Temperature 36.8 C (98.3 F) 09/01/2020 8:29 AM PAPERBOARD BOX MAKER Respiratory Rate - - Oxygen Saturation - - Inhaled Oxygen Concentration - - Weight 118.5 kg (261 lb 3.2 oz) 09/01/2020 8:29 AM PAPERBOARD BOX MAKER Height 180.3 cm (5' 11") 09/01/2020 8:29 AM PAPERBOARD BOX MAKER Body Mass Index 36.43 09/01/2020 8:29 AM PAPERBOARD BOX MAKER documented in this encounter Progress Notes Kyle Hernandez MD - 09/01/2020 8:20 AM CST Patient: Shai Gonzalez 1960 59 y.o. with stage IV colon cancer diagnosed at [facility], here for f/u 09/01/2020: Since last visit pt was hospitalized for LBO, scope showed occluded stent -> new stent placed. BMs good now but having more issues with SAPP. Pain better controlled on MSER 15 q12h + [place] (average 2 pills/d). No CP, no N/V, no F/C/NS. ECOG PS 2 (stable) Course summary: - admitted to [facility] for obstipation - cScope 07/15/18 (Tasha@ [facility]): A malignant-appearing, intrinsic severe stenosis measuring 3 mm (inner diameter) was found in the descending colon and was non-traversed. This was stented with a 25 mm x 87 mm Ultraflex Precision stent under fluoroscopic guidance. Estimated blood loss was minimal. - CEA 766 on 07/15/18 - CT CAP 07/17/18 ([facility]): Metallic stent in the [...] with suspicious cells - R thoracentesis 07/17/18 ([facility]): 1043 WBC, 9500 RBCs; fluid not sent for cytology. Protein 5, albumin 2.9 - paracentesis 07/18/18: cytology + for adenoCA - cScope 07/18/18: partially obstructing descending colon mass with stent in place - R chest port 07/19/18, was supposed to start chemo but lost insurance - admitted to [facility] in Sep 2018 for [...] absent right pleural sounds) - CT 10/23/19 ([facility]): Technically suboptimal exam, allowing for [...] (held 04/30 per pt request and clinical ASPP), 05/26/20 - CT CAP 06/05/20: Suggestion of [...] 08/21/20 -> new stent placed - FOLFIRI 09/01 Past Medical, Surgical, Family, Social History: unchanged [...] Sulfate ER 15 MG T12A Take 1 Tab by mouth every 12 hours. 60 Each [...] abdominal pain (managed well with MSER and [place]). Negative for bloodin stool, constipation, diarrhea, nausea and vomiting. Genitourinary: Negative for frequency and urgency. Musculoskeletal: Positive for joint pain (chronic). Skin: Negative. Neurological: Positive for sensory change (mild numbness in feet and fingers, stable). Negative for seizures. Endo/Heme/Allergies: Negative. Psychiatric/Behavioral: Negative. BP 94/61 (BP Location: left arm, Patient Position: Sitting, Cuff Size: large) | Pulse 137 | Temp 98.3 F (36.8 C) (Oral) | Ht 5' 11" (1.803 m) | Wt 261 lb 3.2 oz (118.5 kg) | BMI 36.43 kg/m Wt Readings from Last 3 Encounters: 09/01/20 261 lb 3.2 oz (118.5 kg) 08/18/20 257 lb 11.2 oz (116.9 kg) 08/11/20 276 lb 3.2 oz (125.3 kg) Physical Exam Constitutional: He is oriented [...] wheezes. He has no rales. Port CDI Decreased breath sounds R lung Abdominal: Soft. Bowel sounds are normal. There is no abdominal tenderness. There is no rebound and no guarding. Musculoskeletal: General: Edema (minimal) present. Normal range of motion. Cervical back: [...] HPI): Lab Results Component Value Date WBC 14.7 (H) 08/18/2020 HGB 9.2 (L) 08/18/2020 HCT 32.3 (L) 08/18/2020 MCV 85.2 08/18/2020 PLT 479 (H) 08/18/2020 Lab Results Component Value Date ALT 9 08/18/2020 AST 19 08/18/2020 ALKPHOS 98 08/18/2020 BILITOT 0.4 08/18/2020 Lab Results Component Value Date CREATININE 0.64 (L) 08/18/2020 BUN 11 08/18/2020 NA 140 08/18/2020 K 4.6 08/18/2020 CL 103 08/18/2020 CO2 35 (H) 08/18/2020 Lab Results Component Value Date CEA 176.0 (H) 08/18/2020 Assessment/Plan: 1) biopsy-proven stage IV pMMR KRAS MUT L-sided colon cancer with malignant pleural effusion and malignant ascites (both cytology-proven). Delayed by insurance, of which he obtained October 2018. CT CAP 10/05/18 showed PD -> FOLFOX (copay for xeloda too high) -> [place] after 5 cycles with nice reduction in [...] admission 04/22/20. CT while an inpt at [facility] 08/14/20 showed stable to slightly worse disease (I reviewed the images) - cont FOLFIRI - will check CEA today. If yet higher, will switch back to FOLFOX - zofran prn - cont f/u with [...] to #1 - MSER 15 q12h + [place] prn 9) ANASTACIO, not currently, using CPAP 10) Afib/CHF - cont f/u with cardiology RTC 2 weeks Kyle Hernandez M.D. Kalin Muñized Professor Azam Falcon [facility] RBOARD BOX MAKER documented in this encounter Plan of Treatment Date Type Specialty Care Team Description 09/01/2020 Hospital Encounter Infusion Center 6, [facility] Chair [address], [address] [place], [place] [address] 09/03/2020 Appointment Infusion Center 10, [facility] [address], [address] [place], [place] [address] 09/15/2020 Appointment Infusion Center 10, [facility] [address], [address] [place], [place] [address] 09/17/2020 Appointment Infusion Center 4, [facility] [address], [address] [place], [place] [address] 09/29/2020 Appointment Infusion Center 15, [facility] Chair [address], [address] [place], [place] [address] 10/01/2020 Appointment Infusion Center 20, [facility] Chair 11/05/2020 Office Visit Cardiology Kelly Lobo MD [address] [facility] [address] [place], [place] [address] Health Maintenance Due Date Last Done [...] filedocumented in this encounter Visit Diagnoses Diagnosis Cancer related pain Neoplasm related pain (acute) (chronic) Colon cancer metastasized to multiple si elissa (HCCode) - Primary Malignant neoplasm of colon, unspecified site documented in this encounter Insurance Payer Benefit Plan / Subscriber ID Effective Dates Phone Addre ss Type Group [facility] PRAVEENR - [id number] 2018-Present [address] [place] [address] documented as of this encounter
--- OUTSIDE RECORDS SUMMARY | 2020-11-01 22:16 | XMS REPORT | Summary of Care ---
:1960 Author Organization [facility] [place] [address] Care Team Providers Name Role Phone Graham Goodwin MD Primary Care Provider Reason for Visit Reason Comments Follow Up Encounter Details Date Type Department Care Team Description 10/09/2020 Office Visit [facility] Tarun Rai MD Follow Up Thoracic Surgery [address] [place] [address] [address], [address] [place] [address] [place] [address] [phone] Allergies No Known Active Allergiesdocumented as of this encounter (statuses as of 10/12/2020) Medications Medication Sig Dispensed Refills Start End Date Status Date docusate sodium Take 1 Cap by 60 [...] MIX 70/30 FLEXPEN) (70-30) 100 UNIT/ML SUPN aspirin EC 81 MG Take 81 mg by 0 10/26/19 Active TBEC mouth. 0 21 Ergocalciferol Take by mouth. 0 Active (VITAMIN D2) 10 MCG (400 UNIT) TABS Tamsulosin HCl 0.4 TAKE 1 CAPSULE 90 Cap 1 Active MG CAPSIndications: BY MOUTH EVERY 0 Benign prostatic DAY hyperplasia with urinary frequency potassium chloride Take 1 Tab by 60 [...] 0 tablet MOUTH 30 MINS BEFORE SEX. Morphine Sulfate ER Take 1 Tablet 60 Each 0 Active 15 MG by mouth every 0 [id number]: 12 hours. Cancer related pain gabapentin Take 300 mg by 0 10/16/19 Acti ve (NEURONTIN) 300 MG mouth daily. 0 21 capsule cyclobenzaprine Take 10 mg by 0 10/09/19 Discontinued (FLEXERIL) 10 MG mouth 3 times 21 (*Therapy tablet daily as needed comp leted) for Muscle spasms. ondansetron Take 1 Tab by 30 Tab 3 10/09/19 Disc ontinued (ZOFRAN) 8 mg mouth every 8 9 21 (* Therapy tablet hours as completed) needed. For chemotherapy-in duced nausea [facility] PURELAX TAKE 17 G BY 510 g 2 10/09/19 Disco ntinued powderIndications: MOUTH DAILY 9 21 (*Therapy Colon cancer NEEDED WITH compl eted) metastasized to WATER OR JUICE multiple sites (HCCode) furosemide (LASIX) Take 40 mg by 0 0 Discontinued 20 MG tablet mouth two times 0 21 ( *Therapy daily. completed) promethazine Take 1 Tab by 30 Tab 2 10/09/19 Dis continued (PHENERGAN) 12.5 MG mouth every 6 0 21 (*Therapy tablet hours as needed comp leted) for Nausea. linaGLIPtin 5 MG Take 5 mg by 30 Tab 0 10/09/19 Discontinued TABSIndications: mouth daily. 0 21 (*Therapy Non-insulin complete d) dependent type 2 diabetes mellitus (HCCode) Enoxaparin Sodium Inject 1 60 Syringe 6 10/09/19 D iscontinued 120 MG/0.8ML Syringe into 0 21 (*Th erapy SOLNIndications: the skin every completed) Colon cancer 12 hours. metastasized to multiple sites (HCCode), VTE (venous thromboembolism) hydrocodone-acetami Take 1 Tablet 120 Tablet 0 10/09 Discontinued nophen (NORCO) by mouth every 0 21 (*Therapy 10-325 MG per 6 hours as compl eted) tabletIndications: needed for Cancer related pain Pain. Eprescribed documented as of this encounter (statuses as of 10/12/2020) Active Problems Problem Noted Date Non-insulin dependent type 2 diabetes mellitus (HCCode ) 05/23/2019 Colon cancer metastasized to multiple sites (HCCode) 1 documented as of this encounter (statuses as of 10/12/2020) Immunizations Name Administration Dates Next Due Influenza Quad-PF 07/31/2020 documented as of this encounter Social History Tobacco Use Types Packs/Day Years Used Date Former Smoker Cigarettes 11 01 1973 - 007 Smokeless Tobacco: Former User [...] in contact with Yes 10/09/2020 9:05 AM REIMBURSEMENT SPEC someone who was confirmed or suspected to have Coronavirus / COVID-19? documented as of this encounter Last Filed Vital Signs Vital Sign Reading Time Taken Comments Blood Pressure 130/66 10/09/2020 8:49 AM REIMBURSEMENT SPEC Pulse 90 10/09/2020 8:49 AM REIMBURSEMENT SPEC Temperature 37 C (98.6 F) 10/09/2020 8:49 AM REIMBURSEMENT SPEC Respiratory Rate - - Oxygen Saturation - - Inhaled Oxygen Concentration - - Weight 116.6 kg (257 lb) 10/09/2020 8:49 AM REIMBURSEMENT SPEC Height 180.3 cm (5' 11") 10/09/2020 8:49 AM REIMBURSEMENT SPEC Body Mass Index 35.84 10/09/2020 8:49 AM REIMBURSEMENT SPEC documented in this encounter Patient Instructions Patient InstructionsTaylorBonny MA - 10/09/2020 9:02 AM CSTYour Body mass index is 35.84 [...] Where can you learn more? Go to [email or web address] Go to the Search tab with the magnifying glass on the right side of [facility] home page. Enter S176 in the search box to learn more about "Body Mass Index: Care Instructions." We discussed that you are at risk for falling. Our goal is to prevent a fall that might seriously affect your wellbeing. We agreed to the following plan(s): Keep recommended follow up appointment to see how you are doing Where can you learn more? Go to [email or web address] Go to the Search tab with the magnifying glass on the right side of [facility] home page. Enter G117 in the search box to learn more about "Preventing Falls: Care Instructions." BURSEMENT SPEC documented in this encounter Progress Notes Tarun Rai MD - 10/09/2020 9:45 AM CSTThoracic Surgery Attending Note I, Dr. Tarun Rai, personally performed the services described in this documentation, ascribed by Rina Mcelroy, Thoracic Surgery SYSTEM PROGRAMMER, in my presence, and it is both [...] on Augmentin for a community acquired pneumonia. He returns for his first postoperative visit. His dyspnea is unchanged. His post-surgical pain is controlled. He has no particular complaints. On exam, there is superficial breakdown of his anterior port site. There is no surrounding erythemaor induration. Studies: Chest xray (10/09/2019). Images reviewed by me. Stable postoperative appearance. Improved aeration of the right upper lung field. In summary, Mr. Gonzalez is a 59 year old man with a colon cancer and right pleural disease. His lungis entrapped. There is no free-flowing fluid for drainage. His lung will not expand or collapse further without a thoracotomy and decortication which is not in his best interest. I recommend no further intervention at this time. He is scheduled to see Dr. Loredo next week. He will followup next week with the APPs next week when he returns for oncology follow-up for a wound check. We recommend dry daily dressing changes. Tarun Rai M.D. Rina De Leon NP-C - 10/09/2020 9:45 AM CST [facility] FOLLOW UP REASON FOR VISIT: Post-op visit SUBJECTIVE: Shai Gonzalez Jr. is a 59 y.o. male here for post-op follow up s/p Right thoracoscopic partial decortication and pleural biopsy on 09/30/20. Shai Gonzalez is a 59 y.o. 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 Pt was recently admitted to [facility] 08/20 - 08/22/20 for recurrent large bowel obstruction due to tumor ingrowth into prior sigmoid colon stent s/p c-scope and new stent placement 08/21. He reports that he is still taking therapeutic lovenox with his history of cancer and multiple PEs. Hospital Course/Significant Finding: Patient underwent R VATS partial decortication and pleural biopsy on 09/30/2020. The planned pleurx catheter was unable to be placed. He tolerated the procedure well, was extubated in the OR, and was admitted to [facility] for post operative care. He was noted to have Rlung infiltrates on CT scan, and was prescribed a 1 week course of Augmentin. His ChT was removed onPOD 2 after high output resolved, with post pull stable imaging. He was transitioned to PO pain medsand instructed to follow up closely with Dr. Rai and Dr. Hernandez. By day of discharge, patient was afebrile/vital signs stable, tolerating regular diet, voiding freely, passing flatus, ambulating, and pain was controlled with po pain meds. REVIEW OF SYSTEMS: 14 point review of symptoms is negative except for the complaints noted above. PHYSICAL EXAM: Blood pressure 130/66, pulse 90, temperature 98.6 F (37 C), temperature source Oral, height 5' 11" (1.803 m), weight 257 lb (116.6 kg). [...] well approximated and healed. Right chest tube incision slightly open and sanguinous drainage noted. Abdomen is soft, nontender, and non distended. No upper extremity swelling or clubbing. No lower extremity edema. Skin exam is normal. Neurologic exam is nonfocaland gait is normal. PROCEDURE: 09/30/20: NAME OF OPERATION: Right thoracoscopic partial decortication and pleural biopsy. PATHOLOGY: 09/30/20: DIAGNOSIS A. PLEURA, RIGHT, BIOPSY: MODERATELY DIFFERENTIATED ADENOCARCINOMA. SEE DIAGNOSTIC COMMENT. B. PLEURA, RIGHT, BIOPSY: MODERATELY DIFFERENTIATED ADENOCARCINOMA. Signing Pathologist Direct Phone Line: [phone] at 0940 COMMENT Immunohistochemical studies performed on block A2 demonstrate the tumor cells to be positive for CK20 and CDX2. They are negative for CK7 and TTF1. The immunophenotypic as well as the morphologic findings are compatible with an adenocarcinoma of colonic origin. INTERIM STUDIES: CXR (10/09/20): IMPRESSION: Likely scarring/atelectasis at the right lung base with moderate size right pleural effusion. Slight improved aeration of the right lung when compared with the prior exam. The left lung is clear. CT Chest 09/30/20: IMPRESSION: Complex loculated malignant effusion in the [...] lymph nodes also concerning for metastatic disease. IMPRESSION & RECOMMENDATIONS: Shai Gonzalez Jr. is a 59 y.o. male with metastatic colon cancer with large right malignant pleural effusion. s/p Right thoracoscopic partial decortication and pleural biopsy on 09/30/20. Intra op he was noted to have necrotic tumor,biopsy positive for moderately differentiated adenocarcinoma compatible with adenocarcinoma of colonic origin. His chest tube site slightly open and oozing sanguinous drainage. Dressing changed and dressing applied. Reviewed path and chest xray results. He has appointment with on 10/13/20. He will continue oncologic care with . He will RTC on Tuesday for follow up with REBECCA's for wound care check. He will call us with any questions, concerns or RTC as needed for follow up. He agreed and voiced understanding of the plan. was given enough opportunity to ask questions and were answered up to his satsifaction. I, Rina Mcelroy, MIREILLEC, am scribing for, and in the presence of, Dr. Rai. GABRIEL Leblanc Thoracic Surgery BURSEMENT SPEC documented in this encounter Plan of Treatment Date Type Specialty Care Team Description 10/13/2020 Office Visit Thoracic Surgery Rina Mcelroy NP-C [address] [facility] [address] [place], [place] [address] 10/13/2020 Office Visit Hematology and Oncology Kyle Hernandez MD [address] [place], [place] [address] [phone] 10/13/2020 Appointment Infusion Center 4, [facility] Chair [address], [address] [place], [place] [address] 10/15/2020 Appointment Infusion Center 7, [facility] [address], [address] [place], [place] [address] 10/27/2020 Appointment Infusion Center 7, [facility] [address], [address] [place], [place] [address] 10/29/2020 Appointment Infusion Center 2, [facility] Chair [address], [address] [place], [place] [address] 11/05/2020 Office Visit Cardiology Kelly Lobo MD [address] [address] 0 [phone] Health Maintenance Due Date Last Done Comments COVID-19 Vaccine Evaluation 1960 TETANUS SHOT (ADULT) 12/12/1975 ANNUAL DIABETIC FOOT EXAM 1978 ANNUAL DIABETIC RETINOPATHY 1978 SCREENING HEPATITIS C SCREENING 1978 HIV SCREENING 1978 ZOSTER VACCINE (1 of 2) 2010 A1C TESTING EVERY 6 MONTHS 10/25/2020 04/24/2020, 05/07/2019 BMI FOLLOW UP PLAN 10/09/2021 10/09/2020, 09/18/2020 COLON CANCER SCREENIN09/11/2028 09/11/2018, COLONOSCOPY 07/18/2018, 07/15/2018 FLU VACCINE > 6 MONTHS Completed 07/31/2020, 08/02/2018 HPV VACCINE Aged Out No longer eligib [place] based on patient's age to complete [facility] to [facility] documented as of this encounter Results Not on filedocumented in this encounter Visit Diagnoses Diagnosis Malignant pleural effusion - Primary documented in this encounter Insurance Payer Benefit Plan / Subscriber ID Effective Dates Phone Addre ss Type Group [facility] PRAVEENR - [id number] 2018-Present [address] [place] [address] documented as of this encounter
--- OUTSIDE RECORDS SUMMARY | 2020-11-01 22:16 | XMS REPORT | Summary of Care ---
:1960 Author Organization [facility] [place] [address] Care Team Providers Name Role Phone Graham Goodwin MD Primary Care Provider Reason for Visit Reason Comments Follow Up Encounter Details Date Type Department Care Team Description [facility] Azam Falcon [address] [place], [place] [id number] [address] [facility] [phone] 7th Floor, [address] [place] [address] Allergies No Known Active Allergiesdocumented as of this encounter (statuses as of 10/13/2020) Medications Medication Sig Dispensed Refills Start Date [...] Tablet by 60 Each 0 020 Active [id number]: Cancer mouth every 12 related pain hours. [...] as of this encounter (statuses as of 10/13/2020) Active Problems Problem Noted Date Non-insulin dependent type 2 diabetes mellitus (HCCode ) 05/23/2019 Colon cancer metastasized to multiple sites (HCCode) 1 documented as of this encounter (statuses as of 10/13/2020) Immunizations Name Administration Dates Next Due Influenza [...] in contact with Yes 10/09/2020 9:05 AM DIESEL POWERPLANT MECHANIC HELPER someone who was confirmed or suspected to have Coronavirus / COVID-19? documented as of this encounter Last Filed Vital Signs Vital Sign Reading Time Taken Comments Blood Pressure 105/57 10/13/2020 9:31 AM DIESEL POWERPLANT MECHANIC HELPER Pulse 84 10/13/2020 9:31 AM DIESEL POWERPLANT MECHANIC HELPER Temperature 36.9 C (98.4 F) 10/13/2020 9:31 AM DIESEL POWERPLANT MECHANIC HELPER Respiratory Rate - - Oxygen Saturation - - Inhaled Oxygen Concentration - - Weight 117.9 kg (260 lb) 10/13/2020 9:31 AM DIESEL POWERPLANT MECHANIC HELPER Height 180.3 cm (5' 11") 10/13/2020 9:31 AM DIESEL POWERPLANT MECHANIC HELPER Body Mass Index 36.26 10/13/2020 9:31 AM DIESEL POWERPLANT MECHANIC HELPER documented in this encounter Patient Instructions Patient InstructionsAlex Barron - 10/13/2020 9:40 AM DIESEL POWERPLANT MECHANIC HELPER [facility] SECTION OF ONCOLOGY/HEMATOLOGY [phone] FAX [phone] Please note that all labs and or imaging results will be discussed at the next office visit unless told otherwise. if a problem occurs after hours please contact our office and have physician securities consultant paged [phone] Patient Instructions: (to be completed before next visit) Return to clinic in 2 weeks Will plan for this cycle and [address] scan Will call in pain medication refill Please don't hesitate to call if you have any questions or concerns before your appt. TELL US ABOUT YOUR EXPERIENCE You may receive an email or letter from [facility] via our partner, [employer]. This is a survey about your experience today. Your feedback is important to us so we can improve. If any question does not apply to your visit, please leave it blank. Our goal is to ensure you have an exceptional experience at [facility]. If for any reason you cannot rate your experience as very good, please let a member of our staff know so wecan make immediate improvements. Thanks Alex Barron CMA EL POWERPLANT MECHANIC HELPER documented in this encounter Progress Notes BennettMiguel bajwa, SALES/MARKETING - 10/13/2020 9:40 AM CST Patient: Shai Gonzalez Jr. 1960 59 y.o. with stage IV colon cancer diagnosed at [facility], here for f/u 10/13/2020: Presents to clinic to consider continuing FOLFOX. S/p thoracotomy on 09/30. Continues to be fatigued with SAPP and at rest, on O2. Pain increased primarily to incision site, taking [place] on PRN basis 4 times per day with continued MSER. Worsening constipation, has been out of Miralax. Worsening neuropathy to fingers, some difficulty with dexterity. No CP, no N/V, no F/C/NS. ECOG PS 2 Course summary: - admitted to [facility] for obstipation - cScope 07/15/18 ([email or web address]@ [facility]): A malignant-appearing, intrinsic severe stenosis measuring 3 mm (inner diameter) was found in the descending colon and was non-traversed. This was stented with a 25 mm x 87 mm Ultraflex Precision stent under fluoroscopic guidance. Estimated blood loss was minimal. - CEA 766 on 07/15/18 - CT CAP 07/17/18 ([facility]): Metallic stent in the descending colon. No [...] cells - R thoracentesis 07/17/18 ([facility]): 1043 WBC, 9500 RBCs; fluid not sent for cytology. Protein 5, albumin 2.9 - paracentesis 07/18/18: cytology + for adenoCA - cScope 07/18/18: partially obstructing descending colon mass with stent in place - R chest port 07/19/18, was supposed to start chemo but lost insurance - admitted to [facility] in Sep 2018 for LBO -> cScope [...] No obstruction. - FOLFOX #1 10/24, #2 /, #3 11/20, #4 12/04/18, #5 12/18/18 - [...] absent right pleural sounds) - CT 10/23/19 ([facility]): Technically suboptimal exam, allowing for this limitation, [...] -> new stent placed - FOLFIRI 09/01 - FOLFOX 09/15 (switched due to rising CEA, more SOB) - 09/30/2020 R thoracoscopic exploration: R pleural biopsy: positive for adenocarcinoma; no free flowing fluid for drainage; advised against a thoracotomy per Dr. Rai - FOLFOX 10/13/2020 Past Medical, Surgical, Family, Social History: unchanged Past Medical History: Diagnosis Date Asthma Colon cancer (HCCode) HBP (high blood pressure) No Known Allergies Current Outpatient Medications Medication Sig Dispense Refill aspirin EC 81 MG TBEC Take 81 mg by mouth daily. docusate sodium (COLACE) 100 MG capsule Take 1 Cap by mouth two times daily. 60 Cap 3 Enoxaparin Sodium 120 MG/0.8ML SOLN Inject into the skin two times daily. Ergocalciferol (VITAMIN D2 OR) Take 50,000 Units by mouth every 30 days. furosemide (LASIX) 40 MG tablet Take 40 mg by mouth two times daily. gabapentin (NEURONTIN) 300 MG capsule Take 300 mg by mouth 3 times daily. glimepiride (AMARYL) 4 MG tablet Take 1 Tab by mouth every morning. (Patient taking differently:Take 4 mg by mouth two times daily.) 90 Tab 3 hydrocodone-acetaminophen (NORCO) 10-325 MG per tablet Take 1 Tablet by mouth every 6 hours as needed for Pain. Insulin Aspart Prot & Aspart (NOVOLOG MIX 70/30 FLEXPEN) (70-30) 100 UNIT/ML SUPN Inject 30 Units into the skin. lidocaine-prilocaine (EMLA) 2.5-2.5 % cream Apply 1 application topically as needed. 30 g 3 metoprolol (LOPRESSOR) 50 MG tablet Take 50 mg by mouth two times daily. Morphine Sulfate ER 15 MG T12A Take 1 Tablet by mouth every 12 hours. 60 Each 0 potassium chloride SA (K-DUR, KLOR-CON M20) 20 MEQ tablet Take 1 Tab by mouth two times daily. 60 Tab 6 sildenafil citrate (VIAGRA) 100 MG tablet TAKE ONE (1) TABLET(S) BY MOUTH 30 MINS BEFORE SEX. Tamsulosin HCl 0.4 MG CAPS TAKE 1 CAPSULE BY MOUTH EVERY DAY 90 Cap 1 No current facility-administered medications for this visit. Review of Systems Constitutional: Negative for chills, fever and weight loss. HENT: Negative. Eyes: Negative. Respiratory: Positive for shortness of breath (stable). Negative for cough. Chest wall pain s/p thoracotomy Cardiovascular: Positive for orthopnea (chronic (ANASTACIO)) and leg swelling (chronic (mild), R>L, mild now). Gastrointestinal: Positive for abdominal pain (managed well with MSER and [place]). Negative for bloodin stool, constipation (normal stools since stent placed), diarrhea, nausea and vomiting. Genitourinary: Negative for frequency and urgency. Musculoskeletal: Positive for joint pain (chronic). Skin: Negative. Neurological: Positive for sensory change (mild numbness in feet, worse in fingers, some difficulty with fine dexterity). Negative for seizures. Endo/Heme/Allergies: Negative. Psychiatric/Behavioral: Negative. BP 105/57 (BP Location: left arm, Patient Position: Sitting, Cuff Size: regular) | Pulse 84 | Temp98.4 F (36.9 C) (Oral) | Ht 5' 11" (1.803 m) | Wt 260 lb (117.9 kg) | BMI 36.26 kg/m Wt Readings from Last 3 Encounters: 10/13/20 260 lb (117.9 kg) 10/13/20 260 lb (117.9 kg) 10/09/20 257 lb (116.6 kg) Physical Exam Constitutional: He is oriented to person, place, and time and well-developed, well-nourished, and inno distress. No distress. Alone today on O2. HENT: Head: Normocephalic and atraumatic. Right Ear: External ear normal. Left Ear: External ear normal. Eyes: Conjunctivae and EOM are normal. No scleral icterus. Cardiovascular: Normal rate, regular rhythm and normal heart sounds. tachycardic Pulmonary/Chest: No tachypnea. He has no decreased breath sounds. He has no wheezes. He has no rales. Port CDI Absent breath sounds R lung Abdominal: Soft. Bowel [...] HPI): Lab Results Component Value Date WBC 13.2 (H) 10/13/2020 HGB 8.1 (L) 10/13/2020 HCT 28.4 (L) 10/13/2020 MCV 83.3 10/13/2020 PLT 484 (H) 10/13/2020 Lab Results Component Value Date ALT 6 10/13/2020 AST 20 10/13/2020 ALKPHOS 98 10/13/2020 BILITOT 0.3 10/13/2020 Lab Results Component Value Date CREATININE 0.66 (L) 10/13/2020 BUN 9 10/13/2020 NA 142 10/13/2020 K 4.6 10/13/2020 CL 104 10/13/2020 CO2 33 (H) 10/13/2020 Lab Results Component Value Date CEA PENDING 10/13/2020 Assessment/Plan: 1) biopsy-proven stage IV pMMR KRAS MUT L-sided colon cancer with malignant pleural effusion and malignant ascites (both cytology-proven). Delayed by insurance, of which he obtained October 2018. CT CAP 10/05/18 showed PD -> FOLFOX (copay for xeloda too high) -> IN after 5 cycles with nice reduction in [...] admission 04/22/20. CT while an inpt at [facility] 08/14/20 showed stable to slightly worse disease (I reviewed the images) - Switch to FOLFOX (inlight of recent CT, rising CEA, and more SOB) - zofran prn - cont f/u with Dr. Hewitt 2) SOB/R pleural effusion/vol overload, multifactorial (Afib/RVR, R plerual effusion with + cytology, Bilateral PEs) - Now s/p thoracotomy 09/30/[address] Rai - No free flowing fluid - lung entrapped by tumor, biopsies positive for carcinoma. Not a candidate for thoracotomy or decortication 3) obstruction of descending colon s/p stent [...] to #1 - MSER 15 q12h + [place] prn 9) ANASTACIO, not currently, using CPAP 10) Afib/CHF - cont f/u with cardiology RTC 2 weeks Discussed with KAVE[facility] documented in this encounter Plan of Treatment Date Type Specialty Care Team Description 10/15/2020 Office Visit Thoracic Surgery Rina Mcelroy NP-C [address] [place], [place] [address] [phone] 10/15/2020 Appointment Infusion Center , [facility] Chair [address] [facility] 7th Floor, [address] [place], [place] [address] 10/27/2020 Office Visit Hematology and Oncology Shonna Bennett NP [address] [facility] 7th Floor, [address] [place], [place] [address] [phone] 10/27/2020 Appointment Infusion Center 7, [facility] Chair [address], [address] [place], [place] [address] 10/29/2020 Appointment Infusion Center 2, [facility] Chair [address], [address] [place], [place] [address] 11/05/2020 Office Visit Cardiology Kelly Lobo MD [address] [place], [place] [address] [phone] Health Maintenance Due Date Last Done Comments [...] Effective Dates Phone Addre ss Type Group [facility] - [id number] 2018-Present [address] [place] [address] documented as of this encounter
--- OUTSIDE RECORDS SUMMARY | 2020-11-01 22:16 | XMS REPORT | Summary of Care ---
:1960 Author Organization [facility] [place] [address] Care Team Providers Name Role Phone Graham Goodwin MD Primary Care Provider Reason for Visit Reason Comments Post-op Follow-up wound check; pad very soaked and blood colored Medication Question brought all his daily pill b ottles/injectables to update his med list Encounter Details Date Type Department Care Team Description 10/13/2020 Office Visit [facility] Rina Mcelroy Post-op F ollow-up Medicine Thoracic MIREILLE GranadosC (wound check; pad very Surgery [address] soaked and blood [address] [facility] [address] colored); Medication 6th Floor, [address] [place] [address] Question ([place] [address] his daily pill [phone] bottles/injecta bles to (Fax) update his med list) Allergies No Known Active Allergiesdocumented as of this encounter (statuses as of 10/14/2020) Medications Medication Sig Dispensed Refills Start Date [...] 10/13/2020 Insulin Aspart Prot & Inject 30 0 06/22/2019 Active Aspart (NOVOLOG MIX Units into the 70/30 FLEXPEN) skin. (70-30) 100 UNIT/ML SUPN aspirin EC 81 MG TBEC Take 81 mg by 0 10/27/201926/11 Active mouth daily. 021 Tamsulosin HCl 0.4 MG TAKE 1 CAPSULE 90 Cap 1 04/28/2020 Active CAPSIndications: BY MOUTH EVERY Benign prostatic DAY hyperplasia with urinary frequency potassium chloride SA Take 1 Tab by 60 Tab 6 07/28/2020 Active (K-DUR, KLOR-CON M20) mouth two 20 MEQ times daily. tabletIndications: Hypokalemia sildenafil citrate TAKE ONE (1) 0 09/06/2020 Active (VIAGRA) 100 MG TABLET(S) BY tablet MOUTH 30 MINS BEFORE SEX. Morphine Sulfate ER Take 1 Tablet 60 Each 0 09/29/2020 Active 15 MG by mouth every [id number]: 12 hours. Cancer related pain gabapentin Take 300 mg by 0 10/02/2020 Act annabelle (NEURONTIN) 300 MG mouth 3 times 021 capsule daily. Ergocalciferol Take 50,000 0 Act annabelle (VITAMIN D2 OR) Units by mouth every 30 days. Enoxaparin Sodium 120 Inject into 0 Active MG/0.8ML SOLN the skin two times daily. hydrocodone-acetamino Take 1 Tablet 0 Active phen (NORCO) 10-325 by mouth every MG per tablet 6 hours as needed for Pain. furosemide (LASIX) 40 Take 40 mg by 0 Active MG tablet mouth two times daily. metoprolol Take 50 mg by 0 Activ e (LOPRESSOR) 50 MG mouth two tablet times daily. Ergocalciferol Take by 0 Disco ntinued (Dose (VITAMIN D2) 10 MCG mouth. 021 adjustment) (400 UNIT) TABS metoprolol Take 1 Tablet 180 Tablet 3 08/19/2020 Dis continued (LOPRESSOR) 25 MG by mouth two 021 (*Duplicate tabletIndications: times daily. medication) Essential hypertension, benign, Atrial fibrillation, unspecified type (HCCode), SOB (shortness of breath) documented as of this encounter (statuses as of 10/14/2020) Active Problems Problem Noted Date Non-insulin dependent type 2 diabetes mellitus (HCCode ) 05/23/2019 Colon cancer metastasized to multiple sites (HCCode) 1 documented as of this encounter (statuses as of 10/14/2020) Immunizations Name Administration Dates Next Due Influenza [...] in contact with Yes 10/09/2020 9:05 AM RADIOLOGY PRACTITIONER ASSISTANT someone who was confirmed or suspected to have Coronavirus / COVID-19? documented as of this encounter Last Filed Vital Signs Vital Sign Reading Time Taken Comments Blood Pressure 105/57 10/13/2020 8:53 AM RADIOLOGY PRACTITIONER ASSISTANT Pulse 84 10/13/2020 8:53 AM RADIOLOGY PRACTITIONER ASSISTANT Temperature 36.9 C (98.4 F) 10/13/2020 8:53 AM RADIOLOGY PRACTITIONER ASSISTANT Respiratory Rate 20 10/13/2020 8:53 Pulse Oximeter 100% AM RADIOLOGY PRACTITIONER ASSISTANT on 4L Oxygen Oxygen Saturation - - Inhaled Oxygen - - Concentration Weight 117.9 kg (260 lb) 10/13/2020 8:53 AM RADIOLOGY PRACTITIONER ASSISTANT Height 180.3 cm (5' 11") 10/13/2020 8:53 AM RADIOLOGY PRACTITIONER ASSISTANT Body Mass Index 36.26 10/13/2020 8:53 AM RADIOLOGY PRACTITIONER ASSISTANT documented in this encounter Progress Notes Rina Mcelroy NP-C - 10/13/2020 8:15 AM CST [facility] THORACIC SURGERY CLINIC FOLLOW UP REASON FOR VISIT: Post-op visit SUBJECTIVE: Shai Gonzalez Jr. is a 59 y.o. male here for post-op follow up s/p Right thoracoscopic partial decortication and pleural biopsy on 09/30/20. 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 Pt was recently admitted to [facility] 08/20 - 08/22/20 for recurrent large bowel obstruction due to tumor ingrowth into prior sigmoid colon stent s/p c-scope and new stent placement 08/21. He reports that he is still taking therapeutic lovenox with his history of cancer and multiple PEs. Hospital Course/Significant Finding:Patient underwent R VATS partial decortication and pleural biopsy on 09/30/2020. The planned pleurx catheter was unable to be placed. He tolerated the procedure well, was extubated in the OR, and was admitted to [facility] for post operative care. He was noted to have R lung infiltrates on CT scan, and was prescribed [...] for wound check. He reports that he is doing well but his chest tube sitehas been leaking bloody drainage. He is been changing dressing twice daily. Dressing get saturated when he is moving around. Denies any F/C. He is using 3-4 L NC based on his activity. He has appointment with today. REVIEW OF SYSTEMS: 14 point review of symptoms is negative except for the complaints noted above. PHYSICAL EXAM: Blood pressure 105/57, pulse 84, temperature 98.4 F (36.9 C), temperature source Oral, resp. rate 20, height 5' 11" (1.803 m), weight 260 lb (117.9 kg). Body mass index is 36.26 kg/m. Overall well-appearing, comfortable, and in no distress. No difficulty in climbing upon the exam room table. Sclera are anicteric and mucous membrane are moist. No evidence of cervical, supraclavicular, or axillary lymphadenopathy. Symmetric bilateral chest excursion, with no chest wall tenderness. Clear breath sounds in all posterior bilateral lung jha. Normal cardiac examination without murmurs or rubs. Right VATS and chest tube site incision clean dry and intact. No redness noted. Bloody drainage noted on the previous dressing. Abdomen is soft, nontender, and non distended. No upper extremityswelling or clubbing. No lower extremity edema. Skin exam is normal. Neurologic exam is nonfocal and gait is normal. PROCEDURE: 09/30/20: NAME OF OPERATION: Right thoracoscopic partial decortication and pleural biopsy. PATHOLOGY: 09/30/20: DIAGNOSIS A. PLEURA, RIGHT, BIOPSY: MODERATELY DIFFERENTIATED ADENOCARCINOMA. SEE DIAGNOSTIC COMMENT. B. PLEURA, RIGHT, BIOPSY: MODERATELY DIFFERENTIATED ADENOCARCINOMA. Signing Pathologist Direct Phone Line: [phone] at 0940 COMMENT Immunohistochemical studies performed on [...] adenocarcinoma compatible with adenocarcinoma of colonic origin. Previous dressing noted with bloody drainage. Chest tube site incision cleaned and 4x4 dressing applied. ABD pad applied. We will see him back on Tuesday to assess his wound. He agreed and voiced understanding of the plan. was given enough opportunity to ask questions and were answered up to his satisfaction. GABRIEL Leblanc Thoracic Surgery OLOGY PRACTITIONER ASSISTANT documented in this encounter Plan of Treatment Date Type Specialty Care Team Description 10/15/2020 Office Visit Thoracic Surgery Rina Mcelroy NP-C [address] [place] [address] [address] [place], [place] [address] 10/15/2020 Appointment Infusion Center 7, [facility] Chair [address] [facility] 7th Floor, [address] [place], [place] [address] 10/27/2020 Office Visit Hematology and Oncology Shonna Bennett NP [address] [facility] 7th Floor, [address] [place], [place] [address] 10/27/2020 Appointment Infusion Center 7, [facility] [address] [facility] 7th Floor, [address] [place], [place] [address] 10/29/2020 Appointment Infusion Center 2, [facility] [address] [facility] 7th Floor, [address] [place], [place] [address] 11/05/2020 Office Visit Cardiology Kelly Lobo MD [address] [place], [place] [address] [phone] Health Maintenance Due Date Last Done Comments [...] on patient's age to complete this to [facility] documented as of this encounter Results Not on filedocumented in this encounter Visit Diagnoses Diagnosis Postoperative dehiscence of skin wound, subsequent encounter - Primary documented in this encounter Insurance Payer Benefit Plan / Subscriber ID Effective Dates Phone Addre ss Type Group [facility] - [id number] 2018-Present [address] [place] [address] documented as of this encounter
--- OUTSIDE RECORDS SUMMARY | 2020-11-01 22:16 | XMS REPORT | Summary of Care ---
:1960 Author Organization [facility] [place] [address] Care Team Providers Name Role Phone Graham Goodwin MD Primary Care Provider Reason for Visit Reason Comments [facility] Encounter Details Date Type Department Care Team Description 08/11/2020 [facility]stud[facility] [address] [place], [place] [phone] [facility] [phone] 7th Floor, [address] [place] [address] Allergies No Known Active Allergiesdocumented as of this encounter (statuses as of 08/11/2020) Medications Medication Sig Dispensed Refills Start Date [...] two times 20 MEQ daily. tabletIndications: Hypokalemia Morphine Sulfate ER Take 1 Tab by 60 Each 0 07/28/2020 Active 15 MG mouth every 12 [id number]: hours. Cancer related pain hydrocodone-acetamino Take 1 Tab by 120 Tab 0 07/28/2020 Active phen (NORCO) 10-325 mouth every 6 MG per hours as needed tabletIndications: for Pain. Cancer related pain Eprescribed metoprolol Take 1 Tab by 60 Tab 3 07/30/2020 Acti ve (LOPRESSOR) 25 MG mouth two times tablet daily. Additional Information Patient taking differently: 75 mg ORAL DAILY, Reason: Patient's preference, Reported on 08/11/2020 documented as of this encounter (statuses as of 08/11/2020) Active Problems Problem Noted Date Non-insulin dependent type 2 diabetes mellitus (HCCode ) 05/23/2019 Colon cancer metastasized to multiple sites (HCCode) 1 documented as of this encounter (statuses as of 08/11/2020) Immunizations Name Administration Dates Next Due Influenza [...] Sign Reading Time Taken Comments Blood Pressure 130/82 08/11/2020 8:00 AM COGNOS BI ADMINISTRATOR Pulse 89 08/11/2020 8:00 AM COGNOS BI ADMINISTRATOR Temperature 36.7 C (98 F) 08/11/2020 8:00 AM COGNOS BI ADMINISTRATOR Respiratory Rate 22 08/11/2020 8:00 AM COGNOS BI ADMINISTRATOR Oxygen Saturation - - Inhaled Oxygen Concentration - - Weight 125.3 kg (276 lb 3.2 oz) 08/11/2020 8:00 AM COGNOS BI ADMINISTRATOR Height 180.3 cm (5' 11") 08/11/2020 8:00 AM COGNOS BI ADMINISTRATOR Body Mass Index 38.52 08/11/2020 8:00 AM COGNOS BI ADMINISTRATOR documented in this encounter Patient Instructions Patient InstructionsDimitrios Posada MA - 08/11/2020 8:00 AM COGNOS BI ADMINISTRATOR [facility] SECTION OF ONCOLOGY/HEMATOLOGY [phone] FAX [phone] Please note that all labs and or imaging results will be discussed at the next office visit unless told otherwise. if a problem occurs after hours please contact our office and have physician irrigationist designer paged [phone] Patient Instructions: (to be completed before next visit) Return to clinic in 2 weeks We will plan to get another scan after that appointment, unless we hear otherwise from Dr. Florez Please don't hesitate to call if you have any questions or concerns before your appt. TELL US ABOUT YOUR EXPERIENCE You may receive an email or letter from [facility] via our partner, [employer]. This is a survey about your experience today. Your feedback is important to us so we can improve. If any question does not apply to your visit, please leave it blank. Our goal is to ensure you have an exceptional experience at [facility]. If for any reason you cannot rate your experience as very good, please let a member of our staff know so wecan make immediate improvements. Thanks Dimitrios Posada MA OS BI ADMINISTRATOR documented in this encounter Progress Notes Miguel Bennett NP - 08/11/2020 8:00 AM CST Patient: Shai Gonzalez Jr. 1960 59 y.o. with stage IV colon cancer diagnosed at [facility], here for f/u 08/11/2020: Presents to clinic to continue treatment. Tolerating well. Some weight loss around 7 pounds since 2 weeks ago. Mostly appetite decrease combined with trying to eat better, avoiding sugar when he can. SAPP stable on O2 (up to 4L), Dr. Florez plans to either drain or place Pleur-X depending on scans. No CP, no N/V, no F/C/NS. Using miralax for constipation. ECOG PS 2 Course summary: - admitted to [facility] for obstipation - cScope 07/15/18 (Tasha@ [facility]): A malignant-appearing, intrinsic severe stenosis measuring 3 mm (inner diameter) was found in the descending colon and was non-traversed. This was stented with a 25 mm x 87 mm Ultraflex Precision stent under fluoroscopic guidance. Estimated blood loss was minimal. - CEA 766 on 07/15/18 - CT CAP 07/17/18 ([facility]): Metallic stent in the descending colon. No [...] cells - R thoracentesis 07/17/18 ([facility]): 1043 WBC, 9500 RBCs; fluid not sent for cytology. Protein 5, albumin 2.9 - paracentesis 07/18/18: cytology + for adenoCA - cScope 07/18/18: partially obstructing descending colon mass with stent in place - R chest port 07/19/18, was supposed to start chemo but lost insurance - admitted to [facility] in Sep 2018 for LBO -> cScope [...] aspect of the stent - FOLFOX #6 /, #7 01/15, #8 01/29 - 5FU/LV maintenance [...] absent right pleural sounds) - CT 10/23/19 ([facility]): Technically suboptimal exam, allowing for this limitation, [...] - FOLFIRI 06/11/20, 06/30/2020, 07/14/20, 07/28/20, 08/11/20 Past Medical, Surgical, Family, Social History: unchanged [...] metoprolol (LOPRESSOR) 25 MG tablet Take 1 Tab by mouth two times daily. 60 Tab 3 Morphine Sulfate ER 15 MG [...] Negative. Respiratory: Positive for shortness of breath (Stable - see HPI). Negative for cough. Cardiovascular: Positive for orthopnea (chronic (ANASTACIO)) and leg swelling (chronic (mild), R>L, improving). Gastrointestinal: Positive for abdominal pain (managed well with MSER and [place]) and constipation. Negative for blood in stool, diarrhea, nausea and vomiting. Genitourinary: Negative for frequency and urgency. Musculoskeletal: Positive for joint pain (chronic). Skin: Negative. Neurological: Positive for sensory change (mild numbness in feet and fingers, stable). Negative for seizures. Endo/Heme/Allergies: Negative. Psychiatric/Behavioral: Negative. BP 130/82 (BP Location: left arm, Patient Position: Sitting, Cuff Size: large) | Pulse 89 | Temp 98 F (36.7 C) (Oral) | Resp 22 | Ht 5' 11" (1.803 m) | Wt 276 lb 3.2 oz (125.3 kg) | BMI 38.52kg/m Wt Readings from Last 3 Encounters: 08/11/20 276 lb 3.2 oz (125.3 kg) 07/31/20 285 lb (129.3 kg) 07/30/20 283 lb (128.4 kg) Physical Exam Constitutional: He is oriented [...] Port CDI Decreased breath sounds R lung but improved from prior Abdominal: Soft. Bowel sounds are normal. There is no abdominal tenderness. There is no rebound and no guarding. Musculoskeletal: General: Edema (1+ BLE, R>L) present. Normal range of motion. Cervical back: [...] HPI): Lab Results Component Value Date WBC 4.1 08/11/2020 HGB 8.6 (L) 08/11/2020 HCT 30.3 (L) 08/11/2020 MCV 86.3 08/11/2020 PLT 392 08/11/2020 Lab Results Component Value Date ALT PENDING 08/11/2020 AST PENDING 08/11/2020 ALKPHOS PENDING 08/11/2020 BILITOT PENDING 08/11/2020 Lab Results Component Value Date CREATININE PENDING 08/11/2020 BUN PENDING 08/11/2020 NA PENDING 08/11/2020 K PENDING 08/11/2020 CL PENDING 08/11/2020 CO2 PENDING 08/11/2020 Lab Results Component Value Date CEA PENDING 08/11/2020 Assessment/Plan: 1) biopsy-proven stage IV pMMR KRAS MUT L-sided colon cancer with malignant pleural effusion and malignant ascites (both cytology-proven). Delayed by insurance, of which he obtained October 2018. CT CAP 10/05/18 showed PD -> FOLFOX (copay for xeloda too high) -> CO after 5 cycles with nice reduction in [...] Now with bilateral PE on admission 04/22/20. Most recent scan 06/05/20 shows mild PD in R pleural and peritoneal nodularity. - cont FOLFIRI, next today - will restage after next cycle - can try oxali again later if neuropathy improves and if cancer resistant to irinotecan; we are limited based on neuropathy (oxali) and TRAE mutation (EGFR inhib) - zofran prn - cont f/u with Dr. Hewitt 2) SOB/R pleural effusion/vol overload, multifactorial (Afib/RVR, R plerual effusion with + cytology, Bilateral PEs) - f/u cardiology (no appts so I will sen an inbasket) - PleurX removed. Dr. Florez wanting to coordinate scan for possible drain placement - Lovenox to 120 bid 3) near obstruction of descending colon s/p [...] 8) abdominal pain secondary to #1 - [place] prn (will stop MSER for now), using tid on average 9) ANASTACIO, not currently, using CPAP 10) Afib/CHF - cont f/u with cardiology RTC 2 weeks KAVEH Flor [facility] documented in this encounter Plan of Treatment Date Type Specialty Care Team Description 08/11/2020 Hospital Encounter Infusion Center 1, Bcc Chair Arrived [address] [place], [place] [address] 08/13/2020 Appointment Infusion Center 2, Bcc Chair [address], [address] [place], [place] [address] 08/25/2020 Office Visit Hematology and Kyle Hernandez MD Oncology [address] [place], [place] [address] 08/25/2020 Appointment Infusion Center 10, Bcc Chair [address], [address] [place], [place] [address] 08/27/2020 Appointment Infusion Center 15, Bcc Chair [address], [address] [place], [place] [address] 09/08/2020 Appointment Infusion Center 15, Bcc Chair [address], [address] [place] [address] 09/10/2020 Appointment Infusion Center 10, Bcc Chair [address], [address] [place], [place] [address] 09/22/2020 Appointment Infusion Center 12, Bcc Chair [address], [address] [place], [place] [address] 09/24/2020 Appointment Infusion Center 4, Bcc Chair [address], [address] [place], [place] [address] 11/05/2020 Office Visit Cardiology Kelly Lobo MD [address] [facility] [address] [place], [place] [address] Health Maintenance Due Date Last [...] on patient's age to complete this to [facility] documented as of this encounter Results [...] ss Type Group [facility] PRAVEENR - [id number] 2018-Present [address] [place] [address] documented as of this encounter
--- OUTSIDE RECORDS SUMMARY | 2020-11-01 22:17 | XMS REPORT | Summary of Care ---
:1960 Author Organization [facility] [place] [address] Care Team Providers Name Role Phone Graham Goodwin MD Primary Care Provider Reason for Referral Radiology Services (Routine) Status Reason Specialty Diagnoses / Procedures Referred By Benito hammonds Referred To Contact Pending Radiology Diagnoses Colon cancer metastasized to multiple sites (HCCode) Kyle Hernandez, Radiology, Daisy Procedures CT CHEST ABDOMEN PELVIS W CONTRAST [address] [place], [place] [address] [place] [address] Phone: Phone: [phone] Reason for Visit Reason Comments Follow Up [facility]ill [facility] Encounter Details Date Type Department Care Team Description [facility] Azam Morris NP ([facility]) [facility] [address] [facility] 7th Floor, [address] [facility] [address] 7th Floor, [address] [place] [address] [place] [address] [phone] Allergies No Known Active Allergiesdocumented as of this encounter (statuses as of 10/27/2020) Medications Medication Sig Dispensed Refills Start Date End Date Status docusate sodium Take 1 Cap by mouth 60 Cap 3 12/04/2018 Active (COLACE) 100 MG two times daily. capsule lidocaine-prilocaine Apply 1 application 30 g 3 9 Active (EMLA) 2.5-2.5 % topically as needed. cream Additional Information Patient not taking. Reason: Patient's preference, Reported on 10/27/2020 glimepiride (AMARYL) 4 MG Take 1 Tab by mouth every 90 Tab 3 05/23/2019 Active tablet morning. Additional Information Patient taking differently: 4 mg ORAL 2 TIMES DAILY, Reason: Patient's preference (patient said he takes BID), Reported on 10/13/2020 Insulin Aspart Prot & Inject 30 0 06/22/2019 Active Aspart (NOVOLOG MIX Units into the 70/30 FLEXPEN) (70-30) skin. 100 UNIT/ML SUPN Tamsulosin HCl 0.4 MG TAKE 1 CAPSULE 90 Cap 1 04/28/2020 Active CAPSIndications: BY MOUTH EVERY Benign prostatic DAY hyperplasia with urinary frequency potassium chloride SA Take 1 Tab by 60 Tab 6 07/28/2020 Active (K-DUR, KLOR-CON M20) mouth two 20 MEQ times daily. tabletIndications: Hypokalemia sildenafil citrate TAKE ONE (1) 0 09/06/2020 Active (VIAGRA) 100 MG tablet TABLET(S) BY MOUTH 30 MINS BEFORE SEX. Ergocalciferol Take 50,000 0 Act annabelle (VITAMIN D2 OR) Units by mouth every 30 days. Enoxaparin Sodium 120 Inject into 0 Active MG/0.8ML SOLN the skin two times daily. furosemide (LASIX) 40 Take 40 mg by 0 Active MG tablet mouth two times daily. metoprolol (LOPRESSOR) Take 50 mg by 0 Active 50 MG tablet mouth two times daily. Aspirin 81 MG tablet Take 81 mg by 0 Active mouth once. gabapentin (NEURONTIN) Take 300 mg by 0 Active 300 MG capsule mouth 3 times daily. Morphine Sulfate ER 30 Take 1 Tablet 60 Tablet 0 10/27/2020 Active MG TBCRIndications: by mouth every Colon cancer 12 hours. metastasized to multiple sites (HCCode) hydrocodone-acetaminop Take 1 Tablet 90 Tablet 0 10/27/2020 Active hen (NORCO) 10-325 MG by mouth every per tabletIndications: 8 hours as Colon cancer needed for metastasized to Pain. multiple sites (HCCode) Morphine Sulfate ER 15 Take 1 Tablet 60 Each 0 09/29/2020 Discontinued MG [id number]: by mouth every 021 Cancer related pain 12 hours. hydrocodone-acetaminop Take 1 Tablet 0 27/11 Discontinued hen (NORCO) 10-325 MG by mouth every 021 (Reorder) per tablet 6 hours as needed for Pain. hydrocodone-acetaminop Take 1 Tablet 90 Tablet 0 10/27/2020 Discontinued hen (NORCO) 10-325 MG by mouth every 021 (Reorder) per tabletIndications: 8 hours as Colon cancer needed for metastasized to Pain. multiple sites (HCCode) documented as of this encounter (statuses as of 10/27/2020) Active Problems Problem Noted Date Non-insulin dependent type 2 diabetes mellitus (HCCode ) 05/23/2019 Colon cancer metastasized to multiple sites (HCCode) 1 documented as of this encounter (statuses as of 10/27/2020) Immunizations Name Administration Dates Next Due Influenza Quad-PF 07/31/2020 documented as of this encounter Social History Tobacco Use Types Packs/Day Years Used Date Former Smoker Cigarettes 33 1973 - 007 Smokeless Tobacco: Former [...] in contact with Yes 10/09/2020 9:05 AM SIGNAL INTELLIGENCE ANALYST someone who was confirmed or suspected to have Coronavirus / COVID-19? documented as of this encounter Last Filed Vital Signs Vital Sign Reading Time Taken Comments Blood Pressure 146/75 10/27/2020 7:45 AM SIGNAL INTELLIGENCE ANALYST Pulse 90 10/27/2020 7:45 AM SIGNAL INTELLIGENCE ANALYST Temperature 36.6 C (97.9 F) 10/27/2020 7:45 AM SIGNAL INTELLIGENCE ANALYST Respiratory Rate - - Oxygen Saturation - - Inhaled Oxygen Concentration - - Weight 115.2 kg (254 lb) 10/27/2020 7:45 AM SIGNAL INTELLIGENCE ANALYST Height 180.3 cm (5' 11") 10/27/2020 7:45 AM SIGNAL INTELLIGENCE ANALYST Body Mass Index 35.43 10/27/2020 7:45 AM SIGNAL INTELLIGENCE ANALYST documented in this encounter Patient Instructions Patient InstructionsHiDimitrios jacob MA - 10/27/2020 7:30 AM SIGNAL INTELLIGENCE ANALYST [facility] SECTION OF ONCOLOGY/HEMATOLOGY [phone] FAX [phone] Please note that all labs and or imaging results will be discussed at the next office visit unless told otherwise. if a problem occurs after hours please contact our office and have physician loss prevention auditor paged [phone] Patient Instructions: (to be completed before next visit) - Infusion today - Return to clinic in [address] scan prior Please don't hesitate to call if you have any questions or concerns before your appt. TELL US ABOUT YOUR EXPERIENCE You may receive an email or letter from [facility] via our partner, [employer]. This is a survey about your experience today. Your feedback is important to us so we can improve. If any question does not apply to your visit, please leave it blank. Our goal is to ensure you have an exceptional experience at [facility]. If for any reason you cannot rate your experience as very good, please let a member of our staff know so wecan make immediate improvements. Thanks Dimitrios Posada MA. AL INTELLIGENCE ANALYST documented in this encounter Progress Notes Miguel Bennett NP - 10/27/2020 7:30 AM CST Patient: Shai Gonzalez Jr. 1960 59 y.o. with stage IV colon cancer diagnosed at [facility], here for f/u 10/27/2020: Presents to clinic to consider continuing FOLFOX. Pain to thoracotomy site, out of [place], now doubling MSERd dose q 12hrs (30 q 12). Is running out of lovenox and payment is $400+, having trouble meeting financial needs for medical care on disability check BM every 3 days, constipated, only taking Miralax every 3 days Neuropathy stable to fingertips and feet, but new burning pain to right foot only Stable SOB, on O2 in clinic No CP, no N/V, no F/C/NS. ECOG PS 2 Course summary: [facility] stent 08/21/20 -> new stent placed - CT CAP 08/20/2020: Colonic distention proximal to the stent in the descending colon, suggesting obstruction. Interval progression of right pleural, and hepatic serosal metastatic deposits. Omental carcinomatosis is grossly unchanged. Stable left adrenal mass - FOLFIRI 09/01 - FOLFOX 09/15 (switched due to rising CEA, more SOB) - 09/30/2020 R thoracoscopic exploration: R pleural biopsy: positive for adenocarcinoma; no free flowing fluid for drainage; advised against a thoracotomy per Dr. Fredi IRWIN 10/13/2020, 10/27/2020 Past Medical, Surgical, Family, Social History: unchanged Past Medical History: Diagnosis Date Asthma Colon cancer (HCCode) HBP (high blood pressure) No Known Allergies Current Outpatient Medications Medication Sig Dispense Refill Aspirin 81 MG tablet Take 81 mg by mouth once. docusate sodium (COLACE) 100 MG capsule Take [...] cream Apply 1 application topically as needed. (Patient not taking: Reported on 10/27/2020) 30 g 3 metoprolol (LOPRESSOR) 50 MG [...] abdominal pain (managed well with MSER and [place]). Negative for bloodin stool, constipation (normal stools since stent placed), diarrhea, nausea and vomiting. Genitourinary: Negative for frequency and urgency. Musculoskeletal: Positive for joint pain (chronic). Skin: Negative. Neurological: Positive for sensory change (mild numbness in feet, worse in fingers, some difficulty with fine dexterity). Negative for seizures. Endo/Heme/Allergies: Negative. Psychiatric/Behavioral: Negative. BP 146/75 (BP Location: right arm, Patient Position: Sitting, Cuff Size: regular) | Pulse 90 | Temp 97.9 F (36.6 C) (Oral) | Ht 5' 11" (1.803 m) | Wt 254 lb (115.2 kg) | BMI 35.43 kg/m Wt Readings from Last 3 Encounters: 10/27/20 254 lb (115.2 kg) 10/23/20 254 lb (115.2 kg) 10/15/20 257 lb (116.6 kg) Physical Exam Constitutional: He is oriented to person, place, and time and well-developed, well-nourished, and inno distress. No distress. Alone today on O2. HENT: Head: Normocephalic and atraumatic. Right Ear: External ear normal. Left Ear: External ear normal. Eyes: Conjunctivae and EOM are normal. No scleral icterus. Cardiovascular: Normal rate, regular rhythm and normal heart sounds. Pulmonary/Chest: No tachypnea. He has no decreased [...] HPI): Lab Results Component Value Date WBC 8.7 10/27/2020 HGB 7.7 (L) 10/27/2020 HCT 27.2 (L) 10/27/2020 MCV 81.9 10/27/2020 PLT 351 10/27/2020 Lab Results Component Value Date ALT 5 10/27/2020 AST 20 10/27/2020 ALKPHOS 101 10/27/2020 BILITOT 0.5 10/27/2020 Lab Results Component Value Date CREATININE 0.56 (L) 10/27/2020 BUN 10 10/27/2020 NA 140 10/27/2020 K 4.5 10/27/2020 CL 107 10/27/2020 CO2 31 (H) 10/27/2020 Lab Results Component Value Date CEA PENDING 10/27/2020 Assessment/Plan: 1) biopsy-proven stage IV pMMR KRAS MUT L-sided colon cancer with malignant pleural effusion and malignant ascites (both cytology-proven). Delayed by insurance, of which he obtained October 2018. CT CAP 10/05/18 showed PD -> FOLFOX (copay for xeloda too high) -> CA after 5 cycles with nice reduction in [...] to slightly worse disease (I reviewed the images). Switched toFOLFOX (inlight of recent CT, rising CEA) starting 09/15/2020 - zofran prn - cont f/u with [...] to #1 - MSER 15 q12h + [place] prn 9) ANASTACIO, not currently, using CPAP 10) Afib/CHF - cont f/u with cardiology RTC [address] scan prior Discussed with Dr. Mary Bennett, K[facility]H [facility] documented in this encounter Plan of Treatment Date Type Specialty Care Team Description 10/29/2020 Appointment Infusion Center 2, [facility] Chair [address], [address] [place], [place] [address] 11/05/2020 Office Visit Cardiology Kelly Lobo MD [address] [address] 0 [phone] 11/10/2020 Office Visit Hematology and Oncology Kyle Hernandez MD [address] [place], [place] [address] [phone] 11/10/2020 Appointment Infusion Center 20, [facility] Chair 11/12/2020 Appointment Infusion Center 20, Bcc Chair 11/24/2020 Appointment Infusion Center 11, Bcc Chair [address], [address] [place], [place] [address] 11/26/2020 Appointment Infusion Center 20, [facility] Chair Name Type Priority Associated Diagnoses Order S chedule CT CHEST ABDOMEN Imaging Routine Colon cancer 1 Occurrenc es starting PELVIS W CONTRAST metastasized to multipl e 10/27/2020 until sites (HCCode) 10/27/2021 Health Maintenance Due Date Last Done Comments [...] 08/02/2018 HPV VACCINE Aged Out No longer elienedina deras based on patient 's age to complete this topic documented as of this encounter Results Not on filedocumented in this encounter Visit Diagnoses Diagnosis Colon cancer metastasized to multiple si elissa (HCCode) - Primary Malignant neoplasm of colon, unspecified site documented in this encounter Insurance Payer Benefit Plan / Subscriber ID Effective Dates Phone Addre ss Type Group [facility] PRAVEENR - [id number] 2018-Present [address] [place] [address] documented as of this encounter
[2020-11-02 00:26] LABS: Absolute Lymphocytes (CBC) 1.4 K/uL (0.7-4.9); Basophils % 1.8 % (0-1.3); Lymphocytes % 33.7 % (15.3-44.8); Protime INR 1.35; RBC Red Blood Cell Count 3.46 M/uL (4.33-5.43)
[2020-11-02] MEDS ORDERED: NA CHLORIDE 0.9% 1,000 ML ONE (00:29)
[2020-11-02] MEDS ORDERED: ONDANSETRON 4 MG/2 ML VIAL ONE ×2 (00:29→05:00)
[2020-11-02] MEDS ORDERED: MORPHINE 4 MG/ML SYR ONE ×2 (00:29→05:00)
[2020-11-02] MEDS ORDERED: FAMOTIDINE 20 MG/2 ML VIAL IV ONE (00:29)
[2020-11-02] MEDS ORDERED: METRONIDAZOLE 500mg IVPB 500 MG/100 ML BAG IV ONE (00:30)
[2020-11-02] MEDS ORDERED: CIPROFLOXACIN 400mg IV 400 MG/200 ML BAG IV ONE (00:30)
[2020-11-02 00:42] LABS: ALT/SGPT 10 U/L (12-78); AST/SGOT 26 U/L (15-37); Albumin 2.6 g/dL (3.4-5.0); Alkaline Phosphatase 83 U/L (45-117); BUN Blood Urea Nitrogen 7 mg/dL (7-18); Bicarbonate 31 mmol/L (21-32); Bilirubin Direct < 0.1 mg/dL (0-0.2); Bilirubin Total 0.2 mg/dL (0.2-1.0); Glucose Level 56 mg/dL (74-106); Lipase 70 U/L (73-393); NT PRO-BNP 428 pg/mL (<125); Potassium 3.8 mmol/L (3.5-5.1); Protein, Total 8.3 g/dL (6.4-8.2); Sodium Level 141 mmol/L (136-145); Troponin (Emerg Dept Use Only) < 0.02 ng/mL (0.0-0.045)
[2020-11-02 01:11] LABS: Anisocytosis 1+; Blood Morphology Comment NOTED (NOT SEEN); Hypochromasia 2+; Ovalocytes 1+; Platelet Estimate INCR; Platelets, Giant FEW
[2020-11-02] MEDS ORDERED: D50W 25 GM/50 ML SYRINGE IV ONE (01:19)
[2020-11-02 03:14] LABS: Urine Blood NEGATIVE (NEG); Urine Glucose NEGATIVE (NEG); Urine Protein NEGATIVE (NEG); Urine pH 5.5 (5.0-7.0)
--- NOTE | 2020-11-02 04:11 | EDPHYS ---
Physician Documentation [facility] Name: Shai Gonzalez Jr Age: 59 yrs Sex: Male : 1960 Arrival Date: 11/01/2020 Time: 22:04 Bed 8 Private MD: ED Physician Deonrde Quijano HPI: 11/01 23:45 This 59 yrs old Black Male presents to ER via Wheelchair with complaints of Decreased joao Appetite, STINT STOPPED UP, BODY PAIN. 23:45 The patient presents with abdominal pain abdominal distention in the upper abdomen, in joao the lower abdomen. Onset: The symptoms/episode began/occurred 2 day(s) ago. The patient presents to the emergency department with nausea, vomiting, abdominal pain, of the right upper quadrant, left upper quadrant, right lower quadrant and left lower quadrant. Onset: The symptoms/episode began/occurred 2 day(s) ago. Possible causes: unknown. The symptoms are aggravated by food , The symptoms are alleviated by remaining still. Associated signs and symptoms: Pertinent positives: abdominal pain, nausea, vomiting. Modifying factors: The symptoms are alleviated by remaining still, the symptoms are aggravated by food. Historical: - Allergies: 23:32 No Known Allergies; lp1 - PMHx: 23:32 ascites; Asthma; Back pain; colon cancer; Diabetes - NIDDM; Gout; Hypertension; lp1 - PSHx: 23:32 colon stent; lp1 - Immunization history:: Adult Immunizations up to date. - Social history:: Smoking status: Patient denies any tobacco usage or history of. - Family history:: not pertinent. ROS: 23:45 Constitutional: Negative for fever, chills, and weight loss, Eyes: Negative for injury, joao pain, redness, and discharge, ENT: Negative for injury, pain, and discharge, Neck: Negative for injury, pain, and swelling, Cardiovascular: Negative for chest pain, palpitations, and edema, Respiratory: Negative for shortness of breath, cough, wheezing, and pleuritic chest pain, Back: Negative for injury and pain, : Negative for injury, bleeding, discharge, and swelling, MS/Extremity: Negative for injury and deformity, Skin: Negative for injury, rash, and discoloration, Neuro: Negative for headache, weakness, numbness, tingling, and seizure, Psych: Negative for depression, anxiety, suicide ideation, homicidal ideation, and hallucinations, Allergy/Immunology: Negative for hives, rash, and allergies, Endocrine: Negative for neck swelling, polydipsia, polyuria, polyphagia, and marked weight changes, Hematologic/Lymphatic: Negative for swollen nodes, abnormal bleeding, and unusual bruising. 23:45 Abdomen/GI: Positive for abdominal pain, abdominal cramps, abdominal distension. Exam: 23:45 Constitutional: This is a well developed, well nourished patient who is awake, alert, joao and in no acute distress. Head/Face: Normocephalic, atraumatic. Eyes: Pupils equal round and reactive to light, extra-ocular motions intact. Lids and lashes normal. Conjunctiva and sclera are non-icteric and not injected. Cornea within normal limits. Periorbital areas with no swelling, redness, or edema. ENT: Nares patent. No nasal discharge, no septal abnormalities noted. Tympanic membranes are normal and external auditory canals are clear. Oropharynx with no redness, swelling, or masses, exudates, or evidence of obstruction, uvula midline. Mucous membranes moist. Neck: Trachea midline, no thyromegaly or masses palpated, and no cervical lymphadenopathy. Supple, full range of motion without nuchal rigidity, or vertebral point tenderness. No Meningismus. Chest/axilla: Normal chest wall appearance and motion. Nontender with no deformity. No lesions are appreciated. Cardiovascular: Regular rate and rhythm with a normal S1 and S2. No gallops, murmurs, or rubs. Normal PMI, no JVD. No pulse deficits. Respiratory: Lungs have equal breath sounds bilaterally, clear to auscultation and percussion. No rales, rhonchi or wheezes noted. No increased work of breathing, no retractions or nasal flaring. Back: No spinal tenderness. No costovertebral tenderness. Full range of motion. Male : Normal genitalia with no discharge or lesions. Skin: Warm, dry with normal turgor. Normal color with no rashes, no lesions, and no evidence of cellulitis. MS/ Extremity: Pulses equal, no cyanosis. Neurovascular intact. Full, normal range of motion. Neuro: Awake and alert, GCS 15, oriented to person, place, time, and situation. Cranial nerves II-XII grossly intact. Motor strength 5/5 in all extremities. Sensory grossly intact. Cerebellar exam normal. Normal gait. Psych: Awake, alert, with orientation to person, place and time. Behavior, mood, and affect are within normal limits. 23:45 Abdomen/GI: Inspection: distension, that is mild, that is moderate, obese Bowel sounds: active, all quadrants, Palpation: mild abdominal tenderness, in all quadrants, Liver: no appreciated palpable abnormalities, Hernia: not appreciated. 11/02 00:19 ECG was reviewed by the Attending Physician. joao 00:59 Abdomen/GI: Rectal exam: is unremarkable, Prostate: normal, rectal tone normal, Stool: joao guaiac positive, no melena. Vital Signs: 11/01 23:29 BP 104 / 61; Pulse 60; Resp 20; Temp 98.2(O); Pulse Ox 99% on 3 lpm NC; Weight 114.31 lp1 kg; Height 5 ft. 11 in. (180.34 cm); Pain 10/10; 11/02 01:00 BP 124 / 81; Pulse 70; Resp 18; Pulse Ox 100% on 2 lpm NC; jb4 02:00 BP 112 / 50; Pulse 70; Resp 19; Pulse Ox 100% on 2 lpm NC; jb4 03:15 BP 105 / 63; Pulse 65; Resp 18; Pulse Ox 100% on 2 lpm NC; jb4 04:15 BP 106 / 70; Pulse 72; Resp 16; Pulse Ox 100% on 2 lpm NC; jb4 06:15 BP 112 / 58; Pulse 62; Resp 16; Pulse Ox 100% on 2 lpm NC; jb4 07:00 BP 114 / 63; Pulse 83; Resp 18; Temp 97.6; Pulse Ox 100% on 2 lpm NC; jb4 11/01 23:29 Body Mass Index 35.15 (114.31 kg, 180.34 cm) lp1 04:15 see transfusion flowsheet for further vitals. jb4 MDM: 11/01 23:35 Patient medically screened. joao 23:48 Differential diagnosis: Nonspecific abd pain, gastritis, pancreatitis, diverticulitis, joao viral gastroenteritis, gastroenteritis, bowel obstruction, diverticulitis, gastritis, sympomatic leaking abdominal aortic aneurysm, non-specific abd pain, pancreatitis, Peptic Ulcer Disease. Data reviewed: vital signs, nurses notes, lab test result(s), EKG, radiologic studies, CT scan, plain films. Data interpreted: quality assurance monitor body: rate is 60 beats/min, rhythm is regular, Pulse oximetry: on room air is 99 %. Test interpretation: by ED physician or midlevel provider: ECG, plain radiologic studies. Counseling: I had a detailed discussion with the patient and/or guardian regarding: the historical points, exam findings, and any diagnostic results supporting the discharge/admit diagnosis, lab results, radiology results. 11/01 23:44 Order name: Basic Metabolic Panel [facility] 11/01 23:44 Order name: CBC with Diff [facility] 11/01 23:44 Order name: LFT's; Complete Time: 00:51 [facility] 11/01 23:44 Order name: Magnesium; Complete Time: 00:51 [facility] 11/01 23:44 Order name: NT PRO-BNP; Complete Time: 00:51 [facility] 11/01 23:44 Order name: PT-INR; Complete Time: 00:51 [facility] 11/01 23:44 Order name: Troponin (emerg Dept Use Only); Complete Time: 00:51 [facility] 11/01 23:44 Order name: Lipase; Complete Time: 00:51 [facility] 11/01 23:45 Order name: Basic Metabolic Panel; Complete Time: 00:51 [facility] 11/01 23:45 Order name: CBC with Automated Diff; Complete Time: 03:53 [facility] 11/02 00:45 Order name: Manual Differential; Complete Time: 03:53 [facility] 11/02 00:51 Order name: Type And Screen [facility] 11/02 00:51 Order name: Type and Screen [facility] 11/02 02:31 Order name: Glucose, Ancillary Testing; Complete Time: 03:53 [facility] 11/01 23:44 Order name: XRAY Chest (1 view) [facility] 11/01 23:44 Order name: CT Abd/Pelvis - PO and IV Contrast [facility] 11/02 02:37 Order name: Urine Dipstick--Ancillary (enter results); Complete Time: 03:53 mw2 11/02 02:44 Order name: Packed RBC Leukored [facility] 11/02 06:23 Order name: SARS-COV-2 RT PCR [facility] 11/01 23:44 Order name: EKG; Complete Time: 23:46 [facility] 11/01 23:44 Order name: Cardiac monitoring; Complete Time: 00:18 [facility] 11/01 23:44 Order name: EKG - Nurse/Tech; Complete Time: 00:18 [facility] 11/01 23:44 Order name: IV Saline Lock; Complete Time: 00:19 [facility] 11/01 23:44 Order name: Labs collected and sent; Complete Time: 00:19 [facility] 11/01 23:44 Order name: O2 Per Protocol; Complete Time: 00:37 [facility] 11/01 23:44 Order name: O2 Sat Monitoring; Complete Time: 00:19 [facility] 11/01 23:44 Order name: Urine Dipstick-Ancillary (obtain specimen); Complete Time: 02:34 [facility] 11/02 00:58 Order name: Transfuse; Complete Time: 06:37 [facility] EC/31 00:19 Rate is 68 beats/min. Rhythm is regular. QRS [place] is Normal. [place] interval is normal. QRS joao interval is normal. QT interval is normal. No Q waves. T waves are Normal. No ST changes noted. Clinical impression: Normal ECG and No evidence of ischemia. Interpreted by me. Reviewed by me. Administered Medications: 00:24 Drug: NS 0.9% 500 ml Route: IV; Rate: bolus; Site: right antecubital; jb4 00:24 Drug: Pepcid 20 mg Route: IVP; Site: right antecubital; jb4 00:54 Follow up: Response: No adverse reaction 4 00:25 Drug: Zofran (Ondansetron) 4 mg Route: IVP; Site: right antecubital; jb4 00:55 Follow up: Response: No adverse reaction 4 00:28 Drug: morphine 4 mg Route: IVP; Site: right antecubital; jb4 00:55 Follow up: Response: No adverse reaction; Pain is decreased; RASS: Alert and Calm (0) jb4 00:28 Drug: Flagyl 500 mg Volume: 100 ml; Route: IVPB; Rate: 200 ml/hr; Infused Over: 30 jb4 mins; Site: right antecubital; 00:58 Follow up: Response: No adverse reaction; IV Status: Completed infusion; IV Intake: jb4 100ml 01:00 Drug: NS 0.9% 1000 ml Route: IV; Rate: 125 ml/hr; Site: right antecubital; jb4 07:15 Follow up: Response: No adverse reaction; IV Status: Completed infusion; IV Intake: jb4 500ml 01:05 Drug: D50W 50 ml Route: IVP; Site: right antecubital; jb4 03:00 Follow up: Response: No adverse reaction; Blood sugar is elevated jb4 02:18 Drug: Cipro 400 mg Volume: 200 ml; Route: IVPB; Infused Over: 60 mins; Site: right jb4 antecubital; 04:18 Follow up: Response: No adverse reaction; IV Status: Completed infusion; IV Intake: jb4 200ml 04:16 Drug: Benadryl 12.5 mg Route: IVP; Site: right antecubital; jb4 04:45 Follow up: Response: No adverse reaction jb4 04:16 Drug: Tylenol 650 mg Route: PO; jb4 04:30 Follow up: Response: No adverse reaction jb4 04:56 Drug: morphine 4 mg Route: IVP; Site: right antecubital; jb4 05:25 Follow up: Response: No adverse reaction; Pain is decreased jb4 04:56 Drug: Zofran (Ondansetron) 4 mg Route: IVP; Site: right antecubital; jb4 05:25 Follow up: Response: No adverse reaction jb4 Disposition: 11/02/20 04:10 Transfer ordered to [facility]. Diagnosis are Abdominal tenderness - stage 4 colon cancer, Anemia, unspecified, Gastrointestinal hemorrhage, unspecified - lower, Pleural condition, unspecified, Pleural effusion in conditions classified elsewhere - malignant, Type 2 diabetes mellitus. - Reason for transfer: Higher level of care. - Accepting physician is to [facility]. - Condition is Fair. - Problem is new. - Symptoms have improved. Signatures: Dispatcher [employer] Carine Castle RN RN sv Anderson, Corey, MD MD cha Pena, Laura, RN RN lp1 Arturo Lai RN RN jb4 Corrections: (The following items were deleted from the chart) 04:13 04:10 11/02/2020 04:10 Transfer ordered to [facility]. joao Diagnosis is Abdominal tenderness - stage 4 colon cancer; Anemia, unspecified; Gastrointestinal hemorrhage, unspecified - lower; Pleural condition, unspecified; Pleural effusion in conditions classified elsewhere - malignant. Reason for transfer: Higher level of care. Accepting physician is to [facility]. Condition is Fair. Problem is new. Symptoms have improved. joao 05:36 04:09 CORONAVIRUS+MRDEV.COLBY ordered. EDMS EDMS 07:21 04:13 11/02/2020 04:10 Transfer ordered to [facility]. sv Diagnosis is Abdominal tenderness - stage 4 colon cancer; Anemia, unspecified; Gastrointestinal hemorrhage, unspecified - lower; Pleural condition, unspecified; Pleural effusion in conditions classified elsewhere - malignant; Type 2 diabetes mellitus. Reason for transfer: Higher level of care. Accepting physician is to [facility]. Condition is Fair. Problem is new. Symptoms have improved. joao
--- NOTE | 2020-11-02 04:11 | ER ---
Nurse's Notes [facility] Name: Shai Gonzalez Jr Age: 59 yrs Sex: Male : 1960 Arrival Date: 11/01/2020 Time: 22:04 Bed 8 Private MD: Diagnosis: Abdominal tenderness-stage 4 colon cancer;Anemia, unspecified;Gastrointestinal hemorrhage, unspecified-lower;Pleural condition, unspecified;Pleural effusion in conditions classified elsewhere-malignant;Type 2 diabetes mellitus Presentation: 11/01 23:29 Chief complaint: Patient states: Pain to lower abdomen x 3 days; reports similar pain lp1 when colon stent was clogged; Patient is currently receiving treatment for colon cancer; denies vomiting, fever; reports last BM 2 days ago. Coronavirus screen: Client denies travel out of the [place] in the last 14 days. At this time, the client does not indicate any symptoms associated with coronavirus-19. Ebola Screen: No symptoms or risks identified at this time. Initial Sepsis Screen: Does the patient meet any 2 criteria? No. Patient's initial sepsis screen is negative. Does the patient have a suspected source of infection? No. Patient's initial sepsis screen is negative. Risk Assessment: Do you want to hurt yourself or someone else? Patient reports no desire to harm self or others. Onset of symptoms was November 01, 2020. 23:29 Method Of Arrival: Wheelchair lp1 23:29 Acuity: MARIA INES 3 lp1 Historical: - Allergies: 23:32 No Known Allergies; lp1 - PMHx: 23:32 ascites; Asthma; Back pain; colon cancer; Diabetes - NIDDM; Gout; Hypertension; lp1 - PSHx: 23:32 colon stent; lp1 - Immunization history:: Adult Immunizations up to date. - Social history:: Smoking status: Patient denies any tobacco usage or history of. - Family history:: not pertinent. Screenin:45 Abuse screen: Denies threats or abuse. Nutritional screening: No deficits noted. jb4 Tuberculosis screening: No symptoms or risk factors identified. Fall Risk None identified. Assessment: 23:45 General: Appears in no apparent distress. uncomfortable, Behavior is calm, cooperative, jb4 appropriate for age. Pain: Complains of pain in abdomen Pain radiates to posterior aspect of right lateral abdomen Pain currently is 10 out of 10 on a pain scale. Quality of pain is described as aching. Neuro: Level of Consciousness is awake, alert, obeys commands, Oriented to person, place, time, situation. Cardiovascular: Patient's skin is warm and dry. Respiratory: Airway is patent Respiratory effort is even, unlabored, Respiratory pattern is regular, symmetrical. GI: Abdomen is round non-distended, Reports lower abdominal pain, upper abdominal pain, constipation. : No signs and/or symptoms were reported regarding the genitourinary system. EENT: No signs and/or symptoms were reported regarding the EENT system. Derm: Skin is intact, Skin is pink, warm \T\ dry. Musculoskeletal: Circulation, motion, and sensation intact. Range of motion: intact in all extremities. 11/02 00:45 Reassessment: Patient appears in no apparent distress at this time. Patient and/or jb4 family updated on plan of care and expected duration. Pain level reassessed. Patient is alert, oriented x 3, equal unlabored respirations, skin warm/dry/pink. 01:45 Reassessment: Patient appears in no apparent distress at this time. Patient and/or jb4 family updated on plan of care and expected duration. Pain level reassessed. Patient is alert, oriented x 3, equal unlabored respirations, skin warm/dry/pink. 02:45 Reassessment: Patient appears in no apparent distress at this time. Patient and/or jb4 family updated on plan of care and expected duration. Pain level reassessed. Patient is alert, oriented x 3, equal unlabored respirations, skin warm/dry/pink. 03:22 Reassessment: Patient appears in no apparent distress at this time. Patient and/or jb4 family updated on plan of care and expected duration. Pain level reassessed. Patient is alert, oriented x 3, equal unlabored respirations, skin warm/dry/pink. PT assisted to the restroom. Pt reports having a bowel movement and feeling much better after. 04:00 Reassessment: Patient appears in no apparent distress at this time. Patient and/or jb4 family updated on plan of care and expected duration. Pain level reassessed. Patient is alert, oriented x 3, equal unlabored respirations, skin warm/dry/pink. 05:00 Reassessment: Patient appears in no apparent distress at this time. Patient and/or jb4 family updated on plan of care and expected duration. Pain level reassessed. Patient is alert, oriented x 3, equal unlabored respirations, skin warm/dry/pink. 06:00 Reassessment: Patient appears in no apparent distress at this time. Patient and/or jb4 family updated on plan of care and expected duration. Pain level reassessed. Patient is alert/active/playful, equal unlabored respirations, skin warm/dry/pink. 06:25 Reassessment: attempted to call report to receiving facility. Instructed to call back jb4 in 10 to 15 minutes. 07:15 Reassessment: Patient appears in no apparent distress at this time. Patient and/or jb4 family updated on plan of care and expected duration. Pain level reassessed. Patient is alert, oriented x 3, equal unlabored respirations, skin warm/dry/pink. Vital Signs: 11/01 23:29 BP 104 / 61; Pulse 60; Resp 20; Temp 98.2(O); Pulse Ox 99% on 3 lpm NC; Weight 114.31 lp1 kg; Height 5 ft. 11 in. (180.34 cm); Pain 10/10; 11/02 01:00 BP 124 / 81; Pulse 70; Resp 18; Pulse Ox 100% on 2 lpm NC; jb4 02:00 BP 112 / 50; Pulse 70; Resp 19; Pulse Ox 100% on 2 lpm NC; jb4 03:15 BP 105 / 63; Pulse 65; Resp 18; Pulse Ox 100% on 2 lpm NC; jb4 04:15 BP 106 / 70; Pulse 72; Resp 16; Pulse Ox 100% on 2 lpm NC; jb4 06:15 BP 112 / 58; Pulse 62; Resp 16; Pulse Ox 100% on 2 lpm NC; jb4 07:00 BP 114 / 63; Pulse 83; Resp 18; Temp 97.6; Pulse Ox 100% on 2 lpm NC; jb4 11/01 23:29 Body Mass Index 35.15 (114.31 kg, 180.34 cm) lp1 04:15 see transfusion flowsheet for further vitals. [facility] ED Course: 11/01 22:04 Patient arrived in ED. cf2 23:31 Triage completed. lp1 23:31 Arm band placed on. lp1 23:35 Deondre Quijano MD is Attending Physician. [facility] 23:38 Arturo Lai RN is Primary Nurse. jb4 23:45 Patient has correct armband on for positive identification. Bed in low position. Call jb4 light in reach. Side rails up X 1. 11/02 00:03 XRAY Chest (1 view) In Process Unspecified. EDMS 00:17 Inserted saline lock: 20 gauge in right antecubital area, using aseptic technique. oe Blood collected. 01:42 CT Abd/Pelvis - PO and IV Contrast In Process Unspecified. EDMS 04:10 initiated a transfer with Alona Ly from [facility]. [facility] 04:54 administrative approval given by Alona Ly/ patient has been accepted to [place] [id number] transfer [place] bed 2109/ Dr. Roque has accepted the patient in transfer/ report to be called to [phone]. 07:19 No provider procedures requiring assistance completed. Patient transferred, IV remains jb4 in place. Administered Medications: 00:24 Drug: NS 0.9% 500 ml Route: IV; Rate: bolus; Site: right antecubital; jb4 00:24 Drug: Pepcid 20 mg Route: IVP; Site: right antecubital; jb4 00:54 Follow up: Response: No adverse reaction jb4 00:25 Drug: Zofran (Ondansetron) 4 mg Route: IVP; Site: right antecubital; jb4 00:55 Follow up: Response: No adverse reaction jb4 00:28 Drug: morphine 4 mg Route: IVP; Site: right antecubital; jb4 00:55 Follow up: Response: No adverse reaction; Pain is decreased; RASS: Alert and Calm (0) jb4 00:28 Drug: Flagyl 500 mg Volume: 100 ml; Route: IVPB; Rate: 200 ml/hr; Infused Over: 30 jb4 mins; Site: right antecubital; 00:58 Follow up: Response: No adverse reaction; IV Status: Completed infusion; IV Intake: jb4 100ml 01:00 Drug: NS 0.9% 1000 ml Route: IV; Rate: 125 ml/hr; Site: right antecubital; jb4 07:15 Follow up: Response: No adverse reaction; IV Status: Completed infusion; IV Intake: jb4 500ml 01:05 Drug: D50W 50 ml Route: IVP; Site: right antecubital; jb4 03:00 Follow up: Response: No adverse reaction; Blood sugar is elevated jb4 02:18 Drug: Cipro 400 mg Volume: 200 ml; Route: IVPB; Infused Over: 60 mins; Site: right jb4 antecubital; 04:18 Follow up: Response: No adverse reaction; IV Status: Completed infusion; IV Intake: jb4 200ml 04:16 Drug: Benadryl 12.5 mg Route: IVP; Site: right antecubital; jb4 04:45 Follow up: Response: No adverse reaction jb4 04:16 Drug: Tylenol 650 mg Route: PO; jb4 04:30 Follow up: Response: No adverse reaction jb4 04:56 Drug: morphine 4 mg Route: IVP; Site: right antecubital; jb4 05:25 Follow up: Response: No adverse reaction; Pain is decreased jb4 04:56 Drug: Zofran (Ondansetron) 4 mg Route: IVP; Site: right antecubital; jb4 05:25 Follow up: Response: No adverse reaction jb4 Intake: 00:58 IV: 100ml; Total: 100ml. jb4 04:18 IV: 200ml; Total: 300ml. jb4 07:15 IV: 500ml; Total: 800ml. jb4 Outcome: 04:10 ER care complete, transfer ordered by MD. shepherd 07:19 Transferred by ground [facility] EMS. jb4 07:19 Condition: stable 07:19 Discharge instructions given to patient, Instructed on the need for transfer, Demonstrated understanding of instructions. 07:21 Patient left the ED. sv Signatures: Dispatcher [employer] EDCarine Abernathy RN Deondre Le MD MD cha Pena, Laura RN RN lp1 Arturo Lai RN RN jb4 Richard Martines MyKena 2 Kirby Lam cf2 Corrections: (The following items were deleted from the chart) 06:19 03:15 BP 105 / 63; Pulse 65bpm; Resp 18bpm; Pulse Ox 100% 3 lpm Nasal Cannula; jb4 jb4 06:19 02:00 BP 112 / 50; Pulse 70bpm; Resp 19bpm; Pulse Ox 100% 3 lpm Nasal Cannula; jb4 jb4 06:19 01:00 BP 124 / 81; Pulse 70bpm; Resp 18bpm; Pulse Ox 100% 3 lpm Nasal Cannula; jb4 jb4
[2020-11-02] MEDS ORDERED: DIPHENHYDRAMINE 50 MG/ML VIAL ONE (04:16)
[2020-11-02] MEDS ORDERED: ACETAMINOPHEN 325 MG TABLET ONE (04:16)
[2020-11-02] MEDS ORDERED: NA CHLORIDE 0.9% 50 ML ONE (04:37)
[2020-11-02 07:27] VITALS: O2SAT 100
[2020-11-02 07:33] VITALS: BP 114/63; TEMP 97.6
--- NOTE | 2020-11-02 08:43 | RAD REPORT ---
EXAM DESCRIPTION: Alo Single View11/02/2020 12:02 am CLINICAL HISTORY: Abdominal COMPARISON: February 2020 FINDINGS: Moderate right pleural effusion mildly decreased in size. Right basilar opacity Tiny lung nodules. Central venous line in place. Right lung volume loss. IMPRESSION: Moderate right pleural effusion mildly decreased in size Right basilar opacity could represent atelectasis or pneumonia Tiny lung nodules may represent metastases
--- NOTE | 2020-11-03 08:20 | EKG ---
Test Date: 2020-11-01 Test Time: 23:59:40 [employer] Distribution Supervisor: BIMAL MEASUREMENT RESULTS: Intervals: Rate: 68 CA: 176 QRSD: 74 QT: 400 QTc: 425 Hardy: P: 6 CA: 176 QRS: 23 T: 17 INTERPRETIVE STATEMENTS: Sinus rhythm with marked sinus arrhythmia with occasional premature ventricular complexes Nonspecific T wave abnormality Abnormal ECG Compared to ECG 11/26/2019 18:23:15 Ventricular premature complex(es) now present Atrial flutter no longer present T-wave abnormality still present Electronically Signed On 11-03-20 08:17:53 [employer] by Slick Velásquez
--- NOTE | 2020-11-03 10:25 | RAD REPORT ---
EXAM DESCRIPTION: CT - Abdomen Pelvis W Contrast - 11/02/2020 3:35 am CLINICAL HISTORY: Abd pain; Abdominal distention TECHNIQUE: Contiguous axial images obtained through the abdomen and pelvis following the uneventful administration of IV contrast. Coronal and sagittal reformatted images were provided. This exam was performed according to our departmental dose-optimization program, which includes autom ated exposure control, adjustment of the mA and/or kV according to patient size and/or use of iterati ve reconstruction technique. COMPARISON: 11/27/2019 FINDINGS: Lung bases: Right-sided volume loss, right lower and to a lesser extent right middle lobe consolidation. Moderate to large complex peripherally thickened and partially enhancing right pleural collection, new from the prior. 3 mm lingular, 2 mm left lower lobe subpleural and 6 mm left lower l obe nodules (series 501 images 8, 14 and 20, respectively), not definitively seen on the prior. The h eart is enlarged. Coronary artery calcification. Liver: The liver is enlarged with diffuse surface contour nodularity. Interval development of multipl e subtle heterogeneous lesions. An index lesion at the right posterior hepatic lobe measures 4.5 cm ( series 501 image 53). There is a new subcapsular heterogeneous soft tissue lesion on the left measuri ng 3.4 cm. Additional pericapsular soft tissue density nodules new from the prior. Gallbladder and biliary system: Unremarkable Pancreas: Unremarkable Spleen: Unremarkable Adrenals: Heterogeneous partially calcified left adrenal mass measuring 4.3 x 3.4 x 3.6 cm (previousl y 3.8 x 3.3 x 3.3 cm). Kidneys: Normal renal cortical enhancement. No calculi. No hydronephrosis. Bowel: Air-fluid levels throughout the large bowel. Descending colon stent with adjacent wall thicken ing is again demonstrated. No obstruction. Appendix: Normal caliber appendix. No findings to suggest acute appendicitis. Urinary bladder: Unremarkable Reproductive: The prostate is enlarged. Lymph nodes: Enlarged heterogeneous partially calcified cami hepatic and portacaval lymph nodes new from the prior measuring up to 2 cm in short axis. Peritoneum: Small amount of free fluid within the abdomen and pelvis. Peritoneal nodularity particula rly on the left has progressed. No free air. Vessels: Moderate atherosclerotic disease. No abdominal aortic aneurysm. Abdominal wall: Generalized body wall edema. Small bilateral fat-containing inguinal hernias. Bones: Multilevel spondylosis. No acute fracture. Mild periosteal reaction involving right ribs adjac ent to the pleural collection. IMPRESSION: 1. Air-fluid levels throughout the large bowel which can be seen in the clinical setti ng of diarrhea. No bowel obstruction. Descending colon stent remains in place. Mild adjacent wall thi ckening which may be reactive and/or reflect original or recurrent primary malignancy. 2. Interval progression of findings compatible with hepatic, peritoneal and left adrenal metastases . 3. Moderate to large complex peripherally thickened and partially enhancing right pleural collectio n, new from the prior which may be related to a malignant effusion. Adjacent periosteal reaction invo lving right ribs. 4. Multiple left-sided pulmonary nodules measuring up to 6 mm, not definitively seen on the prior w hich may be metastatic. 5. Other findings as above. Electronically signed by: Kendal Qureshi MD 11/02/2020 3:28 AM CARDIAC CATH LAB RADIOLOGY TECHNOLOGIST Due to temporary technical issues with the PACS/Fluency reporting system, reports are being signed by the in house radiologist without review as a courtesy to ensure prompt reporting. The interpreting r adiologist is fully responsible for the content of the report.
== END 2020-11-02 07:21 | disposition short-term general hospital (02) ==
LOC: ER 22:03
PROC: 30233N1 Transfusion of Nonautologous Red Blood Cells into Peripheral Vein, Percutaneous Approach (ICD-10-PCS; principal; 2020-11-02)
DX: K92.2 Gastrointestinal hemorrhage, unspecified (principal); C18.9 Malignant neoplasm of colon, unspecified; D64.9 Anemia, unspecified; J90 Pleural effusion, not elsewhere classified; E11.9 Type 2 diabetes mellitus without complications; Z20.822 Contact with and (suspected) exposure to COVID-19
CPT/HCPCS: 96365; 96367; 96361; 93005; 85025; 80048; 36415; 86900; 83735; 86850; 85610; 86901; 82947; 80076; 81003; 84484; 83690; 83880; 74177; 71045; 96375; 99285; 36430; U0003; Q9967; J1200; P9016 ×2; J7030; J2405 ×2; J0744

== ENCOUNTER 2020-11-12 09:17 | Observation (INO) | payer OTHER ==
[2020-11-12] MEDS ORDERED: D50W 50 ML IV ONE ×2 (09:57→13:11)
[2020-11-12 10:43] LABS: Absolute Lymphocytes (CBC) 0.4 K/uL (0.7-4.9); Basophils % 0.4 % (0-1.3); Hematocrit 30.7 % (39.6-49.0); RBC Red Blood Cell Count 4.06 M/uL (4.33-5.43)
[2020-11-12] MEDS ORDERED: NA CHLORIDE 0.9% IV ONE (10:45)
[2020-11-12] MEDS ORDERED: HYDROMORPHONE IV ONE (10:45)
--- NOTE | 2020-11-12 10:50 | RAD REPORT ---
EXAM DESCRIPTION: RAD - Chest Single View - 11/12/2020 10:33 am CLINICAL HISTORY: ams COMPARISON: Portable chest November 01 TECHNIQUE: AP portable chest image was obtained 11/12/2020 10:33 am . FINDINGS: Right-sided Port-A-Cath is in place. Complete or near complete right hunter thorax opacifica tion is present progressive from October. Trachea remains in the midline. No significant left lung fi eld finding. No left-sided pleural effusion. There are no pneumothorax findings. Heart is partially o bscured on the right. Size is similar to comparison. No acute bony abnormality seen. No acute aortic findings suspected. IMPRESSION: Enlarging right pleural effusion with infiltrate, atelectasis and/ or mass lesions poten tially obscured.
[2020-11-12 10:51] LABS: Protime INR 1.37
[2020-11-12 10:57] LABS: ALT/SGPT 12 U/L (12-78); AST/SGOT 36 U/L (15-37); Albumin 2.5 g/dL (3.4-5.0); Alkaline Phosphatase 110 U/L (45-117); BUN Blood Urea Nitrogen 8 mg/dL (7-18); Bicarbonate 33 mmol/L (21-32); Bilirubin Direct 0.1 mg/dL (0-0.2); Bilirubin Total 0.4 mg/dL (0.2-1.0); Glucose Level 91 mg/dL (74-106); Magnesium 2.3 mg/dL (1.8-2.4); NT PRO-BNP 681 pg/mL (<125); Potassium 4.1 mmol/L (3.5-5.1); Protein, Total 8.7 g/dL (6.4-8.2); Sodium Level 145 mmol/L (136-145); Troponin (Emerg Dept Use Only) < 0.02 ng/mL (0.0-0.045)
[2020-11-12] MEDS ORDERED: FAMOTIDINE 20 MG/2 ML VIAL IV ONE (11:06)
[2020-11-12] MEDS ORDERED: ONDANSETRON 4 MG/2 ML VIAL ONE (11:06)
[2020-11-12 11:33] LABS: White Blood Cell Scan OK (OK)
[2020-11-12 11:34] LABS: Blood Morphology Comment NOTED (NOT SEEN); Platelet Estimate INCR; Platelets, Giant FEW; Polychromasia 1+; Target Cells 1+
--- NOTE | 2020-11-12 11:50 | RAD REPORT ---
EXAM DESCRIPTION: CT - Abdomen Pelvis W Contrast - 11/12/2020 11:26 am CLINICAL HISTORY: ABD PAIN COMPARISON: Abdomen Pelvis W Contrast dated 11/02/2020; Abdomen Pelvis W Contrast dated 9 TECHNIQUE: Biphasic, helical CT imaging of the abdomen and pelvis was performed following 100 ml non -ionic IV contrast. No oral contrast administered. All CT scans are performed using dose optimization technique as appropriate and may include automated exposure control or mA/KV adjustment according to patient size. FINDINGS: Large loculated pleural effusion is present at the right lung base. There is extensive kaitlyn g parenchymal opacification present only partially imaged. This is not a typical atelectasis level. P neumonia would be a consideration. Given the patient's cancer history, intrathoracic malignancy canno t be excluded. Findings are not grossly different from the November 02 study. No left-sided pleural ef fusion or acute left-sided lung parenchymal process. Small pericardial effusion similar to comparison. The liver, spleen, and pancreas show no suspicious findings. A 3.3 centimeter round subcapsular low-density mass (image 23) in the midline dome left lobe of the l iver is not clearly changed from October. In the lateral subcapsular dome right lobe ill-defined low- density mass approximately 5 cm in size (image 30) noted. Additional adjacent areas of heterogeneity noted in the dome of the liver. Ill-defined low-density mass is present in the inferior segment IV B of the liver (image 42) approximately 3.1 cm in size. Ill-defined low-density in the anterior inferio r aspect of the liver (image 51) is approximately 3.9 cm in size. No spleen or pancreas acute finding. Gallbladder and biliary tree are also without suspicious finding . Symmetric renal function is seen with no hydronephrosis or suspicious renal mass. No pyelonephritis o r acute parenchymal process. No bladder abnormalities. Approximately 4.5 centimeter left adrenal mass is again identified similar to comparison. No right adrenal mass. No gastric dilatation or gastric wall thickening. No dilated small bowel loops. Air and moderate volu me of stool fills but does not dilate the colon. The patient has an intraluminal stent across the pro ximal portion of the descending colon. This was present on prior imaging. No new mass or wall thicken ing in this region. No free air or pneumatosis. Small amount of free intraperitoneal fluid is present. Fluid retention is seen in the subcutaneous fatty tissues. No bulky lymphadenopathy. Omental thickening or nodularity p resent in the anterior mid lung field. No suspicious bony findings. IMPRESSION: No bowel obstruction, free air or surgically emergent finding identifiable. Multiple low-density ill-defined lesions in the liver are present very likely metastatic disease but not clearly different from November 02 imaging. Large loculated, rim enhancing pleural effusion with extensive lung parenchymal opacification only pa rtially imaged. Findings are not substantially different from October. This could be intrathoracic ma lignancy, chronic right lung parenchymal infectious process or a combination. Ascites and omental thickening are present. 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
[2020-11-12 12:25] LABS: Urine Blood 2+ (NEG); Urine Glucose NEGATIVE (NEG); Urine Protein TRACE (NEG); Urine Specific Gravity 1.015 (1.005-1.030)
--- NOTE | 2020-11-12 13:24 | EDPHYS ---
Physician Documentation [facility] Name: Shai Gonzalez Jr Age: 59 yrs Sex: Male : 1960 Arrival Date: 11/12/2020 Time: 09:26 Bed 4 Private MD: ED Physician Corey Trinidad HPI: 11/13 07:54 This 59 yrs old Black Male presents to ER via EMS with complaints of low blood sugar kdr and AMS. 07:54 EMS reports that they have been called to the patient's house recently on multiple kdr occasions ot find that he has had low blood sugars. Often, they give the patient an amp of D50 and then he refuses transport. Today, they again found his BS to be low but he did not refuse transport this time. The patient is on hospice care secondary to terminal metastatic colon cancer. Onset: The symptoms/episode began/occurred suddenly, just prior to arrival, this morning. Severity of symptoms: At their worst the symptoms were moderate severe incapacitating just prior to arrival, in the emergency department the symptoms have improved markedly. The patient has experienced similar episodes in the past, multiple times. It is unknown whether or not the patient has recently seen a physician. Historical: - Allergies: 11/12 09:53 No Known Allergies; jd3 - Home Meds: 09:53 Eliquis 5 mg Oral tab 1 tab 2 times per day [Active]; glimepiride 4 mg Oral tab 1 tab jd3 once daily [Active]; [place] 10-325 mg Oral tab 1 tab every 6 hours [Active]; sotalol 80 mg Oral tab 1 tab 2 times per day [Active]; Tradjenta 5 mg Oral tab 1 tab once daily [Active]; - PMHx: 09:53 ascites; Asthma; Back pain; colon cancer; Diabetes - NIDDM; Gout; Hypertension; jd3 - PSHx: 09:53 colon stent; jd3 - Immunization history:: Adult Immunizations up to date. - Social history:: Smoking status: Patient/guardian denies using tobacco, but has a distant history of tobacco abuse. ROS: 11/13 07:54 Constitutional: Negative for fever, chills, and weight loss, Eyes: Negative for injury, kdr pain, redness, and discharge, ENT: Negative for injury, pain, and discharge, Neck: Negative for injury, pain, and swelling, Cardiovascular: Negative for chest pain, palpitations, and edema, Back: Negative for injury and pain, : Negative for injury, bleeding, discharge, and swelling, MS/Extremity: Negative for injury and deformity, Skin: Negative for injury, rash, and discoloration, Neuro: Negative for headache, weakness, numbness, tingling, and seizure activity. Psych: Negative for depression, anxiety, suicide ideation, homicidal ideation, and hallucinations, Allergy/Immunology: Negative for hives, rash, and allergies, Hematologic/Lymphatic: Negative for swollen nodes, abnormal bleeding, and unusual bruising. Respiratory: Positive for shortness of breath, on exertion. Negative for hemoptysis, orthopnea, pleurisy, sputum production, wheezing. Abdomen/GI: Positive for abdominal pain, nausea, abdominal distension, of the anterior aspect of right lateral abdomen and right upper quadrant, Negative for vomiting, diarrhea, constipation, abdominal cramps. Endocrine: Positive for polydipsia. Exam: 11/12 15:54 ECG was reviewed by the Attending Physician. kdr 11/13 07:54 Constitutional: This is a well developed, well nourished but mildly cachectic patient kdr who is awake, alert, and in no acute distress. Head/Face: Normocephalic, atraumatic. Eyes: Pupils equal round and reactive to light, extra-ocular motions intact. Lids and lashes normal. Conjunctiva and sclera are non-icteric and not injected. Cornea within normal limits. Periorbital areas with no swelling, redness, or edema. Neck: Trachea midline, no thyromegaly or masses palpated, and no cervical lymphadenopathy. Supple, full range of motion without nuchal rigidity, or vertebral point tenderness. No Meningismus. Chest/axilla: Normal chest wall appearance and motion. Nontender with no deformity. No lesions are appreciated. Cardiovascular: Regular rate and rhythm with a normal S1 and S2. No gallops, murmurs, or rubs. Normal PMI, no JVD. No pulse deficits. Back: No spinal tenderness. No costovertebral tenderness. Full range of motion. Skin: Warm, dry with normal turgor. Normal color with no rashes, no lesions, and no evidence of cellulitis. MS/ Extremity: Pulses equal, no cyanosis. Neurovascular intact. Full, normal range of motion. Neuro: Awake and alert, GCS 15, oriented to person, place, time, and situation. Cranial nerves II-XII grossly intact. Motor strength 5/5 in all extremities. Sensory grossly intact. Cerebellar exam normal. Normal gait. Psych: Awake, alert, with orientation to person, place and time. Behavior, mood, and affect are within normal limits. Respiratory: the patient does not display signs of respiratory distress, Respirations: normal, Breath sounds: rales, that are mild, are scattered, are located in both bases. Abdomen/GI: Inspection: distension, that is moderate, Bowel sounds: active, diminished, in all quadrants, Palpation: Firm but generally non-tender. Vital Signs: 11/12 09:51 BP 172 / 91; Pulse 104; Resp 17 S; Temp 98.3(O); Pulse Ox 93% on R/A; Weight 114.31 kg jd3 (R); Height 5 ft. 11 in. (180.34 cm) (R); Pain 9/10; 11:59 BP 166 / 89; Pulse 100; Resp 18 S; Pulse Ox 99% on 3 lpm NC; jd3 13:12 Pulse 103; Resp 17 S; Pulse Ox 98% on 3 lpm NC; jd3 14:07 BP 132 / 76; Pulse 91; Resp 17 S; Pulse Ox 99% on R/A; jd3 15:07 BP 135 / 73; Pulse 101; Resp 17 S; Pulse Ox 95% on 3 lpm NC; jd3 16:51 BP 112 / 60; Pulse 95; Resp 17 S; Pulse Ox 100% on 3 lpm NC; jd3 09:51 Body Mass Index 35.15 (114.31 kg, 180.34 cm) jd3 MDM: 13:23 Patient medically screened. kdr 11/13 07:54 Data reviewed: vital signs, nurses notes, lab test result(s), EKG, radiologic studies. kdr Counseling: I had a detailed discussion with the patient and/or guardian regarding: the historical points, exam findings, and any diagnostic results supporting the discharge/admit diagnosis, lab results, radiology results, the need for further work-up and treatment in the hospital. 11/12 09:30 Order name: Urine Dipstick--Ancillary (enter results) bd 11/12 09:30 Order name: Urine --Ancillary (enter results) bd 11/12 09:51 Order name: Glucose, Ancillary Testing; Complete Time: 10:22 EDMS 11/12 09:56 Order name: Basic Metabolic Panel kdr 11/12 09:56 Order name: CBC with Diff kdr 11/12 09:56 Order name: LFT's kdr 11/12 09:56 Order name: Magnesium; Complete Time: 12:43 kdr 11/12 09:56 Order name: NT PRO-BNP; Complete Time: 12:43 kdr 11/12 09:56 Order name: PT-INR; Complete Time: 12:43 kdr 11/12 09:56 Order name: Troponin (emerg Dept Use Only); Complete Time: 12:43 kdr 11/12 09:57 Order name: Basic Metabolic Panel; Complete Time: 12:43 EDMS 11/12 09:57 Order name: CBC with Automated Diff; Complete Time: 12:43 EDMS 11/12 09:56 Order name: XRAY Chest (1 view); Complete Time: 12:43 kdr 11/12 09:57 Order name: Liver (Hepatic) Function; Complete Time: 12:43 EDMS 11/12 10:22 Order name: CT Abd/Pelvis - IV Contrast Only; Complete Time: 12:43 kdr 11/12 10:49 Order name: CBC Smear Scan; Complete Time: 12:43 EDMS 11/12 12:16 Order name: Urine Dipstick--Ancillary (enter results); Complete Time: 12:43 bd 11/12 12:55 Order name: Glucose jd3 11/12 13:03 Order name: Glucose, Ancillary Testing EDMS 11/12 14:10 Order name: COVID-19 : Document "Date of Symptom Onset" if Symptomatic. iw 11/12 14:24 Order name: Glucose, Ancillary Testing EDMS 11/12 14:39 Order name: CBC with Automated Diff EDMS 11/12 14:39 Order name: CBC with Automated Diff EDMS 11/12 14:39 Order name: Comprehensive Metabolic Panel EDMS 11/12 14:39 Order name: Comprehensive Metabolic Panel EDMS 11/12 16:00 Order name: SARS-COV-2 RT PCR EDMS 11/12 16:47 Order name: Glucose, Ancillary Testing EDMS 11/12 09:56 Order name: EKG; Complete Time: 09:57 kdr 11/12 09:56 Order name: Cardiac monitoring; Complete Time: 10:20 kdr 11/12 09:56 Order name: EKG - Nurse/Tech; Complete Time: 12:37 kdr 11/12 09:56 Order name: IV Saline Lock; Complete Time: 10:30 kdr 11/12 09:56 Order name: Labs collected and sent; Complete Time: 10:30 kdr 11/12 09:56 Order name: O2 Per Protocol; Complete Time: 10:20 kdr 11/12 09:56 Order name: O2 Sat Monitoring; Complete Time: 10:20 kdr 11/12 10:22 Order name: Bladder Scanner; Complete Time: 12:00 kdr 11/12 12:15 Order name: Cath; Complete Time: 12:15 jd3 11/12 14:18 Order name: Diet Regular; Complete Time: 14:18 aa5 11/12 14:39 Order name: CONS Pharmacy Consult EDMS 11/12 14:39 Order name: CONS Physician Consult EDMS EC/10 15:54 Rate is 91 beats/min. Rhythm is irregular, Sinus arrythmia with PACs. QRS Usk is kdr Normal. GA interval is normal. QRS interval is normal. Clinical impression: NSR w/ Non-specific ST/T Changes, Sinus arrythmia, and No evidence of ischemia. Administered Medications: 09:51 Drug: D50W 50 ml Route: IVP; Site: left antecubital; jd3 10:50 Follow up: Response: No adverse reaction jd3 11:14 Drug: Zofran (Ondansetron) 4 mg Route: IVP; Site: left antecubital; jd3 12:00 Follow up: Response: No adverse reaction jd3 11:15 Drug: Dilaudid 2 mg Route: IVP; Site: left antecubital; jd3 12:15 Follow up: Response: No adverse reaction; RASS: Alert and Calm (0) jd3 11:15 Drug: Pepcid 20 mg Route: IVP; Site: left antecubital; jd3 12:15 Follow up: Response: No adverse reaction jd3 13:09 Drug: D50W 50 ml Route: IVP; Site: left antecubital; jd3 14:00 Follow up: Response: No adverse reaction jd3 14:18 Drug: D50W 50 ml Route: IVP; Site: left antecubital; aa5 15:00 Follow up: Response: No adverse reaction jd3 Point of Care Testing: Blood Glucose: 14:16 Blood Glucose: 52 mg/dL; aa5 14:16 Dr. Pina at bedside. aa5 Ranges: Critical Glucose Levels:Adult <50 mg/dl or >400 mg/dl <40 mg/dl or >180 mg/dl Disposition: 11/12/20 13:23 Hospitalization ordered by Matty Pina for Observation. Preliminary diagnosis are Hypoglycemia, unspecified, Weakness, Colon cancer: metastatic, Urinary retention. - Bed requested for Telemetry/MedSurg (observation). - Status is Observation. jd3 - Condition is Fair. - Problem is new. - Symptoms have improved. Signatures: Dispatcher [employer] EDMS Rylee Erickson, RN RN dw Corey Trinidad MD MD [facility] Meagan Patel RN RN aa5 Lawrence Ortiz RN RN jd3 Corrections: (The following items were deleted from the chart) 10:00 09:31 Urine Dipstick-Ancillary ordered. EDWI EDMS 10:00 09:31 Urine --Ancillary ordered. EDWI EDMS 16:20 13:23 Hospitalization Ordered by Matty Pina MD for Observation. Preliminary dw diagnosis is Hypoglycemia, unspecified; Weakness; Colon cancer: metastatic; Urinary retention. Bed requested for Telemetry/MedSurg (observation). Status is Observation. Condition is Fair. Problem is new. Symptoms have improved. kdr 17:06 16:20 11/12/2020 13:23 Hospitalization Ordered by Matty Pina MD for Observation. jd3 Preliminary diagnosis is Hypoglycemia, unspecified; Weakness; Colon cancer: metastatic; Urinary retention. Bed requested for Telemetry/MedSurg (observation). Status is Observation. Condition is Fair. Problem is new. Symptoms have improved. dw
--- NOTE | 2020-11-12 13:24 | ER ---
Nurse's Notes [facility] Name: Shai Gonzalez Jr Age: 59 yrs Sex: Male : 1960 Arrival Date: 11/12/2020 Time: 09:26 Bed 4 Private MD: Diagnosis: Hypoglycemia, unspecified;Weakness;Colon cancer: metastatic;Urinary retention Presentation: 11/12 09:45 Chief complaint: EMS states: "we have ran 4 times in the last 3 days for this pt for jd3 low blood sugar. he was initially unconscious, but we stared 20 G IV to the left AC and gave D10W and he is awake again. he was 32 BGL when we got there 80's when were getting here.". Coronavirus screen: At this time, the client does not indicate any symptoms associated with coronavirus-19. Ebola Screen: Patient negative for fever greater than or equal to 101.5 degrees Fahrenheit, and additional compatible Ebola Virus Disease symptoms. Initial Sepsis Screen: Does the patient meet any 2 criteria? No. Patient's initial sepsis screen is negative. Does the patient have a suspected source of infection? No. Patient's initial sepsis screen is negative. Risk Assessment: Do you want to hurt yourself or someone else? Patient reports no desire to harm self or others. Onset of symptoms was November 12, 2020. 09:45 Method Of Arrival: EMS: [facility] jd3 09:45 Acuity: MARIA INES 2 jd3 Historical: - Allergies: 09:53 No Known Allergies; jd3 - Home Meds: 09:53 Eliquis 5 mg Oral tab 1 tab 2 times per day [Active]; glimepiride 4 mg Oral tab 1 tab jd3 once daily [Active]; [place] 10-325 mg Oral tab 1 tab every 6 hours [Active]; sotalol 80 mg Oral tab 1 tab 2 times per day [Active]; Tradjenta 5 mg Oral tab 1 tab once daily [Active]; - PMHx: 09:53 ascites; Asthma; Back pain; colon cancer; Diabetes - NIDDM; Gout; Hypertension; jd3 - PSHx: 09:53 colon stent; jd3 - Immunization history:: Adult Immunizations up to date. - Social history:: Smoking status: Patient/guardian denies using tobacco, but has a distant history of tobacco abuse. Screenin:16 Abuse screen: Denies threats or abuse. Nutritional screening: No deficits noted. jd3 Tuberculosis screening: No symptoms or risk factors identified. Fall Risk Ambulatory Aid- None/Bed Rest/Nurse Assist (0 pts). Gait- Normal/Bed Rest/Wheelchair (0 pts) Mental Status- Oriented to own ability (0 pts). Total Holliday Fall Scale indicates No Risk (0-24 pts). Assessment: 10:15 General: Appears in no apparent distress. uncomfortable, Behavior is calm, cooperative, jd3 appropriate for age. Pain: Complains of pain in abdomen Quality of pain is described as aching. Neuro: Level of Consciousness is awake, alert, obeys commands, Oriented to person, place, time, situation. Cardiovascular: Denies chest pain, Capillary refill < 3 seconds Patient's skin is warm and dry. Respiratory: Airway is patent Respiratory effort is even, unlabored, Respiratory pattern is regular, symmetrical, Denies cough, shortness of breath. GI: Abdomen is round non-distended, Abd is soft and non tender X 4 quads. Reports lower abdominal pain, diarrhea. : Reports urgency, urinary frequency. EENT: No signs and/or symptoms were reported regarding the EENT system. Derm: Skin is intact, Skin is dry, Skin is normal, Skin temperature is warm. Musculoskeletal: Circulation, motion, and sensation intact. Range of motion: intact in all extremities. 11:15 Reassessment: No changes from previously documented assessment. Patient and/or family jd3 updated on plan of care and expected duration. Pain level reassessed. Patient is alert, oriented x 3, equal unlabored respirations, skin warm/dry/pink. 12:00 Reassessment: No changes from previously documented assessment. Patient and/or family jd3 updated on plan of care and expected duration. Pain level reassessed. Patient is alert, oriented x 3, equal unlabored respirations, skin warm/dry/pink. 13:12 Reassessment: No changes from previously documented assessment. Patient and/or family jd3 updated on plan of care and expected duration. Pain level reassessed. Patient is alert, oriented x 3, equal unlabored respirations, skin warm/dry/pink. Patient states feeling better. 14:07 Reassessment: Patient and/or family updated on plan of care and expected duration. Pain jd3 level reassessed. Patient is alert, oriented x 3, equal unlabored respirations, skin warm/dry/pink. Patient states feeling better. 15:07 Reassessment: Patient appears in no apparent distress at this time. Patient and/or jd3 family updated on plan of care and expected duration. Pain level reassessed. Patient is alert, oriented x 3, equal unlabored respirations, skin warm/dry/pink. 16:47 Reassessment: Patient appears in no apparent distress at this time. Patient and/or jd3 family updated on plan of care and expected duration. Pain level reassessed. Patient is alert, oriented x 3, equal unlabored respirations, skin warm/dry/pink. Patient states feeling better. Vital Signs: 09:51 BP 172 / 91; Pulse 104; Resp 17 S; Temp 98.3(O); Pulse Ox 93% on R/A; Weight 114.31 kg jd3 (R); Height 5 ft. 11 in. (180.34 cm) (R); Pain 9/10; 11:59 BP 166 / 89; Pulse 100; Resp 18 S; Pulse Ox 99% on 3 lpm NC; jd3 13:12 Pulse 103; Resp 17 S; Pulse Ox 98% on 3 lpm NC; jd3 14:07 BP 132 / 76; Pulse 91; Resp 17 S; Pulse Ox 99% on R/A; jd3 15:07 BP 135 / 73; Pulse 101; Resp 17 S; Pulse Ox 95% on 3 lpm NC; jd3 16:51 BP 112 / 60; Pulse 95; Resp 17 S; Pulse Ox 100% on 3 lpm NC; jd3 09:51 Body Mass Index 35.15 (114.31 kg, 180.34 cm) jd3 ED Course: 09:26 Patient arrived in ED. em1 09:45 Lawrence Ortiz, JUAN M is Primary Nurse. jd3 09:50 Triage completed. jd3 09:52 Arm band placed on. jd3 09:56 Corey Trinidad MD is Attending Physician. kdr 10:33 XRAY Chest (1 view) In Process Unspecified. EDMS 11:26 CT Abd/Pelvis - IV Contrast Only In Process Unspecified. EDMS 12:00 Bladder scan completed. 380 ml. jd3 12:15 Straight cath inserted, using sterile technique, 16 Fr. Specimen obtained. Returned jd3 300ml + neeraj colored urine. Patient tolerated well. Maintain EMS IV. Dressing intact. Good blood return noted. Site clean \\T\\ dry. Gauge \\T\\ site: 20 G left AC. 12:16 Patient has correct armband on for positive identification. Bed in low position. Call jd3 light in reach. Side rails up X 1. analytics analyst on. Pulse ox on. NIBP on. 13:22 Matty Pina MD is Hospitalizing Provider. kdr 14:06 No provider procedures requiring assistance completed. Patient admitted, IV remains in jd3 place. Administered Medications: 09:51 Drug: D50W 50 ml Route: IVP; Site: left antecubital; jd3 10:50 Follow up: Response: No adverse reaction jd3 11:14 Drug: Zofran (Ondansetron) 4 mg Route: IVP; Site: left antecubital; jd3 12:00 Follow up: Response: No adverse reaction jd3 11:15 Drug: Dilaudid 2 mg Route: IVP; Site: left antecubital; jd3 12:15 Follow up: Response: No adverse reaction; RASS: Alert and Calm (0) jd3 11:15 Drug: Pepcid 20 mg Route: IVP; Site: left antecubital; jd3 12:15 Follow up: Response: No adverse reaction jd3 13:09 Drug: D50W 50 ml Route: IVP; Site: left antecubital; jd3 14:00 Follow up: Response: No adverse reaction jd3 14:18 Drug: D50W 50 ml Route: IVP; Site: left antecubital; aa5 15:00 Follow up: Response: No adverse reaction jd3 Point of Care Testing: Blood Glucose: 14:16 Blood Glucose: 52 mg/dL; aa5 14:16 Dr. Pina at bedside. aa5 Ranges: Outcome: 13:23 Decision to Hospitalize by Provider. kdr 16:50 Admitted to Med/surg accompanied by tech, room 209, Report called to Johanne MCGOWAN jd3 16:50 Condition: stable 16:50 Instructed on the need for admit, Demonstrated understanding of instructions. 17:06 Patient left the ED. jd3 Signatures: Dispatcher [employer] EDCorey Rodríguez MD MD kdr Martinez, Eric em1 Meagan Patel, RN RN aa5 Lawrence Ortiz RN RN jd3 Corrections: (The following items were deleted from the chart) 12:00 09:51 BP 172 / 91; Pulse 104bpm; Resp 17bpm; Spontaneous; Pulse Ox 100% RA; Temp 98.3F jd3 Oral; 114.31 kg Reported; Height 5 ft. 11 in. Reported; BMI: 35.1; Pain 9/10; jd3 14:07 14:07 Reassessment: Patient and/or family updated on plan of care and expected jd3 duration. Pain level reassessed. Patient is alert, oriented x 3, equal unlabored respirations, skin warm/dry/pink. charting continued in [facility] Patient denies pain at this time. jd3 14:14 14:06 Condition: stable jd3 jd3 14:14 14:06 Admitted to ER Hold. Please see [facility] for further documentation. jd3 jd3 14:14 14:06 Instructed on the need for admit, jd3 jd3
[2020-11-12] MEDS ORDERED: D50W 25 GM/50 ML SYRINGE IV ONE (14:30)
[2020-11-12] MEDS ORDERED: ACETAMINOPHEN 500 MG TAB PO PRN (14:35)
[2020-11-12] MEDS ORDERED: ONDANSETRON 4 MG/2 ML VIAL IV PRN (14:35)
[2020-11-12] MEDS ORDERED: MORPHINE 2 MG/ML SYR IV PRN (14:35)
--- OUTSIDE RECORDS SUMMARY | 2020-11-12 14:38 | XMS REPORT | Clinical Summary ---
:1960 Author Organization [facility] Address [address] [place] [id number] Care Team Providers Name Role Phone SantiagoAdryan beltre Kylie Primary Care Provider Allergies No Known Allergies Medications Medication Sig Dispensed Refills Start End Status Date Date tamsulosin Take 0.4 mg by 0 Acti ve (FLOMAX) 0.4 mg mouth daily. Cap 24 hr capsule glimepiride Take 4 mg by mouth 0 Active (AMARYL) 4 MG 2 (two) times tablet daily . linaGLIPtin Take 5 mg by mouth 0 Active (TRADJENTA) 5 mg daily. Tab furosemide (LASIX) Take 2 tablets (40 30 tablet 0 10/27/19 Active 20 MG tablet mg total) by mouth 20 daily. morphine (MS Take 15 mg by 0 Act annabelle CONTIN) 15 MG 12 mouth 2 (two) hr tablet times daily . HYDROcodone-acetam Take 1 tablet by 15 tablet 0 10/02/20 Active inophen (NORCO mouth every 4 20 10-325) 10-325 mg (four) hours as per tablet needed for Pain. Max Daily Amount: 6 tablets docusate sodium Take 100 mg by 0 Active (COLACE) 100 MG mouth 2 (two) capsule times daily. potassium chloride Take 20 mEq by 0 Active SA mouth 2 (two) (K-DUR,KLOR-CON) times daily. 10 MEQ tablet metoprolol Take 50 mg by 0 Activ e succinate mouth 2 (two) (TOPROL-XL) 50 MG times daily. 24 hr tablet aspirin 81 MG EC Take 81 mg by 0 Active tablet mouth daily. lactulose Take 30 mLs (20 g 2000 mL 0 11/06/19 Ac tive (CHRONULAC) 20 total) by mouth 3 21 gram/30 mL (three) times solution daily. amLODIPine Take 10 mg by 0 Disco ntinued (NORVASC) 10 MG mouth daily. 020 ( Stop Taking at tablet Discharge) metoprolol Take 1 tablet (25 120 tablet 0 10/27/19 Discontinued (LOPRESSOR) 25 MG mg total) by mouth 20 020 (Stop Taking at tablet 2 (two) times Discha rge) daily. senna-docusate Take 1 tablet by 30 tablet 11 10/27/19 (SENOKOT S) 8.6-50 mouth nightly. 20 021 mg per tablet aspirin 81 MG EC Take 1 tablet (81 30 tablet 3 10/27/1910/26 tablet mg total) by mouth 20 021 daily. sotalol AF Take 1 tablet (80 60 tablet 0 10/27/19 D iscontinued (BETAPACE AF) 80 mg total) by mouth 20 020 (Stop Taking at MG tablet 2 (two) times Discha rge) daily. traMADol (ULTRAM) Take 1 tablet (50 60 tablet 0 10/27/1909/04 Discontinued 50 mg tablet mg total) by mouth 20 020 (Stop Taking at every 6 (six) Discha rge) hours as needed. Max Daily Amount: 200 mg enoxaparin Inject 0.97 mLs 60 mL 3 04/25/20 Dis continued (LOVENOX) 150 (150 mg total) 20 020 mg/mL injection subcutaneously every 12 (twelve) hours for 90 days. enoxaparin Inject 0.97 mLs 58.2 mL 2 04/27/20 Dis continued (LOVENOX) 150 (150 mg total) 20 020 ( Stop Taking at mg/mL injection subcutaneously Discharge) every 12 (twelve) hours for 90 days. digoxin (LANOXIN) Take 1 tablet (125 90 tablet 0 04/28/2029/11 Discontinued 0.125 MG tablet mcg total) by 20 020 mouth daily. metoprolol Take 1 tablet (25 90 tablet 0 04/28/20 D iscontinued succinate mg total) by mouth 20 020 (TOPROL-XL) 25 MG daily. 24 hr tablet digoxin (LANOXIN) Take 1 tablet (125 30 tablet 2 04/28/2027/11 0.125 MG tablet mcg total) by 20 020 mouth daily for 90 days. metoprolol Take 2 tablets (50 60 tablet 2 04/28/20 succinate mg total) by mouth 20 020 (TOPROL-XL) 25 MG daily for 90 days. 24 hr tablet HYDROcodone-acetam Take 1 tablet by 0 09/04 10/04 Discontinued inophen (NORCO mouth every 6 020 ( Reorder) 10-325) 10-325 mg (six) hours as per tablet needed for Pain . metoprolol Take 1 tablet (25 60 tablet 11 08/22/20 D iscontinued succinate mg total) by mouth 20 021 ( Formulary (TOPROL-XL) 25 MG 2 (two) times change) 24 hr tablet daily. polyethylene Take 17 g by mouth 510 g 2 08/22/20 glycol (GLYCOLAX) daily for 30 days. 20 020 17 gram packet enoxaparin Inject 120 mg 0 Disco ntinued (LOVENOX) 120 subcutaneously 2 021 (Stop Taking at mg/0.8 mL (two) times daily. D ischarge) SyrgIndications: deep venous thrombosis gabapentin Take 1 capsule 42 capsule 0 10/02/20 Exp ired (NEURONTIN) 300 MG (300 mg total) by 20 021 capsule mouth 3 (three) times daily for 14 days. amoxicillin-clavul Take 1 tablet by 10 tablet 0 10/02/2002/01 anate (AUGMENTIN) mouth every 12 20 021 875-125 mg per (twelve) hours for tablet 5 days. ergocalciferol Take 50,000 Units 0 Discontinued (Vitamin D2) 1,250 by mouth every 30 021 (Stop Taking at mcg (50,000 unit) (thirty) days. 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, pleural 09/30/2020 biopsy 09/30/2020 Abdominal pain 08/20/2020 Multiple subsegmental pulmonary emboli without acute c or pulmonale 04/23/2020 Colon adenocarcinoma 09/10/2018 Benign prostatic hyperplasia 07/16/2018 Diabetes mellitus 07/16/2018 Essential hypertension 07/16/2018 Descending colon CA s/p GI stent 07/15/18 07/16/2018 Large bowel obstruction 07/16/2018 Hypokalemia 07/16/2018 Morbid obesity 07/15/2018 Pneumonia 07/14/2018 History of gout 01/11/2018 Adrenal mass, left 01/18/2017 Resolved Problems Problem Noted Date Resolved Date Pleural effusion, right 09/30/2020 10/01/2020 Acute chest pain 04/22/2020 10/01/2020 SOB (shortness of breath) 10/23/2019 10/01/2020 Recurrent pleural effusion on right 10/23/201909/04 Encounters Date Type Specialty Care Team Description 11/02/2020 [facility] Cardiology Raisa Roque Other impaction of intestine (HCC); - Encounter Josey Lea abd ominal pain; 11/06/2020 MD Bre Impacted stool in intestine (HCC); Alex, Cancer related pain; MD Samir Cancer associated pain; Marla Mckinley Poor appetite; MD Thais Slow transit constipation; Bartsch, Neoplastic (mal ignant) related fatigue; Sonia Piña, Advance care planning; Palliative care by specialist; Adrenal mass, l eft (HCC); Colon adenocarc inoma (HCC); Colonic mass; Other constipat ion 11/02/2020 Travel 11/02/2020 Abstract Internal Medicine Raisa Roque MD 10/30/2020 Outside Orders Central Scheduling Stephanie Hernandez MD malignant neopl asm of colon (HCC) (Primary Dx) 10/09/2020 Hospital Radiology Manoje, Rina Pleural effusi on Encounter Roberta 10/06/2020 Outside Orders Central Scheduling Manoje, Rina Pleura l effusion Roberta (Primary Dx) 09/30/2020 Surgery Tarun Rai BRONCHOSCOPY MD Ricardo 09/30/2020 Anesthesia Event Lenora Saldana MD Cohen, Sagar Wilks MD 09/30/2020 [facility] Cardiology Fredi, Tarun Acute chest lori n - Encounter MD Ricardo 10/02/2020 09/29/2020 [facility] Tarun Rai Encounter MD Ricardo 09/29/2020 Hospital Pre-Admission Testing Tarun Rai Preop testing Encounter MD Ricardo 09/29/2020 Hospital Pre-Admission Testing Encounter 09/29/2020 Travel 09/18/2020 Orders Only Cardiac Intensive Care Rosemary Swift Pre op testing (Primary Dx) 08/21/2020 Anesthesia Event Gastroenterology Chase Mason MD Ware, Chandra Ann, CRNA 08/21/2020 Surgery Gastroenterology Julius Umanzor SIGMOIDOS COPY,FLEX MD Ron W/STENT 08/20/2020 [facility] Cardiology Karasek, Generalized abd ominal pain (Primary Dx); - Encounter MD Wojciech Colon adenocarcinoma (HCC); 08/22/2020 Clara Umanzor Essential hyper tension; MD Clark Large bowel obstruction (HCC); Alex, Multiple subseg mental pulmonary emboli without acute cor pulmonale (HCC); MD Samir Typical atrial flutter (HCC); SOB (shortness of breath) 08/20/2020 Travel 06/16/2020 [facility] Radiology Mary, Recurrent pleur al effusion on right; Encounter MD Kyle Colon adenocarc inoma (HCC) 06/16/2020 Clinic Visit Radiology Jr Hunt MD 06/05/2020 [facility] Computed Tomography Musher, Colon ca ncer Encounter MD Kyle metastasized to 1, [facility] multiple sites (HCC) [facility] Room 06/05/2020 [facility] Computed Tomography Musher, Colon ca ncer Encounter MD Kyle metastasized to 1, [facility] multiple sites (HCC) [facility] Room 05/26/2020 Orders Only Oncology Miguel Bennett Recurrent pleu ral effusion on right (Primary Dx); KAVEH Morris Colon adenocarc inoma (HCC) 05/12/2020 [facility] Radiology Mendyer, Colon cancer Encounter MD Kyle metastasized to multiple sites (HCC) 05/12/2020 Outside Orders Central Scheduling Mary, Colon c ney Wright MD metastasized to multiple sites (HCC) (Primary Dx) 04/22/2020 [facility] Cardiology Brusatori, Acute chest lori n (Primary Dx); - Encounter Bijal Acute dyspnea; 04/28/2020 MD Lor Palpitations; Margarito Preston Multiple subse gmental pulmonary emboli without acute cor pulmonale (HCC); MD Caridad Acute massive pulmonary embolism (HCC); Lou, Cancer associat ed pain; MD Zhou Pleuritic chest pain; Hayyaakov Ahmet, SOB (shortness of breath); Portillo Slow transit co nstipation; MD Ariadna Neoplastic (mal ignant) related fatigue; Palliative care by specialist; ACP (advance ca re planning); Acute pulmonary embolism without acute cor pulmonale, unspecified pulmonary embolism type (HCC); Colon adenocarc inoma (HCC); Typical atrial flutter (HCC); Essential hyper tension; Morbid obesity (HCC); Recurrent pleur al effusion on right 04/22/2020 Orders Only General Internal Medicine 04/22/2020 Travel 04/07/2020 [facility] Radiology Musher, Malignant neopl asm of colon, unspecified part of colon (HCC); Encounter MD Kyle Pleural effusio n on right 03/27/2020 Outside Orders Central Scheduling Mary, Maligna nt neoplasm of colon, unspecified part of colon (HCC) (Primary Dx); MD Kyle Pleural effusio n on right 03/13/2020 Hospital Computed Tomography Musher, Colon ca ncer Encounter MD Kyle metastasized to 1, [facility] multiple sites (HCC) [facility] Room 03/13/2020 Hospital Computed Tomography Musher, Colon ca ncer Encounter MD Kyle metastasized to 1, [facility] multiple sites (HCC) [facility] Room 02/19/2020 Outside Orders Central Scheduling Mary Colon shelbi Wright MD metastasized to multiple sites (HCC) (Primary Dx) 01/18/2020 [facility] Computed Tomography Musher, Colon ca ncer Encounter MD Kyle metastasized to 1, [facility] multiple sites (HCC) [facility] Room 01/18/2020 Hospital Computed Tomography Musher, Colon ca ncer Encounter MD Kyle metastasized to 1, [facility] multiple sites (HCC) [facility] Room 01/09/2020 Outside Orders Central Scheduling Mendyer, Colon c ney Wright MD metastasized to multiple sites (HCC) (Primary Dx) after 11/12/2019 Immunizations Name Administration Dates Next Due Influenza [...] month, have you been in contact with No / Unsure 11/02/2020 12:01 PM [employer] someone who was confirmed or suspected to have Coronavirus / COVID-19? Last Filed Vital Signs Vital Sign Reading Time Taken Comments Blood Pressure 127/70 11/06/2020 3:00 PM [employer] Pulse 107 11/06/2020 3:00 PM [employer] Temperature 36.7 C (98.1 F) 11/06/2020 3:00 PM [employer] Respiratory Rate 13 11/06/2020 3:00 PM [employer] Oxygen Saturation 94% 11/06/2020 3:00 PM [employer] Inhaled Oxygen Concentration 28% 04/26/2020 7:34 PM CDT Weight 114.2 kg (251 lb 12.8 oz) 11/02/2020 12:24 PM [employer] Height 180.3 cm (5' 10.98") 11/02/2020 10:50 AM [employer] Body Mass Index 35.13 11/02/2020 10:50 AM [employer] Plan of Treatment Health Maintenance Due Date Last Done Comments DIABETIC EYE EXAM 1970 DIABETIC FOOT EXAM 1970 HEPATITIS C SCREENING 1978 DTAP/TDAP/TD VACCINES (1 - Tdap) 12/12/1979 SHINGLES VACCINES (1 of 2) 2010 PNEUMOCOCCAL VACCINE 0-64 YRS (1 of 1 - 09/14/2018 07/20/20 18 PPSV23) URINE MICROALBUMIN 05/23/2020 05/23/2019 INFLUENZA VACCINE (#1) 2020 07/20/2018 DEPRESSION SCREENING (12+) 10/03/2020 HEMOGLOBIN A1C 10/25/2020 04/24/2020, 07/17/2018 LIPID PANEL 05/23/2022 05/23/2019 COLON CANCER SCREENING COLONOSCOPY 09/11/2028 09/11/2018, 1 Implants Implanted Type Area Order Builder Loader Device Shelf Model / Identifier Expiration Serial / Date Lot Stent Colonic Single [id number] - [id number] Stents-P N/A: BIPIN ON SCI:ENDO 06/27/2019 [id number] / Implanted: Qty: 1 on 07/15/2018 by Shiva Mejias MD at [facility] eriphera Colon / l [id number] Description:PLACED 07/15/18 Wallflex Colonic Stent [id number] [employer] C 10/25/2019 GTIN [id number] / Implanted: Qty: 1 on 09/11/2018 by Shiva Mejias MD at [facility] [id number] / [id number] Wallflex Colonic Tent [employer] 01/28/2021 [id number] / Implanted: Qty: 1 on 08/21/2020 by Julius Umanzor MD at [facility] / Procedures Procedure Name Priority Date/Time Associated Comments Diagnosis POCT-GLUCOSE METER Routine 11/06/2020 11:32 Resul ts for this AM [employer] procedure are i n the results section. POCT-GLUCOSE METER Routine 11/06/2020 7:30 Resul ts for this AM [employer] procedure are i n the results section. CBC W/PLT COUNT & AUTO Routine 11/06/2020 4:32 R esults for this DIFFERENTIAL AM [employer] procedure are i n the results section. CBC W/PLT COUNT & AUTO Routine 11/06/2020 4:32 R esults for this DIFFERENTIAL AM [employer] procedure are i n the results section. POCT-GLUCOSE METER Routine 11/06/2020 12:02 Resul ts for this AM [employer] procedure are i n the results section. CBC (HEMOGRAM ONLY) Routine 11/05/2020 6:11 Resu lts for this PM [employer] procedure are i n the results section. POCT-GLUCOSE METER Routine 11/05/2020 5:26 Resul ts for this PM [employer] procedure are i n the results section. POCT-GLUCOSE METER Routine 11/05/2020 12:02 Resul ts for this PM [employer] procedure are i n the results section. POCT-GLUCOSE METER Routine 11/05/2020 7:44 Resul ts for this AM [employer] procedure are i n the results section. HEMOGLOBIN AND Routine 11/05/2020 6:05 Results f or this HEMATOCRIT AM [employer] procedure are i n the results section. POCT-GLUCOSE METER Routine 11/05/2020 5:32 Resul ts for this AM [employer] procedure are i n the results section. POCT-GLUCOSE METER Routine 11/04/2020 11:05 Resul ts for this PM [employer] procedure are i n the results section. HEMOGLOBIN AND Routine 11/04/2020 10:22 Results f or this HEMATOCRIT PM [employer] procedure are i n the results section. POCT-GLUCOSE METER Routine 11/04/2020 5:35 Resul ts for this PM [employer] procedure are i n the results section. HEMOGLOBIN AND STAT 11/04/2020 2:00 Results f or this HEMATOCRIT PM [employer] procedure are i n the results section. POCT-GLUCOSE METER Routine 11/04/2020 12:01 Resul ts for this PM [employer] procedure are i n the results section. APTT Routine 11/04/2020 4:05 Results for this AM [employer] procedure are i n the results section. CBC (HEMOGRAM ONLY) Routine 11/04/2020 4:05 Resu lts for this AM [employer] procedure are i n the results section. POCT-GLUCOSE METER Routine 11/03/2020 11:31 Resul ts for this PM [employer] procedure are i n the results section. ABORH, MANUAL Routine 11/03/2020 10:38 Results fo r this PM [employer] procedure are i n the results section. TYPE AND SCREEN, Routine 11/03/2020 10:38 Results for this AUTOMATED PM [employer] procedure are i n the results section. APTT Routine 11/03/2020 10:38 Results for this PM [employer] procedure are i n the results section. HEMOGLOBIN AND Routine 11/03/2020 10:38 Results f or this HEMATOCRIT PM [employer] procedure are i n the results section. POCT-GLUCOSE METER Routine 11/03/2020 5:39 Resul ts for this PM [employer] procedure are i n the results section. CT CHEST WITH IV Routine 11/03/2020 4:29 Results for this CONTRAST PM [employer] procedure are i n the results section. CT ABDOMEN/PELVIS WITH Routine 11/03/2020 4:29 R esults for this IV CONTRAST PM [employer] procedure are i n the results section. APTT Routine 11/03/2020 1:17 Results for this PM [employer] procedure are i n the results section. POCT-GLUCOSE METER Routine 11/03/2020 12:10 Resul ts for this PM [employer] procedure are i n the results section. CBC W/PLT COUNT & AUTO Routine 11/03/2020 5:47 R esults for this DIFFERENTIAL AM [employer] procedure are i n the results section. APTT Routine 11/03/2020 5:47 Results for this AM [employer] procedure are i n the results section. BASIC METABOLIC PANEL Routine 11/03/2020 5:47 Re sults for this (7) AM [employer] procedure are i n the results section. CBC W/PLT COUNT & AUTO Routine 11/03/2020 5:47 R esults for this DIFFERENTIAL AM [employer] procedure are i n the results section. POCT-GLUCOSE METER Routine 11/03/2020 5:30 Resul ts for this AM [employer] procedure are i n the results section. APTT Routine 11/02/2020 11:46 Results for this PM [employer] procedure are i n the results section. POCT-GLUCOSE METER Routine 11/02/2020 11:44 Resul ts for this PM [employer] procedure are i n the results section. POCT-GLUCOSE METER Routine 11/02/2020 5:40 Resul ts for this PM [employer] procedure are i n the results section. POCT-GLUCOSE METER Routine 11/02/2020 12:20 Resul ts for this PM [employer] procedure are i n the results section. CBC W/PLT COUNT & AUTO STAT 11/02/2020 9:50 R esults for this DIFFERENTIAL AM [employer] procedure are i n the results section. APTT Add-On 11/02/2020 9:50 Results for this AM [employer] procedure are i n the results section. PROTHROMBIN TIME/INR STAT 11/02/2020 9:50 Res ults for this AM [employer] procedure are i n the results section. COMPREHENSIVE STAT 11/02/2020 9:50 Results fo r this METABOLIC PANEL AM [employer] procedure ar e in the results section. CBC W/PLT COUNT & AUTO STAT 11/02/2020 9:50 R esults for this DIFFERENTIAL AM [employer] procedure are i n the results section. XR CHEST 2 VIEWS Routine 10/09/2020 7:51 Pleural effusion Res ults for this AM [employer] procedure are i n the results section. POCT-GLUCOSE METER Routine 10/02/2020 4:38 Resul ts for this PM [employer] procedure are i n the results section. POCT-GLUCOSE METER Routine 10/02/2020 1:11 Resul ts for this PM [employer] procedure are i n the results section. XR CHEST 1 VIEW Routine 10/02/2020 10:58 Results for this PORTABLE/BEDSIDE AM [employer] procedure a re in the results section. XR CHEST 1 VIEW Routine 10/02/2020 6:47 Results for this PORTABLE/BEDSIDE AM [employer] procedure a re in the results section. (CELLAVISION MANUAL Routine 10/02/2020 4:16 Resu lts for this DIFF) AM [employer] procedure are i n the results section. CBC W/PLT COUNT & AUTO Routine 10/02/2020 4:16 R esults for this DIFFERENTIAL AM [employer] procedure are i n the results section. CBC W/PLT COUNT & AUTO Routine 10/02/2020 4:16 R esults for this DIFFERENTIAL AM [employer] procedure are i n the results section. MAGNESIUM Routine 10/02/2020 4:16 Results for this AM [employer] procedure are i n the results section. BASIC METABOLIC PANEL Routine 10/02/2020 4:16 Re sults for this (7) AM [employer] procedure are i n the results section. PREPARE LEUKO-REDUCED STAT 10/01/2020 11:54 Re sults for this RBC PM [employer] procedure are i n the results section. POCT-GLUCOSE METER Routine 10/01/2020 11:22 Resul ts for this AM [employer] procedure are i n the results section. POCT-GLUCOSE METER Routine 10/01/2020 7:30 Resul ts for this AM [employer] procedure are i n the results section. (CELLAVISION MANUAL Routine 10/01/2020 4:04 Resu lts for this DIFF) AM [employer] procedure are i n the results section. CBC W/PLT COUNT & AUTO Routine 10/01/2020 4:04 R esults for this DIFFERENTIAL AM [employer] procedure are i n the results section. CBC W/PLT COUNT & AUTO Routine 10/01/2020 4:04 R esults for this DIFFERENTIAL AM [employer] procedure are i n the results section. MAGNESIUM Routine 10/01/2020 4:04 Results for this AM [employer] procedure are i n the results section. BASIC METABOLIC PANEL Routine 10/01/2020 4:04 Re sults for this (7) AM [employer] procedure are i n the results section. XR CHEST 1 VIEW Routine 10/01/2020 1:09 Results for this PORTABLE/BEDSIDE AM [employer] procedure a re in the results section. POCT-GLUCOSE METER Routine 09/30/2020 11:48 Resul ts for this PM [employer] procedure are i n the results section. CBC (HEMOGRAM ONLY) Timed 09/30/2020 10:58 Resu lts for this PM [employer] procedure are i n the results section. TRANSFUSE Routine 09/30/2020 9:37 LEUKO-REDUCED RED PM [employer] BLOOD CELLS MAGNESIUM STAT 09/30/2020 6:04 Results for this PM [employer] procedure are i n the results section. BASIC METABOLIC PANEL STAT 09/30/2020 6:04 Re sults for this (7) PM [employer] procedure are i n the results section. TROPONIN I STAT 09/30/2020 6:04 Results for this PM [employer] procedure are i n the results section. PREPARE LEUKO-REDUCED Routine 09/30/2020 5:58 Re sults for this RBC PM [employer] procedure are i n the results section. ECG 12-LEAD Routine 09/30/2020 5:14 Results for this PM [employer] procedure are i n the results section. ECG 12-LEAD Routine 09/30/2020 5:14 PM [employer] Procedure Note - Interface, External Ris In - 09/30/2020 5:15 PM [employer] Ventricular Rate 113 BPM Atrial Rate 113 BPM P-R Interval 178 ms QRS Duration 70 ms Q-T Interval 340 ms QTC Calculation(Bazett) 466 ms P [place] 49 degrees R [place] 15 degrees T [place] 59 degrees Sinus tachycardia Nonspecific T wave abnormali ty Abnormal ECG When compared with ECG of 17:13, Premature atrial complexes a re no longer Present ECG 12-LEAD Routine 09/30/2020 5:13 PM [employer] Resu lts for this procedure are in the results section . ECG 12-LEAD Routine 09/30/2020 5:13 PM [employer] Procedure Note - Interface, External Ris In - 09/30/2020 5:15 PM [employer] Ventricular Rate 103 BPM Atrial Rate 103 BPM P-R Interval 154 ms QRS Duration 72 ms Q-T Interval 304 ms QTC Calculation(Bazett) 398 ms P [place] 45 degrees R [place] 17 degrees T [place] 68 degrees Sinus tachycardia with Viola ture atrial complexes Nonspecific T wave abnormali ty Abnormal ECG When compared with ECG of 12:53, Premature atrial complexes a re now Present Nonspecific T wave abnormali ty, worse in Anterolateral leads QT has shortened POCT-GLUCOSE METER Routine 09/30/2020 4:34 Resul ts for PM [employer] this procedure are in the results section. HEMOGLOBIN AND Routine 09/30/2020 4:31 Results f or HEMATOCRIT PM [employer] this procedure are in the results section. POCT-GLUCOSE METER Routine 09/30/2020 1:51 Resul ts for PM [employer] this procedure are in the results section. HGB/HCT (H&H) - STAT Routine 09/30/2020 11:57 Res ults for LAB AM [employer] this procedure are in the results section. CT CHEST WITHOUT IV STAT 09/30/2020 11:11 Resu lts for CONTRAST AM [employer] this procedure are in the results section. XR CHEST 1 VIEW Routine 09/30/2020 10:30 Results for PORTABLE/BEDSIDE AM [employer] this proced ure are in the results section. CALCIUM, IONIZED STAT 09/30/2020 10:15 Results for AM [employer] this procedure are in the results section. PT/APTT STAT 09/30/2020 10:15 Results for AM [employer] this procedure are in the results section. MAGNESIUM STAT 09/30/2020 10:15 Results for AM [employer] this procedure are in the results section. PHOSPHORUS STAT 09/30/2020 10:15 Results for AM [employer] this procedure are in the results section. BASIC METABOLIC PANEL STAT 09/30/2020 10:15 Re sults for (7) AM [employer] this procedure are in the results section. CBC (HEMOGRAM ONLY) STAT 09/30/2020 10:15 Resu lts for AM [employer] this procedure are in the results section. HEMOGLOBIN AND STAT 09/30/2020 10:15 Results f or HEMATOCRIT AM [employer] this procedure are in the results section. POTASSIUM STAT 09/30/2020 10:15 Results for AM [employer] this procedure are in the results section. GLUCOSE STAT 09/30/2020 10:15 Results for AM [employer] this procedure are in the results section. 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 HGB/HCT (H&H) - STAT STAT 09/30/2020 8:59 Res ults for LAB AM [employer] CLEANER this procedure are in the results section. GLUCOSE-STAT LAB STAT 09/30/2020 8:59 Results for AM [employer]IAL CLEANER this procedure are in the results section. POCT-GLUCOSE METER Routine 09/30/2020 7:26 Resul ts for AM J[employer]ITORIAL CLEANER this procedure are in the results section. THORACOSCOPY (VATS) 09/30/2020 7:09 Pleural effusion AM [employer]IAL CLEANER BRONCHOSCOPY 09/30/2020 7:09 Pleural effusion AM [employer]ORIAL CLEANER POCT-GLUCOSE METER Routine 09/30/2020 5:42 Resul ts for AM J[employer]ORIAL CLEANER this procedure are in the results section. XR CHEST 2 VIEWS Routine 09/29/2020 12:19 Results for PM J[employer]ITORIAL CLEANER this procedure are in the results section. TYPE AND SCREEN, Routine 09/29/2020 11:52 Results for AUTOMATED AM J[employer]ORIAL CLEANER this procedure are in the results section. SARS-COV2/RT-PCR Routine 09/29/2020 11:47 Preop testing Result s for ([facility] & REF LABS) AM J[employer]ORIAL CLEANER this proce dure are in the results section. POCT-GLUCOSE METER Routine 08/22/2020 9:17 Resul ts for AM J[employer]ORIAL CLEANER this procedure are in the results section. CBC W/PLT COUNT & Routine 08/22/2020 6:22 Result s for AUTO DIFFERENTIAL AM [employer] CLEANER this proce dure are in the results section. BASIC METABOLIC PANEL Routine 08/22/2020 6:22 Re sults for (7) AM J[employer] CLEANER this procedure are in the results section. CBC W/PLT COUNT & Routine 08/22/2020 6:22 Result s for AUTO DIFFERENTIAL AM J[employer] CLEANER this proce dure are in the results section. POCT-GLUCOSE METER Routine 08/21/2020 9:18 Resul ts for PM [employer]IAL CLEANER this procedure are in the results section. POCT-GLUCOSE METER Routine 08/21/2020 3:26 Resul ts for PM J[employer]ITORIAL CLEANER this procedure are in the results section. REPORT OF PROCEDURE - 08/21/2020 2:17 ENDOSCOPY URL PM JANITORIAL CLEANER FL FLUORO Routine 08/21/2020 1:55 Results for NON-SPECIFIC UP TO 1 PM J[employer]ITORIAL CLEANER this pr ocedure HOUR are in the results section. PROCEDURE W/ C-ARM 08/21/2020 12:55 Colonic obstructio n PM JANITORIAL CLEANER (HCC) SIGMOIDOSCOPY,FLEX 08/21/2020 12:55 Colonic obstructio n W/STENT PM J[employer]ITORIAL CLEANER (HCC) POCT-GLUCOSE METER Routine 08/21/2020 7:29 Resul ts for AM J[employer]ITORIAL CLEANER this procedure are in the results section. CBC W/PLT COUNT & Routine 08/21/2020 5:31 Result s for AUTO DIFFERENTIAL AM J[employer]IAL CLEANER this proce dure are in the results section. CBC W/PLT COUNT & Routine 08/21/2020 5:31 Result s for AUTO DIFFERENTIAL AM J[employer]ORIAL CLEANER this proce dure are in the results section. BASIC METABOLIC PANEL Routine 08/21/2020 5:31 Re sults for (7) AM J[employer]IAL CLEANER this procedure are in the results section. ECG 12-LEAD Routine 08/20/2020 12:53 Results for PM J[employer]ORIAL CLEANER this procedure are in the results section. SARS-COV2/RT-PCR Routine 08/20/2020 12:41 Results for ([facility] REF LABS) PM [employer] CLEANER this proce dure are in the results section. CT ABDOMEN/PELVIS STAT 08/20/2020 11:53 Result s for WITH IV CONTRAST AM J[employer]ITORIAL CLEANER this proced ure are in the results section. CBC W/PLT COUNT & STAT 08/20/2020 10:07 Result s for AUTO DIFFERENTIAL AM [employer] CLEANER this proce dure are in the results section. TROPONIN I STAT 08/20/2020 10:07 Results for AM J[employer] CLEANER this procedure are in the results section. URINALYSIS W/ REFLEX Routine 08/20/2020 10:07 Res ults for URINE CULTURE AM J[employer]IAL CLEANER this procedure are in the results section. LACTIC ACID, VENOUS STAT 08/20/2020 10:07 Resu lts for AM J[employer]IAL CLEANER this procedure are in the results section. LIPASE STAT 08/20/2020 10:07 Results for AM J[employer]ORIAL CLEANER this procedure are in the results section. COMPREHENSIVE STAT 08/20/2020 10:07 Results fo r METABOLIC PANEL AM J[employer]IAL CLEANER this procedu re are in the results section. CBC W/PLT COUNT & STAT 08/20/2020 10:07 Result s for AUTO DIFFERENTIAL AM [employer] CLEANER this proce dure are in the results section. ED ECG INTERPRETATION Routine 08/20/2020 9:50 Re sults for AM J[employer]IAL CLEANER this procedure are in the results section. ECG 12-LEAD Routine 08/20/2020 9:44 Results for AM J[employer]ITORIAL CLEANER this procedure are in the results section. [...] 376 ms QTC Calculation(Bazett) 513 ms R [place] 25 degrees T [place] 84 degrees Atrial flutter with variable A-V block ST elevation consider latera l injury or acute infarct * ACUTE [place] * Abnormal ECG When compared with ECG [...] 366 ms QTC Calculation(Bazett) 492 ms R [place] -30 degrees T [place] -28 degrees Poor data quality, interp retation may be adversely affected Atrial fibrillation with rap id ventricular response Left axis deviation Inferior infarct , age undet ermined Lateral injury pattern * ACUTE [place] * Abnormal ECG When compared with ECG [...] i n the results section . SARS-COV2/RT-PCR ([facility] & STAT 04/22/2020 8:41 PM Results for [...] 362 ms QTC Calculation(Bazett) 530 ms P [place] 75 degrees R [place] 44 degrees T [place] 126 degrees Sinus tachycardia T wave abnormality, [...] 362 ms QTC Calculation(Bazett) 530 ms P [place] 75 degrees R [place] 44 degrees T [place] 126 degrees Sinus tachycardia T wave abnormality, [...] are i n the results section. after 11/12/2019 Results POC-Glucose meter (11/06/2020 11:32 AM JANITORIAL CLEANER)Only the most recent of51 results within the time period is included. POC-Glucose Meter 151 (H) 70 - 110 mg/dL [facility] Comment: [facility] : TESTED AT [address], [address] [facility] : Oracle Software Engineer/Cd Reactor Operator ID = [id number] for LAW MARIELLEKARLO [place] Specimen Blood Performing Organization Address City/State/Zipcode Phone Number [place] [phone] CENTER CBC with platelet count + automated diff (11/06/2020 4:32 AM JANITORIAL CLEANER)Only the most recent of14 resultswithin the time period is included. Pathologist Sig nature WBC 6.4 3.5 - 10.5 [facility] RBC 3.32 (L) 4.63 - 6.08 [facility] M/L [facility] Hemoglobin 7.7 (L) 13.7 - 17.5 [facility] GM/DL [facility] Hematocrit 26.8 (L) 40.1 - 51.0 % [facility] MCV 80.7 79.0 - 92.2 fL [facility] MCH 23.2 (L) 25.7 - 32.2 pg [facility] MCHC 28.7 (L) 32.3 - 36.5 [facility] GM/DL [facility] RDW 19.4 (H) 11.6 - 14.4 % [facility] Platelets 301 150 - 450 K/CU [facility] MPV 9.8 9.4 - 12.4 fL [facility] nRBC 0 0 - 0 /100 WBC [facility] % Neutros 47 % [facility] % Lymphs 26 % [facility] % Monos 20 % [facility] % Eos 6 % [facility] % Baso 1 % [facility] # Neutros 2.97 1.78 - 5.38 [facility] # Lymphs 1.68 1.32 - 3.57 [facility] # Monos 1.24 (H) 0.30 - 0.82 [facility] # Eos 0.40 0.04 - 0.54 [facility] # Baso 0.06 0.01 - 0.08 [facility] K/L [facility] Immature 0 0 - 1 % [facility] Granulocytes-[facility] Specimen Blood Performing Organization Address City/State/Zipcode Phone Number [facility] [address] [place] [address] [place] CBC (Hemogram only) (11/05/2020 6:11 PM JANITORIAL CLEANER)Only the most recent of6 results within the time period is included. Pathologist Sig nature WBC 6.9 3.5 - 10.5 K/L [facility] RBC 3.71 (L) 4.63 - 6.08 M/L [facility] Hemoglobin 8.6 (L) 13.7 - 17.5 GM/DL [facility] Hematocrit 29.9 (L) 40.1 - 51.0 % [facility] MCV 80.6 79.0 - 92.2 fL [facility] MCH 23.2 (L) 25.7 - 32.2 pg [facility] MCHC 28.8 (L) 32.3 - 36.5 GM/DL [facility] RDW 19.4 (H) 11.6 - 14.4 % [facility] Platelets 347 150 - 450 K/CU MM [facility] MPV 9.7 9.4 - 12.4 fL [facility] nRBC 0 0 - 0 /100 WBC [facility] Specimen Blood Performing Organization Address City/State/Zipcode Phone Number [facility] [address] [place] [address] [place] Hemoglobin and hematocrit (11/05/2020 6:05 AM JANITORIAL CLEANER)Only the most recent of6 resultswithin the time period is included. Pathologist Sig nature Hemoglobin 8.7 (L) 13.7 - 17.5 GM/DL [facility] Hematocrit 30.2 (L) 40.1 - 51.0 % [facility] Specimen Blood Narrative Performed At Oracle Software Engineer ID - [id number] [facility] Performing Organization Address [facility]/Zipcode Phone Number [address] [address] CENTER aPTT (11/04/2020 4:05 AM JANITORIAL CLEANER)Only the most recent of10 resultswithin the time period is included. Pathologist Sig nature PTT 97.7 (H) 22.5 - 36.0 seconds [facility] Specimen Blood Performing Organization Address [facility] Phone Number [address] [address] CENTER Type and screen, automated (11/03/2020 10:38 PM JANITORIAL CLEANER)Only the most recent of2 resultswithin the time period is included. Pathologist Sig nature Ab Scrn NEGATIVEComment: [facility] done on Echo 1 [facility] Specimen Blood Performing Organization Address [facility] Phone Number [address] [phone] ABORH, manual (11/03/2020 10:38 PM JANITORIAL CLEANER) Pathologist Sig nature ABO Grouping A [facility] DICAL PANORA Rh Factor POS [facility] Specimen Blood Performing Organization Address [facility] Phone Number [address] [address] [address] abdomen/pelvis with IV contrast (11/03/2020 4:29 PM JANITORIAL CLEANER)Only the most recent of5 resultswithin the time period is included. Specimen Narrative Performed At FINAL REPORT GE RIS TECHNIQUE: CT of the chest, abdomen, and pelvis WITH intravenous contrast and WITH oral contrast. Dose mo dulation, iterative reconstruction, and/or weight-based adju stment of the mA/kV was utilized to reduce the radiation dose to as low as reasonably achievable. INDICATION: 59-year-old man with metasta tic colon cancer. COMPARISON: Abdomen and pelvis CT 2019, chest CT 09/30/2020. FINDINGS: LINES/TUBES: Unchanged right internal ju gular chest port terminates in the high superior vena cava. LUNGS AND AIRWAYS: Central airways are p atent. Consolidative opacities throughout the right lung, dec reased towards the lung apex. Increased number and size of scattered l eft pulmonary nodules which measure up to 7 mm. PLEURA: No significant change in right p leural nodularity. Increased size of the moderate loculated basal rig ht pleural effusion which appears to contain hemorrhagic/proteinac eous debris. HEART AND MEDIASTINUM: Visualized thyroi d gland is normal. No significant change in prominent right me diastinal and subcarinal lymph nodes which measure up to 1.8 cm. Heart and pericardium are within normal limits. HEPATOBILIARY: Multiple hepatic metastas es, some of which of increased in size; for example, the larg est metastasis has increased in size from 3.3 x 2.7 cm to 3.8 x 3.3 c m. Gallbladder is unremarkable. No biliary ductal dilatati on. SPLEEN: No splenomegaly. PANCREAS: No focal mass or ductal dilata tion. ADRENALS: Mildly increased size from 4.2 x 2.8 cm to 4.5 x 3.1 cm of the left adrenal nodule. KIDNEYS/URETERS: No hydronephrosis, calc ulus, or mass. PELVIC ORGANS/BLADDER: Prominent prostat e. Bladder is underdistended. PERITONEUM/RETROPERITONEUM: Increased om ental/peritoneal nodularity and trace ascites. LYMPH NODES: Increased size from 1.2 cm to 1.6 cm of a prominent portacaval lymph node. VESSELS: Unremarkable. GI TRACT: Telescoping stents within the descending colon. No distention or wall thickening. BONES AND SOFT TISSUES: Persistent foci of fat stranding in the superficial soft tissues of the anterior abdominal wall may be related to recent medication injections. Unchanged 1.6 x 1.4 cm lucent osseous focus in the left pubis. IMPRESSION: Chest CT: *Increased number and size of left pulmo nary nodules, suspicious for metastases. *Increased size of the debris-containing moderate loculated right pleural effusion. *Decreased consolidative opacities towar ds the right lung apex may represent improved atelectasis or pneumo geri. *Otherwise, no significant change since 09/30/2020. Abdomen and pelvis CT: *Increased size of hepatic and left adre nal metastases. *Increased size of a prominent portacava l lymph node, also suspicious for metastasis. *Worsened peritoneal carcinomatosis and trace ascites. *Otherwise, no significant change since 08/20/2020. Signed: Stephanie Duffy MD Report Verified Date/Time: 11/03/2020 18:16:39 Reading Location: [facility] B1 C013Y CT Body R eading Room Procedure Note Interface, External Ris In - 11/03/2020 6:19 PM JANITORIAL CLEANER FINAL REPORT TECHNIQUE: CT of the chest, abdomen, and pelvis WITH intravenous contrast and WITH oral contrast. Dose mo dulation, iterative reconstruction, and/or weight-based adju stment of the mA/kV was utilized to reduce the radiation dose to as low as reasonably achievable. INDICATION: 59-year-old man with metasta tic colon cancer. COMPARISON: Abdomen and pelvis CT 2019, chest CT 09/30/2020. FINDINGS: LINES/TUBES: Unchanged right internal ju gular chest port terminates in the high superior vena cava. LUNGS AND AIRWAYS: Central airways are p atent. Consolidative opacities throughout the right lung, dec reased towards the lung apex. Increased number and size of scattered l eft pulmonary nodules which measure up to 7 mm. PLEURA: No significant change in right p leural nodularity. Increased size of the moderate loculated basal rig ht pleural effusion which appears to contain hemorrhagic/proteinac eous debris. HEART AND MEDIASTINUM: Visualized thyroi d gland is normal. No significant change in prominent right me diastinal and subcarinal lymph nodes which measure up to 1.8 cm. Heart and pericardium are within normal limits. HEPATOBILIARY: Multiple hepatic metastas es, some of which of increased in size; for example, the larg est metastasis has increased in size from 3.3 x 2.7 cm to 3.8 x 3.3 c m. Gallbladder is unremarkable. No biliary ductal dilatati on. SPLEEN: No splenomegaly. PANCREAS: No focal mass or ductal dilata tion. ADRENALS: Mildly increased size from 4.2 x 2.8 cm to 4.5 x 3.1 cm of the left adrenal nodule. KIDNEYS/URETERS: No hydronephrosis, calc ulus, or mass. PELVIC ORGANS/BLADDER: Prominent prostat e. Bladder is underdistended. PERITONEUM/RETROPERITONEUM: Increased om ental/peritoneal nodularity and trace ascites. LYMPH NODES: Increased size from 1.2 cm to 1.6 cm of a prominent portacaval lymph node. VESSELS: Unremarkable. GI TRACT: Telescoping stents within the descending colon. No distention or wall thickening. BONES AND SOFT TISSUES: Persistent foci of fat stranding in the superficial soft tissues of the anterior abdominal wall may be related to recent medication injections. Unchanged 1.6 x 1.4 cm lucent osseous focus in the left pubis. IMPRESSION: Chest CT: *Increased number and size of left pulmo nary nodules, suspicious for metastases. *Increased size of the debris-containing moderate loculated right pleural effusion. *Decreased consolidative opacities towar ds the right lung apex may represent improved atelectasis or pneumo geri. *Otherwise, no significant change since 09/30/2020. Abdomen and pelvis CT: *Increased size of hepatic and left adre nal metastases. *Increased size of a prominent portacava l lymph node, also suspicious for metastasis. *Worsened peritoneal carcinomatosis and trace ascites. *Otherwise, no significant change since 08/20/2020. Signed: Stephanie Duffy MD Report Verified Date/Time: 11/03/2020 1 8:16:39 Reading Location: [facility] B1 C013Y CT Body R eading Room Performing Organization Address City/State/Zipcode Phone Number [facility] CT chest with IV contrast (11/03/2020 4:29 PM JANITORIAL CLEANER)Only the most recent of4 resultswithin the time period is included. Specimen Narrative Performed At FINAL REPORT [facility] TECHNIQUE: CT of the chest, abdomen, and pelvis WITH intravenous contrast and WITH oral contrast. Dose mo dulation, iterative reconstruction, and/or weight-based adju stment of the mA/kV was utilized to reduce the radiation dose to as low as reasonably achievable. INDICATION: 59-year-old man with metasta tic colon cancer. COMPARISON: Abdomen and pelvis CT 2019, chest CT 09/30/2020. FINDINGS: LINES/TUBES: Unchanged right internal ju gular chest port terminates in the high superior vena cava. LUNGS AND AIRWAYS: Central airways are p atent. Consolidative opacities throughout the right lung, dec reased towards the lung apex. Increased number and size of scattered l eft pulmonary nodules which measure up to 7 mm. PLEURA: No significant change in right p leural nodularity. Increased size of the moderate loculated basal rig ht pleural effusion which appears to contain hemorrhagic/proteinac eous debris. HEART AND MEDIASTINUM: Visualized thyroi d gland is normal. No significant change in prominent right me diastinal and subcarinal lymph nodes which measure up to 1.8 cm. Heart and pericardium are within normal limits. HEPATOBILIARY: Multiple hepatic metastas es, some of which of increased in size; for example, the larg est metastasis has increased in size from 3.3 x 2.7 cm to 3.8 x 3.3 c m. Gallbladder is unremarkable. No biliary ductal dilatati on. SPLEEN: No splenomegaly. PANCREAS: No focal mass or ductal dilata tion. ADRENALS: Mildly increased size from 4.2 x 2.8 cm to 4.5 x 3.1 cm of the left adrenal nodule. KIDNEYS/URETERS: No hydronephrosis, calc ulus, or mass. PELVIC ORGANS/BLADDER: Prominent prostat e. Bladder is underdistended. PERITONEUM/RETROPERITONEUM: Increased om ental/peritoneal nodularity and trace ascites. LYMPH NODES: Increased size from 1.2 cm to 1.6 cm of a prominent portacaval lymph node. VESSELS: Unremarkable. GI TRACT: Telescoping stents within the descending colon. No distention or wall thickening. BONES AND SOFT TISSUES: Persistent foci of fat stranding in the superficial soft tissues of the anterior abdominal wall may be related to recent medication injections. Unchanged 1.6 x 1.4 cm lucent osseous focus in the left pubis. IMPRESSION: Chest CT: *Increased number and size of left pulmo nary nodules, suspicious for metastases. *Increased size of the debris-containing moderate loculated right pleural effusion. *Decreased consolidative opacities towar ds the right lung apex may represent improved atelectasis or pneumo geri. *Otherwise, no significant change since 09/30/2020. Abdomen and pelvis CT: *Increased size of hepatic and left adre nal metastases. *Increased size of a prominent portacava l lymph node, also suspicious for metastasis. *Worsened peritoneal carcinomatosis and trace ascites. *Otherwise, no significant change since 08/20/2020. Signed: Stephanie Duffy MD Report Verified Date/Time: 11/03/2020 18:16:39 Reading Location: [facility] B1 C013Y CT Body R eading Room Procedure Note Interface, External Ris In - 11/03/2020 6:19 PM JANITORIAL CLEANER FINAL REPORT TECHNIQUE: CT of the chest, abdomen, and pelvis WITH intravenous contrast and WITH oral contrast. Dose mo dulation, iterative reconstruction, and/or weight-based adju stment of the mA/kV was utilized to reduce the radiation dose to as low as reasonably achievable. INDICATION: 59-year-old man with metasta tic colon cancer. COMPARISON: Abdomen and pelvis CT 2019, chest CT 09/30/2020. FINDINGS: LINES/TUBES: Unchanged right internal ju gular chest port terminates in the high superior vena cava. LUNGS AND AIRWAYS: Central airways are p atent. Consolidative opacities throughout the right lung, dec reased towards the lung apex. Increased number and size of scattered l eft pulmonary nodules which measure up to 7 mm. PLEURA: No significant change in right p leural nodularity. Increased size of the moderate loculated basal rig ht pleural effusion which appears to contain hemorrhagic/proteinac eous debris. HEART AND MEDIASTINUM: Visualized thyroi d gland is normal. No significant change in prominent right me diastinal and subcarinal lymph nodes which measure up to 1.8 cm. Heart and pericardium are within normal limits. HEPATOBILIARY: Multiple hepatic metastas es, some of which of increased in size; for example, the larg est metastasis has increased in size from 3.3 x 2.7 cm to 3.8 x 3.3 c m. Gallbladder is unremarkable. No biliary ductal dilatati on. SPLEEN: No splenomegaly. PANCREAS: No focal mass or ductal dilata tion. ADRENALS: Mildly increased size from 4.2 x 2.8 cm to 4.5 x 3.1 cm of the left adrenal nodule. KIDNEYS/URETERS: No hydronephrosis, calc ulus, or mass. PELVIC ORGANS/BLADDER: Prominent prostat e. Bladder is underdistended. PERITONEUM/RETROPERITONEUM: Increased om ental/peritoneal nodularity and trace ascites. LYMPH NODES: Increased size from 1.2 cm to 1.6 cm of a prominent portacaval lymph node. VESSELS: Unremarkable. GI TRACT: Telescoping stents within the descending colon. No distention or wall thickening. BONES AND SOFT TISSUES: Persistent foci of fat stranding in the superficial soft tissues of the anterior abdominal wall may be related to recent medication injections. Unchanged 1.6 x 1.4 cm lucent osseous focus in the left pubis. IMPRESSION: Chest CT: *Increased number and size of left pulmo nary nodules, suspicious for metastases. *Increased size of the debris-containing moderate loculated right pleural effusion. *Decreased consolidative opacities towar ds the right lung apex may represent improved atelectasis or pneumo geri. *Otherwise, no significant change since 09/30/2020. Abdomen and pelvis CT: *Increased size of hepatic and left adre nal metastases. *Increased size of a prominent portacava l lymph node, also suspicious for metastasis. *Worsened peritoneal carcinomatosis and trace ascites. *Otherwise, no significant change since 08/20/2020. Signed: Stephanie Duffy MD Report Verified Date/Time: 11/03/2020 1 8:16:39 Reading Location: [facility] B1 C013Y CT Body R eading Room Performing Organization Address City/State/Zipcode Phone Number [facility] Basic Metabolic Panel (11/03/2020 5:47 AM JANITORIAL CLEANER)Only the most recent of13 results within the time period is included. Sodium 139 136 - 145 meq/L [facility] Potassium 3.7 3.5 - 5.1 meq/L [facility] Chloride 102 98 - 107 meq/L [facility] CO2 28 22 - 29 meq/L [facility] BUN 6 (L) 7 - 21 mg/dL [facility] Creatinine 0.63 0.57 - 1.25 [facility] mg/dL [facility] Glucose 86 70 - 105 mg/dL [facility] Calcium 8.6 8.4 - 10.2 [facility] mg/dL [facility] EGFR 158Comment: mL/min/1.73 sq [facility] ESTIMATED GFR IS NOT [facility]UR[facility] CENTER CREATININE CLEARANCE IN PREDICTING GLOMERULAR FILTRATION RATE. ESTIMATED GFR IS NOT APPLICABLE FOR DIALYSIS PATIENTS. Specimen Blood Narrative Performed At [employer] Software Engineer ID - CHARLENEKWAME L [facility] Performing Organization Address City/[facility] Phone Number [facility] [address] [place] [phone] CENTER Prothrombin time/INR (11/02/2020 9:50 AM JANITORIAL CLEANER)Only the most recent of3 results within the time period is included. Pathologist Sig nature Protime 14.7 (H) 11.9 - 14.2 seconds [facility] INR 1.19 <=5.90 [facility] Specimen Blood Narrative Performed At RECOMMENDED COUMADIN/WARFARIN INR THERAPY [facility] RANGES STANDARD DOSE: 2.0 - 3.0 Includes: PROPHYLAXIS for venous thrombosis, systemic embolization; TREATMENT for venous thrombosis and/or pulmonary embolus. HIGH RISK: Target INR is 2.5-3.5 for patients with mechanical heart valves. Performing Organization Address City/[facility]/Zipcode Phone Number [facility] [address] [place] [address] CENTER Comprehensive metabolic panel (11/02/2020 9:50 AM JANITORIAL CLEANER)Only the most recent of2 resultswithin the time period is included. Protein, Total 8.2 6.0 - 8.3 [facility] gm/dL [facility] Albumin 3.3 (L) 3.5 - 5.0 [facility] g/dL [facility] Alkaline 82 40 - 150 U/L [facility] Phosphatase [facility] Total Bilirubin 0.4 0.2 - 1.2 [facility] mg/dL [facility] Sodium 137 136 - 145 [facility] meq/L [facility] Potassium 3.7 3.5 - 5.1 [facility] meq/L [facility] Chloride 102 98 - 107 [facility] meq/L [facility] CO2 26 22 - 29 meq/L [facility] BUN 5 (L) 7 - 21 mg/dL [facility] Creatinine 0.64 0.57 - 1.25 [facility] mg/dL [facility] Glucose 65 (L) 70 - 105 [facility] mg/dL [facility] Calcium 8.6 8.4 - 10.2 [facility] mg/dL [facility] AST 15 5 - 34 U/L [facility] ALT 7 6 - 55 U/L [facility] EGFR 155Comment: mL/min/1.73 [facility] ESTIMATED GFR IS sq [facility] NOT ACCURATE MEDICAL CENTER CREATININE CLEARANCE IN PREDICTING GLOMERULAR FILTRATION RATE. ESTIMATED GFR IS NOT APPLICABLE FOR DIALYSIS PATIENTS. Specimen Blood Narrative Performed At Oracle Software Engineer ID - SAHRA Oliver [facility] Performing Organization Address City/State/Zipcode Phone Number [facility] [address] [place] [address] CENTER XR Chest 2 Views (10/09/2020 7:51 AM JANITORIAL CLEANER)Only the most recent of3 resultswithin the time period is included. Specimen Narrative Performed At FINAL REPORT [facility] EXAMINATION: RAD, CHEST, 2 VIEWS INDICATION: Pleural [...] Report Verified Date/Time: 10/09/2020 09:28:01 Reading Location: [place] [facility] Reading Amisha m 1 - B01.627 Electronically signed by: STARR miller 10/09/2020 09:28 AM Procedure Note Interface, External Ris In - 10/09/2020 9:30 AM JANITORIAL CLEANER FINAL REPORT EXAMINATION: RAD, CHEST, 2 VIEWS [...] Verified Date/Time: 10/09/2020 0 9:28:01 Reading Location: [place] [facility] Reading Amisha m 1 - B01.627 Performing Organization Address City/State/Zipcode Phone Number [facility] XR chest 1 view portable / bedside (10/02/2020 10:58 AM JANITORIAL CLEANER)Only the most recent of6 resultswithin the time [...] Report Verified Date/Time: 10/02/2020 12:26:12 Reading Location: [employer] Reading Room Procedure Note Interface, External Ris In - 10/02/2020 12:28 PM JANITORIAL CLEANER FINAL REPORT CLINICAL HISTORY: s/p ChT removal [...] Verified Date/Time: 10/02/2020 1 2:26:12 Reading Location: [employer] Reading Room Performing Organization Address City/State/Zipcode Phone Number [facility]IS Manual Differential (10/02/2020 4:16 AM JANITORIAL CLEANER)Only the most recent of2 results within the time period is included. Pathologist Sig nature % Neutros 72 % [facility] % Lymphs 8 % [facility] % Monos 8 % [facility] % Eos 7 % [facility] % Baso 2 % [facility] % Atypical Lymphs 2 (H) 0 - 0 % [facility] # Neutros 7.63 (H) 1.78 - 5.38 K/ul [facility] # Lymphs 0.85 (L) 1.32 - 3.57 K/ul [facility] # Monos 0.85 (H) 0.30 - 0.82 K/uL [facility] # Eos 0.74 (H) 0.04 - 0.54 K/uL [facility] # Baso 0.21 (H) 0.01 - 0.08 K/uL [facility] # Atypical Lymphs 0.21 (H) 0.00 - 0.00 K/uL [facility] Total Counted 100 [facility] WBC Morphology Normal [facility] Giant Platelet Present [facility] Large Platelet Present [facility] Polychromasia 1+ few [facility] Hypochromia 1+ few [facility] Poikilocytes 1+ few [facility] Spherocytes 1+ few [facility] Ovalocytes 1+ few [facility] Tear Drop Cells 1+ few [facility] Artifact Present [facility] Platelet Conc Adequate [facility] Specimen Blood Narrative Performed At Oracle Software Engineer DARYN Mendoza [facility] User comments: Slide comments: WBC: SEGMENTED WITH TOXIC GRANULATIONS PRESENT Performing Organization Address City/State/Zipcode Phone Number [facility] [address] [place] [address] CENTER Magnesium (10/02/2020 4:16 AM JANITORIAL CLEANER)Only the most recent of10 resultswithin the time period is included. Pathologist Sig nature Magnesium 2.2 1.6 - 2.6 mg/dL [facility] Specimen Blood Narrative Performed At Oracle Software Engineer ID - ARGENIS Coburn [facility] Performing Organization Address City/[facility]/Zipcode Phone Number [address] [address] CENTER Prepare Leuko-Red RBC (10/01/2020 11:54 PM JANITORIAL CLEANER)Only the most recent of2 results within the time period is included. Pathologist Sig nature CROSSMATCH COMPATIBLE SAFETRACE TX Unit ABO A Pos SAFETRACE TX UNIT NUMBER [id number] SAFETRACE TX Status TX_TIMEINCHART SAFETRACE TX Blood Bank Product RED BLOOD CELLS SAFETRACE TX PRODUCT CODE [id number] SAFETRACE TX CROSSMATCH COMPATIBLE SAFETRACE TX Unit ABO A Pos SAFETRACE TX UNIT NUMBER [id number] SAFETRACE TX Status RETURNED FROM ISSUE SAFETRACE TX Blood Bank Product RED BLOOD CELLS SAFETRACE TX PRODUCT CODE [id number] SAFETRACE TX Specimen Other Performing Organization Address [facility] Phone Number SAFETRACE TX Transfuse Leuko-Red RBC (09/30/2020 9:37 PM JANITORIAL CLEANER)Troponin I (09/30/2020 6:04 PM JANITORIAL CLEANER)Only the most recent of5 resultswithin the time period is included. Pathologist Sig idris Troponin I <0.01 0.00 - 0.03 ng/mL [facility] Specimen Blood Narrative Performed At Troponin I (TnI) levels must be interpreted [facility] in the context of the presenting symptoms and the clinical findings. Elevated TnI levels indicate myocardial damage, but are not specific for ischemic heart disease. Elevated TnI levels are seen in patients with other cardiac conditions (including myocarditis and congestive heart failure), and slight TnI elevations occur in patients with other conditions, including sepsis, renal failure, acidosis, acute neurological disease, and persistent tachyarrhythmia. Oracle Software Engineer ID - BS Performing Organization Address City/[facility]/Zipcode Phone Number [address] [address] CENTER ECG 12 lead (09/30/2020 5:14 PM JANITORIAL CLEANER)Only the most recent of6 resultswithin the time period is included. Specimen Narrative Performed At Ventricular Rate 113 BPM GE MUSE Atrial Rate 113 BPM P-R Interval 178 ms QRS Duration 70 ms Q-T Interval 340 ms QTC Calculation(Bazett) 466 ms P Naturita 49 degrees R Naturita 15 degrees T Naturita 59 degrees Sinus tachycardia with frequent Prematur e atrial complexes Nonspecific T wave abnormality Abnormal ECG When compared with ECG of 30-SEP-2020 17 :13, No significant changes Confirmed by MD CHAMPION JOSEPH P ([id number]) on 10/01/20 8:18:03 AM Procedure Note Interface, External Ris In - 10/01/2020 8:18 AM JANITORIAL CLEANER Ventricular Rate 113 BPM Atrial Rate 113 BPM P-R Interval 178 ms QRS Duration 70 ms Q-T Interval 340 ms QTC Calculation(Bazett) 466 ms P Naturita 49 degrees R Naturita 15 degrees T [place]ita 59 degrees Sinus tachycardia with frequent Prematur e atrial complexes Nonspecific T wave abnormality Abnormal ECG When compared with ECG of 30-SEP-2020 17 :13, No significant changes Confirmed by MD CHAMPION JOSEPH P ([id number]) on 10/01/2020 8:18:03 AM Performing Organization Address City/[facility] Phone Number [facility] management HGB/HCT (H&H)-Stat Lab (09/30/2020 11:57 AM JANITORIAL CLEANER)Only the most recent of2 resultswithin the time period is included. Pathologist Sig nature Hemoglobin 7.6 (L) 13.0 - 16.8 GM/DL [facility] Hematocrit 22.0 (L) 40.0 - 50.0 % [facility] Specimen Blood, Arterial Performing Organization Address City/[facility] Phone Number [facility] [address] [place] [address] chest without IV contrast (09/30/2020 11:11 AM JANITORIAL CLEANER) Specimen Narrative Performed At FINAL REPORT [employer] TECHNIQUE: CT of the chest WITHOUT intra [...] Report Verified Date/Time: 09/30/2020 13:19:51 [facility] [id number] Reading Room Procedure Note Interface, External Ris In - 09/30/2020 1:22 PM JANITORIAL CLEANER FINAL REPORT TECHNIQUE: CT of the chest [...] Verified Date/Time: 09/30/2020 1 3:19:51 Reading Location: [facility] B1 [id number] Ortho Con sult Reading Room Performing Organization Address City/[facility] Phone Number GE RIS PT/aPTT (09/30/2020 10:15 AM JANITORIAL CLEANER)Only the most recent of3 resultswithin the time period is included. Pathologist Sig nature Protime 16.0 (H) 11.9 - 14.2 seconds [facility] INR 1.32 <=5.90 [facility] PTT 33.1 22.5 - 36.0 seconds [facility] Specimen Blood Narrative Performed At Effective 02/28/2019: PT Reference Range [facility] Change New: 11.9-14.2 Previous: 11.7-14.7 RECOMMENDED COUMADIN/WARFARIN INR THERAPY RANGES STANDARD DOSE: 2.0-3.0 Includes: PROPHYLAXIS for venous thrombosis, systemic embolization; TREATMENT for venous thrombosis and/or pulmonary embolus. HIGH RISK: Target INR is 2.5-3.5 for patients wiht mechanical heart valves. Performing Organization Address [facility] Phone Number [address] [address] CENTER Calcium, Ionized (09/30/2020 10:15 AM JANITORIAL CLEANER) Pathologist Sig nature Calcium, Ion 1.16 1.12 - 1.27 mmol/L [facility] pH, Blood 7.35 [facility] Specimen Blood Performing Organization Address City/[facility] Phone Number [address] [address] CENTER Potassium (09/30/2020 10:15 AM JANITORIAL CLEANER) Pathologist Sig nature Potassium 3.6 3.5 - 5.1 meq/L [facility] Specimen Blood Performing Organization Address City/[facility] Phone Number [address] [address] CENTER Phosphorus (09/30/2020 10:15 AM JANITORIAL CLEANER)Only the most recent of7 resultswithin the time period is included. Pathologist Sig nature Phosphorus 4.4 2.3 - 4.7 mg/dL [facility] Specimen Blood Narrative Performed At Oracle Software Engineer ID - SAHRA Oliver [facility] Performing Organization Address City/[facility] Phone Number [address] [phone] CENTER Glucose (09/30/2020 10:15 AM JANITORIAL CLEANER) Pathologist Sig nature Glucose 126 (H) 70 - 105 mg/dL [facility] Specimen Blood Performing Organization Address [facility] Phone Number [address] [phone] CENTER Tissue Exam (09/30/2020 9:05 AM JANITORIAL CLEANER) Case Report Surgical Pathology Report Case: [id number] [facility] Authorizing Provider: Tarun Coker MD Collected: 09/30/2020 09:05 AM [facility] Ordering Location: [facility] PURDY Received: 09/30/2020 09:23 AM MEDICAL PERIOPERATIVE [facility] Pathologist: Allen Velazquez MD Specimens: A) - Pleural, Right, RIGHT PLEURAL BIOPSY B) - Pleu ral, Right, RIGHT PLUERAL BIOPSY R/O CANCER DIAGNOSIS A. PLEURA, RIGHT, BIOPSY: [facility] E lectronically MODERATELY DIFFERENTIATED ADENOCARCINOMA. [facility] signed by Caroline, SEE DIAGNOSTIC COMMENT. MEDICAL Cirilopeyton Ramirez MD CENTER on 10/08/2020 at B. PLEURA, RIGHT, BIOPSY: 9: 40 AM MODERATELY DIFFERENTIATED ADENOCARCINOMA. Signing Pathologist Direct Phone Line: [phone] COMMENT Immunohistochemical [facility] studies performed on [facility] block A2 demonstrate the MEDICAL tumor cells to be CENTER positive for CK20 and CDX2. They are negative for CK7 and TTF1. The immunophenotypic as well as the morphologic findings are compatible with an adenocarcinoma of colonic origin. CPT Code(s) 31325, 47401 X 2, 95723, [facility] 18140w3 [facility] CLINICAL HISTORY Preoperative diagnosis: [facility] Pleural effusion. [facility] SPECIMEN SOURCE A. Pleural, right [facility] B. Pleural, right [facility] GROSS DESCRIPTION Part A received in formalin labeled with the patient's name, date of , assigned accession number and "pleural, right" consists of multiple tucker-black fragments of soft tissue measuring between 0.[address] [facility] to 1.5 cm in greatest dimens ion and 2 x 2.5 x 0.8 cm in aggregate. The entire tissue is submitted in cassettes A1-A3. [facility] Part B received fresh for in traoperative [...] remainder of the frozen section). LC/ew INTRAOPERATIVE [facility] CONSULTATION B. PLEURA, RIGHT, BIOPSY: [facility] - POSITIVE FOR [facility] MICROSCOPIC Performed. [facility] SPECIAL STUDIES The interpretation of this c ase included the use of immunohistochemistry or special stains. [facility] Control Slides Examined: In -house known positive controls were evaluated along with the test tissue. These control slides run alongside of the patients sample show appropriate staining. Internal [facility] MEDICAL annabelle and negative controls when available are evaluated CENTER Immunohistochemistry technic al testing was performed at [facility], Pathology Laboratory where it was developed and its performance characteristics were determined. It has not be en cleared or approved by [facility] U.S. Food and Drug Administration. The FDA [...] A2- CK7, CK20, CDX2, TTF1 Gross assessment [facility] 'S was performed at [facility] Pathology, [address] [place] [address] CENTER [id number], Technical component [facility] was performed at [facility] Pathology, [address] [place] [address] CENTER [id number], [facility] component was [facility] performed at Pathology, [address] [place] [id number], Specimen Tissue - Structure of right pleural cavi ty (body structure) Tissue specimen (specimen) - Structure o f right pleural cavity (body structure) Performing Organization Address City/[facility]/Zipcode Phone Number [address] [address] [facility] Glucose-Stat Lab (09/30/2020 8:59 AM JANITORIAL CLEANER) Pathologist Sig nature Glucose 101 70 - 110 mg/dL [facility] Specimen Blood, Arterial Performing Organization Address [facility]/Zipcode Phone Number [address] [address] CENTER SARS-CoV2/RT-PCR ([facility]) (09/29/2020 11:47 AM JANITORIAL CLEANER)Only the most recent of3 resultswithin the time period is included. SARS-COV2/RT-PCR Negative Not Detected, [facility] Negative, See [facility] external report CENTER for linked test SARS-COV-2 [facility] VIRGEN [facility] PERFORMING LAB [facility] Specimen Other - Nasopharyngeal wall structure (b monty structure) Narrative Performed At Negative result for this test determines that [facility] SARS-CoV-2 RNA was not present in the [...] the Act. Fact Sheet for Healthcare Providers: https://www.[employer]/sites/default/files/pro duct/documents/Fact_Sheet_HC_Providers_Lyra_SA RS-CoV-2.pdf Fact Sheet for Healthcare Patients: https://www.[employer].com/sites/default/files/pro duct/documents/Fact_Sheet_Patients_Lyra_SARS-C oV-2.pdf Performing Laboratory: [address] [place] [address] Performing Organization Address City/State/Zipcode Phone Number [facility]ICAL [address] [place] [address] CENTER REPORT OF PROCEDURE - ENDOSCOPY URL (08/21/2020 2:17 PM JANITORIAL CLEANER) Narrative Performed At This result has an attachment that is no t available. [place] fluoro non-specific up to 1 hour (08/21/2020 1:55 PM JANITORIAL CLEANER) Specimen Narrative Performed At Fluoroscopic unit utilized for a procedure performed i n the OR. No [facility] interpretation was requested. Refer to the operative report for findings. Refer to PACS for patient radiation dose i nformation. Procedure Note Interface, External Ris In - 08/21/2020 5:26 PM JANITORIAL CLEANER Fluoroscopic unit utilized for a procedu re performed in the OR. No interpretation was requested. Refer to the operative r eport for findings. Refer to PACS for patient radiation dose information. Performing Organization Address City/State/[facility] Phone Number [facility] Urinalysis w/Microscopic + Reflex to Culture (08/20/2020 10:07 AM JANITORIAL CLEANER) Color, UA Yellow [facility] Clarity, UA Clear [facility] Specific [place], 1.020 1.005 - 1.030 [facility] pH, UA 6.0 5.0 - 9.0 [facility] Protein, UA Negative Negative [facility] Glucose, UA Negative Negative [facility] Ketones[facility] UA Negative Negative [facility] Bilirubin, UA Negative Negative [facility] Blood, UA Trace (A) Negative [facility] Nitrite, UA Negative Negative [facility] Leukocytes, UA Negative Negative [facility] Urobilinogen, UA 0.2 0.2 - 1.0 mg/dL [facility] Bacteria, UA Occasional [facility] RBC, UA <5 /HPF [facility] WBC, UA <5 /HPF [facility] Specimen Source [facility] Specimen Urine Performing Organization Address City/[facility] Phone Number [facility] [address] [place] [address] Lactic acid, venous (08/20/2020 10:07 AM JANITORIAL CLEANER)Only the most recent of3 results within the time period is included. Lactate, Venous 1.60Comment: 0.50 - 2.20 [facility] Specimen markedly mmol/L [facility] hemolyzed Specimen Blood Performing Organization Address [facility] Phone Number [facility] [address] [place] [address] Lipase (08/20/2020 10:07 AM JANITORIAL CLEANER) Pathologist Sig nature Lipase 26 8 - 78 U/L [facility] Specimen Blood Performing Organization Address [facility] Phone Number [facility] [address] [place] [address] ECG/EKG Interpretation (08/20/2020 9:50 AM JANITORIAL CLEANER) Narrative Performed At Wojciech Mcdermott MD 08/20/2020 [...] CDT) Specimen Narrative Performed At FINAL REPORT [facility] History: Recurrent right pleural effusio ns, patient [...] Report Verified Date/Time: 06/24/2020 16:22:21 Reading Location: [place] [id number] Angio Body Reading Room Procedure Note Interface, [...] Verified Date/Time: 06/24/2020 1 6:22:21 Reading Location: [place] [address] Angio Body Reading Room Performing Organization Address City/State/Zipcode Phone Number [employer] RHYTHM STRIP - SCAN (04/29/2020 2:02 PM CDT) Narrative Performed At This result has an attachment that is no t available. Digoxin level (04/26/2020 6:02 AM CDT) Pathologist Sig nature Digoxin Lvl 1.14 0.80 - 2.00 ng/mL [facility] Specimen Blood Narrative Performed At Oracle Software Engineer ID - MORENO [facility] Performing Organization Address City/State/Zipcode Phone Number [facility] [address] [place] [address] CENTER Heparin Assay - Low Molecular Weight (04/25/2020 10:00 AM CDT) Pathologist Sig nature Anti 10A-Lovenox 1.05 0.60 - 2.00 u/ml [facility] Specimen Blood Narrative Performed At Anti-Factor 10-A Level (Heparin Assay for Low [facility] Molecular Weight Heparin) Monitoring Guidelines: Blood samples should be obtained 4 hours post subcutaneous injection (time of Peak level) Therapeutic Peak Levels: 0.6-1.0 units/mL twice daily enoxapar in 1.0-2.0 units/mL once daily enoxapari n Ref: CHEST 2012;141:[id number] Please draw 4 hours after enoxaparin dose for accurate level. Performing Organization Address City/State/Zipcode Phone Number [address] [address] CENTER TSH/Free T4 If Indicated (04/24/2020 3:21 AM CDT) Pathologist Sig nature TSH 0.685 0.350 - 4.940 uIU/mL [facility] Specimen Blood Narrative Performed At Oracle Software Engineer ID - EDASI [facility] Performing Organization Address [facility] Phone Number [address] [address] CENTER Hemoglobin A1c (04/24/2020 3:21 AM CDT) Pathologist Sig nature Hemoglobin A1C 6.9 (H) 4.3 - 6.1 % [facility] Specimen Blood Performing Organization Address [facility] Phone Number [address] [address] CENTER B-type Natriuretic Factor (BNP) (04/23/2020 8:21 PM CDT)Only the most recent of 2 resultswithin the time period is included. Pathologist Sig nature BNP 85 0 - 100 pg/mL [facility] Specimen Blood Narrative Performed At Oracle Software Engineer ID - BS [facility] Performing Organization Address [facility] Phone Number [address] [address] CENTER Hepatic function panel (04/23/2020 8:21 PM CDT) Protein, Total 7.8Comment: 6.0 - 8.3 [facility] Specimen gm/dL [facility] hemolyzed Albumin 3.5Comment: 3.5 - 5.0 [facility] Specimen g/dL [facility] hemolyzed Total Bilirubin 0.5Comment: 0.2 - 1.2 [facility] Specimen mg/dL [facility] hemolyzed Bilirubin, Direct 0.2Comment: 0.1 - 0.5 [facility] Specimen mg/dL [facility] hemolyzed Alkaline 74 40 - 150 U/L [facility] AST 29Comment: 5 - 34 U/L [facility] hemolyzed ALT 14Comment: 6 - 55 U/L [facility] hemolyzed Specimen Blood Narrative Performed At [employer] Software Engineer ID - BS [facility] Performing Organization Address City/[facility] Phone Number [place] [phone] PANORA Procalcitonin (04/23/2020 9:17 AM CDT) Pathologist Sig nature Procalcitonin <0.05 <0.05 ng/mL [facility] Specimen Blood Narrative Performed At SEPSIS RISK (ng/mL) [facility] Low: 0.05-0.50 Intermediate: 0.51-2.00 High: >=2.01 Performing Organization Address [facility] Phone Number [address] [address] CENTER 2D Echo W/Doppler(CW/PW/Color) (04/23/2020 2:09 AM CDT) Pathologist Sig nature Ejection Fraction [facility] ECHO [facility] Specimen Narrative Performed At Transthoracic Echocardiography Report (T TE) [facility] Demographics Patient Name SHAI LARA Date of Study 04/23/2020 Gender Male Visit Number [id number] Race Black Room Number ED27 Number Date of 1960 Referring Physician Constance jha Age 59 year(s) Real Estate Investor Tr Garnett [facility] Interpreting Mario Martinez MD Physician Fellow [...] Study 04/23/2020 Caitlin arellano Male Visit Number [id number] Race Black Room Number ED27 Number Date of 1960 Refer [facility] Physician Constance Horowitz Age 59 year(s) Sonog rapher Tr Garnett, [facility] Inter preting Mario Martinez MD Physi [...] T CI: 2.33 l/min/m^2 Performing Organization Address [facility] Phone Number [facility] E[facility] HEART[facility] MKCK[facility]ON [facility] Blood gas, arterial (04/23/2020 1:01 AM CDT) Pathologist Sig nature pH, Arterial 7.44 7.35 - 7.45 [facility] pCO2, Arterial 36 35 - 45 mmHg [facility] pO2, Arterial 108 (H) 80 - 90 mmHg [facility] O2 Sat, Arterial 98.1 (H) 96.0 - 97.0 % [facility] HCO3, Arterial 24 21 - 29 mmol/L [facility] Base Excess, Arterial -0.1 -2.0 - 3.0 [facility] mmol/L [facility] Patient Temperature 36.8 C [facility] FIO2 28.0 % [facility] Specimen Blood, Arterial Performing Organization Address [facility] Phone Number [facility] [address] [place] [address] PANORA Blood Culture - Routine (Left Venipuncture) (04/22/2020 10:31 PM CDT)Only the most recent of2 resultswithin the time period is included. Pathologist Sig nature Result No growth in 5 days [facility] Specimen Blood - Entire left upper arm (body stru cture) Performing Organization Address [facility] Phone Number [facility] [address] [place] [address] chest PE test design (04/22/2020 9:42 [...] Report Verified Date/Time: 04/22/2020 21:52:23 [facility] [address] [place] [address] Reading Room Procedure Note Interface, External Ris [...] Verified Date/Time: 04/22/2020 2 1:52:23 Reading Location: [address] Reading Room Performing Organization Address City/State/Zipcode Phone Number GE RIS Venous doppler legs bilateral (04/22/2020 9:07 PM CDT) [facility] Sig nature Ejection Fraction [facility] ECHO HEARTLAB [employer] ESSON CPACS Specimen Impressions Performed At Right Impression [facility] ECHO HEART[facility] 1. There is no deep venous obstruction [...] PV LAB - Lower Extremities DVT Study [facility]ART[facility] Demographics Patient Name SHAI LARA Date of Study 04/22/2020 JR. Age 59 Visit Number [id number] Gender Male Accession Number [id number] Date of 1960 Referring Constance Appiah Room Number [id number] Physician Lor Real Estate Investor Leighton Escobedo Interpreting Marla Garza, Physician Procedure [...] Study 04/22/2020 Ag e 59 Visit Number [id number] Ge nder Male Accession Number [id number] Da te of 1960 Referring Constance Appiah Ro om Number [id number] Physician [place] Real Estate Investor Leighton Escobedo In terpreting Marla Garza, Ph [...] City/State/Zipcode Phone Number [facility] (04/22/2020 8:42 PM CDT) Narrative [...] spent personally by me on the f [facility] activities: blood draw for specimens, discussions wi [...] . D-dimer, quantitative (04/22/2020 7:37 PM CDT) [facility] idris D-Dimer, Quant 19.48 (H) <0.50 MG/L FEU [facility] Specimen Blood - Entire right upper arm (body str ucture) Narrative Performed At Intended Use: The D-Dimer Assay can be used [facility] to aid in the diagnosis of Deep Vein Thrombosis (DVT) and Pulmonary Embolism Disease (PED). In patients with low pre-test probability, various studies concerning STA Liatest D-dimer test have reported that with a cutoff value of 0.50 MG/L FEU, the Negative Predictive Value (NPV) regarding the exclusion of thrombosis is within 95-100% range. Performing Organization Address City/State/Zipcode Phone Number [facility] [address] [place] [address] CENTER ANG INTRAPERITONEAL PERMANENT CATHETER (04/07/2020 10:06 AM CDT) Specimen Narrative Performed At FINAL REPORT [facility] Tunneled right pleural catheter insertion, 04/07/2020. History: Recurrent malignant pleural effusion. Modality:Fluoroscopy. Sedation: Versed 1.5 mg and fentanyl 100 mcg was given intravenously for conscious sedation. Vital signs we re monitored throughout the procedure by a nurse, and remained stabl e. Physician intra-service time was 40 minutes. Intelligence Applications: [employer]el[employer]. [employer] Supervisor: Nichol. Approach: Right lateral chest. Estimated blood [...] Spot radiograph of the chest demonstrates the Paddy Pleurex catheter to lie in the expected position with its tip overlying the right midlung. Final x-r ay demonstrates significant decrease in right pleural effusion without evidence of pneumothorax. Impression: Successful, uncomplicated placement of a right Paddy Pleurex tunneled catheter using fluoroscopic guidance and cons cious sedation. Signed: Brock Krause MD Report Verified Date/Time: 04/08/2020 14:28:27 [facility] P048 Angio Body Reading Room Procedure Note Interface, [...] e. Physician intra-service time was 40 minutes. Intelligence Applications: Nelida. [employer] Supervisor: Nichol. Approach: Right lateral chest. Estimated blood [...] lateral chest wall by blunt dissection. A [place] Pleurex c atheter was brought through the [...] right Paddy Pleurex tunneled catheter using fluoroscopic mahad dance and conscious sedation. Signed: Brock Krause MD Report Verified Date/Time: 04/08/2020 1 4:28:27 Reading Location[facility] P048 Angio Body Reading Room Performing Organization Address City/State/Zipcode Phone Number GE RIS POC-Creatinine (01/18/2020 7:59 AM CDT) POC-Creatinine 0.9Comment: : 0.6 - 1.3 [facility] TESTED AT [facility] mg/dL [facility] [address] [facility] [address], [facility] [id number]: Oracle Software Engineer/Technicia n ID = [id number] for MARY GARNETT POC-EGFR 105 mL/min/1.73M2 [facility] Specimen Blood Performing Organization Address City/State/Zipcode Phone Number [facility] [address] [place] [address] CENTER after 11/12/2019 Advance Directives For more information, please contact: [phone] Code Status Date Activated Date Inactivated Comments Full Code 11/02/2020 9:28 AM 11/06/2020 9:59 PM This code status was determined by: Patient Full Code 09/30/2020 1:16 PM 10/02/2020 7:51 [...]
--- OUTSIDE RECORDS SUMMARY | 2020-11-12 14:45 | XMS REPORT | Continuity of Care Document ---
:1960 Author Organization [facility] t Address [address] [place] [address] Dr. Perry. [address] [place] [address] Care Team Providers Name Role Phone Adryan Santiago Kylie Primary Care Physician Josey Desir MD Attending Clinician Rubia TORRE Attending Clinician Thais cMkinley MD Attending Clinician Ayana Mansfield MD Attending Clinician JOSEY DESIR Attending Clinician Unavailable Altaf TORRE Attending Clinician Maile Bennett NP Attending Clinician Fredi TORRE Attending Clinician Roberta Masterson Attending Clinician Altaf TORRE Attending Clinician Roberta Mcelroy Attending Clinician SALVADOR RAI Attending Clinician Unavailable Salvador Rai MD Attending Clinician Shana TORRE Attending Clinician Efe Figueredo MD Attending Clinician Benny Florez MD Attending Clinician JamisonJanie Attending Clinician Sharron TORRE Attending Clinician Clark Sands MD Attending Clinician Joaquin Mason MD Attending Clinician Stefanie Sneed CRNA Attending Clinician Ron Sands MD Attending Clinician SHARRON Attending Clinician Unavailable Ashvin Lobo MD Attending Clinician ALTAF Attending Clinician Unavailable Alireza Hunt MD Attending Clinician Eusebio TORRE Attending Clinician 1, [facility] Room Attending Clinician Unavailable Maile Bennett NP Attending Clinician Lor Goldberg MD Attending Clinician Caridad Preston MD Attending Clinician Marguerite TORRE Attending Clinician Ariadna Young MD Attending Clinician LOR GOLDBERG Attending Clinician Unavailable Johny TORRE Attending Clinician JOSEY IRIZARRY Attending Clinician Unavailable Kaykay ODONNELL Attending Clinician Carolyne TORRE Attending Clinician BRYANT SPARKS Attending Clinician Unavailable Mc ALVARADO Attending Clinician Unavailable RUBIA Admitting Clinician Unavailable SALVADOR RAI Admitting Clinician Unavailable CLARK SANDS Admitting Clinician Unavailable ALTAF Admitting Clinician Unavailable SANTOSH Admitting Clinician Unavailable MARGUERITE Admitting Clinician Unavailable BRYANT SPARKS Admitting Clinician Unavailable Mc ALVARADO Admitting Clinician Unavailable Payers Payer Name Policy Type Policy Effective Date Expiration Date [facility] Number [id number] 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 00:00: [facility] jessica pleural pleural 00 [place] effusion effusion s/p R VATS s/p R VATS decorticat decorticat ion, ion, pleural pleural biopsy biopsy 09/30/2020 09/30/2020 Abdominal Abdominal Disease Active 2019-[address] [facility] [address] pain pain 1-18 [facility] - 00:00: Medical 00 [place] Multiple Multiple Disease Active [facility] subsegment subsegment 7-22 [facility] k[facility] - al al 00:00: Medical pulmonary pulmonary 00 Cent er emboli emboli without without acute cor acute cor pulmonale pulmonale Colon Colon Disease Active 2017-[address] [facility] [address] adenocarci adenocarci 2-09 [facility] k[facility] - noma noma 00:00: Medical 00 [place] Benign Benign Disease Active 2017-[address] [facility] prostatic prostatic 0-14 [facility] - hyperplasi hyperplasi 00:00: Me dical a a 00 [place] Diabetes Diabetes Disease Active 2017-10 [facility] mellitus mellitus 0-14 [facility] - 00:00: Medical 00 [place] Essential Essential Disease Active 2017-[address] [facility] hypertensi hypertensi 0-14 [facility] kes - on on 00:00: Medical 00 [place] Descending Descending Disease Active 2017-[address] colon CA colon CA 0-14 [facility] - s/p GI s/p GI 00:00: Medical stent stent 00 [place] 07/15/18 07/15/18 Large Large Disease Active 2017-[address] [facility] [address] bowel bowel 0-14 [facility] - obstructio obstructio 00:00: Me dical n n 00 [place] Hypokalemi Hypokalemi Disease Active 2017-[address] a a 0-14 [facility] - 00:00: Medical 00 [place] Morbid Morbid Disease Active 2017-[address] [facility] [address] obesity obesity 0-13 [facility] - 00:00: Medical 00 [place] Pneumonia Pneumonia Disease Active 2017-[address] [facility] 0-12 [facility] - 00:00: Medical 00 [place] History of History of Disease Active [facility] gout gout 4-11 [facility] - 00:00: Medical 00 [place] Adrenal Adrenal Disease Active [facility] mass, left mass, left 4-18 [facility] k[facility] - 00:00: Medical 00 [place] Pleural Pleural Disease Resolve 2019-102020-10-01 2020-10-[address] effusion, effusion, d 2- 00:00:00 10:41:37 [facility] - right right 00:00: Medical 00 [place] Acute Acute Disease Resolve 2020-10-01 2020-10-[address] chest pain chest pain d 7- 00:00:00 10:41:56 [facility] - 00:00: Medical 00 [place] SOB SOB Disease Resolve 2020-10-01 2020-10-[address] [facility] (shortness (shortness d 1-21 00:00:00 10:41:59 [facility] - of breath) of breath) 00:00: Me dical 00 [place] Recurrent Recurrent Disease Resolve 2020-10-01 2020-10-[address] pleural pleural d 1- 00:00:00 10:41:52 [facility] - effusion effusion 00:00: Medica l on right on right 00 Center Allergies, Adverse Reactions, Alerts This patient has no known allergies or adverse reactions. Family History Family Member Diagnosis Comments Start Date Stop Date Source Natural father Cancer [facility] Social History Social Habit Start Date Stop Date Quantity Comments Source History of Current smoker [facility] tobacco use Medical Cent[facility] r Sex Assigned At [facility] Exposure to Not sure [facility] - SARS-CoV-2 [facility] (event) Tobacco use and 2020-10-01 2020-10-01 Never used [facility] - exposure 00:00:00 00:00:00 Medical [place] Alcohol intake 2020-10-01 2020-10-01 Current drinker [facility] - 00:00:00 00:00:00 of alcohol Medical Center (finding) Alcohol Comment 2019-10-23 2019-10-[address] [facility] - 00:00[facility]00 00[facility]00:00 Medical Center Smoking Status Start Date Stop Date Source Former smoker 2020-10-01 00:00:00 2020-10-01 00:00:[address] [facility] Medications Ordered Filled Start Stop Current Ordering Indication Dosage Frequency Signature Comments Components Source Medication Medication Date Date Medication? Clinician (SIG) Name Name tamsulosin Yes .4mg QD Take 0.[address] [facility] (FLOMAX) 2-04 mg by [facility] - 0.4 mg Cap 19:59: mouth Medica l 24 hr 37 daily. Center capsule glimepiride Yes 4mg Q.5D Take [address] (AMARYL) 4 2-04 by mouth 2 Amy es - MG tablet 19:59: (two) Medical 37 times Center daily . linaGLIPtin Yes 5mg QD Take [address] (TRADJENTA) 2-04 by mouth [facility] - 5 mg Tab 19:59: daily. [address] morphine Yes 15mg Q.5D Take [address] (MS CONTIN) 2-04 by mouth 2 Niecy kes - 15 MG 12 hr 19:59: (two) Medic al tablet 37 times Center daily . docusate Yes 100mg Q.5D Take [address] sodium 2-04 mg by [facility] - (COLACE) 19:59: mouth 2 Medica l 100 MG 37 (two) Center capsule times daily. potassium Yes 20meq Q.5D Take [address] chloride SA 2-04 mEq by [facility] - (K-DUR,KLOR 19:59: mouth 2 Med ical -CON) 10 37 (two) Center MEQ tablet times daily. metoprolol Yes 50mg Q.5D Take [address] succinate 2-04 by mouth 2 Luke [facility] - (TOPROL-XL) 19:59: (two) Medic al 50 MG 24 hr 37 times Center tablet daily. aspirin 81 Yes 81mg QD Take [address] MG EC 2-04 by mouth [facility] - tablet 19:59: daily. [place] [id number] Center enoxaparin 2020- 2021- No deep venous 120mg Q.5D Inject [address] (LOVENOX) 2-04 02-04 thrombosis mg Amy es - 120 mg/0.8 14:41: 00:00 subcutaneo Medical mL Syrg 40 :00 usly 2 Center (two) times daily. ergocalcife 2020- No [id number] Take [facility] rol 11-06 50,000 [facility] - (Vitamin 14:41: 00:00 Units by Medi jessica D2) 1,250 40 :00 mouth Center mcg (50,000 every 30 unit) (thirty) capsule days. lactulose Yes 20g Q.[id number] Take [address] (CHRONULAC) 11-06 [id number] mLs (20 g [facility] - 20 gram/30 00:00: 3D total) by Sd dical mL solution 00 mouth 3 Cente r (three) times daily. HYDROcodone 2019-10- No 1{tbl} Take [address] -acetaminop 2- 12 tablet by Niecy mixon (NORCO 16:16: 00:00 mouth Medic al 10-325) 15 :00 every 6 Center 10-325 mg (six) per tablet hours as needed for Pain . HYDROcodone 2019-10 Yes 1{tbl} Take [address] -acetaminop 2-31 tablet by Amy mixon (NORCO 00:00: mouth Medica l 10-325) 00 every 4 Center 10-325 mg (four) per tablet hours as needed for Pain. Max Daily Amount: 6 tablets gabapentin 2019-10 300mg Q.[id number] Take [address] (NEURONTIN) 10-16 [id number] capsule [facility] - 300 MG 00:00: 23:59 3D (300 mg Medical capsule 00 :00 total) by Center mouth 3 (three) times daily for 14 days. amoxicillin 2019-10 1{tbl} Take [address] -clavulanat -02 11-05 tablet by Niecy tolbert 00:00: 23:59 mouth Medical (AUGMENTIN) 00 :00 every 12 Cent er 875-125 mg (twelve) per tablet hours for 5 days. metoprolol 2019-10 No 25mg Q.5D Take [address] succinate 1-20 01-31 tablet (25 Amy es - (TOPROL-XL) 00:00: [...] QD Take [address] (NORVASC) 04-28- by mouth [facility] - 10 MG 07:49: [...] MG 24 hr 00 :00 total) by [facility] ter tablet mouth daily for 90 days. digoxin 2019- No 125ug QD Take [address] (LANOXIN) 04-28- tablet [facility] - 0.125 MG 00:00: 00:00 (125 mcg Medi jessica tablet 00 :00 total) by Center mouth daily. metoprolol 2019- No 25mg QD Take [address] succinate 04-28- tablet (25 Amy es - (TOPROL-XL) 00:00: [...] QD Take [address] ate 10-27-24 tablet by [facility]ukes - (SENOKOT S) 00:00: 23:59 mouth Medi jessica 8.6-50 mg 00 :00 nightly. Center per tablet aspirin 81 No 81mg QD Take [address] [facility] MG EC 10-2724 tablet (81 [facility] - tablet 00:00: 23:59 mg total) Medic al 00 :00 by mouth Center daily. traMADol No 50mg Take [address] [facility] (ULTRAM) 50 - 12-31 tablet (50 L ukes - mg tablet 00:00: 00:00 mg total) Me dical 00 :00 by mouth Center every 6 (six) hours as needed. Max Daily Amount: 200 mg metoprolol No 25mg Q.5D Take [address] (LOPRESSOR) - 07-27 tablet (25 L ukes - 25 MG 00:00: 00:00 mg total) Medica l tablet 00 :00 by mouth 2 Center (two) times daily. sotalol AF No 80mg Q.5D Take [address] (BETAPACE -26 04-27 tablet (80 Amy es - AF) 80 [...] Time Observation Value Comments Source Systolic blood 2020-11-06 15:00:00 127 mm[Hg] [facility] Diastolic blood 2020-11-06 15:00:00 70 mm[Hg] [facility] t [facility] Heart rate 2020-11-06 15:00:00 107 /min [facility] Body temperature 2020-11-06 15:00:00 36.72 Stefany [facility] Respiratory rate 2020-11-06 15:00:00 13 /min [facility] Oxygen saturation in 2020-11-06 15:00:00 94 /min [facility] Arterial blood by Medical Ce nter Pulse oximetry Body weight 2020-11-02 12:24:00 114.216 kg [facility] BMI 2020-11-02 12:24:00 35.13 kg/m2 [facility] Body height 2020-11-02 10:50:00 180.3 cm [facility] Procedures Procedure Date / Time Performing Clinician Source Performed POCT-GLUCOSE METER 2020-11-06 11:32:00 Sonia Mansfield [facility] POCT-GLUCOSE METER 2020-11-06 07:30:00 [facility] Soniaher Piña [facility] CBC W/PLT COUNT & AUTO 2020-11-06 04:32:00 Sonia Mansfield [facility] POCT-GLUCOSE METER 2020-11-06 00:02:00 [facility] CBC (HEMOGRAM ONLY) 2020-11-05 18:11:00 Samir Johnson [facility] POCT-GLUCOSE METER 2020-11-05 17:26:00 Sonia Mansfield [facility] POCT-GLUCOSE METER 2020-11-05 12:02:00 Sonia Mansfield [facility] POCT-GLUCOSE METER 2020-11-05 07:44:00 [facility] Soniaher Piña [facility] HEMOGLOBIN AND HEMATOCRIT 2020-11-05 06:05:00 Ashley Quintero [facility] POCT-GLUCOSE METER 2020-11-05 05:32:00 Mckinley, [facility] POCT-GLUCOSE METER 2020-11-04 23:05:00 Mckinley, [facility] HEMOGLOBIN AND HEMATOCRIT 2020-11-04 22:22:00 Ashley Quintero [facility] POCT-GLUCOSE METER 2020-11-04 17:35:00 Mckinley, [facility] HEMOGLOBIN AND HEMATOCRIT 2020-11-04 14:00:00 [facility] POCT-GLUCOSE METER 2020-11-04 12:01:00 Mckinley, [facility] CBC (HEMOGRAM ONLY) 2020-11-04 04:05:00 Mckinley, [facility] APTT 2020-11-04 04:05:00 Rubia [facility] POCT-GLUCOSE METER 2020-11-03 23:31:00 Mckinley, [facility] HEMOGLOBIN AND HEMATOCRIT 2020-11-03 22:38:00 Mckinley, [facility] APTT 2020-11-03 22:38:00 Rubia [facility] TYPE AND SCREEN, AUTOMATED 2020-11-03 22:38:00 Mckinley, [facility] POCT-GLUCOSE METER 2020-11-03 17:39:00 Mckinley, [facility] CT ABDOMEN/PELVIS WITH IV 2020-11-03 16:29:00 [facility] CHEST WITH IV CONTRAST 2020-11-03 16:29:00 Ashley Quintero [facility] APTT 2020-11-03 13:17:00 Rubia [facility] POCT-GLUCOSE METER 2020-11-03 12:10:00 Mckinley, Marla Thais [facility] CBC W/PLT COUNT & AUTO 2020-11-03 05:47:00 Rubia [facility] BASIC METABOLIC PANEL (7) 2020-11-03 05:47:00 Rubia Samir I [facility] APTT 2020-11-03 05:47:00 Rubia [facility] POCT-GLUCOSE METER 2020-11-03 05:30:00 Rubia [facility] APTT 2020-11-02 23:46:00 Rubia [facility] POCT-GLUCOSE METER 2020-11-02 23:44:00 Rubia [facility] POCT-GLUCOSE METER 2020-11-02 17:40:00 Rubia [facility] POCT-GLUCOSE METER 2020-11-02 12:20:00 Rubia [facility] CBC W/PLT COUNT & AUTO 2020-11-02 09:50:00 Rubia [facility] COMPREHENSIVE METABOLIC 2020-11-02 09:50:00 Rubia [facility] PROTHROMBIN TIME/INR 2020-11-02 09:50:00 Rubia [facility] APTT 2020-11-02 09:50:00 Rubia [facility] XR CHEST 2 VIEWS 2020-10-09 07:51:00 Rina Mcelroy [facility] POCT-GLUCOSE METER 2020-10-02 16:38:00 Tarun Rai [facility] POCT-GLUCOSE METER 2020-10-02 13:11:00 Tarun Rai [facility] XR CHEST 1 VIEW 2020-10-02 10:58:00 Twila Ellis [facility]/BEDSIDE [facility] XR CHEST 1 VIEW 2020-10-02 06:47:00 Twila Ellis [facility] PORTABLE/BEDSIDE [facility] BASIC METABOLIC PANEL (7) 2020-10-02 04:16:00 Twila Ellis [facility] MAGNESIUM 2020-10-02 04:16:00 Twila Ellis [facility] CBC W/PLT COUNT & AUTO 2020-10-02 04:16:00 Twila Ellis [facility] (CELLAVISION MANUAL DIFF) 2020-10-02 04:16:00 Twila Ellis [facility] PREPARE LEUKO-REDUCED RBC 2020-10-01 23:54:00 Noé [facility] POCT-GLUCOSE METER 2020-10-01 11:22:00 [facility] PO[facility]SE METER 2020-10-01 07:30:00 Tarun Rai [facility] BASIC METABOLIC PANEL (7) 2020-10-01 04:04:00 Twila Ellis [facility] MAGNESIUM 2020-10-01 04:04:00 Caleb [facility] CBC W/PLT COUNT & AUTO 2020-10-01 04:04:00 Twila Ellis [facility] (CELLAVISION MANUAL DIFF) 2020-10-01 04:04:00 Noé [facility] CHEST 1 VIEW 2020-10-01 01:09:00 Twila Ellis [facility] - PORTABLE/BEDSIDE [facility] POCT-GLUCOSE METER 2020-09-30 23:48:00 Tarun Rai [facility] CBC (HEMOGRAM ONLY) 2020-09-30 22:58:00 [facility] TRAN[facility] LEUKO-REDUCED 2020-09-30 21:37:19 [facility] TROPONIN I 2020-09-30 18:04:00 [facility] MET[facility]OLIC PANEL (7) 2020-09-30 18:04:00 Twila Ellis [facility] MAGNESIUM 2020-09-30 18:04:00 [facility] PREPARE LEUKO-REDUCED RBC 2020-09-30 17:58:00 Twila Ellis [facility] ECG 12-LEAD 2020-09-30 17:14:05 Unknown, Hl7 [facility] ECG 12-LEAD 2020-09-30 17:13:49 Unknown, 7 [facility] POCT-GLUCOSE METER 2020-09-30 16:34:00 [facility] HEMO[facility]IN [facility] HEMATOCRIT 2020-09-30 16:31:00 Twila Ellis [facility] POCT-GLUCOSE METER 2020-09-30 13:51:00 Tarun Rai [facility] HGB/HCT (H&H) - STAT LAB 2020-09-30 11:57:00 Tarun Rai [facility] CT CHEST WITHOUT IV 2020-09-30 11:11:00 April Ramírez [facility] XR CHEST 1 VIEW 2020-09-30 10:30:[address] [facility] - PORTABLE/BEDSIDE [facility] GLUCOSE 2020-09-30 10:15:00 Lenora Saldana [facility] POTASSIUM 2020-09-30 10:15:00 Shana [facility] HEMOGLOBIN AND HEMATOCRIT 2020-09-30 10:15:00 [facility] CBC (HEMOGRAM ONLY) 2020-09-30 10:15:00 Noé [facility] BASIC METABOLIC PANEL (7) 2020-09-30 10:15:00 Noé [facility] PHOSPHORUS 2020-09-30 10:15:00 Noé [facility] MAGNESIUM 2020-09-30 10:15:00 Noé [facility] PT/APTT 2020-09-30 10:15:00 Noé [facility] CALCIUM, IONIZED 2020-09-30 10:15:[address] [facility] TISSUE EXAM 2020-09-30 09:05:00 Tarun Rai [facility] GLUCOSE-STAT LAB 2020-09-30 08:59:45 Shana [facility] HGB/HCT (H&H) - STAT LAB 2020-09-30 08:59:45 Shana [facility] POCT-GLUCOSE METER 2020-09-30 07:26:00 Tarun Rai [facility] BRONCHOSCOPY 2020-09-30 07:09:00 Armando Raiwn [facility] THORACOSCOPY (VATS) 2020-09-30 07:09:00 Fredi Tarun [facility] POCT-GLUCOSE METER 2020-09-30 05:42:00 Fredi Tarun [facility] XR CHEST 2 VIEWS 2020-09-29 12:19:00 Lalita Quintanilla [facility] TYPE AND SCREEN, AUTOMATED 2020-09-29 11:52:00 Lalita Quintanilla and [facility] SARS-COV2/RT-PCR ([facility] & 2020-09-29 11:47:00 Rosemary Swift [facility] REF LABS) [facility] POCT-GLUCOSE METER 2020-08-22 09:17:00 Samir Johnson [facility] CBC W/PLT COUNT & AUTO 2020-08-22 06:22:00 Daiana Hartman [facility] BASIC METABOLIC PANEL (7) 2020-08-22 06:22:00 Daiana Hartman sa [facility] POCT-GLUCOSE METER 2020-08-21 21:18:00 Samir Johnson [facility] POCT-GLUCOSE METER 2020-08-21 15:26:00 Samir Johnson [facility] REPORT OF PROCEDURE - 2020-08-21 14:17:[address] [facility] ENDOSCOPY [facility] [place] FLUORO NON-SPECIFIC UP 2020-08-21 13:55:00 Julius Sands davis [facility] TO 1 HOUR [facility] SIGMOIDOSCOPY,FLEX W/STENT 2020-08-21 12:55:00 Julius Sands [facility] PROCEDURE W/ C-ARM 2020-08-21 12:55:00 Noé [facility] POCT-GLUCOSE METER 2020-08-21 07:29:00 Samir Johnson [facility] BASIC METABOLIC PANEL (7) 2020-08-21 05:31:00 Swati Ralph [facility] CBC W/PLT COUNT & AUTO 2020-08-21 05:31:00 Swati Ralph [facility] DIFFERENTIAL [facility] ECG 12-LEAD 2020-08-20 12:53:13 Unknown, Hl7 Doctor [facility] SARS-COV2/RT-PCR ([facility] & 2020-08-20 12:41:00 Daiana Hartman [facility] - REF LABS) [facility] CT ABDOMEN/PELVIS WITH IV 2020-08-20 11:53:00 Wojciech Mcdermott I [facility] CONTRAST [facility] CBC W/PLT COUNT & AUTO 2020-08-20 10:07:00 Wojciech Mcdermott [facility] COMPREHENSIVE METABOLIC 2020-08-20 10:07:00 Wojciech Mcdermott [facility] PANEL [facility] LIPASE 2020-08-20 10:07:00 Sharron [facility] LACTIC ACID, VENOUS 2020-08-20 10:07:00 Wojciech Mcdermott [facility] URINALYSIS W/ REFLEX URINE 2020-08-20 10:07:00 Carlos Enrique Mcdermottrad Benito [facility] TROPONIN I 2020-08-20 10:07:00 [facility] 2020-08-20 09:50:55 Sharron [facility] ECG 12-LEAD 2020-08-20 09:44:38 Unknown, Hl7 Doctor [facility] REPORT OF PROCEDURE - 2020-08-20 00:00:00 Provider, Germaine [facility] ENDOSCOPY SCAN [facility] XR CHEST 1 VIEW 2020-06-16 11:23:00 Kyle Solitario [facility] PORTABLE/BEDSIDE Medical Center IR REMOVAL INDWELLING 2020-06-16 09:30:[address] [facility] TUNNELED PLEURAL CATH Medical Ce nter W/CUFF CBC W/PLT COUNT & AUTO 2020-06-16 08:25:00 Sheila Guerra [facility] APTT 2020-06-16 08:25:[address] [facility] PROTHROMBIN TIME/INR 2020-06-16 08:25:00 Sheila Guerra [facility] CT CHEST WITH IV CONTRAST 2020-06-05 09:25:00 Kyle Solitario [facility] CT ABDOMEN/PELVIS WITH IV 2020-06-05 09:25:00 Kyle Solitario [facility] XR CHEST 2 VIEWS 2020-05-12 13:29:00 Kyle Solitario [facility] RHYTHM STRIP - SCAN 2020-04-29 14:02:04 Provider, Germaine [facility] POCT-GLUCOSE METER 2020-04-28 11:11:00 [facility] PO[facility]SE [facility]ER 2020-04-28 09:01:00 [facility]utom [facility] MAGNESIUM 2020-04-28 05:15:00 Becky Thornton [facility] PHOSPHORUS 2020-04-28 05:15:00 Norberto [facility] CBC (HEMOGRAM ONLY) 2020-04-28 05:15:00 George [facility] BASIC METABOLIC PANEL (7) 2020-04-28 05:15:00 [facility] POCT-GLUCOSE METER 2020-04-27 21:30:00 Civunigunta [facility] POCT-GLUCOSE METER 2020-04-27 16:55:00 [facility] POCT-[facility]SE METER 2020-04-27 11:05:00 Civunigunta, [facility] POCT-GLUCOSE METER 2020-04-27 07:49:00 [facility] 2020-04-27 06:44:00 Norberto [facility] PHOSPHORUS 2020-04-27 06:44:00 Norberto [facility] BASIC METABOLIC PANEL (7) 2020-04-27 06:44:00 [facility] POCT-GLUCOSE METER 2020-04-26 21:10:00 Civunigunta, [facility] POCT-GLUCOSE METER 2020-04-26 18:00:00 Civunigunta, [facility] POCT-GLUCOSE METER 2020-04-26 12:48:00 Civunigunta, [facility] POCT-GLUCOSE METER 2020-04-26 08:37:00 Civunigunta, [facility] MAGNESIUM 2020-04-26 06:02:00 Norberto [facility] PHOSPHORUS 2020-04-26 06:02:00 Norberto [facility] DIGOXIN LEVEL 2020-04-26 06:02:00 Blas Freitas [facility] POCT-GLUCOSE METER 2020-04-25 22:12:00 Civunigunta [facility] POCT-GLUCOSE METER 2020-04-25 16:03:00 Marthaliane [facility] POCT-GLUCOSE METER 2020-04-25 12:35:00 Marguerite [facility] HEPARIN ASSAY - LOW 2020-04-25 10:00:00 Margarito Preston [facility] WEIGHT [facility] POCT-GLUCOSE METER 2020-04-25 08:42:00 Eliciacorazonmarleen [facility] POCT-GLUCOSE METER 2020-04-25 05:24:00 [facility]OLIC PANEL (7) 2020-04-25 05:02:00 Tamra Winston [facility] CBC W/PLT COUNT & AUTO 2020-04-25 05:02:00 Tamra Winston [facility] MAGNESIUM 2020-04-25 05:02:00 Norberto [facility] PHOSPHORUS 2020-04-25 05:02:00 Norberto [facility] POCT-GLUCOSE METER 2020-04-24 23:26:00 Marguerite [facility] POCT-GLUCOSE METER 2020-04-24 11:00:00 Margarito Preston [facility] POCT-GLUCOSE METER 2020-04-24 05:52:00 Margarito Preston [facility] BASIC METABOLIC PANEL (7) 2020-04-24 03:21:00 Tamra Winston [facility] CBC W/PLT COUNT & AUTO 2020-04-24 03:21:00 [facility] MAGNESIUM 2020-04-24 03:21:00 Norberto [facility] PHOSPHORUS 2020-04-24 03:21:00 Norberto [facility] TSH/FREE T4 IF INDICATED 2020-04-24 03:21:00 Irvin Win [facility] HEMOGLOBIN A1C 2020-04-24 03:21:00 Blas Freitas [facility] POCT-GLUCOSE METER 2020-04-24 02:15:00 Margarito Preston [facility] HEPATIC FUNCTION PANEL 2020-04-23 20:21:[address] [facility] B-TYPE NATRIURETIC FACTOR 2020-04-23 20:21:[address] [facility] (BNP) [facility] TROPONIN I 2020-04-23 20:21:00 Jayjay Aldrich [facility] ECG 12-LEAD 2020-04-23 18:52:30 Unknown, Hl7 [facility] ECG 12-LEAD 2020-04-23 18:49:58 Unknown, 7 [facility] POCT-GLUCOSE METER 2020-04-23 16:52:00 [facility] PT/APTT 2020-04-23 10:37:00 Abe Figueroa [facility] PROCALCITONIN 2020-04-23 09:17:00 Nikki Dimas [facility] POCT-GLUCOSE METER 2020-04-23 09:15:00 Bijal Goldberg [facility] APTT 2020-04-23 05:05:00 Bijal Goldberg [facility] BASIC METABOLIC PANEL (7) 2020-04-23 05:04:00 Tamra Winston [facility] CBC W/PLT COUNT & AUTO 2020-04-23 05:04:00 Tamra Winston [facility] MAGNESIUM 2020-04-23 05:04:00 [facility] 2020-04-23 05:04:00 Norberto [facility] 2D ECHO W/ DOPPLER 2020-04-23 02:09:23 Tamra Winston [facility] BLOOD GAS, ARTERIAL 2020-04-23 01:01:[address] [facility] LACTIC ACID, VENOUS 2020-04-22 22:32:00 [facility] APTT 2020-04-22 22:32:00 [facility] BLOOD CULTURE 2020-04-22 22:31:00 [facility] TROPONIN I 2020-04-22 22:31:00 [facility] CBC (HEMOGRAM ONLY) 2020-04-22 22:31:00 [facility] CT CHEST PE TEST DESIGN 2020-04-22 21:42:00 [facility] VENOUS DOPPLER LEGS 2020-04-22 21:07:00 Constance [facility] CRITICAL CARE 2020-04-22 20:42:13 [facility] SARS-COV2/RT-PCR ([facility] & 2020-04-22 20:41:00 Constance [facility] - REF [facility] D-DIMER 2020-04-22 19:37:00 [facility] CBC W/PLT COUNT & AUTO 2020-04-22 19:37:00 Bijal Goldberg [facility] BASIC METABOLIC PANEL (7) 2020-04-22 19:37:00 Bijal Goldberg [facility] LACTIC ACID, VENOUS 2020-04-22 19:37:00 [facility] PT/APTT 2020-04-22 19:37:00 [facility] B-TYPE NATRIURETIC FACTOR 2020-04-22 19:37:00 Bijal Goldberg I [facility] (BNP) [facility] TROPONIN I 2020-04-22 19:37:00 Bijal Goldberg [facility] XR CHEST 1 VIEW 2020-04-22 19:16:00 Bijal Goldberg [facility] - PORTABLE/BEDSIDE [facility] ECG 12-LEAD 2020-04-22 18:25:30 Irvin Win [facility] IR TUNNELED CATH 2020-04-07 10:06:00 Kyle Solitario [facility] CBC W/PLT COUNT & AUTO 2020-04-07 06:43:00 Sheila Guerra [facility] PROTHROMBIN TIME/INR 2020-04-07 06:43:00 Sheila Guerra [facility] APTT 2020-04-07 06:43:00 Sheila Guerra [facility] CT ABDOMEN/PELVIS WITH IV 2020-03-13 07:23:00 Kyle Solitario [facility] CT CHEST WITH IV CONTRAST 2020-03-13 07:23:00 Kyle Solitario [facility] CT CHEST WITH IV CONTRAST 2020-01-18 08:20:00 Kyle Solitario [facility] CT ABDOMEN/PELVIS WITH IV 2020-01-18 08:20:00 Kyle Solitario [facility] POCT-CREATININE 2020-01-18 07:59:00 Kyle Solitario [facility] Plan of Care Planned Activity Planned Date Details Comments Source Future Scheduled 2028-09-11 [address] [facility] - Test 00:00:00 malignant neoplasm of Medica l Center colon (procedure) [code = 365434915] Future Scheduled 2022-05-[address] [facility] 00:[facility]00 (procedure) [code = Medical Center 91546338] Future Scheduled 2020-10-25 Hem[address] [facility] - Test 00:00:00 [facility] (procedure) [code = 75672064] Future Scheduled 2020-10-[address] [facility] - Test 00:00:00 (12+) [code = Medical Center DEPRESSION SCREENING (12+)] Future Scheduled 2020-06-03 INFLUENZA VACCINE (#1) [facility]00 [code = INFLUENZA Medical Ce nter VACCINE (#1)] Future Scheduled 2020-05-23 Urine screening for [facility] - Test 00:00:00 protein (procedure) Medical Center [code = 603184101] Future Scheduled 2018-09-[address] [facility] - Test 00:00:00 0-64 YRS (1 of 1 - Medical C enter PPSV23) [code = PNEUMOCOCCAL VACCINE 0-64 YRS (1 of 1 - PPSV23)] Future Scheduled 2010 SHINGLES VACCINES ([address] [facility] - Test 00:00:00 of 2) [code = SHINGLES Medic al Center VACCINES (1 of 2)] Future Scheduled 1979-12-12 DTAP/TDAP/TD [facility]ACCINES [facility] Test 00:00:00 (1 - Tdap) [code = Medical C enter DTAP/TDAP/TD VACCINES (1 - Tdap)] Future Scheduled 1978 HEPATITIS C [facility]CRE[facility]ING [facility] Test 00:00:00 [code = HEPATITIS C Medical Center SCREENING] Future Scheduled 1970 DIABETIC EYE EXAM [facility] - Test 00:00:00 [code = DIABETIC EYE Medical Center EXAM] Future Scheduled [address] [facility] - Test 00:00:00 examination Medical Center (regime/therapy) [code = 040872633] Encounters Start End Encounter Admission Attending Care Care Encounter Source Date/Time Date/Time Type Type Clinicians Facility Department ID 2020-10-27 2020-10-27 Office KAREN Bennett 1.2.840.114 [id number] 07:40:19 09:59:48 Visit Miguel Villa 350.1.13.21 Maile 0.2.7.2.686 [id number] 530 2020-10-23 2020-10-23 Office SHANICE Rai 1.2.840.114 [id number] 07:37:27 07:52:27 Visit Tarun AMBULATOR 350.1.13.21 Y 0.2.7.2.686 [id number] 2020-10-15 2020-10-15 Office Lilibeth SHANICE 1.2.840.114 [id number] 08:32:53 08:47:53 Visit Rina Loyolaan AMBULATOR 350.1.13.21 Y 0.2.7.2.686 [id number] 2020-10-13 2020-10-13 Office Lilibeth SHANICE 1.2.840.114 [id number] 08:02:20 13:44:23 Visit Rina Loyolaan AMBULATOR 350.1.13.21 Y 0.2.7.2.686 [id number] 2020-10-13 2020-10-13 Office [facility] 1.2.840.114 [id number] 09:10:38 11:10:40 Visit Kyle Daisy 350.1.13.21 0.2.7.2.686 [id number] 530 2020-10-09 2020-10-09 Office EDUARDA Rai 1.2.840.114 [id number] 08:03:42 11:34:59 Visit Tarun AMBULATOR 350.1.13.21 Y 0.2.7.2.686 [id number] 810 2020-09-18 2020-09-18 Office Fredi EDUARDAM 1.2.840.114 [id number] 14:05:33 16:28:30 Visit Tarun AMBULATOR 350.1.13.21 Y 0.2.7.2.686 [id number] 810 2020-09-18 2020-09-18 Office iVkki Niesha BC 1.2.840.114 [id number] 13:03:03 16:27:09 Visit Benny AMBULATOR 350.1.13.21 Y 0.2.7.2.686 [id number] 2020-09-15 2020-09-15 Office [facility] 1.2.840.114 [id number] 08:20:44 08:40:44 Visit Kyle Daisy 350.1.13.21 0.2.7.2.686 [id number] 530 2020-09-01 2020-09-01 Office [facility] 1.2.840.114 [id number] 08:27:37 08:47:37 Visit Kyle GonzalezNair 350.1.13.21 0.2.7.2.686 [id number] 530 2020-08-11 2020-08-[address] [facility] 1.2.840.114 [id number] 07:56:03 08:16:03 Visit Kyle GonzalezNair 350.1.13.21 0.2.7.2.686 [id number] 530 2020-07-31 2020-07-31 Office Niesha Florez 1.2.840.114 [id number] 12:31:07 16:10:42 Visit Benny AMBULATOR 350.1.13.21 Y 0.2.7.2.686 [id number] 2020-07-30 2020-07-30 Office SHANICE Lobo 1.2.840.114 [id number] 08:44:23 09:04:23 Visit Mihail AMBULATOR 350.1.13.21 Ashvin Y 0.2.7.2.686 [id number] 2020-07-28 2020-07-[address] [facility] 1.2.840.114 [id number] 07:55:26 08:15:26 Visit Kyle GonzalezNair 350.1.13.21 0.2.7.2.686 [id number] 530 2020-07-14 2020-07-[address] [facility] 1.2.840.114 [id number] 08:23:29 08:43:29 Visit Kyle GonzalezNair 350.1.13.21 0.2.7.2.686 [id number] 530 2020-06-30 2020-06-30 Office Niesha Florez 1.2.840.114 [id number] 14:43:40 16:30:13 Visit Benny AMBULATOR 350.1.13.21 Y 0.2.7.2.686 [id number] 2020-06-30 2020-06-30 Office DAISY BennettBenito 1.2.840.114 [id number] 08:36:48 09:57:06 Visit Miguel Villa 350.1.13.21 Maile 0.2.7.2.686 [id number] 530 2020-06-10 2020-06-10 Office Eusebio SHANICE 1.2.840.114 [id number] 09:12:52 15:33:28 Visit Torre AMBULATOR 350.1.13.21 Y 0.2.7.2.686 [id number] 315 2020-06-10 2020-06-10 Office [facility] 1.2.840.114 [id number] 07:49:33 08:09:33 Visit Kyle Villa 350.1.13.21 0.2.7.2.686 [id number] 530 2020-05-28 2020-05-28 Office Adalidavis SHANICE 1.2.840.114 [id number] 07:57:22 14:16:45 Visit Mihail AMBULATOR 350.1.13.21 Ashvin Y 0.2.7.2.686 [id number] 375 2020-05-26 2020-05-26 Office DAISY Solitario 1.2.840.114 [id number] 08:00:00 08:20:00 Visit Kyle Villa 350.1.13.21 0.2.7.2.686 [id number] 530 2020-05-12 2020-05-12 Office DAISY Solitario 1.2.840.114 [id number] 07:59:35 08:19:35 Visit Kyle Villa 350.1.13.21 0.2.7.2.686 [id number] 530 2020-04-30 2020-04-30 Office KAREN Bennett 1.2.840.114 [id number] 07:54:09 08:24:09 Visit Miguel Villa 350.1.13.21 Maile 0.2.7.2.686 [id number] 530 2020-04-14 2020-04-14 Office SAMSON SolitarioBenito 1.2.840.114 [id number] 07:42:46 08:02:46 Visit Kyle Gracer 350.1.13.21 0.2.7.2.686 [id number] 530 2020-03-31 2020-03-31 Office [facility] 1.2.840.114 [id number] 07:45:44 08:05:44 Visit Kyle Gracer 350.1.13.21 0.2.7.2.686 [id number] 530 2020-03-17 2020-03-[address] [facility] 1.2.840.114 [id number] 07:34:53 07:54:53 Visit Kyle GonzalezNair 350.1.13.21 0.2.7.2.686 [id number] 530 2020-03-12 2020-03-12 Office SHANICE Lobo 1.2.840.114 [id number] 08:22:35 09:55:45 Visit Mihail AMBULATOR 350.1.13.21 Ashvin Y 0.2.7.2.686 [id number] 375 2020-02-18 2020-02-[address] [facility] 1.2.840.114 [id number] 07:45:56 08:05:56 Visit Kyle Gracer 350.1.13.21 0.2.7.2.686 [id number] 530 2020-02-04 2020-02-[address] [facility] 1.2.840.114 [id number] 08:05:32 10:29:35 Visit Kyle Gracer 350.1.13.21 0.2.7.2.686 [id number] 530 2020-01-30 2020-01-30 Telemedici Mcclain, [facility] 1.2.840.114 [id number] 08:24:26 13:41:01 ne Visit Danny Mcguire 350.1.13.10 Lorenzo 4.2.7.2.686 Davio [id number] [address] 2020-01-07 2020-01-[address] [facility] 1.2.840.114 [id number] 08:00:07 09:16:25 Visit Kyle Gracer 350.1.13.21 0.2.7.2.686 [id number] 530 2019-12-24 2019-12-24 Office SAMSON BennettBenito 1.2.840.114 [id number] 08:11:41 08:41:41 Visit Miguel Villa 350.1.13.21 Maile 0.2.7.2.686 [id number] 530 2019-12-10 2019-12-10 Office SAMSON BennettBenito 1.2.840.114 [id number] 08:35:24 10:46:00 Visit Miguel Villa 350.1.13.21 Maile 0.2.7.2.686 [id number] 530 2019-11-19 2019-11-19 Office [facility] 1.2.840.114 [id number] 07:56:36 08:26:36 Visit Miguel Villa 350.1.13.21 Maile 0.2.7.2.686 [id number] 530 2019-11-05 2019-11-05 Office [facility] 1.2.840.114 [id number] 08:50:57 09:20:57 Visit Miguel Villa 350.1.13.21 Maile 0.2.7.2.686 [id number] 530 2019-10-31 2019-10-31 Office SHANICE Lobo 1.2.840.114 [id number] 09:27:53 10:54:17 Visit Mihail AMBULATOR 350.1.13.21 Ashvin Y 0.2.7.2.686 [id number] 375 2019-10-23 2019-10-23 Office [facility] 1.2.840.114 [id number] 08:26:58 08:56:58 Visit Miguel Villa 350.1.13.21 aMile 0.2.7.2.686 [id number] 530 2019-07-30 2019-07-30 Office [facility] 1.2.840.114 [id number] 07:25:57 07:55:57 Visit Miguel Villa 350.1.13.21 Maile 0.2.7.2.686 [id number] 530 2019-07-18 2019-07-18 Office Kaykay SHANICE 1.2.148.830 [id number] 08:35:31 10:08:39 Visit Savanna AMBULATOR 350.1.13.21 Y 0.2.7.2.686 [id number] 325 2019-07-16 2019-07-[address] [facility] 1.2.840.114 [id number] 08:17:45 09:32:54 Visit Miguel Villa 350.1.13.21 Maile 0.2.7.2.686 [id number] 530 2019-06-18 2019-06-[address] [facility] 1.2.840.114 [id number] 09:03:37 10:04:35 Visit Miguel Villa 350.1.13.21 Maile 0.2.7.2.686 [id number] 530 2019-05-23 2019-05-23 Office Nikhil Barfield SHANICE 1.2.840.114 [id number] 07:28:00 08:59:08 Visit AMBULATOR 350.1.13.21 Y 0.2.7.2.686 [id number] 2019-05-21 2019-05-21 Office SHANICE Bennett 1.2.840.114 [id number] 08:53:36 09:23:36 Visit Miguel AMBULATOR 350.1.13.21 Maile Y 0.2.7.2.686 [id number] 360 2019-05-07 2019-05-07 Office SHANICE Bennett 1.2.840.114 [id number] 07:57:42 09:30:05 Visit Miguel AMBULATOR 350.1.13.21 Maile Y 0.2.7.2.686 [id number] Results Test Description Test Time Test Comments Results Result Comments Source POC-Glucose meter 2020-11-06 12:42:00 Test Item Value Reference Range Interpretation Comme nts POC-Glucose Meter (test code = 151 mg/dL 70-110 H : TESTED AT [facility] [address] [employer] [facility]38) [facility], 770 30: Rn Forensic/Techni patrick ID = [id number] for YAMEL LAW EM Lab Interpretation (test code = Abnormal 48259-8) [facility] [id number] 12:42:00 Test Item Value Reference Range Interpretation Comments POC-GLUCOSE METER 151 mg/dL 70-110 H : TESTED A T [facility] [address] (BEAKER) (test code = NAMITA [place]antley [place], 1538) [address]: Rn Forensic/Techni patrick ID = [id number] for CHASE SHERIDAN POCT-GLUCOSE [id number] 07:56:00 Test Item Value Reference Range Interpretation Comments POC-GLUCOSE METER 102 mg/dL 70-110 : TESTED A T [facility] [address] (BEAKER) (test code = NAMITA Brant[place], 1538) [address]: Rn Forensic/Techni patrick ID = [id number] for TRUNG SHERIDANM CBC with platelet count + automated [id number] 05:49:00 Test Item Value Reference Range Interpretation Comments WBC (test code = 6690-2) 6.4 See_Comment [A utomated message] The system AudioTag generated this result transmitted ref erence range: 3.5 - 10 .5 K/L. The refe rence range was not u sed to interpret this result as normal/abnor mal. RBC (test code = 789-8) 3.32 See_Comment L [Au tomated message] The system AudioTag generated this result transmitted ref erence range: 4.63 - 6 .08 M/L. The refe rence range was not u sed to interpret this result as normal/abnor mal. MCHC (test code = 786-4) 28.7 See_Comment L [A utomated message] The system AudioTag generated this result transmitted ref erence range: 32.3 - 3 6.5 GM/DL. The refe rence range was not u sed to interpret this result as normal/abnor mal. Hematocrit (test code = 26.8 % 40.1-51 L 4544-3) MCV (test code = 787-2) 80.7 fL 79-92.2 MCH (test code = 785-6) 23.2 pg 25.7-32.2 L RDW (test code = 788-0) 19.4 % 11.6-14.4 H Platelets (test code = 301 See_Comment [Aut omated message] 777-3) The system AudioTag generated this result transmitted ref erence range: 150 - 45 0 K/CU MM. The referen ce range was not u sed to interpret this result as normal/abnor mal. MPV (test code = 9.8 fL 9.4-12.4 25518-3) nRBC (test code = 413) 0 See_Comment [Aut omated message] The system AudioTag generated this result transmitted ref erence range: 0 - 0 /1 00 WBC. The refere nce range was not u sed to interpret this result as normal/abnor mal. % Neutros (test code = 47 % 429) % Lymphs (test code = 26 % 430) % Monos (test code = 20 % 431) % Eos (test code = 432) 6 % % Baso (test code = 437) 1 % # Neutros (test code = 2.97 See_Comment [Aut omated message] 670) The system AudioTag generated this result transmitted ref erence range: 1.78 - 5 .38 K/L. The refe rence range was not u sed to interpret this result as normal/abnor mal. # Lymphs (test code = 1.68 See_Comment [Auto mated message] 414) The system AudioTag generated this result transmitted ref erence range: 1.32 - 3 .57 K/L. The refe rence range was not u sed to interpret this result as normal/abnor mal. # Monos (test code = 1.24 See_Comment H [Autom ated message] 415) The system AudioTag generated this result transmitted ref erence range: 0.30 - 0 .82 K/L. The refe rence range was not u sed to interpret this result as normal/abnor mal. # Eos (test code = 416) 0.40 See_Comment [Au tomated message] The system AudioTag generated this result transmitted ref erence range: 0.04 - 0 .54 K/L. The refe rence range was not u sed to interpret this result as normal/abnor mal. # Baso (test code = 417) 0.06 See_Comment [A utomated message] The system AudioTag generated this result transmitted ref erence range: 0.01 - 0 .08 K/L. The refe rence range was not u sed to interpret this result as normal/abnor mal. Immature 0 % 0-1 Granulocytes-Relative (test code = 2801) Lab Interpretation (test Abnormal code = 68930-2) [facility] W/PLT COUNT & AUTO [id number] 05:49:00 Test Item Value Reference Range Interpretation Comments WHITE BLOOD CELL COUNT (BEAKER) 6.4 K/ L 3.5-10.5 (test code = 775) RED BLOOD CELL COUNT (BEAKER) 3.32 M/ L 4.63-6.08 L (test code = 761) HEMOGLOBIN (BEAKER) (test code = 7.7 GM/DL 13.7-17.5 L 410) HEMATOCRIT (BEAKER) (test code = 26.8 % 40.1-51.0 L 411) MEAN CORPUSCULAR VOLUME (BEAKER) 80.7 fL 79.0-92.2 (test code = 753) MEAN CORPUSCULAR HEMOGLOBIN 23.2 pg 25.7-32.2 L (BEAKER) (test code = 751) MEAN CORPUSCULAR HEMOGLOBIN CONC 28.7 GM/DL 32.3-36.5 L (BEAKER) (test code = 752) RED CELL DISTRIBUTION WIDTH 19.4 % 11.6-14.4 H (BEAKER) (test code = 412) PLATELET COUNT (BEAKER) (test 301 K/CU MM 150-450 code = 756) MEAN PLATELET VOLUME (BEAKER) 9.8 fL 9.4-12.4 (test code = 754) NUCLEATED RED BLOOD CELLS 0 /100 WBC 0-0 (BEAKER) (test code = 413) NEUTROPHILS RELATIVE PERCENT 47 % (BEAKER) (test code = 429) LYMPHOCYTES RELATIVE PERCENT 26 % (BEAKER) (test code = 430) MONOCYTES RELATIVE PERCENT 20 % (BEAKER) (test code = 431) EOSINOPHILS RELATIVE PERCENT 6 % (BEAKER) (test code = 432) BASOPHILS RELATIVE PERCENT 1 % (BEAKER) (test code = 437) NEUTROPHILS ABSOLUTE COUNT 2.97 K/ L 1.78-5.38 (BEAKER) (test code = 670) LYMPHOCYTES ABSOLUTE COUNT 1.68 K/ L 1.32-3.57 (BEAKER) (test code = 414) MONOCYTES ABSOLUTE COUNT (BEAKER) 1.24 K/ L 0.30-0.82 H (test code = 415) EOSINOPHILS ABSOLUTE COUNT 0.40 K/ L 0.04-0.54 (BEAKER) (test code = 416) BASOPHILS ABSOLUTE COUNT (BEAKER) 0.06 K/ L 0.01-0.08 (test code = 417) IMMATURE GRANULOCYTES-RELATIVE 0 % 0-1 PERCENT (BEAKER) (test code = 2801) POCT-GLUCOSE [id number] 00:14:00 Test Item Value Reference Range Interpretation Comments POC-GLUCOSE METER 110 mg/dL 70-110 : [facility] (test code = NAMITA CHEN [place], 1538) [address]: Rn Forensic/Techni patrick ID = [id number] for Jodie Arechiga CBC (Hemogram only)2020-11-05 18:51:00 Test Item Value Reference Range Interpretation Comments WBC (test code = 6690-2) 6.9 See_Comment [A utomated message] The system AudioTag generated this result transmitted ref erence range: 3.5 - 10 .5 K/L. The refe rence range was not u sed to interpret this result as normal/abnor mal. RBC (test code = 789-8) 3.71 See_Comment L [Au tomated message] The system AudioTag generated this result transmitted ref erence range: 4.63 - 6 .08 M/L. The refe rence range was not u sed to interpret this result as normal/abnor mal. MCHC (test code = 786-4) 28.8 See_Comment L [A utomated message] The system AudioTag generated this result transmitted ref erence range: 32.3 - 3 6.5 GM/DL. The refe rence range was not u sed to interpret this result as normal/abnor mal. Hematocrit (test code = 29.9 % 40.1-51 L 4544-3) MCV (test code = 787-2) 80.6 fL 79-92.2 MCH (test code = 785-6) 23.2 pg 25.7-32.2 L RDW (test code = 788-0) 19.4 % 11.6-14.4 H Platelets (test code = 347 See_Comment [Aut omated message] 777-3) The system [employer] generated this result transmitted ref erence range: 150 - 45 0 K/CU MM. The referen ce range was not u sed to interpret this result as normal/abnor mal. MPV (test code = 9.7 fL 9.4-12.4 21342-4) nRBC (test code = 413) 0 See_Comment [Aut omated message] The system [employer] generated this result transmitted ref erence range: 0 - 0 /1 00 WBC. The refere nce range was not u sed to interpret this result as normal/abnor mal. Lab Interpretation (test Abnormal code = 32590-1) [facility] (HEMOGRAM ONLY)2020-11-05 18:51:00 Test Item Value Reference Range Interpretation Comments WHITE BLOOD CELL COUNT (BEAKER) 6.9 K/ L 3.5-10.5 (test code = 775) RED BLOOD CELL COUNT (BEAKER) 3.71 M/ L 4.63-6.08 L (test code = 761) HEMOGLOBIN (BEAKER) (test code = 8.6 GM/DL 13.7-17.5 L 410) HEMATOCRIT (BEAKER) (test code = 29.9 % 40.1-51.0 L 411) MEAN CORPUSCULAR VOLUME (BEAKER) 80.6 fL 79.0-92.2 (test code = 753) MEAN CORPUSCULAR HEMOGLOBIN 23.2 pg 25.7-32.2 L (BEAKER) (test code = 751) MEAN CORPUSCULAR HEMOGLOBIN CONC 28.8 GM/DL 32.3-36.5 L (BEAKER) (test code = 752) RED CELL DISTRIBUTION WIDTH 19.4 % 11.6-14.4 H (BEAKER) (test code = 412) PLATELET COUNT (BEAKER) (test 347 K/CU MM 150-450 code = 756) MEAN PLATELET VOLUME (BEAKER) 9.7 fL 9.4-12.4 (test code = 754) NUCLEATED RED BLOOD CELLS 0 /100 WBC 0-0 (BEAKER) (test code = 413) POCT-GLUCOSE [id number] 17:48:00 Test Item Value Reference Range Interpretation Comments POC-GLUCOSE METER 101 mg/dL 70-110 : TESTED A T [facility] 6720 (BEAKER) (test code = [facility], 1538) [address]6717: Rn Forensic/Techni patrick ID = [id number] for KELSIE JONES POCT-GLUCOSE [id number] 12:13:00 Test Item Value Reference Range Interpretation Comments POC-GLUCOSE METER 151 mg/dL 70-110 H : TESTED A T [facility] 67[facility] (BEAKER) (test code = [facility], 1538) 11259: Rn Forensic/Techni patrick ID = [id number] for KELSIE JONES POCT-GLUCOSE [id number] 07:55:00 Test Item Value Reference Range Interpretation Comments POC-GLUCOSE METER 118 mg/dL 70-110 H : TESTED A T [facility] 6720 (BEAKER) (test code = [facility], 1538) 50564: Rn Forensic/Techni patrick ID = [id number] for KELSIE JONES Hemoglobin and [id number] 06:24:00 Test Item Value Reference Range Interpretation Comments Hemoglobin (test code 8.7 See_Comment L [Auto mated = 786-4) message] The system which generated this result transmit murphy reference range : 13.7 - 17.5 GM/ DL. The reference range was not u sed to interpret th is result as normal/abnormal . Hematocrit (test code 30.2 % 40.1-51 L = 4544-3) MIGUEL A (test code = MIGUEL A) Rn Forensic ID - [id number] Lab Interpretation Abnormal (test code = 27947-5) [facility]MO[facility] AND [id number] 06:24:00 Test Item Value Reference Range Interpretation Comments HEMOGLOBIN (BEAKER) (test code = 8.7 GM/DL 13.7-17.5 L 410) HEMATOCRIT (BEAKER) (test code = 30.2 % 40.1-51.0 L 411) Rn Forensic ID - [id number]-GLUCOSE [id number] 05:43:00 Test Item Value Reference Range Interpretation Comments POC-GLUCOSE METER 94 mg/dL 70-110 : TESTED A T [facility] 6720 (BEAKER) (test code = [facility], 1538) 46248: Rn Forensic/Techni patrick ID = [id number] for SAND ERS, CLARA POCT-GLUCOSE [id number] 23:17:00 Test Item Value Reference Range Interpretation Comments POC-GLUCOSE METER 98 mg/dL 70-110 : TESTED A T [facility] 6720 (BEAKER) (test code = [facility], 1538) 63312: Rn Forensic/Techni patrick ID = [id number] for SAND ERS, CLARA HEMOGLOBIN AND [id number] 22:59:00 Test Item Value Reference Range Interpretation Comments HEMOGLOBIN (BEAKER) (test code = 7.6 GM/DL 13.7-17.5 L 410) HEMATOCRIT (BEAKER) (test code = 26.8 % 40.1-51.0 L 411) Rn Forensic ID - [id number]-GLUCOSE [id number] 17:48:00 Test Item Value Reference Range Interpretation Comments POC-GLUCOSE METER 125 mg/dL 70-110 H : TESTED A T [facility] 6720 (BEAKER) (test code = [facility], 153) 28426: Rn Forensic/Techni patrick ID = [id number] for KELSIE JONES HEMOGLOBIN AND [id number] 14:34:00 Test Item Value Reference Range Interpretation Comments HEMOGLOBIN (BEAKER) (test code = 8.5 GM/DL 13.7-17.5 L 410) HEMATOCRIT (BEAKER) (test code = 28.8 % 40.1-51.0 L 411) Rn Forensic ID - [id number]-GLUCOSE [id number] 12:12:00 Test Item Value Reference Range Interpretation Comments POC-GLUCOSE METER 130 mg/dL 70-110 H : TESTED A T [facility] 6720 (BEAKER) (test code = [facility], 1538) 85565: Rn Forensic/Techni patrick ID = [id number] for KELSIE JONES [id number] 05:01:00 Test Item Value Reference Range Interpretation Comments PTT (test code = 97.7 See_Comment H [Automated message] 47188-5) The system [employer] generated this result transmitted ref erence range: 22.5 - 3 6.0 seconds. The reference range was not used to int erpret this result as normal/abnormal . Lab Interpretation (test Abnormal code = 33611-6) [id number] 05:01:00 Test Item Value Reference Range Interpretation Comments PARTIAL THROMBOPLASTIN TIME 97.7 seconds 22.5-36.0 H (BEAKER) (test code = 760) CBC (HEMOGRAM ONLY)2020-11-04 04:35:00 Test Item Value Reference Range Interpretation Comments WHITE BLOOD CELL COUNT (BEAKER) 6.5 K/ L 3.5-10.5 (test code = 775) RED BLOOD CELL COUNT (BEAKER) 3.64 M/ L 4.63-6.08 L (test code = 761) HEMOGLOBIN (BEAKER) (test code = 8.5 GM/DL 13.7-17.5 L 410) HEMATOCRIT (BEAKER) (test code = 29.3 % 40.1-51.0 L 411) MEAN CORPUSCULAR VOLUME (BEAKER) 80.5 fL 79.0-92.2 (test code = 753) MEAN CORPUSCULAR HEMOGLOBIN 23.4 pg 25.7-32.2 L (BEAKER) (test code = 751) MEAN CORPUSCULAR HEMOGLOBIN CONC 29.0 GM/DL 32.3-36.5 L (BEAKER) (test code = 752) RED CELL DISTRIBUTION WIDTH 19.2 % 11.6-14.4 H (BEAKER) (test code = 412) PLATELET COUNT (BEAKER) (test 423 K/CU MM 150-450 code = 756) MEAN PLATELET VOLUME (BEAKER) 10.1 fL 9.4-12.4 (test code = 754) NUCLEATED RED BLOOD CELLS 0 /100 WBC 0-0 (BEAKER) (test code = 413) ABORH, [id number] 00:12:00 Test Item Value Reference Range Interpretation Comments ABO Grouping (test code = 2588) A Rh Factor (test code = 2589) POS [facility] HospitalType and screen, [id number] 23:47:00 Test Item Value Reference Range Interpretation Comments Ab Scrn (test code = 890-4) NEGATIVE done on Echo 1 [facility]POCT[facility]SE [id number] 23:42:00 Test Item Value Reference Range Interpretation Comments POC-GLUCOSE METER 96 mg/dL 70-110 : TESTED A T [facility] 6720 (BEAKER) (test code = NAMITA Brantley [facility], 1538) 15668: Rn Forensic/Techni patrick ID = [id number] for ODELL REBOLLEDO [id number] 22:56:00 Test Item Value Reference Range Interpretation Comments PARTIAL THROMBOPLASTIN TIME 62.4 seconds 22.5-36.0 H (BEAKER) (test code = 760) HEMOGLOBIN AND [id number] 22:45:00 Test Item Value Reference Range Interpretation Comments HEMOGLOBIN (BEAKER) (test code = 7.9 GM/DL 13.7-17.5 L 410) HEMATOCRIT (BEAKER) (test code = 27.0 % 40.1-51.0 L 411) Rn Forensic ID - [id number], [id number] 18:16:00Unlisted Reason for Exam - Click Yes and Enter Reason Below->YesUnlisted Reason for Exam->COLON CA WITH METS TO MUL SITESWill this procedure require oral contrast?->Yes [facility] : 1960 Sex: MFINAL REPORT TECHNIQUE: CT of the chest, abdomen, and pelvis WITH intr avenous contrast and WITH oral contrast. Dose modulation, iterative reconstruction, and/or weight-based adjustment of the mA/kV was utilized to reduce the radiation dose to as low as reasonably achievable. INDICATION: 59-year-old man with metastatic colon cancer. COMPARISON: Abdomen and pelvis CT 08/20/2020, chest CT 09/30/2020. FINDINGS: LINES/TUBES: Unchanged right internal jugular chest port terminates in the high superior vena cava. LUNGS AND AIRWAYS: Central airways are patent. Consolidative opacities throughout the right lung, decreased towards the lung apex. Increased number and size of scat tered left pulmonary nodules which measure up to 7 mm.PLEURA: No significant change in right pleuralnodularity. Increased size of the moderate loculated basal right pleural effusion which appears to contain hemorrhagic/proteinaceous debris.HEART AND MEDIASTINUM: Visualized thyroid gland is normal. Nosignificant change in prominent right mediastinal and subcarinal lymph nodes which measure up to 1.8cm. Heart and pericardium are within normal limits. HEPATOBILIARY: Multiple hepatic metastases, someof which of increased in size; for example, the largest metastasis has increased in size from 3.3 x 2.7 cm to 3.8 x 3.3 cm. Gallbladder is unremarkable. No biliary ductal dilatation.SPLEEN: No splenomeg bulmaro.PANCREAS: No focal mass or ductal dilatation. ADRENALS: Mildly increased size from 4.2 x 2.8 cm to 4.5 x 3.1 cm of the left adrenal nodule.KIDNEYS/URETERS: No hydronephrosis, calculus, or mass.PELVIC ORGANS/BLADDER: Prominent prostate. Bladder is underdistended. PERITONEUM/RETROPERITONEUM: Increased omental/peritoneal nodularity and trace ascites.LYMPH NODES: Increased size from 1.2 cm to 1.6 cm of a prominent portacaval lymph node.VESSELS: Unremarkable. GI TRACT: Telescoping stents within the descending colon. No distention or wall thickening. BONES AND SOFT TISSUES: Persistent foci of fat stranding in the superficial soft tissues of the anterior abdominal wall may be related to recent medication injections. Unchanged 1.6 x 1.4 cm lucent osseous focus in the left pubis. IMPRESSION: Chest CT:*Increased number and size of left pulmonary nodules, suspicious for metastases.*Increased size of the debris-containing moderate loculated right pleural effusion.*Decreased consolidative opacities towards the right lung apex may represent improved atelectasis or pneumonia.*Otherwise, no significant change since 09/30/2020. Abdomen and pelvis CT:*Increased size of hepatic and left adrenal metastases.*Increased size of a prominent portacaval lymph node, also suspicious for metastasis.*Worsened peritoneal carcinomatosis and trace ascites.*Otherwise, no significant change since 08/20/2020. Signed: Stephanie Duffy [facility]CAREeport Verified Date/Time: 11/03/2020 18:16:39 Reading Location: [facility] B1 C013Y CT BodyReading Room CT, CHEST, WITH [id number] 18:16:00Unlisted Reason for Exam - Click Yes and Enter Reason Below->YesUnlisted Reason for Exam->COLON CA WITH METS TO MUL SITES [facility] : 1960 Sex: MFINAL REPORT TECHNIQUE: CT of the chest, abdomen, and pelvis WITH intr avenous contrast and WITH oral contrast. Dose modulation, iterative reconstruction, and/or weight-based adjustment of the mA/kV was utilized to reduce the radiation dose to as low as reasonably achievable. INDICATION: 59-year-old man with metastatic colon cancer. COMPARISON: Abdomen and pelvis CT 08/20/2020, chest CT 09/30/2020. FINDINGS: LINES/TUBES: Unchanged right internal jugular chest port terminates in the high superior vena cava. LUNGS AND AIRWAYS: Central airways are patent. Consolidative opacities throughout the right lung, decreased towards the lung apex. Increased number and size of scat tered left pulmonary nodules which measure up to 7 mm.PLEURA: No significant change in right pleuralnodularity. Increased size of the moderate loculated basal right pleural effusion which appears to contain hemorrhagic/proteinaceous debris.HEART AND MEDIASTINUM: Visualized thyroid gland is normal. Nosignificant change in prominent right mediastinal and subcarinal lymph nodes which measure up to 1.8cm. Heart and pericardium are within normal limits. HEPATOBILIARY: Multiple hepatic metastases, someof which of increased in size; for example, the largest metastasis has increased in size from 3.3 x 2.7 cm to 3.8 x 3.3 cm. Gallbladder is unremarkable. No biliary ductal dilatation.SPLEEN: No splenomeg bulmaro.PANCREAS: No focal mass or ductal dilatation. ADRENALS: Mildly increased size from 4.2 x 2.8 cm to 4.5 x 3.1 cm of the left adrenal nodule.KIDNEYS/URETERS: No hydronephrosis, calculus, or mass.PELVIC ORGANS/BLADDER: Prominent prostate. Bladder is underdistended. PERITONEUM/RETROPERITONEUM: Increased omental/peritoneal nodularity and trace ascites.LYMPH NODES: Increased size from 1.2 cm to 1.6 cm of a prominent portacaval lymph node.VESSELS: Unremarkable. GI TRACT: Telescoping stents within the descending colon. No distention or wall thickening. BONES AND SOFT TISSUES: Persistent foci of fat stranding in the superficial soft tissues of the anterior abdominal wall may be related to recent medication injections. Unchanged 1.6 x 1.4 cm lucent osseous focus in the left pubis. IMPRESSION: Chest CT:*Increased number and size of left pulmonary nodules, suspicious for metastases.*Increased size of the debris-containing moderate loculated right pleural effusion.*Decreased consolidative opacities towards the right lung apex may represent improved atelectasis or pneumonia.*Otherwise, no significant change since 09/30/2020. Abdomen and pelvis CT:*Increased size of hepatic and left adrenal metastases.*Increased size of a prominent portacaval lymph node, also suspicious for metastasis.*Worsened peritoneal carcinomatosis and trace ascites.*Otherwise, no significant change since 08/20/2020. Signed: Stephanie Duffy MDReport Verified Date/Time: 11/03/2020 18:16:39 Reading Location: [facility] B1 C013Y CT BodyReading Room CT chest with IV [id number] 18:16:00Interface, External Ris In - 11/03/2020 6:19 PM CSTFINAL REPORT TECHNIQUE: CT of the chest, abdomen, and pelvis WITH intravenous contrast and WITH oral contrast. Dose modulation, iterative reconstruction, and/or weight- based adjustment of the mA/kV was utilized to reduce the radiation dose to as low as reasonably achievable. INDICATION: 59-year-old man with metastatic colon cancer. COMPARISON: Abdomen and pelvis CT 08/20/2020, chest CT 09/30/2020. FINDINGS: LINES/TUBES: Unchanged right internal jugular chest port terminates in the high superior vena cava. LUNGS AND AIRWAYS:Central airways are patent. Consolidative opacities throughout the right lung, decreased towards thelung apex. Increased number and size of scattered left pulmonary nodules which measure up to 7 mm.PLEURA: No significant change in right pleural nodularity. Increased size of the moderate loculated basal right pleural effusion which appears to contain hemorrhagic/proteinaceous debris.HEART AND MEDIASTINUM: Visualized thyroid gland is normal. No significant change in prominent right mediastinal and subcarinal lymph nodes which measure up to 1.8 cm. Heart and pericardium are within normal limits. HEPATOBILIARY: Multiple hepatic metastases, some of which of increased in size; for example, the largest m etastasis has increased in size from 3.3 x 2.7 cm to 3.8 x 3.3 cm. Gallbladder is unremarkable. No biliary ductal dilatation.SPLEEN: No splenomegaly.PANCREAS: No focal mass or ductal dilatation. ADRENALS: Mildly increased size from 4.2 x 2.8 cm to 4.5 x 3.1 cm of the left adrenal nodule.KIDNEYS/URETERS: No hydronephrosis, calculus, or mass.PELVIC ORGANS/BLADDER: Prominent prostate. Bladder is underdistended. PERITONEUM/RETROPERITONEUM: Increased omental/peritoneal nodularity and trace ascites.LYMPH NODES: Increased size from 1.2 cm to 1.6 cm of a prominent portacaval lymph node.VESSELS: Unremarkable. GI TRACT: Telescoping stents within the descending colon. No distention or wall thickening. BONES AND SOFT TISSUES: Persistent foci of fat stranding in the superficial soft tissues of the anterior abdominal wall may be related to recent medication injections. Unchanged 1.6 x 1.4 cm lucent osseous focus in the left pubis. IMPRESSION: Chest CT:*Increased number and size of left pulmonary nodules, suspicious for metastases.*Increased size of the debris-containing moderate loculated right pleural effusion.*Decreased consolidative opacities towards the right lung apex may represent improved atelectasis or pneumonia.*Otherwise, no significant change since 09/30/2020. Abdomen and pelvis CT:*Increased size of hepatic and left adrenal metastases.*Increased size of a prominent portacaval lymph node, also suspicious for metastasis.*Worsened peritoneal carcinomatosis and trace ascites.*Otherwise, no significant change since 08/20/2020. Signed: Stephanie Duffy MDReport Verified Date/Time: 11/03/2020 18:16:39 Reading Location: [facility] B1 C013Y CT Body Reading [facility] [id number] 18:16:00 Interface, External Ris In - 11/03/2020 6:19 PM CSTFINAL REPORT TECHNIQUE: CT of the chest, abdomen, and pelvis WITH intravenous contrast and WITH oral contrast. Dose modulation, iterative reconstruction, and/or weight-based adjustment of the mA/kV was utilized to reduce the radiation dose to as low as reasonably achievable. INDICATION: 59-year-old man with metastatic colon cancer. COMPARISON: Abdomen and pelvis CT 08/20/2020, chest CT 09/30/2020. FINDINGS: LINES/TUBES: Unchanged right internal jugular chest port terminates in the high superior vena cava. LUNGS AND AIRWAYS:Central airways are patent. Consolidative opacities throughout the right lung, decreased towards the lung apex. Increased number and size of scattered left pulmonary nodules which measure up to 7 mm.PLEURA: No significant change in right pleural nodularity. Increased size of the moderate loculated basal right pleural effusion which appears to contain hemorrhagic/proteinaceous debris.HEART AND MEDIASTINUM: Visualized thyroid gland is normal. No significant change in prominent right mediastinal and subcarinal lymph nodes which measure up to 1.8 cm. Heart and pericardium are within normal limits. HEPATOBILIARY: Multiple hepatic metastases, some of which of increased in size; for example, the largest m etastasis has increased in size from 3.3 x 2.7 cm to 3.8 x 3.3 cm. Gallbladder is unremarkable. No biliary ductal dilatation.SPLEEN: No splenomegaly.PANCREAS: No focal mass or ductal dilatation. ADRENALS: Mildly increased size from 4.2 x 2.8 cm to 4.5 x 3.1 cm of the left adrenal nodule.KIDNEYS/URETERS: No hydronephrosis, calculus, or mass.PELVIC ORGANS/BLADDER: Prominent prostate. Bladder is underdistended. PERITONEUM/RETROPERITONEUM: Increased omental/peritoneal nodularity and trace ascites.LYMPH NODES: Increased size from 1.2 cm to 1.6 cm of a prominent portacaval lymph node.VESSELS: Unremarkable. GI TRACT: Telescoping stents within the descending colon. No distention or wall thickening. BONES AND SOFT TISSUES: Persistent foci of fat stranding in the superficial soft tissues of the anterior abdominal wall may be related to recent medication injections. Unchanged 1.6 x 1.4 cm lucent osseous focus in the left pubis. IMPRESSION: Chest CT:*Increased number and size of left pulmonary nodules, suspicious for metastases.*Increased size of the debris-containing moderate loculated right pleural effusion.*Decreased consolidative opacities towards the right lung apex may represent improved atelectasis or pneumonia.*Otherwise, no significant change since 09/30/2020. Abdomen and pelvis CT:*Increased size of hepatic and left adrenal metastases.*Increased size of a prominent portacaval lymph node, also suspicious for metastasis.*Worsened peritoneal carcinomatosis and trace ascites.*Otherwise, no significant change since 08/20/2020. Signed: Stephanie Duffy MDReport Verified Date/Time: 11/03/2020 18:16:39 Reading Location: [facility] C013Y CT Body Reading Room [facility] [id number] 17:52:00 Test Item Value Reference Range Interpretation Comments POC-GLUCOSE METER 131 mg/dL 70-110 H : [facility] ([employer]) (test code = JORGEJAMI CHEN [place], 1538) 24579: Rn Forensic/Techni patrick ID = [id number] for Jyoti Aaron [id number] 13:36:00 Test Item Value Reference Range Interpretation Comments PARTIAL THROMBOPLASTIN TIME 50.1 seconds 22.5-36.0 H (BEAKER) (test code = 760) POCT-GLUCOSE [id number] 12:30:00 Test Item Value Reference Range Interpretation Comments POC-GLUCOSE METER 94 mg/dL 70-110 : TESTED A T [facility] 6720 (BEAKER) (test code = NAMITA CHEN [place], 1538) 31247: Rn Forensic/Techni patrick ID = [id number] for Jyoti Pierson Basic Metabolic [id number] 07:07:00 Test Item Value Reference Range Interpretation Comments Sodium (test code = 139 meq/L 094-143 0806-2) Potassium (test code = 3.7 meq/L 3.5-5.1 2823-3) Chloride (test code = 102 meq/L 98-107 2075-0) CO2 (test code = 28 meq/L 22-29 2028-9) BUN (test code = 6 mg/dL 7-21 L 3094-0) Creatinine (test code 0.63 mg/dL 0.57-1.25 = 2160-0) Glucose (test code = 86 mg/dL 70-105 2345-7) Calcium (test code = 8.6 mg/dL 8.4-10.2 94437-6) EGFR (test code = 158 mL/min/1.73 [place] [address]-4) NOT ACCURATE CREATININE CLEARANCE IN PREDICTING GLOMERULAR FILTRATION RATE . ESTIMATED GFR I S NOT APPLICABLE FOR DIALYSIS PATIENTS. MIGUEL A (test code = MIGUEL A) Rn Forensic ID - PIAYA L Lab Interpretation Abnormal (test code = 95731-3) [facility] METABOLIC [id number] 07:07:00 Test Item Value Reference Range Interpretation Comments SODIUM (BEAKER) 139 meq/L 136-145 (test code = 381) POTASSIUM (BEAKER) 3.7 meq/L 3.5-5.1 (test code = 379) CHLORIDE (BEAKER) 102 meq/L 98-107 (test code = 382) CO2 (BEAKER) (test 28 meq/L 22-29 code = 355) BLOOD UREA NITROGEN 6 mg/dL 7-21 L (BEAKER) (test code = 354) CREATININE (BEAKER) 0.63 mg/dL 0.57-1.25 (test code = 358) GLUCOSE RANDOM 86 mg/dL 70-105 (BEAKER) (test code = 652) CALCIUM (BEAKER) 8.6 mg/dL 8.4-10.2 (test code = 697) EGFR (BEAKER) (test 158 mL/min/1.73 ESTIM ATED GFR IS code = 1092) sq m NOT ACCURATE CREATININE CLEARANCE IN PREDICTING GLOMERULAR FILTRATION RATE . ESTIMATED GFR I S NOT APPLICABLE FOR DIALYSIS PATIEN TS. Rn Forensic ID - PIAYA LCBC W/PLT COUNT & AUTO [id number] 06:36:00 Test Item Value Reference Range Interpretation Comments WHITE BLOOD CELL COUNT (BEAKER) 5.1 K/ L 3.5-10.5 (test code = 775) RED BLOOD CELL COUNT (BEAKER) 3.36 M/ L 4.63-6.08 L (test code = 761) HEMOGLOBIN (BEAKER) (test code = 7.9 GM/DL 13.7-17.5 L 410) HEMATOCRIT (BEAKER) (test code = 27.5 % 40.1-51.0 L 411) MEAN CORPUSCULAR VOLUME (BEAKER) 81.8 fL 79.0-92.2 (test code = 753) MEAN CORPUSCULAR HEMOGLOBIN 23.5 pg 25.7-32.2 L (BEAKER) (test code = 751) MEAN CORPUSCULAR HEMOGLOBIN CONC 28.7 GM/DL 32.3-36.5 L (BEAKER) (test code = 752) RED CELL DISTRIBUTION WIDTH 18.9 % 11.6-14.4 H (BEAKER) (test code = 412) PLATELET COUNT (BEAKER) (test 358 K/CU MM 150-450 code = 756) MEAN PLATELET VOLUME (BEAKER) 9.5 fL 9.4-12.4 (test code = 754) NUCLEATED RED BLOOD CELLS 0 /100 WBC 0-0 (BEAKER) (test code = 413) NEUTROPHILS RELATIVE PERCENT 40 % (BEAKER) (test code = 429) LYMPHOCYTES RELATIVE PERCENT 30 % (BEAKER) (test code = 430) MONOCYTES RELATIVE PERCENT 12 % (BEAKER) (test code = 431) EOSINOPHILS RELATIVE PERCENT 17 % (BEAKER) (test code = 432) BASOPHILS RELATIVE PERCENT 1 % (BEAKER) (test code = 437) NEUTROPHILS ABSOLUTE COUNT 2.01 K/ L 1.78-5.38 (BEAKER) (test code = 670) LYMPHOCYTES ABSOLUTE COUNT 1.51 K/ L 1.32-3.57 (BEAKER) (test code = 414) MONOCYTES ABSOLUTE COUNT (BEAKER) 0.60 K/ L 0.30-0.82 (test code = 415) EOSINOPHILS ABSOLUTE COUNT 0.87 K/ L 0.04-0.54 H (BEAKER) (test code = 416) BASOPHILS ABSOLUTE COUNT (BEAKER) 0.04 K/ L 0.01-0.08 (test code = 417) IMMATURE GRANULOCYTES-RELATIVE 0 % 0-1 PERCENT (BEAKER) (test code = 2801) [id number] 06:29:00 Test Item Value Reference Range Interpretation Comments PARTIAL THROMBOPLASTIN TIME 54.6 seconds 22.5-36.0 H (BEAKER) (test code = 760) POCT-GLUCOSE [id number] 05:42:00 Test Item Value Reference Range Interpretation Comments POC-GLUCOSE METER 84 mg/dL 70-110 : TESTED A T [facility] 6720 (BEAKER) (test code = [facility], 1538) 84605: Rn Forensic/Techni patrick ID = [id number] for Chayito Sims [id number] 00:33:00 Test Item Value Reference Range Interpretation Comments PARTIAL THROMBOPLASTIN TIME 43.5 seconds 22.5-36.0 H (BEAKER) (test code = 760) 6 hours after starting heparin infusion and as indicated per sliding scalePOCT- GLUCOSE [id number] 23:55:00 Test Item Value Reference Range Interpretation Comments POC-GLUCOSE METER 92 mg/dL 70-110 : TESTED A T [facility] 6720 (BEAKER) (test code = [facility], 1538) 46649: Rn Forensic/Techni patrick ID = [id number] for Chayito Sims POCT-GLUCOSE [id number] 17:52:00 Test Item Value Reference Range Interpretation Comments POC-GLUCOSE METER 78 mg/dL 70-110 : TESTED A T [facility] 6720 (BEAKER) (test code = [facility] [employer] [facility], 1538) 62590: Rn Forensic/Techni patrick ID = [id number] for KELSIE VAZ [id number] 12:58:00 Test Item Value Reference Range Interpretation Comments PARTIAL THROMBOPLASTIN TIME 31.1 seconds 22.5-36.0 (BEAKER) (test code = 760) Prior to initiating heparinPOCT-GLUCOSE [id number] 12:32:00 Test Item Value Reference Range Interpretation Comments POC-GLUCOSE METER 70 mg/dL 70-110 : TESTED A T [facility] 67[facility] ([employer]) (test code = NAMITA CHEN [place], 1538) 88685: Rn Forensic/Techni patrick ID = [id number] for KELSIE VAZ Comprehensive metabolic [id number] 10:38:00 Test Item Value Reference Range Interpretation Comments Protein, Total (test 8.2 See_Comment [Autom ated code = 2885-2) message] The system which generated this result transmit murphy reference range : 6.0 - 8.3 gm/dL . The reference range was not u sed to interpret th is result as normal/abnormal . Albumin (test code = 3.3 g/dL 3.5-5 L 63133-2) Alkaline Phosphatase 82 U/L 40-150 (test code = 6768-6) Total Bilirubin (test 0.4 mg/dL 0.2-1.2 code = 1975-2) Sodium (test code = 137 meq/L 751-721 8730-2) Potassium (test code 3.7 meq/L 3.5-5.1 = 2823-3) Chloride (test code = 102 meq/L 98-107 2075-0) CO2 (test code = 26 meq/L 22-29 2028-9) BUN (test code = 5 mg/dL 7-21 L 3094-0) Creatinine (test code 0.64 mg/dL 0.57-1.25 = 2160-0) Glucose (test code = 65 mg/dL 70-105 L 2345-7) Calcium (test code = 8.6 mg/dL 8.4-10.2 66552-3) AST (test code = 15 U/L 5-34 1920-8) ALT (test code = 7 U/L 6-55 1742-6) EGFR (test code = 155 mL/min/1.73 [place] [address]-4) NOT ACCURATE CREATININE CLEARANCE IN PREDICTING GLOMERULAR FILTRATION RATE . ESTIMATED GFR I S NOT APPLICABLE FOR DIALYSIS PATIEN MIGUEL A (test code = MIGUEL A) Rn Forensic ID - SAHRA C Lab Interpretation Abnormal (test code = 49337-0) [facility] [id number] 10:38:00 Test Item Value Reference Range Interpretation Comments TOTAL PROTEIN 8.2 gm/dL 6.0-8.3 (BEAKER) (test code = 770) ALBUMIN (BEAKER) 3.3 g/dL 3.5-5.0 L (test code = 1145) ALKALINE PHOSPHATASE 82 U/L 40-150 (BEAKER) (test code = 346) BILIRUBIN TOTAL 0.4 mg/dL 0.2-1.2 (BEAKER) (test code = 377) SODIUM (BEAKER) (test 137 meq/L 136-145 code = 381) POTASSIUM (BEAKER) 3.7 meq/L 3.5-5.1 (test code = 379) CHLORIDE (BEAKER) 102 meq/L 98-107 (test code = 382) CO2 (BEAKER) (test 26 meq/L 22-29 code = 355) BLOOD UREA NITROGEN 5 mg/dL 7-21 L (BEAKER) (test code = 354) CREATININE (BEAKER) 0.64 mg/dL 0.57-1.25 (test code = 358) GLUCOSE RANDOM 65 mg/dL 70-105 L (BEAKER) (test code = 652) CALCIUM (BEAKER) 8.6 mg/dL 8.4-10.2 (test code = 697) AST (SGOT) (BEAKER) 15 U/L 5-34 (test code = 353) ALT (SGPT) (BEAKER) 7 U/L 6-55 (test code = 347) EGFR (BEAKER) (test 155 ESTIMATE D GFR IS code = 1092) mL/min/1.73 sq NOT ACCURA TE m CREATININE CLEARANCE IN PREDICTING GLOMERULAR FILTRATION RATE . ESTIMATED GFR I S NOT APPLICABLE FOR DIALYSIS PATIEN TS. Rn Forensic ID - SAHRA CProthrombin time/[id number] 10:25:00 Test Item Value Reference Interpretation Comments Range Protime (test code = 14.7 See_Comment H [Autom ated 5902-2) message] The system which generated this result transmitted reference range : 11.9 - 14.2 seconds. The reference range was not used to interpret this result as normal/abnormal . INR (test code = 1.19 See_Comment [Automated 6301-6) message] The system which generated this result transmitted reference range : <=5.90. The reference range was not used to interpret this result as normal/abnormal . MIGUEL A (test code = RECOMMENDED MIGUEL A) COUMADIN/WARFARIN INR THERAPY RANGESSTANDARD DOSE: 2.0 - 3.0 Includes: PROPHYLAXIS for venous thrombosis, systemic embolization; TREATMENT for venous thrombosis and/or pulmonary embolus.HIGH RISK: Target INR is 2.5-3.5 for patients with mechanical heart valves. Lab Interpretation Abnormal (test code = 47262-6) [facility][id number] 10:25:00 Test Item Value Reference Range Interpretation Comments PROTIME (BEAKER) (test code = 14.7 seconds 11.9-14.2 H 759) INR (BEAKER) (test code = 370) 1.19 <=5.90 RECOMMENDED COUMADIN/WARFARIN INR THERAPY RANGESSTANDARD DOSE: 2.0 - 3.0 Includes: PROPHYLAXIS forvenous thrombosis, systemic embolization; TREATMENT for venous thrombosis and/or pulmonary embolus.HIGH RISK: Target INR is 2.5-3.5 for patients with mechanical heart valves.CBC W/PLT COUNT & AUTO DIFFERENTIAL 2020-11-02 10:11:00 Test Item Value Reference Range Interpretation Comments WHITE BLOOD CELL COUNT (BEAKER) 5.3 K/ L 3.5-10.5 (test code = 775) RED BLOOD CELL COUNT (BEAKER) 3.85 M/ L 4.63-6.08 L (test code = 761) HEMOGLOBIN (BEAKER) (test code = 9.2 GM/DL 13.7-17.5 L 410) HEMATOCRIT (BEAKER) (test code = 31.4 % 40.1-51.0 L 411) MEAN CORPUSCULAR VOLUME (BEAKER) 81.6 fL 79.0-92.2 (test code = 753) MEAN CORPUSCULAR HEMOGLOBIN 23.9 pg 25.7-32.2 L (BEAKER) (test code = 751) MEAN CORPUSCULAR HEMOGLOBIN CONC 29.3 GM/DL 32.3-36.5 L (BEAKER) (test code = 752) RED CELL DISTRIBUTION WIDTH 19.0 % 11.6-14.4 H (BEAKER) (test code = 412) PLATELET COUNT (BEAKER) (test 401 K/CU MM 150-450 code = 756) MEAN PLATELET VOLUME (BEAKER) 9.3 fL 9.4-12.4 L (test code = 754) NUCLEATED RED BLOOD CELLS 0 /100 WBC 0-0 (BEAKER) (test code = 413) NEUTROPHILS RELATIVE PERCENT 42 % (BEAKER) (test code = 429) LYMPHOCYTES RELATIVE PERCENT 32 % (BEAKER) (test code = 430) MONOCYTES RELATIVE PERCENT 11 % (BEAKER) (test code = 431) EOSINOPHILS RELATIVE PERCENT 14 % (BEAKER) (test code = 432) BASOPHILS RELATIVE PERCENT 1 % (BEAKER) (test code = 437) NEUTROPHILS ABSOLUTE COUNT 2.19 K/ L 1.78-5.38 (BEAKER) (test code = 670) LYMPHOCYTES ABSOLUTE COUNT 1.67 K/ L 1.32-3.57 (BEAKER) (test code = 414) MONOCYTES ABSOLUTE COUNT (BEAKER) 0.58 K/ L 0.30-0.82 (test code = 415) EOSINOPHILS ABSOLUTE COUNT 0.74 K/ L 0.04-0.54 H (BEAKER) (test code = 416) BASOPHILS ABSOLUTE COUNT (BEAKER) 0.06 K/ L 0.01-0.08 (test code = 417) IMMATURE GRANULOCYTES-RELATIVE 0 % 0-1 PERCENT (BEAKER) (test code = 2801) RAD, CHEST, 2 [id number] 09:28:00Reason for Exam:->[facility] : 1960 Sex: MFINAL REPORT EXAMINATION: RAD, CHEST, 2 VIEWS INDICATION: Pleural effusion COMPARISON: 10/02/2020 FINDINGS:TUBES and LINES: Right anterior chest port catheterlooped over the right upper chest with distal [...] MDReport Verified Date/Time: 10/09/2020 09:28:01 Reading Location: [facility] Reading Room [address] [place] [address] Electronically signed by: STARR BAILEY on 04/2021 09:28 AMXR Chest 2 [id number] 09:28:00Interface, External Ris In - 10/09/2020 9:30 AM CSTFINAL REPORT EXAMINATION: RAD, CHEST, 2 VIEWS INDICATION: [...] free air under the diaphragm. IMPRESSION: Likely scarring/atelectasisat the right lung base with moderate size right pleural effusion. Slight improved aeration of the right lung when compared with the prior exam. The left lung is clear. Signed: Starr Bailey MDReport Verified Date/Time: 10/09/2020 09:28:01 Reading Location: [place] [facility] [employer] Reading Room [address] [address] [facility] [id number] 09:40:00 Test Item Value Reference Range Interpretation Comments Case Report (test code Surgical Pathology = 104) Report Case: [id number] Authorizing Provider: Tarun Rai MD Collected: 09/30/2020 09:05 AM Ordering Location: [facility] Received: 09/30/2020 09:23 AM PERIOPERATIVE SERVICES Pathologist: Allen Velazquez MD Specimens: A) - Pleural, Right, RIGHT PLEURAL BIOPSY B) - Pleural, Right, RIGHT PLUERAL BIOPSY R/O CANCER DIAGNOSIS (test code = [id number] 3220) FuZzEwMzNcZnRuYmpcdWMx IHtccnRmMVxlcGljOTIwMF jrcrKoXUBcvDNoI2Ajhqdh KEqaGI8yMR6kfIfpnUAecI GcMUPpCuCam1cau086oMNt b9xvOHVDwwejePn7kSavV4 7uz3M4FhqjE42fdAZoINnt bGFpblxmczIwIEEuIFBMRV NIGHhnCnbLYOTdEOFUS3VY SUuktPNzTJ3IWMBLEHLAVT ghKKaOEhAPZP8UKAWYWURe OJYXFv8XXPRUXH5VTWBdWB DjwgVYXJEhYEiMB68LJ0VB CfETW01CLZ7VIvjpRMJpyQ FyIEIuIFBMRVVSQSwgUklH QDFjDSQFS7OBOCecrRLaKT 1PREVSQVRFTFkgRElGRkVS ZA0NZZVWMWHuQVBLUa3SZF YZQL5GNDReQQNjbf12KIH5 UcWxd1T0PAZ2EIVlEXGae8 lcZGVmbGFuZzEwMzNcZnRu YeqhpVUhBFUyHeKex7kyd9 42eQTek0duEEItWgE4qEYj WZYxlLAnS399ABFrCDhoq8 vvy3IbZLCprEDed7E5XJZF kwwopPm6hAevW18rg3G9Wu xaO7cxYGZlKELcX2QtXK2w LMYyDfa6KRK2VYV2TPXuKG HyN2SlEN8vJSRmpJFfPSu5 n0ixaWcdNZNkDFI7l8frRB cqfjNzPB9lpo3nkRm4z4ga czEgRGVmYXVsdCBQYXJhZ3 EjgEybMw7pdTz8uOxvPbol DNJ1Ipx6DI6vqi18pvk1nF qqCDBenwstPgX9GOlbEZOi tedqSSm8UGreQDOblZN5BS TrkADlK9MaPLEfFR2nmzr2 SWR8SUcaUCXpVpZ4WGAimV CdMXHfvYcvMGqxh812ZKW7 ElKkFM1hB5Yjl0B6eR0vqD ApJZXgfJOzFlPxMCCqjg9c kWIiKSafp0BqIEQ6ipW3vB RkwIPdCPEhCiR2WMyfDM0u im45BWPaKUW3yo7nhFMwpL tnceTmfGXbXBneZ8XlFSEn q301UTLzK0WyDZKzd6U3em JhGlDiFEJskYV8qjL7KVUv ZH5pflist8ztVXevUEmfWS SdukQ4pxR6XAOsmUFaM2Ua eM7iUWUcSS5lfjttj3ozHM F8SQzcKFDiXSZ2HxEbVAGm b0Ykufg2XkIrf5HpdDTsYV jfK20ea669CSXztmTsL5nn bGFpblxwbGFpblxmMFxmcz B7BXTnYSlaaojnQUKvUPgt D2wmCeTpMTErlAoxRIqrq4 NoXGYxXGZzMjJcdGFiXHRh Vqc4HCIuwZRnCQOnDiDsA1 usdpqpPyJBZQSas4vbO7mb xDCHuHUyF0NmPJfftwPeBD qzHClqQIObHDU4IA75QMxg INZiuw70 COMMENT (test code = [id number] 3357) Hye1xtt2VibSNzvOLdPHhh oBQunaZgsv82cEE6dI86AP 8rRVMiNnC4IZRsnbD1Oli8 QRBkDLXkaYPoL642s3rqr5 winiMofDX6iQlcMREcBIOq ZEzpHYSeLtKzQM4flQ4qyD iebK9enOWrxIKpaCTrbMUr yMNnIPQzcoIxrz5iINBgvx IvpK5utsOAVsReYU4yxjO5 brV9MOH9oZTubBHqg0EdR8 TlhOZauR3xLpEloM3fbARr feFjIp3kGMKXNlYlUY3aFC DTMAYlQOFlCWilULKwJV8c D5K7xADoCHDzdkTIXvfxRY 5dQTTMDaUhQNSqLAIwtJ90 lw7hjPExw7W6sAjsRGCkTV rmrRrhIHBhwPaxVT6brgNq n8hpJ0coUOLmayCbfjogDS AaKFViv43vWRSmGxvbKSia wGvsDN8lFBCebk5jILPgwT 4cpYTnz9AmS80xx96jAyNu kpibrC8hIXcnRGS2 CPT Code(s) (test code k8mjsKNxSBWqjZE0OzLoMM = 3357) Lbv4knp1QouDLbkELrRVew mRWimcVben30dVW4aN74DP 6fSCLqKeP9EGTyqrS1Sxp6 KOVqYHEckWRwQ359w1jcw4 oebzKsvFW1wWnzJDWqFGYz YWluXGZzMjAgODgzMzEsID d3LmW6IXunKfvfMAthJBJf RQm7PqYkyLMtvXOzjY== CLINICAL HISTORY (test v6ceaFFuMEMugLA0OaFsNU code = 3356) Itm3qis2OocNQsqHKtLSvl qWJyrsWyzs14dTB9jP05PD 7uHWWqMiN5LXLrolB7Eps0 XHLwKNBriXIyB018c1wxc0 ikuuAmaTA7dVyfYVXwBLVv RRwzAQVbWeGjUCHtw9Wknf L0tFJcLWUoDXgni6Lslkbm OAljxAZuzXUwIhX2w5axqf 5ccGFyfQ== SPECIMEN SOURCE (test q3iceAAoCWDrzCK9ZgOcYG code = 3377) Yeo8nls5TwhRUbfAWeVYwp vJHxgnKvta07cEZ8tD25SC 6qTJRpRvL0EWJzleJ2Nka2 QNFrTNQccGSlO183g2zni6 sxvqDhxZL1qRurXVEhLIDb BDynETXiLwByOL9mALovqQ JhbCwgcmlnaHQgXHBhciBC LtBHzGO5njTvCFIewWytkO BccGFyfQ== GROSS DESCRIPTION (test q6utmQSgDHLpnQV9KrLmBW code = 3366) Lyl4rvz9VgfKPshNZnQRnd bYDcabFlxp05aPQ1pV93RK 5tKYQqKwO8RENkijP5Iop7 KPQmOTScoQIhV900d6beb7 djsaBnnWP7dPgdIWRcQIBg YWluXGZzMjAgUGFydCBBIH ZlC6YtfsDqPQcqOTBafk0v tCewLUqiYoLsIZErn3l9qW G1jKZvvBY2pFOthCydEM6c dKFpVIZcpANei5GnPegkeP klOPBfy0pcdaUeBZRuG3Kn j5qertOhnC8bXUGxFK8oKL ZawCK6chRfQAXheKuqiWBd D08zg2dkxNAbj8ZyyWPzoQ hvuGUtY9NavN9qtICbxrWz aqJslIPhmVErf7Ndm27xfW E5wFUfqBChmTNgg4IcwK8j WSCjePucWF8mYZ05WNTkAV EuNSBjbSBpbiBncmVhdGVz bQRvwI5aymMke41yYH6uCQ GwbKEbCiTgxHKoIuwxH67r lA7jBNzgnwJqJNTyIzVUrC IaKB22cKEcWKJgz1V6SXSz xcQhwCQyoKU9UVDrsZ0rN8 Hlv8V2sNKcJBJgYRWsRmhi YXJccGFyXGYwIFBhcnQgQi ByZWNlaXZlZCBmcmVzaCBm n5TlqN00bbXepQLtLCHtpk LmI35im9PfaPG1jB0rUYrm RxBdFZUxu2q9zGY2tHEseL W7bSUnxRsgDE9miJWjGQGt hCQyj0EdDqvjfTqfMBGvf0 fnyzKvCLBaP3Bsa1mymfTd pZ0sYHJhPI6gXMFggBB6hk HmKFJahEiyvKMzK16sr6xl sCChc4NyhGkwFFYrswhsyF Ylg51sAAMjFXyrTG39vvPl QqPec7R8WEAvs9N2NDWoYC OclZJbsrbbLq43IDtbEQ46 UFstBQ23CHWbWIsvGOEtY7 SpX3I7QK4iKZVdm2C1kJ6k RP7rAQWcVXPdUHTkr38au3 HwZPW5Tr6zuXTxOEQxg7Xu HnKvftScQAFaF5Pkj77kPE TrJEC6tEFjfcFjlSv8foI3 HHRwCJErdL69uafcLMFeJL C0jwG8cKSxu4IaT6mrDXxd nZNdwB5wFYovSLBfeWqrLB O1bGCphNGxnK0qhFDviT4y EPGsDHJhMZ1geR9sZVUfn5 JaxHxjRUBas4vvwaWrBAH2 hC4vCOygACJ7Co2naQIdIL TknwBzDJIyVXC3XJEFHW8H NCAoQjEgaXMgdGhlIHJlbW MishQdnpUkKlB8jBLyVmIu hdGkQCTaP2Axu37oDxNUZd 9hc0umGUQ8 INTRAOPERATIVE u9ysqDEuQTKaiNC6ByLpMJ CONSULTATION (test code Vrw7xxb9OfmLMbaLXkANse = 3369) pCIbseAwyi15zEX8kC20RT 1iKXWlUsH8DIBycxY7Hdb4 OWRdQBEnyZJqX484t0xln1 pgmkAivGK1uCetORFsSBGg YWluXGZzMjBccGFyXGYwIE IuIFBMRVVSQSwgUklHSFQs MHTSM3MTCCzooIKjYYOlJX EBT5YBDXjTFJBAM2JuK8YL C1xCO26QSPunAPM9 MICROSCOPIC DESCRIPTION n2bedOGqCKZpiGE2YgPoFY (test code = 3371) Acr4ypn1CjpIMbwGOrRGto nBZnhgTshb94gKU3yY90YA 9dHTJwKeZ7PAPfjeH9Sww7 UEWqIXUpxASaC666y1cch1 bfhwEseES1iDgkVLSkZGVc TLljVFGdSjJiTXZjFz2syT VkLiBccGFyfQ== SPECIAL STUDIES (test l8ajsYSzHSWis1ktGNAhxW code = 3376) FuZzEwMzNcZnRuYmpcdWMx VRnbnmUfVIkpa2DtR9SlRe AwMFxhbnNpXGRlZmxhbmcx AGQoRYB8gmQkCWZuPIqySB ClWTpkMv2trKYuhBeuQgBq VEAil1dsjsFWaggzgEu3z0 dnXMBdGnY7yAEcQWkpE7dw ihHsmMPzJ3RqxETjcVz6g0 knKeOjOdV9hDQzTTxjH6fx saSkoDVcZYUpKOo0qE67JI YznE4ffMZeJFgkmkTqOoO4 HMxyWGXzAfC2CMTskXOjRA ZtP7leCLOwNFwlFTEoCSkv kMBiFLG6vUzxd6M5vFOhfN OclAoxTnJpCqFfEkTNn8Aj HOs5gYhuZ6UxVBRpMfI5nS QgUGFyYWdyYXBoIEZvbnQ7 eBwdvtGti18ywWWfKTQmDG AfMpIrxKtdURKbDSUGx7Vk pLneTPV6vZd4lFrnDknfOT P7Lng5JZ1olu71vqo1fZfp UFTedztvUnO9OBgfVFJyuh hrSVs8EKeyVIHycXL6MPVs bIFbC1NfPTKzZN1asnt5FP E3TXlvIACkAaG0RTPefTVj ZFLasIyxVWnak500LWE1Px ZdRY5oK5Cak4N5vV8mlFLy GOOxzGUeQdHwIZQbbb4aeT BeDWros1TgRRV2nfJ9mNKz cOQtFAGhXN25Zsxfu5PfDh swg4WkG95jgDB9XNaqr4wo GC0nWgT0lrVlZBebz4fztJ 2sJoA3HGltSO8dQL2jJXGj bQ1nfzlnJJNePfVdaucmNT WybPqvoaCmUm3nbOcdXEF5 VMbjN1iwfT3eOvZ1ZUvmM2 fngH4bVPp7UTqxlRW5TYJi nU2fUW4rgkdzx0ajCNrcWM dcEXWfhdX5ciO4YJVgaDUy W9EfvZ5rOWOjFI3oeqrhe0 deUTF7GYbrOHAiFLM5LxCu WTGuv0Quhlq7CbOcw0UweJ NkUZknY97rt872PMCbgnVr N3zrbHCeplzfrJRfodfwGQ xvtiV7DCGbJYDpKQadTQKe XGZzMjJcbGFuZzEwMzNcaG ljaFxmMVxkYmNoXGYxXGxv D2qcGwMoA5NgGXEqBlKeKQ fdRQctqTWffELibZT1tZ7y ON0kEBUozHQhB5TzGBBtmt YxoAZqORA2gNSfdGIqFQ3h WAwlvQQll1ccp0LhZ0akcZ jgcKX3CN8hHLFxUWEePDji m6OeiU5cGroprLSzbtvgMP xmczIyXGxhbmcxMDMzXGhp I2ysYmYuWKXtmQqiKQzuv8 NoXGYxXGNmMlxmczIyXGx0 cmNoXHBhclxwYXJccGxhaW 9fPeAbWlYnJlflJO3jCOGx T3wcvIQoQSFvNIRaQ9wbZa XfrM1exLzhAIrkUcYpUsGy YcYEv922hg0aMHKyuJHkhm ADfCGkbC0kYEodGEzwTFbq aEVdFYmhz5onWXQxq1k6wN CoRSYmuqQsv2dbOXaljcFc PQBpdPFdcYLhMODpo09jSH cftWsmcPxfLEIrh3DbwCld y9NkLuHwORyzh1NzQ74hqJ JvbCBzbGlkZXMgcnVuIGFs x66xr7xiLAWsWfO6oLHegK W5qHCdmWScg6QwrGsvXMKg b8zaOMQvut9awqrzyUNvd1 JwiD7ekhtaVBzsjCMmkrSb IPHlf2f8jUXaYZHfOZVrMH jwyUw4USTse457dq3dafZ4 dWYkHPX4SEhtTYRmXIIgiv UgZXZhbHVhdGVkXHBsYWlu XGYxXGZzMjJcbGFuZzEwMz NcaGljaFxmMVxkYmNoXGYx HGezC9rjOwXgU1NkENRhKh QiwPRaL6ivjZDuLVEdWLwp XGYxXGZzMjJcbGFuZzEwMz NcaGljaFxmMVxkYmNoXGYx ZPlfC5azYjUiM9PnNTBsKu IgIFxwbGFpblxmMVxmczIy CUfwvrihXAJjXUwsC2ghKi ZaDOLkxJggNGgvs5QfTIQy ISIxHqsupwLeJJt2tqEcXV BhclxwbGFpblxmMVxmczIy RSyvwwjbZAAqYCmpU6wnZy CkKCEjdHrwEBvld3PlOIXu XGNmMlxmczIyIEltbXVub2 kii9UdR2evkHuqyOZ5XDWn L9afdRPsvGL1BEN6fN0fYN hqliJmORPpv4IgYLEoBUIq TrP2zA1uSRU7JlDShYjwLC BsYWluXGYxXGZzMjJcbGFu ZzEwMzNcaGljaFxmMVxkYm VdDWMiTLluN3ckUmUmF4Mu ZLLoXlPfePgdIGykPCv4Ai xwbGFpblxmMVxmczIyXGxh oanzLSFmOEsuO7eoQnMyKD KruFdzNSxnr4ZiCEIrTCNs MlxmczIyIHMgTWVkaWNhbC BPUR32FMPhXADcbSsxhQ2x eECLHQJksyB0h3H2YBcfKG UcUHe3RFcpulSgTXTrlL3t CVEjPZ5oCPo0rrBkIJYrd3 MnHG4pZZHidJUeGNM8VZZm j2QuX6Svs9UcNQRrFMEoel 0ecjJnOxPHaYZqIMUnpw82 RFEbBW3pR3xqMHKaMOHxkd DcfZWym3YnXKGloEH0tZPc QF0OCjLVr80iVZGtJDJOyb FpEQTkuQexpBS6rfX3mQ4i LiBUaGUgRkRBIGhhcyBkZX Blsw5vjaFzNZNmGNFae1Xb xHYdxGMuhaApD6Nhe2ZdTJ Qhlt83SReqwMZyrq02CW9t D8Ptz8ElyM0uFXhrAQYop5 RlaNUqmGHzYESnj0CcF3md uelgUVfjmLPovI1gLLLpXO v6PUCla7JdATCkt0LaNyFw jbHlIFUjOWPnORGdaM56AG A9eVrvoDfxfdOeIS2qJGTj lcByNPLpBVGliS0lSLqxfo VwTKCmldL9d9A1DGxjEPUj grJtDlvaLTF1emNdwtW7zN VgC6zmenkbYFkdJHCqv0Ne gF9ykEJRePMli8LqoFJebF SLiTMgIK3mtaRgXQ1yWCV5 ODggKENMSUEtODgpIGFzIH W1HDckEkopMMJ4xcAmIMXz f6FtUBfoU0mkA86rrYnfxT s6hFLbcDyzsBFeaTUmKYIj gdM5a5P1ZJXrd5CtmrnbQF BsYWluXGYyXGZzMjJcbGFu ZzEwMzNcaGljaFxmMlxkYm EfNVUmUCwwR9ffYbAyKtFc DdinAKF6x7ovaNJwNJSefV N9BrTqWEHdn4zlo5UpzFOn xBNbWEjddMIvxvIokg57iZ R8jQ88BV7sHRFqSdI3MWEe qrY8Qzu6SMIxAERodONkS2 78w8gjn1msxeGebPB3oUwi YXJkXHBsYWluXGZzMjAgQk zXZ5pkEHZgZNOZKlhiS7nd QVziE8AKAncwFHOMPMrtOG J9fQ== Gross assessment was [facility] performed at ([facility], = 2777) Department of Pathology, [address] [place] [id number], Technical component was [facility] performed at ([facility], = 2778) Department of Pathology, [address] [place] [id number], Professional component [facility] was performed at ([facility], code = 2779) Department of Pathology, [address] [place] [address], [id number] 09:40:00Surgical Pathology Report Case: [id number] Authorizing Provider: Tarun Rai MD Collected: 09/30/2020 09:05 AM Ordering Location: [facility] Received: 09/30/2020 09:23 AM PERIOPERATIVE SERVICES Pathologist: Allen Velazquez MD Specimens: A) - Pleural, Right, RIGHT PLEURAL BIOPSY B) -Pleural, Right, RIGHT PLUERAL BIOPSY R/O CANCER A. PLEURA, RIGHT, BIOPSY:MODERATELY DIFFERENTIATED ADENOCARCINOMA.SEE DIAGNOSTIC COMMENT.B. PLEURA, RIGHT, BIOPSY:MODERATELY DIFFERENTIATED ADENOCARCINOMA. Signing Pathologist Direct Phone Line: [phone] signed by Allen Velazquez MD on 10/08/2020 at 9:40 AMImmunohistochemical studies performed on block A2 demonstrate the tumor cells to be positive for CK20 and CDX2. They are negative for CK7and TTF1. The immunophenotypic as well as the morphologic findings are compatible with an adenocarcinoma of colonic origin. [id number], 66396 X 2, 77263, [id number] diagnosis: Pleural effusion.A. Pleural, right B. Pleural, [...] evaluated Immunohistochemistry technical testing was performed at [facility], Pathology Laboratory where it was developed [...] clinical laboratory testing.BLOCK A2- CK7, CK20, CDX2, IWR3Ovvtos [facility], Department of Pathology, [address] [place] [address], [facility], [address] [place] [id number], [facility], [address] [place] [address], ZIOP-GLUCOSE [id number] 16:50:00 Test Item Value Reference Range Interpretation Comments POC-GLUCOSE METER 110 mg/dL 70-110 : TESTED A [employer] 6720 ([employer]) (test code = NAMITA Brantley [facility], 1538) 39581: Rn Forensic/Techni patrick ID = [id number] for JOSE ALBERTO SHEPHERD POCT-GLUCOSE [id number] 13:23:00 Test Item Value Reference Range Interpretation Comments POC-GLUCOSE METER 98 mg/dL 70-110 : TESTED A T [facility] 6720 (BEAKER) (test code = NAMITA CHEN [place], 1538) 68150: Rn Forensic/Techni patrick ID = [id number] for SAUL ER, JOSE ALBERTO RAD, CHEST, 1 VIEW, NON [id number] 12:26:00Reason for exam:->s/p ChT removalShould this be performed at the bedside?->Yes [facility] : 1960 Sex: MFINAL REPORT [...] MDReport Verified Date/Time: 10/02/2020 12:26:12 Reading Location: [facility] Radiology Reading Room XR chest 1 view portable / [id number] 12:26:00Interface, External Ris In - 10/02/2020 12:28 [...] MDReport Verified Date/Time: 10/02/2020 12:26:12 Reading Location: [facility] [id number] 09:20:00 Test Item Value Reference Range Interpretation Comments % Neutros (test code = 72 % 2816) % Lymphs (test code = 8 % 2817) % Monos (test code = 8 % 2818) % Eos (test code = 7 % 2819) % Baso (test code = 2 % 2820) % Atypical Lymphs (test 2 % 0-0 [...] MIGUEL A (test code = MIGUEL A) Rn Forensic ID - Jessenia Bowling comments: Slide comments: WBC: SEGMENTED WITH TOXIC GRANULATIONS PRESENT Lab Interpretation Abnormal (test code = 48819-4) [facility] W/PLT COUNT & AUTO [id number] 09:20:00 Test Item Value Reference Range Interpretation [...] CONCENTRATION Adequate (CELLAVISION)(BEAKER) (test code = 3438) Rn Forensic ID - Jessenia Bowling comments: Slide comments: WBC: SEGMENTED WITH TOXIC GRANULATIONS PRESENTRAD, CHEST, 1 VIEW, NON [id number] 08:45:00 Reason for exam:->s/p R VATSShould this be performed at the bedside?->Yes [facility] : 1960 Sex: MFINAL REPORT CLINICAL HISTORY: s/p R VATS TECHNIQUE: 1 view of the [facility] st. COMPARISON: 10/01/2020 IMPRESSION: The right central line is unchanged. Right hemithorax pleural-parenchymal opacity is unchanged. Left lung remains well-aerated. The cardiomediastinal silhouette is magnified by technique. Signed: Radha Cabrera Verified Date/Time: 10/02/2020 08:45:51 Reading Location: [facility] Radiology Reading Room [id number] 06:11:00 Test Item Value Reference Range Interpretation Comments Magnesium (test code = 2.2 mg/dL 1.6-2.6 07639-7) MIGUEL A (test code = MIGUEL A) Rn Forensic ID - ARGENIS Coburn Lab Interpretation (test Normal code = 10607-9) [facility] [id number] 06:11:00 Test Item Value Reference Range Interpretation Comments SODIUM (BEAKER) 139 meq/L 136-145 (test code = 381) POTASSIUM (BEAKER) 4.2 meq/L 3.5-5.1 (test code = 379) CHLORIDE (BEAKER) 104 meq/L 98-107 (test code = 382) CO2 (BEAKER) (test 27 meq/L 22-29 code = 355) BLOOD UREA NITROGEN 8 [...] S NOT APPLICABLE FOR DIALYSIS PATIEN TS. Rn Forensic ID - ARGENIS [id number] 06:11:00 Test Item Value Reference Range Interpretation Comments MAGNESIUM (BEAKER) (test code = 2.2 mg/dL 1.6-2.6 627) Rn Forensic ID - ARGENIS MPrepare Leuko-Red [id number] 23:54:00 Test Item Value Reference Range Interpretation Comments CROSSMATCH (test code = COMPATIBLE 2264) Unit ABO (test code = A Pos 7923839) UNIT NUMBER (test code = [id number] 934-0) Status (test code = RETURNED FROM ISSUE 4595513) Blood Bank Product (test RED BLOOD CELLS code = 2263) PRODUCT CODE (test code = E3974E72 933-2) [facility] [id number] 11:35:00 Test Item Value Reference Range Interpretation Comments POC-GLUCOSE METER 133 mg/dL 70-110 H : TESTED A T [facility] 6720 (BE[employer]idy) (test code = NAMITA CHEN [place], 1538) 645[address]: Rn Forensic/Techni patrick ID = [id number] for UKWU, HYGINUS ECG 12 [id number] 08:18:06Interface, External Ris In - 10/01/2020 8:18 AM CSTVentricular Rate 113 BPMAtrial Rate 113 BPMP-R Interval 178 msQRS Duration 70 msQ-T Interval 340 msQTC Calculation(Bazett) 466 msP [place] 49 degreesR [place] 15 degreesT [place] 59 degreesSinus tachycardia with frequent Premature atrial complexesNonspecific T wave abnormalityAbnormal ECGWhen compared with ECG of 30-SEP-2020 17:13,No significant changesConfirmed by MD JAYCEE, BRYANT Haley ([id number]) on 10/01/2020 8:18:03 [facility] 2020-10-01 07:42:00 Test Item Value Reference Range Interpretation Comments POC-GLUCOSE METER 116 mg/dL 70-110 H : TESTED A T [facility] 6720 (BEFishidy) (test code = NAMITA CHEN [place], 1538) 49403: Rn Forensic/Techni patrick ID = [id number] for Yoselyn Ghotra RAD, CHEST, 1 VIEW, NON [id number] 07:35:00Reason for exam:->s/p R VATSShould this be performed at the bedside?->Yes [facility] : 1960 Sex: MFINAL REPORT [...] surgical changes.Additional findings: None. Signed: Twila Escobar MDReport Verified Date/Time: 10/01/2020 07:35:22 Reading Location: [facility] Radiology Reading Room CBC W/PLT COUNT & AUTO [id number] 06:46:00 Test Item Value Reference Range Interpretation Comments WHITE BLOOD CELL COUNT (BEAKER) 11.8 K/ L 3.5-10.5 H (test code [...] CONCENTRATION Adequate (CELLAVISION)(BEAKER) (test code = 3438) Rn Forensic ID - Penny OverholtUser comments: Slide comments:BASIC [...] S NOT APPLICABLE FOR DIALYSIS PATIEN TS. Rn Forensic ID - [id number] 04:43:00 Test Item Value Reference Range Interpretation Comments MAGNESIUM (BEAKER) (test code = 2.2 mg/dL 1.6-2.6 627) Rn Forensic ID - EDASIPOCT-GLUCOSE [id number] 00:08:00 Test Item Value Reference Range Interpretation Comments POC-GLUCOSE METER 96 mg/dL 70-110 : [facility] (test code = NAMITA CHEN [place], 1538) 12585: Rn Forensic/Techni patrick ID = [id number] for STEPHEN REBOLLEDO CBC (HEMOGRAM ONLY)2020-09-30 23:13:00 Test Item Value Reference [...] 0-0 (BEAKER) (test code = 413) Troponin [id number] 18:48:00 Test Item Value Reference Range Interpretation Comments Troponin I (test code = <0.01 0-0.03 47485-6) MIGUEL A (test code = MIGUEL A) [...] BS Lab Interpretation (test Normal code = 87172-5) [facility]TRR[facility]PITALCHRISTOPHER [id number] 18:48:00 Test Item Value Reference Range Interpretation [...] failure, acidosis, acute neurological disease, and persistent tachyarrhythmia.Rn Forensic ID - [id number] 18:42:00 Test Item Value Reference Range Interpretation Comments MAGNESIUM (BEAKER) 2.3 mg/dL 1.6-2.6 Specimen slightly (test code = 627) hemolyzed Rn Forensic ID - BSBASIC METABOLIC [id number] 18:42:00 Test Item Value Reference Range Interpretation [...] S NOT APPLICABLE FOR DIALYSIS PATIEN TS. Rn Forensic ID - BSHEMOGLOBIN AND [id number] 16:53:00 Test Item Value Reference Range Interpretation Comments HEMOGLOBIN (BEAKER) (test code = 6.8 GM/DL 13.7-17.5 L 410) HEMATOCRIT (BEAKER) (test code = 24.6 % 40.1-51.0 L 411) Rn Forensic ID - 6000POCT-GLUCOSE [id number] 16:47:00 Test Item Value Reference Range Interpretation Comments POC-GLUCOSE METER 167 mg/dL 70-110 H : TESTED A T [facility] 6720 (BEAKER) (test code = [facility], 1538) 77912: Rn Forensic/Techni patrick ID = [id number] for AMADA CORONA POCT-GLUCOSE [id number] 14:04:00 Test Item Value Reference Range Interpretation Comments POC-GLUCOSE METER 95 mg/dL 70-110 : TESTED A T [facility] 6720 (BEAKER) (test code = [facility], 1538) 26076: Rn Forensic/Techni patrick ID = [id number] for JYOTHI MORALES CT, CHEST, WITHOUT [id number] 13:19:00Evaluate for residual pleural effusion, extent of disease in R chestUnlisted Reason for Exam - ClickYes and Enter Reason Below->No [facility] : 1960 Sex: [...] [place] MDReport Verified Date/Time:09/30/2020 13:19:51 Reading Location: [facility] C013X Ortho Consult Reading Room CT chest without IV [id number] 13:19:00Interface, External Ris In - 09/30/2020 1:22 [...] concerning for metastatic disease. Signed: Olga Alamo Verified Date/Time: 09/30/2020 13:19:51 Reading Location: [facility] B1 C013X OrthoConsult Reading Room [facility] HGB/HCT (H&H)-Stat [id number] 12:15:00 Test Item Value Reference Range Interpretation Comments Hemoglobin (test code = 7.6 See_Comment L [Au tomated message] 786-4) The system AudioTag generated this result transmitted ref erence range: 13.0 - 1 6.8 GM/DL. The refe rence range was not u sed to interpret this result as normal/abnor mal. Hematocrit (test code = 22.0 % 40-50 L 4544-3) Lab Interpretation (test Abnormal code = 51260-9) [facility] [id number] 12:15:00 Test Item Value Reference Range Interpretation Comments HEMOGLOBIN (BEAKER) (test code = 7.6 GM/DL 13.0-16.8 L 410) HEMATOCRIT (BEAKER) (test code = 22.0 % 40.0-50.0 L 411) [id number] 11:09:00 Test Item Value Reference Range Interpretation Comments Glucose (test code = 2345-7) 126 mg/dL 70-105 H Lab Interpretation (test code = Abnormal 14287-9) [facility]2020-[facility] 11:09:00 Test Item Value Reference Range Interpretation Comments Phosphorus (test code = 4.4 mg/dL 2.3-4.7 2777-1) MIGUEL A (test code = MIGUEL A) Rn Forensic ID - SAHRA C Lab Interpretation (test Normal code = 10735-8) [facility]Potassium2020-12-29 11:09:00 Test Item Value Reference Range Interpretation Comments Potassium (test code = 2823-3) 3.6 meq/L 3.5-5.1 Lab Interpretation (test code = Normal 23664-2) [facility]SE2020-[facility]-29 11:09:00 Test Item Value Reference Range Interpretation Comments GLUCOSE RANDOM (BEAKER) (test code 126 mg/dL 70-105 H = 652) [id number] 11:09:00 Test Item Value Reference Range Interpretation Comments MAGNESIUM (BEAKER) (test code = 1.9 mg/dL 1.6-2.6 627) Rn Forensic ID - SAHRA CBASIC METABOLIC [id number] 11:09:00 Test Item Value Reference Range Interpretation [...] S NOT APPLICABLE FOR DIALYSIS PATIEN TS. Rn Forensic ID - SAHRA [id number] 11:09:00 Test Item Value Reference Range Interpretation Comments PHOSPHORUS (BEAKER) (test code = 4.4 mg/dL 2.3-4.7 604) Rn Forensic ID - SAHRA [id number] 11:09:00 Test Item Value Reference Range Interpretation Comments POTASSIUM (BEAKER) (test code = 3.6 meq/L 3.5-5.1 379) Calcium, [id number] 10:48:00 Test Item Value Reference Range Interpretation Comments Calcium, Ion (test code = 1994-) 1.16 mmol/L 1.12-1.27 pH, Blood (test code = 59260-0) 7.35 [facility] HospitalCALCIUM, [id number] 10:48:00 Test Item Value Reference Range Interpretation Comments CALCIUM IONIZED (BEAKER) (test 1.16 mmol/L 1.12-1.27 code = 698) PH, BLOOD (BEAKER) (test code = 7.35 1810) RAD, CHEST, 1 VIEW, NON [id number] 10:43:00Reason for exam:->s/p R VATSShould this be performed at the bedside?->Yes [facility] : 1960 Sex: MFINAL REPORT RAD, CHEST, 1 VIEW, NON DEPT INDICATION: s/p R VATS MICHEAL RISON: Prior day's exam FINDINGS: Portable frontal view of the chest. IMPRESSION: Support Lines: Port-A-Cath tip overlies the SVC Lungs and pleura: Increased opacification of the right hemithorax Nopneumothorax.Heart and mediastinum: Stable contours.Additional findings: None. Signed: Twila Escobar MDReport Verified Date/Time: 09/30/2020 10:43:01 Reading Location: [facility] Radiology Reading Room PT/[id number] 10:42:00 Test Item Value Reference Interpretation Comments Range Protime (test code = 16.0 See_Comment H [Autom ated 5902-2) message] The system which generated this result transmitted reference range : 11.9 - 14.2 seconds. The reference range was not used to interpret this result as normal/abnormal . INR (test code = 1.32 See_Comment [Automated 4851-6) message] The system which generated this result transmitted reference range : <=5.90. The reference range was not used to interpret this result as normal/abnormal . PTT (test code = 33.1 See_Comment [Automated 58225-0) message] The system which generated this result transmitted reference range : 22.5 - 36.0 seconds. The reference range was not used to interpret this result as normal/abnormal . MIGUEL A (test code = Effective 02/28/2019: MIGUEL A) PT Reference Range ChangeNew: 11.9-14.2 Previous: 11.7-14.7 RECOMMENDED COUMADIN/WARFARIN INR THERAPY RANGESSTANDARD DOSE: 2.0-3.0 Includes: PROPHYLAXIS for venous thrombosis, systemic embolization; TREATMENT for venous thrombosis and/or pulmonary embolus.HIGH RISK: Target INR is 2.5-3.5 for patients wiht mechanical heart valves. Lab Interpretation Abnormal (test code = 43518-0) [facility] HospitalPT/[id number] 10:42:00 Test Item Value Reference Range Interpretation [...] (BEAKER) (test code = 413) HEMOGLOBIN AND [id number] 10:30:00 Test Item Value Reference Range Interpretation Comments HEMOGLOBIN (BEAKER) (test code = 7.1 GM/DL 13.7-17.5 L 410) HEMATOCRIT (BEAKER) (test code = 25.5 % 40.1-51.0 L 411) Glucose-Stat [id number] 09:11:00 Test Item Value Reference Range Interpretation Comments Glucose (test code = 2345-7) 101 mg/dL 70-110 Lab Interpretation (test code = Normal 68328-0) [facility]GLUCOSE-STAT [id number] 09:11:00 Test Item Value Reference Range Interpretation Comments GLUCOSE RANDOM (BEAKER) (test code 101 mg/dL 70-110 = 652) HGB/HCT (H&H) - STAT [id number] 09:11:00 Test Item Value Reference Range Interpretation Comments HEMOGLOBIN (BEAKER) (test code = 8.0 GM/DL 13.0-16.8 L 410) HEMATOCRIT (BEAKER) (test code = 24.0 % 40.0-50.0 L 411) POCT-GLUCOSE [id number] 07:38:00 Test Item Value Reference Range Interpretation Comments POC-GLUCOSE METER 116 mg/dL 70-110 H : Notified RN/MD: (ZACHARY) (test code = TESTED AT [facility] 67[address] 1538) [place] [facility], [address]: Rn Forensic/Techni patrick ID = [id number] for Charo Young POCT-GLUCOSE [id number] 05:55:00 Test Item Value Reference Range Interpretation Comments POC-GLUCOSE METER 54 mg/dL 70-110 L : TESTED A T [facility] [address] (ZACHARY) (test code = NAMITA Brantley [facility], 1538) [address]: Rn Forensic/Techni patrick ID = [id number] for SCOOBY SANDOVAL SARS-CoV2/RT-PCR ([facility])2020-09-29 17:14:00 Test Item Value Reference Range Interpretation Comments SARS-COV2/RT-PCR Negative Not Detected, (test code = Negative, See 55246-4) external report for linked test SARS-COV-2 [facility]GEN PERFORMING LAB (test code = 29596-4) MIGUEL A (test code = Negative result [...] of the Act. Fact Sheet for Healthcare Providers:https://www.[employer]/sites/default/f fidelia/product/documents/F act_Sheet_HC_Providers_L vnh_OCXP-WvL-8.pdf Fact Sheet for Healthcare Patients:https://www.WOMN/sites/default/fi les/product/documents/Fa ct_Sheet_Patients_Lyra_S ARS-CoV-2.pdf Performing Laboratory:[facility] [place] [address] [facility] ([facility])2020-09-29 17:14:00 Test Item Value Reference Range Interpretation Comments SARS-COV2/RT-PCR (test Negative Not Detected, Negative, code = 4919368) See external report for linked test SARS-COV-[address] [facility] VIRGEN (test code = 3027004) Negative result for this test determines that [...] 564(g) of the Act.Fact Sheet for Healthcare Providers:https://www.[employer]/sites/default/files/product/documents/Fact_Shee t_TZ_Iqwcfktjl_Bebp_JNWC-YhG-7.pdfFact Sheet for Healthcare Patients:https://www.[employer]/sites/default/files/product/ documents/Rhvd_Vuwxg_Fmpxaqkr_Hmcb_BOCJ-UqT-5.pdfPerforming Laboratory:[facility], [place] [address]WIK, CHEST, 2 VIEWS 2020-09-29 13:54:00Reason for exam:->Pleural effusion [J90] [facility] : 1960 Sex: [...] Maile Tapia MDReport Verified Date/Time: 09/29/2020 13:54:45 POCT-GLUCOSE [id number] 09:29:00 Test Item Value Reference Range Interpretation Comments POC-GLUCOSE METER 88 mg/dL 70-110 : TESTED A T [facility] [address] (BEAKER) (test code = NAMITA CHEN MD, 1538) [address]: Rn Forensic/Techni patrick ID = [id number] for JAMES OAKES BASIC METABOLIC [id number] 07:08:00 Test Item Value Reference Range Interpretation [...] S NOT APPLICABLE FOR DIALYSIS PATIEN TS. Rn Forensic ID - EDASICBC W/PLT COUNT & AUTO [id number] 06:44:00 Test Item Value Reference Range Interpretation [...] PERCENT (BEAKER) (test code = 2801) POCT-GLUCOSE [id number] 21:33:00 Test Item Value Reference Range Interpretation Comments POC-GLUCOSE METER 108 mg/dL 70-110 : TESTED Marleen Crooks [facility] [address] (BEAKER) (test code = NAMITA CHEN MD, 1538) [address]: Rn Forensic/Techni patrick ID = [id number] for OVIDIO LEONARD POCT-GLUCOSE [id number] 15:38:00 Test Item Value Reference Range Interpretation Comments POC-GLUCOSE METER 91 mg/dL 70-110 : TESTED A T [facility] 6720 (ZACHARY) (test code = NAMITA Brantley [facility], 1538) [address]: Rn Forensic/Techni patrick ID = [id number] for JOSE AGIA Jj FL, FLUORO, NON-SPECIFIC, UP TO 1 [id number] 13:55:00Reason for exam:- >abnormal imaging [facility] : 1960 Sex: MFluoroscopic unit utilized for a procedure performed in the OR. No interpretation was requested. Refer to the operative report for findings. Refer to PACS for patient radiation dose information.FL fluoro non-specific up to 1 [id number] 13:55:00Interface, External Ris In - 08/21/2020 5:26 PM CSTFluoroscopic unit utilized for a procedure performed in the OR. No interpretation was requested. Refer to the operative report for findings. Referto PACS for patient radiation dose information.[facility] HospitalPOCT-GLUCOSE [id number] 07:42:00 Test Item Value Reference Range Interpretation Comments POC-GLUCOSE METER 110 mg/dL 70-110 : TESTED A T [facility] 67[address] (ZACHARY) (test code = NAMITA Brantley [facility], 1538) [address]: Rn Forensic/Techni patrick ID = [id number] for ROSA BEGUM BASIC METABOLIC [id number] 07:15:00 Test Item Value Reference Range Interpretation [...] S NOT APPLICABLE FOR DIALYSIS PATIEN TS. Rn Forensic ID - PIAYA LCBC W/PLT COUNT & AUTO [id number] 06:55:00 Test Item Value Reference Range Interpretation [...] PERCENT (BEAKER) (test code = 2801) SARS-COV2/RT-PCR ([facility])2020-08-21 00:20:00 Test Item Value Reference Range Interpretation Comments SARS-COV2/RT-PCR (test Negative Not Detected, Negative, code = 9418653) See external report for linked test SARS-COV-2 PERFORMING LAB [facility] (test code = 6599185) Negative result for this test determines that [...] the Vieyra SARS-CoV-2 assay.Fact Sheet for Healthcare Providers:https://www.[employer].vieyra/grant/ WY_SRQG-BkF-2_NCE_Dkas_Ezyks_86-505488.pdfFact Sheet for Healthcare Patients:https://www.[employer].Code for [place] osito/grant/UO_OAMI-InD-9_Qwyxcss_Ugta_Ugnaz_NV_58-562526E6.pdfPerforming Laboratory:[facility], [place] [address]VP, [id number] 12:21:00Reason for exam:->ABDOMINAL PAINWhat is the patient's sedation requirement?->No Sedation [facility] : 1960 Sex: [...] Royeport Verified Date/Time: 08/20/2020 12:21:52 Reading Location: [facility] B1 C013X [facility] [id number] 12:05:00 Test Item Value Reference Range Interpretation [...] failure, acidosis, acute neurological disease, and persistent tachyarrhythmia.[id number] 11:03:00 Test Item Value Reference Range Interpretation Comments Lipase (test code = 3040-3) 26 U/L 8-78 Lab Interpretation (test code = Normal 38593-1) [facility] HospitalLactic acid, [id number] 11:03:00 Test Item Value Reference Range Interpretation Comments Lactate, Venous (test 1.60 mmol/L 0.5-2.2 Specim en markedly code = 2872) hemolyzed Lab Interpretation (test Normal code = 92440-2) [facility] HospitalCOMPREHENSIVE METABOLIC [id number] 11:03:00 Test Item Value Reference Range Interpretation [...] S NOT APPLICABLE FOR DIALYSIS PATIEN TS. [id number] 11:03:00 Test Item Value Reference Range Interpretation Comments LIPASE (BEAKER) (test code = 749) 26 U/L 8-78 LACTIC ACID, [id number] 11:03:00 Test Item Value Reference Range Interpretation Comments LACTATE BLOOD VENOUS 1.60 mmol/L 0.50-2.20 Specime n markedly (2) (BEAKER) (test hemolyzed code = 2872) Urinalysis w/Microscopic + Reflex to [id number] 10:25:00 Test Item Value Reference Range Interpretation Comments Color, UA (test code = Yellow 5778-6) Clarity, UA (test code Clear = 5767-9) Specific [place], UA 1.020 1.005-1.030 (test code = 5811-5) pH, UA (test code = 6.0 5.0-9.0 5803-2) Protein, UA (test code Negative Negative = 58294-4) Glucose, UA (test code Negative Negative = 365) Ketones, UA (test code Negative Negative = 2514-8) Bilirubin, UA (test Negative Negative code = 17261-8) Blood, UA (test code = Trace Negative A 26061-3) Nitrite, UA (test code Negative Negative = 5802-4) Leukocytes, UA (test Negative Negative code = 5799-2) Urobilinogen, UA (test 0.2 mg/dL 0.2-1 code = 61026-8) Bacteria, UA (test code Occasional = 05262-8) RBC, UA (test code = <5 See_Comment [Autom ated message] 799-7) The system AudioTag generated this result transmit murphy reference range : /HPF. The refer ence range was not u sed to interpret th is result as normal/abnormal . WBC, UA (test code = <5 See_Comment [Autom ated message] 22993-6) The system AudioTag generated this result transmit murphy reference range : /HPF. The refer ence range was not u sed to interpret th is result as normal/abnormal . Specimen Source (test code = 2795) Lab Interpretation Abnormal (test code = 15073-4) [facility] HospitalURINALYSIS W/ REFLEX URINE [id number] 10:25:00 Test Item Value Reference Range Interpretation [...] = 2795) CBC W/PLT COUNT & AUTO [id number] 10:20:00 Test Item Value Reference Range Interpretation [...] 0-1 PERCENT (BEAKER) (test code = 2801) ECG/EKG [id number] 09:50:55Wojciech Mcdermott MD 08/20/2020 10:34 AMECG/EKG Interpretation Date/Time: 08/20/2020 10:34 AMPerformed by: Wojciech Mcdermott MDAuthorized by: Wojciech Mcdermott MD The ECG was interpreted by ED physician. Comments: Sinus with PACs, rate 83, pr 152, qrs 82, qtc 465, normal axis, no sig dayanara/std, twi inferolaterallyCHI [facility] LET-[id number] 00:00:00Ordered by an unspecified provider.[facility] CenterANG, REMOVAL OF INDWELLING TUNNELED PLEURAL CATH W/[id number] 16:22:00Reason for Exam:->Pleur-X no longer draining, needs [...] no images were obtained. Signed: Lalita Goodman Verified Date/Time: 06/24/2020 16:22:21 Reading Location: [place] [address] Angio Body Reading Room IR Removal Indwelling Tunneled Pleural Cath w/[id number] 16:22:00Interface, External Ris In - 06/24/2020 4:24 [...] no images were obtained. Signed: Lalita Goodman Verified Date/Time: 06/24/2020 16:22:21 Reading Location: [place] [address] Angio Body Reading Room [facility] HospitalRAD, CHEST, 1 VIEW, NON [id number] 12:14:00 Reason for exam:->pleural drain removedShould this [...] no significant interval change. Signed: Yaron Abebe eport Verified Date/Time: 06/16/2020 12:14:55 Reading Location: [facility] Radiology Reading Room PROTHROMBIN TIME/[id number] 08:47:00 Test Item Value Reference Range Interpretation [...] INR is2.5-3.5 for patients wiht mechanical heart valves.[id number] 08:47:00 Test Item Value Reference Range Interpretation Comments PARTIAL THROMBOPLASTIN TIME 29.4 seconds 22.5-36.0 (BEAKER) (test code = 760) CBC W/PLT COUNT & AUTO [id number] 08:39:00 Test Item Value Reference Range Interpretation [...] code = 2801) CT, CHEST, WITH IV [id number] 10:54:00Unlisted Reason for Exam - Click Yes [...] Rae Verified Date/Time: 06/05/2020 10:54:37 Reading Location: [address] Body Reading Room CT, [id number] 10:54:00Unlisted Reason for Exam - Click Yes [...] Rae Verified Date/Time: 06/05/2020 10:54:37 Reading Location: [facility] B1 C013Y CT Body Reading Room RAD, CHEST, 2 VIEWS 2020-05-12 15:35:00Reason for Exam:->Colon cancer metastasized to multiple sitesFINAL REPORT EXAM: RAD, CHEST, 2 VIEWSDATE: 05/12/2020 1:30 PM INDICATION: Colon cancer metastasized to multiple sitesCOMPARISON: Chest x-ray, 04/22/2020; chest CT, 04/22/2020 FINDINGS:Lines and tubes: Stable appearance of right chest port with IJ catheter extending to lower SVC.Stable tunneled pleural drainage catheter at the right base Heart size normal. Again noted is opacification of the lower right hemithorax likely representing combined pleural effusion and atelectasis. Underlying mass or pleural thickening not excluded. The left lung is expanded and clear. No pneumothorax. Upper abdomen unremarkable. No acute bony abnormality. IMPRESSION:Stable appearance of the chestwith opacification of the lower right hemithorax compatible with atelectasis, pleural thickening andpleural fluid. Signed: Strax, Jermaine MDReport Verified Date/Time: 05/12/2020 15:35:02 Reading Location: [facility] Reading Room [address] [place] [address] POCT-GLUCOSE [id number] 11:41:00 Test Item Value Reference Range Interpretation Comments POC-GLUCOSE METER 173 mg/dL 70-110 H : TESTED A T [facility] 6720 (BEAKER) (test code = NAMITA Brantley [facility], 1538) [address]: Rn Forensic/Techni patrick ID = [id number] for GISELL WASSERMAN POCT-GLUCOSE [id number] 09:15:00 Test Item Value Reference Range Interpretation Comments POC-GLUCOSE METER 149 mg/dL 70-110 H : TESTED A T [facility] 6720 (BEAKER) (test code = NAMITA Brantley [facility], 1538) [address]: Rn Forensic/Techni patrick ID = [id number] for CHARO MCDANIEL [id number] 06:46:00 Test Item Value Reference Range Interpretation Comments PHOSPHORUS (BEAKER) (test code = 3.5 mg/dL 2.3-4.7 604) Rn Forensic ID - ODELL [id number] 06:46:00 Test Item Value Reference Range Interpretation Comments MAGNESIUM (BEAKER) (test code = 2.1 mg/dL 1.6-2.6 627) Rn Forensic ID - ODELL WBASIC METABOLIC [id number] 06:46:00 Test Item Value Reference Range Interpretation [...] S NOT APPLICABLE FOR DIALYSIS PATIEN TS. Rn Forensic ID - ODELL WCBC (HEMOGRAM ONLY)2020-04-28 05:50:00 Test Item Value [...] = No growth in 5 days 6463-4) [facility] HospitalBLOOD [id number] 00:00:00 Test Item Value Reference Range Interpretation Comments CULTURE (BEAKER) (test No growth in 5 days code = 1095) BLOOD [id number] 00:00:00 Test Item Value Reference Range Interpretation Comments CULTURE (BEAKER) (test No growth in 5 days code = 1095) POCT-GLUCOSE [id number] 21:44:00 Test Item Value Reference Range Interpretation Comments POC-GLUCOSE METER 182 mg/dL 70-110 H : TESTED A T [facility] 6720 (BEAKER) (test code [facility], = 1538) 715[address]: Rn Forensic/Techni patrick ID = [id number] for DAGOBERTO MICHEL POCT-GLUCOSE [id number] 17:07:00 Test Item Value Reference Range Interpretation Comments POC-GLUCOSE METER 159 mg/dL 70-110 H : TESTED A T [facility] 6720 (BEAKER) (test code = [facility], 1538) [address]: Rn Forensic/Techni patrick ID = [id number] for ELLIOTT AILYN GAMING POCT-GLUCOSE [id number] 11:28:00 Test Item Value Reference Range Interpretation Comments POC-GLUCOSE METER 191 mg/dL 70-110 H : TESTED A T [facility] 6720 (BEAKER) (test code = [facility], 1538) 53126: Rn Forensic/Techni patrick ID = [id number] for ELLIOTT AILYN GAMING BASIC METABOLIC [id number] 10:05:00 Test Item Value Reference Range Interpretation [...] S NOT APPLICABLE FOR DIALYSIS PATIEN TS. Rn Forensic ID - JESSENIA FPOCT-GLUCOSE [id number] 08:09:00 Test Item Value Reference Range Interpretation Comments POC-GLUCOSE METER 158 mg/dL 70-110 H : TESTED A T [facility] 6720 (BEAKER) (test code = [facility], 1538) 55734: Rn Forensic/Techni patrick ID = [id number] for AILYN ACEVEDO [id number] 07:24:00 Test Item Value Reference Range Interpretation Comments PHOSPHORUS (BEAKER) (test code = 3.5 mg/dL 2.3-4.7 604) Rn Forensic ID - JESSENIA [id number] 07:24:00 Test Item Value Reference Range Interpretation Comments MAGNESIUM (BEAKER) (test code = 1.9 mg/dL 1.6-2.6 627) Rn Forensic ID - JESSENIA FPOCT-GLUCOSE [id number] 21:21:00 Test Item Value Reference Range Interpretation Comments POC-GLUCOSE METER 193 mg/dL 70-110 H : TESTED A T [facility] 6720 (BEAKER) (test code = [facility], 1538) 57206: Rn Forensic/Techni patrick ID = [id number] for CRYSTAL STONEA POCT-GLUCOSE [id number] 18:12:00 Test Item Value Reference Range Interpretation Comments POC-GLUCOSE METER 121 mg/dL 70-110 H : TESTED A T [facility] 6720 (BEAKER) (test code = [facility], 153) 90052: Rn Forensic/Techni patrick ID = [id number] for AR GUETA, LATHA POCT-GLUCOSE [id number] 13:00:00 Test Item Value Reference Range Interpretation Comments POC-GLUCOSE METER 163 mg/dL 70-110 H : TESTED A T [facility] 6720 (BEAKER) (test code = [facility], 1538) 37436: Rn Forensic/Techni patrick ID = [id number] for AR GUETA, LATHA POCT-GLUCOSE [id number] 08:48:00 Test Item Value Reference Range Interpretation Comments POC-GLUCOSE METER 142 mg/dL 70-110 H : TESTED A T [facility] 6720 (BEAKER) (test code = [facility], 1538) 12584: Rn Forensic/Techni patrick ID = [id number] for AR GUETA, LATHA Digoxin [id number] 07:10:00 Test Item Value Reference Range Interpretation Comments Digoxin Lvl (test code = 1.14 ng/mL 0.8-2 06112-2) MIGUEL A (test code = MIGUEL A) Rn Forensic ID - EDASI Lab Interpretation (test Normal code = 08404-9) [facility] HospitalDIGOXIN [id number] 07:10:00 Test Item Value Reference Range Interpretation Comments DIGOXIN LEVEL (BEAKER) (test code 1.14 ng/mL 0.80-2.00 = 669) Rn Forensic ID - [id number] 06:55:00 Test Item Value Reference Range Interpretation Comments MAGNESIUM (BEAKER) 1.9 mg/dL 1.6-2.6 Specimen moderately (test code = 627) hemolyzed Rn Forensic ID - [id number] 06:55:00 Test Item Value Reference Range Interpretation Comments PHOSPHORUS (BEAKER) 3.4 mg/dL 2.3-4.7 Specimen moderately (test code = 604) hemolyzed Rn Forensic ID - EDASIPOCT-GLUCOSE [id number] 22:24:00 Test Item Value Reference Range Interpretation Comments POC-GLUCOSE METER 133 mg/dL 70-110 H : TESTED A T [facility] 6720 ([employer]) (test code = [facility], 153) [address]: Rn Forensic/Techni patrick ID = [id number] for DI [place], ISSAIRIS POCT-GLUCOSE [id number] 16:41:00 Test Item Value Reference Range Interpretation Comments POC-GLUCOSE METER 151 mg/dL 70-110 H : TESTED A T [facility] 6720 ([employer]) (test code = [facility], 153) 39142: Rn Forensic/Techni patrick ID = [id number] for LATI N, GISELL POCT-GLUCOSE [id number] 13:09:00 Test Item Value Reference Range Interpretation Comments POC-GLUCOSE METER 141 mg/dL 70-110 H : TESTED A T [facility] 6720 (ReC[employer]AKER) (test code = [facility], 153) 47976: Rn Forensic/Techni patrick ID = [id number] for LATI N, GISELL Heparin Assay - Low Molecular [id number] 11:52:00 Test Item Value Reference Range Interpretation [...] 1.0-2.0 units/mL once daily enoxaparin Ref: CHEST 2012;141:x12m-u83lTml ase draw 4 hours after enoxaparin dose for accurate level. Lab Interpretation (test Normal code = 06112-4) [facility] HospitalHEPARIN ASSAY - LOW MOLECULAR [id number] 11:52:00 Test Item Value Reference Range Interpretation Comments LOVENOX-ANTI 10A (BEAKER) (test 1.05 u/ml 0.60-2.00 code = 1605) Anti-Factor 10-A Level (Heparin Assay for Low Molecular Weight Heparin)Monitoring Guidelines: Blood samples should be obtained 4 hours post subcutaneous injection (time of Peak level) Therapeutic Peak Levels: 0.6-1.0 units/mL twice daily enoxaparin 1.0-2.0 units/mL once daily enoxaparinRef: CHEST 2012;141:[id number]-[id number] draw 4 hours after enoxaparin dose for accurate level.POCT-GLUCOSE [id number] 09:01:00 Test Item Value Reference Range Interpretation Comments POC-GLUCOSE METER 150 mg/dL 70-110 H : TESTED A T [facility] 6720 (BEAKER) (test code = NAMITA CHEN MD, 1538) 29771: Rn Forensic/Techni patrick ID = [id number] for GISELL WASSERMAN [id number] 06:44:00 Test Item Value Reference Range Interpretation Comments PHOSPHORUS (BEAKER) (test code = 3.7 mg/dL 2.3-4.7 604) Rn Forensic ID - [id number] 06:44:00 Test Item Value Reference Range Interpretation Comments MAGNESIUM (BEAKER) (test code = 2.0 mg/dL 1.6-2.6 627) Rn Forensic ID - EDASIBASIC METABOLIC [id number] 06:44:00 Test Item Value Reference Range Interpretation [...] S NOT APPLICABLE FOR DIALYSIS PATIEN TS. Rn Forensic ID - EDASICBC W/PLT COUNT & AUTO [id number] 06:05:00 Test Item Value Reference Range Interpretation [...] PERCENT (BEAKER) (test code = 2801) POCT-GLUCOSE [id number] 05:34:00 Test Item Value Reference Range Interpretation Comments POC-GLUCOSE METER 130 mg/dL 70-110 H : TESTED A T [facility] 6720 (BEAKER) (test code = NAMITA Brantley [facility], 1538) 20745: Rn Forensic/Techni patrick ID = [id number] for NG AMEYAKYA Hicks POCT-GLUCOSE [id number] 23:36:00 Test Item Value Reference Range Interpretation Comments POC-GLUCOSE METER 142 mg/dL 70-110 H : TESTED A T [facility] 6720 (BEAKER) (test code = [facility] Fercho [facility], 1538) 72631: Rn Forensic/Techni patrick ID = [id number] for NG AMEYA, KYA Hemoglobin [id number] 12:08:00 Test Item Value Reference Range Interpretation Comments Hemoglobin A1C (test code = 4548-4) 6.9 % 4.3-6.1 H Lab Interpretation (test code = Abnormal 55737-0) [facility]MO[facility] [id number] 12:08:00 Test Item Value Reference Range Interpretation Comments HEMOGLOBIN A1C (BEAKER) (test code = 6.9 % 4.3-6.1 H 368) POCT-GLUCOSE [id number] 11:11:00 Test Item Value Reference Range Interpretation Comments POC-GLUCOSE METER 127 mg/dL 70-110 H : TESTED A T [facility] 6720 (BEAKER) (test code = [facility], 1538) 47371: Rn Forensic/Techni patrick ID = [id number] for GR ANTRONIT TSH/Free T4 If [id number] 08:33:00 Test Item Value Reference Range Interpretation Comments TSH (test code = 0.685 See_Comment [Automated 95253-6) message] The system which generated this result transmit murphy reference range : 0.350 - 4.940 uIU/mL. The reference range was not used to interpret this result as normal/abnormal . MIGUEL A (test code = MIGUEL A) Rn Forensic ID - MORENO Lab Interpretation Normal (test code = 53102-3) [facility]TSH/FREE T4 IF [id number] 08:33:00 Test Item Value Reference Range Interpretation Comments THYROID STIMULATING HORMONE 0.685 uIU/mL 0.350-4.940 (BEAKER) (test code = 772) Rn Forensic ID - MORENOPOCT-GLUCOSE [id number] 06:04:00 Test Item Value Reference Range Interpretation Comments POC-GLUCOSE METER 114 mg/dL 70-110 H : TESTED A T [facility] 6720 (BEAKER) (test code = [facility], 1538) 12510: Rn Forensic/Techni patrick ID = [id number] for MO RRIS, CONNER [id number] 04:13:00 Test Item Value Reference Range Interpretation Comments PHOSPHORUS (BEAKER) (test code = 3.8 mg/dL 2.3-4.7 604) Rn Forensic ID - ARLYN [id number] 04:13:00 Test Item Value Reference Range Interpretation Comments MAGNESIUM (BEAKER) (test code = 1.9 mg/dL 1.6-2.6 627) Rn Forensic ID - ARLYN LBASIC METABOLIC [id number] 04:13:00 Test Item Value Reference Range Interpretation [...] S NOT APPLICABLE FOR DIALYSIS PATIEN TS. Rn Forensic ID - PIAYA LCBC W/PLT COUNT & AUTO [id number] 03:28:00 Test Item Value Reference Range Interpretation [...] PERCENT (BEAKER) (test code = 2801) POCT-GLUCOSE [id number] 02:26:00 Test Item Value Reference Range Interpretation Comments POC-GLUCOSE METER 119 mg/dL 70-110 H : TESTED A T [facility] 6720 (BEAKER) (test code = NAMITA Brantley [facility], 1538) 87584: Rn Forensic/Techni patrick ID = [id number] for CONNER MOON Venous doppler legs [id number] 00:12:14Ejection FractionSLEH ECHO HEARTLAB MKCKESSON CPACSRight Impression1. 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Rn Forensic ID - BSB-TYPE NATRIURETIC FACTOR (BNP)2020-04-23 20:57:00 Test Item Value Reference Range Interpretation Comments B-TYPE NATRIURETIC PEPTIDE (KEVINAKER) 85 pg/mL 0-100 (test code = 700) Rn Forensic ID - BSHepatic function [id number] 20:50:00 Test Item Value Reference Range Interpretation Comments Protein, Total (test 7.8 See_Comment Specime n code = 2885-2) moderately hemolyzed [Automated message] The system which generated this result transmit murphy reference range : 6.0 - 8.3 gm/dL . The reference range was not u sed to interpret th is result as normal/abnormal . Albumin (test code = 3.5 g/dL 3.5-5 Specime n 16002-4) moderately hemolyzed Total Bilirubin (test 0.5 mg/dL 0.2-1.2 Specim en code = 1974-2) moderately hemolyzed Bilirubin, Direct 0.2 mg/dL 0.1-0.5 Specimen (test code = 1967-7) moderat jose hemolyzed Alkaline Phosphatase 74 U/L 40-150 (test code = 6768-6) AST (test code = 29 U/L 5-34 Specimen 1920-8) moderately hemolyzed ALT (test code = 14 U/L 6-55 Specimen 1742-6) moderately hemolyzed MIGUEL A (test code = MIGUEL A) Rn Forensic ID - BS Lab Interpretation Normal (test code = 15842-6) [facility] HospitalHEPATIC FUNCTION [id number] 20:50:00 Test Item Value Reference Range Interpretation [...] Specimen moderately (test code = 347) hemolyzed Rn Forensic ID - BSPOCT-GLUCOSE [id number] 17:04:00 Test Item Value Reference Range Interpretation Comments POC-GLUCOSE METER 99 mg/dL 70-110 : [facility] (test code = NAMITA CHEN [place], 1538) 56930: Rn Forensic/Techni patrick ID = [id number] for Ivett Barrera (contract) [id number] 11:19:00 Test Item Value Reference Range Interpretation [...] INR is2.5-3.5 for patients wiht mechanical heart valves.[id number] 10:20:00 Test Item Value Reference Range Interpretation Comments Procalcitonin (test <0.05 See_Comment [Automa murphy code = 43573-2) message] The system which generated this result transmit murphy reference range : <0.05 ng/mL. Th e reference range was not used to interpret this result as normal/abnormal . MIGUEL A (test code = MIGUEL A) SEPSIS RISK (ng/mL)Low: 0.05-0.50Inter mediate: 0.51-2.00High: >=2.01 Lab Interpretation Normal (test code = 79634-0) [facility] HospitalPROCALCITONIN2020-07-22 10:20:00 Test Item Value Reference Range Interpretation Comments PROCALCITONIN (BEAKER) (test code = < ng/mL <0.05 3036) SEPSIS RISK (ng/mL)Low: 0.05-0.50Intermediate: 0.51-2.00High: >=2.01POCT-GLUCOSE [id number] 09:26:00 Test Item Value Reference Range Interpretation Comments POC-GLUCOSE METER 131 mg/dL 70-110 H : TESTED A T [facility] 6720 (BEAKER) (test code = NAMITA Brantley [facility], 1538) 65887: Rn Forensic/Techni patrick ID = [id number] for Anjali Zavala 2D Echo W/Doppler(CW/PW/Color)2020-04-23 08:15:31Ejection FractionSLEH ECHO HEARTLAB MKCKESSON CPACSInterface, External Ris In - 04/23/2020 8:15 AM C DTTransthoracic Echocardiography Report (TTE) Demographics Patient Name LISSETH GONZALEZ Date of Study 04/23/2020 Gender Male Visit Number [id number] Race Black Room Number [id number] Number Date of 1960 Referring Physician Constance Horowitz Age 59 year(s) 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 Tr Garnett HAYLEE Interpreting Mario Martinez MD Physician Fellow WILDER Leong Procedure Type of Study TTE procedure:2DECHO W DOPPLER(CW /PW/COLOR) (STAT) Indications:Dyspnea/SOB.Clinical HistoryObesity, DM, Pneumonia, HTN, AsthmaHGB 11.4HCT 37.1 %Contrast Medium: Definity.Height: 71 inches Weight: 146.06 kg (322 lbs) BSA: 2.58 m^2 BMI:44.91kg/m^2HR: 119 bpm BP: 136/86 mmHg Summary Technically [...] CO: 6 l/min LVOT CI: 2.33 l/min/m^2[facility] CenterAPTT2020-07-22 05:48:00 Test Item Value Reference Range Interpretation Comments PARTIAL THROMBOPLASTIN TIME 33.4 seconds 22.5-36.0 (KEVINJUAN LUIS) (test code = 760) 6 hours after starting heparin infusion and as indicated per sliding scale [id number] 05:35:00 Test Item Value Reference Range Interpretation Comments PHOSPHORUS (ZACHARY) (test code = 3.6 mg/dL 2.3-4.7 604) Rn Forensic ID - [id number] 05:35:00 Test Item Value Reference Range Interpretation Comments MAGNESIUM (BEAKER) (test code = 1.9 mg/dL 1.6-2.6 627) Rn Forensic ID - EDASIBASIC METABOLIC [id number] 05:35:00 Test Item Value Reference Range Interpretation [...] S NOT APPLICABLE FOR DIALYSIS PATIEN TS. Rn Forensic ID - EDASICBC W/PLT COUNT & AUTO [id number] 05:17:00 Test Item Value Reference Range Interpretation [...] (BEAKER) (test code = 2801) Blood gas, [id number] 02:57:00 Test Item Value Reference Range Interpretation Comments pH, Arterial (test code 7.44 7.35-7.45 = 2744-1) pCO2, Arterial (test 36 See_Comment [Autom ated code = 2019-8) message] The system which generated this result transmitted reference range : 35 - 45 mmHg. The reference range was not used to interpret this result as normal/abnormal . pO2, Arterial (test 108 See_Comment H [Automa murphy code = 2703-7) message] The system which generated this result transmitted reference range : 80 - 90 mmHg. The reference range was not used to interpret this result as normal/abnormal . O2 Sat, Arterial (test 98.1 % 96-97 H code = 2708-6) HCO3, Arterial (test 24 mmol/L 21-29 code = 1960-4) Base Excess, Arterial -0.1 mmol/L -2-3 (test code = 1925-7) Patient Temperature 36.8 C (test code = 8310-5) FIO2 (test code = 1819) 28 % Lab Interpretation Abnormal (test code = 53959-7) [facility] HospitalBLOOD GAS, [id number] 02:57:00 Test Item Value Reference Range Interpretation Comments PH ARTERIAL (BEAKER) (test code = 7.44 7.35-7.45 383) PCO2 ARTERIAL (BEAKER) (test code 36 mmHg 35-45 = 384) PO2 ARTERIAL (BEAKER) (test code 108 mmHg 80-90 H = 385) O2 SATURATION ARTERIAL (BEAKER) 98.1 % 96.0-97.0 H (test code = 386) HCO3 ARTERIAL (BEAKER) (test code 24 mmol/L 21-29 = 388) BASE EXCESS ARTERIAL (BEAKER) -0.1 mmol/L -2.0-3.0 (test code = 387) PATIENT TEMPERATURE (BEAKER) 36.8 C (test code = 1818) FIO2 (BEAKER) (test code = 1819) 28.0 % TROPONIN [id number] 23:01:00 Test Item Value Reference Range Interpretation [...] failure, acidosis, acute neurological disease, and persistent tachyarrhythmia.Rn Forensic ID - BSLACTIC ACID, VENOUS 2020-04-22 22:49:00 Test Item Value Reference Range Interpretation Comments LACTATE BLOOD VENOUS (2) (BEAKER) 1.17 mmol/L 0.50-2.20 (test code = 2872) Rn Forensic ID - [id number] 22:49:00 Test Item Value Reference Range Interpretation [...] H (BEAKER) (test code = 413) SARS-COV2/RT-PCR ([facility])2020-04-22 22:33:00 Test Item Value Reference Range Interpretation Comments SARS-COV2/RT-PCR (test code Negative Not Detected, Negative, = 5061705) See external report for linked test SARS-COV-[address] [facility] (test code = 6874973) Negative results do not preclude SARS-CoV-2 infection [...] of the Act.Fact Sheet for Healthcare Pro viders:https://www.Prevoty/Documents/Xpert%20Xpress%20SARS%20CoV-2/Fact%20Sh eets/302-3802%91PTRQ-YPW-8%20HEALTHCARE%20PROVIDERS%20FACT%20SHEET.pdfFact Sheet for Healthcare Patients:https://www.Expert360/Documents/Xpert%20Xpress%20SARS%20CoV-2/Fact%20Sheets/302-3801%20SARS-COV -2%20PATIENT%20FACT%20SHEET.pdfPerforming Laboratory:[address], [place] [address]YX, CHEST WITH IV CONTRAST- PE TEST [id number] 21:52:00Reason for exam:->SHORTNESS OF BREATHWhat is the [...] MDReport Verified Date/Time: 04/22/2020 21:52:23 Reading Location: [address] Transitional Reading Room CT chest PE test [id number] 21:52:00Interface, External Ris In - 04/22/2020 9:54 [...] MDReport Verified Date/Time: 04/22/2020 21:52:23 Reading Location: [address] Transitional Reading [facility]CR[facility] [id number] 20:42:13Bijal Goldberg MD 04/22/2020 10:47 PMCritical CarePerformed by: Bijal Goldberg MDAuthorized by: Bijal Goldberg MD Total critical care time: 30 minutesCritical [...] of radiographic studies and re-evaluation of patient's condition.[facility] HospitalD-dimer, [id number] 20:32:00 Test Item Value Reference Range Interpretation Comments D-Dimer, Quant (test 19.48 See_Comment H [Autom ated code = 48543-0) message] The system which generated this result transmitted reference range : <0.50 MG/L FEU. The reference range was not used to interpr et this result as normal/abnormal . MIGUEL A (test code = MIGUEL A) [...] thrombosis is within 95-100% range. Lab Interpretation Abnormal (test code = 86171-8) [facility] HospitalB-TYPE NATRIURETIC FACTOR (BNP)2020-04-22 20:32:00 Test Item Value Reference Range Interpretation Comments B-TYPE NATRIURETIC PEPTIDE (BEAKER) 136 pg/mL 0-100 H (test code = 700) Rn Forensic ID - GAV-KYEKY3210-03-21 20:32:00 Test Item Value Reference Range Interpretation [...] of thrombosis is within 95-100% range. TROPONIN [id number] 20:31:00 Test Item Value Reference Range Interpretation [...] failure, acidosis, acute neurological disease, and persistent tachyarrhythmia.Rn Forensic ID - CDPBASIC METABOLIC PANEL 2020-04-22 20:24:00 [...] S NOT APPLICABLE FOR DIALYSIS PATIEN TS. Rn Forensic ID - CDPLACTIC ACID, [id number] 20:21:00 Test Item Value Reference Range Interpretation Comments LACTATE BLOOD VENOUS 1.18 mmol/L 0.50-2.20 Specime n slightly (2) (BEAKER) (test hemolyzed code = 5858) Rn Forensic ID - [id number] 20:16:00 Test Item Value Reference Range Interpretation [...] mechanical heart valves.CBC W/PLT COUNT & AUTO [id number] 20:16:00 Test Item Value Reference Range Interpretation [...] = 2801) RAD, CHEST, 1 VIEW, NON [id number] 19:27:00Reason for exam:->SHORTNESS OF BREATHShould this be performed at the bedside?->YesFINAL REPORT TECHNIQUE: Frontal view of the chest. INDICATION: Shortness of breath. COMPARISON: 10/27/2019. FINDINGS: LINES/TUBES: Right IJ port is unchanged with coiling of the catheter over the right supraclavicular region.LUNGS: Small right-sided pleural effusion and basilar consolidation remain unchanged. Left lung is clear.. No pneumothorax. HEART AND MEDIASTINUM: The cardiomediastinal silhouette is stable. SOFT TISSUES AND BONES: Unremarkable. IMPRESSION:Unchanged right basilar effusion and consolidation.. Signed: Olga Alamo MDReport Verified Date/Time: 04/22/2020 19:27:50 Reading Location: [address] Transitional Reading Room ANG, PERC TUNNELED INTRAPERITONEAL CATH, ALL [id number] 14:28:00Reason for Exam:->J90 FINAL REPORT Tunneled right pleural catheter insertion, 04/07/2020. History: Recurrent malignant pleural effusion. Modality:Fluoroscopy. Sedation: Versed 1.5 mg and fentanyl 100 mcg was given intravenously for conscious sedation. Vital signs were monitored throughout the procedure by a nurse, and remained stable. Physician intra-service time was 40 minutes. Telephone Information Supervisor: Nelida. Dedicated Truck Driver: Nichol. Approach: Right lateral chest. Estimated blood [...] lateral chest wall by blunt dissection. A Matthews Pleurex catheter was brought through the tunnel. [...] Spot radiograph of the chest demonstrates the Matthews Pleurex catheter to lie in the expected position with its tip overlying the right midlung. Final x-ray demonstrates significant decrease in right pleural effusion without evidence of pneumothorax. Impression: Successful, uncomplicated placement of a right Matthews Pleurex tunneled catheter using fluoroscopic guidance and conscious sedation. Signed: Brock Bruno MDReport Verified Date/Time: 04/08/2020 14:28:27 Reading Location: [facility] P048 Angio Body Reading Room ANG INTRAPERITONEAL PERMANENT [id number] 14:28:00 Interface, External Ris In - 04/08/2020 2:30 PM CDTFINAL REPORT Tunneled right pleural catheter insertion, 04/07/2020. History: Recurrent malignant pleural effusion. Modality:Fluoroscopy. Sedation: Versed 1.5 mg and fentanyl 100 mcg was given intravenously for conscious sedation. Vital signs were monitored throughout the procedure by a nurse, and remained stable. Physician intra- service time was 40 minutes. Telephone Information Supervisor: Nelida. Dedicated Truck Driver: Nichol. Approach: Right lateral chest. Estimated blood [...] Spot radiograph of the chest demonstrates the Matthews Pleurex catheter to lie in the expected position with its tip overlying the right midlung. Final x-ray demonstrates significant decrease in right pleural effusion without evidence of pneumothorax. Impression: Successful, uncomplicated placement of a right Matthews Pleurex tunneled catheter using fluoroscopic guidance and conscious sedation. Signed: Brock Bruno MDReport Verified Date/Time: 04/08/2020 14:28:27 Reading Location: [place] [address] Angio Body Reading Room [facility] W/PLT COUNT & AUTO [id number] 07:37:00 Test Item Value Reference Range Interpretation [...] 0-1 PERCENT (BEAKER) (test code = 2801) [id number] 07:16:00 Test Item Value Reference Range Interpretation Comments PARTIAL THROMBOPLASTIN TIME 26.5 seconds 22.5-36.0 (BEAKER) (test code = 760) PROTHROMBIN TIME/[id number] 07:15:00 Test Item Value Reference Range Interpretation [...] is2.5-3.5 for patients wiht mechanical heart valves.CT, [id number] 08:47:00FINAL REPORT CT of the chest, abdomen [...] adrenal mass. Signed: Stefanie Royeport Verified Date/Time: 03/13/2020 08:47:59 Reading Location: [facility] C013X [facility] Room CT, CHEST, WITH IV [id number] 08:47:00FINAL REPORT CT of the chest, abdomen [...] MDReport Verified Date/Time: 03/13/2020 08:47:59 Reading Location: [facility] C013X Ortho Consult Reading Room CT, CHEST, WITH IV [id number] 10:57:00FINAL REPORT CT of the chest, abdomen [...] cm mass. Signed: Stefanie Royeport Verified Date/Time: 01/18/2020 10:57:00 Reading Location: [address] Ortho Consult Reading Room CT, [id number] 10:57:00FINAL REPORT CT of the chest, abdomen [...] cm mass. Signed: Stefanie Royeport Verified Date/Time: 01/18/2020 10:57:00 Reading Location: [address] Ortho Consult Reading Room D-[id number] 08:12:00 Test Item Value Reference Range Interpretation Comments POC-Creatinine (test 0.9 mg/dL 0.6-1.3 : TESTE D AT [facility] 7200 code = 1859) [facility] 7703 0: Rn Forensic/Techni patrick ID = [id number] for RADHA GLORIA MARY POC-EGFR (test code 105 mL/min/1.73M2 = 1860) [facility] HospitalPOCT-[id number] 08:12:00 Test Item Value Reference Range Interpretation Comments POC-CREATININE 0.9 mg/dL 0.6-1.3 : TESTED AT [facility] (test 7200 [facility] code = 1859) [facility] 7 7030: Rn Forensic/Techni patrick ID = [id number] for ASHLEY GARNETT ICA POC-EGFR 105 mL/min/1.73M2 (BEAKER) (test code = 1860) [id number] 16:03:00Medical Cytology Report Case: [id number] Authorizing Provider: Nima Carranza MD Collected: 10/27/2019 1635 Ordering Location: [address] Received: 10/29/2019 1009 Service Pathologist: Charo Brar MD Specimen: Pleural, Right RIGHT PLEURAL FLUID (CYTOSPINS AND CELL BLOCK): - VERY RARE ATYPICAL CELLS PRESENT (see comment) Signing Patholo gist Direct Phone Line: [phone] signed by Charo Brar MD on 10/30/2019 at 4:03 PMPlease also see cytopathology report [id number].The rare atypical cells noted in this current sample are less than those reportedly noted in the sample previous, [id number]. Please see that report for additional information.Additional testing on this small amount of material does not appear prudentat this time.28874, 45084Klevk pleural effusion; HTN, DM, Afib/Aflutter, stage IV colon adenocarcinoma treated by Dr. Solitario with FOLFOX and most recently single agent 5FU admitted with SOB + dry coughrequiring thoracocentesis for R malignant pleural effusion.RIGHT PLEURAL FLUIDReceived 1100 ml brown fluidPrepared cell block(A2) using collodion bag and 4 cytospinsCollected: [id number]: [id number].U/S, [id number] 14:02:00 Laterality?->RightReason for exam:->suspected malignant pleural effusionLabs to be Ordered:->Body Fluid Culture (w/Gram Stain, C\\T\\S)Labs to be Ordered:->Glucose+LDH+ProteinLabs to be Ordered:->CytologyFINAL REPORT Exam: Ultrasound guided thoracentesis Clinical History: Right-sided Pleural Effusion Telephone Information Supervisor: Daiana Senior PA-C Supervising Physician: Jan Hanna MD Consent: Benefits and risks were explained to the patient who gave consent to the procedure. Complication: None Immediate Procedure: The patient was placed in sitting position. The right posterior c hest was prepped and draped in usual sterile [...] MDReport Verified Date/Time: 10/30/2019 14:02:14 Reading Location: [facility] P006J Ultrasound Reading Room CYTOLOGY 2019-10-30 11:52:00Medical Cytology Report Case: [id number] Authorizing Provider: Nima Carranza MD Collected: 10/25/2019 9584 Ordering Location: [address] Received: 10/26/2019 0954 Service Pathologist: Taylor Kessler MD Specimen: Pleural, Right RIGHT PLEURAL FLUID (CYTOSPINS AND CELL BLOCK): - FEW ATYPICAL CELLS CONSISTENT WITH METASTATIC CARCINOMA (SEE COMMEN T) Preliminary result electronically signed by Taylor Kessler MD on 10/26/2019 at 3:49 PMRare single atypical cells are seen and the immunohistochemical features and history of metastatic colon cancer favor malignant cells of colonic origin. Due to the overall paucity of atypical cells, cytologic examination of any recurrent pleuraleffusions is recommended.49771, 20815, 93786 x 1, 03527 x 89 y.o. man with hx of Stage IV colon cancer with omental metastases (dx 07/2018, s/p FOLFOX and 5FU chemotherapy) c/b prior large bowel obstruction (s/p stent placement), reported to have malignant pleural effusions (recent thoracentesis 09/2019), and malignant ascitesRIGHT PLEURAL FLUIDReceived 1100 mls bloody fluid; Prepared 4 cytospins, cell block(A2) using collodion bagCollected: [id number]: [id number].SatisfactoryThe interpretation of this case included the use [...] evaluated Immunohistochemistry technical testing was performed at [facility], Pathology Laboratory where it was developed [...] qualified to perform high complexity clinical laboratory testing.[facility], Department of Pathology, [address] [place] [address], [facility], [address] [place] [address], [facility], [facility] of [facility], [address] [place] [address], LGCZ FLUID CULTURE + GRAM [id number] 15:54:00 Test Item Value Reference Range Interpretation Comments CULTURE (BEAKER) (test No growth code = 1095) GRAM STAIN RESULT <1+ White blood cells (BEAKER) (test code = seen 1123) GRAM STAIN RESULT No organisms seen (BEAKER) (test code = 38030) RAD, CHEST, PA OR AP, 1 [id number] 17:45:00Reason for exam:->right side thoracentesisFINAL REPORT TECHNIQUE: [...] significant change since 10/25/2019. Signed: Stephanie Duffy [facility] Verified Date/Time: 10/27/2019 17:45:36 Reading Location: [facility] B1 C013Y CT Body Reading Room BODY FLUID CELL COUNT WITH [id number] 17:23:00 Test Item Value Reference Range Interpretation Comments APPEARANCE FLUID (BEAKER) Bloody Clear A (test code = 510) COLOR FLUID (BEAKER) (test Red Colorless, Straw A code = 511) RBC FLUID (BEAKER) (test code 095730 /cu mm <=1 H = 513) ADJUSTED [...] EDTA Tube (test code = 2873) U/S, [id number] 17:08:00Laterality?->RightReason for exam:- >persistent fluid, still symptomatic, [...] 2% lidocaine anesthesia was administered. A 4 Swedish catheter was advanced into the pleural cavity and 1300 cc of bloody fluid was removed. The catheter was removed without immediate complication. Samples were sent for analysis. IMPRESSION:Uncomplicated ultrasound-guided right thoracentesis with 1300 cc fluid removed. Signed: Stephanie Duffy MDReport Verified Date/Time: 10/27/2019 17:08:31 Reading Location: [facility] C013Y [place] Body Reading Room POCT-GLUCOSE METER 2019-10-27 11:21:00 Test Item Value Reference Range Interpretation Comments POC-GLUCOSE METER 162 mg/dL 70-110 H : TESTED A T [facility] 6720 (BEAKER) (test code = NAMITA Fercho [place], 1538) 94184: Rn Forensic/Techni patrick ID = [id number] for IB RAHIM, [place] POCT-GLUCOSE [id number] 07:21:00 Test Item Value Reference Range Interpretation Comments POC-GLUCOSE METER 136 mg/dL 70-110 H : TESTED A T [facility] 6720 (BEAKER) (test code = NAMITA CHEN [place], 1538) 33801: Rn Forensic/Techni patrikc ID = [id number] for IB CHASE REDDY [id number] 06:31:00 Test Item Value Reference Range Interpretation Comments MAGNESIUM (BEAKER) (test code = 2.1 mg/dL 1.6-2.6 627) Rn Forensic ID - ARGENIS MBASIC METABOLIC [id number] 06:31:00 Test Item Value Reference Range Interpretation [...] S NOT APPLICABLE FOR DIALYSIS PATIEN TS. Rn Forensic ID - ARGENIS MPROTHROMBIN [id number] 05:51:00 Test Item Value Reference Range Interpretation [...] mechanical heart valves.CBC W/PLT COUNT & AUTO [id number] 05:41:00 Test Item Value Reference Range Interpretation [...] PERCENT (BEAKER) (test code = 2801) POCT-GLUCOSE [id number] 21:40:00 Test Item Value Reference Range Interpretation Comments POC-GLUCOSE METER 140 mg/dL 70-110 H : TESTED A T [facility] 67[facility] (BEAKER) (test code = NAMITA Brantley CHEN [place], 1538) 29335: Rn Forensic/Techni patrick ID = [id number] for Chayito Yoon [id number] 18:44:00 Test Item Value Reference Range Interpretation Comments MAGNESIUM (BEAKER) 2.1 mg/dL 1.6-2.6 Specimen slightly (test code = 627) hemolyzed Rn Forensic ID - MAHAD EBASIC METABOLIC [id number] 18:44:00 Test Item Value Reference Range Interpretation [...] 697) EGFR (BEAKER) (test 90 mL/min/1.73 ESTIMA MURPHY GFR IS code = 1092) sq m NOT ACCURATE CREATININE CLEARANCE IN PREDICTING GLOMERULAR FILTRATION RATE . ESTIMATED GFR I S NOT APPLICABLE FOR DIALYSIS PATIEN TS. Rn Forensic ID - MAHAD ELACTATE DEHYDROGENASE (LDH)2019-10-26 18:44:00 Test Item Value Reference Range Interpretation Comments LACTATE DEHYDROGENASE 345 U/L 125-220 H Specim en slightly (BEAKER) (test code = hemoly zed 635) Rn Forensic ID - MAHAD EPOCT-GLUCOSE [id number] 16:31:00 Test Item Value Reference Range Interpretation Comments POC-GLUCOSE METER 143 mg/dL 70-110 H : TESTED A T [facility] 6720 (BEAKER) (test code = [facility], 1538) 94566: Rn Forensic/Techni patrick ID = [id number] for IB RAHIM, [place] POCT-GLUCOSE [id number] 10:51:00 Test Item Value Reference Range Interpretation Comments POC-GLUCOSE METER 135 mg/dL 70-110 H : TESTED A T [facility] 6720 (BEAKER) (test code = [facility], 1538) 64190: Rn Forensic/Techni patrick ID = [id number] for IB RAHIM, [place] CBC W/PLT COUNT & AUTO [id number] 10:37:00 Test Item Value Reference Range Interpretation [...] PERCENT (BEAKER) (test code = 2801) POCT-GLUCOSE [id number] 04:16:00 Test Item Value Reference Range Interpretation Comments POC-GLUCOSE METER 183 mg/dL 70-110 H : TESTED A T [facility] 6720 (BEAKER) (test code = NAMITA CHEN [place], 1538) 00176: Rn Forensic/Techni patrick ID = [id number] for LETA COX BODY FLUID CELL COUNT WITH [id number] 21:39:00 Test Item Value Reference Range Interpretation Comments APPEARANCE FLUID (BEAKER) Bloody Clear A (test code = 510) COLOR FLUID (BEAKER) (test Red Colorless, Straw A code = 511) RBC FLUID (BEAKER) (test code 991295 /cu mm <=1 H = 513) ADJUSTED [...] EDTA Tube (test code = 2873) POCT-GLUCOSE [id number] 19:01:00 Test Item Value Reference Range Interpretation Comments POC-GLUCOSE METER 123 mg/dL 70-110 H : TESTED A T [facility] 6720 (BEAKER) (test code = NAMITA Brantley [facility], 1538) 55385: Rn Forensic/Techni patrick ID = [id number] for MARYBEL OWNBEVERLY RAD, CHEST, 1 VIEW, NON [id number] 18:04:00Reason for exam:->post right sided thoracentesisShould this [...] MDReport Verified Date/Time: 10/25/2019 18:04:22 Reading Location: [address] Transitional Reading Room POCT-GLUCOSE [id number] 12:43:00 Test Item Value Reference Range Interpretation Comments POC-GLUCOSE METER 144 mg/dL 70-110 H : TESTED A T [facility] 6720 (BEAKER) (test code = NAMITA Brantley [facility], 1538) 08135: Rn Forensic/Techni patrick ID = [id number] for BEVERLY DICKSON [id number] 06:05:00 Test Item Value Reference Range Interpretation Comments MAGNESIUM (BEAKER) (test code = 2.1 mg/dL 1.6-2.6 627) Rn Forensic ID - BSBASIC METABOLIC [id number] 06:05:00 Test Item Value Reference Range Interpretation [...] S NOT APPLICABLE FOR DIALYSIS PATIEN TS. Rn Forensic ID - [id number] 05:00:00 Test Item Value Reference Range Interpretation [...] mechanical heart valves.CBC W/PLT COUNT & AUTO [id number] 04:47:00 Test Item Value Reference Range Interpretation [...] PERCENT (BEAKER) (test code = 2801) POCT-GLUCOSE [id number] 21:38:00 Test Item Value Reference Range Interpretation Comments POC-GLUCOSE METER 170 mg/dL 70-110 H : TESTED A T [facility] 6720 (BEAKER) (test code = NAMITA CHEN [place], 1538) 73921: Rn Forensic/Techni patrick ID = [id number] for EV ANS, MARLENY POCT-GLUCOSE [id number] 17:40:00 Test Item Value Reference Range Interpretation Comments POC-GLUCOSE METER 211 mg/dL 70-110 H : TESTED A T [facility] 6720 (BEAKER) (test code = [facility], 1538) 12514: Rn Forensic/Techni patrick ID = [id number] for Татьяна ctEstefany engel POCT-GLUCOSE [id number] 11:07:00 Test Item Value Reference Range Interpretation Comments POC-GLUCOSE METER 168 mg/dL 70-110 H : TESTED A T [facility] 6720 (BEAKER) (test code = [facility], 1538) 81359: Rn Forensic/Techni patrick ID = [id number] for Татьяна ctEstefany engel POCT-GLUCOSE [id number] 07:58:00 Test Item Value Reference Range Interpretation Comments POC-GLUCOSE METER 129 mg/dL 70-110 H : TESTED A T [facility] 6720 (BEAKER) (test code = [facility], 1538) 68448: Rn Forensic/Techni patrick ID = [id number] for Татьяна ctEstefany engel [id number] 06:35:00 Test Item Value Reference Range Interpretation Comments MAGNESIUM (BEAKER) (test code = 2.1 mg/dL 1.6-2.6 627) Rn Forensic ID - ARGENIS MBASIC METABOLIC [id number] 06:35:00 Test Item Value Reference Range Interpretation [...] S NOT APPLICABLE FOR DIALYSIS PATIEN TS. Rn Forensic ID - ARGENIS MCARCINOEMBRYONIC ANTIGEN (CEA)2019-10-24 06:24:00 Test Item Value Reference Range Interpretation Comments CARCINOEMBRYONIC ANTIGEN (BEAKER) 100.3 ng/mL 0.0-5.0 H (test code = 685) Rn Forensic ID - ARGENIS MTSH/FREE T4 IF [id number] 06:24:00 Test Item Value Reference Range Interpretation Comments THYROID STIMULATING HORMONE 1.00 uIU/mL 0.35-4.94 (BEAKER) (test code = 772) Rn Forensic ID - ARGENIS MTROPONIN [id number] 06:16:00 Test Item Value Reference Range Interpretation [...] failure, acidosis, acute neurological disease, and persistent tachyarrhythmia.Rn Forensic ID - ARGENIS MLACTATE DEHYDROGENASE (LDH)2019-10-24 06:08:00 Test Item Value Reference Range Interpretation Comments LACTATE DEHYDROGENASE (BEAKER) (test 209 U/L 125-220 code = 635) Rn Forensic ID - ARGENIS MCBC W/PLT COUNT & AUTO [id number] 05:43:00 Test Item Value Reference Range Interpretation [...] PERCENT (BEAKER) (test code = 2801) POCT-GLUCOSE [id number] 00:33:00 Test Item Value Reference Range Interpretation Comments POC-GLUCOSE METER 109 mg/dL 70-110 : TESTED A T [facility] 67[facility] (BEAKER) (test code = NAMITA CHEN [place], 1538) 72217: Rn Forensic/Techni patrick ID = [id number] for Chayito Yoon TROPONIN [id number] 17:41:00 Test Item Value Reference Range Interpretation [...] failure, acidosis, acute neurological disease, and persistent tachyarrhythmia.Rn Forensic ID - BSPOCT-GLUCOSE METER 2019-10-23 17:16:00 Test Item Value Reference Range Interpretation Comments POC-GLUCOSE METER 60 mg/dL 70-110 L : [facility] (test code = NAMITA CHEN [place], 1538) 67090: Rn Forensic/Techni patrick ID = [id number] for Vict or, Estefany RAD, CHEST, 2 [id number] 14:27:00Reason for exam:->SHORTNESS OF BREATHx3 months; worse over last month; recent admission in [facility] REPORT INDICATION: SHORTNESS OF BREATH COMPARISON: July 16, 2019 TECHNIQUE: Frontal and lateral views of the chest. FINDINGS: Lungs and pleura: Moderate right effusion and adjacent compressive atelectasis..Heart and mediastinum: Normal heart size. Unremarkable mediastinal contours.Osseous structures: No acute abnormality.Additional findings: Port-A-Cath tip overlies the SVC. IMPRESSION: Moderate right effusion with adjacent compressive atelectasis Signed: Twila Escobar MDReport Verified Date/Time: 10/23/2019 14:27:38 Reading Location: [facility] Radiology Reading Room [id number] 13:25:00 Test Item Value Reference Range Interpretation Comments PARTIAL THROMBOPLASTIN TIME 26.1 sec 22.5-36.0 (BEAKER) (test code = 760) PROTHROMBIN [id number] 13:25:00 Test Item Value Reference Range Interpretation [...] CT, CHEST, WITH IV CONTRAST- PE TEST [id number] 12:20:00Reason for exam:- >SHORTNESS OF BREATHx3 months; worse over last month; [place]?->No SedationFINAL REPORT [...] left adrenal 3.3 cm mass. Signed: Stefanie Royort Verified Date/Time: 10/23/2019 12:20:34 Reading Location: [address] Consult Reading Room CT, ABDOMEN 2019-10-23 12:20:00FINAL [...] vesicles are unremarkable. No ascites or free intraperiton eal air. Osseous structures demonstrate degenerative changes. No suspicious bony lesion is identified. Impression: Technically suboptimal exam, allowing for this limitation, no PE is identified. Large right pleural effusion. Suspect right- sided pleural-based metastasis. Stent in proximal descending colon. There is omental carcinomatosis. Serosal deposits may also be present along the liver surface. Indeterminate left adrenal 3.3 cm mass. Signed: Stefanie Royort Verified Date/Time: 10/23/2019 12:20:34 Reading Location: [facility] [address] [place] [address] Consult Reading Room URINALYSIS WITH MICROSCOPIC IF [id number] 12:10:00 Test Item Value Reference Range Interpretation [...] SOURCE(BEAKER) (test code = 2795) BASIC METABOLIC [id number] 11:56:00 Test Item Value Reference Range Interpretation [...] 93 pg/mL 0-100 (test code = 700) [id number] 11:49:00 Test Item Value Reference Range Interpretation Comments PHOSPHORUS (BEAKER) 3.7 mg/dL 2.3-4.7 Specimen slightly (test code = 604) hemolyzed TROPONIN [id number] 11:49:00 Test Item Value Reference Range Interpretation [...] acute neurological disease, and persistent tachyarrhythmia.BLOOD GAS, [id number] 11:22:00 Test Item Value Reference Range Interpretation [...] (test code = 1819) 100.0 % POCT-GLUCOSE [id number] 11:13:00 Test Item Value Reference Range Interpretation Comments POC-GLUCOSE METER 69 mg/dL 70-110 L : TESTED A T [facility] 7200 (BEAKER) (test code = [facility] A, 1538) [facility] 7703 0: Rn Forensic/Techni patrick ID = [id number] for LEONORU GALAN, CONNER RAD, CHEST, 2 [id number] 14:00:00Reason for Exam:->SOB shortness of breathFINAL REPORT [...] MDReport Verified Date/Time: 07/16/2019 14:00:37 Reading Location: [address] Radiology Reading Room CT, CHEST, WITH IV [id number] 13:11:00Reason for Exam:->C18.9FINAL REPORT CT of the [...] MDReport Verified Date/Time: 07/02/2019 13:11:30 Reading Location: [facility] C013X Ortho Consult Reading Room CT, [id number] 13:11:00Reason for Exam:->C18.9FINAL REPORT CT of the [...] Royeport Verified Date/Time: 07/02/2019 13:11:30 Reading Location: [facility] C013X Ortho Consult Reading Room [id number] 07:46:00 Test Item Value Reference Range Interpretation Comments POC-CREATININE 0.7 mg/dL 0.6-1.3 TESTED AT [facility] 7200 ([facility]) (test RANDY D G A code = 1859) [facility] 7703 0 POC-EGFR 140 mL/min/1.73M2 ([facility]) (test code = 1860) CT, [id number] 09:11:00FINAL REPORT EXAM: CT Chest, Abdomen and [...] is atherosclerotic with minimal scattered calcified plaque. Ther e is no dilatation of the thoracic aorta [...] Date/Time: 04/17/2019 09:11:14 CT, CHEST, WITH IV [id number] 09:11:00FINAL REPORT EXAM: CT Chest, Abdomen and [...] Date/Time: 04/17/2019 09:11:14 CT, CHEST, WITH IV [id number] 15:06:00FINAL REPORT CT CHEST, ABDOMEN, AND PELVIS [...] attention on subsequent follow-ups. Signed: Og Soriano [facility] Verified Date/Time: 12/25/2018 15:06:57 CT, ABDOMEN, WITHOUT / WITH IV [id number] 15:06:[address] CHEST, ABDOMEN, AND [...] Date/Time: 12/25/2018 15:06:57 CT, PELVIS, WITH IV [id number] 15:06:00FINAL REPORT CT CHEST, ABDOMEN, AND PELVIS [...] on subsequent follow-ups. Signed: Og Sorianoeport Verified Date/Time: 12/25/2018 15:06:57 PT-[id number] 08:55:00 Test Item Value Reference Range Interpretation Comments POC-CREATININE 0.7 mg/dL 0.6-1.3 TESTED AT [facility] 7200 ([facility]) (test RANDY D G A code = 1859) [facility] 7703 0 POC-EGFR 140 mL/min/1.73M2 (BEAKER) (test code = 1860) TISSUE [id number] 13:08:00Surgical Pathology Report Case: [id number] Authorizing Provider: Jessi Turcios MD Collected: 07/17/2018 7460 Ordering Location: [address] Received: 07/17/2018 1608 Service Pathologist: Allen Velazquez MD Specimen: Omentum [...] developed and its performance characteristics determined by [facility], Pathology Laboratory. It has not [...] qualified to perform high complexity clinical laboratory testing.[id number] x 4Addendum electronically signed by Star Trejo MD on 07/20/2018 at 10:07 AMPART A OMENTAL BIOPSY:MODERATELY DIFFERENTIATED ADENOCARCINOMA.SEE DIAGNOSTIC COMMENT. Signing Pathologist Direct Phone Line: [phone] signed by Allen Velazquez MD on 07/19/2018 [...] and imaging studies is required for complete interpretation.65597, 82913, 66047y9Gve givenOmentum The specimen is received in a formalin-filled container and labeledwith the patient's information labeled "omentum" and consists of four off white core biopsies ranging from 0.2 to 0.4 cm, submitted entirely A1.CG/pl PERFORMED.The following special studies were performed on this case and the interpretation is incorporated in the diagnostic report above:BLOCK A1- CK7,CK20, CDX2, TTF1, PSA, ZG82Rzj immunohistochemistry test was developed and its performance characteristics determined by [facility], Pathology Laboratory. It has not [...] to perform high complexity clinical laboratory testing.POCT-GLUCOSE [id number] 12:55:00 Test Item Value Reference Range Interpretation Comments POC-GLUCOSE METER 115 mg/dL 70-[address] [facility] 67[address] ([facility]) (test code = NAMITA Brantley [facility] 1538) 23281 POCT-GLUCOSE [id number] 08:52:00 Test Item Value Reference Range Interpretation Comments POC-GLUCOSE METER 137 mg/dL 70-[address] [facility] 67[address] ([facility]) (test code = JORGENJ Fercho [facility] 1538) [address] CARCINOEMBRYONIC ANTIGEN (CEA)2018-09-13 07:11:00 Test Item Value Reference Range Interpretation Comments CARCINOEMBRYONIC ANTIGEN 1302.5 ng/mL 0.0-5.0 H (BEAKER) (test code = 685) [id number] 07:04:00 Test Item Value Reference Range Interpretation Comments MAGNESIUM (BEAKER) (test code = 1.7 mg/dL 1.6-2.6 627) BASIC METABOLIC [id number] 07:04:00 Test Item Value Reference Range Interpretation [...] APPLICABLE FOR DIALYSIS PATIEN TS. HEPATIC FUNCTION [id number] 07:04:00 Test Item Value Reference Range Interpretation [...] 6-55 347) CBC W/PLT COUNT & AUTO [id number] 06:29:00 Test Item Value Reference Range Interpretation [...] PERCENT (BEAKER) (test code = 2801) POCT-GLUCOSE [id number] 01:02:00 Test Item Value Reference Range Interpretation Comments POC-GLUCOSE METER 130 mg/dL 70-110 H TESTED AT [place] [address] ([facility]) (test code = NAMITA Brantley [facility] 1538) [address] POCT-GLUCOSE [id number] 17:48:00 Test Item Value Reference Range Interpretation Comments POC-GLUCOSE METER 119 mg/dL 70-110 H TESTED AT [place] [address] ([facility]) (test code = NAMITA Brantley [place] 1538) 100[address] POCT-GLUCOSE [id number] 12:27:00 Test Item Value Reference Range Interpretation Comments POC-GLUCOSE METER 154 mg/dL 70-110 H TESTED AT [place] [address] ([facility]) (test code = NAMITA Brantley [place] 1538) [address] POCT-GLUCOSE [id number] 07:44:00 Test Item Value Reference Range Interpretation Comments POC-GLUCOSE METER 243 mg/dL 70-[address] [facility] 6720 (BEAKER) (test code = NAMITA CHEN [place] 1538) [address] [id number] 06:49:00 Test Item Value Reference Range Interpretation Comments MAGNESIUM (BEAKER) (test code = 1.8 mg/dL 1.6-2.6 627) BASIC METABOLIC [id number] 06:49:00 Test Item Value Reference Range Interpretation [...] 697) EGFR (BEAKER) (test 85 mL/min/1.73 ESTIMA MURPHY GFR IS code = 1092) sq m NOT ACCURATE CREATININE CLEARANCE IN PREDICTING GLOMERULAR FILTRATION RATE . ESTIMATED GFR I S NOT APPLICABLE FOR DIALYSIS PATIEN TS. CBC W/PLT COUNT & AUTO [id number] 06:29:00 Test Item Value Reference Range Interpretation [...] PERCENT (BEAKER) (test code = 2801) POCT-GLUCOSE [id number] 00:36:00 Test Item Value Reference Range Interpretation Comments POC-GLUCOSE METER 141 mg/dL 70-[address] [facility] 6720 (BEAKER) (test code = NAMITA CHEN [place] 1538) [address] [place], MANAGER HEART FAILURE IN OR/30 MINUTE [id number] 19:40:00Reason for exam:- >DURING PROCEDUREBRONCHFINAL REPORT Fluoroscopy 5 views intraoperative 09/11/2018 7:39 PM CLINICAL HISTORY: Instrument localization COMPARISON: None available IMPRESSION: Please correlate imaging report findings with the procedure note prepared by Dr. Cordova, as an intra- procedure imaging consultation was not requested. Reported fluoroscopy time: 525.3 seconds. Signed: Latricia Gasca Verified Date/Time: 09/11/2018 19:40:28 Reading Location: [facility] Radiology Reading Room [facility] signed by: LATRICIA GASCA M.D. on 09/11/2018 07:40 PMPOCT-GLUCOSE [id number] 18:32:00 Test Item Value Reference Range Interpretation Comments POC-GLUCOSE METER 116 mg/dL 70-[address] [facility] 67[address] ([facility]) (test code = [facility] 1538) [address] POCT-GLUCOSE [id number] 12:08:00 Test Item Value Reference Range Interpretation Comments POC-GLUCOSE METER 156 mg/dL 70-110 H TESTED AT [place] [address] ([facility]) (test code = [facility] 1538) [address] [id number] 09:06:00 Test Item Value Reference Range Interpretation Comments MAGNESIUM (BEAKER) (test code = 1.9 mg/dL 1.6-2.6 627) [id number] 09:06:00 Test Item Value Reference Range Interpretation Comments PHOSPHORUS (BEAKER) (test code = 3.8 mg/dL 2.3-4.7 604) BASIC METABOLIC [id number] 06:49:00 Test Item Value Reference Range Interpretation [...] NOT APPLICABLE FOR DIALYSIS PATIEN TS. POCT-GLUCOSE [id number] 06:36:00 Test Item Value Reference Range Interpretation Comments POC-GLUCOSE METER 161 mg/dL 70-[address] [facility] 6720 (BEAKER) (test code = NAMITA CHEN [place] 1538) [address] CBC W/PLT COUNT & AUTO [id number] 06:28:00 Test Item Value Reference Range Interpretation [...] PERCENT (BEAKER) (test code = 2801) POCT-GLUCOSE [id number] 01:34:00 Test Item Value Reference Range Interpretation Comments POC-GLUCOSE METER 135 mg/dL 70-110 H TESTED AT [place] [address] ([facility]) (test code = NAMITA Brantley [facility] 1538) [address] POCT-GLUCOSE [id number] 09:00:00 Test Item Value Reference Range Interpretation Comments POC-GLUCOSE METER 195 mg/dL 70-110 H TESTED AT [place] [address] ([facility]) (test code = NAMITA Brantley [facility] 1538) [address] BLOOD [id number] 06:00:00 Test Item Value Reference Range Interpretation Comments CULTURE (BEAKER) (test No growth in 5 days code = 1095) BLOOD [id number] 06:00:00 Test Item Value Reference Range Interpretation Comments CULTURE (BEAKER) (test No growth in 5 days code = 1095) BASIC METABOLIC [id number] 05:43:00 Test Item Value Reference Range Interpretation [...] PATIEN TS. CBC W/PLT COUNT & AUTO [id number] 05:01:00 Test Item Value Reference Range Interpretation [...] PERCENT (BEAKER) (test code = 2801) POCT-GLUCOSE [id number] 22:22:00 Test Item Value Reference Range Interpretation Comments POC-GLUCOSE METER 171 mg/dL 70-[address] [facility] 6720 (BEAKER) (test code = NAMITA Brantley [facility] 1538) [address] ANG, TUNNEL CATH CENTRAL INS W/PORT [id number] 18:25:00Reason for exam:- >need for chemotherapy.FINAL REPORT Right internal jugular chest port insertion History: Patient requires access for chemotherapy administration. Modality: Sonography andfluoroscopy. Sedation: Versed 1.5 mg and fentanyl 50 mcg given intravenously for conscious sedation. Vital signs were monitored throughout the procedure by a nurse, and remained stable. Physician intra-service time was 30 minutes. Telephone Information Supervisor: Singh Perez MD Dedicated Truck Driver: Noé. Approach: Right internal jugular vein Estimated [...] needle into the right atrium. A 4 Swedish micropuncture sheath was placed. A subcutaneous tunnel [...] MDReport Verified Date/Time: 07/19/2018 18:25:29 Reading Location: [place] [address] Angio Body Reading Room POCT-GLUCOSE [id number] 16:53:00 Test Item Value Reference Range Interpretation Comments POC-GLUCOSE METER 124 mg/dL 70-110 H TESTED AT [place] [address] ([facility]) (test code = NAMITA [place] 1538) [address] TISSUE [id number] 16:29:00Surgical Pathology Report Case: [id number] Authorizing Provider: Julius Sands MD Collected: 07/18/2018 1502 Ordering Location: [address] Received: 07/19/2018 0751 Service Pathologist: Charo Brar MD Specimen: Large Intestine, Colon - Left/Descending, mass LEFT/DESCENDING COLON, BIOPSY: - INVASIVE MODERATELY DIFFERENTIATED ADENOCARCINOMA, SITUATED PREDOMINANTLY BENEATH THE MUSCULARIS MUCOSA, WITH FOCAL NECROSISMO/pl Signing Pathologist Direct Phone Line: [phone] signed by Charo Brar MD on 07/19/2018 at 4:29 [id number] of colon, colonic mass Left descending colon [...] Other significant features are not noted. POCT-GLUCOSE [id number] 12:32:00 Test Item Value Reference Range Interpretation Comments POC-GLUCOSE METER 116 mg/dL 70-[address] [facility] ([facility]) (test code = [facility] 1538) [address] POCT-GLUCOSE [id number] 09:22:00 Test Item Value Reference Range Interpretation Comments POC-GLUCOSE METER 130 mg/dL 70-110 H TESTED AT [place] [address] ([facility]) (test code = [facility] 1538) [id number] BASIC METABOLIC [id number] 06:03:00 Test Item Value Reference Range Interpretation Comments SODIUM (BEAKER) 138 meq/L 136-145 (test code = 381) POTASSIUM (BEAKER) 3.3 meq/L 3.5-5.1 L (test code = 379) CHLORIDE (BEAKER) 104 meq/L 98-107 (test code = 382) CO2 (BEAKER) (test 23 meq/L 22-29 code = 355) BLOOD UREA NITROGEN 6 mg/dL 7-21 L (BEAKER) (test code = 354) CREATININE (BEAKER) 0.76 [...] NOT APPLICABLE FOR DIALYSIS PATIEN TS. PROTHROMBIN [id number] 05:34:00 Test Item Value Reference Range Interpretation [...] PERCENT (BEAKER) (test code = 2801) POCT-GLUCOSE [id number] 23:21:00 Test Item Value Reference Range Interpretation Comments POC-GLUCOSE METER 127 mg/dL 70-110 H TESTED AT [place] [address] ([facility]) (test code = [facility] 1538) [id number] POCT-GLUCOSE [id number] 17:29:00 Test Item Value Reference Range Interpretation Comments POC-GLUCOSE METER 116 mg/dL 70-110 H TESTED AT [place] [address] ([facility]) (test code = [facility] 1538) [id number] POCT-GLUCOSE [id number] 15:41:00 Test Item Value Reference Range Interpretation Comments POC-GLUCOSE METER 122 mg/dL 70-110 H TESTED AT [place] [address] ([facility]) (test code = [facility] 1538) [id number] 15:40:00Medical Cytology Report Case: [id number] Authorizing Provider: Jessi Turcios MD Collected: 07/17/2018 1435 Ordering Location: [address] Received: 07/18/2018 0837 Service Pathologist: Alvin Arroyo MD Specimen: Peritoneal Fluid PERITONEAL FLUID (CYTOSPINS): - SUSPICIOUS FOR MALIGNANCY Signing Pathologist Direct Phone Line: [phone] signed by Alvin Arroyo MD on 07/18/2018 at 3:40 PMThere are a few atypical clusters that are suspicious for malignancy in a background of reactive mesothelial cells and chronic inflammation.[id number]; colon mass and omental nodules presents for CT-guided core biopsy of omentalnodulesPERITONEAL FLUIDPrepared 4 cytospins from 4 ml yellow blood-tinged fluidCollected: [id number]: [id number]e [facility], Department of Pathology, [address] [place] [address], [facility], Department of Pathology, [address] [place] [address], [facility], Department of Pathology, [address] [place] [address], YXIF-GLUCOSE [id number] 11:53:00 Test Item Value Reference Range Interpretation Comments POC-GLUCOSE METER 111 mg/dL 70-110 H TESTED AT [place] [address] (BEAKER) (test code = NAMITA Brantley [facility] 1538) [id number] POCT-GLUCOSE [id number] 06:48:00 Test Item Value Reference Range Interpretation Comments POC-GLUCOSE METER 124 mg/dL 70-110 H TESTED AT [place] [address] (BEAKER) (test code = [facility] Fercho [facility] 1538) [id number] POCT-GLUCOSE [id number] 23:34:00 Test Item Value Reference Range Interpretation Comments POC-GLUCOSE METER 133 mg/dL 70-110 H TESTED AT [place] [address] (BEAKER) (test code = [facility] Fercoh [facility] 1538) [address] BODY FLUID CELL COUNT WITH [id number] 18:38:00 Test Item Value Reference Range Interpretation [...] Tube (BEAKER) (test code = 2873) POCT-GLUCOSE [id number] 17:54:00 Test Item Value Reference Range Interpretation Comments POC-GLUCOSE METER 145 mg/dL 70-[address] [facility] [address] (BEAKER) (test code = NAMITA CHEN MD 1538) [address] CT, BIOPSY, [id number] 16:57:00Reason for exam:->Need biopsy of omentum for [...] MDReport Verified Date/Time: 07/17/2018 16:57:37 Reading Location: [facility] B1 C013Y CT Body Reading Room ALBUMIN, BODY [id number] 16:12:00 Test Item Value Reference Range Interpretation Comments ALBUMIN FLUID (BEAKER) (test code = 2.9 gm/dL 501) Reference Range: No Normals Assay performance has not been validated for this type of specimen.PROTEIN, BODY [id number] 16:12:00 Test Item Value Reference Range Interpretation Comments PROTEIN FLUID (BEAKER) (test code = 5.0 g/dL 579) Absence of reference range indicates that normals have not been defined.Assay performance has not been validated for this type of specimen.[id number] 13:18:00 Test Item Value Reference Range Interpretation [...] PERCENT (BEAKER) (test code = 2801) CT, [id number] 12:37:00CT abdomen pelvis with IV and PO [...] node (axial series image 74). Nonspecific subcentimeter bila teral cardiophrenic lymph nodes measure up to 0.9 [...] MDReport Verified Date/Time: 07/17/2018 12:37:32 Reading Location: [facility] B1 C013Y CT Body Reading Room , CHEST, WITH [id number] 12:37:00FINAL REPORT TECHNIQUE: CT of the chest, abdomen, and pelvis WITH intravenouscontrast and WITH oral contrast. Dose modulation, iterative reconstruction, and/or weight- based [...] 0.9 cm on the right.VESSELS: Atherosclerotic vascular c alcifications without aneurysm. GI TRACT: Metallic stent and clip in the descending colon. The reported colonic mass in the descending colon is not clearly identified, likely secondary to overlying stent as well as lack of enteric contrast in this region. No bowel obstruction. Normal appendix. BONES AN D SOFT TISSUES: Degenerative changes of the visualized spine. Soft tissues are unremarkable. IMPRESSION:Metallic stent in the descending colon. No bowel obstruction. The reported colonic mass is not clearly identified, likely secondary to overlying stent and lack of enteric contrast in this region. P eritoneal carcinomatosis with small volume ascites. Indeterminate findings, [...] MDReport Verified Date/Time: 07/17/2018 12:37:32 Reading Location: [address] Body Reading Room -GLUCOSE [id number] 12:31:00 Test Item Value Reference Range Interpretation Comments POC-GLUCOSE METER 188 mg/dL 70-[address] [facility] [address] ([facility]) (test code = [facility] 1538) [id number] CBC W/PLT COUNT & AUTO [id number] 12:21:00 Test Item Value Reference Range Interpretation Comments WHITE BLOOD CELL COUNT ([facility]) 10.1 K/ L 3.5-10.5 (test code = 775) RED BLOOD CELL COUNT ([facility]) 4.41 M/ L 4.63-6.08 L (test code = 761) HEMOGLOBIN ([facility]) (test code = 13.1 GM/DL 13.7-17.5 L 410) HEMATOCRIT ([facility]) (test code = 42.6 % 40.1-51.0 411) [...] PERCENT (BEAKER) (test code = 2801) HEMOGLOBIN [id number] 10:07:00 Test Item Value Reference Range Interpretation Comments HEMOGLOBIN A1C (BEAKER) (test code = 5.6 % 4.3-6.1 368) BASIC METABOLIC [id number] 06:33:00 Test Item Value Reference Range Interpretation [...] mg/dL 8.4-10.2 (test code = 697) EGFR ([facility]) (test 121 mL/min/1.73 ESTIM ATED GFR IS code = 1092) sq m NOT ACCURATE CREATININE CLEARANCE IN PREDICTING GLOMERULAR FILTRATION RATE . ESTIMATED GFR I S NOT APPLICABLE FOR DIALYSIS PATIEN TS. POCT-GLUCOSE [id number] 05:17:00 Test Item Value Reference Range Interpretation Comments POC-GLUCOSE METER 133 mg/dL 70-110 H TESTED AT [place] [address] ([facility]) (test code = [facility] 1538) [id number] POCT-GLUCOSE [id number] 23:45:00 Test Item Value Reference Range Interpretation Comments POC-GLUCOSE METER 121 mg/dL 70-110 H TESTED AT [place] [address] ([facility]) (test code = [facility] 1538) [id number] POCT-GLUCOSE [id number] 17:45:00 Test Item Value Reference Range Interpretation Comments POC-GLUCOSE METER 112 mg/dL 70-110 H TESTED AT [place] [address] ([facility]) (test code = [facility] 1538) [address] [id number] 14:30:00 Test Item Value Reference Range Interpretation Comments ALBUMIN ([facility]) (test code = 1145) 3.9 g/dL 3.5-5.0 POCT-GLUCOSE [id number] 12:40:00 Test Item Value Reference Range Interpretation Comments POC-GLUCOSE METER 110 mg/dL 70-110 TESTED AT [place] [address] ([facility]) (test code = [facility] 1538) [id number] POCT-GLUCOSE [id number] 08:32:00 Test Item Value Reference Range Interpretation Comments POC-GLUCOSE METER 137 mg/dL 70-[address] [facility] [address] ([facility]) (test code = NAMITA Brantley [facility] 1538) [address] BASIC METABOLIC [id number] 06:10:00 Test Item Value Reference Range Interpretation [...] (test code = 697) EGFR (BEAKER) (test 98 mL/min/1.73 ESTIMA MURPHY GFR IS code = 1092) sq m NOT ACCURATE CREATININE CLEARANCE IN PREDICTING GLOMERULAR FILTRATION RATE . ESTIMATED GFR I S NOT APPLICABLE FOR DIALYSIS PATIEN TS. POCT-GLUCOSE [id number] 00:28:00 Test Item Value Reference Range Interpretation Comments POC-GLUCOSE METER 108 mg/dL 70-[address] [facility] [address] ([facility]) (test code = JORGENJ Fercho [facility] 1538) [address] POCT-GLUCOSE [id number] 00:28:00 Test Item Value Reference Range Interpretation Comments POC-GLUCOSE METER 107 mg/dL 70-[address] [facility] [address] ([facility]) (test code = [facility] Fercho [facility] 1538) [address] POCT-GLUCOSE [id number] 17:40:00 Test Item Value Reference Range Interpretation Comments POC-GLUCOSE METER 137 mg/dL 70-110 H TESTED AT [place] [address] ([facility]) (test code = [facility] Fercho [facility] 1538) [address] [place], MANAGER HEART FAILURE IN OR/30 MINUTE [id number] 14:44:00INTRA OP IMAGINGReason for exam:->BOWEL OBSTRUCTIONFINAL REPORT Intraoperative fluoroscopy. CLINICAL HISTORY: BOWEL OBSTRUCTION.FINDINGS: Seven fluoroscopically acquired images were acquired by the referring physician. An intraoperative verbal report was not requested. Fluoroscopy was not performed by the undersigned. Fluoroscopy time: 129 seconds. Seven images. Signed: jR Angel Verified Date/Time: 07/15/2018 14:44:01 Reading Location: [facility] C013X Ortho Consult Reading Room POCT-GLUCOSE [id number] 12:28:00 Test Item Value Reference Range Interpretation Comments POC-GLUCOSE METER 154 mg/dL 70-[address] [facility] [address] ([facility]) (test code = NAMITA CHEN [place] 1538) [id number] CARCINOEMBRYONIC ANTIGEN (CEA)2018-07-15 11:45:00 Test Item Value Reference Range Interpretation Comments CARCINOEMBRYONIC ANTIGEN (KEVINAKER) 766.0 ng/mL 0.0-5.0 H (test code = 685) RAD, CHEST, 1 VIEW, NON [id number] 11:43:00Reason for exam:->pnaShould this be performed at [...] Diane Verified Date/Time: 07/15/2018 11:43:39 Reading Location: [facility] C013Y CT Body Reading Room [...] code = 19 U/L 6-55 347) POCT-GLUCOSE [id number] 08:21:00 Test Item Value Reference Range Interpretation Comments POC-GLUCOSE METER 130 mg/dL 70-[address] [facility] [address] ([facility]) (test code = NAMITA CHEN [place] 1538) [id number] RESPIRATORY PANEL [id number] 07:29:00 Test Item Value Reference Range Interpretation [...] sample was tested at the [facility] using the [employer] Services[employer] Respiratory Panel. It is FDA cleared and has been verified and approved by the [facility] for clinical use on nasal swab specimens. It is not FDA-cleared for use on bronchial wash/lavage samples. However, for this sample type, validation was performed and test characteristics were determined and approved, by [facility] for clinical use under the Clinical Laboratory Improvement Amendments (CLIA) of 1988 requirements. Therefore, FDA clearance isnot required. This laboratory is CLIA- certified and [employer] (CAP)-accredited to perform high complexity testing.LEGIONELLA ANTIGEN, [id number] 04:44:00 Test Item Value Reference Range Interpretation Comments L. PNEUMOPHILA Negative - see Negative fo r L. SEROGP 1 UR AG comment pneumophila (BEAKER) (test code serogrou p 1 antigen, = 1156) suggesting no r ecent or current infe ction with this serog roup. Legionellosis c annot be ruled out si nce other serogroup s and species may cau se disease. STREP PNEUMONIAE [id number] 04:43:00 Test Item Value Reference Range Interpretation [...] below the detection limit of the test. POCT-GLUCOSE [id number] 01:51:00 Test Item Value Reference Range Interpretation Comments POC-GLUCOSE METER 127 mg/dL 70-[address] [facility] [address] (BEAKER) (test code = NAMITA CHEN [place] 1538) [address] BASIC METABOLIC [id number] 00:38:00 Test Item Value Reference Range Interpretation [...] FOR DIALYSIS PATIEN TS. RAPID INFLUENZA A&B [id number] 00:32:00 Test Item Value Reference Range Interpretation Comments RAPID INFLUENZA A AG (BEAKER) Negative Negative, Inconclusive (test code = 1622) RAPID INFLUENZA B AG (BEAKER) Negative Negative, Inconclusive (test code = 1623) CBC W/PLT COUNT & AUTO [id number] 22:58:00 Test Item Value Reference Range Interpretation [...]
[2020-11-12] MEDS ORDERED: D5 0.45 NS 1,000 ML IV SCH (15:00)
[2020-11-12] MEDS ORDERED: D5 0.45 NS 1,000 ML IV ONE (16:41)
[2020-11-12 17:18] VITALS: O2SAT 100
[2020-11-12] MEDS: HYDROMORPHONE HCL 0.5 MG/0.5 ML INJ IV PRN ×2 (17:45→22:58)
[2020-11-12 18:44] VITALS: BMI 35.1
[2020-11-12] MEDS: LORazepam 2 MG/ML VIAL IV PRN (20:21)
[2020-11-13 00:45] VITALS: TEMP 97.7
[2020-11-13] MEDS: HYDROMORPHONE HCL 0.5 MG/0.5 ML INJ IV PRN ×2 (03:24→08:53)
[2020-11-13 04:22] VITALS: BP 151/75
[2020-11-13 04:34] LABS: Basophils % 0.8 % (0-1.3); Hematocrit 27.4 % (39.6-49.0); Lymphocytes % 9.5 % (15.3-44.8); MPV 8.7 fL (7.6-11.3); RBC Red Blood Cell Count 3.61 M/uL (4.33-5.43)
[2020-11-13 04:39] LABS: ALT/SGPT 9 U/L (12-78); AST/SGOT 29 U/L (15-37); Albumin 2.1 g/dL (3.4-5.0); Alkaline Phosphatase 90 U/L (45-117); BUN Blood Urea Nitrogen 7 mg/dL (7-18); Bicarbonate 31 mmol/L (21-32); Bilirubin Total 0.4 mg/dL (0.2-1.0); Glucose Level 133 mg/dL (74-106); Potassium 4.4 mmol/L (3.5-5.1); Protein, Total 7.4 g/dL (6.4-8.2); Sodium Level 145 mmol/L (136-145)
[2020-11-13] MEDS: LORazepam 2 MG/ML VIAL IV PRN (06:13)
[2020-11-13] MEDS ORDERED: TAMSULOSIN 0.4 MG SR CAP PO ONE (08:35)
--- NOTE | 2020-11-13 08:44 | P.HP ---
Certification for Inpatient Patient admitted to: Observation With expected LOS: <2 Midnights Patient will require the following post-hospital care: None Practitioner: I am a practitioner with admitting privileges, knowledge of patient current condition, hospital course, and medical plan of care. Services: Services provided to patient in accordance with Admission requirements found in Title 42 Section 412.3 of the Code of Federal Regulations Patient History Date of Service: 11/12/20 Reason for admission: Hypoglycemia History of Present Illness: Patient is a 59-year-old gentleman who came to the hospital with hypoglycemia. Patient has a history of metastatic lung cancer. Patient has been on Amaryl. He has been taking 4 mg twice a day. I will going to go ahead and stop this. He will probably need to adjust monitor his blood sugars closely at home. He has lost quite a bit a weight. He is been on hospice care. I spoke to was and she does not want revoked hospice. Will continue hospice and we will discharge him in the morning on hospice care. Patient may need PleurX catheter prior to discharge and will talk with surgery and patient regarding this as well. Allergies No Known Allergies Allergy (Verified 11/26/19 23:54) Home Medications: Aspirin 80 mg PO DAILY 11/12/20 Docusate [Colace Cap*] 100 mg PO DAILY 11/12/20 Hydrocodone Bit/Acetaminophen [Hydrocodon-Acetaminophn 10-325] 1 tab PO Q4H PRN 11/12/20 LORazepam [Lorazepam] 1 mg PO Q4H PRN 11/12/20 Morphine Sulfate [Morphine Sulfate ER] 30 mg PO Q8H 11/12/20 Morphine Sulfate [Roxanol] 0.25 ml PO Q3H PRN 11/12/20 Potassium Oral Tab [Klor-Con 10 mEq Tab*] 20 meq PO BID 11/12/20 - Past Medical/Surgical History Diabetic: Yes -: gout -: HTN -: cataracts -: DM -: LUNG cancer -: Atrial Fibrillation -: L knee surgery -: hip abscess removal -: Port a cath right chest -: Thoracentesis -: Colon surgery - Family History Mother Medical History: Hypertension Father Medical History: Cancer Notes: throat cancer - Social History Smoking Status: Former smoker Alcohol use: No CD- Drugs: No Caffeine use: Yes Place of Residence: Home Review of Systems 10-point ROS is otherwise unremarkable Physical Examination - Vital Signs Temperature: 97.7 F Blood Pressure: 151/75 Pulse: 101 Respirations: 19 Pulse Ox (%): 98 - Physical Exam General: Alert, In no apparent distress, Oriented x3 HEENT: Atraumatic, PERRLA, Mucous membr. moist/pink, EOMI, Sclerae nonicteric Neck: Supple, 2+ carotid pulse no bruit, No LAD, Without JVD or thyroid abnormality Respiratory: Diminished, Crackles/rales Cardiovascular: Regular rate/rhythm, Normal S1 S2 Gastrointestinal: Normal bowel sounds, Soft and benign, Non-distended, No tenderness Musculoskeletal: No clubbing, No tenderness Integumentary: No rashes Neurological: Normal speech, Sensation intact, Cranial nerves 3-12 intact, Normal affect, Abnormal gait, Abnormal strength Lymphatics: No axilla or inguinal lymphadenopathy - Studies Laboratory Data (last 24 hrs) 11/12/20 13:04: Glucose 27 L* 11/12/20 10:28: PT 15.8 H, INR 1.37 11/12/20 10:28: WBC 13.20 H D, Hgb 9.3 L, Hct 30.7 L D, Plt Count 416 H 11/12/20 10:28: Sodium 145, Potassium 4.1, BUN 8, Creatinine 0.68, Glucose 91, Magnesium 2.3, Total Bilirubin 0.4, AST 36, ALT 12, Alkaline Phosphatase 110 Assessment & Plan - Problems (Diagnosis) (1) Hypoglycemia Current Visit: Yes Status: Acute (2) Urinary retention Current Visit: Yes Status: Acute (3) Malignant lung neoplasm Current Visit: No Status: Acute (4) Pleural effusion Current Visit: No Status: Acute (5) Diabetes mellitus Current Visit: No Status: Chronic Qualifiers: Diabetes mellitus type: type 2 Diabetes mellitus technician terminal and repeater insulin use: without technician terminal and repeater use Diabetes mellitus complication status: with hyperglycemia Qualified Code(s): E11.65 - Type 2 diabetes mellitus with hyperglycemia (6) Hypertension Current Visit: No Status: Chronic Qualifiers: Hypertension type: essential hypertension Qualified Code(s): I10 - Essential (primary) hypertension - Plan Plan: 1. Dc Amaryl 2. Diuretics 3. Gentle hydration with D5 4. Monitor electrolytes closely 5. Resume palliative Care can restart hospice at discharge. 6. Discussion regarding PleurX catheter Discharge Plan: Home Plan to discharge in: 24 Hours - Advance Directives Does patient have a Living Will: No Does patient have a Durable POA for Healthcare: No - Code Status/Comfort Care Code Status Assessed: Yes Code Status: Full Code Critical Care: No Time Spent Managing PTS Care (In Minutes): 45
--- NOTE | 2020-11-13 12:55 | P.PN ---
Subjective Date of Service: 11/13/20 Chief Complaint: Hypoglycemia Subjective: Improving (no further shortness of breath. no acute complaints) Physical Examination - Vital Signs Temperature: 97.7 F Blood Pressure: 151/75 Pulse: 101 Respirations: 19 Pulse Ox (%): 98 - Physical Exam General: Alert, In no apparent distress Respiratory: Diminished Cardiovascular: Regular rate/rhythm - Studies Laboratory Data (last 24 hrs) 11/12/20 13:04: Glucose 27 L* Assessment And Plan - Current Problems (Diagnosis) (1) Malignant lung neoplasm Current Visit: No Status: Acute Plan: Patient has improvement off oxygen - not an good candidate for pleurX catheter given the slow accumulation of pleural effusion and his likely loculations to the right thoracic cavity - recommend thoracentesis PRN - will be available (2) Pleural effusion Current Visit: No Status: Acute
--- NOTE | 2020-11-13 18:25 | CON ---
Date of Consultation: 11/13/2020 Brief Hpi: Patient is a 59-year-old gentleman who came to the hospital with hypoglycemia. He has a history of metastatic lung cancer, on Amaryl. He had been taking 4 mg twice a day. [facility]. During his admission to the hospital workup, he was noted to have minimal shortness of breath and worsening right-sided pleural effusion. He has had multiple thoracentesis in the past for his malignant pleural effusion and notes that he continues to have wors ening symptoms. The patient has been on hospice care up at this point. They do not wish to revoked the hospice and as such he will be corrected with respect to his medical issues and I was consulted f or possible PleurX catheter placement. The patient has never had a thoracic tube before. He has had multiple thoracentesis which give him symptomatic improvement of approximately 3-4 months' at a time at which point, he requires an additional thoracentesis. Past Medical History: Significant for gout, hypertension, cataracts, diabetes, lung cancer, atrial f ibrillation. Past Surgical History: Includes left knee surgery, hip abscess removal, Port-A-Cath in the right dori st, thoracentesis multiple times and colon surgery. Family History: Significant for hypertension in his mother and cancer in his father, which was oroph aryngeal cancer. He has a positive smoking history. Denies alcohol or recreational drug use. Review of Systems: Ten-point review of systems other than HPI, denies. Physical Examination: Vital Signs: At the time of my examination, his temperature was 97.7, blood pressure 151/75, pulse 1 02, respiratory rate 19, pulse ox is 98% on room air. General: He is awake, alert, and oriented. Psychiatric: Appropriate. Conversive. He is in no apparent distress. HEENT: Normocephalic. His sclerae were anicteric. His mucous membranes are moist. Oropharynx juve r. Neck: Supple without JVD. He has a port in place which is palpable. Chest: He has decreased breath sounds on the right compared to the left. Extremities: No clubbing, cyanosis, edema. Skin: Warm and dry. Laboratory Data: Revealed a white blood cell count of 13.2, hemoglobin 9.3, hematocrit of 30.7, plat elet count is 416, neutrophils are 83%. His PT is 15.8, INR 1.37. His sodium 145, potassium 4.1, ch loride 108, carbon dioxide 33, BUN 8, creatinine 0.6, glucose is 91. His calcium was 8.2. He had imaging performed, which included a chest x-ray, which is officially read as an enlarging righ t pleural effusion with infiltrate, atelectasis and/or mass lesion potentially obscured. He addition ally had an abdomen and pelvis CT, which was officially read as no bowel obstruction, free air or collin gically emergent findings identifiable. Multiple low-density ill-defined lesions of liver present, v deo likely metastatic disease, but not clearly different from November 02 imaging, large loculated r im enhancing pleural effusion with extensive lung parenchymal opacification, only partially image, fi ndings are not substantially different from October, could be intrathoracic malignancy, chronic right lung parenchymal infectious process or combination. Ascites and omental thickening are present. 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 Assessment And Plan: This is a 59-year-old male who comes in with a right pleural effusion, likely l oculated pleural effusion. 1.Continue medical management for his medical issues. 2.Continue hospice as he wishes to continue this. 3.I have explained risks, benefits, and alternatives of a PleurX catheter and feel that he would not be an optimal candidate for this given he has multiloculated effusions and as such I recommend thora centesis to attempt to see if they can get good symptomatic improvement with his current situation. If you requested additional intervention and decided hospice to be discontinued, he would likely need to discuss his case with a thoracic surgeon. However given that he wishes to continue his hospice, I recommend allowing the patient to proceed with his hospice care at this time. I do not recommend s urgical intervention. I have explained the risks, benefits, and alternative. The patient agrees to proceed as indicated. BAILEE/DEVAN Voice ID: [id number] Report ID: [id number]
--- NOTE | 2020-12-01 05:22 | P.DS ---
Discharge Date: 11/13/20 Disposition: ROUTINE DISCHARGE Discharge Condition: GOOD Reason for Admission: Hypoglycemia Consultations: Surgery - Problems (1) Hypoglycemia Status: Acute (2) Urinary retention Status: Acute (3) Malignant lung neoplasm Status: Acute (4) Pleural effusion Status: Acute (5) Diabetes mellitus Status: Chronic Qualifiers: Diabetes mellitus type: type 2 Diabetes mellitus senior care insulin use: without senior care use Diabetes mellitus complication status: with hyperglycemia Qualified Code(s): E11.65 - Type 2 diabetes mellitus with hyperglycemia (6) Hypertension Status: Chronic Qualifiers: Hypertension type: essential hypertension Qualified Code(s): I10 - Essential (primary) hypertension Brief History of Present Illness: Patient is a 59-year-old gentleman who came to the hospital with hypoglycemia. Patient has a history of metastatic lung cancer. Patient has been on Amaryl. He has been taking 4 mg twice a day. I will going to go ahead and stop this. He will probably need to adjust monitor his blood sugars closely at home. He has lost quite a bit a weight. He is been on hospice care. I spoke to was and she does not want revoked hospice. Will continue hospice and we will discharge him in the morning on hospice care. Patient may need PleurX catheter prior to discharge and will talk with surgery and patient regarding this as well. Hospital Course: We went ahead and stop the Amaryl. This will most likely fix patient's hypoglycemic episodes. At this time patient is stable for discharge back to hospice care with outpatient follow up. Vital Signs/Physical Exam: Temp Pulse Resp BP Pulse Ox 97.7 F 101 H 19 151/75 H 98 11/13/20 12:55 11/13/20 12:55 11/13/20 12:55 11/13/20 12:55 11/13/20 12:55 General: Alert Laboratory Data at Discharge: WBC 10.30 K/uL (4.3-10.9) D 11/13/20 04:03 Hgb 8.2 g/dL (13.6-17.9) L 11/13/20 04:03 Hct 27.4 % (39.6-49.0) L 11/13/20 04:03 Plt Count 359 K/uL (152-406) 11/13/20 04:03 PT 15.8 SECONDS (9.5-12.5) H 11/12/20 10:28 INR 1.37 11/12/20 10:28 Sodium 145 mmol/L (136-145) 11/13/20 04:03 Potassium 4.4 mmol/L (3.5-5.1) 11/13/20 04:03 BUN 7 mg/dL (7-18) 11/13/20 04:03 Creatinine 0.67 mg/dL (0.55-1.3) 11/13/20 04:03 Glucose 133 mg/dL (74-106) H 11/13/20 04:03 Magnesium 2.3 mg/dL (1.8-2.4) 11/12/20 10:28 Total Bilirubin 0.4 mg/dL (0.2-1.0) 11/13/20 04:03 AST 29 U/L (15-37) 11/13/20 04:03 ALT 9 U/L (12-78) L 11/13/20 04:03 Alkaline Phosphatase 90 U/L (45-117) 11/13/20 04:03 Home Medications: Hydrocodone Bit/Acetaminophen [Hydrocodon-Acetaminophn 10-325] 1 tab PO Q4H PRN 11/12/20 LORazepam [Lorazepam] 1 mg PO Q4H PRN 11/12/20 Morphine Sulfate [Morphine Sulfate ER] 30 mg PO Q8H 11/12/20 Morphine Sulfate [Roxanol] 0.25 ml PO Q3H PRN 11/12/20 Potassium Oral Tab [Klor-Con 10 mEq Tab*] 20 meq PO BID 11/12/20 Hyoscyamine Sulfate [Levsin TAB*] 1 tab SL Q4H 11/19/20 Tamsulosin [Flomax*] 0.4 mg PO DAILY 11/19/20 Cefpodoxime Proxetil [Vantin] 200 mg PO BID 7 Days #14 tablet 11/22/20 Physician Discharge Instructions: OK TO DC IV AND DC HOME with hospice care Do not take Amaryl CALL or TEXT DR. COULTER AT [phone] IF ANY QUESTIONS REGARDING HOSPITAL STAY. PLEASE CALL THE FLOOR AT [phone] IF ANY MEDICATION OR NURSING QUESTIONS. Diet: Regular Activity: Fall precautions Followup: Jack ROBERTS,Trent Garcia DO [Primary Care Provider] - Time spent managing pt's care (in minutes): 35
== END 2020-11-13 12:49 | disposition home or self-care (01) ==
LOC: ER 09:17 → ERHOLD 14:35 → 2ND 16:47
PROVIDERS: ADMIT Hospitalist; ATTEND Hospitalist
DX: E11.649 Type 2 diabetes mellitus with hypoglycemia without coma (principal); C34.90 Malignant neoplasm of unspecified part of unspecified bronchus or lung; I10 Essential (primary) hypertension; M10.9 Gout, unspecified; Z51.5 Encounter for palliative care; Z20.822 Contact with and (suspected) exposure to COVID-19; R33.9 Retention of urine, unspecified; I48.91 Unspecified atrial fibrillation; R93.2 Abnormal findings on diagnostic imaging of liver and biliary tract; J90 Pleural effusion, not elsewhere classified; R94.31 Abnormal electrocardiogram [ECG] [EKG]; Z87.891 Personal history of nicotine dependence; R18.8 Other ascites
CPT/HCPCS: 93005; 85025 ×2; 80048; 36415; 83735; 82947 ×10; 85610; 80076; 81003; 84484; 80053; 83880; 74177; 71045; 51702; 96375; 96374; 99285; U0003; Q9967; J1170 ×6; J7799; J2405; G0378 ×3

== ENCOUNTER 2020-11-18 17:07 | Inpatient (IN) | payer OTHER ==
[2020-11-18 23:04] LABS: Basophils % 0.7 % (0-1.3); Hematocrit 24.9 % (39.6-49.0); Lymphocytes % 6.9 % (15.3-44.8); MPV 7.9 fL (7.6-11.3); RBC Red Blood Cell Count 3.37 M/uL (4.33-5.43)
[2020-11-18 23:27] LABS: Urine Volume 0.5 mL
[2020-11-18 23:28] LABS: Urine Bacteria 20-50 /HPF (NONE SEEN); Urine RBC >50 /HPF (NONE SEEN)
[2020-11-18 23:33] LABS: ALT/SGPT 11 U/L (12-78); AST/SGOT 40 U/L (15-37); Albumin 2.2 g/dL (3.4-5.0); Alkaline Phosphatase 120 U/L (45-117); BUN Blood Urea Nitrogen 14 mg/dL (7-18); Bicarbonate 27 mmol/L (21-32); Bilirubin Direct 0.2 mg/dL (0-0.2); Bilirubin Total 0.5 mg/dL (0.2-1.0); Glucose Level 199 mg/dL (74-106); Lipase 32 U/L (73-393); Potassium 4.5 mmol/L (3.5-5.1); Protein, Total 8.9 g/dL (6.4-8.2); Sodium Level 140 mmol/L (136-145)
[2020-11-18] MEDS ORDERED: NA CHLORIDE 0.9% 500 ML ONE (23:38)
[2020-11-18] MEDS ORDERED: MORPHINE 4 MG/ML SYR ONE (23:39)
[2020-11-18] MEDS ORDERED: ONDANSETRON 4 MG/2 ML VIAL ONE (23:39)
[2020-11-19 00:10] LABS: Anisocytosis 1+; Blood Morphology Comment NOTED (NOT SEEN); Platelet Estimate INCR
[2020-11-19] MEDS ORDERED: CEFTRIAXONE/SWI 1gm 1 GM/10 ML SYR ONE ×2 (00:32→09:20)
[2020-11-19] MEDS ORDERED: MORPHINE 4 MG/ML SYR ONE (02:51)
--- NOTE | 2020-11-19 03:06 | EDPHYS ---
Physician Documentation [facility] Name: Shai Gonzalez Jr Age: 59 yrs Sex: Male : 1960 Arrival Date: 11/18/2020 Time: 17:09 Bed 20 Private MD: ED Physician Mookie Leos HPI: 11/18 22:42 This 59 yrs old Black Male presents to ER via EMS with complaints of Urinary Problem - rn blood in urine. 22:42 The patient presents with urinary symptoms, hematuria. Onset: The symptoms/episode rn began/occurred yesterday. Modifying factors: The symptoms are alleviated by nothing, the symptoms are aggravated by urinating. Associated signs and symptoms: Pertinent positives: abdominal pain, Pertinent negatives: fever, nausea, vomiting. Severity of symptoms: At their worst the symptoms were mild, in the emergency department the symptoms are unchanged. The patient has not experienced similar symptoms in the past. The patient has not recently seen a physician. Reports undergoing chemo for colon cancer, came in due to blood in urine, and right sided abd pain. No fever. NO trauma. Reports morphine at home helps pain but returns. No hx of kidney cancer or bladder cancer, no hx of kidney stones. . Historical: - Allergies: 17:15 No Known Allergies; jd3 - Home Meds: 17:15 Eliquis 5 mg Oral tab 1 tab 2 times per day [Active]; glimepiride 4 mg Oral tab 1 tab jd3 once daily [Active]; [place] 10-325 mg Oral tab 1 tab every 6 hours [Active]; sotalol 80 mg Oral tab 1 tab 2 times per day [Active]; Tradjenta 5 mg Oral tab 1 tab once daily [Active]; - PMHx: 17:15 colon cancer; Asthma; Back pain; Diabetes - NIDDM; Gout; ascites; Hypertension; jd3 - PSHx: 17:15 colon stent; jd3 - Immunization history:: Adult Immunizations up to date. - Social history:: Smoking status: Patient/guardian denies using tobacco, but has a distant history of tobacco abuse. - Family history:: not pertinent. - Hospitalizations: : No recent hospitalization is reported. ROS: 22:42 Constitutional: Negative for fever, chills, and weight loss, Eyes: Negative for injury, rn pain, redness, and discharge, Cardiovascular: Negative for chest pain, palpitations, and edema, Respiratory: Negative for shortness of breath, cough, wheezing, and pleuritic chest pain, Abdomen/GI: + right sided abd pain Back: Negative for injury and pain, : + hematuria MS/Extremity: Negative for injury and deformity, Skin: Negative for injury, rash, and discoloration, Neuro: Negative for headache, numbness, tingling, and seizure. Exam: 22:42 Constitutional: Overweight male, no acute distress, ambulatory without assistance from rn bathroom. Head/Face: Normocephalic, atraumatic. ENT: dry MM Cardiovascular: Tachycardic, regular. No pulse deficits. Respiratory: No increased work of breathing, no retractions or nasal flaring. Abdomen/GI: soft, mild bilateral lower abd tenderness Skin: Warm, dry MS/ Extremity: Pulses equal, no cyanosis. Neuro: Awake and alert, GCS 15, oriented to person, place, time, and situation Vital Signs: 17:15 BP 111 / 66; Pulse 108; Resp 19 S; Temp 99.4(TE); Pulse Ox 100% on R/A; Weight 114.31 jd3 kg (R); Height 5 ft. 11 in. (180.34 cm) (R); Pain 9/10; 22:00 BP 103 / 52; Pulse 99; Resp 21; Temp 98; Pulse Ox 95% on R/A; ll2 23:00 BP 113 / 69; Pulse 98; Resp 20; Pulse Ox 95% on R/A; ll2 11/19 00:00 BP 114 / 72; Pulse 93; Resp 20; Pulse Ox 95% on R/A; ll2 01:00 BP 119 / 73; Pulse 91; Resp 18; Pulse Ox 94% on R/A; ll2 02:00 BP 108 / 72; Pulse 89; Resp 19; Pulse Ox 97% on R/A; ll2 11/18 17:15 Body Mass Index 35.15 (114.31 kg, 180.34 cm) jd3 MDM: 11/18 21:28 Patient medically screened. rn 11/19 00:09 ED course: [facility] declined due to capacity. . rn 01:17 ED course: [facility] at internal disaster, declines transfer.. rn 01:46 ED course: Urine cleared after irrigation, still dark but not grossly bloody. Still rn attempting to transfer given no urology here. . 03:04 Differential diagnosis: UTI, urinary retention. Data reviewed: vital signs, nurses rn notes, lab test result(s), radiologic studies, CT scan, and as a result, I will admit patient. Counseling: I had a detailed discussion with the patient and/or guardian regarding: the historical points, exam findings, and any diagnostic results supporting the discharge/admit diagnosis, lab results, radiology results, the need for further work-up and treatment in the hospital, the need to transfer to another facility, [facility] does not immediately have the required specialist. Response to treatment: the patient's symptoms have markedly improved after treatment, and as a result, I will discharge patient. ED course: Still no acceptance, have tried multiple hospital systems without success. . 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 Foy should be available, unable to contact him given overnight hours/call restrictions, will cover with abx for UTI. Hematuria has cleared with irrigation. Anticipate serial H/H, abx, and possible dc home with outpt urology f/u. . 11/18 21:45 Order name: Basic Metabolic Panel; Complete Time: 23:48 rn 11/18 21:45 Order name: CBC with Diff; Complete Time: 00:12 rn 11/18 21:45 Order name: Hepatic Function; Complete Time: 23:48 rn 11/18 21:45 Order name: Lipase; Complete Time: 23:48 rn 11/18 21:45 Order name: Urine Culture rn 11/18 21:45 Order name: Urine Microscopic Only; Complete Time: 23:32 rn 11/18 23:10 Order name: Manual Differential; Complete Time: 00:12 EDNC 11/18 23:34 Order name: Blood Culture Adult (2) rn 11/19 02:15 Order name: SARS-COV-2 RT PCR; Complete Time: 02:17 EDNC 11/19 08:28 Order name: Glucose, Ancillary Testing; Complete Time: 19:05 EDNC 11/19 08:56 Order name: Hemoglobin; Complete Time: 19:05 EDNC 11/19 08:56 Order name: Hematocrit; Complete Time: 19:05 EDNC 11/19 12:16 Order name: Glucose, Ancillary Testing; Complete Time: 19:05 EDNC 11/18 21:45 Order name: CT Stone Protocol rn 11/18 21:45 Order name: IV Saline Lock; Complete Time: 23:28 rn 11/18 21:45 Order name: Labs collected and sent; Complete Time: 01:14 rn 11/18 21:45 Order name: Urine Dipstick-Ancillary (obtain specimen); Complete Time: 00:27 rn 11/18 21:45 Order name: Bladder Scanner; Complete Time: 23:27 rn 11/18 23:00 Order name: Rouse; Complete Time: 23:27 rn 11/19 13:42 Order name: Hemoglobin; Complete Time: 19:05 EDNC 11/19 13:42 Order name: Hematocrit; Complete Time: 19:05 EDNC 11/19 19:48 Order name: ABO/RH typing EDNC 11/19 19:48 Order name: Antibody Screen EDNC 11/19 20:14 Order name: Glucose, Ancillary Testing EDNC 11/18 23:00 Order name: Bladder Irrigation; Complete Time: 00:27 rn Administered Medications: 11/18 23:27 Drug: NS 0.9% 500 ml Route: IV; Rate: bolus; Site: left antecubital; 2 11/19 00:27 Follow up: Response: No adverse reaction; IV Status: Completed infusion; IV Intake: ll2 500ml 11/18 23:27 Drug: morphine 4 mg Route: IVP; Site: left antecubital; 2 02 00:28 Follow up: Response: No adverse reaction [facility] 11/18 23:27 Drug: Zofran (Ondansetron) 4 mg Route: IVP; Site: left antecubital; 2 11/19 00:29 Follow up: Response: No adverse reaction [facility] 11/18 23:45 Drug: Rocephin 1 grams Route: IV; Rate: calculated rate; Site: left antecubital; 2 11/19 00:45 Follow up: Response: No adverse reaction; IV Status: Completed infusion ll2 00:15 CANCELLED (Duplicate Order): Rocephin 1 grams IV at calculated rate once; Given slow production internship push per pharmacy instructions Disposition: 11/19/20 03:52 Hospitalization ordered by Ariel Leos for Inpatient Admission. Preliminary diagnosis are Hematuria, unspecified, Urinary tract infection, site not specified, Acute urinary retention. - Bed requested for Telemetry/MedSurg (Inpatient). - Status is Inpatient Admission. mw2 - Condition is Stable. - Problem is new. - Symptoms have improved. Signatures: Dispatcher [employer] [facility] Mookie Leos MD MD rn Attema, Lee, PACKAGER HAND-C PACKAGER HAND-Cla1 Anna Laird RN RN tl1 Lawrence Ortiz RN RN jd3 Willem Pérez mw2 Estefania Rodriguez RN RN ll2 Corrections: (The following items were deleted from the chart) 00:15 02 23:34 Rocephin 1 grams IV at calculated rate once; Given slow IV push per rn pharmacy instructions ordered. rn 11/19 01:11 00:35 CORONAVIRUS+MR.LAB.BRZ ordered. [facility] 03:51 03:06 11/19/2020 03:06 Transfer ordered to Other Acute Care Facility. Diagnosis is rn Hematuria, unspecified; Acute urinary retention; Urinary tract infection, site not specified. Reason for transfer: Higher level of care. Accepting physician is . Condition is Stable. Problem is new. Symptoms have improved. rn 04:28 03:52 Hospitalization Ordered by Ariel Leos MD for Inpatient Admission. Preliminary la1 diagnosis is Hematuria, unspecified; Urinary tract infection, site not specified; Acute urinary retention. Bed requested for Telemetry/MedSurg (Inpatient). Status is Inpatient Admission. Condition is Stable. Problem is new. Symptoms have improved. rn 18:35 04:28 11/19/2020 03:52 Hospitalization Ordered by Ariel Leos MD for Inpatient tl1 Admission. Preliminary diagnosis is Hematuria, unspecified; Urinary tract infection, site not specified; Acute urinary retention. Bed requested for [facility] ER HOLD. Status is Inpatient Admission. Condition is Stable. Problem is new. Symptoms have improved. la1 20:54 18:35 11/19/2020 03:52 Hospitalization Ordered by Ariel Leos MD for Inpatient mw2 Admission. Preliminary diagnosis is Hematuria, unspecified; Urinary tract infection, site not specified; Acute urinary retention. Bed requested for Telemetry/MedSurg (Inpatient). Status is Inpatient Admission. Condition is Stable. Problem is new. Symptoms have improved. tl1
--- NOTE | 2020-11-19 03:06 | ER ---
Nurse's Notes [facility] Name: Shai [facility] Jr Age: 59 yrs Sex: Male : 1960 Arrival Date: 11/18/2020 Time: 17:09 Bed 20 Private MD: Diagnosis: Hematuria, unspecified;Urinary tract infection, site not specified;Acute urinary retention Presentation: 11/18 17:09 Chief complaint: EMS states: "blood noted in his urine, with right sided pain from mid jd3 chest on his right side down to his penis. history of stage 4 colon cancer. on hospice.". Coronavirus screen: At this time, the client does not indicate any symptoms associated with coronavirus-19. Ebola Screen: Patient negative for fever greater than or equal to 101.5 degrees Fahrenheit, and additional compatible Ebola Virus Disease symptoms. Initial Sepsis Screen: Does the patient meet any 2 criteria? No. Patient's initial sepsis screen is negative. Does the patient have a suspected source of infection? No. Patient's initial sepsis screen is negative. Risk Assessment: Do you want to hurt yourself or someone else? Patient reports no desire to harm self or others. Onset of symptoms was November 18, 2020. 17:09 Method Of Arrival: EMS: [facility] jd3 17:09 Acuity: MARIA INES 3 jd3 Historical: - Allergies: 17:15 No Known Allergies; jd3 - Home Meds: 17:15 Eliquis 5 mg Oral tab 1 tab 2 times per day [Active]; glimepiride 4 mg Oral tab 1 tab jd3 once daily [Active]; [place] 10-325 mg Oral tab 1 tab every 6 hours [Active]; sotalol 80 mg Oral tab 1 tab 2 times per day [Active]; Tradjenta 5 mg Oral tab 1 tab once daily [Active]; - PMHx: 17:15 colon cancer; Asthma; Back pain; Diabetes - NIDDM; Gout; ascites; Hypertension; jd3 - PSHx: 17:15 colon stent; jd3 - Immunization history:: Adult Immunizations up to date. - Social history:: Smoking status: Patient/guardian denies using tobacco, but has a distant history of tobacco abuse. - Family history:: not pertinent. - Hospitalizations: : No recent hospitalization is reported. Screenin:00 Abuse screen: Denies threats or abuse. Nutritional screening: No deficits noted. ll2 Tuberculosis screening: No symptoms or risk factors identified. Fall Risk None identified. Assessment: 22:00 General: Appears in no apparent distress. Behavior is calm, cooperative, appropriate ll2 for age. Pain: Complains of pain in lower bladder. Neuro: Level of Consciousness is awake, obeys commands, Oriented to person, place, time, situation. Cardiovascular: Patient's skin is warm and dry. Respiratory: Airway is patent Respiratory effort is even, unlabored, Respiratory pattern is regular, symmetrical. GI:. Derm: Skin is intact, is healthy with good turgor, Skin is dry, Skin is pink, warm \\T\\ dry. Musculoskeletal: Circulation, motion, and sensation intact. Range of motion: intact in all extremities. 23:12 Reassessment: notified dr. leos of patient critical lab value. hbg 7.7. zb 11/19 00:37 Reassessment: Patient and/or family updated on plan of care and expected duration. Pain ll2 level reassessed. Patient is alert, oriented x 3, equal unlabored respirations, skin warm/dry/pink. 01:48 Reassessment: Patient and/or family updated on plan of care and expected duration. Pain ll2 level reassessed. Patient is alert, oriented x 3, equal unlabored respirations, skin warm/dry/pink. Vital Signs: 11/18 17:15 BP 111 / 66; Pulse 108; Resp 19 S; Temp 99.4(TE); Pulse Ox 100% on R/A; Weight 114.31 jd3 kg (R); Height 5 ft. 11 in. (180.34 cm) (R); Pain 9/10; 22:00 BP 103 / 52; Pulse 99; Resp 21; Temp 98; Pulse Ox 95% on R/A; ll2 23:00 BP 113 / 69; Pulse 98; Resp 20; Pulse Ox 95% on R/A; ll2 11/19 00:00 BP 114 / 72; Pulse 93; Resp 20; Pulse Ox 95% on R/A; ll2 01:00 BP 119 / 73; Pulse 91; Resp 18; Pulse Ox 94% on R/A; ll2 02:00 BP 108 / 72; Pulse 89; Resp 19; Pulse Ox 97% on R/A; ll2 11/18 17:15 Body Mass Index 35.15 (114.31 kg, 180.34 cm) [facility] ED Course: 11/18 17:09 Patient arrived in ED. jd3 17:14 Triage completed. jd3 17:16 Arm band placed on. jd3 21:28 Mookie Leos MD is Attending Physician. rn 22:00 Patient has correct armband on for positive identification. Placed in gown. Bed in low ll2 position. Call light in reach. Side rails up X 1. shelter monitor on. Pulse ox on. NIBP on. 22:00 Inserted saline lock: 20 gauge in left antecubital area, using aseptic technique. ll2 ,using aseptic technique. inserted by Stephan. 22:23 CT Stone Protocol In Process Unspecified. EDMS 23:26 Estefania Rodriguez, JUAN M is Primary Nurse. ll2 23:40 Rouse cath inserted, using sterile technique, 16 Fr., by al, balloon inflated, to ll2 gravity drainage, clamped. urine specimen collected. Patient tolerated well. 11/19 03:51 Ariel Leos MD is Hospitalizing Provider. rn 18:45 T\\T\\S collected, blood band applied to patient. Inserted saline lock: 20 gauge in left dh3 wrist, using aseptic technique. Blood collected. 20:54 No provider procedures requiring assistance completed. Patient admitted, IV remains in em place. Administered Medications: 11/18 23:27 Drug: NS 0.9% 500 ml Route: IV; Rate: bolus; Site: left antecubital; 2 11/19 00:27 Follow up: Response: No adverse reaction; IV Status: Completed infusion; IV Intake: ll2 500ml 11/18 23:27 Drug: morphine 4 mg Route: IVP; Site: left antecubital; 2 11/19 00:28 Follow up: Response: No adverse reaction [facility] 11/18 23:27 Drug: Zofran (Ondansetron) 4 mg Route: IVP; Site: left antecubital; 2 11/19 00:29 Follow up: Response: No adverse reaction [facility] 11/18 23:45 Drug: Rocephin 1 grams Route: IV; Rate: calculated rate; Site: left antecubital; 2 11/19 00:45 Follow up: Response: No adverse reaction; IV Status: Completed infusion ll2 00:15 CANCELLED (Duplicate Order): Rocephin 1 grams IV at calculated rate once; Given slow wildlife biology internship push per pharmacy instructions Intake: 00:27 IV: 500ml; Total: 500ml. ll2 Outcome: 03:06 ER care complete, transfer ordered by . rn 03:52 Decision to Hospitalize by Provider. rn 20:54 Patient left the ED. mw2 20:54 Admitted to Med/surg accompanied by tech, via wheelchair, room 208, with chart. em 20:54 Condition: stable 20:54 Instructed on the need for admit, Demonstrated understanding of instructions. Signatures: Dispatcher [employer] Patrick Kramer, RN RN Mookie Gutierrez MD MD rn Herrera, Petra 3 Lawrence Ortiz RN RN jd3 Willem Pérez 2 Estefania Rodriguez, RN RN ll2 Ashely Pavon RN RN zb
--- NOTE | 2020-11-19 04:40 | P.HP ---
Certification for Inpatient Patient admitted to: Observation With expected LOS: <2 Midnights Patient will require the following post-hospital care: None Practitioner: I am a practitioner with admitting privileges, knowledge of patient current condition, hospital course, and medical plan of care. Services: Services provided to patient in accordance with Admission requirements found in Title 42 Section 412.3 of the Code of Federal Regulations <Nehemiah Trent - Last Filed: 11/19/20 04:32> Patient History Date of Service: 11/19/20 Primary Care Provider: Dr. Santiago Reason for admission: UTI, hematuria History of Present Illness: 59-year-old male with history of stage IV metastatic colon canc er on hospice, diabetes mellitus type 2, atrial fibrillation formerly on Eliquis presents emergency department for flank pain and blood in urine. Patient was evaluated in the emergency department found to be retaining significant amount of urine, James catheter was placed draining approximately 2 L of bloody urine, James catheter requiring irrigation to facilitate further drainage. Patient was found to have urinary tract infection, urinary retention, hematuria, initial hemoglobin was 8.4, this dropped to 7.7 on recheck. ED provider wishes to admit patient under observation due to hematuria and dropping hemoglobin levels. Currently patient has James catheter in place draining urine with still a moderate amount of hematuria. Transfer was attempted to all acute care facilities in the [place] area which declined due to capacity/diversion. Will admit for further evaluation and management. - Past Medical/Surgical History Diabetic: Yes -: gout -: HTN -: cataracts -: Diabetes mellitus type 2 -: Stage IV colon cancer -: Atrial Fibrillation on anticoagulant therapy -: L knee surgery -: hip abscess removal -: Port a cath right chest -: Thoracentesis -: Colon surgery Psychosocial/ Personal History: Patient lives at home with his family - Family History Mother -: Hypertension Father -: Cancer Notes: throat cancer - Social History Smoking Status: Former smoker Alcohol use: No CD- Drugs: No Caffeine use: Yes Place of Residence: Home <Nehemiah Trent - Last Filed: 11/19/20 04:32> Date of Service: 11/19/20 <Ariel Leos - Last Filed: 11/19/20 18:11> Allergies No Known Allergies Allergy (Verified 11/26/19 23:54) Home Medications: Hydrocodone Bit/Acetaminophen [Hydrocodon-Acetaminophn 10-325] 1 tab PO Q4H PRN 11/12/20 LORazepam [Lorazepam] 1 mg PO Q4H PRN 11/12/20 Morphine Sulfate [Morphine Sulfate ER] 30 mg PO Q8H 11/12/20 Morphine Sulfate [Roxanol] 0.25 ml PO Q3H PRN 11/12/20 Potassium Oral Tab [Klor-Con 10 mEq Tab*] 20 meq PO BID 11/12/20 Hyoscyamine Sulfate [Levsin TAB*] 1 tab SL Q4H 11/19/20 Tamsulosin [Flomax] 0.4 mg PO DAILY 11/19/20 Review of Systems 10-point ROS is otherwise unremarkable Genitourinary: Dysuria, Hematuria, Retention, As per HPI <Nehemiah Trent - Last Filed: 11/19/20 04:32> Physical Examination - Physical Exam General: Alert, In no apparent distress, Confused HEENT: Atraumatic, Normocephalic, Other (Mucous membranes dry) Respiratory: Diminished (Bilaterally) Cardiovascular: No murmurs, Edema (Nonpitting edema bilateral lower extremities), Irregular heart rate/rhythm (AFib rate controlled) Capillary refill: <2 Seconds Gastrointestinal: Normal bowel sounds, No tenderness, No masses, No rebound Musculoskeletal: No contractures, No erythema, No tenderness Integumentary: No tenderness/swelling, No erythema, No warmth Neurological: Normal strength at 5/5 x4 extr, Normal tone Urinary: James catheter (Hematuria) - Studies Laboratory Data (last 24 hrs) 11/18/20 22:53: WBC 14.70 H D, Hgb 7.7 L*, Hct 24.9 L, Plt Count 417 H 11/18/20 22:53: Sodium 140, Potassium 4.5, BUN 14, Creatinine 0.63, Glucose 199 H, Total Bilirubin 0.5, AST 40 H, ALT 11 L, Alkaline Phosphatase 120 H, Lipase 32 L <Nehemiah Trent - Last Filed: 11/19/20 04:32> - Studies Laboratory Data (last 24 hrs) 11/18/20 22:53: WBC 14.70 H D, Hgb 7.7 L*, Hct 24.9 L, Plt Count 417 H 11/18/20 22:53: Sodium 140, Potassium 4.5, BUN 14, Creatinine 0.63, Glucose 199 H, Total Bilirubin 0.5, AST 40 H, ALT 11 L, Alkaline Phosphatase 120 H, Lipase 32 L <Ariel Leos - Last Filed: 11/19/20 18:11> Assessment and Plan - Plan Assessment Urinary tract infection with hematuria, urinary retention Diabetes mellitus type 2 Atrial fibrillation not on anticoagulation therapy Stage IV colon cancer on hospice Plan Urinary tract infection with hematuria, urinary retention: Urine and blood cultures obtained, continue with IV Rocephin. Trend hemoglobin levels, continue with James catheter at this time. If hemoglobin level remains stable patient may be safe for discharge. Transfuse to maintain hemoglobin greater than 7. Consult for neurology as necessary. CT abdomen pelvis performed in the emergency department which did not show any new acute findings, reports are unavailable for review at this time as radiology system was down and verbal report was given by radiologist to ED physician. DVT prophylaxis with SCDs. Diabetes mellitus type 2: A.c. HS Accu-Cheks, sliding scale insulin therapy. Atrial fibrillation not on anticoagulation therapy: Patient reports he was previously on Eliquis but has not been taking it for the past 1 month. Stage IV colon cancer on hospice: Patient wishes to remain on hospice care for stage IV colon cancer. Discharge Plan: Home Plan to discharge in: 24 Hours - Advance Directives Does patient have a Living Will: No Does patient have a Durable POA for Healthcare: No - Code Status/Comfort Care Code Status Assessed: Yes (DNR) Critical Care: No Time Spent Managing Pts Care (In Minutes): 55 <Nehemiah Trent - Last Filed: 11/19/20 04:32> - Plan Plan of care reviewed with Nehemiah Trent, and I agree with the management plan as noted above. continues with dark red urine output. Hgb trending down discussed with urology, Dr. Foy, recommended 60cc NS flush q4hrs, and PRN for clots ok to continue this 16fr james as long as draining well. trend H/H, transfuse to maintain Hgb >7.0 monitor output discussed with patient and - pt wants full treatment / blood transfusions, etc at this time <Ariel Leos - Last Filed: 11/19/20 18:11>
[2020-11-19] MEDS: INSULIN -REGULAR HUMAN 50 UNIT/0.5 ML ML SQ SCH ×4 (07:46→20:19)
[2020-11-19] MEDS ORDERED: ONDANSETRON 4 MG/2 ML VIAL IV PRN (07:46)
[2020-11-19] MEDS ORDERED: HYDROCODONE/APAP 5/325 MG TAB PO PRN (07:46)
[2020-11-19] MEDS: CEFTRIAXONE/SWI 1gm 1 GM/10 ML SYR IV SCH (09:00)
[2020-11-19] MEDS ORDERED: HYDROCODONE/APAP 5/325 MG TAB ONE (09:20)
[2020-11-19 12:42] VITALS: BMI 31.4
[2020-11-19 13:30] LABS: Hematocrit 22.9 % (39.6-49.0)
--- NOTE | 2020-11-19 13:56 | RAD REPORT ---
EXAM DESCRIPTION: CT - ABDOMEN AND PELVIS CLINICAL HISTORY: COMPARISON:.11/12/2020 TECHNIQUE: Enhanced computed tomography was obtained from the diaphragm to the pubic symphysis. Contrast was not requested. This exam was performed according to our departmental dose-optimization program, which includes automated exposure control, adjustment of the mA and/or kV according to patient size and/or use of iterative reconstruction technique. FINDINGS: No significant change in the outer loculated right pleural effusion and right lung opacities. No change in liver lesions. The liver has a nodular contour. The spleen and pancreas are unremarkable. Left adrenal mass is unchanged. The right adrenal gland is unremarkable. Mild bilateral pyelocaliectosis is unchanged. A urinary calculus is not seen. The prostate gland is mildly enlarged. A stent is present within the left colon. A calcified peripancreatic mass is 2.7 cm, unchanged. A small amount of ascites is unchanged. A partially calcified portacaval lymph node is unchanged. IMPRESSION: 1. Left adrenal lesions are unchanged. 2. Loculated right pleural effusion with right lung opacities unchanged. 3. A 2.7 cm peripancreatic mass is unchanged. It most likely represents a lymph node, it less likely arises from the pancreas.
[2020-11-19] MEDS ORDERED: NA CHLORIDE 0.9% 250 ML IV SCH (15:00)
[2020-11-19] MEDS ORDERED: LORAZEPAM 1 MG TABLET PO PRN (15:23)
[2020-11-19] MEDS ORDERED: HYOSCYAMINE SULF 0.125 MG TAB SL SCH (15:45)
[2020-11-19] MEDS: HYDROCODONE/APAP 10/325 TAB PO PRN (16:14)
[2020-11-19] MEDS ORDERED: HYDROCODONE/APAP 10/325 TAB ONE (16:28)
[2020-11-19] MEDS ORDERED: INSULIN -REGULAR HUMAN 50 UNIT/0.5 ML ML ONE (20:32)
[2020-11-19 22:09] LABS: Hematocrit 23.2 % (39.6-49.0)
[2020-11-20] MEDS: HYDROCODONE/APAP 10/325 TAB PO PRN ×3 (01:47→13:32)
[2020-11-20 05:47] LABS: BUN Blood Urea Nitrogen 8 mg/dL (7-18); Bicarbonate 27 mmol/L (21-32); Glucose Level 116 mg/dL (74-106); Magnesium 2.3 mg/dL (1.8-2.4); Sodium Level 142 mmol/L (136-145)
[2020-11-20 05:54] LABS: Absolute Lymphocytes (CBC) 1.9 K/uL (0.7-4.9); Basophils % 1.5 % (0-1.3); Hematocrit 23.7 % (39.6-49.0); Lymphocytes % 15.6 % (15.3-44.8); MPV 8.3 fL (7.6-11.3); RBC Red Blood Cell Count 3.21 M/uL (4.33-5.43)
[2020-11-20] MEDS: INSULIN -REGULAR HUMAN 50 UNIT/0.5 ML ML SQ SCH ×4 (07:30→21:00)
[2020-11-20 08:14] LABS: Hematocrit 22.8 % (39.6-49.0)
[2020-11-20] MEDS: CEFTRIAXONE/SWI 1gm 1 GM/10 ML SYR IV SCH (08:58)
[2020-11-20] MEDS: TAMSULOSIN 0.4 MG SR CAP PO SCH (08:59)
[2020-11-20] MEDS ORDERED: MORPHINE SULFATE 30 MG PO SCH (09:00)
[2020-11-20 09:42] LABS: Platelet Estimate ADEQ
[2020-11-20 09:43] LABS: Anisocytosis 1+; Blood Morphology Comment NOTED (NOT SEEN); Target Cells 1+
[2020-11-20 09:44] LABS: Hypochromasia 1+
[2020-11-20] MEDS: MORPHINE *EXTENDED RELEASE* 15 MG TAB PO SCH ×2 (11:08→16:54)
[2020-11-20] MEDS ORDERED: FUROSEMIDE 20 MG/ 2ML VIAL IV ONE (12:09)
[2020-11-20] MEDS ORDERED: NA CHLORIDE 0.9% 250 ML ONE (12:57)
[2020-11-20] MEDS ORDERED: NA CHLORIDE 0.9% 250 ML IV SCH (13:00)
--- NOTE | 2020-11-20 13:10 | RAD REPORT ---
EXAM DESCRIPTION: RAD - Chest Single View - 11/20/2020 12:56 pm CLINICAL HISTORY: preop, h/o pleural effusion Chest pain. COMPARISON: Chest Single View dated 11/12/2020; Chest Single View dated 11/01/2020; Chest Pa And Lat ( 2 Views) dated 02/21/2020; Chest Single View dated 11/26/2019; Stone Protocol dated 11/18/2020 FINDINGS: Portable technique limits examination quality. Since 11/12/2020, mild improvement in right lung aeration is seen. Right mid lung consolidation is pr esent with probable small right pleural effusion. No significant left pleural effusion. The heart is normal in size. Right-sided port catheter tip in the SVC.
[2020-11-20 16:32] LABS: Protime INR 1.5
[2020-11-20] MEDS: MORPHINE 4 MG/ML SYR IV PRN ×2 (17:14→21:04)
--- NOTE | 2020-11-20 17:32 | P.PN ---
Subjective Date of Service: 11/20/20 Primary Care Provider: Dr. Santiago Chief Complaint: UTI, hematuria Subjective: No new changes (feeling well, continues with chronic cancer pain. urine appears less bloody, remains dark colored. patient without new complaints) Review of Systems 10-point ROS is otherwise unremarkable Physical Examination - Vital Signs Temperature: 97.4 F Blood Pressure: 147/71 Pulse: 101 Respirations: 20 Pulse Ox (%): 99 - Studies Laboratory Data (last 24 hrs) 11/20/20 16:09: PT 17.3 H, INR 1.50, APTT 26.5 11/20/20 14:00: Hgb Cancelled, Hct Cancelled 11/20/20 07:46: Hgb 7.1 L*, Hct 22.8 L 11/20/20 05:15: WBC 12.00 H D, Hgb 7.1 L*, Hct 23.7 L, Plt Count 385 11/20/20 05:15: Sodium 142, Potassium 4.0, BUN 8, Creatinine 0.56, Glucose 116 H, Magnesium 2.3 11/19/20 21:42: Hgb 7.3 L*, Hct 23.2 L Assessment & Plan Physician Review Additional Text: Physical Exam Gen: NAD HEENT: normal conjunctiva CV: RRR, no murmr Pulm: diminished at bases bilaterally, nonlabored on 2 LNC Abd: soft, NTND Ext: no rash, no edema Rouse in place: dark, tea-colored urine Problem List Urinary tract infection with hematuria, urinary retention Diabetes mellitus type 2 Atrial fibrillation not on anticoagulation therapy Stage IV colon cancer on hospice Urinary tract infection with hematuria, urinary retention: Urine and blood cultures obtained, continue with IV Rocephin. Trend hemoglobin levels, continue with Rouse catheter at this time. urology consulted. CT abd/pelvis without any acute new findings s/p 1u PRBC yesterday, hgb still low / dropping. discussed with urology, transfuse 2u PRBC, lasix after first dose, post transfusion h/h continue NS flushes NPO after midnight Diabetes mellitus type 2: A.c. HS Accu-Cheks, sliding scale insulin therapy. Atrial fibrillation not on anticoagulation therapy: Patient reports he was previously on Eliquis but has not been taking it for the past 1 month. Stage IV colon cancer on hospice: Patient and want everything done for this current issue but want to be discharged back to hospice care for stage IV colon cancer. Time Spent Managing Pts Care (In Minutes): 45
[2020-11-20 22:33] LABS: Hematocrit 26.1 % (39.6-49.0)
[2020-11-21] MEDS: MORPHINE 4 MG/ML SYR IV PRN ×3 (00:25→12:18)
[2020-11-21] MEDS: MORPHINE *EXTENDED RELEASE* 15 MG TAB PO SCH ×3 (01:00→17:36)
[2020-11-21 02:16] LABS: Urine Bacteria 20-50 /HPF (NONE SEEN); Urine Mucus 2+ /HPF (NONE SEEN); Urine RBC TNTC /HPF (NONE SEEN)
[2020-11-21 05:43] LABS: Basophils % 1.4 % (0-1.3); Hematocrit 28.9 % (39.6-49.0); Lymphocytes % 15.5 % (15.3-44.8); MPV 8.1 fL (7.6-11.3); RBC Red Blood Cell Count 3.83 M/uL (4.33-5.43)
[2020-11-21 05:51] LABS: Protime INR 1.54
[2020-11-21 06:02] LABS: ALT/SGPT 8 U/L (12-78); AST/SGOT 18 U/L (15-37); Albumin 2.1 g/dL (3.4-5.0); Alkaline Phosphatase 111 U/L (45-117); BUN Blood Urea Nitrogen 6 mg/dL (7-18); Bicarbonate 27 mmol/L (21-32); Bilirubin Total 0.5 mg/dL (0.2-1.0); Glucose Level 116 mg/dL (74-106); Magnesium 2.1 mg/dL (1.8-2.4); Phosphorus 4.2 mg/dL (2.5-4.9); Potassium 3.8 mmol/L (3.5-5.1); Protein, Total 8.7 g/dL (6.4-8.2); Sodium Level 141 mmol/L (136-145)
[2020-11-21] MEDS ORDERED: NA CHLORIDE 0.9% 250 ML ONE (06:54)
[2020-11-21] MEDS ORDERED: KCL 20 MEQ/100 mL IVPB 20 MEQ/100 ML BAG IV ONE (07:00)
[2020-11-21] MEDS: INSULIN -REGULAR HUMAN 50 UNIT/0.5 ML ML SQ SCH ×4 (10:11→20:22)
[2020-11-21] MEDS: TAMSULOSIN 0.4 MG SR CAP PO SCH (10:12)
[2020-11-21] MEDS: CEFTRIAXONE/SWI 1gm 1 GM/10 ML SYR IV SCH (10:13)
--- NOTE | 2020-11-21 11:22 | RAD REPORT ---
EXAM DESCRIPTION: US - Renal Ultrasound-Complete - 11/21/2020 10:17 am CLINICAL HISTORY: hematuria,urinary retention Pelvic pain COMPARISON: Renal Ultrasound-Complete dated 05/17/2018 FINDINGS: Both kidneys are normal in size, shape and echotexture. The right kidney measures 12.3 x 7.2 x 5.5 cm. No hydronephrosis, focal mass or perinephric fluid. The left kidney measures 10.8 x 7.8 x 6.5 cm. No hydronephrosis, focal mass or perinephric fluid. The urinary bladder is incompletely distended without gross abnormality seen. IMPRESSION: Unremarkable renal sonogram.
[2020-11-21 12:28] LABS: Hematocrit 28.8 % (39.6-49.0); MPV 7.9 fL (7.6-11.3); RBC Red Blood Cell Count 3.78 M/uL (4.33-5.43)
--- NOTE | 2020-11-21 17:03 | P.PN ---
Subjective Date of Service: 11/21/20 Primary Care Provider: Dr. Santiago Chief Complaint: UTI, hematuria Subjective: Improving (urine clearing up, patient otherwise feels like his typical self, no new pains. continues with chronic / cancer pain) Review of Systems 10-point ROS is otherwise unremarkable Physical Examination - Vital Signs Temperature: 97.6 F Blood Pressure: 140/88 Pulse: 106 Respirations: 34 Pulse Ox (%): 97 - Studies Microbiology Data (last 24 hrs): 11/18/20 22:10 Clean Catch Urine [place] Count - Final >100,000 CFU/ML. 11/18/20 22:10 Clean Catch Urine - Final MIXED DEBORAH. Assessment & Plan Physician Review Additional Text: Physical Exam Gen: NAD HEENT: normal conjunctiva CV: RRR, no murmr Pulm: diminished at bases bilaterally, R>L , nonlabored on 2 LNC Abd: soft, NTND Ext: no rash, no edema James in place: dark, tea-colored urine in bag, ultrasound manager in tube Neuro: confused, dementia, AAOx3 Problem List Urinary tract infection with hematuria, urinary retention Diabetes mellitus type 2 Atrial fibrillation not on anticoagulation therapy Stage IV colon cancer on hospice Urinary tract infection with hematuria, urinary retention: Urine and blood cultures obtained, continue with IV Rocephin. will need ~10 day course on discharge Trend hemoglobin levels, continue with James catheter at this time. - s/p 3uPRBC in total. Hgb seems to be stabilizing, urine clearing up urology consulted. CT abd/pelvis without any acute new findings continue james given urinary retention (2L out with james placement) continue NS flushes NPO after midnight Diabetes mellitus type 2: A.c. HS Accu-Cheks, sliding scale insulin therapy. Atrial fibrillation not on anticoagulation therapy: Patient reports he was previously on Eliquis but has not been taking it for the past 1 month due to prior bleeding, continue to hold Stage IV colon cancer on hospice: Patient and want everything done for this current issue but want to be discharged back to hospice care for stage IV colon cancer. Dispo: anticipate dc home tomorrow, pending stable Hgb and continued improvement of urine Time Spent Managing Pts Care (In Minutes): 35
--- NOTE | 2020-11-21 20:12 | CON ---
Reason For Consultation: Gross hematuria and declining hematocrit. History Of Present Illness: Mr. Gonzalez is a 59-year-old gentleman, who has previously been on hospice because of stage IV metastatic colorectal carcinoma in the setting of type 2 diabetes, atrial fibrillation, previously on anticoagulation. He describes having had intermittent gross hematuria over the course of at least the last 3 or 4 months that he can recall, though he is not certain about the dates. He knows it has been at least that long. What brought him into the Emergency Department was the development of dysuria that caused him a degree of concern. He has never had any difficulty voiding or issues with significant clot retention. He has been treated with chemotherapy alone for his metastatic colorectal cancer and has not had any surgical or radiation therapy. Upon his admission to the hospital, a 16-[place] urethral Rouse catheter was inserted and over 2 L of dark hematuria was drained, that initially cleared when they irrigated the catheter, and there were never any clots or obstruction of the 16-[place] Rouse. Despite that, he had continued dark urine output. His renal function was preserved with a creatinine of 0.6. A CT scan was obtained on 11/18/2020 in the Emergency Department and revealed the following: Unchanged left adrenal mass, size not reported; unremarkable right adrenal gland. Mild bilateral pelvocaliectasis. No upper tract calculus seen. Stent present within the left hemicolon. Calcified peripancreatic mass, 7 cm, unchanged. Present ascites. Partially calcified portacaval lymph node, unchanged. Loculated right pleural effusion with right lung opacities unchanged. As an impression, they note that the 7 cm leoncio pancreatic mass most likely represents a lymph node and that at less likely arises from the pancreas. The CT scan was done without IV contrast. The patient feels fine and has had some improvement in his dysuria associated with the antimicrobial therapy with the urethral Rouse catheter in place. He is simply wondering at this point, about his potential for discharge home. I explained the interval assessment plan today after his blood transfusions to assess for stability of his blood count as well as the color and character of his urine to determine if operative intervention was required. Physical Examination: The patient is awake, alert, and pleasantly communicative. There was no dyspnea or sign of respiratory distress. His abdomen was soft, nontender, and nondistended. He is uncircumcised without any meatal lesions or evidence of urethral meatal erosion. The 16-[place] urethral Rouse catheter is in place with completely clear yellow urine with maybe only the slightest tinge of blood draining. The last time the catheter was irrigated was 6:40 a.m. according to the patient and as of the time of the assessment performed at 3 p.m. and again at 4 p.m., the urine remained as described. Laboratory Assessment: Hemoglobin 8.4 on admission, declined to 7.7, then to 7.2 before receiving 1 unit of packed cells without an appropriate bump. He is continued on ceftriaxone antimicrobial therapy. He received an additional 2 units of blood with Lasix in between and his hemoglobin increased to 9.1, repeated at 8.9 and then 8.7 over the course of the day with the findings of the color and character of the urine as described above coincident with the hemoglobin of 8.9 and 8.7. Assessment And Plan: This is a 59-year-old gentleman, type 2 diabetic with atrial fibrillation, off anticoagulation and on intermittent hospice for stage IV metastatic colorectal carcinoma with gross hematuria, potentially secondary to a urinary tract infection complicating his underlying situation having only received chemotherapy, a course which he could not describe. Given the clarity of his urine at this time, I would not recommend operative evaluation. I would recommend holding the bladder flushes and irrigation at this time to continue to observe and see if his urine remains clear without any clots or the most light pink. If his hematocrit remains stable in the morning, I initially recommended removing the urethral Rouse catheter at 7 a.m. with a voiding trial commenced, but recalling his 2L urinary retention from a few days earlier, if any question of how well he is voiding by 1-3 p.m. or a urethral Rouse catheter should be reinserted. Followup of the urine culture results for any specific growth should be undertaken, but if no specific growth is found, given his response to the ceftriaxone, recommend Vantin or other oral third generation cephalosporin for the completion of a 10 day course of therapy. Followup should be established in the Urology Clinic within the next 3 weeks for cystoscopy. Further consideration should be given to a GI source for his bleeding and hematocrit drop since the degree of hematuria alone would not typically explain that rapidity of decline, though there may be some bone marrow suppression from his chemotherapy that also inhibits production. WR/MODL Voice ID: [id number] Report ID: [id number] JENNIFER
[2020-11-22] MEDS: MORPHINE *EXTENDED RELEASE* 15 MG TAB PO SCH ×3 (00:37→08:09)
[2020-11-22] MEDS: MORPHINE 4 MG/ML SYR IV PRN ×3 (00:44→11:46)
[2020-11-22 06:24] LABS: Absolute Lymphocytes (CBC) 1.7 K/uL (0.7-4.9); Hematocrit 29.1 % (39.6-49.0); Lymphocytes % 13.6 % (15.3-44.8); MPV 8.1 fL (7.6-11.3); RBC Red Blood Cell Count 3.84 M/uL (4.33-5.43)
[2020-11-22 06:56] LABS: ALT/SGPT 8 U/L (12-78); AST/SGOT 16 U/L (15-37); Alkaline Phosphatase 101 U/L (45-117); BUN Blood Urea Nitrogen 7 mg/dL (7-18); Bicarbonate 30 mmol/L (21-32); Bilirubin Total 0.4 mg/dL (0.2-1.0); Glucose Level 131 mg/dL (74-106); Magnesium 1.9 mg/dL (1.8-2.4); Potassium 3.8 mmol/L (3.5-5.1); Protein, Total 8.1 g/dL (6.4-8.2); Sodium Level 143 mmol/L (136-145)
[2020-11-22] MEDS: INSULIN -REGULAR HUMAN 50 UNIT/0.5 ML ML SQ SCH ×2 (07:30→11:30)
[2020-11-22] MEDS: TAMSULOSIN 0.4 MG SR CAP PO SCH (08:09)
[2020-11-22] MEDS: CEFTRIAXONE/SWI 1gm 1 GM/10 ML SYR IV SCH (08:09)
[2020-11-22 11:20] VITALS: O2SAT 96
--- NOTE | 2020-11-22 13:16 | P.DS ---
Admission Date: 11/19/20 Discharge Date: 11/22/20 Primary Care Provider: Dr. Santiago Disposition: HOSPICE-HOME Discharge Condition: FAIR Reason for Admission: UTI, hematuria Consultations: Urology - Dr. Foy Procedures: CT Abd (11/18): Left adrenal lesions are unchanged. Loculated right pleural effusion with right lung opacities unchanged. A 2.7 cm peripancreatic mass is unchanged. It most likely represents a lymph node, it less likely arises from the pancreas. CXR (11/20): Since 11/12/2020, mild improvement in right lung aeration is seen. Right mid lung consolidation is present with probable small right pleural effusion. No significant left pleural effusion. The heart is normal in size. Right-sided port catheter tip in the SVC. Renal U/S (11/20): Unremarkable renal sonogram. Problem List: UTI, acute cystitis with hematuria complicated by urinary retention Diabetes mellitus type 2, non-insulin dependent Atrial fibrillation not on anticoagulation therapy h/o GI Bleed Stage IV colon cancer on hospice Brief History of Present Illness: 59yo M, PMH: stage IV metastatic colon cancer on hospice, diabetes mellitus type 2, atrial fibrillation formerly on Eliquis presents emergency department for flank pain and blood in urine. Patient was evaluated in the emergency department found to be retaining significant amount of urine, James catheter was placed draining approximately 2 L of bloody urine, James catheter requiring irrigation to facilitate further drainage. Patient was found to have urinary tract infection, urinary retention, hematuria, initial hemoglobin was 8.4, this dropped to 7.7 on recheck. ED provider wishes to admit patient under observation due to hematuria and dropping hemoglobin levels. Currently patient has James catheter in place draining urine with still a moderate amount of hematuria. Transfer was attempted to all acute care facilities in the [place] area which declined due to capacity/diversion. Will admit for further evaluation and management. Hospital Course: Patient's james was maintained during hospitalization with scheduled flushes. His urine studies were suggestive of UTI and he was treated with empiric antibiotics. Urology was consulted. Patient's urine eventually cleared up and hemoglobin was stable. His james catheter was removed and patient was able to void with PVR <100cc. Urine on the morning of discharge was a yellow color, no samuel/obvious hematuria. He is to follow up with Urology as an outpatient in the next 3 weeks for cystoscopy. A long conversation was had with the patient and his . They would like to continue home hospice upon discharge. states patient has been increasingly more confused / having memory issues. She states this makes it difficult at times as they have had multiple discussions and he wants to continue hospice, however, at times he may forget his entire clinical status / prognosis and want more done. Discharged with prescription for Vantin for 7 additional days for a 10 day course. Vital Signs/Physical Exam: Physical Exam Gen: NAD HEENT: normal conjunctiva CV: RRR, no murmr Pulm: diminished at bases bilaterally, R>L , nonlabored on 2 LNC Abd: soft, NTND Ext: no rash, no edema Neuro: confused, dementia, AAOx3 Temp Pulse Resp BP Pulse Ox 97.1 F 108 H 30 H 138/82 94 11/22/20 08:00 11/22/20 08:00 11/22/20 08:00 11/22/20 08:00 11/22/20 08:00 Laboratory Data at Discharge: WBC 12.20 K/uL (4.3-10.9) H 11/22/20 05:51 Hgb 9.2 g/dL (13.6-17.9) L 11/22/20 05:51 Hct 29.1 % (39.6-49.0) L 11/22/20 05:51 Plt Count 495 K/uL (152-406) H 11/22/20 05:51 PT 17.8 SECONDS (9.5-12.5) H 11/21/20 05:14 INR 1.54 11/21/20 05:14 APTT 26.5 SECONDS (24.3-36.9) 11/20/20 16:09 Sodium 143 mmol/L (136-145) 11/22/20 05:51 Potassium 3.8 mmol/L (3.5-5.1) 11/22/20 05:51 BUN 7 mg/dL (7-18) 11/22/20 05:51 Creatinine 0.46 mg/dL (0.55-1.3) L 11/22/20 05:51 Glucose 131 mg/dL (74-106) H 11/22/20 05:51 Phosphorus 4.2 mg/dL (2.5-4.9) 11/21/20 05:14 Magnesium 1.9 mg/dL (1.8-2.4) 11/22/20 05:51 Total Bilirubin 0.4 mg/dL (0.2-1.0) 11/22/20 05:51 AST 16 U/L (15-37) 11/22/20 05:51 ALT 8 U/L (12-78) L 11/22/20 05:51 Alkaline Phosphatase 101 U/L (45-117) 11/22/20 05:51 Lipase 32 U/L (73-393) L 11/18/20 22:53 Home Medications: Hydrocodone Bit/Acetaminophen [Hydrocodon-Acetaminophn 10-325] 1 tab PO Q4H PRN 11/12/20 LORazepam [Lorazepam] 1 mg PO Q4H PRN 11/12/20 Morphine Sulfate [Morphine Sulfate ER] 30 mg PO Q8H 11/12/20 Morphine Sulfate [Roxanol] 0.25 ml PO Q3H PRN 11/12/20 Potassium Oral Tab [Klor-Con 10 mEq Tab*] 20 meq PO BID 11/12/20 Hyoscyamine Sulfate [Levsin TAB*] 1 tab SL Q4H 11/19/20 Tamsulosin [Flomax*] 0.4 mg PO DAILY 11/19/20 Cefpodoxime Proxetil [Vantin] 200 mg PO BID 7 Days #14 tablet 11/22/20 New Medications: Cefpodoxime Proxetil [Vantin] 200 mg PO BID 7 Days #14 tablet Physician Discharge Instructions: Your were found to have urinary retention with some blood. Your urine was suggestive of a urinary tract infection as well. You are discharged on 7 more days of antibiotics to complete a 10 day course. Follow up with Dr. Foy in 3 weeks, please call his office to schedule the appointment. Diet: Regular Activity: Ad naida Followup: NONE,NONE [Primary Care Provider] - Andrzej Foy [ACTIVE - CAN ADMIT] - Time spent managing pt's care (in minutes): 45
[2020-11-22 14:18] VITALS: BP 128/70; TEMP 97.4
== END 2020-11-22 14:34 | disposition hospice, home (50) | DRG 690 ==
LOC: ER 17:07 → ERHOLD 11-19 04:21 → 2ND 11-19 20:20 → OBSVTOIN 11-20 16:45
PROVIDERS: ADMIT Hospitalist; ATTEND Hospitalist
PROC: 30233N1 Transfusion of Nonautologous Red Blood Cells into Peripheral Vein, Percutaneous Approach (ICD-10-PCS; principal; 2020-11-20)
DX: N39.0 Urinary tract infection, site not specified (principal); C18.9 Malignant neoplasm of colon, unspecified; E11.9 Type 2 diabetes mellitus without complications; M10.9 Gout, unspecified; J45.909 Unspecified asthma, uncomplicated; I48.91 Unspecified atrial fibrillation; I10 Essential (primary) hypertension; R31.0 Gross hematuria; R33.9 Retention of urine, unspecified; Z79.01 Long term (current) use of anticoagulants; Z79.4 Long term (current) use of insulin; Z79.899 Other long term (current) drug therapy; Z87.891 Personal history of nicotine dependence; Z66 Do not resuscitate; Z20.822 Contact with and (suspected) exposure to COVID-19
CPT/HCPCS: 36415; 36430; 51702; 71045; 74176; 76377; 76770; 80048; 80053; 80076; 81015; 82550; 82947; 83690; 83735; 84100; 84145; 85014; 85018; 85025; 85027; 85610; 85730; 86850; 86900; 86901; 87040; 87086; 87088; 96365; 96375; 99285; G0378; J0696; J1940; J2405; J3480; J7040; J7050; P9016; U0003

== ENCOUNTER 2020-12-14 01:54 | Emergency (ER) | payer OTHER ==
[2012-04-08 05:43] VITALS: BP 153/87
--- NOTE | 2020-12-14 03:02 | EDPHYS ---
Physician Documentation [facility] Name: Shai Gonzalez Jr Age: 60 yrs Sex: Male : 1960 Arrival Date: 12/14/2020 Time: 01:55 Bed 4 Private MD: ED Physician Mookie Leos HPI: 12/14 03:18 This 60 yrs old Black Male presents to ER via Unassigned with complaints of CPR. rn 03:18 Preceding the arrest, the patient was found down by family. The arrest occurred at rn home. Pre-hospital course: EMS care prior to arrival: initiation of ACLS, intubation EMS on scene time was 15 minutes were spent at scene. Time elapsed prior to ACLS is unknown. ACLS has been in progress for an unknown time. It is unknown whether or not the patient has had similar symptoms in the past. It is unknown whether or not the patient has recently seen a physician. Per EMS, family member last saw patient last night, when got up, went to check on him and was laying in bed, unresponsive, no pulse when PD arrived, started CPR, and still pulseless when EMS arrived. Placed David tube. No IV. No response. . - Family history:: not pertinent. - Hospitalizations: : No recent hospitalization is reported. ROS: 03:18 Unable to obtain ROS due to comatose state. rn Exam: 03:18 Constitutional: cachectic male, GCS 3, intubated Head/Face: Normocephalic, rn atraumatic. ENT: No oral trauma Cardiovascular: No Spont pulse Respiratory: NO spont breaths, + equal bilaterally with bagging Abdomen/GI: soft, + mild distension Skin: No cyanosis MS/ Extremity: NO pulses, cool extremities Neuro: GCs 3, intubated Procedures: 03:18 CPR: See CPR flow sheet. Initial patient assessment: unresponsive, no respiratory rn effort, intubated, Ambu ventilation, pulses present w/ compressions, The presenting cardiac rhythm is asystole. Compressions: began prior to arrival. despite ED evaluation and treatment, the patient . Family notified. CPR was stopped at 03:00. MDM: 03:01 Patient medically screened. rn 03:18 Differential diagnosis: arrythmia, cardiac arrest, respiratory arrest. Data reviewed: rn vital signs, nurses notes, and as a result, I will discharge patient. Response to treatment: There is no appreciated change of the patient's symptoms at this time. ED course: Due to time change, and addition of an hour, TOD was 0300.. Administered Medications: No medications were administered Disposition: 03:18 . rn Disposition: Patient pronounced on 12/14/20 03:00 by Mookie Leos. Impression: Cardiac arrest. - Released to Home. Signatures: Mookie Leos MD MD rn Habalo, Winsy, RN RN Corrections: (The following items were deleted from the chart) 03:07 03:02 12/14/2020 03:02 Patient pronounced on 12/14/2020 at 01:00 by Mookie Leos. rn Impression: Cardiac arrest. Released to Home. tammy 05:05 03:07 12/14/2020 03:02 Patient pronounced on 12/14/2020 at 03:00 by Mookie Leos. Impression: Cardiac arrest. Released to Home. rn
--- OUTSIDE RECORDS SUMMARY | 2020-12-14 03:02 | XMS REPORT | Continuity of Care Document ---
:1960 Author Organization [facility] t Address [address] [place] [address] [address]. [address] [place] [address] Care Team Providers Name Role Phone Adryan Santiago Kylie Primary Care Physician Altaf TORRE Attending Clinician Josey Desir MD Attending Clinician Rubia TORRE Attending Clinician Thais Mckinley MD Attending Clinician Ayana Mansfield MD Attending Clinician JOSEY DESIR Attending Clinician Unavailable Altaf TORRE Attending Clinician Roberta Mcelroy Attending Clinician SALVADOR RAI Attending Clinician Unavailable Salvador Rai MD Attending Clinician Shana TORRE Attending Clinician Efe Figueredo MD Attending Clinician Janie Swift Attending Clinician Sharron TORRE Attending Clinician Clark Sands MD Attending Clinician Joaquin Mason MD Attending Clinician Stefanie Sneed CRNA Attending Clinician Ron Sands MD Attending Clinician SHARRON Attending Clinician Unavailable ALTAF Attending Clinician Unavailable Alireza Hunt MD Attending Clinician [address], [address] Room Attending Clinician Unavailable Maile Bennett NP Attending Clinician Lor Goldberg MD Attending Clinician Caridad Preston MD Attending Clinician Marguerite TORRE Attending Clinician Ariadna Young MD Attending Clinician LOR GOLDBERG Attending Clinician Unavailable Johny TORRE Attending Clinician JOSEY IRIZARRY Attending Clinician Unavailable BRYANT SPARKS Attending Clinician Unavailable Mc ALVARADO Attending Clinician Unavailable RUBIA Admitting Clinician Unavailable SALVADOR RAI Admitting Clinician Unavailable CLARK SANDS Admitting Clinician Unavailable ALTAF Admitting Clinician Unavailable SANTOSH Admitting Clinician Unavailable MARGUERITE Admitting Clinician Unavailable BRYANT SPARKS Admitting Clinician Unavailable Mc ALVARADO Admitting Clinician Unavailable Payers Payer Name Policy Type Policy Effective Date Expiration Date [facility] Number AMBETTERAMBETTER [id number] [facility] [id number] 00:00:00 - Medical /2019-Present [place] Problems Condition Condition Condition Status Onset Resolution Last Treating Co mments Source Name Details Category Date Date Treatment Clinician Date Drug-induc Drug-induc Disease Active [facility] ed ed 2-01 [facility] - constipati constipati 00:00: Me dical on on [place] Cancer Cancer Disease Active [facility] related related 1- [facility] - pain pain 00:00: Medical 00 [place] Fecal Fecal Disease Active [facility] impaction impaction 1- [facility] - 00:00: Medical 00 [place] 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[address] [facility] 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 00:00: [facility] jessica pleural pleural 00 [place] effusion effusion s/p R VATS s/p R VATS decorticat decorticat ion, ion, pleural pleural biopsy biopsy 09/30/2020 09/30/2020 Abdominal Abdominal Disease Active 2019-[address] [facility] pain pain 1-18 [facility] - 00:00: Medical 00 [place] Multiple Multiple Disease Active [facility] subsegment subsegment 7-22 [facility] k[facility] - al al 00:00: Medical pulmonary pulmonary 00 Cent er emboli emboli without without acute cor acute cor pulmonale pulmonale Colon Colon Disease Active 2017-[address] [facility] [address] adenocarci adenocarci 2-09 [facility] k[facility] - noma noma 00:00: Medical 00 [place] Benign Benign Disease Active 2017-[address] [facility] [address] prostatic prostatic 0-14 [facility] - hyperplasi hyperplasi 00:00: Me dical a a 00 Center Diabetes Diabetes Disease Active 2017-10 [facility] mellitus mellitus 0-14 [facility] - 00:00: Medical 00 [place] Essential Essential Disease Active 2017-[address] [facility] hypertensi hypertensi 0-14 Nie[facility] k[facility] - on on 00:00: Medical 00 Center Descending Descending Disease Active 2017-[address] colon CA colon CA 0-14 [facility] - s/p GI s/p GI 00:00: Medical stent stent 00 [place] 07/15/18 07/15/18 Large Large Disease Active 2017-[address] [facility] bowel bowel 0-14 [facility] - obstructio obstructio 00:00: Ga dical n n 00 Center Hypokalemi Hypokalemi Disease Active 2017-[address] a a 0-14 [facility] - 00:00: Medical 00 Center Morbid Morbid Disease Active 2017-[address] [facility] [address] obesity obesity 0-13 [facility] - 00:00: Medical 00 Center Pneumonia Pneumonia Disease Active 2017-[address] [facility] 0-12 [facility] - 00:00: Medical 00 Center History of History of Disease Active [facility] gout gout 4-11 [facility] - 00:00: Medical 00 Center Adrenal Adrenal Disease Active [facility] mass, left mass, left 4-18 [facility] k[facility] - 00:00: Medical 00 [place] Pleural Pleural Disease Resolve 2019-2020-10-01 2020-10-[address] effusion, effusion, d 2- 00:00:00 10:41:37 [facility] - right right 00:00: Medical 00 [place] Acute Acute Disease Resolve 2020-10-01 2020-10-[address] chest pain chest pain d 04-22 00:00:00 10:41:56 [facility] - 00:00: Medical 00 [place] SOB SOB Disease Resolve 2020-10-01 2020-10-[address] (shortness (shortness d 10-23 00:00:00 10:41:59 [facility] - of breath) of breath) 00:00: Me dical 00 [place] Recurrent Recurrent Disease Resolve 2020-10-01 2020-10-[address] pleural pleural d 10-23 00:00:00 10:41:52 [facility] - effusion effusion 00:00: Medica l on right on right 00 [place] Allergies, Adverse Reactions, Alerts This patient has no known allergies or adverse reactions. Family History Family Member Diagnosis Comments Start Date Stop Date Source Natural father Cancer [facility] Social History Social Habit Start Date Stop Date Quantity Comments Source History of Current smoker [facility] tobacco use [facility] Cent[facility] r Sex Assigned At [facility] Tobacco use and 2020-10-01 2020-10-01 Never used [facility] - exposure 00:00:00 00:00:00 [facility] Alcohol intake 2020-10-01 2020-10-01 Current drinker [facility] Andrea Mccurdy - 00:00:00 00:00:00 of alcohol [facility] (finding) Alcohol Comment 2019-10-23 2019-10-[address] [facility] - 00:00:00 00:00:00 [facility] Smoking Status Start Date Stop Date Source Former smoker 2020-10-01 00:00:00 2020-10-01 00:00:00 [facility] Medications Ordered Filled Start Stop Current Ordering Indication Dosage Frequency Signature Comments Components Source Medication Medication Date Date Medication? Clinician (SIG) Name Name tamsulosin Yes .4mg QD Take 0.[address] [facility] (FLOMAX) 2-04 mg by [facility] - 0.4 mg Cap 19:59: mouth Medica l 24 hr 37 daily. [place] capsule glimepiride Yes 4mg Q.5D Take [address] (AMARYL) 4 2-04 by mouth 2 Amy es - MG tablet 19:59: (two) Medical 37 times Center daily . linaGLIPtin Yes 5mg QD Take [address] (TRADJENTA) 2-04 by mouth Luke s - 5 mg Tab 19:59: daily. Medical 37 Center morphine 0 Yes 15mg Q.5D Take 15 mg [facility] [...] by mouth [facility]ukes - tablet 19:59: daily. [facility] 37 Center enoxaparin 2020- No deep venous 120mg Q.5D Inject [address] (LOVENOX) 2-04 02-04 thrombosis mg Amy es - 120 mg/0.8 14:41: 00:00 subcutaneo Medical mL Syrg 40 :00 usly 2 Center (two) times daily. ergocalcife 2020- No [id number] Take [facility] rol 2-04 02-04 50,000 [facility] - (Vitamin 14:41: 00:00 Units by Medi jessica D2) 1,250 40 :00 mouth Center mcg (50,000 every 30 unit) (thirty) capsule days. lactulose Yes 20g Q.[id number] Take [address] (CHRONULAC) 2-04 [id number] mLs (20 g [facility]ukes - 20 gram/30 00:00: 3D total) by Me dical mL solution 00 mouth 3 Cente r (three) times daily. HYDROcodone 2019-10- No 1{tbl} Take [address] -acetaminop 2-31 - tablet by Niecy mixon (NORCO 16:16: 00:00 [...] Daily Amount: 6 tablets gabapentin 2019-10 300mg Q.[id number] Take [address] (NEURONTIN) 10-16 [id number] capsule [facility]ukes - 300 MG 00:00: 23:59 3D (300 mg Medical capsule 00 :00 total) by Center mouth 3 (three) times daily for 14 days. amoxicillin 2019-10 1{tbl} Take [address] -clavulanat 10-07 tablet by Niecy tolbert 00:00: 23:59 mouth Medical (AUGMENTIN) 00 :00 every 12 Cent er 875-125 mg (twelve) per tablet hours for 5 days. metoprolol 2019-10 25mg Q.5D Take [address] succinate 1-20 11-02 tablet (25 Amy es - (TOPROL-XL) 00:00: 00:00 mg total) Medical 25 MG 24 hr 00 :00 by mouth 2 Ce nter tablet (two) times daily. polyethylen 2019-10 No 17g QD Take [address] e glycol 1-20 12-20 by mouth [facility]ukes - (GLYCOLAX) 00:00: 23:59 daily for M edical 17 gram 00 :00 30 days. Center packet amLODIPine No 10mg QD Take [address] (NORVASC) - 07-27 by mouth [facility] - 10 MG 07:49: 00:00 daily. Medical tablet 09 :00 Center digoxin 2019- No 125ug QD Take [address] [facility] (LANOXIN) - 10-25 tablet [facility]ukes - 0.125 MG 00:00: 23:59 (125 mcg Medi jessica tablet 00 :00 total) by Center mouth daily for 90 days. metoprolol 2019- No 50mg QD Take [address] succinate 04-28 10-25 tablets [facility]ukes - (TOPROL-XL) 00:00: 23:59 (50 mg Med ical 25 MG 24 hr 00 :00 total) by [facility] ter tablet mouth daily for 90 days. digoxin 2019- No 125ug QD Take [address] (LANOXIN) 04-28 tablet [facility]ukes - 0.125 MG 00:00: 00:00 (125 mcg Medi jessica tablet 00 :00 total) by Center mouth daily. metoprolol No 25mg QD Take [address] [facility] [facility] [...] 2019- No 150mg Inject [facility] (LOVENOX) 04-25 0.97 mLs [facility]ukes - 150 mg/mL 00:00: [...] :00 nightly. Center per tablet aspirin 81 2020- No 81mg QD Take [address] [facility] MG EC 10-27 tablet (81 [facility] - tablet 00:00: 23:59 mg total) Medic al 00 :00 by mouth Center daily. traMADol 2019- No 50mg Take [address] [facility] (ULTRAM) 50 10-27 tablet (50 L ukes - mg tablet 00:00: 00:00 mg total) Me dical 00 :00 by mouth Center every 6 (six) hours as needed. Max Daily Amount: 200 mg metoprolol 2019- No 25mg Q.5D Take [address] (LOPRESSOR) 10-27 tablet (25 L ukes - 25 MG 00:00: 00:00 mg total) Medica l tablet 00 :00 by mouth 2 Center (two) times daily. sotalol AF No 80mg Q.5D Take [address] (BETAPACE 10-27 tablet (80 Amy es - AF) 80 MG 00:00: 00:00 mg total) Me dical tablet 00 :00 by mouth 2 Center (two) times daily. Immunizations Ordered Immunization Filled Immunization Date Status Commen ts Source Name Name Pneumococcal 2018-07-20 Completed [facility] - Conjugate (Prevnar) 00:00:00 Medic al Center 13-Valent Influenza Four-QIV 2018-07-20 Completed [facility] - Non-PF 5+ YR 00:00:00 Medical Cent er Vital Signs Vital Name Observation Time Observation Value Comments Source Systolic blood 2020-11-06 15:00:00 127 mm[Hg] [facility] Diastolic blood 2020-11-06 15:00:00 70 mm[Hg] [facility] S t [facility] Heart rate 2020-11-06 15:00:00 107 /min [facility] Body temperature 2020-11-06 15:00:00 36.72 Stefany [facility] Respiratory rate 2020-11-06 15:00:00 13 /min [facility] Oxygen saturation in 2020-11-06 15:00:00 94 /min [facility] Arterial blood by Medical Ce nter Pulse oximetry Body weight 2020-11-02 12:24:00 114.216 kg [facility] BMI 2020-11-02 12:24:00 35.13 kg/m2 [facility] Body height 2020-11-02 10:50:00 180.3 cm [facility] Procedures Procedure Date / Time Performing Clinician Source Performed POCT-GLUCOSE METER 2020-11-06 11:32:00 Sonia Mansfield [facility] POCT-GLUCOSE METER 2020-11-06 07:30:00 Sonia Mansfield [facility] CBC W/PLT COUNT & AUTO 2020-11-06 04:32:00 Sonia Mansfield [facility] POCT-GLUCOSE METER 2020-11-06 00:02:00 Sonia Mansfield [facility] CBC (HEMOGRAM ONLY) 2020-11-05 18:11:00 Samir Johnson [facility] POCT-GLUCOSE METER 2020-11-05 17:26:00 Sonia Mansfield [facility] POCT-GLUCOSE METER 2020-11-05 12:02:00 Sonia Mansfield [facility] POCT-GLUCOSE METER 2020-11-05 07:44:00 Sonia Mansfield [facility] HEMOGLOBIN AND HEMATOCRIT 2020-11-05 06:05:00 [facility] PO[facility]-GLUCOSE METER 2020-11-05 05:32:00 MckinleyaMrla [facility] POCT-GLUCOSE METER 2020-11-04 23:05:00 MckinleyMarla [facility] HEMOGLOBIN AND HEMATOCRIT 2020-11-04 22:22:00 Ashley Quintero [facility] POCT-GLUCOSE METER 2020-11-04 17:35:00 Mckinley, Marla Plascencia [facility] HEMOGLOBIN AND HEMATOCRIT 2020-11-04 14:00:00 Ashley Quintero [facility] POCT-GLUCOSE METER 2020-11-04 12:01:00 [facility] ONLY[facility] 2020-11-04 04:05:00 [facility] APTT 2020-11-04 04:05:00 Rubia [facility] POCT-GLUCOSE METER 2020-11-03 23:31:00 Mckinley, [facility] HEMOGLOBIN AND HEMATOCRIT 2020-11-03 22:38:00 Mckinley, [facility] APTT 2020-11-03 22:38:00 Rubia [facility] TYPE AND SCREEN, AUTOMATED 2020-11-03 22:38:00 Mckinley, [facility] POCT-GLUCOSE METER 2020-11-03 17:39:00 Mckinley, [facility] CT ABDOMEN/PELVIS WITH IV 2020-11-03 16:29:00 Ashley Quintero [facility] CT CHEST WITH IV CONTRAST 2020-11-03 16:29:00 Ashley Quintero [facility] APTT 2020-11-03 13:17:00 Rubia [facility] POCT-GLUCOSE METER 2020-11-03 12:10:00 Mckinley, [facility] CBC W/PLT COUNT & AUTO 2020-11-03 05:47:00 Rubia [facility] BASIC METABOLIC PANEL (7) 2020-11-03 05:47:00 Samir Johnson I [facility] APTT 2020-11-03 05:47:00 Rubia [facility] POCT-GLUCOSE METER 2020-11-03 05:30:[address] [facility] APTT 2020-11-02 23:46:00 Rubia [facility] POCT-GLUCOSE METER 2020-11-02 23:44:[address] [facility] POCT-GLUCOSE METER 2020-11-02 17:40:[address] [facility] POCT-GLUCOSE METER 2020-11-02 12:20:[address] [facility] CBC W/PLT COUNT & AUTO 2020-11-02 09:50:00 Rubia [facility] COMPREHENSIVE METABOLIC 2020-11-02 09:50:00 Rubia [facility] PROTHROMBIN TIME/INR 2020-11-02 09:50:00 [facility] APTT 2020-11-02 09:50:00 Rubia [facility] XR CHEST 2 VIEWS 2020-10-09 07:51:00 Rnia Mcelroy [facility] POCT-GLUCOSE METER 2020-10-02 16:38:00 Tarun Raincer [facility] POCT-GLUCOSE METER 2020-10-02 13:11:00 Tarun Rai [facility] XR CHEST 1 VIEW 2020-10-02 10:58:00 [facility]BED[facility] XR CHEST 1 VIEW 2020-10-02 06:47:00 [facility] PORTABLE/BEDSIDE [facility] BASIC METABOLIC PANEL (7) 2020-10-02 04:16:[address] [facility] MAGNESIUM 2020-10-02 04:16:00 Twila Ellis [facility] CBC W/PLT COUNT & AUTO 2020-10-02 04:16:00 [facility]FF) 2020-10-02 04:16:[address] [facility] PREPARE LEUKO-REDUCED RBC 2020-10-01 23:54:00 [facility] PO[facility]UCOSE METER 2020-10-01 11:22[facility]00 [facility]SE [facility]ER 2020-10-01 07:30:00 Traun aRi [facility] BASIC METABOLIC PANEL (7) 2020-10-01 04:04:[address] [facility] MAGNESIUM 2020-10-01 04:04:00 Caleb [facility] CBC W/PLT COUNT & AUTO 2020-10-01 04:04:00 [facility] DIFFERENTIAL [facility] (CELLAVISION MANUAL DIFF) 2020-10-01 04:04:00 Dinorah Sands [facility] XR CHEST 1 VIEW 2020-10-01 01:09:[address] [facility] POCT-GLUCOSE METER 2020-09-30 23:48:00 Tarun Rai [facility] CBC (HEMOGRAM ONLY) 2020-09-30 22:58:00 Caleb [facility] TRANSFUSE LEUKO-REDUCED 2020-09-30 21:37:19 C[facility] RED BLOOD CELLS [facility] TROPONIN I 2020-09-30 18:04:00 [facility]OLIC PANEL (7) 2020-09-30 18:04:[address] [facility] MAGNESIUM 2020-09-30 18:04:00 Caleb [facility] PREPARE LEUKO-REDUCED RBC 2020-09-30 17:58:[address] [facility] ECG 12-LEAD 2020-09-30 17:14:05 Unknown, 7 [facility] ECG 12-LEAD 2020-09-30 17:13:49 Unknown, 7 [facility] POCT-GLUCOSE METER 2020-09-30 16:34:00 Tarun Rai [facility] HEMOGLOBIN AND HEMATOCRIT 2020-09-30 16:31:[address] [facility] POCT-GLUCOSE METER 2020-09-30 13:51:00 Tarun Rai [facility] HGB/HCT (H&H) - STAT LAB 2020-09-30 11:57:00 Tarun Rai [facility] CT CHEST WITHOUT IV 2020-09-30 11:11:00 April Ramírez I [facility] XR CHEST 1 VIEW 2020-09-30 10:30:00 [facility] GLUCOSE 2020-09-30 10:15:00 Lenora Saldana [facility] POTASSIUM 2020-09-30 10:15:00 Shana [facility] HEMOGLOBIN AND HEMATOCRIT 2020-09-30 10:15:00 Shana kin CARDENAS [facility] CBC (HEMOGRAM ONLY) 2020-09-30 10:15:00 Noé [facility] BASIC METABOLIC PANEL (7) 2020-09-30 10:15:00 Noé [facility] PHOSPHORUS 2020-09-30 10:15:00 oNé [facility] MAGNESIUM 2020-09-30 10:15:00 Noé [facility] PT/APTT 2020-09-30 10:15:00 Noé [facility] CALCIUM, IONIZED 2020-09-30 10:15:00 [facility] TISSUE EXAM 2020-09-30 09:05:00 Tarun Rai [facility] GLUCOSE-STAT LAB 2020-09-30 08:59:45 Jocelyn Saldanaan [facility] HGB/HCT (H&H) - STAT LAB 2020-09-30 08:59:[address] [facility] POCT-GLUCOSE METER 2020-09-30 07:26:00 Tarun Rai [facility] BRONCHOSCOPY 2020-09-30 07:09:00 Tarun Rai [facility] THORACOSCOPY (VATS) 2020-09-30 07:09:00 Fredi Tarun [facility] POCT-GLUCOSE METER 2020-09-30 05:42:00 Fredi Tarun [facility] XR CHEST 2 VIEWS 2020-09-29 12:19:00 Lalita Quintanilla [facility] TYPE AND SCREEN, AUTOMATED 2020-09-29 11:52:00 Lalita Quintanilla and [facility] SARS-COV2/RT-PCR ([facility] & 2020-09-29 11:47:00 Rosemary Swift [facility] - REF LABS) [facility] POCT-GLUCOSE METER 2020-08-22 09:17:00 Samir Johnson [facility] CBC W/PLT COUNT & AUTO 2020-08-22 06:22:00 Daiana Hartman [facility] BASIC METABOLIC PANEL (7) 2020-08-22 06:22:00 Daiana Hartman sa [facility] POCT-GLUCOSE METER 2020-08-21 21:18:00 Samir Johnson [facility] POCT-GLUCOSE METER 2020-08-21 15:26:00 Samir Johnson [facility] REPORT OF PROCEDURE - 2020-08-21 14:17:41 Julius Sands I [facility] - ENDOSCOPY [facility] [place] FLUORO NON-SPECIFIC UP 2020-08-21 13:55:00 Julius Sands [facility] - TO 1 HOUR [facility] SIGMOIDOSCOPY,FLEX W/STENT 2020-08-21 12:55:00 Julius Sands [facility] PROCEDURE W/ C-ARM 2020-08-21 12:55:00 Julius Sands [facility] POCT-GLUCOSE METER 2020-08-21 07:29:00 Facundo Johnsonok [facility] BASIC METABOLIC PANEL (7) 2020-08-21 05:31:00 Swati Ralph [facility] CBC W/PLT COUNT & AUTO 2020-08-21 05:31:00 Swati Ralph [facility] DIFFERENTIAL [facility] ECG 12-LEAD 2020-08-20 12:53:13 Unknown, Hl7 [facility] SARS-COV2/RT-PCR ([facility] & 2020-08-20 12:41:00 Daiana Hartman [facility] - REF LABS) [facility] CT ABDOMEN/PELVIS WITH IV 2020-08-20 11:53:00 Wojciech Mcdermott I [facility] CBC W/PLT COUNT & AUTO 2020-08-20 10:07:00 Wojciech Mcdermott [facility] COMPREHENSIVE METABOLIC 2020-08-20 10:07:00 Sharron [facility] LIPASE 2020-08-20 10:07:00 [facility]ron [facility] LACTIC ACID, VENOUS 2020-08-20 10:07:00 Sharron [facility] URINALYSIS W/ REFLEX URINE 2020-08-20 10:07:[address] [facility] CULTURE [facility] TROPONIN I 2020-08-20 10:07:00 Sharron [facility] ED ECG INTERPRETATION 2020-08-20 09:50:55 Sharron [facility] ECG 12-LEAD 2020-08-20 09:44:38 Unknown, Hl7 [facility] REPORT OF PROCEDURE - 2020-08-20 00:00:00 Provider, Germaine [facility] - ENDOSCOPY SCAN Scanning [facility] XR CHEST 1 VIEW 2020-06-16 11:23:00 Musher, [facility] PORTABLE/BEDSIDE Medical [facility] IR REMOVAL INDWELLING 2020-06-16 09:30:00 Miguel Bennett I [facility] TUNNELED PLEURAL CATH Medical Ce nter W/CUFF CBC W/PLT COUNT & AUTO 2020-06-16 08:25:00 Sheila Guerra [facility] APTT 2020-06-16 08:25:00 Puneet Guerrassica [facility] PROTHROMBIN TIME/INR 2020-06-16 08:25:00 Sheila Guerra [facility] CT CHEST WITH IV CONTRAST 2020-06-05 09:25:00 Kyle Solitario [facility] CT ABDOMEN/PELVIS WITH IV 2020-06-05 09:25:00 Kyle Solitario [facility] XR CHEST 2 VIEWS 2020-05-12 13:29:00 Altaf [facility] RHYTHM STRIP - SCAN 2020-04-29 14:02:04 Germaine Meyer [facility] POCT-GLUCOSE METER 2020-04-28 11:11:00 [facility] POCT-GLUCOSE METER 2020-04-28 09:01:00 [facility] MAGNESIUM 2020-04-28 05:15:00 Norberto [facility] PHOSPHORUS 2020-04-28 05:15:00 Norberto [facility] CBC (HEMOGRAM ONLY) 2020-04-28 05:15:00 [facility] BASIC METABOLIC PANEL (7) 2020-04-28 05:15:00 [facility] POCT-GLUCOSE METER 2020-04-27 21:30:00 [facility] POCT-GLUCOSE METER 2020-04-27 16:55:00 [facility] POCT-GLUCOSE METER 2020-04-27 11:05:00 [facility] ricacorazon [facility] POCT-GLUCOSE METER 2020-04-27 07:49:00 Civunigucorazona, [facility] MAGNESIUM 2020-04-27 06:44:00 Norberto [facility] PHOSPHORUS 2020-04-27 06:44:00 Norberto [facility] BASIC METABOLIC PANEL (7) 2020-04-27 06:44:00 Alber Vazquez [facility] POCT-GLUCOSE METER 2020-04-26 21:10:00 Civunigunta, [facility] POCT-GLUCOSE METER 2020-04-26 18:00:00 Civunigunta, [facility] POCT-GLUCOSE METER 2020-04-26 12:48:00 Civunigunta, [facility] POCT-GLUCOSE METER 2020-04-26 08:37:00 Civunigucorazona, [facility] MAGNESIUM 2020-04-26 06:02:00 Norberto [facility] PHOSPHORUS 2020-04-26 06:02:00 Norberto [facility] DIGOXIN LEVEL 2020-04-26 06:02:00 Blas Freitas [facility] POCT-GLUCOSE METER 2020-04-25 22:12:00 Civunigunta, [facility] POCT-GLUCOSE METER 2020-04-25 16:03:00 [facility] POCT-GLUCOSE METER 2020-04-25 12:35:00 [facility] HEPARIN ASSAY - LOW 2020-04-25 10:00:00 Margarito Preston I [facility] POCT-GLUCOSE METER 2020-04-25 08:42:00 Civunigunta, [facility] POCT-GLUCOSE METER 2020-04-25 05:24:00 Civunigua, [facility] BASIC METABOLIC PANEL (7) 2020-04-25 05:02:00 GurpreetTamra kaba [facility] CBC W/PLT COUNT & AUTO 2020-04-25 05:02:00 Tamra Winston Formerly [facility] [facility] MAGNESIUM 2020-04-25 05:02:00 [facility] 2020-04-25 05:02:00 Norberto [facility] POCT-GLUCOSE METER 2020-04-24 23:26:00 Zhou Blake [facility] POCT-GLUCOSE METER 2020-04-24 11:00:00 Kary Margarito [facility] POCT-GLUCOSE METER 2020-04-24 05:52:00 Margarito Preston [facility] BASIC METABOLIC PANEL (7) 2020-04-24 03:21:00 TishTamra [facility] CBC W/PLT COUNT & AUTO 2020-04-24 03:21:00 TishTamra [facility] MAGNESIUM 2020-04-24 03:21:00 Norberto [facility] PHOSPHORUS 2020-04-24 03:21:00 Norberto [facility] TSH/FREE T4 IF INDICATED 2020-04-24 03:21:00 Irvin Win [facility] HEMOGLOBIN A1C 2020-04-24 03:21:00 Blas Freitas [facility] POCT-GLUCOSE METER 2020-04-24 02:15:00 Margarito Preston [facility] HEPATIC FUNCTION PANEL 2020-04-23 20:21:00 Irvin Win [facility] B-TYPE NATRIURETIC FACTOR 2020-04-23 20:21:00 Jayjay Aldrich [facility] (BNP) [facility] TROPONIN I 2020-04-23 20:21:00 Jayjay Aldrich [facility] ECG 12-LEAD 2020-04-23 18:52:30 Unknown, Hl7 [facility] ECG 12-LEAD 2020-04-23 18:49:58 Unknown, Hl7 [facility] POCT-GLUCOSE METER 2020-04-23 16:52:00 [facility] PT/APTT 2020-04-23 10:37:00 Abe Figueroa [facility] PROCALCITONIN 2020-04-23 09:17:00 Nikki Dimas [facility] POCT-GLUCOSE METER 2020-04-23 09:15:[address] [facility] APTT 2020-04-23 05:05:00 [facility] BASIC METABOLIC PANEL (7) 2020-04-23 05:04:00 Tamra Winston [facility] CBC W/PLT COUNT & AUTO 2020-04-23 05:04:00 Tamra Winston [facility] MAGNESIUM 2020-04-23 05:04:00 Norberto [facility] PHOSPHORUS 2020-04-23 05:04:00 Norberto [facility] 2D ECHO W/ DOPPLER 2020-04-23 02:09:23 Tamra Winston [facility] (CW/PW/COLOR) [facility] BLOOD GAS, ARTERIAL 2020-04-23 01:01:00 Raulito Jacome [facility] LACTIC ACID, VENOUS 2020-04-22 22:32:00 Bijal Goldberg [facility] APTT 2020-04-22 22:32:[address] [facility] BLOOD CULTURE 2020-04-22 22:31:[address] [facility] TROPONIN I 2020-04-22 22:31:[address] [facility] CBC (HEMOGRAM ONLY) 2020-04-22 22:31:[facility] DESIGN 2020-04-22 21:42:00 [facility] VENOUS DOPPLER LEGS 2020-04-22 21:07:00 Bijal Goldberg [facility] CRITICAL CARE 2020-04-22 20:42:13 [facility] SARS-COV2/RT-PCR ([facility] & 2020-04-22 20:41:00 [facility] D-DIMER 2020-04-22 19:37:00 [facility] CBC W/PLT COUNT & AUTO 2020-04-22 19:37:00 Bijal Goldberg [facility] BASIC METABOLIC PANEL (7) 2020-04-22 19:37:00 Bijal Goldberg [facility] LACTIC ACID, VENOUS 2020-04-22 19:37:00 [facility] PT[facility]TT 2020-04-22 19:37:00 [facility] B-TYPE NATRIURETIC FACTOR 2020-04-22 19:37:[address] [facility] (BNP) [facility] TROPONIN I 2020-04-22 19:37:[address] [facility] XR CHEST 1 VIEW 2020-04-22 19:16:00 Bijal Goldberg [facility] PORTABLE/BEDSIDE [facility] ECG 12-LEAD 2020-04-22 18:25:30 Irvin Win [facility] IR TUNNELED CATH 2020-04-07 10:06:00 Kyle Solitario [facility] CBC W/PLT COUNT & AUTO 2020-04-07 06:43:00 Sheila Guerra [facility] PROTHROMBIN TIME/INR 2020-04-07 06:43:00 Charlie Sheila Lebron Benito [facility] APTT 2020-04-07 06:43:00 Puneet Guerrassica [facility] CT ABDOMEN/PELVIS WITH IV 2020-03-13 07:23:00 Kyle Solitario [facility] CT CHEST WITH IV CONTRAST 2020-03-13 07:23:00 Kyle Solitario [facility] CT CHEST WITH IV CONTRAST 2020-01-18 08:20:00 Kyle Solitario [facility] CT ABDOMEN/PELVIS WITH IV 2020-01-18 08:20:00 Kyle Solitario [facility] POCT-CREATININE 2020-01-18 07:59:00 Kyle Solitario [facility] Plan of Care Planned Activity Planned Date Details Comments Source Future Scheduled 2028-09-11 Screening for [facility] - Test 00:00:00 malignant neoplasm of [facility] colon (procedure) [code = 145105658] Future Scheduled 2022-05-[address] [facility] - Test 00:00:00 (procedure) [code = [facility] 39064487] Future Scheduled 2020-10-[address] [facility] - Test 00:00:00 [facility] (procedure) [code = 55157793] Future Scheduled 2020-10-[address] [facility] - Test 00:00:00 (12+) [code = [facility] DEPRESSION SCREENING (12+)] Future Scheduled 2020-06-03 INFLUENZA VACCINE (#1) [facility] Test 00:00:00 [code = INFLUENZA Medical nter VACCINE (#1)] Future Scheduled 2020-05-23 Urine screening for [facility] - Test 00:00:00 protein (procedure) [facility] [code = 764627596] Future Scheduled 2018-09-[address] [...] 00:00:00 examination Medical Center (regime/therapy) [code = 601012274] Encounters Start End Encounter Admission Attending Care Care Encounter Source Date/Time Date/Time Type Type Clinicians Facility Department ID 2020-11-10 2020-11-10 Office Altaf [facility] [id number] 19 09:27:07 10:23:07 Visit Kyle Villa [id number] 2020-01-30 2020-01-30 [facility] [id number] 08:24:26 13:41:01 ne Visit Danny Mcguire [id number] Lorenzo [id number] Bria [id number] [address] Results Test Description Test Time Test Comments Results Result Comments Source POC-Glucose meter 2020-11-06 12:42:00 Test Item Value Reference Range Interpretation Comme nts POC-Glucose Meter (test code = 151 mg/dL 70-110 H : TESTED AT [facility] [address]) [facility], [facility] 30: Machine Paint Mixer/Techni patrick ID = [id number] for YAMEL LAW EM Lab Interpretation (test code = Abnormal 61207-2) [facility] [id number] 12:42:00 Test Item Value Reference Range Interpretation Comments POC-GLUCOSE METER 151 mg/dL 70-110 H : TESTED A T [facility] [address] (BEAKER) (test code = NAMITA [place]ant[place], 1538) [address]: Machine Paint Mixer/Techni patrick ID = [id number] for CHASE SHERIDAN POCT-GLUCOSE [id number] 07:56:00 Test Item Value Reference Range Interpretation Comments POC-GLUCOSE METER 102 mg/dL 70-110 : TESTED A T [facility] [address] (ZACHARY) (test code = NAMITA Brantley [place], 1538) [address]: Machine Paint Mixer/Techni patrick ID = [id number] for CHASE SHERIDAN CBC with platelet count + automated [id number] 05:49:00 Test Item Value Reference Range Interpretation Comments WBC (test code = 6690-2) 6.4 See_Comment [A utomated message] The system [employer] generated this result transmitted ref erence range: 3.5 - 10 .5 K/L. The refe rence range was not u sed to interpret this result as normal/abnor mal. RBC (test code = 789-8) 3.32 See_Comment L [Au tomated message] The system [employer] generated this result transmitted ref erence range: 4.63 - 6 .08 M/L. The refe rence range was not u sed to interpret this result as normal/abnor mal. MCHC (test code = 786-4) 28.7 See_Comment L [A utomated message] The system [employer] generated this result transmitted ref erence range: [...] See_Comment [Aut omated message] 777-3) The system [employer] generated this result transmitted ref erence range: 150 - 45 0 K/CU MM. The referen ce range was not u sed to interpret this result as normal/abnor mal. MPV (test code = 9.8 fL 9.4-12.4 24626-9) nRBC (test code = 413) 0 See_Comment [Aut omated message] The system [employer] generated this result transmitted ref erence range: [...] See_Comment [Aut omated message] 670) The system [employer] generated this result transmitted ref erence range: 1.78 - 5 .38 K/L. The refe rence range was not u sed to interpret this result as normal/abnor mal. # Lymphs (test code = 1.68 See_Comment [Auto mated message] 414) The system [employer] generated this result transmitted ref erence range: 1.32 - 3 .57 K/L. The refe rence range was not u sed to interpret this result as normal/abnor mal. # Monos (test code = 1.24 See_Comment H [Autom ated message] 415) The system [employer] generated this result transmitted ref erence range: 0.30 - 0 .82 K/L. The refe rence range was not u sed to interpret this result as normal/abnor mal. # Eos (test code = 416) 0.40 See_Comment [Au tomated message] The system [employer] generated this result transmitted ref erence range: 0.04 - 0 .54 K/L. The refe rence range was not u sed to interpret this result as normal/abnor mal. # Baso (test code = 417) 0.06 See_Comment [A utomated message] The system [employer] generated this result transmitted ref erence range: 0.01 - 0 .08 K/L. The refe rence range was not u sed to interpret this result as normal/abnor mal. Immature 0 % 0-1 Granulocytes-Relative (test code = 2801) Lab Interpretation (test Abnormal code = 91817-9) [facility] W/PLT COUNT & AUTO [id number] 05:49:00 Test Item Value Reference Range Interpretation [...] PERCENT (BEAKER) (test code = 2801) POCT-GLUCOSE [id number] 00:14:00 Test Item Value Reference Range Interpretation Comments POC-GLUCOSE METER 110 mg/dL 70-110 : TESTED A T [facility] 67[address] (BEAKER) (test code = NAMITA CHEN [place], 1538) [address]: Machine Paint Mixer/Techni patrick ID = [id number] for Jodie Arechiga CBC (Hemogram only)2020-11-05 18:51:00 Test Item Value Reference Range Interpretation Comments WBC (test code = 6690-2) 6.9 See_Comment [A utomated message] The system [employer] generated this result transmitted ref erence range: 3.5 - 10 .5 K/L. The refe rence range was not u sed to interpret this result as normal/abnor mal. RBC (test code = 789-8) 3.71 See_Comment L [Au tomated message] The system [employer] generated this result transmitted ref erence range: 4.63 - 6 .08 M/L. The refe rence range was not u sed to interpret this result as normal/abnor mal. MCHC (test code = 786-4) 28.8 See_Comment L [A utomated message] The system [employer] generated this result transmitted ref erence range: [...] code = 347 See_Comment [Aut omated message] 497-3) The system [employer] generated this result transmitted ref erence range: 150 - 45 0 K/CU MM. The referen ce range was not u sed to interpret this result as normal/abnor mal. MPV (test code = 9.7 fL 9.4-12.4 54366-9) nRBC (test code = 413) 0 See_Comment [Aut omated message] The system [employer] h generated this result transmitted ref erence range: 0 - 0 /1 00 WBC. The refere nce range was not u sed to interpret this result as normal/abnor mal. Lab Interpretation (test Abnormal code = 76497-5) [facility] (HEMOGRAM ONLY)2020-11-05 18:51:00 Test Item Value Reference [...] 0-0 (BEAKER) (test code = 413) POCT-GLUCOSE [id number] 17:48:00 Test Item Value Reference Range Interpretation Comments POC-GLUCOSE METER 101 mg/dL 70-110 : TESTED A T [facility] 6720 (BEAKER) (test code = [facility], 1538) [address]: Machine Paint Mixer/Techni patrick ID = [id number] for KELSIE JONES POCT-GLUCOSE [id number] 12:13:00 Test Item Value Reference Range Interpretation Comments POC-GLUCOSE METER 151 mg/dL 70-110 H : TESTED A T [facility] 67[address] (BEAKER) (test code = [facility], 1538) [address]: Machine Paint Mixer/Techni patrick ID = [id number] for KELSIE JONES POCT-GLUCOSE [id number] 07:55:00 Test Item Value Reference Range Interpretation Comments POC-GLUCOSE METER 118 mg/dL 70-110 H : TESTED A T [facility] 67[address] (BEAKER) (test code = [facility], 1538) [address]697: Machine Paint Mixer/Techni patrick ID = [id number] for KELSIE JONES Hemoglobin and [id number] 06:24:00 Test Item Value Reference Range Interpretation [...] MIGUEL A (test code = MIGUEL A) Machine Paint Mixer ID - [id number] Lab Interpretation Abnormal (test code = 14839-0) [facility] [id number] 06:24:00 Test Item Value Reference Range Interpretation Comments HEMOGLOBIN (BEAKER) (test code = 8.7 GM/DL 13.7-17.5 L 410) HEMATOCRIT (BEAKER) (test code = 30.2 % 40.1-51.0 L 411) Machine Paint Mixer ID - [id number]-GLUCOSE [id number] 05:43:00 Test Item Value Reference Range Interpretation Comments POC-GLUCOSE METER 94 mg/dL 70-110 : TESTED A T [facility] 67[address] (BEAKER) (test code = [facility], 1538) [address]: Machine Paint Mixer/Techni patrick ID = [id number] for SAND ERS, CLARA POCT-GLUCOSE [id number] 23:17:00 Test Item Value Reference Range Interpretation Comments POC-GLUCOSE METER 98 mg/dL 70-110 : TESTED A T [facility] 67[address] (BEAKER) (test code = [facility], 1538) [address]: Machine Paint Mixer/Techni patrick ID = [id number] for CLARA HAIDER HEMOGLOBIN AND [id number] 22:59:00 Test Item Value Reference Range Interpretation Comments HEMOGLOBIN (BEAKER) (test code = 7.6 GM/DL 13.7-17.5 L 410) HEMATOCRIT (BEAKER) (test code = 26.8 % 40.1-51.0 L 411) Machine Paint Mixer ID - [id number]-GLUCOSE [id number] 17:48:00 Test Item Value Reference Range Interpretation Comments POC-GLUCOSE METER 125 mg/dL 70-110 H : TESTED A T [facility] 6720 (BEAKER) (test code = [facility], 1538) [address]: Machine Paint Mixer/Techni patrick ID = [id number] for KELSIE JONES HEMOGLOBIN AND [id number] 14:34:00 Test Item Value Reference Range Interpretation Comments HEMOGLOBIN (BEAKER) (test code = 8.5 GM/DL 13.7-17.5 L 410) HEMATOCRIT (BEAKER) (test code = 28.8 % 40.1-51.0 L 411) Machine Paint Mixer ID - [id number]-GLUCOSE [id number] 12:12:00 Test Item Value Reference Range Interpretation Comments POC-GLUCOSE METER 130 mg/dL 70-110 H : TESTED A T [facility] 67[address] (BEAKER) (test code = [facility], 1538) [address]: Machine Paint Mixer/Techni patrick ID = [id number] for KELSIE JONES [id number] 05:01:00 Test Item Value Reference Range Interpretation Comments PTT (test code = 97.7 See_Comment H [Automated message] 30933-3) The system [employer] generated this result transmitted ref erence range: 22.5 - 3 6.0 seconds. The reference range was not used to int erpret this result as normal/abnormal . Lab Interpretation (test Abnormal code = 62166-4) [facility] 05:01[facility]00 Test Item Value Reference Range Interpretation [...] 0-0 (BEAKER) (test code = 413) ABORH, [id number] 00:12:00 Test Item Value Reference Range Interpretation Comments ABO Grouping (test code = 2588) A Rh Factor (test code = 2589) POS [facility] CenterType and screen, [id number] 23:47:00 Test Item Value Reference Range Interpretation Comments Ab Scrn (test code = 890-4) NEGATIVE done on Echo 1 [facility] [id number] 23:42:00 Test Item Value Reference Range Interpretation Comments POC-GLUCOSE METER 96 mg/dL 70-110 : TESTED A T [facility] [address] (BEAKER) (test code = N[place], 1538) [address]: Machine Paint Mixer/Techni patrick ID = [id number] for ODELL REBOLLEDO [id number] 22:56:00 Test Item Value Reference Range Interpretation Comments PARTIAL THROMBOPLASTIN TIME 62.4 seconds 22.5-36.0 H (BEAKER) (test code = 760) HEMOGLOBIN AND [id number] 22:45:00 Test Item Value Reference Range Interpretation Comments HEMOGLOBIN (BEAKER) (test code = 7.9 GM/DL 13.7-17.5 L 410) HEMATOCRIT (BEAKER) (test code = 27.0 % 40.1-51.0 L 411) Machine Paint Mixer ID - [id number], [id number] 18:16:00Unlisted Reason for Exam - Click Yes and Enter Reason Below->YesUnlisted Reason for Exam->COLON CA WITH METS TO MUL SITESWill this procedure require oral contrast?->Yes [facility] : 1960 Sex: [...] MDReport Verified Date/Time: 11/03/2020 18:16:39 Reading Location: [facility] C013Y CT BodyReading Room CT, CHEST, WITH [id number] 18:16:00Unlisted Reason for Exam - Click Yes and Enter Reason Below->YesUnlisted Reason for Exam->COLON CA WITH METS TO MUL SITES [facility] : 1960 Sex: MFINAL [...] MDReport Verified Date/Time: 11/03/2020 18:16:39 Reading Location: [address] Body[address] Room CT chest with IV [id number] 18:16:00Interface, External Ris In - 11/03/2020 6:19 [...] MDReport Verified Date/Time: 11/03/2020 18:16:39 Reading Location: [facility] B1 C013Y CT Body [facility] IV [id number] 18:16:00 Interface, External Ris In - 11/03/2020 [...] ascites.*Otherwise, no significant change since 08/20/2020. Signed: Stehpanie Duffy Verified Date/Time: 11/03/2020 18:16:39 Reading Location: [facility] B1 C013Y CT Body [facility] [id number] 17:52:00 Test Item Value Reference Range Interpretation Comments POC-GLUCOSE METER 131 mg/dL 70-110 H : TESTED A [facility] 67[address] (The Scene) (test code = [facility], [facility]8) [address]: Machine Paint Mixer/Techni patrick ID = [id number] for Jyoti Aaron [id number] 13:36:00 Test Item Value Reference Range Interpretation Comments PARTIAL THROMBOPLASTIN TIME 50.1 seconds 22.5-36.0 H (AKER) (test code = 760) POCT-GLUCOSE [id number] 12:30:00 Test Item Value Reference Range Interpretation Comments POC-GLUCOSE METER 94 mg/dL 70-110 : TESTED A T [facility] 6720 (The Scene) (test code = [facility], 1538) [address]: Machine Paint Mixer/Techni patrick ID = [id number] for Jyoti Pierson Basic Metabolic [id number] 07:07:00 Test Item Value Reference Range Interpretation Comments Sodium (test code = 139 meq/L 916-066 5037-2) Potassium (test code = 3.7 meq/L 3.5-5.1 2823-3) Chloride (test code = 102 meq/L 98-107 2075-0) CO2 (test code = 28 meq/L 22-29 2028-9) BUN (test code = 6 mg/dL 7-21 L 3094-0) Creatinine (test code 0.63 mg/dL 0.57-1.25 = 2160-0) Glucose (test code = 86 mg/dL 70-105 2345-7) Calcium (test code = 8.6 mg/dL 8.4-10.2 56129-5) EGFR (test code = 158 mL/min/1.73 [place] [address]-5) NOT ACCURATE CREATININE CLEARANCE IN PREDICTING GLOMERULAR FILTRATION RATE . ESTIMATED GFR I S NOT APPLICABLE FOR DIALYSIS PATIENTS. MIGUEL A (test code = MIGUEL A) Machine Paint Mixer ID - [id number] L Lab Interpretation Abnormal (test code = 33386-5) [facility]OLIC [id number] 07:07:00 Test Item Value Reference Range Interpretation [...] S NOT APPLICABLE FOR DIALYSIS PATIEN TS. Machine Paint Mixer ID - ARLYN LCBC W/PLT COUNT & AUTO [id number] 06:36:00 Test Item Value Reference Range Interpretation [...] 0-1 PERCENT (BEAKER) (test code = 2801) [id number] 06:29:00 Test Item Value Reference Range Interpretation Comments PARTIAL THROMBOPLASTIN TIME 54.6 seconds 22.5-36.0 H (BEAKER) (test code = 760) POCT-GLUCOSE [id number] 05:42:00 Test Item Value Reference Range Interpretation Comments POC-GLUCOSE METER 84 mg/dL 70-110 : TESTED A T [facility] 6720 (BEAKER) (test code = [facility], 1538) [address]: Machine Paint Mixer/Techni patrick ID = [id number] for Chayito Sims [id number] 00:33:00 Test Item Value Reference Range Interpretation Comments PARTIAL THROMBOPLASTIN TIME 43.5 seconds 22.5-36.0 H (BEAKER) (test code = 760) 6 hours after starting heparin infusion and as indicated per sliding scalePOCT- GLUCOSE [id number] 23:55:00 Test Item Value Reference Range Interpretation Comments POC-GLUCOSE METER 92 mg/dL 70-110 : TESTED A T [facility] 6720 (BEAKER) (test code = [facility], 1538) [address]: Machine Paint Mixer/Techni patrick ID = [id number] for Chayito Sims POCT-GLUCOSE [id number] 17:52:00 Test Item Value Reference Range Interpretation Comments POC-GLUCOSE METER 78 mg/dL 70-110 : TESTED A T [facility] 6720 (BEAKER) (test code = [facility], 1538) [address]: Machine Paint Mixer/Techni patrick ID = [id number] for KELSIE VAZ [id number] 12:58:00 Test Item Value Reference Range Interpretation Comments PARTIAL THROMBOPLASTIN TIME 31.1 seconds 22.5-36.0 (BEAKER) (test code = 760) Prior to initiating heparinPOCT-GLUCOSE [id number] 12:32:00 Test Item Value Reference Range Interpretation Comments POC-GLUCOSE METER 70 mg/dL 70-110 : TESTED A T [facility] 6720 (BEAKER) (test code = [facility], 1538) 78372: Machine Paint Mixer/Techni patrick ID = [id number] for KELSIE VAZ Comprehensive metabolic [id number] 10:38:00 Test Item Value Reference Range Interpretation Comments Protein, Total (test 8.2 See_Comment [Autom ated code = 2885-2) message] The system which generated this result transmit murphy reference range : 6.0 - 8.3 gm/dL . The reference range was not u sed to interpret th is result as normal/abnormal . Albumin (test code = 3.3 g/dL 3.5-5 L 05413-0) Alkaline Phosphatase 82 U/L 40-150 (test code = 6768-6) Total Bilirubin (test 0.4 mg/dL 0.2-1.2 code = 1975-2) Sodium (test code = 137 meq/L 477-328 2205-2) Potassium (test code 3.7 meq/L 3.5-5.1 = 2823-3) Chloride (test code = 102 meq/L 98-107 2075-0) CO2 (test code = 26 meq/L 22-29 2028-9) BUN (test code = 5 mg/dL 7-21 L 3094-0) Creatinine (test code 0.64 mg/dL 0.57-1.25 = 2160-0) Glucose (test code = 65 mg/dL 70-105 L 2345-7) Calcium (test code = 8.6 mg/dL 8.4-10.2 36767-1) AST (test code = 15 U/L 5-34 1920-8) ALT (test code = 7 U/L 6-55 1742-6) EGFR (test code = 155 mL/min/1.73 [place] [address]-6) NOT ACCURATE CREATININE CLEARANCE IN PREDICTING GLOMERULAR FILTRATION RATE . ESTIMATED GFR I S NOT APPLICABLE FOR DIALYSIS PATIEN TSAnastacia MIGUEL A (test code = MIGUEL A) Machine Paint Mixer ID - SAHRA Oliver Lab Interpretation Abnormal (test code = 49763-1) [facility] [id number] 10:38:00 Test Item Value Reference Range Interpretation [...] S NOT APPLICABLE FOR DIALYSIS PATIEN TS. Machine Paint Mixer ID - SAHRA CProthrombin time/[id number] 10:25:00 Test Item Value Reference Interpretation Comments Range Protime (test code = 14.7 See_Comment H [Autom ated 2412-2) message] The system which generated this result transmitted reference range : 11.9 - 14.2 seconds. The reference range was not used to interpret this result as normal/abnormal . INR (test code = 1.19 See_Comment [Automated 6481-6) message] The system which generated this result [...] valves. Lab Interpretation Abnormal (test code = 51163-7) [facility] CenterPROTHROMBIN TIME/[id number] 10:25:00 Test Item Value Reference Range Interpretation [...] (test code = 2801) RAD, CHEST, 2 [id number] 09:28:00Reason for Exam:->Ple[facility] effusion [facility] : 1960 Sex: MFINAL [...] MDReport Verified Date/Time: 10/09/2020 09:28:01 Reading Location: [facility] Reading Room [address] [address] Electronically signed by: STARR BAILEY on 04/2021 09:28 AMXR Chest 2 [id number] 09:28:00Interface, External Ris In - 10/09/2020 9:30 [...] MDReport Verified Date/Time: 10/09/2020 09:28:01 Reading Location: [facility] Reading Room [address] [address] [facility] [id number] 09:40:00 Test Item Value Reference Range Interpretation Comments Case Report (test code Surgical Pathology = 104) Report Case: [id number] Authorizing Provider: Tarun Rai MD Collected: 09/30/2020 09:05 AM Ordering Location: [facility] HARDY PURDY Received: 09/30/2020 09:23 AM PERIOPERATIVE SERVICES Pathologist: Allen Velazquez MD Specimens: A) - Pleural, Right, RIGHT PLEURAL BIOPSY B) - Pleural, Right, RIGHT PLUERAL BIOPSY R/O CANCER DIAGNOSIS (test code = [id number] 3220) FuZzEwMzNcZnRuYmpcdWMx IHtccnRmMVxlcGljOTIwMF muyfDrRVBaaSFrV3Kroyga TPtqAO8lYC7myEzxpYPxzM MnUPPwKiVmh1pdr577uWCt p7epFVJGwmalxMq6uPrfL7 3gn9O8PxuxR35piEHnZMbu bGFpblxmczIwIEEuIFBMRV UKJApsWukQWZFhAFHAA9BL CEmrkVOxLO5AZIPYHGSXFO awKMzRQoOGYE1YWHYHXIHf REQHRy2RWCUJVV8IOYEtCH JsqiRBLIHqUFzVG87ZG9BU PeLWI60MJA9BYsvvDBFdrK FyIEIuIFBMRVVSQSwgUklH IPJaVEGFN3LPCVyrbKIfLH 1PREVSQVRFTFkgRElGRkVS HS3UDTNOAIDzFSIHKs6YOB FUJY3IXSYgDVRokh10UVE8 XlAab2R0ILG0LYMnYMEzz1 lcZGVmbGFuZzEwMzNcZnRu UlazmCGfXFXiZiNlg9ide7 52mEHvl0cqWIHjMoK5lRKt XLGafGVbR670XBTnFHmcb2 whf6InWSIalPHei9O5OJLW asvbsZb4hFidQ95gf9A1Ac exT0zuTHPbPYMgC5RyWW0r AYXkTpt5TWK2CMC4UIMdUV JzA2BjAG8hIKVbjIIeVTk6 w8ftoBonAPFyRLJ1u1blQM ruznDyHW9suo2bxRa6y2no czEgRGVmYXVsdCBQYXJhZ3 PzfIptIp7mgJt1aAqgTdeu MIY4Kgr3PN9upf83xhi5vA npTRJsdnicJsO8CRjxENNl aibdEDo2VDikIDQagYC1FW HlbIDxW8HzSJKhQN3bqcy6 THM1YNfcFUCpItD5WCWmlH WfSKAmhTpcROjbw666TPQ4 ZoIbVK3nF3Ual9I4yD8rcP TpHLZpfXEaVwOeXEMmiw5l eZDiYYyog2IwPZB6rdF2bW KggIJdYVZdRcT7ZVtdKB3r nf90JYDxLTA5lp3fdZQjaA exvzYmmNGlRWzbD4YkLGDc p830ZPIbO6WvZLIof7G8vr XmQuWyGHIxuRZ8eaU1WAVt ZT5ksdjnk5knTOfoGYyeRH YhlfH2opE2MUXznFOeL5Hp pC5oZFNkXV5wpxjhc3lnNQ B2MWzgWDArKVL1QyHiTRRz n2Qperg6JoJlv6BcxSNmEU xlG38fp350ZQAsajIlT6rx bGFpblxwbGFpblxmMFxmcz Y6BAZrRFjjhckdVGFvKWbv O3haMpTuWBFkbFdaNMxkh3 NoXGYxXGZzMjJcdGFiXHRh Bku1PTJslQHsSAFwRaLcH7 hupvvkVhWQKYJbb5loV3ao pUGSaTJhN9PnGXneglMlVU feBLrhWLSzJGI3OE45QOwl UDHhgz25 COMMENT (test code = v3lyeCClUSUekQI1YgQxPZ 3806) Ywh1ygu3NedZZfsDLlUBwv pXMdcgLdxv19qFC0wS52QV 3zLBOwZuL1PGItzhE4Nzh9 EHGiFQDhkAZeX866f3oxk9 fampXewTJ5bCkxYAZfHSUy NKkfWTKvUnWcWV5wjF5frH llqJ5jiCOiqVFagKAanUQt zWHtPHMugrSimk4fEHZpyq JosV8kagCELeKlPD8pyjK0 smI5IDC4rGUyhBJgo2QuI4 UwlAZfyI2gSuKlcE7eiTFf vgExJp4fCFMPMnFlJY3gSE RJKTMwUUSvDXryREBiPE6t T0G8cDHbVYCqmwCOHrdgFM 9dVPYRGjXfGEErUZUkoQ49 eg6emIOyc0J2zZqpOEWuEC pnuOjqEKSvcKiyIN4wmwSg r6tjX6srMPAqopBraonqYG IeTFJrz93hMXMuOdfcYYgz mHylHZ1jDIIhaz9oLHKiqX 1qnTNqf7MbN39ff80iHlXt yjqtuW0pSCzyKXF3 CPT Code(s) (test code d5cpoGXvNKDryZP1ClDjXF = 3357) Qoh0ywh9MygCOryXUkSFjc xXHcugMwvl32gFI6uL76UD 1uWIPxGsQ0QZVkobY2Ayi1 QJVySMSizINoP805i4zrm2 nyrjArvDD0eKguETJlKDAi YWluXGZzMjAgODgzMzEsID i0YoO8IDrcDmqpDMioAWNz JKi3TrCvuDCuxCQraE== CLINICAL HISTORY (test m0uxqANaYAYdrJT1LhPhVC code = 3356) Uux8qcc0AzlGMrxMVqFTio bLKrltEiat57uIL8rX79AA 5kZSBiMuX0FDKklrR4Epp6 UKXlRYXspQZgB589y5wlr5 ynbpAisVW0qHhqNSGhZOXh VYmhSDFdMvPiIWHhl9Lcti U4qFPpEOAdPFsze1Fmnwcw GHvlrKCirYNpHdU3t9xwdj 5ccGFyfQ== SPECIMEN SOURCE (test w6qlkJCwANHeoZR0SaRzJI code = 3377) Xkr6reo5AuxMGfyAXiSYxk aWBlrkUbit69jWX0uU63IT 0yRUNvGdF1YJCzjiT7Api9 PUWfSZEsyFYlH752n0bsk5 qvvpEidWA4aObpXGQfRYDx RMffLFXyJePsQF8oGQktsX JhbCwgcmlnaHQgXHBhciBC DqQPcDR0dfNnSWGnoXitoA BccGFyfQ== GROSS DESCRIPTION (test a3bguGVmPKYoiRK7OsVgAB code = 3366) Euu0ynn2YqaBWopWZtYLaf vELaoyUrnw34qTC0vY33YF 6pIZDpSaC9QIAprtY2Cpo1 WPCdLAMbvAFbV170x1hhz6 zjoaVopQY3jGrrUZCrECWp YWluXGZzMjAgUGFydCBBIH SnF7XhbrXuRZfnSWPygk8f pNijOAhrIuAxRRRel7d8sK T3oSMqoSM0kNCxxPtzZA9c cZXfKPFuoDSyo2SnMhuayM xiTKUzc6nzzsJeYQDsW3Mz t7acbaVorY1lXQFsCU7fMS PykDD2wlZjZNVlsInhgPTh Q80xp2lknAWmw3EnnVPjgJ vlyMRaF5QtdI2xaUIjblWe vsBhpBXthYRcq3Dth95qvA C8pKXbwFLbvUWnh4ThrU4i FBHkwTymME0zIB63VFApFW EuNSBjbSBpbiBncmVhdGVz eBMasV3bvyYyp57uOK5iRY GcePLaOfFgiNVzVktlA96z uI6iBRhqwzMtXNAcYtAAeM FyWR61zKEhDZNmh6L3QVUf yjZseZOcvJY7ZFZibO0yT6 Zcp4W4kTLePQRlXMLwImcj YXJccGFyXGYwIFBhcnQgQi ByZWNlaXZlZCBmcmVzaCBm d5WweC46wqZlmNViKHQhfd HrY02ax2NrmLT2aZ6iGXtt KeDvELZrh2t3xWH6pHLelW N7fVQnsXilXF1rrKCkYUEb hCYeo9AdRyjpcXciYOFjy2 bialYyUELiC2Gyc6xmwcBm rG2tOKYiFP3yUBCfqWX4dc CkIYZtjInymDQsO48qq8bi wVIta5YhlRkfYEJqjrdhcR Tuh66aVQGlIDuyYS39ehWl OiGfe2P3KXIsl2E8IZLgPP VfrEJcmparBn04YJzhAG76 USuuKP10ZIYaCBaqQBHoZ0 LpN7G8IL4yTNSdo5W7cI4k JO7rBYEsJYRePFMur75ee7 HwCVW0Jn0wdBHgSRZqi5Lo IcJfmxMmRLWiX6Dnv68uHD XqCKW1gUEevdXgfWl1baI7 QDRpYTIuoF61mlezSGSaPN S5hjD2zINdg2SpR3ufKSrj gBKpkW8yNDdpYHHyjDhvRV N1dJQhyJMubL5pkXJevF3o GXFnFJPlTL1pfF4yNHQnt8 LjcCpoIIGjh3huqeOvSDY0 cU1oXGvcHXM7Ai9tyDCwPU XlcwByOESqRJH1JQCXRP3Y NCAoQjEgaXMgdGhlIHJlbW TzmaDsbtSkUvL7qVHiGqBb feVuPZObA7Llr67jEnTQYg 3mu7drYEV5 INTRAOPERATIVE f8ibpANlPIXoqSC4KsZpPY CONSULTATION (test code Aob9pms2ArzRRioMAqZLij = 3369) mMWvixGcwv33bQF0fG70LD 2vCUGgSrN7SNMamiZ8Gea3 YJOlXAZvaMNmR528u9ymr7 orfvQruDG0xLtlWEYxMKJy YWluXGZzMjBccGFyXGYwIE IuIFBMRVVSQSwgUklHSFQs GRIHP9TCCCsngRWyZFDwKT VIF2KLMIaYWMRPZ1GuN1HG C9wDM49ODFprJTF3 MICROSCOPIC DESCRIPTION m1qzdTLiLKEnfWI8FxLqRC (test code = 3371) Trt7zzd3CixWWzyRLoAVcf dCXquuVpru43mSW5oZ98SQ 3jYFLcVeK6MLWtgmR0Lfr5 ZXAlCCBsfSQdW880k1bgn9 ncufHwyMB6wNlpFIFtAOHc JRxnKFZmJfYcHMYqBk3ojX VkLiBccGFyfQ== SPECIAL STUDIES (test i8bdpDDnGWMqj2xvWLJxdI code = 3376) FuZzEwMzNcZnRuYmpcdWMx KRpbuqMbLIaqx4RbM3HwMn AwMFxhbnNpXGRlZmxhbmcx NZVdJDK1ucOwVMBaEZnsVZ WoOJigRu9irHUzqKqsNeIp ERVoi7cfixKUhlgzfTu9s0 cyIIUaZwL0eMXtAIzeU0mt clKztSZgI7MncAMdgUd4k8 vaOzNiTqQ9nIBwSKooI6pr axYvuFJnOMYwIGc0nS34ME MqtZ2gsZOzYBpdfwXgCrA7 CHleRGSqXwN1DLVxeCZoAB WwZ4wpSBWoNHgaKZZlLDcu tMHeEPV0oNtda8M2mXHidE FunUsxXaQxXeIlRgPOd7Ts ANq1iVeyV2MmLRLrHxS9cH QgUGFyYWdyYXBoIEZvbnQ7 zOewsdWsr61nfMFlHXGzJP VwWoOaxEjoMNXaYJRKp1Ty iJpzFQZ7oPo7sJbxWeblJU U8Qyg6OL7kny91dlv3hUok DGJjvffpWcE6SJkaJSUwcl ieHEq9SClwRGWguIE5XOTn iHZkC8EuYBSeRB6wrvn2OT A0NKurVUQdGdW6QKOuyHUb BVMmyMgwYOmzm035OKN8Eo BuTZ6qZ9Jqc0Z0bV9bbBXa XUBsfFYdQpPzMYPabh5iqW WlBOmpq4SgQIF5ywU4kPHt uSByMJGpOC42Fluwm3VeMb nfj8SxR47suJU6MKrmu3mf VR0rQkN9xzQfRSrhg2xzfR 1hYxB5BOvaMF3sYM1jFRKi eY4rchanDRAjClAwcqcgMP RkeXfxntCnMs6teDqgARF0 NPzwY7waxH2gSpU7BWhlI3 colC1jOXx9ZZuitOE8VNJf mN0rOL9bcleik5daAZhhPC ekLVPxszN1frG0DZEouYPz O5EnqC0lPTSuUY6lhecqa5 koUWI3YItmBJLjTNX4CaOk CRUas6Eqiia9IyTio3JrwB ExAOswJ21lq990WLBeckZa H1mtnRKdnvewhUVwrfvaCJ gcwxS8EUUsDLAgZTsuJLJu XGZzMjJcbGFuZzEwMzNcaG ljaFxmMVxkYmNoXGYxXGxv U2qyGmMdF9UhETQpZdLuLO nwZEtjsGWvrEJhkNZ5rD9r UT0eIWKmsRSwH5SyFSFbjy HqdOKcJPJ5bWSxuXZvIO6w RHdavSKjq3wmi8LfJ8nzgT bvjZB5ZI5pDSVnFAAbXMcw o5JubI9pMvzfvWVubmfjCU xmczIyXGxhbmcxMDMzXGhp S7rzBbHnKRRwgUzzTShgn7 NoXGYxXGNmMlxmczIyXGx0 cmNoXHBhclxwYXJccGxhaW 4xYhIlXjBuLgqoRK3mPQWb Y6rhaPFeAHMtGUWbU1hrOd PipW3qpCkqKJcpSgGkQbAp OlQOk825zg3iEDBwmKYqck WChOPcoU5dAWjkFMliEAwh gGJrWKjud9tmGXZpg4q1gF PnFCAjaiBsk9chKFijxjAq QESudKTxsBPwTOSib12qMO irnDnyuFjbUUCaq1QzcFhq p8NjWrJqGJsan4KqO57kkU JvbCBzbGlkZXMgcnVuIGFs k04uu4gfJVVjKuY6hLAavC D8vJIpmAFdt3RkgHpmQFNt v5abHUByfj4nyqhlmPWge7 DdmM8fgxwsOQrhdGWkyvRi KKTke1b0tEAmSRMuFMDzSH mjzJj8MLCyv340if1slpA3 jZPnPAI6STjqFYIdAYNzsp UgZXZhbHVhdGVkXHBsYWlu XGYxXGZzMjJcbGFuZzEwMz NcaGljaFxmMVxkYmNoXGYx EIoiC6baEbSiW6OrCMAeEf LsyNFrE1ocbZDaZVYgSFuk XGYxXGZzMjJcbGFuZzEwMz NcaGljaFxmMVxkYmNoXGYx APjiB8lzSjMtU0PlVDWqDs IgIFxwbGFpblxmMVxmczIy NCheovlxRCPtNGlyZ8fiVs AbWWMcnOrkLXkwe5IjNYPs XPMgPhazywOfLOy2cpKkFE BhclxwbGFpblxmMVxmczIy BKzogkgqLQArCIzgQ4ltDr OhXGVinIrvXIjey4MsJRZq XGNmMlxmczIyIEltbXVub2 lei3GcE0dkoWlpwTK1YHWm Y8dpiDOrtGT8VXL7cG6kVQ mqebLzDILpw5JzVGVcYHMn XrK0vI1jNJI4JgUZzUqiMM BsYWluXGYxXGZzMjJcbGFu ZzEwMzNcaGljaFxmMVxkYm MsBNDxHWpdF6jnAbHzL7En FWAiFnGdpEdfNAzzHZd9Wj xwbGFpblxmMVxmczIyXGxh umbsIPFjIBnaM9phYvOcEC XrgCliIAqdb3JtWLPfLMBo MlxmczIyIHMgTWVkaWNhbC WJLL79FXZpNYEqhKgwxD2h mZWTMFSdaqI1i5A4MTmhCF TpOSn6RLzgjyYtDMXphL5x ZICaTJ6yUHz1lgArDMUxa2 CdLY3yGOLdzECdKGE1UIBi a8EoN9Ldy9GkLBIcBNKfru 5fvjGkHpBNsYNuYUCxwl23 AEQcHC9zI7piKKHxIDGala CryHKlf0VfYLWxvNR8eQGx BI5SUkWSb59iIDFvYTSLjt QlHPPdxUbsdBX0zvX6yN4e LiBUaGUgRkRBIGhhcyBkZX Kldb3ivdUkVJMbYSWhe3Rq kAZsjHGqrmUjL2War1ClET Ljnm14VWmydASzej02SN5l R4Nzx0QtvE3wMKygMSHdy4 TabRTplFVnFFHlv5JiG5qt zhgfCUqtkPIcrR7sKJThVT n4XBZze0YyQBKzo2QpRmZn jiAnJEZnYGCzFHNcmO48KH M8aQafdLsqbjMeRI1qPYZm jgVvTWOmCZSzpI1hPWysxj BjDECrrpO5e5N2RFloCLDn lyDwKyllFDU7doZrfiT2xB DnZ1dsoyfmXDyhHFHvp5Ee bR7glOAOaMZcm8MmeOUepS MJvUYdXF0qtvKvVV2tKXE7 ODggKENMSUEtODgpIGFzIH J8TPcyOogoMNC3gdIlKTHb m2QzGLztG2tgA66izHcvvE f8vJOrbOwodZUtpCIlDBPb ifI0q6D4UPHyz9NfppnpCZ BsYWluXGYyXGZzMjJcbGFu ZzEwMzNcaGljaFxmMlxkYm DlLTDfKNjlR9exIpYeVrIp LtscNLA1a3nezWQoJVXyjY C4GtYtHRGmx7frb1YrzFJi sOZwGUexkCSmdmVnjg71cR I3qS45TP4iNFHzStK0GDXb msX9Mol1DUSkMISudDFtF9 62y1six3miwfDgiHO2mZfp YXJkXHBsYWluXGZzMjAgQk bJC8ogWBToVOPWQcplV2vz YMrmG0WWTbncJFDALDvvPA J9fQ== Gross assessment was [facility] performed at ([facility], = 5530) Department of Pathology, [address] [place] [address], [place] [address], Technical component was [facility] performed at ([facility], = 2778) Department of Pathology, [address] [place] [address], Professional component [facility]'s was performed at ([facility], code = 2779) Department of Pathology, [address] [place] [address], [facility] [id number] 09:40:00Surgical Pathology Report Case: [id number] Authorizing Provider: Tarun Rai MD Collected: 09/30/2020 09:05 AM Ordering Location: [facility] Received: 09/30/2020 09:23 AM PERIOPERATIVE SERVICES Pathologist: Allen Velazquez MD Specimens: A) - Pleural, Right, RIGHT PLEURAL BIOPSY B) -Pleural, Right, RIGHT PLUERAL BIOPSY R/O CANCER A. PLEURA, RIGHT, BIOPSY:MODERATELY DIFFERENTIATED ADENOCARCINOMA.SEE DIAGNOSTIC COMMENT.B. PLEURA, RIGHT, BIOPSY:MODERATELY DIFFERENTIATED ADENOCARCINOMA. Signing Pathologist Direct Phone Line: [phone] signed by Allen Velazquez MD on 10/08/2020 at 9:40 AMImmunohistochemical studies performed on block A2 demonstrate the tumor cells to be positive for CK20 and CDX2. They are negative for CK7and TTF1. The immunophenotypic as well as the morphologic findings are compatible with an adenocarcinoma of colonic origin. 03089, 68166 X 2, 73367, 35049b2Gwjixwukabit diagnosis: Pleural effusion.A. Pleural, right B. Pleural, [...] evaluated Immunohistochemistry technical testing was performed at [facility], Pathology Laboratory where it was [...] clinical laboratory testing.BLOCK A2- CK7, CK20, CDX2, ORZ2Isaxvj [facility], Department of Pathology, [address] [place] [address], [facility], [facility] of [facility], [address] [place] [address], [facility], Department of Pathology, [address] [place] [address], GXYI-GLUCOSE [id number] 16:50:00 Test Item Value Reference Range Interpretation Comments POC-GLUCOSE METER 110 mg/dL 70-110 : TESTED A T [facility] [address] (The Scene) (test code = [facility], 153) 94[address]: Machine Paint Mixer/Techni patrick ID = [id number] for HU NTER, HIWITHA POCT-GLUCOSE [id number] 13:23:00 Test Item Value Reference Range Interpretation Comments POC-GLUCOSE METER 98 mg/dL 70-110 : TESTED A T [facility] [address] ([employer] Scene) (test code = [facility], 153) 48117: Machine Paint Mixer/Techni patrick ID = [id number] for [facility], HIWITHA RAD, CHEST, 1 VIEW, NON [id number] 12:26:00Reason for exam:->s/p ChT removalShould this be performed at the bedside?->Yes [facility] : 1960 Sex: [...] ma gnified by technique. Signed: Radha Cabrera Verified Date/Time: 10/02/2020 12:26:12 Reading Location: [facility] Reading Room XR chest 1 view portable / [id number] 12:26:00Interface, External Ris In - 10/02/2020 12:28 [...] technique. Signed: Radha Cabrera Verified Date/Time: 10/02/2020 12:26:12 Reading Location: [facility] Radiology [facility] [id number] 09:20:00 Test Item Value Reference Range Interpretation [...] MIGUEL A (test code = MIGUEL A) Machine Paint Mixer ID - Jessenia Bowling comments: Slide comments: WBC: SEGMENTED WITH TOXIC GRANULATIONS PRESENT Lab Interpretation Abnormal (test code = 92730-8) [facility] W/PLT COUNT & AUTO [id number] 09:20:00 Test Item Value Reference Range Interpretation [...] CONCENTRATION Adequate (CELLAVISION)(BEAKER) (test code = 3438) Machine Paint Mixer ID - Jessenia Bowling comments: Slide comments: WBC: SEGMENTED WITH TOXIC GRANULATIONS PRESENTRAD, CHEST, 1 VIEW, NON [id number] 08:45:00 Reason for exam:->s/p R VATSShould this be performed at the bedside?->Yes [facility] : 1960 Sex: MFINAL REPORT CLINICAL HISTORY: s/p R VATS TECHNIQUE: [address] COMPARISON: 10/01/2020 IMPRESSION: The right central line is unchanged. Right hemithorax pleural-parenchymal opacity is unchanged. Left lung remains well-aerated. The cardiomediastinal silhouette is magnified by technique. Signed: Radha Cabrera MDReport Verified Date/Time: 10/02/2020 08:45:51 Reading Location: [facility] Radiology Reading Room [id number] 06:11:00 Test Item Value Reference Range Interpretation Comments Magnesium (test code = 2.2 mg/dL 1.6-2.6 20212-8) MIGUEL A (test code = MIGUEL A) Machine Paint Mixer ID - ARGENIS Coburn Lab Interpretation (test Normal code = 48350-6) [facility] METABOLIC [id number] 06:11:00 Test Item Value Reference Range Interpretation [...] S NOT APPLICABLE FOR DIALYSIS PATIEN TS. Machine Paint Mixer ID - ARGENIS [id number] 06:11:00 Test Item Value Reference Range Interpretation Comments MAGNESIUM (BEAKER) (test code = 2.2 mg/dL 1.6-2.6 627) Machine Paint Mixer ID - ARGENIS MPrepare Leuko-Red [id number] 23:54:00 Test Item Value Reference Range Interpretation Comments CROSSMATCH (test code = COMPATIBLE 2264) Unit ABO (test code = A Pos 8982356) UNIT NUMBER (test code = [id number] 934-0) Status (test code = RETURNED FROM ISSUE 8919906) Blood Bank Product (test RED BLOOD CELLS code = 2263) PRODUCT CODE (test code = N7568G50 933-2) [facility] [id number] 11:35:00 Test Item Value Reference Range Interpretation Comments POC-GLUCOSE METER 133 mg/dL 70-110 H : TESTED A T [facility] [address] (The Scene) (test code = Motility Count [facility], 1538) [address]: Machine Paint Mixer/Techni patrick ID = [id number] for CH UKWU, HYGINUS ECG 12 [id number] 08:18:06Interface, External Ris In - 10/01/2020 8:18 AM CSTVentricular Rate 113 BPMAtrial Rate 113 BPMP-R Interval 178 msQRS Duration 70 msQ-T Interval 340 msQTC Calculation(Bazett) 466 msP [place] 49 degreesR [place] 15 degreesT [place] 59 degreesSinus tachycardia with frequent Premature atrial complexesNonspecific T wave abnormalityAbnormal ECGWhen compared with ECG of 30-SEP-2020 17:13,No significant changesConfirmed by MD JAYCEE, BRYANT Haley ([id number]) on 10/01/2020 8:18:03 [facility] 2020-10-01 07:42:00 Test Item Value Reference Range Interpretation Comments POC-GLUCOSE METER 116 mg/dL 70-110 H : TESTED A T [facility] [address] ([employer]) (test code = ImplisitAZ Zumigo [facility], 1538) 25512: Machine Paint Mixer/Techni patrick ID = [id number] for Ca ge, Yoselyn RAD, CHEST, 1 VIEW, NON [id number] 07:35:00Reason for exam:->s/p R VATSShould this be performed at the bedside?->Yes [facility] : 1960 Sex: MFINAL [...] Escobar Verified Date/Time: 10/01/2020 07:35:22 Reading Location: [facility] Radiology Reading Room CBC W/PLT COUNT & AUTO [id number] 06:46:00 Test Item Value Reference Range Interpretation [...] CONCENTRATION Adequate (CELLAVISION)(BEAKER) (test code = 3438) Machine Paint Mixer ID - Penny OverholtUser comments: Slide comments:BASIC [...] S NOT APPLICABLE FOR DIALYSIS PATIEN TS. Machine Paint Mixer ID - [id number] 04:43:00 Test Item Value Reference Range Interpretation Comments MAGNESIUM (BEAKER) (test code = 2.2 mg/dL 1.6-2.6 627) Machine Paint Mixer ID - EDASIPOCT-GLUCOSE [id number] 00:08:00 Test Item Value Reference Range Interpretation Comments POC-GLUCOSE METER 96 mg/dL 70-110 : TESTED A T [facility] 6720 (BEAKER) (test code = NAMITA Brantley [place], 1538) 92736: Machine Paint Mixer/Techni patrick ID = [id number] for STEPHEN REBOLLEDO CBC (HEMOGRAM ONLY)2020-09-30 23:13:00 [...] 0-0 (BEAKER) (test code = 413) Troponin [id number] 18:48:00 Test Item Value Reference Range Interpretation Comments Troponin I (test code = <0.01 0-0.03 39396-8) MIGUEL A (test code = MIGUEL A) [...] BS Lab Interpretation (test Normal code = 29581-3) [facility] [id number] 18:48:00 Test Item Value Reference Range Interpretation [...] failure, acidosis, acute neurological disease, and persistent tachyarrhythmia.Machine Paint Mixer ID - [id number] 18:42:00 Test Item Value Reference Range Interpretation Comments MAGNESIUM (BEAKER) 2.3 mg/dL 1.6-2.6 Specimen slightly (test code = 627) hemolyzed Machine Paint Mixer ID - BSBASIC METABOLIC [id number] 18:42:00 Test Item Value Reference Range Interpretation [...] S NOT APPLICABLE FOR DIALYSIS PATIEN TS. Machine Paint Mixer ID - BSHEMOGLOBIN AND [id number] 16:53:00 Test Item Value Reference Range Interpretation Comments HEMOGLOBIN (BEAKER) (test code = 6.8 GM/DL 13.7-17.5 L 410) HEMATOCRIT (KEVINAKER) (test code = 24.6 % 40.1-51.0 L 411) Machine Paint Mixer ID - 6000POCT-GLUCOSE [id number] 16:47:00 Test Item Value Reference Range Interpretation Comments POC-GLUCOSE METER 167 mg/dL 70-110 H : TESTED A T [facility] 6720 (ZACHARY) (test code = [facility] Fercho [facility], 1538) [address]: Machine Paint Mixer/Techni patrick ID = [id number] for AMADA CORONA POCT-GLUCOSE [id number] 14:04:00 Test Item Value Reference Range Interpretation Comments POC-GLUCOSE METER 95 mg/dL 70-110 : TESTED A T [facility] 6720 (ZACHARY) (test code = [facility], 1538) [address]: Machine Paint Mixer/Techni patrick ID = [id number] for JYOTHI MORALES CT, CHEST, WITHOUT [id number] 13:19:00Evaluate for residual pleural effusion, extent of disease in R chestUnlisted Reason for Exam - ClickYes and Enter Reason Below->No [facility] : 1960 Sex: [...] [place]ort Verified Date/Time:09/30/2020 13:19:51 Reading Location: [facility] B1 C013X Ortho Consult Reading Room CT chest without IV [id number] 13:19:00Interface, External Ris In - 09/30/2020 1:22 [...] also concerning for metastatic disease. Signed: Olga [place] Verified Date/Time: 09/30/2020 13:19:51 Reading Location: [facility] C013X OrthoConsult Reading Room [facility] HGB/HCT (H&H)-Stat [id number] 12:15:00 Test Item Value Reference Range Interpretation Comments Hemoglobin (test code = 7.6 See_Comment L [Au tomated message] 786-4) The system [employer]MeiWe[employer] generated this result transmitted ref erence range: 13.0 - 1 6.8 GM/DL. The refe rence range was not u sed to interpret this result as normal/abnor mal. Hematocrit (test code = 22.0 % 40-50 L 4544-3) Lab Interpretation (test Abnormal code = 60340-8) [facility] [id number] 12:15:00 Test Item Value Reference Range Interpretation Comments HEMOGLOBIN (BEAKER) (test code = 7.6 GM/DL 13.0-16.8 L 410) HEMATOCRIT (BEAKER) (test code = 22.0 % 40.0-50.0 L 411) [id number] 11:09:00 Test Item Value Reference Range Interpretation Comments Glucose (test code = 2345-7) 126 mg/dL 70-105 H Lab Interpretation (test code = Abnormal 68364-9) [facility] 11:09:00 Test Item Value Reference Range Interpretation Comments Phosphorus (test code = 4.4 mg/dL 2.3-4.7 2777-1) MIGUEL A (test code = MIGUEL A) Machine Paint Mixer ID - SAHRA C Lab Interpretation (test Normal code = 94433-0) [facility]assium2020-[facility] 11:09:00 Test Item Value Reference Range Interpretation Comments Potassium (test code = 2823-3) 3.6 meq/L 3.5-5.1 Lab Interpretation (test code = Normal 21770-9) [facility]2020-12-29 11:09:00 Test Item Value Reference Range Interpretation Comments GLUCOSE RANDOM (BEAKER) (test code 126 mg/dL 70-105 H = 652) [id number] 11:09:00 Test Item Value Reference Range Interpretation Comments MAGNESIUM (BEAKER) (test code = 1.9 mg/dL 1.6-2.6 627) Machine Paint Mixer ID - SAHRA CBASIC METABOLIC [id number] 11:09:00 Test Item Value Reference Range Interpretation [...] S NOT APPLICABLE FOR DIALYSIS PATIEN TS. Machine Paint Mixer ID - SAHRA [id number] 11:09:00 Test Item Value Reference Range Interpretation Comments PHOSPHORUS (BEAKER) (test code = 4.4 mg/dL 2.3-4.7 604) Machine Paint Mixer ID - SAHRA [id number] 11:09:00 Test Item Value Reference Range Interpretation Comments POTASSIUM (BEAKER) (test code = 3.6 meq/L 3.5-5.1 379) Calcium, [id number] 10:48:00 Test Item Value Reference Range Interpretation Comments Calcium, Ion (test code = 1994-3) 1.16 mmol/L 1.12-1.27 pH, Blood (test code = 55660-7) 7.35 [facility], [id number] 10:48:00 Test Item Value Reference Range Interpretation Comments CALCIUM IONIZED (BEAKER) (test 1.16 mmol/L 1.12-1.27 code = 698) PH, BLOOD (BEAKER) (test code = 7.35 1810) RAD, CHEST, 1 VIEW, NON [id number] 10:43:00Reason for exam:->s/p R VATSShould this be performed at the bedside?->Yes [facility] : 1960 Sex: MFINAL [...] MDReport Verified Date/Time: 09/30/2020 10:43:01 Reading Location: [facility] Radiology Reading Room PT/[id number] 10:42:00 Test Item Value Reference Interpretation Comments Range Protime (test code = 16.0 See_Comment H [Autom ated 5902-2) message] The system which generated this result transmitted reference range : 11.9 - 14.2 seconds. The reference range was not used to interpret this result as normal/abnormal . INR (test code = 1.32 See_Comment [Automated 6301-6) message] The system which generated this result transmitted reference range : <=5.90. The reference range was not used to interpret this result as normal/abnormal . PTT (test code = 33.1 See_Comment [Automated 07643-1) message] The system which generated this result [...] valves. Lab Interpretation Abnormal (test code = 88544-5) [facility] CenterPT/[id number] 10:42:00 Test Item Value Reference Range Interpretation [...] (BEAKER) (test code = 413) HEMOGLOBIN AND [id number] 10:30:00 Test Item Value Reference Range Interpretation Comments HEMOGLOBIN (BEAKER) (test code = 7.1 GM/DL 13.7-17.5 L 410) HEMATOCRIT (BEAKER) (test code = 25.5 % 40.1-51.0 L 411) Glucose-Stat [id number] 09:11:00 Test Item Value Reference Range Interpretation Comments Glucose (test code = 2345-7) 101 mg/dL 70-110 Lab Interpretation (test code = Normal 81755-6) [facility] [id number] 09:11:00 Test Item Value Reference Range Interpretation Comments GLUCOSE RANDOM (BEAKER) (test code 101 mg/dL 70-110 = 652) HGB/HCT (H&H) - STAT [id number] 09:11:00 Test Item Value Reference Range Interpretation Comments HEMOGLOBIN (BEAKER) (test code = 8.0 GM/DL 13.0-16.8 L 410) HEMATOCRIT (BEAKER) (test code = 24.0 % 40.0-50.0 L 411) POCT-GLUCOSE [id number] 07:38:00 Test Item Value Reference Range Interpretation Comments POC-GLUCOSE METER 116 mg/dL 70-110 H : Notified RN/MD: (ZACHARY) (test code = TESTED AT [facility] 7256 6810) [facility] [place], [address]: Machine Paint Mixer/Techni patrick ID = [id number] for Charo Young POCT-GLUCOSE [id number] 05:55:00 Test Item Value Reference Range Interpretation Comments POC-GLUCOSE METER 54 mg/dL 70-110 L : TESTED A T [facility] 6720 (BEAKER) (test code = NAMITA Brantley [facility], 1538) [address]: Machine Paint Mixer/Techni patrick ID = [id number] for TADEO AN, LACRYSTAL SARS-CoV2/RT-PCR ([facility])2020-09-29 17:14:00 Test Item Value Reference Range Interpretation Comments SARS-COV2/RT-PCR Negative Not Detected, (test code = Negative, See 77581-5) external report for linked test SARS-COV-2 [facility] VIRGEN PERFORMING LAB (test code = 58077-0) MIGUEL A (test code = Negative result [...] of the Act. Fact Sheet for Healthcare Providers:https://www.Easy Metrics/sites/default/f fidelia/product/documents/F act_Sheet_HC_Providers_L hue_RUTW-ZeX-3.pdf Fact Sheet for Healthcare Patients:https://www.farmflo/sites/default/fi les/product/documents/Fa ct_Sheet_Patients_Lyra_S ARS-CoV-2.pdf Performing Laboratory:[facility] [place] [address] [facility])2020-09-29 17:14:00 Test Item Value Reference Range Interpretation Comments SARS-COV2/RT-PCR (test Negative Not Detected, Negative, code = 2274217) See external report for linked test SARS-COV-2 PERFORMING LAB [facility] VIRGEN (test code = 1464278) Negative result for this test determines that [...] 564(g) of the Act.Fact Sheet for Healthcare Providers:https://www.ProprietárioDireto/sites/default/files/product/documents/Fact_Shee b_UR_Rtvnyympf_Ibcw_JKWG-VnE-9.pdfFact Sheet for Healthcare Patients:https://www.ProprietárioDireto/sites/default/files/product/ documents/Ejzh_Itiyj_Swsymixa_Afot_KCDB-NdD-0.pdfPerforming Laboratory:[facility], [place] [address]PAM, CHEST, 2 VIEWS 2020-09-29 13:54:00Reason for exam:->Pleural effusion [J90] [facility] : 1960 Sex: [...] mid and lower lobe subsegmental atelectasis.Signed: Maile [facility] Verified Date/Time: 09/29/2020 13:54:45 POCT-GLUCOSE [id number] 09:29:00 Test Item Value Reference Range Interpretation Comments POC-GLUCOSE METER 88 mg/dL 70-110 : TESTED Marleen T [facility] 6720 (BEAKER) (test code = NAMITA CHEN [place], 1538) 45498: Machine Paint Mixer/Techni patrick ID = [id number] for JAMES OAKES BASIC METABOLIC [id number] 07:08:00 Test Item Value Reference Range Interpretation [...] S NOT APPLICABLE FOR DIALYSIS PATIEN TS. Machine Paint Mixer ID - EDASICBC W/PLT COUNT & AUTO [id number] 06:44:00 Test Item Value Reference Range Interpretation [...] PERCENT (BEAKER) (test code = 2801) POCT-GLUCOSE [id number] 21:33:00 Test Item Value Reference Range Interpretation Comments POC-GLUCOSE METER 108 mg/dL 70-110 : TESTED A T [facility] 6720 (BEAKER) (test code = NAMITA CHEN [place], 1538) 26677: Machine Paint Mixer/Techni patrick ID = [id number] for OVIDIO LEONARD POCT-GLUCOSE [id number] 15:38:00 Test Item Value Reference Range Interpretation Comments POC-GLUCOSE METER 91 mg/dL 70-110 : TESTED A T [facility] 6720 (BEAKER) (test code = NAMITA Brantley [facility], 1538) 23230: Machine Paint Mixer/Techni patrick ID = [id number] for GIA ARELLANO FL, FLUORO, NON-SPECIFIC, UP TO 1 [id number] 13:55:00Reason for exam:- >abnormal imaging [facility] : 1960 Sex: MFluoroscopic unit utilized for a procedure performed in the OR. No interpretation was requested. Refer to the operative report for findings. Refer to PACS for patient radiation dose information.FL fluoro non-specific up to 1 [id number] 13:55:00Interface, External Ris In - 08/21/2020 5:26 PM CSTFluoroscopic unit utilized for a procedure performed in the OR. No interpretation was requested. Refer to the operative report for findings. Referto PACS for patient radiation dose information.[facility] [id number] 07:42:00 Test Item Value Reference Range Interpretation Comments POC-GLUCOSE METER 110 mg/dL 70-110 : TESTED A T [facility] 6720 (BEAKER) (test code = NAMITA Brantley [facility], 1538) 34227: Machine Paint Mixer/Techni patrick ID = [id number] for ROSA BEGUM BASIC METABOLIC [id number] 07:15:00 Test Item Value Reference Range Interpretation [...] S NOT APPLICABLE FOR DIALYSIS PATIEN TS. Machine Paint Mixer ID - PIAYA LCBC W/PLT COUNT & AUTO [id number] 06:55:00 Test Item Value Reference Range Interpretation [...] PERCENT (BEAKER) (test code = 2801) SARS-COV2/RT-PCR ([facility])2020-08-21 00:20:00 Test Item Value Reference Range Interpretation Comments SARS-COV2/RT-PCR (test Negative Not Detected, Negative, code = 6627108) See external report for linked test SARS-COV-2 PERFORMING LAB [facility] (test code = 6410280) Negative result for this test determines that [...] the Vieyra SARS-CoV-2 assay.Fact Sheet for Healthcare Providers:https://www.The Solution Design Group.vieyra/grant/ FV_EAZW-BnL-6_ZQY_Lstz_Sguip_20-248094.pdfFact Sheet for Healthcare Patients:https://www.[employer].MiArch/grant/HH_DUND-MoI-1_Crnrxxm_Tase_Oxchj_UE_50-770386K2.pdfPerforming Laboratory:[facility], [place] [address]YF, [id number] 12:21:00Reason for exam:->ABDOMINAL PAINWhat is the patient's sedation requirement?->No Sedation [facility] : 1960 Sex: [...] unchanged. Stable left adrenal mass. Signed: Stefanie [facility] Verified Date/Time: 08/20/2020 12:21:52 Reading Location: [address] [facility]ENBEIGHROPONIN [id number] 12:05:00 Test Item Value Reference Range Interpretation [...] failure, acidosis, acute neurological disease, and persistent tachyarrhythmia.[id number] 11:03:00 Test Item Value Reference Range Interpretation Comments Lipase (test code = 3040-3) 26 U/L 8-78 Lab Interpretation (test code = Normal 73020-6) [facility] CenterL[facility] acid, [id number] 11:03:00 Test Item Value Reference Range Interpretation Comments Lactate, Venous (test 1.60 mmol/L 0.5-2.2 Specim en markedly code = 2872) hemolyzed Lab Interpretation (test Normal code = 59544-6) [facility] CenterCOMPREHENSIVE METABOLIC [id number] 11:03:00 Test Item Value Reference Range Interpretation [...] S NOT APPLICABLE FOR DIALYSIS PATIEN TS. [id number] 11:03:00 Test Item Value Reference Range Interpretation Comments LIPASE (BEAKER) (test code = 749) 26 U/L 8-78 LACTIC ACID, [id number] 11:03:00 Test Item Value Reference Range Interpretation Comments LACTATE BLOOD VENOUS 1.60 mmol/L 0.50-2.20 Specime n markedly (2) (BEAKER) (test hemolyzed code = 2872) Urinalysis w/Microscopic + Reflex to [id number] 10:25:00 Test Item Value Reference Range Interpretation Comments Color, UA (test code = Yellow 5778-6) Clarity, UA (test code Clear = 5767-9) Specific Crowley, UA 1.020 1.005-1.030 (test code = 5811-5) pH, UA (test code = 6.0 5.0-9.0 5803-2) Protein, UA (test code Negative Negative = 91846-9) Glucose, UA (test code Negative Negative = 365) Ketones, UA (test code Negative Negative = 2514-8) Bilirubin, UA (test Negative Negative code = 94176-8) Blood, UA (test code = Trace Negative A 12409-9) Nitrite, UA (test code Negative Negative = 5802-4) Leukocytes, UA (test Negative Negative code = 5799-2) Urobilinogen, UA (test 0.2 mg/dL 0.2-1 code = 60210-2) Bacteria, UA (test code Occasional = 40076-4) RBC, UA (test code = <5 See_Comment [Autom ated message] 799-7) The system AiMeiWei generated this result transmit murphy reference range : /HPF. The refer ence range was not u sed to interpret th is result as normal/abnormal . WBC, UA (test code = <5 See_Comment [Autom ated message] 25253-4) The system AiMeiWei generated this result transmit murphy reference range : /HPF. The refer ence range was not u sed to interpret th is result as normal/abnormal . Specimen Source (test code = 2795) Lab Interpretation Abnormal (test code = 94382-0) [facility] CenterURIN[facility]YSIS W/ REFLEX URINE [id number] 10:25:00 Test Item Value Reference Range Interpretation [...] = 2795) CBC W/PLT COUNT & AUTO [id number] 10:20:00 Test Item Value Reference Range Interpretation [...] PERCENT (BEAKER) (test code = 2801) ECG/EKG [id number] 09:50:55Wojciech Mcdermott MD 08/20/2020 10:34 AMECG/EKG Interpretation Date/Time: 08/20/2020 10:34 AMPerformed by: Wojciech Mcdermott MDAuthorized by: Wojciech Mcdermott MD The ECG was interpreted by ED physician. Comments: Sinus with PACs, rate 83, pr 152, qrs 82, qtc 465, normal axis, no sig dayanara/std, twi inferolaterallyCHI [facility] PRZ-[id number] 00:00:00Ordered by an unspecified provider.[facility] CenterANG, REMOVAL OF INDWELLING TUNNELED PLEURAL CATH W/[id number] 16:22:00Reason for Exam:->Pleur-X no longer draining, needs [...] Goodman Verified Date/Time: 06/24/2020 16:22:21 Reading Location: [place] [address] Angio Body Reading Room IR Removal Indwelling Tunneled Pleural Cath w/[id number] 16:22:00Interface, External Ris In - 06/24/2020 4:24 [...] Goodman Verified Date/Time: 06/24/2020 16:22:21 Reading Location: [place] [address] Angio Body Reading Room [facility]ST, 1 VIEW, NON [id number] 12:14:00 Reason for exam:->pleural drain removedShould this [...] eport Verified Date/Time: 06/16/2020 12:14:55 Reading Location: [facility] Radiology Reading Room PROTHROMBIN TIME/[id number] 08:47:00 Test Item Value Reference Range Interpretation [...] INR is2.5-3.5 for patients wiht mechanical heart valves.[id number] 08:47:00 Test Item Value Reference Range Interpretation Comments PARTIAL THROMBOPLASTIN TIME 29.4 seconds 22.5-36.0 (BEAKER) (test code = 760) CBC W/PLT COUNT & AUTO [id number] 08:39:00 Test Item Value Reference Range Interpretation [...] code = 2801) CT, CHEST, WITH IV [id number] 10:54:00Unlisted Reason for Exam - Click Yes [...] the large right pleural effusion. Signed: Angelita Rea Verified Date/Time: 06/05/2020 10:54:37 Reading Location: [address] Body Reading Room CT, [id number] 10:54:00Unlisted Reason for Exam - Click Yes [...] Rae Verified Date/Time: 06/05/2020 10:54:37 Reading Location: [address] Body Reading Room RAD, CHEST, 2 [...] pleural thickening andpleural fluid. Signed: Jermaine Menjivar Verified Date/Time: 05/12/2020 15:35:02 Reading Location: [place] Rad Reading Room [address] [place] [address] POCT-GLUCOSE [id number] 11:41:00 Test Item Value Reference Range Interpretation Comments POC-GLUCOSE METER 173 mg/dL 70-110 H : TESTED A T [facility] 6720 (BEAKER) (test code = NAMITA Brantley [facility], 1538) 73404: Machine Paint Mixer/Techni patrick ID = [id number] for GISELL WASSERMAN POCT-GLUCOSE [id number] 09:15:00 Test Item Value Reference Range Interpretation Comments POC-GLUCOSE METER 149 mg/dL 70-110 H : TESTED A T [facility] 6720 (BEAKER) (test code = NAMITA Brantley [facility], 1538) 73527: Machine Paint Mixer/Techni patrick ID = [id number] for CHARO MCDANIEL [id number] 06:46:00 Test Item Value Reference Range Interpretation Comments PHOSPHORUS (BEAKER) (test code = 3.5 mg/dL 2.3-4.7 604) Machine Paint Mixer ID - ODELL [id number] 06:46:00 Test Item Value Reference Range Interpretation Comments MAGNESIUM (BEAKER) (test code = 2.1 mg/dL 1.6-2.6 627) Machine Paint Mixer ID - ODELL WBASIC METABOLIC [id number] 06:46:00 Test Item Value Reference Range Interpretation [...] S NOT APPLICABLE FOR DIALYSIS PATIEN TS. Machine Paint Mixer ID - ODELL WCBC (HEMOGRAM ONLY)2020-04-28 05:50:00 [...] = No growth in 5 days 6463-4) [facility] CenterBLOOD [id number] 00:00:00 Test Item Value Reference Range Interpretation Comments CULTURE (BEAKER) (test No growth in 5 days code = 1095) BLOOD [id number] 00:00:00 Test Item Value Reference Range Interpretation Comments CULTURE (BEAKER) (test No growth in 5 days code = 1095) POCT-GLUCOSE [id number] 21:44:00 Test Item Value Reference Range Interpretation Comments POC-GLUCOSE METER 182 mg/dL 70-110 H : TESTED A T [facility] 6720 (BEAKER) (test code [facility], = 1538) 87465: Machine Paint Mixer/Techni patrick ID = [id number] for DAGOBERTO MICHEL POCT-GLUCOSE [id number] 17:07:00 Test Item Value Reference Range Interpretation Comments POC-GLUCOSE METER 159 mg/dL 70-110 H : TESTED A T [facility] 6720 (BEAKER) (test code = [facility], 1538) 19999: Machine Paint Mixer/Techni patrick ID = [id number] for AILYN ACEVEDO POCT-GLUCOSE [id number] 11:28:00 Test Item Value Reference Range Interpretation Comments POC-GLUCOSE METER 191 mg/dL 70-110 H : TESTED A T [facility] 6720 (BEAKER) (test code = [facility], 1538) 25751: Machine Paint Mixer/Techni patrick ID = [id number] for AILYN ACEVEDO BASIC METABOLIC [id number] 10:05:00 Test Item Value Reference Range Interpretation [...] S NOT APPLICABLE FOR DIALYSIS PATIEN TS. Machine Paint Mixer ID - JESSENIA FPOCT-GLUCOSE [id number] 08:09:00 Test Item Value Reference Range Interpretation Comments POC-GLUCOSE METER 158 mg/dL 70-110 H : TESTED A T [facility] 6720 (BEAKER) (test code = [facility], 1538) 68096: Machine Paint Mixer/Techni patrick ID = [id number] for AILYN ACEVEDO [id number] 07:24:00 Test Item Value Reference Range Interpretation Comments PHOSPHORUS (BEAKER) (test code = 3.5 mg/dL 2.3-4.7 604) Machine Paint Mixer ID - JESSENIA [id number] 07:24:00 Test Item Value Reference Range Interpretation Comments MAGNESIUM (BEAKER) (test code = 1.9 mg/dL 1.6-2.6 627) Machine Paint Mixer ID - JESSENIA FPOCT-GLUCOSE [id number] 21:21:00 Test Item Value Reference Range Interpretation Comments POC-GLUCOSE METER 193 mg/dL 70-110 H : TESTED A T [facility] 6720 (BEAKER) (test code = [facility], 1538) 70991: Machine Paint Mixer/Techni patrick ID = [id number] for YANICK STONE POCT-GLUCOSE [id number] 18:12:00 Test Item Value Reference Range Interpretation Comments POC-GLUCOSE METER 121 mg/dL 70-110 H : TESTED A T [facility] 6720 (BEAKER) (test code = [facility], 1538) 99592: Machine Paint Mixer/Techni patrick ID = [id number] for KELI DIAZ, LATHA POCT-GLUCOSE [id number] 13:00:00 Test Item Value Reference Range Interpretation Comments POC-GLUCOSE METER 163 mg/dL 70-110 H : TESTED A T [facility] 6720 (BEAKER) (test code = [facility], 1538) 49770: Machine Paint Mixer/Techni patrick ID = [id number] for KELI DIAZ, LATHA POCT-GLUCOSE [id number] 08:48:00 Test Item Value Reference Range Interpretation Comments POC-GLUCOSE METER 142 mg/dL 70-110 H : TESTED A T [facility] 6720 (BEAKER) (test code = [facility], 1538) 25703: Machine Paint Mixer/Techni patrick ID = [id number] for KELI DIAZ, LATHA Digoxin [id number] 07:10:00 Test Item Value Reference Range Interpretation Comments Digoxin Lvl (test code = 1.14 ng/mL 0.8-2 71600-3) MIGUEL A (test code = MIGUEL A) Machine Paint Mixer ID - EDASI Lab Interpretation (test Normal code = 96293-1) [facility] CenterDIGOXIN [id number] 07:10:00 Test Item Value Reference Range Interpretation Comments DIGOXIN LEVEL (BEAKER) (test code 1.14 ng/mL 0.80-2.00 = 669) Machine Paint Mixer ID - [id number] 06:55:00 Test Item Value Reference Range Interpretation Comments MAGNESIUM (BEAKER) 1.9 mg/dL 1.6-2.6 Specimen moderately (test code = 627) hemolyzed Machine Paint Mixer ID - [id number] 06:55:00 Test Item Value Reference Range Interpretation Comments PHOSPHORUS (BEAKER) 3.4 mg/dL 2.3-4.7 Specimen moderately (test code = 604) hemolyzed Machine Paint Mixer ID - EDASIPOCT-GLUCOSE [id number] 22:24:00 Test Item Value Reference Range Interpretation Comments POC-GLUCOSE METER 133 mg/dL 70-110 H : TESTED A T [facility] 6720 (BEAKER) (test code = [facility], 153) 87947: Machine Paint Mixer/Techni patrick ID = [id number] for DI AZ, ISSAIRIS POCT-GLUCOSE [id number] 16:41:00 Test Item Value Reference Range Interpretation Comments POC-GLUCOSE METER 151 mg/dL 70-110 H : TESTED A T [facility] 6720 (BEAKER) (test code = [facility], 1538) 55925: Machine Paint Mixer/Techni patrick ID = [id number] for LATI N, GISELL POCT-GLUCOSE [id number] 13:09:00 Test Item Value Reference Range Interpretation Comments POC-GLUCOSE METER 141 mg/dL 70-110 H : TESTED A T [facility] 6720 (BEAKER) (test code = [facility], 1538) 00272: Machine Paint Mixer/Techni patrick ID = [id number] for LATI N, GISELL Heparin Assay - Low Molecular [id number] 11:52:00 Test Item Value Reference Range Interpretation [...] 1.0-2.0 units/mL once daily enoxaparin Ref: CHEST 2012;141:w99z-r59lZvj ase draw 4 hours after enoxaparin dose for accurate level. Lab Interpretation (test Normal code = 40279-4) [facility] CenterHEPARIN ASSAY - LOW MOLECULAR [id number] 11:52:00 Test Item Value Reference Range Interpretation Comments LOVENOX-ANTI 10A (BEAKER) (test 1.05 u/ml 0.60-2.00 code = 1605) Anti-Factor 10-A Level (Heparin Assay for Low Molecular Weight Heparin)Monitoring Guidelines: Blood samples should be obtained 4 hours post subcutaneous injection (time of Peak level) Therapeutic Peak Levels: 0.6-1.0 units/mL twice daily enoxaparin 1.0-2.0 units/mL once daily enoxaparinRef: CHEST 2012;141:y11f-p01dVskemc draw 4 hours after enoxaparin dose for accurate level.POCT-GLUCOSE [id number] 09:01:00 Test Item Value Reference Range Interpretation Comments POC-GLUCOSE METER 150 mg/dL 70-110 H : TESTED A T [facility] 6720 (BEAKER) (test code = NAMITA Brantley [place], 1538) 11878: Machine Paint Mixer/Techni patrick ID = [id number] for GISELL WASSERMAN [id number] 06:44:00 Test Item Value Reference Range Interpretation Comments PHOSPHORUS (BEAKER) (test code = 3.7 mg/dL 2.3-4.7 604) Machine Paint Mixer ID - QIIGQTSQZBBBZA8293-07-03 06:44:00 Test Item Value Reference Range Interpretation Comments MAGNESIUM (BEAKER) (test code = 2.0 mg/dL 1.6-2.6 627) Machine Paint Mixer ID - EDASIBASIC METABOLIC [id number] 06:44:00 Test Item Value Reference Range Interpretation [...] S NOT APPLICABLE FOR DIALYSIS PATIEN TS. Machine Paint Mixer ID - EDASICBC W/PLT COUNT & AUTO [id number] 06:05:00 Test Item Value Reference Range Interpretation [...] PERCENT (BEAKER) (test code = 2801) POCT-GLUCOSE [id number] 05:34:00 Test Item Value Reference Range Interpretation Comments POC-GLUCOSE METER 130 mg/dL 70-110 H : TESTED A T [facility] 6720 (BEAKER) (test code = [facility], 1538) 04312: Machine Paint Mixer/Techni patrick ID = [id number] for NG AMEYAKYA GRUBBS POCT-GLUCOSE [id number] 23:36:00 Test Item Value Reference Range Interpretation Comments POC-GLUCOSE METER 142 mg/dL 70-110 H : TESTED A T [facility] 6720 (BEAKER) (test code = [facility] Zumigo [facility], 1538) 21024: Machine Paint Mixer/Techni patrick ID = [id number] for NG AMEYA, KYA Hemoglobin [id number] 12:08:00 Test Item Value Reference Range Interpretation Comments Hemoglobin A1C (test code = 4548-4) 6.9 % 4.3-6.1 H Lab Interpretation (test code = Abnormal 81327-8) [facility] CenterHEMOGLOBIN [id number] 12:08:00 Test Item Value Reference Range Interpretation Comments HEMOGLOBIN A1C (BEAKER) (test code = 6.9 % 4.3-6.1 H 368) POCT-GLUCOSE [id number] 11:11:00 Test Item Value Reference Range Interpretation Comments POC-GLUCOSE METER 127 mg/dL 70-110 H : TESTED A T [facility] 6720 (BEAKER) (test code = JORGEAZ Fercho [facility], 1538) 07181: Machine Paint Mixer/Techni patrick ID = [id number] for GR RONIT DILLON TSH/Free T4 If [id number] 08:33:00 Test Item Value Reference Range Interpretation Comments TSH (test code = 0.685 See_Comment [Automated 55063-3) message] The system which generated this result transmit murphy reference range : 0.350 - 4.940 uIU/mL. The reference range was not used to interpret this result as normal/abnormal . MIGUEL A (test code = MIGUEL A) Machine Paint Mixer ID - MORENO Lab Interpretation Normal (test code = 28978-2) [facility] CenterTSH/FREE T4 IF [id number] 08:33:00 Test Item Value Reference Range Interpretation Comments THYROID STIMULATING HORMONE 0.685 uIU/mL 0.350-4.940 (BEAKER) (test code = 772) Machine Paint Mixer ID - MORENOPOCT-GLUCOSE [id number] 06:04:00 Test Item Value Reference Range Interpretation Comments POC-GLUCOSE METER 114 mg/dL 70-110 H : TESTED A T [facility] 6720 (BEAKER) (test code = NAMITA Brantley [facility], 1538) 16161: Machine Paint Mixer/Techni patrick ID = [id number] for MO RRIS, CONNER [id number] 04:13:00 Test Item Value Reference Range Interpretation Comments PHOSPHORUS (BEAKER) (test code = 3.8 mg/dL 2.3-4.7 604) Machine Paint Mixer ID - ARLYN [id number] 04:13:00 Test Item Value Reference Range Interpretation Comments MAGNESIUM (BEAKER) (test code = 1.9 mg/dL 1.6-2.6 627) Machine Paint Mixer ID - ARLYN LBASIC METABOLIC [id number] 04:13:00 Test Item Value Reference Range Interpretation [...] S NOT APPLICABLE FOR DIALYSIS PATIEN TS. Machine Paint Mixer ID - PIAYA LCBC W/PLT COUNT & AUTO [id number] 03:28:00 Test Item Value Reference Range Interpretation [...] PERCENT (BEAKER) (test code = 2801) POCT-GLUCOSE [id number] 02:26:00 Test Item Value Reference Range Interpretation Comments POC-GLUCOSE METER 119 mg/dL 70-110 H : [facility] ([facility] (test code = NAMITA [place] [place], 1538) 45871: Machine Paint Mixer/Techni patrick ID = [id number] for CONNER MOON Venous doppler legs [id number] 00:12:14Ejection FractionSLEH ECHO HEARTLAB MKCKESSON CPACSRight Impression1. [...] Date of Study 04/22/2020 Age59 Visit Number [id number] Gender Male Accession Number [id number] Date of 1960 Referring Constance Appiah Room Number [address] [facility] quentin Horowitz Discharge Rn Leighton Escobedo Interpreting Physician NICHO Solorzano ProcedureType of [...] in cm/s ; Diameters are measured in [facility] Hospital[facility]- type Natriuretic Factor (BNP)2020-04-23 20:57:00 Test Item Value Reference Range Interpretation Comments BNP (test code = 82898-1) 85 pg/mL 0-100 MIGUEL A (test code = MIGUEL A) Machine Paint Mixer ID - BS Lab Interpretation (test Normal code = 31922-4) [facility] CenterTRDANIELLA [id number] 20:57:00 Test Item Value Reference Range Interpretation [...] failure, acidosis, acute neurological disease, and persistent tachyarrhythmia.Machine Paint Mixer ID - BSB-TYPE NATRIURETIC FACTOR (BNP)2020-04-23 20:57:00 Test Item Value Reference Range Interpretation Comments B-TYPE NATRIURETIC PEPTIDE (BEAKER) 85 pg/mL 0-100 (test code = 700) Machine Paint Mixer ID - BSHepatic function [id number] 20:50:00 Test Item Value Reference Range Interpretation Comments Protein, Total (test 7.8 See_Comment Specime n code = 2885-2) moderately hemolyzed [Automated message] The system which generated this result transmit murphy reference range : 6.0 - 8.3 gm/dL . The reference range was not u sed to interpret th is result as normal/abnormal . Albumin (test code = 3.5 g/dL 3.5-5 Specime n 97163-3) moderately hemolyzed Total Bilirubin (test 0.5 mg/dL [...] MIGUEL A (test code = MIGUEL A) Machine Paint Mixer ID - BS Lab Interpretation Normal (test code = 58146-2) [facility] CenterHEPATIC FUNCTION [id number] 20:50:00 Test Item Value Reference Range Interpretation [...] Specimen moderately (test code = 347) hemolyzed Machine Paint Mixer ID - BSPOCT-GLUCOSE [id number] 17:04:00 Test Item Value Reference Range Interpretation Comments POC-GLUCOSE METER 99 mg/dL 70-110 : TESTED A T [facility] 6720 (BEAKER) (test code = NAMITA [place] [place], 1538) 64420: Machine Paint Mixer/Techni patrick ID = [id number] for Ivett Barrera (contract) PT/[id number] 11:19:00 Test Item Value Reference Range Interpretation [...] INR is2.5-3.5 for patients wiht mechanical heart valves.Sgxnzvdkvvlzz9920-68-66 10:20:00 Test Item Value Reference Range Interpretation Comments Procalcitonin (test <0.05 See_Comment [Automa murphy code = 38945-8) message] The system which generated this result transmit murphy reference range : <0.05 ng/mL. Th e reference range was not used to interpret this result as normal/abnormal . MIGUEL A (test code = MIGUEL A) SEPSIS RISK (ng/mL)Low: 0.05-0.50Inter mediate: 0.51-2.00High: >=2.01 Lab Interpretation Normal (test code = 45636-4) [facility]:20[facility]00 Test Item Value Reference Range Interpretation Comments PROCALCITONIN (BEAKER) (test code = < ng/mL <0.05 3036) SEPSIS RISK (ng/mL)Low: 0.05-0.50Intermediate: 0.51-2.00High: >=2.01POCT-GLUCOSE [id number] 09:26:00 Test Item Value Reference Range Interpretation Comments POC-GLUCOSE METER 131 mg/dL 70-110 H : TESTED A T [facility] 6720 (BEAKER) (test code = JORGEJAMI Brantley [facility], 1538) [address]: Machine Paint Mixer/Techni patrick ID = [id number] for Anajli Zavala 2D Echo W/Doppler(CW/PW/Color)2020-04-23 08:15:31Ejection FractionSLEH ECHO HEARTLAB MKCKESSON CPACSInterface, External Ris In - 04/23/2020 8:15 AM C DTTransthoracic Echocardiography Report (TTE) Demographics Patient Name LISSETH GONZALEZ Date of Study 04/23/2020 Gender Male Visit Number [id number] Race Black Room Number ED27 Number Date of 1960 Referring Physician Constance Horowitz Age 59 year(s) Discharge Rn Tr Garnett RDCS Interpreting Mario Martinez MD Physician Fellow WILDER [...] LVOT CO: 6 l/min LVOT CI: 2.33 l/min/m^2CRancho Los Amigos National Rehabilitation CenterAPTT2020-07-22 05:48:00 Test Item Value Reference Range Interpretation Comments PARTIAL THROMBOPLASTIN TIME 33.4 seconds 22.5-36.0 (BEAKER) (test code = 760) 6 hours after starting heparin infusion and as indicated per sliding scale [id number] 05:35:00 Test Item Value Reference Range Interpretation Comments PHOSPHORUS (BEAKER) (test code = 3.6 mg/dL 2.3-4.7 604) Machine Paint Mixer ID - [id number] 05:35:00 Test Item Value Reference Range Interpretation Comments MAGNESIUM (BEAKER) (test code = 1.9 mg/dL 1.6-2.6 627) Machine Paint Mixer ID - EDASIBASIC METABOLIC [id number] 05:35:00 Test Item Value Reference Range Interpretation [...] S NOT APPLICABLE FOR DIALYSIS PATIEN TS. Machine Paint Mixer ID - EDASICBC W/PLT COUNT & AUTO [id number] 05:17:00 Test Item Value Reference Range Interpretation [...] (BEAKER) (test code = 2801) Blood gas, [id number] 02:57:00 Test Item Value Reference Range Interpretation Comments pH, Arterial (test code 7.44 7.35-7.45 = 2744-1) pCO2, Arterial (test 36 See_Comment [Autom ated code = 2019-05) message] The system which generated this result [...] % Lab Interpretation Abnormal (test code = 10202-9) [facility], [id number] 02:57:00 Test Item Value Reference Range Interpretation [...] (test code = 1819) 28.0 % TROPONIN [id number] 23:01:00 Test Item Value Reference Range Interpretation [...] failure, acidosis, acute neurological disease, and persistent tachyarrhythmia.Machine Paint Mixer ID - BSLACTIC ACID, VENOUS 2020-04-22 22:49:00 Test Item Value Reference Range Interpretation Comments LACTATE BLOOD VENOUS (2) (BEAKER) 1.17 mmol/L 0.50-2.20 (test code = 2872) Machine Paint Mixer ID - [id number] 22:49:00 Test Item Value Reference Range Interpretation [...] H (BEAKER) (test code = 413) SARS-COV2/RT-PCR ([facility])2020-04-22 22:33:00 Test Item Value Reference Range Interpretation Comments SARS-COV2/RT-PCR (test code Negative Not Detected, Negative, = 3156567) See external report for linked test SARS-COV-2 PERFORMING LAB [facility] (test code = 7613436) Negative results do not preclude SARS-CoV-2 infection [...] of the Act.Fact Sheet for Healthcare Pro viders:https://www.[employer]/Documents/Xpert%20Xpress%20SARS%20CoV-2/Fact%20Sh eets/302-3802%80YFDL-XMM-8%20HEALTHCARE%20PROVIDERS%20FACT%20SHEET.pdfFact Sheet for Healthcare Patients:https://www.[employer]/Documents/Xpert%20Xpress%20SARS%20CoV-2/Fact%20Sheets/302-3801%20SARS-COV -2%20PATIENT%20FACT%20SHEET.pdfPerforming Laboratory:[address] [place], [place] [address]FR, CHEST WITH IV CONTRAST- PE TEST [id number] 21:52:00Reason for exam:->SHORTNESS OF BREATHWhat is the [...] at 9:51 PM . Signed: Olga Alamo MDRepwestern missouri mental [facility] center Verified Date/Time: 04/22/2020 21:52:23 Reading Location: [address] Transitional Reading Room CT chest PE test [id number] 21:52:00Interface, External Ris In - 04/22/2020 9:54 [...] MDReport Verified Date/Time: 04/22/2020 21:52:23 Reading Location: [address] Transitional Reading [id number] 20:42:13Bijal Goldberg MD 04/22/2020 10:47 PMCritical CarePerformed [...] of radiographic studies and re-evaluation of patient's condition.[facility] CenterD-dimer, [id number] 20:32:00 Test Item Value Reference Range Interpretation Comments D-Dimer, Quant (test 19.48 See_Comment H [Autom ated code = 75601-5) message] The system which generated this result [...] range. Lab Interpretation Abnormal (test code = 92124-7) [facility] CenterB-TYPE NATRIURETIC FACTOR (BNP)2020-04-22 20:32:00 Test Item Value Reference Range Interpretation Comments B-TYPE NATRIURETIC PEPTIDE (BEAKER) 136 pg/mL 0-100 H (test code = 700) Machine Paint Mixer ID - [id number] 20:32:00 Test Item Value Reference Range Interpretation [...] of thrombosis is within 95-100% range. TROPONIN [id number] 20:31:00 Test Item Value Reference Range Interpretation [...] failure, acidosis, acute neurological disease, and persistent tachyarrhythmia.Machine Paint Mixer ID - CDPBASIC METABOLIC PANEL 2020-04-22 20:24:00 [...] S NOT APPLICABLE FOR DIALYSIS PATIEN TS. Machine Paint Mixer ID - CDPLACTIC ACID, [id number] 20:21:00 Test Item Value Reference Range Interpretation Comments LACTATE BLOOD VENOUS 1.18 mmol/L 0.50-2.20 Specime n slightly (2) (BEAKER) (test hemolyzed code = 7064) Machine Paint Mixer ID - [id number]/[id number] 20:16:00 Test Item Value Reference Range Interpretation [...] mechanical heart valves.CBC W/PLT COUNT & AUTO [id number] 20:16:00 Test Item Value Reference Range Interpretation [...] = 2801) RAD, CHEST, 1 VIEW, NON [id number] 19:27:00Reason for exam:->SHORTNESS OF BREATHShould this be [...] right basilar effusion and consolidation.. Signed: Olga Alamoepkolby Verified Date/Time: 04/22/2020 19:27:50 Reading Location: [address] Transitional Reading Room ANG, PERC TUNNELED INTRAPERITONEAL CATH, ALL [id number] 14:28:00Reason for Exam:->J90 FINAL REPORT Tunneled right pleural catheter insertion, 04/07/2020. History: Recurrent malignant pleural effusion. Modality:Fluoroscopy. Sedation: Versed 1.5 mg and fentanyl 100 mcg was given intravenously for conscious sedation. Vital signs were monitored throughout the procedure by a nurse, and remained stable. Physician intra-service time was 40 minutes. Loss Prevention Auditor: Nelida. Iron Handler: Nichol. Approach: Right lateral chest. Estimated blood [...] lateral chest wall by blunt dissection. A [place] Pleurex catheter was brought through the tunnel. [...] Spot radiograph of the chest demonstrates the [place] Pleurex catheter to lie in the expected position with its tip overlying the right midlung. Final x-ray demonstrates significant decrease in right pleural effusion without evidence of pneumothorax. Impression: Successful, uncomplicated placement of a right Paddy Pleurex tunneled catheter using fluoroscopic guidance and conscious sedation. Signed: Brock Bruno MDReport Verified Date/Time: 04/08/2020 14:28:27 Reading Location: [facility] P048 Angio Body Reading Room ANG INTRAPERITONEAL PERMANENT [id number] 14:28:00 Interface, External Ris In - 04/08/2020 2:30 PM CDTFINAL REPORT Tunneled right pleural catheter insertion, 04/07/2020. History: Recurrent malignant pleural effusion. Modality:Fluoroscopy. Sedation: Versed 1.5 mg and fentanyl 100 mcg was given intravenously for conscious sedation. Vital signs were monitored throughout the procedure by a nurse, and remained stable. Physician intra- service time was 40 minutes. Loss Prevention Auditor: Nelida. Iron Handler: Nichol. Approach: Right lateral chest. Estimated blood [...] lateral chest wall by blunt dissection. A [place] Pleurex catheter was brought through the tunnel. [...] Spot radiograph of the chest demonstrates the [place] Pleurex catheter to lie in the expected position with its tip overlying the right midlung. Final x-ray demonstrates significant decrease in right pleural effusion without evidence of pneumothorax. Impression: Successful, uncomplicated placement of a right [place] Pleurex tunneled catheter using fluoroscopic guidance and conscious sedation. Signed: Brock Bruno Verified Date/Time: 04/08/2020 14:28:27 Reading Location: [place] [address] Angio Body Reading Room [facility] W/PLT COUNT & AUTO [id number] 07:37:00 Test Item Value Reference Range Interpretation [...] 0-1 PERCENT (BEAKER) (test code = 2801) [id number] 07:16:00 Test Item Value Reference Range Interpretation Comments PARTIAL THROMBOPLASTIN TIME 26.5 seconds 22.5-36.0 (BEAKER) (test code = 760) PROTHROMBIN TIME/[id number] 07:15:00 Test Item Value Reference Range Interpretation [...] is2.5-3.5 for patients wiht mechanical heart valves.CT, [id number] 08:47:00FINAL REPORT CT of the chest, abdomen [...] MDReport Verified Date/Time: 03/13/2020 08:47:59 Reading Location: [facility] C013X [facility] Room CT, CHEST, WITH IV [id number] 08:47:00FINAL REPORT CT of the chest, abdomen [...] Royeport Verified Date/Time: 03/13/2020 08:47:59 Reading Location: [facility] B1 C013X Ortho Consult Reading Room CT, CHEST, WITH IV [id number] 10:57:00FINAL REPORT CT of the chest, abdomen [...] MDReport Verified Date/Time: 01/18/2020 10:57:00 Reading Location: [facility] C013X Ortho Consult Reading Room CT, [id number] 10:57:00FINAL REPORT CT of the chest, abdomen [...] MDReport Verified Date/Time: 01/18/2020 10:57:00 Reading Location: [facility] B1 C013X Ortho Consult Reading Room M-[id number] 08:12:00 Test Item Value Reference Range Interpretation Comments POC-Creatinine (test 0.9 mg/dL 0.6-1.3 : TESTE D AT [facility] 7200 code = 1859) [facility] A, [facility] 7703 0: Machine Paint Mixer/Techni patrick ID = [id number] for RADHA ORELLANAFabiola MARY POC-EGFR (test code 105 mL/min/1.73M2 = 1860) [facility] CenterPOCT-[id number] 08:12:00 Test Item Value Reference Range Interpretation Comments POC-CREATININE 0.9 mg/dL 0.6-1.3 : TESTED AT [facility] ([facility]) (test 7[address] [facility] code = 1859) A, [facility] 7 7030: Machine Paint Mixer/Techni patrcik ID = [id number] for ASHLEY GARNETT KIMBERLEY POC-EGFR 105 mL/min/1.73M2 (BEAKER) (test code = 1860) [id number] 16:03:00Medical Cytology Report Case: [id number] Authorizing Provider: Nima Carranza MD Collected: 10/27/2019 1635 Ordering Location: [address] Received: 10/29/2019 1009 Service Pathologist: Charo Brar MD Specimen: Pleural, Right RIGHT PLEURAL FLUID (CYTOSPINS AND CELL BLOCK): - VERY RARE ATYPICAL CELLS PRESENT (see comment) Signing Patholo gist Direct Phone Line: [phone] signed by Charo Brar MD on 10/30/2019 at 4:03 PMPlease also see cytopathology report [id number].The rare atypical cells noted in this current sample are less than those reportedly noted in the sample previous, [id number]. Please see that report for additional information.Additional testing on this small amount of material does not appear prudentat this time.73527, 16180Ysmjt pleural effusion; HTN, DM, Afib/Aflutter, stage IV colon adenocarcinoma treated by Dr. Solitario with FOLFOX and most recently single agent 5FU admitted with SOB + dry coughrequiring thoracocentesis for R malignant pleural effusion.RIGHT PLEURAL FLUIDReceived 1100 ml brown fluidPrepared cell block(A2) using collodion bag and 4 cytospinsCollected: 840212Cvfnegco: 706220Zlakhprxq.U/S, [id number] 14:02:00 Laterality?->RightReason for exam:->suspected malignant pleural effusionLabs to be Ordered:->Body Fluid Culture (w/Gram Stain, C\\T\\S)Labs to be Ordered:->Glucose+LDH+ProteinLabs to be Ordered:->CytologyFINAL REPORT Exam: Ultrasound guided thoracentesis Clinical History: Right-sided Pleural Effusion Loss Prevention Auditor: Daiana Senior PA-C Supervising Physician: aJn Hanna MD Consent: Benefits and risks were [...] MDReport Verified Date/Time: 10/30/2019 14:02:14 Reading Location: [facility] P0[facility] Ultrasound Reading Room CYTOLOGY 2019-10-30 11:52:00Medical Cytology Report Case: [id number] Authorizing Provider: Nima Carranza MD Collected: 10/25/2019 1568 Ordering Location: [address] Received: 10/26/2019 0959 Service Pathologist: Taylor Ksesler MD Specimen: Pleural, Right RIGHT PLEURAL FLUID [...] cytologic examination of any recurrent pleuraleffusions is recommended.23090, 27494, 53408 x 1, 38027 x 89 y.o. man with hx of Stage IV colon cancer with omental metastases (dx 07/2018, s/p FOLFOX and 5FU chemotherapy) c/b prior large bowel obstruction (s/p stent placement), reported to have malignant pleural effusions (recent thoracentesis 09/2019), and malignant ascitesRIGHT PLEURAL FLUIDReceived 1100 mls bloody fluid; Prepared 4 cytospins, cell block(A2) using collodion bagCollected: 399027Bneizwgg: 634752Vtubynaah.SatisfactoryThe interpretation of this case included the use [...] evaluated Immunohistochemistry technical testing was performed at [facility], Pathology Laboratory where it was [...] qualified to perform high complexity clinical laboratory testing.[facility], Department of Pathology, [address] [place] [address], [place] [address], [facility], De partment of Pathology, [address] [place] [address], [facility], [facility] of [facility], [address] [place] [address], JBSG FLUID CULTURE + GRAM [id number] 15:54:00 Test Item Value Reference Range Interpretation Comments CULTURE (BEAKER) (test No growth code = 1095) GRAM STAIN RESULT <1+ White blood cells (BEAKER) (test code = seen 1123) GRAM STAIN RESULT No organisms seen (BEAKER) (test code = 31829) RAD, CHEST, PA OR AP, 1 [id number] 17:45:00Reason for exam:->right side thoracentesisFINAL REPORT TECHNIQUE: [...] MDReport Verified Date/Time: 10/27/2019 17:45:36 Reading Location: [address] Body Reading Room BODY FLUID CELL COUNT WITH [id number] 17:23:00 Test Item Value Reference Range Interpretation Comments APPEARANCE FLUID (BEAKER) Bloody Clear A (test code = 510) COLOR FLUID (BEAKER) (test Red Colorless, Straw A code = 511) RBC FLUID (BEAKER) (test code 692387 /cu mm <=1 H = 513) ADJUSTED [...] EDTA Tube (test code = 2873) U/S, [id number] 17:08:00Laterality?->RightReason for exam:- >persistent fluid, still symptomatic, [...] 2% lidocaine anesthesia was administered. A 4 [place] catheter was advanced into the pleural cavity and 1300 cc of bloody fluid was removed. The catheter was removed without immediate complication. Samples were sent for analysis. IMPRESSION:Uncomplicated ultrasound-guided right thoracentesis with 1300 cc fluid removed. Signed: Stephanie Duffy MDReport Verified Date/Time: 10/27/2019 17:08:31 Reading Location: [address] Body Reading Room POCT-GLUCOSE METER 2019-10-27 11:21:00 Test Item Value Reference Range Interpretation Comments POC-GLUCOSE METER 162 mg/dL 70-110 H : TESTED A T [facility] 6720 (BEAKER) (test code = NAMITA [place]EN [place], 1538) [address]: Machine Paint Mixer/Techni patrick ID = [id number] for CHASE SHERIDAN POCT-GLUCOSE [id number] 07:21:00 Test Item Value Reference Range Interpretation Comments POC-GLUCOSE METER 136 mg/dL 70-110 H : TESTED A T [facility] 6720 (BEAKER) (test code = NAMITA CHEN [place], 1538) [address]: Machine Paint Mixer/Techni patrick ID = [id number] for CHASE SHERIDAN [id number] 06:31:00 Test Item Value Reference Range Interpretation Comments MAGNESIUM (BEAKER) (test code = 2.1 mg/dL 1.6-2.6 627) Machine Paint Mixer ID - ARGEINS MBASIC METABOLIC [id number] 06:31:00 Test Item Value Reference Range Interpretation [...] S NOT APPLICABLE FOR DIALYSIS PATIEN TS. Machine Paint Mixer ID - ARGENIS MPROTHROMBIN TIME/[id number] 05:51:00 Test Item Value Reference Range Interpretation [...] mechanical heart valves.CBC W/PLT COUNT & AUTO [id number] 05:41:00 Test Item Value Reference Range Interpretation [...] PERCENT (BEAKER) (test code = 2801) POCT-GLUCOSE [id number] 21:40:00 Test Item Value Reference Range Interpretation Comments POC-GLUCOSE METER 140 mg/dL 70-110 H : [facility] ([facility]ER[facility] (test code = NAMITA Brantley [place], 1538) [address]: Machine Paint Mixer/Techni patrick ID = [id number] for Chayito Yoon [id number] 18:44:00 Test Item Value Reference Range Interpretation Comments MAGNESIUM (BEAKER) 2.1 mg/dL 1.6-2.6 Specimen slightly (test code = 627) hemolyzed Machine Paint Mixer ID - MAHAD EBASIC METABOLIC [id number] 18:44:00 Test Item Value Reference Range Interpretation [...] S NOT APPLICABLE FOR DIALYSIS PATIEN TS. Machine Paint Mixer ID - MAHAD ELACTATE DEHYDROGENASE (LDH)2019-10-26 18:44:00 Test Item Value Reference Range Interpretation Comments LACTATE DEHYDROGENASE 345 U/L 125-220 H Specim en slightly (BEAKER) (test code = hemoly zed 635) Machine Paint Mixer ID - MAHAD EPOCT-GLUCOSE [id number] 16:31:00 Test Item Value Reference Range Interpretation Comments POC-GLUCOSE METER 143 mg/dL 70-110 H : TESTED A T [facility] 6720 (BEAKER) (test code = [facility], 1538) [address]: Machine Paint Mixer/Techni patrick ID = [id number] for CHASE SHERIDAN POCT-GLUCOSE [id number] 10:51:00 Test Item Value Reference Range Interpretation Comments POC-GLUCOSE METER 135 mg/dL 70-110 H : TESTED A T [facility] 6720 (BEAKER) (test code = NAMITA Brantley [facility], 1538) [address]: Machine Paint Mixer/Techni patrick ID = [id number] for MARIELLE SHERIDANLEM CBC W/PLT COUNT & AUTO [id number] 10:37:00 Test Item Value Reference Range Interpretation [...] PERCENT (BEAKER) (test code = 2801) POCT-GLUCOSE [id number] 04:16:00 Test Item Value Reference Range Interpretation Comments POC-GLUCOSE METER 183 mg/dL 70-110 H : TESTED A T [facility] 6720 (BEAKER) (test code = [facility], 1538) [address]: Machine Paint Mixer/Techni patrick ID = [id number] for LETA COX BODY FLUID CELL COUNT WITH [id number] 21:39:00 Test Item Value Reference Range Interpretation Comments APPEARANCE FLUID (BEAKER) Bloody Clear A (test code = 510) COLOR FLUID (BEAKER) (test Red Colorless, Straw A code = 511) RBC FLUID (BEAKER) (test code 263067 /cu mm <=1 H = 513) ADJUSTED [...] EDTA Tube (test code = 2873) POCT-GLUCOSE [id number] 19:01:00 Test Item Value Reference Range Interpretation Comments POC-GLUCOSE METER 123 mg/dL 70-110 H : TESTED A T [facility] 6720 (BEAKER) (test code = NAMITA [place], 1538) [address]: Machine Paint Mixer/Techni patrick ID = [id number] for BEVERLY DICKSON RAD, CHEST, 1 VIEW, NON [id number] 18:04:00Reason for exam:->post right sided thoracentesisShould this [...] in the upper SVC. Signed: Jair Venegas MDRort Verified Date/Time: 10/25/2019 18:04:22 Reading Location: [address] Transitional Reading Room POCT-GLUCOSE [id number] 12:43:00 Test Item Value Reference Range Interpretation Comments POC-GLUCOSE METER 144 mg/dL 70-110 H : TESTED A T [facility] 6720 (BEAKER) (test code = NAMITA [place], 1538) [address]: Machine Paint Mixer/Techni patrick ID = [id number] for BEVERLY DICKSON [id number] 06:05:00 Test Item Value Reference Range Interpretation Comments MAGNESIUM (BEAKER) (test code = 2.1 mg/dL 1.6-2.6 627) Machine Paint Mixer ID - BSBASIC METABOLIC [id number] 06:05:00 Test Item Value Reference Range Interpretation [...] S NOT APPLICABLE FOR DIALYSIS PATIEN TS. Machine Paint Mixer ID - [id number] 05:00:00 Test Item Value Reference Range Interpretation [...] mechanical heart valves.CBC W/PLT COUNT & AUTO [id number] 04:47:00 Test Item Value Reference Range Interpretation [...] PERCENT (BEAKER) (test code = 2801) POCT-GLUCOSE [id number] 21:38:00 Test Item Value Reference Range Interpretation Comments POC-GLUCOSE METER 170 mg/dL 70-110 H : TESTED A T [facility] 6720 (BEAKER) (test code = NAMITA [place], 1538) [address]: Machine Paint Mixer/Techni patrick ID = [id number] for MARLENY SETH POCT-GLUCOSE [id number] 17:40:00 Test Item Value Reference Range Interpretation Comments POC-GLUCOSE METER 211 mg/dL 70-110 H : TESTED A T [facility] 6720 (BEAKER) (test code = [facility], 1538) [address]: Machine Paint Mixer/Techni patrick ID = [id number] for Vi ctEstefany engel POCT-GLUCOSE [id number] 11:07:00 Test Item Value Reference Range Interpretation Comments POC-GLUCOSE METER 168 mg/dL 70-110 H : TESTED A T [facility] 6720 (BEAKER) (test code = [facility], 1538) [address]: Machine Paint Mixer/Techni patrick ID = [id number] for Vi ctorEstefany POCT-GLUCOSE [id number] 07:58:00 Test Item Value Reference Range Interpretation Comments POC-GLUCOSE METER 129 mg/dL 70-110 H : TESTED A T [facility] 6720 (BEAKER) (test code = [facility], 1538) [address]: Machine Paint Mixer/Techni patrick ID = [id number] for Татьяна ctorEstefany [id number] 06:35:00 Test Item Value Reference Range Interpretation Comments MAGNESIUM (BEAKER) (test code = 2.1 mg/dL 1.6-2.6 627) Machine Paint Mixer ID - ARGENIS MBASIC METABOLIC [id number] 06:35:00 Test Item Value Reference Range Interpretation [...] S NOT APPLICABLE FOR DIALYSIS PATIEN TS. Machine Paint Mixer ID - ARGENIS MCARCINOEMBRYONIC ANTIGEN (CEA)2019-10-24 06:24:00 Test Item Value Reference Range Interpretation Comments CARCINOEMBRYONIC ANTIGEN (BEAKER) 100.3 ng/mL 0.0-5.0 H (test code = 685) Machine Paint Mixer DARYN MORE MTSH/FREE T4 IF [id number] 06:24:00 Test Item Value Reference Range Interpretation Comments THYROID STIMULATING HORMONE 1.00 uIU/mL 0.35-4.94 (BEAKER) (test code = 772) Machine Paint Mixer ID - ARGENIS MTROPONIN [id number] 06:16:00 Test Item Value Reference Range Interpretation [...] failure, acidosis, acute neurological disease, and persistent tachyarrhythmia.Machine Paint Mixer ID Carmencita MORE MLACTATE DEHYDROGENASE (LDH)2019-10-24 06:08:00 Test Item Value Reference Range Interpretation Comments LACTATE DEHYDROGENASE (BEAKER) (test 209 U/L 125-220 code = 635) Machine Paint Mixer DARYN MORE MCBC W/PLT COUNT & AUTO [id number] 05:43:00 Test Item Value Reference Range Interpretation [...] PERCENT (BEAKER) (test code = 2801) POCT-GLUCOSE [id number] 00:33:00 Test Item Value Reference Range Interpretation Comments POC-GLUCOSE METER 109 mg/dL 70-110 : TESTED A T [facility] 6720 (BEAKER) (test code = NAMITA Brantley [facility], 1538) [address]: Machine Paint Mixer/Techni patrick ID = [id number] for Chayito Yoon TROPONIN [id number] 17:41:00 Test Item Value Reference Range Interpretation [...] failure, acidosis, acute neurological disease, and persistent tachyarrhythmia.Machine Paint Mixer ID - BSPOCT-GLUCOSE METER 2019-10-23 17:16:00 Test Item Value Reference Range Interpretation Comments POC-GLUCOSE METER 60 mg/dL 70-110 L : TESTED A T [facility] 6720 (ZACHARY) (test code = NAMITA [place], 1538) [address]: Machine Paint Mixer/Techni patrick ID = [id number] for Vict or, Estefany RAD, CHEST, 2 [id number] 14:27:00Reason for exam:->SHORTNESS OF BREATHx3 months; worse over last month; recent admission in [facility] REPORT INDICATION: SHORTNESS OF BREATH COMPARISON: July 16, 2019 TECHNIQUE: Frontal and lateral views of the chest. FINDINGS: Lungs and pleura: Moderate right effusion and adjacent compressive atelectasis..Heart and mediastinum: Normal heart size. Unremarkable mediastinal contours.Osseous structures: No acute abnormality.Additional findings: Port-A-Cath tip overlies the SVC. IMPRESSION: Moderate right effusion with adjacent compressive atelectasis Signed: Twila Escobar Verified Date/Time: 10/23/2019 14:27:38 Reading Location: [facility] Radiology Reading Room [id number] 13:25:00 Test Item Value Reference Range Interpretation Comments PARTIAL THROMBOPLASTIN TIME 26.1 sec 22.5-36.0 (BEAKER) (test code = 760) PROTHROMBIN TIME/[id number] 13:25:00 Test Item Value Reference Range Interpretation Comments PROTIME (KEVINAKER) (test code = 759) 11.0 sec 11.7-14.7 [...] CT, CHEST, WITH IV CONTRAST- PE TEST [id number] 12:20:00Reason for exam:- >SHORTNESS OF BREATHx3 months; worse over last month; [place]?->No SedationFINAL REPORT [...] mass. Signed: Stefanie Roy MDReport Verified Date/Time: 10/23/2019 12:20:34 Reading Location: [facility] C013X Ortho Consult Reading Room CT, ABDOMEN [...] Royort Verified Date/Time: 10/23/2019 12:20:34 Reading Location: [address] Consult Reading Room URINALYSIS WITH MICROSCOPIC IF [id number] 12:10:00 Test Item Value Reference Range Interpretation [...] SOURCE(BEAKER) (test code = 2795) BASIC METABOLIC [id number] 11:56:00 Test Item Value Reference Range Interpretation [...] 93 pg/mL 0-100 (test code = 700) [id number] 11:49:00 Test Item Value Reference Range Interpretation Comments PHOSPHORUS (BEAKER) 3.7 mg/dL 2.3-4.7 Specimen slightly (test code = 604) hemolyzed TROPONIN [id number] 11:49:00 Test Item Value Reference Range Interpretation [...] acute neurological disease, and persistent tachyarrhythmia.BLOOD GAS, [id number] 11:22:00 Test Item Value Reference Range Interpretation [...] (test code = 1819) 100.0 % POCT-GLUCOSE [id number] 11:13:00 Test Item Value Reference Range Interpretation Comments POC-GLUCOSE METER 69 mg/dL 70-110 L : TESTED A T [facility] 7200 (BEAKER) (test code = [place] DGE BLDG A, 1538) [facility] 7703 0: Machine Paint Mixer/Techni patrick ID = [id number] for LEONORU GALAN CONNER RAD, CHEST, 2 [id number] 14:00:00Reason for Exam:->SOB shortness of breathFINAL REPORT [...] MDReport Verified Date/Time: 07/16/2019 14:00:37 Reading Location: [address] Radiology Reading Room CT, CHEST, WITH IV [id number] 13:11:00Reason for Exam:->C18.9FINAL REPORT CT of the [...] MDReport Verified Date/Time: 07/02/2019 13:11:30 Reading Location: [place] 60823X Ortho Consult Reading Room CT, [id number] 13:11:00Reason for Exam:->C18.9FINAL REPORT CT of the [...] MDReport Verified Date/Time: 07/02/2019 13:11:30 Reading Location: [facility] C013X Ortho Consult Reading Room [id number] 07:46:00 Test Item Value Reference Range Interpretation Comments POC-CREATININE 0.7 mg/dL 0.6-1.3 TESTED AT [facility] 7200 ([facility]) (test RANDY D G A code = 1859) [facility] 7703 0 POC-EGFR 140 mL/min/1.73M2 ([facility]) (test code = 1860) CT, [id number] 09:11:00FINAL REPORT EXAM: CT Chest, Abdomen and [...] Date/Time: 04/17/2019 09:11:14 CT, CHEST, WITH IV [id number] 09:11:00FINAL REPORT EXAM: CT Chest, Abdomen and [...] Date/Time: 04/17/2019 09:11:14 CT, CHEST, WITH IV [id number] 15:06:00FINAL REPORT CT CHEST, ABDOMEN, AND PELVIS [...] attention on subsequent follow-ups. Signed: Og Soriano [facility] Verified Date/Time: 12/25/2018 15:06:57 CT, ABDOMEN, WITHOUT / WITH IV [id number] 15:06:[address] CHEST, ABDOMEN, AND [...] attention on subsequent follow-ups. Signed: Og Soriano [facility] Verified Date/Time: 12/25/2018 15:06:57 CT, PELVIS, WITH IV [id number] 15:06:00FINAL REPORT CT CHEST, ABDOMEN, AND PELVIS [...] Og Soriano MDReport Verified Date/Time: 12/25/2018 15:06:57 [id number] 08:55:00 Test Item Value Reference Range Interpretation Comments POC-CREATININE 0.7 mg/dL 0.6-1.3 TESTED AT [facility] 7200 ([facility]) (test RANDY [facility] G A code = 1859) [facility] 7703 0 POC-EGFR 140 mL/min/1.73M2 ([facility]) (test code = 1860) TISSUE [id number] 13:08:00Surgical Pathology Report Case: [id number] Authorizing Provider: Jessi Turcios MD Collected: 07/17/2018 1514 Ordering Location: [address] Received: 07/17/2018 1607 Service Pathologist: Allen [...] and its performance characteristics determined by [facility], Pathology Laboratory. It has not been cleared [...] qualified to perform high complexity clinical laboratory testing.[id number] x 4Addendum electronically signed by Star Trejo MD on 07/20/2018 at 10:07 AMPART A OMENTAL BIOPSY:MODERATELY DIFFERENTIATED ADENOCARCINOMA.SEE DIAGNOSTIC COMMENT. Signing Pathologist Direct Phone Line: [phone] signed by Allen Velazquez MD on 07/19/2018 [...] and imaging studies is required for complete interpretation.07958, 35596, [id number] givenOmentum The specimen is received in a formalin-filled container and labeledwith the patient's information labeled "omentum" and consists of four off white core biopsies ranging from 0.2 to 0.4 cm, submitted entirely A1.CG/pl PERFORMED.The following special studies were performed on this case and the interpretation is incorporated in the diagnostic report above:BLOCK A1- CK7,CK20, CDX2, TTF1, PSA, GA18Vzs immunohistochemistry test was developed and its performance characteristics determined by [facility], Pathology Laboratory. It has not been cleared [...] to perform high complexity clinical laboratory testing.POCT-GLUCOSE [id number] 12:55:00 Test Item Value Reference Range Interpretation Comments POC-GLUCOSE METER 115 mg/dL 70-110 H TESTED AT [facility] 6720 ([facility]) (test code = NAMITA Brantley [facility] 1538) [address] POCT-GLUCOSE [id number] 08:52:00 Test Item Value Reference Range Interpretation Comments POC-GLUCOSE METER 137 mg/dL 70-110 H TESTED AT [facility] 6720 ([facility]) (test code = [facility] Fercho [facility] 1538) [address] CARCINOEMBRYONIC ANTIGEN (CEA)2018-09-13 07:11:00 Test Item Value Reference Range Interpretation Comments CARCINOEMBRYONIC ANTIGEN 1302.5 ng/mL 0.0-5.0 H (AKER) (test code = 685) [id number] 07:04:00 Test Item Value Reference Range Interpretation Comments MAGNESIUM (BEAKER) (test code = 1.7 mg/dL 1.6-2.6 627) BASIC METABOLIC [id number] 07:04:00 Test Item Value Reference Range Interpretation [...] APPLICABLE FOR DIALYSIS PATIEN TS. HEPATIC FUNCTION [id number] 07:04:00 Test Item Value Reference Range Interpretation [...] 6-55 347) CBC W/PLT COUNT & AUTO [id number] 06:29:00 Test Item Value Reference Range Interpretation [...] PERCENT (BEAKER) (test code = 2801) POCT-GLUCOSE [id number] 01:02:00 Test Item Value Reference Range Interpretation Comments POC-GLUCOSE METER 130 mg/dL 70-110 H TESTED AT [facility] 6720 (BEAKER) (test code = NAMITA Brantley [facility] 1538) [address] POCT-GLUCOSE [id number] 17:48:00 Test Item Value Reference Range Interpretation Comments POC-GLUCOSE METER 119 mg/dL 70-110 H TESTED AT [facility] 6720 (BEAKER) (test code = NAMITA Brantley [facility] 1538) [address] POCT-GLUCOSE [id number] 12:27:00 Test Item Value Reference Range Interpretation Comments POC-GLUCOSE METER 154 mg/dL 70-110 H TESTED AT [facility] 6720 (BEAKER) (test code = NAMITA Brantley [facility] 1538) [address] POCT-GLUCOSE [id number] 07:44:00 Test Item Value Reference Range Interpretation Comments POC-GLUCOSE METER 243 mg/dL 70-110 H TESTED AT [facility] 6720 (BEAKER) (test code = NAMITA Brantley [facility] 1538) [address] [id number] 06:49:00 Test Item Value Reference Range Interpretation Comments MAGNESIUM (BEAKER) (test code = 1.8 mg/dL 1.6-2.6 627) BASIC METABOLIC [id number] 06:49:00 Test Item Value Reference Range Interpretation [...] PATIEN TS. CBC W/PLT COUNT & AUTO [id number] 06:29:00 Test Item Value Reference Range Interpretation [...] PERCENT (BEAKER) (test code = 2801) POCT-GLUCOSE [id number] 00:36:00 Test Item Value Reference Range Interpretation Comments POC-GLUCOSE METER 141 mg/dL 70-110 H TESTED AT [facility] 6720 ([facility]) (test code = [facility] 1538) [address] [place], CONTINUOUS PICKLING LINE PICKLER HELPER IN OR/30 MINUTE [id number] 19:40:00Reason for exam:- >DURING PROCEDUREBRONCHFINAL REPORT Fluoroscopy 5 views intraoperative 09/11/2018 7:39 PM CLINICAL HISTORY: Instrument localization COMPARISON: None available IMPRESSION: Please correlate imaging report findings with the procedure note prepared by Dr. Cordova, as an intra- procedure imaging consultation was not requested. Reported fluoroscopy time: 525.3 seconds. Signed: Latricia Gasca Verified Date/Time: 09/11/2018 19:40:28 Reading Location: [facility] Reading Room Electron [email or web address] signed by: LATRICIA GASCA M.D. on 09/11/2018 07:40 PMPOCT-GLUCOSE [id number] 18:32:00 Test Item Value Reference Range Interpretation Comments POC-GLUCOSE METER 116 mg/dL 70-110 H TESTED AT [facility] 6720 (BEAKER) (test code = NAMITA Brantley [place] 1538) [address] POCT-GLUCOSE [id number] 12:08:00 Test Item Value Reference Range Interpretation Comments POC-GLUCOSE METER 156 mg/dL 70-110 H TESTED AT [facility] 6720 (BEAKER) (test code = NAMITA Brantley [place] 1538) [address] [id number] 09:06:00 Test Item Value Reference Range Interpretation Comments MAGNESIUM (BEAKER) (test code = 1.9 mg/dL 1.6-2.6 627) [id number] 09:06:00 Test Item Value Reference Range Interpretation Comments PHOSPHORUS (BEAKER) (test code = 3.8 mg/dL 2.3-4.7 604) BASIC METABOLIC [id number] 06:49:00 Test Item Value Reference Range Interpretation [...] NOT APPLICABLE FOR DIALYSIS PATIEN TS. POCT-GLUCOSE [id number] 06:36:00 Test Item Value Reference Range Interpretation Comments POC-GLUCOSE METER 161 mg/dL 70-110 H TESTED AT [facility] 6720 (BEAKER) (test code = NAMITA [place] 1539) [address] CBC W/PLT COUNT & AUTO [id number] 06:28:00 Test Item Value Reference Range Interpretation [...] PERCENT (BEAKER) (test code = 2801) POCT-GLUCOSE [id number] 01:34:00 Test Item Value Reference Range Interpretation Comments POC-GLUCOSE METER 135 mg/dL 70-110 H TESTED AT [facility] 6720 (BEAKER) (test code = [facility] 1538) [address] POCT-GLUCOSE [id number] 09:00:00 Test Item Value Reference Range Interpretation Comments POC-GLUCOSE METER 195 mg/dL 70-110 H TESTED AT [facility] 6720 ([facility]) (test code = [facility] 1538) [address] BLOOD [id number] 06:00:00 Test Item Value Reference Range Interpretation Comments CULTURE (BEAKER) (test No growth in 5 days code = 1095) BLOOD [id number] 06:00:00 Test Item Value Reference Range Interpretation Comments CULTURE (BEAKER) (test No growth in 5 days code = 1095) BASIC METABOLIC [id number] 05:43:00 Test Item Value Reference Range Interpretation [...] PATIEN TS. CBC W/PLT COUNT & AUTO [id number] 05:01:00 Test Item Value Reference Range Interpretation [...] PERCENT (BEAKER) (test code = 2801) POCT-GLUCOSE [id number] 22:22:00 Test Item Value Reference Range Interpretation Comments POC-GLUCOSE METER 171 mg/dL 70-110 H TESTED AT [facility] 6720 (ZACHARY) (test code = NAMITA Brantley [facility] 1538) [address] ANG, TUNNEL CATH CENTRAL INS W/PORT [id number] 18:25:00Reason for exam:- >need for chemotherapy.FINAL REPORT Right internal jugular chest port insertion History: Patient requires access for chemotherapy administration. Modality: Sonography andfluoroscopy. Sedation: Versed 1.5 mg and fentanyl 50 mcg given intravenously for conscious sedation. Vital signs were monitored throughout the procedure by a nurse, and remained stable. Physician intra-service time was 30 minutes. Loss Prevention Auditor: Singh Perez MD Iron Handler: Noé. Approach: Right internal jugular vein Estimated [...] needle into the right atrium. A 4 [place] micropuncture sheath was placed. A subcutaneous tunnel [...] MDReport Verified Date/Time: 07/19/2018 18:25:29 Reading Location: [address] Body Reading Room POCT-GLUCOSE [id number] 16:53:00 Test Item Value Reference Range Interpretation Comments POC-GLUCOSE METER 124 mg/dL 70-110 H TESTED AT [place] [address] ([facility]) (test code = NAMITA Brantley [place] 188778) [address] TISSUE [id number] 16:29:00Surgical Pathology Report Case: [id number] Authorizing Provider: Julius Sands MD Collected: 07/18/2018 1502 Ordering Location: [address] Received: 07/19/2018 0751 Service Pathologist: Charo Brar MD Specimen: Large Intestine, Colon - Left/Descending, mass LEFT/DESCENDING COLON, BIOPSY: - INVASIVE MODERATELY DIFFERENTIATED ADENOCARCINOMA, SITUATED PREDOMINANTLY BENEATH THE MUSCULARIS MUCOSA, WITH FOCAL NECROSISMO/pl Signing Pathologist Direct Phone Line: [phone] signed by Charo Brar MD on 07/19/2018 at 4:29 [id number] of colon, colonic mass Left descending colon [...] Other significant features are not noted. POCT-GLUCOSE [id number] 12:32:00 Test Item Value Reference Range Interpretation Comments POC-GLUCOSE METER 116 mg/dL 70-110 H TESTED AT [facility] 6720 (BEAKER) (test code = [facility] 1538) [address] POCT-GLUCOSE [id number] 09:22:00 Test Item Value Reference Range Interpretation Comments POC-GLUCOSE METER 130 mg/dL 70-110 H TESTED AT [facility] 6720 (BEAKER) (test code = [facility] 1538) [address] BASIC METABOLIC [id number] 06:03:00 Test Item Value Reference Range Interpretation [...] NOT APPLICABLE FOR DIALYSIS PATIEN TS. PROTHROMBIN [id number] 05:34:00 Test Item Value Reference Range Interpretation [...] ABSOLUTE COUNT 1.31 K/ L 1.32-3.57 L ([facility]) (test code = 414) MONOCYTES ABSOLUTE COUNT (AKER) 0.98 K/ L 0.30-0.82 H (test code = 415) EOSINOPHILS ABSOLUTE COUNT 0.20 K/ L 0.04-0.54 ([facility]) (test code = 416) BASOPHILS ABSOLUTE COUNT (AKER) 0.05 K/ L 0.01-0.08 (test code = 417) IMMATURE GRANULOCYTES-RELATIVE 1 % 0-1 PERCENT ([facility]) (test code = 2801) POCT-GLUCOSE [id number] 23:21:00 Test Item Value Reference Range Interpretation Comments POC-GLUCOSE METER 127 mg/dL 70-110 H TESTED AT [place] [address] ([facility]) (test code = [facility] Fercho [facility] 1538) [address] POCT-GLUCOSE [id number] 17:29:00 Test Item Value Reference Range Interpretation Comments POC-GLUCOSE METER 116 mg/dL 70-110 H TESTED AT [place] [address] ([facility]) (test code = [facility] 1538) [address] POCT-GLUCOSE [id number] 15:41:00 Test Item Value Reference Range Interpretation Comments POC-GLUCOSE METER 122 mg/dL 70-110 H TESTED AT [place] [address] ([facility]) (test code = [facility] 1538) [address] [id number] 15:40:00Medical Cytology Report Case: [id number] Authorizing Provider: Jessi Turcios MD Collected: 07/17/2018 1435 Ordering Location: [address] Received: 07/18/2018 0837 Service Pathologist: Alvin Arroyo MD Specimen: Peritoneal Fluid PERITONEAL FLUID (CYTOSPINS): - SUSPICIOUS FOR MALIGNANCY Signing Pathologist Direct Phone Line: [phone] signed by Alvin Arroyo MD on 07/18/2018 at 3:40 PMThere are a few atypical clusters that are suspicious for malignancy in a background of reactive mesothelial cells and chronic inflammation.[id number]; colon mass and omental nodules presents for CT-guided core biopsy of omentalnodulesPERITONEAL FLUIDPrepared 4 cytospins from 4 ml yellow blood-tinged fluidCollected: [id number]: [id number] [facility], Department of Pathology, [address] [place] [address], [facility], [address] [place] [address], [facility], [facility] of [facility], [address] [place] [address], OZBO-GLUCOSE [id number] 11:53:00 Test Item Value Reference Range Interpretation Comments POC-GLUCOSE METER 111 mg/dL 70-110 H TESTED AT [place] [address] (BEAKER) (test code = NAMITA Brantley [facility] 1538) [address] POCT-GLUCOSE [id number] 06:48:00 Test Item Value Reference Range Interpretation Comments POC-GLUCOSE METER 124 mg/dL 70-110 H TESTED AT [place] [address] ([facility]) (test code = NAMITA Brantley [facility] 1538) [address] POCT-GLUCOSE [id number] 23:34:00 Test Item Value Reference Range Interpretation Comments POC-GLUCOSE METER 133 mg/dL 70-110 H TESTED AT [place] [address] (BEAKER) (test code = [facility] 1538) [address] BODY FLUID CELL COUNT WITH [id number] 18:38:00 Test Item Value Reference Range Interpretation [...] Tube (BEAKER) (test code = 2873) POCT-GLUCOSE [id number] 17:54:00 Test Item Value Reference Range Interpretation Comments POC-GLUCOSE METER 145 mg/dL 70-110 H TESTED AT [facility] 6720 (BEAKER) (test code = NAMITA [place] 1538) [address] CT, BIOPSY, [id number] 16:57:00Reason for exam:->Need biopsy of omentum for [...] core biopsy of omental nodules. Signed: Stephanie Duffyort Verified Date/Time: 07/17/2018 16:57:37 Reading Location: [address] Body Reading Room ALBUMIN, BODY [id number] 16:12:00 Test Item Value Reference Range Interpretation Comments ALBUMIN FLUID (BEAKER) (test code = 2.9 gm/dL 501) Reference Range: No Normals Assay performance has not been validated for this type of specimen.PROTEIN, BODY [id number] 16:12:00 Test Item Value Reference Range Interpretation Comments PROTEIN FLUID (BEAKER) (test code = 5.0 g/dL 579) Absence of reference range indicates that normals have not been defined.Assay performance has not been validated for this type of specimen.[id number] 13:18:00 Test Item Value Reference Range Interpretation [...] PERCENT (BEAKER) (test code = 2801) CT, [id number] 12:37:00CT abdomen pelvis with IV and PO [...] MDReport Verified Date/Time: 07/17/2018 12:37:32 Reading Location: [facility] B1 C013Y CT Body Reading Room , CHEST, WITH [id number] 12:37:00FINAL REPORT TECHNIQUE: CT of the chest, [...] MDReport Verified Date/Time: 07/17/2018 12:37:32 Reading Location: [facility] C013Y CT Body Reading Room -GLUCOSE [id number] 12:31:00 Test Item Value Reference Range Interpretation Comments POC-GLUCOSE METER 188 mg/dL 70-110 H TESTED AT [facility] 6720 ([facility]) (test code = NAMITA Brantley [facility] 1538) [address] CBC W/PLT COUNT & AUTO [id number] 12:21:00 Test Item Value Reference Range Interpretation Comments WHITE BLOOD CELL COUNT ([facility]) 10.1 K/ L 3.5-10.5 (test code = 775) RED BLOOD CELL COUNT ([facility]) 4.41 M/ L 4.63-6.08 L (test code = 761) HEMOGLOBIN (BEAKER) (test code = 13.1 GM/DL 13.7-17.5 L 410) HEMATOCRIT ([facility]) (test code = 42.6 % 40.1-51.0 411) MEAN CORPUSCULAR VOLUME ([facility]) 96.6 fL 79.0-92.2 H (test code = [...] PERCENT (BEAKER) (test code = 2801) HEMOGLOBIN [id number] 10:07:00 Test Item Value Reference Range Interpretation Comments HEMOGLOBIN A1C (BEAKER) (test code = 5.6 % 4.3-6.1 368) BASIC METABOLIC [id number] 06:33:00 Test Item Value Reference Range Interpretation Comments SODIUM (BEAKER) 138 meq/L 136-145 (test code = 381) POTASSIUM (BEAKER) 3.4 meq/L 3.5-5.1 L (test code = 379) CHLORIDE (BEAKER) 105 meq/L 98-107 (test code = 382) CO2 (BEAKER) (test 24 meq/L 22-29 code = 355) BLOOD UREA NITROGEN 10 mg/dL 7-21 ([facility]) (test code = 354) CREATININE ([facility]) 0.80 mg/dL 0.57-1.25 (test code = 358) GLUCOSE RANDOM 122 mg/dL 70-105 H ([facility]) (test code = 652) CALCIUM ([facility]) 8.5 mg/dL 8.4-10.2 (test code = 697) EGFR ([facility]) (test 121 mL/min/1.73 ESTIM ATED GFR IS code = 1092) sq m NOT ACCURATE CREATININE CLEARANCE IN PREDICTING GLOMERULAR FILTRATION RATE . ESTIMATED GFR I S NOT APPLICABLE FOR DIALYSIS PATIEN TS. POCT-GLUCOSE [id number] 05:17:00 Test Item Value Reference Range Interpretation Comments POC-GLUCOSE METER 133 mg/dL 70-110 H TESTED AT [place] [address] ([facility]) (test code = NAMITA Brantley [facility] 1538) [address] POCT-GLUCOSE [id number] 23:45:00 Test Item Value Reference Range Interpretation Comments POC-GLUCOSE METER 121 mg/dL 70-110 H TESTED AT [place] [address] ([facility]) (test code = NAMITA Brantley [place] 1538) [address] POCT-GLUCOSE [id number] 17:45:00 Test Item Value Reference Range Interpretation Comments POC-GLUCOSE METER 112 mg/dL 70-110 H TESTED AT [place] [address] ([facility]) (test code = NAMITA Brantley [place] 1538) [address] [id number] 14:30:00 Test Item Value Reference Range Interpretation Comments ALBUMIN ([facility]) (test code = 1145) 3.9 g/dL 3.5-5.0 POCT-GLUCOSE [id number] 12:40:00 Test Item Value Reference Range Interpretation Comments POC-GLUCOSE METER 110 mg/dL 70-110 TESTED AT [place] [address] ([facility]) (test code = NAMITA Brantley [place] 1538) [address] POCT-GLUCOSE [id number] 08:32:00 Test Item Value Reference Range Interpretation Comments POC-GLUCOSE METER 137 mg/dL 70-110 H TESTED AT [place] [address] ([facility]) (test code = NAMITA Brantley [place] 1538) [address] BASIC METABOLIC [id number] 06:10:00 Test Item Value Reference Range Interpretation [...] NOT APPLICABLE FOR DIALYSIS PATIEN TS. POCT-GLUCOSE [id number] 00:28:00 Test Item Value Reference Range Interpretation Comments POC-GLUCOSE METER 108 mg/dL 70-110 TESTED AT [facility] 6720 ([facility]) (test code = NAMITA Brantley [facility] 1538) [address] POCT-GLUCOSE [id number] 00:28:00 Test Item Value Reference Range Interpretation Comments POC-GLUCOSE METER 107 mg/dL 70-110 TESTED AT [facility] 6720 ([facility]) (test code = NAMITA Brantley [facility] 1538) [address] POCT-GLUCOSE [id number] 17:40:00 Test Item Value Reference Range Interpretation Comments POC-GLUCOSE METER 137 mg/dL 70-110 H TESTED AT [facility] 6720 ([facility]) (test code = [facility] Fer[employer] [facility] 1538) [address] [place], CONTINUOUS [place] [employer] HELPER IN OR/30 MINUTE [id number] 14:44:00INTRA OP IMAGINGReason for exam:->BOWEL OBSTRUCTIONFINAL REPORT Intraoperative fluoroscopy. CLINICAL HISTORY: BOWEL OBSTRUCTION.FINDINGS: Seven fluoroscopically acquired images were acquired by the referring physician. An intraoperative verbal report was not requested. Fluoroscopy was not performed by the undersigned. Fluoroscopy time: 129 seconds. Seven images. Signed: Rj Angelort Verified Date/Time: 07/15/2018 14:44:01 Reading Location: [facility] B1 C013X Ortho Consult Reading Room POCT-GLUCOSE [id number] 12:28:00 Test Item Value Reference Range Interpretation Comments POC-GLUCOSE METER 154 mg/dL 70-110 H TESTED AT [facility] 6720 (BEAKER) (test code = NAMITA CHEN [place] 1538) [address] CARCINOEMBRYONIC ANTIGEN (CEA)2018-07-15 11:45:00 Test Item Value Reference Range Interpretation Comments CARCINOEMBRYONIC ANTIGEN (BEAKER) 766.0 ng/mL 0.0-5.0 H (test code = 685) RAD, CHEST, 1 VIEW, NON [id number] 11:43:00Reason for exam:->pnaShould this be performed at [...] pneumonia depending on clinical setting. Signed: Omar Dianeort Verified Date/Time: 07/15/2018 11:43:39 Reading Location: [facility] C013Y CT Body Reading Room HEPATIC [...] code = 19 U/L [id number]) POCT-GLUCOSE [id number] 08:21:00 Test Item Value Reference Range Interpretation Comments POC-GLUCOSE METER 130 mg/dL 70-110 H TESTED AT [facility] 6720 (BEAKER) (test code = NAMITA Brantley [facility] 1538) [id number] RESPIRATORY PANEL [id number] 07:29:00 Test Item Value Reference Range Interpretation [...] [facility] using the [employer] Respiratory Panel. It is FDA cleared and has been verified and approved by the [facility] for clinical use on nasal swab specimens. It is not FDA-cleared for use on bronchial wash/lavage samples. However, for this sample type, validation was performed and test characteristics were determined and approved, by [facility] [employer] [facility] laboratory for clinical use under the Clinical Laboratory Improvement Amendments (CLIA) of 1988 requirements. Therefore, FDA clearance isnot required. This laboratory is CLIA- certified and [employer] (CAP)-accredited to perform high complexity testing.LEGIONELLA ANTIGEN, [id number] 04:44:00 Test Item Value Reference Range Interpretation Comments L. PNEUMOPHILA Negative - see Negative fo r L. SEROGP 1 UR AG comment pneumophila (BEAKER) (test code serogrou p 1 antigen, = 1156) suggesting no r ecent or current infe ction with this serog roup. Legionellosis c annot be ruled out si nce other serogroup s and species may cau se disease. STREP PNEUMONIAE [id number] 04:43:00 Test Item Value Reference Range Interpretation [...] the detection limit of the test. POCT-GLUCOSE [id number] 01:51:00 Test Item Value Reference Range Interpretation Comments POC-GLUCOSE METER 127 mg/dL 70-110 H TESTED AT [facility] 6720 (BEAKER) (test code = NAMITA CHEN [place] 1538) [address] BASIC METABOLIC [id number] 00:38:00 Test Item Value Reference Range Interpretation [...] FOR DIALYSIS PATIEN TS. RAPID INFLUENZA A&B [id number] 00:32:00 Test Item Value Reference Range Interpretation Comments RAPID INFLUENZA A AG (BEAKER) Negative Negative, Inconclusive (test code = 1622) RAPID INFLUENZA B AG (BEAKER) Negative Negative, Inconclusive (test code = 1623) CBC W/PLT COUNT & AUTO [id number] 22:58:00 Test Item Value Reference Range Interpretation [...] % 0-1 PERCENT (BEAKER) (test code = 2637)
--- NOTE | 2020-12-14 05:05 | ER ---
Nurse's Notes [facility] Name: Shai Gonzalez Jr Age: 60 yrs Sex: Male : 1960 Arrival Date: 12/14/2020 Time: 01:55 Bed 4 Private MD: Diagnosis: Cardiac arrest Presentation: 12/14 01:57 Chief complaint: EMS states: they were toned out for report of pt found unresponsive, bb PD was on scene on their arrival and had initiated CPR. Care prior to arrival: Oral intubation, CPR via thumper. Compressions began prior to arrival. 01:57 Method Of Arrival: EMS: [facility] bb 01:57 Acuity: MARIA INES 1 bb - Family history:: not pertinent. - Hospitalizations: : No recent hospitalization is reported. Screenin:57 Abuse screen: Denies threats or abuse. Nutritional screening: No deficits noted. bb Tuberculosis screening: No symptoms or risk factors identified. Assessment: 01:55 General: Behavior is unresponsive. Pain: Unable to use pain scale. Patient is wh intubated. Patient is unresponsive. Neuro: Level of Consciousness is unresponsive. Cardiovascular: Rhythm is asystole. Cardiovascular:. Respiratory: Ventilator assessment: ET Tube: Ambubag per EMS. GI: Abdomen is round. Derm: Skin is pale, Skin temperature is cool. 01:55 CPR assessment: unresponsive, pupils fixed \T\ dilated, no respiratory effort, intubated, wh Ambu ventilation, pale. Cardiac rhythm is asystole. 05:04 Reassessment: Pt body taken by [facility]. ED Course: 01:55 Patient arrived in ED. cl3 01:57 Patient has correct armband on for positive identification. bb 03:01 Mookie Leos MD is Attending Physician. rn 03:02 Mookie Leos MD is Pronouncing Provider. rn 03:06 Police called [place] [employer] to have an officer notify the [employer] Specialist utilization reviewer about mw2 patient. 03:11 Neftali Zazueta, JUAN M is Primary Nurse. 03:19 Triage completed. bb Administered Medications: No medications were administered Outcome: 05:04 Patient : Time of 03:00 Pronounced by Mookie Leos MD Body to [facility] home. 05:04 Condition: 05:05 Patient left the ED. Signatures: Caren Mancini RN RN bb Mookie Leos MD MD rn Habalo, Winsy, RN RN Elisa, Willem mw2 Jordi Russell cl3 Corrections: (The following items were deleted from the chart) 03:19 03:19 Risk Assessment: [facility]
== END 2020-12-14 05:05 | disposition expired ==
LOC: ER 01:54
PROC: 5A02216 Assistance with Cardiac Output using Other Pump, Continuous (ICD-10-PCS; principal; 2020-12-14)
DX: I46.9 Cardiac arrest, cause unspecified (principal)
CPT/HCPCS: 92950; 99291